=== PATIENT | male | born 1970 ===

== ENCOUNTER 2017-04-29 20:30 | Inpatient (IN) | payer MEDICARE, OTHER ==
--- NOTE | 2017-04-29 20:48 | ED PDOC ---
HPI: Abdomen Time Seen by Provider: 04/29/17 20:41 Chief Complaint (Nursing): GI Problem Chief Complaint (Provider): Abd pain History Per: Patient History/Exam Limitations: no limitations Onset/Duration Of Symptoms: Days (Sat) Outside of [place] travel?: No Current Symptoms Are (Timing): Still Present Additional Complaint(s): Pt. with abd pain, nausea, vomit, nonbloody. Diarrhea, gone now. Weakness all over. No headache. No neck pain, chest pain, dyspnea. No back pain. Has pain to bottom of amputation on right. No vision changes. Cough, white phlegm. Past Medical History Reviewed: Nursing Documentation, Vital Signs Vital Signs: Last Vital Signs Temp 98.6 F 05/01/17 16:00 Pulse 63 05/01/17 16:00 Resp 15 05/01/17 16:00 BP 128/68 05/01/17 16:00 Pulse Ox 98 05/01/17 16:00 - Medical History PMH: Anemia, Diabetes (type II), HTN, Hypercholesterolemia, Hyperlipidemia, Chronic Kidney Disease Denies: Arthritis, CHF, COPD, HIV, Hypothyroidism, Rheumatoid Arthritis - Surgical History Other surgeries: amputation R foot - Family History Family History: States: Unknown Family Hx - Living Arrangements Living Arrangements: With Family - Social History Current smoker - smoking cessation education provided: No Alcohol: None Drugs: Denies - Immunization History Hx Tetanus Toxoid Vaccination: No Hx Influenza Vaccination: No Hx Pneumococcal Vaccination: No - Home Medications Home Medications: Ambulatory Orders Medication Instructions Recorded Pentoxifylline 400 mg PO BID #0 tablet.er 07/03/16 Atenolol 50 mg PO DAILY #0 tablet 10/15/16 Ferrous Sulfate 325 mg PO BID #0 tablet 10/15/16 Gabapentin [Neurontin] 100 mg PO TID #0 cap 10/15/16 Pantoprazole Sodium [Protonix] 40 mg PO DAILY #0 ect 10/15/16 Zolpidem [Ambien] 5 mg PO HS #30 tab 10/15/16 amLODIPine [Norvasc] 5 mg PO DAILY #0 tab 10/15/16 buPROPion [Wellbutrin] 75 mg PO BID #0 tab 10/15/16 cloNIDine [Catapres] 0.3 mg PO Q8 #0 tab 10/15/16 Folic Acid 1 mg PO DAILY 12/31/16 Glipizide [Glipizide ER] 10 mg PO BID 12/01/16 Ibuprofen 800 mg PO Q8 PRN 12/01/16 Multivit,Iron,Min 5/Folic Acid 1 tab PO DAILY 12/01/16 [Strovite Forte Caplet] Omeprazole 1 tab PO DAILY 12/01/16 - Allergies Allergies/Adverse Reactions: Allergies Allergy/AdvReac Type Severity Reaction Status Date / Time Penicillins Allergy RASH Verified 10/06/16 22:07 Review of Systems ROS Statement: Except As Marked, All Systems Reviewed And Found Negative Constitutional: Positive for: Weakness Respiratory: Positive for: Cough Gastrointestinal: Positive for: Nausea, Vomiting, Abdominal Pain, Diarrhea ( gone now) Neurological: Positive for: Weakness Physical Exam - Reviewed Nursing Documentation Reviewed: Yes Vital Signs Reviewed: Yes - Physical Exam Appears: Positive for: Uncomfortable Head Exam: Positive for: ATRAUMATIC, NORMAL INSPECTION, NORMOCEPHALIC Skin: Positive for: Normal Color, Warm, DRY Eye Exam: Positive for: EOMI, Normal appearance, PERRL ENT: Positive for: Normal ENT Inspection. Negative for: Nasal Congestion, Pharyngeal Erythema, Tonsillar Exudate Neck: Positive for: Normal, Painless ROM, Supple Cardiovascular/Chest: Positive for: Regular Rate, Rhythm. Negative for: Edema Respiratory: Positive for: CNT, Normal Breath Sounds Pulses-Dorsalis Pedis (R): 2+ Gastrointestinal/Abdominal: Positive for: Bowel Sounds, Soft, Tenderness ( diffuse). Negative for: Guarding Back: Positive for: Normal Inspection. Negative for: L CVA Tenderness, R CVA Tenderness Extremity: Positive for: Other (R foot amputation; ulcer at base 2cm diameter stage 2 with no dc or erythema.). Negative for: Tenderness, Calf Tenderness Neurologic/Psych: Positive for: Alert, Oriented - Laboratory Results Result Diagrams: 05/01/17 06:20 05/01/17 06:20 Interpretation Of Abn Labs: 17.4 wbc, 2.1 lactate, 19 CO2, BUN 72 and 5.2 Cr, Ca 7.6, Phos 5.5, Mag 0.9 - ECG ECG: Positive for: Interpreted By Me, Viewed By Me ECG Rhythm: Positive for: Normal QRS, Normal ST Segment, Sinus Rhythm O2 Sat by Pulse Oximetry: 99 Pulse Ox Interpretation: Normal - Radiology X-Ray: Interpreted by Me, Viewed By Me X-Ray Interpretation: No Acute Disease - Progress ED Course And Treament: 2300: Stable. Podiatry saw pt. Does not appear to be a infected ulcer. 7: Spoke with Dr. Whitmore. Will admit ICU. Will admit to Dr. Lake as pt. pcp is Dr. Gee. Stable, feeing better, aaox3. Labetolol given. No source of infection identified yet. Will hold antibiotics. Dr. Whitmore to start meds as needed and fu on CT. Considering this not sepsis at this time. - Critical Care Total Time (In Min): 30 Documented Critical Care: Time excludes all time spent performint seperately billable procedures Disposition - Clinical Impression Clinical Impression: Acute on chronic renal insufficiency, Hypertensive urgency, Hypomagnesemia, Abdominal pain, Gastroparesis - Patient ED Disposition Is Patient to be Admitted: Yes Counseled Patient/Family Regarding: Studies Performed, Diagnosis - Disposition Disposition Time: 23:35 Condition: GUARDED - Pt Status Changed To: Hospital Disposition Of: Inpatient - Admit Certification Admit to Inpatient:: After my assessment, the patient will require hospitalization for at least two midnights. This is because of the severity of symptoms shown, intensity of services needed, and/or the medical risk in this patient being treated as an outpatient. - POA Present On Arrival: Poor Glycemic Control, Pressure Ulcer
[2017-04-29] MEDS ORDERED: Sodium Chloride 0.9% 500 ML IV STA ×2 (20:51→22:16)
[2017-04-29 21:45] LABS: BASO # 0.1 K/uL (0.0-0.2); BASO % 0.4 % (0.0-2.0); EOS % 0.2 % (0.0-4.0); HEMATOCRIT 38.8 % (35.0-51.0); LYMPH # 1.6 K/uL (1.0-4.3); LYMPH % 9.1 % (20.0-40.0); MEAN CELL VOLUME 75.4 fl (80.0-94.0); MEAN CORPUSCULAR HEMOGLOBIN 24.5 pg (27.0-31.0); MEAN CORPUSCULAR HGB CONC 32.5 g/dL (33.0-37.0); MEAN PLATELET VOLUME 8.7 fl (7.2-11.7); MONO # 0.9 K/uL (0.0-0.8); MONO % 5.2 % (0.0-10.0); NEUT # 14.8 K/uL (1.8-7.0); NEUT % 85.1 % (50.0-75.0); PLATELET COUNT 242 K/uL (130-400); RED CELL DISTRIBUTION WIDTH 15.4 % (11.5-14.5); WHITE BLOOD COUNT 17.4 K/uL (4.8-10.8)
[2017-04-29 21:49] LABS: VENOUS BLOOD GAS BASE EXCESS 1.7 mmol/L (0.0-2.0); VENOUS BLOOD GAS PCO2 30 mmHg (40-60); VENOUS BLOOD PH 7.51 (7.32-7.43)
--- NOTE | 2017-04-29 21:58 | CP.PCM.CON ---
History of Present Illness - History of Present Illness History of Present Illness: 45 y/o male patient with PMHx of CKD, osteomyelitis of the Right foot, DM II with Neuropathy, bilateral Charcot was seen at bedside ED. Patient presents with abdominal pain, nausea, vomit accompanied by non-bloody diarrhea for 2 days. Patient states that he is seeing Dr. Baez once every Saturday. Patient states that his brother changes dressing to right foot every 2 days with sterile dressing materials. Dressing to Right lower extremity appears clean dry and intact today. Patient is ambulating in a [place] boot to right lower extremity. Patient denies of any trauma or recent travel. Review of Systems - Review of Systems All systems: reviewed and no additional remarkable complaints except - Constitutional Constitutional: As Per HPI Past Patient History - Past Medical History & Family History Past Medical History?: Yes - Past Social History Alcohol: None Drugs: Denies - CARDIAC Hx Congestive Heart Failure: No Hx Hypercholesterolemia: Yes Hx Hypertension: Yes - PULMONARY Hx Chronic Obstructive Pulmonary Disease (COPD): No - NEUROLOGICAL Hx Neurological Disorder: No - HEENT Hx HEENT Problems: No - RENAL Hx Chronic Kidney Disease: Yes - ENDOCRINE/METABOLIC Hx Hypothyroidism: No - HEMATOLOGICAL/ONCOLOGICAL Hx Anemia: Yes Hx Human Immunodeficiency Virus (HIV): No - INTEGUMENTARY Hx Dermatological Problems: Yes - MUSCULOSKELETAL/RHEUMATOLOGICAL Hx Arthritis: No Hx Rheumatoid Arthritis: No - GASTROINTESTINAL Hx Gastrointestinal Disorders: No - GENITOURINARY/GYNECOLOGICAL Hx Genitourinary Disorders: No - PSYCHIATRIC Hx Psychophysiologic Disorder: No Hx Substance Use: No - SURGICAL HISTORY Hx Amputation: Yes (Partial right BTK) - ANESTHESIA Hx Anesthesia: Yes Hx Anesthesia Reactions: No Hx Malignant Hyperthermia: No Meds Allergies/Adverse Reactions: Allergies Allergy/AdvReac Type Severity Reaction Status Date / Time Penicillins Allergy RASH Verified 10/06/16 22:07 - Medications Medications: Current Medications Sodium Chloride (Sodium Chloride 0.9%) 500 mls @ 250 mls/hr IV .Q2H STA Stop: 04/29/17 22:50 Physical Exam - Head Exam Head Exam: ATRAUMATIC - Extremities Exam Additional comments: Right lower extremity exam DERM: Open wound noted to the lateral aspect of right foot measuring 3cm x 2cm x 0.3cm, wound base is mixture of fibrotic and granular, No pus drainage noted. mild serous drainage noted, no probe to bone, (-) malodor, (-) sinus track, (-) tunneling. No signs consistent with acute infection is noted from the right lower extremity. VASC: No pedal pulses, Pedal/ankle edema noted, warm to touch Ortho: history of TMA, limited ankle and STJ ROM Neuro: Absent protective sensation secondary to neuropathy - Neurological Exam Neurological exam: Alert, Oriented x3 - Psychiatric Exam Psychiatric exam: Normal Affect, Normal Mood - Skin Skin Exam: Normal Color, Warm Results - Vital Signs Recent Vital Signs: Last Vital Signs Temp 97.7 F 04/29/17 20:38 Pulse 96 H 04/29/17 20:38 Resp 20 04/29/17 20:38 BP 205/119 H 04/29/17 20:38 Pulse Ox 99 04/29/17 21:12 - Labs Result Diagrams: 04/29/17 21:30 Labs: Laboratory Results - last 24 hr 04/29/17 04/29/17 21:30 21:46 WBC 17.4 H D RBC 5.15 Hgb 12.6 D Hct 38.8 MCV 75.4 L D MCH 24.5 L MCHC 32.5 L RDW 15.4 H Plt Count 242 D MPV 8.7 Neut % (Auto) 85.1 H Lymph % (Auto) 9.1 L [place] % (Auto) 5.2 Eos % (Auto) 0.2 Baso % (Auto) 0.4 Neut # 14.8 H Lymph # 1.6 [place] # 0.9 H Eos # 0.0 Baso # 0.1 pO2 62 H VBG pH 7.51 H VBG pCO2 30 L VBG HCO3 26.2 VBG Total CO2 24.8 VBG O2 Sat (Calc) 96.2 H VBG Base Excess 1.7 VBG Potassium 6.0 H Sodium 143.0 Chloride 109.0 H Glucose 241 H Lactate 2.1 FiO2 21.0 Venous Blood Potassium 6.0 H Assessment & Plan - Assessment and Plan (Free Text) Assessment: 45 y/o male patient with Charcot right foot with diabetic ulceration to lateral ankle Plan: Patient was seen, evaluated and treated with all questions and concerns addressed labs and vitals reviewed (97.7F) discussed in detail with Dr. Baez Wound to right foot was cleansed with sterile normal saline; Betadine, DSD was applied to right foot. No clinical evidence of acute infection to Right foot wound Podiatry will follow as long as patient remains in hospital
[2017-04-29] MEDS ORDERED: Iohexol 240 (50 ml) ONE (21:59)
[2017-04-29 22:03] LABS: ALB/GLOB RATIO 0.9 (1.0-2.1); BILIRUBIN,TOTAL 0.8 mg/dl (0.2-1.3); CALCIUM 7.6 mg/dL (8.4-10.2); PHOSPHOROUS 5.5 mg/dl (2.5-4.5); TOTAL PROTEIN 9.1 G/DL (6.3-8.2)
[2017-04-29 22:08] LABS: POTASSIUM 5.3 MMOL/L (3.6-5.0)
[2017-04-29 22:13] LABS: TROPONIN I 0.019 ng/mL (0.00-0.120)
[2017-04-29] MEDS ORDERED: Magnesium Sulfate 2 gm/50 ml 2 GM/50 ML BAG ONE (22:18)
[2017-04-29 22:21] LABS: MAGNESIUM 0.9 MG/DL (1.6-2.3)
[2017-04-29 22:29] LABS: BASOPHIL 1 % (0-2); NEUTROPHIL 89 % (42-75); TOTAL CELLS COUNTED 100
[2017-04-29] MEDS ORDERED: Magnesium Sulfate 2 gm/50 ml 2 GM/50 ML BAG IVPB ONE (22:45)
[2017-04-29] MEDS ORDERED: Labetalol 5mg/ml (4ml) IVP STA (23:03)
[2017-04-29] MEDS ORDERED: Labetalol 5 mg/ml Inj 20ML IVP STA (23:09)
[2017-04-29 23:46] LABS: PARTIAL THROMBOPLASTIN TIME 26.9 SECONDS (23.3-32.5)
--- NOTE | 2017-04-29 23:48 | CP.PCM.CON ---
History of Present Illness - History of Present Illness History of Present Illness: CC: Abd pain, n/v/d HPI: This is a 45 y/o male with MHx significant for CKD4 (Cr 2.3-2.4) DM2 with LE wounds and Hx osteomyelitis, HTN, and PAD who comes in acute onset of abd pain, n/v. Vomiting is nb/nb. Had diarrhea, but that is resolved. Has generalized weakness. Symptoms ongoing since earlier today. Denies AYALA, CP, or WRIGHT. His LE wounds were evaluated by podiatry. Patient without f/c. ROS: 14 systems negative other than HPI MHx: CKD4 (Cr 2.3-2.4) DM2 with LE wounds and Hx of osteomyelitis, HTN, and PAD SHx: R foot partial amputation Allergies: PCN Medications: As per med rec Family Hx: No relevant findings Social Hx: Lives at home, no tobacco, no EtOH Past Patient History - Past Medical History & Family History Past Medical History?: Yes - Past Social History Alcohol: None Drugs: Denies - CARDIAC Hx Congestive Heart Failure: No Hx Hypercholesterolemia: Yes Hx Hypertension: Yes - PULMONARY Hx Chronic Obstructive Pulmonary Disease (COPD): No - NEUROLOGICAL Hx Neurological Disorder: No - HEENT Hx HEENT Problems: No - RENAL Hx Chronic Kidney Disease: Yes - ENDOCRINE/METABOLIC Hx Hypothyroidism: No - HEMATOLOGICAL/ONCOLOGICAL Hx Anemia: Yes Hx Human Immunodeficiency Virus (HIV): No - INTEGUMENTARY Hx Dermatological Problems: Yes - MUSCULOSKELETAL/RHEUMATOLOGICAL Hx Arthritis: No Hx Rheumatoid Arthritis: No - GASTROINTESTINAL Hx Gastrointestinal Disorders: No - GENITOURINARY/GYNECOLOGICAL Hx Genitourinary Disorders: No - PSYCHIATRIC Hx Psychophysiologic Disorder: No Hx Substance Use: No - SURGICAL HISTORY Hx Amputation: Yes (Partial right BTK) - ANESTHESIA Hx Anesthesia: Yes Hx Anesthesia Reactions: No Hx Malignant Hyperthermia: No Meds Allergies/Adverse Reactions: Allergies Allergy/AdvReac Type Severity Reaction Status Date / Time Penicillins Allergy RASH Verified 10/06/16 22:07 - Medications Medications: Current Medications Sodium Chloride (Sodium Chloride 0.9%) 500 mls @ 250 mls/hr IV .Q2H STA Stop: 04/30/17 00:15 Physical Exam - Constitutional Appears: Chronically Ill - Head Exam Head Exam: ATRAUMATIC, NORMOCEPHALIC - Eye Exam Eye Exam: EOMI, PERRL - ENT Exam ENT Exam: Mucous Membranes Dry - Neck Exam Neck exam: Positive for: Full Rom - Respiratory Exam Respiratory Exam: Clear to Auscultation Bilateral, NORMAL BREATHING PATTERN - Cardiovascular Exam Cardiovascular Exam: REGULAR RHYTHM, +S1, +S2 - GI/Abdominal Exam GI & Abdominal Exam: Normal Bowel Sounds, Soft, Tenderness - Extremities Exam Extremities exam: Positive for: full ROM Additional comments: R foot/ankle DM ulcer under dressing - Neurological Exam Neurological exam: Alert, CN II-XII Intact, Oriented x3 - Psychiatric Exam Psychiatric exam: Normal Affect, Normal Mood - Skin Skin Exam: Dry, Warm Results - Vital Signs Recent Vital Signs: Last Vital Signs Temp 97.7 F 04/29/17 20:38 Pulse 76 04/29/17 23:20 Resp 17 04/29/17 23:20 BP 198/120 H 04/29/17 23:20 Pulse Ox 99 04/29/17 23:39 - Labs Result Diagrams: 04/29/17 21:30 04/29/17 21:30 - EKG Data EKG Interpreted by: Myself EKG shows normal: Sinus rhythm Rate: Normal - EKG Data When Compared to Previous EKG: No Significant Change - Imaging and Cardiology CT scan - abdomen Status: Pending Assessment & Plan (1) Gastroparesis Assessment and Plan: 46 y/o male with multiple conditions who is presenting with n/v, ?diarrhea -- likely diabetic gastroparesis. No obvious evidence of GI infection. 1) Gastroparesis -NPO -IVF -Will give Zofran and Reglan IV PRN for now -CT pending 2) Elevated WC -- no clear evidence of infection; may be reactive -Will monitor, if any sign of infection, further w/u and antibiotics 3) DM2 + foot ulcer -Foot ulcer being followed by podiatry -SSI with accuchecks for now, given NPO 4) HTN -- acutely worse, likely due to persistent n/v -Control n/v -Labetolol IV PRN for elevation > 190 5) DVT PPx -- Hold for right now, until BP normalized; difficult to do LE SCDs because of ulcers Status: Acute (2) Leukocytosis Status: Acute (3) Diabetic foot ulcer Status: Acute (4) Acute on chronic renal insufficiency Status: Acute (5) Hyperlipidemia Status: Chronic (6) Hypertension Status: Chronic (7) Type 2 diabetes mellitus Status: Chronic (8) DVT prophylaxis Status: Acute
[2017-04-30] MEDS ORDERED: Nicardipine 20 MG/200 ML 20 MG/200 ML BAG IV ONE ×2 (00:01→23:51)
[2017-04-30] MEDS ORDERED: Sodium Chloride 0.9% 1,000 ML IV SCH (00:15)
--- NOTE | 2017-04-30 00:49 | CT ---
EXAM: CT Abdomen and Pelvis With Intravenous Contrast CLINICAL HISTORY: 46 years old, male; Pain; Abdominal pain; Generalized TECHNIQUE: Axial computed tomography images of the abdomen and pelvis with intravenous contrast. This CT exam was performed using one or more of the following dose reduction techniques: automated exposure control, adjustment of the mA and/or kV according to patient size, and/or use of iterative reconstruction technique. Coronal and sagittal reformatted images were created and reviewed. EXAM DATE/TIME: Exam ordered 04/29/2017 8:51 PM COMPARISON: CT - ABD PELVIS PO CONTRAST ONLY 10/07/2016 1:54:41 AM FINDINGS: Lower thorax: Air in the esophagus in keeping with reflux. Moderate hiatus hernia. There is a small pericardial effusion which is decreased compared to study of October 2016. Calcifications in keeping with coronary artery disease. The previous finding at the left lung base is no longer evident. No masses are visualized in the bilateral lungs in their included portions. ABDOMEN: Liver: There has been interval decrease in size of the liver which now measures 22.6 cm whereas previously it was over 26 cm. This represents improving but persistent hepatomegaly. Gallbladder and bile ducts: Unremarkable. No calcified stones. No ductal dilation. Pancreas: Unremarkable. No mass. No ductal dilation. Spleen: Unremarkable. No splenomegaly. Adrenals: Unremarkable. No mass. Kidneys and ureters: There is extensive bilateral perinephric stranding, correlation for infection is recommended, this finding was also present on the previous examination. There is no hydronephrosis seen. Differential does include passage of a renal stone. No ureteral stones are seen noting that punctate stones or noncalcified stones may not be well seen on CT. Stomach and bowel: No abdominal wall hernias containing bowel. Oral contrast has reached the pelvis, there is no evidence of pathologic bowel dilatation. Noted incidentally that there is a mobile cecal mesentery, at the present time there is no evidence to suggest bowel volvulus. There is slightly increased fluid content in unremarkable caliber small bowel, enteritis is a consideration. Seen coronal image 62 and adjacent, evaluation of the duodenum is noted and duodenal wall thickening is medial border near the pancreas, consider followup. Appendix: No findings to suggest acute appendicitis. PELVIS: Bladder: Bladder is partly collapsed limiting evaluation. Reproductive: Prostate 5.0 cm, prominent, this is increased from previous and laboratory correlation and consideration of further evaluation is recommended. There is suggestion coronal image 84 of some focal hypoattenuation in the right seminal vesicle. ABDOMEN and PELVIS: Intraperitoneal space: Unremarkable. No free air. No significant fluid collection. Bones/joints: No acute fracture. No dislocation. Soft tissues: See above. Vasculature: Scattered atherosclerotic calcifications. No abdominal aortic aneurysm. Lymph nodes: --Previous study dated October 07, 2016, noting that that study described adenopathy in the right iliac/inguinal distribution, details of any interval treatment or a pathology reports are not available and in particular it is not known whether neoplasm has been documented or treated in the interim--. There remains right external iliac adenopathy, however this is greatly diminished compared to the study of October 2016. A round (suspicious) morphology right inguinal node is also identified. Left external iliac nodes do not meet size criteria for pathologic enlargement. Para-aortic nodes and aortocaval nodes best seen in the coronal plane are not definitely increased. IMPRESSION: Persistent bilateral perinephric stranding , no ureteral calculi visualized. Correlation for infection or inflammatory pathology again recommended. Interval improvement in the previously seen severe right external iliac adenopathy although with persistence of some enlarged nodes. Please correlate with interim treatments and/or diagnostic procedures which are not available at this time. Prominent prostate which is increased in size from the study of approximately 6 months previous. Question of hypoattenuation in the right seminal vesicle. Evaluation for possibility of neoplasm or infection is recommended. Duodenum as above. Improvement in hepatomegaly. Other findings as above. Please note that the absence of intravenous contrast greatly limits evaluation of the parenchymal organs and paucity of oral contrast throughout the majority of the GI tract does limit evaluation of the GI tract.
[2017-04-30 05:31] LABS: BASO # 0.1 K/uL (0.0-0.2); BASO % 0.7 % (0.0-2.0); EOS # 0.1 K/uL (0.0-0.7); EOS % 0.3 % (0.0-4.0); HEMATOCRIT 37.7 % (35.0-51.0); LYMPH # 2.1 K/uL (1.0-4.3); LYMPH % 11.4 % (20.0-40.0); MEAN CELL VOLUME 76.5 fl (80.0-94.0); MEAN CORPUSCULAR HEMOGLOBIN 24.4 pg (27.0-31.0); MEAN PLATELET VOLUME 8.8 fl (7.2-11.7); MONO % 5.5 % (0.0-10.0); NEUT % 82.1 % (50.0-75.0); NRBC % 0.1 % (0.0-0.0); RED CELL DISTRIBUTION WIDTH 15.7 % (11.5-14.5); WHITE BLOOD COUNT 18.3 K/uL (4.8-10.8)
[2017-04-30 05:47] LABS: CALCIUM 7.1 mg/dL (8.4-10.2); POTASSIUM 4.3 MMOL/L (3.6-5.0)
--- NOTE | 2017-04-30 08:01 | CARD ---
APPROVED REPORT EKG Measurement Heart [id number] <Conclusion> Normal sinus rhythm Possible Left atrial enlargement Borderline ECG
[2017-04-30] MEDS: Pantoprazole 40 mg EC Tab PO SCH (08:22)
[2017-04-30 08:31] LABS: RBC URINE 19 /hpf (0-3); URINE BACTERIA RARE (<OCC); URINE BILIRUBIN NEGATIVE (NEGATIVE); URINE BLOOD MODERATE (NEGATIVE); URINE COLOR YELLOW (YELLOW); URINE GLUCOSE (UA) >=500 mg/dL (Normal); URINE KETONE NEGATIVE (NEGATIVE); URINE LEUKOCYTE ESTERASE NEG Leu/uL (Negative); URINE PROTEIN >=500 mg/dL (NEGATIVE); URINE UROBILINOGEN 0.2-1.0 mg/dL (0.2-1.0); WBC URINE 2 /hpf (0-5)
--- NOTE | 2017-04-30 09:24 | RAD ---
HISTORY: Sepsis Patient COMPARISON: 12/01/2016. FINDINGS: LUNGS: The lungs are clear. PLEURA: No significant pleural effusion identified, no pneumothorax apparent. CARDIOVASCULAR: There is persistent mild cardiomegaly. OSSEOUS STRUCTURES: No significant abnormalities. VISUALIZED UPPER ABDOMEN: Normal. OTHER FINDINGS: None. IMPRESSION: No active pulmonary disease.
--- NOTE | 2017-04-30 11:20 | CP.PCM.PN ---
Subjective - Date & Time of Evaluation Date of Evaluation: 04/30/17 Time of Evaluation: 11:17 - Subjective Subjective: 46 year old male was seen resting at bedside for right lower extremity diabetic ulcer. Patient denies any pain to his right lower extremity. Patient states he has some nausea. Objective - Vital Signs/Intake and Output Vital Signs (last 24 hours): Temp Pulse Resp BP Pulse Ox 98.7 F 86 12 157/91 H 100 04/30/17 07:43 04/30/17 10:00 04/30/17 10:00 04/30/17 10:00 04/30/17 10:00 Intake and Output: 04/30/17 04/30/17 06:59 18:59 Intake Total 120 Output Total 100 400 Balance -100 -280 - Medications Medications: Current Medications Amlodipine Besylate (Norvasc) 5 mg PO DAILY [facility] Atenolol (Tenormin) 50 mg PO DAILY [facility] Last Admin: 04/30/17 08:22 Dose: 50 mg Bupropion HCl (Wellbutrin) 75 mg PO BID [facility] Last Admin: 04/30/17 08:23 Dose: 75 mg Clonidine HCl (Catapres) 0.1 mg PO BID [facility] Gabapentin (Neurontin) 100 mg PO TID [facility] Last Admin: 04/30/17 08:22 Dose: 100 mg Sodium Chloride (Sodium Chloride 0.9%) 1,000 mls @ 75 mls/hr IV [id number] [facility] Stop: 04/30/17 13:34 Last Admin: 04/30/17 02:23 Dose: 75 mls/hr Metoclopramide HCl (Reglan) 10 mg IVP Q6H PRN PRN Reason: Nausea/Vomiting Last Admin: 04/30/17 02:22 Dose: 10 mg Morphine Sulfate (Morphine) 2 mg IVP Q4H PRN PRN Reason: Pain, moderate (4-7) Morphine Sulfate (Morphine) 4 mg IVP Q4H PRN PRN Reason: Pain, severe (8-10) Morphine Sulfate (Morphine) 1 mg IVP Q4 PRN PRN Reason: Pain, Mild (1-3) Ondansetron HCl (Zofran Inj) 4 mg IVP Q6H PRN PRN Reason: Nausea/Vomiting Last Admin: 04/30/17 09:59 Dose: 4 mg Pantoprazole Sodium (Protonix Ec Tab) 40 mg PO DAILY [facility] Last Admin: 04/30/17 08:22 Dose: 40 mg Pentoxifylline (Pentoxil) 400 mg PO BID [facility] Last Admin: 04/30/17 08:22 Dose: 400 mg - Labs Labs: 04/30/17 04:30 04/30/17 04:30 PT 11.5 SECONDS (9.6-11.2) H 04/29/17 21:30 INR 1.11 (0.92-1.08) H 04/29/17 21:30 APTT 26.9 SECONDS (23.3-32.5) 04/29/17 21:30 - Extremities Exam Additional comments: Right lower extremity focused exam: VASC: No pedal pulses noted, edema noted to the right foot/ankle, warm to touch DERM: Open wound noted to the lateral aspect of right foot measuring approximately 3cm x 2cm x 0.3cm, base is a mixture of granular and fibrotic tissue. No purulent drainage noted. mild serous drainage noted, no probe to bone , no malodor, no sinus track, no tunneling. No signs consistent with acute infection is noted from the right lower extremity. Ortho: history of TMA, limited ankle and STJ ROM Neuro: absent protective sensation secondary to neuropathy - Neurological Exam Neurological Exam: Alert, Awake, Oriented x3 - Psychiatric Exam Psychiatric exam: Normal Affect, Normal Mood Assessment and Plan - Assessment and Plan (Free Text) Assessment: 45 y/o male patient with Charcot right foot with diabetic ulceration to lateral ankle Plan: Patient examined and evaluated chart,labs and vitals reviewed (98.7F) discussed in detail with Dr. Baez right foot wound dressed with Betadine, DSD No clinical evidence of acute infection to Right foot wound Podiatry will follow as long as patient remains in hospital
[2017-04-30] MEDS ORDERED: Povidone Iodine Topical 10% Sol TOP ONE (11:27)
[2017-04-30] MEDS ORDERED: Povidone Iodine Topical 10% Sol ONE (11:32)
--- NOTE | 2017-04-30 15:06 | RAD ---
PROCEDURE: Right Ankle Radiographs. HISTORY: amputation hx COMPARISON: 07/10/2016. FINDINGS: BONES: Postoperative findings following an midfoot amputation. Remaining neuropathic/ Charcot foot and ankle. JOINTS: Progressive erosive changes primarily affecting talotibial and talofibular joint. SOFT TISSUES: Persistent soft tissue changes with foci of deep ulceration. OTHER FINDINGS: None. IMPRESSION: Findings suggestive of osteomyelitis involving right ankle.
--- NOTE | 2017-04-30 16:04 | CP.CCUPN ---
CCU Subjective - Physician Review Subjective (Free Text): 04/30/17 16:18 The Patient was seen and examined at the bedside in the ER, Medical records reviewed, all clinical/lab/hemodynamic/radiographic data were reviewed and management issues were discussed and formulated, Events reviewed Mr Hussein is a 45 years old male with PMHx significant for HTN, PVD CKD4 (Cr 2.3-2.4) DM2 with LE wounds and Hx osteomyelitis. who presented to Emergency department with acute onset of abdominal pain, N/V and generalized weakness, Symptoms of one day duration. He was found to have BP of 205/119, admitted to the ICU with Hypertensive urgency and Gastroparesis Started on cardene drip, and this morning his home medications resumed and now off the drip and BP fairly controlled. CCU Objective - Vital Signs / Intake & Output Vital Signs (Last 4 hours): Vital Signs Pulse Resp BP Pulse Ox 04/30/17 14:57 80 188/108 H 04/30/17 14:00 81 10 L 188/106 H 95 Intake and Output (Last 8hrs): Intake & Output 04/30/17 04/30/17 04/30/17 06:59 14:59 22:59 Intake Total 360 Output Total 100 800 Balance -100 -440 Intake: Oral 360 Output: Urine 800 Urine, Voided 800 Emesis 100 - Physical Exam Head: Positive for: Atraumatic, Normocephalic Pupils: Positive for: PERRL. Negative for: Sluggish, Non-Reactive Extroacular Muscles: Positive for: EOMI Conjunctiva: Positive for: Normal Mouth: Positive for: Moist Mucous Membranes Nose (Internal): Positive for: Normal Inspection Neck: Positive for: Normal Range of Motion, Trachea Midline. Negative for: Meningeal Signs, MIDLINE TENDERNESS, Paraspinal Tenderness, JVD, Lymphadenopathy , Bruit, Other Respiratory/Chest: Positive for: Clear to Auscultation, Good Air Exchange. Negative for: Respiratory Distress, Accessory Muscle Use Cardiovascular: Positive for: Regular Rate and Rhythm, Normal S1, S2. Negative for: Murmurs, Irregular Rhythm, Peripheal Pulses Present, Tachycardic, Bradycardic Abdomen: Positive for: Normal Bowel Sounds. Negative for: Tenderness, Distention, Peritoneal Signs Upper Extremity: Positive for: Normal Inspection, NORMAL PULSES, Capillary Refill < 2s. Negative for: Cyanosis, Edema Lower Extremity: Positive for: Normal Inspection, NORMAL PULSES, Capillary Refill < 2 s. Negative for: Edema, CALF TENDERNESS Neurological: Positive for: GCS=15, CN II-XII Intact, Speech Normal, Motor Func Grossly Intact, Normal Sensory Function Psychiatric: Positive for: Alert, Oriented x 3, Normal Insight, Normal Concentration, Normal Affect, Normal Mood. Negative for: Anxious, Agitated - Medications Active Medications: Active Medications Generic Name Dose Route Start Last Admin Trade Name Freq PRN Reason Stop Dose Admin Amlodipine Besylate 5 mg 04/30/17 11:15 04/30/17 11:34 Norvasc PO 5 mg DAILY BAHSIR Administration Atenolol 50 mg 04/30/17 09:00 04/30/17 08:22 Tenormin PO 50 mg DAILY BASHIR Administration Bupropion HCl 75 mg 04/30/17 09:00 04/30/17 08:23 Wellbutrin PO 75 mg BID BASHIR Administration Clonidine HCl 0.3 mg 04/30/17 14:10 04/30/17 14:57 Catapres PO 0.3 mg TID BASHIR Administration Gabapentin 100 mg 04/30/17 09:00 04/30/17 14:16 Neurontin PO Not Given TID [facility] Heparin Sodium (Porcine) 5,000 units 04/30/17 11:30 04/30/17 13:18 Heparin SC 5,000 units Q12 BASHIR Administration Protocol Insulin Human Regular 1 units 04/30/17 16:30 Humulin R SC ACHS [facility] Protocol Metoclopramide HCl 10 mg 04/30/17 00:05 04/30/17 13:14 Reglan IVP 10 mg Q6H PRN Administration Nausea/Vomiting Morphine Sulfate 2 mg 04/30/17 00:05 Morphine IVP Q4H PRN Pain, moderate (4-7) Morphine Sulfate 4 mg 04/30/17 00:05 Morphine IVP Q4H PRN Pain, severe (8-10) Morphine Sulfate 1 mg 04/30/17 00:10 Morphine IVP Q4 PRN Pain, Mild (1-3) Ondansetron HCl 4 mg 04/30/17 00:05 04/30/17 09:59 Zofran Inj IVP 4 mg Q6H PRN Administration Nausea/Vomiting Pantoprazole Sodium 40 mg 04/30/17 09:00 04/30/17 08:22 Protonix Ec Tab PO 40 mg DAILY BASHIR Administration Pentoxifylline 400 mg 04/30/17 09:00 04/30/17 08:22 Pentoxil PO 400 mg BID BASHIR Administration - Patient Studies Lab Studies: Lab Studies 04/30/17 04/30/17 04/30/17 Range/Units 11:01 07:08 04:30 WBC (4.8-10.8) K/uL RBC (4.40-5.90) Mil/uL Hgb (12.0-18.0) g/dL Hct (35.0-51.0) % MCV (80.0-94.0) fl MCH (27.0-31.0) pg MCHC (33.0-37.0) g/dL RDW (11.5-14.5) % Plt Count (130-400) K/uL MPV (7.2-11.7) fl Neut % (Auto) (50.0-75.0) % Lymph % (Auto) (20.0-40.0) % Luce % (Auto) (0.0-10.0) % Eos % (Auto) (0.0-4.0) % Baso % (Auto) (0.0-2.0) % Neut # (1.8-7.0) K/uL Lymph # (1.0-4.3) K/uL Luce # (0.0-0.8) K/uL Eos # (0.0-0.7) K/uL Baso # (0.0-0.2) K/uL Sodium 145 (132-148) mmol/l Potassium 4.3 (3.6-5.0) MMOL/L Chloride 110 H (98-107) mmol/L Carbon Dioxide 21 L (22-30) mmol/L Anion Gap 18 (10-20) BUN 69 H (9-20) mg/dl Creatinine 5.3 H (0.8-1.5) mg/dL Est GFR ( Amer) 14 Est GFR (Non-Af Amer) 12 POC Glucose (mg/dL) 231 H 214 H (65-110) mg/dL Random Glucose 228 H (75-110) mg/dL Calcium 7.1 L (8.4-10.2) mg/dL 04/30/17 04/30/17 Range/Units 04:30 00:20 WBC 18.3 H (4.8-10.8) K/uL RBC 4.93 (4.40-5.90) Mil/uL Hgb 12.1 (12.0-18.0) g/dL Hct 37.7 (35.0-51.0) % MCV 76.5 L (80.0-94.0) fl MCH 24.4 L (27.0-31.0) pg MCHC 32.0 L (33.0-37.0) g/dL RDW 15.7 H (11.5-14.5) % Plt Count 237 (130-400) K/uL MPV 8.8 (7.2-11.7) fl Neut % (Auto) 82.1 H (50.0-75.0) % Lymph % (Auto) 11.4 L (20.0-40.0) % Luce % (Auto) 5.5 (0.0-10.0) % Eos % (Auto) 0.3 (0.0-4.0) % Baso % (Auto) 0.7 (0.0-2.0) % Neut # 15.0 H (1.8-7.0) K/uL Lymph # 2.1 (1.0-4.3) K/uL Luce # 1.0 H (0.0-0.8) K/uL Eos # 0.1 (0.0-0.7) K/uL Baso # 0.1 (0.0-0.2) K/uL Sodium (132-148) mmol/l Potassium (3.6-5.0) MMOL/L Chloride (98-107) mmol/L Carbon Dioxide (22-30) mmol/L Anion Gap (10-20) BUN (9-20) mg/dl Creatinine (0.8-1.5) mg/dL Est GFR ( Amer) Est GFR (Non-Af Amer) POC Glucose (mg/dL) 197 H (65-110) mg/dL Random Glucose (75-110) mg/dL Calcium (8.4-10.2) mg/dL Laboratory Results - last 24 hr 04/30/17 04/30/17 04/30/17 00:20 04:30 04:30 WBC 18.3 H RBC 4.93 Hgb 12.1 Hct 37.7 MCV 76.5 L MCH 24.4 L MCHC 32.0 L RDW 15.7 H Plt Count 237 MPV 8.8 Neut % (Auto) 82.1 H Lymph % (Auto) 11.4 L Luce % (Auto) 5.5 Eos % (Auto) 0.3 Baso % (Auto) 0.7 Neut # 15.0 H Lymph # 2.1 Luce # 1.0 H Eos # 0.1 Baso # 0.1 Sodium 145 Potassium 4.3 Chloride 110 H Carbon Dioxide 21 L Anion Gap 18 BUN 69 H Creatinine 5.3 H Est GFR ( Amer) 14 Est GFR (Non-Af Amer) 12 POC Glucose (mg/dL) 197 H Random Glucose 228 H Calcium 7.1 L 04/30/17 04/30/17 07:08 11:01 WBC RBC Hgb Hct MCV MCH MCHC RDW Plt Count MPV Neut % (Auto) Lymph % (Auto) Luce % (Auto) Eos % (Auto) Baso % (Auto) Neut # Lymph # Luce # Eos # Baso # Sodium Potassium Chloride Carbon Dioxide Anion Gap BUN Creatinine Est GFR ( Amer) Est GFR (Non-Af Amer) POC Glucose (mg/dL) 214 H 231 H Random Glucose Calcium Fingerstick Blood Sugar Results: 191 Review of Systems - Cardiovascular Cardiovascular: absent: As Per HPI, Acrocyanosis, Chest Pain, Chest Pain at Rest , Chest Pain with Activity, Claudication, Diaphoresis, Dyspnea, Dyspnea on Exertion, Edema, Irregular Heart Rhythm, Pain Radiating to Arm/Neck/Jaw, Leg Edema, Leg Ulcers, Lightheadedness, Orthopnea, Palpitations, Paroxysmal Nocturnal Dyspnea, Pedal Edema, Radiating Pain, Rapid Heart Rate, Slow Heart Rate, Syncope, Other, UNREMARKABLE - Respiratory Respiratory: absent: As Per HPI, Cough, Dyspnea, Hemoptysis, Dyspnea on Exertion , Wheezing, Snoring, Stridor, Pain on Inspiration, Chest Congestion, Excessive Mucous Production, Change in Mucous Color, Pain with Coughing, Other, UNREMARKABLE - Gastrointestinal Gastrointestinal: Abdominal Pain, Dyspepsia Critical Care Progress Note - Extremities/Vascular Does the Patient have a Central Venous Catheter?: No Does the Patient need a Central Venous Catheter?: No Does the Patient have a Adkins Catheter?: No Does the Patient need a Adkins Catheter?: No - Nutrition Nutrition: Nutrition Category Date Time Status Heart Healthy Diet [DIET] Diets 04/30/17 Breakfast Active Assessment/Plan (1) Hypertensive urgency Current Visit: Yes Status: Acute Comment: Resume homes medication (Norvasc, Clonidine and Atenolol) Wean Cardene drip Labetolol IV PRN (2) ESRD (end stage renal disease) on dialysis Current Visit: Yes Status: Acute (3) Gastroparesis Current Visit: Yes Status: Acute Comment: Clear liquid, advance as tolerate IVF Rrglan PRN Zofran F/up official ABD CT (4) Diabetic foot ulcer Current Visit: No Status: Acute Comment: Podiatry consult Wound care Pain control (5) Hyperglycemia due to type 1 diabetes mellitus Current Visit: No Status: Acute Comment: Tight glycemic control, RISS coverage (6) DVT prophylaxis Current Visit: No Status: Acute Comment: Start SQ Heparin
[2017-04-30] MEDS: Insulin Regular 100 units/ml SC SCH ×2 (16:45→21:53)
[2017-05-01] MEDS: Sodium Chloride 0.9% 1,000 ML IV SCH ×2 (02:37→16:34)
[2017-05-01] MEDS: Insulin Regular 100 units/ml SC SCH ×4 (06:37→22:08)
--- NOTE | 2017-05-01 06:52 | CP.PCM.PN ---
Subjective - Date & Time of Evaluation Date of Evaluation: 05/01/17 Time of Evaluation: 06:52 - Subjective Subjective: 46 year old male was seen resting at bedside for right lower extremity diabetic ulcer. Patient denies any pain to his right lower extremity. Patient states feels better today. Objective - Vital Signs/Intake and Output Vital Signs (last 24 hours): Temp Pulse Resp BP Pulse Ox 97.8 F 67 14 131/76 97 05/01/17 04:00 05/01/17 05:00 05/01/17 05:00 05/01/17 05:00 05/01/17 05:00 Intake and Output: 04/30/17 05/01/17 18:59 06:59 Intake Total 1500 1030 Output Total 1000 1100 Balance 500 -70 - Medications Medications: Current Medications Amlodipine Besylate (Norvasc) 5 mg PO DAILY [facility] Last Admin: 04/30/17 11:34 Dose: 5 mg Atenolol (Tenormin) 50 mg PO DAILY [facility] Last Admin: 04/30/17 08:22 Dose: 50 mg Bupropion HCl (Wellbutrin) 75 mg PO BID [facility] Last Admin: 04/30/17 17:19 Dose: 75 mg Clonidine HCl (Catapres) 0.3 mg PO TID [facility] Last Admin: 04/30/17 16:47 Dose: 0.3 mg Gabapentin (Neurontin) 100 mg PO TID [facility] Last Admin: 04/30/17 16:46 Dose: 100 mg Heparin Sodium (Porcine) (Heparin) 5,000 units SC Q12 [facility] PRN Reason: Protocol Last Admin: 04/30/17 20:56 Dose: 5,000 units Sodium Chloride (Sodium Chloride 0.9%) 1,000 mls @ 75 mls/hr IV .[id number] [facility] Stop: 05/02/17 02:35 Last Admin: 05/01/17 02:37 Dose: 75 mls/hr Insulin Human Regular (Humulin R) 1 units SC ACHS [facility] PRN Reason: Protocol Last Admin: 05/01/17 06:37 Dose: 2 u Metoclopramide HCl (Reglan) 10 mg IVP Q6H PRN PRN Reason: Nausea/Vomiting Last Admin: 04/30/17 13:14 Dose: 10 mg Morphine Sulfate (Morphine) 2 mg IVP Q4H PRN PRN Reason: Pain, moderate (4-7) Morphine Sulfate (Morphine) 4 mg IVP Q4H PRN PRN Reason: Pain, severe (8-10) Morphine Sulfate (Morphine) 1 mg IVP Q4 PRN PRN Reason: Pain, Mild (1-3) Ondansetron HCl (Zofran Inj) 4 mg IVP Q6H PRN PRN Reason: Nausea/Vomiting Last Admin: 04/30/17 16:43 Dose: 4 mg Pantoprazole Sodium (Protonix Ec Tab) 40 mg PO DAILY [facility] Last Admin: 04/30/17 08:22 Dose: 40 mg Pentoxifylline (Pentoxil) 400 mg PO BID [facility] Last Admin: 04/30/17 17:19 Dose: 400 mg - Labs Labs: 04/30/17 04:30 04/30/17 04:30 PT 11.5 SECONDS (9.6-11.2) H 04/29/17 21:30 INR 1.11 (0.92-1.08) H 04/29/17 21:30 APTT 26.9 SECONDS (23.3-32.5) 04/29/17 21:30 - Constitutional Appears: No Acute Distress - Extremities Exam Additional comments: Right lower extremity focused exam: VASC: No pedal pulses noted, edema noted to the right foot/ankle, warm to touch DERM: Open wound noted to the lateral aspect of right foot measuring approximately 3 cm x 2 cm x 0.3cm, with a granular base, periwound is hyperkeratotic. No purulent drainage noted. mild serous drainage noted, no probe to bone, no malodor, no sinus track, no tunneling. No signs consistent with acute infection is noted from the right lower extremity. Ortho: history of TMA, limited ankle and STJ ROM Neuro: absent protective sensation secondary to neuropathy - Neurological Exam Neurological Exam: Alert, Awake, Oriented x3 - Psychiatric Exam Psychiatric exam: Normal Affect, Normal Mood Assessment and Plan - Assessment and Plan (Free Text) Assessment: 45 y/o male patient with Charcot right foot with diabetic ulceration to lateral ankle Plan: Patient examined and evaluated chart,labs and vitals reviewed (97.8F) discussed in detail with Dr. Medina right foot wound dressed with Betadine, DSD No clinical evidence of acute infection to Right foot wound Podiatry will follow patient in house patient to follow up with Dr. Medina in [facility] upon d/c
[2017-05-01 06:56] LABS: MEAN CELL VOLUME 76.7 fl (80.0-94.0); MEAN CORPUSCULAR HEMOGLOBIN 24.2 pg (27.0-31.0); MEAN CORPUSCULAR HGB CONC 31.5 g/dL (33.0-37.0); RED CELL DISTRIBUTION WIDTH 15.6 % (11.5-14.5); WHITE BLOOD COUNT 11.6 K/uL (4.8-10.8)
[2017-05-01 07:18] LABS: BILIRUBIN,TOTAL 0.5 mg/dl (0.2-1.3); CALCIUM 7.2 mg/dL (8.4-10.2); POTASSIUM 4.2 MMOL/L (3.6-5.0)
[2017-05-01 07:19] LABS: ALB/GLOB RATIO 0.8 (1.0-2.1)
[2017-05-01] MEDS: Pantoprazole 40 mg EC Tab PO SCH ×2 (08:24→20:30)
--- NOTE | 2017-05-01 08:56 | HP ---
CHIEF COMPLAINT: Abdominal pain, nausea, vomiting and diarrhea. HISTORY OF PRESENT ILLNESS: This is a 46-year-old male, known case of left lower extremity osteomyel itis wound, hypertension, peripheral arterial disease and renal insufficiency who was having abdomina l pain, nausea and vomiting for a few days before admission, so patient was brought to Emergency Room and was admitted for further management. REVIEW OF SYSTEMS: Positive for abdominal pain, nausea, vomiting and diarrhea. Otherwise is negativ e for headache, dizziness, syncope, loss of consciousness, chest pain, shortness of breath, any new j oint or extremity pain. All other organ systems unremarkable. PAST MEDICAL HISTORY: Significant for peripheral arterial disease, hypertension, osteomyelitis and r enal insufficiency. PAST SURGICAL HISTORY: Remarkable for foot amputation on left. PERSONAL HISTORY: The patient is currently a nonsmoker, nondrinker, no substance abuse. MEDICATIONS: The patient is on multiple medications, which is as per reconciliation sheet, which was reviewed in order. ALLERGIES: THE PATIENT IS ALLERGIC TO PENICILLIN. FAMILY HISTORY: Noncontributory. PHYSICAL EXAMINATION: GENERAL: Well-built, well-nourished, overweight, male, in no acute distress. VITAL SIGNS: Temperature afebrile, pulse 70, respirations 18, blood pressure 160/97. HEENT: Pupils reacting to light. No JVD, no thyromegaly, no lymphadenopathy, no nystagmus. Normoce phalic, atraumatic skull. HEART: S1, S2 normal, regular. No significant murmur, gallop or rub is heard. LUNGS: Shows good bilateral air exchange. No rales or rhonchi. ABDOMEN: Soft, nontender, no organomegaly, no fluid. Bowel sounds are plus. No sign of acute abdom en. No guarding, no rigidity, no rebound. EXTREMITIES: The patient is status post left amputation. No edema, no calf swelling, no tenderness, no acute ischemia. CENTRAL NERVOUS SYSTEM: Essentially unchanged and there is no sign of any acute gross focal, motor o r sensory neurological deficit. DIAGNOSTIC DATA: Available reviewed. Telemetry monitoring does not reveal significant arrhythmia. Urinalysis is unremarkable. Sodium 142, potassium 5.2, chloride 108, bicarb 20, BUN 72, creatinine 5 .2. SMA-12 shows magnesium of 0.9. Otherwise, SMA-12 is unremarkable. WBC 17.4, hemoglobin 12.6, h ematocrit 38, platelets 242. Abdominal CAT scan shows perinephric stranding on both sides . Ankle x-ray suggestive of right ankle osteomyelitis. Chest x-ray is clear. ADMITTING IMPRESSION: Intractable gastroparesis, rule out gastroenteritis, type 2 diabetes with hype rglycemia, osteomyelitis of foot, hypertension. PLAN: As ordered. Case and plan discussed with patient. Joel Lake MD cc: [phone] TT: 05/01/2017 08:55:31 en
--- NOTE | 2017-05-01 10:07 | CP.PCM.PN ---
Subjective - Date & Time of Evaluation Date of Evaluation: 05/01/17 Time of Evaluation: 10:01 - Subjective Subjective: d/w attending. no overnight events. tolerating PO. denies pain currently. Objective - Vital Signs/Intake and Output Vital Signs (last 24 hours): Temp Pulse Resp BP Pulse Ox 98.5 F 64 18 165/96 H 98 05/01/17 08:00 05/01/17 09:14 05/01/17 08:00 05/01/17 09:14 05/01/17 08:00 Intake and Output: 05/01/17 05/01/17 06:59 18:59 Intake Total 1180 240 Output Total 1100 500 Balance 80 -260 - Medications Medications: Current Medications Amlodipine Besylate (Norvasc) 10 mg PO DAILY [facility] Atenolol (Tenormin) 50 mg PO DAILY [facility] Last Admin: 05/01/17 08:24 Dose: 50 mg Bupropion HCl (Wellbutrin) 75 mg PO BID [facility] Last Admin: 05/01/17 08:24 Dose: 75 mg Clonidine HCl (Catapres) 0.3 mg PO TID [facility] Last Admin: 05/01/17 09:14 Dose: 0.3 mg Gabapentin (Neurontin) 100 mg PO TID [facility] Last Admin: 05/01/17 08:23 Dose: 100 mg Heparin Sodium (Porcine) (Heparin) 5,000 units SC Q12 [facility] PRN Reason: Protocol Last Admin: 05/01/17 08:25 Dose: 5,000 units Sodium Chloride (Sodium Chloride 0.9%) 1,000 mls @ 75 mls/hr IV .[id number] [facility] Stop: 05/02/17 02:35 Last Admin: 05/01/17 02:37 Dose: 75 mls/hr Insulin Human Regular (Humulin R) 1 units SC ACHS [facility] PRN Reason: Protocol Last Admin: 05/01/17 06:37 Dose: 2 u Metoclopramide HCl (Reglan) 10 mg IVP Q6H PRN PRN Reason: Nausea/Vomiting Last Admin: 04/30/17 13:14 Dose: 10 mg Morphine Sulfate (Morphine) 2 mg IVP Q4H PRN PRN Reason: Pain, moderate (4-7) Ondansetron HCl (Zofran Inj) 4 mg IVP Q6H PRN PRN Reason: Nausea/Vomiting Last Admin: 04/30/17 16:43 Dose: 4 mg Pantoprazole Sodium (Protonix Ec Tab) 40 mg PO DAILY [facility] Last Admin: 05/01/17 08:24 Dose: 40 mg Pentoxifylline (Pentoxil) 400 mg PO BID [facility] Last Admin: 05/01/17 08:24 Dose: 400 mg - Labs Labs: 05/01/17 06:20 05/01/17 06:20 PT 11.5 SECONDS (9.6-11.2) H 04/29/17 21:30 INR 1.11 (0.92-1.08) H 04/29/17 21:30 APTT 26.9 SECONDS (23.3-32.5) 04/29/17 21:30 - Constitutional Appears: Non-toxic, No Acute Distress - Head Exam Head Exam: NORMAL INSPECTION - Eye Exam Eye Exam: Normal appearance - ENT Exam ENT Exam: Mucous Membranes Moist - Neck Exam Neck Exam: Normal Inspection - Respiratory Exam Respiratory Exam: Clear to Ausculation Bilateral - Cardiovascular Exam Cardiovascular Exam: REGULAR RHYTHM - GI/Abdominal Exam GI & Abdominal Exam: Soft - Extremities Exam Additional comments: right foot dressing C/D/I - Back Exam Back Exam: NORMAL INSPECTION - Neurological Exam Neurological Exam: Alert, Oriented x3 - Skin Skin Exam: Dry, Warm Assessment and Plan (1) Abdominal pain Status: Acute (2) Acute on chronic renal insufficiency Status: Acute (3) ESRD (end stage renal disease) on dialysis Status: Acute (4) Gastroparesis Status: Acute (5) Diabetic foot ulcer Status: Acute (6) Type 2 diabetes mellitus Status: Chronic (7) Osteomyelitis of right foot Status: Suspected - Assessment and Plan (Free Text) Plan: -leukocytosis downtrending -XR right foot: suggest osteomyelitis -Reglan -BP improving -restart home meds and end nicardopine drip -Podiatry on board, appreciate input -ID on board, appreciate input -GI on board, appreciate input -conservation or heritage architect on board, appreciate input Dispo: transfer to Med/Surg once stable
--- NOTE | 2017-05-01 14:58 | CP.PCM.CON ---
History of Present Illness - History of Present Illness History of Present Illness: REFERRED FOR ID EVAL HX MRSA INFECTIONS IN PAST AND MRSA NASAL + 45 y/o male patient with PMHx of CKD, osteomyelitis of the Right foot, DM II with Neuropathy, bilateral Charcot was seen at bedside ED. Patient presents with abdominal pain, nausea, vomit accompanied by non-bloody diarrhea for 2 days. Patient states that he is seeing Dr. Baez once every Saturday. Patient states that his brother changes dressing to right foot every 2 days with sterile dressing materials. Dressing to Right lower extremity appears clean dry and intact today. Patient is ambulating in a [place] boot to right lower extremity. Patient denies of any trauma or recent travel. Review of Systems - Constitutional Constitutional: As Per HPI - EENT Eyes: absent: As Per HPI, Blind Spots, Blurred Vision, Change in Vision, Decreased Night Vision, Diplopia, Discharge, Dry Eye, Exophthalmos, Floaters, Irritation, Itchy Eyes, Loss of Peripheral Vision, Pain, Photophobia, Requires Corrective Lenses, Sees Flashes, Spots in Vision, Tunnel Vision, Other Visual Disturbances, Loss of Vision, Other Ears: absent: As Per HPI, Decreased Hearing, Ear Discharge, Ear Pain, Tinnitus, Abnormal Hearing, Disequilibrium, Dizziness, Other Nose/Mouth/Throat: absent: As Per HPI, Epistaxis, Nasal Congestion, Nasal Discharge, Nasal Obstruction, Nasal Trauma, Nose Pain, Post Nasal Drip, Sinus Pain, Sinus Pressure, Bleeding Gums, Change in Voice, Dental Pain, Dry Mouth, Dysphagia, Halitosis, Hoarsness, Lip Swelling, Mouth Lesions, Mouth Pain, Odynophagia, Sore Throat, Throat Swelling, Tongue Swelling, Facial Pain, Neck Pain, Neck Mass, Other - Cardiovascular Cardiovascular: absent: As Per HPI, Acrocyanosis, Chest Pain, Chest Pain at Rest , Chest Pain with Activity, Claudication, Diaphoresis, Dyspnea, Dyspnea on Exertion, Edema, Irregular Heart Rhythm, Pain Radiating to Arm/Neck/Jaw, Leg Edema, Leg Ulcers, Lightheadedness, Orthopnea, Palpitations, Paroxysmal Nocturnal Dyspnea, Pedal Edema, Radiating Pain, Rapid Heart Rate, Slow Heart Rate, Syncope, Other - Respiratory Respiratory: absent: As Per HPI, Cough, Dyspnea, Hemoptysis, Dyspnea on Exertion , Wheezing, Snoring, Stridor, Pain on Inspiration, Chest Congestion, Excessive Mucous Production, Change in Mucous Color, Pain with Coughing, Other - Gastrointestinal Gastrointestinal: As Per HPI - Genitourinary Genitourinary: absent: As Per HPI, Change in Urinary Stream, Difficulty Urinating, Dysuria, Flank Pain, Hematuria, Pyuria, Nocturia, Urinary Incontinence, Urinary Frequency, Urinary Hesitance, Urinary Urgency, Voiding Freq/Small Amts, Freq UTI, Hx Renal/Bladder Calculi, Hx /Renal Surgery, Bladder Distension, Other - Musculoskeletal Musculoskeletal: As Per HPI - Integumentary Integumentary: As Per HPI - Neurological Neurological: absent: As Per HPI, Abnormal Gait, Abnormal Hearing, Abnormal Movements, Abnormal Speech, Behavioral Changes, Burning Sensations, Confusion, Convulsions, Disequilibrium, Dizziness, Numbness, Focal Weakness, Frequent Falls , Headaches, Lack of Coordination, Loss of Vision, Memory Loss, Paresthesias, Radicular Pain, Restless Legs, Sensory Deficit, Syncope, Tingling, Tremor, Vertigo, Weakness, Other Visual Disturbances, Other - Psychiatric Psychiatric: absent: As Per HPI, Abnormal Sleep Pattern, Anhedonia, Anxiety, Auditory Hallucinations, Behavioral Changes, Change in Appetite, Change in Libido, Confusion, Depression, Difficulty Concentrating, Hallucinations, Homicidal Ideation, Hopelessness, Irritability, Memory Loss, Mood Swings, Panic Attacks, Paranoia, Suicidal Ideation, Visual Hallucinations, Tactile Hallucinations, Other - Endocrine Endocrine: absent: As Per HPI, Change in Body Appearance, Change in Libido, Cold Intolorance, Deepening of Voice, Excessive Sweating, Fatigue, Flushing, Heat Intolorance, Increase in Ring/Shoe/Hat Size, Palpitations, Polydipsia, Polyphagia, Polyuria, Other - Hematologic/Lymphatic Hematologic: absent: As Per HPI, Easy Bleeding, Easy Bruising, Lymphadenopathy, Other Past Patient History - Past Medical History & Family History Past Medical History?: Yes - Past Social History Smoking Status: Former Smoker - CARDIAC Hx Cardiac Disorders: Yes Hx Hypertension: Yes - PULMONARY Hx Respiratory Disorders: No - NEUROLOGICAL Hx Neurological Disorder: No - HEENT Hx HEENT Problems: Yes - RENAL Hx Chronic Kidney Disease: Yes - ENDOCRINE/METABOLIC Hx Endocrine Disorders: Yes Hx Diabetes Mellitus Type 2: Yes - HEMATOLOGICAL/ONCOLOGICAL Hx Blood Disorders: Yes Hx Anemia: Yes Hx Blood Transfusions: Yes Hx Blood Transfusion Reaction: No - INTEGUMENTARY Hx Dermatological Problems: Yes - MUSCULOSKELETAL/RHEUMATOLOGICAL Hx Musculoskeletal Disorders: Yes Hx Falls: Yes Hx Osteomyelitis: Yes Hx Unsteady Gait: Yes - GASTROINTESTINAL Hx Gastrointestinal Disorders: No Hx Nausea: Yes Hx Vomiting: Yes - GENITOURINARY/GYNECOLOGICAL Hx Genitourinary Disorders: No - PSYCHIATRIC Hx Psychophysiologic Disorder: No Hx Substance Use: No - SURGICAL HISTORY Hx Surgeries: Yes Hx Amputation: Yes (Partial right BTK) - ANESTHESIA Hx Anesthesia: Yes Hx Anesthesia Reactions: No Hx Malignant Hyperthermia: No Has any member of the family had a problem w/ anesthesia?: No Meds Allergies/Adverse Reactions: Allergies Allergy/AdvReac Type Severity Reaction Status Date / Time Penicillins Allergy RASH Verified 10/06/16 22:07 - Medications Medications: Current Medications Amlodipine Besylate (Norvasc) 10 mg PO DAILY [facility] Last Admin: 05/01/17 10:24 Dose: 10 mg Atenolol (Tenormin) 50 mg PO DAILY [facility] Last Admin: 05/01/17 08:24 Dose: 50 mg Bupropion HCl (Wellbutrin) 75 mg PO BID [facility] Last Admin: 05/01/17 08:24 Dose: 75 mg Clonidine HCl (Catapres) 0.3 mg PO TID [facility] Last Admin: 05/01/17 14:23 Dose: 0.3 mg Gabapentin (Neurontin) 100 mg PO TID [facility] Last Admin: 05/01/17 14:23 Dose: 100 mg Heparin Sodium (Porcine) (Heparin) 5,000 units SC Q12 [facility] PRN Reason: Protocol Last Admin: 05/01/17 08:25 Dose: 5,000 units Sodium Chloride (Sodium Chloride 0.9%) 1,000 mls @ 75 mls/hr IV .[id number] [facility] Stop: 05/02/17 02:35 Last Admin: 05/01/17 02:37 Dose: 75 mls/hr Insulin Human Regular (Humulin R) 1 units SC ACHS [facility] PRN Reason: Protocol Last Admin: 05/01/17 12:05 Dose: 3 u Metoclopramide HCl (Reglan) 10 mg IVP Q6H PRN PRN Reason: Nausea/Vomiting Last Admin: 04/30/17 13:14 Dose: 10 mg Morphine Sulfate (Morphine) 2 mg IVP Q4H PRN PRN Reason: Pain, moderate (4-7) Ondansetron HCl (Zofran Inj) 4 mg IVP Q6H PRN PRN Reason: Nausea/Vomiting Last Admin: 04/30/17 16:43 Dose: 4 mg Pantoprazole Sodium (Protonix Ec Tab) 40 mg PO DAILY [facility] Last Admin: 05/01/17 08:24 Dose: 40 mg Pentoxifylline (Pentoxil) 400 mg PO BID [facility] Last Admin: 05/01/17 08:24 Dose: 400 mg Physical Exam - Constitutional Appears: Non-toxic, Chronically Ill - Head Exam Head Exam: NORMOCEPHALIC - Eye Exam Eye Exam: PERRL. absent: Scleral icterus - ENT Exam ENT Exam: Mucous Membranes Dry, Normal External Ear Exam - Neck Exam Neck exam: Negative for: Lymphadenopathy, Thyromegaly - Respiratory Exam Respiratory Exam: Decreased Breath Sounds, Rhonchi - Cardiovascular Exam Cardiovascular Exam: REGULAR RHYTHM, +S1, +S2 - GI/Abdominal Exam GI & Abdominal Exam: Diminished Bowel Sounds, Soft. absent: Tenderness - Rectal Exam Rectal Exam: Deferred - Exam Exam: NORMAL INSPECTION - Extremities Exam Extremities exam: Negative for: calf tenderness Additional comments: RIGHT FOOT / STUMP HEALED - Back Exam Back exam: absent: CVA tenderness (L), CVA tenderness (R) - Neurological Exam Neurological exam: Alert, CN II-XII Intact, Oriented x3, Reflexes Normal - Psychiatric Exam Psychiatric exam: Normal Mood - Skin Skin Exam: Dry, Intact Results - Vital Signs Recent Vital Signs: Last Vital Signs Temp 98.7 F 05/01/17 12:00 Pulse 62 05/01/17 14:23 Resp 16 05/01/17 14:00 BP 151/51 H 05/01/17 14:23 Pulse Ox 96 05/01/17 14:00 - Labs Result Diagrams: 05/01/17 06:20 05/01/17 06:20 Labs: Laboratory Results - last 24 hr 04/30/17 04/30/17 05/01/17 16:20 21:53 05:09 WBC RBC Hgb Hct MCV MCH MCHC RDW Plt Count Sodium Potassium Chloride Carbon Dioxide Anion Gap BUN Creatinine Est GFR ( Amer) Est GFR (Non-Af Amer) POC Glucose (mg/dL) 234 H 154 H 158 H Random Glucose Calcium Total Bilirubin AST ALT Alkaline Phosphatase Total Protein Albumin Globulin Albumin/Globulin Ratio 05/01/17 05/01/17 05/01/17 06:20 06:20 11:15 WBC 11.6 H RBC 4.56 Hgb 11.0 L Hct 35.0 MCV 76.7 L MCH 24.2 L MCHC 31.5 L RDW 15.6 H Plt Count 190 Sodium 139 Potassium 4.2 Chloride 108 H Carbon Dioxide 19 L Anion Gap 16 BUN 60 H Creatinine 4.3 H Est GFR ( Amer) 18 Est GFR (Non-Af Amer) 15 POC Glucose (mg/dL) 236 H Random Glucose 159 H Calcium 7.2 L Total Bilirubin 0.5 AST 38 ALT 23 Alkaline Phosphatase 93 Total Protein 7.0 Albumin 3.2 L D Globulin 3.8 Albumin/Globulin Ratio 0.8 L Assessment & Plan (1) MRSA (methicillin resistant Staphylococcus aureus) carrier Status: Acute (2) MRSA (methicillin resistant Staphylococcus aureus) carrier Status: Acute (3) Abdominal pain Status: Acute (4) Acute on chronic renal insufficiency Status: Acute (5) ESRD (end stage renal disease) on dialysis Status: Acute (6) Hypertensive urgency Status: Acute - Assessment and Plan (Free Text) Assessment: MRSA COLONIZATION LEUKOCYTOSIS LIKELY REACTIVE
--- NOTE | 2017-05-01 15:01 | CP.PCM.PN ---
Subjective - Date & Time of Evaluation Date of Evaluation: 05/01/17 Time of Evaluation: 08:00 - Subjective Subjective: OPEN WOUND TO RIGHT FOOT + MRSA COLONIZATION CANNOT R/O DEEP SEATED INFECTION CONSIDER CERETEC SCAN AND OR MRI IF LEUKOCYTOSIS PERSISTS Objective - Vital Signs/Intake and Output Vital Signs (last 24 hours): Temp Pulse Resp BP Pulse Ox 98.7 F 62 16 151/51 H 96 05/01/17 12:00 05/01/17 14:23 05/01/17 14:00 05/01/17 14:23 05/01/17 14:00 Intake and Output: 05/01/17 05/01/17 06:59 18:59 Intake Total 1180 480 Output Total 1100 500 Balance 80 -20 - Medications Medications: Current Medications Amlodipine Besylate (Norvasc) 10 mg PO DAILY [facility] Last Admin: 05/01/17 10:24 Dose: 10 mg Atenolol (Tenormin) 50 mg PO DAILY [facility] Last Admin: 05/01/17 08:24 Dose: 50 mg Bupropion HCl (Wellbutrin) 75 mg PO BID [facility] Last Admin: 05/01/17 08:24 Dose: 75 mg Clonidine HCl (Catapres) 0.3 mg PO TID [facility] Last Admin: 05/01/17 14:23 Dose: 0.3 mg Gabapentin (Neurontin) 100 mg PO TID [facility] Last Admin: 05/01/17 14:23 Dose: 100 mg Heparin Sodium (Porcine) (Heparin) 5,000 units SC Q12 [facility] PRN Reason: Protocol Last Admin: 05/01/17 08:25 Dose: 5,000 units Sodium Chloride (Sodium Chloride 0.9%) 1,000 mls @ 75 mls/hr IV .[id number] [facility] Stop: 05/02/17 02:35 Last Admin: 05/01/17 02:37 Dose: 75 mls/hr Insulin Human Regular (Humulin R) 1 units SC ACHS [facility] PRN Reason: Protocol Last Admin: 05/01/17 12:05 Dose: 3 u Metoclopramide HCl (Reglan) 10 mg IVP Q6H PRN PRN Reason: Nausea/Vomiting Last Admin: 04/30/17 13:14 Dose: 10 mg Morphine Sulfate (Morphine) 2 mg IVP Q4H PRN PRN Reason: Pain, moderate (4-7) Ondansetron HCl (Zofran Inj) 4 mg IVP Q6H PRN PRN Reason: Nausea/Vomiting Last Admin: 04/30/17 16:43 Dose: 4 mg Pantoprazole Sodium (Protonix Ec Tab) 40 mg PO DAILY [facility] Last Admin: 05/01/17 08:24 Dose: 40 mg Pentoxifylline (Pentoxil) 400 mg PO BID [facility] Last Admin: 05/01/17 08:24 Dose: 400 mg - Labs Labs: 05/01/17 06:20 05/01/17 06:20 PT 11.5 SECONDS (9.6-11.2) H 04/29/17 21:30 INR 1.11 (0.92-1.08) H 04/29/17 21:30 APTT 26.9 SECONDS (23.3-32.5) 04/29/17 21:30 Assessment and Plan (1) MRSA (methicillin resistant Staphylococcus aureus) carrier Status: Acute (2) MRSA (methicillin resistant Staphylococcus aureus) carrier Status: Acute (3) Abdominal pain Status: Acute (4) Acute on chronic renal insufficiency Status: Acute (5) ESRD (end stage renal disease) on dialysis Status: Acute (6) Hypertensive urgency Status: Acute
--- NOTE | 2017-05-01 18:43 | CP.PCM.CON ---
History of Present Illness - History of Present Illness History of Present Illness: CC: Abdominal pain, nausea, and vomiting HPI: 45 year old male with h/o CKD, DM2, HTN, PAD, h/o osteomyeltitis admitted with abdominal pain, nausea, and vomiting. He says the symptoms started yesterday. He has had these symptoms before. He often comes to the hospital, gets some "shots", and the symptoms get better. He has had endoscopy/ colonoscopy. He had a CT scan. Currently he feels better. He says his abdominal pain is resolved. He ate breakfast without vomiting. Upon admission he did have hyperglycemia. He generally has blood sugar high, often > 150. No chest pain or sob. ROS: 14 systems negative other than HPI PMHx: CKD, DM2, Osteomyelitis, Erosive esophagitis, Colon polyps, HTN, PAD PSHx: Right foot partial amputation FHx: No family history of GI cancer SHx: No etoh, drugs, smoking ROS A comprehensive review of systems was performed and was negative apart from HPI Past Patient History - Past Medical History & Family History Past Medical History?: Yes - Past Social History Alcohol: None Drugs: Denies - CARDIAC Hx Congestive Heart Failure: No Hx Hypercholesterolemia: Yes Hx Hypertension: Yes - PULMONARY Hx Chronic Obstructive Pulmonary Disease (COPD): No - NEUROLOGICAL Hx Neurological Disorder: No - HEENT Hx HEENT Problems: Yes - RENAL Hx Chronic Kidney Disease: Yes - ENDOCRINE/METABOLIC Hx Hypothyroidism: No - HEMATOLOGICAL/ONCOLOGICAL Hx Anemia: Yes Hx Human Immunodeficiency Virus (HIV): No - INTEGUMENTARY Hx Dermatological Problems: Yes - MUSCULOSKELETAL/RHEUMATOLOGICAL Hx Arthritis: No Hx Rheumatoid Arthritis: No - GASTROINTESTINAL Hx Gastrointestinal Disorders: No Hx Nausea: Yes Hx Vomiting: Yes - GENITOURINARY/GYNECOLOGICAL Hx Genitourinary Disorders: No - PSYCHIATRIC Hx Psychophysiologic Disorder: No Hx Substance Use: No - SURGICAL HISTORY Hx Surgeries: Yes Hx Amputation: Yes (Partial right BTK) - ANESTHESIA Hx Anesthesia: Yes Hx Anesthesia Reactions: No Hx Malignant Hyperthermia: No Has any member of the family had a problem w/ anesthesia?: No Meds Allergies/Adverse Reactions: Allergies Allergy/AdvReac Type Severity Reaction Status Date / Time Penicillins Allergy RASH Verified 10/06/16 22:07 - Medications Medications: Current Medications Amlodipine Besylate (Norvasc) 10 mg PO DAILY [facility] Last Admin: 05/01/17 10:24 Dose: 10 mg Atenolol (Tenormin) 50 mg PO DAILY [facility] Last Admin: 05/01/17 08:24 Dose: 50 mg Bupropion HCl (Wellbutrin) 75 mg PO BID [facility] Last Admin: 05/01/17 16:33 Dose: 75 mg Clonidine HCl (Catapres) 0.3 mg PO TID [facility] Last Admin: 05/01/17 17:19 Dose: 0.3 mg Gabapentin (Neurontin) 100 mg PO TID [facility] Last Admin: 05/01/17 16:33 Dose: 100 mg Heparin Sodium (Porcine) (Heparin) 5,000 units SC Q12 [facility] PRN Reason: Protocol Last Admin: 05/01/17 08:25 Dose: 5,000 units Sodium Chloride (Sodium Chloride 0.9%) 1,000 mls @ 75 mls/hr IV .[id number] [facility] Stop: 05/02/17 02:35 Last Admin: 05/01/17 16:34 Dose: 75 mls/hr Insulin Human Regular (Humulin R) 1 units SC ACHS [facility] PRN Reason: Protocol Last Admin: 05/01/17 16:32 Dose: 2 u Metoclopramide HCl (Reglan) 10 mg IVP Q6H PRN PRN Reason: Nausea/Vomiting Last Admin: 04/30/17 13:14 Dose: 10 mg Morphine Sulfate (Morphine) 2 mg IVP Q4H PRN PRN Reason: Pain, moderate (4-7) Ondansetron HCl (Zofran Inj) 4 mg IVP Q6H PRN PRN Reason: Nausea/Vomiting Last Admin: 04/30/17 16:43 Dose: 4 mg Pantoprazole Sodium (Protonix Ec Tab) 40 mg PO DAILY [facility] Last Admin: 05/01/17 08:24 Dose: 40 mg Pentoxifylline (Pentoxil) 400 mg PO BID [facility] Last Admin: 05/01/17 16:33 Dose: 400 mg Physical Exam - Constitutional Appears: Well, No Acute Distress, Chronically Ill - Head Exam Head Exam: ATRAUMATIC, NORMOCEPHALIC - Eye Exam Eye Exam: Normal appearance, Scleral icterus Pupil Exam: PERRL - ENT Exam ENT Exam: Mucous Membranes Moist, Normal Oropharynx - Neck Exam Neck exam: Negative for: Lymphadenopathy, Thyromegaly - Respiratory Exam Respiratory Exam: NORMAL BREATHING PATTERN. absent: Wheezes, Respiratory Distress - Cardiovascular Exam Cardiovascular Exam: REGULAR RHYTHM, +S1, +S2 - GI/Abdominal Exam GI & Abdominal Exam: Soft. absent: Guarding, Tenderness - Extremities Exam Extremities exam: Positive for: normal capillary refill. Negative for: pedal edema - Neurological Exam Neurological exam: Alert, Oriented x3 - Psychiatric Exam Psychiatric exam: Normal Affect, Normal Mood - Skin Skin Exam: Dry, Normal Color, Warm Results - Vital Signs Recent Vital Signs: Last Vital Signs Temp 98.6 F 05/01/17 16:00 Pulse 61 05/01/17 17:19 Resp 15 05/01/17 16:00 BP 162/91 H 05/01/17 17:19 Pulse Ox 99 05/01/17 16:21 - Labs Result Diagrams: 05/01/17 06:20 05/01/17 06:20 Labs: Laboratory Results - last 24 hr 04/30/17 05/01/17 05/01/17 21:53 05:09 06:20 WBC 11.6 H RBC 4.56 Hgb 11.0 L Hct 35.0 MCV 76.7 L MCH 24.2 L MCHC 31.5 L RDW 15.6 H Plt Count 190 Sodium Potassium Chloride Carbon Dioxide Anion Gap BUN Creatinine Est GFR ( Amer) Est GFR (Non-Af Amer) POC Glucose (mg/dL) 154 H 158 H Random Glucose Calcium Total Bilirubin AST ALT Alkaline Phosphatase Total Protein Albumin Globulin Albumin/Globulin Ratio 05/01/17 05/01/17 05/01/17 06:20 11:15 16:11 WBC RBC Hgb Hct MCV MCH MCHC RDW Plt Count Sodium 139 Potassium 4.2 Chloride 108 H Carbon Dioxide 19 L Anion Gap 16 BUN 60 H Creatinine 4.3 H Est GFR ( Amer) 18 Est GFR (Non-Af Amer) 15 POC Glucose (mg/dL) 236 H 195 H Random Glucose 159 H Calcium 7.2 L Total Bilirubin 0.5 AST 38 ALT 23 Alkaline Phosphatase 93 Total Protein 7.0 Albumin 3.2 L D Globulin 3.8 Albumin/Globulin Ratio 0.8 L Assessment & Plan - Assessment and Plan (Free Text) Assessment: 46 year old male with h/o DM, HTN, PAD, CKD, osteomyelitis admitted with abdominal pain, nausea, and vomiting. 1. Abdominal pain 2. Nausea and vomiting 3. History of erosive esophagitis Plan: -recommend protonix 40 mg po bid -advance diet as tolerated -symptoms better -small frequent meals/low fat -possible gastroparesis -tight glycemic control -no indication for endoscopy -will sign off - Date & Time Date: 05/01/17 Time: 18:43
[2017-05-02 08:04] LABS: HEMATOCRIT 35.1 % (35.0-51.0); MEAN CELL VOLUME 75.5 fl (80.0-94.0); MEAN CORPUSCULAR HEMOGLOBIN 24.3 pg (27.0-31.0); MEAN CORPUSCULAR HGB CONC 32.1 g/dL (33.0-37.0); RED CELL DISTRIBUTION WIDTH 14.9 % (11.5-14.5); WHITE BLOOD COUNT 11.4 K/uL (4.8-10.8)
[2017-05-02 08:16] LABS: ALB/GLOB RATIO 0.8 (1.0-2.1); BILIRUBIN,TOTAL 0.5 mg/dl (0.2-1.3); CALCIUM 7.6 mg/dL (8.4-10.2); POTASSIUM 4.6 MMOL/L (3.6-5.0); TOTAL PROTEIN 6.8 G/DL (6.3-8.2)
--- NOTE | 2017-05-02 08:20 | CP.PCM.PN ---
Subjective - Date & Time of Evaluation Date of Evaluation: 05/02/17 Time of Evaluation: 08:17 - Subjective Subjective: 46 y/o male seen bedside for right lower extremity diabetic foot ulcer. Pt denies of any acute overnight events. Pt denies of any fever, nausea, vomiting, chills, shortness of breath. Dressing appears clean, dry and intact. Objective - Vital Signs/Intake and Output Vital Signs (last 24 hours): Temp Pulse Resp BP Pulse Ox 97.8 F 65 20 190/106 H 98 05/02/17 07:44 05/02/17 07:44 05/02/17 07:44 05/02/17 07:44 05/02/17 07:44 Intake and Output: 05/02/17 05/02/17 06:59 18:59 Output Total 500 Balance -500 - Medications Medications: Current Medications Amlodipine Besylate (Norvasc) 10 mg PO DAILY [facility] Last Admin: 05/01/17 10:24 Dose: 10 mg Atenolol (Tenormin) 50 mg PO DAILY [facility] Last Admin: 05/01/17 08:24 Dose: 50 mg Bupropion HCl (Wellbutrin) 75 mg PO BID [facility] Last Admin: 05/01/17 16:33 Dose: 75 mg Clonidine HCl (Catapres) 0.3 mg PO TID [facility] Last Admin: 05/01/17 17:19 Dose: 0.3 mg Gabapentin (Neurontin) 100 mg PO TID [facility] Last Admin: 05/01/17 16:33 Dose: 100 mg Heparin Sodium (Porcine) (Heparin) 5,000 units SC Q12 [facility] PRN Reason: Protocol Last Admin: 05/01/17 20:30 Dose: 5,000 units Insulin Human Regular (Humulin R) 1 units SC ACHS [facility] PRN Reason: Protocol Last Admin: 05/01/17 22:08 Dose: Not Given Metoclopramide HCl (Reglan) 10 mg IVP Q6H PRN PRN Reason: Nausea/Vomiting Last Admin: 04/30/17 13:14 Dose: 10 mg Minoxidil (Minoxidil) 5 mg PO DAILY [facility] Last Admin: 05/01/17 22:01 Dose: 5 mg Morphine Sulfate (Morphine) 2 mg IVP Q4H PRN PRN Reason: Pain, moderate (4-7) Ondansetron HCl (Zofran Inj) 4 mg IVP Q6H PRN PRN Reason: Nausea/Vomiting Last Admin: 04/30/17 16:43 Dose: 4 mg Pantoprazole Sodium (Protonix Ec Tab) 40 mg PO BID [facility] Last Admin: 05/01/17 20:30 Dose: 40 mg Pentoxifylline (Pentoxil) 400 mg PO BID [facility] Last Admin: 05/01/17 16:33 Dose: 400 mg - Labs Labs: 05/02/17 06:40 05/01/17 06:20 PT 11.5 SECONDS (9.6-11.2) H 04/29/17 21:30 INR 1.11 (0.92-1.08) H 04/29/17 21:30 APTT 26.9 SECONDS (23.3-32.5) 04/29/17 21:30 - Constitutional Appears: Well, Non-toxic, No Acute Distress - Extremities Exam Additional comments: Right Focused VASC: No pedal pulses noted, edema noted to the right foot and ankle, warm to touch, no erythema DERM: Open wound on the lateral aspect of the right foot measuring approx. 3 cm x 2 cm x 0.3 cm, wound base appears grannular with hyperkeratotic fibrotic border, no active drainage, no purulence, no malodor, no ascending cellulitis, no fluctuance, no undermining NEURO: grossly diminished ORTHO: hx of TMA, limited ankle and STJ ROM - Neurological Exam Neurological Exam: Alert, Awake, Oriented x3 - Psychiatric Exam Psychiatric exam: Normal Affect, Normal Mood Assessment and Plan - Assessment and Plan (Free Text) Assessment: 46 y/o male seen bedside for R foot diabetic ulceration Plan: Pt seen and examined at bedside Discussed with attending Dr. Baez Labs and vitals reviewed; WBC: 11.4 Betadine DSD applied to Right foot no clinical evidence of acute infection to R foot podiatry will continue to follow while patient remains in house patient to f/u with Dr. Baez as outpatient upon d/c
[2017-05-02] MEDS: Pantoprazole 40 mg EC Tab PO SCH ×2 (08:33→16:16)
[2017-05-02] MEDS: Insulin Regular 100 units/ml SC SCH ×4 (08:34→23:02)
[2017-05-02] MEDS ORDERED: Magnesium Oxide 400 mg Tab UD PO ONE (13:46)
--- NOTE | 2017-05-02 15:40 | CP.PCM.PN ---
Subjective - Date & Time of Evaluation Date of Evaluation: 05/02/17 Time of Evaluation: 07:38 - Subjective Subjective: Patient seen and examined at bedside. No acute events overnight. Afebrile. No complaints at this time. Denies chest pain, abdominal pain, nausea, vomiting, fever, or chills. Objective - Vital Signs/Intake and Output Vital Signs (last 24 hours): Temp Pulse Resp BP Pulse Ox 97.8 F 92 H 20 134/87 98 05/02/17 07:44 05/02/17 13:15 05/02/17 07:44 05/02/17 13:15 05/02/17 07:44 Intake and Output: 05/02/17 05/02/17 06:59 18:59 Intake Total 300 Output Total 500 Balance -500 300 - Medications Medications: Current Medications Amlodipine Besylate (Norvasc) 10 mg PO DAILY [facility] Last Admin: 05/02/17 08:34 Dose: 10 mg Atenolol (Tenormin) 50 mg PO DAILY [facility] Last Admin: 05/02/17 08:33 Dose: 50 mg Bupropion HCl (Wellbutrin) 75 mg PO BID [facility] Last Admin: 05/02/17 08:34 Dose: 75 mg Clonidine HCl (Catapres) 0.3 mg PO TID [facility] Last Admin: 05/02/17 13:15 Dose: 0.3 mg Gabapentin (Neurontin) 100 mg PO TID [facility] Last Admin: 05/02/17 13:13 Dose: 100 mg Heparin Sodium (Porcine) (Heparin) 5,000 units SC Q12 [facility] PRN Reason: Protocol Last Admin: 05/02/17 08:34 Dose: 5,000 units Insulin Human Regular (Humulin R) 0 units SC ACHS [facility] PRN Reason: Protocol Metoclopramide HCl (Reglan) 10 mg IVP Q6H PRN PRN Reason: Nausea/Vomiting Last Admin: 04/30/17 13:14 Dose: 10 mg Minoxidil (Minoxidil) 5 mg PO DAILY [facility] Last Admin: 05/02/17 08:35 Dose: 5 mg Morphine Sulfate (Morphine) 2 mg IVP Q4H PRN PRN Reason: Pain, moderate (4-7) Ondansetron HCl (Zofran Inj) 4 mg IVP Q6H PRN PRN Reason: Nausea/Vomiting Last Admin: 04/30/17 16:43 Dose: 4 mg Pantoprazole Sodium (Protonix Ec Tab) 40 mg PO BID [facility] Last Admin: 05/02/17 08:33 Dose: 40 mg Pentoxifylline (Pentoxil) 400 mg PO BID [facility] Last Admin: 05/02/17 08:33 Dose: 400 mg - Labs Labs: 05/02/17 06:40 05/02/17 06:40 PT 11.5 SECONDS (9.6-11.2) H 04/29/17 21:30 INR 1.11 (0.92-1.08) H 04/29/17 21:30 APTT 26.9 SECONDS (23.3-32.5) 04/29/17 21:30 - Constitutional Appears: Well - Head Exam Head Exam: ATRAUMATIC, NORMAL INSPECTION, NORMOCEPHALIC - Eye Exam Eye Exam: EOMI, Normal appearance - Respiratory Exam Respiratory Exam: Clear to Ausculation Bilateral, NORMAL BREATHING PATTERN - Cardiovascular Exam Cardiovascular Exam: REGULAR RHYTHM, RRR, +S1, +S2. absent: Murmur - GI/Abdominal Exam GI & Abdominal Exam: Soft, Normal Bowel Sounds. absent: Tenderness - Extremities Exam Additional comments: right foot dressing clean dry and intact - Neurological Exam Neurological Exam: Alert, Awake, Oriented x3 - Psychiatric Exam Psychiatric exam: Normal Affect, Normal Mood - Skin Skin Exam: Dry, Intact, Normal Color, Warm Assessment and Plan (1) Diabetic foot infection Assessment & Plan: Right foot, leukocytosis still present. 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
--- NOTE | 2017-05-02 19:45 | CP.PCM.PN ---
Subjective - Date & Time of Evaluation Date of Evaluation: 05/02/17 Time of Evaluation: 10:00 - Subjective Subjective: wound culture noted will check esr/procalcitonin consider empiric vanco/genta unless OM ruled out Objective - Vital Signs/Intake and Output Vital Signs (last 24 hours): Temp Pulse Resp BP Pulse Ox 97.4 F L 63 17 168/81 H 98 05/02/17 16:04 05/02/17 16:11 05/02/17 16:04 05/02/17 16:11 05/02/17 16:04 Intake and Output: 05/02/17 05/03/17 18:59 06:59 Intake Total 300 Balance 300 - Medications Medications: Current Medications Amlodipine Besylate (Norvasc) 10 mg PO DAILY [facility] Last Admin: 05/02/17 08:34 Dose: 10 mg Atenolol (Tenormin) 50 mg PO DAILY [facility] Last Admin: 05/02/17 08:33 Dose: 50 mg Bupropion HCl (Wellbutrin) 75 mg PO BID [facility] Last Admin: 05/02/17 16:10 Dose: 75 mg Clonidine HCl (Catapres) 0.3 mg PO TID [facility] Last Admin: 05/02/17 16:11 Dose: 0.3 mg Gabapentin (Neurontin) 100 mg PO TID [facility] Last Admin: 05/02/17 16:11 Dose: 100 mg Heparin Sodium (Porcine) (Heparin) 5,000 units SC Q12 [facility] PRN Reason: Protocol Last Admin: 05/02/17 08:34 Dose: 5,000 units Insulin Human Regular (Humulin R) 0 units SC ACHS [facility] PRN Reason: Protocol Last Admin: 05/02/17 16:11 Dose: 4 units Metoclopramide HCl (Reglan) 10 mg IVP Q6H PRN PRN Reason: Nausea/Vomiting Last Admin: 04/30/17 13:14 Dose: 10 mg Minoxidil (Minoxidil) 5 mg PO DAILY [facility] Last Admin: 05/02/17 08:35 Dose: 5 mg Morphine Sulfate (Morphine) 2 mg IVP Q4H PRN PRN Reason: Pain, moderate (4-7) Ondansetron HCl (Zofran Inj) 4 mg IVP Q6H PRN PRN Reason: Nausea/Vomiting Last Admin: 04/30/17 16:43 Dose: 4 mg Pantoprazole Sodium (Protonix Ec Tab) 40 mg PO BID [facility] Last Admin: 05/02/17 16:16 Dose: 40 mg Pentoxifylline (Pentoxil) 400 mg PO BID [facility] Last Admin: 05/02/17 16:12 Dose: 400 mg - Labs Labs: 05/02/17 06:40 05/02/17 06:40 PT 11.5 SECONDS (9.6-11.2) H 04/29/17 21:30 INR 1.11 (0.92-1.08) H 04/29/17 21:30 APTT 26.9 SECONDS (23.3-32.5) 04/29/17 21:30 Assessment and Plan (1) MRSA (methicillin resistant Staphylococcus aureus) carrier Status: Acute (2) MRSA (methicillin resistant Staphylococcus aureus) carrier Status: Acute (3) Abdominal pain Status: Acute (4) Acute on chronic renal insufficiency Status: Acute (5) ESRD (end stage renal disease) on dialysis Status: Acute (6) Hypertensive urgency Status: Acute
--- NOTE | 2017-05-03 06:39 | CP.PCM.PN ---
Subjective - Date & Time of Evaluation Date of Evaluation: 05/03/17 Time of Evaluation: 06:37 - Subjective Subjective: 46 y/o male seen bedside for right lower extremity diabetic foot ulcer. Pt denies of any acute overnight events. Pt denies of any fever, nausea, vomiting, chills, shortness of breath. Dressing appears clean, dry and intact. Objective - Vital Signs/Intake and Output Vital Signs (last 24 hours): Temp Pulse Resp BP Pulse Ox 97.6 F 60 19 166/86 H 99 05/03/17 00:03 05/03/17 00:03 05/03/17 00:03 05/03/17 00:03 05/03/17 00:03 Intake and Output: 05/02/17 05/03/17 18:59 06:59 Intake Total 300 30 Balance 300 30 - Medications Medications: Current Medications Amlodipine Besylate (Norvasc) 10 mg PO DAILY [facility] Last Admin: 05/02/17 08:34 Dose: 10 mg Atenolol (Tenormin) 50 mg PO DAILY [facility] Last Admin: 05/02/17 08:33 Dose: 50 mg Bupropion HCl (Wellbutrin) 75 mg PO BID [facility] Last Admin: 05/02/17 16:10 Dose: 75 mg Clonidine HCl (Catapres) 0.3 mg PO TID [facility] Last Admin: 05/02/17 16:11 Dose: 0.3 mg Gabapentin (Neurontin) 100 mg PO TID [facility] Last Admin: 05/02/17 16:11 Dose: 100 mg Heparin Sodium (Porcine) (Heparin) 5,000 units SC Q12 [facility] PRN Reason: Protocol Last Admin: 05/02/17 21:42 Dose: 5,000 units Insulin Human Regular (Humulin R) 0 units SC ACHS [facility] PRN Reason: Protocol Last Admin: 05/02/17 23:02 Dose: Not Given Metoclopramide HCl (Reglan) 10 mg IVP Q6H PRN PRN Reason: Nausea/Vomiting Last Admin: 04/30/17 13:14 Dose: 10 mg Minoxidil (Minoxidil) 5 mg PO DAILY [facility] Last Admin: 05/02/17 08:35 Dose: 5 mg Ondansetron HCl (Zofran Inj) 4 mg IVP Q6H PRN PRN Reason: Nausea/Vomiting Last Admin: 04/30/17 16:43 Dose: 4 mg Pantoprazole Sodium (Protonix Ec Tab) 40 mg PO BID [facility] Last Admin: 05/02/17 16:16 Dose: 40 mg Pentoxifylline (Pentoxil) 400 mg PO BID [facility] Last Admin: 05/02/17 16:12 Dose: 400 mg - Labs Labs: 05/02/17 06:40 05/02/17 06:40 PT 11.5 SECONDS (9.6-11.2) H 04/29/17 21:30 INR 1.11 (0.92-1.08) H 04/29/17 21:30 APTT 26.9 SECONDS (23.3-32.5) 04/29/17 21:30 - Constitutional Appears: Well, Non-toxic, No Acute Distress - Extremities Exam Additional comments: Right Focused VASC: No pedal pulses noted, edema noted to the right foot and ankle, warm to touch, no erythema DERM: Open wound on the lateral aspect of the right foot measuring approx. 3 cm x 2 cm x 0.3 cm, wound base appears grannular with hyperkeratotic fibrotic border, no active drainage, no purulence, no malodor, no ascending cellulitis, no fluctuance, no undermining NEURO: grossly diminished ORTHO: hx of TMA, limited ankle and STJ ROM - Neurological Exam Neurological Exam: Alert, Awake, Oriented x3 - Psychiatric Exam Psychiatric exam: Normal Affect, Normal Mood Assessment and Plan - Assessment and Plan (Free Text) Assessment: 46 y/o male seen bedside for R foot diabetic ulceration Plan: Pt seen and examined at bedside Discussed with attending Dr. Baez Labs and vitals reviewed; afebrile Betadine DSD applied to Right foot no clinical evidence of acute infection to R foot podiatry will continue to follow while patient remains in house f/u MRI of LLE patient to f/u with Dr. Baez as outpatient upon d/c
[2017-05-03 07:19] LABS: HEMATOCRIT 34.3 % (35.0-51.0); MEAN CELL VOLUME 74.9 fl (80.0-94.0); MEAN CORPUSCULAR HEMOGLOBIN 24.6 pg (27.0-31.0); MEAN CORPUSCULAR HGB CONC 32.8 g/dL (33.0-37.0); WHITE BLOOD COUNT 8.8 K/uL (4.8-10.8)
[2017-05-03 07:47] LABS: CALCIUM 7.7 mg/dL (8.4-10.2); MAGNESIUM 1.2 MG/DL (1.6-2.3); POTASSIUM 4.4 MMOL/L (3.6-5.0)
[2017-05-03] MEDS: Pantoprazole 40 mg EC Tab PO SCH ×2 (08:50→16:37)
[2017-05-03] MEDS: Insulin Regular 100 units/ml SC SCH ×4 (08:52→21:50)
[2017-05-03] MEDS ORDERED: Magnesium Sulfate 2 gm/50 ml 2 GM/50 ML BAG IVPB ONE (10:31)
--- NOTE | 2017-05-03 12:10 | CP.PCM.CON ---
History of Present Illness - History of Present Illness History of Present Illness: This patient who is 46 years old admitted with abdominal pain , I was called to see him for abnormal kidney function. Patient has significant past medical history related to diabetes mellitus with a history of osteomyelitis amputation of the foot. has history of chronic kidney disease perhaps is stage IV Patient is not giving good information The chart reviewed and the HNP reviewed including the lab test and the medication. Also patient was admitted with very high blood pressure to intensive care unit and he started on the medication as noted. Review of Systems - Constitutional Constitutional: Malaise - Cardiovascular Cardiovascular: Dyspnea on Exertion. absent: Chest Pain - Respiratory Respiratory: absent: Cough, Hemoptysis - Gastrointestinal Gastrointestinal: Abdominal Pain. absent: Vomiting - Genitourinary Genitourinary: Nocturia - Neurological Neurological: As Per HPI - Psychiatric Psychiatric: As Per HPI - Endocrine Endocrine: As Per HPI Past Patient History - Past Medical History & Family History Past Medical History?: Yes - Past Social History Alcohol: None Drugs: Denies - CARDIAC Hx Congestive Heart Failure: No Hx Hypercholesterolemia: Yes Hx Hypertension: Yes - PULMONARY Hx Chronic Obstructive Pulmonary Disease (COPD): No - NEUROLOGICAL Hx Neurological Disorder: No - HEENT Hx HEENT Problems: Yes - RENAL Hx Chronic Kidney Disease: Yes - ENDOCRINE/METABOLIC Hx Hypothyroidism: No - HEMATOLOGICAL/ONCOLOGICAL Hx Anemia: Yes Hx Human Immunodeficiency Virus (HIV): No - INTEGUMENTARY Hx Dermatological Problems: Yes - MUSCULOSKELETAL/RHEUMATOLOGICAL Hx Arthritis: No Hx Rheumatoid Arthritis: No - GASTROINTESTINAL Hx Gastrointestinal Disorders: No Hx Nausea: Yes Hx Vomiting: Yes - GENITOURINARY/GYNECOLOGICAL Hx Genitourinary Disorders: No - PSYCHIATRIC Hx Psychophysiologic Disorder: No Hx Substance Use: No - SURGICAL HISTORY Hx Surgeries: Yes Hx Amputation: Yes (Partial right BTK) - ANESTHESIA Hx Anesthesia: Yes Hx Anesthesia Reactions: No Hx Malignant Hyperthermia: No Has any member of the family had a problem w/ anesthesia?: No Meds Allergies/Adverse Reactions: Allergies Allergy/AdvReac Type Severity Reaction Status Date / Time Penicillins Allergy RASH Verified 10/06/16 22:07 - Medications Medications: Current Medications Amlodipine Besylate (Norvasc) 10 mg PO DAILY [facility] Last Admin: 05/03/17 08:51 Dose: 10 mg Atenolol (Tenormin) 50 mg PO DAILY [facility] Last Admin: 05/03/17 08:51 Dose: 50 mg Bupropion HCl (Wellbutrin) 75 mg PO BID [facility] Last Admin: 05/03/17 08:51 Dose: 75 mg Clonidine HCl (Catapres) 0.3 mg PO TID [facility] Last Admin: 05/03/17 08:50 Dose: 0.3 mg Gabapentin (Neurontin) 100 mg PO TID [facility] Last Admin: 05/03/17 08:51 Dose: 100 mg Heparin Sodium (Porcine) (Heparin) 5,000 units SC Q12 [facility] PRN Reason: Protocol Last Admin: 05/03/17 08:52 Dose: 5,000 units Insulin Human Regular (Humulin R) 0 units SC ACHS [facility] PRN Reason: Protocol Last Admin: 05/03/17 08:52 Dose: 2 units Metoclopramide HCl (Reglan) 10 mg IVP Q6H PRN PRN Reason: Nausea/Vomiting Last Admin: 04/30/17 13:14 Dose: 10 mg Minoxidil (Minoxidil) 5 mg PO DAILY [facility] Last Admin: 05/03/17 08:50 Dose: 5 mg Ondansetron HCl (Zofran Inj) 4 mg IVP Q6H PRN PRN Reason: Nausea/Vomiting Last Admin: 04/30/17 16:43 Dose: 4 mg Pantoprazole Sodium (Protonix Ec Tab) 40 mg PO BID [facility] Last Admin: 05/03/17 08:50 Dose: 40 mg Pentoxifylline (Pentoxil) 400 mg PO BID [facility] Last Admin: 05/03/17 08:51 Dose: 400 mg Physical Exam - Constitutional Appears: No Acute Distress - ENT Exam ENT Exam: Mucous Membranes Moist - Respiratory Exam Respiratory Exam: NORMAL BREATHING PATTERN. absent: Chest Wall Tenderness, Rales - Cardiovascular Exam Cardiovascular Exam: absent: JVD, Rubs - GI/Abdominal Exam GI & Abdominal Exam: Normal Bowel Sounds. absent: Distended - Extremities Exam Extremities exam: Negative for: calf tenderness - Back Exam Back exam: absent: CVA tenderness (L), CVA tenderness (R) - Neurological Exam Neurological exam: Alert Results - Vital Signs Recent Vital Signs: Last Vital Signs Temp 98.2 F 05/03/17 07:44 Pulse 65 05/03/17 08:51 Resp 20 05/03/17 07:44 BP 169/89 H 05/03/17 08:51 Pulse Ox 99 05/03/17 07:44 - Labs Result Diagrams: 05/03/17 06:30 05/03/17 06:30 Labs: Laboratory Results - last 24 hr 05/01/17 05/01/17 05/02/17 15:30 15:30 12:26 WBC RBC Hgb Hct MCV MCH MCHC RDW Plt Count Sodium Potassium Chloride Carbon Dioxide Anion Gap BUN Creatinine Est GFR ( Amer) Est GFR (Non-Af Amer) POC Glucose (mg/dL) Random Glucose Calcium Magnesium 1.2 L C-React Prot High Sens 2.24 Procalcitonin 0.09 L 05/02/17 05/02/17 05/03/17 15:54 21:54 06:26 WBC RBC Hgb Hct MCV MCH MCHC RDW Plt Count Sodium Potassium Chloride Carbon Dioxide Anion Gap BUN Creatinine Est GFR ( Amer) Est GFR (Non-Af Amer) POC Glucose (mg/dL) 251 H 218 H 185 H Random Glucose Calcium Magnesium C-React Prot High Sens Procalcitonin 05/03/17 05/03/17 05/03/17 06:30 06:30 11:06 WBC 8.8 RBC 4.58 Hgb 11.3 L Hct 34.3 L MCV 74.9 L MCH 24.6 L MCHC 32.8 L RDW 15.0 H Plt Count 175 Sodium 139 Potassium 4.4 Chloride 105 Carbon Dioxide 23 Anion Gap 15 BUN 58 H Creatinine 4.0 H Est GFR ( Amer) 20 Est GFR (Non-Af Amer) 16 POC Glucose (mg/dL) 282 H Random Glucose 199 H Calcium 7.7 L Magnesium 1.2 L C-React Prot High Sens Procalcitonin Assessment & Plan (1) Acute on chronic renal insufficiency Assessment and Plan: Patient admitted with serum creatinine 5.2 and it has been coming down the latest 4.0 Patient appeared to have acute kidney injury superimposed on chronic kidney disease perhaps stage IV Patient admitted with abdominal pain which appeared to be resolving at the present Hypomagnesemia perhaps related to lack of intake when he came because of the abdominal pain. Patient given 2 g of magnesium sulfate intravenously now. Urinalysis showed over 500 mg protein we will get Spot urine and the ratio for protein to creatinine Ultimately when his improving patient need perhaps to be given ARB or DAVID inhibitor Ultrasound of the kidney recommended Status: Acute (2) Gastroparesis Status: Acute (3) Hypertensive urgency Status: Acute
--- NOTE | 2017-05-03 13:51 | MRI ---
PROCEDURE: HISTORY: R/O OM COMPARISON: 10/08/2016 TECHNIQUE: FINDINGS: There is posterior dislocation complete destruction of the tibiotalar joint/ankle mortise with osteolysis or amputation of the foot sparing the posterior calcaneus and distal tibia and the fibula. There ill-defined residual bone marrow edema at the distal tibia and fibula as well as residual anterior calcaneal edema/abnormal signal consistent with chronic osteomyelitis there has been interval decrease in fluid collection within the stump. The residual fluid is complex signal intensity suggesting underlying proteinaceous debris or hemorrhage but overall decrease in volume. Extensive edema is noted within the residual muscle. IMPRESSION: Findings consistent with chronic osteomyelitis with decrease in size of fluid collection/abscess within the stump of the foot.
--- NOTE | 2017-05-03 14:19 | CP.PCM.PN ---
Subjective - Date & Time of Evaluation Date of Evaluation: 05/03/17 Time of Evaluation: 08:17 - Subjective Subjective: Patient seen and examined at bedside. No acute events overnight. Afebrile. No complaints at this time. Tolerating PO well. Denies chest pain, abdominal pain, nausea, vomiting, fever, or chills. Pending MRI today. Seen by Podiatry, ID, and nephro. Objective - Vital Signs/Intake and Output Vital Signs (last 24 hours): Temp Pulse Resp BP Pulse Ox 98.2 F 63 20 159/88 H 99 05/03/17 07:44 05/03/17 12:22 05/03/17 07:44 05/03/17 12:22 05/03/17 07:44 Intake and Output: 05/03/17 05/03/17 06:59 18:59 Intake Total 30 Balance 30 - Medications Medications: Current Medications Amlodipine Besylate (Norvasc) 10 mg PO DAILY [facility] Last Admin: 05/03/17 08:51 Dose: 10 mg Atenolol (Tenormin) 50 mg PO DAILY [facility] Last Admin: 05/03/17 08:51 Dose: 50 mg Bupropion HCl (Wellbutrin) 75 mg PO BID [facility] Last Admin: 05/03/17 08:51 Dose: 75 mg Clonidine HCl (Catapres) 0.3 mg PO TID [facility] Last Admin: 05/03/17 12:22 Dose: 0.3 mg Gabapentin (Neurontin) 100 mg PO TID [facility] Last Admin: 05/03/17 12:22 Dose: 100 mg Heparin Sodium (Porcine) (Heparin) 5,000 units SC Q12 [facility] PRN Reason: Protocol Last Admin: 05/03/17 08:52 Dose: 5,000 units Vancomycin HCl 1 gm/ Sodium (Chloride) 250 mls @ 166.667 mls/hr IVPB Q72 [facility] Insulin Human Regular (Humulin R) 0 units SC ACHS [facility] PRN Reason: Protocol Last Admin: 05/03/17 12:22 Dose: 4 units Metoclopramide HCl (Reglan) 10 mg IVP Q6H PRN PRN Reason: Nausea/Vomiting Last Admin: 04/30/17 13:14 Dose: 10 mg Minoxidil (Minoxidil) 5 mg PO DAILY [facility] Last Admin: 05/03/17 08:50 Dose: 5 mg Ondansetron HCl (Zofran Inj) 4 mg IVP Q6H PRN PRN Reason: Nausea/Vomiting Last Admin: 04/30/17 16:43 Dose: 4 mg Pantoprazole Sodium (Protonix Ec Tab) 40 mg PO BID [facility] Last Admin: 05/03/17 08:50 Dose: 40 mg Pentoxifylline (Pentoxil) 400 mg PO BID [facility] Last Admin: 05/03/17 08:51 Dose: 400 mg - Labs Labs: 05/03/17 06:30 05/03/17 06:30 PT 11.5 SECONDS (9.6-11.2) H 04/29/17 21:30 INR 1.11 (0.92-1.08) H 04/29/17 21:30 APTT 26.9 SECONDS (23.3-32.5) 04/29/17 21:30 - Constitutional Appears: Well, Non-toxic, No Acute Distress - Head Exam Head Exam: ATRAUMATIC, NORMAL INSPECTION, NORMOCEPHALIC - Eye Exam Eye Exam: Normal appearance - Neck Exam Neck Exam: Normal Inspection - Respiratory Exam Respiratory Exam: Clear to Ausculation Bilateral, NORMAL BREATHING PATTERN - Cardiovascular Exam Cardiovascular Exam: REGULAR RHYTHM, +S1, +S2. absent: Murmur - GI/Abdominal Exam GI & Abdominal Exam: Soft, Normal Bowel Sounds. absent: Tenderness - Extremities Exam Extremities Exam: Normal Inspection Additional comments: right foot dressing clean dry and intact - Back Exam Back Exam: NORMAL INSPECTION - Neurological Exam Neurological Exam: Alert, Awake, Oriented x3 - Psychiatric Exam Psychiatric exam: Normal Affect, Normal Mood - Skin Skin Exam: Dry, Intact, Normal Color, Warm Assessment and Plan (1) Diabetic foot infection Assessment & Plan: Right foot, leukocytosis improved. afebrile Podiatry on board, appreciate recommendations ID on board appreciate input, IV Abx continued MRI pending of foot Status: Acute (2) Hypertension Assessment & Plan: Labile, will continue to monitor, asymptomatic Status: Chronic (3) Acute on chronic renal insufficiency Assessment & Plan: Nephrology consulted, appreciated recommendations Renal U/S pending Status: Acute (4) Hypomagnesemia Assessment & Plan: Improved Will supplement as needed, follow up labs Status: Acute (5) Gastroparesis Assessment & Plan: Asymptomatic at this time, improved Continue glycemic control GI on board, appreciate input Status: Acute (6) Type 2 diabetes mellitus Assessment & Plan: Diabetic diet ISS Status: Chronic
--- NOTE | 2017-05-03 14:28 | US ---
PROCEDURE: Ultrasound of the Kidneys HISTORY: ARF COMPARISON: 12/03/2016.. TECHNIQUE: Sonogram of the kidneys. FINDINGS: RIGHT KIDNEY: Measures: 7.9 x 13.5 cm. Normal in size, contour and echogenicity. No stone, solid mass lesion or hydronephrosis visualized. LEFT KIDNEY: Measures: 7.1 x 13.3 cm. Normal in size, contour and echogenicity. No stone, solid mass lesion or hydronephrosis visualized. OTHER FINDINGS: None. IMPRESSION: Unremarkable renal sonogram.
--- NOTE | 2017-05-03 17:49 | CP.PCM.PN ---
Subjective - Date & Time of Evaluation Date of Evaluation: 05/03/17 Time of Evaluation: 08:00 - Subjective Subjective: for mri cont vanco monitor levels Objective - Vital Signs/Intake and Output Vital Signs (last 24 hours): Temp Pulse Resp BP Pulse Ox 97.9 F 69 18 112/66 99 05/03/17 15:49 05/03/17 16:36 05/03/17 15:49 05/03/17 16:36 05/03/17 15:49 Intake and Output: 05/03/17 05/03/17 06:59 18:59 Intake Total 30 Balance 30 - Medications Medications: Current Medications Amlodipine Besylate (Norvasc) 10 mg PO DAILY [facility] Last Admin: 05/03/17 08:51 Dose: 10 mg Atenolol (Tenormin) 50 mg PO DAILY [facility] Last Admin: 05/03/17 08:51 Dose: 50 mg Bupropion HCl (Wellbutrin) 75 mg PO BID [facility] Last Admin: 05/03/17 16:36 Dose: 75 mg Clonidine HCl (Catapres) 0.3 mg PO TID [facility] Last Admin: 05/03/17 16:36 Dose: 0.3 mg Gabapentin (Neurontin) 100 mg PO TID [facility] Last Admin: 05/03/17 16:36 Dose: 100 mg Heparin Sodium (Porcine) (Heparin) 5,000 units SC Q12 [facility] PRN Reason: Protocol Last Admin: 05/03/17 08:52 Dose: 5,000 units Vancomycin HCl 1 gm/ Sodium (Chloride) 250 mls @ 166.667 mls/hr IVPB Q72 [facility] Last Admin: 05/03/17 16:36 Dose: 166.667 mls/hr Insulin Human Regular (Humulin R) 0 units SC ACHS [facility] PRN Reason: Protocol Last Admin: 05/03/17 16:37 Dose: 3 units Metoclopramide HCl (Reglan) 10 mg IVP Q6H PRN PRN Reason: Nausea/Vomiting Last Admin: 04/30/17 13:14 Dose: 10 mg Minoxidil (Minoxidil) 5 mg PO DAILY [facility] Last Admin: 05/03/17 08:50 Dose: 5 mg Ondansetron HCl (Zofran Inj) 4 mg IVP Q6H PRN PRN Reason: Nausea/Vomiting Last Admin: 04/30/17 16:43 Dose: 4 mg Pantoprazole Sodium (Protonix Ec Tab) 40 mg PO BID [facility] Last Admin: 05/03/17 16:37 Dose: 40 mg Pentoxifylline (Pentoxil) 400 mg PO BID [facility] Last Admin: 05/03/17 16:37 Dose: 400 mg - Labs Labs: 05/03/17 06:30 05/03/17 06:30 PT 11.5 SECONDS (9.6-11.2) H 04/29/17 21:30 INR 1.11 (0.92-1.08) H 04/29/17 21:30 APTT 26.9 SECONDS (23.3-32.5) 04/29/17 21:30 - Constitutional Appears: Non-toxic, Chronically Ill - Head Exam Head Exam: NORMOCEPHALIC - Eye Exam Eye Exam: absent: Scleral icterus - ENT Exam ENT Exam: Mucous Membranes Dry - Neck Exam Neck Exam: absent: Lymphadenopathy - Respiratory Exam Respiratory Exam: Decreased Breath Sounds - Cardiovascular Exam Cardiovascular Exam: REGULAR RHYTHM - GI/Abdominal Exam GI & Abdominal Exam: Distended, Soft Assessment and Plan (1) MRSA (methicillin resistant Staphylococcus aureus) carrier Status: Acute (2) MRSA (methicillin resistant Staphylococcus aureus) carrier Status: Acute (3) Abdominal pain Status: Acute (4) Acute on chronic renal insufficiency Status: Acute (5) ESRD (end stage renal disease) on dialysis Status: Acute (6) Hypertensive urgency Status: Acute
[2017-05-03 19:50] LABS: CREATININE, RANDOM URINE 69.1 mg/dL
[2017-05-03] MEDS: Aztreonam 1 GM in Sodium Chloride 0.9% 100 ML IVPB SCH (21:48)
[2017-05-04] MEDS: Aztreonam 1 GM in Sodium Chloride 0.9% 100 ML IVPB SCH ×2 (09:15→21:01)
[2017-05-04] MEDS: Pantoprazole 40 mg EC Tab PO SCH ×2 (09:16→17:41)
[2017-05-04] MEDS: Insulin Regular 100 units/ml SC SCH ×4 (09:17→21:21)
--- NOTE | 2017-05-04 09:43 | PN ---
DATE: 05/04/2017 The patient seen and examined. Interim events noted. Consults noted, appreciated. Infectious disea se followup and intervention noted and appreciated. The patient remains in regular medical floor. T he patient feels okay. No chest pain, no shortness of breath. Pain is adequately controlled. PHYSICAL EXAMINATION: GENERAL: The patient is in no acute distress. VITAL SIGNS: Stable. HEART: S1, S2 normal, regular. LUNGS: Good bilateral air exchange. ABDOMEN: Soft, nontender. EXTREMITIES: No calf swelling, no tenderness, no acute ischemia. The patient has chronic osteomyeli tis. CENTRAL NERVOUS SYSTEM: Essentially unchanged. DIAGNOSTIC DATA: Available diagnostic data reviewed. Overall, patient's general medical condition is stable. PLAN: As ordered. Case and plan discussed with patient. Joel Lake MD cc: [id number] TT: 05/04/2017 09:42:41 Confirmation # [id number] Dictation # [id number] kasi
--- NOTE | 2017-05-04 11:47 | CP.PCM.PN ---
Subjective - Date & Time of Evaluation Date of Evaluation: 05/04/17 Time of Evaluation: 11:44 - Subjective Subjective: Patient seen and evaluated at bedside, NAD. Patient is resting comfortably, bandage c/d/i to the RLE. Patient denies n/v/f/c/sob. Objective - Vital Signs/Intake and Output Vital Signs (last 24 hours): Temp Pulse Resp BP Pulse Ox 99.3 F 71 20 142/67 97 05/04/17 09:00 05/04/17 09:18 05/04/17 09:00 05/04/17 09:18 05/04/17 09:00 - Medications Medications: Current Medications Amlodipine Besylate (Norvasc) 10 mg PO DAILY [facility] Last Admin: 05/03/17 08:51 Dose: 10 mg Atenolol (Tenormin) 50 mg PO DAILY [facility] Last Admin: 05/04/17 09:18 Dose: 50 mg Bupropion HCl (Wellbutrin) 75 mg PO BID [facility] Last Admin: 05/04/17 09:18 Dose: 75 mg Clonidine HCl (Catapres) 0.3 mg PO TID [facility] Last Admin: 05/04/17 09:16 Dose: 0.3 mg Gabapentin (Neurontin) 100 mg PO TID [facility] Last Admin: 05/04/17 09:17 Dose: 100 mg Heparin Sodium (Porcine) (Heparin) 5,000 units SC Q12 [facility] PRN Reason: Protocol Last Admin: 05/04/17 09:16 Dose: 5,000 units Vancomycin HCl 1 gm/ Sodium (Chloride) 250 mls @ 166.667 mls/hr IVPB Q72 [facility] Last Admin: 05/03/17 16:36 Dose: 166.667 mls/hr Aztreonam 1 gm/ Sodium (Chloride) 100 mls @ 100 mls/hr IVPB Q12 [facility] Last Admin: 05/04/17 09:15 Dose: 100 mls/hr Insulin Human Regular (Humulin R) 0 units SC ACHS [facility] PRN Reason: Protocol Last Admin: 05/04/17 09:17 Dose: 2 units Metoclopramide HCl (Reglan) 10 mg IVP Q6H PRN PRN Reason: Nausea/Vomiting Last Admin: 04/30/17 13:14 Dose: 10 mg Minoxidil (Minoxidil) 5 mg PO DAILY [facility] Last Admin: 05/04/17 09:16 Dose: 5 mg Ondansetron HCl (Zofran Inj) 4 mg IVP Q6H PRN PRN Reason: Nausea/Vomiting Last Admin: 04/30/17 16:43 Dose: 4 mg Pantoprazole Sodium (Protonix Ec Tab) 40 mg PO BID [facility] Last Admin: 05/04/17 09:16 Dose: 40 mg Pentoxifylline (Pentoxil) 400 mg PO BID [facility] Last Admin: 05/04/17 09:15 Dose: 400 mg - Labs Labs: 05/03/17 06:30 05/03/17 06:30 PT 11.5 SECONDS (9.6-11.2) H 04/29/17 21:30 INR 1.11 (0.92-1.08) H 04/29/17 21:30 APTT 26.9 SECONDS (23.3-32.5) 04/29/17 21:30 - Constitutional Appears: Well, Non-toxic, No Acute Distress - Neurological Exam Neurological Exam: Oriented x3 - Psychiatric Exam Psychiatric exam: Normal Affect, Normal Mood - Additional Findings Additional findings: DERMATOLOGIC: Right foot ulceration with granular base, no drainage, no erythema, no malodor, no tracking or probing. The wound edges are mildly hyperkeratotic, no purulence , no malodor. Surrounding skin is intact. VASCULAR: PT pulse palpable on the right. Skin temperature is normal. Pedal pulses palpable on the left. NERUOLOGIC: Protective sensation absent ORTHOPEDIC: Right foot choparts amputation present. No pain on palpation to the right lower extremity. Assessment and Plan - Assessment and Plan (Free Text) Assessment: 46 year old male with right foot diabetic ulceration, choparts amputation. Plan: Patient seen and evaluated, d/w attending Dr. Baez. Patients right foot wound stable at this time, dressed with betadine, DSD. Patient has [facility] walker at bedside. Podiatry will continue to follow while in house
[2017-05-04] MEDS ORDERED: Hydrogen Peroxide 3% Soln (480ml) TP ONE (14:11)
--- NOTE | 2017-05-04 19:30 | CP.PCM.PN ---
Subjective - Date & Time of Evaluation Date of Evaluation: 05/04/17 Time of Evaluation: 17:00 - Subjective Subjective: Follow up Nephrology Consultation Note Assessment: Acute Kidney Injury likely due to hemodynamic, HTN urgency Chronic Kidney Disease Stage 4 (baseline 2.6-3.0) with 10 gram proteinuria likely due to diabetic nephropathy as pt also with hx of diabetic retinopathy Anemia, Secondary hyperparathyroidism, Hypertension, hypomagesemia Plan Hypertension control with meds as ordered. Patient not on ACEI/ARB due to [facility]. will add lasix 40 mg/day will add iron supplements supplement Magnesium oxide Monitor Input/Output, daily weights and renal function with basic metabolic panel Check for 25-OH vitamin D, phosphorus level. Check serum/urine protein electrophoresis with immunofixation Dose meds/antibiotics for reduced GFR. Avoid fleets enema/magnesium based laxatives. Avoid nephrotoxins/NSAIDs/ iodinated contrast (unless needed emergently) Glycemic control Further work up for as per primary team Thanks for allowing me to participate in care of your patient. Will follow patient with you. Please call if any Qs Dr Rigo Toro Office: [phone] Subjective: Noted events overnight. Patients feels okay. Denies chest pain, palpitation, shortness of breath, leg swelling. No urinary complaints Physical Examination: General Appearance: Comfortable, in no acute respiratory distress, co- operative. Vitals reviewed and noted as below Lungs: Normal respiratory rate/effort. Breath sounds bilateral equal and clear Heart: Normal rate. s1s2 normal. No rub or gallop. Extremities: 1+ edema. foot dressed Neurological: Patient is alert, awake and oriented to person, place and time. No focal deficit. Strength bilateral appropriate and equal Skin: Warm and dry. Normal turgor. No rash. Palpitation: Normal elasticity for age Abdomen: Abdomen is soft. Bowel sounds +. There is no abdominal tenderness, no guarding/rigidity or organomegaly : kidney or bladder not palpable Labs/imaging reviewed. Past medical history, past surgical history, family history, social history, allergy reviewed Work up: HIV/Hep B and C neg renal sono unremarkable urine pr/cr: 10 gram TSAT/ferritin 29%/355 Mg 1.2 PTH 111 Objective - Vital Signs/Intake and Output Vital Signs (last 24 hours): Temp Pulse Resp BP Pulse Ox 98.4 F 69 20 159/82 H 99 05/04/17 16:37 05/04/17 17:41 05/04/17 16:37 05/04/17 17:41 05/04/17 16:37 - Medications Medications: Current Medications Amlodipine Besylate (Norvasc) 10 mg PO DAILY [facility] Last Admin: 05/04/17 10:30 Dose: 10 mg Atenolol (Tenormin) 50 mg PO DAILY [facility] Last Admin: 05/04/17 09:18 Dose: 50 mg Bupropion HCl (Wellbutrin) 75 mg PO BID [facility] Last Admin: 05/04/17 17:41 Dose: 75 mg Clonidine HCl (Catapres) 0.3 mg PO TID [facility] Last Admin: 05/04/17 17:41 Dose: 0.3 mg Gabapentin (Neurontin) 100 mg PO TID [facility] Last Admin: 05/04/17 17:41 Dose: 100 mg Heparin Sodium (Porcine) (Heparin) 5,000 units SC Q12 [facility] PRN Reason: Protocol Last Admin: 05/04/17 09:16 Dose: 5,000 units Vancomycin HCl 1 gm/ Sodium (Chloride) 250 mls @ 166.667 mls/hr IVPB Q72 [facility] Last Admin: 05/03/17 16:36 Dose: 166.667 mls/hr Aztreonam 1 gm/ Sodium (Chloride) 100 mls @ 100 mls/hr IVPB Q12 [facility] Last Admin: 05/04/17 09:15 Dose: 100 mls/hr Insulin Human Regular (Humulin R) 0 units SC ACHS [facility] PRN Reason: Protocol Last Admin: 05/04/17 17:54 Dose: 3 units Metoclopramide HCl (Reglan) 10 mg IVP Q6H PRN PRN Reason: Nausea/Vomiting Last Admin: 04/30/17 13:14 Dose: 10 mg Minoxidil (Minoxidil) 5 mg PO DAILY [facility] Last Admin: 05/04/17 09:16 Dose: 5 mg Ondansetron HCl (Zofran Inj) 4 mg IVP Q6H PRN PRN Reason: Nausea/Vomiting Last Admin: 04/30/17 16:43 Dose: 4 mg Pantoprazole Sodium (Protonix Ec Tab) 40 mg PO BID [facility] Last Admin: 05/04/17 17:41 Dose: 40 mg Pentoxifylline (Pentoxil) 400 mg PO BID [facility] Last Admin: 05/04/17 17:41 Dose: 400 mg - Labs Labs: 05/03/17 06:30 05/03/17 06:30 PT 11.5 SECONDS (9.6-11.2) H 04/29/17 21:30 INR 1.11 (0.92-1.08) H 04/29/17 21:30 APTT 26.9 SECONDS (23.3-32.5) 04/29/17 21:30
[2017-05-04] MEDS: Magnesium Oxide 400 mg Tab UD PO SCH (21:04)
[2017-05-05] MEDS: Insulin Regular 100 units/ml SC SCH ×5 (07:57→21:33)
[2017-05-05] MEDS: Aztreonam 1 GM in Sodium Chloride 0.9% 100 ML IVPB SCH ×2 (08:31→21:44)
[2017-05-05] MEDS: ATENOLOL 100 MG TAB PO SCH (08:39)
[2017-05-05] MEDS: Pantoprazole 40 mg EC Tab PO SCH ×2 (08:39→17:10)
[2017-05-05] MEDS: Magnesium Oxide 400 mg Tab UD PO SCH ×2 (08:43→17:11)
--- NOTE | 2017-05-05 09:19 | PN ---
DATE: 05/05/2017 The patient seen and examined. Interim events noted. Consults noted, appreciated. The patient christopher ins on regular medical floor. The patient is sleepy, arousable, feels okay. Pain is adequately cont rolled. No chest pain, no shortness of breath. PHYSICAL EXAMINATION: GENERAL: The patient is in no acute distress. VITAL SIGNS: Stable. HEART: S1, S2 normal, regular. LUNGS: Good bilateral air entry. ABDOMEN: Soft, nontender. EXTREMITIES: The patient ulcer which essentially is unchanged and very slowly healing. No wm ma, no calf swelling, no tenderness, no acute ischemia. CENTRAL NERVOUS SYSTEM: Essentially unchanged. DIAGNOSTIC DATA: Available reviewed. Overall, patient is medically stable. PLAN: As ordered. Joel Lake MD cc: [phone] TT: 05/05/2017 09:18:57 Confirmation # [id number] Dictation # [id number]
[2017-05-05 09:30] LABS: ALB/GLOB RATIO 0.9 (1.0-2.1); BILIRUBIN,TOTAL 0.2 mg/dl (0.2-1.3); CALCIUM 8.2 mg/dL (8.4-10.2); PHOSPHOROUS 5.6 mg/dl (2.5-4.5); POTASSIUM 4.7 MMOL/L (3.6-5.0); TOTAL PROTEIN 6.8 G/DL (6.3-8.2)
[2017-05-05 09:38] LABS: HEMATOCRIT 32.1 % (35.0-51.0); MEAN CELL VOLUME 75.8 fl (80.0-94.0); MEAN CORPUSCULAR HEMOGLOBIN 24.4 pg (27.0-31.0); MEAN CORPUSCULAR HGB CONC 32.2 g/dL (33.0-37.0); RED CELL DISTRIBUTION WIDTH 15.3 % (11.5-14.5); WHITE BLOOD COUNT 9.1 K/uL (4.8-10.8)
--- NOTE | 2017-05-05 12:47 | CP.PCM.PN ---
Subjective - Date & Time of Evaluation Date of Evaluation: 05/05/17 Time of Evaluation: 08:00 - Subjective Subjective: afeb on IV rx wound care in progress Objective - Vital Signs/Intake and Output Vital Signs (last 24 hours): Temp Pulse Resp BP Pulse Ox 98.4 F 74 20 153/76 H 97 05/05/17 08:16 05/05/17 12:15 05/05/17 08:16 05/05/17 12:15 05/05/17 08:16 - Medications Medications: Current Medications Amlodipine Besylate (Norvasc) 10 mg PO DAILY [facility] Last Admin: 05/05/17 08:44 Dose: 10 mg Atenolol (Atenolol) 100 mg PO DAILY [facility] Last Admin: 05/05/17 08:39 Dose: 100 mg Bupropion HCl (Wellbutrin) 75 mg PO BID [facility] Last Admin: 05/05/17 08:39 Dose: 75 mg Clonidine HCl (Catapres) 0.3 mg PO TID [facility] Last Admin: 05/05/17 12:15 Dose: 0.3 mg Ferrous Gluconate (Fergon) 324 mg PO BID [facility] Last Admin: 05/05/17 08:45 Dose: 324 mg Furosemide (Lasix) 40 mg PO DAILY [facility] Last Admin: 05/05/17 08:40 Dose: 40 mg Gabapentin (Neurontin) 100 mg PO TID [facility] Last Admin: 05/05/17 12:14 Dose: 100 mg Vancomycin HCl 1 gm/ Sodium (Chloride) 250 mls @ 166.667 mls/hr IVPB Q72 [facility] Last Admin: 05/03/17 16:36 Dose: 166.667 mls/hr Aztreonam 1 gm/ Sodium (Chloride) 100 mls @ 100 mls/hr IVPB Q12 [facility] Last Admin: 05/05/17 08:31 Dose: 100 mls/hr Insulin Human Regular (Humulin R) 0 units SC ACHS [facility] PRN Reason: Protocol Last Admin: 05/05/17 12:17 Dose: 4 units Magnesium Oxide (Mag-Ox) 400 mg PO BID [facility] Last Admin: 05/05/17 08:43 Dose: 400 mg Minoxidil (Minoxidil) 5 mg PO DAILY [facility] Last Admin: 05/05/17 08:44 Dose: 5 mg Ondansetron HCl (Zofran Inj) 4 mg IVP Q6H PRN PRN Reason: Nausea/Vomiting Last Admin: 04/30/17 16:43 Dose: 4 mg Pantoprazole Sodium (Protonix Ec Tab) 40 mg PO BID [facility] Last Admin: 05/05/17 08:39 Dose: 40 mg Pentoxifylline (Pentoxil) 400 mg PO BID [facility] Last Admin: 05/05/17 08:39 Dose: 400 mg - Labs Labs: 05/05/17 06:45 05/05/17 06:45 PT 11.5 SECONDS (9.6-11.2) H 04/29/17 21:30 INR 1.11 (0.92-1.08) H 04/29/17 21:30 APTT 26.9 SECONDS (23.3-32.5) 04/29/17 21:30 - Constitutional Appears: Non-toxic, Chronically Ill - Head Exam Head Exam: NORMOCEPHALIC - Eye Exam Eye Exam: PERRL Pupil Exam: NORMAL ACCOMODATION - Neck Exam Neck Exam: absent: Lymphadenopathy - Respiratory Exam Respiratory Exam: Decreased Breath Sounds, Clear to Ausculation Bilateral - Cardiovascular Exam Cardiovascular Exam: REGULAR RHYTHM - GI/Abdominal Exam GI & Abdominal Exam: Distended, Soft - Rectal Exam Rectal Exam: Deferred - Exam Exam: NORMAL INSPECTION - Extremities Exam Extremities Exam: absent: Pedal Edema - Back Exam Back Exam: absent: CVA tenderness (L), CVA tenderness (R) - Neurological Exam Neurological Exam: Alert, Awake, Oriented x3 - Psychiatric Exam Psychiatric exam: Normal Mood - Skin Skin Exam: Dry Additional comments: DERMATOLOGIC: Right foot ulceration with granular base, no drainage, no erythema, no malodor, no tracking or probing. The wound edges are mildly hyperkeratotic, no purulence , no malodor. Surrounding skin is intact. VASCULAR: PT pulse palpable on the right. Skin temperature is normal. Pedal pulses palpable on the left. NERUOLOGIC: Protective sensation absent ORTHOPEDIC: Right foot choparts amputation present. No pain on palpation to the right lower extremity. Assessment and Plan (1) MRSA (methicillin resistant Staphylococcus aureus) carrier Status: Acute (2) MRSA (methicillin resistant Staphylococcus aureus) carrier Status: Acute (3) Abdominal pain Status: Acute (4) Acute on chronic renal insufficiency Status: Acute (5) ESRD (end stage renal disease) on dialysis Status: Acute (6) Hypertensive urgency Status: Acute - Assessment and Plan (Free Text) Assessment: cont iv rx
--- NOTE | 2017-05-05 13:05 | CP.PCM.PN ---
Subjective - Date & Time of Evaluation Date of Evaluation: 05/05/17 Time of Evaluation: 13:04 - Subjective Subjective: Patient seen and evaluated at bedside, NAD. No complaints at this time. Bandage is clean dry and intact to the right lower extremity. Denies n/v/f/c/sob. Objective - Vital Signs/Intake and Output Vital Signs (last 24 hours): Temp Pulse Resp BP Pulse Ox 98.4 F 74 20 153/76 H 97 05/05/17 08:16 05/05/17 12:15 05/05/17 08:16 05/05/17 12:15 05/05/17 08:16 - Medications Medications: Current Medications Amlodipine Besylate (Norvasc) 10 mg PO DAILY [facility] Last Admin: 05/05/17 08:44 Dose: 10 mg Atenolol (Atenolol) 100 mg PO DAILY [facility] Last Admin: 05/05/17 08:39 Dose: 100 mg Bupropion HCl (Wellbutrin) 75 mg PO BID [facility] Last Admin: 05/05/17 08:39 Dose: 75 mg Clonidine HCl (Catapres) 0.3 mg PO TID [facility] Last Admin: 05/05/17 12:15 Dose: 0.3 mg Ferrous Gluconate (Fergon) 324 mg PO BID [facility] Last Admin: 05/05/17 08:45 Dose: 324 mg Furosemide (Lasix) 40 mg PO DAILY [facility] Last Admin: 05/05/17 08:40 Dose: 40 mg Gabapentin (Neurontin) 100 mg PO TID [facility] Last Admin: 05/05/17 12:14 Dose: 100 mg Vancomycin HCl 1 gm/ Sodium (Chloride) 250 mls @ 166.667 mls/hr IVPB Q72 [facility] Last Admin: 05/03/17 16:36 Dose: 166.667 mls/hr Aztreonam 1 gm/ Sodium (Chloride) 100 mls @ 100 mls/hr IVPB Q12 [facility] Last Admin: 05/05/17 08:31 Dose: 100 mls/hr Insulin Human Regular (Humulin R) 0 units SC ACHS [facility] PRN Reason: Protocol Last Admin: 05/05/17 12:17 Dose: 4 units Magnesium Oxide (Mag-Ox) 400 mg PO BID [facility] Last Admin: 05/05/17 08:43 Dose: 400 mg Minoxidil (Minoxidil) 5 mg PO DAILY [facility] Last Admin: 05/05/17 08:44 Dose: 5 mg Ondansetron HCl (Zofran Inj) 4 mg IVP Q6H PRN PRN Reason: Nausea/Vomiting Last Admin: 04/30/17 16:43 Dose: 4 mg Pantoprazole Sodium (Protonix Ec Tab) 40 mg PO BID [facility] Last Admin: 05/05/17 08:39 Dose: 40 mg Pentoxifylline (Pentoxil) 400 mg PO BID [facility] Last Admin: 05/05/17 08:39 Dose: 400 mg - Labs Labs: 05/05/17 06:45 05/05/17 06:45 PT 11.5 SECONDS (9.6-11.2) H 04/29/17 21:30 INR 1.11 (0.92-1.08) H 04/29/17 21:30 APTT 26.9 SECONDS (23.3-32.5) 04/29/17 21:30 - Constitutional Appears: Well, Non-toxic, No Acute Distress - Neurological Exam Neurological Exam: Oriented x3 - Psychiatric Exam Psychiatric exam: Normal Affect, Normal Mood - Additional Findings Additional findings: DERMATOLOGIC: Right foot ulceration with granular base, no drainage, no erythema, no malodor, no tracking or probing. The wound edges are mildly hyperkeratotic, no purulence , no malodor. Surrounding skin is intact. VASCULAR: PT pulse palpable on the right. Skin temperature is normal. Pedal pulses palpable on the left. NERUOLOGIC: Protective sensation absent ORTHOPEDIC: Right foot choparts amputation present. No pain on palpation to the right lower extremity. Assessment and Plan - Assessment and Plan (Free Text) Assessment: 46 year old male with diabetic ulceration to the right foot Plan: Patient seen and evaluated, d/w attending Dr. Baez Patients right foot bandage changed with betadine, DSD Patient has [place] walker at bedside Continue IV abx per ID Podiatry will continue to follow
[2017-05-05 15:43] VITALS: BMI 38.0
--- NOTE | 2017-05-05 16:52 | CP.PCM.PN ---
Subjective - Date & Time of Evaluation Date of Evaluation: 05/05/17 Time of Evaluation: 16:51 - Subjective Subjective: Follow up Nephrology Consultation Note Assessment: Acute Kidney Injury likely due to hemodynamic, HTN urgency Chronic Kidney Disease Stage 4 (baseline 2.6-3.0) with 10 gram proteinuria likely due to diabetic nephropathy as pt also with hx of diabetic retinopathy, gastroparesis Anemia, Secondary hyperparathyroidism, Hypertension, hypomagesemia Plan Hypertension control with meds as ordered. Patient not on ACEI/ARB due to JUAN LUIS but can be resume at d/c. started on lasix 40 mg/day added iron supplements supplemented Magnesium oxide Monitor Input/Output, daily weights and renal function with basic metabolic panel Check for 25-OH vitamin D, phosphorus level. Check serum/urine protein electrophoresis with immunofixation Dose meds/antibiotics for reduced GFR. Avoid fleets enema/magnesium based laxatives. Avoid nephrotoxins/NSAIDs/ iodinated contrast (unless needed emergently) Glycemic control Further work up for as per primary team Thanks for allowing me to participate in care of your patient. Will follow patient with you. Please call if any Qs Dr Rigo Toro Office: [phone] Subjective: Noted events overnight. Patients feels okay. Denies chest pain, palpitation, shortness of breath, leg swelling. No urinary complaints Physical Examination: General Appearance: Comfortable, in no acute respiratory distress, co- operative. Vitals reviewed and noted as below Lungs: Normal respiratory rate/effort. Breath sounds bilateral equal and clear Heart: Normal rate. s1s2 normal. No rub or gallop. Extremities: 1+ edema on Rt leg with foot dressed Neurological: Patient is alert, awake and oriented to person, place and time. No focal deficit. Strength bilateral appropriate and equal Skin: Warm and dry. Normal turgor. No rash. Palpitation: Normal elasticity for age Abdomen: Abdomen is soft. Bowel sounds +. There is no abdominal tenderness, no guarding/rigidity or organomegaly : kidney or bladder not palpable Labs/imaging reviewed. Past medical history, past surgical history, family history, social history, allergy reviewed Work up: HIV/Hep B and C neg renal sono unremarkable urine pr/cr: 10 gram TSAT/ferritin 29%/355 Mg 1.2 PTH 111 Objective - Vital Signs/Intake and Output Vital Signs (last 24 hours): Temp Pulse Resp BP Pulse Ox 97.5 F L 63 20 121/73 98 05/05/17 16:11 05/05/17 16:11 05/05/17 16:11 05/05/17 16:11 05/05/17 16:11 - Medications Medications: Current Medications Amlodipine Besylate (Norvasc) 10 mg PO DAILY [facility] Last Admin: 05/05/17 08:44 Dose: 10 mg Atenolol (Atenolol) 100 mg PO DAILY [facility] Last Admin: 05/05/17 08:39 Dose: 100 mg Bupropion HCl (Wellbutrin) 75 mg PO BID [facility] Last Admin: 05/05/17 08:39 Dose: 75 mg Clonidine HCl (Catapres) 0.3 mg PO TID [facility] Last Admin: 05/05/17 12:15 Dose: 0.3 mg Ferrous Gluconate (Fergon) 324 mg PO BID [facility] Last Admin: 05/05/17 08:45 Dose: 324 mg Furosemide (Lasix) 40 mg PO DAILY [facility] Last Admin: 05/05/17 08:40 Dose: 40 mg Gabapentin (Neurontin) 100 mg PO TID [facility] Last Admin: 05/05/17 12:14 Dose: 100 mg Vancomycin HCl 1 gm/ Sodium (Chloride) 250 mls @ 166.667 mls/hr IVPB Q72 [facility] Last Admin: 05/03/17 16:36 Dose: 166.667 mls/hr Aztreonam 1 gm/ Sodium (Chloride) 100 mls @ 100 mls/hr IVPB Q12 [facility] Last Admin: 05/05/17 08:31 Dose: 100 mls/hr Insulin Human Regular (Humulin R) 0 units SC ACHS [facility] PRN Reason: Protocol Last Admin: 05/05/17 12:17 Dose: 4 units Magnesium Oxide (Mag-Ox) 400 mg PO BID [facility] Last Admin: 05/05/17 08:43 Dose: 400 mg Minoxidil (Minoxidil) 5 mg PO DAILY [facility] Last Admin: 05/05/17 08:44 Dose: 5 mg Ondansetron HCl (Zofran Inj) 4 mg IVP Q6H PRN PRN Reason: Nausea/Vomiting Last Admin: 04/30/17 16:43 Dose: 4 mg Pantoprazole Sodium (Protonix Ec Tab) 40 mg PO BID [facility] Last Admin: 05/05/17 08:39 Dose: 40 mg Pentoxifylline (Pentoxil) 400 mg PO BID [facility] Last Admin: 05/05/17 08:39 Dose: 400 mg - Labs Labs: 05/05/17 06:45 05/05/17 06:45 PT 11.5 SECONDS (9.6-11.2) H 04/29/17 21:30 INR 1.11 (0.92-1.08) H 04/29/17 21:30 APTT 26.9 SECONDS (23.3-32.5) 04/29/17 21:30
--- NOTE | 2017-05-06 06:24 | CP.PCM.PN ---
Subjective - Date & Time of Evaluation Date of Evaluation: 05/06/17 Time of Evaluation: 06:21 - Subjective Subjective: 46 y/o male seen at bedside in NAD and AAOx3, for right foot ulceration. Patient denies any acute events overnight. He denies any pain to his lower extremity. Patients dressing remains c.d.i. He denies n/f/v/d/c/sob. Objective - Vital Signs/Intake and Output Vital Signs (last 24 hours): Temp Pulse Resp BP Pulse Ox 97.9 F 94 H 20 158/92 H 98 05/06/17 01:28 05/06/17 01:28 05/06/17 01:28 05/06/17 01:28 05/06/17 01:28 - Medications Medications: Current Medications Amlodipine Besylate (Norvasc) 10 mg PO DAILY [facility] Last Admin: 05/05/17 08:44 Dose: 10 mg Atenolol (Atenolol) 100 mg PO DAILY [facility] Last Admin: 05/05/17 08:39 Dose: 100 mg Bupropion HCl (Wellbutrin) 75 mg PO BID [facility] Last Admin: 05/05/17 17:11 Dose: 75 mg Clonidine HCl (Catapres) 0.3 mg PO TID [facility] Last Admin: 05/05/17 17:10 Dose: 0.3 mg Ferrous Gluconate (Fergon) 324 mg PO BID [facility] Last Admin: 05/05/17 17:13 Dose: 324 mg Furosemide (Lasix) 40 mg PO DAILY [facility] Last Admin: 05/05/17 08:40 Dose: 40 mg Gabapentin (Neurontin) 100 mg PO TID [facility] Last Admin: 05/05/17 17:10 Dose: 100 mg Heparin Sodium (Porcine) (Heparin) 5,000 units SC Q12 [facility] PRN Reason: Protocol Last Admin: 05/05/17 21:44 Dose: 5,000 units Vancomycin HCl 1 gm/ Sodium (Chloride) 250 mls @ 166.667 mls/hr IVPB Q72 [facility] Last Admin: 05/03/17 16:36 Dose: 166.667 mls/hr Aztreonam 1 gm/ Sodium (Chloride) 100 mls @ 100 mls/hr IVPB Q12 [facility] Last Admin: 05/05/17 21:44 Dose: 100 mls/hr Insulin Human Regular (Humulin R) 0 units SC ACHS [facility] PRN Reason: Protocol Last Admin: 05/05/17 21:33 Dose: Not Given Magnesium Oxide (Mag-Ox) 400 mg PO BID [facility] Last Admin: 05/05/17 17:11 Dose: 400 mg Minoxidil (Minoxidil) 5 mg PO DAILY [facility] Last Admin: 05/05/17 08:44 Dose: 5 mg Ondansetron HCl (Zofran Inj) 4 mg IVP Q6H PRN PRN Reason: Nausea/Vomiting Last Admin: 04/30/17 16:43 Dose: 4 mg Pantoprazole Sodium (Protonix Ec Tab) 40 mg PO BID [facility] Last Admin: 05/05/17 17:10 Dose: 40 mg Pentoxifylline (Pentoxil) 400 mg PO BID [facility] Last Admin: 05/05/17 17:11 Dose: 400 mg - Labs Labs: 05/05/17 06:45 05/05/17 06:45 PT 11.5 SECONDS (9.6-11.2) H 04/29/17 21:30 INR 1.11 (0.92-1.08) H 04/29/17 21:30 APTT 26.9 SECONDS (23.3-32.5) 04/29/17 21:30 - Constitutional Appears: Well, Non-toxic, No Acute Distress - Extremities Exam Additional comments: right lower extremity focused: Vasc: DP nonpalpable, PT palpable, TG wnl, no edema neuro: grossly diminished derm: right foot ulceration plantar lateral aspect of stump with granular base, fibrotic border, no purulence, no malodor, no ascending cellulitis, no tunneling or undermining ortho: choparts amputation present, no pain on palpation to RLE - Neurological Exam Neurological Exam: Alert, Awake, Oriented x3 - Psychiatric Exam Psychiatric exam: Normal Affect, Normal Mood Assessment and Plan - Assessment and Plan (Free Text) Assessment: 46 y/o male seen at bedside for right foot diabetic ulceration Plan: patient evaluated and chart reviewed discussed in detail with attending, Dr. Baez labs and vitals reviewed; afebrile applied betadine, DSD to right LE cont. IV abx as per ID podiatry will continue to follow while patient remains in house
[2017-05-06] MEDS: ATENOLOL 100 MG TAB PO SCH (09:20)
[2017-05-06] MEDS: Aztreonam 1 GM in Sodium Chloride 0.9% 100 ML IVPB SCH ×2 (09:20→21:18)
[2017-05-06] MEDS: Insulin Regular 100 units/ml SC SCH ×4 (09:23→21:44)
[2017-05-06] MEDS: Magnesium Oxide 400 mg Tab UD PO SCH ×2 (09:24→16:21)
[2017-05-06] MEDS: Pantoprazole 40 mg EC Tab PO SCH ×2 (09:25→16:20)
--- NOTE | 2017-05-06 09:32 | PN ---
DATE: 05/06/2017 The patient is seen and examined. Interim events noted. Consults noted and appreciated. Infectious disease and podiatry followup and intervention noted and appreciated. The patient remains on medica l floor with MRSA isolation. The patient feels okay. Pain is present, but controlled. No chest krissy n or shortness of breath. PHYSICAL EXAMINATION: GENERAL: The patient is in no acute distress. VITAL SIGNS: Stable. HEART: S1, S2 normal, regular. LUNGS: Good bilateral air exchange. ABDOMEN: Soft, nontender. EXTREMITIES: No edema, no calf swelling, no tenderness, no acute ischemia. The patient is status po st podiatric procedure. CENTRAL NERVOUS SYSTEM: Essentially unchanged. DIAGNOSTIC DATA: Available diagnostic data reviewed. Overall, the patient's general medical condition is stable. The patient remains on intravenous antib iotic. PLAN: As ordered. Joel Lake MD cc: [phone] TT: 05/06/2017 09:31:34 Confirmation # [id number] Dictation # [id number]
--- NOTE | 2017-05-06 10:51 | CP.PCM.PN ---
Subjective - Date & Time of Evaluation Date of Evaluation: 05/06/17 Time of Evaluation: 10:44 - Subjective Subjective: No significant changes clinically No overnight event reported Clinically appears to be stable Kidney function appeared to be stable Continue monitoring Follow-up BMP in a.m. Objective - Vital Signs/Intake and Output Vital Signs (last 24 hours): Temp Pulse Resp BP Pulse Ox 98.3 F 63 20 172/85 H 97 05/06/17 07:57 05/06/17 09:25 05/06/17 07:57 05/06/17 09:25 05/06/17 07:57 - Medications Medications: Current Medications Amlodipine Besylate (Norvasc) 10 mg PO DAILY [facility] Last Admin: 05/06/17 09:25 Dose: 10 mg Atenolol (Atenolol) 100 mg PO DAILY [facility] Last Admin: 05/06/17 09:20 Dose: 100 mg Bupropion HCl (Wellbutrin) 75 mg PO BID [facility] Last Admin: 05/06/17 09:26 Dose: 75 mg Clonidine HCl (Catapres) 0.3 mg PO TID [facility] Last Admin: 05/06/17 09:21 Dose: 0.3 mg Ferrous Gluconate (Fergon) 324 mg PO BID [facility] Last Admin: 05/06/17 09:22 Dose: 324 mg Furosemide (Lasix) 40 mg PO DAILY [facility] Last Admin: 05/06/17 09:24 Dose: 40 mg Gabapentin (Neurontin) 100 mg PO TID [facility] Last Admin: 05/06/17 09:24 Dose: 100 mg Heparin Sodium (Porcine) (Heparin) 5,000 units SC Q12 [facility] PRN Reason: Protocol Last Admin: 05/06/17 09:23 Dose: 5,000 units Vancomycin HCl 1 gm/ Sodium (Chloride) 250 mls @ 166.667 mls/hr IVPB Q72 [facility] Last Admin: 05/06/17 09:26 Dose: 166.667 mls/hr Aztreonam 1 gm/ Sodium (Chloride) 100 mls @ 100 mls/hr IVPB Q12 [facility] Last Admin: 05/06/17 09:20 Dose: 100 mls/hr Insulin Human Regular (Humulin R) 0 units SC ACHS [facility] PRN Reason: Protocol Last Admin: 05/06/17 09:23 Dose: 3 units Magnesium Oxide (Mag-Ox) 400 mg PO BID [facility] Last Admin: 05/06/17 09:24 Dose: 400 mg Metformin HCl (Glucophage) 500 mg PO BIDWM [facility] Last Admin: 05/06/17 09:22 Dose: 500 mg Minoxidil (Minoxidil) 5 mg PO DAILY [facility] Last Admin: 05/06/17 09:24 Dose: 5 mg Ondansetron HCl (Zofran Inj) 4 mg IVP Q6H PRN PRN Reason: Nausea/Vomiting Last Admin: 04/30/17 16:43 Dose: 4 mg Pantoprazole Sodium (Protonix Ec Tab) 40 mg PO BID [facility] Last Admin: 05/06/17 09:25 Dose: 40 mg Pentoxifylline (Pentoxil) 400 mg PO BID [facility] Last Admin: 05/06/17 09:25 Dose: 400 mg - Labs Labs: 05/05/17 06:45 05/05/17 06:45 PT 11.5 SECONDS (9.6-11.2) H 04/29/17 21:30 INR 1.11 (0.92-1.08) H 04/29/17 21:30 APTT 32.2 Seconds (25.6-37.1) 05/06/17 07:48 Assessment and Plan (1) Acute on chronic renal insufficiency Status: Acute (2) Gastroparesis Status: Acute (3) Hypertensive urgency Status: Acute
[2017-05-06] MEDS ORDERED: Lidocaine 1% Inj (20ml) ONE (14:00)
[2017-05-06] MEDS ORDERED: DAPTOmycin 500 mg Inj (Cubicin) IV SCH (14:00)
--- NOTE | 2017-05-06 14:20 | PCM.SURG1 ---
Surgeon's Initial Post Op Note - Surgeon's Notes Surgeon: Cheko Vega Palletiser Operator: None Type of Anesthesia: Local Pre-Operative Diagnosis: Infection requiring jail IV abx Operative Findings: Patent right basilic vein Post-Operative Diagnosis: Infection requiring assistant terminal manager IV abx Operation Performed: Placement of Single lumen picc via right basilic vein, 43 cm. Tip in SVC. Specimen/Specimens Removed: none Estimated Blood Loss: EBL {In ML}: 2 Blood Products Given: N/A Drains Used: No Drains Post-Op Condition: Fair Date of Surgery/Procedure: 05/06/17 Time of Surgery/Procedure: 14:15
[2017-05-06 17:01] LABS: TOTAL PROTEIN, SERUM 5.9 g/dL (6.1-8.1)
[2017-05-07 01:27] VITALS: O2SAT 97
[2017-05-07] MEDS: Insulin Regular 100 units/ml SC SCH ×2 (06:53→12:09)
[2017-05-07 08:11] LABS: HEMATOCRIT 31.7 % (35.0-51.0); MEAN CELL VOLUME 75.9 fl (80.0-94.0); MEAN CORPUSCULAR HEMOGLOBIN 24.4 pg (27.0-31.0); MEAN CORPUSCULAR HGB CONC 32.2 g/dL (33.0-37.0); RED CELL DISTRIBUTION WIDTH 15.4 % (11.5-14.5); WHITE BLOOD COUNT 10.1 K/uL (4.8-10.8)
[2017-05-07 08:18] LABS: ALB/GLOB RATIO 0.9 (1.0-2.1); BILIRUBIN,TOTAL 0.2 mg/dl (0.2-1.3); CALCIUM 8.4 mg/dL (8.4-10.2); MAGNESIUM 1.2 MG/DL (1.6-2.3); POTASSIUM 5.3 MMOL/L (3.6-5.0)
[2017-05-07 08:25] VITALS: BP 174/84; PULSE 69; RESP 20; TEMP 99
[2017-05-07] MEDS ORDERED: Sod Polystyrene Sulf 15 gm/60 ml Oral Susp PO ONE (09:00)
[2017-05-07 09:57] LABS: CREATININE, 24 HOUR URINE 1.59 g/24 h (0.63-2.50); CREATININE, URINE 0.41 g/L
--- NOTE | 2017-05-07 10:40 | CP.PCM.PN ---
Subjective - Date & Time of Evaluation Date of Evaluation: 05/07/17 Time of Evaluation: 10:38 - Subjective Subjective: No significant changes clinically Patient receiving antibiotics In summary CK D stage IV stable was GFR about 20 Significant proteinuria over 11 GM patient will need kidney biopsy aware when his condition is stable and improving Urine magnesium patient need magnesium supplement orally Low vitamin D patient will need vitamin D supplement orally Objective - Vital Signs/Intake and Output Vital Signs (last 24 hours): Temp Pulse Resp BP Pulse Ox 99 F 69 20 174/84 H 97 05/07/17 08:24 05/07/17 08:24 05/07/17 08:24 05/07/17 08:24 05/07/17 08:24 - Medications Medications: Current Medications Amlodipine Besylate (Norvasc) 10 mg PO DAILY [facility] Last Admin: 05/06/17 09:25 Dose: 10 mg Atenolol (Atenolol) 100 mg PO DAILY [facility] Last Admin: 05/06/17 09:20 Dose: 100 mg Bupropion HCl (Wellbutrin) 75 mg PO BID [facility] Last Admin: 05/06/17 16:20 Dose: 75 mg Clonidine HCl (Catapres) 0.3 mg PO TID [facility] Last Admin: 05/06/17 16:22 Dose: 0.3 mg Ferrous Gluconate (Fergon) 324 mg PO BID [facility] Last Admin: 05/06/17 16:22 Dose: 324 mg Furosemide (Lasix) 40 mg PO DAILY [facility] Last Admin: 05/06/17 09:24 Dose: 40 mg Gabapentin (Neurontin) 100 mg PO TID [facility] Last Admin: 05/06/17 16:28 Dose: 100 mg Heparin Sodium (Porcine) (Heparin) 5,000 units SC Q12 [facility] PRN Reason: Protocol Last Admin: 05/06/17 21:19 Dose: 5,000 units Daptomycin 680 mg/ Sodium (Chloride) 100 mls @ 100 mls/hr IV Q48H [facility] Stop: 05/12/17 10:01 Insulin Human Regular (Humulin R) 0 units SC ACHS [facility] PRN Reason: Protocol Last Admin: 05/07/17 06:53 Dose: 3 units Magnesium Oxide (Mag-Ox) 400 mg PO BID [facility] Last Admin: 05/06/17 16:21 Dose: 400 mg Metformin HCl (Glucophage) 500 mg PO BIDWM [facility] Last Admin: 05/06/17 16:22 Dose: 500 mg Minoxidil (Minoxidil) 5 mg PO DAILY [facility] Last Admin: 05/06/17 09:24 Dose: 5 mg Ondansetron HCl (Zofran Inj) 4 mg IVP Q6H PRN PRN Reason: Nausea/Vomiting Last Admin: 04/30/17 16:43 Dose: 4 mg Pantoprazole Sodium (Protonix Ec Tab) 40 mg PO BID [facility] Last Admin: 05/06/17 16:20 Dose: 40 mg Pentoxifylline (Pentoxil) 400 mg PO BID [facility] Last Admin: 05/06/17 16:20 Dose: 400 mg - Labs Labs: 05/07/17 07:05 05/07/17 07:05 PT 11.5 SECONDS (9.6-11.2) H 04/29/17 21:30 INR 1.11 (0.92-1.08) H 04/29/17 21:30 APTT 32.2 Seconds (25.6-37.1) 05/06/17 07:48 Assessment and Plan (1) Acute on chronic renal insufficiency Status: Acute (2) Gastroparesis Status: Acute (3) Hypertensive urgency Status: Acute
--- NOTE | 2017-05-07 10:41 | CP.PCM.PN ---
Subjective - Date & Time of Evaluation Date of Evaluation: 05/07/17 Time of Evaluation: 10:39 - Subjective Subjective: 46 y/o male seen bedside for right foot wound. Pt appears in NAD and is AAOx3. Pt denies of any acute overnight events. He denies of having any pain to his feet. Pt denies of any F/N/V/C/SOB. Objective - Vital Signs/Intake and Output Vital Signs (last 24 hours): Temp Pulse Resp BP Pulse Ox 99 F 69 20 174/84 H 97 05/07/17 08:24 05/07/17 08:24 05/07/17 08:24 05/07/17 08:24 05/07/17 08:24 - Medications Medications: Current Medications Amlodipine Besylate (Norvasc) 10 mg PO DAILY [facility] Last Admin: 05/06/17 09:25 Dose: 10 mg Atenolol (Atenolol) 100 mg PO DAILY [facility] Last Admin: 05/06/17 09:20 Dose: 100 mg Bupropion HCl (Wellbutrin) 75 mg PO BID [facility] Last Admin: 05/06/17 16:20 Dose: 75 mg Clonidine HCl (Catapres) 0.3 mg PO TID [facility] Last Admin: 05/06/17 16:22 Dose: 0.3 mg Ferrous Gluconate (Fergon) 324 mg PO BID [facility] Last Admin: 05/06/17 16:22 Dose: 324 mg Furosemide (Lasix) 40 mg PO DAILY [facility] Last Admin: 05/06/17 09:24 Dose: 40 mg Gabapentin (Neurontin) 100 mg PO TID [facility] Last Admin: 05/06/17 16:28 Dose: 100 mg Heparin Sodium (Porcine) (Heparin) 5,000 units SC Q12 [facility] PRN Reason: Protocol Last Admin: 05/06/17 21:19 Dose: 5,000 units Daptomycin 680 mg/ Sodium (Chloride) 100 mls @ 100 mls/hr IV Q48H [facility] Stop: 05/12/17 10:01 Insulin Human Regular (Humulin R) 0 units SC ACHS [facility] PRN Reason: Protocol Last Admin: 05/07/17 06:53 Dose: 3 units Magnesium Oxide (Mag-Ox) 400 mg PO BID [facility] Last Admin: 05/06/17 16:21 Dose: 400 mg Metformin HCl (Glucophage) 500 mg PO BIDWM [facility] Last Admin: 05/06/17 16:22 Dose: 500 mg Minoxidil (Minoxidil) 5 mg PO DAILY [facility] Last Admin: 05/06/17 09:24 Dose: 5 mg Ondansetron HCl (Zofran Inj) 4 mg IVP Q6H PRN PRN Reason: Nausea/Vomiting Last Admin: 04/30/17 16:43 Dose: 4 mg Pantoprazole Sodium (Protonix Ec Tab) 40 mg PO BID [facility] Last Admin: 05/06/17 16:20 Dose: 40 mg Pentoxifylline (Pentoxil) 400 mg PO BID [facility] Last Admin: 05/06/17 16:20 Dose: 400 mg - Labs Labs: 05/07/17 07:05 05/07/17 07:05 PT 11.5 SECONDS (9.6-11.2) H 04/29/17 21:30 INR 1.11 (0.92-1.08) H 04/29/17 21:30 APTT 32.2 Seconds (25.6-37.1) 05/06/17 07:48 - Constitutional Appears: Well, Non-toxic, No Acute Distress - Extremities Exam Additional comments: Right foot focused: VASC: DP pulses are nonpalpable, PT pulses are palpable, no pitting or non- pitting edema noted, TG: warm to cool DERM: ulceration present of the lateral aspect of the right foot, wound appears to have granular base with fibrotic border, no purulence, no malodor, no ascending cellulitis, no tunneling or undermining present NEURO: Grossly diminished ORTHO: Choparts amputation - Neurological Exam Neurological Exam: Alert, Altered, Awake, Oriented x3 Assessment and Plan - Assessment and Plan (Free Text) Assessment: 46 y/o male seen bedside for right foot ulceration Plan: Pt evaluated and chart reviewed Pt discussed with attending Dr. Baez Vitals and labs reviewed Wound dressed using DSD, betadine to RLE Continue IV abx as per ID Podiatry to continue following the pt while in house
[2017-05-07] MEDS: ATENOLOL 100 MG TAB PO SCH (11:53)
[2017-05-07] MEDS: Magnesium Oxide 400 mg Tab UD PO SCH (11:53)
[2017-05-07] MEDS: Pantoprazole 40 mg EC Tab PO SCH (11:54)
--- NOTE | 2017-05-07 13:50 | VASCULAR ---
PROCEDURE: Date of procedure: 05/06/2017 Procedure: 1. Placement of a right arm PICC with ultrasound and fluoroscopic guidance, CPT 94576 2. PICC tip confirmation with spot radiograph and is in the superior vena cava Medications: 1 percent lidocaine Total Fluoro time: 15.1 seconds Radiation: 2.76 mGy EBL: 2 cc HISTORY: infection requiring long-term IV antibiotics TECHNIQUE: Following informed consent and procedure time-out, the patient was placed supine on the interventional table and the right arm prepped and draped in the usual sterile fashion. Ultrasound showed a patent and compressible right basilic vein. After the skin was anesthetized with lidocaine, the basilic vein was accessed with micro micropuncture technique using ultrasound guidance. A guidewire was then advanced under fluoroscopic guidance into the superior vena cava. An image documenting ultrasound guidance for vascular access was permanently saved. The length of the single-lumen 4 [place] PICC was trimmed to 42 centimeters and advanced through a peel-away sheath. The PICC was position with tip of PICC confirm a spot radiograph the superior vena cava. The PICC was secured to the patient's skin. The PICC was flushed. A biopatch and sterile dressing was applied. IMPRESSION: Placement of a single-lumen 4 [place] PICC trimmed to 42 centimeters via right basilic vein. The tip of the PICC is confirmed with spot radiograph and is in the superior vena cava.
--- NOTE | 2017-05-07 17:10 | CP.PCM.DIS ---
Provider - Provider Date of Admission: 04/29/17 23:25 Attending physician: Joel Lake MD Time Spent in preparation of Discharge (in minutes): 30 Diagnosis - Discharge Diagnosis (1) Diabetic foot infection Status: Acute (2) Hypertension Status: Chronic (3) Acute on chronic renal insufficiency Status: Acute (4) Hypomagnesemia Status: Acute (5) Gastroparesis Status: Acute (6) Type 2 diabetes mellitus Status: Chronic Hospital Course - Lab Results Lab Results: Micro Results 05/02/17 07:52 Naris MRSA Culture (Admit) - Final MRSA DETECTED 04/30/17 07:25 Naris MRSA Culture (Admit) - Final MRSA DETECTED Most Recent Lab Values WBC 10.1 K/uL (4.8-10.8) 05/07/17 07:05 RBC 4.18 Mil/uL (4.40-5.90) L 05/07/17 07:05 Hgb 10.2 g/dL (12.0-18.0) L 05/07/17 07:05 Hct 31.7 % (35.0-51.0) L 05/07/17 07:05 MCV 75.9 fl (80.0-94.0) L 05/07/17 07:05 MCH 24.4 pg (27.0-31.0) L 05/07/17 07:05 MCHC 32.2 g/dL (33.0-37.0) L 05/07/17 07:05 RDW 15.4 % (11.5-14.5) H 05/07/17 07:05 Plt Count 173 K/uL (130-400) 05/07/17 07:05 MPV 8.8 fl (7.2-11.7) 04/30/17 04:30 Neut % (Auto) 82.1 % (50.0-75.0) H 04/30/17 04:30 Lymph % (Auto) 11.4 % (20.0-40.0) L 04/30/17 04:30 [place] % (Auto) 5.5 % (0.0-10.0) 04/30/17 04:30 Eos % (Auto) 0.3 % (0.0-4.0) 04/30/17 04:30 Baso % (Auto) 0.7 % (0.0-2.0) 04/30/17 04:30 Neut # 15.0 K/uL (1.8-7.0) H 04/30/17 04:30 Lymph # 2.1 K/uL (1.0-4.3) 04/30/17 04:30 [place] # 1.0 K/uL (0.0-0.8) H 04/30/17 04:30 Eos # 0.1 K/uL (0.0-0.7) 04/30/17 04:30 Baso # 0.1 K/uL (0.0-0.2) 04/30/17 04:30 Neutrophils % (Manual) 89 % (42-75) H 04/29/17 21:30 Lymphocytes % (Manual) 8 % (20-50) L 04/29/17 21:30 Monocytes % (Manual) 2 % (0-10) 04/29/17 21:30 Basophils % (Manual) 1 % (0-2) 04/29/17 21:30 Platelet Estimate Normal (NORMAL) 04/29/17 21:30 Anisocytosis (manual) Slight 04/29/17 21:30 PT 11.5 SECONDS (9.6-11.2) H 04/29/17 21:30 INR 1.11 (0.92-1.08) H 04/29/17 21:30 APTT 32.2 Seconds (25.6-37.1) 05/06/17 07:48 pO2 62 mm/Hg (30-55) H 04/29/17 21:46 VBG pH 7.51 (7.32-7.43) H 04/29/17 21:46 VBG pCO2 30 mmHg (40-60) L 04/29/17 21:46 VBG HCO3 26.2 mmol/L 04/29/17 21:46 VBG Total CO2 24.8 mmol/L (22-28) 04/29/17 21:46 VBG O2 Sat (Calc) 96.2 % (40-65) H 04/29/17 21:46 VBG Base Excess 1.7 mmol/L (0.0-2.0) 04/29/17 21:46 VBG Potassium 6.0 mmol/L (3.6-5.2) H 04/29/17 21:46 Sodium 143.0 mmol/L (132-148) 04/29/17 21:46 Chloride 109.0 mmol/L (98-107) H 04/29/17 21:46 Glucose 241 mg/dL (75-110) H 04/29/17 21:46 Lactate 2.1 mmol/L (0.7-2.1) 04/29/17 21:46 FiO2 21.0 % 04/29/17 21:46 Sodium 138 mmol/l (132-148) 05/07/17 07:05 Potassium 5.3 MMOL/L (3.6-5.0) H 05/07/17 07:05 Chloride 107 mmol/L (98-107) 05/07/17 07:05 Carbon Dioxide 20 mmol/L (22-30) L 05/07/17 07:05 Anion Gap 16 (10-20) 05/07/17 07:05 BUN 61 mg/dl (9-20) H 05/07/17 07:05 Creatinine 3.9 mg/dL (0.8-1.5) H 05/07/17 07:05 Est GFR ( Amer) 05/07/17 07:05 Est GFR (Non-Af Amer) 05/07/17 07:05 POC Glucose (mg/dL) 248 mg/dL (65-110) H 05/07/17 11:04 Random Glucose 225 mg/dL (75-110) H 05/07/17 07:05 Calcium 8.4 mg/dL (8.4-10.2) 05/07/17 07:05 Phosphorus 5.6 mg/dl (2.5-4.5) H 05/05/17 06:45 Magnesium 1.2 MG/DL (1.6-2.3) L 05/07/17 07:05 Total Bilirubin 0.2 mg/dl (0.2-1.3) 05/07/17 07:05 AST 19 U/L (17-59) 05/07/17 07:05 ALT 25 U/L (21-72) 05/07/17 07:05 Alkaline Phosphatase 152 U/L (38-126) H 05/07/17 07:05 Troponin I 0.0190 ng/mL (0.00-0.120) 04/29/17 21:30 C-React Prot High Sens 2.24 mg/L (1.00-3.00) 05/01/17 15:30 Total Protein 7.0 G/DL (6.3-8.2) 05/07/17 07:05 Total Protein (PEP) 5.9 g/dL (6.1-8.1) L 05/05/17 06:45 Albumin 3.3 g/dL (3.5-5.0) L 05/07/17 07:05 Globulin 3.6 gm/dL (2.2-3.9) 05/07/17 07:05 Albumin/Globulin Ratio 0.9 (1.0-2.1) L 05/07/17 07:05 Lipase 77 U/L (23-300) 04/29/17 21:30 25-OH Vitamin D Total < 12.8 NG/ML (30.0-100.0) L 05/05/17 06:45 Procalcitonin 0.21 NG/ML (0.19-0.49) 05/03/17 18:00 PTH Intact Whole [place] 217 pg/mL (14-64) H 05/03/17 14:16 Venous Blood Potassium 6.0 mmol/L (3.6-5.2) H 04/29/17 21:46 Urine Color Yellow (YELLOW) 04/29/17 08:12 Urine Clarity Clear (Clear) 04/29/17 08:12 Urine pH 5.0 (5.0-8.0) 04/29/17 08:12 Ur Specific [place] 1.020 (1.003-1.030) 04/29/17 08:12 Urine Protein >=500 mg/dL (NEGATIVE) 04/29/17 08:12 Urine Glucose (UA) >=500 mg/dL (Normal) 04/29/17 08:12 Urine Ketones Negative mg/dL (NEGATIVE) 04/29/17 08:12 Urine Blood Moderate (NEGATIVE) 04/29/17 08:12 Urine Nitrate Negative (NEGATIVE) 04/29/17 08:12 Urine Bilirubin Negative (NEGATIVE) 04/29/17 08:12 Urine Urobilinogen 0.2-1.0 mg/dL (0.2-1.0) 04/29/17 08:12 Ur Leukocyte Esterase Neg Gomez/uL (Negative) 04/29/17 08:12 Urine RBC (Auto) 19 /hpf (0-3) H 04/29/17 08:12 Urine Microscopic WBC 2 /hpf (0-5) 04/29/17 08:12 Ur Squamous Epith Cells 1 /hpf (0-5) 04/29/17 08:12 Urine Bacteria Rare (<OCC) 04/29/17 08:12 Hyaline Casts 6-10 /hpf (0-2) H 04/29/17 08:12 Ur Random Creatinine 69.1 mg/dL 05/03/17 19:27 U Random Total Protein 789.0 mg/dL (0.0-12.0) H 05/03/17 19:27 Urine Creatinine 0.41 g/L 05/04/17 19:18 Ur Creatinine 24 Hour 1.59 g/24 h (0.63-2.50) 05/04/17 19:18 Ur Total Protein 24 Hr 45743 mg/24 h (<150) H 05/04/17 19:18 Protein/Creat Ratio 24h 7024 mg/g creat (</=84) H 05/04/17 19:18 Urine Total Protein 2887 mg/L (50-250) H 05/04/17 19:18 - Hospital Course Hospital Course: 45 year old male with h/o CKD, DM2, HTN, PAD, h/o osteomyeltitis admitted with abdominal pain, nausea, and vomiting. Patient was found to have hypertensive urgency (admitted to ICU), Gastroparesis (GI consulted), and a diabetic right foot ulceration/infection (OM ruled out, ID and podiatry consulted). Patients admission was complicated by labile BP readings/management and increased need for IV antibiotics. Patient to complete Daptomycin as per ID requests as home infusions via PICC that was inserted during admission. ED precautions given. Patient discharge home in stable condition. Discharge Exam - Head Exam Head Exam: ATRAUMATIC, NORMAL INSPECTION, NORMOCEPHALIC - Eye Exam Eye Exam: Normal appearance - Respiratory Exam Respiratory Exam: Clear to PA & Lateral, NORMAL BREATHING PATTERN, UNREMARKABLE - Cardiovascular Exam Cardiovascular Exam: REGULAR RHYTHM, RRR, +S1, +S2 - GI/Abdominal Exam GI & Abdominal Exam: Normal Bowel Sounds, Soft, Unremarkable. absent: Tenderness - Back Exam Back exam: NORMAL INSPECTION - Neurological Exam Neurological exam: Alert, Normal Gait, Oriented x3 - Psychiatric Exam Psychiatric exam: Normal Affect, Normal Mood - Skin Skin Exam: Dry, Intact, Normal Color, Warm Discharge Plan - Discharge Medications Prescriptions: DAPTOmycin [Cubicin] 680 mg IV QOTHERDAY #20 vial Ergocalciferol (Vitamin D2) [Vitamin D] 400 unit PO DAILY #30 tablet Magnesium Oxide [Mag-Ox] 400 mg PO BID #14 tab - Follow Up Plan Condition: GUARDED Disposition: HOME/ ROUTINE Instructions: Daptomycin (By injection) Additional Instructions: Complete course of antibiotics. Follow up with Dr. Rodríguez ([phone]) and Dr. Ku ([phone]) in 1 week. F/u with podiatry for wound care. F/u with PMD or Dr. Lake ([phone]) in 1-2 weeks Seen by Network Control Supervisor - instructions given
== END 2017-05-07 16:14 | disposition home or self-care (01) | DRG 74 ==
LOC: H.ER 20:30 → H.ERHOLD 23:25 → H.ICU/CCU 04-30 01:25 → H.MEDSURG1 05-02 04:34
PROVIDERS: ADMIT Internal Medicine; ATTEND Internal Medicine
PROC: 02HV33Z Insertion of Infusion Device into Superior Vena Cava, Percutaneous Approach (ICD-10-PCS; principal; 2017-05-06)
DX: E11.43 Type 2 diabetes mellitus with diabetic autonomic (poly)neuropathy (principal); E11.21 Type 2 diabetes mellitus with diabetic nephropathy; N17.9 Acute kidney failure, unspecified; N18.4 Chronic kidney disease, stage 4 (severe); K22.10 Ulcer of esophagus without bleeding; E11.622 Type 2 diabetes mellitus with other skin ulcer; N25.81 Secondary hyperparathyroidism of renal origin; L97.319 Non-pressure chronic ulcer of right ankle with unspecified severity; E11.22 Type 2 diabetes mellitus with diabetic chronic kidney disease; E11.65 Type 2 diabetes mellitus with hyperglycemia; K31.84 Gastroparesis; E78.00 Pure hypercholesterolemia, unspecified; E78.5 Hyperlipidemia, unspecified; I16.0 Hypertensive urgency; I12.9 Hypertensive chronic kidney disease with stage 1 through stage 4 chronic kidney disease, or unspecified chronic kidney disease; Z88.0 Allergy status to penicillin; Z89.431 Acquired absence of right foot; E83.42 Hypomagnesemia; E11.610 Type 2 diabetes mellitus with diabetic neuropathic arthropathy; I73.9 Peripheral vascular disease, unspecified; Z22.322 Carrier or suspected carrier of Methicillin resistant Staphylococcus aureus; E11.319 Type 2 diabetes mellitus with unspecified diabetic retinopathy without macular edema; D64.9 Anemia, unspecified

== ENCOUNTER 2017-07-14 11:58 | Inpatient (IN) | payer MEDICARE, OTHER ==
[2017-07-14 11:59] VITALS: BMI 36.5
--- NOTE | 2017-07-14 13:13 | RAD ---
PROCEDURE: Right Foot Radiographs. HISTORY: ? infectoin to stump COMPARISON: 10/16/2016. FINDINGS: BONES: Progressive ostial lipases associated with Charcot foot. JOINTS: Charcot foot. SOFT TISSUES: Profound soft tissue swelling progressive compared to the prior study. One possibly tissue deep ulcers identified. OTHER FINDINGS: None. IMPRESSION: Worsening soft tissue swelling and more deeply situated ulcers. Findings highly suggestive of superimposed acute osteomyelitis.
[2017-07-14 13:20] LABS: BASO % 0.4 % (0.0-2.0); EOS # 0.3 K/uL (0.0-0.7); EOS % 2.7 % (0.0-4.0); HEMOGLOBIN 9.2 g/dL (12.0-18.0); LYMPH # 1.6 K/uL (1.0-4.3); LYMPH % 14.7 % (20.0-40.0); MEAN CORPUSCULAR HEMOGLOBIN 25.2 pg (27.0-31.0); MEAN CORPUSCULAR HGB CONC 32.7 g/dL (33.0-37.0); MEAN PLATELET VOLUME 8.6 fl (7.2-11.7); MONO # 0.8 K/uL (0.0-0.8); MONO % 7.5 % (0.0-10.0); NEUT % 74.7 % (50.0-75.0); NRBC % 0.2 % (0.0-0.0); RBC 3.66 Mil/uL (4.40-5.90); RED CELL DISTRIBUTION WIDTH 14.3 % (11.5-14.5); WHITE BLOOD COUNT 10.7 K/uL (4.8-10.8)
--- NOTE | 2017-07-14 13:32 | ED PDOC ---
Lower Extremity Pain/Injury Time Seen by Provider: 07/14/17 12:17 Chief Complaint (Nursing): Lower Extremity Problem/Injury Chief Complaint (Provider): Ulcer and Skin break down to lower extremity History Per: Patient History/Exam Limitations: no limitations Onset/Duration Of Symptoms: Days Current Symptoms Are (Timing): Still Present Additional Complaint(s): Santiago Hussein, a 46 year old male, who has a past medical history of hypertension and diabetes and has also had a recent amputation of the right foot presents to the ED with a lower extremity problem. The patient states that he has been following up with Dr. Medina. He states that he has been noted an ulcer and skin break down on the lateral side of his right foot. The patient reports that 2 days ago the skin open up and he noticed a foul odor, redness and tenderness. Denies fevers, chills, nausea, vomiting. Past Medical History Reviewed: Historical Data, Nursing Documentation, Vital Signs Vital Signs: Last Vital Signs Temp 98.0 F 07/14/17 12:09 Pulse 79 07/14/17 12:09 Resp 18 07/14/17 12:09 BP 148/82 07/14/17 12:09 Pulse Ox 100 07/14/17 12:09 - Medical History PMH: Anemia, Diabetes (type II), HTN, Hypercholesterolemia, Hyperlipidemia, Chronic Kidney Disease Denies: Arthritis, CHF, COPD, HIV, Hypothyroidism, Rheumatoid Arthritis - Family History Family History: States: Unknown Family Hx - Immunization History Hx Tetanus Toxoid Vaccination: No Hx Influenza Vaccination: No Hx Pneumococcal Vaccination: No - Home Medications Home Medications: Ambulatory Orders Medication Instructions Recorded Pentoxifylline 400 mg PO BID #0 tablet.er 07/03/16 Atenolol 50 mg PO DAILY #0 tablet 10/15/16 Ferrous Sulfate 325 mg PO BID #0 tablet 10/15/16 Gabapentin [Neurontin] 100 mg PO TID #0 cap 10/15/16 Pantoprazole Sodium [Protonix] 40 mg PO DAILY #0 ect 10/15/16 Zolpidem [Ambien] 5 mg PO HS #30 tab 10/15/16 amLODIPine [Norvasc] 5 mg PO DAILY #0 tab 10/15/16 buPROPion [Wellbutrin] 75 mg PO BID #0 tab 10/15/16 cloNIDine [Catapres] 0.3 mg PO Q8 #0 tab 10/15/16 Folic Acid 1 mg PO DAILY 12/01/16 Glipizide [Glipizide ER] 10 mg PO BID 12/01/16 Ibuprofen 800 mg PO Q8 PRN 12/01/16 Multivit,Iron,Min 5/Folic Acid 1 tab PO DAILY 12/01/16 [Strovite Forte Caplet] Omeprazole 1 tab PO DAILY 12/01/16 DAPTOmycin [Cubicin] 680 mg IV QOTHERDAY #20 vial 05/07/17 Ergocalciferol (Vitamin D2) 400 unit PO DAILY #30 tablet 05/07/17 [Vitamin D] Magnesium Oxide [Mag-Ox] 400 mg PO BID #14 tab 05/07/17 - Allergies Allergies/Adverse Reactions: Allergies Allergy/AdvReac Type Severity Reaction Status Date / Time Penicillins Allergy RASH Verified 07/14/17 15:48 Review of Systems Constitutional: Negative for: Fever, Chills Gastrointestinal: Negative for: Nausea, Vomiting Musculoskeletal: Positive for: Other (tenderness, redness, foul odor to open wound on leg.) Physical Exam - Reviewed Nursing Documentation Reviewed: Yes Vital Signs Reviewed: Yes - Physical Exam Appears: Positive for: Non-toxic, No Acute Distress Head Exam: Positive for: ATRAUMATIC, NORMAL INSPECTION, NORMOCEPHALIC Skin: Positive for: Normal Color, Warm, Dry Eye Exam: Positive for: Normal appearance, EOMI, PERRL ENT: Positive for: Normal ENT Inspection Neck: Positive for: Normal, Painless ROM, Supple Cardiovascular/Chest: Positive for: Regular Rate, Rhythm, Chest Non Tender. Negative for: Tachycardia Respiratory: Positive for: Normal Breath Sounds. Negative for: Wheezing, Respiratory Distress Extremity: Positive for: Normal ROM, Other (open ulcer; no active draining; there is streaking erythema warmth, no tenderness.). Negative for: Pedal Edema , Deformity, Swelling Neurologic/Psych: Positive for: Alert, Oriented - Laboratory Results Result Diagrams: 07/14/17 13:05 07/14/17 14:03 - ECG O2 Sat by Pulse Oximetry: 100 (RA) Pulse Ox Interpretation: Normal - Progress ED Course And Treament: Orders Category Date Time Status ELECTROCARDIOGRAM Stat Cardiology 07/14/17 14:32 Ordered COMP METABOLIC PANEL Stat Chem 07/14/17 13:05 Completed MAGNESIUM Stat Chem 07/14/17 14:03 Completed POTASSIUM Stat Chem 07/14/17 14:03 Completed EKG-ED [EDNURTX] STAT ED Care 07/14/17 14:32 Active CBC (WITH DIFFERENTIAL) Stat PHU 07/14/17 13:05 Completed Calcium Gluconate 10 meq Med 07/14/17 15:25 Ordered Sodium Chloride 0.9% 100 ml IVPB ONCE Magnesium Sulfate 1 gm Med 07/14/17 16:00 Active Sodium Chloride 0.9% 100 ml IVPB ONCE Sodium Chloride 0.9% 1,000 ml Med 07/14/17 13:44 Discontinued IV 1,000 mls/hr BLOOD CULTURE Stat Micro 07/14/17 13:00 Received WOUND CULTURE AND GRAM STAIN Stat Micro 07/14/17 15:18 Uncollected FOOT RIGHT 3 VIEWS ROUTINE [RAD] Stat Radiology 07/14/17 12:22 Completed DUPLEX LOWER EXTRM VEIN RIGHT [US] Stat US 07/14/17 15:21 Ordered 07/14/17 07/14/17 07/14/17 14:03 13:05 13:05 WBC 10.7 RBC 3.66 L Hgb 9.2 L Hct 28.2 L MCV 77.0 L MCH 25.2 L MCHC 32.7 L RDW 14.3 Plt Count 169 MPV 8.6 Neut % (Auto) 74.7 Lymph % (Auto) 14.7 L [place] % (Auto) 7.5 Eos % (Auto) 2.7 Baso % (Auto) 0.4 Neut # 8.0 H Lymph # 1.6 [place] # 0.8 Eos # 0.3 Baso # 0.0 Sodium 134 Potassium 4.9 5.7 H Chloride 100 Carbon Dioxide 21 L Anion Gap 19 BUN 48 H Creatinine 4.1 H Est GFR ( Amer) 19 Est GFR (Non-Af Amer) 16 Random Glucose 256 H Calcium 5.2 L* D Magnesium 0.7 L* D Total Bilirubin 0.9 AST 37 ALT 19 L D Alkaline Phosphatase 117 Total Protein 7.2 Albumin 3.5 Globulin 3.8 Albumin/Globulin Ratio 0.9 L Medical Decision Making Medical Decision Makin Initial Impression: 46 year old mal presenting with lower extremity problem Initial Plan: * CBC * NS 1000mls IV 1000mls/hr * Blood Culture * RAD Right Foot * Reevaluation 1414 Xray and labs performed: Calcium is low Dr. Page made aware suggests magnesium and repeat potassium level. There is no elevated white count at this time. Podiatry was consulted Patient medication reviewed noted to me taking protonix, amlodipine and lasix. Possible cause for low potassasium 1430 Other labs ordered: * EKG * CMP * Magnesium * Potassium * Reevaluation 1535 Patient is now being transferred to a panel monitor. EKG performed: * Prolonged QT waves * Normal Sinus Rhythm * No ST elevation Potassium is normal but magnesium is very low. Patient will need magnesium and calcium replacement. Dr. Page made aware that patient will be admitted under Dr. Nayak on telemetry floor. Podiatry is here evaluating patient. and will continue f/u as an inpt. 1540 Wound culture sent for ulcer of foot. Will get Duplex to r/o DVT Scribe Attestation Documented by Liseth Gleason acting as a scribe for Jelena Leyva PA-C. Scribe Attestation All medical record entries made by the Scribe were at my direction and personally dictated by me. I have reviewed the chart and agree that the record accurately reflects my personal performance of the history, physical exam, medical decision making, and the department course for this patient. I have also personally directed, reviewed, and agree with the discharge instructions and disposition. Disposition - Clinical Impression Clinical Impression: Hypocalcemia, Hypomagnesemia - Patient ED Disposition Is Patient to be Admitted: Yes - Disposition Disposition Time: 15:53 Condition: FAIR Forms: [facility] (Georgian) - Pt Status Changed To: Hospital Disposition Of: Inpatient - Admit Certification Admit to Inpatient:: After my assessment, the patient will require hospitalization for at least two midnights. This is because of the severity of symptoms shown, intensity of services needed, and/or the medical risk in this patient being treated as an outpatient. - POA Present On Arrival: Pressure Ulcer
[2017-07-14 13:35] LABS: ALB/GLOB RATIO 0.9 (1.0-2.1); ALBUMIN 3.5 g/dL (3.5-5.0)
[2017-07-14 13:42] LABS: CALCIUM 5.2 mg/dL (8.4-10.2)
[2017-07-14] MEDS ORDERED: Sodium Chloride 0.9% 1,000 ML IV STA (13:44)
--- NOTE | 2017-07-14 15:11 | CP.PCM.CON ---
History of Present Illness - History of Present Illness History of Present Illness: 45 year old male with PMH of CKD, OM Right foot, DM II with Neuropathy, bilateral Charcot was seen in ED holding for right foot ulceration. He has had this ulceration for a while now. He was seen in holding without dressing and [place] at bedside. He states Dr. Medina manages his ulceration and ambulates with a [place] boot For the past 2-3 days he has noticed increase clear drainage, right lower extremity swelling, and increase odor. He denies any trauma. He denies n/v/sob/cp/chills or f. PMH: CKD, OM Right foot, DM II with Neuropathy, Charcot PSH: Right chopart amputation SH: former smoker, denies drinking or elicited drug use Allergies: Pencillin FH: unknown Past Patient History - Past Medical History & Family History Past Medical History?: Yes - Past Social History Smoking Status: Former Smoker - CARDIAC Hx Congestive Heart Failure: No Hx Hypercholesterolemia: Yes Hx Hypertension: Yes - PULMONARY Hx Chronic Obstructive Pulmonary Disease (COPD): No - NEUROLOGICAL Hx Neurological Disorder: No - HEENT Hx HEENT Problems: Yes - RENAL Hx Chronic Kidney Disease: Yes - ENDOCRINE/METABOLIC Hx Hypothyroidism: No - HEMATOLOGICAL/ONCOLOGICAL Hx Anemia: Yes Hx Human Immunodeficiency Virus (HIV): No - INTEGUMENTARY Hx Dermatological Problems: Yes - MUSCULOSKELETAL/RHEUMATOLOGICAL Hx Arthritis: No Hx Rheumatoid Arthritis: No - GASTROINTESTINAL Hx Gastrointestinal Disorders: No Hx Nausea: Yes Hx Vomiting: Yes - GENITOURINARY/GYNECOLOGICAL Hx Genitourinary Disorders: No - PSYCHIATRIC Hx Psychophysiologic Disorder: No Hx Substance Use: No - SURGICAL HISTORY Hx Surgeries: Yes Hx Amputation: Yes (Partial right BTK) - ANESTHESIA Hx Anesthesia: Yes Hx Anesthesia Reactions: No Hx Malignant Hyperthermia: No Meds Allergies/Adverse Reactions: Allergies Allergy/AdvReac Type Severity Reaction Status Date / Time Penicillins Allergy RASH Verified 07/14/17 15:48 Physical Exam - Constitutional Appears: Well, Non-toxic, No Acute Distress - Back Exam Additional comments: VASC: DP pulses are nonpalpable, PT pulses are palpable, edema noted to the right lower extremity, TG: is warm at the ankle and distal stump DERM: ulceration present of the lateral aspect of the right foot, wound appears to have granular base with fibrotic border, no purulence, moderate serous yellow drainage, mild malodor noted, erythema surrounding periwound, no ascending cellulitis, no tunneling or undermining present NEURO: Grossly diminished ORTHO: [place]oparts amputation, tenderness with palpation of the ulceration - Neurological Exam Neurological exam: Alert, Oriented x3 - Psychiatric Exam Psychiatric exam: Normal Affect, Normal Mood Results - Vital Signs Recent Vital Signs: Last Vital Signs Temp 98.0 F 07/14/17 12:09 Pulse 79 07/14/17 12:09 Resp 18 07/14/17 12:09 BP 148/82 07/14/17 12:09 Pulse Ox 100 07/14/17 14:51 - Labs Result Diagrams: 07/14/17 13:05 07/14/17 14:03 Labs: Laboratory Results - last 24 hr 07/14/17 07/14/17 13:05 13:05 WBC 10.7 RBC 3.66 L Hgb 9.2 L Hct 28.2 L MCV 77.0 L MCH 25.2 L MCHC 32.7 L RDW 14.3 Plt Count 169 MPV 8.6 Neut % (Auto) 74.7 Lymph % (Auto) 14.7 L [place] % (Auto) 7.5 Eos % (Auto) 2.7 Baso % (Auto) 0.4 Neut # 8.0 H Lymph # 1.6 [place] # 0.8 Eos # 0.3 Baso # 0.0 Sodium 134 Potassium 5.7 H Chloride 100 Carbon Dioxide 21 L Anion Gap 19 BUN 48 H Creatinine 4.1 H Est GFR ( Amer) 19 Est GFR (Non-Af Amer) 16 Random Glucose 256 H Calcium 5.2 L* D Total Bilirubin 0.9 AST 37 ALT 19 L D Alkaline Phosphatase 117 Total Protein 7.2 Albumin 3.5 Globulin 3.8 Albumin/Globulin Ratio 0.9 L Assessment & Plan - Assessment and Plan (Free Text) Plan: Patient was seen in the ED Labs, charts, vitals reviewed: afebrile, WBC=10.7 Discussed plan in detail with attending Dr. Meidna Was told will be admitted by ED (low Ca+, low Mag+, and EKG changes X-rays final read- worsening soft tissue swelling, superimposed acute osteomyelitis ID consulted- recommendations appreciated Ulceration cleansed with betadine, dressed with Mupricion, DSD, ABD and yary WIll continue to follow while in house Thank you for the consult
[2017-07-14 15:13] LABS: MAGNESIUM 0.7 MG/DL (1.6-2.3)
[2017-07-14] MEDS ORDERED: CALCIUM GLUCONATE IVPB ONE (15:20)
[2017-07-14] MEDS ORDERED: SODIUM CHLORIDE 0.9% IVPB ONE (15:20)
[2017-07-14] MEDS ORDERED: Magnesium Sulfate 2 gm/50 ml 0 GM/0 ML BAG ONE (15:36)
[2017-07-14] MEDS ORDERED: Calcium Gluconate 10 MEQ in Sodium Chloride 0.9% 100 ML IVPB ONE (16:00)
[2017-07-14] MEDS: Sodium Chloride 0.9% 1,000 ML IV SCH (16:03)
[2017-07-14] MEDS ORDERED: Magnesium Sulfate 2 gm/50 ml 2 GM/50 ML BAG IVPB STA (16:10)
[2017-07-14] MEDS ORDERED: Magnesium Sulfate 2 gm/50 ml 2 GM/50 ML BAG ONE (16:52)
[2017-07-14] MEDS ORDERED: Mupirocin 2% Cream TOP SCH (17:00)
--- NOTE | 2017-07-14 21:48 | CARD ---
APPROVED REPORT EKG Measurement Heart [id number] ID [id number] <Conclusion> Sinus rhythm with premature atrial complexes Prolonged QT Abnormal ECG
[2017-07-14] MEDS: Insulin Regular 100 units/ml SC SCH (22:46)
[2017-07-14] MEDS ORDERED: Povidone Iodine Topical 10% Sol TOP ONE (23:53)
[2017-07-15] MEDS: Sodium Chloride 0.9% 1,000 ML IV SCH ×2 (00:45→12:22)
[2017-07-15] MEDS: Insulin Regular 100 units/ml SC SCH ×4 (06:36→21:42)
[2017-07-15 06:40] LABS: HEMOGLOBIN 9.2 g/dL (12.0-18.0); MEAN CELL VOLUME 77.3 fl (80.0-94.0); MEAN CORPUSCULAR HEMOGLOBIN 24.7 pg (27.0-31.0); MEAN CORPUSCULAR HGB CONC 31.9 g/dL (33.0-37.0); RBC 3.75 Mil/uL (4.40-5.90); RED CELL DISTRIBUTION WIDTH 14.2 % (11.5-14.5)
[2017-07-15 06:44] LABS: ALB/GLOB RATIO 0.9 (1.0-2.1); ALBUMIN 3.1 g/dL (3.5-5.0)
--- NOTE | 2017-07-15 06:45 | US ---
EXAM: Venous Doppler unilateral right INDICATIONS: Pain. Evaluate for deep venous thrombosis. TECHNIQUE: Duplex venous evaluation of the right lower extremity was performed utilizing graded compression, color Doppler and spectral Doppler interrogation. COMPARISON: Right lower extremity venous duplex 10/09/2016 FINDINGS: There is normal morphology, compressibility, Doppler flow, and augmentation of the right common femoral, femoral, and popliteal veins. Visualized portions of the posterior tibial vein are unremarkable. Prominent right inguinal lymph nodes noted measuring 2.3 x 0.9 cm and 2.7 x 0.9 cm. Subcutaneous soft tissue swelling noted of the right calf. IMPRESSION: No evidence of deep venous thrombosis in the right femoropopliteal system. Subcutaneous soft tissue swelling of the right calf. Prominent right inguinal lymph nodes as above, possibly reactive. Preliminary impression was provided by [facility]. Findings are concordant.
[2017-07-15 07:00] LABS: T4 4.61 ug/dl (5.5-11.0)
[2017-07-15 07:14] LABS: T3 0.789 nmol/L (1.49-2.60)
--- NOTE | 2017-07-15 07:31 | CP.PCM.PN ---
Subjective - Date & Time of Evaluation Date of Evaluation: 07/15/17 Time of Evaluation: 07:28 - Subjective Subjective: 45 year old male with PMH of CKD, OM Right foot, DM II with Neuropathy, bilateral Charcot seen at bedside for right planar foot ulceration secondary to DM and Charcot deformity. States has slept well. Denies acute events overnight. Denies n/v/sob/cp/chills or f. Objective - Vital Signs/Intake and Output Vital Signs (last 24 hours): Temp Pulse Resp BP Pulse Ox 98.2 F 65 20 111/68 99 07/15/17 05:18 07/15/17 05:18 07/15/17 05:18 07/15/17 05:18 07/15/17 05:18 - Medications Medications: Current Medications Amlodipine Besylate (Norvasc) 5 mg PO DAILY [facility] Atenolol (Tenormin) 50 mg PO DAILY [facility] Bupropion HCl (Wellbutrin) 75 mg PO BID [facility] Clonidine HCl (Catapres) 0.3 mg PO Q8 [facility] Last Admin: 07/15/17 00:35 Dose: 0.3 mg Ferrous Sulfate (Feosol) 325 mg PO BID [facility] Folic Acid (Folic Acid) 1 mg PO DAILY [facility] Gabapentin (Neurontin) 100 mg PO TID [facility] Glipizide (Glucotrol Xl) 10 mg PO BID [facility] Heparin Sodium (Porcine) (Heparin) 5,000 units SC Q8 [facility] PRN Reason: Protocol Last Admin: 07/15/17 00:36 Dose: 5,000 units Sodium Chloride (Sodium Chloride 0.9%) 1,000 mls @ 125 mls/hr IV .Q8H [facility] Stop: 07/15/17 15:40 Last Admin: 07/15/17 00:45 Dose: 125 mls/hr Daptomycin 680 mg/ Sodium (Chloride) 100 mls @ 100 mls/hr IV QOTHERDAY [facility] Stop: 07/21/17 09:01 Ibuprofen (Motrin Tab) 800 mg PO Q8 PRN PRN Reason: Pain, Mild (1-3) Insulin Human Regular (Humulin R) 0 units SC ACHS [facility] PRN Reason: Protocol Last Admin: 07/15/17 06:36 Dose: 1 u Magnesium Oxide (Mag-Ox) 400 mg PO BID [facility] Multivitamins/Minerals (Therapeutic-M Tab) 1 tab PO DAILY [facility] Mupirocin (Bactroban Ointment) 1 applic TOP BID [facility] Last Admin: 07/14/17 17:22 Dose: 1 % Pantoprazole Sodium (Protonix Ec Tab) 40 mg PO DAILY [facility] Pentoxifylline (Pentoxil) 400 mg PO BID [facility] Last Admin: 07/14/17 22:49 Dose: 400 mg Vitamin D (Vitamin D 400 Intl Units Tab) 400 intlu PO DAILY [facility] Zolpidem Tartrate (Ambien) 5 mg PO HS [facility] Last Admin: 07/14/17 22:52 Dose: Not Given - Labs Labs: 07/15/17 05:55 07/15/17 05:55 - Constitutional Appears: Well, Non-toxic, No Acute Distress - Extremities Exam Additional comments: VASC: DP pulses are nonpalpable, PT pulses are palpable, edema noted to the right lower extremity, TG: is warm at the ankle and distal stump DERM: ulceration present of the lateral aspect of the right foot, measuring approximately 3x 1 x .4 wound appears to have granular base with fibrotic border , no purulence, moderate serous yellow drainage, mild malodor noted, erythema surrounding periwound, no ascending cellulitis, no tunneling or undermining present NEURO: Grossly diminished sensation bilaterally ORTHO: Choparts amputation, no pain elicited with palpation of the ulceration - Neurological Exam Neurological Exam: Alert, Awake, Oriented x3 - Psychiatric Exam Psychiatric exam: Normal Affect, Normal Mood Assessment and Plan - Assessment and Plan (Free Text) Assessment: 45 year old male with PMH of CKD, OM Right foot, DM II with Neuropathy, bilateral Charcot with right plantar ulceration secondary to DM and Charcot deformity. Plan: Patient was seen in the ED Labs, charts, vitals reviewed: afebrile, WBC=11.0 Discussed plan in detail with attending Dr. Medina Was told will be admitted by ED (low Ca+, low Mag+, and EKG changes) X-rays final read- worsening soft tissue swelling, superimposed acute osteomyelitis Ulceration cleansed with betadine, DSD, ABD and yary. Mupirocin not at bedside Ordered Mupirocin. Will change dressing with Mupirocin Will continue daily dressing changes. F/U wound culture results ID consulted- recommendations appreciated Will continue to follow while in house
[2017-07-15] MEDS: Magnesium Oxide 400 mg Tab UD PO SCH ×2 (09:12→17:05)
[2017-07-15] MEDS: Pantoprazole 40 mg EC Tab PO SCH (09:13)
[2017-07-15] MEDS: Multivitamin With Minerals Tab PO SCH (09:13)
[2017-07-15] MEDS: Cholecalciferol 400 Intl Units Tab PO SCH (09:14)
[2017-07-15] MEDS: GlipiZIDE 10 mg SR Tab PO SCH ×2 (09:15→17:21)
--- NOTE | 2017-07-15 10:57 | CP.PCM.CON ---
History of Present Illness - History of Present Illness History of Present Illness: 45 year old male with PMH of CKD, OM Right foot, DM II with Neuropathy, bilateral Charcot admitted for right foot ulceration. He has had this ulceration for many months Recently developed increased drainage and cellulitis right leg PMH: CKD, OM Right foot, DM II with Neuropathy, Charcot PSH: Right chopart amputation SH: former smoker, denies drinking or elicited drug use Allergies: Pencillin FH: unknown Review of Systems - Constitutional Constitutional: As Per HPI - EENT Eyes: absent: As Per HPI, Blind Spots, Blurred Vision, Change in Vision, Decreased Night Vision, Diplopia, Discharge, Dry Eye, Exophthalmos, Floaters, Irritation, Itchy Eyes, Loss of Peripheral Vision, Pain, Photophobia, Requires Corrective Lenses, Sees Flashes, Spots in Vision, Tunnel Vision, Other Visual Disturbances, Loss of Vision, Other Ears: absent: As Per HPI, Decreased Hearing, Ear Discharge, Ear Pain, Tinnitus, Abnormal Hearing, Disequilibrium, Dizziness, Other Nose/Mouth/Throat: absent: As Per HPI, Epistaxis, Nasal Congestion, Nasal Discharge, Nasal Obstruction, Nasal Trauma, Nose Pain, Post Nasal Drip, Sinus Pain, Sinus Pressure, Bleeding Gums, Change in Voice, Dental Pain, Dry Mouth, Dysphagia, Halitosis, Hoarsness, Lip Swelling, Mouth Lesions, Mouth Pain, Odynophagia, Sore Throat, Throat Swelling, Tongue Swelling, Facial Pain, Neck Pain, Neck Mass, Other - Cardiovascular Cardiovascular: absent: As Per HPI, Acrocyanosis, Chest Pain, Chest Pain at Rest , Chest Pain with Activity, Claudication, Diaphoresis, Dyspnea, Dyspnea on Exertion, Edema, Irregular Heart Rhythm, Pain Radiating to Arm/Neck/Jaw, Leg Edema, Leg Ulcers, Lightheadedness, Orthopnea, Palpitations, Paroxysmal Nocturnal Dyspnea, Pedal Edema, Radiating Pain, Rapid Heart Rate, Slow Heart Rate, Syncope, Other - Respiratory Respiratory: absent: As Per HPI, Cough, Dyspnea, Hemoptysis, Dyspnea on Exertion , Wheezing, Snoring, Stridor, Pain on Inspiration, Chest Congestion, Excessive Mucous Production, Change in Mucous Color, Pain with Coughing, Other - Gastrointestinal Gastrointestinal: absent: As Per HPI, Abdominal Pain, Belching, Bloating, Change in Bowel Habits, Change in Stool Character, Coffee Ground Emesis, Constipation, Cramping, Diarrhea, Dyspepsia, Dysphagia, Early Satiety, Excessive Flatus, Fecal Incontinence, Heartburn, Hematemesis, Hematochezia, Loose Stools, Melena, Nausea, Odynophagia, Temesmus, Vomiting, Other - Genitourinary Genitourinary: absent: As Per HPI, Change in Urinary Stream, Difficulty Urinating, Dysuria, Flank Pain, Hematuria, Pyuria, Nocturia, Urinary Incontinence, Urinary Frequency, Urinary Hesitance, Urinary Urgency, Voiding Freq/Small Amts, Freq UTI, Hx Renal/Bladder Calculi, Hx /Renal Surgery, Bladder Distension, Other - Musculoskeletal Musculoskeletal: absent: As Per HPI, Abnormal Gait, Arthralgias, Atrophy, Back Pain, Deformity, Joint Swelling, Limited Range of Motion, Loss of Height, Muscle Cramps, Muscle Weakness, Myalgias, Neck Pain, Numbness, Radiating Pain into Limb, Stiffness, Tingling, Other - Integumentary Integumentary: As Per HPI, Skin Pain, Wounds - Neurological Neurological: As Per HPI - Psychiatric Psychiatric: absent: As Per HPI, Abnormal Sleep Pattern, Anhedonia, Anxiety, Auditory Hallucinations, Behavioral Changes, Change in Appetite, Change in Libido, Confusion, Depression, Difficulty Concentrating, Hallucinations, Homicidal Ideation, Hopelessness, Irritability, Memory Loss, Mood Swings, Panic Attacks, Paranoia, Suicidal Ideation, Visual Hallucinations, Tactile Hallucinations, Other - Endocrine Endocrine: absent: As Per HPI, Change in Body Appearance, Change in Libido, Cold Intolorance, Deepening of Voice, Excessive Sweating, Fatigue, Flushing, Heat Intolorance, Increase in Ring/Shoe/Hat Size, Palpitations, Polydipsia, Polyphagia, Polyuria, Other - Hematologic/Lymphatic Hematologic: absent: As Per HPI, Easy Bleeding, Easy Bruising, Lymphadenopathy, Other Past Patient History - Past Medical History & Family History Past Medical History?: Yes - Past Social History Smoking Status: Former Smoker - CARDIAC Hx Congestive Heart Failure: No Hx Hypercholesterolemia: Yes Hx Hypertension: Yes - PULMONARY Hx Chronic Obstructive Pulmonary Disease (COPD): No - NEUROLOGICAL Hx Neurological Disorder: No - HEENT Hx HEENT Problems: Yes - RENAL Hx Chronic Kidney Disease: Yes - ENDOCRINE/METABOLIC Hx Hypothyroidism: No - HEMATOLOGICAL/ONCOLOGICAL Hx Anemia: Yes Hx Human Immunodeficiency Virus (HIV): No - INTEGUMENTARY Hx Dermatological Problems: Yes - MUSCULOSKELETAL/RHEUMATOLOGICAL Hx Arthritis: No Hx Rheumatoid Arthritis: No - GASTROINTESTINAL Hx Gastrointestinal Disorders: No Hx Nausea: Yes Hx Vomiting: Yes - GENITOURINARY/GYNECOLOGICAL Hx Genitourinary Disorders: No - PSYCHIATRIC Hx Psychophysiologic Disorder: No Hx Substance Use: No - SURGICAL HISTORY Hx Surgeries: Yes Hx Amputation: Yes (Partial right BTK) - ANESTHESIA Hx Anesthesia: Yes Hx Anesthesia Reactions: No Hx Malignant Hyperthermia: No Meds Allergies/Adverse Reactions: Allergies Allergy/AdvReac Type Severity Reaction Status Date / Time Penicillins Allergy RASH Verified 07/14/17 15:48 - Medications Medications: Current Medications Amlodipine Besylate (Norvasc) 5 mg PO DAILY [facility] Last Admin: 07/15/17 09:14 Dose: 5 mg Atenolol (Tenormin) 50 mg PO DAILY [facility] Last Admin: 07/15/17 09:14 Dose: 50 mg Bupropion HCl (Wellbutrin) 75 mg PO BID [facility] Last Admin: 07/15/17 09:13 Dose: 75 mg Clonidine HCl (Catapres) 0.3 mg PO Q8 [facility] Last Admin: 07/15/17 09:15 Dose: 0.3 mg Ferrous Sulfate (Feosol) 325 mg PO BID [facility] Last Admin: 07/15/17 09:13 Dose: 325 mg Folic Acid (Folic Acid) 1 mg PO DAILY [facility] Last Admin: 07/15/17 09:14 Dose: 1 mg Gabapentin (Neurontin) 100 mg PO TID [facility] Last Admin: 07/15/17 09:13 Dose: 100 mg Glipizide (Glucotrol Xl) 10 mg PO BID [facility] Last Admin: 07/15/17 09:15 Dose: 10 mg Heparin Sodium (Porcine) (Heparin) 5,000 units SC Q8 [facility] PRN Reason: Protocol Last Admin: 07/15/17 09:15 Dose: 5,000 units Sodium Chloride (Sodium Chloride 0.9%) 1,000 mls @ 125 mls/hr IV .Q8H [facility] Stop: 07/15/17 15:40 Last Admin: 07/15/17 00:45 Dose: 125 mls/hr Daptomycin 680 mg/ Sodium (Chloride) 100 mls @ 100 mls/hr IV QOTHERDAY [facility] Stop: 07/21/17 09:01 Insulin Human Regular (Humulin R) 0 units SC ACHS [facility] PRN Reason: Protocol Last Admin: 07/15/17 06:36 Dose: 1 u Magnesium Oxide (Mag-Ox) 400 mg PO BID [facility] Last Admin: 07/15/17 09:12 Dose: 400 mg Multivitamins/Minerals (Therapeutic-M Tab) 1 tab PO DAILY [facility] Last Admin: 07/15/17 09:13 Dose: 1 tab Mupirocin (Bactroban Ointment) 1 applic TOP BID [facility] Last Admin: 07/14/17 17:22 Dose: 1 % Pantoprazole Sodium (Protonix Ec Tab) 40 mg PO DAILY [facility] Last Admin: 07/15/17 09:13 Dose: 40 mg Pentoxifylline (Pentoxil) 400 mg PO BID [facility] Last Admin: 07/15/17 09:13 Dose: 400 mg Vitamin D (Vitamin D 400 Intl Units Tab) 400 intlu PO DAILY [facility] Last Admin: 07/15/17 09:14 Dose: 400 intlu Zolpidem Tartrate (Ambien) 5 mg PO HS [facility] Last Admin: 07/14/17 22:52 Dose: Not Given Physical Exam - Constitutional Appears: Non-toxic, Chronically Ill - Head Exam Head Exam: NORMOCEPHALIC - Eye Exam Eye Exam: PERRL. absent: Scleral icterus Pupil Exam: PERRL - ENT Exam ENT Exam: Mucous Membranes Dry, Normal External Ear Exam, Normal Oropharynx - Neck Exam Neck exam: Negative for: Lymphadenopathy - Respiratory Exam Respiratory Exam: Decreased Breath Sounds, Clear to Auscultation Bilateral - Cardiovascular Exam Cardiovascular Exam: REGULAR RHYTHM, +S1, +S2 - GI/Abdominal Exam GI & Abdominal Exam: Diminished Bowel Sounds, Distended. absent: Rigid - Exam Exam: NORMAL INSPECTION - Extremities Exam Extremities exam: Positive for: pedal edema, pedal pulses present. Negative for : calf tenderness, tenderness Additional comments: VASC: DP pulses are nonpalpable, PT pulses are palpable, edema noted to the right lower extremity, TG: is warm at the ankle and distal stump DERM: ulceration present of the lateral aspect of the right foot, measuring approximately 3x 1 x .4 wound appears to have granular base with fibrotic border , no purulence, moderate serous yellow drainage, mild malodor noted, erythema surrounding periwound, no ascending cellulitis, no tunneling or undermining present NEURO: Grossly diminished sensation bilaterally ORTHO: Choparts amputation, no pain elicited with palpation of the ulceration - Back Exam Back exam: absent: CVA tenderness (L), CVA tenderness (R) - Neurological Exam Neurological exam: Alert, CN II-XII Intact, Oriented x3, Reflexes Normal - Psychiatric Exam Psychiatric exam: Normal Mood - Skin Skin Exam: Dry Results - Vital Signs Recent Vital Signs: Last Vital Signs Temp 97.9 F 07/15/17 08:00 Pulse 68 07/15/17 09:15 Resp 18 07/15/17 08:00 BP 146/84 07/15/17 09:15 Pulse Ox 97 07/15/17 08:00 - Labs Result Diagrams: 07/15/17 05:55 07/15/17 05:55 Labs: Laboratory Results - last 24 hr 07/14/17 07/14/17 07/15/17 17:55 21:08 05:48 WBC RBC Hgb Hct MCV MCH MCHC RDW Plt Count Sodium Potassium Chloride Carbon Dioxide Anion Gap BUN Creatinine Est GFR ( Amer) Est GFR (Non-Af Amer) POC Glucose (mg/dL) 107 134 H 173 H Random Glucose Calcium Total Bilirubin AST ALT Alkaline Phosphatase Total Protein Albumin Globulin Albumin/Globulin Ratio Triglycerides Cholesterol LDL Cholesterol Direct HDL Cholesterol Vitamin B12 Thyroxine (T4) Total T3 TSH 3rd Generation 07/15/17 07/15/17 07/15/17 05:55 05:55 06:32 WBC 11.0 H RBC 3.75 L Hgb 9.2 L Hct 29.0 L MCV 77.3 L MCH 24.7 L MCHC 31.9 L RDW 14.2 Plt Count 189 Sodium 139 Potassium 5.0 Chloride 104 Carbon Dioxide 24 Anion Gap 16 BUN 49 H Creatinine 4.2 H Est GFR ( Amer) 19 Est GFR (Non-Af Amer) 15 POC Glucose (mg/dL) Random Glucose 149 H Calcium 6.0 L* Total Bilirubin 0.5 AST 19 ALT 24 Alkaline Phosphatase 126 Total Protein 6.7 Albumin 3.1 L Globulin 3.6 Albumin/Globulin Ratio 0.9 L Triglycerides 273 H D Cholesterol 226 H LDL Cholesterol Direct 132 H HDL Cholesterol 18 L Vitamin B12 243 Thyroxine (T4) 4.61 L Total T3 0.789 L TSH 3rd Generation 2.88 Assessment & Plan (1) Cellulitis of right foot Status: Acute Priority: High (2) Diabetic foot infection Status: Acute (3) Diabetic foot ulcer Status: Acute (4) ESRD (end stage renal disease) on dialysis Status: Acute - Assessment and Plan (Free Text) Assessment: cont wound care and iv rx may need additional imaging
[2017-07-15 12:30] LABS: MAGNESIUM 1.3 MG/DL (1.6-2.3)
[2017-07-15 15:09] LABS: CREATININE, RANDOM URINE 67.7 mg/dL
[2017-07-15 16:23] LABS: URINE CLARITY CLEAR (Clear); URINE COLOR LT.YELLOW (YELLOW)
[2017-07-15 16:24] LABS: URINE BILIRUBIN NEGATIVE (NEGATIVE); URINE BLOOD MODERATE (NEGATIVE)
[2017-07-15 16:25] LABS: SQUAMOUS EPITHIAL 1 /hpf (0-5); URINE LEUKOCYTE ESTERASE NEG Leu/uL (Negative); URINE NITRATE NEGATIVE (NEGATIVE); URINE PROTEIN >=300 mg/dL mg/dL (NEGATIVE)
[2017-07-15 16:26] LABS: URINE BACTERIA RARE (<OCC)
[2017-07-15] MEDS ORDERED: Calcium Acetate 667 MG Capsule PO SCH (18:30)
--- NOTE | 2017-07-15 19:41 | HP ---
CHIEF COMPLAINT: Foot ulcer and pain. 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 The patient was brought to the emergency room and was admitted for further management. REVIEW OF SYSTEMS: Positive for skin ulcer, pain, discharge, redness and tenderness. Review of system otherwise is negative for headache, dizziness, syncope, loss of consciousness, chest pain, shortness of breath, nausea, vomiting, diarrhea, constipation, any neurological symptoms. Review of systems for all other organ system is unremarkable. PAST MEDICAL HISTORY: Significant for peripheral vascular disease leading to amputation, hypertension, elevated cholesterol, type 2 diabetes, anemia, renal insufficiency. PAST SURGICAL HISTORY: Remarkable for recent amputation. PERSONAL HISTORY: The patient is currently nonsmoker and nondrinker. No substance abuse. MEDICATIONS: The patient is on multiple medications including atenolol, Trental, ferrous sulfate, gabapentin, Protonix, Ambien, Norvasc, Wellbutrin, clonidine, folic acid, glipizide, ibuprofen, multivitamins, Cubicin, vitamin D2, and magnesium. ALLERGIES: THE PATIENT IS ALSO ALLERGIC TO PENICILLIN. FAMILY HISTORY: Noncontributory. PHYSICAL EXAMINATION: GENERAL: The patient is well-built, morbidly obese 46-year-old male in no acute distress. VITAL SIGNS: Temperature 98.2, pulse 64, respirations 20, and blood pressure 111/60. HEENT: Pupils are reacting to light. Normocephalic and atraumatic scalp. NECK: No JVD. No thyromegaly. No lymphadenopathy. No nystagmus. HEART: S1 and S2 normal and regular. No significant murmur, gallop, or rub. LUNGS: Shows good bilateral air exchange. No rales or rhonchi. ABDOMEN: Soft and nontender. No organomegaly noted. No fluid. Bowel sounds are plus. EXTREMITIES: No edema. No calf swelling. No tenderness. No acute ischemia. The patient is status post right transmetatarsal amputation. The patient has a deep open ulcer on the foot with mild tenderness, little redness, no active discharge noted but dressing does have some purulent staining. CENTRAL NERVOUS SYSTEM: Essentially unchanged. There is no sign of any acute gross focal motor or sensory neurological deficit. DIAGNOSTIC DATA: Available diagnostic data reviewed. WBC 11, hemoglobin 9.2, hematocrit 29, platelets 189. Sodium 139, potassium 5.0, chloride 104, bicarb 24, BUN 49, creatinine 4.2, calcium level is 6, magnesium level 0.7 with albumin level of 3.1. Foot x-ray consistent with osteomyelitis. EKG does not reveal acute ST-T changes. Doppler studies show no evidence of DVT, but is positive for subcutaneous swelling in calf. ADMITTING IMPRESSION: Severe electrolyte imbalance, hyperglycemia, hypermagnesemia, acute on chronic renal insufficiency, sepsis syndrome, infected foot ulcer, osteomyelitis, type 2 diabetes with hyperglycemia, hypertension, elevated cholesterol, peripheral vascular disease, morbid obesity. PLAN: As ordered. Case and plan discussed with the patient. Joel Lake MD
[2017-07-15 21:31] LABS: COMPLEMENT C4 33.5 mg/dL (14.0-44.0)
--- NOTE | 2017-07-16 06:45 | CP.PCM.PN ---
Subjective - Date & Time of Evaluation Date of Evaluation: 07/16/17 Time of Evaluation: 06:43 - Subjective Subjective: 45 year old male with PMH of CKD, OM Right foot, DM II with Neuropathy, bilateral Charcot seen at bedside for right planar foot ulceration secondary to DM and Charcot deformity. Patient seen laying comfortably in bedside, AA0x3, and in NAD. Denies acute events overnight. Denies n/v/sob/cp/chills or f. Complains of no pain at this time. NO other pedal complaints. Objective - Vital Signs/Intake and Output Vital Signs (last 24 hours): Temp Pulse Resp BP Pulse Ox 97.8 F 61 18 190/99 H 100 07/16/17 05:29 07/16/17 05:29 07/16/17 05:29 07/16/17 05:29 07/16/17 05:29 - Medications Medications: Current Medications Amlodipine Besylate (Norvasc) 5 mg PO DAILY [facility] Last Admin: 07/15/17 09:14 Dose: 5 mg Atenolol (Tenormin) 50 mg PO DAILY [facility] Last Admin: 07/15/17 09:14 Dose: 50 mg Bupropion HCl (Wellbutrin) 75 mg PO BID [facility] Last Admin: 07/15/17 17:06 Dose: 75 mg Calcitriol (Rocaltrol) 0.25 mcg PO DAILY [facility] Calcium Acetate (Phoslo) 667 mg PO WM@0900,1300,1700 [facility] Clonidine HCl (Catapres) 0.3 mg PO Q8 [facility] Last Admin: 07/16/17 01:17 Dose: 0.3 mg Ferrous Sulfate (Feosol) 325 mg PO BID [facility] Last Admin: 07/15/17 17:04 Dose: 325 mg Folic Acid (Folic Acid) 1 mg PO DAILY [facility] Last Admin: 07/15/17 09:14 Dose: 1 mg Gabapentin (Neurontin) 100 mg PO TID [facility] Last Admin: 07/15/17 17:05 Dose: 100 mg Glipizide (Glucotrol Xl) 10 mg PO BID [facility] Last Admin: 07/15/17 17:21 Dose: 10 mg Heparin Sodium (Porcine) (Heparin) 5,000 units SC Q8 [facility] PRN Reason: Protocol Last Admin: 07/16/17 01:17 Dose: 5,000 units Daptomycin 680 mg/ Sodium (Chloride) 100 mls @ 100 mls/hr IV QOTHERDAY [facility] Stop: 07/21/17 09:01 Insulin Human Regular (Humulin R) 0 units SC ACHS [facility] PRN Reason: Protocol Last Admin: 07/15/17 21:42 Dose: Not Given Magnesium Oxide (Mag-Ox) 400 mg PO BID [facility] Last Admin: 07/15/17 17:05 Dose: 400 mg Multivitamins/Minerals (Therapeutic-M Tab) 1 tab PO DAILY [facility] Last Admin: 07/15/17 09:13 Dose: 1 tab Mupirocin (Bactroban Ointment) 1 applic TOP BID [facility] Last Admin: 07/14/17 17:22 Dose: 1 % Pantoprazole Sodium (Protonix Ec Tab) 40 mg PO DAILY [facility] Last Admin: 07/15/17 09:13 Dose: 40 mg Pentoxifylline (Pentoxil) 400 mg PO BID [facility] Last Admin: 07/15/17 17:06 Dose: 400 mg Vitamin D (Vitamin D 400 Intl Units Tab) 400 intlu PO DAILY [facility] Last Admin: 07/15/17 09:14 Dose: 400 intlu Zolpidem Tartrate (Ambien) 5 mg PO HS [facility] Last Admin: 07/15/17 22:18 Dose: 5 mg - Labs Labs: 07/15/17 05:55 07/15/17 05:55 - Constitutional Appears: Well, Non-toxic, No Acute Distress - Extremities Exam Additional comments: VASC: DP pulses are nonpalpable, PT pulses are palpable, edema noted to the right lower extremity, TG: is warm at the ankle and distal stump DERM: ulceration present of the lateral aspect of the right foot, measuring approximately 3x 1 x .4 wound appears to have granular base with fibrotic border , no purulence, moderate purulence drainage, mild malodor noted, erythema surrounding periwound, no ascending cellulitis, no tunneling or undermining present NEURO: Grossly diminished sensation bilaterally ORTHO: Choparts amputation, no pain elicited with palpation of the ulceration - Neurological Exam Neurological Exam: Alert, Awake, Oriented x3 - Psychiatric Exam Psychiatric exam: Normal Affect, Normal Mood Assessment and Plan - Assessment and Plan (Free Text) Assessment: 45 year old male with PMH of CKD, OM Right foot, DM II with Neuropathy, bilateral Charcot with right plantar ulceration secondary to DM and Charcot deformity. Plan: Patient was seen at bedside Labs, charts, vitals reviewed: afebrile, WBC=11.0 on 07/15/17 Discussed plan in detail with attending Dr. Medina Was told will be admitted by ED (low Ca+, low Mag+, and EKG changes) X-rays final read- worsening soft tissue swelling, superimposed acute osteomyelitis Ulceration cleansed with betadine, betadine, DSD, ABD and yary Will continue daily dressing changes Continue IV antibiotics per ID F/U wound culture results-preliminary shows gram -asher, and gram +cocci Will continue to follow while in house
[2017-07-16 07:18] LABS: HEMOGLOBIN 9.8 g/dL (12.0-18.0); MEAN CELL VOLUME 76.3 fl (80.0-94.0); MEAN CORPUSCULAR HEMOGLOBIN 24.6 pg (27.0-31.0); MEAN CORPUSCULAR HGB CONC 32.3 g/dL (33.0-37.0); RBC 3.99 Mil/uL (4.40-5.90); RED CELL DISTRIBUTION WIDTH 13.9 % (11.5-14.5); WHITE BLOOD COUNT 9.1 K/uL (4.8-10.8)
[2017-07-16 07:20] LABS: ALBUMIN 3.3 g/dL (3.5-5.0)
[2017-07-16 07:30] LABS: IRON 84 ug/dL (49-181)
[2017-07-16 07:39] LABS: % IRON SATURATION 39 % (20-55); TOTAL IRON BINDING CAPACITY 216 ug/dL (250-450)
[2017-07-16 07:41] LABS: ALB/GLOB RATIO 0.8 (1.0-2.1)
--- NOTE | 2017-07-16 08:34 | CON ---
DATE: 07/15/2017 HISTORY OF PRESENT ILLNESS: A 45-year-old male with past medical history of diabetes, with neuropathy, bilateral Charcot foot with right plantar ulceration, previous right foot osteomyelitis, hypertension, and CKD stage IV/V presented with right foot pain and swelling since past 3 days, admitted for diabetic foot ulcer, nephrology service being consulted for hypocalcemia. Patient reports chills since past 3 days with associated increased swelling of right lower leg; otherwise, patient reports feeling well, appetite had been good, denies any nausea, vomiting, or diarrhea. Patient has been told about his CKD status in the past and that he would eventually need dialysis; however, he has not had any outpatient followup and has only seen nephrology consult while admitted in the hospital. PAST MEDICAL HISTORY: As above. FAMILY HISTORY: . SOCIAL HISTORY: . REVIEW OF SYSTEMS: HEENT: Reports having diabetic changes to eyes. Denies any sore throat or cold like symptoms. RESPIRATORY: Denies any difficulty breathing. CARDIOVASCULAR: Denies any chest pain, palpitations, or dyspnea on exertion. GI: Denies nausea, vomiting, or diarrhea. : Good urinary stream, no difficulty urinating, no dysuria. MUSCULOSKELETAL: Reports bilateral shoulder pain. Does not know the names of the medications he is on for pain. PSYCHIATRIC: Reports history of depression and insomnia. NEUROLOGIC: Decreased sensation in feet, sensation of burning in feet. EXTREMITIES: Bilateral lower leg edema, right greater than left. SKIN: Denies any itching or rashes. PHYSICAL EXAMINATION GENERAL: No distress, alert and oriented x3. VITAL SIGNS: This morning blood pressure 146/84, heart rate 68, respirations 18, temperature 97.9, O2 sat 97%on room air. HEENT: Moist mucous membranes. No cervical lymphadenopathy. CARDIOPULMONARY: S1 and S2 normal. No murmurs, no gallops, no rubs. RESPIRATORY: Lungs are clear to auscultation bilaterally. No rales, no rhonchi, no wheezes. GI: Abdomen is soft, nontender, nondistended. : No bladder distention. EXTREMITIES: Bilateral lower leg edema, right greater than left. SKIN: Warm. No cyanosis. Good capillary refill. PSYCHIATRIC: Normal mood, normal affect. NEUROLOGICAL: No asterixis. Diminished sensation on plantar surface of feet. LABORATORY DATA: This morning CBC: WBC 11.0, hemoglobin 9.2, hematocrit 29.0, platelets 189. Chemistry: Sodium 139. potassium 5.0, chloride 104, bicarb 24, BUN 49, creatinine 4.2, glucose 149, calcium 6.0, phosphorus 6.4, magnesium 1.3, albumin 3.1, LDL 132. Renal ultrasound from May 2017 showing large kidney sizes 13.5 cm and 13.3 cm on right and left respectively, echogenicity relatively preserved. ASSESSMENT AND PLAN: 1. Hypocalcemia. Calcium corrected for hypoalbuminemia is in the high 6's likely due to secondary hyperparathyroidism of advanced chronic kidney disease, hypomagnesemia is also likely contributory. Checking parathyroid hormone and phosphorous levels. Start calcitriol 0.25 mcg daily. 2. Chronic kidney disease stage IV/V. The patient does not seem to have had adequate followup, needs to plan for dialysis within the next one year. We will recommend to have vein mapping of upper extremities done while inpatient; otherwise, has relatively stable volume status and electrolyte status, no indication to initiate hemodialysis at this time. 3. Anemia, likely secondary to advanced chronic kidney disease. We will check iron studies and give erythropoietin as needed. 4. Hypertension. Blood pressure mildly elevated. Currently on amlodipine 5 mg daily, atenolol 50 mg daily, and clonidine 0.3 mg q. 8 hours, continue the same. Will benefit from diuretics with Lasix 20 mg b.i.d. 4. Diabetic foot infection. The patient currently on daptomycin 680 mg every other day dosed for advanced renal insufficiency. 5. Pain control. Need to hold all non-steroidal antiinflammatory drugs as this will worsen hypertension control and worsen renal function. Geovanny Ward MD
[2017-07-16] MEDS ORDERED: DAPTOmycin 500 mg Inj (Cubicin) IV SCH (09:00)
[2017-07-16] MEDS: GlipiZIDE 10 mg SR Tab PO SCH ×2 (09:42→17:32)
[2017-07-16] MEDS: Pantoprazole 40 mg EC Tab PO SCH (09:42)
[2017-07-16] MEDS: Insulin Regular 100 units/ml SC SCH ×4 (09:43→22:20)
[2017-07-16] MEDS: Cholecalciferol 400 Intl Units Tab PO SCH (09:43)
[2017-07-16] MEDS: Magnesium Oxide 400 mg Tab UD PO SCH ×2 (09:43→17:33)
[2017-07-16] MEDS: Multivitamin With Minerals Tab PO SCH (09:45)
--- NOTE | 2017-07-16 10:42 | PQF GENQUE ---
Dr. Lake, Clarification of "Sepsis Syndrome": no ICD-10 code for the term OR:Other explanation of clinical findings H and P: Impression: Severe electrolyte imbalance, hyperglycemia, hypermagnesemia, acute on chronic renal insufficiency, sepsis syndrome, infected foot ulcer, osteomyelitis, type 2 diabetes with hyperglycemia, hypertension, elevated cholesterol, peripheral vascular disease, Podiatry note: PMH of CKD, OM Right foot, DM II with Neuropathy, bilateral Charcot with right plantar ulceration secondary to DM and Charcot deformity X- rays final read- worsening soft tissue swelling, superimposed acute osteomyelitis Temperature, Pulse and Respirations: stable WBC: 10.7->11.0->9.1 blood cultures: Prelim: no growth x 24 hrs. This form is a permanent part of the medical record Clarification of your documentation is requested to better reflect the severity of illness and intensity of treatment of your patient. Indicators present [] Specify: [] [] Specify: [] [] Specify: [] [] Specify: [] Location in the medical record that reflects the above clinical findings: [] Treatment Provided: [] PHYSICIAN'S RESPONSE Based on your medical judgment of the clinical indicators outlined above please clarify the following: [] Practitioner response [] If unable to determine, please check the box, sign and date. Present On Admission (POA) Indicator: [] Present at the time of admission [] Not present at the time of admission [] Clinically Undetermined In responding to this query, please exercise your independent professional judgment. The fact that a question is asked does not imply that any particular answer is desired or expected. Thank you for your clarification on this documentation. If you have any questions please call. * Thank you, Mary Johnson RN BSN ext. #[phone] MTDD
--- NOTE | 2017-07-16 10:47 | PQF GENQUE ---
Dr. Lake, (1) In agreement with the BMI:41.1?:as listed in the EMR (2) if yes: please add the BMI to your next progress note OR:Disagree OR:Other explanation of clinical findings OR:Unable to determine H and P:dxs. include Morbid Obesity This form is a permanent part of the medical record Clarification of your documentation is requested to better reflect the severity of illness and intensity of treatment of your patient. Indicators present [] Specify: [] [] Specify: [] [] Specify: [] [] Specify: [] Location in the medical record that reflects the above clinical findings: [] Treatment Provided: [] PHYSICIAN'S RESPONSE Based on your medical judgment of the clinical indicators outlined above please clarify the following: [] Practitioner response [] If unable to determine, please check the box, sign and date. Present On Admission (POA) Indicator: [] Present at the time of admission [] Not present at the time of admission [] Clinically Undetermined In responding to this query, please exercise your independent professional judgment. The fact that a question is asked does not imply that any particular answer is desired or expected. Thank you for your clarification on this documentation. If you have any questions please call. * Thank you, Mary Johnson RN BSN ext. #[phone] MTDD
--- NOTE | 2017-07-16 11:43 | CP.PCM.PN ---
Subjective - Date & Time of Evaluation Date of Evaluation: 07/16/17 Time of Evaluation: 08:00 - Subjective Subjective: iv rx reordered tolerating well Objective - Vital Signs/Intake and Output Vital Signs (last 24 hours): Temp Pulse Resp BP Pulse Ox 97.8 F 66 18 158/84 H 96 07/16/17 08:00 07/16/17 09:44 07/16/17 08:00 07/16/17 09:44 07/16/17 08:00 - Medications Medications: Current Medications Amlodipine Besylate (Norvasc) 5 mg PO DAILY [facility] Last Admin: 07/16/17 09:44 Dose: 5 mg Atenolol (Tenormin) 50 mg PO DAILY [facility] Last Admin: 07/16/17 09:44 Dose: 50 mg Bupropion HCl (Wellbutrin) 75 mg PO BID [facility] Last Admin: 07/16/17 09:43 Dose: 75 mg Calcitriol (Rocaltrol) 0.25 mcg PO DAILY [facility] Last Admin: 07/16/17 09:44 Dose: 0.25 mcg Calcium Acetate (Phoslo) 667 mg PO WM@0900,1300,1700 [facility] Last Admin: 07/16/17 09:42 Dose: 667 mg Clonidine HCl (Catapres) 0.3 mg PO Q8 [facility] Last Admin: 07/16/17 09:41 Dose: 0.3 mg Ferrous Sulfate (Feosol) 325 mg PO BID [facility] Last Admin: 07/16/17 09:43 Dose: 325 mg Folic Acid (Folic Acid) 1 mg PO DAILY [facility] Last Admin: 07/16/17 09:41 Dose: 1 mg Gabapentin (Neurontin) 100 mg PO TID [facility] Last Admin: 07/16/17 09:41 Dose: 100 mg Glipizide (Glucotrol Xl) 10 mg PO BID [facility] Last Admin: 07/16/17 09:42 Dose: 10 mg Heparin Sodium (Porcine) (Heparin) 5,000 units SC Q8 [facility] PRN Reason: Protocol Last Admin: 07/16/17 09:42 Dose: 5,000 units Daptomycin 680 mg/ Sodium (Chloride) 100 mls @ 100 mls/hr IV QOTHERDAY [facility] Stop: 07/21/17 09:01 Last Admin: 07/16/17 10:57 Dose: 100 mls/hr Insulin Human Regular (Humulin R) 0 units SC [facility] PRN Reason: Protocol Last Admin: 07/16/17 09:43 Dose: 1 u Labetalol HCl (Trandate) 100 mg PO BID [facility] Last Admin: 07/16/17 09:40 Dose: 100 mg Magnesium Oxide (Mag-Ox) 400 mg PO BID [facility] Last Admin: 07/16/17 09:43 Dose: 400 mg Multivitamins/Minerals (Therapeutic-M Tab) 1 tab PO DAILY [facility] Last Admin: 07/16/17 09:45 Dose: 1 tab Mupirocin (Bactroban Ointment) 1 applic TOP BID [facility] Last Admin: 07/16/17 09:42 Dose: Not Given Pantoprazole Sodium (Protonix Ec Tab) 40 mg PO DAILY [facility] Last Admin: 07/16/17 09:42 Dose: 40 mg Pentoxifylline (Pentoxil) 400 mg PO BID [facility] Last Admin: 07/16/17 09:43 Dose: 400 mg Vitamin D (Vitamin D 400 Intl Units Tab) 400 intlu PO DAILY [facility] Last Admin: 07/16/17 09:43 Dose: 400 intlu Zolpidem Tartrate (Ambien) 5 mg PO HS [facility] Last Admin: 07/15/17 22:18 Dose: 5 mg - Labs Labs: 07/16/17 06:10 07/16/17 06:10 - Constitutional Appears: Non-toxic - Head Exam Head Exam: NORMOCEPHALIC - Eye Exam Eye Exam: PERRL - ENT Exam ENT Exam: Mucous Membranes Dry - Neck Exam Neck Exam: absent: Lymphadenopathy - Respiratory Exam Respiratory Exam: Decreased Breath Sounds - Cardiovascular Exam Cardiovascular Exam: REGULAR RHYTHM - GI/Abdominal Exam GI & Abdominal Exam: Distended - Rectal Exam Rectal Exam: Deferred - Exam Exam: NORMAL INSPECTION - Extremities Exam Additional comments: VASC: DP pulses are nonpalpable, PT pulses are palpable, edema noted to the right lower extremity, TG: is warm at the ankle and distal stump DERM: ulceration present of the lateral aspect of the right foot, measuring approximately 3x 1 x .4 wound appears to have granular base with fibrotic border , no purulence, moderate purulence drainage, mild malodor noted, erythema surrounding periwound, no ascending cellulitis, no tunneling or undermining present NEURO: Grossly diminished sensation bilaterally ORTHO: Choparts amputation, no pain elicited with palpation of the ulceration - Back Exam Back Exam: absent: CVA tenderness (L), CVA tenderness (R) - Neurological Exam Neurological Exam: Alert, Awake Assessment and Plan (1) Cellulitis of right foot Status: Acute (2) Diabetic foot infection Status: Acute (3) Diabetic foot ulcer Status: Acute (4) ESRD (end stage renal disease) on dialysis Status: Acute - Assessment and Plan (Free Text) Assessment: 45 year old male with PMH of CKD, OM Right foot, DM II with Neuropathy, bilateral Charcot with right plantar ulceration secondary to DM and Charcot deformity Xray + for om ADD GR[employer] CONSIDER VASCULAR RE-EVAL MAY NEED DEBRIDEMENT PROGNOSIS FOR LIMB SALVAGE GUARDED
[2017-07-16] MEDS: Aztreonam 1 GM in Sodium Chloride 0.9% 100 ML IVPB SCH ×2 (12:55→22:19)
--- NOTE | 2017-07-16 18:20 | CP.PCM.PN ---
Subjective - Date & Time of Evaluation Date of Evaluation: 07/16/17 Time of Evaluation: 07:15 - Subjective Subjective: patient seen and examined with attending patient denies Cp, SOB, N/V, chills, muscles spasm c/o headaches this morning afebrile, BP slightly elevated last night and this morning Objective - Vital Signs/Intake and Output Vital Signs (last 24 hours): Temp Pulse Resp BP Pulse Ox 98.1 F 66 20 123/72 98 07/16/17 15:44 07/16/17 17:38 07/16/17 15:44 07/16/17 17:38 07/16/17 15:44 - Medications Medications: Current Medications Amlodipine Besylate (Norvasc) 5 mg PO DAILY [facility] Last Admin: 07/16/17 09:44 Dose: 5 mg Atenolol (Tenormin) 50 mg PO DAILY [facility] Last Admin: 07/16/17 09:44 Dose: 50 mg Bupropion HCl (Wellbutrin) 75 mg PO BID [facility] Last Admin: 07/16/17 17:31 Dose: 75 mg Calcitriol (Rocaltrol) 0.25 mcg PO DAILY [facility] Last Admin: 07/16/17 09:44 Dose: 0.25 mcg Calcium Acetate (Phoslo) 667 mg PO WM@0900,1300,1700 [facility] Last Admin: 07/16/17 17:33 Dose: 667 mg Clonidine HCl (Catapres) 0.3 mg PO Q8 [facility] Last Admin: 07/16/17 17:31 Dose: 0.3 mg Ferrous Sulfate (Feosol) 325 mg PO BID [facility] Last Admin: 07/16/17 17:31 Dose: 325 mg Folic Acid (Folic Acid) 1 mg PO DAILY [facility] Last Admin: 07/16/17 09:41 Dose: 1 mg Gabapentin (Neurontin) 100 mg PO TID [facility] Last Admin: 07/16/17 17:33 Dose: 100 mg Glipizide (Glucotrol Xl) 10 mg PO BID [facility] Last Admin: 07/16/17 17:32 Dose: 10 mg Heparin Sodium (Porcine) (Heparin) 5,000 units SC Q8 [facility] PRN Reason: Protocol Last Admin: 07/16/17 17:32 Dose: 5,000 units Daptomycin 680 mg/ Sodium (Chloride) 100 mls @ 100 mls/hr IV QOTHERDAY [facility] Stop: 07/21/17 09:01 Last Admin: 07/16/17 10:57 Dose: 100 mls/hr Aztreonam 1 gm/ Sodium (Chloride) 100 mls @ 100 mls/hr IVPB Q12 [facility] Last Admin: 07/16/17 12:55 Dose: 100 mls/hr Insulin Human Regular (Humulin R) 0 units SC ACHS [facility] PRN Reason: Protocol Last Admin: 07/16/17 17:32 Dose: 4 u Labetalol HCl (Trandate) 100 mg PO BID [facility] Last Admin: 07/16/17 17:38 Dose: 100 mg Magnesium Oxide (Mag-Ox) 400 mg PO BID [facility] Last Admin: 07/16/17 17:33 Dose: 400 mg Multivitamins/Minerals (Therapeutic-M Tab) 1 tab PO DAILY [facility] Last Admin: 07/16/17 09:45 Dose: 1 tab Mupirocin (Bactroban Ointment) 1 applic TOP BID [facility] Last Admin: 07/16/17 09:42 Dose: Not Given Pantoprazole Sodium (Protonix Ec Tab) 40 mg PO DAILY [facility] Last Admin: 07/16/17 09:42 Dose: 40 mg Pentoxifylline (Pentoxil) 400 mg PO BID [facility] Last Admin: 07/16/17 17:33 Dose: 400 mg Vitamin D (Vitamin D 400 Intl Units Tab) 400 intlu PO DAILY [facility] Last Admin: 07/16/17 09:43 Dose: 400 intlu Zolpidem Tartrate (Ambien) 5 mg PO HS [facility] Last Admin: 07/15/17 22:18 Dose: 5 mg - Labs Labs: 07/16/17 06:10 07/16/17 06:10 - Constitutional Appears: No Acute Distress - ENT Exam ENT Exam: Mucous Membranes Moist - Respiratory Exam Respiratory Exam: Clear to Ausculation Bilateral, NORMAL BREATHING PATTERN - Cardiovascular Exam Cardiovascular Exam: REGULAR RHYTHM, +S1, +S2 - GI/Abdominal Exam GI & Abdominal Exam: Soft, Normal Bowel Sounds. absent: Guarding, Rigid, Tenderness - Extremities Exam Extremities Exam: Normal Inspection. absent: Calf Tenderness Additional comments: edema in lower extremities, right foot covered by clean dressing - Neurological Exam Neurological Exam: Alert, Awake, Oriented x3 - Skin Skin Exam: Dry, Intact, Normal Color Assessment and Plan (1) Cellulitis of right foot Assessment & Plan: c/w IV antibiotics f/u ID recommendations f/u final wound cultures c/w daily wound care by Podiatry Status: Acute (2) Diabetic infection of right foot Status: Acute (3) Hypocalcemia Assessment & Plan: c/w calcium replacement f/u labs Status: Acute (4) Hypertension Assessment & Plan: uncontrolled start Labetalol 100 mg BID as per Dr. Lake recommendations f/u BP Status: Chronic (5) Diabetes mellitus type 2 in obese Assessment & Plan: c/w meds c/w accuchecks Status: Chronic - Assessment and Plan (Free Text) Assessment: 45 year old male with PMH of CKD, OM Right foot, DM II with Neuropathy, bilateral Charcot with right plantar ulceration secondary to DM and Charcot deformity.
--- NOTE | 2017-07-16 23:53 | CP.PCM.PN ---
Subjective - Date & Time of Evaluation Date of Evaluation: 07/16/17 Time of Evaluation: 20:30 - Subjective Subjective: Patient reports feeling well; denies any shortness of breath; underwent vein mapping yesterday; Objective - Vital Signs/Intake and Output Vital Signs (last 24 hours): Temp Pulse Resp BP Pulse Ox 97.5 F L 68 20 161/94 H 99 07/16/17 19:25 07/16/17 19:25 07/16/17 19:25 07/16/17 19:25 07/16/17 19:25 - Medications Medications: Current Medications Amlodipine Besylate (Norvasc) 5 mg PO DAILY [facility] Last Admin: 07/16/17 09:44 Dose: 5 mg Atenolol (Tenormin) 50 mg PO DAILY [facility] Last Admin: 07/16/17 09:44 Dose: 50 mg Bupropion HCl (Wellbutrin) 75 mg PO BID [facility] Last Admin: 07/16/17 17:31 Dose: 75 mg Calcitriol (Rocaltrol) 0.25 mcg PO DAILY [facility] Last Admin: 07/16/17 09:44 Dose: 0.25 mcg Calcium Acetate (Phoslo) 667 mg PO WM@0900,1300,1700 [facility] Last Admin: 07/16/17 17:33 Dose: 667 mg Clonidine HCl (Catapres) 0.3 mg PO Q8 [facility] Last Admin: 07/16/17 17:31 Dose: 0.3 mg Ferrous Sulfate (Feosol) 325 mg PO BID [facility] Last Admin: 07/16/17 17:31 Dose: 325 mg Folic Acid (Folic Acid) 1 mg PO DAILY [facility] Last Admin: 07/16/17 09:41 Dose: 1 mg Gabapentin (Neurontin) 100 mg PO TID [facility] Last Admin: 07/16/17 17:33 Dose: 100 mg Glipizide (Glucotrol Xl) 10 mg PO BID [facility] Last Admin: 07/16/17 17:32 Dose: 10 mg Heparin Sodium (Porcine) (Heparin) 5,000 units SC Q8 [facility] PRN Reason: Protocol Last Admin: 07/16/17 17:32 Dose: 5,000 units Daptomycin 680 mg/ Sodium (Chloride) 100 mls @ 100 mls/hr IV QOTHERDAY [facility] Stop: 07/21/17 09:01 Last Admin: 07/16/17 10:57 Dose: 100 mls/hr Aztreonam 1 gm/ Sodium (Chloride) 100 mls @ 100 mls/hr IVPB Q12 [facility] Last Admin: 07/16/17 22:19 Dose: 100 mls/hr Insulin Human Regular (Humulin R) 0 units SC ACHS [facility] PRN Reason: Protocol Last Admin: 07/16/17 22:20 Dose: Not Given Labetalol HCl (Trandate) 100 mg PO BID [facility] Last Admin: 07/16/17 17:38 Dose: 100 mg Magnesium Oxide (Mag-Ox) 400 mg PO BID [facility] Last Admin: 07/16/17 17:33 Dose: 400 mg Multivitamins/Minerals (Therapeutic-M Tab) 1 tab PO DAILY [facility] Last Admin: 07/16/17 09:45 Dose: 1 tab Mupirocin (Bactroban Ointment) 1 applic TOP BID [facility] Last Admin: 07/16/17 22:20 Dose: Not Given Pantoprazole Sodium (Protonix Ec Tab) 40 mg PO DAILY [facility] Last Admin: 07/16/17 09:42 Dose: 40 mg Pentoxifylline (Pentoxil) 400 mg PO BID [facility] Last Admin: 07/16/17 17:33 Dose: 400 mg Vitamin D (Vitamin D 400 Intl Units Tab) 400 intlu PO DAILY [facility] Last Admin: 07/16/17 09:43 Dose: 400 intlu Zolpidem Tartrate (Ambien) 5 mg PO HS [facility] Last Admin: 07/16/17 22:21 Dose: 5 mg - Labs Labs: 07/16/17 06:10 07/16/17 06:10 - Constitutional Appears: Non-toxic, No Acute Distress - Head Exam Head Exam: NORMAL INSPECTION - Eye Exam Eye Exam: Normal appearance. absent: Scleral icterus - ENT Exam ENT Exam: Mucous Membranes Moist - Respiratory Exam Respiratory Exam: NORMAL BREATHING PATTERN Additional comments: mild basal rales; - Cardiovascular Exam Cardiovascular Exam: RRR, +S1, +S2 Additional comments: Mildly elevated JVD; - GI/Abdominal Exam GI & Abdominal Exam: Soft. absent: Distended, Tenderness - Extremities Exam Additional comments: Moderately edematous lower legs R>>L; - Neurological Exam Neurological Exam: Alert, Awake - Psychiatric Exam Psychiatric exam: Normal Affect, Normal Mood - Skin Skin Exam: Normal Color, Warm. absent: Cyanosis Assessment and Plan (1) CKD (chronic kidney disease) Assessment & Plan: CKD IV/V - Advanced CKD likely due to diabetic nephropathy; relatively stable renal function of late but patient counseled again on impending need to start dialysis within the next year; mild volume excess on exam and potassium at higher end of normal; Obtained vein mapping yesterday, awaiting official results; will continue to discuss dialysis planning with patient, including AVF creation; -low K diet Status: Acute (2) Chronic kidney disease-mineral and bone disorder Assessment & Plan: Secondary hyperparathyroidism with low Ca and elevated phos; started on calcitriol 0.25 mcg daily and phoslo 1 tab w/ meals, continue; awaiting repeat PTH level; avoid IV Calcium replenishment unless patient has symptomatic hypocalcemia or ECG changes (can complex with high phos and deposit in tissues/ vasculature); Status: Acute (3) Hypertensive CKD (chronic kidney disease) Assessment & Plan: BP uncontrolled despite starting labetalol; needs diuretics due to inadequate natiuresis that occurs with advanced CKD; starting with lasix 40 mg daily; continue rest of meds; Status: Acute (4) Anemia Assessment & Plan: Anemia due to chronic disease and CKD; iron replete; will benefit from EPO but will hold off until BP better controlled; Status: Chronic (5) Osteomyelitis of right foot Assessment & Plan: On daptomycin and aztreonam, dosed for renal insufficiency; Status: Suspected
--- NOTE | 2017-07-17 08:05 | CP.PCM.CON ---
History of Present Illness - History of Present Illness History of Present Illness: 45 year old male with PMH of CKD, OM Right foot, DM II with Neuropathy, bilateral Charcot seen at bedside for right planar foot ulceration secondary to DM and Charcot deformity. Patient seen laying comfortably in bedside, AA0x3, and in NAD. Dressing is clean and intact with mild strikethrough noted. Denies acute events overnight. Denies pain to ulceration. Denies n/v/sob/cp/chills or f. Past Patient History - Past Medical History & Family History Past Medical History?: Yes - Past Social History Smoking Status: Former Smoker - CARDIAC Hx Congestive Heart Failure: No Hx Hypercholesterolemia: Yes Hx Hypertension: Yes - PULMONARY Hx Chronic Obstructive Pulmonary Disease (COPD): No - NEUROLOGICAL Hx Neurological Disorder: No - HEENT Hx HEENT Problems: Yes - RENAL Hx Chronic Kidney Disease: Yes - ENDOCRINE/METABOLIC Hx Hypothyroidism: No - HEMATOLOGICAL/ONCOLOGICAL Hx Anemia: Yes Hx Human Immunodeficiency Virus (HIV): No - INTEGUMENTARY Hx Dermatological Problems: Yes - MUSCULOSKELETAL/RHEUMATOLOGICAL Hx Arthritis: No Hx Rheumatoid Arthritis: No - GASTROINTESTINAL Hx Gastrointestinal Disorders: No Hx Nausea: Yes Hx Vomiting: Yes - GENITOURINARY/GYNECOLOGICAL Hx Genitourinary Disorders: No - PSYCHIATRIC Hx Psychophysiologic Disorder: No Hx Substance Use: No - SURGICAL HISTORY Hx Surgeries: Yes Hx Amputation: Yes (Partial right BTK) - ANESTHESIA Hx Anesthesia: Yes Hx Anesthesia Reactions: No Hx Malignant Hyperthermia: No Meds Allergies/Adverse Reactions: Allergies Allergy/AdvReac Type Severity Reaction Status Date / Time Penicillins Allergy RASH Verified 07/14/17 15:48 - Medications Medications: Current Medications Amlodipine Besylate (Norvasc) 10 mg PO DAILY [facility] Atenolol (Tenormin) 50 mg PO DAILY [facility] Last Admin: 07/16/17 09:44 Dose: 50 mg Bupropion HCl (Wellbutrin) 75 mg PO BID [facility] Last Admin: 07/16/17 17:31 Dose: 75 mg Calcitriol (Rocaltrol) 0.25 mcg PO DAILY [facility] Last Admin: 07/16/17 09:44 Dose: 0.25 mcg Calcium Acetate (Phoslo) 667 mg PO WM@0900,1300,1700 [facility] Clonidine HCl (Catapres) 0.3 mg PO Q8 [facility] Last Admin: 07/17/17 01:02 Dose: 0.3 mg Ferrous Sulfate (Feosol) 325 mg PO BID [facility] Last Admin: 07/16/17 17:31 Dose: 325 mg Folic Acid (Folic Acid) 1 mg PO DAILY [facility] Last Admin: 07/16/17 09:41 Dose: 1 mg Furosemide (Lasix) 40 mg PO DAILY [facility] Gabapentin (Neurontin) 100 mg PO TID [facility] Last Admin: 07/16/17 17:33 Dose: 100 mg Glipizide (Glucotrol Xl) 10 mg PO BID [facility] Last Admin: 07/16/17 17:32 Dose: 10 mg Heparin Sodium (Porcine) (Heparin) 5,000 units SC Q8 [facility] PRN Reason: Protocol Last Admin: 07/17/17 01:02 Dose: 5,000 units Daptomycin 680 mg/ Sodium (Chloride) 100 mls @ 100 mls/hr IV QOTHERDAY [facility] Stop: 07/21/17 09:01 Last Admin: 07/16/17 10:57 Dose: 100 mls/hr Aztreonam 1 gm/ Sodium (Chloride) 100 mls @ 100 mls/hr IVPB Q12 [facility] Last Admin: 07/16/17 22:19 Dose: 100 mls/hr Insulin Human Regular (Humulin R) 0 units SC ACHS [facility] PRN Reason: Protocol Last Admin: 07/16/17 22:20 Dose: Not Given Labetalol HCl (Trandate) 100 mg PO BID [facility] Last Admin: 07/16/17 17:38 Dose: 100 mg Magnesium Oxide (Mag-Ox) 400 mg PO BID [facility] Last Admin: 07/16/17 17:33 Dose: 400 mg Multivitamins/Minerals (Therapeutic-M Tab) 1 tab PO DAILY [facility] Last Admin: 07/16/17 09:45 Dose: 1 tab Mupirocin (Bactroban Ointment) 1 applic TOP BID [facility] Last Admin: 07/16/17 22:20 Dose: Not Given Pantoprazole Sodium (Protonix Ec Tab) 40 mg PO DAILY [facility] Last Admin: 07/16/17 09:42 Dose: 40 mg Pentoxifylline (Pentoxil) 400 mg PO BID [facility] Last Admin: 07/16/17 17:33 Dose: 400 mg Vitamin D (Vitamin D 400 Intl Units Tab) 400 intlu PO DAILY [facility] Last Admin: 07/16/17 09:43 Dose: 400 intlu Zolpidem Tartrate (Ambien) 5 mg PO HS [facility] Last Admin: 07/16/17 22:21 Dose: 5 mg Physical Exam - Constitutional Appears: Well, Non-toxic, No Acute Distress - Extremities Exam Additional comments: VASC: DP pulses are nonpalpable, PT pulses are palpable, edema noted to the right lower extremity, TG: is warm at the ankle and distal stump DERM: ulceration present of the lateral aspect of the right foot, measuring approximately 3x .8 x .4 wound appears to have granular base with fibrotic border, no purulence, mild serous yellow drainage, mild malodor noted, decrease erythema surrounding periwound, no ascending cellulitis, no tunneling or undermining present, decrease periwound maceration of ulceration NEURO: Grossly diminished sensation bilaterally ORTHO: Choparts amputation, no pain elicited with palpation of the ulceration - Neurological Exam Neurological exam: Alert, Oriented x3 - Psychiatric Exam Psychiatric exam: Normal Affect, Normal Mood Results - Vital Signs Recent Vital Signs: Last Vital Signs Temp 97.7 F 07/17/17 08:00 Pulse 64 07/17/17 08:00 Resp 18 07/17/17 08:00 BP 187/101 H 07/17/17 08:00 Pulse Ox 99 07/17/17 08:00 - Labs Result Diagrams: 07/16/17 06:10 07/16/17 06:10 Labs: Laboratory Results - last 24 hr 07/15/17 07/16/17 07/16/17 10:30 11:44 16:08 POC Glucose (mg/dL) 254 H 331 H Calcium (PTH Intact) 5.9 L PTH w/Ion &Tot Calcium 236 H 07/16/17 07/17/17 21:44 05:53 POC Glucose (mg/dL) 289 H 181 H Calcium (PTH Intact) PTH w/Ion &Tot Calcium Assessment & Plan - Assessment and Plan (Free Text) Assessment: 45 year old male with PMH of CKD, OM Right foot, DM II with Neuropathy, bilateral Charcot with right plantar ulceration secondary to DM and Charcot deformity. Plan: Patient was seen at bedside Labs, charts, vitals reviewed: afebrile, WBC=9.1, WBC is 11 on 07/15/17 X-rays final read- worsening soft tissue swelling, superimposed acute osteomyelitis Wound culture shows E. COli and Beta Hemolytic Strep Group B Discussed plan in detail with attending Dr. Medina At this time, podiatry do not plan any surgical intervention Ulceration cleansed with betadine and dressing changed with Mupricon, betadine W2D, DSD, ABD and kapil Will continue daily dresses changes with Mupricon, betadine W2D, DSD, and Kapil Continue IV antibiotics per ID Patient can Fully Weight bear in IQUGMIUT boot. Will continue to follow while in house
[2017-07-17] MEDS: Aztreonam 1 GM in Sodium Chloride 0.9% 100 ML IVPB SCH ×2 (08:23→21:22)
--- NOTE | 2017-07-17 08:24 | CP.PCM.PN ---
Subjective - Date & Time of Evaluation Date of Evaluation: 07/17/17 Time of Evaluation: 07:20 - Subjective Subjective: patient seen and examined with attending patient feeling well this morning afebrile, but still with elevated BP Denies Cp, SOB, headaches, N/V, abdominal pain, muscles cramps at this eval Objective - Vital Signs/Intake and Output Vital Signs (last 24 hours): Temp Pulse Resp BP Pulse Ox 97.7 F 64 18 187/101 H 99 07/17/17 08:00 07/17/17 08:00 07/17/17 08:00 07/17/17 08:00 07/17/17 08:00 - Medications Medications: Current Medications Amlodipine Besylate (Norvasc) 10 mg PO DAILY [facility] Atenolol (Tenormin) 50 mg PO DAILY [facility] Last Admin: 07/16/17 09:44 Dose: 50 mg Bupropion HCl (Wellbutrin) 75 mg PO BID [facility] Last Admin: 07/16/17 17:31 Dose: 75 mg Calcitriol (Rocaltrol) 0.25 mcg PO DAILY [facility] Last Admin: 07/16/17 09:44 Dose: 0.25 mcg Calcium Acetate (Phoslo) 667 mg PO WM@0900,1300,1700 [facility] Clonidine HCl (Catapres) 0.3 mg PO Q8 [facility] Last Admin: 07/17/17 01:02 Dose: 0.3 mg Ferrous Sulfate (Feosol) 325 mg PO BID [facility] Last Admin: 07/16/17 17:31 Dose: 325 mg Folic Acid (Folic Acid) 1 mg PO DAILY [facility] Last Admin: 07/16/17 09:41 Dose: 1 mg Furosemide (Lasix) 40 mg PO DAILY [facility] Gabapentin (Neurontin) 100 mg PO TID [facility] Last Admin: 07/16/17 17:33 Dose: 100 mg Glipizide (Glucotrol Xl) 10 mg PO BID [facility] Last Admin: 07/16/17 17:32 Dose: 10 mg Heparin Sodium (Porcine) (Heparin) 5,000 units SC Q8 [facility] PRN Reason: Protocol Last Admin: 07/17/17 01:02 Dose: 5,000 units Daptomycin 680 mg/ Sodium (Chloride) 100 mls @ 100 mls/hr IV QOTHERDAY [facility] Stop: 07/21/17 09:01 Last Admin: 07/16/17 10:57 Dose: 100 mls/hr Aztreonam 1 gm/ Sodium (Chloride) 100 mls @ 100 mls/hr IVPB Q12 [facility] Last Admin: 07/16/17 22:19 Dose: 100 mls/hr Insulin Human Regular (Humulin R) 0 units SC ACHS [facility] PRN Reason: Protocol Last Admin: 07/16/17 22:20 Dose: Not Given Labetalol HCl (Trandate) 100 mg PO BID [facility] Last Admin: 07/16/17 17:38 Dose: 100 mg Magnesium Oxide (Mag-Ox) 400 mg PO BID [facility] Last Admin: 07/16/17 17:33 Dose: 400 mg Multivitamins/Minerals (Therapeutic-M Tab) 1 tab PO DAILY [facility] Last Admin: 07/16/17 09:45 Dose: 1 tab Mupirocin (Bactroban Ointment) 1 applic TOP BID [facility] Last Admin: 07/16/17 22:20 Dose: Not Given Pantoprazole Sodium (Protonix Ec Tab) 40 mg PO DAILY [facility] Last Admin: 07/16/17 09:42 Dose: 40 mg Pentoxifylline (Pentoxil) 400 mg PO BID [facility] Last Admin: 07/16/17 17:33 Dose: 400 mg Vitamin D (Vitamin D 400 Intl Units Tab) 400 intlu PO DAILY [facility] Last Admin: 07/16/17 09:43 Dose: 400 intlu Zolpidem Tartrate (Ambien) 5 mg PO HS [facility] Last Admin: 07/16/17 22:21 Dose: 5 mg - Labs Labs: 07/16/17 06:10 07/16/17 06:10 - Additional Findings Additional findings: Constitutional Appears: No Acute Distress - ENT Exam ENT Exam: Mucous Membranes Moist - Respiratory Exam Respiratory Exam: Clear to Ausculation Bilateral, NORMAL BREATHING PATTERN - Cardiovascular Exam Cardiovascular Exam: REGULAR RHYTHM, +S1, +S2 - GI/Abdominal Exam GI & Abdominal Exam: Soft, Normal Bowel Sounds. absent: Guarding, Rigid, Tenderness - Extremities Exam Extremities Exam: Normal Inspection. absent: Calf Tenderness Additional comments: edema in lower extremities, right foot covered by clean dressing - Neurological Exam Neurological Exam: Alert, Awake, Oriented x3 - Skin Assessment and Plan (1) Cellulitis of right foot Assessment & Plan: final wound Cx showed E-Coli, and Beta Hemo strep Group B c/w Daptomycin IV daily started yesterday on Aztreonam IV Q12 as per ID recommendations f/u ID rec podiatry do not plan any surgical intervention at this time Status: Acute (2) Diabetic infection of right foot Assessment & Plan: c/w wound care by podiatry team f/u recommendations Status: Acute (3) Hypocalcemia Assessment & Plan: c/w calcium supplementation f/u Mag and Calcium Status: Acute (4) Hypertension Assessment & Plan: uncontrolled increased amlodipine to 10 mg daily started on furosemide 40 mg PO as per Nephro rec f/u BP Status: Chronic (5) Diabetes mellitus type 2 in obese Assessment & Plan: uncontrolled c/w accucheck and BSL management Status: Chronic
[2017-07-17] MEDS: GlipiZIDE 10 mg SR Tab PO SCH ×2 (08:26→16:04)
[2017-07-17] MEDS: Insulin Regular 100 units/ml SC SCH ×4 (08:27→21:23)
[2017-07-17] MEDS: Magnesium Oxide 400 mg Tab UD PO SCH ×2 (08:28→16:04)
[2017-07-17] MEDS: Pantoprazole 40 mg EC Tab PO SCH (08:29)
[2017-07-17] MEDS: Multivitamin With Minerals Tab PO SCH (08:30)
[2017-07-17] MEDS: Cholecalciferol 400 Intl Units Tab PO SCH (08:31)
--- NOTE | 2017-07-17 13:51 | US ---
PROCEDURE: Upper Extremity Venous Duplex Exam HISTORY: bilateral upper ext vein mapping for AVF creation PRIORS: None. TECHNIQUE: Bilateral upper extremity, internal jugular, subclavian, axillary, brachial, ulnar, radial, basilic and upper cephalic veins were evaluated. Flow was assessed with color Doppler, compressibility, assessment of phasic flow and augmentation response. Report prepared by cytology technologist. FINDINGS: RIGHT: 1. Internal Jugular Vein: Compressibility - Fully compressible: Thrombus - None : Flow - Phasic 2. Subclavian Vein:Compressibility - Fully compressible: Thrombus - None : Flow - Phasic 3. Axillary Vein: Compressibility - Fully compressible: Thrombus - None 4. Brachial Vein: Compressibility - Fully compressible: Thrombus - None 5. Ulnar Vein:Compressibility - Fully compressible: Thrombus - None 6. Radial Vein:Compressibility - Fully compressible: Thrombus - None 7. Cephalic Vein: Compressibility - Fully compressible: thrombus - None 7.1. Upper Arm: Proximal Diameter: 0.42cm. Mid Diameter: 0.24cm. Distal Diameter: 0.32cm. 7.2. Forearm: Proximal Diameter: cm. Mid Diameter:cm. Distal Diameter: cm 8. Basilic Vein:Compressibility - Fully compressible: thrombus - None 8.1. Upper Arm:Proximal Diameter: 0.74cm. Mid Diameter: 0.48cm. LEFT: 1. Internal Jugular Vein: Compressibility - Fully compressible: Thrombus - None : Flow - Phasic 2. Subclavian Vein:Compressibility - Fully compressible: Thrombus - None : Flow - Phasic 3. Axillary Vein: Compressibility - Fully compressible: Thrombus - None 4. Brachial Vein: Compressibility - Fully compressible: Thrombus - None 5. Ulnar Vein:Compressibility - Fully compressible: Thrombus - None 6. Radial Vein:Compressibility - Fully compressible: Thrombus - None 7. Cephalic Vein: Not visualized 8. Basilic Vein:Compressibility - Fully compressible: thrombus - None 8.1. Upper Arm:Proximal Diameter: 0.75cm. Mid Diameter: 0.62cm. OTHER FINDINGS: Right: None. Left: None. IMPRESSION: Right: Diameter measurements of the right cephalic vein is measured between 0.24 cm and 0.42 cm and basilic vein is measured between 0.48 cm and 0.74 cm. Left: Diameter measurements of the left cephalic vein (not visualized). Left basilic vein is measured between 0.62cm and 0.75 Scm.
--- NOTE | 2017-07-17 14:00 | CP.PCM.PN ---
Subjective - Date & Time of Evaluation Date of Evaluation: 07/17/17 Time of Evaluation: 08:00 - Subjective Subjective: denies fever Objective - Vital Signs/Intake and Output Vital Signs (last 24 hours): Temp Pulse Resp BP Pulse Ox 97.4 F L 62 18 211/106 H 100 07/17/17 12:00 07/17/17 12:00 07/17/17 12:00 07/17/17 12:00 07/17/17 12:00 - Medications Medications: Current Medications Amlodipine Besylate (Norvasc) 10 mg PO DAILY [facility] Last Admin: 07/17/17 08:46 Dose: 10 mg Bupropion HCl (Wellbutrin) 75 mg PO BID [facility] Last Admin: 07/17/17 08:31 Dose: 75 mg Calcitriol (Rocaltrol) 0.25 mcg PO DAILY [facility] Last Admin: 07/17/17 08:30 Dose: 0.25 mcg Calcium Acetate (Phoslo) 667 mg PO WM@0900,1300,1700 [facility] Last Admin: 07/17/17 12:37 Dose: 667 mg Carvedilol (Coreg) 12.5 mg PO BID [facility] Clonidine HCl (Catapres) 0.3 mg PO Q8 [facility] Last Admin: 07/17/17 08:24 Dose: 0.3 mg Ferrous Sulfate (Feosol) 325 mg PO BID [facility] Last Admin: 07/17/17 08:25 Dose: 325 mg Folic Acid (Folic Acid) 1 mg PO DAILY [facility] Last Admin: 07/17/17 08:26 Dose: 1 mg Furosemide (Lasix) 40 mg PO DAILY [facility] Last Admin: 07/17/17 08:46 Dose: 40 mg Furosemide (Lasix) 20 mg PO DAILY@1700 [facility] Gabapentin (Neurontin) 100 mg PO TID [facility] Last Admin: 07/17/17 12:37 Dose: 100 mg Glipizide (Glucotrol Xl) 10 mg PO BID [facility] Last Admin: 07/17/17 08:26 Dose: 10 mg Heparin Sodium (Porcine) (Heparin) 5,000 units SC Q8 [facility] PRN Reason: Protocol Last Admin: 07/17/17 08:26 Dose: 5,000 units Daptomycin 680 mg/ Sodium (Chloride) 100 mls @ 100 mls/hr IV QOTHERDAY [facility] Stop: 07/21/17 09:01 Last Admin: 07/16/17 10:57 Dose: 100 mls/hr Aztreonam 1 gm/ Sodium (Chloride) 100 mls @ 100 mls/hr IVPB Q12 [facility] Last Admin: 07/17/17 08:23 Dose: 100 mls/hr Insulin Human Regular (Humulin R) 0 units SC ACHS [facility] PRN Reason: Protocol Last Admin: 07/17/17 12:30 Dose: 2 u Magnesium Oxide (Mag-Ox) 400 mg PO BID [facility] Last Admin: 07/17/17 08:28 Dose: 400 mg Multivitamins/Minerals (Therapeutic-M Tab) 1 tab PO DAILY [facility] Last Admin: 07/17/17 08:30 Dose: 1 tab Mupirocin (Bactroban Ointment) 1 applic TOP BID [facility] Last Admin: 07/17/17 08:24 Dose: 1 appl Pantoprazole Sodium (Protonix Ec Tab) 40 mg PO DAILY [facility] Last Admin: 07/17/17 08:29 Dose: 40 mg Pentoxifylline (Pentoxil) 400 mg PO BID [facility] Last Admin: 07/17/17 08:29 Dose: 400 mg Vitamin D (Vitamin D 400 Intl Units Tab) 400 intlu PO DAILY [facility] Last Admin: 07/17/17 08:31 Dose: 400 intlu Zolpidem Tartrate (Ambien) 5 mg PO HS [facility] Last Admin: 07/16/17 22:21 Dose: 5 mg - Labs Labs: 07/16/17 06:10 07/16/17 06:10 - Constitutional Appears: Non-toxic - Head Exam Head Exam: NORMOCEPHALIC - Eye Exam Eye Exam: absent: Scleral icterus - ENT Exam ENT Exam: Mucous Membranes Dry - Neck Exam Neck Exam: absent: Lymphadenopathy - Respiratory Exam Respiratory Exam: Decreased Breath Sounds - Cardiovascular Exam Cardiovascular Exam: REGULAR RHYTHM - GI/Abdominal Exam GI & Abdominal Exam: Distended Assessment and Plan (1) Cellulitis of right foot Status: Acute (2) Diabetic foot infection Status: Acute (3) Diabetic foot ulcer Status: Acute (4) ESRD (end stage renal disease) on dialysis Status: Acute - Assessment and Plan (Free Text) Assessment: 45 year old male with PMH of CKD, OM Right foot, DM II with Neuropathy, bilateral Charcot seen at bedside for right planar foot ulceration secondary to DM and Charcot deformity. cont iv rx
--- NOTE | 2017-07-17 18:45 | CP.PCM.PN ---
Subjective - Date & Time of Evaluation Date of Evaluation: 07/17/17 Time of Evaluation: 11:00 - Subjective Subjective: Patient denies any shortness of breath; denies any chest pain, palpitations or headache; reports home SBP in 140-160's range; Objective - Vital Signs/Intake and Output Vital Signs (last 24 hours): Temp Pulse Resp BP Pulse Ox 97.5 F L 61 20 166/103 H 99 07/17/17 15:39 07/17/17 17:35 07/17/17 15:39 07/17/17 17:35 07/17/17 15:39 Intake and Output: 07/17/17 07/17/17 06:59 18:59 Intake Total 1110 Output Total 800 Balance 310 - Medications Medications: Current Medications Amlodipine Besylate (Norvasc) 10 mg PO DAILY [facility] Bupropion HCl (Wellbutrin) 75 mg PO BID [facility] Last Admin: 07/17/17 16:05 Dose: 75 mg Calcitriol (Rocaltrol) 0.25 mcg PO DAILY [facility] Last Admin: 07/17/17 08:30 Dose: 0.25 mcg Calcium Acetate (Phoslo) 667 mg PO WM@0900,1300,1700 [facility] Last Admin: 07/17/17 16:05 Dose: 667 mg Carvedilol (Coreg) 12.5 mg PO BID [facility] Last Admin: 07/17/17 16:03 Dose: 12.5 mg Clonidine HCl (Catapres) 0.3 mg PO Q8 [facility] Last Admin: 07/17/17 16:02 Dose: 0.3 mg Ferrous Sulfate (Feosol) 325 mg PO BID [facility] Last Admin: 07/17/17 16:04 Dose: 325 mg Folic Acid (Folic Acid) 1 mg PO DAILY [facility] Last Admin: 07/17/17 08:26 Dose: 1 mg Furosemide (Lasix) 40 mg PO DAILY [facility] Last Admin: 07/17/17 08:46 Dose: 40 mg Furosemide (Lasix) 20 mg PO DAILY@1700 [facility] Last Admin: 07/17/17 17:34 Dose: 20 mg Gabapentin (Neurontin) 100 mg PO TID [facility] Last Admin: 07/17/17 16:04 Dose: 100 mg Glipizide (Glucotrol Xl) 10 mg PO BID [facility] Last Admin: 07/17/17 16:04 Dose: 10 mg Heparin Sodium (Porcine) (Heparin) 5,000 units SC Q8 [facility] PRN Reason: Protocol Last Admin: 07/17/17 16:04 Dose: 5,000 units Daptomycin 680 mg/ Sodium (Chloride) 100 mls @ 100 mls/hr IV QOTHERDAY [facility] Stop: 07/21/17 09:01 Last Admin: 07/16/17 10:57 Dose: 100 mls/hr Aztreonam 1 gm/ Sodium (Chloride) 100 mls @ 100 mls/hr IVPB Q12 [facility] Last Admin: 07/17/17 08:23 Dose: 100 mls/hr Insulin Human Regular (Humulin R) 0 units SC ACHS [facility] PRN Reason: Protocol Last Admin: 07/17/17 17:35 Dose: 3 u Magnesium Oxide (Mag-Ox) 400 mg PO BID [facility] Last Admin: 07/17/17 16:04 Dose: 400 mg Multivitamins/Minerals (Therapeutic-M Tab) 1 tab PO DAILY [facility] Last Admin: 07/17/17 08:30 Dose: 1 tab Mupirocin (Bactroban Ointment) 1 applic TOP BID [facility] Last Admin: 07/17/17 16:02 Dose: Not Given Pantoprazole Sodium (Protonix Ec Tab) 40 mg PO DAILY [facility] Last Admin: 07/17/17 08:29 Dose: 40 mg Pentoxifylline (Pentoxil) 400 mg PO BID [facility] Last Admin: 07/17/17 08:29 Dose: 400 mg Vitamin D (Vitamin D 400 Intl Units Tab) 400 intlu PO DAILY [facility] Last Admin: 07/17/17 08:31 Dose: 400 intlu Zolpidem Tartrate (Ambien) 5 mg PO HS [facility] Last Admin: 07/16/17 22:21 Dose: 5 mg - Labs Labs: 07/16/17 06:10 07/16/17 06:10 - Constitutional Appears: Non-toxic, No Acute Distress - Head Exam Head Exam: NORMAL INSPECTION - Eye Exam Eye Exam: Normal appearance - ENT Exam ENT Exam: Mucous Membranes Moist - Respiratory Exam Respiratory Exam: NORMAL BREATHING PATTERN. absent: Rhonchi, Wheezes, Respiratory Distress Additional comments: mild basal rales; - Cardiovascular Exam Cardiovascular Exam: REGULAR RHYTHM, +S1, +S2 - GI/Abdominal Exam GI & Abdominal Exam: Soft. absent: Distended, Tenderness - Extremities Exam Additional comments: mild to moderate lower leg edema R > L; - Neurological Exam Neurological Exam: Alert, Awake - Psychiatric Exam Psychiatric exam: Normal Affect, Normal Mood - Skin Skin Exam: Normal Color, Warm Assessment and Plan (1) CKD (chronic kidney disease) Assessment & Plan: CKD IV (late); relatively stable renal function of late; vein mapping done as part of dialysis access planning (to be done as outpatient); avoid any nephrotoxic agents (NSAIDS, IV contrast); Status: Acute (2) Chronic kidney disease-mineral and bone disorder Assessment & Plan: Started on calcitriol 0.25 mcg daily for secondary hyperparathyroidism and phoslo 2 tabs w/ meals for high phos; continue same; Status: Acute (3) Hypertensive CKD (chronic kidney disease) Assessment & Plan: BP markedly elevated today; with advanced CKD status, is not able to maintain adequate sodium balance and needs to be kept on standing diuretics to control BP ; -Giving lasix 40 mg in am, 20 mg in pm to start with -Changing B-blockers to coreg (only needs twice daily dosing compared with labetalol which may need 3 times daily dosing) -Continue norvasc 10 Status: Acute (4) Anemia Assessment & Plan: Will likely need EPO but after BP better controlled; Status: Chronic (5) Osteomyelitis of right foot Assessment & Plan: On aztreonam and dapto, dosed for renal insufficiency; Status: Suspected
[2017-07-18 06:37] LABS: HEMOGLOBIN 9.8 g/dL (12.0-18.0); MEAN CELL VOLUME 75.7 fl (80.0-94.0); MEAN CORPUSCULAR HEMOGLOBIN 25.1 pg (27.0-31.0); MEAN CORPUSCULAR HGB CONC 33.2 g/dL (33.0-37.0); RBC 3.91 Mil/uL (4.40-5.90); RED CELL DISTRIBUTION WIDTH 14.2 % (11.5-14.5); WHITE BLOOD COUNT 8.9 K/uL (4.8-10.8)
[2017-07-18 06:47] LABS: CALCIUM 7.9 mg/dL (8.4-10.2)
[2017-07-18] MEDS ORDERED: Sod Polystyrene Sulf 15 gm/60 ml Oral Susp PO ONE (08:05)
--- NOTE | 2017-07-18 08:24 | CP.PCM.PN ---
Subjective - Date & Time of Evaluation Date of Evaluation: 07/18/17 Time of Evaluation: 08:21 - Subjective Subjective: 45 year old male with PMH of CKD, OM Right foot, DM II with Neuropathy, bilateral Charcot seen at bedside for right plantar foot ulceration secondary to DM and Charcot deformity with Chopart's amputation. Patient seen laying comfortably at bedside, AA0x3, and in NAD. Dressing is clean and intact with mild strikethrough noted. Denies acute events overnight. Denies pain to ulceration. Denies N/V/F/C/CP/SOB Objective - Vital Signs/Intake and Output Vital Signs (last 24 hours): Temp Pulse Resp BP Pulse Ox 98.2 F 67 20 167/82 H 97 07/18/17 05:18 07/18/17 05:18 07/18/17 05:18 07/18/17 05:18 07/18/17 05:18 - Medications Medications: Current Medications Amlodipine Besylate (Norvasc) 10 mg PO DAILY [facility] Bupropion HCl (Wellbutrin) 75 mg PO BID [facility] Last Admin: 07/17/17 16:05 Dose: 75 mg Calcitriol (Rocaltrol) 0.25 mcg PO DAILY [facility] Last Admin: 07/17/17 08:30 Dose: 0.25 mcg Calcium Acetate (Phoslo) 667 mg PO WM@0900,1300,1700 [facility] Last Admin: 07/17/17 16:05 Dose: 667 mg Clonidine HCl (Catapres) 0.3 mg PO Q8 [facility] Last Admin: 07/18/17 00:10 Dose: 0.3 mg Ferrous Sulfate (Feosol) 325 mg PO BID [facility] Last Admin: 07/17/17 16:04 Dose: 325 mg Folic Acid (Folic Acid) 1 mg PO DAILY [facility] Last Admin: 07/17/17 08:26 Dose: 1 mg Furosemide (Lasix) 40 mg PO DAILY [facility] Last Admin: 07/17/17 08:46 Dose: 40 mg Furosemide (Lasix) 20 mg PO DAILY@1700 [facility] Last Admin: 07/17/17 17:34 Dose: 20 mg Gabapentin (Neurontin) 100 mg PO TID [facility] Last Admin: 07/17/17 16:04 Dose: 100 mg Glipizide (Glucotrol Xl) 10 mg PO BID [facility] Last Admin: 07/17/17 16:04 Dose: 10 mg Heparin Sodium (Porcine) (Heparin) 5,000 units SC Q8 [facility] PRN Reason: Protocol Last Admin: 07/18/17 00:10 Dose: 5,000 units Daptomycin 680 mg/ Sodium (Chloride) 100 mls @ 100 mls/hr IV QOTHERDAY [facility] Stop: 07/21/17 09:01 Last Admin: 07/16/17 10:57 Dose: 100 mls/hr Aztreonam 1 gm/ Sodium (Chloride) 100 mls @ 100 mls/hr IVPB Q12 [facility] Last Admin: 07/17/17 21:22 Dose: 100 mls/hr Insulin Human Regular (Humulin R) 0 units SC ACHS [facility] PRN Reason: Protocol Last Admin: 07/17/17 21:23 Dose: Not Given Labetalol HCl (Trandate) 200 mg PO BID [facility] Magnesium Oxide (Mag-Ox) 400 mg PO BID [facility] Last Admin: 07/17/17 16:04 Dose: 400 mg Multivitamins/Minerals (Therapeutic-M Tab) 1 tab PO DAILY [facility] Last Admin: 07/17/17 08:30 Dose: 1 tab Mupirocin (Bactroban Ointment) 1 applic TOP BID [facility] Last Admin: 07/17/17 16:02 Dose: Not Given Pantoprazole Sodium (Protonix Ec Tab) 40 mg PO DAILY [facility] Last Admin: 07/17/17 08:29 Dose: 40 mg Pentoxifylline (Pentoxil) 400 mg PO BID [facility] Last Admin: 07/17/17 21:29 Dose: 400 mg Vitamin D (Vitamin D 400 Intl Units Tab) 400 intlu PO DAILY [facility] Last Admin: 07/17/17 08:31 Dose: 400 intlu - Labs Labs: 07/18/17 05:00 07/18/17 05:00 - Constitutional Appears: Well, Non-toxic, No Acute Distress - Extremities Exam Additional comments: LE focused exam: Vasc: DP pulses nonpalpable b/l. PT pulses palpable 1/4 b/l. Diffused edema noted to RLE. Skin temperature warm to warm from proximal to distal stump. Neuro: Epicritic and protective sensation grossly diminished b/l Derm: Ulceration noted to lateral aspect of right foot measuring roughly 3.0 cm x 0.8 cm x 0.4 cm with granular base and fibrotic border. Minimal serous drainage present, decreased from yesterday. No malodor, purulence, periwound erythema or other clinical infection noted at this time. 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 No POP noted to ulceration site - Neurological Exam Neurological Exam: Alert, Awake, Oriented x3 - Psychiatric Exam Psychiatric exam: Normal Affect, Normal Mood Assessment and Plan - Assessment and Plan (Free Text) Assessment: 45 year old male with PMH of CKD, OM Right foot, DM II with Neuropathy, bilateral Charcot with right plantar ulceration secondary to DM and Charcot deformity Plan: Patient seen and evaluated at bedside Charts, labs and vitals reviewed; afebrile WBC 8.9 Dressing changed with Mupirocin, betadine, ABD, DSD Continue IV abx per ID LE ultrasound report pending Patient BP still elevated at this time. Will be transferred to TCU once BP is stable Podiatry to continue to follow while in house
[2017-07-18] MEDS: Aztreonam 1 GM in Sodium Chloride 0.9% 100 ML IVPB SCH ×2 (08:55→20:01)
[2017-07-18] MEDS: GlipiZIDE 10 mg SR Tab PO SCH ×2 (08:58→17:07)
[2017-07-18] MEDS: Insulin Regular 100 units/ml SC SCH ×4 (08:59→22:20)
[2017-07-18] MEDS: Magnesium Oxide 400 mg Tab UD PO SCH ×2 (09:00→17:08)
[2017-07-18] MEDS: Pantoprazole 40 mg EC Tab PO SCH (09:10)
[2017-07-18] MEDS: Cholecalciferol 400 Intl Units Tab PO SCH (09:11)
[2017-07-18] MEDS: Multivitamin With Minerals Tab PO SCH (09:11)
--- NOTE | 2017-07-18 13:33 | US ---
PROCEDURE: Duplex ultrasound of the bilateral lower extremity arteries. HISTORY: r/o pvd COMPARISON: None available. TECHNIQUE: Grayscale and duplex Doppler evaluation of the bilateral common femoral, superficial femoral, popliteal, posterior tibial and dorsalis pedis arteries was performed.. FINDINGS: RIGHT LOWER EXTREMITY: RIGHT COMMON FEMORAL ARTERY: Widely patent. Maximal flow velocity of 106.8 cm/s. RIGHT SUPERFICIAL FEMORAL ARTERY: Widely patent. Maximal flow velocity of 70.2 cm/s. RIGHT POPLITEAL ARTERY:Widely patent. Maximal flow velocity of 67.0 cm/s. RIGHT POSTERIOR TIBIAL ARTERY: Widely patent. Maximal flow velocity of 58.8 cm/s. RIGHT DORSALIS PEDIS ARTERY: Obscured by overlying bandages. LEFT LOWER EXTREMITY: LEFT COMMON FEMORAL ARTERY: Widely patent. Maximal flow velocity of 133.0 cm/s. LEFT SUPERFICIAL FEMORAL ARTERY: Widely patent. Maximal flow velocity of 84.4 cm/s. LEFT POPLITEAL ARTERY:Widely patent. Maximal flow velocity of 58.9 cm/s. LEFT POSTERIOR TIBIAL ARTERY: Widely patent. Maximal flow velocity of 15.4 cm/s. LEFT DORSALIS PEDIS ARTERY: Widely patent. Maximal flow velocity of 50.1 cm/s. OTHER FINDINGS: None. IMPRESSION: Peripheral arterial disease at and below the popliteal arteries without evidence of critical stenoses or occlusions.
[2017-07-18 14:15] LABS: URIC ACID 8.6 mg/Dl (3.5-8.5)
--- NOTE | 2017-07-18 14:58 | CP.PCM.PN ---
Subjective - Date & Time of Evaluation Date of Evaluation: 07/18/17 Time of Evaluation: 07:35 - Subjective Subjective: patient seen and examined with attending Pt feeeling well this morning Afebrile, but still with elevated BP Had an uneventful night Denies chills, muscle spasm, CP, SOB, N/V Objective - Vital Signs/Intake and Output Vital Signs (last 24 hours): Temp Pulse Resp BP Pulse Ox 97.4 F L 63 20 145/95 H 100 07/18/17 13:56 07/18/17 13:56 07/18/17 13:56 07/18/17 13:56 07/18/17 13:56 - Medications Medications: Current Medications Amlodipine Besylate (Norvasc) 10 mg PO DAILY [facility] Last Admin: 07/18/17 09:01 Dose: 10 mg Bupropion HCl (Wellbutrin) 75 mg PO BID [facility] Last Admin: 07/18/17 09:12 Dose: 75 mg Calcitriol (Rocaltrol) 0.25 mcg PO DAILY [facility] Last Admin: 07/18/17 09:11 Dose: 0.25 mcg Calcium Acetate (Phoslo) 667 mg PO WM@0900,1300,1700 [facility] Last Admin: 07/18/17 13:12 Dose: 667 mg Clonidine HCl (Catapres) 0.3 mg PO Q8 [facility] Last Admin: 07/18/17 08:56 Dose: 0.3 mg Ferrous Sulfate (Feosol) 325 mg PO BID [facility] Last Admin: 07/18/17 08:57 Dose: 325 mg Folic Acid (Folic Acid) 1 mg PO DAILY [facility] Last Admin: 07/18/17 08:58 Dose: 1 mg Furosemide (Lasix) 40 mg PO DAILY [facility] Last Admin: 07/18/17 09:00 Dose: 40 mg Furosemide (Lasix) 20 mg PO DAILY@1700 [facility] Last Admin: 07/17/17 17:34 Dose: 20 mg Gabapentin (Neurontin) 100 mg PO TID [facility] Last Admin: 07/18/17 13:11 Dose: 100 mg Glipizide (Glucotrol Xl) 10 mg PO BID [facility] Last Admin: 07/18/17 08:58 Dose: 10 mg Heparin Sodium (Porcine) (Heparin) 5,000 units SC Q8 [facility] PRN Reason: Protocol Last Admin: 07/18/17 08:58 Dose: 5,000 units Daptomycin 680 mg/ Sodium (Chloride) 100 mls @ 100 mls/hr IV QOTHERDAY [facility] Stop: 07/21/17 09:01 Last Admin: 07/18/17 10:00 Dose: 100 mls/hr Aztreonam 1 gm/ Sodium (Chloride) 100 mls @ 100 mls/hr IVPB Q12 [facility] Last Admin: 07/18/17 08:55 Dose: 100 mls/hr Insulin Human Regular (Humulin R) 0 units SC ACHS [facility] PRN Reason: Protocol Last Admin: 07/18/17 12:30 Dose: 3 u Labetalol HCl (Trandate) 200 mg PO BID [facility] Last Admin: 07/18/17 09:11 Dose: 200 mg Magnesium Oxide (Mag-Ox) 400 mg PO BID [facility] Last Admin: 07/18/17 09:00 Dose: 400 mg Multivitamins/Minerals (Therapeutic-M Tab) 1 tab PO DAILY [facility] Last Admin: 07/18/17 09:11 Dose: 1 tab Mupirocin (Bactroban Ointment) 1 applic TOP BID [facility] Last Admin: 07/18/17 08:56 Dose: 1 appl Pantoprazole Sodium (Protonix Ec Tab) 40 mg PO DAILY [facility] Last Admin: 07/18/17 09:10 Dose: 40 mg Pentoxifylline (Pentoxil) 400 mg PO BID [facility] Last Admin: 07/18/17 09:01 Dose: 400 mg Sodium Bicarbonate (Sodium Bicarbonate Tab) 650 mg PO BID [facility] Last Admin: 07/18/17 13:01 Dose: 650 mg Vitamin D (Vitamin D 400 Intl Units Tab) 400 intlu PO DAILY [facility] Last Admin: 07/18/17 09:11 Dose: 400 intlu - Labs Labs: 07/18/17 05:00 07/18/17 05:00 - Additional Findings Additional findings: Constitutional Appears: No Acute Distress - ENT Exam ENT Exam: Mucous Membranes Moist - Respiratory Exam Respiratory Exam: Clear to Ausculation Bilateral, NORMAL BREATHING PATTERN - Cardiovascular Exam Cardiovascular Exam: REGULAR RHYTHM, +S1, +S2 - GI/Abdominal Exam GI & Abdominal Exam: Soft, Normal Bowel Sounds. absent: Guarding, Rigid, Tenderness - Extremities Exam Extremities Exam: Normal Inspection. absent: Calf Tenderness Additional comments: edema in lower extremities, right foot covered by clean dressing - Neurological Exam Neurological Exam: Alert, Awake, Oriented x3 Assessment and Plan (1) Osteomyelitis of right foot Assessment & Plan: c/w Daptomacyn IV and Aztreonam IV as per ID recommendations f/u ID rec for Abx therapy Status: Acute (2) Diabetic infection of right foot Assessment & Plan: c/w wound care by podiatry team f/u recommendations podiatry do not plan any surgical intervention at this time Status: Acute (3) Hypocalcemia Assessment & Plan: c/w calcium supplementation f/u Calcium Status: Acute (4) Hypertension Assessment & Plan: uncontrolled DC Atenolol and Coreg start labetalol 200 mg BID c/w Clonidine 0.3 TID f/u BP Status: Chronic (5) Diabetes mellitus type 2 in obese Assessment & Plan: c/w accucheck changed from Low dose sliding scale regular insulin to Medium dose based on pt' s weight f/u BSL Status: Chronic (6) Chronic kidney disease, stage 4 (severe) Assessment & Plan: f/u vein mapping official report c/w furosemide 40 mg PO AM , and 20 mg PM As per Nephro no dialysis at this time f/u Nephrology recommendations Status: Chronic
--- NOTE | 2017-07-18 23:59 | PN ---
DATE: 07/18/2017 NEPHROLOGY FOLLOWUP NOTE SUBJECTIVE: A 46-year-old male with past medical history of hypertension, diabetes and CKD stage IV/V, admitted with right foot infection, chronic osteomyelitis, nephrology following for CKD management. The patient denies any shortness of breath. Denies eating any outside food during current hospitalization. PHYSICAL EXAMINATION: GENERAL: In no distress. Communicating coherently in full sentences. VITAL SIGNS: This morning, blood pressure 166/85, heart rate 89, respirations 20, temperature 97.7, and O2 sat 99% on room air. HEENT: Moist mucous membranes, nonicteric. RESPIRATORY: Mild basal rales, otherwise, clear to auscultation bilaterally. No rhonchi. No wheezes. CARDIOVASCULAR: S1 and S2 normal. No murmurs, no gallops, no rubs. GI: Abdomen soft, nontender and nondistended. EXTREMITIES: Mild bilateral lower leg edema, right greater than left. PSYCHIATRIC: Normal mood, normal affect. SKIN: Warmth to touch. No cyanosis. LABORATORY DATA: This morning, CBC, WBC 8.9, hemoglobin 9.8, hematocrit 29.6, platelets 265. Chemistry panel; sodium 136, potassium 5.6, chloride 105, bicarb 21, BUN 51, creatinine 3.6, glucose 156, calcium 7.9, uric acid 8.6, CK level 326. ASSESSMENT AND PLAN: 1. Chronic kidney disease stage IV. The patient with progressive renal insufficiency, most likely secondary to diabetic nephropathy. The patient again counseled today on need for adequate followup for dialysis planning which he will likely need within the next 6 months to 1 year. Counseled on need for AV fistula creation as an outpatient. Counseled on need for transplant referral as well. Plan, avoid any nephrotoxic agents. We will continue to follow as an outpatient. 2. Hyperkalemia, relatively mild in the setting of advanced chronic kidney disease. We will add sodium bicarbonate which will help shift potassium in the long run; otherwise, agree with Kayexalate p.r.n. Heparin may be contributing to hyperkalemia, and therefore, hyperkalemia may improve upon discharge. For now, continue with Kayexalate p.r.n. 3. Hypertension, blood pressure improved with a low dose increased by primary attending. Continue current medications. Continue Lasix 40 mg in a.m. and 20 mg in p.m. 4. Chronic kidney disease - mineral bone disease, hypercalcemia improved. Continue calcitriol 0.25 mcg daily. Continue PhosLo 2 tablets with meals. 5. Anemia secondary to chronic kidney disease on chronic disease. We will benefit from EPO once blood pressures have been stabilized. 6. Hyperuricemia. The patient may benefit from lowering drug which can possibly help slow progression of chronic kidney disease. Geovanny Ward MD
[2017-07-19] MEDS: Insulin Regular 100 units/ml SC SCH ×3 (06:34→16:50)
[2017-07-19] MEDS: Aztreonam 1 GM in Sodium Chloride 0.9% 100 ML IVPB SCH (08:41)
[2017-07-19] MEDS: Magnesium Oxide 400 mg Tab UD PO SCH ×2 (08:44→16:08)
[2017-07-19] MEDS: Multivitamin With Minerals Tab PO SCH (08:44)
[2017-07-19] MEDS: Pantoprazole 40 mg EC Tab PO SCH (08:45)
[2017-07-19] MEDS: Cholecalciferol 400 Intl Units Tab PO SCH (08:45)
[2017-07-19] MEDS: GlipiZIDE 10 mg SR Tab PO SCH ×2 (08:47→16:10)
[2017-07-19 08:48] LABS: MEAN CELL VOLUME 76.7 fl (80.0-94.0); MEAN CORPUSCULAR HGB CONC 32.6 g/dL (33.0-37.0); RBC 3.99 Mil/uL (4.40-5.90); RED CELL DISTRIBUTION WIDTH 14.3 % (11.5-14.5); WHITE BLOOD COUNT 8.6 K/uL (4.8-10.8)
[2017-07-19 09:02] LABS: CALCIUM 8.3 mg/dL (8.4-10.2)
--- NOTE | 2017-07-19 11:51 | CP.PCM.PN ---
Subjective - Date & Time of Evaluation Date of Evaluation: 07/19/17 Time of Evaluation: 11:48 - Subjective Subjective: Podiatry- Dr. Medina 45 year old male with PMH of CKD, OM Right foot, DM II with Neuropathy, bilateral Charcot seen at bedside for right plantar foot ulceration secondary to DM and Charcot deformity with Chopart's amputation. Patient seen laying comfortably at bedside, AA0x3, and in NAD. Dressing is clean and intact with no strikethrough noted at this time. Denies acute events overnight. Denies pain to ulceration. Denies any further pedal complaints at this time. Denies N/V/F/C/CP/ SOB Objective - Vital Signs/Intake and Output Vital Signs (last 24 hours): Temp Pulse Resp BP Pulse Ox 97.7 F 64 20 174/90 H 99 07/19/17 08:00 07/19/17 09:00 07/19/17 08:00 07/19/17 08:46 07/19/17 08:00 - Medications Medications: Current Medications Allopurinol (Zyloprim) 100 mg PO DAILY [facility] Amlodipine Besylate (Norvasc) 10 mg PO DAILY [facility] Last Admin: 07/19/17 08:46 Dose: 10 mg Bupropion HCl (Wellbutrin) 75 mg PO BID [facility] Last Admin: 07/19/17 08:45 Dose: 75 mg Calcitriol (Rocaltrol) 0.25 mcg PO DAILY [facility] Last Admin: 07/19/17 08:45 Dose: 0.25 mcg Calcium Acetate (Phoslo) 667 mg PO WM@0900,1300,1700 [facility] Last Admin: 07/19/17 08:43 Dose: 667 mg Clonidine HCl (Catapres) 0.3 mg PO Q8 [facility] Last Admin: 07/19/17 08:43 Dose: 0.3 mg Ferrous Sulfate (Feosol) 325 mg PO BID [facility] Last Admin: 07/19/17 08:47 Dose: 325 mg Folic Acid (Folic Acid) 1 mg PO DAILY [facility] Last Admin: 07/19/17 08:47 Dose: 1 mg Furosemide (Lasix) 40 mg PO DAILY [facility] Last Admin: 07/19/17 08:44 Dose: 40 mg Furosemide (Lasix) 20 mg PO DAILY@1700 [facility] Last Admin: 07/18/17 17:08 Dose: 20 mg Gabapentin (Neurontin) 100 mg PO TID [facility] Last Admin: 07/19/17 08:46 Dose: 100 mg Glipizide (Glucotrol Xl) 10 mg PO BID [facility] Last Admin: 07/19/17 08:47 Dose: 10 mg Heparin Sodium (Porcine) (Heparin) 5,000 units SC Q8 [facility] PRN Reason: Protocol Last Admin: 07/19/17 08:44 Dose: 5,000 units Daptomycin 680 mg/ Sodium (Chloride) 100 mls @ 100 mls/hr IV QOTHERDAY [facility] Stop: 07/21/17 09:01 Last Admin: 07/18/17 10:00 Dose: 100 mls/hr Aztreonam 1 gm/ Sodium (Chloride) 100 mls @ 100 mls/hr IVPB Q12 [facility] Last Admin: 07/19/17 08:41 Dose: 100 mls/hr Insulin Human Regular (Humulin R) 0 units SC ACHS [facility] PRN Reason: Protocol Last Admin: 07/19/17 06:34 Dose: 3 unit Labetalol HCl (Trandate) 200 mg PO BID [facility] Last Admin: 07/19/17 08:45 Dose: 200 mg Magnesium Oxide (Mag-Ox) 400 mg PO BID [facility] Last Admin: 07/19/17 08:44 Dose: 400 mg Multivitamins/Minerals (Therapeutic-M Tab) 1 tab PO DAILY [facility] Last Admin: 07/19/17 08:44 Dose: 1 tab Mupirocin (Bactroban Ointment) 1 applic TOP BID [facility] Last Admin: 07/19/17 11:26 Dose: Not Given Pantoprazole Sodium (Protonix Ec Tab) 40 mg PO DAILY [facility] Last Admin: 07/19/17 08:45 Dose: 40 mg Pentoxifylline (Pentoxil) 400 mg PO BID [facility] Last Admin: 07/19/17 08:43 Dose: 400 mg Sodium Bicarbonate (Sodium Bicarbonate Tab) 650 mg PO BID [facility] Last Admin: 07/19/17 08:43 Dose: 650 mg Vitamin D (Vitamin D 400 Intl Units Tab) 400 intlu PO DAILY [facility] Last Admin: 07/19/17 08:45 Dose: 400 intlu - Labs Labs: 07/19/17 08:39 07/19/17 08:39 - Constitutional Appears: Well, Non-toxic, No Acute Distress - Extremities Exam Additional comments: LE focused exam: Vasc: DP pulses nonpalpable b/l. PT pulses palpable 1/4 b/l. Diffused edema noted to RLE. Skin temperature warm to warm from proximal to distal stump. Neuro: Epicritic and protective sensation grossly diminished b/l Derm: Ulceration noted to lateral aspect of right foot measuring roughly 3.0 cm x 0.8 cm x 0.4 cm with granular base and fibrotic border with slight maceration. No serous drainage noted today. No malodor, purulence, periwound erythema or other clinical infection noted at this time. 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 No POP noted to ulceration site - Neurological Exam Neurological Exam: Alert, Awake, Oriented x3 - Psychiatric Exam Psychiatric exam: Normal Affect, Normal Mood Assessment and Plan - Assessment and Plan (Free Text) Assessment: 45 year old male with PMH of CKD, OM Right foot, DM II with Neuropathy, bilateral Charcot with right plantar ulceration secondary to DM and Charcot deformity Plan: Patient seen and evaluated at bedside Charts, labs and vitals reviewed; afebrile WBC 8.6 Dressing changed with betadine, ABD, DSD Continue IV abx per ID LE ultrasound report: PAD at and below the popliteal arteries w/o evidence of critical stenosis or occlusions Patient BP still elevated at this time. Will be transferred to TCU once BP is stable Podiatry to continue to follow while in house
--- NOTE | 2017-07-19 13:16 | CP.PCM.PN ---
Subjective - Date & Time of Evaluation Date of Evaluation: 07/19/17 Time of Evaluation: 10:00 - Subjective Subjective: improving Objective - Vital Signs/Intake and Output Vital Signs (last 24 hours): Temp Pulse Resp BP Pulse Ox 97.7 F 78 18 164/93 H 97 07/19/17 12:00 07/19/17 12:00 07/19/17 12:00 07/19/17 12:00 07/19/17 12:00 - Medications Medications: Current Medications Allopurinol (Zyloprim) 100 mg PO DAILY [facility] Last Admin: 07/19/17 11:57 Dose: 100 mg Amlodipine Besylate (Norvasc) 10 mg PO DAILY [facility] Last Admin: 07/19/17 08:46 Dose: 10 mg Bupropion HCl (Wellbutrin) 75 mg PO BID [facility] Last Admin: 07/19/17 08:45 Dose: 75 mg Calcitriol (Rocaltrol) 0.25 mcg PO DAILY [facility] Last Admin: 07/19/17 08:45 Dose: 0.25 mcg Calcium Acetate (Phoslo) 667 mg PO WM@0900,1300,1700 [facility] Last Admin: 07/19/17 12:59 Dose: 667 mg Clonidine HCl (Catapres) 0.3 mg PO Q8 [facility] Last Admin: 07/19/17 08:43 Dose: 0.3 mg Ferrous Sulfate (Feosol) 325 mg PO BID [facility] Last Admin: 07/19/17 08:47 Dose: 325 mg Folic Acid (Folic Acid) 1 mg PO DAILY [facility] Last Admin: 07/19/17 08:47 Dose: 1 mg Furosemide (Lasix) 40 mg PO DAILY [facility] Last Admin: 07/19/17 08:44 Dose: 40 mg Furosemide (Lasix) 20 mg PO DAILY@1700 [facility] Last Admin: 07/18/17 17:08 Dose: 20 mg Gabapentin (Neurontin) 100 mg PO TID [facility] Last Admin: 07/19/17 12:59 Dose: 100 mg Glipizide (Glucotrol Xl) 10 mg PO BID [facility] Last Admin: 07/19/17 08:47 Dose: 10 mg Heparin Sodium (Porcine) (Heparin) 5,000 units SC Q8 [facility] PRN Reason: Protocol Last Admin: 07/19/17 08:44 Dose: 5,000 units Daptomycin 680 mg/ Sodium (Chloride) 100 mls @ 100 mls/hr IV QOTHERDAY [facility] Stop: 07/21/17 09:01 Last Admin: 07/18/17 10:00 Dose: 100 mls/hr Aztreonam 1 gm/ Sodium (Chloride) 100 mls @ 100 mls/hr IVPB Q12 [facility] Last Admin: 07/19/17 08:41 Dose: 100 mls/hr Insulin Human Regular (Humulin R) 0 units SC ACHS [facility] PRN Reason: Protocol Last Admin: 07/19/17 12:58 Dose: 2 unit Labetalol HCl (Trandate) 200 mg PO BID [facility] Last Admin: 07/19/17 08:45 Dose: 200 mg Magnesium Oxide (Mag-Ox) 400 mg PO BID [facility] Last Admin: 07/19/17 08:44 Dose: 400 mg Multivitamins/Minerals (Therapeutic-M Tab) 1 tab PO DAILY [facility] Last Admin: 07/19/17 08:44 Dose: 1 tab Mupirocin (Bactroban Ointment) 1 applic TOP BID [facility] Last Admin: 07/19/17 11:26 Dose: Not Given Pantoprazole Sodium (Protonix Ec Tab) 40 mg PO DAILY [facility] Last Admin: 07/19/17 08:45 Dose: 40 mg Pentoxifylline (Pentoxil) 400 mg PO BID [facility] Last Admin: 07/19/17 08:43 Dose: 400 mg Sodium Bicarbonate (Sodium Bicarbonate Tab) 650 mg PO BID [facility] Last Admin: 07/19/17 08:43 Dose: 650 mg Vitamin D (Vitamin D 400 Intl Units Tab) 400 intlu PO DAILY [facility] Last Admin: 07/19/17 08:45 Dose: 400 intlu - Labs Labs: 07/19/17 08:39 07/19/17 08:39 - Constitutional Appears: Non-toxic, Chronically Ill - Head Exam Head Exam: NORMOCEPHALIC - Eye Exam Eye Exam: PERRL - ENT Exam ENT Exam: Mucous Membranes Dry - Neck Exam Neck Exam: absent: Lymphadenopathy - Respiratory Exam Respiratory Exam: Decreased Breath Sounds, Clear to Ausculation Bilateral - Cardiovascular Exam Cardiovascular Exam: REGULAR RHYTHM - GI/Abdominal Exam GI & Abdominal Exam: Distended, Soft Assessment and Plan (1) Cellulitis of right foot Status: Acute (2) Diabetic foot infection Status: Acute (3) Diabetic foot ulcer Status: Acute (4) ESRD (end stage renal disease) on dialysis Status: Acute
--- NOTE | 2017-07-19 13:45 | PN ---
SUBJECTIVE: The patient seen and examined. Interim events noted. Consults noted and appreciated. Podiatry and ID followup and intervention noted and appreciated. The patient remains in progressive care unit. The patient has no specific complaint, no chest pain or shortness of breath. Leg pain is adequately controlled. PHYSICAL EXAMINATION: GENERAL: The patient is in no acute distress. VITAL SIGNS: Essentially stable. HEART: S1 and S2 normal and regular. LUNGS: Good bilateral air entry. ABDOMEN: Soft and nontender. EXTREMITIES: No edema. No calf swelling. No tenderness. The patient is status post amputation. Both feet under surgical dressing. No ____. CENTRAL NERVOUS SYSTEM: Essentially unchanged. ASSESSMENT AND PLAN: Overall the patient is medically stable. Telemetry monitoring did not reveal any significant arrhythmia. Available other diagnostic data reviewed. PLAN: As ordered. Case and plan discussed with the patient. Joel Lake MD
[2017-07-19 16:21] VITALS: RESP 20
[2017-07-19 19:07] VITALS: BP 182/102; PULSE 70; TEMP 97.2; O2SAT 100
[2017-07-19] MEDS ORDERED: Sod Polystyrene Sulf 15 gm/60 ml Oral Susp PO ONE (21:19)
--- NOTE | 2017-07-19 21:23 | CP.PCM.PN ---
Subjective - Date & Time of Evaluation Date of Evaluation: 07/19/17 Time of Evaluation: 21:30 - Subjective Subjective: Patient denies any shortness of breath; Objective - Vital Signs/Intake and Output Vital Signs (last 24 hours): Temp Pulse Resp BP Pulse Ox 97.2 F L 70 20 182/102 H 100 07/19/17 19:06 07/19/17 19:06 07/19/17 19:06 07/19/17 19:06 07/19/17 19:06 Intake and Output: 07/19/17 07/20/17 18:59 06:59 Intake Total 1103 Output Total 1500 Balance -397 - Medications Medications: Current Medications Furosemide (Lasix) 40 mg IVP STAT STA Stop: 07/19/17 21:20 Sodium Polystyrene Sulfonate (Kayexalate Oral Susp) 15 gm PO ONCE ONE Stop: 07/19/17 21:20 - Labs Labs: 07/19/17 08:39 07/19/17 08:39 - Constitutional Appears: Well, No Acute Distress - Head Exam Head Exam: NORMAL INSPECTION - Eye Exam Eye Exam: Normal appearance - ENT Exam ENT Exam: Mucous Membranes Moist - Respiratory Exam Respiratory Exam: Clear to Ausculation Bilateral, NORMAL BREATHING PATTERN - Cardiovascular Exam Cardiovascular Exam: REGULAR RHYTHM, +S1, +S2 - GI/Abdominal Exam GI & Abdominal Exam: Soft. absent: Distended, Tenderness - Extremities Exam Additional comments: Mild lower leg edema mainly on R; - Neurological Exam Neurological Exam: Alert, Awake - Psychiatric Exam Psychiatric exam: Normal Affect, Normal Mood - Skin Skin Exam: Normal Color, Warm. absent: Cyanosis Assessment and Plan (1) CKD (chronic kidney disease) Assessment & Plan: Relatively stable serum creatinine; fluctuations will occur with diuretics; otherwise will plan for outpatient AVF creation; continue to avoid nephrotoxic meds including all NSAIDS; Status: Chronic (2) Chronic kidney disease-mineral and bone disorder Assessment & Plan: Hypercalcemia improved; continue calcitriol 0.25 mcg daily; will re-check PTH level, may need to reduce calcitriol frequency to avoid over-suppressing PTH; continue phoslo 1 tab; Status: Acute (3) Hypertensive CKD (chronic kidney disease) Assessment & Plan: BP still uncontrolled on labetalol 200 mg bid, amlodipine 10 mg daily and lasix 40/20; starting hydralazine 25 mg q6h (will decrease frequency once BP better controlled); Status: Acute (4) Anemia Status: Chronic (5) Osteomyelitis of right foot Status: Suspected (6) Hyperkalemia Assessment & Plan: Worsening; giving kayexalate and lasix 20 mg IVP this evening; may need to start florinef although this can worsen htn/volume status; otherwise will require daily kayexalate (may improve once discharged and off heparin); Status: Acute
[2017-07-20 08:07] LABS: ALB/GLOB RATIO 0.9 (1.0-2.1); ALBUMIN 3.6 g/dL (3.5-5.0); CALCIUM 8.7 mg/dL (8.4-10.2); MAGNESIUM 1.5 MG/DL (1.6-2.3)
[2017-07-20 08:11] LABS: BASO # 0.1 K/uL (0.0-0.2); BASO % 0.7 % (0.0-2.0); EOS # 0.4 K/uL (0.0-0.7); EOS % 3.7 % (0.0-4.0); HEMOGLOBIN 9.7 g/dL (12.0-18.0); LYMPH # 2.1 K/uL (1.0-4.3); LYMPH % 21.5 % (20.0-40.0); MEAN CELL VOLUME 77.1 fl (80.0-94.0); MEAN CORPUSCULAR HEMOGLOBIN 24.8 pg (27.0-31.0); MEAN CORPUSCULAR HGB CONC 32.2 g/dL (33.0-37.0); MEAN PLATELET VOLUME 8.2 fl (7.2-11.7); MONO # 0.6 K/uL (0.0-0.8); MONO % 5.7 % (0.0-10.0); NEUT # 6.7 K/uL (1.8-7.0); NEUT % 68.4 % (50.0-75.0); NRBC % 0.1 % (0.0-0.0); RBC 3.9 Mil/uL (4.40-5.90); WHITE BLOOD COUNT 9.8 K/uL (4.8-10.8)
[2017-07-20] MEDS ORDERED: Sod Polystyrene Sulf 15 gm/60 ml Oral Susp PO STA (08:27)
[2017-07-20] MEDS ORDERED: Dextrose 50% SYRINGE Inj (50 ml) IVP STA (08:29)
[2017-07-20] MEDS ORDERED: Sodium Chloride 0.9% 1,000 ML IV SCH (08:30)
[2017-07-20] MEDS ORDERED: Insulin Regular 100 units/ml IVP STA (08:30)
[2017-07-20] MEDS ORDERED: Albuterol 0.083% Inhal Sol (2.5 mg/3 mL) UD INH SCH (08:45)
== END 2017-07-19 21:18 | DRG 565 ==
LOC: H.ER 11:58 → H.ERHOLD 16:08 → H.TEL 17:37
PROVIDERS: ADMIT Internal Medicine; ATTEND Internal Medicine
DX: T87.43 Infection of amputation stump, right lower extremity (principal); M86.171 Other acute osteomyelitis, right ankle and foot; I12.0 Hypertensive chronic kidney disease with stage 5 chronic kidney disease or end stage renal disease; L03.115 Cellulitis of right lower limb; N18.5 Chronic kidney disease, stage 5; Z68.41 Body mass index [BMI] 40.0-44.9, adult; N25.81 Secondary hyperparathyroidism of renal origin; E11.21 Type 2 diabetes mellitus with diabetic nephropathy; E11.40 Type 2 diabetes mellitus with diabetic neuropathy, unspecified; E11.621 Type 2 diabetes mellitus with foot ulcer; E11.628 Type 2 diabetes mellitus with other skin complications; E11.69 Type 2 diabetes mellitus with other specified complication; E83.51 Hypocalcemia; E11.22 Type 2 diabetes mellitus with diabetic chronic kidney disease; L97.519 Non-pressure chronic ulcer of other part of right foot with unspecified severity; E11.610 Type 2 diabetes mellitus with diabetic neuropathic arthropathy; D63.1 Anemia in chronic kidney disease; B96.20 Unspecified Escherichia coli [E. coli] as the cause of diseases classified elsewhere; B95.1 Streptococcus, group B, as the cause of diseases classified elsewhere; Z99.2 Dependence on renal dialysis; E11.65 Type 2 diabetes mellitus with hyperglycemia; E66.01 Morbid (severe) obesity due to excess calories; E87.5 Hyperkalemia; E83.42 Hypomagnesemia; E78.5 Hyperlipidemia, unspecified; E78.00 Pure hypercholesterolemia, unspecified; I73.9 Peripheral vascular disease, unspecified; Z89.431 Acquired absence of right foot; Z88.0 Allergy status to penicillin; Z87.891 Personal history of nicotine dependence

== ENCOUNTER 2017-07-19 15:59 | Inpatient (IN) | payer OTHER ==
[2017-07-19] MEDS ORDERED: Sod Polystyrene Sulf 15 gm/60 ml Oral Susp PO ONE (22:25)
[2017-07-19] MEDS ORDERED: Patient's Own Med (Aztreonam 1 Gm In Ns 100ml [Azactam 1 Gm] 1 GM) IV SCH (22:45)
[2017-07-19] MEDS: AZTREONAM IVPB SCH (23:50)
[2017-07-19] MEDS: NS IVPB SCH (23:50)
[2017-07-20 01:05] VITALS: RESP 20
[2017-07-20] MEDS: Insulin Regular 100 units/ml SC SCH ×4 (06:52→22:58)
[2017-07-20] MEDS ORDERED: Insulin Regular 100 units/ml IVP STA (08:38)
[2017-07-20] MEDS ORDERED: Sod Polystyrene Sulf 15 gm/60 ml Oral Susp PO STA (08:39)
[2017-07-20] MEDS ORDERED: Dextrose 50% SYRINGE Inj (50 ml) IVP STA (08:39)
[2017-07-20] MEDS ORDERED: Sodium Chloride 0.9% 1,000 ML IV SCH ×2 (08:45→16:20)
[2017-07-20] MEDS ORDERED: ERGOCALCIFEROL 400 UNIT PO SCH (09:00)
[2017-07-20] MEDS ORDERED: MULTIVIT IRON MIN PO SCH (09:00)
[2017-07-20] MEDS ORDERED: FOLIC ACID PO SCH (09:00)
[2017-07-20] MEDS: Albuterol 0.083% Inhal Sol (2.5 mg/3 mL) UD INH SCH ×4 (09:50→10:34)
[2017-07-20] MEDS: Multivitamin With Minerals Tab PO SCH (09:59)
[2017-07-20] MEDS: AZTREONAM IVPB SCH ×2 (10:00→21:21)
[2017-07-20] MEDS: NS IVPB SCH ×2 (10:00→21:21)
[2017-07-20] MEDS: Pantoprazole 40 mg EC Tab PO SCH (10:01)
[2017-07-20] MEDS: Magnesium Oxide 400 mg Tab UD PO SCH ×2 (10:01→17:11)
[2017-07-20] MEDS: Cholecalciferol 400 Intl Units Tab PO SCH (10:01)
[2017-07-20] MEDS: GlipiZIDE 10 mg SR Tab PO SCH ×2 (10:02→17:10)
[2017-07-20 13:12] LABS: CALCIUM 8.7 mg/dL (8.4-10.2)
[2017-07-20 13:16] LABS: POTASSIUM 5.3 MMOL/L (3.6-5.0)
--- NOTE | 2017-07-20 14:45 | CP.PCM.CON ---
History of Present Illness - History of Present Illness History of Present Illness: Podiatry- Dr. 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 Patient seen laying comfortably at bedside, AA0x3, and in NAD. Dressing is clean and intact with no strikethrough noted at this time. Denies acute events overnight. Denies pain to ulceration. Denies any further pedal complaints at this time. Denies N/V/F/C/CP/SOB Past Patient History - Past Medical History & Family History Past Medical History?: Yes - Past Social History Smoking Status: Never Smoked - CARDIAC Hx Congestive Heart Failure: No Hx Hypercholesterolemia: Yes Hx Hypertension: Yes - PULMONARY Hx Chronic Obstructive Pulmonary Disease (COPD): No - NEUROLOGICAL Hx Neurological Disorder: No - HEENT Hx HEENT Problems: Yes - RENAL Hx Chronic Kidney Disease: Yes - ENDOCRINE/METABOLIC Hx Hypothyroidism: No - HEMATOLOGICAL/ONCOLOGICAL Hx AIDS: No Hx Anemia: Yes Hx Human Immunodeficiency Virus (HIV): No - INTEGUMENTARY Hx Dermatological Problems: Yes - MUSCULOSKELETAL/RHEUMATOLOGICAL Hx Arthritis: No Hx Falls: No Hx Rheumatoid Arthritis: No - GASTROINTESTINAL Hx Gastrointestinal Disorders: Yes Hx Nausea: Yes Hx Vomiting: Yes - GENITOURINARY/GYNECOLOGICAL Hx Genitourinary Disorders: No - PSYCHIATRIC Hx Psychophysiologic Disorder: No Hx Substance Use: No - SURGICAL HISTORY Hx Surgeries: Yes Hx Amputation: Yes (s/p tma right foot) - ANESTHESIA Hx Anesthesia: Yes Hx Anesthesia Reactions: No Hx Malignant Hyperthermia: No Has any member of the family had a problem w/ anesthesia?: Yes Meds Allergies/Adverse Reactions: Allergies Allergy/AdvReac Type Severity Reaction Status Date / Time Penicillins Allergy RASH Verified 07/14/17 15:48 - Medications Medications: Current Medications Albuterol Sulfate (Albuterol 0.083% Inhal Betsy (2.5 Mg/3 Ml) Ud) 2.5 mg INH Q15MIN [facility] Stop: 07/23/17 08:46 Last Admin: 07/20/17 10:34 Dose: 2.5 mg Allopurinol (Zyloprim) 100 mg PO DAILY [facility] Last Admin: 07/20/17 09:59 Dose: 100 mg Amlodipine Besylate (Norvasc) 10 mg PO DAILY [facility] Last Admin: 07/20/17 10:04 Dose: 10 mg Bupropion HCl (Wellbutrin) 75 mg PO BID [facility] Last Admin: 07/20/17 09:59 Dose: 75 mg Calcitriol (Rocaltrol) 0.25 mcg PO DAILY [facility] Last Admin: 07/20/17 09:59 Dose: 0.25 mcg Calcium Acetate (Phoslo) 1,334 mg PO WM@0900,1300,1700 [facility] Last Admin: 07/20/17 13:48 Dose: 1,334 mg Clonidine HCl (Catapres) 0.3 mg PO Q8 [facility] Last Admin: 07/20/17 09:59 Dose: 0.3 mg Ferrous Sulfate (Feosol) 325 mg PO BID [facility] Last Admin: 07/20/17 10:03 Dose: 325 mg Folic Acid (Folic Acid) 1 mg PO DAILY [facility] Last Admin: 07/20/17 10:04 Dose: 1 mg Furosemide (Lasix) 20 mg PO DAILY@1700 [facility] Furosemide (Lasix) 40 mg PO DAILY [facility] Last Admin: 07/20/17 10:02 Dose: 40 mg Gabapentin (Neurontin) 100 mg PO TID [facility] Last Admin: 07/20/17 13:48 Dose: 100 mg Glipizide (Glucotrol Xl) 10 mg PO BID [facility] Last Admin: 07/20/17 10:02 Dose: 10 mg Heparin Sodium (Porcine) (Heparin) 5,000 units SC Q8 [facility] PRN Reason: Protocol Last Admin: 07/20/17 09:05 Dose: Not Given Hydralazine HCl (Apresoline) 25 mg PO Q6H [facility] Last Admin: 07/20/17 13:00 Dose: 25 mg Aztreonam 1 gm/ Sodium (Chloride) 100 mls @ 100 mls/hr IVPB Q12 [facility] Last Admin: 07/20/17 10:00 Dose: 100 mls/hr Daptomycin 680 mg/ Sodium (Chloride) 100 mls @ 100 mls/hr IVPB QOD [facility] Stop: 07/21/17 10:01 Sodium Chloride (Sodium Chloride 0.9%) 1,000 mls @ 125 mls/hr IV .Q8H [facility] Stop: 07/21/17 08:40 Last Admin: 07/20/17 10:06 Dose: 125 mls/hr Insulin Human Regular (Humulin R) 0 units SC ACHS [facility] PRN Reason: Protocol Last Admin: 07/20/17 11:20 Dose: 2 units Labetalol HCl (Trandate) 200 mg PO BID [facility] Last Admin: 07/20/17 09:05 Dose: Not Given Magnesium Oxide (Mag-Ox) 400 mg PO BID [facility] Last Admin: 07/20/17 10:01 Dose: 400 mg Multivitamins/Minerals (Therapeutic-M Tab) 1 tab PO DAILY [facility] Last Admin: 07/20/17 09:59 Dose: 1 tab Mupirocin (Bactroban Ointment) 1 applic TOP BID [facility] Last Admin: 07/20/17 09:59 Dose: 1 applic Pantoprazole Sodium (Protonix Ec Tab) 40 mg PO DAILY [facility] Last Admin: 07/20/17 10:01 Dose: 40 mg Pentoxifylline (Pentoxil) 400 mg PO BID [facility] Last Admin: 07/20/17 10:03 Dose: 400 mg Sodium Bicarbonate (Sodium Bicarbonate Tab) 650 mg PO BID [facility] Last Admin: 07/20/17 10:01 Dose: 650 mg Vitamin D (Vitamin D 400 Intl Units Tab) 400 intlu PO DAILY [facility] Last Admin: 07/20/17 10:01 Dose: 400 intlu Physical Exam - Constitutional Appears: Well, Non-toxic, No Acute Distress - Extremities Exam Additional comments: LE focused exam: Vasc: DP pulses nonpalpable b/l. PT pulses palpable 1/4 b/l. Diffused edema noted to RLE. Skin temperature warm to warm from proximal to distal stump. Neuro: Epicritic and protective sensation grossly diminished b/l Derm: Ulceration noted to lateral aspect of right foot measuring roughly 3.0 cm x 0.8 cm x 0.4 cm with granular base and fibrotic border with slight maceration. No serous drainage noted today. No malodor, purulence, periwound erythema or other clinical infection noted at this time. 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 No POP noted to ulceration site - Neurological Exam Neurological exam: Alert, Oriented x3 - Psychiatric Exam Psychiatric exam: Normal Affect, Normal Mood Results - Vital Signs Recent Vital Signs: Last Vital Signs Temp 97.2 F L 07/20/17 08:56 Pulse 80 07/20/17 13:00 Resp 20 07/20/17 08:56 BP 151/88 H 07/20/17 13:56 Pulse Ox 100 07/20/17 08:56 - Labs Result Diagrams: 07/20/17 12:50 Labs: Laboratory Results - last 24 hr 07/20/17 07/20/17 07/20/17 06:45 11:20 12:50 Sodium 138 Potassium 5.3 H Chloride 100 Carbon Dioxide 27 Anion Gap 16 BUN 58 H Creatinine 4.4 H Est GFR ( Amer) 18 Est GFR (Non-Af Amer) 15 POC Glucose (mg/dL) 199 H 170 H Random Glucose 169 H Calcium 8.7 Assessment & Plan - Assessment and Plan (Free Text) Assessment: 45 year old male with PMH of CKD, OM Right foot, DM II with Neuropathy, bilateral Charcot with right plantar ulceration secondary to DM and Charcot deformity Plan: Patient seen and evaluated at bedside with attending Dr. Vasquez present. Charts, labs and vitals reviewed; afebrile WBC 9.8. Dressing changed with hydrogel, ABD, DSD. Ordered Silvadene for use starting tomorrow to area. Continue IV abx per [facility] to continue to follow while in house - Date & Time Date: 07/20/17 Time: 09:00
--- NOTE | 2017-07-20 18:03 | HP ---
TRANSITIONAL CARE NOTE CHIEF COMPLAINT: Completion of medical treatment from medical floor. HISTORY OF PRESENT ILLNESS: This is a 46-year-old male who was admitted to medical floor with osteomyelitis of right foot and needed to complete IV antibiotic treatment for osteomyelitis. The patient was transferred to transitional care unit after initial stabilization in medical floor of acute condition. REVIEW OF SYSTEMS: At this time is negative for headache, dizziness, syncope, loss of consciousness, chest pain, shortness of breath, nausea, vomiting, diarrhea, constipation, any new joint or extremity pain. Review of systems of all other organ system is unremarkable. PAST MEDICAL HISTORY: Significant for diabetes, hypertension, peripheral vascular disease, and obesity. PAST SURGICAL HISTORY: Remarkable to amputation of the right foot. PERSONAL HISTORY: The patient is currently nonsmoker and nondrinker. No substance abuse. MEDICATIONS: The patient is on multiple medications, which is as per reconciliation sheet . ALLERGIES: THE PATIENT IS NOT ALLERGIC TO ANY MEDICATION. FAMILY HISTORY: Noncontributory. PHYSICAL EXAMINATION: GENERAL: The patient is well-built, well-nourished, overweight 46-year-old male in no acute distress. VITAL SIGNS: Temperature afebrile, pulse 68, respiration 18, and blood pressure 136/76. HEENT: Pupils are reacting to light. Normocephalic and atraumatic skull. NECK: No JVD. No thyromegaly. No lymphadenopathy. No nystagmus. HEART: S1 and S2 normal and regular. No significant murmur, gallop, or rub is heard. LUNGS: Shows good bilateral air exchange. No rales or rhonchi. ABDOMEN: Soft and nontender. No organomegaly. No bruit. Bowel sounds are plus. EXTREMITIES: The patient's right foot is under podiatric dressing. No calf swelling or tenderness. No acute ischemia. The patient had open ulcer. CENTRAL NERVOUS SYSTEM: Essentially unchanged. There is no sign of any acute gross focal, motor or sensory neurological deficits. DIAGNOSTIC DATA: Available diagnostic data reviewed. Also aware of hospital admission chart from medical floor. ADMITTING IMPRESSION: Acute osteomyelitis of the right foot, type 2 diabetes with hyperlipidemia, hypertension, obesity. PLAN: As ordered. Case and plan discussed with patient. Joel Lake, MD
--- NOTE | 2017-07-20 23:09 | CP.PCM.CON ---
History of Present Illness - History of Present Illness History of Present Illness: HISTORY OF PRESENT ILLNESS: A 45-year-old male with past medical history of diabetes, with neuropathy, bilateral Charcot foot with right plantar ulceration, previous right foot osteomyelitis, hypertension, and CKD stage IV/V, initially presented with right foot pain and swelling; was admitted for diabetic foot ulcer; discharged to TCU last night; nephrology service being consulted for CKD management; Patient has been told about his CKD status in the past and that he would eventually need dialysis; however, he has not had any outpatient followup and has only seen nephrology consult while admitted in the hospital. Patient's hospitalization has been complicated by hyperkalemia; denies eating any outside foods; given kayexalate last night and had BM; PAST MEDICAL HISTORY: As above. FAMILY HISTORY: . SOCIAL HISTORY: . REVIEW OF SYSTEMS: HEENT: Reports having diabetic changes to eyes. Denies any sore throat or cold like symptoms. RESPIRATORY: Denies any difficulty breathing. CARDIOVASCULAR: Denies any chest pain, palpitations, or dyspnea on exertion. GI: Denies nausea, vomiting, or diarrhea. : Good urinary stream, no difficulty urinating, no dysuria. MUSCULOSKELETAL: Reports bilateral shoulder pain. PSYCHIATRIC: Reports history of depression and insomnia. NEUROLOGIC: Decreased sensation in feet, sensation of burning in feet. EXTREMITIES: Bilateral lower leg edema, right greater than left. SKIN: Denies any itching or rashes. PHYSICAL EXAMINATION GENERAL: No distress, alert and oriented x3. HEENT: Moist mucous membranes. CARDIOPULMONARY: S1 and S2 normal. No murmurs, no gallops, no rubs. RESPIRATORY: Lungs are clear to auscultation bilaterally. No rales, no rhonchi, no wheezes. GI: Abdomen is soft, nontender, nondistended. : No bladder distention. EXTREMITIES: Bilateral lower leg edema, right greater than left. SKIN: Warm. No cyanosis. Good capillary refill. PSYCHIATRIC: Normal mood, normal affect. ASSESSMENT AND PLAN: 1. Hyperkalemia - Has been getting worse despite measures to treat medically; etiology is multifactorial, due to advanced renal insufficiency, worsened by aldosterone resistance in the setting of DM, further exacerbated by being on B- blockers and heparin; -Medical management given with insulin, D50, albuterol, kayexalate, florinef and lasix; -Continuing with florinef 0.1 mg daily and lasix; will have to monitor for volume overload from florinef; -Holding B-anthony and heparin for now; 2. Hypocalcemia. Due to secondary hyperparathyroidism of advanced chronic kidney disease; improved with calcitriol; re-checking PTH level to avoid over- suppression; 3. Chronic kidney disease stage IV/V. Likely secondary to diabetic nephropathy ; serum creatinine relatively stable; vein mapping just done in preparation for AVF/AVG creation, will pursue as outpatient; 4. Anemia, likely secondary to advanced chronic kidney disease. Will benefit from EPO (but once BP controlled); 5. Hypertension. Blood pressure uncontrolled, further worsened with florinef; Currently on amlodipine 10 mg daily and clonidine 0.3 mg q. 8 hours; PO lasix 40 mg in am, 20 mg in pm; hydralazine PO just started, will increase dose as needed; holding B-blockers in setting of worsening hyperkalemia; 6. Diabetic foot infection. The patient currently on daptomycin 680 mg every other day dosed for advanced renal insufficiency; CK mildly elevated but stable , monitor; 7. Pain control. Need to continue to hold all non-steroidal antiinflammatory drugs as this will worsen hypertension control and worsen renal function. Past Patient History - Past Medical History & Family History Past Medical History?: Yes - Past Social History Smoking Status: Never Smoked - CARDIAC Hx Congestive Heart Failure: No Hx Hypercholesterolemia: Yes Hx Hypertension: Yes - PULMONARY Hx Chronic Obstructive Pulmonary Disease (COPD): No - NEUROLOGICAL Hx Neurological Disorder: No - HEENT Hx HEENT Problems: Yes - RENAL Hx Chronic Kidney Disease: Yes - ENDOCRINE/METABOLIC Hx Hypothyroidism: No - HEMATOLOGICAL/ONCOLOGICAL Hx AIDS: No Hx Anemia: Yes Hx Human Immunodeficiency Virus (HIV): No - INTEGUMENTARY Hx Dermatological Problems: Yes - MUSCULOSKELETAL/RHEUMATOLOGICAL Hx Arthritis: No Hx Falls: No Hx Rheumatoid Arthritis: No - GASTROINTESTINAL Hx Gastrointestinal Disorders: Yes Hx Nausea: Yes Hx Vomiting: Yes - GENITOURINARY/GYNECOLOGICAL Hx Genitourinary Disorders: No - PSYCHIATRIC Hx Psychophysiologic Disorder: No Hx Substance Use: No - SURGICAL HISTORY Hx Surgeries: Yes Hx Amputation: Yes (s/p tma right foot) - ANESTHESIA Hx Anesthesia: Yes Hx Anesthesia Reactions: No Hx Malignant Hyperthermia: No Has any member of the family had a problem w/ anesthesia?: Yes Meds Allergies/Adverse Reactions: Allergies Allergy/AdvReac Type Severity Reaction Status Date / Time Penicillins Allergy RASH Verified 07/14/17 15:48 - Medications Medications: Current Medications Albuterol Sulfate (Albuterol 0.083% Inhal Betsy (2.5 Mg/3 Ml) Ud) 2.5 mg INH Q15MIN [facility] Stop: 07/23/17 08:46 Last Admin: 07/20/17 10:34 Dose: 2.5 mg Allopurinol (Zyloprim) 100 mg PO DAILY [facility] Last Admin: 07/20/17 09:59 Dose: 100 mg Amlodipine Besylate (Norvasc) 10 mg PO DAILY [facility] Last Admin: 07/20/17 10:04 Dose: 10 mg Bupropion HCl (Wellbutrin) 75 mg PO BID [facility] Last Admin: 07/20/17 09:59 Dose: 75 mg Calcitriol (Rocaltrol) 0.25 mcg PO DAILY [facility] Last Admin: 07/20/17 09:59 Dose: 0.25 mcg Calcium Acetate (Phoslo) 1,334 mg PO WM@0900,1300,1700 [facility] Last Admin: 07/20/17 17:12 Dose: 1,334 mg Clonidine HCl (Catapres) 0.3 mg PO Q8 [facility] Last Admin: 07/20/17 17:10 Dose: 0.3 mg Ferrous Sulfate (Feosol) 325 mg PO BID [facility] Last Admin: 07/20/17 17:10 Dose: 325 mg Fludrocortisone Acetate (Florinef) 0.1 mg PO DAILY [facility] Folic Acid (Folic Acid) 1 mg PO DAILY [facility] Last Admin: 07/20/17 10:04 Dose: 1 mg Furosemide (Lasix) 20 mg PO DAILY@1700 [facility] Last Admin: 07/20/17 17:11 Dose: 20 mg Furosemide (Lasix) 40 mg PO DAILY [facility] Last Admin: 07/20/17 10:02 Dose: 40 mg Gabapentin (Neurontin) 100 mg PO TID [facility] Last Admin: 07/20/17 17:12 Dose: 100 mg Glipizide (Glucotrol Xl) 10 mg PO BID [facility] Last Admin: 07/20/17 17:10 Dose: 10 mg Heparin Sodium (Porcine) (Heparin) 5,000 units SC Q8 [facility] PRN Reason: Protocol Last Admin: 07/20/17 09:05 Dose: Not Given Hydralazine HCl (Apresoline) 100 mg PO Q6H [facility] Aztreonam 1 gm/ Sodium (Chloride) 100 mls @ 100 mls/hr IVPB Q12 [facility] Last Admin: 07/20/17 21:21 Dose: 100 mls/hr Daptomycin 680 mg/ Sodium (Chloride) 100 mls @ 100 mls/hr IVPB QOD [facility] Stop: 07/21/17 10:01 Last Admin: 07/20/17 17:06 Dose: 100 mls/hr Insulin Human Regular (Humulin R) 0 units SC ACHS [facility] PRN Reason: Protocol Last Admin: 07/20/17 22:58 Dose: Not Given Labetalol HCl (Trandate) 200 mg PO BID [facility] Last Admin: 07/20/17 09:05 Dose: Not Given Magnesium Oxide (Mag-Ox) 400 mg PO BID [facility] Last Admin: 07/20/17 17:11 Dose: 400 mg Multivitamins/Minerals (Therapeutic-M Tab) 1 tab PO DAILY [facility] Last Admin: 07/20/17 09:59 Dose: 1 tab Mupirocin (Bactroban Ointment) 1 applic TOP BID [facility] Last Admin: 07/20/17 17:09 Dose: Not Given Pantoprazole Sodium (Protonix Ec Tab) 40 mg PO DAILY [facility] Last Admin: 07/20/17 10:01 Dose: 40 mg Pentoxifylline (Pentoxil) 400 mg PO BID [facility] Last Admin: 07/20/17 17:12 Dose: 400 mg Sodium Bicarbonate (Sodium Bicarbonate Tab) 650 mg PO BID [facility] Last Admin: 07/20/17 17:12 Dose: 650 mg Vitamin D (Vitamin D 400 Intl Units Tab) 400 intlu PO DAILY [facility] Last Admin: 07/20/17 10:01 Dose: 400 intlu Results - Vital Signs Recent Vital Signs: Last Vital Signs Temp 98.1 F 07/20/17 21:42 Pulse 67 07/20/17 21:42 Resp 20 07/20/17 21:42 BP 185/103 H 07/20/17 22:57 Pulse Ox 99 07/20/17 21:42 - Labs Result Diagrams: 07/20/17 12:50 Labs: Laboratory Results - last 24 hr 07/20/17 07/20/17 07/20/17 06:45 11:20 12:50 Sodium 138 Potassium 5.3 H Chloride 100 Carbon Dioxide 27 Anion Gap 16 BUN 58 H Creatinine 4.4 H Est GFR ( Amer) 18 Est GFR (Non-Af Amer) 15 POC Glucose (mg/dL) 199 H 170 H Random Glucose 169 H Calcium 8.7 07/20/17 07/20/17 17:16 21:10 Sodium Potassium Chloride Carbon Dioxide Anion Gap BUN Creatinine Est GFR ( Amer) Est GFR (Non-Af Amer) POC Glucose (mg/dL) 281 H 265 H Random Glucose Calcium Assessment & Plan - Date & Time Date: 07/20/17 Time: 23:30
[2017-07-21] MEDS: Insulin Regular 100 units/ml SC SCH ×4 (06:55→21:58)
[2017-07-21] MEDS ORDERED: DAPTOmycin 500 mg Inj (Cubicin) IV SCH (09:00)
[2017-07-21 09:19] LABS: HEMATOCRIT 32.1 % (35.0-51.0); MEAN CELL VOLUME 76.6 fl (80.0-94.0); MEAN CORPUSCULAR HEMOGLOBIN 25.2 pg (27.0-31.0); MEAN CORPUSCULAR HGB CONC 32.9 g/dL (33.0-37.0); WHITE BLOOD COUNT 10.9 K/uL (4.8-10.8)
[2017-07-21] MEDS: AZTREONAM IVPB SCH ×2 (09:25→17:10)
[2017-07-21] MEDS: NS IVPB SCH ×2 (09:25→17:10)
[2017-07-21 09:32] LABS: BILIRUBIN,TOTAL 0.4 mg/dl (0.2-1.3); CALCIUM 8.6 mg/dL (8.4-10.2); TOTAL PROTEIN 7.5 G/DL (6.3-8.2)
[2017-07-21] MEDS: GlipiZIDE 10 mg SR Tab PO SCH ×2 (09:34→17:10)
[2017-07-21] MEDS: Pantoprazole 40 mg EC Tab PO SCH (09:34)
[2017-07-21] MEDS: Magnesium Oxide 400 mg Tab UD PO SCH ×2 (09:34→17:10)
[2017-07-21] MEDS: Cholecalciferol 400 Intl Units Tab PO SCH (09:34)
[2017-07-21] MEDS: Multivitamin With Minerals Tab PO SCH (09:34)
[2017-07-21 09:38] LABS: POTASSIUM 5.4 MMOL/L (3.6-5.0)
[2017-07-21] MEDS ORDERED: Sod Polystyrene Sulf 15 gm/60 ml Oral Susp PO ONE (11:37)
--- NOTE | 2017-07-21 11:53 | PN ---
DATE: 07/21/2017 SUBJECTIVE: The patient was seen and examined. Interim events noted. Consults noted and appreciated. Podiatry, nephrology intervention noted and appreciated. The patient remains in transitional care unit. The patient complains of oral pain. The patient had apparently some dental work done and still has sutures in. He was uncomfortable, last night. He was not able to sleep. Denies any specific complaints. No chest pain. No shortness of breath. PHYSICAL EXAMINATION: GENERAL: The patient is in no acute distress. VITAL SIGNS: Stable. HEART: S1 and S2 normal, regular. LUNGS: Good bilateral air exchange. ABDOMEN: Soft and nontender. EXTREMITIES: No edema. No calf swelling or tenderness. No acute ischemia. MATERIALS CLERK: Essentially unchanged. DIAGNOSTIC DATA: Available diagnostic data reviewed. Intraoral exam essentially unremarkable. There is no acute finding in the oral cavity. PLAN: As ordered. Case and plan discussed with patient. Joel Lake MD
--- NOTE | 2017-07-21 12:36 | CP.PCM.PN ---
Subjective - Date & Time of Evaluation Date of Evaluation: 07/21/17 Time of Evaluation: 12:50 - Subjective Subjective: Podiatry- Dr. Medina 45 year old male seen at bedside for right plantar foot ulceration secondary to DM and Charcot deformity with Chopart's amputation. Patient seen laying comfortably at bedside, AA0x3, and in NAD. Dressing is clean and intact with no strikethrough noted at this time. Denies acute events overnight. Denies pain to ulceration. Denies any further pedal complaints at this time. Denies N/V/F/C/CP/ SOB Objective - Vital Signs/Intake and Output Vital Signs (last 24 hours): Temp Pulse Resp BP Pulse Ox 97.0 F L 69 20 140/89 100 07/21/17 08:26 07/21/17 12:14 07/21/17 08:26 07/21/17 12:14 07/21/17 08:26 - Medications Medications: Current Medications Albuterol Sulfate (Albuterol 0.083% Inhal Betsy (2.5 Mg/3 Ml) Ud) 2.5 mg INH Q15MIN [facility] Stop: 07/23/17 08:46 Last Admin: 07/20/17 10:34 Dose: 2.5 mg Allopurinol (Zyloprim) 100 mg PO DAILY [facility] Last Admin: 07/21/17 09:35 Dose: 100 mg Amlodipine Besylate (Norvasc) 10 mg PO DAILY [facility] Last Admin: 07/21/17 09:35 Dose: 10 mg Bupropion HCl (Wellbutrin) 75 mg PO BID [facility] Last Admin: 07/21/17 09:34 Dose: 75 mg Calcitriol (Rocaltrol) 0.25 mcg PO DAILY [facility] Last Admin: 07/21/17 09:33 Dose: 0.25 mcg Calcium Acetate (Phoslo) 1,334 mg PO WM@0900,1300,1700 [facility] Last Admin: 07/21/17 12:14 Dose: 1,334 mg Clonidine HCl (Catapres) 0.3 mg PO Q8 [facility] Last Admin: 07/21/17 10:19 Dose: 0.3 mg Ferrous Sulfate (Feosol) 325 mg PO BID [facility] Last Admin: 07/21/17 09:35 Dose: 325 mg Fludrocortisone Acetate (Florinef) 0.1 mg PO DAILY [facility] Folic Acid (Folic Acid) 1 mg PO DAILY [facility] Last Admin: 07/21/17 09:34 Dose: 1 mg Furosemide (Lasix) 20 mg PO DAILY@1700 [facility] Last Admin: 07/20/17 17:11 Dose: 20 mg Furosemide (Lasix) 40 mg PO DAILY [facility] Last Admin: 07/21/17 09:33 Dose: 40 mg Gabapentin (Neurontin) 100 mg PO TID [facility] Last Admin: 07/21/17 12:14 Dose: 100 mg Glipizide (Glucotrol Xl) 10 mg PO BID [facility] Last Admin: 07/21/17 09:34 Dose: 10 mg Heparin Sodium (Porcine) (Heparin) 5,000 units SC Q8 [facility] PRN Reason: Protocol Last Admin: 07/20/17 09:05 Dose: Not Given Hydralazine HCl (Apresoline) 100 mg PO Q6H [facility] Last Admin: 07/21/17 12:14 Dose: 100 mg Aztreonam 1 gm/ Sodium (Chloride) 100 mls @ 100 mls/hr IVPB Q12@0500,1700 [facility] Insulin Human Regular (Humulin R) 0 units SC ACHS [facility] PRN Reason: Protocol Last Admin: 07/21/17 12:15 Dose: 6 units Labetalol HCl (Trandate) 200 mg PO BID [facility] Last Admin: 07/20/17 09:05 Dose: Not Given Magnesium Oxide (Mag-Ox) 400 mg PO BID [facility] Last Admin: 07/21/17 09:34 Dose: 400 mg Multivitamins/Minerals (Therapeutic-M Tab) 1 tab PO DAILY [facility] Last Admin: 07/21/17 09:34 Dose: 1 tab Mupirocin (Bactroban Ointment) 1 applic TOP BID [facility] Last Admin: 07/21/17 09:35 Dose: 1 applic Pantoprazole Sodium (Protonix Ec Tab) 40 mg PO DAILY [facility] Last Admin: 07/21/17 09:34 Dose: 40 mg Pentoxifylline (Pentoxil) 400 mg PO BID [facility] Last Admin: 07/21/17 09:34 Dose: 400 mg Sodium Bicarbonate (Sodium Bicarbonate Tab) 650 mg PO BID [facility] Last Admin: 07/21/17 09:34 Dose: 650 mg Sodium Polystyrene Sulfonate (Kayexalate Oral Susp) 15 gm PO ONCE ONE Stop: 07/21/17 11:38 Vitamin D (Vitamin D 400 Intl Units Tab) 400 intlu PO DAILY [facility] Last Admin: 07/21/17 09:34 Dose: 400 intlu - Labs Labs: 07/21/17 08:30 07/21/17 08:30 - Constitutional Appears: Well, Non-toxic, No Acute Distress - Extremities Exam Additional comments: LE focused exam: Vasc: DP pulses nonpalpable b/l. PT pulses palpable 1/4 b/l. Diffused edema noted to RLE. Skin temperature warm to warm from proximal to distal stump. Neuro: Epicritic and protective sensation grossly diminished b/l Derm: Ulceration noted to lateral aspect of right foot measuring roughly 3.0 cm x 0.8 cm x 0.4 cm with granular base and fibrotic border with slight maceration. No serous drainage noted today. No malodor, purulence, periwound erythema or other clinical infection noted at this time. 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 No POP noted to ulceration site - Neurological Exam Neurological Exam: Alert, Awake, Oriented x3 Assessment and Plan - Assessment and Plan (Free Text) Assessment: 45 year old male with PMH of CKD, OM Right foot, DM II with Neuropathy, bilateral Charcot with right plantar ulceration secondary to DM and Charcot deformity Plan: Patient seen and evaluated at bedside. Discussed with attending Dr. Vasquez present. Charts, labs and vitals reviewed; afebrile WBC 10.9. Dressing changed with Mupuricin, ABD, DSD. D/C Silvadene for potential use. Continue IV abx per ID. Pt to be full weightbearing to tolerance with use of [place] [facility] to [facility] lower extremity. Podiatry to continue to follow while in house
--- NOTE | 2017-07-21 13:15 | CP.PCM.CON ---
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 Review of Systems - Review of Systems All systems: reviewed and no additional remarkable complaints except - Constitutional Constitutional: As Per HPI - EENT Eyes: absent: As Per HPI, Blind Spots, Blurred Vision, Change in Vision, Decreased Night Vision, Diplopia, Discharge, Dry Eye, Exophthalmos, Floaters, Irritation, Itchy Eyes, Loss of Peripheral Vision, Pain, Photophobia, Requires Corrective Lenses, Sees Flashes, Spots in Vision, Tunnel Vision, Other Visual Disturbances, Loss of Vision, Other Ears: absent: As Per HPI, Decreased Hearing, Ear Discharge, Ear Pain, Tinnitus, Abnormal Hearing, Disequilibrium, Dizziness, Other Nose/Mouth/Throat: absent: As Per HPI, Epistaxis, Nasal Congestion, Nasal Discharge, Nasal Obstruction, Nasal Trauma, Nose Pain, Post Nasal Drip, Sinus Pain, Sinus Pressure, Bleeding Gums, Change in Voice, Dental Pain, Dry Mouth, Dysphagia, Halitosis, Hoarsness, Lip Swelling, Mouth Lesions, Mouth Pain, Odynophagia, Sore Throat, Throat Swelling, Tongue Swelling, Facial Pain, Neck Pain, Neck Mass, Other - Cardiovascular Cardiovascular: absent: As Per HPI, Acrocyanosis, Chest Pain, Chest Pain at Rest , Chest Pain with Activity, Claudication, Diaphoresis, Dyspnea, Dyspnea on Exertion, Edema, Irregular Heart Rhythm, Pain Radiating to Arm/Neck/Jaw, Leg Edema, Leg Ulcers, Lightheadedness, Orthopnea, Palpitations, Paroxysmal Nocturnal Dyspnea, Pedal Edema, Radiating Pain, Rapid Heart Rate, Slow Heart Rate, Syncope, Other - Respiratory Respiratory: absent: As Per HPI, Cough, Dyspnea, Hemoptysis, Dyspnea on Exertion , Wheezing, Snoring, Stridor, Pain on Inspiration, Chest Congestion, Excessive Mucous Production, Change in Mucous Color, Pain with Coughing, Other - Gastrointestinal Gastrointestinal: absent: As Per HPI, Abdominal Pain, Belching, Bloating, Change in Bowel Habits, Change in Stool Character, Coffee Ground Emesis, Constipation, Cramping, Diarrhea, Dyspepsia, Dysphagia, Early Satiety, Excessive Flatus, Fecal Incontinence, Heartburn, Hematemesis, Hematochezia, Loose Stools, Melena, Nausea, Odynophagia, Temesmus, Vomiting, Other - Genitourinary Genitourinary: absent: As Per HPI, Change in Urinary Stream, Difficulty Urinating, Dysuria, Flank Pain, Hematuria, Pyuria, Nocturia, Urinary Incontinence, Urinary Frequency, Urinary Hesitance, Urinary Urgency, Voiding Freq/Small Amts, Freq UTI, Hx Renal/Bladder Calculi, Hx /Renal Surgery, Bladder Distension, Other - Integumentary Integumentary: As Per HPI, Skin Pain, Wounds - Neurological Neurological: As Per HPI - Psychiatric Psychiatric: absent: As Per HPI, Abnormal Sleep Pattern, Anhedonia, Anxiety, Auditory Hallucinations, Behavioral Changes, Change in Appetite, Change in Libido, Confusion, Depression, Difficulty Concentrating, Hallucinations, Homicidal Ideation, Hopelessness, Irritability, Memory Loss, Mood Swings, Panic Attacks, Paranoia, Suicidal Ideation, Visual Hallucinations, Tactile Hallucinations, Other - Endocrine Endocrine: As Per HPI - Hematologic/Lymphatic Hematologic: absent: As Per HPI, Easy Bleeding, Easy Bruising, Lymphadenopathy, Other Past Patient History - Past Medical History & Family History Past Medical History?: Yes - Past Social History Smoking Status: Never Smoked - CARDIAC Hx Congestive Heart Failure: No Hx Hypercholesterolemia: Yes Hx Hypertension: Yes - PULMONARY Hx Chronic Obstructive Pulmonary Disease (COPD): No - NEUROLOGICAL Hx Neurological Disorder: No - HEENT Hx HEENT Problems: Yes - RENAL Hx Chronic Kidney Disease: Yes - ENDOCRINE/METABOLIC Hx Hypothyroidism: No - HEMATOLOGICAL/ONCOLOGICAL Hx AIDS: No Hx Anemia: Yes Hx Human Immunodeficiency Virus (HIV): No - INTEGUMENTARY Hx Dermatological Problems: Yes - MUSCULOSKELETAL/RHEUMATOLOGICAL Hx Arthritis: No Hx Falls: No Hx Rheumatoid Arthritis: No - GASTROINTESTINAL Hx Gastrointestinal Disorders: Yes Hx Nausea: Yes Hx Vomiting: Yes - GENITOURINARY/GYNECOLOGICAL Hx Genitourinary Disorders: No - PSYCHIATRIC Hx Psychophysiologic Disorder: No Hx Substance Use: No - SURGICAL HISTORY Hx Surgeries: Yes Hx Amputation: Yes (s/p tma right foot) - ANESTHESIA Hx Anesthesia: Yes Hx Anesthesia Reactions: No Hx Malignant Hyperthermia: No Has any member of the family had a problem w/ anesthesia?: Yes Meds Allergies/Adverse Reactions: Allergies Allergy/AdvReac Type Severity Reaction Status Date / Time Penicillins Allergy RASH Verified 07/14/17 15:48 - Medications Medications: Current Medications Albuterol Sulfate (Albuterol 0.083% Inhal Betsy (2.5 Mg/3 Ml) Ud) 2.5 mg INH Q15MIN [facility] Stop: 07/23/17 08:46 Last Admin: 07/20/17 10:34 Dose: 2.5 mg Allopurinol (Zyloprim) 100 mg PO DAILY [facility] Last Admin: 07/21/17 09:35 Dose: 100 mg Amlodipine Besylate (Norvasc) 10 mg PO DAILY [facility] Last Admin: 07/21/17 09:35 Dose: 10 mg Bupropion HCl (Wellbutrin) 75 mg PO BID [facility] Last Admin: 07/21/17 09:34 Dose: 75 mg Calcitriol (Rocaltrol) 0.25 mcg PO DAILY [facility] Last Admin: 07/21/17 09:33 Dose: 0.25 mcg Calcium Acetate (Phoslo) 1,334 mg PO WM@0900,1300,1700 [facility] Last Admin: 07/21/17 12:14 Dose: 1,334 mg Clonidine HCl (Catapres) 0.3 mg PO Q8 [facility] Last Admin: 07/21/17 10:19 Dose: 0.3 mg Ferrous Sulfate (Feosol) 325 mg PO BID [facility] Last Admin: 07/21/17 09:35 Dose: 325 mg Fludrocortisone Acetate (Florinef) 0.1 mg PO DAILY [facility] Folic Acid (Folic Acid) 1 mg PO DAILY [facility] Last Admin: 07/21/17 09:34 Dose: 1 mg Furosemide (Lasix) 20 mg PO DAILY@1700 [facility] Last Admin: 07/20/17 17:11 Dose: 20 mg Furosemide (Lasix) 40 mg PO DAILY [facility] Last Admin: 07/21/17 09:33 Dose: 40 mg Gabapentin (Neurontin) 100 mg PO TID [facility] Last Admin: 07/21/17 12:14 Dose: 100 mg Glipizide (Glucotrol Xl) 10 mg PO BID [facility] Last Admin: 07/21/17 09:34 Dose: 10 mg Heparin Sodium (Porcine) (Heparin) 5,000 units SC Q8 [facility] PRN Reason: Protocol Last Admin: 07/20/17 09:05 Dose: Not Given Hydralazine HCl (Apresoline) 100 mg PO Q6H [facility] Last Admin: 07/21/17 12:14 Dose: 100 mg Aztreonam 1 gm/ Sodium (Chloride) 100 mls @ 100 mls/hr IVPB Q12@0500,1700 [facility] Insulin Human Regular (Humulin R) 0 units SC ACHS [facility] PRN Reason: Protocol Last Admin: 07/21/17 12:15 Dose: 6 units Labetalol HCl (Trandate) 200 mg PO BID [facility] Last Admin: 07/20/17 09:05 Dose: Not Given Magnesium Oxide (Mag-Ox) 400 mg PO BID [facility] Last Admin: 07/21/17 09:34 Dose: 400 mg Multivitamins/Minerals (Therapeutic-M Tab) 1 tab PO DAILY [facility] Last Admin: 07/21/17 09:34 Dose: 1 tab Mupirocin (Bactroban Ointment) 1 applic TOP BID [facility] Last Admin: 07/21/17 09:35 Dose: 1 applic Pantoprazole Sodium (Protonix Ec Tab) 40 mg PO DAILY [facility] Last Admin: 07/21/17 09:34 Dose: 40 mg Pentoxifylline (Pentoxil) 400 mg PO BID [facility] Last Admin: 07/21/17 09:34 Dose: 400 mg Sodium Bicarbonate (Sodium Bicarbonate Tab) 650 mg PO BID [facility] Last Admin: 07/21/17 09:34 Dose: 650 mg Vitamin D (Vitamin D 400 Intl Units Tab) 400 intlu PO DAILY [facility] Last Admin: 07/21/17 09:34 Dose: 400 intlu Physical Exam - Constitutional Appears: Non-toxic, Chronically Ill - Head Exam Head Exam: NORMOCEPHALIC - Eye Exam Eye Exam: PERRL. absent: Scleral icterus - ENT Exam ENT Exam: Mucous Membranes Dry, Normal External Ear Exam - Neck Exam Neck exam: Negative for: Lymphadenopathy - Respiratory Exam Respiratory Exam: Decreased Breath Sounds - Cardiovascular Exam Cardiovascular Exam: REGULAR RHYTHM - GI/Abdominal Exam GI & Abdominal Exam: Diminished Bowel Sounds. absent: Rigid - Rectal Exam Rectal Exam: Deferred - Exam Exam: NORMAL INSPECTION - Extremities Exam Additional comments: LE focused exam: Vasc: DP pulses nonpalpable b/l. PT pulses palpable 1/4 b/l. Diffused edema noted to RLE. Skin temperature warm to warm from proximal to distal stump. Neuro: Epicritic and protective sensation grossly diminished b/l Derm: Ulceration noted to lateral aspect of right foot measuring roughly 3.0 cm x 0.8 cm x 0.4 cm with granular base and fibrotic border with slight maceration. No serous drainage noted today. No malodor, purulence, periwound erythema or other clinical infection noted at this time. 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 No POP noted to ulceration site - Back Exam Back exam: absent: CVA tenderness (L), CVA tenderness (R), paraspinal tenderness - Neurological Exam Neurological exam: Alert, CN II-XII Intact, Oriented x3, Reflexes Normal - Psychiatric Exam Psychiatric exam: Normal Mood - Skin Skin Exam: Dry Results - Vital Signs Recent Vital Signs: Last Vital Signs Temp 97.0 F L 07/21/17 08:26 Pulse 69 07/21/17 12:14 Resp 20 07/21/17 08:26 BP 140/89 07/21/17 12:14 Pulse Ox 100 07/21/17 08:26 - Labs Result Diagrams: 07/21/17 08:30 07/21/17 08:30 Labs: Laboratory Results - last 24 hr 07/20/17 07/20/17 07/20/17 12:50 17:16 21:10 WBC RBC Hgb Hct MCV MCH MCHC RDW Plt Count Sodium 138 Potassium 5.3 H Chloride 100 Carbon Dioxide 27 Anion Gap 16 BUN 58 H Creatinine 4.4 H Est GFR ( Amer) 18 Est GFR (Non-Af Amer) 15 POC Glucose (mg/dL) 281 H 265 H Random Glucose 169 H Calcium 8.7 Total Bilirubin AST ALT Alkaline Phosphatase Total Protein Albumin Globulin Albumin/Globulin Ratio 07/21/17 07/21/17 07/21/17 05:23 08:30 08:30 WBC 10.9 H RBC 4.19 L Hgb 10.6 L Hct 32.1 L MCV 76.6 L MCH 25.2 L MCHC 32.9 L RDW 14.0 Plt Count 270 Sodium 136 Potassium 5.4 H Chloride 102 Carbon Dioxide 22 Anion Gap 17 BUN 63 H Creatinine 4.5 H Est GFR ( Amer) 17 Est GFR (Non-Af Amer) 14 POC Glucose (mg/dL) 212 H Random Glucose 197 H Calcium 8.6 Total Bilirubin 0.4 AST 36 ALT 42 Alkaline Phosphatase 213 H Total Protein 7.5 Albumin 3.7 Globulin 3.8 Albumin/Globulin Ratio 1.0 07/21/17 10:43 WBC RBC Hgb Hct MCV MCH MCHC RDW Plt Count Sodium Potassium Chloride Carbon Dioxide Anion Gap BUN Creatinine Est GFR ( Amer) Est GFR (Non-Af Amer) POC Glucose (mg/dL) 302 H Random Glucose Calcium Total Bilirubin AST ALT Alkaline Phosphatase Total Protein Albumin Globulin Albumin/Globulin Ratio Assessment & Plan (1) Cellulitis of right foot Status: Acute Priority: High - Assessment and Plan (Free Text) Plan: cont iv antibiotic and foot care will follow while in house
--- NOTE | 2017-07-21 23:58 | CP.PCM.PN ---
Subjective - Date & Time of Evaluation Date of Evaluation: 07/21/17 Time of Evaluation: 12:30 - Subjective Subjective: Patient reports feeling well; had BM this morning; urinating frequently; Objective - Vital Signs/Intake and Output Vital Signs (last 24 hours): Temp Pulse Resp BP Pulse Ox 97.2 F L 64 20 130/75 99 07/21/17 21:38 07/21/17 21:38 07/21/17 21:38 07/21/17 21:38 07/21/17 21:38 - Medications Medications: Current Medications Acetaminophen (Tylenol 325mg Tab) 650 mg PO Q6 PRN PRN Reason: Pain, moderate (4-7) Last Admin: 07/21/17 21:55 Dose: 650 mg Albuterol Sulfate (Albuterol 0.083% Inhal Betsy (2.5 Mg/3 Ml) Ud) 2.5 mg INH Q15MIN [facility] Stop: 07/23/17 08:46 Last Admin: 07/20/17 10:34 Dose: 2.5 mg Allopurinol (Zyloprim) 100 mg PO DAILY [facility] Last Admin: 07/21/17 09:35 Dose: 100 mg Amlodipine Besylate (Norvasc) 10 mg PO DAILY [facility] Last Admin: 07/21/17 09:35 Dose: 10 mg Bupropion HCl (Wellbutrin) 75 mg PO BID [facility] Last Admin: 07/21/17 17:10 Dose: 75 mg Calcitriol (Rocaltrol) 0.25 mcg PO DAILY [facility] Last Admin: 07/21/17 09:33 Dose: 0.25 mcg Calcium Acetate (Phoslo) 1,334 mg PO @0900,1300,1700 [facility] Last Admin: 07/21/17 17:10 Dose: 1,334 mg Clonidine HCl (Catapres) 0.3 mg PO Q8 [facility] Last Admin: 07/21/17 17:10 Dose: 0.3 mg Ferrous Sulfate (Feosol) 325 mg PO BID [facility] Last Admin: 07/21/17 17:10 Dose: 325 mg Fludrocortisone Acetate (Florinef) 0.1 mg PO DAILY [facility] Folic Acid (Folic Acid) 1 mg PO DAILY [facility] Last Admin: 07/21/17 09:34 Dose: 1 mg Furosemide (Lasix) 20 mg PO DAILY@1700 [facility] Last Admin: 07/21/17 17:10 Dose: 20 mg Furosemide (Lasix) 40 mg PO DAILY [facility] Last Admin: 07/21/17 09:33 Dose: 40 mg Gabapentin (Neurontin) 100 mg PO TID [facility] Last Admin: 07/21/17 17:10 Dose: 100 mg Glipizide (Glucotrol Xl) 10 mg PO BID [facility] Last Admin: 07/21/17 17:10 Dose: 10 mg Heparin Sodium (Porcine) (Heparin) 5,000 units SC Q8 [facility] PRN Reason: Protocol Last Admin: 07/20/17 09:05 Dose: Not Given Hydralazine HCl (Apresoline) 100 mg PO Q6H [facility] Last Admin: 07/21/17 18:53 Dose: 100 mg Aztreonam 1 gm/ Sodium (Chloride) 100 mls @ 100 mls/hr IVPB Q12@0500,1700 [facility] Last Admin: 07/21/17 17:10 Dose: 100 mls/hr Insulin Human Regular (Humulin R) 0 units SC ACHS [facility] PRN Reason: Protocol Last Admin: 07/21/17 21:58 Dose: Not Given Labetalol HCl (Trandate) 200 mg PO BID [facility] Last Admin: 07/20/17 09:05 Dose: Not Given Magnesium Oxide (Mag-Ox) 400 mg PO BID [facility] Last Admin: 07/21/17 17:10 Dose: 400 mg Multivitamins/Minerals (Therapeutic-M Tab) 1 tab PO DAILY [facility] Last Admin: 07/21/17 09:34 Dose: 1 tab Mupirocin (Bactroban Ointment) 1 applic TOP BID [facility] Last Admin: 07/21/17 17:10 Dose: Not Given Pantoprazole Sodium (Protonix Ec Tab) 40 mg PO DAILY [facility] Last Admin: 07/21/17 09:34 Dose: 40 mg Pentoxifylline (Pentoxil) 400 mg PO BID [facility] Last Admin: 07/21/17 17:10 Dose: 400 mg Sodium Bicarbonate (Sodium Bicarbonate Tab) 650 mg PO BID [facility] Last Admin: 07/21/17 17:10 Dose: 650 mg Vitamin D (Vitamin D 400 Intl Units Tab) 400 intlu PO DAILY [facility] Last Admin: 07/21/17 09:34 Dose: 400 intlu - Labs Labs: 07/21/17 08:30 07/21/17 08:30 - Constitutional Appears: Well, No Acute Distress - Head Exam Head Exam: NORMAL INSPECTION - Eye Exam Eye Exam: Normal appearance. absent: Scleral icterus - ENT Exam ENT Exam: Mucous Membranes Moist - Respiratory Exam Respiratory Exam: Clear to Ausculation Bilateral, NORMAL BREATHING PATTERN - Cardiovascular Exam Cardiovascular Exam: RRR, +S1, +S2 - GI/Abdominal Exam GI & Abdominal Exam: Soft. absent: Distended, Tenderness - Extremities Exam Extremities Exam: Normal Capillary Refill Additional comments: mild lower leg edema R >> L; - Neurological Exam Neurological Exam: Alert, Awake - Psychiatric Exam Psychiatric exam: Normal Affect, Normal Mood - Skin Skin Exam: Normal Color, Warm. absent: Cyanosis Assessment and Plan (1) Hyperkalemia Assessment & Plan: Improved after aggressive medical management yesterday, however, still not resolved; giving another dose kayexalate 15 g today; will consider keeping on lower dose of florinef to avoid side effects (volume overload, hyperglycemia); Status: Acute (2) Chronic kidney disease-mineral and bone disorder Assessment & Plan: Secondary hyperparathyroidism; started on calcitriol 0.25 mg daily; awaiting repeat PTH; continue phoslo 2 tabs w/ meals; Status: Acute (3) Hypertensive CKD (chronic kidney disease) Assessment & Plan: BP much better controlled with hydralazine 100 mg qid; continue same along with amlodipine 10, clondine 0.3 mg q8h and lasix 40/20; Status: Acute (4) Anemia in chronic kidney disease (CKD) Assessment & Plan: Hgb relatively stable; monitor; no need for EPO currently; Status: Chronic (5) CKD (chronic kidney disease) stage 4, GFR 15-29 ml/min Assessment & Plan: Serum creatinine increased likely due to repeated IV lasix dosing; had otherwise been stable; outpatient AVF/AVG creation; Status: Chronic (6) Osteomyelitis Assessment & Plan: On dapto q48h and aztreonam 1 g q12h, dosed for renal insufficiency; Status: Suspected
[2017-07-22] MEDS: AZTREONAM IVPB SCH ×2 (05:52→17:17)
[2017-07-22] MEDS: NS IVPB SCH ×2 (05:52→17:17)
--- NOTE | 2017-07-22 06:43 | CP.PCM.PN ---
Subjective - Date & Time of Evaluation Date of Evaluation: 07/22/17 Time of Evaluation: 06:41 - Subjective Subjective: Podiatry- Dr. Medina 45 year old male seen at bedside for right plantar foot ulceration secondary to DM and Charcot deformity with Chopart's amputation. Patient seen laying comfortably at bedside, AA0x3, and in NAD. Dressing is clean and intact with no strikethrough noted at this time. Denies acute events overnight. Denies pain to ulceration. Denies any further pedal complaints at this time. Denies N/V/F/C/CP/ SOB Objective - Vital Signs/Intake and Output Vital Signs (last 24 hours): Temp Pulse Resp BP Pulse Ox 97.2 F L 64 20 131/77 99 07/21/17 21:38 07/21/17 21:38 07/21/17 21:38 07/22/17 05:53 07/21/17 21:38 - Medications Medications: Current Medications Acetaminophen (Tylenol 325mg Tab) 650 mg PO Q6 PRN PRN Reason: Pain, moderate (4-7) Last Admin: 07/21/17 21:55 Dose: 650 mg Albuterol Sulfate (Albuterol 0.083% Inhal Betsy (2.5 Mg/3 Ml) Ud) 2.5 mg INH Q15MIN [facility] Stop: 07/23/17 08:46 Last Admin: 07/20/17 10:34 Dose: 2.5 mg Allopurinol (Zyloprim) 100 mg PO DAILY [facility] Last Admin: 07/21/17 09:35 Dose: 100 mg Amlodipine Besylate (Norvasc) 10 mg PO DAILY [facility] Last Admin: 07/21/17 09:35 Dose: 10 mg Bupropion HCl (Wellbutrin) 75 mg PO BID [facility] Last Admin: 07/21/17 17:10 Dose: 75 mg Calcitriol (Rocaltrol) 0.25 mcg PO DAILY [facility] Last Admin: 07/21/17 09:33 Dose: 0.25 mcg Calcium Acetate (Phoslo) 1,334 mg PO WM@0900,1300,1700 [facility] Last Admin: 07/21/17 17:10 Dose: 1,334 mg Clonidine HCl (Catapres) 0.3 mg PO Q8 [facility] Last Admin: 07/22/17 01:51 Dose: 0.3 mg Ferrous Sulfate (Feosol) 325 mg PO BID [facility] Last Admin: 07/21/17 17:10 Dose: 325 mg Fludrocortisone Acetate (Florinef) 0.1 mg PO DAILY [facility] Folic Acid (Folic Acid) 1 mg PO DAILY [facility] Last Admin: 07/21/17 09:34 Dose: 1 mg Furosemide (Lasix) 20 mg PO DAILY@1700 [facility] Last Admin: 07/21/17 17:10 Dose: 20 mg Furosemide (Lasix) 40 mg PO DAILY [facility] Last Admin: 07/21/17 09:33 Dose: 40 mg Gabapentin (Neurontin) 100 mg PO TID [facility] Last Admin: 07/21/17 17:10 Dose: 100 mg Glipizide (Glucotrol Xl) 10 mg PO BID [facility] Last Admin: 07/21/17 17:10 Dose: 10 mg Heparin Sodium (Porcine) (Heparin) 5,000 units SC Q8 [facility] PRN Reason: Protocol Last Admin: 07/20/17 09:05 Dose: Not Given Hydralazine HCl (Apresoline) 100 mg PO Q6H [facility] Last Admin: 07/22/17 05:53 Dose: 100 mg Aztreonam 1 gm/ Sodium (Chloride) 100 mls @ 100 mls/hr IVPB Q12@0500,1700 [facility] Last Admin: 07/22/17 05:52 Dose: 100 mls/hr Insulin Human Regular (Humulin R) 0 units SC ACHS [facility] PRN Reason: Protocol Last Admin: 07/21/17 21:58 Dose: Not Given Labetalol HCl (Trandate) 200 mg PO BID [facility] Last Admin: 07/20/17 09:05 Dose: Not Given Magnesium Oxide (Mag-Ox) 400 mg PO BID [facility] Last Admin: 07/21/17 17:10 Dose: 400 mg Multivitamins/Minerals (Therapeutic-M Tab) 1 tab PO DAILY [facility] Last Admin: 07/21/17 09:34 Dose: 1 tab Mupirocin (Bactroban Ointment) 1 applic TOP BID [facility] Last Admin: 07/21/17 17:10 Dose: Not Given Pantoprazole Sodium (Protonix Ec Tab) 40 mg PO DAILY [facility] Last Admin: 07/21/17 09:34 Dose: 40 mg Pentoxifylline (Pentoxil) 400 mg PO BID [facility] Last Admin: 07/21/17 17:10 Dose: 400 mg Sodium Bicarbonate (Sodium Bicarbonate Tab) 650 mg PO BID [facility] Last Admin: 07/21/17 17:10 Dose: 650 mg Vitamin D (Vitamin D 400 Intl Units Tab) 400 intlu PO DAILY [facility] Last Admin: 07/21/17 09:34 Dose: 400 intlu - Labs Labs: 07/21/17 08:30 07/21/17 08:30 - Constitutional Appears: Well, Non-toxic, No Acute Distress - Extremities Exam Additional comments: LE focused exam: Vasc: DP pulses nonpalpable b/l. PT pulses palpable 1/4 b/l. Diffused edema noted to RLE. Skin temperature warm to warm from proximal to distal stump. Neuro: Epicritic and protective sensation grossly diminished b/l Derm: Ulceration noted to lateral aspect of right foot measuring roughly 3.0 cm x 0.8 cm x 0.4 cm with granular base and fibrotic border with increased maceration. No serous drainage noted today. No malodor, purulence, periwound erythema or other clinical infection noted at this time. 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 No POP noted to ulceration site - Neurological Exam Neurological Exam: Alert, Awake, Oriented x3 - Psychiatric Exam Psychiatric exam: Normal Affect, Normal Mood Assessment and Plan - Assessment and Plan (Free Text) Assessment: 45 year old male with PMH of CKD, OM Right foot, DM II with Neuropathy, bilateral Charcot with right plantar ulceration secondary to DM and Charcot deformity Plan: Patient seen and evaluated at bedside. Discussed with attending Dr. Vasquez present. Charts, labs and vitals reviewed; afebrile WBC 10.9. Dressing changed with betadine, ABD, DSD Continue IV abx per ID. Pt to be full weightbearing to tolerance with use of [place] Walker to [facility] lower extremity. Patient to remain in TCU until 07/29 to finish ten day course of abx per ID Podiatry to continue to follow while in house
[2017-07-22] MEDS: Insulin Regular 100 units/ml SC SCH ×4 (07:01→21:48)
[2017-07-22 07:23] LABS: HEMATOCRIT 28.7 % (35.0-51.0); MEAN CELL VOLUME 76.7 fl (80.0-94.0); MEAN CORPUSCULAR HEMOGLOBIN 25.2 pg (27.0-31.0); MEAN CORPUSCULAR HGB CONC 32.8 g/dL (33.0-37.0); RED CELL DISTRIBUTION WIDTH 14.1 % (11.5-14.5); WHITE BLOOD COUNT 11.1 K/uL (4.8-10.8)
[2017-07-22 07:52] LABS: ALB/GLOB RATIO 0.9 (1.0-2.1); BILIRUBIN,TOTAL 0.4 mg/dl (0.2-1.3); CALCIUM 8.5 mg/dL (8.4-10.2); TOTAL PROTEIN 7.3 G/DL (6.3-8.2)
[2017-07-22] MEDS: Cholecalciferol 400 Intl Units Tab PO SCH (08:59)
[2017-07-22] MEDS: Magnesium Oxide 400 mg Tab UD PO SCH ×2 (08:59→17:18)
[2017-07-22] MEDS: Pantoprazole 40 mg EC Tab PO SCH (08:59)
[2017-07-22] MEDS ORDERED: Silver Sulfadiazine 1% Cream (20 gm) TOP SCH (09:00)
[2017-07-22] MEDS: Multivitamin With Minerals Tab PO SCH (09:00)
[2017-07-22] MEDS: GlipiZIDE 10 mg SR Tab PO SCH ×2 (09:00→17:15)
[2017-07-22] MEDS ORDERED: Sod Polystyrene Sulf 15 gm/60 ml Oral Susp PO ONE (10:40)
[2017-07-22] MEDS: Sodium Chloride 0.9% 1,000 ML IV SCH (12:29)
[2017-07-22 12:52] LABS: POTASSIUM 5.3 MMOL/L (3.6-5.0)
--- NOTE | 2017-07-22 19:41 | CP.PCM.PN ---
Subjective - Date & Time of Evaluation Date of Evaluation: 07/22/17 Time of Evaluation: 19:30 - Subjective Subjective: Patient denies any shortness of breath; urinated very frequently overnight; Objective - Vital Signs/Intake and Output Vital Signs (last 24 hours): Temp Pulse Resp BP Pulse Ox 97.4 F L 68 20 142/74 99 07/22/17 16:36 07/22/17 17:19 07/22/17 16:36 07/22/17 17:19 07/22/17 16:36 - Medications Medications: Current Medications Acetaminophen (Tylenol 325mg Tab) 650 mg PO Q6 PRN PRN Reason: Pain, moderate (4-7) Last Admin: 07/21/17 21:55 Dose: 650 mg Albuterol Sulfate (Albuterol 0.083% Inhal Betsy (2.5 Mg/3 Ml) Ud) 2.5 mg INH Q15MIN [facility] Stop: 07/23/17 08:46 Last Admin: 07/20/17 10:34 Dose: 2.5 mg Allopurinol (Zyloprim) 100 mg PO DAILY [facility] Last Admin: 07/22/17 09:00 Dose: 100 mg Amlodipine Besylate (Norvasc) 10 mg PO DAILY [facility] Last Admin: 07/22/17 09:00 Dose: 10 mg Bupropion HCl (Wellbutrin) 75 mg PO BID [facility] Last Admin: 07/22/17 17:18 Dose: 75 mg Calcitriol (Rocaltrol) 0.25 mcg PO DAILY [facility] Last Admin: 07/22/17 08:59 Dose: 0.25 mcg Calcium Acetate (Phoslo) 1,334 mg PO WM@0900,1300,1700 [facility] Last Admin: 07/22/17 17:19 Dose: 1,334 mg Clonidine HCl (Catapres) 0.3 mg PO Q8 [facility] Last Admin: 07/22/17 17:19 Dose: 0.3 mg Ferrous Sulfate (Feosol) 325 mg PO BID [facility] Last Admin: 07/22/17 17:18 Dose: 325 mg Fludrocortisone Acetate (Florinef) 0.1 mg PO DAILY [facility] Folic Acid (Folic Acid) 1 mg PO DAILY [facility] Last Admin: 07/22/17 08:59 Dose: 1 mg Furosemide (Lasix) 20 mg PO DAILY@1700 [facility] Last Admin: 07/21/17 17:10 Dose: 20 mg Furosemide (Lasix) 40 mg PO DAILY [facility] Last Admin: 07/22/17 08:59 Dose: 40 mg Gabapentin (Neurontin) 100 mg PO TID [facility] Last Admin: 07/22/17 17:19 Dose: 100 mg Glipizide (Glucotrol Xl) 10 mg PO BID [facility] Last Admin: 07/22/17 17:15 Dose: 10 mg Heparin Sodium (Porcine) (Heparin) 5,000 units SC Q12H [facility] PRN Reason: Protocol Hydralazine HCl (Apresoline) 100 mg PO Q6H [facility] Last Admin: 07/22/17 17:18 Dose: 100 mg Aztreonam 1 gm/ Sodium (Chloride) 100 mls @ 100 mls/hr IVPB Q12@0500,1700 [facility] Last Admin: 07/22/17 17:17 Dose: 100 mls/hr Sodium Chloride (Sodium Chloride 0.9%) 1,000 mls @ 75 mls/hr IV .[id number] [facility] Stop: 07/23/17 09:05 Last Admin: 07/22/17 12:29 Dose: 75 mls/hr Daptomycin 680 mg/ Sodium (Chloride) 100 mls @ 100 mls/hr IVPB QOTHERDAY [facility] Insulin Human Regular (Humulin R) 0 units SC ACHS [facility] PRN Reason: Protocol Last Admin: 07/22/17 17:12 Dose: Not Given Labetalol HCl (Trandate) 200 mg PO BID [facility] Last Admin: 07/20/17 09:05 Dose: Not Given Magnesium Oxide (Mag-Ox) 400 mg PO BID [facility] Last Admin: 07/22/17 17:18 Dose: 400 mg Multivitamins/Minerals (Therapeutic-M Tab) 1 tab PO DAILY [facility] Last Admin: 07/22/17 09:00 Dose: 1 tab Mupirocin (Bactroban Ointment) 1 applic TOP BID [facility] Last Admin: 07/22/17 17:12 Dose: Not Given Pantoprazole Sodium (Protonix Ec Tab) 40 mg PO DAILY [facility] Last Admin: 07/22/17 08:59 Dose: 40 mg Pentoxifylline (Pentoxil) 400 mg PO BID [facility] Last Admin: 07/22/17 17:19 Dose: 400 mg Sodium Bicarbonate (Sodium Bicarbonate Tab) 650 mg PO BID [facility] Last Admin: 07/22/17 17:18 Dose: 650 mg Vitamin D (Vitamin D 400 Intl Units Tab) 400 intlu PO DAILY [facility] Last Admin: 07/22/17 08:59 Dose: 400 intlu - Labs Labs: 07/22/17 06:00 07/22/17 06:00 - Constitutional Appears: Non-toxic, No Acute Distress - Head Exam Head Exam: NORMAL INSPECTION - Eye Exam Eye Exam: Normal appearance. absent: Scleral icterus - ENT Exam ENT Exam: Mucous Membranes Moist - Respiratory Exam Respiratory Exam: Clear to Ausculation Bilateral, NORMAL BREATHING PATTERN. absent: Rhonchi, Wheezes, Respiratory Distress - Cardiovascular Exam Cardiovascular Exam: REGULAR RHYTHM, +S1, +S2 - GI/Abdominal Exam GI & Abdominal Exam: Soft. absent: Distended, Tenderness - Exam Exam: absent: Bladder Distension - Extremities Exam Extremities Exam: Normal Capillary Refill Additional comments: Moderate lower leg edema on R, mild on L; - Neurological Exam Neurological Exam: Alert, Awake - Psychiatric Exam Psychiatric exam: Normal Affect, Normal Mood - Skin Skin Exam: Normal Color, Warm. absent: Cyanosis Assessment and Plan (1) Hyperkalemia Assessment & Plan: Improved; still mildly elevated K; keeping B-anthony off; continuing kayexalate 15 g daily; holding lasix today and giving IVF due to possible volume depletion with increased BUN/Creat; may give dose of florinef 0.1 mg 1/2 tab tomorrow to help control K if BP controlled; Status: Acute (2) Hypertensive CKD (chronic kidney disease) Assessment & Plan: BP much better controlled with hydralazine 25 mg q6h, continue; continue amlodipine 10 and clonidine 0.3 mg q8h; holding lasix as above; Status: Acute (3) Chronic kidney disease-mineral and bone disorder Assessment & Plan: On calcitriol 0.25 mcg daily; awaiting repeat PTH; continue phoslo 2 tabs w/ meals; Status: Acute (4) Anemia in chronic kidney disease (CKD) Assessment & Plan: Mild drop in hgb; will monitor; avoiding EPO for now due to erratic BP control; Status: Chronic (5) CKD (chronic kidney disease) stage 4, GFR 15-29 ml/min Assessment & Plan: Worsening renal function in the setting of extra diuresis (done to help renal excretion of K); holding lasix and giving IVF w/ NS at 75 cc/hr; outpatient f/u for AVF/AVG creation; no indication to initiate HD at this time; Status: Chronic (6) Osteomyelitis Assessment & Plan: On dapto q48h and aztreonam 1 g q12, dose reduced for renal insufficiency; Status: Suspected
--- NOTE | 2017-07-22 22:04 | PN ---
SUBJECTIVE: The patient is seen and examined. Interim events noted. Consults noted and appreciated. Infectious Disease, Podiatry and Nephrology followup and intervention noted and appreciated. The patient remains in transitional care unit, on IV antibiotics. The patient feels okay. Foot pain and oral pain is much better, controlled with Tylenol. No chest pain or shortness of breath. No new compliant. PHYSICAL EXAMINATION: GENERAL: The patient is in no acute distress. VITAL SIGNS: Stable. HEART: S1 and S2 normal, regular. LUNGS: Good bilateral air entry. ABDOMEN: Soft and nontender. EXTREMITIES: The patient is status post amputation, being treated for osteomyelitis. no calf swelling. No tenderness. No acute ischemia. 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 DIAGNOSTIC DATA: Available diagnostic data reviewed. Potassium was still high and Kayexalate was given. IMPRESSION: Overall, the patient is general medical condition is slowly improved. PLAN: As ordered. Case and plan discussed with the patient. Joel Lake MD
[2017-07-23] MEDS: Sodium Chloride 0.9% 1,000 ML IV SCH (01:06)
[2017-07-23] MEDS: NS IVPB SCH ×2 (05:13→16:44)
[2017-07-23] MEDS: AZTREONAM IVPB SCH ×2 (05:13→16:44)
[2017-07-23] MEDS: Insulin Regular 100 units/ml SC SCH ×4 (06:49→21:33)
[2017-07-23 07:19] LABS: BASO # 0.1 K/uL (0.0-0.2); BASO % 0.6 % (0.0-2.0); EOS # 0.4 K/uL (0.0-0.7); EOS % 3.2 % (0.0-4.0); HEMATOCRIT 28.1 % (35.0-51.0); LYMPH # 2.2 K/uL (1.0-4.3); LYMPH % 18.6 % (20.0-40.0); MEAN CELL VOLUME 76.8 fl (80.0-94.0); MEAN CORPUSCULAR HEMOGLOBIN 24.8 pg (27.0-31.0); MEAN CORPUSCULAR HGB CONC 32.2 g/dL (33.0-37.0); MONO # 0.7 K/uL (0.0-0.8); MONO % 5.8 % (0.0-10.0); NEUT # 8.3 K/uL (1.8-7.0); NEUT % 71.8 % (50.0-75.0); RED CELL DISTRIBUTION WIDTH 14.3 % (11.5-14.5); WHITE BLOOD COUNT 11.6 K/uL (4.8-10.8)
[2017-07-23 07:31] LABS: ALB/GLOB RATIO 0.9 (1.0-2.1); BILIRUBIN,TOTAL 0.3 mg/dl (0.2-1.3); CALCIUM 8.4 mg/dL (8.4-10.2); MAGNESIUM 1.5 MG/DL (1.6-2.3); PHOSPHOROUS 6.5 mg/dl (2.5-4.5); TOTAL PROTEIN 7.3 G/DL (6.3-8.2)
[2017-07-23 07:43] LABS: POTASSIUM 5.4 MMOL/L (3.6-5.0)
--- NOTE | 2017-07-23 08:40 | CP.PCM.PN ---
Subjective - Date & Time of Evaluation Date of Evaluation: 07/23/17 Time of Evaluation: 08:37 - Subjective Subjective: Podiatry- Dr. 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 Patient seen laying comfortably at bedside, AA0x3, and in NAD. Dressing is clean and intact with no strikethrough noted at this time. Denies acute events overnight. Denies pain to ulceration. Denies any further pedal complaints at this time. Denies N/V /F/C/CP/SOB Objective - Vital Signs/Intake and Output Vital Signs (last 24 hours): Temp Pulse Resp BP Pulse Ox 97.7 F 71 20 142/77 98 07/23/17 08:06 07/23/17 08:06 07/23/17 08:06 07/23/17 08:06 07/23/17 08:06 - Medications Medications: Current Medications Acetaminophen (Tylenol 325mg Tab) 650 mg PO Q6 PRN PRN Reason: Pain, moderate (4-7) Last Admin: 07/21/17 21:55 Dose: 650 mg Albuterol Sulfate (Albuterol 0.083% Inhal Betsy (2.5 Mg/3 Ml) Ud) 2.5 mg INH Q15MIN [facility] Stop: 07/23/17 08:46 Last Admin: 07/20/17 10:34 Dose: 2.5 mg Allopurinol (Zyloprim) 100 mg PO DAILY [facility] Last Admin: 07/22/17 09:00 Dose: 100 mg Amlodipine Besylate (Norvasc) 10 mg PO DAILY [facility] Last Admin: 07/22/17 09:00 Dose: 10 mg Bupropion HCl (Wellbutrin) 75 mg PO BID [facility] Last Admin: 07/22/17 17:18 Dose: 75 mg Calcitriol (Rocaltrol) 0.25 mcg PO DAILY [facility] Last Admin: 07/22/17 08:59 Dose: 0.25 mcg Calcium Acetate (Phoslo) 1,334 mg PO WM@0900,1300,1700 [facility] Last Admin: 07/22/17 17:19 Dose: 1,334 mg Clonidine HCl (Catapres) 0.3 mg PO Q8 [facility] Last Admin: 07/23/17 01:05 Dose: 0.3 mg Ferrous Sulfate (Feosol) 325 mg PO BID [facility] Last Admin: 07/22/17 17:18 Dose: 325 mg Fludrocortisone Acetate (Florinef) 0.1 mg PO DAILY [facility] Folic Acid (Folic Acid) 1 mg PO DAILY [facility] Last Admin: 07/22/17 08:59 Dose: 1 mg Furosemide (Lasix) 20 mg PO DAILY@1700 [facility] Last Admin: 07/21/17 17:10 Dose: 20 mg Furosemide (Lasix) 40 mg PO DAILY [facility] Last Admin: 07/22/17 08:59 Dose: 40 mg Gabapentin (Neurontin) 100 mg PO TID [facility] Last Admin: 07/22/17 17:19 Dose: 100 mg Glipizide (Glucotrol Xl) 10 mg PO BID [facility] Last Admin: 07/22/17 17:15 Dose: 10 mg Heparin Sodium (Porcine) (Heparin) 5,000 units SC Q12 [facility] PRN Reason: Protocol Hydralazine HCl (Apresoline) 100 mg PO Q6H [facility] Last Admin: 07/23/17 06:24 Dose: 100 mg Aztreonam 1 gm/ Sodium (Chloride) 100 mls @ 100 mls/hr IVPB Q12@0500,1700 [facility] Last Admin: 07/23/17 05:13 Dose: 100 mls/hr Sodium Chloride (Sodium Chloride 0.9%) 1,000 mls @ 75 mls/hr IV .[id number] [facility] Stop: 07/23/17 09:05 Last Admin: 07/23/17 01:06 Dose: 75 mls/hr Daptomycin 680 mg/ Sodium (Chloride) 100 mls @ 100 mls/hr IVPB QOTHERDAY [facility] Insulin Human Regular (Humulin R) 0 units SC ACHS [facility] PRN Reason: Protocol Last Admin: 07/23/17 06:49 Dose: 3 units Labetalol HCl (Trandate) 200 mg PO BID [facility] Last Admin: 07/20/17 09:05 Dose: Not Given Magnesium Oxide (Mag-Ox) 400 mg PO BID [facility] Last Admin: 07/22/17 17:18 Dose: 400 mg Multivitamins/Minerals (Therapeutic-M Tab) 1 tab PO DAILY [facility] Last Admin: 07/22/17 09:00 Dose: 1 tab Mupirocin (Bactroban Ointment) 1 applic TOP BID [facility] Last Admin: 07/22/17 17:12 Dose: Not Given Pantoprazole Sodium (Protonix Ec Tab) 40 mg PO DAILY [facility] Last Admin: 07/22/17 08:59 Dose: 40 mg Pentoxifylline (Pentoxil) 400 mg PO BID [facility] Last Admin: 07/22/17 17:19 Dose: 400 mg Sodium Bicarbonate (Sodium Bicarbonate Tab) 650 mg PO BID [facility] Last Admin: 07/22/17 17:18 Dose: 650 mg Vitamin D (Vitamin D 400 Intl Units Tab) 400 intlu PO DAILY [facility] Last Admin: 07/22/17 08:59 Dose: 400 intlu - Labs Labs: 07/23/17 06:00 07/23/17 06:00 - Constitutional Appears: Well, Non-toxic, No Acute Distress - Extremities Exam Additional comments: LE focused exam: Vasc: DP pulses nonpalpable b/l. PT pulses palpable 1/4 b/l. Diffused edema noted to RLE. Skin temperature warm to warm from proximal to distal stump. Neuro: Epicritic and protective sensation grossly diminished b/l Derm: Ulceration noted to lateral aspect of right foot measuring roughly 3.0 cm x 0.8 cm x 0.4 cm with granular base and fibrotic border with decreased maceration. No serous drainage noted today. No malodor, purulence, periwound erythema or other clinical infection noted at this time. 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 No POP noted to ulceration site - Neurological Exam Neurological Exam: Alert, Awake, Oriented x3 - Psychiatric Exam Psychiatric exam: Normal Affect, Normal Mood Assessment and Plan - Assessment and Plan (Free Text) Assessment: 45 year old male with PMH of CKD, OM Right foot, DM II with Neuropathy, bilateral Charcot with right plantar ulceration secondary to DM and Charcot deformity Plan: Patient seen and evaluated at bedside. Discussed plan with covering attending, Dr. Vasquez Charts, labs and vitals reviewed; afebrile WBC 11.6. Dressing changed with Mupirocin ointment, ABD, DSD Continue IV abx per ID. Pt to be full weightbearing to tolerance with use of [place] [employer] Walker to right lower extremity. Patient to remain in TCU until 07/29 to finish ten day course of abx per ID Podiatry to continue to follow while in house
--- NOTE | 2017-07-23 09:11 | PN ---
DATE: 07/23/2017 SUBJECTIVE: The patient is seen and examined. Interim events noted. Consults noted and appreciated. Nephrology followup and intervention noted and appreciated. The patient remains in transitional care unit. The patient feels okay. No specific complaints. No chest pain. No shortness of breath. Foot pain is adequately controlled. PHYSICAL EXAMINATION: GENERAL: The patient is in no acute distress. VITAL SIGNS: Stable. HEART: S1 and S2 normal and regular. LUNGS: Bilateral air exchange. ABDOMEN: Soft and nontender. EXTREMITIES: No edema. No calf swelling. No tenderness. No acute ischemia. CENTRAL NERVOUS SYSTEM: Essentially unchanged. DIAGNOSTIC DATA: Available diagnostic data reviewed. IMPRESSION: Overall, the patient's general medical condition is stable. PLAN: As ordered. Joel Lake MD
[2017-07-23] MEDS: Multivitamin With Minerals Tab PO SCH (09:12)
[2017-07-23] MEDS: Pantoprazole 40 mg EC Tab PO SCH (09:13)
[2017-07-23] MEDS: Magnesium Oxide 400 mg Tab UD PO SCH ×2 (09:13→16:47)
[2017-07-23] MEDS: Cholecalciferol 400 Intl Units Tab PO SCH (09:16)
[2017-07-23] MEDS: GlipiZIDE 10 mg SR Tab PO SCH ×2 (09:16→16:47)
[2017-07-23] MEDS: Sod Polystyrene Sulf 15 gm/60 ml Oral Susp PO SCH (12:07)
--- NOTE | 2017-07-23 16:19 | CP.PCM.PN ---
Objective - Vital Signs/Intake and Output Vital Signs (last 24 hours): Temp Pulse Resp BP Pulse Ox 97.7 F 64 20 134/74 98 07/23/17 08:06 07/23/17 11:58 07/23/17 08:06 07/23/17 11:58 07/23/17 08:06 - Medications Medications: Current Medications Acetaminophen (Tylenol 325mg Tab) 650 mg PO Q6 PRN PRN Reason: Pain, moderate (4-7) Last Admin: 07/21/17 21:55 Dose: 650 mg Allopurinol (Zyloprim) 100 mg PO DAILY [facility] Last Admin: 07/23/17 09:18 Dose: 100 mg Amlodipine Besylate (Norvasc) 10 mg PO DAILY [facility] Last Admin: 07/23/17 09:19 Dose: 10 mg Bupropion HCl (Wellbutrin) 75 mg PO BID [facility] Last Admin: 07/23/17 09:13 Dose: 75 mg Calcitriol (Rocaltrol) 0.25 mcg PO MWF [facility] Calcium Acetate (Phoslo) 1,334 mg PO WM@0900,1300,1700 [facility] Last Admin: 07/23/17 12:03 Dose: 1,334 mg Clonidine HCl (Catapres) 0.3 mg PO Q8 [facility] Last Admin: 07/23/17 09:15 Dose: 0.3 mg Ferrous Sulfate (Feosol) 325 mg PO BID [facility] Last Admin: 07/23/17 09:12 Dose: 325 mg Fludrocortisone Acetate (Florinef) 0.1 mg PO DAILY [facility] Folic Acid (Folic Acid) 1 mg PO DAILY [facility] Last Admin: 07/23/17 09:11 Dose: 1 mg Furosemide (Lasix) 20 mg PO DAILY@1700 [facility] Last Admin: 07/21/17 17:10 Dose: 20 mg Furosemide (Lasix) 40 mg PO DAILY [facility] Last Admin: 07/22/17 08:59 Dose: 40 mg Gabapentin (Neurontin) 100 mg PO TID [facility] Last Admin: 07/23/17 12:03 Dose: 100 mg Glipizide (Glucotrol Xl) 10 mg PO BID [facility] Last Admin: 07/23/17 09:16 Dose: 10 mg Heparin Sodium (Porcine) (Heparin) 5,000 units SC Q12 [facility] PRN Reason: Protocol Last Admin: 07/23/17 09:17 Dose: 5,000 units Hydralazine HCl (Apresoline) 100 mg PO Q6H [facility] Last Admin: 07/23/17 11:58 Dose: 100 mg Aztreonam 1 gm/ Sodium (Chloride) 100 mls @ 100 mls/hr IVPB Q12@0500,1700 [facility] Last Admin: 07/23/17 05:13 Dose: 100 mls/hr Daptomycin 680 mg/ Sodium (Chloride) 100 mls @ 100 mls/hr IVPB QOTHERDAY [facility] Insulin Human Regular (Humulin R) 0 units SC ACHS [facility] PRN Reason: Protocol Last Admin: 07/23/17 12:02 Dose: 3 units Labetalol HCl (Trandate) 200 mg PO BID [facility] Last Admin: 07/20/17 09:05 Dose: Not Given Magnesium Oxide (Mag-Ox) 400 mg PO BID [facility] Last Admin: 07/23/17 09:13 Dose: 400 mg Multivitamins/Minerals (Therapeutic-M Tab) 1 tab PO DAILY [facility] Last Admin: 07/23/17 09:12 Dose: 1 tab Mupirocin (Bactroban Ointment) 1 applic TOP BID [facility] Last Admin: 07/23/17 09:14 Dose: 1 applic Pantoprazole Sodium (Protonix Ec Tab) 40 mg PO DAILY [facility] Last Admin: 07/23/17 09:13 Dose: 40 mg Pentoxifylline (Pentoxil) 400 mg PO BID [facility] Last Admin: 07/23/17 09:18 Dose: 400 mg Sodium Bicarbonate (Sodium Bicarbonate Tab) 650 mg PO BID [facility] Last Admin: 07/23/17 09:11 Dose: 650 mg Sodium Polystyrene Sulfonate (Kayexalate Oral Susp) 15 gm PO DAILY@1200 [facility] Last Admin: 07/23/17 12:07 Dose: 15 gm Vitamin D (Vitamin D 400 Intl Units Tab) 400 intlu PO DAILY [facility] Last Admin: 07/23/17 09:16 Dose: 400 intlu - Labs Labs: 07/23/17 06:00 07/23/17 06:00 Assessment and Plan (1) Hyperkalemia Status: Acute (2) Hypertensive CKD (chronic kidney disease) Status: Acute (3) Chronic kidney disease-mineral and bone disorder Status: Acute (4) Anemia in chronic kidney disease (CKD) Status: Chronic (5) CKD (chronic kidney disease) stage 4, GFR 15-29 ml/min Status: Chronic (6) Osteomyelitis Status: Suspected
[2017-07-24] MEDS: NS IVPB SCH ×2 (05:40→17:08)
[2017-07-24] MEDS: AZTREONAM IVPB SCH ×2 (05:40→17:08)
[2017-07-24] MEDS: Insulin Regular 100 units/ml SC SCH ×4 (06:43→21:52)
--- NOTE | 2017-07-24 08:22 | CP.PCM.PN ---
Subjective - Date & Time of Evaluation Date of Evaluation: 07/24/17 Time of Evaluation: 08:20 - Subjective Subjective: Podiatry- Dr. 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 Patient seen laying comfortably at bedside, AA0x3, and in NAD. Dressing is clean and intact with no strikethrough noted at this time. Denies acute events overnight. States that he is able to walk in his NONDALTON boot more and more each day and that he has been going to therapy daily which he says is going well. Denies pain to ulceration. Denies any further pedal complaints at this time. Denies N/V/F/C/CP/ SOB Objective - Vital Signs/Intake and Output Vital Signs (last 24 hours): Temp Pulse Resp BP Pulse Ox 97.0 F L 70 20 126/78 99 07/24/17 07:52 07/24/17 07:52 07/24/17 07:52 07/24/17 07:52 07/24/17 07:52 - Medications Medications: Current Medications Acetaminophen (Tylenol 325mg Tab) 650 mg PO Q6 PRN PRN Reason: Pain, moderate (4-7) Last Admin: 07/21/17 21:55 Dose: 650 mg Allopurinol (Zyloprim) 100 mg PO DAILY [facility] Last Admin: 07/23/17 09:18 Dose: 100 mg Amlodipine Besylate (Norvasc) 10 mg PO DAILY [facility] Last Admin: 07/23/17 09:19 Dose: 10 mg Bupropion HCl (Wellbutrin) 75 mg PO BID [facility] Last Admin: 07/23/17 16:45 Dose: 75 mg Calcitriol (Rocaltrol) 0.25 mcg PO MWF [facility] Calcium Acetate (Phoslo) 1,334 mg PO WM@0900,1300,1700 [facility] Last Admin: 07/23/17 16:46 Dose: 1,334 mg Clonidine HCl (Catapres) 0.3 mg PO Q8 [facility] Last Admin: 07/24/17 01:30 Dose: 0.3 mg Ferrous Sulfate (Feosol) 325 mg PO BID [facility] Last Admin: 07/23/17 16:47 Dose: 325 mg Fludrocortisone Acetate (Florinef) 0.1 mg PO DAILY [facility] Folic Acid (Folic Acid) 1 mg PO DAILY [facility] Last Admin: 07/23/17 09:11 Dose: 1 mg Furosemide (Lasix) 20 mg PO DAILY@1700 [facility] Last Admin: 07/21/17 17:10 Dose: 20 mg Furosemide (Lasix) 40 mg PO DAILY [facility] Last Admin: 07/22/17 08:59 Dose: 40 mg Gabapentin (Neurontin) 100 mg PO TID [facility] Last Admin: 07/23/17 16:47 Dose: 100 mg Glipizide (Glucotrol Xl) 10 mg PO BID [facility] Last Admin: 07/23/17 16:47 Dose: 10 mg Heparin Sodium (Porcine) (Heparin) 5,000 units SC Q12 [facility] PRN Reason: Protocol Last Admin: 07/23/17 21:32 Dose: 5,000 units Hydralazine HCl (Apresoline) 100 mg PO Q6H [facility] Last Admin: 07/24/17 05:39 Dose: 100 mg Aztreonam 1 gm/ Sodium (Chloride) 100 mls @ 100 mls/hr IVPB Q12@0500,1700 [facility] Last Admin: 07/24/17 05:40 Dose: 100 mls/hr Daptomycin 680 mg/ Sodium (Chloride) 100 mls @ 100 mls/hr IVPB QOTHERDAY [facility] Insulin Human Regular (Humulin R) 0 units SC ACHS [facility] PRN Reason: Protocol Last Admin: 07/24/17 06:43 Dose: 3 units Labetalol HCl (Trandate) 200 mg PO BID [facility] Last Admin: 07/20/17 09:05 Dose: Not Given Magnesium Oxide (Mag-Ox) 400 mg PO BID [facility] Last Admin: 07/23/17 16:47 Dose: 400 mg Multivitamins/Minerals (Therapeutic-M Tab) 1 tab PO DAILY [facility] Last Admin: 07/23/17 09:12 Dose: 1 tab Mupirocin (Bactroban Ointment) 1 applic TOP BID [facility] Last Admin: 07/23/17 16:44 Dose: Not Given Pantoprazole Sodium (Protonix Ec Tab) 40 mg PO DAILY [facility] Last Admin: 07/23/17 09:13 Dose: 40 mg Pentoxifylline (Pentoxil) 400 mg PO BID [facility] Last Admin: 07/23/17 16:45 Dose: 400 mg Sitagliptin Phosphate (Januvia) 25 mg PO DAILY [facility] Sodium Bicarbonate (Sodium Bicarbonate Tab) 650 mg PO BID [facility] Last Admin: 07/23/17 16:47 Dose: 650 mg Sodium Polystyrene Sulfonate (Kayexalate Oral Susp) 15 gm PO DAILY@1200 [facility] Last Admin: 07/23/17 12:07 Dose: 15 gm Vitamin D (Vitamin D 400 Intl Units Tab) 400 intlu PO DAILY [facility] Last Admin: 07/23/17 09:16 Dose: 400 intlu - Labs Labs: 07/23/17 06:00 07/23/17 06:00 - Constitutional Appears: Well, Non-toxic, No Acute Distress - Extremities Exam Additional comments: LE focused exam: Vasc: DP pulses nonpalpable b/l. PT pulses palpable 1/4 b/l. Diffused edema noted to RLE. Skin temperature warm to warm from proximal to distal stump. Neuro: Epicritic and protective sensation grossly diminished b/l Derm: Ulceration noted to lateral aspect of right foot measuring roughly 3.0 cm x 0.8 cm x 0.4 cm with granular base and fibrotic border with minimal maceration noted to periwound area. No serous drainage noted today. No malodor, purulence, periwound erythema or other clinical infection noted at this time. 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 No POP noted to ulceration site - Neurological Exam Neurological Exam: Alert, Awake, Oriented x3 - Psychiatric Exam Psychiatric exam: Normal Affect, Normal Mood Assessment and Plan - Assessment and Plan (Free Text) Assessment: 45 year old male with PMH of CKD, OM Right foot, DM II with Neuropathy, bilateral Charcot with right plantar ulceration secondary to DM and Charcot deformity Plan: Patient seen and evaluated at bedside. Discussed plan with covering attending, Dr. Vasquez Charts, labs and vitals reviewed; afebrile Dressing changed with Mupirocin ointment, ABD, DSD with macerated tissue painted with betadine Continue IV abx per ID. Pt to be full weightbearing to tolerance with use of NONDALTON Walker to right lower extremity. Patient to remain in TCU until 07/29 to finish ten day course of abx per ID Podiatry to continue to follow while in house
[2017-07-24] MEDS: Multivitamin With Minerals Tab PO SCH (09:10)
[2017-07-24] MEDS: Magnesium Oxide 400 mg Tab UD PO SCH ×2 (09:11→17:10)
[2017-07-24] MEDS: Cholecalciferol 400 Intl Units Tab PO SCH (09:12)
[2017-07-24] MEDS: GlipiZIDE 10 mg SR Tab PO SCH ×2 (09:14→17:12)
[2017-07-24] MEDS: Pantoprazole 40 mg EC Tab PO SCH (09:14)
[2017-07-24 11:06] LABS: CALCIUM 8.7 mg/dL (8.4-10.2)
[2017-07-24 11:09] LABS: POTASSIUM 5.5 MMOL/L (3.6-5.0)
[2017-07-24] MEDS: Sod Polystyrene Sulf 15 gm/60 ml Oral Susp PO SCH (12:18)
[2017-07-24] MEDS ORDERED: Sod Polystyrene Sulf 15 gm/60 ml Oral Susp PO ONE (19:51)
--- NOTE | 2017-07-24 20:51 | CP.PCM.PN ---
Subjective - Date & Time of Evaluation Date of Evaluation: 07/24/17 Time of Evaluation: 20:30 - Subjective Subjective: Patient reports no complaints; no increased BM even though on kayexalate; urinating frequently despite being off diuretics; Objective - Vital Signs/Intake and Output Vital Signs (last 24 hours): Temp Pulse Resp BP Pulse Ox 97.0 F L 71 20 154/93 H 99 07/24/17 07:52 07/24/17 17:11 07/24/17 07:52 07/24/17 17:11 07/24/17 07:52 - Medications Medications: Current Medications Acetaminophen (Tylenol 325mg Tab) 650 mg PO Q6 PRN PRN Reason: Pain, moderate (4-7) Last Admin: 07/21/17 21:55 Dose: 650 mg Allopurinol (Zyloprim) 100 mg PO DAILY [facility] Last Admin: 07/24/17 09:12 Dose: 100 mg Amlodipine Besylate (Norvasc) 10 mg PO DAILY [facility] Last Admin: 07/24/17 09:16 Dose: 10 mg Bupropion HCl (Wellbutrin) 75 mg PO BID [facility] Last Admin: 07/24/17 09:12 Dose: 75 mg Calcitriol (Rocaltrol) 0.25 mcg PO MWF [facility] Last Admin: 07/24/17 09:13 Dose: 0.25 mcg Calcium Acetate (Phoslo) 1,334 mg PO WM@0900,1300,1700 [facility] Last Admin: 07/24/17 17:11 Dose: 1,334 mg Clonidine HCl (Catapres) 0.3 mg PO Q8 [facility] Last Admin: 07/24/17 17:09 Dose: 0.3 mg Ferrous Sulfate (Feosol) 325 mg PO BID [facility] Last Admin: 07/24/17 17:10 Dose: 325 mg Fludrocortisone Acetate (Florinef) 0.05 mg PO QOTHERDAY [facility] Folic Acid (Folic Acid) 1 mg PO DAILY [facility] Last Admin: 07/24/17 09:11 Dose: 1 mg Furosemide (Lasix) 20 mg PO DAILY@1700 [facility] Last Admin: 07/21/17 17:10 Dose: 20 mg Furosemide (Lasix) 40 mg PO DAILY [facility] Last Admin: 07/22/17 08:59 Dose: 40 mg Gabapentin (Neurontin) 100 mg PO TID [facility] Last Admin: 07/24/17 17:10 Dose: 100 mg Glipizide (Glucotrol Xl) 10 mg PO BID [facility] Last Admin: 07/24/17 17:12 Dose: 10 mg Heparin Sodium (Porcine) (Heparin) 5,000 units SC Q12 [facility] PRN Reason: Protocol Last Admin: 07/24/17 09:15 Dose: 5,000 units Hydralazine HCl (Apresoline) 100 mg PO Q6H [facility] Last Admin: 07/24/17 17:11 Dose: 100 mg Aztreonam 1 gm/ Sodium (Chloride) 100 mls @ 100 mls/hr IVPB Q12@0500,1700 [facility] Last Admin: 07/24/17 17:08 Dose: 100 mls/hr Daptomycin 680 mg/ Sodium (Chloride) 100 mls @ 100 mls/hr IVPB QOTHERDAY [facility] Last Admin: 07/24/17 17:08 Dose: 100 mls/hr Insulin Human Regular (Humulin R) 0 units SC ACHS [facility] PRN Reason: Protocol Last Admin: 07/24/17 17:12 Dose: Not Given Labetalol HCl (Trandate) 200 mg PO BID [facility] Last Admin: 07/20/17 09:05 Dose: Not Given Magnesium Oxide (Mag-Ox) 400 mg PO BID [facility] Last Admin: 07/24/17 17:10 Dose: 400 mg Multivitamins/Minerals (Therapeutic-M Tab) 1 tab PO DAILY [facility] Last Admin: 07/24/17 09:10 Dose: 1 tab Mupirocin (Bactroban Ointment) 1 applic TOP BID [facility] Last Admin: 07/24/17 17:12 Dose: Not Given Pantoprazole Sodium (Protonix Ec Tab) 40 mg PO DAILY [facility] Last Admin: 07/24/17 09:14 Dose: 40 mg Pentoxifylline (Pentoxil) 400 mg PO BID [facility] Last Admin: 07/24/17 17:11 Dose: 400 mg Sitagliptin Phosphate (Januvia) 25 mg PO DAILY [facility] Last Admin: 07/24/17 09:13 Dose: 25 mg Sodium Bicarbonate (Sodium Bicarbonate Tab) 650 mg PO BID [facility] Last Admin: 07/24/17 17:10 Dose: 650 mg Sodium Polystyrene Sulfonate (Kayexalate Oral Susp) 15 gm PO DAILY@1200 [facility] Last Admin: 07/24/17 12:18 Dose: 15 gm Vitamin D (Vitamin D 400 Intl Units Tab) 400 intlu PO DAILY [facility] Last Admin: 07/24/17 09:12 Dose: 400 intlu - Labs Labs: 07/23/17 06:00 07/24/17 06:30 - Constitutional Appears: Non-toxic, No Acute Distress - Head Exam Head Exam: NORMAL INSPECTION - Eye Exam Eye Exam: Normal appearance. absent: Scleral icterus - ENT Exam ENT Exam: Mucous Membranes Moist - Respiratory Exam Respiratory Exam: Clear to Ausculation Bilateral, NORMAL BREATHING PATTERN. absent: Rhonchi, Wheezes, Respiratory Distress - Cardiovascular Exam Cardiovascular Exam: REGULAR RHYTHM, +S1, +S2 - GI/Abdominal Exam GI & Abdominal Exam: Soft. absent: Distended, Tenderness - Extremities Exam Extremities Exam: Normal Capillary Refill Additional comments: Moderate lower leg edema R >> L; - Neurological Exam Neurological Exam: Alert, Awake - Psychiatric Exam Psychiatric exam: Normal Affect, Normal Mood - Skin Skin Exam: Normal Color, Warm. absent: Cyanosis Assessment and Plan (1) Hyperkalemia Assessment & Plan: Still persists despite being on daily kayexalate 15 g; giving extra dose of kayexalate 30 g this evening; will restart florinef at lower dose (0.05 mg once daily) and re-assess; Status: Acute (2) Hypertensive CKD (chronic kidney disease) Assessment & Plan: BP had mostly been controlled after starting hydralazine but higher this evening ; likely needs to restart diuretics with lasix 40 mg in am, 20 mg in pm; Status: Acute (3) Chronic kidney disease-mineral and bone disorder Assessment & Plan: Phoslo increased to 2 tabs w/ meals, will re-check phos level; calcitriol decreased to 0.25 mcg qMWF, will repeat PTH as outpatient next month; Status: Acute (4) Anemia in chronic kidney disease (CKD) Assessment & Plan: Hgb below goal of 10-11 g, will given EPO if BP remains controlled; Status: Chronic (5) CKD (chronic kidney disease) stage 4, GFR 15-29 ml/min Assessment & Plan: Renal function overall worsened in the setting of BP fluctuations, no indication for HD yet; will plan for outpatient AVF placement once off IV abx; Status: Chronic (6) Osteomyelitis Assessment & Plan: On IV abx, recommend to avoid PICC line in patient who will likely need HD for many years; consider tunneled IJ port if home IV abx needed; Status: Suspected
--- NOTE | 2017-07-24 23:15 | PN ---
DATE: SUBJECTIVE: The patient seen and examined. Interim events noted. Consults noted and appreciated. Nephrology follow up and intervention noted and appreciated. The patient remains in transitional care unit. The patient feels okay. Denies any chest pain or shortness of breath. PHYSICAL EXAMINATION GENERAL: The patient is in no acute distress. VITAL SIGNS: Stable. HEART: S1 and S2 normal and regular. LUNGS: Good bilateral air exchange. ABDOMEN: Soft and nontender. BACK: The patient has chronic peripheral vascular disease. EXTREMITIES: No edema. No calf swelling. No tenderness. No acute ischemia. CENTRAL NERVOUS SYSTEM: Essentially unchanged. DIAGNOSTIC DATA: Available diagnostic data reviewed, . ASSESSMENT AND PLAN: Overall, the patient is clinically stable. Plan as ordered. Joel Lake MD
[2017-07-25] MEDS: AZTREONAM IVPB SCH ×2 (05:48→18:18)
[2017-07-25] MEDS: NS IVPB SCH ×2 (05:48→18:18)
[2017-07-25] MEDS: Insulin Regular 100 units/ml SC SCH ×4 (07:15→21:36)
--- NOTE | 2017-07-25 08:08 | CP.PCM.PN ---
Subjective - Date & Time of Evaluation Date of Evaluation: 07/25/17 Time of Evaluation: 08:06 - Subjective Subjective: Podiatry- Dr. 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 Patient seen laying comfortably at bedside, AA0x3, and in NAD. Dressing is clean and intact with minimal serous strikethrough noted at this time. Denies acute events overnight. States that he is able to walk in his SPO[place] boot more and more each day and that he has been going to therapy daily which he says is going well. States that overall he feels greatly improved. Denies pain to ulceration. Denies any further pedal complaints at this time. Denies N/V/F/C/CP/SOB Objective - Vital Signs/Intake and Output Vital Signs (last 24 hours): Temp Pulse Resp BP Pulse Ox 97 F L 70 20 140/77 100 07/24/17 20:49 07/24/17 20:49 07/24/17 20:49 07/25/17 05:52 07/24/17 20:49 - Medications Medications: Current Medications Acetaminophen (Tylenol 325mg Tab) 650 mg PO Q6 PRN PRN Reason: Pain, moderate (4-7) Last Admin: 07/21/17 21:55 Dose: 650 mg Allopurinol (Zyloprim) 100 mg PO DAILY [facility] Last Admin: 07/24/17 09:12 Dose: 100 mg Amlodipine Besylate (Norvasc) 10 mg PO DAILY [facility] Last Admin: 07/24/17 09:16 Dose: 10 mg Bupropion HCl (Wellbutrin) 75 mg PO BID [facility] Last Admin: 07/24/17 09:12 Dose: 75 mg Calcitriol (Rocaltrol) 0.25 mcg PO MWF [facility] Last Admin: 07/24/17 09:13 Dose: 0.25 mcg Calcium Acetate (Phoslo) 1,334 mg PO WM@0900,1300,1700 [facility] Last Admin: 07/24/17 17:11 Dose: 1,334 mg Clonidine HCl (Catapres) 0.3 mg PO Q8 [facility] Last Admin: 07/25/17 01:55 Dose: Not Given Ferrous Sulfate (Feosol) 325 mg PO BID [facility] Last Admin: 07/24/17 17:10 Dose: 325 mg Fludrocortisone Acetate (Florinef) 0.05 mg PO QOTHERDAY [facility] Folic Acid (Folic Acid) 1 mg PO DAILY [facility] Last Admin: 07/24/17 09:11 Dose: 1 mg Furosemide (Lasix) 20 mg PO DAILY@1700 [facility] Last Admin: 07/21/17 17:10 Dose: 20 mg Furosemide (Lasix) 40 mg PO DAILY [facility] Last Admin: 07/22/17 08:59 Dose: 40 mg Gabapentin (Neurontin) 100 mg PO TID [facility] Last Admin: 07/24/17 17:10 Dose: 100 mg Glipizide (Glucotrol Xl) 10 mg PO BID [facility] Last Admin: 07/24/17 17:12 Dose: 10 mg Heparin Sodium (Porcine) (Heparin) 5,000 units SC Q12 [facility] PRN Reason: Protocol Last Admin: 07/24/17 21:54 Dose: 5,000 units Hydralazine HCl (Apresoline) 100 mg PO Q6H [facility] Last Admin: 07/25/17 05:52 Dose: 100 mg Aztreonam 1 gm/ Sodium (Chloride) 100 mls @ 100 mls/hr IVPB Q12@0500,1700 [facility] Last Admin: 07/25/17 05:48 Dose: 100 mls/hr Daptomycin 680 mg/ Sodium (Chloride) 100 mls @ 100 mls/hr IVPB QOTHERDAY [facility] Last Admin: 07/24/17 17:08 Dose: 100 mls/hr Insulin Human Regular (Humulin R) 0 units SC ACHS [facility] PRN Reason: Protocol Last Admin: 07/25/17 07:15 Dose: 2 units Labetalol HCl (Trandate) 200 mg PO BID [facility] Last Admin: 07/20/17 09:05 Dose: Not Given Magnesium Oxide (Mag-Ox) 400 mg PO BID [facility] Last Admin: 07/24/17 17:10 Dose: 400 mg Multivitamins/Minerals (Therapeutic-M Tab) 1 tab PO DAILY [facility] Last Admin: 07/24/17 09:10 Dose: 1 tab Mupirocin (Bactroban Ointment) 1 applic TOP BID [facility] Last Admin: 07/24/17 17:12 Dose: Not Given Pantoprazole Sodium (Protonix Ec Tab) 40 mg PO DAILY [facility] Last Admin: 07/24/17 09:14 Dose: 40 mg Pentoxifylline (Pentoxil) 400 mg PO BID [facility] Last Admin: 07/24/17 17:11 Dose: 400 mg Sitagliptin Phosphate (Januvia) 25 mg PO DAILY [facility] Last Admin: 07/24/17 09:13 Dose: 25 mg Sodium Bicarbonate (Sodium Bicarbonate Tab) 650 mg PO BID [facility] Last Admin: 07/24/17 17:10 Dose: 650 mg Sodium Polystyrene Sulfonate (Kayexalate Oral Susp) 15 gm PO DAILY@1200 [facility] Last Admin: 07/24/17 12:18 Dose: 15 gm Vitamin D (Vitamin D 400 Intl Units Tab) 400 intlu PO DAILY [facility] Last Admin: 07/24/17 09:12 Dose: 400 intlu - Labs Labs: 07/23/17 06:00 07/24/17 06:30 - Constitutional Appears: Well, Non-toxic, No Acute Distress - Extremities Exam Additional comments: LE focused exam: Vasc: DP pulses nonpalpable b/l. PT pulses palpable 1/4 b/l. Diffused edema noted to RLE. Skin temperature warm to warm from proximal to distal stump. Neuro: Epicritic and protective sensation grossly diminished b/l Derm: Ulceration noted to lateral aspect of right foot measuring roughly 2.5 cm x 0.5 cm x 0.4 cm with granular base and fibrotic border with minimal maceration noted to periwound area. No serous drainage noted today. No malodor, purulence, periwound erythema or other clinical infection noted at this time. 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 No POP noted to ulceration site - Neurological Exam Neurological Exam: Alert, Awake, Oriented x3 - Psychiatric Exam Psychiatric exam: Normal Affect, Normal Mood Assessment and Plan - Assessment and Plan (Free Text) Assessment: 45 year old male with PMH of CKD, OM Right foot, DM II with Neuropathy, bilateral Charcot with right plantar ulceration secondary to DM and Charcot deformity Plan: Patient seen and evaluated at bedside. Discussed plan with covering attending, Dr. Vasquez Charts, labs and vitals reviewed; afebrile Dressing changed with DSD with macerated tissue painted with betadine Continue IV abx per ID. Pt to be full weightbearing to tolerance with use of SPOKANE Walker to right lower extremity. Patient to remain in TCU until 07/29 to finish ten day course of abx per ID Podiatry to continue to follow while in house
[2017-07-25] MEDS: Pantoprazole 40 mg EC Tab PO SCH (08:57)
[2017-07-25] MEDS: Magnesium Oxide 400 mg Tab UD PO SCH ×2 (08:57→18:17)
[2017-07-25] MEDS: Multivitamin With Minerals Tab PO SCH (08:57)
[2017-07-25] MEDS: GlipiZIDE 10 mg SR Tab PO SCH ×2 (08:58→18:17)
[2017-07-25] MEDS: Cholecalciferol 400 Intl Units Tab PO SCH (09:00)
[2017-07-25 09:12] LABS: POTASSIUM 5.2 MMOL/L (3.6-5.0)
--- NOTE | 2017-07-25 14:08 | PN ---
DATE: 07/25/2017 SUBJECTIVE: The patient seen and examined. Interim events noted. Consults noted and appreciated. Podiatry and infectious disease followup and intervention noted and appreciated. The patient remains in transitional care unit. The patient feels okay. Denies any . PHYSICAL EXAMINATION GENERAL: The patient is in no acute distress. VITAL SIGNS: Stable. HEART: S1 and S2 normal, regular. LUNGS: Good bilateral air exchange. ABDOMEN: Soft and nontender. EXTREMITIES: The patient is status post amputation and has osteomyelitis. No edema. No calf swelling or tenderness. No acute ischemia. CENTRAL NERVOUS SYSTEM: Essentially unchanged. LABORATORY DATA: Available diagnostic data reviewed. ASSESSMENT: Overall, the patient's general medical condition is stable. PLAN: As ordered. Joel Lake MD R
[2017-07-25] MEDS: Sod Polystyrene Sulf 15 gm/60 ml Oral Susp PO SCH (15:36)
--- NOTE | 2017-07-25 22:31 | CP.PCM.PN ---
Subjective - Date & Time of Evaluation Date of Evaluation: 07/25/17 Time of Evaluation: 19:00 - Subjective Subjective: Denies shortness of breath; Objective - Vital Signs/Intake and Output Vital Signs (last 24 hours): Temp Pulse Resp BP Pulse Ox 97.3 F L 71 20 161/86 H 99 07/25/17 21:04 07/25/17 21:04 07/25/17 21:04 07/25/17 21:26 07/25/17 21:04 - Medications Medications: Current Medications Acetaminophen (Tylenol 325mg Tab) 650 mg PO Q6 PRN PRN Reason: Pain, moderate (4-7) Last Admin: 07/21/17 21:55 Dose: 650 mg Allopurinol (Zyloprim) 100 mg PO DAILY [facility] Last Admin: 07/25/17 08:58 Dose: 100 mg Amlodipine Besylate (Norvasc) 10 mg PO DAILY [facility] Last Admin: 07/25/17 08:59 Dose: 10 mg Bupropion HCl (Wellbutrin) 75 mg PO BID [facility] Last Admin: 07/25/17 18:23 Dose: 75 mg Calcitriol (Rocaltrol) 0.25 mcg PO MWF [facility] Last Admin: 07/24/17 09:13 Dose: 0.25 mcg Calcium Acetate (Phoslo) 1,334 mg PO WM@0900,1300,1700 [facility] Last Admin: 07/25/17 18:19 Dose: 1,334 mg Clonidine HCl (Catapres) 0.3 mg PO Q8 [facility] Last Admin: 07/25/17 18:18 Dose: 0.3 mg Ferrous Sulfate (Feosol) 325 mg PO BID [facility] Last Admin: 07/25/17 18:17 Dose: 325 mg Fludrocortisone Acetate (Florinef) 0.05 mg PO QOTHERDAY [facility] Last Admin: 07/25/17 15:35 Dose: 0.05 mg Folic Acid (Folic Acid) 1 mg PO DAILY [facility] Last Admin: 07/25/17 08:58 Dose: 1 mg Furosemide (Lasix) 20 mg PO DAILY@1700 [facility] Last Admin: 07/25/17 18:21 Dose: 20 mg Furosemide (Lasix) 40 mg PO DAILY [facility] Last Admin: 07/25/17 08:58 Dose: 40 mg Gabapentin (Neurontin) 100 mg PO TID [facility] Last Admin: 07/25/17 18:21 Dose: 100 mg Glipizide (Glucotrol Xl) 10 mg PO BID [facility] Last Admin: 07/25/17 18:17 Dose: 10 mg Heparin Sodium (Porcine) (Heparin) 5,000 units SC Q12 [facility] PRN Reason: Protocol Last Admin: 07/25/17 21:25 Dose: 5,000 units Hydralazine HCl (Apresoline) 100 mg PO Q6H [facility] Last Admin: 07/25/17 18:19 Dose: 100 mg Aztreonam 1 gm/ Sodium (Chloride) 100 mls @ 100 mls/hr IVPB Q12@0500,1700 [facility] Last Admin: 07/25/17 18:18 Dose: 100 mls/hr Daptomycin 680 mg/ Sodium (Chloride) 100 mls @ 100 mls/hr IVPB QOTHERDAY [facility] Last Admin: 07/24/17 17:08 Dose: 100 mls/hr Insulin Human Regular (Humulin R) 0 units SC ACHS [facility] PRN Reason: Protocol Last Admin: 07/25/17 21:36 Dose: Not Given Labetalol HCl (Trandate) 200 mg PO BID [facility] Last Admin: 07/20/17 09:05 Dose: Not Given Magnesium Oxide (Mag-Ox) 400 mg PO BID [facility] Last Admin: 07/25/17 18:17 Dose: 400 mg Multivitamins/Minerals (Therapeutic-M Tab) 1 tab PO DAILY [facility] Last Admin: 07/25/17 08:57 Dose: 1 tab Mupirocin (Bactroban Ointment) 1 applic TOP BID [facility] Last Admin: 07/25/17 18:20 Dose: Not Given Pantoprazole Sodium (Protonix Ec Tab) 40 mg PO DAILY [facility] Last Admin: 07/25/17 08:57 Dose: 40 mg Pentoxifylline (Pentoxil) 400 mg PO BID [facility] Last Admin: 07/25/17 18:21 Dose: 400 mg Sitagliptin Phosphate (Januvia) 25 mg PO DAILY [facility] Last Admin: 07/25/17 08:57 Dose: 25 mg Sodium Bicarbonate (Sodium Bicarbonate Tab) 650 mg PO BID [facility] Last Admin: 07/25/17 18:17 Dose: 650 mg Sodium Polystyrene Sulfonate (Kayexalate Oral Susp) 15 gm PO DAILY@1200 [facility] Last Admin: 08/24/17 15:36 Dose: 15 gm Vitamin D (Vitamin D 400 Intl Units Tab) 400 intlu PO DAILY [facility] Last Admin: 07/25/17 09:00 Dose: 400 intlu - Labs Labs: 07/23/17 06:00 07/25/17 08:40 - Constitutional Appears: Non-toxic, No Acute Distress - Head Exam Head Exam: NORMAL INSPECTION - Eye Exam Eye Exam: Normal appearance - ENT Exam ENT Exam: Mucous Membranes Moist - Respiratory Exam Respiratory Exam: Clear to Ausculation Bilateral, NORMAL BREATHING PATTERN - Cardiovascular Exam Cardiovascular Exam: RRR, +S1, +S2 - GI/Abdominal Exam GI & Abdominal Exam: Soft. absent: Distended, Tenderness - Extremities Exam Additional comments: moderate lower leg edema; - Neurological Exam Neurological Exam: Alert, Awake - Psychiatric Exam Psychiatric exam: Normal Affect, Normal Mood - Skin Skin Exam: Normal Color, Warm. absent: Cyanosis Assessment and Plan (1) Hyperkalemia Assessment & Plan: Improved; continue daily kayexalate; Status: Acute (2) Hypertensive CKD (chronic kidney disease) Assessment & Plan: Improved with addition of hydralazine 100 mg qid; continue rest of anti-htn meds ; Status: Acute (3) Chronic kidney disease-mineral and bone disorder Assessment & Plan: Secondary hyperparathyroidism, hyperphosphatemia; continue calcitriol 0.25 mcg qMWF and phoslo 2 tabs w/ meals; Status: Acute (4) Anemia in chronic kidney disease (CKD) Assessment & Plan: Iron replete, hgb relatively stable; will monitor BP before giving EPO; Status: Chronic (5) CKD (chronic kidney disease) stage 4, GFR 15-29 ml/min Assessment & Plan: Relatively stable renal function; monitor periodically; avoid nephrotoxic meds; Status: Chronic (6) Osteomyelitis Status: Suspected
[2017-07-26] MEDS: AZTREONAM IVPB SCH ×2 (05:21→18:49)
[2017-07-26] MEDS: NS IVPB SCH ×2 (05:21→18:49)
[2017-07-26 07:16] LABS: CALCIUM 9.2 mg/dL (8.4-10.2); POTASSIUM 4.8 MMOL/L (3.6-5.0)
--- NOTE | 2017-07-26 07:24 | CP.PCM.PN ---
Subjective - Date & Time of Evaluation Date of Evaluation: 07/26/17 Time of Evaluation: 07:21 - Subjective Subjective: Podiatry- Dr. 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 Patient seen laying comfortably at bedside, AA0x3, and in NAD. Dressing is clean and intact with minimal serous strikethrough noted at this time. Mild malodor is appreciated. Denies acute events overnight. States that he continues to make improvements daily in therapy. States that overall he feels improved. Denies pain to ulceration. Denies any further pedal complaints at this time. Denies N/V /F/C/CP/SOB Objective - Vital Signs/Intake and Output Vital Signs (last 24 hours): Temp Pulse Resp BP Pulse Ox 97.3 F L 71 20 124/72 99 07/25/17 21:04 07/25/17 21:04 07/25/17 21:04 07/26/17 05:22 07/25/17 21:04 - Medications Medications: Current Medications Acetaminophen (Tylenol 325mg Tab) 650 mg PO Q6 PRN PRN Reason: Pain, moderate (4-7) Last Admin: 07/21/17 21:55 Dose: 650 mg Allopurinol (Zyloprim) 100 mg PO DAILY [facility] Last Admin: 07/25/17 08:58 Dose: 100 mg Amlodipine Besylate (Norvasc) 10 mg PO DAILY [facility] Last Admin: 07/25/17 08:59 Dose: 10 mg Bupropion HCl (Wellbutrin) 75 mg PO BID [facility] Last Admin: 07/25/17 18:23 Dose: 75 mg Calcitriol (Rocaltrol) 0.25 mcg PO MWF [facility] Last Admin: 07/24/17 09:13 Dose: 0.25 mcg Calcium Acetate (Phoslo) 1,334 mg PO WM@0900,1300,1700 [facility] Last Admin: 07/25/17 18:19 Dose: 1,334 mg Clonidine HCl (Catapres) 0.3 mg PO Q8 [facility] Last Admin: 07/26/17 00:21 Dose: 0.3 mg Ferrous Sulfate (Feosol) 325 mg PO BID [facility] Last Admin: 07/25/17 18:17 Dose: 325 mg Fludrocortisone Acetate (Florinef) 0.05 mg PO QOTHERDAY [facility] Last Admin: 07/25/17 15:35 Dose: 0.05 mg Folic Acid (Folic Acid) 1 mg PO DAILY [facility] Last Admin: 07/25/17 08:58 Dose: 1 mg Furosemide (Lasix) 20 mg PO DAILY@1700 [facility] Last Admin: 07/25/17 18:21 Dose: 20 mg Furosemide (Lasix) 40 mg PO DAILY [facility] Last Admin: 07/25/17 08:58 Dose: 40 mg Gabapentin (Neurontin) 100 mg PO TID [facility] Last Admin: 07/25/17 18:21 Dose: 100 mg Glipizide (Glucotrol Xl) 10 mg PO BID [facility] Last Admin: 07/25/17 18:17 Dose: 10 mg Heparin Sodium (Porcine) (Heparin) 5,000 units SC Q12 [facility] PRN Reason: Protocol Last Admin: 07/25/17 21:25 Dose: 5,000 units Hydralazine HCl (Apresoline) 100 mg PO Q6H [facility] Last Admin: 07/26/17 05:22 Dose: 100 mg Aztreonam 1 gm/ Sodium (Chloride) 100 mls @ 100 mls/hr IVPB Q12@0500,1700 [facility] Last Admin: 07/26/17 05:21 Dose: 100 mls/hr Daptomycin 680 mg/ Sodium (Chloride) 100 mls @ 100 mls/hr IVPB QOTHERDAY [facility] Last Admin: 07/24/17 17:08 Dose: 100 mls/hr Insulin Human Regular (Humulin R) 0 units SC ACHS [facility] PRN Reason: Protocol Last Admin: 07/25/17 21:36 Dose: Not Given Labetalol HCl (Trandate) 200 mg PO BID [facility] Last Admin: 07/20/17 09:05 Dose: Not Given Magnesium Oxide (Mag-Ox) 400 mg PO BID [facility] Last Admin: 07/25/17 18:17 Dose: 400 mg Multivitamins/Minerals (Therapeutic-M Tab) 1 tab PO DAILY [facility] Last Admin: 07/25/17 08:57 Dose: 1 tab Mupirocin (Bactroban Ointment) 1 applic TOP BID [facility] Last Admin: 07/25/17 18:20 Dose: Not Given Pantoprazole Sodium (Protonix Ec Tab) 40 mg PO DAILY [facility] Last Admin: 07/25/17 08:57 Dose: 40 mg Pentoxifylline (Pentoxil) 400 mg PO BID [facility] Last Admin: 07/25/17 18:21 Dose: 400 mg Sitagliptin Phosphate (Januvia) 25 mg PO DAILY [facility] Last Admin: 07/25/17 08:57 Dose: 25 mg Sodium Bicarbonate (Sodium Bicarbonate Tab) 650 mg PO BID [facility] Last Admin: 07/25/17 18:17 Dose: 650 mg Sodium Polystyrene Sulfonate (Kayexalate Oral Susp) 15 gm PO DAILY@1200 [facility] Last Admin: 07/25/17 15:36 Dose: 15 gm Vitamin D (Vitamin D 400 Intl Units Tab) 400 intlu PO DAILY [facility] Last Admin: 07/25/17 09:00 Dose: 400 intlu - Labs Labs: 07/23/17 06:00 07/25/17 08:40 - Constitutional Appears: Well, Non-toxic, No Acute Distress - Extremities Exam Additional comments: LE focused exam: Vasc: DP pulses nonpalpable b/l. PT pulses palpable 1/4 b/l. Diffused edema noted to RLE. Skin temperature warm to warm from proximal to distal stump. Neuro: Epicritic and protective sensation grossly diminished b/l Derm: Ulceration noted to lateral aspect of right foot measuring roughly 2.5 cm x 0.5 cm x 0.4 cm with granular base and fibrotic border with minimal maceration noted to periwound area. Minimal serous drainage with some malodor noted today. No purulence, periwound erythema or other clinical infection noted at this time. 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 No POP noted to ulceration site - Neurological Exam Neurological Exam: Alert, Awake, Oriented x3 - Psychiatric Exam Psychiatric exam: Normal Affect, Normal Mood Assessment and Plan - Assessment and Plan (Free Text) Assessment: 45 year old male with PMH of CKD, OM Right foot, DM II with Neuropathy, bilateral Charcot with right plantar ulceration secondary to DM and Charcot deformity Plan: Patient seen and evaluated at bedside. Discussed plan with covering attending, Dr. Vasquez Charts, labs and vitals reviewed; afebrile Dressing changed with Mupirocin ointment to wound, betadine to macerated tissue , DSD and DAVID Continue IV abx per ID- day 7 of 10 Pt to be full weightbearing to tolerance with use of [place] to right lower extremity. Patient to remain in TCU until 07/29 to finish ten day course of abx per ID Podiatry to continue to follow while in house
[2017-07-26] MEDS: Insulin Regular 100 units/ml SC SCH ×4 (07:30→21:53)
[2017-07-26] MEDS: Magnesium Oxide 400 mg Tab UD PO SCH ×2 (09:22→16:58)
[2017-07-26] MEDS: Cholecalciferol 400 Intl Units Tab PO SCH (09:23)
[2017-07-26] MEDS: Pantoprazole 40 mg EC Tab PO SCH (09:24)
[2017-07-26] MEDS: Multivitamin With Minerals Tab PO SCH (09:25)
[2017-07-26] MEDS: GlipiZIDE 10 mg SR Tab PO SCH ×2 (09:26→16:59)
--- NOTE | 2017-07-26 12:38 | PN ---
DATE: 07/26/2017 SUBJECTIVE: The patient seen and examined. Interim events noted. Consult noted, appreciated. Nephrology followup and intervention noted and appreciated. The patient remains in transitional care unit, denies any specific complaint of chest pain or shortness of breath. PHYSICAL EXAMINATION GENERAL: The patient is in no acute distress. VITAL SIGNS: Stable. HEART: S1 and S2 normal, regular. LUNGS: Good bilateral air exchange. ABDOMEN: Soft, nontender. EXTREMITIES: No edema. No calf swelling or tenderness. No acute ischemia. The patient is status post amputation and osteomyelitis. CENTRAL NERVOUS SYSTEM: Essentially unchanged. LABORATORY DATA: Available diagnostic data reviewed. ASSESSMENT: Overall, the patient's general medical condition is stable. PLAN: As ordered. Joel Lake MD
[2017-07-26] MEDS: Sod Polystyrene Sulf 15 gm/60 ml Oral Susp PO SCH (12:51)
--- NOTE | 2017-07-26 13:54 | CP.PCM.PN ---
Subjective - Date & Time of Evaluation Date of Evaluation: 07/26/17 Time of Evaluation: 08:00 - Subjective Subjective: improving slowly iv rx reordered Objective - Vital Signs/Intake and Output Vital Signs (last 24 hours): Temp Pulse Resp BP Pulse Ox 97.3 F L 84 20 157/91 H 96 07/26/17 09:07 07/26/17 12:51 07/26/17 09:07 07/26/17 12:51 07/26/17 09:07 - Medications Medications: Current Medications Acetaminophen (Tylenol 325mg Tab) 650 mg PO Q6 PRN PRN Reason: Pain, moderate (4-7) Last Admin: 07/21/17 21:55 Dose: 650 mg Allopurinol (Zyloprim) 100 mg PO DAILY [facility] Last Admin: 07/26/17 09:26 Dose: 100 mg Amlodipine Besylate (Norvasc) 10 mg PO DAILY [facility] Last Admin: 07/26/17 09:26 Dose: 10 mg Bupropion HCl (Wellbutrin) 75 mg PO BID [facility] Last Admin: 07/26/17 09:24 Dose: 75 mg Calcitriol (Rocaltrol) 0.25 mcg PO MWF [facility] Last Admin: 07/26/17 09:35 Dose: 0.25 mcg Calcium Acetate (Phoslo) 1,334 mg PO WM@0900,1300,1700 [facility] Last Admin: 07/26/17 12:53 Dose: 1,334 mg Clonidine HCl (Catapres) 0.3 mg PO Q8 [facility] Last Admin: 07/26/17 09:23 Dose: 0.3 mg Ferrous Sulfate (Feosol) 325 mg PO BID [facility] Last Admin: 07/26/17 09:23 Dose: 325 mg Fludrocortisone Acetate (Florinef) 0.05 mg PO QOTHERDAY [facility] Last Admin: 07/25/17 15:35 Dose: 0.05 mg Folic Acid (Folic Acid) 1 mg PO DAILY [facility] Last Admin: 07/26/17 09:24 Dose: 1 mg Furosemide (Lasix) 20 mg PO DAILY@1700 [facility] Last Admin: 07/25/17 18:21 Dose: 20 mg Furosemide (Lasix) 40 mg PO DAILY [facility] Last Admin: 07/26/17 09:23 Dose: 40 mg Gabapentin (Neurontin) 100 mg PO TID [facility] Last Admin: 07/26/17 12:52 Dose: 100 mg Glipizide (Glucotrol Xl) 10 mg PO BID [facility] Last Admin: 07/26/17 09:26 Dose: 10 mg Heparin Sodium (Porcine) (Heparin) 5,000 units SC Q12 [facility] PRN Reason: Protocol Last Admin: 07/26/17 09:25 Dose: 5,000 units Hydralazine HCl (Apresoline) 100 mg PO Q6H [facility] Last Admin: 07/26/17 12:51 Dose: 100 mg Aztreonam 1 gm/ Sodium (Chloride) 100 mls @ 100 mls/hr IVPB Q12@0500,1700 [facility] Last Admin: 07/26/17 05:21 Dose: 100 mls/hr Daptomycin 680 mg/ Sodium (Chloride) 100 mls @ 100 mls/hr IVPB QOTHERDAY [facility] Last Admin: 07/24/17 17:08 Dose: 100 mls/hr Insulin Human Regular (Humulin R) 0 units SC ACHS [facility] PRN Reason: Protocol Last Admin: 07/26/17 11:30 Dose: 4 units Labetalol HCl (Trandate) 200 mg PO BID [facility] Last Admin: 07/20/17 09:05 Dose: Not Given Magnesium Oxide (Mag-Ox) 400 mg PO BID [facility] Last Admin: 07/26/17 09:22 Dose: 400 mg Multivitamins/Minerals (Therapeutic-M Tab) 1 tab PO DAILY [facility] Last Admin: 07/26/17 09:25 Dose: 1 tab Mupirocin (Bactroban Ointment) 1 applic TOP BID [facility] Last Admin: 07/26/17 09:29 Dose: Not Given Pantoprazole Sodium (Protonix Ec Tab) 40 mg PO DAILY [facility] Last Admin: 07/26/17 09:24 Dose: 40 mg Pentoxifylline (Pentoxil) 400 mg PO BID [facility] Last Admin: 07/26/17 09:25 Dose: 400 mg Sitagliptin Phosphate (Januvia) 25 mg PO DAILY [facility] Last Admin: 07/26/17 09:22 Dose: 25 mg Sodium Bicarbonate (Sodium Bicarbonate Tab) 650 mg PO BID [facility] Last Admin: 07/26/17 09:35 Dose: 650 mg Sodium Polystyrene Sulfonate (Kayexalate Oral Susp) 15 gm PO DAILY@1200 [facility] Last Admin: 08/25/17 12:51 Dose: 15 gm Vitamin D (Vitamin D 400 Intl Units Tab) 400 intlu PO DAILY [facility] Last Admin: 07/26/17 09:23 Dose: 400 intlu - Labs Labs: 07/23/17 06:00 07/26/17 06:56 - Constitutional Appears: Non-toxic, Chronically Ill - Head Exam Head Exam: NORMOCEPHALIC - Eye Exam Eye Exam: absent: Scleral icterus - ENT Exam ENT Exam: Mucous Membranes Dry - Neck Exam Neck Exam: absent: Lymphadenopathy - Respiratory Exam Respiratory Exam: Decreased Breath Sounds - Cardiovascular Exam Cardiovascular Exam: REGULAR RHYTHM - GI/Abdominal Exam GI & Abdominal Exam: Distended, Soft Assessment and Plan (1) Cellulitis of right foot Status: Acute - Assessment and Plan (Free Text) Assessment: cont rx prognosis guarded
--- NOTE | 2017-07-26 17:55 | CP.PCM.PN ---
Subjective - Date & Time of Evaluation Date of Evaluation: 07/26/17 Time of Evaluation: 18:00 - Subjective Subjective: Denies any shortness of breath; Objective - Vital Signs/Intake and Output Vital Signs (last 24 hours): Temp Pulse Resp BP Pulse Ox 96.8 F L 77 20 154/104 H 98 07/26/17 17:27 07/26/17 17:27 07/26/17 17:27 07/26/17 17:27 07/26/17 17:27 - Medications Medications: Current Medications Acetaminophen (Tylenol 325mg Tab) 650 mg PO Q6 PRN PRN Reason: Pain, moderate (4-7) Last Admin: 07/21/17 21:55 Dose: 650 mg Allopurinol (Zyloprim) 100 mg PO DAILY [facility] Last Admin: 07/26/17 09:26 Dose: 100 mg Amlodipine Besylate (Norvasc) 10 mg PO DAILY [facility] Last Admin: 07/26/17 09:26 Dose: 10 mg Bupropion HCl (Wellbutrin) 75 mg PO BID [facility] Last Admin: 07/26/17 16:59 Dose: 75 mg Calcitriol (Rocaltrol) 0.25 mcg PO MWF [facility] Last Admin: 07/26/17 09:35 Dose: 0.25 mcg Calcium Acetate (Phoslo) 1,334 mg PO WM@0900,1300,1700 [facility] Last Admin: 07/26/17 16:59 Dose: 1,334 mg Clonidine HCl (Catapres) 0.3 mg PO Q8 [facility] Last Admin: 07/26/17 16:58 Dose: 0.3 mg Ferrous Sulfate (Feosol) 325 mg PO BID [facility] Last Admin: 07/26/17 16:59 Dose: 325 mg Fludrocortisone Acetate (Florinef) 0.05 mg PO QOTHERDAY [facility] Last Admin: 07/25/17 15:35 Dose: 0.05 mg Folic Acid (Folic Acid) 1 mg PO DAILY [facility] Last Admin: 07/26/17 09:24 Dose: 1 mg Furosemide (Lasix) 20 mg PO DAILY@1700 [facility] Last Admin: 07/26/17 17:00 Dose: 20 mg Furosemide (Lasix) 40 mg PO DAILY [facility] Last Admin: 07/26/17 09:23 Dose: 40 mg Gabapentin (Neurontin) 100 mg PO TID [facility] Last Admin: 07/26/17 16:59 Dose: 100 mg Glipizide (Glucotrol Xl) 10 mg PO BID [facility] Last Admin: 07/26/17 16:59 Dose: 10 mg Heparin Sodium (Porcine) (Heparin) 5,000 units SC Q12 [facility] PRN Reason: Protocol Last Admin: 07/26/17 09:25 Dose: 5,000 units Hydralazine HCl (Apresoline) 100 mg PO Q6H [facility] Last Admin: 07/26/17 17:05 Dose: 100 mg Aztreonam 1 gm/ Sodium (Chloride) 100 mls @ 100 mls/hr IVPB Q12@0500,1700 [facility] Last Admin: 07/26/17 05:21 Dose: 100 mls/hr Daptomycin 680 mg/ Sodium (Chloride) 100 mls @ 100 mls/hr IVPB QOTHERDAY [facility] Last Admin: 07/26/17 16:57 Dose: 100 mls/hr Insulin Human Regular (Humulin R) 0 units SC ACHS [facility] PRN Reason: Protocol Last Admin: 07/26/17 17:01 Dose: Not Given Labetalol HCl (Trandate) 200 mg PO BID [facility] Last Admin: 07/20/17 09:05 Dose: Not Given Magnesium Oxide (Mag-Ox) 400 mg PO BID [facility] Last Admin: 07/26/17 16:58 Dose: 400 mg Multivitamins/Minerals (Therapeutic-M Tab) 1 tab PO DAILY [facility] Last Admin: 07/26/17 09:25 Dose: 1 tab Mupirocin (Bactroban Ointment) 1 applic TOP BID [facility] Last Admin: 07/26/17 16:59 Dose: Not Given Pantoprazole Sodium (Protonix Ec Tab) 40 mg PO DAILY [facility] Last Admin: 07/26/17 09:24 Dose: 40 mg Pentoxifylline (Pentoxil) 400 mg PO BID [facility] Last Admin: 07/26/17 16:58 Dose: 400 mg Sitagliptin Phosphate (Januvia) 25 mg PO DAILY [facility] Last Admin: 07/26/17 09:22 Dose: 25 mg Sodium Bicarbonate (Sodium Bicarbonate Tab) 650 mg PO BID [facility] Last Admin: 07/26/17 16:58 Dose: 650 mg Sodium Polystyrene Sulfonate (Kayexalate Oral Susp) 15 gm PO DAILY@1200 [facility] Last Admin: 07/26/17 12:51 Dose: 15 gm Vitamin D (Vitamin D 400 Intl Units Tab) 400 intlu PO DAILY [facility] Last Admin: 07/26/17 09:23 Dose: 400 intlu - Labs Labs: 07/23/17 06:00 07/26/17 06:56 - Constitutional Appears: Non-toxic, No Acute Distress - Head Exam Head Exam: NORMAL INSPECTION - Eye Exam Eye Exam: Normal appearance - ENT Exam ENT Exam: Mucous Membranes Moist - Respiratory Exam Respiratory Exam: Clear to Ausculation Bilateral, NORMAL BREATHING PATTERN - Cardiovascular Exam Cardiovascular Exam: RRR, +S1, +S2 - GI/Abdominal Exam GI & Abdominal Exam: Soft. absent: Distended, Tenderness - Extremities Exam Extremities Exam: Normal Capillary Refill Additional comments: Moderate lower leg edema R >> L; - Neurological Exam Neurological Exam: Alert, Awake - Psychiatric Exam Psychiatric exam: Normal Affect, Normal Mood - Skin Skin Exam: Normal Color, Warm. absent: Cyanosis Assessment and Plan (1) Hyperkalemia Assessment & Plan: Controlled with medical management including daily kayexalate; received florinef 0.05 mg dose yesterday, will continue every other day although need to watch for volume overload; Status: Acute (2) Hypertensive CKD (chronic kidney disease) Assessment & Plan: Better controlled with hydralazine 100 mg qid, continue rest of anti-htn meds; Status: Acute (3) Chronic kidney disease-mineral and bone disorder Assessment & Plan: On calcitriol 0.25 mcg qMWF for secondary hyperparathyroidism and phoslo 2 tabs with meals; continue same; Status: Acute (4) Anemia in chronic kidney disease (CKD) Assessment & Plan: Iron replete; hgb stable; will give EPO once htn controlled; Status: Chronic (5) CKD (chronic kidney disease) stage 4, GFR 15-29 ml/min Assessment & Plan: Discussed impending need to initiate HD in the next 6 mo - 1 yr; counseled on need for frequent f/u as outpatient with monthly labs as well as monitoring for uremic symptoms; will arrange for AVF/AVG creation once off abx; Status: Chronic (6) Osteomyelitis Status: Suspected
[2017-07-27] MEDS: NS IVPB SCH ×2 (05:18→18:48)
[2017-07-27] MEDS: AZTREONAM IVPB SCH ×2 (05:18→18:48)
[2017-07-27] MEDS: Insulin Regular 100 units/ml SC SCH ×4 (06:52→21:33)
[2017-07-27] MEDS: GlipiZIDE 10 mg SR Tab PO SCH ×2 (08:18→18:36)
[2017-07-27] MEDS: Magnesium Oxide 400 mg Tab UD PO SCH ×2 (08:26→18:39)
[2017-07-27] MEDS: Pantoprazole 40 mg EC Tab PO SCH (08:29)
[2017-07-27] MEDS: Cholecalciferol 400 Intl Units Tab PO SCH (08:30)
[2017-07-27] MEDS: Multivitamin With Minerals Tab PO SCH (08:30)
--- NOTE | 2017-07-27 09:46 | PN ---
DATE: 07/27/2017 SUBJECTIVE: The patient is seen and examined. Interim events noted. Consults noted, appreciated. Infectious disease followup and intervention noted and appreciated. The patient remains in transitional care unit. The patient feels okay, denies any specific complaint. No chest pain or shortness of breath. PHYSICAL EXAMINATION: GENERAL: The patient is in no acute distress. VITAL SIGNS: Stable. HEART: S1 and S2 normal, regular. LUNGS: Good bilateral air exchange. ABDOMEN: Soft and nontender. EXTREMITIES: The patient is status post osteomyelitis and amputation. No calf swelling. No tenderness. No acute ischemia. CENTRAL NERVOUS SYSTEM: Essentially unchanged. DIAGNOSTIC DATA: Available diagnostic data reviewed. ASSESSMENT: Overall, the patient's general medical condition is stable. The patient is continued on oral antibiotic. PLAN: As ordered. Joel Lake MD
[2017-07-27] MEDS: Sod Polystyrene Sulf 15 gm/60 ml Oral Susp PO SCH (12:17)
--- NOTE | 2017-07-27 14:24 | CP.PCM.PN ---
Subjective - Date & Time of Evaluation Date of Evaluation: 07/27/17 Time of Evaluation: 14:21 - Subjective Subjective: Podiatry- Dr. 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 Patient seen laying comfortably at bedside, AA0x3, and in NAD. Dressing is clean and intact with minimal serous strikethrough noted at this time. Denies acute events overnight. States that he continues to make improvements daily in therapy. States that overall he feels improved and has been walking around on the floor. Denies pain to ulceration. Denies any further pedal complaints at this time. Denies N/V/F/C/CP/SOB Objective - Vital Signs/Intake and Output Vital Signs (last 24 hours): Temp Pulse Resp BP Pulse Ox 97.2 F L 74 20 154/90 H 97 07/27/17 09:13 07/27/17 12:11 07/27/17 09:13 07/27/17 12:11 07/27/17 09:13 - Medications Medications: Current Medications Acetaminophen (Tylenol 325mg Tab) 650 mg PO Q6 PRN PRN Reason: Pain, moderate (4-7) Last Admin: 07/21/17 21:55 Dose: 650 mg Allopurinol (Zyloprim) 100 mg PO DAILY [facility] Last Admin: 07/27/17 08:31 Dose: 100 mg Amlodipine Besylate (Norvasc) 10 mg PO DAILY [facility] Last Admin: 07/27/17 08:27 Dose: 10 mg Bupropion HCl (Wellbutrin) 75 mg PO BID [facility] Last Admin: 07/27/17 08:41 Dose: 75 mg Calcitriol (Rocaltrol) 0.25 mcg PO MWF [facility] Last Admin: 07/26/17 09:35 Dose: 0.25 mcg Calcium Acetate (Phoslo) 1,334 mg PO WM@0900,1300,1700 [facility] Last Admin: 07/27/17 12:18 Dose: 1,334 mg Carvedilol (Coreg) 6.25 mg PO Q12 [facility] Last Admin: 07/27/17 09:15 Dose: 6.25 mg Clonidine HCl (Catapres) 0.3 mg PO Q8 [facility] Last Admin: 07/27/17 08:04 Dose: 0.3 mg Ferrous Sulfate (Feosol) 325 mg PO BID [facility] Last Admin: 07/27/17 08:09 Dose: 325 mg Fludrocortisone Acetate (Florinef) 0.05 mg PO QOTHERDAY [facility] Last Admin: 07/27/17 08:16 Dose: 0.05 mg Folic Acid (Folic Acid) 1 mg PO DAILY [facility] Last Admin: 07/27/17 08:18 Dose: 1 mg Furosemide (Lasix) 20 mg PO DAILY@1700 [facility] Last Admin: 07/26/17 17:00 Dose: 20 mg Furosemide (Lasix) 40 mg PO DAILY [facility] Last Admin: 07/27/17 08:23 Dose: 40 mg Gabapentin (Neurontin) 100 mg PO TID [facility] Last Admin: 07/27/17 12:18 Dose: 100 mg Glipizide (Glucotrol Xl) 10 mg PO BID [facility] Last Admin: 07/27/17 08:18 Dose: 10 mg Heparin Sodium (Porcine) (Heparin) 5,000 units SC Q12 [facility] PRN Reason: Protocol Last Admin: 07/27/17 08:32 Dose: 5,000 units Hydralazine HCl (Apresoline) 100 mg PO Q6H [facility] Last Admin: 07/27/17 12:11 Dose: 100 mg Aztreonam 1 gm/ Sodium (Chloride) 100 mls @ 100 mls/hr IVPB Q12@0500,1700 [facility] Last Admin: 07/27/17 05:18 Dose: 100 mls/hr Daptomycin 680 mg/ Sodium (Chloride) 100 mls @ 100 mls/hr IVPB QOTHERDAY [facility] Last Admin: 07/26/17 16:57 Dose: 100 mls/hr Insulin Human Regular (Humulin R) 0 units SC ACHS [facility] PRN Reason: Protocol Last Admin: 07/27/17 12:16 Dose: 3 units Magnesium Oxide (Mag-Ox) 400 mg PO BID [facility] Last Admin: 07/27/17 08:26 Dose: 400 mg Multivitamins/Minerals (Therapeutic-M Tab) 1 tab PO DAILY [facility] Last Admin: 07/27/17 08:30 Dose: 1 tab Mupirocin (Bactroban Ointment) 1 applic TOP BID [facility] Last Admin: 07/27/17 08:37 Dose: 1 applic Pantoprazole Sodium (Protonix Ec Tab) 40 mg PO DAILY [facility] Last Admin: 07/27/17 08:29 Dose: 40 mg Pentoxifylline (Pentoxil) 400 mg PO BID [facility] Last Admin: 07/27/17 08:28 Dose: 400 mg Sitagliptin Phosphate (Januvia) 25 mg PO DAILY [facility] Last Admin: 07/27/17 08:19 Dose: 25 mg Sodium Bicarbonate (Sodium Bicarbonate Tab) 650 mg PO BID [facility] Last Admin: 07/27/17 08:29 Dose: 650 mg Sodium Polystyrene Sulfonate (Kayexalate Oral Susp) 15 gm PO DAILY@1200 [facility] Last Admin: 07/27/17 12:17 Dose: 15 gm Vitamin D (Vitamin D 400 Intl Units Tab) 400 intlu PO DAILY [facility] Last Admin: 07/27/17 08:30 Dose: 400 intlu - Labs Labs: 07/23/17 06:00 07/26/17 06:56 - Constitutional Appears: Well, Non-toxic, No Acute Distress - Extremities Exam Additional comments: LE focused exam: Vasc: DP pulses nonpalpable b/l. PT pulses palpable 1/4 b/l. Diffused edema noted to RLE. Skin temperature warm to warm from proximal to distal stump. Derm: Ulceration noted to lateral aspect of right foot measuring roughly 2.5 cm x 0.5 cm x 0.4 cm with granular base and fibrotic border with minimal maceration noted to periwound area. Minimal serous drainage with some malodor noted today. No purulence, no fluctuance, periwound erythema or other clinical infection noted at this time. 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 No POP noted to ulceration site - Neurological Exam Neurological Exam: Alert, Awake, Oriented x3 - Psychiatric Exam Psychiatric exam: Normal Affect, Normal Mood Assessment and Plan - Assessment and Plan (Free Text) Assessment: 45 year old male with PMH of CKD, OM Right foot, DM II with Neuropathy, bilateral Charcot with right plantar ulceration secondary to DM and Charcot deformity Plan: Patient seen and evaluated at bedside. Discussed plan with covering attending, Dr. Vasquez Charts, labs and vitals reviewed; afebrile Dressing changed with Mupirocin ointment to wound, betadine to macerated tissue , DSD and DAVID Continue IV abx per ID- day 7 of 10 Pt to be full weightbearing to tolerance with use of [place] Walker to right lower extremity. Patient to remain in TCU until 07/29 to finish ten day course of abx per ID Podiatry to continue to follow while in house
[2017-07-28] MEDS: AZTREONAM IVPB SCH ×2 (05:11→18:13)
[2017-07-28] MEDS: NS IVPB SCH ×2 (05:11→18:13)
[2017-07-28] MEDS: Insulin Regular 100 units/ml SC SCH ×4 (07:05→22:12)
[2017-07-28 07:21] LABS: BASO # 0.1 K/uL (0.0-0.2); BASO % 0.6 % (0.0-2.0); EOS # 0.3 K/uL (0.0-0.7); EOS % 3.1 % (0.0-4.0); HEMATOCRIT 25.6 % (35.0-51.0); MEAN CELL VOLUME 76.7 fl (80.0-94.0); MEAN CORPUSCULAR HEMOGLOBIN 25.5 pg (27.0-31.0); MEAN CORPUSCULAR HGB CONC 33.2 g/dL (33.0-37.0); MEAN PLATELET VOLUME 8.5 fl (7.2-11.7); MONO # 0.6 K/uL (0.0-0.8); MONO % 6.4 % (0.0-10.0); NEUT # 6.7 K/uL (1.8-7.0); NEUT % 68.9 % (50.0-75.0); RED CELL DISTRIBUTION WIDTH 14.5 % (11.5-14.5); WHITE BLOOD COUNT 9.7 K/uL (4.8-10.8)
[2017-07-28 07:35] LABS: ALB/GLOB RATIO 0.9 (1.0-2.1); BILIRUBIN,TOTAL 0.4 mg/dl (0.2-1.3); MAGNESIUM 1.7 MG/DL (1.6-2.3); PHOSPHOROUS 5.1 mg/dl (2.5-4.5); POTASSIUM 4.6 MMOL/L (3.6-5.0); TOTAL PROTEIN 7.1 G/DL (6.3-8.2)
[2017-07-28] MEDS: Pantoprazole 40 mg EC Tab PO SCH (08:50)
[2017-07-28] MEDS: Magnesium Oxide 400 mg Tab UD PO SCH ×2 (08:51→17:20)
[2017-07-28] MEDS: Multivitamin With Minerals Tab PO SCH (08:51)
[2017-07-28] MEDS: Cholecalciferol 400 Intl Units Tab PO SCH (08:51)
[2017-07-28] MEDS: GlipiZIDE 10 mg SR Tab PO SCH ×2 (09:27→17:18)
[2017-07-28] MEDS ORDERED: EPOETIN ALFA 10,000 UNIT/ML ML SC ONE (10:30)
[2017-07-28] MEDS: Sod Polystyrene Sulf 15 gm/60 ml Oral Susp PO SCH (12:19)
--- NOTE | 2017-07-28 12:20 | CP.PCM.PN ---
Subjective - Date & Time of Evaluation Date of Evaluation: 07/28/17 Time of Evaluation: 12:18 - Subjective Subjective: Podiatry- Dr. 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 Patient seen laying comfortably at bedside, AA0x3, and in NAD. Denies acute events overnight. Patient states that he is doing well and feels better overall. States that he has been walking around on the floor. Denies pain to ulceration. Denies any further pedal complaints at this time. Denies N/V/F/C/CP/SOB Objective - Vital Signs/Intake and Output Vital Signs (last 24 hours): Temp Pulse Resp BP Pulse Ox 97.0 F L 85 20 133/81 97 07/28/17 09:15 07/28/17 09:15 07/28/17 09:15 07/28/17 09:15 07/28/17 09:15 - Medications Medications: Current Medications Acetaminophen (Tylenol 325mg Tab) 650 mg PO Q6 PRN PRN Reason: Pain, moderate (4-7) Last Admin: 07/21/17 21:55 Dose: 650 mg Allopurinol (Zyloprim) 100 mg PO DAILY [facility] Last Admin: 07/28/17 08:54 Dose: 100 mg Amlodipine Besylate (Norvasc) 10 mg PO DAILY [facility] Last Admin: 07/28/17 08:55 Dose: 10 mg Bupropion HCl (Wellbutrin) 75 mg PO BID [facility] Last Admin: 07/28/17 08:51 Dose: 75 mg Calcitriol (Rocaltrol) 0.25 mcg PO MWF [facility] Last Admin: 07/26/17 09:35 Dose: 0.25 mcg Calcium Acetate (Phoslo) 1,334 mg PO WM@0900,1300,1700 [facility] Last Admin: 07/28/17 08:50 Dose: 1,334 mg Carvedilol (Coreg) 6.25 mg PO Q12 [facility] Last Admin: 07/28/17 08:52 Dose: 6.25 mg Clonidine HCl (Catapres) 0.3 mg PO Q8 [facility] Last Admin: 07/28/17 09:08 Dose: 0.3 mg Ferrous Sulfate (Feosol) 325 mg PO BID [facility] Last Admin: 07/28/17 08:52 Dose: 325 mg Fludrocortisone Acetate (Florinef) 0.05 mg PO QOTHERDAY [facility] Last Admin: 07/27/17 08:16 Dose: 0.05 mg Folic Acid (Folic Acid) 1 mg PO DAILY [facility] Last Admin: 07/28/17 08:53 Dose: 1 mg Furosemide (Lasix) 20 mg PO DAILY@1700 [facility] Last Admin: 07/27/17 18:53 Dose: 20 mg Furosemide (Lasix) 40 mg PO DAILY [facility] Last Admin: 07/28/17 08:53 Dose: 40 mg Gabapentin (Neurontin) 100 mg PO TID [facility] Last Admin: 07/28/17 08:50 Dose: 100 mg Glipizide (Glucotrol Xl) 10 mg PO BID [facility] Last Admin: 07/27/17 18:36 Dose: 10 mg Heparin Sodium (Porcine) (Heparin) 5,000 units SC Q12 [facility] PRN Reason: Protocol Last Admin: 07/27/17 21:32 Dose: 5,000 units Hydralazine HCl (Apresoline) 100 mg PO Q6H [facility] Last Admin: 07/28/17 05:12 Dose: 100 mg Aztreonam 1 gm/ Sodium (Chloride) 100 mls @ 100 mls/hr IVPB Q12@0500,1700 [facility] Last Admin: 07/28/17 05:11 Dose: 100 mls/hr Daptomycin 680 mg/ Sodium (Chloride) 100 mls @ 100 mls/hr IVPB QOTHERDAY [facility] Last Admin: 07/28/17 08:47 Dose: 100 mls/hr Insulin Human Regular (Humulin R) 0 units SC ACHS [facility] PRN Reason: Protocol Last Admin: 07/28/17 07:05 Dose: Not Given Magnesium Oxide (Mag-Ox) 400 mg PO BID [facility] Last Admin: 07/28/17 08:51 Dose: 400 mg Multivitamins/Minerals (Therapeutic-M Tab) 1 tab PO DAILY [facility] Last Admin: 07/28/17 08:51 Dose: 1 tab Mupirocin (Bactroban Ointment) 1 applic TOP BID [facility] Last Admin: 07/27/17 18:34 Dose: 1 applic Pantoprazole Sodium (Protonix Ec Tab) 40 mg PO DAILY [facility] Last Admin: 07/28/17 08:50 Dose: 40 mg Pentoxifylline (Pentoxil) 400 mg PO BID [facility] Last Admin: 07/28/17 08:54 Dose: 400 mg Sitagliptin Phosphate (Januvia) 25 mg PO DAILY [facility] Last Admin: 07/28/17 08:49 Dose: 25 mg Sodium Bicarbonate (Sodium Bicarbonate Tab) 650 mg PO BID [facility] Last Admin: 07/28/17 08:48 Dose: 650 mg Sodium Polystyrene Sulfonate (Kayexalate Oral Susp) 15 gm PO DAILY@1200 [facility] Last Admin: 07/27/17 12:17 Dose: 15 gm Vitamin D (Vitamin D 400 Intl Units Tab) 400 intlu PO DAILY [facility] Last Admin: 07/28/17 08:51 Dose: 400 intlu - Labs Labs: 07/28/17 05:30 07/28/17 05:30 - Constitutional Appears: Well, Non-toxic, No Acute Distress - Extremities Exam Additional comments: LE focused exam: Vasc: DP pulses nonpalpable b/l. PT pulses palpable 1/4 b/l. Diffused edema noted to RLE. Skin temperature warm to warm from proximal to distal stump. Derm: Ulceration noted to lateral aspect of right foot measuring roughly 2.5 cm x 0.5 cm x 0.4 cm with granular base and fibrotic border with minimal maceration noted to periwound area. Minimal serous drainage with some malodor noted today. No purulence, no fluctuance, periwound erythema or other clinical infection noted at this time. 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 No POP noted to ulceration site - Neurological Exam Neurological Exam: Alert, Awake, Oriented x3 - Psychiatric Exam Psychiatric exam: Normal Affect, Normal Mood Assessment and Plan - Assessment and Plan (Free Text) Assessment: 45 year old male with PMH of CKD, OM Right foot, DM II with Neuropathy, bilateral Charcot with right plantar ulceration secondary to DM and Charcot deformity Plan: Patient seen and evaluated at bedside. Discussed plan with covering attending, Dr. Vasquez Charts, labs and vitals reviewed; afebrile WBC @ 9.7 Dressing changed with Mupirocin ointment to wound, betadine to macerated tissue , DSD and DAVID Continue IV abx per ID- day 7 of 10 Pt to be full weightbearing to tolerance with use of [place] Walker to right lower extremity. Patient to remain in TCU until 07/29 to finish ten day course of abx per ID Podiatry to continue to follow while in house
--- NOTE | 2017-07-28 16:35 | PN ---
DATE: 07/28/2017 SUBJECTIVE: The patient seen and examined. Interim events noted. .Consults noted and appreciated. Podiatry followup and intervention noted and appreciated. The patient remains in transitional care unit, on IV antibiotics. The patient feels okay. Pain is adequately controlled. No chest pain. No shortness of breath or any new compliant. No specific issue reported by nursing staff. PHYSICAL EXAMINATION: GENERAL: The patient is in no acute distress. VITAL SIGNS: Stable. HEART: S1 and S2, normal and regular. LUNGS: Good bilateral air exchange. ABDOMEN: Soft and nontender. EXTREMITIES: The patient is status post amputation. No sign of acute complication. No edema. No calf swelling, no tenderness. No acute ischemia. CENTRAL NERVOUS SYSTEMS: Essentially unchanged. DIAGNOSTIC DATA: Available diagnostic data reviewed. ASSESSMENT: Overall, the patient's general medical condition is stable. The patient is antibiotic. PLAN: As ordered. Joel Lake MD
--- NOTE | 2017-07-28 16:51 | CP.PCM.PN ---
Subjective - Date & Time of Evaluation Date of Evaluation: 07/28/17 Time of Evaluation: 16:50 - Subjective Subjective: Reports R lower leg swelling increased; Objective - Vital Signs/Intake and Output Vital Signs (last 24 hours): Temp Pulse Resp BP Pulse Ox 97.0 F L 85 20 133/81 97 07/28/17 09:15 07/28/17 12:26 07/28/17 09:15 07/28/17 12:26 07/28/17 09:15 - Medications Medications: Current Medications Acetaminophen (Tylenol 325mg Tab) 650 mg PO Q6 PRN PRN Reason: Pain, moderate (4-7) Last Admin: 07/21/17 21:55 Dose: 650 mg Allopurinol (Zyloprim) 100 mg PO DAILY [facility] Last Admin: 07/28/17 08:54 Dose: 100 mg Amlodipine Besylate (Norvasc) 10 mg PO DAILY [facility] Last Admin: 07/28/17 08:55 Dose: 10 mg Bupropion HCl (Wellbutrin) 75 mg PO BID [facility] Last Admin: 07/28/17 08:51 Dose: 75 mg Calcitriol (Rocaltrol) 0.25 mcg PO MWF [facility] Last Admin: 07/26/17 09:35 Dose: 0.25 mcg Calcium Acetate (Phoslo) 1,334 mg PO WM@0900,1300,1700 [facility] Last Admin: 07/28/17 12:25 Dose: 1,334 mg Carvedilol (Coreg) 6.25 mg PO Q12 [facility] Last Admin: 07/28/17 08:52 Dose: 6.25 mg Clonidine HCl (Catapres) 0.3 mg PO Q8 [facility] Last Admin: 07/28/17 09:08 Dose: 0.3 mg Ferrous Sulfate (Feosol) 325 mg PO BID [facility] Last Admin: 07/28/17 08:52 Dose: 325 mg Fludrocortisone Acetate (Florinef) 0.05 mg PO QOTHERDAY [facility] Last Admin: 07/27/17 08:16 Dose: 0.05 mg Folic Acid (Folic Acid) 1 mg PO DAILY [facility] Last Admin: 07/28/17 08:53 Dose: 1 mg Furosemide (Lasix) 20 mg PO DAILY@1700 [facility] Last Admin: 07/27/17 18:53 Dose: 20 mg Furosemide (Lasix) 40 mg PO DAILY [facility] Last Admin: 07/28/17 08:53 Dose: 40 mg Gabapentin (Neurontin) 100 mg PO TID [facility] Last Admin: 07/28/17 12:28 Dose: 100 mg Glipizide (Glucotrol Xl) 10 mg PO BID [facility] Last Admin: 07/28/17 09:27 Dose: 10 mg Heparin Sodium (Porcine) (Heparin) 5,000 units SC Q12 [facility] PRN Reason: Protocol Last Admin: 07/28/17 09:21 Dose: 5,000 units Hydralazine HCl (Apresoline) 100 mg PO Q6H [facility] Last Admin: 07/28/17 12:26 Dose: 100 mg Aztreonam 1 gm/ Sodium (Chloride) 100 mls @ 100 mls/hr IVPB Q12@0500,1700 [facility] Last Admin: 07/28/17 05:11 Dose: 100 mls/hr Daptomycin 680 mg/ Sodium (Chloride) 100 mls @ 100 mls/hr IVPB QOTHERDAY [facility] Last Admin: 07/28/17 08:47 Dose: 100 mls/hr Insulin Human Regular (Humulin R) 0 units SC ACHS [facility] PRN Reason: Protocol Last Admin: 07/28/17 12:27 Dose: 3 units Magnesium Oxide (Mag-Ox) 400 mg PO BID [facility] Last Admin: 07/28/17 08:51 Dose: 400 mg Multivitamins/Minerals (Therapeutic-M Tab) 1 tab PO DAILY [facility] Last Admin: 07/28/17 08:51 Dose: 1 tab Mupirocin (Bactroban Ointment) 1 applic TOP QD7 [facility] Pantoprazole Sodium (Protonix Ec Tab) 40 mg PO DAILY [facility] Last Admin: 07/28/17 08:50 Dose: 40 mg Pentoxifylline (Pentoxil) 400 mg PO BID [facility] Last Admin: 07/28/17 08:54 Dose: 400 mg Sitagliptin Phosphate (Januvia) 25 mg PO DAILY [facility] Last Admin: 07/28/17 08:49 Dose: 25 mg Sodium Bicarbonate (Sodium Bicarbonate Tab) 650 mg PO BID [facility] Last Admin: 07/28/17 08:48 Dose: 650 mg Sodium Polystyrene Sulfonate (Kayexalate Oral Susp) 15 gm PO DAILY@1200 [facility] Last Admin: 07/28/17 12:19 Dose: 15 gm Vitamin D (Vitamin D 400 Intl Units Tab) 400 intlu PO DAILY [facility] Last Admin: 07/28/17 08:51 Dose: 400 intlu - Labs Labs: 07/28/17 05:30 07/28/17 05:30 - Constitutional Appears: Non-toxic, No Acute Distress - Head Exam Head Exam: NORMAL INSPECTION - Eye Exam Eye Exam: Normal appearance - Respiratory Exam Respiratory Exam: Clear to Ausculation Bilateral, NORMAL BREATHING PATTERN - Cardiovascular Exam Cardiovascular Exam: RRR, +S1, +S2 - GI/Abdominal Exam GI & Abdominal Exam: Soft. absent: Distended, Tenderness - Extremities Exam Additional comments: Moderate lower leg edema R >> L - Psychiatric Exam Psychiatric exam: Normal Affect, Normal Mood - Skin Skin Exam: Normal Color. absent: Cyanosis Assessment and Plan (1) Hyperkalemia Assessment & Plan: Controlled; on daily kayexalate and florinef 0.05 mg every other day; will reduce kayexalate to every other day; Status: Acute (2) Hypertensive CKD (chronic kidney disease) Assessment & Plan: BP elevated yesterday, improved after adding coreg and extra dose of lasix; continue rest of anti-htn meds; Status: Acute (3) Chronic kidney disease-mineral and bone disorder Assessment & Plan: Phos improved; continue phoslo 2 tabs tid w/ meals; awaiting repeat PTH level, continue calcitriol 0.25 mcg qMWF; continue sodium bicarb 650 mg bid; Status: Acute (4) Anemia in chronic kidney disease (CKD) Assessment & Plan: Hgb trending lower; EPO given today, will continue as outpatient with aranesp after prior-auth attained; Status: Chronic (5) CKD (chronic kidney disease) stage 4, GFR 15-29 ml/min Assessment & Plan: Late stage IV CKD; will need AVF/AVG creation once off abx; need to avoid nephrotoxins, NSAIDS, ARB/DAVID inhibitor or over-diuresis to prevent worsening of renal function; Status: Chronic (6) Osteomyelitis Status: Suspected
[2017-07-29] MEDS: NS IVPB SCH (05:51)
[2017-07-29] MEDS: AZTREONAM IVPB SCH (05:51)
--- NOTE | 2017-07-29 07:58 | CP.PCM.PN ---
Subjective - Date & Time of Evaluation Date of Evaluation: 07/29/17 Time of Evaluation: 07:56 - Subjective Subjective: Podiatry- Dr. 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 Patient seen laying comfortably at bedside, AA0x3, and in NAD. Denies acute events overnight. Patient states that he is doing well and feels better overall. States that he has been walking around on the floor. Denies pain to ulceration. States that he has noticed some minor increased swelling to his RLE over the last day or two. Denies any further pedal complaints at this time. Denies N/V/F/ C/CP/SOB Objective - Vital Signs/Intake and Output Vital Signs (last 24 hours): Temp Pulse Resp BP Pulse Ox 98.1 F 80 20 147/86 98 07/28/17 17:08 07/29/17 00:18 07/28/17 17:08 07/29/17 00:18 07/28/17 17:08 - Medications Medications: Current Medications Acetaminophen (Tylenol 325mg Tab) 650 mg PO Q6 PRN PRN Reason: Pain, moderate (4-7) Last Admin: 07/21/17 21:55 Dose: 650 mg Allopurinol (Zyloprim) 100 mg PO DAILY [facility] Last Admin: 07/28/17 08:54 Dose: 100 mg Amlodipine Besylate (Norvasc) 10 mg PO DAILY [facility] Last Admin: 07/28/17 08:55 Dose: 10 mg Bupropion HCl (Wellbutrin) 75 mg PO BID [facility] Last Admin: 07/28/17 18:20 Dose: 75 mg Calcitriol (Rocaltrol) 0.25 mcg PO MWF [facility] Last Admin: 07/26/17 09:35 Dose: 0.25 mcg Calcium Acetate (Phoslo) 1,334 mg PO WM@0900,1300,1700 [facility] Last Admin: 07/28/17 17:16 Dose: 1,334 mg Carvedilol (Coreg) 6.25 mg PO Q12 [facility] Last Admin: 07/28/17 20:30 Dose: 6.25 mg Clonidine HCl (Catapres) 0.3 mg PO Q8 [facility] Last Admin: 07/29/17 00:18 Dose: 0.3 mg Ferrous Sulfate (Feosol) 325 mg PO BID [facility] Last Admin: 07/28/17 18:17 Dose: 325 mg Fludrocortisone Acetate (Florinef) 0.05 mg PO QOTHERDAY [facility] Last Admin: 07/27/17 08:16 Dose: 0.05 mg Folic Acid (Folic Acid) 1 mg PO DAILY [facility] Last Admin: 07/28/17 08:53 Dose: 1 mg Furosemide (Lasix) 20 mg PO DAILY@1700 [facility] Last Admin: 07/28/17 18:19 Dose: 20 mg Furosemide (Lasix) 40 mg PO DAILY [facility] Last Admin: 07/28/17 08:53 Dose: 40 mg Gabapentin (Neurontin) 100 mg PO TID [facility] Last Admin: 07/28/17 18:14 Dose: 100 mg Glipizide (Glucotrol Xl) 10 mg PO BID [facility] Last Admin: 07/28/17 17:18 Dose: 10 mg Heparin Sodium (Porcine) (Heparin) 5,000 units SC Q12 [facility] PRN Reason: Protocol Last Admin: 07/28/17 20:30 Dose: 5,000 units Hydralazine HCl (Apresoline) 100 mg PO Q6H [facility] Last Admin: 07/29/17 00:16 Dose: 100 mg Aztreonam 1 gm/ Sodium (Chloride) 100 mls @ 100 mls/hr IVPB Q12@0500,1700 [facility] Last Admin: 07/29/17 05:51 Dose: 100 mls/hr Daptomycin 680 mg/ Sodium (Chloride) 100 mls @ 100 mls/hr IVPB QOTHERDAY [facility] Last Admin: 07/28/17 08:47 Dose: 100 mls/hr Insulin Human Regular (Humulin R) 0 units SC ACHS [facility] PRN Reason: Protocol Last Admin: 07/28/17 22:12 Dose: Not Given Magnesium Oxide (Mag-Ox) 400 mg PO BID [facility] Last Admin: 07/28/17 17:20 Dose: 400 mg Multivitamins/Minerals (Therapeutic-M Tab) 1 tab PO DAILY [facility] Last Admin: 07/28/17 08:51 Dose: 1 tab Mupirocin (Bactroban Ointment) 1 applic TOP QD7 [facility] Pantoprazole Sodium (Protonix Ec Tab) 40 mg PO DAILY [facility] Last Admin: 07/28/17 08:50 Dose: 40 mg Pentoxifylline (Pentoxil) 400 mg PO BID [facility] Last Admin: 07/28/17 17:19 Dose: 400 mg Sitagliptin Phosphate (Januvia) 25 mg PO DAILY [facility] Last Admin: 07/28/17 08:49 Dose: 25 mg Sodium Bicarbonate (Sodium Bicarbonate Tab) 650 mg PO BID [facility] Last Admin: 07/28/17 18:14 Dose: 650 mg Sodium Polystyrene Sulfonate (Kayexalate Oral Susp) 15 gm PO QOTHERDAY@1200 [facility] Vitamin D (Vitamin D 400 Intl Units Tab) 400 intlu PO DAILY [facility] Last Admin: 07/28/17 08:51 Dose: 400 intlu - Labs Labs: 07/28/17 05:30 07/28/17 05:30 - Constitutional Appears: Well, Non-toxic, No Acute Distress - Extremities Exam Additional comments: LE focused exam: Vasc: DP pulses nonpalpable b/l. PT pulses palpable 1/4 b/l. Mildly increased edema noted to RLE. Skin temperature warm to warm from proximal to distal stump. Derm: Ulceration noted to lateral aspect of right foot measuring roughly 2.5 cm x 0.5 cm x 0.4 cm with granular base and fibrotic border with minimal maceration noted to periwound area. Minimal serous drainage with no malodor noted today. No purulence, no fluctuance, periwound erythema or other clinical infection noted at this time. 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 No POP noted to ulceration site - Neurological Exam Neurological Exam: Alert, Awake, Oriented x3 - Psychiatric Exam Psychiatric exam: Normal Affect, Normal Mood Assessment and Plan - Assessment and Plan (Free Text) Assessment: 45 year old male with PMH of CKD, OM Right foot, DM II with Neuropathy, bilateral Charcot with right plantar ulceration secondary to DM and Charcot deformity Plan: Patient seen and evaluated at bedside. Discussed plan with covering attending, Dr. Vasquez Charts, labs and vitals reviewed; afebrile Dressing changed with Mupirocin ointment to wound, betadine to macerated tissue , DSD and DAVID Pt to finish ten day course of abx today Pt to be full weightbearing to tolerance with use of [id number] Walker to right lower extremity. Podiatry to continue to follow while in house Upon DC patient will f/u with Dr. Medina for continued wound care
[2017-07-29] MEDS: GlipiZIDE 10 mg SR Tab PO SCH ×2 (08:23→17:31)
[2017-07-29] MEDS: Insulin Regular 100 units/ml SC SCH ×4 (08:24→22:25)
[2017-07-29] MEDS: Pantoprazole 40 mg EC Tab PO SCH (08:27)
[2017-07-29] MEDS: Magnesium Oxide 400 mg Tab UD PO SCH ×2 (08:28→17:31)
[2017-07-29] MEDS: Cholecalciferol 400 Intl Units Tab PO SCH (08:30)
[2017-07-29] MEDS: Multivitamin With Minerals Tab PO SCH (08:30)
[2017-07-29 19:00] LABS: CALCIUM 8.8 mg/dL (8.6-10.3)
--- NOTE | 2017-07-30 05:12 | CP.PCM.PN ---
Subjective - Date & Time of Evaluation Date of Evaluation: 07/29/17 Time of Evaluation: 12:00 - Subjective Subjective: Patient reporting increased lower leg edema bilaterally; otherwise feels well, no shortness of breath; Objective - Vital Signs/Intake and Output Vital Signs (last 24 hours): Temp Pulse Resp BP Pulse Ox 97.3 F L 73 20 123/64 99 07/29/17 20:13 07/30/17 00:43 07/29/17 20:13 07/30/17 00:43 07/29/17 20:13 - Medications Medications: Current Medications Acetaminophen (Tylenol 325mg Tab) 650 mg PO Q6 PRN PRN Reason: Pain, moderate (4-7) Last Admin: 07/21/17 21:55 Dose: 650 mg Allopurinol (Zyloprim) 100 mg PO DAILY [facility] Last Admin: 07/29/17 08:31 Dose: 100 mg Amlodipine Besylate (Norvasc) 10 mg PO DAILY [facility] Last Admin: 07/29/17 08:28 Dose: 10 mg Bupropion HCl (Wellbutrin) 75 mg PO BID [facility] Last Admin: 07/29/17 17:32 Dose: 75 mg Calcitriol (Rocaltrol) 0.25 mcg PO MWF [facility] Last Admin: 07/29/17 08:30 Dose: 0.25 mcg Calcium Acetate (Phoslo) 1,334 mg PO WM@0900,1300,1700 [facility] Last Admin: 07/29/17 17:32 Dose: 1,334 mg Carvedilol (Coreg) 6.25 mg PO Q12 [facility] Last Admin: 07/29/17 21:00 Dose: 6.25 mg Clonidine HCl (Catapres) 0.3 mg PO Q8 [facility] Last Admin: 07/30/17 00:43 Dose: 0.3 mg Ferrous Sulfate (Feosol) 325 mg PO BID [facility] Last Admin: 07/29/17 17:30 Dose: 325 mg Fludrocortisone Acetate (Florinef) 0.05 mg PO QOTHERDAY [facility] Last Admin: 07/29/17 08:22 Dose: Not Given Folic Acid (Folic Acid) 1 mg PO DAILY [facility] Last Admin: 07/29/17 08:22 Dose: 1 mg Furosemide (Lasix) 20 mg PO DAILY@1700 [facility] Last Admin: 07/29/17 17:31 Dose: 20 mg Furosemide (Lasix) 40 mg PO DAILY [facility] Last Admin: 07/29/17 08:26 Dose: 40 mg Gabapentin (Neurontin) 100 mg PO TID [facility] Last Admin: 07/29/17 17:32 Dose: 100 mg Glipizide (Glucotrol Xl) 10 mg PO BID [facility] Last Admin: 07/29/17 17:31 Dose: 10 mg Heparin Sodium (Porcine) (Heparin) 5,000 units SC Q12 [facility] PRN Reason: Protocol Last Admin: 07/29/17 21:00 Dose: 5,000 units Hydralazine HCl (Apresoline) 100 mg PO Q6H [facility] Last Admin: 07/29/17 23:45 Dose: 100 mg Daptomycin 680 mg/ Sodium (Chloride) 100 mls @ 100 mls/hr IVPB QOTHERDAY [facility] Last Admin: 07/28/17 08:47 Dose: 100 mls/hr Insulin Human Regular (Humulin R) 0 units SC ACHS [facility] PRN Reason: Protocol Last Admin: 07/29/17 22:25 Dose: Not Given Magnesium Oxide (Mag-Ox) 400 mg PO BID [facility] Last Admin: 07/29/17 17:31 Dose: 400 mg Multivitamins/Minerals (Therapeutic-M Tab) 1 tab PO DAILY [facility] Last Admin: 07/29/17 08:30 Dose: 1 tab Mupirocin (Bactroban Ointment) 1 applic TOP QD7 [facility] Last Admin: 07/29/17 08:20 Dose: 1 applic Pantoprazole Sodium (Protonix Ec Tab) 40 mg PO DAILY [facility] Last Admin: 07/29/17 08:27 Dose: 40 mg Pentoxifylline (Pentoxil) 400 mg PO BID [facility] Last Admin: 07/29/17 17:32 Dose: 400 mg Sitagliptin Phosphate (Januvia) 25 mg PO DAILY [facility] Last Admin: 07/29/17 08:26 Dose: 25 mg Sodium Bicarbonate (Sodium Bicarbonate Tab) 650 mg PO BID [facility] Last Admin: 07/29/17 17:32 Dose: 650 mg Sodium Polystyrene Sulfonate (Kayexalate Oral Susp) 15 gm PO QOTHERDAY@1200 [facility] Vitamin D (Vitamin D 400 Intl Units Tab) 400 intlu PO DAILY [facility] Last Admin: 07/29/17 08:30 Dose: 400 intlu - Labs Labs: 07/28/17 05:30 07/28/17 05:30 - Constitutional Appears: Well, No Acute Distress - Head Exam Head Exam: NORMAL INSPECTION - Eye Exam Eye Exam: Normal appearance. absent: Scleral icterus - ENT Exam ENT Exam: Mucous Membranes Moist - Respiratory Exam Respiratory Exam: Clear to Ausculation Bilateral, NORMAL BREATHING PATTERN. absent: Rales, Rhonchi, Wheezes - Cardiovascular Exam Cardiovascular Exam: REGULAR RHYTHM, +S1, +S2 - GI/Abdominal Exam GI & Abdominal Exam: Soft. absent: Distended, Tenderness - Extremities Exam Additional comments: Moderate to severe bilateral lower leg edema R >> L - Neurological Exam Neurological Exam: Alert, Awake - Psychiatric Exam Psychiatric exam: Normal Affect, Normal Mood - Skin Skin Exam: Normal Color, Warm. absent: Cyanosis Assessment and Plan (1) Hyperkalemia Assessment & Plan: Being managed medically with kayexalate and florinef; however, both of these meds are resulting in excess total body sodium with resulting increasing lower ext edema; -stopping florinef, can use prn if K starts increasing > 5 -continuing kayexalate every other day; once discharged, will arrange for newer K exchange resin veltassa instead of kayexalate (no sodium load); Status: Acute (2) Hypertensive CKD (chronic kidney disease) Assessment & Plan: Worsened BP control after giving EPO dose; also with high sodium load/retention from hyperkalemia meds/sodium bicarb; continuing current anti-htn meds, giving extra dose of IV lasix 20 mg this evening, will hold sodium bicarb for now; Status: Acute (3) Chronic kidney disease-mineral and bone disorder Assessment & Plan: PTH improved, calcitriol 0.25 mcg already cut back to qMWF, continue; phos improved, continue phoslo 2 tabs with meals; Status: Acute (4) Anemia in chronic kidney disease (CKD) Assessment & Plan: EPO dose given this weekend, will arrange for aranesp monthly after discharge; Status: Chronic (5) CKD (chronic kidney disease) stage 4, GFR 15-29 ml/min Assessment & Plan: Stage IV/V, relatively stable renal function lately; needs HD access placement upon discharge; will give transplant referral also; avoid nephrotoxins, over- diuresis and DAVID-inhibitor/ARB/NSAIDS; Status: Chronic (6) Osteomyelitis Status: Suspected
[2017-07-30] MEDS: Insulin Regular 100 units/ml SC SCH ×4 (06:58→21:26)
--- NOTE | 2017-07-30 07:11 | CP.PCM.PN ---
Subjective - Date & Time of Evaluation Date of Evaluation: 07/30/17 Time of Evaluation: 07:08 - Subjective Subjective: Podiatry- Dr. 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 Patient seen laying comfortably at bedside, AA0x3, and in NAD. Denies acute events overnight. Patient states that he is doing well and feels better overall. States that he has been walking around on the floor. Denies pain to ulceration. States that he has continued to notice swelling to LE b/l. Denies any further pedal complaints at this time. Denies N/V/F/C/CP/SOB Objective - Vital Signs/Intake and Output Vital Signs (last 24 hours): Temp Pulse Resp BP Pulse Ox 97.3 F L 71 20 140/71 99 07/29/17 20:13 07/30/17 05:51 07/29/17 20:13 07/30/17 05:51 07/29/17 20:13 - Medications Medications: Current Medications Acetaminophen (Tylenol 325mg Tab) 650 mg PO Q6 PRN PRN Reason: Pain, moderate (4-7) Last Admin: 07/21/17 21:55 Dose: 650 mg Allopurinol (Zyloprim) 100 mg PO DAILY [facility] Last Admin: 07/29/17 08:31 Dose: 100 mg Amlodipine Besylate (Norvasc) 10 mg PO DAILY [facility] Last Admin: 07/29/17 08:28 Dose: 10 mg Bupropion HCl (Wellbutrin) 75 mg PO BID [facility] Last Admin: 07/29/17 17:32 Dose: 75 mg Calcitriol (Rocaltrol) 0.25 mcg PO MWF [facility] Last Admin: 07/29/17 08:30 Dose: 0.25 mcg Calcium Acetate (Phoslo) 1,334 mg PO WM@0900,1300,1700 [facility] Last Admin: 07/29/17 17:32 Dose: 1,334 mg Carvedilol (Coreg) 6.25 mg PO Q12 [facility] Last Admin: 07/29/17 21:00 Dose: 6.25 mg Clonidine HCl (Catapres) 0.3 mg PO Q8 [facility] Last Admin: 07/30/17 00:43 Dose: 0.3 mg Ferrous Sulfate (Feosol) 325 mg PO BID [facility] Last Admin: 07/29/17 17:30 Dose: 325 mg Fludrocortisone Acetate (Florinef) 0.05 mg PO QOTHERDAY [facility] Last Admin: 07/29/17 08:22 Dose: Not Given Folic Acid (Folic Acid) 1 mg PO DAILY [facility] Last Admin: 07/29/17 08:22 Dose: 1 mg Furosemide (Lasix) 20 mg PO DAILY@1700 [facility] Last Admin: 07/29/17 17:31 Dose: 20 mg Furosemide (Lasix) 40 mg PO DAILY [facility] Last Admin: 07/29/17 08:26 Dose: 40 mg Gabapentin (Neurontin) 100 mg PO TID [facility] Last Admin: 07/29/17 17:32 Dose: 100 mg Glipizide (Glucotrol Xl) 10 mg PO BID [facility] Last Admin: 07/29/17 17:31 Dose: 10 mg Heparin Sodium (Porcine) (Heparin) 5,000 units SC Q12 [facility] PRN Reason: Protocol Last Admin: 07/29/17 21:00 Dose: 5,000 units Hydralazine HCl (Apresoline) 100 mg PO Q6H [facility] Last Admin: 07/30/17 05:51 Dose: 100 mg Daptomycin 680 mg/ Sodium (Chloride) 100 mls @ 100 mls/hr IVPB QOTHERDAY [facility] Last Admin: 07/28/17 08:47 Dose: 100 mls/hr Insulin Human Regular (Humulin R) 0 units SC ACHS [facility] PRN Reason: Protocol Last Admin: 07/30/17 06:58 Dose: 3 units Magnesium Oxide (Mag-Ox) 400 mg PO BID [facility] Last Admin: 07/29/17 17:31 Dose: 400 mg Multivitamins/Minerals (Therapeutic-M Tab) 1 tab PO DAILY [facility] Last Admin: 07/29/17 08:30 Dose: 1 tab Mupirocin (Bactroban Ointment) 1 applic TOP QD7 [facility] Last Admin: 07/29/17 08:20 Dose: 1 applic Pantoprazole Sodium (Protonix Ec Tab) 40 mg PO DAILY [facility] Last Admin: 07/29/17 08:27 Dose: 40 mg Pentoxifylline (Pentoxil) 400 mg PO BID [facility] Last Admin: 07/29/17 17:32 Dose: 400 mg Sitagliptin Phosphate (Januvia) 25 mg PO DAILY [facility] Last Admin: 07/29/17 08:26 Dose: 25 mg Sodium Bicarbonate (Sodium Bicarbonate Tab) 650 mg PO BID [facility] Last Admin: 07/29/17 17:32 Dose: 650 mg Sodium Polystyrene Sulfonate (Kayexalate Oral Susp) 15 gm PO QOTHERDAY@1200 [facility] Vitamin D (Vitamin D 400 Intl Units Tab) 400 intlu PO DAILY [facility] Last Admin: 07/29/17 08:30 Dose: 400 intlu - Labs Labs: 07/28/17 05:30 07/28/17 05:30 - Constitutional Appears: Well, Non-toxic, No Acute Distress - Extremities Exam Additional comments: LE focused exam: Vasc: DP pulses nonpalpable b/l. PT pulses palpable 1/4 b/l. Mildly increased edema noted to RLE. Skin temperature warm to warm from proximal to distal stump. Derm: Ulceration noted to lateral aspect of right foot measuring roughly 2.3 cm x 0.4 cm x 0.3 cm with granular base and fibrotic border with minimal maceration noted to periwound area. Minimal serous drainage with no malodor noted today. No purulence, no fluctuance, periwound erythema or other clinical infection noted at this time. 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 No POP noted to ulceration site - Neurological Exam Neurological Exam: Alert, Awake, Oriented x3 - Psychiatric Exam Psychiatric exam: Normal Affect, Normal Mood Assessment and Plan - Assessment and Plan (Free Text) Assessment: 45 year old male with PMH of CKD, OM Right foot, DM II with Neuropathy, bilateral Charcot with right plantar ulceration secondary to DM and Charcot deformity Plan: Patient seen and evaluated at bedside. Discussed plan with attending Dr. Medina Charts, labs and vitals reviewed; afebrile Dressing changed with Mupirocin ointment to wound, betadine to macerated tissue , DSD and DAVID Pt finished ten day course of abx yesterday Pt to be full weightbearing to tolerance with use of [place] Walker to right lower extremity. Podiatry to continue to follow while in house Upon DC patient will f/u with Dr. Medina for continued wound care
--- NOTE | 2017-07-30 08:24 | PN ---
NEPHROLOGY FOLLOWUP NOTE DATE: SUBJECTIVE: This is a 46-year-old with past medical history of hypertension, diabetes, CKD stage IV/V admitted with chronic right foot osteomyelitis, nephrology following for CKD care. The patient reports increasing bilateral lower leg edema, no shortness of breath. PHYSICAL EXAMINATION: GENERAL: No distress, conversing coherently in full sentences. VITAL SIGNS: This morning blood pressure 173/83, heart rate 79, respirations 20, temperature 97.7, O2 sat 97% on room air. HEENT: Moist mucous membranes, nonicteric. RESPIRATORY: Lungs clear to auscultation bilaterally. No rales, no rhonchi, no wheezes. HEART: S1 and S2 normal. No murmurs, no gallops, no rubs. GASTROINTESTINAL: Abdomen is soft, nontender, nondistended. SKIN: Warm. No cyanosis. EXTREMITIES: Bilateral moderately severe lower leg edema, right greater than left. PSYCHIATRIC: Normal mood. Normal affect. LABORATORY DATA: From yesterday CBC WBC 9.7, hemoglobin 8.5, hematocrit 25.6, platelets 209. Chemistry panel sodium 140, potassium 4.6, chloride 105, bicarb 25, BUN 64, creatinine 4.5, glucose 146, calcium 9.0, phosphorous 5.1, albumin 3.4. ASSESSMENT AND PLAN: Chronic kidney disease stage IV/V. Geovanny Ward MD
[2017-07-30] MEDS: GlipiZIDE 10 mg SR Tab PO SCH ×2 (08:25→17:06)
[2017-07-30] MEDS: Magnesium Oxide 400 mg Tab UD PO SCH ×2 (08:27→17:07)
[2017-07-30] MEDS: Cholecalciferol 400 Intl Units Tab PO SCH (08:29)
[2017-07-30] MEDS: Multivitamin With Minerals Tab PO SCH (08:29)
[2017-07-30] MEDS: Pantoprazole 40 mg EC Tab PO SCH (08:29)
--- NOTE | 2017-07-30 08:32 | PN ---
NEPHROLOGY FOLLOW NOTE SUBJECTIVE: A 46-year-old male with past medical history of hypertension, diabetes, CKD stage IV/V, admitted with chronic right foot osteomyelitis getting IV antibiotics. Nephrology following for CKD care. The patient reports increasing leg swelling bilaterally, otherwise reports feeling well. He has not been having any shortness of breath. PHYSICAL EXAMINATION: VITAL SIGNS: This morning blood pressure 173/83, heart rate 79, respirations 20, temperature 97.7, O2 sat 97% on room air. GENERAL: No distress. Conversing coherently in full sentences. HEENT: Moist mucous membranes, nonicteric. RESPIRATORY: Lungs clear to auscultation bilaterally. No rales. No rhonchi. No wheezes. HEART: S1 and S2 normal. No murmurs, no gallops, no rubs. GI: Abdomen soft, nontender and nondistended. EXTREMITIES: [id number] bilateral lower leg edema, right greater than left. SKIN: Warm. No cyanosis. PSYCHIATRIC: Normal mood, normal affect. LABORATORY DATA: Drawn yesterday, WBC 9.7, hemoglobin 8.5, hematocrit 25.6, platelets 209. Chemistry panel: Sodium 140, potassium 4.6, chloride 105, bicarb 25, BUN 64, creatinine 4.5, glucose 146, calcium 9.0, phosphorous 5.1, albumin 3.4, PTH 155. Geovanny Ward MD
--- NOTE | 2017-07-30 08:32 | PN ---
DATE: 07/29/2017 SUBJECTIVE: The patient seen and examined. Interim events noted. Consults noted and appreciated. Nephrology followup and intervention noted and appreciated. The patient remains in transitional care unit, on IV antibiotics for osteomyelitis. The patient feels okay. Denies any specific complaints. No chest pain. No shortness of breath. Leg pain is adequately controlled. The patient is able to ambulate with orthotic shoes. PHYSICAL EXAMINATION: GENERAL: The patient is in no acute distress. VITAL SIGNS: Stable. Physical exam is essentially unchanged. DIAGNOSTIC DATA: Available diagnostic data reviewed. Creatinine is 4.5, remains elevated. ASSESSMENT: Overall, the patient's general medical condition is stable. PLAN: As ordered. Joel Lake MD
--- NOTE | 2017-07-30 11:04 | PN ---
DATE: 07/30/2017 SUBJECTIVE: The patient is seen and examined. Interm events noted. Consults noted and appreciated. The patient is on IV antibiotics till next Saturday. The patient feels okay. Denies any specific medical complaints. No chest pain or shortness of breath. PHYSICAL EXAMINATION: GENERAL: The patient is in no acute distress. VITAL SIGNS: Stable. HEART: S1 and S2, normal and regular. LUNGS: Good bilateral air entry. ABDOMEN: Soft and nontender. EXTREMITIES: No edema. No calf swelling, no tenderness. No acute ischemia. 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 ASSESSMENT: The patient is status post amputation. The patient's general medical condition is stable. PLAN: As ordered. Joel Lake MD
[2017-07-30] MEDS: Sod Polystyrene Sulf 15 gm/60 ml Oral Susp PO SCH (11:55)
--- NOTE | 2017-07-30 19:14 | CP.PCM.PN ---
Subjective - Date & Time of Evaluation Date of Evaluation: 07/30/17 Time of Evaluation: 19:12 - Subjective Subjective: Reports some improvement in leg swelling; denies any shortness of breath; Objective - Vital Signs/Intake and Output Vital Signs (last 24 hours): Temp Pulse Resp BP Pulse Ox 97.7 F 78 20 153/82 H 99 07/30/17 16:25 07/30/17 17:05 07/30/17 16:25 07/30/17 17:06 07/30/17 16:25 - Medications Medications: Current Medications Acetaminophen (Tylenol 325mg Tab) 650 mg PO Q6 PRN PRN Reason: Pain, moderate (4-7) Last Admin: 07/21/17 21:55 Dose: 650 mg Allopurinol (Zyloprim) 100 mg PO DAILY [facility] Last Admin: 07/30/17 08:29 Dose: 100 mg Amlodipine Besylate (Norvasc) 10 mg PO DAILY [facility] Last Admin: 07/30/17 08:28 Dose: 10 mg Bupropion HCl (Wellbutrin) 75 mg PO BID [facility] Last Admin: 07/30/17 17:07 Dose: 75 mg Calcitriol (Rocaltrol) 0.25 mcg PO MWF [facility] Last Admin: 07/29/17 08:30 Dose: 0.25 mcg Calcium Acetate (Phoslo) 1,334 mg PO WM@0900,1300,1700 [facility] Last Admin: 07/30/17 17:05 Dose: 1,334 mg Carvedilol (Coreg) 6.25 mg PO Q12 [facility] Last Admin: 07/30/17 08:24 Dose: 6.25 mg Clonidine HCl (Catapres) 0.3 mg PO Q8 [facility] Last Admin: 07/30/17 17:05 Dose: 0.3 mg Ferrous Sulfate (Feosol) 325 mg PO BID [facility] Last Admin: 07/30/17 17:05 Dose: 325 mg Fludrocortisone Acetate (Florinef) 0.05 mg PO QOTHERDAY [facility] Last Admin: 07/29/17 08:22 Dose: Not Given Folic Acid (Folic Acid) 1 mg PO DAILY [facility] Last Admin: 07/30/17 08:25 Dose: 1 mg Furosemide (Lasix) 20 mg PO DAILY@1700 [facility] Last Admin: 07/30/17 17:06 Dose: 20 mg Furosemide (Lasix) 40 mg PO DAILY [facility] Last Admin: 07/30/17 08:27 Dose: 40 mg Gabapentin (Neurontin) 100 mg PO TID [facility] Last Admin: 07/30/17 17:07 Dose: 100 mg Glipizide (Glucotrol Xl) 10 mg PO BID [facility] Last Admin: 07/30/17 17:06 Dose: 10 mg Heparin Sodium (Porcine) (Heparin) 5,000 units SC Q12 [facility] PRN Reason: Protocol Last Admin: 07/30/17 08:27 Dose: 5,000 units Hydralazine HCl (Apresoline) 100 mg PO Q6H [facility] Last Admin: 07/30/17 17:05 Dose: 100 mg Daptomycin 680 mg/ Sodium (Chloride) 100 mls @ 100 mls/hr IVPB QOTHERDAY [facility] Last Admin: 07/30/17 11:54 Dose: 100 mls/hr Insulin Human Regular (Humulin R) 0 units SC ACHS [facility] PRN Reason: Protocol Last Admin: 07/30/17 17:06 Dose: Not Given Magnesium Oxide (Mag-Ox) 400 mg PO BID [facility] Last Admin: 07/30/17 17:07 Dose: 400 mg Multivitamins/Minerals (Therapeutic-M Tab) 1 tab PO DAILY [facility] Last Admin: 07/30/17 08:29 Dose: 1 tab Mupirocin (Bactroban Ointment) 1 applic TOP QD7 [facility] Last Admin: 07/30/17 08:23 Dose: 1 applic Pantoprazole Sodium (Protonix Ec Tab) 40 mg PO DAILY [facility] Last Admin: 07/30/17 08:29 Dose: 40 mg Sitagliptin Phosphate (Januvia) 25 mg PO DAILY [facility] Last Admin: 07/30/17 08:27 Dose: 25 mg Sodium Bicarbonate (Sodium Bicarbonate Tab) 650 mg PO BID [facility] Last Admin: 07/30/17 08:29 Dose: 650 mg Sodium Polystyrene Sulfonate (Kayexalate Oral Susp) 15 gm PO QOTHERDAY@1200 [facility] Last Admin: 07/30/17 11:55 Dose: 15 gm Vitamin D (Vitamin D 400 Intl Units Tab) 400 intlu PO DAILY [facility] Last Admin: 07/30/17 08:29 Dose: 400 intlu - Labs Labs: 07/28/17 05:30 07/28/17 05:30 - Constitutional Appears: Well, No Acute Distress - Head Exam Head Exam: NORMAL INSPECTION - Eye Exam Eye Exam: Normal appearance. absent: Scleral icterus - ENT Exam ENT Exam: Mucous Membranes Moist - Respiratory Exam Respiratory Exam: Clear to Ausculation Bilateral, NORMAL BREATHING PATTERN. absent: Rales, Rhonchi, Wheezes, Respiratory Distress - Cardiovascular Exam Cardiovascular Exam: REGULAR RHYTHM, +S1, +S2 - GI/Abdominal Exam GI & Abdominal Exam: Soft. absent: Distended, Tenderness - Extremities Exam Additional comments: moderately edematous lower legs R >> L; - Neurological Exam Neurological Exam: Alert, Awake - Psychiatric Exam Psychiatric exam: Normal Affect, Normal Mood - Skin Skin Exam: Normal Color, Warm. absent: Cyanosis Assessment and Plan (1) Hyperkalemia Assessment & Plan: Controlled; on kayexalate 15 g every other day, decreased from daily; florinef stopped; will check bmp tomorrow; Status: Acute (2) Hypertensive CKD (chronic kidney disease) Assessment & Plan: Still with intermittently high BP readings but overall improved; continue current regimen; trying to lessen Na load from other meds; will give extra PO lasix 20 mg dose this evening to offset Na load from kayexalate this morning; Status: Acute (3) Chronic kidney disease-mineral and bone disorder Assessment & Plan: On calcitriol 0.25 mcg qMWF and phoslo 2 tabs w/ meals; checking phos tomorrow; Status: Acute (4) Anemia in chronic kidney disease (CKD) Assessment & Plan: Hgb downward trending; received dose of EPO this weekend; will monitor; Status: Chronic (5) CKD (chronic kidney disease) stage 4, GFR 15-29 ml/min Assessment & Plan: Stable renal function of late; HD planning as outpatient; avoid nephrotoxic meds ; Status: Chronic (6) Osteomyelitis Status: Suspected
[2017-07-30] MEDS ORDERED: Magnesium Hydroxide Susp 30 ml UD PO ONE (20:25)
[2017-07-31] MEDS: Insulin Regular 100 units/ml SC SCH ×4 (06:54→22:09)
[2017-07-31] MEDS: GlipiZIDE 10 mg SR Tab PO SCH ×2 (08:46→17:04)
[2017-07-31 08:47] LABS: BASO # 0.1 K/uL (0.0-0.2); BASO % 0.6 % (0.0-2.0); EOS # 0.3 K/uL (0.0-0.7); EOS % 2.7 % (0.0-4.0); HEMATOCRIT 27.5 % (35.0-51.0); LYMPH # 2.6 K/uL (1.0-4.3); LYMPH % 23.6 % (20.0-40.0); MEAN CELL VOLUME 78.2 fl (80.0-94.0); MEAN CORPUSCULAR HEMOGLOBIN 24.3 pg (27.0-31.0); MEAN PLATELET VOLUME 8.7 fl (7.2-11.7); MONO # 0.8 K/uL (0.0-0.8); MONO % 7.1 % (0.0-10.0); NEUT # 7.3 K/uL (1.8-7.0); NRBC % 0.1 % (0.0-0.0); RED CELL DISTRIBUTION WIDTH 14.8 % (11.5-14.5)
[2017-07-31] MEDS: Magnesium Oxide 400 mg Tab UD PO SCH ×2 (08:47→17:05)
[2017-07-31] MEDS: Multivitamin With Minerals Tab PO SCH (08:49)
[2017-07-31] MEDS: Pantoprazole 40 mg EC Tab PO SCH (08:49)
[2017-07-31] MEDS: Cholecalciferol 400 Intl Units Tab PO SCH (08:49)
--- NOTE | 2017-07-31 08:49 | CP.PCM.PN ---
Subjective - Date & Time of Evaluation Date of Evaluation: 07/31/17 Time of Evaluation: 07:47 - Subjective Subjective: Podiatry- Dr. 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 Patient seen laying comfortably at bedside, AA0x3, and in NAD. Denies acute events overnight. Patient states that he is doing well and feels better overall. States that he has been walking around on the floor with use of his [place] boot. Denies pain to ulceration. States that b/l LE edema has diminished. Denies any further pedal complaints at this time. Denies N/V/F/C/CP/SOB Objective - Vital Signs/Intake and Output Vital Signs (last 24 hours): Temp Pulse Resp BP Pulse Ox 97.9 F 74 20 139/79 100 07/31/17 08:08 07/31/17 08:08 07/31/17 08:08 07/31/17 08:08 07/31/17 08:08 - Medications Medications: Current Medications Acetaminophen (Tylenol 325mg Tab) 650 mg PO Q6 PRN PRN Reason: Pain, moderate (4-7) Last Admin: 07/21/17 21:55 Dose: 650 mg Allopurinol (Zyloprim) 100 mg PO DAILY [facility] Last Admin: 07/30/17 08:29 Dose: 100 mg Amlodipine Besylate (Norvasc) 10 mg PO DAILY [facility] Last Admin: 07/30/17 08:28 Dose: 10 mg Bupropion HCl (Wellbutrin) 75 mg PO BID [facility] Last Admin: 07/30/17 17:07 Dose: 75 mg Calcitriol (Rocaltrol) 0.25 mcg PO MWF [facility] Last Admin: 07/29/17 08:30 Dose: 0.25 mcg Calcium Acetate (Phoslo) 1,334 mg PO WM@0900,1300,1700 [facility] Last Admin: 07/30/17 17:05 Dose: 1,334 mg Carvedilol (Coreg) 6.25 mg PO Q12 [facility] Last Admin: 07/30/17 20:21 Dose: 6.25 mg Clonidine HCl (Catapres) 0.3 mg PO Q8 [facility] Last Admin: 07/31/17 00:15 Dose: 0.3 mg Ferrous Sulfate (Feosol) 325 mg PO BID [facility] Last Admin: 07/30/17 17:05 Dose: 325 mg Fludrocortisone Acetate (Florinef) 0.05 mg PO QOTHERDAY [facility] Last Admin: 07/29/17 08:22 Dose: Not Given Folic Acid (Folic Acid) 1 mg PO DAILY [facility] Last Admin: 07/30/17 08:25 Dose: 1 mg Furosemide (Lasix) 20 mg PO DAILY@1700 [facility] Last Admin: 07/30/17 17:06 Dose: 20 mg Furosemide (Lasix) 40 mg PO DAILY [facility] Last Admin: 07/30/17 08:27 Dose: 40 mg Gabapentin (Neurontin) 100 mg PO TID [facility] Last Admin: 07/30/17 17:07 Dose: 100 mg Glipizide (Glucotrol Xl) 10 mg PO BID [facility] Last Admin: 07/30/17 17:06 Dose: 10 mg Heparin Sodium (Porcine) (Heparin) 5,000 units SC Q12 [facility] PRN Reason: Protocol Last Admin: 07/30/17 20:26 Dose: 5,000 units Hydralazine HCl (Apresoline) 100 mg PO Q6H [facility] Last Admin: 07/31/17 05:36 Dose: 100 mg Daptomycin 680 mg/ Sodium (Chloride) 100 mls @ 100 mls/hr IVPB QOTHERDAY [facility] Last Admin: 07/30/17 11:54 Dose: 100 mls/hr Insulin Human Regular (Humulin R) 0 units SC ACHS [facility] PRN Reason: Protocol Last Admin: 07/31/17 06:54 Dose: 3 units Magnesium Oxide (Mag-Ox) 400 mg PO BID [facility] Last Admin: 07/30/17 17:07 Dose: 400 mg Multivitamins/Minerals (Therapeutic-M Tab) 1 tab PO DAILY [facility] Last Admin: 07/30/17 08:29 Dose: 1 tab Mupirocin (Bactroban Ointment) 1 applic TOP QD7 [facility] Last Admin: 07/30/17 08:23 Dose: 1 applic Pantoprazole Sodium (Protonix Ec Tab) 40 mg PO DAILY [facility] Last Admin: 07/30/17 08:29 Dose: 40 mg Sitagliptin Phosphate (Januvia) 25 mg PO DAILY [facility] Last Admin: 07/30/17 08:27 Dose: 25 mg Sodium Bicarbonate (Sodium Bicarbonate Tab) 650 mg PO BID [facility] Last Admin: 07/30/17 08:29 Dose: 650 mg Sodium Polystyrene Sulfonate (Kayexalate Oral Susp) 15 gm PO QOTHERDAY@1200 [facility] Last Admin: 07/30/17 11:55 Dose: 15 gm Vitamin D (Vitamin D 400 Intl Units Tab) 400 intlu PO DAILY [facility] Last Admin: 07/30/17 08:29 Dose: 400 intlu - Labs Labs: 07/28/17 05:30 07/28/17 05:30 - Constitutional Appears: Well, Non-toxic, No Acute Distress - Extremities Exam Additional comments: LE focused exam: Vasc: DP pulses nonpalpable b/l. PT pulses palpable 1/4 b/l. Previously noted increased edema to RLE decreased at this time. Skin temperature warm to warm from proximal to distal stump. Derm: Ulceration noted to lateral aspect of right foot measuring roughly 2.3 cm x 0.4 cm x 0.3 cm with granular base and fibrotic border with minimal maceration noted to periwound area, improving. Minimal serous drainage with no malodor noted today. No purulence, no fluctuance, periwound erythema or other clinical infection noted at this time. 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 No POP noted to ulceration site - Neurological Exam Neurological Exam: Alert, Awake, Oriented x3 - Psychiatric Exam Psychiatric exam: Normal Affect, Normal Mood Assessment and Plan - Assessment and Plan (Free Text) Assessment: 46 year old male with PMH of CKD, OM Right foot, DM II with Neuropathy, bilateral Charcot with right plantar ulceration secondary to DM and Charcot deformity Plan: Patient seen and evaluated at bedside. Discussed plan with attending Dr. Medina Charts, labs and vitals reviewed Dressing changed with Mupirocin ointment to wound, betadine to macerated tissue , DSD and DAVID Patient to continue abx until 08/05 Patient to continue PT Pt to be full weightbearing to tolerance with use of [place] Walker to right lower extremity. Podiatry to continue to follow while in house Upon DC patient will f/u with Dr. Medina for continued wound care
[2017-07-31 09:16] LABS: CALCIUM 9.1 mg/dL (8.4-10.2); MAGNESIUM 1.9 MG/DL (1.6-2.3); PHOSPHOROUS 4.3 mg/dl (2.5-4.5); POTASSIUM 4.6 MMOL/L (3.6-5.0)
--- NOTE | 2017-07-31 10:09 | PN ---
DATE: 07/31/2017 SUBJECTIVE: The patient is seen and examined. Interim events noted. Consults noted and appreciated. Nephrology followup and intervention noted and appreciated. The patient remains in transitional care unit, on IV antibiotics for osteomyelitis. The patient feels okay. No specific complaints. No chest pain. No shortness of breath. Foot pain is adequately controlled. PHYSICAL EXAMINATION: GENERAL: The patient is in no acute distress. VITAL SIGNS: Stable. HEART: S1 and S2, normal and regular. LUNGS: Good bilateral air entry. ABDOMEN: Soft and nontender. EXTREMITIES: The patient is status post amputation and osteomyelitis. No edema. No calf swelling. No tenderness. No acute ischemia. 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 DIAGNOSTIC DATA: Available diagnostic data reviewed. ASSESSMENT: Overall, the patient's general medical condition is stable. PLAN: As ordered. Joel Lake MD
[2017-08-01] MEDS: Insulin Regular 100 units/ml SC SCH ×4 (06:59→21:34)
--- NOTE | 2017-08-01 07:52 | CP.PCM.PN ---
Subjective - Date & Time of Evaluation Date of Evaluation: 08/01/17 Time of Evaluation: 07:50 - Subjective Subjective: Podiatry- Dr. 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 Patient seen laying comfortably at bedside, AA0x3, and in NAD. Denies acute events overnight. States that he has been walking around on the floor with use of his [place] boot. Denies pain to ulceration. States that b/l LE edema has diminished. Denies any further pedal complaints at this time. Denies N/V/F/C/CP/SOB Objective - Vital Signs/Intake and Output Vital Signs (last 24 hours): Temp Pulse Resp BP Pulse Ox 97.3 F L 80 20 133/72 97 07/31/17 22:29 08/01/17 05:58 07/31/17 22:29 08/01/17 05:58 07/31/17 22:29 - Medications Medications: Current Medications Acetaminophen (Tylenol 325mg Tab) 650 mg PO Q6 PRN PRN Reason: Pain, moderate (4-7) Last Admin: 07/21/17 21:55 Dose: 650 mg Allopurinol (Zyloprim) 100 mg PO DAILY [facility] Last Admin: 07/31/17 08:48 Dose: 100 mg Amlodipine Besylate (Norvasc) 10 mg PO DAILY [facility] Last Admin: 07/31/17 08:55 Dose: 10 mg Bupropion HCl (Wellbutrin) 75 mg PO BID [facility] Last Admin: 07/31/17 17:05 Dose: 75 mg Calcitriol (Rocaltrol) 0.25 mcg PO MWF [facility] Last Admin: 07/31/17 08:48 Dose: 0.25 mcg Calcium Acetate (Phoslo) 1,334 mg PO WM@0900,1300,1700 [facility] Last Admin: 07/31/17 17:05 Dose: 1,334 mg Carvedilol (Coreg) 6.25 mg PO Q12 [facility] Last Admin: 07/31/17 21:06 Dose: 6.25 mg Clonidine HCl (Catapres) 0.3 mg PO Q8 [facility] Last Admin: 08/01/17 00:00 Dose: 0.3 mg Ferrous Sulfate (Feosol) 325 mg PO BID [facility] Last Admin: 07/31/17 17:04 Dose: 325 mg Fludrocortisone Acetate (Florinef) 0.05 mg PO QOTHERDAY [facility] Last Admin: 07/29/17 08:22 Dose: Not Given Folic Acid (Folic Acid) 1 mg PO DAILY [facility] Last Admin: 07/31/17 08:48 Dose: 1 mg Furosemide (Lasix) 20 mg PO DAILY@1700 [facility] Last Admin: 07/31/17 17:06 Dose: 20 mg Furosemide (Lasix) 40 mg PO DAILY [facility] Last Admin: 07/31/17 08:50 Dose: 40 mg Gabapentin (Neurontin) 100 mg PO TID [facility] Last Admin: 07/31/17 17:05 Dose: 100 mg Glipizide (Glucotrol Xl) 10 mg PO BID [facility] Last Admin: 07/31/17 17:04 Dose: 10 mg Hydralazine HCl (Apresoline) 100 mg PO Q6H [facility] Last Admin: 08/01/17 05:58 Dose: 100 mg Daptomycin 680 mg/ Sodium (Chloride) 100 mls @ 100 mls/hr IVPB QOTHERDAY [facility] Last Admin: 07/30/17 11:54 Dose: 100 mls/hr Insulin Human Regular (Humulin R) 0 units SC [facility] PRN Reason: Protocol Last Admin: 08/01/17 06:59 Dose: 2 units Magnesium Oxide (Mag-Ox) 400 mg PO BID [facility] Last Admin: 07/31/17 17:05 Dose: 400 mg Multivitamins/Minerals (Therapeutic-M Tab) 1 tab PO DAILY [facility] Last Admin: 07/31/17 08:49 Dose: 1 tab Mupirocin (Bactroban Ointment) 1 applic TOP QD7 [facility] Last Admin: 07/31/17 08:45 Dose: 1 applic Pantoprazole Sodium (Protonix Ec Tab) 40 mg PO DAILY [facility] Last Admin: 07/31/17 08:49 Dose: 40 mg Sitagliptin Phosphate (Januvia) 25 mg PO DAILY [facility] Last Admin: 07/31/17 08:50 Dose: 25 mg Sodium Bicarbonate (Sodium Bicarbonate Tab) 650 mg PO BID [facility] Last Admin: 07/30/17 08:29 Dose: 650 mg Sodium Polystyrene Sulfonate (Kayexalate Oral Susp) 15 gm PO QOTHERDAY@1200 [facility] Last Admin: 07/30/17 11:55 Dose: 15 gm Vitamin D (Vitamin D 400 Intl Units Tab) 400 intlu PO DAILY [facility] Last Admin: 07/31/17 08:49 Dose: 400 intlu - Labs Labs: 07/31/17 08:20 07/31/17 08:20 - Constitutional Appears: Well, Non-toxic, No Acute Distress - Extremities Exam Additional comments: LE focused exam: Vasc: DP pulses nonpalpable b/l. PT pulses palpable 1/4 b/l. Previously noted increased edema to RLE greatly decreased at this time. Skin temperature warm to warm from proximal to distal stump. Derm: Ulceration noted to lateral aspect of right foot measuring roughly 2.3 cm x 0.4 cm x 0.3 cm with granular base and fibrotic border with minimal maceration noted to periwound area, improving. Minimal serous drainage with no malodor noted today. No purulence, no fluctuance, periwound erythema or other clinical infection noted at this time. 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 No POP noted to ulceration site - Neurological Exam Neurological Exam: Alert, Awake, Oriented x3 - Psychiatric Exam Psychiatric exam: Normal Affect, Normal Mood Assessment and Plan - Assessment and Plan (Free Text) Assessment: 46 year old male with PMH of CKD, OM Right foot, DM II with Neuropathy, bilateral Charcot with right plantar ulceration secondary to DM and Charcot deformity Plan: Patient seen and evaluated at bedside. Discussed plan with attending Dr. Medina Charts, labs and vitals reviewed Dressing changed with Mupirocin ointment to wound, betadine to macerated tissue , DSD and DAVID Patient to continue abx until 08/05 Patient to continue PT Pt to be full weightbearing to tolerance with use of [place] Walker to right lower extremity. Podiatry to continue to follow while in house Upon DC patient will f/u with Dr. Medina for continued wound care
[2017-08-01] MEDS: Magnesium Oxide 400 mg Tab UD PO SCH ×2 (08:10→17:53)
[2017-08-01] MEDS: Cholecalciferol 400 Intl Units Tab PO SCH (08:11)
[2017-08-01] MEDS: Multivitamin With Minerals Tab PO SCH (08:11)
[2017-08-01] MEDS: Pantoprazole 40 mg EC Tab PO SCH (08:11)
[2017-08-01] MEDS: GlipiZIDE 10 mg SR Tab PO SCH ×2 (08:14→17:55)
--- NOTE | 2017-08-01 08:50 | PN ---
DATE: 08/01/2017 SUBJECTIVE: The patient is seen and examined. Interim events noted. Consults noted and appreciated. Podiatry followup and intervention noted and appreciated. The patient remains in transitional care unit, on IV antibiotics for osteomyelitis. The patient feels okay. No specific complaints. No chest pain. No shortness of breath. PHYSICAL EXAMINATION: GENERAL: The patient is in no acute distress. VITAL SIGNS: Stable. Physical exam is essentially unchanged. DIAGNOSTIC DATA: Available diagnostic data reviewed. ASSESSMENT: Overall, the patient's general medical condition is stable. PLAN: As ordered. Joel Lake MD
[2017-08-01] MEDS: Sod Polystyrene Sulf 15 gm/60 ml Oral Susp PO SCH (13:06)
--- NOTE | 2017-08-01 17:38 | CP.PCM.PN ---
Objective - Vital Signs/Intake and Output Vital Signs (last 24 hours): Temp Pulse Resp BP Pulse Ox 97.5 F L 72 20 144/87 97 08/01/17 17:37 08/01/17 17:37 08/01/17 17:37 08/01/17 17:37 08/01/17 17:37 - Medications Medications: Current Medications Acetaminophen (Tylenol 325mg Tab) 650 mg PO Q6 PRN PRN Reason: Pain, moderate (4-7) Last Admin: 07/21/17 21:55 Dose: 650 mg Allopurinol (Zyloprim) 100 mg PO DAILY [facility] Last Admin: 08/01/17 08:15 Dose: 100 mg Amlodipine Besylate (Norvasc) 10 mg PO DAILY [facility] Last Admin: 08/01/17 08:14 Dose: 10 mg Bupropion HCl (Wellbutrin) 75 mg PO BID [facility] Last Admin: 08/01/17 08:13 Dose: 75 mg Calcitriol (Rocaltrol) 0.25 mcg PO MWF [facility] Last Admin: 07/31/17 08:48 Dose: 0.25 mcg Calcium Acetate (Phoslo) 1,334 mg PO WM@0900,1300,1700 [facility] Last Admin: 08/01/17 13:06 Dose: 1,334 mg Carvedilol (Coreg) 6.25 mg PO Q12 [facility] Last Admin: 08/01/17 08:14 Dose: 6.25 mg Clonidine HCl (Catapres) 0.3 mg PO Q8 [facility] Last Admin: 08/01/17 08:13 Dose: 0.3 mg Ferrous Sulfate (Feosol) 325 mg PO BID [facility] Last Admin: 08/01/17 08:13 Dose: 325 mg Fludrocortisone Acetate (Florinef) 0.05 mg PO QOTHERDAY [facility] Last Admin: 07/29/17 08:22 Dose: Not Given Folic Acid (Folic Acid) 1 mg PO DAILY [facility] Last Admin: 08/01/17 08:13 Dose: 1 mg Furosemide (Lasix) 20 mg PO DAILY@1700 [facility] Last Admin: 07/31/17 17:06 Dose: 20 mg Furosemide (Lasix) 40 mg PO DAILY [facility] Last Admin: 08/01/17 08:16 Dose: 40 mg Gabapentin (Neurontin) 100 mg PO TID [facility] Last Admin: 08/01/17 13:06 Dose: 100 mg Glipizide (Glucotrol Xl) 10 mg PO BID [facility] Last Admin: 08/01/17 08:14 Dose: 10 mg Hydralazine HCl (Apresoline) 100 mg PO Q8H [facility] Daptomycin 680 mg/ Sodium (Chloride) 100 mls @ 100 mls/hr IVPB QOTHERDAY [facility] Last Admin: 08/01/17 13:07 Dose: 100 mls/hr Insulin Human Regular (Humulin R) 0 units SC ACHS [facility] PRN Reason: Protocol Last Admin: 08/01/17 11:47 Dose: 3 units Magnesium Oxide (Mag-Ox) 400 mg PO BID [facility] Last Admin: 08/01/17 08:10 Dose: 400 mg Multivitamins/Minerals (Therapeutic-M Tab) 1 tab PO DAILY [facility] Last Admin: 08/01/17 08:11 Dose: 1 tab Mupirocin (Bactroban Ointment) 1 applic TOP QD7 [facility] Last Admin: 08/01/17 08:24 Dose: 1 applic Pantoprazole Sodium (Protonix Ec Tab) 40 mg PO DAILY [facility] Last Admin: 08/01/17 08:11 Dose: 40 mg Sitagliptin Phosphate (Januvia) 25 mg PO DAILY [facility] Last Admin: 08/01/17 08:10 Dose: 25 mg Sodium Bicarbonate (Sodium Bicarbonate Tab) 650 mg PO BID [facility] Last Admin: 07/30/17 08:29 Dose: 650 mg Sodium Polystyrene Sulfonate (Kayexalate Oral Susp) 15 gm PO QOTHERDAY@1200 [facility] Last Admin: 08/01/17 13:06 Dose: 15 gm Vitamin D (Vitamin D 400 Intl Units Tab) 400 intlu PO DAILY [facility] Last Admin: 08/01/17 08:11 Dose: 400 intlu - Labs Labs: 07/31/17 08:20 07/31/17 08:20 Assessment and Plan (1) Hyperkalemia Status: Acute (2) Hypertensive CKD (chronic kidney disease) Status: Acute (3) Chronic kidney disease-mineral and bone disorder Status: Acute (4) Anemia in chronic kidney disease (CKD) Status: Chronic (5) CKD (chronic kidney disease) stage 4, GFR 15-29 ml/min Status: Chronic (6) Osteomyelitis Status: Suspected
[2017-08-02] MEDS: Insulin Regular 100 units/ml SC SCH ×4 (06:39→22:09)
--- NOTE | 2017-08-02 06:49 | CP.PCM.PN ---
Subjective - Date & Time of Evaluation Date of Evaluation: 08/02/17 Time of Evaluation: 06:49 - Subjective Subjective: Podiatry progress note- Dr. 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 Patient seen resting comfortably at bedside, AA0x3, and in NAD. Denies acute events overnight. Pt states that he has been continuing to walk around on the hospital floor with use of his [place] boot. Pt denies pain to ulceration. States that B/L LE edema has diminished. Denies any further pedal complaints at this time. Denies N/V/F/C/CP/SOB Objective - Vital Signs/Intake and Output Vital Signs (last 24 hours): Temp Pulse Resp BP Pulse Ox 97 F L 76 20 99/62 L 97 08/01/17 20:11 08/02/17 06:09 08/01/17 20:11 08/02/17 06:09 08/01/17 20:11 - Medications Medications: Current Medications Acetaminophen (Tylenol 325mg Tab) 650 mg PO Q6 PRN PRN Reason: Pain, moderate (4-7) Last Admin: 07/21/17 21:55 Dose: 650 mg Allopurinol (Zyloprim) 100 mg PO DAILY [facility] Last Admin: 08/01/17 08:15 Dose: 100 mg Amlodipine Besylate (Norvasc) 10 mg PO DAILY [facility] Last Admin: 08/01/17 08:14 Dose: 10 mg Bupropion HCl (Wellbutrin) 75 mg PO BID [facility] Last Admin: 08/01/17 17:55 Dose: 75 mg Calcitriol (Rocaltrol) 0.25 mcg PO MWF [facility] Last Admin: 07/31/17 08:48 Dose: 0.25 mcg Calcium Acetate (Phoslo) 1,334 mg PO WM@0900,1300,1700 [facility] Last Admin: 08/01/17 17:54 Dose: 1,334 mg Carvedilol (Coreg) 6.25 mg PO Q12 [facility] Last Admin: 08/01/17 21:33 Dose: 6.25 mg Clonidine HCl (Catapres) 0.3 mg PO Q8 [facility] Last Admin: 08/02/17 00:32 Dose: 0.3 mg Ferrous Sulfate (Feosol) 325 mg PO BID [facility] Last Admin: 08/01/17 17:52 Dose: 325 mg Fludrocortisone Acetate (Florinef) 0.05 mg PO QOTHERDAY [facility] Last Admin: 07/29/17 08:22 Dose: Not Given Folic Acid (Folic Acid) 1 mg PO DAILY [facility] Last Admin: 08/01/17 08:13 Dose: 1 mg Furosemide (Lasix) 20 mg PO DAILY@1700 [facility] Last Admin: 08/01/17 17:56 Dose: 20 mg Furosemide (Lasix) 40 mg PO DAILY [facility] Last Admin: 08/01/17 08:16 Dose: 40 mg Gabapentin (Neurontin) 100 mg PO TID [facility] Last Admin: 08/01/17 17:53 Dose: 100 mg Glipizide (Glucotrol Xl) 10 mg PO BID [facility] Last Admin: 08/01/17 17:55 Dose: 10 mg Hydralazine HCl (Apresoline) 100 mg PO Q8H [facility] Last Admin: 08/02/17 06:09 Dose: Not Given Daptomycin 680 mg/ Sodium (Chloride) 100 mls @ 100 mls/hr IVPB QOTHERDAY [facility] Last Admin: 08/01/17 13:07 Dose: 100 mls/hr Insulin Human Regular (Humulin R) 0 units SC ACHS [facility] PRN Reason: Protocol Last Admin: 08/02/17 06:39 Dose: 2 units Magnesium Oxide (Mag-Ox) 400 mg PO BID [facility] Last Admin: 08/01/17 17:53 Dose: 400 mg Multivitamins/Minerals (Therapeutic-M Tab) 1 tab PO DAILY [facility] Last Admin: 08/01/17 08:11 Dose: 1 tab Mupirocin (Bactroban Ointment) 1 applic TOP QD7 [facility] Last Admin: 08/01/17 08:24 Dose: 1 applic Pantoprazole Sodium (Protonix Ec Tab) 40 mg PO DAILY [facility] Last Admin: 08/01/17 08:11 Dose: 40 mg Sitagliptin Phosphate (Januvia) 25 mg PO DAILY [facility] Last Admin: 08/01/17 08:10 Dose: 25 mg Sodium Bicarbonate (Sodium Bicarbonate Tab) 650 mg PO BID [facility] Last Admin: 07/30/17 08:29 Dose: 650 mg Sodium Polystyrene Sulfonate (Kayexalate Oral Susp) 15 gm PO QOTHERDAY@1200 [facility] Last Admin: 08/01/17 13:06 Dose: 15 gm Vitamin D (Vitamin D 400 Intl Units Tab) 400 intlu PO DAILY [facility] Last Admin: 08/01/17 08:11 Dose: 400 intlu - Labs Labs: 07/31/17 08:20 07/31/17 08:20 - Constitutional Appears: Well, Non-toxic, No Acute Distress - Extremities Exam Additional comments: LE focused exam: Vasc: DP pulses nonpalpable B/L. PT pulses palpable 1/4 B/L. Previously noted increased edema to RLE greatly decreased at this time. Skin temperature warm to warm from proximal to distal stump. Derm: Ulceration noted to lateral aspect of right foot measuring roughly 2.0 cm x 0.5 cm x 0.2 cm with granular base and fibrotic border with minimal maceration noted to periwound area, improving. Minimal serous drainage with no malodor noted today. No purulence, no fluctuance, periwound erythema or other clinical infection noted at this time. 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 No POP noted to ulceration site - Neurological Exam Neurological Exam: Alert, Awake, Oriented x3 - Psychiatric Exam Psychiatric exam: Normal Affect, Normal Mood Assessment and Plan - Assessment and Plan (Free Text) Assessment: 46 year old male with PMHx of CKD, OM Right foot, DM II with Neuropathy, bilateral Charcot with R foot plantar ulceration secondary to DM and Charcot deformity Plan: Patient seen and evaluated at bedside. Discussed plan with attending Dr. Medina Charts, labs and vitals reviewed Dressing changed with Mupirocin ointment to wound, betadine to hair wound macerated tissue, DSD and DAVID Patient to continue abx until 08/05 when he is expected to be D/C Patient to continue PT Pt to be full weightbearing to tolerance with use of [place] Walker to right lower extremity Podiatry to continue to follow while in house Upon DC patient will f/u with Dr. Medina for continued wound care
[2017-08-02] MEDS: Pantoprazole 40 mg EC Tab PO SCH (09:35)
[2017-08-02] MEDS: Magnesium Oxide 400 mg Tab UD PO SCH ×2 (09:35→18:02)
[2017-08-02] MEDS: Cholecalciferol 400 Intl Units Tab PO SCH (09:36)
[2017-08-02] MEDS: GlipiZIDE 10 mg SR Tab PO SCH ×2 (09:36→18:02)
[2017-08-02] MEDS: Multivitamin With Minerals Tab PO SCH (09:36)
--- NOTE | 2017-08-02 12:06 | CP.PCM.PN ---
Subjective - Date & Time of Evaluation Date of Evaluation: 08/02/17 Time of Evaluation: 09:00 - Subjective Subjective: slow progress iv rx to contiinue Objective - Vital Signs/Intake and Output Vital Signs (last 24 hours): Temp Pulse Resp BP Pulse Ox 97.3 F L 72 20 137/73 98 08/02/17 09:47 08/02/17 09:47 08/02/17 09:47 08/02/17 09:47 08/02/17 09:47 - Medications Medications: Current Medications Acetaminophen (Tylenol 325mg Tab) 650 mg PO Q6 PRN PRN Reason: Pain, moderate (4-7) Last Admin: 07/21/17 21:55 Dose: 650 mg Allopurinol (Zyloprim) 100 mg PO DAILY [facility] Last Admin: 08/02/17 09:36 Dose: 100 mg Amlodipine Besylate (Norvasc) 10 mg PO DAILY [facility] Last Admin: 08/02/17 09:36 Dose: 10 mg Bupropion HCl (Wellbutrin) 75 mg PO BID [facility] Last Admin: 08/02/17 09:37 Dose: 75 mg Calcitriol (Rocaltrol) 0.25 mcg PO MWF [facility] Last Admin: 08/02/17 09:35 Dose: 0.25 mcg Calcium Acetate (Phoslo) 1,334 mg PO WM@0900,1300,1700 [facility] Last Admin: 08/02/17 09:37 Dose: 1,334 mg Carvedilol (Coreg) 6.25 mg PO Q12 [facility] Last Admin: 08/02/17 09:36 Dose: 6.25 mg Clonidine HCl (Catapres) 0.3 mg PO Q8 [facility] Last Admin: 08/02/17 09:36 Dose: 0.3 mg Ferrous Sulfate (Feosol) 325 mg PO BID [facility] Last Admin: 08/02/17 09:37 Dose: 325 mg Fludrocortisone Acetate (Florinef) 0.05 mg PO QOTHERDAY [facility] Last Admin: 07/29/17 08:22 Dose: Not Given Folic Acid (Folic Acid) 1 mg PO DAILY [facility] Last Admin: 08/02/17 09:36 Dose: 1 mg Furosemide (Lasix) 20 mg PO DAILY@1700 [facility] Last Admin: 08/01/17 17:56 Dose: 20 mg Furosemide (Lasix) 40 mg PO DAILY [facility] Last Admin: 08/02/17 09:35 Dose: 40 mg Gabapentin (Neurontin) 100 mg PO TID [facility] Last Admin: 08/02/17 09:36 Dose: 100 mg Glipizide (Glucotrol Xl) 10 mg PO BID [facility] Last Admin: 08/02/17 09:36 Dose: 10 mg Hydralazine HCl (Apresoline) 100 mg PO Q8H [facility] Last Admin: 08/02/17 06:09 Dose: Not Given Daptomycin 680 mg/ Sodium (Chloride) 100 mls @ 100 mls/hr IVPB QOTHERDAY [facility] Last Admin: 08/01/17 13:07 Dose: 100 mls/hr Insulin Human Regular (Humulin R) 0 units SC ACHS [facility] PRN Reason: Protocol Last Admin: 08/02/17 06:39 Dose: 2 units Magnesium Oxide (Mag-Ox) 400 mg PO BID [facility] Last Admin: 08/02/17 09:35 Dose: 400 mg Multivitamins/Minerals (Therapeutic-M Tab) 1 tab PO DAILY [facility] Last Admin: 08/02/17 09:36 Dose: 1 tab Mupirocin (Bactroban Ointment) 1 applic TOP QD7 [facility] Last Admin: 08/02/17 09:41 Dose: 1 applic Pantoprazole Sodium (Protonix Ec Tab) 40 mg PO DAILY [facility] Last Admin: 08/02/17 09:35 Dose: 40 mg Sitagliptin Phosphate (Januvia) 25 mg PO DAILY [facility] Last Admin: 08/02/17 09:36 Dose: 25 mg Sodium Bicarbonate (Sodium Bicarbonate Tab) 650 mg PO BID [facility] Last Admin: 07/30/17 08:29 Dose: 650 mg Sodium Polystyrene Sulfonate (Kayexalate Oral Susp) 15 gm PO QOTHERDAY@1200 [facility] Last Admin: 08/01/17 13:06 Dose: 15 gm Vitamin D (Vitamin D 400 Intl Units Tab) 400 intlu PO DAILY [facility] Last Admin: 08/02/17 09:36 Dose: 400 intlu - Labs Labs: 07/31/17 08:20 07/31/17 08:20 - Constitutional Appears: Non-toxic, Chronically Ill - Head Exam Head Exam: NORMOCEPHALIC - Eye Exam Eye Exam: PERRL. absent: Scleral icterus - ENT Exam ENT Exam: Mucous Membranes Dry - Neck Exam Neck Exam: absent: Lymphadenopathy - Respiratory Exam Respiratory Exam: Decreased Breath Sounds - Cardiovascular Exam Cardiovascular Exam: REGULAR RHYTHM - GI/Abdominal Exam GI & Abdominal Exam: Distended, Soft - Rectal Exam Rectal Exam: Deferred - Exam Exam: NORMAL INSPECTION Assessment and Plan (1) Cellulitis of right foot Status: Acute
--- NOTE | 2017-08-02 15:01 | PN ---
DATE: 08/02/2017 SUBJECTIVE: The patient is seen and examined. Interim events noted. Consults noted and appreciated. The patient remains in transitional care unit. The patient feels okay. Denies any specific complaints. No chest pain. No shortness of breath. PHYSICAL EXAMINATION: GENERAL: The patient is in no acute distress. VITAL SIGNS: Stable. HEART: S1 and S2 normal and regular. LUNGS: Good bilateral air entry. ABDOMEN: Soft and nontender. EXTREMITIES: The patient is status post amputation and osteomyelitis, on IV antibiotic. CENTRAL NERVOUS SYSTEM: Essentially unchanged. DIAGNOSTIC DATA: Available diagnostic data reviewed. ASSESSMENT AND PLAN: Overall, the patient's general medical condition is stable. Plan as ordered. Joel Lake MD
[2017-08-03] MEDS: Insulin Regular 100 units/ml SC SCH ×4 (07:01→21:52)
[2017-08-03] MEDS: GlipiZIDE 10 mg SR Tab PO SCH ×2 (08:52→17:31)
[2017-08-03] MEDS: Magnesium Oxide 400 mg Tab UD PO SCH ×2 (08:53→17:32)
[2017-08-03] MEDS: Multivitamin With Minerals Tab PO SCH (08:54)
[2017-08-03] MEDS: Cholecalciferol 400 Intl Units Tab PO SCH (08:54)
[2017-08-03] MEDS: Pantoprazole 40 mg EC Tab PO SCH (08:54)
--- NOTE | 2017-08-03 11:17 | PN ---
DATE: 08/03/2017 SUBJECTIVE: The patient is seen and examined. Interim events noted. Consults noted and appreciated. Infectious disease followup and intervention noted and appreciated. The patient remains in transitional care unit, feels much better, no specific issues reported by nursing staff. Medications were reordered. PHYSICAL EXAMINATION: GENERAL: The patient is in no acute distress. VITAL SIGNS: Stable. HEART: S1 and S2 normal and regular. LUNGS: Good bilateral air entry. ABDOMEN: Soft and nontender. EXTREMITIES: No edema, no calf swelling. No tenderness. No acute ischemia. The patient is status post amputation. The patient is also having osteomyelitis, podiatry followup arrangement noted and appreciated. ASSESSMENT: Overall, the patient's general medical condition is stable. PLAN: Plan as ordered. Joel Lake MD
[2017-08-03] MEDS: Sod Polystyrene Sulf 15 gm/60 ml Oral Susp PO SCH (12:43)
--- NOTE | 2017-08-03 19:29 | CP.PCM.PN ---
Subjective - Date & Time of Evaluation Date of Evaluation: 08/03/17 Time of Evaluation: 16:30 - Subjective Subjective: Podiatry Progress Note - Dr. Brennan 46 year old male seen at bedside for R plantar foot ulceration secondary to DM and Charcot deformity with history of Chopart's amputation. Patient seen resting comfortably at bedside, AAOx3, and NAD. Denies acute events overnight. Pt states that he has been continuing to walk around on the hospital floor with use of his [place] boot. Pt denies any pain to his RLE today. Patient denies N/V/F/ D/C/SOB. No other pedal complaints at this time. Objective - Vital Signs/Intake and Output Vital Signs (last 24 hours): Temp Pulse Resp BP Pulse Ox 97.5 F L 75 20 145/72 99 08/03/17 17:31 08/03/17 17:31 08/03/17 17:31 08/03/17 17:31 08/03/17 17:31 - Medications Medications: Current Medications Acetaminophen (Tylenol 325mg Tab) 650 mg PO Q6 PRN PRN Reason: Pain, moderate (4-7) Last Admin: 07/21/17 21:55 Dose: 650 mg Allopurinol (Zyloprim) 100 mg PO DAILY [facility] Last Admin: 08/03/17 08:55 Dose: 100 mg Amlodipine Besylate (Norvasc) 10 mg PO DAILY [facility] Last Admin: 08/03/17 08:53 Dose: 10 mg Bupropion HCl (Wellbutrin) 75 mg PO BID [facility] Last Admin: 08/03/17 17:32 Dose: 75 mg Calcitriol (Rocaltrol) 0.25 mcg PO MWF [facility] Last Admin: 08/02/17 09:35 Dose: 0.25 mcg Calcium Acetate (Phoslo) 1,334 mg PO WM@0900,1300,1700 [facility] Last Admin: 08/03/17 17:32 Dose: 1,334 mg Carvedilol (Coreg) 6.25 mg PO Q12 [facility] Last Admin: 08/03/17 08:51 Dose: 6.25 mg Clonidine HCl (Catapres) 0.3 mg PO Q8 [facility] Last Admin: 08/03/17 17:30 Dose: 0.3 mg Ferrous Sulfate (Feosol) 325 mg PO BID [facility] Last Admin: 08/03/17 17:31 Dose: 325 mg Fludrocortisone Acetate (Florinef) 0.05 mg PO QOTHERDAY [facility] Last Admin: 07/29/17 08:22 Dose: Not Given Folic Acid (Folic Acid) 1 mg PO DAILY [facility] Last Admin: 08/03/17 08:52 Dose: 1 mg Furosemide (Lasix) 20 mg PO DAILY@1700 [facility] Last Admin: 08/03/17 17:31 Dose: 20 mg Furosemide (Lasix) 40 mg PO DAILY [facility] Last Admin: 08/03/17 08:53 Dose: 40 mg Gabapentin (Neurontin) 100 mg PO TID [facility] Last Admin: 08/03/17 17:32 Dose: 100 mg Glipizide (Glucotrol Xl) 10 mg PO BID [facility] Last Admin: 08/03/17 17:31 Dose: 10 mg Heparin Sodium (Porcine) (Heparin) 5,000 units SC Q12 [facility] PRN Reason: Protocol Last Admin: 08/03/17 08:52 Dose: 5,000 units Hydralazine HCl (Apresoline) 100 mg PO Q8H [facility] Last Admin: 08/03/17 13:31 Dose: 100 mg Daptomycin 680 mg/ Sodium (Chloride) 100 mls @ 100 mls/hr IVPB QOTHERDAY [facility] Last Admin: 08/03/17 13:30 Dose: 100 mls/hr Insulin Human Regular (Humulin R) 0 units SC ACHS [facility] PRN Reason: Protocol Last Admin: 08/03/17 17:31 Dose: 2 units Magnesium Oxide (Mag-Ox) 400 mg PO BID [facility] Last Admin: 08/03/17 17:32 Dose: 400 mg Multivitamins/Minerals (Therapeutic-M Tab) 1 tab PO DAILY [facility] Last Admin: 08/03/17 08:54 Dose: 1 tab Mupirocin (Bactroban Ointment) 1 applic TOP QD7 [facility] Last Admin: 08/03/17 08:50 Dose: 1 applic Pantoprazole Sodium (Protonix Ec Tab) 40 mg PO DAILY [facility] Last Admin: 08/03/17 08:54 Dose: 40 mg Sitagliptin Phosphate (Januvia) 25 mg PO DAILY [facility] Last Admin: 08/03/17 08:52 Dose: 25 mg Sodium Bicarbonate (Sodium Bicarbonate Tab) 650 mg PO BID [facility] Last Admin: 07/30/17 08:29 Dose: 650 mg Sodium Polystyrene Sulfonate (Kayexalate Oral Susp) 15 gm PO QOTHERDAY@1200 [facility] Last Admin: 08/03/17 12:43 Dose: 15 gm Vitamin D (Vitamin D 400 Intl Units Tab) 400 intlu PO DAILY [facility] Last Admin: 08/03/17 08:54 Dose: 400 intlu - Labs Labs: 07/31/17 08:20 07/31/17 08:20 - Constitutional Appears: Well, Non-toxic, No Acute Distress - Extremities Exam Additional comments: LE focused exam: Vasc: DP pulses nonpalpable B/L. PT pulses palpable 1/4 B/L. Previously noted increased edema to RLE greatly decreased at this time. Skin temperature warm to warm from proximal to distal stump. Derm: Ulceration noted to lateral aspect of right foot measuring roughly 2.0 cm x 0.5 cm x 0.2 cm with granular base and fibrotic border with minimal maceration noted to periwound area, improving. No purulence, no fluctuance, periwound erythema, malodor, drainage, or other clinical infection noted at this time. 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 No POP noted to ulceration site - Neurological Exam Neurological Exam: Alert, Awake, Oriented x3 - Psychiatric Exam Psychiatric exam: Normal Affect, Normal Mood Assessment and Plan - Assessment and Plan (Free Text) Assessment: 46 year old male with PMHx of CKD, OM Right foot, DM II with Neuropathy, bilateral Charcot with R foot plantar ulceration secondary to DM and Charcot deformity Plan: Patient seen and evaluated at bedside. Discussed plan with attending Dr. Medina Charts, labs and vitals reviewed Bactroban applied to ulceration and dressed with 4x4s and kerlix Patient to continue abx until 08/05 when he is expected to be D/C Patient to continue PT Pt to be full weightbearing to tolerance with use of KOOTENAI Walker to right lower extremity Podiatry to continue to follow while in house Upon DC patient will f/u with Dr. Medina for continued wound care
[2017-08-04] MEDS: Insulin Regular 100 units/ml SC SCH ×4 (06:51→21:21)
[2017-08-04] MEDS: Magnesium Oxide 400 mg Tab UD PO SCH ×2 (08:50→17:04)
[2017-08-04] MEDS: Pantoprazole 40 mg EC Tab PO SCH (08:50)
[2017-08-04] MEDS: Cholecalciferol 400 Intl Units Tab PO SCH (08:51)
[2017-08-04] MEDS: Multivitamin With Minerals Tab PO SCH (08:51)
[2017-08-04] MEDS: GlipiZIDE 10 mg SR Tab PO SCH ×2 (08:52→17:04)
--- NOTE | 2017-08-04 09:27 | CP.PCM.PN ---
Subjective - Date & Time of Evaluation Date of Evaluation: 08/04/17 Time of Evaluation: 12:05 - Subjective Subjective: Podiatry Progress Note - Dr. Brennan 46 year old male seen at bedside for R plantar foot ulceration secondary to DM and Charcot deformity with history of Chopart's amputation. Patient seen resting comfortably at bedside, AAOx3, and NAD. Denies acute events overnight. Pt states that he has had no problems ambulating in [place] walker. Patient states his right leg is more swollen today, and admits that he has been walking around more. Pt denies any pain to his RLE today. Patient denies N/V/F/D/C/SOB. No other pedal complaints at this time. Objective - Vital Signs/Intake and Output Vital Signs (last 24 hours): Temp Pulse Resp BP Pulse Ox 97.7 F 76 20 121/66 100 08/04/17 08:41 08/04/17 08:50 08/04/17 08:41 08/04/17 08:50 08/04/17 08:41 - Medications Medications: Current Medications Acetaminophen (Tylenol 325mg Tab) 650 mg PO Q6 PRN PRN Reason: Pain, moderate (4-7) Last Admin: 07/21/17 21:55 Dose: 650 mg Allopurinol (Zyloprim) 100 mg PO DAILY [facility] Last Admin: 08/04/17 08:51 Dose: 100 mg Amlodipine Besylate (Norvasc) 10 mg PO DAILY [facility] Last Admin: 08/04/17 08:50 Dose: 10 mg Bupropion HCl (Wellbutrin) 75 mg PO BID [facility] Last Admin: 08/04/17 08:51 Dose: 75 mg Calcitriol (Rocaltrol) 0.25 mcg PO MWF [facility] Last Admin: 08/02/17 09:35 Dose: 0.25 mcg Calcium Acetate (Phoslo) 1,334 mg PO WM@0900,1300,1700 [facility] Last Admin: 08/04/17 08:48 Dose: 1,334 mg Carvedilol (Coreg) 6.25 mg PO Q12 [facility] Last Admin: 08/04/17 08:49 Dose: 6.25 mg Clonidine HCl (Catapres) 0.3 mg PO Q8 [facility] Last Admin: 08/04/17 08:48 Dose: 0.3 mg Ferrous Sulfate (Feosol) 325 mg PO BID [facility] Last Admin: 08/04/17 08:49 Dose: 325 mg Fludrocortisone Acetate (Florinef) 0.05 mg PO QOTHERDAY [facility] Last Admin: 07/29/17 08:22 Dose: Not Given Folic Acid (Folic Acid) 1 mg PO DAILY [facility] Last Admin: 08/04/17 08:49 Dose: 1 mg Furosemide (Lasix) 20 mg PO DAILY@1700 [facility] Last Admin: 08/03/17 17:31 Dose: 20 mg Furosemide (Lasix) 40 mg PO DAILY [facility] Last Admin: 08/04/17 08:50 Dose: 40 mg Gabapentin (Neurontin) 100 mg PO TID [facility] Last Admin: 08/04/17 08:50 Dose: 100 mg Glipizide (Glucotrol Xl) 10 mg PO BID [facility] Last Admin: 08/04/17 08:52 Dose: 10 mg Heparin Sodium (Porcine) (Heparin) 5,000 units SC Q12 [facility] PRN Reason: Protocol Last Admin: 08/04/17 08:46 Dose: 5,000 units Hydralazine HCl (Apresoline) 100 mg PO Q8H [facility] Last Admin: 08/04/17 05:46 Dose: 100 mg Daptomycin 680 mg/ Sodium (Chloride) 100 mls @ 100 mls/hr IVPB QOTHERDAY [facility] Last Admin: 08/03/17 13:30 Dose: 100 mls/hr Insulin Human Regular (Humulin R) 0 units SC ACHS [facility] PRN Reason: Protocol Last Admin: 08/04/17 06:51 Dose: 2 units Magnesium Oxide (Mag-Ox) 400 mg PO BID [facility] Last Admin: 08/04/17 08:50 Dose: 400 mg Multivitamins/Minerals (Therapeutic-M Tab) 1 tab PO DAILY [facility] Last Admin: 08/04/17 08:51 Dose: 1 tab Mupirocin (Bactroban Ointment) 1 applic TOP QD7 [facility] Last Admin: 08/04/17 08:47 Dose: 1 applic Pantoprazole Sodium (Protonix Ec Tab) 40 mg PO DAILY [facility] Last Admin: 08/04/17 08:50 Dose: 40 mg Sitagliptin Phosphate (Januvia) 25 mg PO DAILY [facility] Last Admin: 08/04/17 08:49 Dose: 25 mg Sodium Bicarbonate (Sodium Bicarbonate Tab) 650 mg PO BID [facility] Last Admin: 07/30/17 08:29 Dose: 650 mg Sodium Polystyrene Sulfonate (Kayexalate Oral Susp) 15 gm PO QOTHERDAY@1200 [facility] Last Admin: 08/03/17 12:43 Dose: 15 gm Vitamin D (Vitamin D 400 Intl Units Tab) 400 intlu PO DAILY [facility] Last Admin: 08/04/17 08:51 Dose: 400 intlu - Labs Labs: 07/31/17 08:20 07/31/17 08:20 - Constitutional Appears: Well, Non-toxic, No Acute Distress - Extremities Exam Additional comments: LE focused exam: Vasc: DP pulses nonpalpable B/L. PT pulses palpable 1/4 B/L. Nonpitting edema noted to RLE. Skin temperature warm to warm from proximal to distal stump. Derm: Ulceration noted to lateral aspect of right foot measuring roughly 2.0 cm x 0.5 cm x 0.2 cm with granular base and fibrotic border with increased maceration noted to periwound area. No purulence, no fluctuance, periwound erythema, malodor, drainage, or other clinical infection noted at this time. 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 No POP noted to ulceration site - Neurological Exam Neurological Exam: Alert, Awake, Oriented x3 - Psychiatric Exam Psychiatric exam: Normal Affect, Normal Mood Assessment and Plan - Assessment and Plan (Free Text) Assessment: 46 year old male with PMHx of CKD, OM Right foot, DM II with Neuropathy, bilateral Charcot with R foot plantar ulceration secondary to DM and Charcot deformity Plan: Patient seen and evaluated at bedside. Discussed plan with attending Dr. Medina Charts, labs and vitals reviewed Bactroban applied to ulceration, betadine applied periwound, and RLE dressed with 4x4s and kerlix Patient to continue abx until tomorrow, 08/05/17 Pt to be full weightbearing to tolerance with use of TUSCARORA Walker to right lower extremity Plan to DC tomorrow, 08/05/17 once finished with course of abx Podiatry to continue to follow while in house Upon DC patient will f/u with Dr. Brennan for continued wound care
--- NOTE | 2017-08-04 12:49 | CP.PCM.PN ---
Subjective - Date & Time of Evaluation Date of Evaluation: 08/04/17 Time of Evaluation: 08:00 - Subjective Subjective: iv rx renewed rx in progress for right palntar wound/ cellulitis Objective - Vital Signs/Intake and Output Vital Signs (last 24 hours): Temp Pulse Resp BP Pulse Ox 97.7 F 76 20 121/66 100 08/04/17 08:41 08/04/17 08:50 08/04/17 08:41 08/04/17 08:50 08/04/17 08:41 - Medications Medications: Current Medications Acetaminophen (Tylenol 325mg Tab) 650 mg PO Q6 PRN PRN Reason: Pain, moderate (4-7) Last Admin: 07/21/17 21:55 Dose: 650 mg Allopurinol (Zyloprim) 100 mg PO DAILY [facility] Last Admin: 08/04/17 08:51 Dose: 100 mg Amlodipine Besylate (Norvasc) 10 mg PO DAILY [facility] Last Admin: 08/04/17 08:50 Dose: 10 mg Bupropion HCl (Wellbutrin) 75 mg PO BID [facility] Last Admin: 08/04/17 08:51 Dose: 75 mg Calcitriol (Rocaltrol) 0.25 mcg PO MWF [facility] Last Admin: 08/02/17 09:35 Dose: 0.25 mcg Calcium Acetate (Phoslo) 1,334 mg PO WM@0900,1300,1700 [facility] Last Admin: 08/04/17 12:37 Dose: 1,334 mg Carvedilol (Coreg) 6.25 mg PO Q12 [facility] Last Admin: 08/04/17 08:49 Dose: 6.25 mg Clonidine HCl (Catapres) 0.3 mg PO Q8 [facility] Last Admin: 08/04/17 08:48 Dose: 0.3 mg Ferrous Sulfate (Feosol) 325 mg PO BID [facility] Last Admin: 08/04/17 08:49 Dose: 325 mg Fludrocortisone Acetate (Florinef) 0.05 mg PO QOTHERDAY [facility] Last Admin: 07/29/17 08:22 Dose: Not Given Folic Acid (Folic Acid) 1 mg PO DAILY [facility] Last Admin: 08/04/17 08:49 Dose: 1 mg Furosemide (Lasix) 20 mg PO DAILY@1700 [facility] Last Admin: 08/03/17 17:31 Dose: 20 mg Furosemide (Lasix) 40 mg PO DAILY [facility] Last Admin: 08/04/17 08:50 Dose: 40 mg Gabapentin (Neurontin) 100 mg PO TID [facility] Last Admin: 08/04/17 12:37 Dose: 100 mg Glipizide (Glucotrol Xl) 10 mg PO BID [facility] Last Admin: 08/04/17 08:52 Dose: 10 mg Heparin Sodium (Porcine) (Heparin) 5,000 units SC Q12 [facility] PRN Reason: Protocol Last Admin: 08/04/17 08:46 Dose: 5,000 units Hydralazine HCl (Apresoline) 100 mg PO Q8H [facility] Last Admin: 08/04/17 05:46 Dose: 100 mg Daptomycin 680 mg/ Sodium (Chloride) 100 mls @ 100 mls/hr IVPB QOTHERDAY [facility] Last Admin: 08/03/17 13:30 Dose: 100 mls/hr Insulin Human Regular (Humulin R) 0 units SC ACHS [facility] PRN Reason: Protocol Last Admin: 08/04/17 12:36 Dose: 3 units Magnesium Oxide (Mag-Ox) 400 mg PO BID [facility] Last Admin: 08/04/17 08:50 Dose: 400 mg Multivitamins/Minerals (Therapeutic-M Tab) 1 tab PO DAILY [facility] Last Admin: 08/04/17 08:51 Dose: 1 tab Mupirocin (Bactroban Ointment) 1 applic TOP QD7 [facility] Last Admin: 08/04/17 08:47 Dose: 1 applic Pantoprazole Sodium (Protonix Ec Tab) 40 mg PO DAILY [facility] Last Admin: 08/04/17 08:50 Dose: 40 mg Sitagliptin Phosphate (Januvia) 25 mg PO DAILY [facility] Last Admin: 08/04/17 08:49 Dose: 25 mg Sodium Bicarbonate (Sodium Bicarbonate Tab) 650 mg PO BID [facility] Last Admin: 07/30/17 08:29 Dose: 650 mg Sodium Polystyrene Sulfonate (Kayexalate Oral Susp) 15 gm PO QOTHERDAY@1200 [facility] Last Admin: 08/03/17 12:43 Dose: 15 gm Vitamin D (Vitamin D 400 Intl Units Tab) 400 intlu PO DAILY [facility] Last Admin: 08/04/17 08:51 Dose: 400 intlu - Labs Labs: 07/31/17 08:20 07/31/17 08:20 - Constitutional Appears: Non-toxic, Chronically Ill - Head Exam Head Exam: NORMOCEPHALIC - Eye Exam Eye Exam: PERRL - ENT Exam ENT Exam: Mucous Membranes Dry - Neck Exam Neck Exam: absent: Lymphadenopathy - Respiratory Exam Respiratory Exam: Decreased Breath Sounds - Cardiovascular Exam Cardiovascular Exam: REGULAR RHYTHM - GI/Abdominal Exam GI & Abdominal Exam: Distended, Soft - Rectal Exam Rectal Exam: Deferred Assessment and Plan (1) Cellulitis of right foot Status: Acute
--- NOTE | 2017-08-04 23:32 | PN ---
DATE: 08/04/2017 SUBJECTIVE: The patient is seen and examined. Interim events noted. The patient remains in transitional care unit. Podiatry followup and intervention noted and appreciated. The patient feels okay. Denies any specific complaints of chest pain or shortness of breath. Foot pain is adequately controlled. The patient is wearing [place] footwear and is able to do his ADL. PHYSICAL EXAMINATION: GENERAL: The patient is in no acute distress. VITAL SIGNS: Stable. HEART: S1 and S2, normal, regular. LUNGS: Good bilateral air exchange. ABDOMEN: Soft and nontender. EXTREMITIES: No edema. No calf swelling, no tenderness. No acute ischemia. [employer]: Essentially unchanged. DIAGNOSTIC DATA: Available diagnostic data reviewed. ASSESSMENT AND PLAN: Overall, the patient's general medical condition is stable. Plan as ordered. The patient is finishing his antibiotic tomorrow. Possible discharge tomorrow. Case and plan discussed with patient. Joel Lake MD
[2017-08-05] MEDS: Insulin Regular 100 units/ml SC SCH ×2 (06:32→11:33)
[2017-08-05 07:36] LABS: HEMATOCRIT 30.4 % (35.0-51.0); MEAN CORPUSCULAR HEMOGLOBIN 25.4 pg (27.0-31.0); MEAN CORPUSCULAR HGB CONC 32.1 g/dL (33.0-37.0); RED CELL DISTRIBUTION WIDTH 15.4 % (11.5-14.5)
[2017-08-05 07:53] VITALS: TEMP 97.7; O2SAT 96
[2017-08-05 08:01] LABS: BILIRUBIN,TOTAL 0.4 mg/dl (0.2-1.3); CALCIUM 9.3 mg/dL (8.4-10.2); TOTAL PROTEIN 7.9 G/DL (6.3-8.2)
[2017-08-05] MEDS: Pantoprazole 40 mg EC Tab PO SCH (08:04)
[2017-08-05] MEDS: Multivitamin With Minerals Tab PO SCH (08:04)
[2017-08-05] MEDS: Magnesium Oxide 400 mg Tab UD PO SCH (08:04)
[2017-08-05] MEDS: Cholecalciferol 400 Intl Units Tab PO SCH (08:04)
[2017-08-05] MEDS: GlipiZIDE 10 mg SR Tab PO SCH (08:06)
[2017-08-05 08:08] LABS: POTASSIUM 5.5 MMOL/L (3.6-5.0)
--- NOTE | 2017-08-05 09:35 | PN ---
DATE: 08/05/2017 SUBJECTIVE: The patient is seen and examined. Interim events noted. Consults noted and appreciated. Infectious disease followup and intervention noted and appreciated. Patient remains in transitional care unit. Completing IV antibiotics. Patient feels okay. No specific complaints. No chest pain. No shortness of breath. Foot pain is adequately controlled. Patient is able to perform his ADLs without assistance. PHYSICAL EXAMINATION: GENERAL: The patient is in no acute distress. VITAL SIGNS: Stable. HEART: S1 and S2 normal, regular. LUNGS: Good bilateral air exchange. ABDOMEN: Soft and nontender. EXTREMITIES: Patient is status post amputation and treatment for osteomyelitis. No edema. No calf swelling, no tenderness. No acute ischemia. CHEF DE FROID: Essentially unchanged. DIAGNOSTIC DATA: Available diagnostic data reviewed. ASSESSMENT AND PLAN: Overall, the patient is medically stable for discharge. The patient will followup with primary care physician and clinical services consultant. Case and plan discussed with patient in detail. Joel Lake MD
--- NOTE | 2017-08-05 10:57 | CP.PCM.PN ---
Subjective - Date & Time of Evaluation Date of Evaluation: 08/05/17 Time of Evaluation: 09:45 - Subjective Subjective: Podiatry Progress Note - Dr. Brennan 46 year old male seen at bedside for R plantar foot ulceration secondary to DM and Charcot deformity with history of Chopart's amputation. Patient seen resting comfortably at bedside, AAOx3, and NAD. Denies acute events overnight. Patient denies any pain to his right foot. Patient states the swelling in his right leg has decreased, and states he has been elevating his leg whenever sitting down in a chair or in bed. Patient is aware he will be discharged today once he finishes his course of antibiotics. Patient aware that he is scheduled to see Dr. Brennan this Saturday for outpatient follow up. Patient denies N/V/F/ D/C/SOB/calf pain. No other pedal complaints at this time. Objective - Vital Signs/Intake and Output Vital Signs (last 24 hours): Temp Pulse Resp BP Pulse Ox 97.7 F 73 20 123/77 96 08/05/17 07:53 08/05/17 08:05 08/05/17 07:53 08/05/17 08:05 08/05/17 07:53 - Medications Medications: Current Medications Acetaminophen (Tylenol 325mg Tab) 650 mg PO Q6 PRN PRN Reason: Pain, moderate (4-7) Last Admin: 07/21/17 21:55 Dose: 650 mg Allopurinol (Zyloprim) 100 mg PO DAILY [facility] Last Admin: 08/05/17 08:05 Dose: 100 mg Amlodipine Besylate (Norvasc) 10 mg PO DAILY [facility] Last Admin: 08/05/17 08:05 Dose: 10 mg Bupropion HCl (Wellbutrin) 75 mg PO BID [facility] Last Admin: 08/05/17 08:08 Dose: 75 mg Calcitriol (Rocaltrol) 0.25 mcg PO MWF [facility] Last Admin: 08/05/17 08:04 Dose: 0.25 mcg Calcium Acetate (Phoslo) 1,334 mg PO WM@0900,1300,1700 [facility] Last Admin: 08/05/17 08:06 Dose: 1,334 mg Carvedilol (Coreg) 6.25 mg PO Q12 [facility] Last Admin: 08/05/17 08:04 Dose: 6.25 mg Clonidine HCl (Catapres) 0.3 mg PO Q8 [facility] Last Admin: 08/05/17 08:05 Dose: 0.3 mg Ferrous Sulfate (Feosol) 325 mg PO BID [facility] Last Admin: 08/05/17 08:04 Dose: 325 mg Fludrocortisone Acetate (Florinef) 0.05 mg PO QOTHERDAY [facility] Last Admin: 07/29/17 08:22 Dose: Not Given Folic Acid (Folic Acid) 1 mg PO DAILY [facility] Last Admin: 08/05/17 08:05 Dose: 1 mg Furosemide (Lasix) 20 mg PO DAILY@1700 [facility] Last Admin: 08/04/17 17:04 Dose: 20 mg Furosemide (Lasix) 40 mg PO DAILY [facility] Last Admin: 08/05/17 08:05 Dose: 40 mg Gabapentin (Neurontin) 100 mg PO TID [facility] Last Admin: 08/05/17 08:05 Dose: 100 mg Glipizide (Glucotrol Xl) 10 mg PO BID [facility] Last Admin: 08/05/17 08:06 Dose: 10 mg Heparin Sodium (Porcine) (Heparin) 5,000 units SC Q12 [facility] PRN Reason: Protocol Last Admin: 08/05/17 08:08 Dose: 5,000 units Hydralazine HCl (Apresoline) 100 mg PO Q8H [facility] Last Admin: 08/05/17 05:54 Dose: 100 mg Daptomycin 680 mg/ Sodium (Chloride) 100 mls @ 100 mls/hr IVPB QOTHERDAY [facility] Last Admin: 08/03/17 13:30 Dose: 100 mls/hr Insulin Human Regular (Humulin R) 0 units SC ACHS [facility] PRN Reason: Protocol Last Admin: 08/05/17 06:32 Dose: 2 units Magnesium Oxide (Mag-Ox) 400 mg PO BID [facility] Last Admin: 08/05/17 08:04 Dose: 400 mg Multivitamins/Minerals (Therapeutic-M Tab) 1 tab PO DAILY [facility] Last Admin: 08/05/17 08:04 Dose: 1 tab Mupirocin (Bactroban Ointment) 1 applic TOP QD7 [facility] Last Admin: 08/05/17 08:14 Dose: 1 applic Pantoprazole Sodium (Protonix Ec Tab) 40 mg PO DAILY [facility] Last Admin: 08/05/17 08:04 Dose: 40 mg Sitagliptin Phosphate (Januvia) 25 mg PO DAILY [facility] Last Admin: 08/05/17 08:05 Dose: 25 mg Sodium Bicarbonate (Sodium Bicarbonate Tab) 650 mg PO BID [facility] Last Admin: 07/30/17 08:29 Dose: 650 mg Sodium Polystyrene Sulfonate (Kayexalate Oral Susp) 15 gm PO QOTHERDAY@1200 [facility] Last Admin: 08/03/17 12:43 Dose: 15 gm Vitamin D (Vitamin D 400 Intl Units Tab) 400 intlu PO DAILY [facility] Last Admin: 08/05/17 08:04 Dose: 400 intlu - Labs Labs: 08/05/17 07:00 08/05/17 07:00 - Constitutional Appears: Well, Non-toxic, No Acute Distress - Extremities Exam Additional comments: LE focused exam: Vasc: DP pulses nonpalpable B/L. PT pulses palpable 1/4 B/L. Nonpitting edema noted to RLE, decreased from yesterday's visit. Skin temperature cool to warm from proximal to distal stump. Derm: Ulceration noted to lateral aspect of right foot measuring roughly 2.0 cm x 0.5 cm x 0.2 cm with granular base and fibrotic border with maceration noted to periwound area. No purulence, no fluctuance, periwound erythema, malodor, drainage, or other clinical infection noted at this time. 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 No POP noted to ulceration site - Neurological Exam Neurological Exam: Alert, Awake, Oriented x3 - Psychiatric Exam Psychiatric exam: Normal Affect, Normal Mood Assessment and Plan - Assessment and Plan (Free Text) Assessment: 46 year old male with PMHx of CKD, OM Right foot, DM II with Neuropathy, bilateral Charcot with R foot plantar ulceration secondary to DM and Charcot deformity Plan: Patient seen and evaluated at bedside. Discussed plan with attending Dr. Medina Charts, labs and vitals reviewed Bactroban applied to ulceration, betadine applied periwound, and RLE dressed with 4x4s and kerlix Patient is to do daily dressing changes of bactroban, betadine, DSD to RLE extremity. Patient demonstrates verbal understanding. Pt to be full weightbearing to tolerance with use of [employer] Walker to right lower extremity Plan to be discharged home today once patient has completed his course of antibiotics Upon DC patient will f/u with Dr. Brennan for continued wound care on 08/09/17
[2017-08-05] MEDS: Sod Polystyrene Sulf 15 gm/60 ml Oral Susp PO SCH (11:32)
[2017-08-05 13:27] VITALS: BP 167/89; PULSE 74
--- NOTE | 2017-08-05 16:59 | PN ---
NEPHROLOGY FOLLOWUP NOTE SUBJECTIVE: A 46-year-old male with past medical history of diabetes, hypertension, CKD, stage IV/V admitted with right foot chronic osteomyelitis. Nephrology following for CKD care. The patient ready to be discharged today after completing antibiotic course. Reports leg swelling has improved, no longer tense, denies any shortness of breath. PHYSICAL EXAMINATION: VITAL SIGNS: This morning blood pressure 123/77, heart rate 73, respirations 20, temperature 97.7, O2 sat 96% on room air. GENERAL: No distress, conversing coherently in full sentences. HEENT: Moist mucous membranes, nonicteric. RESPIRATORY: Lungs clear to auscultation bilaterally. No rales, no rhonchi, no wheezes. HEART: S1 and S2 normal. No murmurs, no gallops, no rubs. EXTREMITIES: Mild to moderate bilateral lower leg edema, unable to fully examine right leg due to being in orthopedic boot. SKIN: Warm. No cyanosis. LABORATORY DATA: From this morning, CBC WBC 10.0, hemoglobin 9.8, hematocrit 30.4, platelets 262. Chemistry panel: Sodium 137, potassium 5.5, chloride 101, bicarb 22, BUN 53, creatinine 4.8, glucose 155, calcium 9.3, albumin 4.0. ASSESSMENT AND PLAN: 1. Chronic kidney disease, stage IV/V, likely secondary to diabetic nephropathy with workup for other causes unremarkable. Renal function relatively stable. Mild hyperkalemia noted today, although previous; see the lab results. Potassium was controlled. Relatively stable volume status. No indication to initiate any dialysis intermittently. We will follow as outpatient and plan on AV fistula creation. 2. Hyperkalemia. As mentioned above, potassium increased today. Hyperkalemia is relatively mild. The patient is already on Kayexalate 15 grams every other day. Hyperkalemia should improve after heparin is discontinued. Restarting sodium bicarb should also help. The patient given hand-out for low potassium diet in [place]. Should continue Kayexalate as above at home. We will seek to change to [place] for less sodium content (we will need to get prior approval and our office will take care of this once discharged). 3. Hypertensive chronic kidney disease. Blood pressure has been relatively well-controlled on current regimen of Coreg 6.25 mg b.i.d., clonidine 0.3 mg q. 8 hours, amlodipine 10 mg daily, hydralazine 100 mg q. 8 hours and Lasix 40 mg p.o. in a.m. and 20 mg p.o. in p.m., should continue the same for now. 4. Chronic kidney disease, mineral bone disease. The patient started on calcitriol 0.25 mcg every Saturday, Saturday and Saturday for secondary hyperparathyroidism. Also, started on PhosLo 2 tabs with meals. Continue the same for now. Phos is well-controlled. Continue sodium bicarb 650 mg b.i.d. 5. Anemia. The patient given dose of Aranesp last week with significant improvement in hemoglobin. We will continue as an outpatient after repeating labs. Thank you Dr. Lake for allowing us to participate in the care of your patient. We will followup closely once discharged from [facility]. Geovanny Ward MD
== END 2017-08-05 14:45 | disposition home or self-care (01) | DRG 540 ==
LOC: H.TCU 21:34
PROVIDERS: ADMIT Internal Medicine; ATTEND Internal Medicine
PROC: 3E03329 Introduction of Other Anti-infective into Peripheral Vein, Percutaneous Approach (ICD-10-PCS; principal; 2017-07-19)
PROC: F07Z9FZ Gait Training/Functional Ambulation Treatment using Assistive, Adaptive, Supportive or Protective Equipment (ICD-10-PCS; 2017-07-19)
PROC: F08Z4FZ Home Management Treatment using Assistive, Adaptive, Supportive or Protective Equipment (ICD-10-PCS; 2017-07-20)
PROC: F07L6FZ Therapeutic Exercise Treatment of Musculoskeletal System - Lower Back / Lower Extremity using Assistive, Adaptive, Supportive or Protective Equipment (ICD-10-PCS; 2017-07-20)
DX: M86.171 Other acute osteomyelitis, right ankle and foot (principal); N18.5 Chronic kidney disease, stage 5; I12.0 Hypertensive chronic kidney disease with stage 5 chronic kidney disease or end stage renal disease; E11.21 Type 2 diabetes mellitus with diabetic nephropathy; L03.115 Cellulitis of right lower limb; Z68.41 Body mass index [BMI] 40.0-44.9, adult; E83.51 Hypocalcemia; E87.5 Hyperkalemia; M14.671 Charcot's joint, right ankle and foot; M14.672 Charcot's joint, left ankle and foot; E78.5 Hyperlipidemia, unspecified; E66.9 Obesity, unspecified; D63.1 Anemia in chronic kidney disease; E11.51 Type 2 diabetes mellitus with diabetic peripheral angiopathy without gangrene; E11.22 Type 2 diabetes mellitus with diabetic chronic kidney disease; E11.40 Type 2 diabetes mellitus with diabetic neuropathy, unspecified; E11.621 Type 2 diabetes mellitus with foot ulcer; E11.628 Type 2 diabetes mellitus with other skin complications; L97.509 Non-pressure chronic ulcer of other part of unspecified foot with unspecified severity; Z88.0 Allergy status to penicillin; Z89.431 Acquired absence of right foot

== ENCOUNTER 2017-08-09 14:11 | Emergency (ER) | payer MEDICARE, OTHER ==
[2017-08-09 14:11] VITALS: BMI 36.5
[2017-08-09 14:24] VITALS: BP 160/89; PULSE 69; RESP 16; TEMP 97.6; O2SAT 99
--- NOTE | 2017-08-09 14:51 | ED PDOC ---
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 The patient states he has not had similar symptoms in the past. Denies new food, new lotion and new medications. Patient also denies fevers, chills. PMD: Ysabel Vila Past Medical History Reviewed: Historical Data, Nursing Documentation, Vital Signs Vital Signs: Last Vital Signs Temp 97.6 F 08/09/17 14:19 Pulse 69 08/09/17 14:19 Resp 16 08/09/17 14:19 BP 160/89 H 08/09/17 14:19 Pulse Ox 99 08/09/17 15:00 - Medical History PMH: Anemia, Diabetes (type II), HTN, Hypercholesterolemia, Hyperlipidemia, Chronic Kidney Disease Denies: Arthritis, CHF, COPD, HIV, Hypothyroidism, Rheumatoid Arthritis - Family History Family History: States: Unknown Family Hx - Social History Current smoker - smoking cessation education provided: No Alcohol: None Drugs: Denies - Immunization History Hx Tetanus Toxoid Vaccination: No Hx Influenza Vaccination: No Hx Pneumococcal Vaccination: No - Home Medications Home Medications: Ambulatory Orders Medication Instructions Recorded Ferrous Sulfate 325 mg PO BID #0 tablet 10/15/16 Gabapentin [Neurontin] 100 mg PO TID #0 cap 10/15/16 Pantoprazole Sodium [Protonix] 40 mg PO DAILY #0 ect 10/15/16 buPROPion [Wellbutrin] 75 mg PO BID #0 tab 10/15/16 cloNIDine [Catapres] 0.3 mg PO Q8 #0 tab 10/15/16 Folic Acid 1 mg PO DAILY 12/01/16 Glipizide [Glipizide ER] 10 mg PO BID 12/01/16 Multivit,Iron,Min 5/Folic Acid 1 tab PO DAILY 12/01/16 [Strovite Forte Caplet] Ergocalciferol (Vitamin D2) 400 unit PO DAILY #30 tablet 05/07/17 [Vitamin D] Magnesium Oxide [Mag-Ox] 400 mg PO BID #14 tab 05/07/17 Allopurinol [Zyloprim] 100 mg PO DAILY tab 07/19/17 Calcium Acetate [Phoslo] 667 mg PO WM@0900,1300,1700 tab 07/19/17 Furosemide [Lasix] 20 mg PO DAILY@1700 tab 07/19/17 Furosemide [Lasix] 40 mg PO DAILY tab 07/19/17 Acetaminophen [Tylenol 325mg tab] 650 mg PO Q6 PRN 08/05/17 Calcitriol [Calcitriol] 0.25 cap PO MWF 08/05/17 Carvedilol [Coreg] 6.25 mg PO Q12 08/05/17 Mupirocin 2% Ointment [Bactroban 1 unit TOP DAILY 08/05/17 Ointment] SITagliptin [Januvia] 25 mg PO DAILY 08/05/17 Sodium Bicarbonate Tab [Sodium 650 mg PO BID 08/05/17 Bicarbonate Tab] Sodium Polystyrene Sulfonate 15 gm PO QOTHERDAY 08/05/17 [kayeXALATE Oral Susp] amLODIPine [Norvasc] 10 mg PO DAILY 08/05/17 hydrALAZINE [Apresoline] 100 mg PO Q8 08/05/17 Hydrocortisone 1% Cream [Cortizone 1 / TP BID #1 tube 08/09/17 1% Cream] - Allergies Allergies/Adverse Reactions: Allergies Allergy/AdvReac Type Severity Reaction Status Date / Time Penicillins Allergy RASH Verified 08/09/17 14:19 Review of Systems ROS Statement: Except As Marked, All Systems Reviewed And Found Negative Constitutional: Negative for: Fever, Chills Skin: Positive for: Rash (rash to upper back and abdomen) Physical Exam - Reviewed Nursing Documentation Reviewed: Yes Vital Signs Reviewed: Yes - Physical Exam Appears: Positive for: Non-toxic, No Acute Distress Head Exam: Positive for: ATRAUMATIC, NORMAL INSPECTION, NORMOCEPHALIC Skin: Positive for: Warm, Dry, Rash (diffuse, mild erythematous rash on trunk and back.). Negative for: Normal Color Eye Exam: Positive for: Normal appearance, EOMI, PERRL ENT: Positive for: Normal ENT Inspection Neck: Positive for: Normal Cardiovascular/Chest: Positive for: Regular Rate, Rhythm, Chest Non Tender. Negative for: Tachycardia Respiratory: Positive for: Normal Breath Sounds. Negative for: Accessory Muscle Use, Rales, Rhonchi, Wheezing, Respiratory Distress Extremity: Positive for: Normal ROM Neurologic/Psych: Positive for: Alert, Oriented, Gait - ECG O2 Sat by Pulse Oximetry: 99 (RA) Pulse Ox Interpretation: Normal Medical Decision Making Medical Decision Making: Initial Impression: 46 year old male presenting with rash on trunk and back Initial Plan: * Scribe Attestation Documented by Liseth Gleason acting as a scribe for Sulma Corona PA-C. Scribe Attestation All medical record entries made by the Scribe were at my direction and personally dictated by me. I have reviewed the chart and agree that the record accurately reflects my personal performance of the history, physical exam, medical decision making, and the department course for this patient. I have also personally directed, reviewed, and agree with the discharge instructions and disposition. Disposition - Clinical Impression Clinical Impression: Rash - Disposition Disposition Time: 15:03 Condition: STABLE Prescriptions: Hydrocortisone 1% Cream [Cortizone 1% Cream] 1 / TP BID #1 tube Instructions: Acute Rash (ED) Forms: [employer] (Turkish)
== END 2017-08-09 15:00 | disposition home or self-care (01) ==
LOC: H.ER 14:11
DX: R21 Rash and other nonspecific skin eruption (principal); E11.22 Type 2 diabetes mellitus with diabetic chronic kidney disease; E78.5 Hyperlipidemia, unspecified; I12.9 Hypertensive chronic kidney disease with stage 1 through stage 4 chronic kidney disease, or unspecified chronic kidney disease; Z88.0 Allergy status to penicillin

== ENCOUNTER 2017-12-13 20:43 | Inpatient (IN) | payer OTHER ==
[2017-12-13 20:44] VITALS: BMI 36.5
[2017-12-13] MEDS ORDERED: Sodium Chloride 0.9% 1,000 ML IV STA (21:41)
[2017-12-13] MEDS ORDERED: Sterile Water 10 ML IV ONE (21:43)
[2017-12-13 21:56] LABS: BASO # 0.1 K/uL (0.0-0.2); BASO % 0.3 % (0.0-2.0); EOS % 0.1 % (0.0-4.0); HEMOGLOBIN 14.4 g/dL (12.0-18.0); LYMPH # 1.1 K/uL (1.0-4.3); MEAN CELL VOLUME 72.9 fl (80.0-94.0); MEAN CORPUSCULAR HEMOGLOBIN 22.6 pg (27.0-31.0); MEAN PLATELET VOLUME 8.9 fl (7.2-11.7); MONO # 0.3 K/uL (0.0-0.8); NEUT # 16.1 K/uL (1.8-7.0); NEUT % 91.6 % (50.0-75.0); NRBC % 0.1 % (0.0-0.0); PLATELET COUNT 235 K/uL (130-400); RBC 6.38 Mil/uL (4.40-5.90); RED CELL DISTRIBUTION WIDTH 16.6 % (11.5-14.5); WHITE BLOOD COUNT 17.6 K/uL (4.8-10.8)
--- NOTE | 2017-12-13 22:04 | ED PDOC ---
HPI:Nausea, Vomiting, Diarrhea Time Seen by Provider: 12/13/17 20:59 Chief Complaint (Nursing): GI Problem Chief Complaint (Provider): Vomiting History Per: Patient History/Exam Limitations: no limitations Onset/Duration Of Symptoms: Days (x 1) Current Symptoms Are (Timing): Still Present Have you had recent travel within the past 21 days to any of the following countries: [place], [place], [place] or [place]?: No Additional Complaint(s): Santiago is a 46 y/o male with a history of end stage renal disease, hypertension , CVA, and diabetes, who presents to the ED complaining of 1 day of intractable nonbilious, nonbloody vomiting. Patient states he is unable to tolerate liquids or food. He admits to generalized weakness but denies focal weakness, diarrhea, abdominal pain, headache, or dizziness. He has not travelled recently and has no known sick contacts. PMD: Dr. 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 - Family History Family History: States: Unknown Family Hx - Social History Current smoker - smoking cessation education provided: No - Immunization History Hx Tetanus Toxoid Vaccination: No Hx Influenza Vaccination: No Hx Pneumococcal Vaccination: No - Home Medications Home Medications: Ambulatory Orders Medication Instructions Recorded Ferrous Sulfate 325 mg PO BID #0 tablet 10/15/16 Pantoprazole Sodium [Protonix] 40 mg PO DAILY #0 ect 10/15/16 buPROPion [Wellbutrin] 75 mg PO BID #0 tab 10/15/16 Folic Acid 1 mg PO DAILY 12/01/16 Glipizide [Glipizide ER] 10 mg PO BID 12/01/16 Allopurinol [Zyloprim] 100 mg PO DAILY tab 07/19/17 Calcium Acetate [Phoslo] 667 mg PO WM@0900,1300,1700 tab 07/19/17 Calcitriol 0.25 cap PO MWF 08/05/17 SITagliptin [Januvia] 25 mg PO DAILY 08/05/17 amLODIPine [Norvasc] 10 mg PO DAILY 08/05/17 hydrALAZINE [Apresoline] 100 mg PO Q8 tab 09/26/17 Atenolol [Tenormin] 50 mg PO DAILY 12/13/17 Furosemide [Lasix] 40 mg PO DAILY 12/13/17 Gabapentin [Neurontin] 100 mg PO TID 12/13/17 Magnesium Oxide [Mag-Ox] 800 mg PO BID 12/13/17 Nifedipine [Nifedipine ER] 30 mg PO DAILY 12/13/17 SITagliptin [Januvia] 25 mg PO BID 12/13/17 cloNIDine [Catapres] 0.3 mg PO TID 12/13/17 - Allergies Allergies/Adverse Reactions: Allergies Allergy/AdvReac Type Severity Reaction Status Date / Time Penicillins Allergy RASH Verified 12/13/17 20:49 Review of Systems ROS Statement: Except As Marked, All Systems Reviewed And Found Negative Constitutional: Positive for: Weakness Gastrointestinal: Positive for: Vomiting. Negative for: Abdominal Pain, Diarrhea Neurological: Negative for: Weakness, Headache, Dizziness Physical Exam - Reviewed Nursing Documentation Reviewed: Yes Vital Signs Reviewed: Yes - Physical Exam Appears: Positive for: Uncomfortable, In Acute Distress (retching in ER) Head Exam: Positive for: ATRAUMATIC, NORMOCEPHALIC Skin: Positive for: Warm, Dry Eye Exam: Positive for: EOMI, PERRL ENT: Positive for: Other (tacky mucus membranes) Neck: Positive for: Painless ROM, Supple Cardiovascular/Chest: Positive for: Chest Non Tender. Negative for: Tachycardia Respiratory: Positive for: Normal Breath Sounds. Negative for: Respiratory Distress Gastrointestinal/Abdominal: Positive for: Soft. Negative for: Tenderness, Mass , Distended, Guarding, Rebound Back: Positive for: Normal Inspection. Negative for: Decreased ROM Extremity: Positive for: Normal ROM, Other (RIGHT lower extremity TKA) Lymphatic: Negative for: Adenopathy Neurologic/Psych: Positive for: Alert. Negative for: Motor/Sensory Deficits - Laboratory Results Result Diagrams: 12/14/17 08:00 12/14/17 08:00 - ECG ECG Rhythm: Positive for: Nonspecific Changes O2 Sat by Pulse Oximetry: 99 (RA) Pulse Ox Interpretation: Normal Medical Decision Making Medical Decision Making: Time: 9:21 Initial Impression: Intractable vomiting Differentials include but not limited to: electrolyte abnormality, dehydration, acute CVA, gastroparesis Initial Plan: --CT Head --EKG --BNP --CMP --Lipase --Magnesium --Phosphorous --Troponin I --Urine Dip --CBC --PTT --Prothrombin Time --Protonix --Zofran --Blood Culture 2352 CT HEAD FINDINGS Again seen is evidence of left suboccipital craniotomy. There has been development of encephalomalacia in the left cerebellum since the prior study in keeping with the patient's prior surgery in this region. There is a small area of encephalomalacia in the posterior right temporal lobe that has progressed since the prior study. There is no evidence of acute edema. No intracranial hemorrhage. There is partial opacification of the right mastoid air cells new since prior. Partial opacification of the right ethmoid sinus new since prior. IMPRESSION: Left suboccipital craniotomy. Encephalomalacia left cerebellum and posterior right temporal lobe. Partial opacification of right mastoid air cell concerning for mastoiditis. Clinical correlation recommended. Partial opacification of the right ethmoid sinus new since prior. Recommend clinical correlation with regards to signs/symptoms of sinusitis. 11p Pt still with retching and discomfort. Needs hospitalization for gastroparesis, intractable vomiting in setting of comorbidities. Scribe Attestation: Documented by Donavan Granado and Diana Romero, acting as a scribe for Genna Fiore MD. Provider Scribe Attestation: All medical record entries made by the Scribe were at my direction and personally dictated by me. I have reviewed the chart and agree that the record accurately reflects my personal performance of the history, physical exam, medical decision making, and the department course for this patient. I have also personally directed, reviewed, and agree with the discharge instructions and disposition. Disposition - Clinical Impression Clinical Impression: Gastroparesis, ESRD (end stage renal disease) on dialysis Discussed With Dr.: Katherine Alegre Doctor Will See Patient In The: Hospital Counseled Patient/Family Regarding: Studies Performed, Diagnosis - Disposition Disposition Time: 00:00 Condition: GUARDED - Pt Status Changed To: Hospital Disposition Of: Inpatient - Admit Certification Admit to Inpatient:: After my assessment, the patient will require hospitalization for at least two midnights. This is because of the severity of symptoms shown, intensity of services needed, and/or the medical risk in this patient being treated as an outpatient. - POA Present On Arrival: None
[2017-12-13 22:19] LABS: TROPONIN I 0.042 ng/mL (0.00-0.120)
[2017-12-13 22:23] LABS: ALB/GLOB RATIO 0.8 (1.0-2.1); ALBUMIN 4.2 g/dL (3.5-5.0); CALCIUM 9.8 mg/dL (8.4-10.2)
[2017-12-13 22:24] LABS: PARTIAL THROMBOPLASTIN TIME 23.2 Seconds (25.6-37.1)
[2017-12-13 22:35] LABS: BANDS 3 % (0-2); HYPOCHROMIC SLIGHT; LYMPHOCYTE 7 % (20-50); MICROCYTOSIS SLIGHT; MONOCYTE 4 % (0-10); NEUTROPHIL 86 % (42-75); PLATELET ESTIMATE NORMAL (NORMAL); TOTAL CELLS COUNTED 100
--- NOTE | 2017-12-13 23:53 | CT ---
EXAM: CT Head Without Intravenous Contrast EXAM DATE/TIME: 12/13/2017 9:44 PM CLINICAL HISTORY: 46 years old, male; Signs and symptoms; Other: Vomiting; Prior surgery; Surgery date: 6+ months; Surgery type: Hemorrhagic cb craial decompression; Additional info: Vomiting. Sent phy. Doc. TECHNIQUE: Axial computed tomography images of the head/brain without intravenous contrast. All CT scans at this facility use one or more dose reduction techniques, viz.: automated exposure control; ma/kV adjustment per patient size (including targeted exams where dose is matched to indication; i.e. head); or iterative reconstruction technique. Coronal and sagittal reformatted images were created and reviewed. COMPARISON: CT - HEAD W/O CONTRAST 2017-09-09 06:01 FINDINGS: Again seen is evidence of left suboccipital craniotomy. There has been development of encephalomalacia in the left cerebellum since the prior study in keeping with the patient's prior surgery in this region. There is a small area of encephalomalacia in the posterior right temporal lobe that has progressed since the prior study. There is no evidence of acute edema. No intracranial hemorrhage. There is partial opacification of the right mastoid air cells new since prior. Partial opacification of the right ethmoid sinus new since prior. IMPRESSION: Left suboccipital craniotomy. Encephalomalacia left cerebellum and posterior right temporal lobe. Partial opacification of right mastoid air cell concerning for mastoiditis. Clinical correlation recommended. Partial opacification of the right ethmoid sinus new since prior. Recommend clinical correlation with regards to signs/symptoms of sinusitis.
[2017-12-14] MEDS ORDERED: Labetalol 5 mg/ml Inj 20ML IVP STA (05:02)
[2017-12-14] MEDS ORDERED: Labetalol 5 mg/ml Inj 20ML IVP PRN (05:18)
--- NOTE | 2017-12-14 05:33 | PCM.RRT ---
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 -Reglan 10 mg iv stat GOVERNMENT PROPERTY INSPECTOR VITALS 136/87 88 bpm GOVERNMENT PROPERTY INSPECTOR END:05:45 GOVERNMENT PROPERTY INSPECTOR LEADER: Dr. Colindres GOVERNMENT PROPERTY INSPECTOR RESIDENTS: Dr. Botello, PGY1; Dr. Neff, PGY2 <Isaias Colindres - Last Filed: 12/15/17 19:19> GOVERNMENT PROPERTY INSPECTOR Nurse Assessment - Vital Signs Vital Signs: Rapid Response Vital Sign Blood Pressure 172/112 Pulse Rate 123 Respiratory Rate 21 Oxygen Saturation 98 - Vital Signs at end of GOVERNMENT PROPERTY INSPECTOR Vital Signs at end of GOVERNMENT PROPERTY INSPECTOR: Rapid Response End Vital Sign Blood Pressure 158/115 Pulse Rate 93 Respiratory Rate 20 O2 Sat by Pulse Oximetry 98 Attending/Attestation - Attestation I have personally seen and examined this patient.: No I have fully participated in the care of the patient.: No I have reviewed all pertinent clinical information, including history, physical exam and plan: No Notes (Text): 12/15/17 19:11 I saw and examined this patient shoulder to shoulder with Dr Botello. The assessment and plan represent my direct input. GOVERNMENT PROPERTY INSPECTOR called because the BP was 172 /116mmHg. I&P #. Hypertensive Urgency, the patient has been retching and as such could not tolerate oral medication. Reglan 10mg IVP was administered for his retching. - Labetalol 20mg given IVP without significant changes in BP - A Second 20mg of Labetalol was administered IVP and the BP fell to 136/87mmHg Isaias Colindres MD 12/15/17 19:19
[2017-12-14] MEDS ORDERED: Nitroglycerin 2% Ointment Foilpak UD TOP ONE (05:45)
[2017-12-14] MEDS: Insulin Regular 100 units/ml SC SCH ×4 (08:12→22:52)
[2017-12-14] MEDS: NIFEdipine 30 mg ER Tab PO SCH ×2 (08:15→08:24)
[2017-12-14] MEDS: Magnesium Oxide 400 mg Tab UD PO SCH ×3 (08:17→16:32)
--- NOTE | 2017-12-14 09:37 | RAD ---
HISTORY: vomiting COMPARISON: Chest radiograph dated 08/31/2017. FINDINGS: LUNGS: No active pulmonary disease. PLEURA: No significant pleural effusion identified, no pneumothorax apparent. CARDIOVASCULAR: Cardiomediastinal silhouette unchanged. OSSEOUS STRUCTURES: No significant abnormalities. VISUALIZED UPPER ABDOMEN: Normal. OTHER FINDINGS: None. IMPRESSION: No active disease.
[2017-12-14 11:34] LABS: HEMOGLOBIN 13.4 g/dL (12.0-18.0); MEAN CELL VOLUME 72.8 fl (80.0-94.0); MEAN CORPUSCULAR HGB CONC 31.6 g/dL (33.0-37.0); RBC 5.82 Mil/uL (4.40-5.90); RED CELL DISTRIBUTION WIDTH 16.5 % (11.5-14.5); WHITE BLOOD COUNT 14.4 K/uL (4.8-10.8)
[2017-12-14 12:31] LABS: ALB/GLOB RATIO 0.8 (1.0-2.1); CALCIUM 9.8 mg/dL (8.4-10.2)
--- NOTE | 2017-12-14 13:05 | CARD ---
APPROVED REPORT EKG Measurement Heart [id number] <Conclusion> Normal sinus rhythm Possible Left atrial enlargement Left anterior fascicular block Abnormal ECG
--- NOTE | 2017-12-14 18:55 | CP.PCM.CON ---
History of Present Illness - History of Present Illness History of Present Illness: 46 yr old with dm, htn, cva, ckd stage 5 not yet on dialysis is admitted with nasuea and vomiting. decreased oral intake. he was admitted at [facility] over a month ago anad av access was created but he never initiated dialysis. currently denies any sob or chest pain Review of Systems - Review of Systems All systems: reviewed and no additional remarkable complaints except Past Patient History - Past Medical History & Family History Past Medical History?: Yes - Past Social History Smoking Status: Never Smoked - CARDIAC Hx Congestive Heart Failure: No Hx Hypercholesterolemia: Yes Hx Hypertension: Yes - PULMONARY Hx Chronic Obstructive Pulmonary Disease (COPD): No - NEUROLOGICAL Hx Neurological Disorder: No - HEENT Hx HEENT Problems: No - RENAL Hx Chronic Kidney Disease: Yes - ENDOCRINE/METABOLIC Hx Hypothyroidism: No - HEMATOLOGICAL/ONCOLOGICAL Hx Anemia: Yes Hx Human Immunodeficiency Virus (HIV): No - INTEGUMENTARY Hx Dermatological Problems: No - MUSCULOSKELETAL/RHEUMATOLOGICAL Hx Arthritis: No Hx Rheumatoid Arthritis: No - GASTROINTESTINAL Hx Gastrointestinal Disorders: Yes Hx Nausea: Yes Hx Vomiting: Yes - GENITOURINARY/GYNECOLOGICAL Hx Genitourinary Disorders: No - PSYCHIATRIC Hx Psychophysiologic Disorder: No Hx Substance Use: No - SURGICAL HISTORY Hx Surgeries: Yes Hx Amputation: Yes (tma right foot) Other/Comment: left suboccipital craniotomy - ANESTHESIA Hx Anesthesia: Yes Hx Anesthesia Reactions: No Hx Malignant Hyperthermia: No Has any member of the family had a problem w/ anesthesia?: No Meds Allergies/Adverse Reactions: Allergies Allergy/AdvReac Type Severity Reaction Status Date / Time Penicillins Allergy RASH Verified 12/13/17 20:49 - Medications Medications: Current Medications Allopurinol (Zyloprim) 100 mg PO DAILY [facility] Last Admin: 12/14/17 08:18 Dose: Not Given Amlodipine Besylate (Norvasc) 10 mg PO DAILY [facility] Last Admin: 12/14/17 08:25 Dose: Not Given Bupropion HCl (Wellbutrin) 75 mg PO BID [facility] Last Admin: 12/14/17 16:32 Dose: Not Given Calcitriol (Rocaltrol) 0.25 mcg PO MWF [facility] Calcium Acetate (Phoslo) 667 mg PO WM@0900,1300,1700 [facility] Last Admin: 12/14/17 16:32 Dose: Not Given Clonidine HCl (Catapres) 0.3 mg PO TID [facility] Last Admin: 12/14/17 16:31 Dose: 0.3 mg Furosemide (Lasix) 40 mg IVP DAILY@0400 [facility] Glipizide (Glucotrol Xl) 10 mg PO BID [facility] Hydralazine HCl (Apresoline) 5 mg IV Q6 PRN PRN Reason: Nausea/Vomiting Last Admin: 12/14/17 08:10 Dose: 5 mg Insulin Human Regular (Humulin R) 0 units SC ACHS COUNT [facility]CLUDES [facility] PRN Reason: Protocol Last Admin: 12/14/17 16:30 Dose: 4 units Magnesium Oxide (Mag-Ox) 800 mg PO BID [facility] Last Admin: 12/14/17 16:32 Dose: Not Given Metoclopramide HCl (Reglan) 10 mg IVP Q6 PRN PRN Reason: Nausea/Vomiting Last Admin: 12/14/17 05:25 Dose: 10 mg Nifedipine (Procardia Xl) 30 mg PO DAILY [facility] Last Admin: 12/14/17 08:24 Dose: Not Given Ondansetron HCl (Zofran Inj) 4 mg IVP Q6 PRN PRN Reason: Nausea/Vomiting Last Admin: 12/14/17 10:35 Dose: 4 mg Sitagliptin Phosphate (Januvia) 25 mg PO BID [facility] Physical Exam - Constitutional Appears: Non-toxic, No Acute Distress - Head Exam Head Exam: NORMAL INSPECTION - Eye Exam Eye Exam: Normal appearance - ENT Exam ENT Exam: Mucous Membranes Moist - Respiratory Exam Respiratory Exam: Clear to Auscultation Bilateral, NORMAL BREATHING PATTERN - Extremities Exam Extremities exam: Positive for: normal inspection - Psychiatric Exam Psychiatric exam: Normal Mood - Skin Skin Exam: Dry, Intact, Warm - Additional Findings Additional findings: left upper arm avfistula, minimal thrill and bruit. Results - Vital Signs Recent Vital Signs: Last Vital Signs Temp 97.2 F L 12/14/17 15:48 Pulse 87 12/14/17 16:31 Resp 20 12/14/17 15:48 BP 130/86 12/14/17 16:31 Pulse Ox 99 12/14/17 16:41 - Labs Result Diagrams: 12/14/17 08:00 12/14/17 08:00 Labs: Laboratory Results - last 24 hr 12/13/17 12/13/17 12/13/17 21:38 21:38 21:38 WBC 17.6 H RBC 6.38 H Hgb 14.4 D Hct 46.5 MCV 72.9 L D MCH 22.6 L MCHC 31.0 L RDW 16.6 H Plt Count 235 MPV 8.9 Neut % (Auto) 91.6 H Lymph % (Auto) 6.0 L [place] % (Auto) 2.0 Eos % (Auto) 0.1 Baso % (Auto) 0.3 Neut # 16.1 H Lymph # 1.1 [place] # 0.3 Eos # 0.0 Baso # 0.1 Neutrophils % (Manual) 86 H Band Neutrophils % 3 H Lymphocytes % (Manual) 7 L Monocytes % (Manual) 4 Platelet Estimate Normal Hypochromasia (manual) Slight Microcytosis (manual) Slight PT 11.0 INR 1.0 APTT 23.2 L Sodium 143 Potassium 4.9 Chloride 101 Carbon Dioxide 23 Anion Gap 24 H BUN 66 H Creatinine 3.8 H Est GFR ( Amer) 21 Est GFR (Non-Af Amer) 17 POC Glucose (mg/dL) Random Glucose 261 H Calcium 9.8 Phosphorus 4.7 H Magnesium 2.0 Total Bilirubin 0.6 AST 23 ALT 16 L D Alkaline Phosphatase 176 H D Troponin I 0.0420 NT-Pro-B Natriuret Pep 1500 H Total Protein 9.5 H Albumin 4.2 Globulin 5.3 H Albumin/Globulin Ratio 0.8 L Lipase 85 12/13/17 12/14/17 12/14/17 22:28 05:37 08:00 WBC 14.4 H RBC 5.82 Hgb 13.4 Hct 42.4 MCV 72.8 L MCH 23.0 L MCHC 31.6 L RDW 16.5 H Plt Count 261 MPV Neut % (Auto) Lymph % (Auto) [place] % (Auto) Eos % (Auto) Baso % (Auto) Neut # Lymph # [place] # Eos # Baso # Neutrophils % (Manual) Band Neutrophils % Lymphocytes % (Manual) Monocytes % (Manual) Platelet Estimate Hypochromasia (manual) Microcytosis (manual) PT INR APTT Sodium Potassium Chloride Carbon Dioxide Anion Gap BUN Creatinine Est GFR ( Amer) Est GFR (Non-Af Amer) POC Glucose (mg/dL) 248 H 159 H Random Glucose Calcium Phosphorus Magnesium Total Bilirubin AST ALT Alkaline Phosphatase Troponin I NT-Pro-B Natriuret Pep Total Protein Albumin Globulin Albumin/Globulin Ratio Lipase 12/14/17 12/14/17 12/14/17 08:00 11:04 16:17 WBC RBC Hgb Hct MCV MCH MCHC RDW Plt Count MPV Neut % (Auto) Lymph % (Auto) [place] % (Auto) Eos % (Auto) Baso % (Auto) Neut # Lymph # [place] # Eos # Baso # Neutrophils % (Manual) Band Neutrophils % Lymphocytes % (Manual) Monocytes % (Manual) Platelet Estimate Hypochromasia (manual) Microcytosis (manual) PT INR APTT Sodium 146 Potassium 4.5 Chloride 103 Carbon Dioxide 25 Anion Gap 23 H BUN 71 H Creatinine 4.9 H Est GFR ( Amer) 16 Est GFR (Non-Af Amer) 13 POC Glucose (mg/dL) 231 H 201 H Random Glucose 221 H Calcium 9.8 Phosphorus Magnesium Total Bilirubin 0.4 AST 13 L D ALT 12 L D Alkaline Phosphatase 158 H Troponin I NT-Pro-B Natriuret Pep Total Protein 8.9 H Albumin 4.0 Globulin 5.0 H Albumin/Globulin Ratio 0.8 L Lipase Assessment & Plan - Assessment and Plan (Free Text) Plan: CKD stage 5/htn/dm/gastroparesis/sec hyperpth cr above baseline, disease progression. N/V: can be sec to gastroparesis vs uremia? agree with gentle hydration if no improvement in symptoms with hydration, will consider GEOSCIENCES FACULTY MEMBER low phos diet anemia stable bp continue current meds av fistula: minimal thrill and bruit, evaluate on saturday for any stenosis. d/w INDUSTRIAL GAS PRODUCTION OPERATOR on service
--- NOTE | 2017-12-14 23:32 | CP.PCM.HP ---
History of Present Illness - History of Present Illness History of Present Illness: Pt with significant h/o uncontrolled DM, came in for intractable vomiting due to gastroparesis Review of Systems - Constitutional Constitutional: Anorexia. absent: Chills, Daytime Sleepiness, Excessive Sweating, Fatigue, Fever, Headache, Increased Appetite, Lethargy, Malaise, Night Sweats, Snoring, Sleep Apnea, Weight Gain, Weight Loss, Weakness, Other - EENT Eyes: As Per HPI. absent: Blind Spots, Blurred Vision, Change in Vision, Decreased Night Vision, Diplopia, Discharge, Dry Eye, Exophthalmos, Floaters, Irritation, Itchy Eyes, Loss of Peripheral Vision, Pain, Photophobia, Requires Corrective Lenses, Sees Flashes, Spots in Vision, Tunnel Vision, Other Visual Disturbances, Loss of Vision, Other Ears: As Per HPI. absent: Decreased Hearing, Ear Discharge, Ear Pain, Tinnitus , Abnormal Hearing, Disequilibrium, Dizziness, Other Nose/Mouth/Throat: absent: As Per HPI, Epistaxis, Nasal Congestion, Nasal Discharge, Nasal Obstruction, Nasal Trauma, Nose Pain, Post Nasal Drip, Sinus Pain, Sinus Pressure, Bleeding Gums, Change in Voice, Dental Pain, Dry Mouth, Dysphagia, Halitosis, Hoarsness, Lip Swelling, Mouth Lesions, Mouth Pain, Odynophagia, Sore Throat, Throat Swelling, Tongue Swelling, Facial Pain, Neck Pain, Neck Mass, Other - Cardiovascular Cardiovascular: As Per HPI. absent: Acrocyanosis, Chest Pain, Chest Pain at Rest, Chest Pain with Activity, Claudication, Diaphoresis, Dyspnea, Dyspnea on Exertion, Edema, Irregular Heart Rhythm, Pain Radiating to Arm/Neck/Jaw, Leg Edema, Leg Ulcers, Lightheadedness, Orthopnea, Palpitations, Paroxysmal Nocturnal Dyspnea, Pedal Edema, Radiating Pain, Rapid Heart Rate, Slow Heart Rate, Syncope, Other - Respiratory Respiratory: As Per HPI. absent: Cough, Dyspnea, Hemoptysis, Dyspnea on Exertion, Wheezing, Snoring, Stridor, Pain on Inspiration, Chest Congestion, Excessive Mucous Production, Change in Mucous Color, Pain with Coughing, Other - Gastrointestinal Gastrointestinal: As Per HPI, Dyspepsia, Nausea, Vomiting. absent: Abdominal Pain, Belching, Bloating, Change in Bowel Habits, Change in Stool Character, Coffee Ground Emesis, Constipation, Cramping, Diarrhea, Dysphagia, Early Satiety , Excessive Flatus, Fecal Incontinence, Heartburn, Hematemesis, Hematochezia, Loose Stools, Melena, Odynophagia, Temesmus - Genitourinary Genitourinary: As Per HPI. absent: Change in Urinary Stream, Difficulty Urinating, Dysuria, Flank Pain, Hematuria, Pyuria, Nocturia, Urinary Incontinence, Urinary Frequency, Urinary Hesitance, Urinary Urgency, Voiding Freq/Small Amts, Freq UTI, Hx Renal/Bladder Calculi, Hx /Renal Surgery, Bladder Distension, Other - Musculoskeletal Musculoskeletal: absent: Abnormal Gait, Arthralgias, Atrophy, Back Pain, Deformity, Joint Swelling, Limited Range of Motion, Loss of Height, Muscle Cramps, Muscle Weakness, Myalgias, Neck Pain, Numbness, Radiating Pain into Limb , Stiffness, Tingling, Other - Integumentary Integumentary: absent: Acne, Alopecia, Bleeding Lesions, Change in Hair, Change in Nails, Change in Pigmentation, Changing Lesions, Dry Skin, Erythema, Furuncle , Hirsutism, Lesions, New Lesions, Non-Healing Lesions, Photosensitivity, Pruritus, Rash, Skin Pain, Skin Ulcer, Sores, Striae, Swelling, Unusual Bruising , Wounds, Jaundice, Other - Neurological Neurological: As Per HPI. absent: Abnormal Gait, Abnormal Hearing, Abnormal Movements, Abnormal Speech, Behavioral Changes, Burning Sensations, Confusion, Convulsions, Disequilibrium, Dizziness, Numbness, Focal Weakness, Frequent Falls , Headaches, Lack of Coordination, Loss of Vision, Memory Loss, Paresthesias, Radicular Pain, Restless Legs, Sensory Deficit, Syncope, Tingling, Tremor, Vertigo, Weakness, Other Visual Disturbances, Other - Psychiatric Psychiatric: As Per HPI. absent: Abnormal Sleep Pattern, Anhedonia, Anxiety, Auditory Hallucinations, Behavioral Changes, Change in Appetite, Change in Libido, Confusion, Depression, Difficulty Concentrating, Hallucinations, Homicidal Ideation, Hopelessness, Irritability, Memory Loss, Mood Swings, Panic Attacks, Paranoia, Suicidal Ideation, Visual Hallucinations, Tactile Hallucinations, Other - Endocrine Endocrine: As Per HPI. absent: Change in Body Appearance, Change in Libido, Cold Intolorance, Deepening of Voice, Excessive Sweating, Fatigue, Flushing, Heat Intolorance, Increase in Ring/Shoe/Hat Size, Palpitations, Polydipsia, Polyphagia, Polyuria, Other - Hematologic/Lymphatic Hematologic: As Per HPI. absent: Easy Bleeding, Easy Bruising, Lymphadenopathy , Other Past Patient History - Past Medical History & Family History Past Medical History?: Yes - Past Social History Smoking Status: Never Smoked Chewing Tobacco Use: No Cigar Use: No Alcohol: None Drugs: Denies Domestic Violence: Negative - CARDIAC Hx Congestive Heart Failure: No Hx Hypercholesterolemia: Yes Hx Hypertension: Yes Hx Peripheral Vascular Disease: Yes - PULMONARY Hx Chronic Obstructive Pulmonary Disease (COPD): No - NEUROLOGICAL Hx Neurological Disorder: No - HEENT Hx HEENT Problems: No - RENAL Hx Chronic Kidney Disease: Yes (ESRD pending HD) Type of Dialysis Access: Newly palced AVF - ENDOCRINE/METABOLIC Hx Endocrine Disorders: Yes Hx Diabetes Mellitus Type 2: Yes - HEMATOLOGICAL/ONCOLOGICAL Hx Anemia: Yes - INTEGUMENTARY Hx Dermatological Problems: No - MUSCULOSKELETAL/RHEUMATOLOGICAL Hx Arthritis: No Hx Rheumatoid Arthritis: No - GASTROINTESTINAL Hx Gastrointestinal Disorders: Yes Hx Nausea: Yes Hx Vomiting: Yes - GENITOURINARY/GYNECOLOGICAL Hx Genitourinary Disorders: No - PSYCHIATRIC Hx Psychophysiologic Disorder: No Hx Substance Use: No - SURGICAL HISTORY Hx Surgeries: Yes Hx Amputation: Yes (tma right foot) Hx Vascular Access Device: Yes (L arm avf) Other/Comment: left suboccipital craniotomy - ANESTHESIA Hx Anesthesia: Yes Hx Anesthesia Reactions: No Hx Malignant Hyperthermia: No Has any member of the family had a problem w/ anesthesia?: No Meds Allergies/Adverse Reactions: Allergies Allergy/AdvReac Type Severity Reaction Status Date / Time Penicillins Allergy RASH Verified 12/13/17 20:49 Physical Exam - Constitutional Appears: Non-toxic, No Acute Distress, Chronically Ill - Head Exam Head Exam: ATRAUMATIC - Eye Exam Eye Exam: EOMI, Normal appearance Pupil Exam: NORMAL ACCOMODATION - ENT Exam ENT Exam: Mucous Membranes Dry - Neck Exam Neck exam: Positive for: Full Rom, Normal Inspection - Respiratory Exam Respiratory Exam: Clear to Auscultation Bilateral - Cardiovascular Exam Cardiovascular Exam: REGULAR RHYTHM, +S1, +S2 - GI/Abdominal Exam GI & Abdominal Exam: Normal Bowel Sounds, Soft - Rectal Exam Rectal Exam: NORMAL INSPECTION - Exam External exam: NORMAL EXTERNAL EXAM - Extremities Exam Extremities exam: Positive for: full ROM, normal capillary refill, normal inspection. Negative for: calf tenderness, joint swelling, pedal edema, tenderness, pedal pulses present Additional comments: L TMA healed - Back Exam Back exam: FULL ROM, NORMAL INSPECTION. absent: CVA tenderness (L), CVA tenderness (R), muscle spasm, paraspinal tenderness, rash noted, tenderness, vertebral tenderness - Neurological Exam Neurological exam: Alert, Altered, CN II-XII Intact, Oriented x3, Reflexes Normal - Psychiatric Exam Psychiatric exam: Normal Affect - Skin Skin Exam: Dry, Intact, Normal Color Results - Vital Signs Recent Vital Signs: Last Vital Signs Temp 98.5 F 12/14/17 20:03 Pulse 80 12/14/17 20:03 Resp 20 12/14/17 20:03 BP 141/85 12/14/17 20:03 Pulse Ox 99 12/14/17 21:26 - Labs Result Diagrams: 12/15/17 06:14 12/15/17 06:14 Labs: Laboratory Results - last 24 hr 12/14/17 12/14/17 12/14/17 05:37 08:00 08:00 WBC 14.4 H RBC 5.82 Hgb 13.4 Hct 42.4 MCV 72.8 L MCH 23.0 L MCHC 31.6 L RDW 16.5 H Plt Count 261 Sodium 146 Potassium 4.5 Chloride 103 Carbon Dioxide 25 Anion Gap 23 H BUN 71 H Creatinine 4.9 H Est GFR ( Amer) 16 Est GFR (Non-Af Amer) 13 POC Glucose (mg/dL) 159 H Random Glucose 221 H Calcium 9.8 Total Bilirubin 0.4 AST 13 L D ALT 12 L D Alkaline Phosphatase 158 H Total Protein 8.9 H Albumin 4.0 Globulin 5.0 H Albumin/Globulin Ratio 0.8 L 12/14/17 12/14/17 12/14/17 11:04 16:17 21:02 WBC RBC Hgb Hct MCV MCH MCHC RDW Plt Count Sodium Potassium Chloride Carbon Dioxide Anion Gap BUN Creatinine Est GFR ( Amer) Est GFR (Non-Af Amer) POC Glucose (mg/dL) 231 H 201 H 167 H Random Glucose Calcium Total Bilirubin AST ALT Alkaline Phosphatase Total Protein Albumin Globulin Albumin/Globulin Ratio Assessment & Plan - Assessment and Plan (Free Text) Assessment: 46 y/o with h/o uncontrol T2DM, gastroporesis, HTN, COPD, ESRD, obesity, came in with vomiting and unable to tolerating po, admitted for gastroporesis -gastroporesis, continue with zofran, reglan, IV hydration, clear liquid diet -T2DM, continue insulin, monitor fs -HTN, uncontrolled, will started IV vasopressor if not able to tolerate po, monitor bp -ESRD, s/p AVF, pending HD -obestiy, oob, diet and nutrition consult -s/p R TMA, monitor for ulcer -DVT, GI PPX, monitor electrolyte and renal function -GI and nephrology to follow up
[2017-12-15] MEDS ORDERED: Labetalol 5 mg/ml Inj 20ML IVP ONE (05:55)
[2017-12-15 06:46] LABS: HEMOGLOBIN 13.7 g/dL (12.0-18.0); RBC 5.97 Mil/uL (4.40-5.90); RED CELL DISTRIBUTION WIDTH 16.6 % (11.5-14.5); WHITE BLOOD COUNT 13.3 K/uL (4.8-10.8)
[2017-12-15 07:06] LABS: ALB/GLOB RATIO 0.8 (1.0-2.1); ALBUMIN 3.6 g/dL (3.5-5.0); CALCIUM 9.2 mg/dL (8.4-10.2)
[2017-12-15] MEDS: Insulin Regular 100 units/ml SC SCH ×4 (08:00→22:00)
[2017-12-15] MEDS: Magnesium Oxide 400 mg Tab UD PO SCH ×2 (09:11→17:04)
[2017-12-15] MEDS: NIFEdipine 30 mg ER Tab PO SCH (09:12)
[2017-12-15] MEDS ORDERED: Sod Polystyrene Sulf 15 gm/60 ml Susp PO SCH (16:45)
[2017-12-15] MEDS ORDERED: Sod Polystyrene Sulf 15 gm/60 ml Susp PO ONE (17:40)
--- NOTE | 2017-12-15 21:29 | CP.PCM.PN ---
Subjective - Subjective Subjective: Feeling better today, no further vomiting episode Objective - Vital Signs/Intake and Output Vital Signs (last 24 hours): Temp Pulse Resp BP Pulse Ox 98.3 F 78 20 124/76 99 12/15/17 19:57 12/15/17 20:57 12/15/17 19:57 12/15/17 19:57 12/15/17 19:57 - Medications Medications: Current Medications Allopurinol (Zyloprim) 100 mg PO DAILY [facility] Last Admin: 12/15/17 09:10 Dose: 100 mg Amlodipine Besylate (Norvasc) 10 mg PO DAILY [facility] Last Admin: 12/15/17 09:11 Dose: 10 mg Bupropion HCl (Wellbutrin) 75 mg PO BID [facility] Last Admin: 12/15/17 17:04 Dose: 75 mg Calcitriol (Rocaltrol) 0.25 mcg PO MWF [facility] Calcium Acetate (Phoslo) 667 mg PO WM@0900,1300,1700 [facility] Last Admin: 12/15/17 17:04 Dose: 667 mg Clonidine HCl (Catapres) 0.3 mg PO TID [facility] Last Admin: 12/15/17 17:04 Dose: 0.3 mg Furosemide (Lasix) 40 mg IVP DAILY@0400 [facility] Last Admin: 12/15/17 04:20 Dose: 40 mg Glipizide (Glucotrol) 10 mg PO BID [facility] Last Admin: 12/15/17 17:04 Dose: 10 mg Hydralazine HCl (Apresoline) 5 mg IV Q6 PRN PRN Reason: Nausea/Vomiting Last Admin: 12/15/17 09:20 Dose: 5 mg Insulin Human Regular (Humulin R) 0 units SC [facility] PRN Reason: Protocol Last Admin: 12/15/17 17:03 Dose: 2 units Magnesium Oxide (Mag-Ox) 800 mg PO BID [facility] Last Admin: 12/15/17 17:04 Dose: 800 mg Metoclopramide HCl (Reglan) 10 mg IVP Q6 PRN PRN Reason: Nausea/Vomiting Last Admin: 12/15/17 06:09 Dose: 10 mg Nifedipine (Procardia Xl) 30 mg PO DAILY [facility] Last Admin: 12/15/17 09:12 Dose: 30 mg Ondansetron HCl (Zofran Inj) 4 mg IVP Q6 PRN PRN Reason: Nausea/Vomiting Last Admin: 12/15/17 09:17 Dose: 4 mg Sitagliptin Phosphate (Januvia) 50 mg PO DAILY [facility] - Labs Labs: 12/15/17 06:14 12/15/17 06:14 PT 11.0 Seconds (9.8-13.1) 12/13/17 21:38 INR 1.0 (0.9-1.2) 12/13/17 21:38 APTT 23.2 Seconds (25.6-37.1) L 12/13/17 21:38 - Constitutional Appears: No Acute Distress - Head Exam Head Exam: ATRAUMATIC - Eye Exam Eye Exam: EOMI, Normal appearance, PERRL Pupil Exam: NORMAL ACCOMODATION - ENT Exam ENT Exam: Mucous Membranes Moist - Respiratory Exam Respiratory Exam: Clear to Ausculation Bilateral, NORMAL BREATHING PATTERN - Cardiovascular Exam Cardiovascular Exam: REGULAR RHYTHM, +S1, +S2 - GI/Abdominal Exam GI & Abdominal Exam: Soft, Normal Bowel Sounds - Extremities Exam Extremities Exam: Full ROM, Normal Capillary Refill - Neurological Exam Neurological Exam: Alert, Oriented x3 - Skin Skin Exam: Dry, Intact Assessment and Plan - Assessment and Plan (Free Text) Assessment: Resident with gastroporesis, vomiting, feeling better today, with K+5.2, will give kayxlate, repeat CMP, hydration, if stable tomorrow will d/c home, continue current medical management
[2017-12-16 05:23] LABS: BASO # 0.1 K/uL (0.0-0.2); BASO % 0.6 % (0.0-2.0); EOS # 0.2 K/uL (0.0-0.7); EOS % 1.9 % (0.0-4.0); HEMOGLOBIN 12.4 g/dL (12.0-18.0); LYMPH # 3.1 K/uL (1.0-4.3); LYMPH % 26.9 % (20.0-40.0); MEAN CELL VOLUME 73.1 fl (80.0-94.0); MEAN CORPUSCULAR HEMOGLOBIN 23.1 pg (27.0-31.0); MEAN CORPUSCULAR HGB CONC 31.6 g/dL (33.0-37.0); MEAN PLATELET VOLUME 8.6 fl (7.2-11.7); MONO # 0.7 K/uL (0.0-0.8); MONO % 6.5 % (0.0-10.0); NEUT # 7.4 K/uL (1.8-7.0); NEUT % 64.1 % (50.0-75.0); NRBC % 0.1 % (0.0-0.0); RBC 5.37 Mil/uL (4.40-5.90); RED CELL DISTRIBUTION WIDTH 16.1 % (11.5-14.5); WHITE BLOOD COUNT 11.6 K/uL (4.8-10.8)
[2017-12-16 05:37] LABS: ALB/GLOB RATIO 0.8 (1.0-2.1); ALBUMIN 3.5 g/dL (3.5-5.0); CALCIUM 9.2 mg/dL (8.4-10.2)
[2017-12-16] MEDS: Insulin Regular 100 units/ml SC SCH ×4 (08:29→22:39)
[2017-12-16] MEDS: Magnesium Oxide 400 mg Tab UD PO SCH ×2 (08:31→17:07)
[2017-12-16] MEDS: NIFEdipine 30 mg ER Tab PO SCH (08:32)
--- NOTE | 2017-12-16 10:25 | CP.PCM.PN ---
Subjective - Date & Time of Evaluation Date of Evaluation: 12/16/17 Time of Evaluation: 10:22 - Subjective Subjective: Patient is awake in bed Complaining of intermittent nausea He vomited once earlier this morning. No chest pain no shortness of breath Objective - Vital Signs/Intake and Output Vital Signs (last 24 hours): Temp Pulse Resp BP Pulse Ox 98.6 F 93 H 18 186/113 H 98 12/16/17 07:54 12/16/17 08:33 12/16/17 07:54 12/16/17 08:33 12/16/17 07:54 - Medications Medications: Current Medications Allopurinol (Zyloprim) 100 mg PO DAILY [facility] Last Admin: 12/16/17 08:27 Dose: 100 mg Amlodipine Besylate (Norvasc) 10 mg PO DAILY [facility] Last Admin: 12/16/17 08:32 Dose: 10 mg Bupropion HCl (Wellbutrin) 75 mg PO BID [facility] Last Admin: 12/16/17 08:28 Dose: 75 mg Calcitriol (Rocaltrol) 0.25 mcg PO MWF [facility] Last Admin: 12/16/17 08:28 Dose: 0.25 mcg Calcium Acetate (Phoslo) 667 mg PO WM@0900,1300,1700 [facility] Last Admin: 12/16/17 08:28 Dose: 667 mg Clonidine HCl (Catapres) 0.3 mg PO TID [facility] Last Admin: 12/16/17 08:28 Dose: 0.3 mg Furosemide (Lasix) 40 mg IVP DAILY@0400 [facility] Last Admin: 12/16/17 04:05 Dose: 40 mg Glipizide (Glucotrol) 10 mg PO BID [facility] Last Admin: 12/16/17 08:31 Dose: 10 mg Hydralazine HCl (Apresoline) 5 mg IV Q6 PRN PRN Reason: Nausea/Vomiting Last Admin: 12/16/17 08:33 Dose: 5 mg Insulin Human Regular (Humulin R) 0 units SC [facility] PRN Reason: Protocol Last Admin: 12/16/17 08:29 Dose: 2 units Magnesium Oxide (Mag-Ox) 800 mg PO BID [facility] Last Admin: 12/16/17 08:31 Dose: 800 mg Metoclopramide HCl (Reglan) 10 mg IVP Q6 PRN PRN Reason: Nausea/Vomiting Last Admin: 12/15/17 06:09 Dose: 10 mg Nifedipine (Procardia Xl) 30 mg PO DAILY [facility] Last Admin: 12/16/17 08:32 Dose: 30 mg Ondansetron HCl (Zofran Inj) 4 mg IVP Q6 PRN PRN Reason: Nausea/Vomiting Last Admin: 12/15/17 09:17 Dose: 4 mg Sitagliptin Phosphate (Januvia) 50 mg PO DAILY [facility] Last Admin: 12/16/17 08:28 Dose: 50 mg - Labs Labs: 12/16/17 04:20 12/16/17 04:20 PT 11.0 Seconds (9.8-13.1) 12/13/17 21:38 INR 1.0 (0.9-1.2) 12/13/17 21:38 APTT 23.2 Seconds (25.6-37.1) L 12/13/17 21:38 - Constitutional Appears: No Acute Distress - ENT Exam ENT Exam: Mucous Membranes Moist - Respiratory Exam Respiratory Exam: NORMAL BREATHING PATTERN. absent: Chest Wall Tenderness - Cardiovascular Exam Cardiovascular Exam: absent: Gallop, JVD, Rubs - GI/Abdominal Exam GI & Abdominal Exam: Soft, Normal Bowel Sounds. absent: Guarding - Extremities Exam Extremities Exam: absent: Calf Tenderness - Back Exam Back Exam: absent: CVA tenderness (L), CVA tenderness (R) - Neurological Exam Neurological Exam: Alert - Psychiatric Exam Psychiatric exam: Normal Affect - Skin Skin Exam: Intact. absent: Cyanosis Assessment and Plan (1) Chronic kidney disease, stage V Assessment & Plan: Patient has chronic kidney disease in the borderline between stage V or the late stage IV GFR ranging between 14-15. Patient appeared to be somewhat symptomatic and Demerol for nausea intermittently. If his generalized symptoms not improving will proceed with hemodialysis. Patient has left arm fistula with poor bruit I suggest vascular consult for reevaluation. Patient has multiple other medical problem Diabetes mellitus as being normal. With the primary team Gastroparesis Hypertension History of CVA History of amputation of right transmetatarsal. Patient was in this hospital previously couple of time he has been seen . orderserum phosphorus PTH urinalysis and protein to creatinine ratio. Status: Acute
--- NOTE | 2017-12-16 13:43 | CP.PCM.CON ---
History of Present Illness - History of Present Illness History of Present Illness: Vascular Surgery: Dr Kulkarni Re: AVF assessment Pt is a 46M who presented to [facility] for continued vomiting due to gastroparesis 2/ 2 uncontrolled DM. Pt is in CKD Stage IV borderline stage V. Pt reports he had fistula placed last month at [facility], just before [place]. He denies any pain or numbness to his hand. Not yet receiving dialysis at this time. No current complaints. Review of Systems - Review of Systems All systems: reviewed and no additional remarkable complaints except - Constitutional Constitutional: absent: Chills, Fever - Cardiovascular Cardiovascular: absent: Chest Pain - Respiratory Respiratory: absent: Cough, Dyspnea, Stridor - Gastrointestinal Gastrointestinal: Vomiting. absent: Abdominal Pain, Nausea Past Patient History - Past Medical History & Family History Past Medical History?: Yes - Past Social History Smoking Status: Never Smoked Chewing Tobacco Use: No Cigar Use: No Alcohol: None Drugs: Denies Domestic Violence: Negative - CARDIAC Hx Congestive Heart Failure: No Hx Hypercholesterolemia: Yes Hx Hypertension: Yes Hx Peripheral Vascular Disease: Yes - PULMONARY Hx Chronic Obstructive Pulmonary Disease (COPD): No - NEUROLOGICAL Hx Neurological Disorder: No - HEENT Hx HEENT Problems: No - RENAL Hx Chronic Kidney Disease: Yes (ESRD pending HD) Type of Dialysis Access: Newly palced AVF - ENDOCRINE/METABOLIC Hx Endocrine Disorders: Yes Hx Diabetes Mellitus Type 2: Yes - HEMATOLOGICAL/ONCOLOGICAL Hx Anemia: Yes - INTEGUMENTARY Hx Dermatological Problems: No - MUSCULOSKELETAL/RHEUMATOLOGICAL Hx Arthritis: No Hx Rheumatoid Arthritis: No - GASTROINTESTINAL Hx Gastrointestinal Disorders: Yes Hx Nausea: Yes Hx Vomiting: Yes - GENITOURINARY/GYNECOLOGICAL Hx Genitourinary Disorders: No - PSYCHIATRIC Hx Psychophysiologic Disorder: No Hx Substance Use: No - SURGICAL HISTORY Hx Surgeries: Yes Hx Amputation: Yes (tma right foot) Hx Vascular Access Device: Yes (L arm avf) Other/Comment: left suboccipital craniotomy - ANESTHESIA Hx Anesthesia: Yes Hx Anesthesia Reactions: No Hx Malignant Hyperthermia: No Has any member of the family had a problem w/ anesthesia?: No Meds Allergies/Adverse Reactions: Allergies Allergy/AdvReac Type Severity Reaction Status Date / Time Penicillins Allergy RASH Verified 12/13/17 20:49 - Medications Medications: Current Medications Allopurinol (Zyloprim) 100 mg PO DAILY [facility] Last Admin: 12/16/17 08:27 Dose: 100 mg Amlodipine Besylate (Norvasc) 10 mg PO DAILY [facility] Last Admin: 12/16/17 08:32 Dose: 10 mg Bupropion HCl (Wellbutrin) 75 mg PO BID [facility] Last Admin: 12/16/17 08:28 Dose: 75 mg Calcitriol (Rocaltrol) 0.25 mcg PO MWF [facility] Last Admin: 12/16/17 08:28 Dose: 0.25 mcg Calcium Acetate (Phoslo) 667 mg PO WM@0900,1300,1700 [facility] Last Admin: 12/16/17 13:24 Dose: 667 mg Clonidine HCl (Catapres) 0.3 mg PO TID [facility] Last Admin: 12/16/17 13:23 Dose: 0.3 mg Furosemide (Lasix) 40 mg IVP DAILY@0400 [facility] Last Admin: 12/16/17 04:05 Dose: 40 mg Glipizide (Glucotrol) 10 mg PO BID [facility] Last Admin: 12/16/17 08:31 Dose: 10 mg Hydralazine HCl (Apresoline) 5 mg IV Q6 PRN PRN Reason: Nausea/Vomiting Last Admin: 12/16/17 08:33 Dose: 5 mg Insulin Human Regular (Humulin R) 0 units SC ACHS [facility] PRN Reason: Protocol Last Admin: 12/16/17 13:24 Dose: Not Given Magnesium Oxide (Mag-Ox) 800 mg PO BID [facility] Last Admin: 12/16/17 08:31 Dose: 800 mg Metoclopramide HCl (Reglan) 10 mg IVP Q6 PRN PRN Reason: Nausea/Vomiting Last Admin: 12/15/17 06:09 Dose: 10 mg Nifedipine (Procardia Xl) 30 mg PO DAILY [facility] Last Admin: 12/16/17 08:32 Dose: 30 mg Ondansetron HCl (Zofran Inj) 4 mg IVP Q6 PRN PRN Reason: Nausea/Vomiting Last Admin: 12/16/17 13:23 Dose: 4 mg Sitagliptin Phosphate (Januvia) 50 mg PO DAILY [facility] Last Admin: 12/16/17 08:28 Dose: 50 mg Physical Exam - Constitutional Appears: Non-toxic, No Acute Distress - ENT Exam ENT Exam: Mucous Membranes Dry - Respiratory Exam Respiratory Exam: absent: Respiratory Distress - Extremities Exam Additional comments: left arm brachio-cephalic fistula with adequate bruit, not yet matured Results - Vital Signs Recent Vital Signs: Last Vital Signs Temp 98.9 F 12/16/17 12:00 Pulse 120 H 12/16/17 13:23 Resp 18 12/16/17 12:00 BP 147/94 H 12/16/17 13:23 Pulse Ox 95 12/16/17 12:00 - Labs Result Diagrams: 12/16/17 04:20 12/16/17 04:20 Labs: Laboratory Results - last 24 hr 12/15/17 12/15/17 12/16/17 15:41 21:31 04:20 WBC 11.6 H RBC 5.37 Hgb 12.4 Hct 39.3 MCV 73.1 L MCH 23.1 L MCHC 31.6 L RDW 16.1 H Plt Count 184 MPV 8.6 Neut % (Auto) 64.1 Lymph % (Auto) 26.9 [place] % (Auto) 6.5 Eos % (Auto) 1.9 Baso % (Auto) 0.6 Neut # 7.4 H Lymph # 3.1 [place] # 0.7 Eos # 0.2 Baso # 0.1 Sodium Potassium Chloride Carbon Dioxide Anion Gap BUN Creatinine Est GFR ( Amer) Est GFR (Non-Af Amer) POC Glucose (mg/dL) 185 H 127 H Random Glucose Calcium Phosphorus Total Bilirubin AST ALT Alkaline Phosphatase Total Protein Albumin Globulin Albumin/Globulin Ratio 12/16/17 12/16/17 12/16/17 04:20 05:36 10:45 WBC RBC Hgb Hct MCV MCH MCHC RDW Plt Count MPV Neut % (Auto) Lymph % (Auto) [place] % (Auto) Eos % (Auto) Baso % (Auto) Neut # Lymph # Sargent # Eos # Baso # Sodium 137 Potassium 4.9 Chloride 96 L Carbon Dioxide 30 Anion Gap 16 BUN 61 H Creatinine 4.1 H Est GFR ( Amer) 19 Est GFR (Non-Af Amer) 16 POC Glucose (mg/dL) 167 H Random Glucose 170 H Calcium 9.2 Phosphorus 5.0 H Total Bilirubin 0.3 AST 14 L ALT 22 Alkaline Phosphatase 123 Total Protein 8.0 Albumin 3.5 Globulin 4.5 H Albumin/Globulin Ratio 0.8 L Assessment & Plan - Assessment and Plan (Free Text) Assessment: 46M with CKD stage IV Plan: fistula appears adequate - bruit palpated but being only 3 weeks old needs further time to mature - may need to be brought closer to surface but that would be at the discretion of original surgeon after fistula has fully matured if pt requires dialysis prior to January may need permacath placement please re-consult if necessary and call surgical pager [phone] ([phone] on nights and weekends) will d/w Dr Shad Sifuentes, PGY3 - Date & Time Date: 12/16/17 Time: 13:50
[2017-12-16] MEDS ORDERED: Metoprolol 1 mg/ml Inj IVP ONE (18:22)
[2017-12-16] MEDS ORDERED: Sodium Chloride 0.45% 1,000 ML IV SCH (18:30)
[2017-12-16] MEDS ORDERED: DiphenhydrAMINE 50 mg/ml Inj IVP PRN (20:05)
--- NOTE | 2017-12-16 20:23 | CP.PCM.PN ---
Objective - Vital Signs/Intake and Output Vital Signs (last 24 hours): Temp Pulse Resp BP Pulse Ox 98.4 F 111 H 20 154/96 H 95 12/16/17 19:07 12/16/17 19:07 12/16/17 19:07 12/16/17 19:07 12/16/17 19:07 Intake and Output: 12/16/17 12/17/17 18:59 06:59 Intake Total 600 Balance 600 - Medications Medications: Current Medications Allopurinol (Zyloprim) 100 mg PO DAILY [facility] Last Admin: 12/16/17 08:27 Dose: 100 mg Amlodipine Besylate (Norvasc) 10 mg PO DAILY [facility] Last Admin: 12/16/17 08:32 Dose: 10 mg Calcitriol (Rocaltrol) 0.25 mcg PO MWF [facility] Last Admin: 12/16/17 08:28 Dose: 0.25 mcg Calcium Acetate (Phoslo) 667 mg PO WM@0900,1300,1700 [facility] Last Admin: 12/16/17 17:07 Dose: 667 mg Clonidine HCl (Catapres) 0.3 mg PO TID [facility] Last Admin: 12/16/17 16:56 Dose: 0.3 mg Diphenhydramine HCl (Benadryl) 12.5 mg IVP Q6 PRN PRN Reason: Nausea/Vomiting Furosemide (Lasix) 40 mg IVP DAILY@0400 [facility] Last Admin: 12/16/17 04:05 Dose: 40 mg Glipizide (Glucotrol) 10 mg PO BID [facility] Last Admin: 12/16/17 17:06 Dose: 10 mg Hydralazine HCl (Apresoline) 5 mg IV Q6 PRN PRN Reason: Nausea/Vomiting Last Admin: 12/16/17 16:56 Dose: 5 mg Sodium Chloride (Sodium Chloride 0.45%) 1,000 mls @ 50 mls/hr IV .Q20H [facility] Stop: 12/17/17 18:21 Insulin Human Regular (Humulin R) 0 units SC ACHS [facility] PRN Reason: Protocol Last Admin: 12/16/17 16:58 Dose: 2 units Magnesium Oxide (Mag-Ox) 800 mg PO BID [facility] Last Admin: 12/16/17 17:07 Dose: 800 mg Metoclopramide HCl (Reglan) 10 mg IVP Q6 PRN PRN Reason: Nausea/Vomiting Last Admin: 12/16/17 17:07 Dose: 10 mg Metoprolol Tartrate (Lopressor) 5 mg IVP Q6 [facility] Nifedipine (Procardia Xl) 30 mg PO DAILY [facility] Last Admin: 12/16/17 08:32 Dose: 30 mg Nortriptyline HCl (Pamelor) 10 mg PO TID [facility] Ondansetron HCl (Zofran Inj) 4 mg IVP Q6 PRN PRN Reason: Nausea/Vomiting Last Admin: 12/16/17 13:23 Dose: 4 mg Sitagliptin Phosphate (Januvia) 50 mg PO DAILY [facility] Last Admin: 12/16/17 08:28 Dose: 50 mg - Labs Labs: 12/16/17 04:20 12/16/17 04:20 PT 11.0 Seconds (9.8-13.1) 12/13/17 21:38 INR 1.0 (0.9-1.2) 12/13/17 21:38 APTT 23.2 Seconds (25.6-37.1) L 12/13/17 21:38
--- NOTE | 2017-12-16 21:08 | CON ---
DATE: REFERRING DOCTOR: Joel Lake MD REASON FOR CONSULTATION: Nausea, vomiting. HISTORY OF PRESENT ILLNESS: The patient is a pleasant 46-year-old man with history of diabetes , nausea and vomiting due to gastroparesis. Denies any fevers, chills, diarrhea, sick contacts, recent travel. Currently, lying in bed comfortably, in no apparent distress. PAST MEDICAL HISTORY: As above. PAST SURGICAL HISTORY: As above. MEDICATIONS: Have been reviewed. REVIEW OF SYSTEMS: All other systems have been reviewed and negative apart from the HPI. PHYSICAL EXAMINATION: VITAL SIGNS: Here in the hospital, grossly unremarkable. GENERAL: This is a pleasant middle-aged female, lying in bed comfortably, in no apparent distress. HEENT: Head: Normocephalic, atraumatic. Eyes: Pupils are equally reactive to light bilaterally. No conjunctival pallor or icterus. NECK: Supple. Normal range of motion. No lymphadenopathy appreciated. LUNGS: Coarse breath sounds bilaterally. HEART: S1, S2, regular rate and rhythm. No murmurs appreciated. ABDOMEN: Soft, nontender. Bowel sounds present. No rebound. No guarding. RECTAL: Deferred. EXTREMITIES: Pulses present bilaterally. SKIN: Warm, dry and intact. NEUROLOGIC: A and O x3. LABORATORY DATA: All labs and other radiology have been reviewed. WBC of 13.3, hemoglobin 13.7, hematocrit 44.2, platelet count of 205,000. Sugar is over 200. AST, ALT within normal limits. Alk phos 133. ASSESSMENT AND PLAN: This is a 46-year-old man with gastroparesis and poorly controlled diabetes. From GI standpoint, alternate Zofran and Reglan, proton pump inhibitor, also H2 anthony twice a day. Patient diet, will advance slowly as tolerated. Recommend sugar control. Thank you for the consult. Jung Jc MD/ PhD
[2017-12-16] MEDS: Metoprolol 1 mg/ml Inj IVP SCH (22:33)
[2017-12-17] MEDS: Metoprolol 1 mg/ml Inj IVP SCH ×3 (05:54→17:48)
[2017-12-17] MEDS: Insulin Regular 100 units/ml SC SCH ×2 (06:41→13:00)
[2017-12-17 08:24] LABS: CREATININE, RANDOM URINE 86.7 mg/dL
--- NOTE | 2017-12-17 08:42 | CP.PCM.PN ---
Subjective - Date & Time of Evaluation Date of Evaluation: 12/17/17 Time of Evaluation: 08:40 - Subjective Subjective: Patient in bed. Vomited couple time yesterday but not today Patient denying nausea Appetite reported to be okay. Objective - Vital Signs/Intake and Output Vital Signs (last 24 hours): Temp Pulse Resp BP Pulse Ox 98.4 F 87 18 131/87 95 12/17/17 08:00 12/17/17 08:00 12/17/17 08:00 12/17/17 08:00 12/17/17 08:00 - Medications Medications: Current Medications Allopurinol (Zyloprim) 100 mg PO DAILY [facility] Last Admin: 12/16/17 08:27 Dose: 100 mg Amlodipine Besylate (Norvasc) 10 mg PO DAILY [facility] Last Admin: 12/16/17 08:32 Dose: 10 mg Calcitriol (Rocaltrol) 0.25 mcg PO MWF [facility] Last Admin: 12/16/17 08:28 Dose: 0.25 mcg Calcium Acetate (Phoslo) 667 mg PO WM@0900,1300,1700 [facility] Last Admin: 12/16/17 17:07 Dose: 667 mg Clonidine HCl (Catapres) 0.3 mg PO TID [facility] Last Admin: 12/16/17 16:56 Dose: 0.3 mg Diphenhydramine HCl (Benadryl) 12.5 mg IVP Q6 PRN PRN Reason: Nausea/Vomiting Last Admin: 12/16/17 22:46 Dose: 12.5 mg Furosemide (Lasix) 40 mg IVP DAILY@0400 [facility] Last Admin: 12/17/17 06:02 Dose: 40 mg Glipizide (Glucotrol) 10 mg PO BID [facility] Last Admin: 12/16/17 17:06 Dose: 10 mg Hydralazine HCl (Apresoline) 5 mg IV Q6 PRN PRN Reason: Nausea/Vomiting Last Admin: 12/17/17 00:29 Dose: 5 mg Sodium Chloride (Sodium Chloride 0.45%) 1,000 mls @ 50 mls/hr IV .Q20H [facility] Stop: 12/17/17 18:21 Insulin Human Regular (Humulin R) 0 units SC ACHS [facility] PRN Reason: Protocol Last Admin: 12/17/17 06:41 Dose: 2 units Magnesium Oxide (Mag-Ox) 800 mg PO BID [facility] Last Admin: 12/16/17 17:07 Dose: 800 mg Metoclopramide HCl (Reglan) 10 mg IVP Q6 PRN PRN Reason: Nausea/Vomiting Last Admin: 12/17/17 01:38 Dose: 10 mg Metoprolol Tartrate (Lopressor) 5 mg IVP Q6 [facility] Last Admin: 12/17/17 05:54 Dose: 5 mg Nifedipine (Procardia Xl) 30 mg PO DAILY [facility] Last Admin: 12/16/17 08:32 Dose: 30 mg Nortriptyline HCl (Pamelor) 10 mg PO TID [facility] Ondansetron HCl (Zofran Inj) 4 mg IVP Q6 PRN PRN Reason: Nausea/Vomiting Last Admin: 12/16/17 13:23 Dose: 4 mg Sitagliptin Phosphate (Januvia) 50 mg PO DAILY [facility] Last Admin: 12/16/17 08:28 Dose: 50 mg - Labs Labs: 12/16/17 04:20 12/16/17 04:20 PT 11.0 Seconds (9.8-13.1) 12/13/17 21:38 INR 1.0 (0.9-1.2) 12/13/17 21:38 APTT 23.2 Seconds (25.6-37.1) L 12/13/17 21:38 - Constitutional Appears: No Acute Distress - Eye Exam Eye Exam: Conjunctival injection - ENT Exam ENT Exam: Mucous Membranes Moist - Neck Exam Neck Exam: absent: Lymphadenopathy - Respiratory Exam Respiratory Exam: NORMAL BREATHING PATTERN. absent: Rales - Cardiovascular Exam Cardiovascular Exam: absent: Gallop, JVD, Rubs - GI/Abdominal Exam GI & Abdominal Exam: Soft, Normal Bowel Sounds - Extremities Exam Extremities Exam: absent: Calf Tenderness - Back Exam Back Exam: absent: CVA tenderness (L), CVA tenderness (R) - Neurological Exam Neurological Exam: Alert - Psychiatric Exam Psychiatric exam: Normal Affect - Skin Skin Exam: absent: Cyanosis Assessment and Plan (1) Chronic kidney disease, stage V Assessment & Plan: Chronic kidney disease borderline this stage V GFR ranging between 15-16. Secondary to diabetes mellitus Serum phosphorus and PTH still pending. Urine for protein still pending. Other medical problem Hypertension controlled Diabetes mellitus as per primary team Patient was seen by vascular for the AV fistula. fistula is deep and need to be closer to the skin. I discussed with the patient for possible dialysis if it is not improving clinically and meantime we will continue to monitor. phosphorus binders Status: Acute
[2017-12-17] MEDS: NIFEdipine 30 mg ER Tab PO SCH (10:00)
[2017-12-17] MEDS: Magnesium Oxide 400 mg Tab UD PO SCH ×2 (10:03→17:48)
[2017-12-17 12:48] LABS: CALCIUM 8.7 mg/dL (8.4-10.2)
[2017-12-17 15:58] LABS: SQUAMOUS EPITHIAL 1 /hpf (0-5); URINE BILIRUBIN NEGATIVE (NEGATIVE); URINE BLOOD SMALL (NEGATIVE); URINE CLARITY CLEAR (Clear); URINE COLOR YELLOW (YELLOW); URINE GLUCOSE (UA) 150 mg/dL (Normal); URINE LEUKOCYTE ESTERASE NEG Leu/uL (Negative); URINE NITRATE NEGATIVE (NEGATIVE); URINE PROTEIN >=500 mg/dL (NEGATIVE); URINE UROBILINOGEN 0.2-1.0 mg/dL (0.2-1.0)
[2017-12-17 16:35] VITALS: BP 135/92; RESP 16; TEMP 98.2; O2SAT 98
[2017-12-17 17:47] VITALS: PULSE 94
--- NOTE | 2017-12-17 21:13 | CP.PCM.DIS ---
Provider - Provider Date of Admission: 12/14/17 00:00 Attending physician: Joel Lake MD Hospital Course - Lab Results Lab Results: Micro Results 12/13/17 11:51 Blood Blood Culture - Preliminary NO GROWTH AFTER 3 DAYS 12/13/17 21:34 Blood Blood Culture - Preliminary NO GROWTH AFTER 3 DAYS Most Recent Lab Values WBC 11.6 K/uL (4.8-10.8) H 12/16/17 04:20 RBC 5.37 Mil/uL (4.40-5.90) 12/16/17 04:20 Hgb 12.4 g/dL (12.0-18.0) 12/16/17 04:20 Hct 39.3 % (35.0-51.0) 12/16/17 04:20 MCV 73.1 fl (80.0-94.0) L 12/16/17 04:20 MCH 23.1 pg (27.0-31.0) L 12/16/17 04:20 MCHC 31.6 g/dL (33.0-37.0) L 12/16/17 04:20 RDW 16.1 % (11.5-14.5) H 12/16/17 04:20 Plt Count 184 K/uL (130-400) 12/16/17 04:20 MPV 8.6 fl (7.2-11.7) 12/16/17 04:20 Neut % (Auto) 64.1 % (50.0-75.0) 12/16/17 04:20 Lymph % (Auto) 26.9 % (20.0-40.0) 12/16/17 04:20 [place] % (Auto) 6.5 % (0.0-10.0) 12/16/17 04:20 Eos % (Auto) 1.9 % (0.0-4.0) 12/16/17 04:20 Baso % (Auto) 0.6 % (0.0-2.0) 12/16/17 04:20 Neut # 7.4 K/uL (1.8-7.0) H 12/16/17 04:20 Lymph # 3.1 K/uL (1.0-4.3) 12/16/17 04:20 [place] # 0.7 K/uL (0.0-0.8) 12/16/17 04:20 Eos # 0.2 K/uL (0.0-0.7) 12/16/17 04:20 Baso # 0.1 K/uL (0.0-0.2) 12/16/17 04:20 Neutrophils % (Manual) 86 % (42-75) H 12/13/17 21:38 Band Neutrophils % 3 % (0-2) H 12/13/17 21:38 Lymphocytes % (Manual) 7 % (20-50) L 12/13/17 21:38 Monocytes % (Manual) 4 % (0-10) 12/13/17 21:38 Platelet Estimate Normal (NORMAL) 12/13/17 21:38 Hypochromasia (manual) Slight 12/13/17 21:38 Microcytosis (manual) Slight 12/13/17 21:38 PT 11.0 Seconds (9.8-13.1) 12/13/17 21:38 INR 1.0 (0.9-1.2) 12/13/17 21:38 APTT 23.2 Seconds (25.6-37.1) L 12/13/17 21:38 Sodium 135 mmol/l (132-148) 12/17/17 12:26 Potassium 4.1 MMOL/L (3.6-5.0) 12/17/17 12:26 Chloride 92 mmol/L (98-107) L 12/17/17 12:26 Carbon Dioxide 31 mmol/L (22-30) H 12/17/17 12:26 Anion Gap 16 (10-20) 12/17/17 12:26 BUN 61 mg/dl (9-20) H 12/17/17 12:26 Creatinine 4.1 mg/dl (0.8-1.5) H 12/17/17 12:26 Est GFR ( Amer) 19 12/17/17 12:26 Est GFR (Non-Af Amer) 16 12/17/17 12:26 POC Glucose (mg/dL) 156 mg/dL (65-110) H 12/17/17 16:04 Random Glucose 211 mg/dL (75-110) H 12/17/17 12:26 Calcium 8.7 mg/dL (8.4-10.2) 12/17/17 12:26 Phosphorus 5.0 mg/dl (2.5-4.5) H 12/16/17 10:45 Magnesium 2.0 MG/DL (1.6-2.3) 12/13/17 21:38 Total Bilirubin 0.3 mg/dl (0.2-1.3) 12/16/17 04:20 AST 14 U/L (17-59) L 12/16/17 04:20 ALT 22 U/L (21-72) 12/16/17 04:20 Alkaline Phosphatase 123 U/L (38-126) 12/16/17 04:20 Troponin I 0.0420 ng/mL (0.00-0.120) 12/13/17 21:38 NT-Pro-B Natriuret Pep 1500 pg/ml (0-450) H 12/13/17 21:38 Total Protein 8.0 G/DL (6.3-8.2) 12/16/17 04:20 Albumin 3.5 g/dL (3.5-5.0) 12/16/17 04:20 Globulin 4.5 gm/dL (2.2-3.9) H 12/16/17 04:20 Albumin/Globulin Ratio 0.8 (1.0-2.1) L 12/16/17 04:20 Lipase 85 U/L (23-300) 12/13/17 21:38 PTH Intact Whole Molec 92 pg/mL (14-64) H 12/16/17 10:45 Urine Color Yellow (YELLOW) 12/16/17 15:40 Urine Clarity Clear (Clear) 12/16/17 15:40 Urine pH 7.0 (5.0-8.0) 12/16/17 15:40 Ur Specific [place] 1.011 (1.003-1.030) 12/16/17 15:40 Urine Protein >=500 mg/dL (NEGATIVE) 12/16/17 15:40 Urine Glucose (UA) 150 mg/dL (Normal) 12/16/17 15:40 Urine Ketones Negative mg/dL (NEGATIVE) 12/16/17 15:40 Urine Blood Small (NEGATIVE) 12/16/17 15:40 Urine Nitrate Negative (NEGATIVE) 12/16/17 15:40 Urine Bilirubin Negative (NEGATIVE) 12/16/17 15:40 Urine Urobilinogen 0.2-1.0 mg/dL (0.2-1.0) 12/16/17 15:40 Ur Leukocyte Esterase Neg Gomez/uL (Negative) 12/16/17 15:40 Urine RBC (Auto) 3 /hpf (0-3) 12/16/17 15:40 Urine Microscopic WBC 1 /hpf (0-5) 12/16/17 15:40 Ur Squamous Epith Cells 1 /hpf (0-5) 12/16/17 15:40 Ur Random Creatinine 86.7 mg/dL 12/16/17 07:37 U Random Total Protein 425.0 mg/dL (0.0-12.0) H 12/16/17 07:37 Discharge Exam - Head Exam Head Exam: ATRAUMATIC Discharge Plan - Discharge Medications Prescriptions: Metoclopramide HCl [Reglan] 10 mg PO BID PRN #60 tablet PRN Reason: Nausea/Vomiting Nortriptyline [Pamelor] 10 mg PO TID #90 cap Ondansetron HCl [Zofran] 4 mg PO Q6 PRN #30 ml PRN Reason: Nausea/Vomiting - Follow Up Plan Condition: GUARDED Disposition: HOME/ ROUTINE Instructions: Diabetic Gastroparesis (DC), Chronic Kidney Disease (DC)
--- NOTE | 2017-12-17 21:36 | CP.PCM.PN ---
Subjective - Date & Time of Evaluation Date of Evaluation: 12/17/17 Time of Evaluation: 09:05 - Subjective Subjective: no overnight events Objective - Vital Signs/Intake and Output Vital Signs (last 24 hours): Temp Pulse Resp BP Pulse Ox 98.2 F 94 H 16 135/92 H 98 12/17/17 16:34 12/17/17 17:48 12/17/17 16:34 12/17/17 17:48 12/17/17 16:34 Intake and Output: 12/17/17 12/18/17 18:59 06:59 Intake Total 1200 Output Total 500 Balance 700 - Labs Labs: 12/16/17 04:20 12/17/17 12:26 PT 11.0 Seconds (9.8-13.1) 12/13/17 21:38 INR 1.0 (0.9-1.2) 12/13/17 21:38 APTT 23.2 Seconds (25.6-37.1) L 12/13/17 21:38 - Neck Exam Neck Exam: Normal Inspection - Respiratory Exam Respiratory Exam: NORMAL BREATHING PATTERN - GI/Abdominal Exam GI & Abdominal Exam: Soft, Normal Bowel Sounds Assessment and Plan - Assessment and Plan (Free Text) Assessment: 46 yo male with gastroparesis doing well dc planning
== END 2017-12-17 18:00 | disposition home or self-care (01) | DRG 73 ==
LOC: H.ER 20:43 → H.ERHOLD 12-14 → H.TEL 12-14 01:19
PROVIDERS: ADMIT Internal Medicine; ATTEND Internal Medicine
DX: E11.43 Type 2 diabetes mellitus with diabetic autonomic (poly)neuropathy (principal); N18.6 End stage renal disease; E11.22 Type 2 diabetes mellitus with diabetic chronic kidney disease; I12.0 Hypertensive chronic kidney disease with stage 5 chronic kidney disease or end stage renal disease; N25.81 Secondary hyperparathyroidism of renal origin; E11.65 Type 2 diabetes mellitus with hyperglycemia; K31.84 Gastroparesis; Z86.73 Personal history of transient ischemic attack (TIA), and cerebral infarction without residual deficits; E78.5 Hyperlipidemia, unspecified; E78.00 Pure hypercholesterolemia, unspecified; Z88.0 Allergy status to penicillin; J44.9 Chronic obstructive pulmonary disease, unspecified; E66.9 Obesity, unspecified; Z68.38 Body mass index [BMI] 38.0-38.9, adult; D64.9 Anemia, unspecified; Z89.431 Acquired absence of right foot; Z99.2 Dependence on renal dialysis

== ENCOUNTER 2018-06-05 20:36 | Inpatient (IN) | payer OTHER ==
[2018-06-05 20:37] VITALS: BMI 36.5
[2018-06-05] MEDS ORDERED: Sodium Chloride 0.9% 1,000 ML IV STA (21:03)
--- NOTE | 2018-06-05 21:11 | ED PDOC ---
HPI: Abdomen Time Seen by Provider: 06/05/18 20:53 Chief Complaint (Nursing): GI Problem Chief Complaint (Provider): GI Problem History Per: Patient History/Exam Limitations: no limitations Onset/Duration Of Symptoms: Days (x2) Current Symptoms Are (Timing): Still Present Additional Complaint(s): 47 year old male with medical history of diabetes, stroke and right foot amputation, presents to the emergency department with a complaint of bloody and black vomiting associated with abdominal pain, weakness and lightheadedness ongoing for 2 days. Patient denies any diarrhea or taking blood thinners. No alcohol or drug use. No chest pain, dyspnea, fever, new food or drinks. PMD: Ysabel Gee MD Past Medical History Reviewed: Historical Data, Nursing Documentation, Vital Signs Vital Signs: Last Vital Signs Temp 98.9 F 06/05/18 20:43 Pulse 139 H 06/05/18 20:43 Resp 20 06/05/18 20:43 BP 137/100 H 06/05/18 20:43 Pulse Ox 99 06/05/18 23:14 - Medical History PMH: Anemia, CVA, Diabetes (type II), HTN, Hypercholesterolemia, Hyperlipidemia , End Stage Renal Disease, Chronic Kidney Disease (ESRD pending HD) Denies: Arthritis, CHF, COPD, HIV, Hypothyroidism, Rheumatoid Arthritis - Surgical History Surgical History: Denies: No Surg Hx - Family History Family History: States: Unknown Family Hx - Living Arrangements Living Arrangements: With Family - Immunization History Hx Tetanus Toxoid Vaccination: No Hx Influenza Vaccination: No Hx Pneumococcal Vaccination: No - Home Medications Home Medications: Ambulatory Orders Medication Instructions Recorded Ferrous Sulfate 325 mg PO BID #0 tablet 10/15/16 Pantoprazole Sodium [Protonix] 40 mg PO DAILY #0 ect 10/15/16 buPROPion [Wellbutrin] 75 mg PO BID #0 tab 10/15/16 Folic Acid 1 mg PO DAILY 12/01/16 Glipizide [Glipizide ER] 10 mg PO BID 12/01/16 Allopurinol [Zyloprim] 100 mg PO DAILY tab 07/19/17 Calcium Acetate [Phoslo] 667 mg PO WM@0900,1300,1700 tab 07/19/17 Calcitriol 0.25 cap PO MWF 08/05/17 amLODIPine [Norvasc] 10 mg PO DAILY 08/05/17 hydrALAZINE [Apresoline] 100 mg PO Q8 tab 09/26/17 Atenolol [Tenormin] 50 mg PO DAILY 12/13/17 Furosemide [Lasix] 40 mg PO DAILY 12/13/17 Gabapentin [Neurontin] 100 mg PO TID 12/13/17 Magnesium Oxide [Mag-Ox] 800 mg PO BID 12/13/17 Nifedipine [Nifedipine ER] 30 mg PO DAILY 12/13/17 SITagliptin [Januvia] 25 mg PO BID 12/13/17 cloNIDine [Catapres] 0.3 mg PO TID 12/13/17 Metoclopramide HCl [Reglan] 10 mg PO BID PRN #60 tablet 12/17/17 Nortriptyline [Pamelor] 10 mg PO TID #90 cap 12/17/17 Ondansetron HCl [Zofran] 4 mg PO Q6 PRN #30 ml 12/17/17 - Allergies Allergies/Adverse Reactions: Allergies Allergy/AdvReac Type Severity Reaction Status Date / Time Penicillins Allergy RASH Verified 12/13/17 20:49 Review of Systems ROS Statement: Except As Marked, All Systems Reviewed And Found Negative Constitutional: Positive for: Weakness Gastrointestinal: Positive for: Nausea, Vomiting, Abdominal Pain, Hematemesis. Negative for: Diarrhea Neurological: Positive for: Dizziness (lightheaded) Physical Exam - Reviewed Nursing Documentation Reviewed: Yes Vital Signs Reviewed: Yes - Physical Exam Appears: Positive for: Uncomfortable Head Exam: Positive for: ATRAUMATIC, NORMAL INSPECTION, NORMOCEPHALIC Skin: Positive for: Normal Color Eye Exam: Positive for: Normal appearance, EOMI, PERRL ENT: Positive for: Normal ENT Inspection Neck: Positive for: Normal Cardiovascular/Chest: Positive for: Chest Non Tender, Tachycardia (with regular rhythm). Negative for: Regular Rate, Rhythm Respiratory: Positive for: Normal Breath Sounds. Negative for: Respiratory Distress Gastrointestinal/Abdominal: Positive for: Soft, Tenderness (diffuse mildly). Negative for: Distended Back: Positive for: Normal Inspection. Negative for: L CVA Tenderness, R CVA Tenderness Extremity: Positive for: Normal ROM (upper/lower), Deformity (right foot amputation). Negative for: Tenderness, Pedal Edema (bilateral) Neurologic/Psych: Positive for: Alert, Oriented. Negative for: Motor/Sensory Deficits - Laboratory Results Result Diagrams: 06/05/18 21:15 06/05/18 21:15 Interpretation Of Abn Labs: 28 wbc, 0.133 trop, 3.1 k, elevated bun and cr - ECG ECG: Positive for: Interpreted By Me, Viewed By Me ECG Rhythm: Positive for: Sinus Tachycardia, Nonspecific Changes O2 Sat by Pulse Oximetry: 99 (RA) Pulse Ox Interpretation: Normal - Radiology X-Ray: Interpreted by Me, Viewed By Me X-Ray Interpretation: No Acute Disease - Progress ED Course And Treament: 2300: Spoke with Dr. Lake. Will admit. Spoke with Dr. Whitmore. Will admit ICU. Pt. with hx of gastroparesis per chart. Likely cause of symptoms. Hg stable. 2315: Spoke with Dr. Gustafson. Will consult. Agrees with current plan. 2330: Cards call back pending. Troponin borderline elevation possible from renal issues, but will monitor. No blood thinners or asa/plavix considering gi bleeding. Stable. AAOx3. Pain improved. No vomiting. Does not meet sepsis criteria considering no source and has gi bleed/renal failure acute on chronic. - Critical Care Total Time (In Min): 30 Documented Critical Care: Time excludes all time spent performint seperately billable procedures Medical Decision Making Medical Decision Making: Initial Impression: Hematemesis Initial Plan: * ABO/RH type * Type and screen * Ekg * Alcohol serum * CMP * Magnesium * Phosphorous * Troponin I * CBC * PTT * PT * CXR * NS 1,000ml IV per 1,000mls/hr * Protonix inj 100ml IVPB * Protonix 80mg IVP * Reglan 10mg IV * Occult blood, stool Scribe Attestation: Documented by Katherine Valerio, acting as a scribe for Maurice Raman MD. Provider Scribe Attestation: All medical record entries made by the Scribe were at my direction and personally dictated by me. I have reviewed the chart and agree that the record accurately reflects my personal performance of the history, physical exam, medical decision making, and the department course for this patient. I have also personally directed, reviewed, and agree with the discharge instructions and disposition. Disposition - Clinical Impression Clinical Impression: Hypokalemia, Abdominal pain, Gastroparesis, Acute on chronic renal failure, GI bleed, Elevated troponin - Patient ED Disposition Is Patient to be Admitted: Yes Counseled Patient/Family Regarding: Studies Performed, Diagnosis - Disposition Disposition Time: 00:17 Condition: SERIOUS - Pt Status Changed To: Hospital Disposition Of: Inpatient - Admit Certification Admit to Inpatient:: After my assessment, the patient will require hospitalization for at least two midnights. This is because of the severity of symptoms shown, intensity of services needed, and/or the medical risk in this patient being treated as an outpatient. - POA Present On Arrival: None
--- NOTE | 2018-06-05 21:13 | ED PDOC ---
HPI: Abdomen Time Seen by Provider: 06/05/18 20:53 Chief Complaint (Nursing): GI Problem Past Medical History Vital Signs: Last Vital Signs Temp 98.9 F 06/05/18 20:43 Pulse 139 H 06/05/18 20:43 Resp 20 06/05/18 20:43 BP 137/100 H 06/05/18 20:43 Pulse Ox 99 06/05/18 20:43 - Medical History PMH: Anemia, CVA, Diabetes (type II), HTN, Hypercholesterolemia, Hyperlipidemia , End Stage Renal Disease, Chronic Kidney Disease (ESRD pending HD) Denies: Arthritis, CHF, COPD, HIV, Hypothyroidism, Rheumatoid Arthritis - Family History Family History: States: Unknown Family Hx - Immunization History Hx Tetanus Toxoid Vaccination: No Hx Influenza Vaccination: No Hx Pneumococcal Vaccination: No - Home Medications Home Medications: Ambulatory Orders Medication Instructions Recorded Ferrous Sulfate 325 mg PO BID #0 tablet 10/15/16 Pantoprazole Sodium [Protonix] 40 mg PO DAILY #0 ect 10/15/16 buPROPion [Wellbutrin] 75 mg PO BID #0 tab 10/15/16 Folic Acid 1 mg PO DAILY 12/01/16 Glipizide [Glipizide ER] 10 mg PO BID 12/01/16 Allopurinol [Zyloprim] 100 mg PO DAILY tab 07/19/17 Calcium Acetate [Phoslo] 667 mg PO WM@0900,1300,1700 tab 07/19/17 Calcitriol 0.25 cap PO MWF 08/05/17 amLODIPine [Norvasc] 10 mg PO DAILY 08/05/17 hydrALAZINE [Apresoline] 100 mg PO Q8 tab 09/26/17 Atenolol [Tenormin] 50 mg PO DAILY 12/13/17 Furosemide [Lasix] 40 mg PO DAILY 12/13/17 Gabapentin [Neurontin] 100 mg PO TID 12/13/17 Magnesium Oxide [Mag-Ox] 800 mg PO BID 12/13/17 Nifedipine [Nifedipine ER] 30 mg PO DAILY 12/13/17 SITagliptin [Januvia] 25 mg PO BID 12/13/17 cloNIDine [Catapres] 0.3 mg PO TID 12/13/17 Metoclopramide HCl [Reglan] 10 mg PO BID PRN #60 tablet 12/17/17 Nortriptyline [Pamelor] 10 mg PO TID #90 cap 12/17/17 Ondansetron HCl [Zofran] 4 mg PO Q6 PRN #30 ml 12/17/17 - Allergies Allergies/Adverse Reactions: Allergies Allergy/AdvReac Type Severity Reaction Status Date / Time Penicillins Allergy RASH Verified 12/13/17 20:49 - ECG O2 Sat by Pulse Oximetry: 99 Disposition - Disposition
[2018-06-05 21:25] LABS: BASO # 0.1 K/uL (0.0-0.2); BASO % 0.3 % (0.0-2.0); HEMOGLOBIN 13.5 g/dL (12.0-18.0); LYMPH % 3.7 % (20.0-40.0); MEAN CELL VOLUME 77.4 fl (80.0-94.0); MEAN CORPUSCULAR HEMOGLOBIN 25.4 pg (27.0-31.0); MEAN CORPUSCULAR HGB CONC 32.8 g/dL (33.0-37.0); MEAN PLATELET VOLUME 9.8 fl (7.2-11.7); MONO # 0.8 K/uL (0.0-0.8); MONO % 2.9 % (0.0-10.0); NEUT % 93.1 % (50.0-75.0); PLATELET COUNT 320 K/uL (130-400); RBC 5.33 Mil/uL (4.40-5.90); RED CELL DISTRIBUTION WIDTH 13.3 % (11.5-14.5)
[2018-06-05 21:38] LABS: INR 1.1 (0.9-1.2); PARTIAL THROMBOPLASTIN TIME 33.3 Seconds (25.6-37.1); PROTHROMBIN TIME 12.5 Seconds (9.8-13.1)
[2018-06-05 21:55] LABS: ALBUMIN 5.2 g/dL (3.5-5.0); ALT/SGPT 12 U/L (21-72); AST/SGOT 22 U/L (17-59); BLOOD UREA NITROGEN 104 mg/dl (9-20); CALCIUM 10.2 mg/dL (8.4-10.2); GFR AFRICAN-AMERICAN 9; GFR NON-AFRICAN AMERICAN 8
[2018-06-05 22:00] LABS: VENOUS BLOOD GAS BASE EXCESS -5.2 mmol/L (0.0-2.0); VENOUS BLOOD GAS PCO2 37 mmHg (40-60); VENOUS BLOOD GAS PO2 42 mm/Hg (30-55); VENOUS BLOOD PH 7.34 (7.32-7.43)
[2018-06-05] MEDS ORDERED: Potassium Chloride 20 mEq ER Tab PO STA (22:23)
[2018-06-05 22:34] LABS: LYMPHOCYTE 7 % (20-50); MONOCYTE 2 % (0-10); NEUTROPHIL 91 % (42-75); PLATELET ESTIMATE NORMAL (NORMAL); TOTAL CELLS COUNTED 100
[2018-06-05 22:35] LABS: ANISOCYTOSIS SLIGHT; HYPOCHROMIC SLIGHT; LARGE PLATELETS PRESENT; OVALOCYTES MODERATE; TEARDROP CELLS SLIGHT
[2018-06-05 22:36] LABS: HYPERSEGMENTATION PRESENT
--- NOTE | 2018-06-05 23:22 | CP.PCM.CON ---
History of Present Illness - History of Present Illness History of Present Illness: CC/Reason for ICU: UGIB, Elevated trop, worsening renal failure HPI: This is a 47 y/o male with multiple medical problems including DM2, HTN, HLD, ESRD pending HD, prior CVA, and anemia of chronic disease who comes in c/o bloody/dark vomiting, abd pain, and weakness for about 2 days. Denies f/c/d or blood in stool. Do CP or SOB. Patient is not on any ASA or blood thinners, and has not been using NSAIDs. Denies any cough, congestion or dysuria. ROS: 14 systems reviewed, negative other than HPI MHx: DM2, HTN, HLD, ESRD pending HD, prior CVA, and anemia of chronic disease SHx: RLE partial foot amputation Allergies: PCN Family Hx: Patient not able to provide relevant info Social Hx: Lives with family, no tobacco or EtOH Surrogate Dec Mkr: family member as listed in chart; patient accompanied by brother Past Patient History - Past Medical History & Family History Past Medical History?: Yes - Past Social History Smoking Status: Never Smoked Chewing Tobacco Use: No - CARDIAC Hx Congestive Heart Failure: No Hx Hypercholesterolemia: Yes Hx Hypertension: Yes - PULMONARY Hx Chronic Obstructive Pulmonary Disease (COPD): No - NEUROLOGICAL Hx Neurological Disorder: No - HEENT Hx HEENT Problems: No - RENAL Hx Chronic Kidney Disease: Yes (ESRD pending HD) - ENDOCRINE/METABOLIC Hx Hypothyroidism: No - HEMATOLOGICAL/ONCOLOGICAL Hx Anemia: Yes Hx Human Immunodeficiency Virus (HIV): No - INTEGUMENTARY Hx Dermatological Problems: No - MUSCULOSKELETAL/RHEUMATOLOGICAL Hx Arthritis: No Hx Rheumatoid Arthritis: No - GASTROINTESTINAL Hx Gastrointestinal Disorders: Yes Hx Nausea: Yes Hx Vomiting: Yes - GENITOURINARY/GYNECOLOGICAL Hx Genitourinary Disorders: No - PSYCHIATRIC Hx Psychophysiologic Disorder: No Hx Substance Use: No - SURGICAL HISTORY Hx Surgeries: Yes Hx Amputation: Yes (tma right foot) Hx Vascular Access Device: Yes (L arm avf) Other/Comment: left suboccipital craniotomy - ANESTHESIA Hx Anesthesia: Yes Hx Anesthesia Reactions: No Hx Malignant Hyperthermia: No Meds Allergies/Adverse Reactions: Allergies Allergy/AdvReac Type Severity Reaction Status Date / Time Penicillins Allergy RASH Verified 12/13/17 20:49 - Medications Medications: Current Medications Amlodipine Besylate (Norvasc) 10 mg PO DAILY [facility] Atenolol (Tenormin) 50 mg PO DAILY [facility] Calcium Acetate (Phoslo) 667 mg PO WM@0900,1300,1700 [facility] Clonidine HCl (Catapres) 0.3 mg PO TID [facility] Gabapentin (Neurontin) 100 mg PO TID [facility] Home Med (Nifedipine [Nifedipine Er]) 30 mg PO DAILY [facility] Hydralazine HCl (Apresoline) 100 mg PO Q8 [facility] Pantoprazole Sodium 40 mg/ (Sodium Chloride) 100 mls @ 20 mls/hr IVPB Q5H BASHIR PRN Reason: 8 MG/HR Insulin Human Lispro (Humalog) 0 units SC Q6H BASHIR PRN Reason: Protocol Metoclopramide HCl (Reglan) 10 mg IVP Q6 PRN PRN Reason: Nausea/Vomiting Ondansetron HCl (Zofran Inj) 4 mg IVP Q6H PRN PRN Reason: Nausea/Vomiting Physical Exam - Constitutional Appears: No Acute Distress, Unkempt - Head Exam Head Exam: ATRAUMATIC, NORMOCEPHALIC - Eye Exam Eye Exam: EOMI, PERRL - ENT Exam ENT Exam: Mucous Membranes Dry - Neck Exam Neck exam: Positive for: Full Rom - Respiratory Exam Respiratory Exam: Clear to Auscultation Bilateral, NORMAL BREATHING PATTERN - Cardiovascular Exam Cardiovascular Exam: Tachycardia, +S1, +S2 - GI/Abdominal Exam GI & Abdominal Exam: Hypoactive Bowel Sounds, Soft, Tenderness - Extremities Exam Extremities exam: Positive for: full ROM Additional comments: LLE s/p amputation of front half of foot - Neurological Exam Neurological exam: Alert, CN II-XII Intact, Oriented x3 - Psychiatric Exam Psychiatric exam: Normal Affect, Normal Mood - Skin Skin Exam: Dry, Warm Results - Vital Signs Recent Vital Signs: Last Vital Signs Temp 98.9 F 06/05/18 20:43 Pulse 139 H 06/05/18 20:43 Resp 20 06/05/18 20:43 BP 137/100 H 06/05/18 20:43 Pulse Ox 99 06/05/18 23:14 - Labs Result Diagrams: 06/05/18 21:15 06/05/18 21:15 Labs: Laboratory Results - last 24 hr 06/05/18 06/05/18 06/05/18 21:15 21:15 21:15 WBC 28.0 H D RBC 5.33 Hgb 13.5 Hct 41.3 MCV 77.4 L D MCH 25.4 L MCHC 32.8 L RDW 13.3 Plt Count 320 D MPV 9.8 Neut % (Auto) 93.1 H Lymph % (Auto) 3.7 L [place] % (Auto) 2.9 Eos % (Auto) 0.0 Baso % (Auto) 0.3 Neut # (Auto) 26.0 H Lymph # (Auto) 1.0 [place] # (Auto) 0.8 Eos # (Auto) 0.0 Baso # (Auto) 0.1 Neutrophils % (Manual) 91 H Lymphocytes % (Manual) 7 L Monocytes % (Manual) 2 Hypersegmented Polys Present Platelet Estimate Normal Large Platelets Present Hypochromasia (manual) Slight Anisocytosis (manual) Slight Macrocytosis (manual) Slight Tear Drop Cells Slight Ovalocytes Moderate PT INR APTT pO2 VBG pH VBG pCO2 VBG HCO3 VBG Total CO2 VBG O2 Sat (Calc) VBG Base Excess VBG Potassium Glucose Lactate FiO2 Crit Value Called To Crit Value Called By Crit Value Read Back Blood Gas Notified Time Sodium 138 Potassium 3.1 L Chloride 92 L Carbon Dioxide 14 L Anion Gap 35 H BUN 104 H* D Creatinine 7.5 H* D Est GFR ( Amer) 9 Est GFR (Non-Af Amer) 8 Random Glucose 375 H Calcium 10.2 Phosphorus 7.5 H Magnesium 2.1 Total Bilirubin 0.7 AST 22 ALT 12 L D Alkaline Phosphatase 152 H D Troponin I 0.1330 H* Total Protein 10.5 H Albumin 5.2 H D Globulin 5.3 H Albumin/Globulin Ratio 1.0 Venous Blood Potassium Alcohol, Quantitative < 10 Blood Type O NEGATIVE Antibody Screen Negative BBK History Checked Patient has bt 06/05/18 06/05/18 21:15 21:30 WBC RBC Hgb Hct MCV MCH MCHC RDW Plt Count MPV Neut % (Auto) Lymph % (Auto) [place] % (Auto) Eos % (Auto) Baso % (Auto) Neut # (Auto) Lymph # (Auto) [place] # (Auto) Eos # (Auto) Baso # (Auto) Neutrophils % (Manual) Lymphocytes % (Manual) Monocytes % (Manual) Hypersegmented Polys Platelet Estimate Large Platelets Hypochromasia (manual) Anisocytosis (manual) Macrocytosis (manual) Tear Drop Cells Ovalocytes PT 12.5 INR 1.1 APTT 33.3 pO2 42 VBG pH 7.34 VBG pCO2 37 L VBG HCO3 20.2 VBG Total CO2 21.1 L VBG O2 Sat (Calc) 81.2 H VBG Base Excess -5.2 L VBG Potassium 3.5 L Glucose 391 H Lactate 4.9 H* FiO2 21.0 Crit Value Called To Dr bacilio berry Crit Value Called By Rt Crit Value Read Back Y Blood Gas Notified Time 2157 Sodium 135.0 Potassium Chloride 91.0 L Carbon Dioxide Anion Gap BUN Creatinine Est GFR ( Amer) Est GFR (Non-Af Amer) Random Glucose Calcium Phosphorus Magnesium Total Bilirubin AST ALT Alkaline Phosphatase Troponin I Total Protein Albumin Globulin Albumin/Globulin Ratio Venous Blood Potassium 3.5 L Alcohol, Quantitative Blood Type Antibody Screen BBK History Checked - EKG Data EKG Interpreted by: Myself EKG shows normal: Sinus rhythm Rate: Tachycardia - EKG Data EKG comments: sinus tach, LAD, LVH and repol abnormality - Imaging and Cardiology CT scan - abdomen Status: Pending Assessment & Plan (1) Upper gastrointestinal bleeding Assessment and Plan: 47 y/o male with multiple medical conditions with the following active problems: 1) Possible UGIB/coffee ground emesis -NPO -On protonix gtt -Zofran IV PRN for n/v -Consider prophylactic Abx if persistent hematemesis -GI consult 2) Diabetic gastroparesis -NPO, IVF -Zofran and Reglan IV PRN 3) Elevated trop -- likely 2/2 to renal failure rather than true NSTEMI -Serial trops -Cardiac monitoring -Cardiology consult in AM 4) AoC renal insufficiency/electrolyte abnormality -Gentle hydration -Replete K conservatively -Dose medications renally -Likely will need renal consult -Repeat BMP in AM 5) Elevated WC and elevated lactic acid -CT pending to make sure abd pain or other issues aren't due to underlying infection/sepsis vs. just vol depletion/vomiting -Abx if patient appears to be decompensating or actual infectious sources seen on CT 6) HTN -- cont home medications 7) DM2 -- SSI only for now 8) DVT PPx -- no heparin products given possible bleeding; SCDs Status: Acute (2) Diabetic gastroparesis Status: Acute (3) Abdominal pain Status: Acute (4) Elevated troponin Status: Acute (5) Leukocytosis Status: Acute (6) Electrolyte abnormality Status: Acute (7) Acute on chronic renal insufficiency Status: Acute (8) Hypertension Status: Chronic (9) DVT prophylaxis Status: Acute
[2018-06-06 00:26] LABS: VENOUS BLOOD GAS BASE EXCESS -2.7 mmol/L (0.0-2.0); VENOUS BLOOD GAS PCO2 40 mmHg (40-60); VENOUS BLOOD GAS PO2 64 mm/Hg (30-55); VENOUS BLOOD PH 7.36 (7.32-7.43)
[2018-06-06] MEDS: Pantoprazole 40 MG in Sodium Chloride 0.9% 100 ML IVPB SCH ×3 (00:46→12:52)
[2018-06-06] MEDS ORDERED: KCL 40MEQ/NS 1L 1,000 ML IV SCH (03:15)
[2018-06-06 05:04] LABS: HEMOGLOBIN 12.5 g/dL (12.0-18.0); MEAN CELL VOLUME 77.1 fl (80.0-94.0); MEAN CORPUSCULAR HEMOGLOBIN 25.4 pg (27.0-31.0); MEAN CORPUSCULAR HGB CONC 32.9 g/dL (33.0-37.0); RBC 4.93 Mil/uL (4.40-5.90); RED CELL DISTRIBUTION WIDTH 13.2 % (11.5-14.5); WHITE BLOOD COUNT 20.4 K/uL (4.8-10.8)
[2018-06-06 05:30] LABS: CALCIUM 9.5 mg/dL (8.4-10.2)
[2018-06-06 05:31] LABS: TROPONIN I 0.287 ng/mL (0.00-0.120)
[2018-06-06] MEDS ORDERED: Insulin Regular 100 units/ml SC STA (06:15)
--- NOTE | 2018-06-06 08:36 | CP.PCM.HP ---
<Yana Gibbons - Last Filed: 06/06/18 15:44> History of Present Illness - History of Present Illness History of Present Illness: 47 y/o male with pmh hypertension, CKD/ESRD (not on dialysis), DM2, hyperlipidemia, prior CVA, anemia, who presented to ED complaining of dark/ bloody vomiting, abdominal pain and weakness x2 days. Does not use NSAIDS, does not take aspirin or blood thinners. Denies chest pain, shortness of breath, diarrhea, constipation, urinary symptoms, fevers, sick symptoms. In ED: WBC 28.0, trend down to 24.0, Hgb 13.5, trend to 12.5, MCV 77 Coag: PT 12.5 INR 1.1 APTT 33.3 Initial lactate 4.9; repeat 2.8 CMP: BUN/Cr 104/7.5 Random glucose 375 Elevated troponin x2 EKG - sinus tachycardia, nonspecific changes GI consult Cardio consult This morning pt still complaining of nausea, states vomiting has improved. PMHx: hypertension, CKD/ESRD (not on dialysis), DM2, hyperlipidemia, prior CVA , anemia Surg Hx: RLE partial foot amputation Soc Hx: denies x3 Fam Hx: pt does not know Allergies: none Present on Admission - Present on Admission Any Indicators Present on Admission: Yes History of Uncontrolled Diabetes: Yes Review of Systems - Review of Systems Review of Systems: reviwed; positive as per HPI Past Patient History - Past Medical History & Family History Past Medical History?: Yes - Past Social History Smoking Status: Never Smoked Chewing Tobacco Use: No Alcohol: None Drugs: Denies - CARDIAC Hx Cardiac Disorders: Yes - PULMONARY Hx Chronic Obstructive Pulmonary Disease (COPD): No - NEUROLOGICAL Hx Neurological Disorder: No - HEENT Hx HEENT Problems: No - RENAL Hx Chronic Kidney Disease: Yes (ESRD pending HD) - ENDOCRINE/METABOLIC Hx Endocrine Disorders: Yes Hx Diabetes Mellitus Type 2: Yes - HEMATOLOGICAL/ONCOLOGICAL Hx Anemia: Yes Hx Human Immunodeficiency Virus (HIV): No - INTEGUMENTARY Hx Dermatological Problems: No - GASTROINTESTINAL Hx Gastrointestinal Disorders: Yes Hx Nausea: Yes Hx Vomiting: Yes - GENITOURINARY/GYNECOLOGICAL Hx Genitourinary Disorders: No - PSYCHIATRIC Hx Psychophysiologic Disorder: No Hx Substance Use: No - SURGICAL HISTORY Hx Surgeries: Yes Hx Amputation: Yes (tma right foot) Other/Comment: left suboccipital craniotomy - ANESTHESIA Hx Anesthesia: Yes Hx Anesthesia Reactions: No Hx Malignant Hyperthermia: No Meds Allergies/Adverse Reactions: Allergies Allergy/AdvReac Type Severity Reaction Status Date / Time Penicillins Allergy RASH Verified 12/13/17 20:49 Physical Exam - Constitutional Appears: No Acute Distress, Unkempt - Head Exam Head Exam: ATRAUMATIC, NORMOCEPHALIC - Eye Exam Eye Exam: PERRL - Respiratory Exam Respiratory Exam: Clear to Auscultation Bilateral, NORMAL BREATHING PATTERN - Cardiovascular Exam Cardiovascular Exam: REGULAR RHYTHM - GI/Abdominal Exam GI & Abdominal Exam: Normal Bowel Sounds, Soft - Extremities Exam Extremities exam: Negative for: calf tenderness Additional comments: left foot TMA - Neurological Exam Neurological exam: Alert Results - Vital Signs Recent Vital Signs: Last Vital Signs Temp 99.1 F 06/06/18 08:00 Pulse 97 H 06/06/18 08:00 Resp 15 06/06/18 08:00 BP 191/120 H 06/06/18 08:00 Pulse Ox 100 06/06/18 08:00 - Labs Result Diagrams: 06/06/18 04:59 06/06/18 04:59 Labs: Laboratory Results - last 24 hr 06/05/18 06/05/18 06/05/18 21:15 21:15 21:15 WBC 28.0 H D RBC 5.33 Hgb 13.5 Hct 41.3 MCV 77.4 L D MCH 25.4 L MCHC 32.8 L RDW 13.3 Plt Count 320 D MPV 9.8 Neut % (Auto) 93.1 H Lymph % (Auto) 3.7 L [place] % (Auto) 2.9 Eos % (Auto) 0.0 Baso % (Auto) 0.3 Neut # (Auto) 26.0 H Lymph # (Auto) 1.0 [place] # (Auto) 0.8 Eos # (Auto) 0.0 Baso # (Auto) 0.1 Neutrophils % (Manual) 91 H Lymphocytes % (Manual) 7 L Monocytes % (Manual) 2 Hypersegmented Polys Present Platelet Estimate Normal Large Platelets Present Hypochromasia (manual) Slight Anisocytosis (manual) Slight Macrocytosis (manual) Slight Tear Drop Cells Slight Ovalocytes Moderate PT INR APTT pO2 VBG pH VBG pCO2 VBG HCO3 VBG Total CO2 VBG O2 Sat (Calc) VBG Base Excess VBG Potassium Glucose Lactate FiO2 Crit Value Called To Crit Value Called By Crit Value Read Back Blood Gas Notified Time Sodium 138 Potassium 3.1 L Chloride 92 L Carbon Dioxide 14 L Anion Gap 35 H BUN 104 H* D Creatinine 7.5 H* D Est GFR ( Amer) 9 Est GFR (Non-Af Amer) 8 POC Glucose (mg/dL) Random Glucose 375 H Calcium 10.2 Phosphorus 7.5 H Magnesium 2.1 Total Bilirubin 0.7 AST 22 ALT 12 L D Alkaline Phosphatase 152 H D Troponin I 0.1330 H* Total Protein 10.5 H Albumin 5.2 H D Globulin 5.3 H Albumin/Globulin Ratio 1.0 Venous Blood Potassium Stool Occult Blood Alcohol, Quantitative < 10 Blood Type O NEGATIVE Antibody Screen Negative BBK History Checked Patient has bt 06/05/18 06/05/18 06/06/18 21:15 21:30 00:21 WBC RBC Hgb Hct MCV MCH MCHC RDW Plt Count MPV Neut % (Auto) Lymph % (Auto) [place] % (Auto) Eos % (Auto) Baso % (Auto) Neut # (Auto) Lymph # (Auto) [place] # (Auto) Eos # (Auto) Baso # (Auto) Neutrophils % (Manual) Lymphocytes % (Manual) Monocytes % (Manual) Hypersegmented Polys Platelet Estimate Large Platelets Hypochromasia (manual) Anisocytosis (manual) Macrocytosis (manual) Tear Drop Cells Ovalocytes PT 12.5 INR 1.1 APTT 33.3 pO2 42 64 H VBG pH 7.34 7.36 VBG pCO2 37 L 40 VBG HCO3 20.2 22.7 VBG Total CO2 21.1 L 23.8 VBG O2 Sat (Calc) 81.2 H 95.3 H VBG Base Excess -5.2 L -2.7 L VBG Potassium 3.5 L 3.1 L Glucose 391 H 333 H Lactate 4.9 H* 2.8 H FiO2 21.0 21.0 Crit Value Called To Dr bacilio berry Crit Value Called By Rt Crit Value Read Back Y Blood Gas Notified Time 2157 Sodium 135.0 137.0 Potassium Chloride 91.0 L 95.0 L Carbon Dioxide Anion Gap BUN Creatinine Est GFR ( Amer) Est GFR (Non-Af Amer) POC Glucose (mg/dL) Random Glucose Calcium Phosphorus Magnesium Total Bilirubin AST ALT Alkaline Phosphatase Troponin I Total Protein Albumin Globulin Albumin/Globulin Ratio Venous Blood Potassium 3.5 L 3.1 L Stool Occult Blood Alcohol, Quantitative Blood Type Antibody Screen BBK History Checked 06/06/18 06/06/18 06/06/18 01:03 04:59 04:59 WBC 20.4 H RBC 4.93 Hgb 12.5 Hct 38.0 MCV 77.1 L MCH 25.4 L MCHC 32.9 L RDW 13.2 Plt Count 261 MPV Neut % (Auto) Lymph % (Auto) [place] % (Auto) Eos % (Auto) Baso % (Auto) Neut # (Auto) Lymph # (Auto) [place] # (Auto) Eos # (Auto) Baso # (Auto) Neutrophils % (Manual) Lymphocytes % (Manual) Monocytes % (Manual) Hypersegmented Polys Platelet Estimate Large Platelets Hypochromasia (manual) Anisocytosis (manual) Macrocytosis (manual) Tear Drop Cells Ovalocytes PT INR APTT pO2 VBG pH VBG pCO2 VBG HCO3 VBG Total CO2 VBG O2 Sat (Calc) VBG Base Excess VBG Potassium Glucose Lactate FiO2 Crit Value Called To Crit Value Called By Crit Value Read Back Blood Gas Notified Time Sodium 140 Potassium 3.6 Chloride 97 L Carbon Dioxide 18 L Anion Gap 29 H BUN 109 H* Creatinine 7.8 H* Est GFR ( Amer) 9 Est GFR (Non-Af Amer) 7 POC Glucose (mg/dL) Random Glucose 297 H Calcium 9.5 Phosphorus Magnesium Total Bilirubin AST ALT Alkaline Phosphatase Troponin I 0.2870 H* Total Protein Albumin Globulin Albumin/Globulin Ratio Venous Blood Potassium Stool Occult Blood Positive H Alcohol, Quantitative Blood Type Antibody Screen BBK History Checked 06/06/18 06:07 WBC RBC Hgb Hct MCV MCH MCHC RDW Plt Count MPV Neut % (Auto) Lymph % (Auto) [place] % (Auto) Eos % (Auto) Baso % (Auto) Neut # (Auto) Lymph # (Auto) [place] # (Auto) Eos # (Auto) Baso # (Auto) Neutrophils % (Manual) Lymphocytes % (Manual) Monocytes % (Manual) Hypersegmented Polys Platelet Estimate Large Platelets Hypochromasia (manual) Anisocytosis (manual) Macrocytosis (manual) Tear Drop Cells Ovalocytes PT INR APTT pO2 VBG pH VBG pCO2 VBG HCO3 VBG Total CO2 VBG O2 Sat (Calc) VBG Base Excess VBG Potassium Glucose Lactate FiO2 Crit Value Called To Crit Value Called By Crit Value Read Back Blood Gas Notified Time Sodium Potassium Chloride Carbon Dioxide Anion Gap BUN Creatinine Est GFR ( Amer) Est GFR (Non-Af Amer) POC Glucose (mg/dL) 290 H Random Glucose Calcium Phosphorus Magnesium Total Bilirubin AST ALT Alkaline Phosphatase Troponin I Total Protein Albumin Globulin Albumin/Globulin Ratio Venous Blood Potassium Stool Occult Blood Alcohol, Quantitative Blood Type Antibody Screen BBK History Checked Assessment & Plan - Assessment and Plan (Free Text) Assessment: 47 yo male with hx ESRD, DM2, HTN, HLD, gastroparesis admitted for vomitting; intially suspected upper GI bleed. Plan: - DM2: Likely gastroporesis, continue with zofran, reglan, IV hydration, NPO. Insulin coverage scale/hypoglycemia protocol - ESRD: Nephrology consult - Elevated troponin - likely due to renal failure; cardiology consult - Vomitting - H/H, coag stable; monitor for blood in vomit; GI consult - HTN - resume home meds - SCD for DVT ppx <Lake,Joel K - Last Filed: 06/07/18 22:47> Results - Vital Signs Recent Vital Signs: Last Vital Signs Temp 98.3 F 06/07/18 20:00 Pulse 61 06/07/18 22:00 Resp 12 06/07/18 22:00 BP 137/76 06/07/18 22:00 Pulse Ox 99 06/07/18 22:00 - Labs Result Diagrams: 06/07/18 04:20 06/07/18 04:20 Labs: Laboratory Results - last 24 hr 06/07/18 06/07/18 06/07/18 04:20 04:20 06:11 WBC 17.0 H RBC 4.18 L Hgb 10.8 L Hct 32.7 L MCV 78.1 L MCH 25.9 L MCHC 33.1 RDW 13.2 Plt Count 201 Sodium 139 Potassium 3.1 L Chloride 102 Carbon Dioxide 22 Anion Gap 18 BUN 78 H Creatinine 5.2 H Est GFR ( Amer) 14 Est GFR (Non-Af Amer) 12 POC Glucose (mg/dL) 148 H Random Glucose 160 H Calcium 9.2 Total Bilirubin 0.6 AST 21 ALT 19 L D Alkaline Phosphatase 87 Total Protein 7.5 Albumin 3.9 Globulin 3.6 Albumin/Globulin Ratio 1.1 06/07/18 06/07/18 06/07/18 11:20 16:14 21:36 WBC RBC Hgb Hct MCV MCH MCHC RDW Plt Count Sodium Potassium Chloride Carbon Dioxide Anion Gap BUN Creatinine Est GFR ( Amer) Est GFR (Non-Af Amer) POC Glucose (mg/dL) 183 H 158 H 249 H Random Glucose Calcium Total Bilirubin AST ALT Alkaline Phosphatase Total Protein Albumin Globulin Albumin/Globulin Ratio Assessment & Plan - Assessment and Plan (Free Text) Plan: Patient was personally seen and examined by me in rounds with residents. Available labs and diagnostic data reviewed. Case, Patient's condition and management plan discussed with residents in rounds. Agree with resident's progress note. Plan: As ordered.
--- NOTE | 2018-06-06 08:46 | RAD ---
HISTORY: vomiting COMPARISON: Chest radiograph 12/13/2017. FINDINGS: LUNGS: No active airspace disease. Diminished inspiratory volume noted. PLEURA: No significant pleural effusion identified, no pneumothorax apparent. CARDIOVASCULAR: Stable cardiomediastinal silhouette. OSSEOUS STRUCTURES: No significant abnormalities. VISUALIZED UPPER ABDOMEN: Normal. OTHER FINDINGS: None. IMPRESSION: No active airspace disease. Diminished inspiratory volume noted.No acute cardiovascular changes appreciated.
[2018-06-06] MEDS ORDERED: Sodium Chloride 0.9% 500 ML IV ONE (09:48)
--- NOTE | 2018-06-06 09:51 | CP.CCUPN ---
<Fawad Botello - Last Filed: 06/06/18 12:18> CCU Subjective - Physician Review Events Since Last Encounter (Free Text): 06/06/18 10:18 47 yo M pmhx of HTN, ESRD not on HD, DM2, dyslipidemia, hx of CVA, and anemia. Pt actively retching and producing yellow, mucous vomit. Pt reports dizzness, and epigastric tenderness. Denies: headache, chest pain, sob. CCU Objective - Vital Signs / Intake & Output Vital Signs (Last 4 hours): Vital Signs Temp Pulse Resp BP Pulse Ox 06/06/18 08:52 107 H 191/120 H 06/06/18 08:00 99.1 F 97 H 15 191/120 H 100 06/06/18 07:29 107 H 16 139/98 H 98 Intake and Output (Last 8hrs): Intake & Output 06/05/18 06/06/18 06/06/18 22:59 06:59 14:59 Weight 255 lb - Physical Exam Physical Exam Limitations: Negative for: Altered Mental Status Extroacular Muscles: Positive for: EOMI Neck: Positive for: Normal Range of Motion Respiratory/Chest: Positive for: Clear to Auscultation, Good Air Exchange. Negative for: Respiratory Distress, Wheezes Cardiovascular: Positive for: Regular Rate and Rhythm. Negative for: Murmurs Abdomen: Positive for: Tenderness (epigastric), Distention, Normal Bowel Sounds Neurological: Positive for: Speech Normal Psychiatric: Positive for: Alert, Oriented x 3, Normal Insight, Normal Concentration - Medications Active Medications: Active Medications Generic Name Dose Route Start Last Admin Trade Name Hadleyq PRN Reason Stop Dose Admin Amlodipine Besylate 10 mg 06/06/18 09:00 Norvasc PO DAILY [facility] Atenolol 50 mg 06/06/18 09:00 Tenormin PO DAILY [facility] Calcium Acetate 667 mg 06/06/18 09:00 Phoslo PO WM@0900,1300,1700 BASHIR Clonidine HCl 0.3 mg 06/06/18 09:00 Catapres PO TID BASHIR Gabapentin 100 mg 06/06/18 09:00 Neurontin PO TID BASHIR Hydralazine HCl 100 mg 06/06/18 01:00 06/06/18 08:52 Apresoline PO 100 mg Q8 BASHIR Administration Pantoprazole Sodium 40 mg/ 100 mls @ 20 mls/hr 06/05/18 21:15 06/06/18 07:35 Sodium Chloride IVPB 20 mls/hr Q5H BASHIR Administration 8 MG/HR Sodium Chloride 500 mls @ 500 mls/hr 06/06/18 09:48 Sodium Chloride 0.9% IV 06/06/18 10:47 .Q1H ONE Sodium Chloride 1,000 mls @ 175 mls/hr 06/06/18 10:00 Sodium Chloride 0.9% IV 06/07/18 09:48 .Q5H43M [facility] Insulin Human Lispro 0 units 06/05/18 23:15 Humalog SC Q6H [facility] Protocol Metoclopramide HCl 10 mg 06/05/18 23:10 06/06/18 06:22 Reglan IVP 10 mg Q6 PRN Administration Nausea/Vomiting Nifedipine 30 mg 06/06/18 09:00 Procardia Xl PO DAILY [facility] Ondansetron HCl 4 mg 06/05/18 23:07 06/06/18 09:01 Zofran Inj IVP 4 mg Q6H PRN Administration Nausea/Vomiting Ondansetron HCl 4 mg 06/06/18 10:00 Zofran Inj IVP Q6 [facility] - Patient Studies Lab Studies: Lab Studies 06/06/18 06/06/18 06/06/18 Range/Units 06:07 04:59 04:59 WBC 20.4 H (4.8-10.8) K/uL RBC 4.93 (4.40-5.90) Mil/uL Hgb 12.5 (12.0-18.0) g/dL Hct 38.0 (35.0-51.0) % MCV 77.1 L (80.0-94.0) fl MCH 25.4 L (27.0-31.0) pg MCHC 32.9 L (33.0-37.0) g/dL RDW 13.2 (11.5-14.5) % Plt Count 261 (130-400) K/uL MPV (7.2-11.7) fl Neut % (Auto) (50.0-75.0) % Lymph % (Auto) (20.0-40.0) % [place] % (Auto) (0.0-10.0) % Eos % (Auto) (0.0-4.0) % Baso % (Auto) (0.0-2.0) % Neut # (Auto) (1.8-7.0) K/uL Lymph # (Auto) (1.0-4.3) K/uL [place] # (Auto) (0.0-0.8) K/uL Eos # (Auto) (0.0-0.7) K/uL Baso # (Auto) (0.0-0.2) K/uL Neutrophils % (Manual) (42-75) % Lymphocytes % (Manual) (20-50) % Monocytes % (Manual) (0-10) % Hypersegmented Polys Platelet Estimate (NORMAL) Large Platelets Hypochromasia (manual) Anisocytosis (manual) Macrocytosis (manual) Tear Drop Cells Ovalocytes PT (9.8-13.1) Seconds INR (0.9-1.2) APTT (25.6-37.1) Seconds pO2 (30-55) mm/Hg VBG pH (7.32-7.43) VBG pCO2 (40-60) mmHg VBG HCO3 mmol/L VBG Total CO2 (22-28) mmol/L VBG O2 Sat (Calc) (40-65) % VBG Base Excess (0.0-2.0) mmol/L VBG Potassium (3.6-5.2) mmol/L Glucose (75-110) mg/dL Lactate (0.7-2.1) mmol/L FiO2 % Crit Value Called To Crit Value Called By Crit Value Read Back Blood Gas Notified Time Sodium 140 (132-148) mmol/l Potassium 3.6 (3.6-5.0) MMOL/L Chloride 97 L (98-107) mmol/L Carbon Dioxide 18 L (22-30) mmol/L Anion Gap 29 H (10-20) BUN 109 H* (9-20) mg/dl Creatinine 7.8 H* (0.8-1.5) mg/dl Est GFR ( Amer) 9 Est GFR (Non-Af Amer) 7 POC Glucose (mg/dL) 290 H (65-110) mg/dL Random Glucose 297 H (75-110) mg/dL Calcium 9.5 (8.4-10.2) mg/dL Phosphorus (2.5-4.5) mg/dl Magnesium (1.6-2.3) MG/DL Total Bilirubin (0.2-1.3) mg/dl AST (17-59) U/L ALT (21-72) U/L Alkaline Phosphatase (38-126) U/L Troponin I 0.2870 H* (0.00-0.120) ng/mL Total Protein (6.3-8.2) G/DL Albumin (3.5-5.0) g/dL Globulin (2.2-3.9) gm/dL Albumin/Globulin Ratio (1.0-2.1) Venous Blood Potassium (3.6-5.2) mmol/L Stool Occult Blood (NEGATIVE) Alcohol, Quantitative (0-10) mg/dl Blood Type Antibody Screen BBK History Checked 06/06/18 06/06/18 06/05/18 Range/Units 01:03 00:21 21:30 WBC (4.8-10.8) K/uL RBC (4.40-5.90) Mil/uL Hgb (12.0-18.0) g/dL Hct (35.0-51.0) % MCV (80.0-94.0) fl MCH (27.0-31.0) pg MCHC (33.0-37.0) g/dL RDW (11.5-14.5) % Plt Count (130-400) K/uL MPV (7.2-11.7) fl Neut % (Auto) (50.0-75.0) % Lymph % (Auto) (20.0-40.0) % [place] % (Auto) (0.0-10.0) % Eos % (Auto) (0.0-4.0) % Baso % (Auto) (0.0-2.0) % Neut # (Auto) (1.8-7.0) K/uL Lymph # (Auto) (1.0-4.3) K/uL [place] # (Auto) (0.0-0.8) K/uL Eos # (Auto) (0.0-0.7) K/uL Baso # (Auto) (0.0-0.2) K/uL Neutrophils % (Manual) (42-75) % Lymphocytes % (Manual) (20-50) % Monocytes % (Manual) (0-10) % Hypersegmented Polys Platelet Estimate (NORMAL) Large Platelets Hypochromasia (manual) Anisocytosis (manual) Macrocytosis (manual) Tear Drop Cells Ovalocytes PT (9.8-13.1) Seconds INR (0.9-1.2) APTT (25.6-37.1) Seconds pO2 64 H 42 (30-55) mm/Hg VBG pH 7.36 7.34 (7.32-7.43) VBG pCO2 40 37 L (40-60) mmHg VBG HCO3 22.7 20.2 mmol/L VBG Total CO2 23.8 21.1 L (22-28) mmol/L VBG O2 Sat (Calc) 95.3 H 81.2 H (40-65) % VBG Base Excess -2.7 L -5.2 L (0.0-2.0) mmol/L VBG Potassium 3.1 L 3.5 L (3.6-5.2) mmol/L Glucose 333 H 391 H (75-110) mg/dL Lactate 2.8 H 4.9 H* (0.7-2.1) mmol/L FiO2 21.0 21.0 % Crit Value Called To Dr bacilio berry Crit Value Called By Rt Crit Value Read Back Y Blood Gas Notified Time 2157 Sodium 137.0 135.0 (132-148) mmol/l Potassium (3.6-5.0) MMOL/L Chloride 95.0 L 91.0 L (98-107) mmol/L Carbon Dioxide (22-30) mmol/L Anion Gap (10-20) BUN (9-20) mg/dl Creatinine (0.8-1.5) mg/dl Est GFR ( Amer) Est GFR (Non-Af Amer) POC Glucose (mg/dL) (65-110) mg/dL Random Glucose (75-110) mg/dL Calcium (8.4-10.2) mg/dL Phosphorus (2.5-4.5) mg/dl Magnesium (1.6-2.3) MG/DL Total Bilirubin (0.2-1.3) mg/dl AST (17-59) U/L ALT (21-72) U/L Alkaline Phosphatase (38-126) U/L Troponin I (0.00-0.120) ng/mL Total Protein (6.3-8.2) G/DL Albumin (3.5-5.0) g/dL Globulin (2.2-3.9) gm/dL Albumin/Globulin Ratio (1.0-2.1) Venous Blood Potassium 3.1 L 3.5 L (3.6-5.2) mmol/L Stool Occult Blood Positive H (NEGATIVE) Alcohol, Quantitative (0-10) mg/dl Blood Type Antibody Screen BBK History Checked 06/05/18 06/05/18 06/05/18 Range/Units 21:15 21:15 21:15 WBC 28.0 H D (4.8-10.8) K/uL RBC 5.33 (4.40-5.90) Mil/uL Hgb 13.5 (12.0-18.0) g/dL Hct 41.3 (35.0-51.0) % MCV 77.4 L D (80.0-94.0) fl MCH 25.4 L (27.0-31.0) pg MCHC 32.8 L (33.0-37.0) g/dL RDW 13.3 (11.5-14.5) % Plt Count 320 D (130-400) K/uL MPV 9.8 (7.2-11.7) fl Neut % (Auto) 93.1 H (50.0-75.0) % Lymph % (Auto) 3.7 L (20.0-40.0) % [place] % (Auto) 2.9 (0.0-10.0) % Eos % (Auto) 0.0 (0.0-4.0) % Baso % (Auto) 0.3 (0.0-2.0) % Neut # (Auto) 26.0 H (1.8-7.0) K/uL Lymph # (Auto) 1.0 (1.0-4.3) K/uL [place] # (Auto) 0.8 (0.0-0.8) K/uL Eos # (Auto) 0.0 (0.0-0.7) K/uL Baso # (Auto) 0.1 (0.0-0.2) K/uL Neutrophils % (Manual) 91 H (42-75) % Lymphocytes % (Manual) 7 L (20-50) % Monocytes % (Manual) 2 (0-10) % Hypersegmented Polys Present Platelet Estimate Normal (NORMAL) Large Platelets Present Hypochromasia (manual) Slight Anisocytosis (manual) Slight Macrocytosis (manual) Slight Tear Drop Cells Slight Ovalocytes Moderate PT 12.5 (9.8-13.1) Seconds INR 1.1 (0.9-1.2) APTT 33.3 (25.6-37.1) Seconds pO2 (30-55) mm/Hg VBG pH (7.32-7.43) VBG pCO2 (40-60) mmHg VBG HCO3 mmol/L VBG Total CO2 (22-28) mmol/L VBG O2 Sat (Calc) (40-65) % VBG Base Excess (0.0-2.0) mmol/L VBG Potassium (3.6-5.2) mmol/L Glucose (75-110) mg/dL Lactate (0.7-2.1) mmol/L FiO2 % Crit Value Called To Crit Value Called By Crit Value Read Back Blood Gas Notified Time Sodium (132-148) mmol/l Potassium (3.6-5.0) MMOL/L Chloride (98-107) mmol/L Carbon Dioxide (22-30) mmol/L Anion Gap (10-20) BUN (9-20) mg/dl Creatinine (0.8-1.5) mg/dl Est GFR ( Amer) Est GFR (Non-Af Amer) POC Glucose (mg/dL) (65-110) mg/dL Random Glucose (75-110) mg/dL Calcium (8.4-10.2) mg/dL Phosphorus (2.5-4.5) mg/dl Magnesium (1.6-2.3) MG/DL Total Bilirubin (0.2-1.3) mg/dl AST (17-59) U/L ALT (21-72) U/L Alkaline Phosphatase (38-126) U/L Troponin I (0.00-0.120) ng/mL Total Protein (6.3-8.2) G/DL Albumin (3.5-5.0) g/dL Globulin (2.2-3.9) gm/dL Albumin/Globulin Ratio (1.0-2.1) Venous Blood Potassium (3.6-5.2) mmol/L Stool Occult Blood (NEGATIVE) Alcohol, Quantitative (0-10) mg/dl Blood Type O NEGATIVE Antibody Screen Negative BBK History Checked Patient has bt 06/05/18 Range/Units 21:15 WBC (4.8-10.8) K/uL RBC (4.40-5.90) Mil/uL Hgb (12.0-18.0) g/dL Hct (35.0-51.0) % MCV (80.0-94.0) fl MCH (27.0-31.0) pg MCHC (33.0-37.0) g/dL RDW (11.5-14.5) % Plt Count (130-400) K/uL MPV (7.2-11.7) fl Neut % (Auto) (50.0-75.0) % Lymph % (Auto) (20.0-40.0) % [place] % (Auto) (0.0-10.0) % Eos % (Auto) (0.0-4.0) % Baso % (Auto) (0.0-2.0) % Neut # (Auto) (1.8-7.0) K/uL Lymph # (Auto) (1.0-4.3) K/uL [place] # (Auto) (0.0-0.8) K/uL Eos # (Auto) (0.0-0.7) K/uL Baso # (Auto) (0.0-0.2) K/uL Neutrophils % (Manual) (42-75) % Lymphocytes % (Manual) (20-50) % Monocytes % (Manual) (0-10) % Hypersegmented Polys Platelet Estimate (NORMAL) Large Platelets Hypochromasia (manual) Anisocytosis (manual) Macrocytosis (manual) Tear Drop Cells Ovalocytes PT (9.8-13.1) Seconds INR (0.9-1.2) APTT (25.6-37.1) Seconds pO2 (30-55) mm/Hg VBG pH (7.32-7.43) VBG pCO2 (40-60) mmHg VBG HCO3 mmol/L VBG Total CO2 (22-28) mmol/L VBG O2 Sat (Calc) (40-65) % VBG Base Excess (0.0-2.0) mmol/L VBG Potassium (3.6-5.2) mmol/L Glucose (75-110) mg/dL Lactate (0.7-2.1) mmol/L FiO2 % Crit Value Called To Crit Value Called By Crit Value Read Back Blood Gas Notified Time Sodium 138 (132-148) mmol/l Potassium 3.1 L (3.6-5.0) MMOL/L Chloride 92 L (98-107) mmol/L Carbon Dioxide 14 L (22-30) mmol/L Anion Gap 35 H (10-20) BUN 104 H* D (9-20) mg/dl Creatinine 7.5 H* D (0.8-1.5) mg/dl Est GFR ( Amer) 9 Est GFR (Non-Af Amer) 8 POC Glucose (mg/dL) (65-110) mg/dL Random Glucose 375 H (75-110) mg/dL Calcium 10.2 (8.4-10.2) mg/dL Phosphorus 7.5 H (2.5-4.5) mg/dl Magnesium 2.1 (1.6-2.3) MG/DL Total Bilirubin 0.7 (0.2-1.3) mg/dl AST 22 (17-59) U/L ALT 12 L D (21-72) U/L Alkaline Phosphatase 152 H D (38-126) U/L Troponin I 0.1330 H* (0.00-0.120) ng/mL Total Protein 10.5 H (6.3-8.2) G/DL Albumin 5.2 H D (3.5-5.0) g/dL Globulin 5.3 H (2.2-3.9) gm/dL Albumin/Globulin Ratio 1.0 (1.0-2.1) Venous Blood Potassium (3.6-5.2) mmol/L Stool Occult Blood (NEGATIVE) Alcohol, Quantitative < 10 (0-10) mg/dl Blood Type Antibody Screen BBK History Checked Laboratory Results - last 24 hr 06/05/18 06/05/18 06/05/18 21:15 21:15 21:15 WBC 28.0 H D RBC 5.33 Hgb 13.5 Hct 41.3 MCV 77.4 L D MCH 25.4 L MCHC 32.8 L RDW 13.3 Plt Count 320 D MPV 9.8 Neut % (Auto) 93.1 H Lymph % (Auto) 3.7 L [place] % (Auto) 2.9 Eos % (Auto) 0.0 Baso % (Auto) 0.3 Neut # (Auto) 26.0 H Lymph # (Auto) 1.0 [place] # (Auto) 0.8 Eos # (Auto) 0.0 Baso # (Auto) 0.1 Neutrophils % (Manual) 91 H Lymphocytes % (Manual) 7 L Monocytes % (Manual) 2 Hypersegmented Polys Present Platelet Estimate Normal Large Platelets Present Hypochromasia (manual) Slight Anisocytosis (manual) Slight Macrocytosis (manual) Slight Tear Drop Cells Slight Ovalocytes Moderate PT INR APTT pO2 VBG pH VBG pCO2 VBG HCO3 VBG Total CO2 VBG O2 Sat (Calc) VBG Base Excess VBG Potassium Glucose Lactate FiO2 Crit Value Called To Crit Value Called By Crit Value Read Back Blood Gas Notified Time Sodium 138 Potassium 3.1 L Chloride 92 L Carbon Dioxide 14 L Anion Gap 35 H BUN 104 H* D Creatinine 7.5 H* D Est GFR ( Amer) 9 Est GFR (Non-Af Amer) 8 POC Glucose (mg/dL) Random Glucose 375 H Calcium 10.2 Phosphorus 7.5 H Magnesium 2.1 Total Bilirubin 0.7 AST 22 ALT 12 L D Alkaline Phosphatase 152 H D Troponin I 0.1330 H* Total Protein 10.5 H Albumin 5.2 H D Globulin 5.3 H Albumin/Globulin Ratio 1.0 Venous Blood Potassium Stool Occult Blood Alcohol, Quantitative < 10 Blood Type O NEGATIVE Antibody Screen Negative BBK History Checked Patient has bt 06/05/18 06/05/18 06/06/18 21:15 21:30 00:21 WBC RBC Hgb Hct MCV MCH MCHC RDW Plt Count MPV Neut % (Auto) Lymph % (Auto) [place] % (Auto) Eos % (Auto) Baso % (Auto) Neut # (Auto) Lymph # (Auto) [place] # (Auto) Eos # (Auto) Baso # (Auto) Neutrophils % (Manual) Lymphocytes % (Manual) Monocytes % (Manual) Hypersegmented Polys Platelet Estimate Large Platelets Hypochromasia (manual) Anisocytosis (manual) Macrocytosis (manual) Tear Drop Cells Ovalocytes PT 12.5 INR 1.1 APTT 33.3 pO2 42 64 H VBG pH 7.34 7.36 VBG pCO2 37 L 40 VBG HCO3 20.2 22.7 VBG Total CO2 21.1 L 23.8 VBG O2 Sat (Calc) 81.2 H 95.3 H VBG Base Excess -5.2 L -2.7 L VBG Potassium 3.5 L 3.1 L Glucose 391 H 333 H Lactate 4.9 H* 2.8 H FiO2 21.0 21.0 Crit Value Called To Dr bacilio berry Crit Value Called By Rt Crit Value Read Back Y Blood Gas Notified Time 2158 Sodium 135.0 137.0 Potassium Chloride 91.0 L 95.0 L Carbon Dioxide Anion Gap BUN Creatinine Est GFR ( Amer) Est GFR (Non-Af Amer) POC Glucose (mg/dL) Random Glucose Calcium Phosphorus Magnesium Total Bilirubin AST ALT Alkaline Phosphatase Troponin I Total Protein Albumin Globulin Albumin/Globulin Ratio Venous Blood Potassium 3.5 L 3.1 L Stool Occult Blood Alcohol, Quantitative Blood Type Antibody Screen BBK History Checked 06/06/18 06/06/18 06/06/18 01:03 04:59 04:59 WBC 20.4 H RBC 4.93 Hgb 12.5 Hct 38.0 MCV 77.1 L MCH 25.4 L MCHC 32.9 L RDW 13.2 Plt Count 261 MPV Neut % (Auto) Lymph % (Auto) [place] % (Auto) Eos % (Auto) Baso % (Auto) Neut # (Auto) Lymph # (Auto) [place] # (Auto) Eos # (Auto) Baso # (Auto) Neutrophils % (Manual) Lymphocytes % (Manual) Monocytes % (Manual) Hypersegmented Polys Platelet Estimate Large Platelets Hypochromasia (manual) Anisocytosis (manual) Macrocytosis (manual) Tear Drop Cells Ovalocytes PT INR APTT pO2 VBG pH VBG pCO2 VBG HCO3 VBG Total CO2 VBG O2 Sat (Calc) VBG Base Excess VBG Potassium Glucose Lactate FiO2 Crit Value Called To Crit Value Called By Crit Value Read Back Blood Gas Notified Time Sodium 140 Potassium 3.6 Chloride 97 L Carbon Dioxide 18 L Anion Gap 29 H BUN 109 H* Creatinine 7.8 H* Est GFR ( Amer) 9 Est GFR (Non-Af Amer) 7 POC Glucose (mg/dL) Random Glucose 297 H Calcium 9.5 Phosphorus Magnesium Total Bilirubin AST ALT Alkaline Phosphatase Troponin I 0.2870 H* Total Protein Albumin Globulin Albumin/Globulin Ratio Venous Blood Potassium Stool Occult Blood Positive H Alcohol, Quantitative Blood Type Antibody Screen BBK History Checked 06/06/18 06:07 WBC RBC Hgb Hct MCV MCH MCHC RDW Plt Count MPV Neut % (Auto) Lymph % (Auto) [place] % (Auto) Eos % (Auto) Baso % (Auto) Neut # (Auto) Lymph # (Auto) [place] # (Auto) Eos # (Auto) Baso # (Auto) Neutrophils % (Manual) Lymphocytes % (Manual) Monocytes % (Manual) Hypersegmented Polys Platelet Estimate Large Platelets Hypochromasia (manual) Anisocytosis (manual) Macrocytosis (manual) Tear Drop Cells Ovalocytes PT INR APTT pO2 VBG pH VBG pCO2 VBG HCO3 VBG Total CO2 VBG O2 Sat (Calc) VBG Base Excess VBG Potassium Glucose Lactate FiO2 Crit Value Called To Crit Value Called By Crit Value Read Back Blood Gas Notified Time Sodium Potassium Chloride Carbon Dioxide Anion Gap BUN Creatinine Est GFR ( Amer) Est GFR (Non-Af Amer) POC Glucose (mg/dL) 290 H Random Glucose Calcium Phosphorus Magnesium Total Bilirubin AST ALT Alkaline Phosphatase Troponin I Total Protein Albumin Globulin Albumin/Globulin Ratio Venous Blood Potassium Stool Occult Blood Alcohol, Quantitative Blood Type Antibody Screen BBK History Checked EKG/Cardiology Studies: Cardiology / EKG Studies 06/05/18 21:02 ELECTROCARDIOGRAM Stat Comment: Mode Of Transportation: Reason For Exam: needed Fingerstick Blood Sugar Results: 290 Review of Systems - EENT Eyes: As Per HPI - Cardiovascular Cardiovascular: absent: Chest Pain, Chest Pain at Rest - Respiratory Respiratory: absent: Cough, Dyspnea - Gastrointestinal Gastrointestinal: Abdominal Pain (epigastric), Coffee Ground Emesis, Vomiting - Neurological Neurological: As Per HPI - Psychiatric Psychiatric: As Per HPI Critical Care Progress Note - Nutrition Nutrition: Nutrition Category Date Time Status NPO Diet [DIET] Diets 06/05/18 Breakfast Active Assessment/Plan - Assessment and Plan (Free Text) Assessment: 47 yo M pmhx of HTN, ESRD not on HD, DM2, DLD, hx Plan: Coffee ground emesis -possibly 2/2 diabetic gastroparesis or uremia -Zofran and Reglan -NPO -Stool occult blood positive -GI: Dr. Jc consulted -CT abdo/pelvis: IMPRESSION: 1. No obstructive uropathy, radiodense urolithiasis or interval change in perinephric stranding bilaterally. 2. Further evaluation the remaining abdominal pelvic viscera is limited due to the lack of contrast agents but no definite acute findings are appreciable this time. Moderate fecal loading is seen throughout the colon. -Monitor for further melena/coffee ground emesis, hematochezia -f/u CBC Elevated troponin -0.1330 --> 0.2870 -f/u 3rd trop -Cardiology: Dr. Brunner consulted ESRD -not on HD -BUN 109; Cr: 7.8 -Nephrology consulted -No AV shunt in place. May require HD -f/u CMP Hypokalemia -3.1-->3.6 -s/p KDUR 40meq and IVF: KCL -f/u cmp HTN -Continue home meds -hypertensive; will consider increasing Atenolol -monitor vitals and symptoms DM2 -SSI -accucheck DVT prophylaxis -anticoagulants are contraindicated due to recent GI bleed -SCD boots Case dw Dr. Lisa, Slip Sheeter Fawad Botello MD PGY1 <Derick Lisa - Last Filed: 06/07/18 10:20> CCU Subjective - Physician Review Events Since Last Encounter (Free Text): Attestation: Patient seen and examined at the bedside with Resident Dr. Bulmaro Botello; and I agree with his outline of plans and management documented below as discussed on AM rounds reflecting my review of all applicable clinical data, and participation in the care of the patient throughout the day in ICU; today, June 06, 2018.
--- NOTE | 2018-06-06 10:54 | CT ---
PROCEDURE: CT Abdomen and Pelvis without intravenous contrast HISTORY: R/O stone COMPARISON: Abdomen pelvis CT without IV contrast 09/09/2017. TECHNIQUE: Helical CT of the abdomen and pelvis was performed without oral or intravenous contrast as per referring physician request. Contrast dose: None Radiation dose: Total exam DLP = 1152.56 mGy-cm. This CT exam was performed using one or more of the following dose reduction techniques: Automated exposure control, adjustment of the mA and/or kV according to patient size, and/or use of iterative reconstruction technique. FINDINGS: LOWER THORAX: Mild pericardial thickening or effusion reiterated. No pleural effusion bilaterally. Tiny hiatal hernia identified. LIVER: Unremarkable. No gross lesion or ductal dilatation. GALLBLADDER AND BILE DUCTS: Unremarkable. PANCREAS: Unremarkable. No gross lesion or ductal dilatation. SPLEEN: Unremarkable. ADRENALS: Unremarkable. No mass. KIDNEYS AND URETERS: There is no radiodense urolithiasis, obstructive uropathy or perinephric reaction bilaterally. Kidneys appear homogeneous in overall density throughout. Urinary bladder appears unremarkable as well. Stable perinephric stranding is appreciated without suspicious interval change. VASCULATURE: Unremarkable. No aortic aneurysm. BOWEL: Stomach is not fully distended limiting its evaluation as well as lack of oral contrast. No bowel obstruction or local pericolic or perienteric reaction appreciable. Moderate fecal loading is seen throughout the majority colon. APPENDIX: Unremarkable. Normal appendix. PERITONEUM: Unremarkable. No free fluid. No free air. LYMPH NODES: Unremarkable. No enlarged lymph nodes. BLADDER: Unremarkable. REPRODUCTIVE: Mild prostate gland enlargement reiterated. BONES: No acute fracture. OTHER FINDINGS: None. IMPRESSION: 1. No obstructive uropathy, radiodense urolithiasis or interval change in perinephric stranding bilaterally. 2. Further evaluation the remaining abdominal pelvic viscera is limited due to the lack of contrast agents but no definite acute findings are appreciable this time. Moderate fecal loading is seen throughout the colon.
[2018-06-06] MEDS: NIFEdipine 30 mg ER Tab PO SCH (11:10)
[2018-06-06] MEDS: Insulin Lispro (humaLOG) 100 Units/ml Inj SC SCH ×4 (11:31→22:28)
[2018-06-06] MEDS: Sodium Chloride 0.9% 1,000 ML IV SCH ×4 (11:39→22:30)
--- NOTE | 2018-06-06 13:01 | CP.PCM.CON ---
History of Present Illness - History of Present Illness History of Present Illness: Consultation for evaluation of +ve TnI HPI: Review of Systems - Review of Systems Systems not reviewed;Unavailable: Acuity of Condition - Constitutional Constitutional: As Per HPI - EENT Eyes: As Per HPI Ears: As Per HPI Nose/Mouth/Throat: As Per HPI - Cardiovascular Cardiovascular: As Per HPI - Respiratory Respiratory: As Per HPI - Gastrointestinal Gastrointestinal: As Per HPI - Genitourinary Genitourinary: As Per HPI - Reproductive: Male Reproductive:Male: As Per HPI - Musculoskeletal Musculoskeletal: As Per HPI - Integumentary Integumentary: As Per HPI - Neurological Neurological: As Per HPI - Psychiatric Psychiatric: As Per HPI - Endocrine Endocrine: As Per HPI - Hematologic/Lymphatic Hematologic: As Per HPI Past Patient History - Past Medical History & Family History Past Medical History?: Yes - Past Social History Smoking Status: Never Smoked Chewing Tobacco Use: No Alcohol: None Drugs: Denies - CARDIAC Hx Cardiac Disorders: Yes - PULMONARY Hx Chronic Obstructive Pulmonary Disease (COPD): No - NEUROLOGICAL Hx Neurological Disorder: No - HEENT Hx HEENT Problems: No - RENAL Hx Chronic Kidney Disease: Yes (ESRD pending HD) - ENDOCRINE/METABOLIC Hx Endocrine Disorders: Yes Hx Diabetes Mellitus Type 2: Yes - HEMATOLOGICAL/ONCOLOGICAL Hx Anemia: Yes Hx Human Immunodeficiency Virus (HIV): No - INTEGUMENTARY Hx Dermatological Problems: No - MUSCULOSKELETAL/RHEUMATOLOGICAL Hx Arthritis: No Hx Rheumatoid Arthritis: No - GASTROINTESTINAL Hx Gastrointestinal Disorders: Yes Hx Nausea: Yes Hx Vomiting: Yes - GENITOURINARY/GYNECOLOGICAL Hx Genitourinary Disorders: No - PSYCHIATRIC Hx Psychophysiologic Disorder: No Hx Substance Use: No - SURGICAL HISTORY Hx Surgeries: Yes Hx Amputation: Yes (tma right foot) Other/Comment: left suboccipital craniotomy - ANESTHESIA Hx Anesthesia: Yes Hx Anesthesia Reactions: No Hx Malignant Hyperthermia: No Meds Allergies/Adverse Reactions: Allergies Allergy/AdvReac Type Severity Reaction Status Date / Time Penicillins Allergy RASH Verified 12/13/17 20:49 - Medications Medications: Current Medications Amlodipine Besylate (Norvasc) 10 mg PO DAILY [facility] Last Admin: 06/06/18 11:09 Dose: 10 mg Atenolol (Tenormin) 50 mg PO DAILY [facility] Last Admin: 06/06/18 12:57 Dose: 50 mg Calcium Acetate (Phoslo) 667 mg PO WM@0900,1300,1700 [facility] Last Admin: 06/06/18 12:49 Dose: 667 mg Clonidine HCl (Catapres) 0.3 mg PO TID COUNT [facility]CLUDES [facility] Last Admin: 06/06/18 12:47 Dose: 0.3 mg Gabapentin (Neurontin) 100 mg PO TID [facility] Last Admin: 06/06/18 12:49 Dose: 100 mg Hydralazine HCl (Apresoline) 100 mg PO Q8 [facility] Last Admin: 06/06/18 08:52 Dose: 100 mg Pantoprazole Sodium 40 mg/ (Sodium Chloride) 100 mls @ 20 mls/hr IVPB Q5H COUNT [facility]CLUDES [facility] PRN Reason: 8 MG/HR Last Admin: 06/06/18 12:52 Dose: 20 mls/hr Sodium Chloride (Sodium Chloride 0.9%) 1,000 mls @ 175 mls/hr IV .Q5H43M COUNT [facility]CLUDES [facility] Stop: 06/07/18 09:48 Last Admin: 06/06/18 12:56 Dose: 175 mls/hr Insulin Human Lispro (Humalog) 0 units SC Q6H COUNT [facility]CLUDES [facility] PRN Reason: Protocol Last Admin: 06/06/18 11:37 Dose: 2 u Metoclopramide HCl (Reglan) 10 mg IVP Q6 PRN PRN Reason: Nausea/Vomiting Last Admin: 06/06/18 06:22 Dose: 10 mg Nifedipine (Procardia Xl) 30 mg PO DAILY [facility] Last Admin: 06/06/18 11:10 Dose: 30 mg Ondansetron HCl (Zofran Inj) 4 mg IVP Q6H PRN PRN Reason: Nausea/Vomiting Last Admin: 06/06/18 09:01 Dose: 4 mg Ondansetron HCl (Zofran Inj) 4 mg IVP Q6 [facility] Last Admin: 06/06/18 12:22 Dose: 4 mg Physical Exam - Constitutional Appears: Well - Head Exam Head Exam: ATRAUMATIC, NORMAL INSPECTION, NORMOCEPHALIC - Eye Exam Eye Exam: EOMI, Normal appearance, PERRL Pupil Exam: NORMAL ACCOMODATION, PERRL - ENT Exam ENT Exam: Mucous Membranes Moist, Normal Exam - Neck Exam Neck exam: Positive for: Normal Inspection - Respiratory Exam Respiratory Exam: Clear to Auscultation Bilateral, NORMAL BREATHING PATTERN - Cardiovascular Exam Cardiovascular Exam: REGULAR RHYTHM - GI/Abdominal Exam GI & Abdominal Exam: Normal Bowel Sounds, Soft. absent: Tenderness - Extremities Exam Extremities exam: Positive for: normal inspection - Back Exam Back exam: NORMAL INSPECTION - Neurological Exam Neurological exam: Alert, CN II-XII Intact, Normal Gait, Oriented x3, Reflexes Normal - Psychiatric Exam Psychiatric exam: Normal Affect, Normal Mood - Skin Skin Exam: Dry, Intact, Normal Color, Warm Results - Vital Signs Recent Vital Signs: Last Vital Signs Temp 98.6 F 06/06/18 12:00 Pulse 120 H 06/06/18 12:57 Resp 16 06/06/18 12:00 BP 182/96 H 06/06/18 12:57 Pulse Ox 99 06/06/18 12:00 - Labs Result Diagrams: 06/06/18 04:59 06/06/18 04:59 Labs: Laboratory Results - last 24 hr 06/05/18 06/05/18 06/05/18 21:15 21:15 21:15 WBC 28.0 H D RBC 5.33 Hgb 13.5 Hct 41.3 MCV 77.4 L D MCH 25.4 L MCHC 32.8 L RDW 13.3 Plt Count 320 D MPV 9.8 Neut % (Auto) 93.1 H Lymph % (Auto) 3.7 L Rhea % (Auto) 2.9 Eos % (Auto) 0.0 Baso % (Auto) 0.3 Neut # (Auto) 26.0 H Lymph # (Auto) 1.0 Rhea # (Auto) 0.8 Eos # (Auto) 0.0 Baso # (Auto) 0.1 Neutrophils % (Manual) 91 H Lymphocytes % (Manual) 7 L Monocytes % (Manual) 2 Hypersegmented Polys Present Platelet Estimate Normal Large Platelets Present Hypochromasia (manual) Slight Anisocytosis (manual) Slight Macrocytosis (manual) Slight Tear Drop Cells Slight Ovalocytes Moderate PT INR APTT pO2 VBG pH VBG pCO2 VBG HCO3 VBG Total CO2 VBG O2 Sat (Calc) VBG Base Excess VBG Potassium Glucose Lactate FiO2 Crit Value Called To Crit Value Called By Crit Value Read Back Blood Gas Notified Time Sodium 138 Potassium 3.1 L Chloride 92 L Carbon Dioxide 14 L Anion Gap 35 H BUN 104 H* D Creatinine 7.5 H* D Est GFR ( Amer) 9 Est GFR (Non-Af Amer) 8 POC Glucose (mg/dL) Random Glucose 375 H Calcium 10.2 Phosphorus 7.5 H Magnesium 2.1 Total Bilirubin 0.7 AST 22 ALT 12 L D Alkaline Phosphatase 152 H D Troponin I 0.1330 H* Total Protein 10.5 H Albumin 5.2 H D Globulin 5.3 H Albumin/Globulin Ratio 1.0 Venous Blood Potassium Stool Occult Blood Alcohol, Quantitative < 10 Blood Type O NEGATIVE Antibody Screen Negative BBK History Checked Patient has bt 06/05/18 06/05/18 06/06/18 21:15 21:30 00:21 WBC RBC Hgb Hct MCV MCH MCHC RDW Plt Count MPV Neut % (Auto) Lymph % (Auto) Rhea % (Auto) Eos % (Auto) Baso % (Auto) Neut # (Auto) Lymph # (Auto) Rhea # (Auto) Eos # (Auto) Baso # (Auto) Neutrophils % (Manual) Lymphocytes % (Manual) Monocytes % (Manual) Hypersegmented Polys Platelet Estimate Large Platelets Hypochromasia (manual) Anisocytosis (manual) Macrocytosis (manual) Tear Drop Cells Ovalocytes PT 12.5 INR 1.1 APTT 33.3 pO2 42 64 H VBG pH 7.34 7.36 VBG pCO2 37 L 40 VBG HCO3 20.2 22.7 VBG Total CO2 21.1 L 23.8 VBG O2 Sat (Calc) 81.2 H 95.3 H VBG Base Excess -5.2 L -2.7 L VBG Potassium 3.5 L 3.1 L Glucose 391 H 333 H Lactate 4.9 H* 2.8 H FiO2 21.0 21.0 Crit Value Called To Dr bacilio berry Crit Value Called By Rt Crit Value Read Back Y Blood Gas Notified Time 2 Sodium 135.0 137.0 Potassium Chloride 91.0 L 95.0 L Carbon Dioxide Anion Gap BUN Creatinine Est GFR ( Amer) Est GFR (Non-Af Amer) POC Glucose (mg/dL) Random Glucose Calcium Phosphorus Magnesium Total Bilirubin AST ALT Alkaline Phosphatase Troponin I Total Protein Albumin Globulin Albumin/Globulin Ratio Venous Blood Potassium 3.5 L 3.1 L Stool Occult Blood Alcohol, Quantitative Blood Type Antibody Screen BBK History Checked 06/06/18 06/06/18 06/06/18 01:03 04:59 04:59 WBC 20.4 H RBC 4.93 Hgb 12.5 Hct 38.0 MCV 77.1 L MCH 25.4 L MCHC 32.9 L RDW 13.2 Plt Count 261 MPV Neut % (Auto) Lymph % (Auto) Rhea % (Auto) Eos % (Auto) Baso % (Auto) Neut # (Auto) Lymph # (Auto) Rhea # (Auto) Eos # (Auto) Baso # (Auto) Neutrophils % (Manual) Lymphocytes % (Manual) Monocytes % (Manual) Hypersegmented Polys Platelet Estimate Large Platelets Hypochromasia (manual) Anisocytosis (manual) Macrocytosis (manual) Tear Drop Cells Ovalocytes PT INR APTT pO2 VBG pH VBG pCO2 VBG HCO3 VBG Total CO2 VBG O2 Sat (Calc) VBG Base Excess VBG Potassium Glucose Lactate FiO2 Crit Value Called To Crit Value Called By Crit Value Read Back Blood Gas Notified Time Sodium 140 Potassium 3.6 Chloride 97 L Carbon Dioxide 18 L Anion Gap 29 H BUN 109 H* Creatinine 7.8 H* Est GFR ( Amer) 9 Est GFR (Non-Af Amer) 7 POC Glucose (mg/dL) Random Glucose 297 H Calcium 9.5 Phosphorus Magnesium Total Bilirubin AST ALT Alkaline Phosphatase Troponin I 0.2870 H* Total Protein Albumin Globulin Albumin/Globulin Ratio Venous Blood Potassium Stool Occult Blood Positive H Alcohol, Quantitative Blood Type Antibody Screen BBK History Checked 06/06/18 06/06/18 06:07 11:05 WBC RBC Hgb Hct MCV MCH MCHC RDW Plt Count MPV Neut % (Auto) Lymph % (Auto) Rhea % (Auto) Eos % (Auto) Baso % (Auto) Neut # (Auto) Lymph # (Auto) Rhea # (Auto) Eos # (Auto) Baso # (Auto) Neutrophils % (Manual) Lymphocytes % (Manual) Monocytes % (Manual) Hypersegmented Polys Platelet Estimate Large Platelets Hypochromasia (manual) Anisocytosis (manual) Macrocytosis (manual) Tear Drop Cells Ovalocytes PT INR APTT pO2 VBG pH VBG pCO2 VBG HCO3 VBG Total CO2 VBG O2 Sat (Calc) VBG Base Excess VBG Potassium Glucose Lactate FiO2 Crit Value Called To Crit Value Called By Crit Value Read Back Blood Gas Notified Time Sodium Potassium Chloride Carbon Dioxide Anion Gap BUN Creatinine Est GFR ( Amer) Est GFR (Non-Af Amer) POC Glucose (mg/dL) 290 H 222 H Random Glucose Calcium Phosphorus Magnesium Total Bilirubin AST ALT Alkaline Phosphatase Troponin I Total Protein Albumin Globulin Albumin/Globulin Ratio Venous Blood Potassium Stool Occult Blood Alcohol, Quantitative Blood Type Antibody Screen BBK History Checked
--- NOTE | 2018-06-06 13:01 | CP.PCM.CON ---
History of Present Illness - History of Present Illness History of Present Illness: This patient whole is 47 years of age male known to me previously was chronic kidney disease stage V that to is not on dialysis. Patient had a previously several months ago AV fistula in the left upper arm which apparently has not been working. Patient apparently did not have follow-up since last was discharged he did not come to see the nephrology follow-up. And he presented today to the emergency room complaining of nausea and was reported also vomited some dark blood perhaps. Patient complain of poor appetite as well and some abdominal pain. WBC 28.0, trend down to 24.0, Hgb 13.5, trend to 12.5, MCV 77 Coag: PT 12.5 INR 1.1 APTT 33.3 Initial lactate 4.9; repeat 2.8 CMP: BUN/Cr 104/7.5 Random glucose 375 Elevated troponin x2 EKG - sinus tachycardia, nonspecific changes GI consult Cardio consult PMHx: hypertension, CKD/ESRD (not on dialysis), DM2, hyperlipidemia, prior CVA , anemia Surg Hx: RLE partial foot amputation Soc Hx: denies x3 Fam Hx: pt does not know Allergies: none Review of Systems - Constitutional Constitutional: Anorexia, Malaise. absent: Chills - Cardiovascular Cardiovascular: Dyspnea on Exertion. absent: Acrocyanosis, Chest Pain - Respiratory Respiratory: Chest Congestion. absent: Cough, Hemoptysis - Gastrointestinal Gastrointestinal: Abdominal Pain, Bloating, Coffee Ground Emesis. absent: Diarrhea - Genitourinary Genitourinary: Nocturia - Musculoskeletal Musculoskeletal: Muscle Weakness - Neurological Neurological: Dizziness. absent: Headaches, Paresthesias - Endocrine Endocrine: Fatigue - Hematologic/Lymphatic Hematologic: absent: Easy Bleeding Past Patient History - Past Medical History & Family History Past Medical History?: Yes - Past Social History Smoking Status: Never Smoked Chewing Tobacco Use: No Alcohol: None Drugs: Denies - CARDIAC Hx Cardiac Disorders: Yes - PULMONARY Hx Chronic Obstructive Pulmonary Disease (COPD): No - NEUROLOGICAL Hx Neurological Disorder: No - HEENT Hx HEENT Problems: No - RENAL Hx Chronic Kidney Disease: Yes (ESRD pending HD) - ENDOCRINE/METABOLIC Hx Endocrine Disorders: Yes Hx Diabetes Mellitus Type 2: Yes - HEMATOLOGICAL/ONCOLOGICAL Hx Anemia: Yes Hx Human Immunodeficiency Virus (HIV): No - INTEGUMENTARY Hx Dermatological Problems: No - MUSCULOSKELETAL/RHEUMATOLOGICAL Hx Arthritis: No Hx Rheumatoid Arthritis: No - GASTROINTESTINAL Hx Gastrointestinal Disorders: Yes Hx Nausea: Yes Hx Vomiting: Yes - GENITOURINARY/GYNECOLOGICAL Hx Genitourinary Disorders: No - PSYCHIATRIC Hx Psychophysiologic Disorder: No Hx Substance Use: No - SURGICAL HISTORY Hx Surgeries: Yes Hx Amputation: Yes (tma right foot) Other/Comment: left suboccipital craniotomy - ANESTHESIA Hx Anesthesia: Yes Hx Anesthesia Reactions: No Hx Malignant Hyperthermia: No Meds Allergies/Adverse Reactions: Allergies Allergy/AdvReac Type Severity Reaction Status Date / Time Penicillins Allergy RASH Verified 12/13/17 20:49 - Medications Medications: Current Medications Amlodipine Besylate (Norvasc) 10 mg PO DAILY [facility] Last Admin: 06/06/18 11:09 Dose: 10 mg Atenolol (Tenormin) 50 mg PO DAILY [facility] Last Admin: 06/06/18 12:57 Dose: 50 mg Calcium Acetate (Phoslo) 667 mg PO WM@0900,1300,1700 [facility] Last Admin: 06/06/18 12:49 Dose: 667 mg Clonidine HCl (Catapres) 0.3 mg PO TID [facility] Last Admin: 06/06/18 12:47 Dose: 0.3 mg Gabapentin (Neurontin) 100 mg PO TID [facility] Last Admin: 06/06/18 12:49 Dose: 100 mg Hydralazine HCl (Apresoline) 100 mg PO Q8 [facility] Last Admin: 06/06/18 08:52 Dose: 100 mg Pantoprazole Sodium 40 mg/ (Sodium Chloride) 100 mls @ 20 mls/hr IVPB Q5H [facility] PRN Reason: 8 MG/HR Last Admin: 06/06/18 12:52 Dose: 20 mls/hr Sodium Chloride (Sodium Chloride 0.9%) 1,000 mls @ 175 mls/hr IV .Q5H43M [facility] Stop: 06/07/18 09:48 Last Admin: 06/06/18 12:56 Dose: 175 mls/hr Insulin Human Lispro (Humalog) 0 units SC Q6H [facility] PRN Reason: Protocol Last Admin: 06/06/18 11:37 Dose: 2 u Metoclopramide HCl (Reglan) 10 mg IVP Q6 PRN PRN Reason: Nausea/Vomiting Last Admin: 06/06/18 06:22 Dose: 10 mg Nifedipine (Procardia Xl) 30 mg PO DAILY [facility] Last Admin: 06/06/18 11:10 Dose: 30 mg Ondansetron HCl (Zofran Inj) 4 mg IVP Q6H PRN PRN Reason: Nausea/Vomiting Last Admin: 06/06/18 09:01 Dose: 4 mg Ondansetron HCl (Zofran Inj) 4 mg IVP Q6 [facility] Last Admin: 06/06/18 12:22 Dose: 4 mg Physical Exam - Constitutional Appears: No Acute Distress - Eye Exam Eye Exam: Conjunctival injection - ENT Exam ENT Exam: Mucous Membranes Moist - Neck Exam Neck exam: Negative for: Lymphadenopathy - Respiratory Exam Respiratory Exam: NORMAL BREATHING PATTERN. absent: Rales - Cardiovascular Exam Cardiovascular Exam: REGULAR RHYTHM. absent: Gallop - GI/Abdominal Exam GI & Abdominal Exam: Guarding, Normal Bowel Sounds - Extremities Exam Extremities exam: Negative for: calf tenderness - Back Exam Back exam: absent: CVA tenderness (L), CVA tenderness (R) - Neurological Exam Neurological exam: Alert - Psychiatric Exam Psychiatric exam: Agitated Results - Vital Signs Recent Vital Signs: Last Vital Signs Temp 98.6 F 06/06/18 12:00 Pulse 120 H 06/06/18 12:57 Resp 16 06/06/18 12:00 BP 182/96 H 06/06/18 12:57 Pulse Ox 99 06/06/18 12:00 - Labs Result Diagrams: 06/06/18 04:59 06/06/18 04:59 Labs: Laboratory Results - last 24 hr 06/05/18 06/05/18 06/05/18 21:15 21:15 21:15 WBC 28.0 H D RBC 5.33 Hgb 13.5 Hct 41.3 MCV 77.4 L D MCH 25.4 L MCHC 32.8 L RDW 13.3 Plt Count 320 D MPV 9.8 Neut % (Auto) 93.1 H Lymph % (Auto) 3.7 L Lake % (Auto) 2.9 Eos % (Auto) 0.0 Baso % (Auto) 0.3 Neut # (Auto) 26.0 H Lymph # (Auto) 1.0 Lake # (Auto) 0.8 Eos # (Auto) 0.0 Baso # (Auto) 0.1 Neutrophils % (Manual) 91 H Lymphocytes % (Manual) 7 L Monocytes % (Manual) 2 Hypersegmented Polys Present Platelet Estimate Normal Large Platelets Present Hypochromasia (manual) Slight Anisocytosis (manual) Slight Macrocytosis (manual) Slight Tear Drop Cells Slight Ovalocytes Moderate PT INR APTT pO2 VBG pH VBG pCO2 VBG HCO3 VBG Total CO2 VBG O2 Sat (Calc) VBG Base Excess VBG Potassium Glucose Lactate FiO2 Crit Value Called To Crit Value Called By Crit Value Read Back Blood Gas Notified Time Sodium 138 Potassium 3.1 L Chloride 92 L Carbon Dioxide 14 L Anion Gap 35 H BUN 104 H* D Creatinine 7.5 H* D Est GFR ( Amer) 9 Est GFR (Non-Af Amer) 8 POC Glucose (mg/dL) Random Glucose 375 H Calcium 10.2 Phosphorus 7.5 H Magnesium 2.1 Total Bilirubin 0.7 AST 22 ALT 12 L D Alkaline Phosphatase 152 H D Troponin I 0.1330 H* Total Protein 10.5 H Albumin 5.2 H D Globulin 5.3 H Albumin/Globulin Ratio 1.0 Venous Blood Potassium Stool Occult Blood Alcohol, Quantitative < 10 Blood Type O NEGATIVE Antibody Screen Negative BBK History Checked Patient has bt 06/05/18 06/05/18 06/06/18 21:15 21:30 00:21 WBC RBC Hgb Hct MCV MCH MCHC RDW Plt Count MPV Neut % (Auto) Lymph % (Auto) Lake % (Auto) Eos % (Auto) Baso % (Auto) Neut # (Auto) Lymph # (Auto) Lake # (Auto) Eos # (Auto) Baso # (Auto) Neutrophils % (Manual) Lymphocytes % (Manual) Monocytes % (Manual) Hypersegmented Polys Platelet Estimate Large Platelets Hypochromasia (manual) Anisocytosis (manual) Macrocytosis (manual) Tear Drop Cells Ovalocytes PT 12.5 INR 1.1 APTT 33.3 pO2 42 64 H VBG pH 7.34 7.36 VBG pCO2 37 L 40 VBG HCO3 20.2 22.7 VBG Total CO2 21.1 L 23.8 VBG O2 Sat (Calc) 81.2 H 95.3 H VBG Base Excess -5.2 L -2.7 L VBG Potassium 3.5 L 3.1 L Glucose 391 H 333 H Lactate 4.9 H* 2.8 H FiO2 21.0 21.0 Crit Value Called To Dr bacilio berry Crit Value Called By Rt Crit Value Read Back Y Blood Gas Notified Time 2158 Sodium 135.0 137.0 Potassium Chloride 91.0 L 95.0 L Carbon Dioxide Anion Gap BUN Creatinine Est GFR ( Amer) Est GFR (Non-Af Amer) POC Glucose (mg/dL) Random Glucose Calcium Phosphorus Magnesium Total Bilirubin AST ALT Alkaline Phosphatase Troponin I Total Protein Albumin Globulin Albumin/Globulin Ratio Venous Blood Potassium 3.5 L 3.1 L Stool Occult Blood Alcohol, Quantitative Blood Type Antibody Screen BBK History Checked 06/06/18 06/06/18 06/06/18 01:03 04:59 04:59 WBC 20.4 H RBC 4.93 Hgb 12.5 Hct 38.0 MCV 77.1 L MCH 25.4 L MCHC 32.9 L RDW 13.2 Plt Count 261 MPV Neut % (Auto) Lymph % (Auto) Lake % (Auto) Eos % (Auto) Baso % (Auto) Neut # (Auto) Lymph # (Auto) Lake # (Auto) Eos # (Auto) Baso # (Auto) Neutrophils % (Manual) Lymphocytes % (Manual) Monocytes % (Manual) Hypersegmented Polys Platelet Estimate Large Platelets Hypochromasia (manual) Anisocytosis (manual) Macrocytosis (manual) Tear Drop Cells Ovalocytes PT INR APTT pO2 VBG pH VBG pCO2 VBG HCO3 VBG Total CO2 VBG O2 Sat (Calc) VBG Base Excess VBG Potassium Glucose Lactate FiO2 Crit Value Called To Crit Value Called By Crit Value Read Back Blood Gas Notified Time Sodium 140 Potassium 3.6 Chloride 97 L Carbon Dioxide 18 L Anion Gap 29 H BUN 109 H* Creatinine 7.8 H* Est GFR ( Amer) 9 Est GFR (Non-Af Amer) 7 POC Glucose (mg/dL) Random Glucose 297 H Calcium 9.5 Phosphorus Magnesium Total Bilirubin AST ALT Alkaline Phosphatase Troponin I 0.2870 H* Total Protein Albumin Globulin Albumin/Globulin Ratio Venous Blood Potassium Stool Occult Blood Positive H Alcohol, Quantitative Blood Type Antibody Screen BBK History Checked 06/06/18 06/06/18 06:07 11:05 WBC RBC Hgb Hct MCV MCH MCHC RDW Plt Count MPV Neut % (Auto) Lymph % (Auto) Lake % (Auto) Eos % (Auto) Baso % (Auto) Neut # (Auto) Lymph # (Auto) Lake # (Auto) Eos # (Auto) Baso # (Auto) Neutrophils % (Manual) Lymphocytes % (Manual) Monocytes % (Manual) Hypersegmented Polys Platelet Estimate Large Platelets Hypochromasia (manual) Anisocytosis (manual) Macrocytosis (manual) Tear Drop Cells Ovalocytes PT INR APTT pO2 VBG pH VBG pCO2 VBG HCO3 VBG Total CO2 VBG O2 Sat (Calc) VBG Base Excess VBG Potassium Glucose Lactate FiO2 Crit Value Called To Crit Value Called By Crit Value Read Back Blood Gas Notified Time Sodium Potassium Chloride Carbon Dioxide Anion Gap BUN Creatinine Est GFR ( Amer) Est GFR (Non-Af Amer) POC Glucose (mg/dL) 290 H 222 H Random Glucose Calcium Phosphorus Magnesium Total Bilirubin AST ALT Alkaline Phosphatase Troponin I Total Protein Albumin Globulin Albumin/Globulin Ratio Venous Blood Potassium Stool Occult Blood Alcohol, Quantitative Blood Type Antibody Screen BBK History Checked Assessment & Plan (1) Chronic kidney disease, stage V Assessment and Plan: patient appears to have a chronic kidney disease stage V and he is very much symptomatic including nausea vomiting abdominal pain and discomfort. Kidney function has been worsening since the last admission and has been worsening since he was admitted yesterday last night B UN and creatinine continue to rise The plan we will proceed with hemodialysis although the patient has left arm AV fistula but no bruit and nonfunctioning We will proceed to put temporarily dialysis catheter for now and then at the later days will be switched to permacath. Other medical problem patient is diabetic was diabetic kidney disease Hypertension Hyperphosphatemia Secondary hyperparathyroidism Anemia Patient need better diabetic control and glycemic control Consent was taken from the patient for dialysis Discussed with the security manager and the nurse in the floor Status: Acute (2) GI bleed Status: Acute (3) Gastroparesis Status: Acute
--- NOTE | 2018-06-06 13:57 | RAD ---
HISTORY: vomit COMPARISON: No prior. FINDINGS: BOWEL: Limited evaluation due to exclusion of the right eunice abdomen. No obstruction. BONES: Normal. OTHER FINDINGS: None. IMPRESSION: No obstruction.
--- NOTE | 2018-06-06 14:50 | PCM.SURG1 ---
Surgeon's Initial Post Op Note - Surgeon's Notes Surgeon: Terrence Jiménez MD Aerial Survey Technician: NONE Type of Anesthesia: Local Pre-Operative Diagnosis: Renal failure Operative Findings: US showed patent right IJV Post-Operative Diagnosis: Renal failure Operation Performed: Non tunneled HD catheter placement right IJV Specimen/Specimens Removed: NONE Estimated Blood Loss: EBL {In ML}: 2 Blood Products Given: N/A Drains Used: No Drains Post-Op Condition: Fair Date of Surgery/Procedure: 06/06/18 Time of Surgery/Procedure: 14:45
[2018-06-06 20:30] LABS: HEPATITIS B SURFACE AG Negative (NEGATIVE)
[2018-06-06 20:36] LABS: HEPATITIS A IGM NEGATIVE (NEGATIVE); HEPATITIS B CORE AB NEGATIVE (NEGATIVE)
[2018-06-06 20:47] LABS: HEPATITIS C ANTIBODY NEGATIVE (NEGATIVE)
[2018-06-07 05:28] LABS: HEMOGLOBIN 10.8 g/dL (12.0-18.0); MEAN CELL VOLUME 78.1 fl (80.0-94.0); MEAN CORPUSCULAR HEMOGLOBIN 25.9 pg (27.0-31.0); MEAN CORPUSCULAR HGB CONC 33.1 g/dL (33.0-37.0); RBC 4.18 Mil/uL (4.40-5.90); RED CELL DISTRIBUTION WIDTH 13.2 % (11.5-14.5)
[2018-06-07 05:45] LABS: ALB/GLOB RATIO 1.1 (1.0-2.1); ALBUMIN 3.9 g/dL (3.5-5.0); CALCIUM 9.2 mg/dL (8.4-10.2)
[2018-06-07] MEDS: Sodium Chloride 0.9% 1,000 ML IV SCH ×2 (06:14→11:34)
[2018-06-07] MEDS: Insulin Lispro (humaLOG) 100 Units/ml Inj SC SCH ×3 (06:15→17:13)
[2018-06-07] MEDS: NIFEdipine 30 mg ER Tab PO SCH (08:28)
--- NOTE | 2018-06-07 09:26 | CP.CCUPN ---
CCU Subjective - Physician Review Events Since Last Encounter (Free Text): 06/07/18 09:25 alert and awake, no sob, no pain CCU Objective - Vital Signs / Intake & Output Vital Signs (Last 4 hours): Vital Signs Temp Pulse Resp BP Pulse Ox 06/07/18 08:29 68 164/64 H 06/07/18 08:28 68 164/64 H 06/07/18 08:27 68 164/64 H 06/07/18 08:26 67 164/64 H 06/07/18 08:00 98.7 F 78 7 L 164/64 H 97 06/07/18 07:16 17 06/07/18 06:00 65 12 137/57 L 100 Intake and Output (Last 8hrs): Intake & Output 06/06/18 06/07/18 06/07/18 22:59 06:59 14:59 Intake Total 1350 800 242 Output Total 500 450 500 Balance 850 350 -258 Intake: IV 1350 700 242 Oral 100 Output: Urine 450 500 Urine, Voided 450 500 Stool 0 Ultrafiltrate 500 Other: # Voids Urine, Voided 3 - Physical Exam Narrative Physical Exam (Free Text): 06/07/18 09:25 P/E Neck: No JVD Lungs: No ronchi/crackles Abdomen: Soft, non-tender Ext; No edema heart: No gallop Extroacular Muscles: Positive for: EOMI Neck: Positive for: Normal Range of Motion Respiratory/Chest: Positive for: Clear to Auscultation, Good Air Exchange. Negative for: Respiratory Distress, Wheezes Cardiovascular: Positive for: Regular Rate and Rhythm. Negative for: Murmurs Abdomen: Positive for: Tenderness (epigastric), Distention, Normal Bowel Sounds Neurological: Positive for: Speech Normal Psychiatric: Positive for: Alert, Oriented x 3, Normal Insight, Normal Concentration - Medications Active Medications: Active Medications Generic Name Dose Route Start Last Admin Trade Name Freq PRN Reason Stop Dose Admin Amlodipine Besylate 10 mg 06/06/18 09:00 06/07/18 08:29 Norvasc PO 10 mg DAILY [facility] Administration Atenolol 50 mg 06/06/18 09:00 06/07/18 08:29 Tenormin PO 50 mg DAILY [facility] Administration Calcium Acetate 667 mg 06/06/18 09:00 06/07/18 08:28 Phoslo PO 667 mg WM@0900,1300,1700 [facility] Administration Clonidine HCl 0.3 mg 06/06/18 09:00 06/07/18 08:27 Catapres PO 0.3 mg TID [facility] Administration Gabapentin 100 mg 06/06/18 09:00 06/07/18 08:27 Neurontin PO 100 mg TID [facility] Administration Hydralazine HCl 100 mg 06/06/18 01:00 06/07/18 08:26 Apresoline PO 100 mg Q8 [facility] Administration Sodium Chloride 1,000 mls @ 175 mls/hr 06/06/18 10:00 06/07/18 06:14 Sodium Chloride 0.9% IV 06/07/18 09:48 175 mls/hr .[id number] [facility] Administration Insulin Human Lispro 0 units 06/05/18 23:15 06/07/18 06:15 Humalog SC Not Given Q6H [facility] Protocol Metoclopramide HCl 10 mg 06/05/18 23:10 06/06/18 13:07 Reglan IVP 10 mg Q6 PRN Administration Nausea/Vomiting Nifedipine 30 mg 06/06/18 09:00 06/07/18 08:28 Procardia Xl PO 30 mg DAILY [facility] Administration Ondansetron HCl 4 mg 06/05/18 23:07 06/07/18 08:33 Zofran Inj IVP 4 mg Q6H PRN Administration Nausea/Vomiting Ondansetron HCl 4 mg 06/06/18 10:00 06/07/18 03:20 Zofran Inj IVP Not Given Q6 [facility] Pantoprazole Sodium 40 mg 06/06/18 21:00 06/07/18 08:32 Protonix Inj IVP 40 mg Q12 [facility] Administration - Patient Studies Lab Studies: Microbiology Studies 06/05/18 21:15 Blood Culture - Preliminary Blood NO GROWTH AFTER 24 HOURS 06/05/18 21:15 Blood Culture - Preliminary Blood NO GROWTH AFTER 24 HOURS Lab Studies 06/07/18 06/07/18 06/07/18 Range/Units 06:11 04:20 04:20 WBC 17.0 H (4.8-10.8) K/uL RBC 4.18 L (4.40-5.90) Mil/uL Hgb 10.8 L (12.0-18.0) g/dL Hct 32.7 L (35.0-51.0) % MCV 78.1 L (80.0-94.0) fl MCH 25.9 L (27.0-31.0) pg MCHC 33.1 (33.0-37.0) g/dL RDW 13.2 (11.5-14.5) % Plt Count 201 (130-400) K/uL Sodium 139 (132-148) mmol/l Potassium 3.1 L (3.6-5.0) MMOL/L Chloride 102 (98-107) mmol/L Carbon Dioxide 22 (22-30) mmol/L Anion Gap 18 (10-20) BUN 78 H (9-20) mg/dl Creatinine 5.2 H (0.8-1.5) mg/dl Est GFR ( Amer) 14 Est GFR (Non-Af Amer) 12 POC Glucose (mg/dL) 148 H (65-110) mg/dL Random Glucose 160 H (75-110) mg/dL Serum Osmolality (272-300) mosm/kg Calcium 9.2 (8.4-10.2) mg/dL Total Bilirubin 0.6 (0.2-1.3) mg/dl AST 21 (17-59) U/L ALT 19 L D (21-72) U/L Alkaline Phosphatase 87 (38-126) U/L Troponin I (0.00-0.120) ng/mL NT-Pro-B Natriuret Pep (0-450) pg/ml Total Protein 7.5 (6.3-8.2) G/DL Albumin 3.9 (3.5-5.0) g/dL Globulin 3.6 (2.2-3.9) gm/dL Albumin/Globulin Ratio 1.1 (1.0-2.1) Hepatitis A IgM Ab (NEGATIVE) Hep Bs Antigen (NEGATIVE) Hep B Core IgM Ab (NEGATIVE) Hepatitis C Antibody (NEGATIVE) 06/06/18 06/06/18 06/06/18 Range/Units 21:41 16:35 16:16 WBC (4.8-10.8) K/uL RBC (4.40-5.90) Mil/uL Hgb (12.0-18.0) g/dL Hct (35.0-51.0) % MCV (80.0-94.0) fl MCH (27.0-31.0) pg MCHC (33.0-37.0) g/dL RDW (11.5-14.5) % Plt Count (130-400) K/uL Sodium (132-148) mmol/l Potassium (3.6-5.0) MMOL/L Chloride (98-107) mmol/L Carbon Dioxide (22-30) mmol/L Anion Gap (10-20) BUN (9-20) mg/dl Creatinine (0.8-1.5) mg/dl Est GFR ( Amer) Est GFR (Non-Af Amer) POC Glucose (mg/dL) 166 H 199 H (65-110) mg/dL Random Glucose (75-110) mg/dL Serum Osmolality (272-300) mosm/kg Calcium (8.4-10.2) mg/dL Total Bilirubin (0.2-1.3) mg/dl AST (17-59) U/L ALT (21-72) U/L Alkaline Phosphatase (38-126) U/L Troponin I (0.00-0.120) ng/mL NT-Pro-B Natriuret Pep (0-450) pg/ml Total Protein (6.3-8.2) G/DL Albumin (3.5-5.0) g/dL Globulin (2.2-3.9) gm/dL Albumin/Globulin Ratio (1.0-2.1) Hepatitis A IgM Ab Negative (NEGATIVE) Hep Bs Antigen Negative (NEGATIVE) Hep B Core IgM Ab Negative (NEGATIVE) Hepatitis C Antibody Negative (NEGATIVE) 06/06/18 06/06/18 06/06/18 Range/Units 13:27 12:14 12:14 WBC (4.8-10.8) K/uL RBC (4.40-5.90) Mil/uL Hgb (12.0-18.0) g/dL Hct (35.0-51.0) % MCV (80.0-94.0) fl MCH (27.0-31.0) pg MCHC (33.0-37.0) g/dL RDW (11.5-14.5) % Plt Count (130-400) K/uL Sodium (132-148) mmol/l Potassium (3.6-5.0) MMOL/L Chloride (98-107) mmol/L Carbon Dioxide (22-30) mmol/L Anion Gap (10-20) BUN (9-20) mg/dl Creatinine (0.8-1.5) mg/dl Est GFR ( Amer) Est GFR (Non-Af Amer) POC Glucose (mg/dL) (65-110) mg/dL Random Glucose (75-110) mg/dL Serum Osmolality 343 H (272-300) mosm/kg Calcium (8.4-10.2) mg/dL Total Bilirubin (0.2-1.3) mg/dl AST (17-59) U/L ALT (21-72) U/L Alkaline Phosphatase (38-126) U/L Troponin I 0.2920 H* (0.00-0.120) ng/mL NT-Pro-B Natriuret Pep 4430 H (0-450) pg/ml Total Protein (6.3-8.2) G/DL Albumin (3.5-5.0) g/dL Globulin (2.2-3.9) gm/dL Albumin/Globulin Ratio (1.0-2.1) Hepatitis A IgM Ab (NEGATIVE) Hep Bs Antigen (NEGATIVE) Hep B Core IgM Ab (NEGATIVE) Hepatitis C Antibody (NEGATIVE) 06/06/18 Range/Units 11:05 WBC (4.8-10.8) K/uL RBC (4.40-5.90) Mil/uL Hgb (12.0-18.0) g/dL Hct (35.0-51.0) % MCV (80.0-94.0) fl MCH (27.0-31.0) pg MCHC (33.0-37.0) g/dL RDW (11.5-14.5) % Plt Count (130-400) K/uL Sodium (132-148) mmol/l Potassium (3.6-5.0) MMOL/L Chloride (98-107) mmol/L Carbon Dioxide (22-30) mmol/L Anion Gap (10-20) BUN (9-20) mg/dl Creatinine (0.8-1.5) mg/dl Est GFR ( Amer) Est GFR (Non-Af Amer) POC Glucose (mg/dL) 222 H (65-110) mg/dL Random Glucose (75-110) mg/dL Serum Osmolality (272-300) mosm/kg Calcium (8.4-10.2) mg/dL Total Bilirubin (0.2-1.3) mg/dl AST (17-59) U/L ALT (21-72) U/L Alkaline Phosphatase (38-126) U/L Troponin I (0.00-0.120) ng/mL NT-Pro-B Natriuret Pep (0-450) pg/ml Total Protein (6.3-8.2) G/DL Albumin (3.5-5.0) g/dL Globulin (2.2-3.9) gm/dL Albumin/Globulin Ratio (1.0-2.1) Hepatitis A IgM Ab (NEGATIVE) Hep Bs Antigen (NEGATIVE) Hep B Core IgM Ab (NEGATIVE) Hepatitis C Antibody (NEGATIVE) Laboratory Results - last 24 hr 06/06/18 06/06/18 06/06/18 11:05 12:14 12:14 WBC RBC Hgb Hct MCV MCH MCHC RDW Plt Count Sodium Potassium Chloride Carbon Dioxide Anion Gap BUN Creatinine Est GFR ( Amer) Est GFR (Non-Af Amer) POC Glucose (mg/dL) 222 H Random Glucose Serum Osmolality 343 H Calcium Total Bilirubin AST ALT Alkaline Phosphatase Troponin I 0.2920 H* NT-Pro-B Natriuret Pep Total Protein Albumin Globulin Albumin/Globulin Ratio Hepatitis A IgM Ab Hep Bs Antigen Hep B Core IgM Ab Hepatitis C Antibody 06/06/18 06/06/18 06/06/18 13:27 16:16 16:35 WBC RBC Hgb Hct MCV MCH MCHC RDW Plt Count Sodium Potassium Chloride Carbon Dioxide Anion Gap BUN Creatinine Est GFR ( Amer) Est GFR (Non-Af Amer) POC Glucose (mg/dL) 199 H Random Glucose Serum Osmolality Calcium Total Bilirubin AST ALT Alkaline Phosphatase Troponin I NT-Pro-B Natriuret Pep 4430 H Total Protein Albumin Globulin Albumin/Globulin Ratio Hepatitis A IgM Ab Negative Hep Bs Antigen Negative Hep B Core IgM Ab Negative Hepatitis C Antibody Negative 06/06/18 06/07/18 06/07/18 21:41 04:20 04:20 WBC 17.0 H RBC 4.18 L Hgb 10.8 L Hct 32.7 L MCV 78.1 L MCH 25.9 L MCHC 33.1 RDW 13.2 Plt Count 201 Sodium 139 Potassium 3.1 L Chloride 102 Carbon Dioxide 22 Anion Gap 18 BUN 78 H Creatinine 5.2 H Est GFR ( Amer) 14 Est GFR (Non-Af Amer) 12 POC Glucose (mg/dL) 166 H Random Glucose 160 H Serum Osmolality Calcium 9.2 Total Bilirubin 0.6 AST 21 ALT 19 L D Alkaline Phosphatase 87 Troponin I NT-Pro-B Natriuret Pep Total Protein 7.5 Albumin 3.9 Globulin 3.6 Albumin/Globulin Ratio 1.1 Hepatitis A IgM Ab Hep Bs Antigen Hep B Core IgM Ab Hepatitis C Antibody 06/07/18 06:11 WBC RBC Hgb Hct MCV MCH MCHC RDW Plt Count Sodium Potassium Chloride Carbon Dioxide Anion Gap BUN Creatinine Est GFR ( Amer) Est GFR (Non-Af Amer) POC Glucose (mg/dL) 148 H Random Glucose Serum Osmolality Calcium Total Bilirubin AST ALT Alkaline Phosphatase Troponin I NT-Pro-B Natriuret Pep Total Protein Albumin Globulin Albumin/Globulin Ratio Hepatitis A IgM Ab Hep Bs Antigen Hep B Core IgM Ab Hepatitis C Antibody Fingerstick Blood Sugar Results: 148 Critical Care Progress Note - Nutrition Nutrition: Nutrition Category Date Time Status NPO Diet [DIET] Diets 06/05/18 Breakfast Active Assessment/Plan - Assessment and Plan (Free Text) Assessment: ESRD with uremic symptoms : Hd started by renal, HD today HTN Controlled Hypokalemia Mild, will be adjusted with dialysis today Anemia Due to ESRD, stable , Positive Troponin Was evaluated by networker, Positive TNI due to ESRD. Disposition Will evaluated after HD session today, if remained stable , will transfer to tele.
--- NOTE | 2018-06-07 13:02 | PN ---
DATE: 06/07/2018 SUBJECTIVE: The patient is seen and examined. Interim events noted. Consults noted and appreciated. The patient remains intact in intensive care unit. Manager Educational, Cardiology, Gastroenterology and Nephrology consult and intervention noted and appreciated. The patient feels much better, no complications dialysis. No chest pain. No shortness of breath. Nausea improved. PHYSICAL EXAMINATION: GENERAL: The patient is in no acute distress. VITAL SIGNS: Stable. HEART: S1 and S2, normal and regular. LUNGS: Good bilateral air exchange. ABDOMEN: Soft and nontender. EXTREMITIES: The patient is status post amputation. No edema. No calf swelling. No tenderness. No acute ischemia. ROVING TECHNICIAN: Exam is essentially unchanged. DIAGNOSTIC DATA: Available diagnostic data reviewed. ASSESSMENT AND PLAN: Overall, the patient's basically improved. Telemetry monitoring does not show significant arrhythmia. Plan as ordered. Joel Lake MD
[2018-06-07] MEDS: Multivitamin Vitamin B Complex (Nephro-Vite) Tab PO SCH (13:23)
--- NOTE | 2018-06-07 18:30 | CP.PCM.PN ---
Subjective - Date & Time of Evaluation Date of Evaluation: 06/07/18 Time of Evaluation: 18:28 - Subjective Subjective: Nephrology Consultation Note Assessment: Stable Diabetic chronic Kidney Disease (E11.22) Hypertensive Chronic Kidney Disease (I12.0) New onset End stage renal disease (N18.6) dependence on hemodialysis (Z99.2) via shiley Anemia (D64.9), Hyperphosphatemia (E83.39), Secondary Hyperparathyroidism (E21.1 ), HTN (I12.0) Hypokalemia Plan: Will plan for HD today as ordered. Continue with Nephrovite 1 tab/day. PRBC as needed for anemia. not on YURIY with dialysis as last Hb 10.8. check TSAT/ Ferritin Continue with phos binders, last phos level 7.5_ check Vit D and PTH. BP control with meds as ordered. Patient not on RAAS anthony hence start losartan Glycemic control, Dialysis consistent diet Further work up/management as per primary team Dose meds/antibiotics (if needed) for ESRD status. Avoid fleets enema/magnesium based laxatives. vascular surgery consult for permanent access as AVF and permacath SW consult for outpt HD placement with Dr Rodríguez Thanks for allowing me to participate in care of your patient. Will follow patient with you. Please call if any Qs. d/w team Dr Rigo Toro Office: [phone] Subjective: Noted events overnight. Patients feels okay. Denies chest pain, palpitation, shortness of breath, leg swelling. All other negative Physical Examination: General Appearance: Comfortable, in no acute respiratory distress, co-operative . Vitals reviewed and noted as below Head; Atraumatic, normocephalic ENT: no ulcers no thrush. Tongue is midline. Oropharynx: no rash or ulcers. EYES: Pupils are equal, round and reactive to light accommodation. Eye muscles and extraocular movement intact. Sclera is anicteric. Neck; supple no lymphadenopathy, no thyromegaly or bruit Lungs: Normal respiratory rate/effort. Breath sounds bilateral equal and clear Heart: Normal rate. s1s2 normal. No rub or gallop. Extremities: no edema. No varicose veins. Rt foot TMA Neurological: Patient is alert, awake and oriented to person, place and time. No focal deficit. Strength bilateral appropriate and equal Skin: Warm and dry. Normal turgor. No rash. Palpitation: Normal elasticity for age Abdomen: Abdomen is soft. Bowel sounds +. There is no abdominal tenderness, no guarding/rigidity or organomegaly Psych: normal insight and normal affect/mood MSK: no joint tenderness or swelling. Digits and nails normal, no deformity : kidney or bladder not palpable Access: [email or web address]. left AVF failed Labs/imaging reviewed. Past medical history, past surgical history, family history, social history, allergy reviewed and noted as below Family Hx: no hx of CKD. Non contributory Objective - Vital Signs/Intake and Output Vital Signs (last 24 hours): Temp Pulse Resp BP Pulse Ox 98.0 F 69 17 100/59 L 98 06/07/18 18:00 06/07/18 18:12 06/07/18 18:00 06/07/18 18:12 06/07/18 16:09 Intake and Output: 06/07/18 06/07/18 06:59 18:59 Intake Total 1150 1594 Output Total 450 1600 Balance 700 -6 - Medications Medications: Current Medications Amlodipine Besylate (Norvasc) 10 mg PO DAILY [facility] Last Admin: 06/07/18 08:29 Dose: 10 mg Atenolol (Tenormin) 25 mg PO DAILY [facility] Calcium Acetate (Phoslo) 667 mg PO WM@0900,1300,1700 [facility] Last Admin: 06/07/18 17:15 Dose: 667 mg Clonidine HCl (Catapres) 0.3 mg PO TID [facility] Last Admin: 06/07/18 17:12 Dose: Not Given Gabapentin (Neurontin) 100 mg PO TID [facility] Last Admin: 06/07/18 17:14 Dose: 100 mg Hydralazine HCl (Apresoline) 100 mg PO Q8 [facility] Last Admin: 06/07/18 17:12 Dose: Not Given Insulin Human Lispro (Humalog) 0 units SC Q6H [facility] PRN Reason: Protocol Last Admin: 06/07/18 17:13 Dose: 1 u Losartan Potassium (Cozaar) 50 mg PO QPM [facility] Last Admin: 06/07/18 18:12 Dose: Not Given Metoclopramide HCl (Reglan) 10 mg IVP Q6 PRN PRN Reason: Nausea/Vomiting Last Admin: 06/06/18 13:07 Dose: 10 mg Nifedipine (Procardia Xl) 30 mg PO DAILY [facility] Last Admin: 06/07/18 08:28 Dose: 30 mg Ondansetron HCl (Zofran Inj) 4 mg IVP Q6H PRN PRN Reason: Nausea/Vomiting Last Admin: 06/07/18 08:33 Dose: 4 mg Ondansetron HCl (Zofran Inj) 4 mg IVP Q6 [facility] Last Admin: 06/07/18 17:16 Dose: 4 mg Pantoprazole Sodium (Protonix Inj) 40 mg IVP Q12 [facility] Last Admin: 06/07/18 08:32 Dose: 40 mg Vitamin B Complex/Vit C/Folic Acid (Nephro-Elsa) 1 tab PO DAILY [facility] Last Admin: 06/07/18 13:23 Dose: 1 tab - Labs Labs: 06/07/18 04:20 06/07/18 04:20 PT 12.5 Seconds (9.8-13.1) 06/05/18 21:15 INR 1.1 (0.9-1.2) 06/05/18 21:15 APTT 33.3 Seconds (25.6-37.1) 06/05/18 21:15
[2018-06-08 05:51] LABS: HEMOGLOBIN 10.8 g/dL (12.0-18.0); MEAN CELL VOLUME 78.3 fl (80.0-94.0); MEAN CORPUSCULAR HEMOGLOBIN 25.6 pg (27.0-31.0); MEAN CORPUSCULAR HGB CONC 32.7 g/dL (33.0-37.0); RBC 4.23 Mil/uL (4.40-5.90); RED CELL DISTRIBUTION WIDTH 13.5 % (11.5-14.5); WHITE BLOOD COUNT 14.6 K/uL (4.8-10.8)
[2018-06-08 06:03] LABS: IRON 82 ug/dL (49-181)
[2018-06-08 06:12] LABS: % IRON SATURATION 36 % (20-55); TOTAL IRON BINDING CAPACITY 231 ug/dL (250-450)
[2018-06-08 06:14] LABS: ALB/GLOB RATIO 1.1 (1.0-2.1); ALBUMIN 3.8 g/dL (3.5-5.0); CALCIUM 8.8 mg/dL (8.4-10.2)
[2018-06-08] MEDS: Insulin Lispro (humaLOG) 100 Units/ml Inj SC SCH ×4 (08:58→22:21)
[2018-06-08] MEDS: Multivitamin Vitamin B Complex (Nephro-Vite) Tab PO SCH (08:58)
[2018-06-08] MEDS: NIFEdipine 30 mg ER Tab PO SCH (09:00)
--- NOTE | 2018-06-08 12:51 | PN ---
DATE: 06/08/2018 SUBJECTIVE: The patient is seen and examined. Interim events noted. Consults noted and appreciated. The patient is now in transitional care unit on telemetry monitoring. Feels much better. No chest pain. No shortness of breath. No abdominal pain. No nausea or vomiting. No bleeding. PHYSICAL EXAMINATION: GENERAL: The patient is in no acute distress. VITAL SIGNS: Stable. HEART: S1 and S2, normal and regular. LUNGS: Good bilateral air exchange. ABDOMEN: Soft, nontender. EXTREMITIES: The patient is status post amputation. No edema. No calf swelling. No tenderness. No acute ischemia. ENGRAVER HAND HARD METALS: Exam is essentially unchanged. DIAGNOSTIC DATA: Available diagnostic data reviewed. ASSESSMENT AND PLAN: Overall, the patient's general medical condition is stable. Plan as ordered. Joel Lake MD
--- NOTE | 2018-06-08 17:14 | CP.PCM.PN ---
Subjective - Date & Time of Evaluation Date of Evaluation: 06/08/18 Time of Evaluation: 17:12 - Subjective Subjective: Nephrology Progress Note Assessment: Stable Diabetic chronic Kidney Disease (E11.22) Hypertensive Chronic Kidney Disease (I12.0) New onset End stage renal disease (N18.6) dependence on hemodialysis (Z99.2) via shiley Anemia (D64.9), Hyperphosphatemia (E83.39), Secondary Hyperparathyroidism (E21.1 ), HTN (I12.0) Hypokalemia Plan: Will plan for HD tomorrow as ordered. Continue with Nephrovite 1 tab/day. PRBC as needed for anemia. not on YURIY with dialysis as last Hb 10.8. check TSAT 36%/Ferritin 388. started IV iron Continue with phos binders, last phos level 3.5 check Vit D and PTH. started weekly Vit D BP control with meds as ordered. Patient not on RAAS anthony hence start losartan. stop nifedipine as also on norvasc. can try to taper clonidine Glycemic control, Dialysis consistent diet Further work up/management as per primary team Dose meds/antibiotics (if needed) for ESRD status. Avoid fleets enema/magnesium based laxatives. vascular surgery consult for permanent access as AVF and permacath SW consult for outpt HD placement with Dr Douglas Rodríguez Thanks for allowing me to participate in care of your patient. Will follow patient with you. Please call if any Qs. Dr Rigo Toro Office: [phone] Subjective: Noted events overnight. Patients feels okay. Denies chest pain, palpitation, shortness of breath, leg swelling. All other negative Physical Examination: General Appearance: Comfortable, in no acute respiratory distress, co-operative . Vitals reviewed and noted as below Head; Atraumatic, normocephalic ENT: no ulcers no thrush. Tongue is midline. Oropharynx: no rash or ulcers. EYES: Pupils are equal, round and reactive to light accommodation. Eye muscles and extraocular movement intact. Sclera is anicteric. Neck; supple no lymphadenopathy, no thyromegaly or bruit Lungs: Normal respiratory rate/effort. Breath sounds bilateral equal and clear Heart: Normal rate. s1s2 normal. No rub or gallop. Extremities: no edema. No varicose veins. Rt foot TMA Neurological: Patient is alert, awake and oriented to person, place and time. No focal deficit. Strength bilateral appropriate and equal Skin: Warm and dry. Normal turgor. No rash. Palpitation: Normal elasticity for age Abdomen: Abdomen is soft. Bowel sounds +. There is no abdominal tenderness, no guarding/rigidity or organomegaly Psych: normal insight and normal affect/mood MSK: no joint tenderness or swelling. Digits and nails normal, no deformity : kidney or bladder not palpable Access: shiley. left AVF failed Labs/imaging reviewed. Past medical history, past surgical history, family history, social history, allergy reviewed and noted as below Family Hx: no hx of CKD. Non contributory Objective - Vital Signs/Intake and Output Vital Signs (last 24 hours): Temp Pulse Resp BP Pulse Ox 99.0 F 64 17 125/75 99 06/08/18 16:09 06/08/18 16:09 06/08/18 16:09 06/08/18 16:09 06/08/18 16:09 Intake and Output: 06/08/18 06/08/18 06:59 18:59 Intake Total 0 Balance 0 - Medications Medications: Current Medications Amlodipine Besylate (Norvasc) 10 mg PO DAILY [facility] Last Admin: 06/08/18 08:59 Dose: 10 mg Atenolol (Tenormin) 25 mg PO DAILY [facility] Last Admin: 06/08/18 09:03 Dose: 25 mg Calcium Acetate (Phoslo) 667 mg PO WM@0900,1300,1700 [facility] Last Admin: 06/08/18 13:37 Dose: 667 mg Clonidine HCl (Catapres) 0.3 mg PO TID [facility] Last Admin: 06/08/18 13:35 Dose: 0.3 mg Gabapentin (Neurontin) 100 mg PO TID [facility] Last Admin: 06/08/18 13:37 Dose: 100 mg Hydralazine HCl (Apresoline) 100 mg PO Q8 [facility] Last Admin: 06/08/18 08:56 Dose: 100 mg Iron Sucrose 100 mg/ Sodium (Chloride) 105 mls @ 105 mls/hr IVPB DAILY [facility] Stop: 06/17/18 09:59 Last Admin: 06/08/18 13:37 Dose: 105 mls/hr Insulin Human Lispro (Humalog) 0 units SC Q6H [facility] PRN Reason: Protocol Last Admin: 06/08/18 13:36 Dose: 4 u Losartan Potassium (Cozaar) 50 mg PO QPM [facility] Last Admin: 06/07/18 18:12 Dose: Not Given Metoclopramide HCl (Reglan) 10 mg IVP Q6 PRN PRN Reason: Nausea/Vomiting Last Admin: 06/08/18 04:20 Dose: 10 mg Ondansetron HCl (Zofran Inj) 4 mg IVP Q6H PRN PRN Reason: Nausea/Vomiting Last Admin: 06/07/18 08:33 Dose: 4 mg Ondansetron HCl (Zofran Inj) 4 mg IVP Q6 [facility] Last Admin: 06/08/18 09:06 Dose: 4 mg Pantoprazole Sodium (Protonix Inj) 40 mg IVP Q12 [facility] Last Admin: 06/08/18 09:00 Dose: 40 mg Vitamin B Complex/Vit C/Folic Acid (Nephro-Elsa) 1 tab PO DAILY [facility] Last Admin: 06/08/18 08:58 Dose: 1 tab - Labs Labs: 06/08/18 04:45 06/08/18 04:45 PT 12.5 Seconds (9.8-13.1) 06/05/18 21:15 INR 1.1 (0.9-1.2) 06/05/18 21:15 APTT 33.3 Seconds (25.6-37.1) 06/05/18 21:15
[2018-06-08] MEDS: Ergocalciferol 50,000 Intl Units Cap PO SCH (17:37)
[2018-06-09 05:22] LABS: HEMOGLOBIN 10.2 g/dL (12.0-18.0); MEAN CELL VOLUME 77.8 fl (80.0-94.0); MEAN CORPUSCULAR HEMOGLOBIN 25.5 pg (27.0-31.0); MEAN CORPUSCULAR HGB CONC 32.7 g/dL (33.0-37.0); RBC 4.02 Mil/uL (4.40-5.90); RED CELL DISTRIBUTION WIDTH 13.3 % (11.5-14.5)
[2018-06-09 05:59] LABS: ALB/GLOB RATIO 1.1 (1.0-2.1); ALBUMIN 3.6 g/dL (3.5-5.0); CALCIUM 8.9 mg/dL (8.4-10.2)
[2018-06-09] MEDS: Insulin Lispro (humaLOG) 100 Units/ml Inj SC SCH ×4 (06:30→23:11)
[2018-06-09] MEDS: Multivitamin Vitamin B Complex (Nephro-Vite) Tab PO SCH ×2 (09:00→11:46)
--- NOTE | 2018-06-09 09:58 | CARD ---
APPROVED REPORT EXAM: Two-dimensional and M-mode echocardiogram with Doppler and color Doppler. Other Information Quality : GoodRhythm : NSR INDICATION +VE TNI 2D DIMENSIONS IVSd1.60 (0.7-1.1cm)LVDd3.81 (3.9-5.9cm) LVOT Diameter2.76 (1.8-2.4cm)PWd1.48 (0.7-1.1cm) IVSs1.85 (0.8-1.2cm)LVDs2.67 (2.5-4.0cm) FS (%) 29.9 %PWs1.77 (0.8-1.2cm) M-Mode DIMENSIONS Left Atrium (MM)4.78 (2.5-4.0cm)IVSd1.88 (0.7-1.1cm) Aortic Root3.53 (2.2-3.7cm)LVDd4.28 (4.0-5.6cm) Aortic Cusp Exc.2.41 (1.5-2.0cm)PWd1.81 (0.7-1.1cm) IVSs2.16 cmFS (%) 31 % LVDs2.94 (2.0-3.8cm)PWs2.16 cm Aortic Valve AoV Peak Uxzakugf794.8cm/sAoV VTI20.0cmAO Peak GR.6mmHg LVOT Peak Cpqiffsi978.8cm/sLVOT VTI19.00cmAO Mean GR.3mmHg SHALINI (VMAX)2.14gz6DIL (VTI)2.46cm2 Mitral Valve MV E Ztwuicsu06.2cm/sMV DECEL ZLJR520pkHE A Jpathwth21.2cm/s MV CXF79vzA/A ratio0.9MVA (PHT)2.42cm2 TDI Lateral E' Peak V6.52cm/sMedial E' Peak V4.32cm/sE/Lateral E'10.0 E/Medial E'15.1 Pulmonary Valve PV Peak Annwypcq541.1cm/s LEFT VENTRICLE The left ventricle is normal size. There is mild to moderate concentric left ventricular hypertrophy. The left ventricular function is normal. The left ventricular ejection fraction is within the normal range. The Ejection Fraction is 50-55%. There is normal LV segmental wall motion. Transmitral Doppler flow pattern is Grade I-abnormal relaxation pattern. Left Ventricular End Diastolic Pressure is mildly elevated. RIGHT VENTRICLE The right ventricle is normal size. Systolic function is mildly reduced. ATRIA The left atrium is borderline dilated. The right atrium is mildly dilated. AORTIC VALVE The aortic valve is thickened but opens well. Echolucency seen at the non-coronary/right coronary cusp which raises suspicion for possible endocarditis There is trace to mild aortic regurgitation. There is no aortic valvular stenosis. MITRAL VALVE The mitral valve is thickened but opens well. There is no mitral valve stenosis. Mitral regurgitation is trace. TRICUSPID VALVE The tricuspid valve leaflets are thickened , but open well. There is trace to mild tricuspid regurgitation. PULMONIC VALVE The pulmonic valve is not well visualized. There is trace to mild pulmonic valvular regurgitation. GREAT VESSELS The aortic root is normal in size. The IVC is normal in size and collapses >50% with inspiration. PERICARDIAL EFFUSION The pericardium appears normal. Further Testing Further Testing : For further evaluation DAYSI is recommended. <Conclusion> The left ventricular function is normal. The left ventricular ejection fraction is within the normal range. The Ejection Fraction is 50-55%. Transmitral Doppler flow pattern is Grade I-abnormal relaxation pattern. Left Ventricular End Diastolic Pressure is mildly elevated. The right atrium is mildly dilated. The aortic valve is thickened but opens well. Echolucency seen at the non-coronary/right coronary cusp which raises suspicion for possible endocarditis
--- NOTE | 2018-06-09 11:09 | CON ---
DATE: 06/06/2018 REASON FOR CONSULTATION: Coffee ground emesis. HISTORY OF PRESENT ILLNESS: This is a 47-year-old male with history of multiple medical problems including diabetes, noncompliance, hypertension, hyperlipemia prior CVA, comes in for vomiting multiple times in a couple of days. The patient is also currently hypertensive and has headaches and chest discomfort. No melena present. Currently lying in the bed in mild distress. PAST MEDICAL HISTORY: As above. SURGICAL HISTORY: As above. MEDICATIONS: Reviewed. REVIEW OF SYSTEMS: All other systems have been reviewed and negative apart from the HPI. PHYSICAL EXAMINATION: VITAL SIGNS: Here in the hospital are grossly unremarkable. GENERAL: A pleasant elderly appearing male, lying in bed comfortably, in no apparent distress. HEENT: Head is normocephalic and atraumatic. Eyes: Pupils are equally reactive to light bilaterally. No conjunctival pallor or icterus. NECK: Supple. Normal range of motion. No lymphadenopathy appreciated. LUNGS: Coarse breath sounds bilaterally. HEART: S1 and S2, regular rate and rhythm. No murmurs appreciated. ABDOMEN: Soft. No discomfort. No rebound. No guarding. RECTAL: Deferred. EXTREMITIES: Pulses present bilaterally. SKIN: Warm, dry and intact. NEUROLOGIC: A and O x3. LABORATORY DATA: Labs and radiology have been reviewed. WBC is , hemoglobin is 12.5 and stable, hematocrit of 38, platelet count is 261. INR is normal. Lactic acid is improved at 2.8. BUN and creatinine of 109 and 7.8 at this point. Sugars are almost 300. Troponins are positive x2 and increasing. Alkaline phosphatase 152. ASSESSMENT AND PLAN: This is a 47-year-old male with diabetes, hypertension, now with nausea and vomiting. I suspect this is possibly gastroparesis. There is no evidence of gastrointestinal bleeding. His hemoglobin is stable. Iv PPI, no drip. Lastly about a year and half ago found to have esophagitis. No other real findings. Prognosis is guarded. Thank you for the consult. Jung Jc MD/ PhD cc: Joel Lake MD [facility] # [id number] MTDD
--- NOTE | 2018-06-09 11:30 | CARD ---
APPROVED REPORT EKG Measurement Heart [id number] PA [id number] <Conclusion> Sinus tachycardia Left axis deviation Left ventricular hypertrophy with repolarization abnormality Abnormal ECG
--- NOTE | 2018-06-09 14:41 | PN ---
DATE: 06/09/2018 SUBJECTIVE: The patient seen and examined. Interim events noted. Consults noted and appreciated. The patient remains in progressive care unit, on telemetry monitoring dialysis today. The patient feels okay. Denies any chest pain. No shortness of breath. PHYSICAL EXAMINATION: GENERAL: The patient is in no acute distress. VITAL SIGNS: Stable. HEART: S1 and S2, normal and regular. LUNGS: Good bilateral air exchange. ABDOMEN: Soft, nontender. EXTREMITIES: No edema. No calf swelling. No tenderness. No acute ischemia. The patient is status post amputation. 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 DIAGNOSTIC DATA: Available diagnostic data reviewed. ASSESSMENT AND PLAN: Overall, the patient's general medical condition is stable. Plan as ordered. Joel Lake MD
--- NOTE | 2018-06-09 15:43 | CP.PCM.PN ---
Subjective - Date & Time of Evaluation Date of Evaluation: 06/09/18 Time of Evaluation: 08:40 - Subjective Subjective: Nephrology Progress Note Assessment: Stable Diabetic chronic Kidney Disease (E11.22) Hypertensive Chronic Kidney Disease (I12.0) New onset End stage renal disease (N18.6) dependence on hemodialysis (Z99.2) via shiley Anemia (D64.9), Hyperphosphatemia (E83.39), Secondary Hyperparathyroidism (E21.1 ), HTN (I12.0) Hypokalemia Plan: HD today pt receiving tte, will f/u on result Continue with Nephrovite 1 tab/day. PRBC as needed for anemia. not on YURIY with dialysis as hgb stable Continue with phos binders on vit d check pth bp well controlled on ARB Glycemic control, Dialysis consistent diet recc placement of permacath and if possible avf prior to d/c SW consult for outpt HD placement with Dr Douglas Rodríguez S: seen and examined, getting TTE ,no complaints Physical Examination: General Appearance: Comfortable, in no acute respiratory distress, co-operative . Vitals reviewed and noted as below Head; Atraumatic, normocephalic ENT: no ulcers no thrush. Tongue is midline. Oropharynx: no rash or ulcers. EYES: Pupils are equal, round and reactive to light accommodation. Eye muscles and extraocular movement intact. Sclera is anicteric. Neck; supple no lymphadenopathy, no thyromegaly or bruit Lungs: Normal respiratory rate/effort. Breath sounds bilateral equal and clear Heart: Normal rate. s1s2 normal. No rub or gallop. Extremities: no edema. No varicose veins. Rt foot TMA Neurological: Patient is alert, awake and oriented to person, place and time. No focal deficit. Strength bilateral appropriate and equal Skin: Warm and dry. Normal turgor. No rash. Palpitation: Normal elasticity for age Abdomen: Abdomen is soft. Bowel sounds +. There is no abdominal tenderness, no guarding/rigidity or organomegaly Psych: normal insight and normal affect/mood MSK: no joint tenderness or swelling. Digits and nails normal, no deformity : kidney or bladder not palpable Access: non tunneleed hd cath Objective - Vital Signs/Intake and Output Vital Signs (last 24 hours): Temp Pulse Resp BP Pulse Ox 98.2 F 60 18 118/76 99 06/09/18 12:48 06/09/18 12:48 06/09/18 12:48 06/09/18 12:48 06/09/18 12:48 Intake and Output: 06/09/18 06/09/18 06:59 18:59 Intake Total 25 Balance 25 - Medications Medications: Current Medications Amlodipine Besylate (Norvasc) 10 mg PO DAILY [facility] Last Admin: 06/09/18 11:47 Dose: Not Given Atenolol (Tenormin) 25 mg PO DAILY [facility] Last Admin: 06/09/18 11:46 Dose: Not Given Calcium Acetate (Phoslo) 667 mg PO WM@0900,1300,1700 [facility] Last Admin: 06/09/18 11:40 Dose: 667 mg Clonidine HCl (Catapres) 0.3 mg PO TID [facility] Last Admin: 06/09/18 13:00 Dose: Not Given Ergocalciferol (Drisdol 50,000 Intl Units Cap) 1 cap PO Q7D [facility] Last Admin: 06/08/18 17:37 Dose: 1 cap Gabapentin (Neurontin) 100 mg PO TID [facility] Last Admin: 06/09/18 14:07 Dose: 100 mg Hydralazine HCl (Apresoline) 100 mg PO Q8 [facility] Last Admin: 06/09/18 14:03 Dose: Not Given Iron Sucrose 100 mg/ Sodium (Chloride) 105 mls @ 105 mls/hr IVPB DAILY [facility] Stop: 06/17/18 09:59 Last Admin: 06/09/18 11:45 Dose: 105 mls/hr Insulin Human Lispro (Humalog) 0 units SC Q6H [facility] PRN Reason: Protocol Last Admin: 06/09/18 11:48 Dose: 2 u Losartan Potassium (Cozaar) 50 mg PO QPM [facility] Last Admin: 06/08/18 17:35 Dose: 50 mg Metoclopramide HCl (Reglan) 10 mg IVP Q6 PRN PRN Reason: Nausea/Vomiting Last Admin: 06/08/18 04:20 Dose: 10 mg Ondansetron HCl (Zofran Inj) 4 mg IVP Q6H PRN PRN Reason: Nausea/Vomiting Last Admin: 06/07/18 08:33 Dose: 4 mg Ondansetron HCl (Zofran Inj) 4 mg IVP Q6 [facility] Last Admin: 06/09/18 11:41 Dose: Not Given Pantoprazole Sodium (Protonix Inj) 40 mg IVP Q12 [facility] Last Admin: 06/09/18 11:41 Dose: 40 mg Vitamin B Complex/Vit C/Folic Acid (Nephro-Elsa) 1 tab PO DAILY [facility] Last Admin: 06/09/18 11:46 Dose: Not Given - Labs Labs: 06/09/18 04:20 06/09/18 04:20 PT 12.5 Seconds (9.8-13.1) 06/05/18 21:15 INR 1.1 (0.9-1.2) 06/05/18 21:15 APTT 33.3 Seconds (25.6-37.1) 06/05/18 21:15
--- NOTE | 2018-06-09 16:09 | CP.PCM.PN ---
Subjective - Date & Time of Evaluation Date of Evaluation: 06/09/18 Time of Evaluation: 16:07 - Subjective Subjective: s/p HD today Objective - Vital Signs/Intake and Output Vital Signs (last 24 hours): Temp Pulse Resp BP Pulse Ox 98.2 F 60 18 118/76 99 06/09/18 12:48 06/09/18 12:48 06/09/18 12:48 06/09/18 12:48 06/09/18 12:48 Intake and Output: 06/09/18 06/09/18 06:59 18:59 Intake Total 25 Balance 25 - Medications Medications: Current Medications Amlodipine Besylate (Norvasc) 10 mg PO DAILY [facility] Last Admin: 06/09/18 11:47 Dose: Not Given Atenolol (Tenormin) 25 mg PO DAILY [facility] Last Admin: 06/09/18 11:46 Dose: Not Given Calcium Acetate (Phoslo) 667 mg PO WM@0900,1300,1700 [facility] Last Admin: 06/09/18 11:40 Dose: 667 mg Clonidine HCl (Catapres) 0.3 mg PO TID [facility] Last Admin: 06/09/18 13:00 Dose: Not Given Ergocalciferol (Drisdol 50,000 Intl Units Cap) 1 cap PO Q7D [facility] Last Admin: 06/08/18 17:37 Dose: 1 cap Gabapentin (Neurontin) 100 mg PO TID [facility] Last Admin: 06/09/18 14:07 Dose: 100 mg Hydralazine HCl (Apresoline) 100 mg PO Q8 [facility] Last Admin: 06/09/18 14:03 Dose: Not Given Iron Sucrose 100 mg/ Sodium (Chloride) 105 mls @ 105 mls/hr IVPB DAILY [facility] Stop: 06/17/18 09:59 Last Admin: 06/09/18 11:45 Dose: 105 mls/hr Insulin Human Lispro (Humalog) 0 units SC Q6H [facility] PRN Reason: Protocol Last Admin: 06/09/18 11:48 Dose: 2 u Losartan Potassium (Cozaar) 50 mg PO QPM [facility] Last Admin: 06/08/18 17:35 Dose: 50 mg Metoclopramide HCl (Reglan) 10 mg IVP Q6 PRN PRN Reason: Nausea/Vomiting Last Admin: 06/08/18 04:20 Dose: 10 mg Ondansetron HCl (Zofran Inj) 4 mg IVP Q6H PRN PRN Reason: Nausea/Vomiting Last Admin: 06/07/18 08:33 Dose: 4 mg Ondansetron HCl (Zofran Inj) 4 mg IVP Q6 [facility] Last Admin: 06/09/18 11:41 Dose: Not Given Pantoprazole Sodium (Protonix Inj) 40 mg IVP Q12 [facility] Last Admin: 06/09/18 11:41 Dose: 40 mg Vitamin B Complex/Vit C/Folic Acid (Nephro-Elsa) 1 tab PO DAILY [facility] Last Admin: 06/09/18 11:46 Dose: Not Given - Labs Labs: 06/09/18 04:20 06/09/18 04:20 PT 12.5 Seconds (9.8-13.1) 06/05/18 21:15 INR 1.1 (0.9-1.2) 06/05/18 21:15 APTT 33.3 Seconds (25.6-37.1) 06/05/18 21:15 - Constitutional Appears: Well - Head Exam Head Exam: ATRAUMATIC, NORMAL INSPECTION, NORMOCEPHALIC - Eye Exam Eye Exam: EOMI, Normal appearance, PERRL Pupil Exam: NORMAL ACCOMODATION, PERRL - ENT Exam ENT Exam: Mucous Membranes Moist, Normal Exam - Neck Exam Neck Exam: Full ROM, Normal Inspection. absent: Lymphadenopathy - Respiratory Exam Respiratory Exam: Clear to Ausculation Bilateral, NORMAL BREATHING PATTERN - Cardiovascular Exam Cardiovascular Exam: REGULAR RHYTHM, +S1, +S2, Murmur - GI/Abdominal Exam GI & Abdominal Exam: Soft, Normal Bowel Sounds. absent: Tenderness - Extremities Exam Extremities Exam: Full ROM, Normal Capillary Refill, Normal Inspection. absent : Joint Swelling, Pedal Edema - Back Exam Back Exam: NORMAL INSPECTION - Neurological Exam Neurological Exam: Alert, Awake, CN II-XII Intact, Normal Gait, Oriented x3 - Psychiatric Exam Psychiatric exam: Normal Affect, Normal Mood - Skin Skin Exam: Dry, Intact, Normal Color, Warm Assessment and Plan (1) Elevated troponin Assessment & Plan: nuclear stress test in am npo p mn Status: Acute (2) Endocarditis Assessment & Plan: DAYSI Status: Acute (3) Abdominal pain Status: Acute (4) Chronic kidney disease, stage V Status: Acute (5) Hypertensive CKD (chronic kidney disease) Status: Acute
[2018-06-10 05:40] LABS: HEMOGLOBIN 11.1 g/dL (12.0-18.0); MEAN CORPUSCULAR HEMOGLOBIN 25.6 pg (27.0-31.0); MEAN CORPUSCULAR HGB CONC 32.8 g/dL (33.0-37.0); RBC 4.34 Mil/uL (4.40-5.90); RED CELL DISTRIBUTION WIDTH 13.5 % (11.5-14.5); WHITE BLOOD COUNT 14.6 K/uL (4.8-10.8)
[2018-06-10 05:54] LABS: ALB/GLOB RATIO 1.1 (1.0-2.1); CALCIUM 9.1 mg/dL (8.4-10.2)
[2018-06-10] MEDS: Insulin Lispro (humaLOG) 100 Units/ml Inj SC SCH ×4 (07:14→22:39)
--- NOTE | 2018-06-10 08:36 | CP.PCM.PN ---
<Yana Gibbons - Last Filed: 06/10/18 11:11> Subjective - Date & Time of Evaluation Date of Evaluation: 06/10/18 Time of Evaluation: 07:25 - Subjective Subjective: Pt seen and eval with Dr. Lake this am. Pt sleeping, awoken. States he feels better, less nausea/retching. Objective - Vital Signs/Intake and Output Vital Signs (last 24 hours): Temp Pulse Resp BP Pulse Ox 98.8 F 68 18 139/80 98 06/10/18 08:00 06/10/18 08:00 06/10/18 08:00 06/10/18 08:00 06/10/18 08:00 Intake and Output: 06/10/18 06/10/18 06:59 18:59 Intake Total 250 Balance 250 - Medications Medications: Current Medications Amlodipine Besylate (Norvasc) 10 mg PO DAILY [facility] Last Admin: 06/09/18 11:47 Dose: Not Given Atenolol (Tenormin) 25 mg PO DAILY [facility] Last Admin: 06/09/18 11:46 Dose: Not Given Calcium Acetate (Phoslo) 667 mg PO WM@0900,1300,1700 [facility] Last Admin: 06/09/18 18:09 Dose: 667 mg Clonidine HCl (Catapres) 0.3 mg PO TID [facility] Last Admin: 06/09/18 17:48 Dose: Not Given Ergocalciferol (Drisdol 50,000 Intl Units Cap) 1 cap PO Q7D [facility] Last Admin: 06/08/18 17:37 Dose: 1 cap Gabapentin (Neurontin) 100 mg PO TID [facility] Last Admin: 06/09/18 18:18 Dose: 100 mg Hydralazine HCl (Apresoline) 100 mg PO Q8 [facility] Last Admin: 06/10/18 01:20 Dose: 100 mg Iron Sucrose 100 mg/ Sodium (Chloride) 105 mls @ 105 mls/hr IVPB DAILY [facility] Stop: 06/17/18 09:59 Last Admin: 06/09/18 11:45 Dose: 105 mls/hr Insulin Human Lispro (Humalog) 0 units SC Q6H [facility] PRN Reason: Protocol Last Admin: 06/09/18 23:11 Dose: Not Given Losartan Potassium (Cozaar) 50 mg PO QPM [facility] Last Admin: 06/09/18 18:08 Dose: Not Given Metoclopramide HCl (Reglan) 10 mg IVP Q6 PRN PRN Reason: Nausea/Vomiting Last Admin: 06/08/18 04:20 Dose: 10 mg Ondansetron HCl (Zofran Inj) 4 mg IVP Q6H PRN PRN Reason: Nausea/Vomiting Last Admin: 06/07/18 08:33 Dose: 4 mg Ondansetron HCl (Zofran Inj) 4 mg IVP Q6 [facility] Last Admin: 06/10/18 06:59 Dose: Not Given Pantoprazole Sodium (Protonix Inj) 40 mg IVP Q12 [facility] Last Admin: 06/09/18 23:07 Dose: 40 mg Vitamin B Complex/Vit C/Folic Acid (Nephro-Elsa) 1 tab PO DAILY [facility] Last Admin: 06/09/18 09:00 Dose: 1 tab - Labs Labs: 06/10/18 05:10 06/10/18 05:10 PT 12.5 Seconds (9.8-13.1) 06/05/18 21:15 INR 1.1 (0.9-1.2) 06/05/18 21:15 APTT 33.3 Seconds (25.6-37.1) 06/05/18 21:15 - Constitutional Appears: No Acute Distress, Chronically Ill - Eye Exam Eye Exam: Normal appearance - ENT Exam ENT Exam: Mucous Membranes Moist - Respiratory Exam Additional comments: good air entry/movement - Cardiovascular Exam Cardiovascular Exam: REGULAR RHYTHM - GI/Abdominal Exam GI & Abdominal Exam: Soft, Normal Bowel Sounds - Extremities Exam Extremities Exam: absent: Calf Tenderness Additional comments: s/p TMA LLE - Neurological Exam Neurological Exam: Alert, Awake Assessment and Plan - Assessment and Plan (Free Text) Assessment: 47 yo male with hx ESRD, DM2, HTN, HLD, gastroparesis admitted for vomitting; intially suspected upper GI bleed but since r/o; likely gastroparesis. Received dialysis through [facility]. Plan: - DM2: Likely gastroparesis, continue with zofran, reglan, protonix. Insulin coverage scale/hypoglycemia protocol - ESRD: Nephrology consult - pt had IJ placed, got dialyzed, renal function improved. Pending permanent access. Continue medications as per nephro. - Cardio consult- Dr. Kannan, pending DAYSI - HTN - resume home meds - SCD for DVT ppx <Joel Lake K - Last Filed: 06/12/18 20:01> Objective - Vital Signs/Intake and Output Vital Signs (last 24 hours): Temp Pulse Resp BP Pulse Ox 98.5 F 65 16 128/85 99 06/12/18 16:16 06/12/18 17:46 06/12/18 16:16 06/12/18 17:46 06/12/18 16:16 Intake and Output: 06/12/18 06/13/18 18:59 06:59 Intake Total 1340 Balance 1340 - Medications Medications: Current Medications Amlodipine Besylate (Norvasc) 10 mg PO DAILY [facility] Last Admin: 06/12/18 09:56 Dose: Not Given Atorvastatin Calcium (Lipitor) 40 mg PO HS [facility] Last Admin: 06/11/18 22:26 Dose: 40 mg Calcium Acetate (Phoslo) 667 mg PO WM@0900,1300,1700 [facility] Last Admin: 06/12/18 17:48 Dose: 667 mg Clonidine HCl (Catapres) 0.3 mg PO TID [facility] Last Admin: 06/12/18 17:45 Dose: 0.3 mg Ergocalciferol (Drisdol 50,000 Intl Units Cap) 1 cap PO Q7D [facility] Last Admin: 06/08/18 17:37 Dose: 1 cap Gabapentin (Neurontin) 100 mg PO TID [facility] Last Admin: 06/12/18 17:48 Dose: 100 mg Hydralazine HCl (Apresoline) 100 mg PO Q8 [facility] Last Admin: 06/12/18 17:43 Dose: 100 mg Iron Sucrose 100 mg/ Sodium (Chloride) 105 mls @ 105 mls/hr IVPB DAILY [facility] Stop: 06/17/18 09:59 Last Admin: 06/12/18 10:51 Dose: 105 mls/hr Dextrose/Sodium Chloride (Dextrose 5%/0.45% Ns 1000 Ml) 1,000 mls @ 60 mls/hr IV .[id number] [facility] Stop: 06/13/18 16:08 Insulin Human Lispro (Humalog) 0 units SC Q6H [facility] PRN Reason: Protocol Last Admin: 06/12/18 17:46 Dose: 1 u Losartan Potassium (Cozaar) 50 mg PO QPM [facility] Last Admin: 06/12/18 17:46 Dose: 50 mg Metoprolol Succinate (Toprol Xl) 50 mg PO DAILY [facility] Last Admin: 06/12/18 10:01 Dose: 50 mg Ondansetron HCl (Zofran Inj) 4 mg IVP Q6H PRN PRN Reason: Nausea/Vomiting Last Admin: 06/11/18 16:09 Dose: 4 mg Pantoprazole Sodium (Protonix Inj) 40 mg IVP Q12 [facility] Last Admin: 06/12/18 10:01 Dose: 40 mg Vitamin B Complex/Vit C/Folic Acid (Nephro-Elsa) 1 tab PO DAILY [facility] Last Admin: 06/12/18 09:23 Dose: Not Given - Labs Labs: 06/12/18 05:00 06/12/18 05:00 PT 12.4 Seconds (9.8-13.1) 06/12/18 05:00 INR 1.1 (0.9-1.2) 06/12/18 05:00 APTT 30.4 Seconds (25.6-37.1) 06/12/18 05:00 Assessment and Plan - Assessment and Plan (Free Text) Plan: Patient was personally seen and examined by me in rounds with residents. Available labs and diagnostic data reviewed. Case, Patient's condition and management plan discussed with residents in rounds. Agree with resident's progress note. Plan: As ordered.
[2018-06-10] MEDS: Multivitamin Vitamin B Complex (Nephro-Vite) Tab PO SCH (09:14)
[2018-06-10] MEDS ORDERED: Aminophylline 25 mg/ml Inj ONE (10:44)
--- NOTE | 2018-06-10 12:04 | CP.PCM.CON ---
History of Present Illness - History of Present Illness History of Present Illness: Vascular Surgery Dr. Kulkarni 47 y/o M w/ PMHx of HTN, CKD, DM2, CVA, HLD presented to the ED on 06/05 c/o N/V. Pt reported multiple episodes of vomiting w/ unwitnessed coffee-ground emesis. Pt admitted to ICU for UGIB, which has resolved. During stay, pt s/p shiley placement for new requirement of HD. Surgery consulted for new AVF access as previous site non-functional. Currently, pt admits to improved nausea but denies F/C, vomiting, abd pain. PMHx: HTN, CKD, DM2, CVA, HLD. chronic anemia Meds: reviewed in chart ALL: PCN PSHx: R TMA, craniotomy, L AVF SHx: denies T, EtOH, D use FHx: unknown Review of Systems - Review of Systems All systems: reviewed and no additional remarkable complaints except (see HPI.) Past Patient History - Past Medical History & Family History Past Medical History?: Yes - Past Social History Smoking Status: Never Smoked Chewing Tobacco Use: No Alcohol: None Drugs: Denies - CARDIAC Hx Cardiac Disorders: Yes - PULMONARY Hx Chronic Obstructive Pulmonary Disease (COPD): No - NEUROLOGICAL Hx Neurological Disorder: No - HEENT Hx HEENT Problems: No - RENAL Hx Chronic Kidney Disease: Yes (ESRD pending HD) - ENDOCRINE/METABOLIC Hx Endocrine Disorders: Yes Hx Diabetes Mellitus Type 2: Yes - HEMATOLOGICAL/ONCOLOGICAL Hx Anemia: Yes Hx Human Immunodeficiency Virus (HIV): No - INTEGUMENTARY Hx Dermatological Problems: No - MUSCULOSKELETAL/RHEUMATOLOGICAL Hx Arthritis: No Hx Rheumatoid Arthritis: No - GASTROINTESTINAL Hx Gastrointestinal Disorders: Yes Hx Nausea: Yes Hx Vomiting: Yes - GENITOURINARY/GYNECOLOGICAL Hx Genitourinary Disorders: No - PSYCHIATRIC Hx Psychophysiologic Disorder: No Hx Substance Use: No - SURGICAL HISTORY Hx Surgeries: Yes Hx Amputation: Yes (tma right foot) Other/Comment: left suboccipital craniotomy - ANESTHESIA Hx Anesthesia: Yes Hx Anesthesia Reactions: No Hx Malignant Hyperthermia: No Meds Allergies/Adverse Reactions: Allergies Allergy/AdvReac Type Severity Reaction Status Date / Time Penicillins Allergy RASH Verified 12/13/17 20:49 - Medications Medications: Current Medications Amlodipine Besylate (Norvasc) 10 mg PO DAILY [facility] Last Admin: 06/10/18 09:12 Dose: 10 mg Atenolol (Tenormin) 25 mg PO DAILY [facility] Last Admin: 06/10/18 09:13 Dose: 25 mg Calcium Acetate (Phoslo) 667 mg PO WM@0900,1300,1700 [facility] Last Admin: 06/10/18 09:12 Dose: 667 mg Clonidine HCl (Catapres) 0.3 mg PO TID [facility] Last Admin: 06/10/18 09:12 Dose: 0.3 mg Ergocalciferol (Drisdol 50,000 Intl Units Cap) 1 cap PO Q7D [facility] Last Admin: 06/08/18 17:37 Dose: 1 cap Gabapentin (Neurontin) 100 mg PO TID [facility] Last Admin: 06/10/18 09:12 Dose: 100 mg Hydralazine HCl (Apresoline) 100 mg PO Q8 [facility] Last Admin: 06/10/18 09:11 Dose: 100 mg Iron Sucrose 100 mg/ Sodium (Chloride) 105 mls @ 105 mls/hr IVPB DAILY [facility] Stop: 06/17/18 09:59 Last Admin: 06/09/18 11:45 Dose: 105 mls/hr Insulin Human Lispro (Humalog) 0 units SC Q6H [facility] PRN Reason: Protocol Last Admin: 06/10/18 07:14 Dose: Not Given Losartan Potassium (Cozaar) 50 mg PO QPM [facility] Last Admin: 06/09/18 18:08 Dose: Not Given Metoclopramide HCl (Reglan) 10 mg IVP Q6 PRN PRN Reason: Nausea/Vomiting Last Admin: 06/08/18 04:20 Dose: 10 mg Ondansetron HCl (Zofran Inj) 4 mg IVP Q6H PRN PRN Reason: Nausea/Vomiting Last Admin: 06/07/18 08:33 Dose: 4 mg Ondansetron HCl (Zofran Inj) 4 mg IVP Q6 [facility] Last Admin: 06/10/18 06:59 Dose: Not Given Pantoprazole Sodium (Protonix Inj) 40 mg IVP Q12 [facility] Last Admin: 06/10/18 09:11 Dose: 40 mg Vitamin B Complex/Vit C/Folic Acid (Nephro-Elsa) 1 tab PO DAILY [facility] Last Admin: 06/10/18 09:14 Dose: 1 tab Physical Exam - Constitutional Appears: Non-toxic, No Acute Distress - Head Exam Head Exam: NORMAL INSPECTION - Eye Exam Eye Exam: Normal appearance - ENT Exam ENT Exam: Mucous Membranes Moist - Respiratory Exam Respiratory Exam: NORMAL BREATHING PATTERN. absent: Accessory Muscle Use, Respiratory Distress - Cardiovascular Exam Cardiovascular Exam: REGULAR RHYTHM. absent: Bradycardia, Tachycardia - GI/Abdominal Exam GI & Abdominal Exam: Soft. absent: Distended, Tenderness - Extremities Exam Additional comments: LUE w/ healed scar. palpable pulse but no palpable thrill @ surgical site - Neurological Exam Neurological exam: Alert, Oriented x3 - Psychiatric Exam Psychiatric exam: Normal Affect, Normal Mood - Skin Skin Exam: Dry, Intact, Normal Color, Warm Results - Vital Signs Recent Vital Signs: Last Vital Signs Temp 98.8 F 06/10/18 08:00 Pulse 68 06/10/18 09:13 Resp 18 06/10/18 08:00 BP 139/80 06/10/18 09:13 Pulse Ox 98 06/10/18 08:00 - Labs Result Diagrams: 06/10/18 05:10 06/10/18 05:10 Labs: Laboratory Results - last 24 hr 06/08/18 06/09/18 06/09/18 04:45 16:01 17:31 WBC RBC Hgb Hct MCV MCH MCHC RDW Plt Count Sodium Potassium Chloride Carbon Dioxide Anion Gap BUN Creatinine Est GFR ( Amer) Est GFR (Non-Af Amer) POC Glucose (mg/dL) 173 H Random Glucose Calcium Total Bilirubin AST ALT Alkaline Phosphatase Troponin I 0.0360 Total Protein Albumin Globulin Albumin/Globulin Ratio PTH Intact Whole Molec 112 H 06/09/18 06/10/18 06/10/18 21:36 05:10 05:10 WBC 14.6 H RBC 4.34 L Hgb 11.1 L Hct 33.8 L MCV 78.0 L MCH 25.6 L MCHC 32.8 L RDW 13.5 Plt Count 140 Sodium 135 Potassium 3.7 Chloride 97 L Carbon Dioxide 25 Anion Gap 17 BUN 40 H Creatinine 3.7 H Est GFR ( Amer) 21 Est GFR (Non-Af Amer) 18 POC Glucose (mg/dL) 201 H Random Glucose 162 H Calcium 9.1 Total Bilirubin 0.5 AST 19 ALT 27 Alkaline Phosphatase 100 Troponin I Total Protein 7.7 Albumin 4.0 Globulin 3.8 Albumin/Globulin Ratio 1.1 PTH Intact Whole Molec 06/10/18 05:26 WBC RBC Hgb Hct MCV MCH MCHC RDW Plt Count Sodium Potassium Chloride Carbon Dioxide Anion Gap BUN Creatinine Est GFR ( Amer) Est GFR (Non-Af Amer) POC Glucose (mg/dL) 167 H Random Glucose Calcium Total Bilirubin AST ALT Alkaline Phosphatase Troponin I Total Protein Albumin Globulin Albumin/Globulin Ratio PTH Intact Whole Molec Assessment & Plan - Assessment and Plan (Free Text) Assessment: 47 y/o M w/ non-functioning AVF requiring HD 2/2 ESRD - vein mapping - cont HD per Nephro - f/u cards recs - cont medical management Further recs per Dr. Shad Lucero DO PGY3
--- NOTE | 2018-06-10 12:44 | CP.PCM.PN ---
Subjective - Date & Time of Evaluation Date of Evaluation: 06/10/18 Time of Evaluation: 12:42 - Subjective Subjective: feeling better vital noted Objective - Vital Signs/Intake and Output Vital Signs (last 24 hours): Temp Pulse Resp BP Pulse Ox 98.8 F 80 18 130/76 97 06/10/18 12:00 06/10/18 12:00 06/10/18 12:00 06/10/18 12:00 06/10/18 12:00 Intake and Output: 06/10/18 06/10/18 06:59 18:59 Intake Total 250 Balance 250 - Medications Medications: Current Medications Amlodipine Besylate (Norvasc) 10 mg PO DAILY [facility] Last Admin: 06/10/18 09:12 Dose: 10 mg Atenolol (Tenormin) 25 mg PO DAILY [facility] Last Admin: 06/10/18 09:13 Dose: 25 mg Calcium Acetate (Phoslo) 667 mg PO WM@0900,1300,1700 [facility] Last Admin: 06/10/18 09:12 Dose: 667 mg Clonidine HCl (Catapres) 0.3 mg PO TID [facility] Last Admin: 06/10/18 09:12 Dose: 0.3 mg Ergocalciferol (Drisdol 50,000 Intl Units Cap) 1 cap PO Q7D [facility] Last Admin: 06/08/18 17:37 Dose: 1 cap Gabapentin (Neurontin) 100 mg PO TID [facility] Last Admin: 06/10/18 09:12 Dose: 100 mg Hydralazine HCl (Apresoline) 100 mg PO Q8 [facility] Last Admin: 06/10/18 09:11 Dose: 100 mg Iron Sucrose 100 mg/ Sodium (Chloride) 105 mls @ 105 mls/hr IVPB DAILY [facility] Stop: 06/17/18 09:59 Last Admin: 06/09/18 11:45 Dose: 105 mls/hr Insulin Human Lispro (Humalog) 0 units SC Q6H [facility] PRN Reason: Protocol Last Admin: 06/10/18 07:14 Dose: Not Given Losartan Potassium (Cozaar) 50 mg PO QPM [facility] Last Admin: 06/09/18 18:08 Dose: Not Given Metoclopramide HCl (Reglan) 10 mg IVP Q6 PRN PRN Reason: Nausea/Vomiting Last Admin: 06/08/18 04:20 Dose: 10 mg Ondansetron HCl (Zofran Inj) 4 mg IVP Q6H PRN PRN Reason: Nausea/Vomiting Last Admin: 06/07/18 08:33 Dose: 4 mg Ondansetron HCl (Zofran Inj) 4 mg IVP Q6 [facility] Last Admin: 06/10/18 06:59 Dose: Not Given Pantoprazole Sodium (Protonix Inj) 40 mg IVP Q12 [facility] Last Admin: 06/10/18 09:11 Dose: 40 mg Vitamin B Complex/Vit C/Folic Acid (Nephro-Elsa) 1 tab PO DAILY [facility] Last Admin: 06/10/18 09:14 Dose: 1 tab - Labs Labs: 06/10/18 05:10 06/10/18 05:10 PT 12.5 Seconds (9.8-13.1) 06/05/18 21:15 INR 1.1 (0.9-1.2) 06/05/18 21:15 APTT 33.3 Seconds (25.6-37.1) 06/05/18 21:15 - Constitutional Appears: No Acute Distress - ENT Exam ENT Exam: Mucous Membranes Moist - Respiratory Exam Respiratory Exam: NORMAL BREATHING PATTERN - Cardiovascular Exam Cardiovascular Exam: absent: Gallop, JVD, Rubs - GI/Abdominal Exam GI & Abdominal Exam: Soft, Normal Bowel Sounds - Extremities Exam Extremities Exam: absent: Calf Tenderness - Back Exam Back Exam: absent: CVA tenderness (L), CVA tenderness (R) - Neurological Exam Neurological Exam: Alert - Psychiatric Exam Psychiatric exam: Normal Affect - Skin Skin Exam: absent: Cyanosis Assessment and Plan (1) Chronic kidney disease, stage V Assessment & Plan: Diabetic chronic Kidney Disease (E11.22) Hypertensive Chronic Kidney Disease (I12.0) New onset End stage renal disease (N18.6) dependence on hemodialysis (Z99.2) via shiley Anemia (D64.9), Hyperphosphatemia (E83.39), Secondary Hyperparathyroidism (E21.1 ), HTN (I12.0) Hypokalemia Plan: HD today pt receiving tte, will f/u on result Continue with Nephrovite 1 tab/day. PRBC as needed for anemia. not on YURIY with dialysis as hgb stable Continue with phos binders on vit d check pth bp well controlled on ARB Glycemic control, Dialysis consistent diet recc placement of permacath and if possible avf prior to d/c vascular called for a v fistula SW for placement in [facility] Status: Acute (2) GI bleed Status: Acute (3) Gastroparesis Status: Acute
--- NOTE | 2018-06-10 14:11 | VASCULAR ---
PROCEDURE: Date of procedure: 06/06/2018 Procedure: Placement of a non tunneled hemodialysis catheter, CPT 27390 Medications: 6cc 1 percent lidocaine Radiation: 1.2 MGy Fluoro time: 6.5 seconds Images saved: 2 HISTORY: Renal failure TECHNIQUE: Following informed consent, the patient's right neck was prepped and draped in the usual sterile fashion. Ultrasound showed a patent and compressible right internal jugular vein. After the skin was anesthetized with 1% lidocaine, the internal jugular vein was accessed under direct ultrasound guidance with micropuncture technique and a guidewire was advanced under fluoroscopic guidance into the SVC. The venotomy was then dilated to accommodate a non tunneled 15 hemodialysis catheter. An image documenting ultrasound guidance for vascular access was permanently saved. The catheter was tested and has adequate blood return for hemodialysis. The catheter was flushed and loaded with heparin per specified amounts. The catheter was secured to patient's skin. A dressing was applied. Post procedure chest x-ray showed a hemodialysis catheter at the caval atrial junction. IMPRESSION: Placement of a non tunneled 15 centimeter hemodialysis catheter via the right internal jugular vein. The tip of the catheter was confirmed with a postoperative chest x-ray and is at the cavoatrial junction. The catheter is functional ready for use.
--- NOTE | 2018-06-10 16:40 | CP.PCM.PN ---
Subjective - Date & Time of Evaluation Date of Evaluation: 06/10/18 Time of Evaluation: 16:36 - Subjective Subjective: s/p stress test today echo raises concern for possible aortic valve endocarditis chest pressure post lexiscan infusion with no EKG changes Objective - Vital Signs/Intake and Output Vital Signs (last 24 hours): Temp Pulse Resp BP Pulse Ox 97.5 F L 73 20 124/82 99 06/10/18 15:44 06/10/18 15:44 06/10/18 15:44 06/10/18 15:44 06/10/18 15:44 Intake and Output: 06/10/18 06/10/18 06:59 18:59 Intake Total 250 Balance 250 - Medications Medications: Current Medications Amlodipine Besylate (Norvasc) 10 mg PO DAILY [facility] Last Admin: 06/10/18 09:12 Dose: 10 mg Atenolol (Tenormin) 25 mg PO DAILY [facility] Last Admin: 06/10/18 09:13 Dose: 25 mg Calcium Acetate (Phoslo) 667 mg PO WM@0900,1300,1700 [facility] Last Admin: 06/10/18 15:29 Dose: 667 mg Clonidine HCl (Catapres) 0.3 mg PO TID [facility] Last Admin: 06/10/18 12:40 Dose: Not Given Ergocalciferol (Drisdol 50,000 Intl Units Cap) 1 cap PO Q7D [facility] Last Admin: 06/08/18 17:37 Dose: 1 cap Gabapentin (Neurontin) 100 mg PO TID [facility] Last Admin: 06/10/18 12:40 Dose: Not Given Hydralazine HCl (Apresoline) 100 mg PO Q8 [facility] Last Admin: 06/10/18 09:11 Dose: 100 mg Iron Sucrose 100 mg/ Sodium (Chloride) 105 mls @ 105 mls/hr IVPB DAILY [facility] Stop: 06/17/18 09:59 Last Admin: 06/10/18 15:29 Dose: 105 mls/hr Insulin Human Lispro (Humalog) 0 units SC Q6H [facility] PRN Reason: Protocol Last Admin: 06/10/18 15:31 Dose: 1 u Losartan Potassium (Cozaar) 50 mg PO QPM [facility] Last Admin: 06/09/18 18:08 Dose: Not Given Metoclopramide HCl (Reglan) 10 mg IVP Q6 PRN PRN Reason: Nausea/Vomiting Last Admin: 06/08/18 04:20 Dose: 10 mg Ondansetron HCl (Zofran Inj) 4 mg IVP Q6H PRN PRN Reason: Nausea/Vomiting Last Admin: 06/07/18 08:33 Dose: 4 mg Ondansetron HCl (Zofran Inj) 4 mg IVP Q6 [facility] Last Admin: 06/10/18 15:34 Dose: 4 mg Pantoprazole Sodium (Protonix Inj) 40 mg IVP Q12 [facility] Last Admin: 06/10/18 09:11 Dose: 40 mg Vitamin B Complex/Vit C/Folic Acid (Nephro-Elsa) 1 tab PO DAILY [facility] Last Admin: 06/10/18 09:14 Dose: 1 tab - Labs Labs: 06/10/18 05:10 06/10/18 05:10 PT 12.5 Seconds (9.8-13.1) 06/05/18 21:15 INR 1.1 (0.9-1.2) 06/05/18 21:15 APTT 33.3 Seconds (25.6-37.1) 06/05/18 21:15 - Constitutional Appears: Well - Head Exam Head Exam: ATRAUMATIC, NORMAL INSPECTION, NORMOCEPHALIC - Eye Exam Eye Exam: EOMI, Normal appearance, PERRL Pupil Exam: NORMAL ACCOMODATION, PERRL - ENT Exam ENT Exam: Mucous Membranes Moist, Normal Exam - Neck Exam Neck Exam: Full ROM, Normal Inspection. absent: Lymphadenopathy - Respiratory Exam Respiratory Exam: Clear to Ausculation Bilateral, NORMAL BREATHING PATTERN - Cardiovascular Exam Cardiovascular Exam: REGULAR RHYTHM, +S1, +S2, Murmur - GI/Abdominal Exam GI & Abdominal Exam: Soft, Normal Bowel Sounds. absent: Tenderness - Extremities Exam Extremities Exam: Full ROM, Normal Capillary Refill, Normal Inspection. absent : Joint Swelling, Pedal Edema - Back Exam Back Exam: NORMAL INSPECTION - Neurological Exam Neurological Exam: Alert, Awake, CN II-XII Intact, Normal Gait, Oriented x3 - Psychiatric Exam Psychiatric exam: Normal Affect, Normal Mood - Skin Skin Exam: Dry, Intact, Normal Color, Warm Assessment and Plan (1) Elevated troponin Assessment & Plan: etiology ? demand ischemia vs endocarditis s/p stress test images being processed med rx with asa, bb, statins further titration based on stress test results Status: Acute (2) Endocarditis Assessment & Plan: plan for DAYSI in am npo p mn Status: Acute (3) Abdominal pain Status: Acute (4) Chronic kidney disease, stage V Status: Acute (5) Hypertensive CKD (chronic kidney disease) Status: Acute (6) HTN (hypertension) Assessment & Plan: cont hydralazine,clonidine dc atenolol to toprol xl cont norvasc , losartan Status: Acute
[2018-06-11] MEDS: Insulin Lispro (humaLOG) 100 Units/ml Inj SC SCH ×5 (05:52→22:28)
--- NOTE | 2018-06-11 08:31 | CP.PCM.PN ---
<Yana Gibbons - Last Filed: 06/11/18 11:52> Subjective - Date & Time of Evaluation Date of Evaluation: 06/11/18 Time of Evaluation: 07:40 - Subjective Subjective: Pt seen this morning with Dr. Lake; was resting in bed. Stated nausea is improving. Had lexiscan yesterday; results pending. Objective - Vital Signs/Intake and Output Vital Signs (last 24 hours): Temp Pulse Resp BP Pulse Ox 98.7 F 69 20 143/80 98 06/11/18 08:00 06/11/18 08:00 06/11/18 08:00 06/11/18 08:00 06/11/18 08:00 - Medications Medications: Current Medications Amlodipine Besylate (Norvasc) 10 mg PO DAILY [facility] Last Admin: 06/10/18 09:12 Dose: 10 mg Calcium Acetate (Phoslo) 667 mg PO WM@0900,1300,1700 [facility] Last Admin: 06/10/18 17:40 Dose: 667 mg Clonidine HCl (Catapres) 0.3 mg PO TID [facility] Last Admin: 06/10/18 17:39 Dose: 0.3 mg Ergocalciferol (Drisdol 50,000 Intl Units Cap) 1 cap PO Q7D [facility] Last Admin: 06/08/18 17:37 Dose: 1 cap Gabapentin (Neurontin) 100 mg PO TID [facility] Last Admin: 06/10/18 17:40 Dose: 100 mg Hydralazine HCl (Apresoline) 100 mg PO Q8 [facility] Last Admin: 06/11/18 00:30 Dose: 100 mg Iron Sucrose 100 mg/ Sodium (Chloride) 105 mls @ 105 mls/hr IVPB DAILY [facility] Stop: 06/17/18 09:59 Last Admin: 06/10/18 15:29 Dose: 105 mls/hr Insulin Human Lispro (Humalog) 0 units SC Q6H [facility] PRN Reason: Protocol Last Admin: 06/11/18 05:52 Dose: Not Given Losartan Potassium (Cozaar) 50 mg PO QPM [facility] Last Admin: 06/10/18 17:40 Dose: 50 mg Metoclopramide HCl (Reglan) 10 mg IVP Q6 PRN PRN Reason: Nausea/Vomiting Last Admin: 06/08/18 04:20 Dose: 10 mg Metoprolol Succinate (Toprol Xl) 50 mg PO DAILY [facility] Ondansetron HCl (Zofran Inj) 4 mg IVP Q6H PRN PRN Reason: Nausea/Vomiting Last Admin: 06/07/18 08:33 Dose: 4 mg Ondansetron HCl (Zofran Inj) 4 mg IVP Q6 [facility] Last Admin: 06/11/18 04:37 Dose: Not Given Pantoprazole Sodium (Protonix Inj) 40 mg IVP Q12 [facility] Last Admin: 06/10/18 21:32 Dose: 40 mg Vitamin B Complex/Vit C/Folic Acid (Nephro-Elsa) 1 tab PO DAILY [facility] Last Admin: 06/10/18 09:14 Dose: 1 tab - Labs Labs: 06/10/18 05:10 06/10/18 05:10 PT 12.5 Seconds (9.8-13.1) 06/05/18 21:15 INR 1.1 (0.9-1.2) 06/05/18 21:15 APTT 33.3 Seconds (25.6-37.1) 06/05/18 21:15 - Constitutional Appears: Chronically Ill - Eye Exam Eye Exam: Normal appearance - Respiratory Exam Respiratory Exam: NORMAL BREATHING PATTERN. absent: Respiratory Distress Additional comments: good air entry - Cardiovascular Exam Cardiovascular Exam: REGULAR RHYTHM - GI/Abdominal Exam GI & Abdominal Exam: Soft, Normal Bowel Sounds - Extremities Exam Additional comments: s/p TMA LLE - Neurological Exam Neurological Exam: Alert, Awake Assessment and Plan - Assessment and Plan (Free Text) Assessment: 47 yo male with hx ESRD, DM2, HTN, HLD, gastroparesis admitted for vomitting; initially suspected upper GI bleed but since r/o; likely gastroparesis. Pt has acute on chronic renal failure; has been dialyzed this admission. Also has undergone lexiscan. Plan: - ESRD: Nephrology consult - pt had IJ placed, got dialyzed, renal function improved. Pending permanent access; vein mapping ordered. Continue medications as per nephro. - DM2: Likely gastroparesis, continue with zofran, reglan, protonix. Insulin coverage scale/hypoglycemia protocol - Cardio consult- Dr. Brunner, pending DAYSI today - HTN - resume home meds, additionally started on B anthony and statin - SCD for DVT ppx <Lake,Joel K - Last Filed: 06/12/18 20:08> Objective - Vital Signs/Intake and Output Vital Signs (last 24 hours): Temp Pulse Resp BP Pulse Ox 98.5 F 64 16 93/61 L 99 06/12/18 20:07 06/12/18 20:07 06/12/18 20:07 06/12/18 20:07 06/12/18 20:07 Intake and Output: 06/12/18 06/13/18 18:59 06:59 Intake Total 1340 Balance 1340 - Medications Medications: Current Medications Amlodipine Besylate (Norvasc) 10 mg PO DAILY [facility] Last Admin: 06/12/18 09:56 Dose: Not Given Atorvastatin Calcium (Lipitor) 40 mg PO HS [facility] Last Admin: 06/11/18 22:26 Dose: 40 mg Calcium Acetate (Phoslo) 667 mg PO WM@0900,1300,1700 [facility] Last Admin: 06/12/18 17:48 Dose: 667 mg Clonidine HCl (Catapres) 0.3 mg PO TID [facility] Last Admin: 06/12/18 17:45 Dose: 0.3 mg Ergocalciferol (Drisdol 50,000 Intl Units Cap) 1 cap PO Q7D [facility] Last Admin: 06/08/18 17:37 Dose: 1 cap Gabapentin (Neurontin) 100 mg PO TID [facility] Last Admin: 06/12/18 17:48 Dose: 100 mg Hydralazine HCl (Apresoline) 100 mg PO Q8 [facility] Last Admin: 06/12/18 17:43 Dose: 100 mg Iron Sucrose 100 mg/ Sodium (Chloride) 105 mls @ 105 mls/hr IVPB DAILY [facility] Stop: 06/17/18 09:59 Last Admin: 06/12/18 10:51 Dose: 105 mls/hr Dextrose/Sodium Chloride (Dextrose 5%/0.45% Ns 1000 Ml) 1,000 mls @ 60 mls/hr IV .[id number] [facility] Stop: 06/13/18 16:08 Insulin Human Lispro (Humalog) 0 units SC Q6H [facility] PRN Reason: Protocol Last Admin: 06/12/18 17:46 Dose: 1 u Losartan Potassium (Cozaar) 50 mg PO QPM [facility] Last Admin: 06/12/18 17:46 Dose: 50 mg Metoprolol Succinate (Toprol Xl) 50 mg PO DAILY [facility] Last Admin: 06/12/18 10:01 Dose: 50 mg Ondansetron HCl (Zofran Inj) 4 mg IVP Q6H PRN PRN Reason: Nausea/Vomiting Last Admin: 06/11/18 16:09 Dose: 4 mg Pantoprazole Sodium (Protonix Inj) 40 mg IVP Q12 [facility] Last Admin: 06/12/18 10:01 Dose: 40 mg Vitamin B Complex/Vit C/Folic Acid (Nephro-Elsa) 1 tab PO DAILY [facility] Last Admin: 06/12/18 09:23 Dose: Not Given - Labs Labs: 06/12/18 05:00 06/12/18 05:00 PT 12.4 Seconds (9.8-13.1) 06/12/18 05:00 INR 1.1 (0.9-1.2) 06/12/18 05:00 APTT 30.4 Seconds (25.6-37.1) 06/12/18 05:00 Assessment and Plan - Assessment and Plan (Free Text) Plan: Patient was personally seen and examined by me in rounds with residents. Available labs and diagnostic data reviewed. Case, Patient's condition and management plan discussed with residents in rounds. Agree with resident's progress note. Plan: As ordered.
[2018-06-11] MEDS ORDERED: Etomidate 20 mg/10ml Inj IV ONE (09:01)
[2018-06-11] MEDS ORDERED: Propofol 10 mg/ml Inj (20 ML) ONE (09:20)
[2018-06-11] MEDS ORDERED: ePHEDrine 50 mg/ml Inj ONE (09:29)
--- NOTE | 2018-06-11 10:18 | CP.PCM.PN ---
Subjective - Date & Time of Evaluation Date of Evaluation: 06/11/18 Time of Evaluation: 10:17 - Subjective Subjective: s/p DAYSI and stress resting images to be processed today Objective - Vital Signs/Intake and Output Vital Signs (last 24 hours): Temp Pulse Resp BP Pulse Ox 99.0 F 67 18 127/67 96 06/11/18 09:30 06/11/18 10:00 06/11/18 10:00 06/11/18 10:00 06/11/18 10:00 - Medications Medications: Current Medications Amlodipine Besylate (Norvasc) 10 mg PO DAILY [facility] Last Admin: 06/10/18 09:12 Dose: 10 mg Atorvastatin Calcium (Lipitor) 40 mg PO HS [facility] Calcium Acetate (Phoslo) 667 mg PO WM@0900,1300,1700 [facility] Last Admin: 06/10/18 17:40 Dose: 667 mg Clonidine HCl (Catapres) 0.3 mg PO TID [facility] Last Admin: 06/10/18 17:39 Dose: 0.3 mg Ergocalciferol (Drisdol 50,000 Intl Units Cap) 1 cap PO Q7D [facility] Last Admin: 06/08/18 17:37 Dose: 1 cap Gabapentin (Neurontin) 100 mg PO TID [facility] Last Admin: 06/10/18 17:40 Dose: 100 mg Hydralazine HCl (Apresoline) 100 mg PO Q8 [facility] Last Admin: 06/11/18 00:30 Dose: 100 mg Iron Sucrose 100 mg/ Sodium (Chloride) 105 mls @ 105 mls/hr IVPB DAILY [facility] Stop: 06/17/18 09:59 Last Admin: 06/10/18 15:29 Dose: 105 mls/hr Insulin Human Lispro (Humalog) 0 units SC Q6H [facility] PRN Reason: Protocol Last Admin: 06/11/18 05:52 Dose: Not Given Losartan Potassium (Cozaar) 50 mg PO QPM [facility] Last Admin: 06/10/18 17:40 Dose: 50 mg Metoclopramide HCl (Reglan) 10 mg IVP Q6 PRN PRN Reason: Nausea/Vomiting Last Admin: 06/08/18 04:20 Dose: 10 mg Metoprolol Succinate (Toprol Xl) 50 mg PO DAILY [facility] Ondansetron HCl (Zofran Inj) 4 mg IVP Q6H PRN PRN Reason: Nausea/Vomiting Last Admin: 06/07/18 08:33 Dose: 4 mg Ondansetron HCl (Zofran Inj) 4 mg IVP Q6 [facility] Last Admin: 06/11/18 04:37 Dose: Not Given Pantoprazole Sodium (Protonix Inj) 40 mg IVP Q12 [facility] Last Admin: 06/10/18 21:32 Dose: 40 mg Vitamin B Complex/Vit C/Folic Acid (Nephro-Elsa) 1 tab PO DAILY [facility] Last Admin: 06/10/18 09:14 Dose: 1 tab - Labs Labs: 06/10/18 05:10 06/10/18 05:10 PT 12.5 Seconds (9.8-13.1) 06/05/18 21:15 INR 1.1 (0.9-1.2) 06/05/18 21:15 APTT 33.3 Seconds (25.6-37.1) 06/05/18 21:15 - Constitutional Appears: Well - Head Exam Head Exam: ATRAUMATIC, NORMAL INSPECTION, NORMOCEPHALIC - Eye Exam Eye Exam: EOMI, Normal appearance, PERRL Pupil Exam: NORMAL ACCOMODATION, PERRL - ENT Exam ENT Exam: Mucous Membranes Moist, Normal Exam - Neck Exam Neck Exam: Full ROM, Normal Inspection. absent: Lymphadenopathy - Respiratory Exam Respiratory Exam: Clear to Ausculation Bilateral, NORMAL BREATHING PATTERN - Cardiovascular Exam Cardiovascular Exam: REGULAR RHYTHM, +S1, +S2. absent: Murmur - GI/Abdominal Exam GI & Abdominal Exam: Soft, Normal Bowel Sounds. absent: Tenderness - Extremities Exam Extremities Exam: Full ROM, Normal Capillary Refill, Normal Inspection. absent : Joint Swelling, Pedal Edema - Back Exam Back Exam: NORMAL INSPECTION - Neurological Exam Neurological Exam: Alert, Awake, CN II-XII Intact, Normal Gait, Oriented x3 - Psychiatric Exam Psychiatric exam: Normal Affect, Normal Mood - Skin Skin Exam: Dry, Intact, Normal Color, Warm Assessment and Plan (1) Elevated troponin Status: Acute (2) Endocarditis Status: Acute (3) Abdominal pain Status: Acute (4) Chronic kidney disease, stage V Status: Acute (5) Hypertensive CKD (chronic kidney disease) Status: Acute (6) HTN (hypertension) Status: Acute
[2018-06-11] MEDS ORDERED: Sodium Chloride 0.9% 1,000 ML IV ONE (10:30)
--- NOTE | 2018-06-11 12:29 | CP.PCM.PN ---
Subjective - Date & Time of Evaluation Date of Evaluation: 06/11/18 Time of Evaluation: 12:27 - Subjective Subjective: Vascular Surgery Dr. Kulkarni Pt S&E @bedside. NAEO. pt has no complaints. NPO for nuclear stress test this afternoon. Pt scheduled for OR tomorrow for AVF. Objective - Vital Signs/Intake and Output Vital Signs (last 24 hours): Temp Pulse Resp BP Pulse Ox 99.0 F 68 18 122/83 96 06/11/18 09:30 06/11/18 10:45 06/11/18 10:45 06/11/18 10:45 06/11/18 10:45 Intake and Output: 06/11/18 06/11/18 06:59 18:59 Intake Total 100 Balance 100 - Medications Medications: Current Medications Amlodipine Besylate (Norvasc) 10 mg PO DAILY [facility] Last Admin: 06/10/18 09:12 Dose: 10 mg Atorvastatin Calcium (Lipitor) 40 mg PO HS [facility] Calcium Acetate (Phoslo) 667 mg PO WM@0900,1300,1700 [facility] Last Admin: 06/11/18 12:25 Dose: Not Given Clonidine HCl (Catapres) 0.3 mg PO TID [facility] Last Admin: 06/11/18 12:24 Dose: Not Given Ergocalciferol (Drisdol 50,000 Intl Units Cap) 1 cap PO Q7D [facility] Last Admin: 06/08/18 17:37 Dose: 1 cap Gabapentin (Neurontin) 100 mg PO TID [facility] Last Admin: 06/11/18 12:24 Dose: Not Given Hydralazine HCl (Apresoline) 100 mg PO Q8 [facility] Last Admin: 06/11/18 00:30 Dose: 100 mg Iron Sucrose 100 mg/ Sodium (Chloride) 105 mls @ 105 mls/hr IVPB DAILY [facility] Stop: 06/17/18 09:59 Last Admin: 06/10/18 15:29 Dose: 105 mls/hr Insulin Human Lispro (Humalog) 0 units SC Q6H [facility] PRN Reason: Protocol Last Admin: 06/11/18 05:52 Dose: Not Given Losartan Potassium (Cozaar) 50 mg PO QPM [facility] Last Admin: 06/10/18 17:40 Dose: 50 mg Metoclopramide HCl (Reglan) 10 mg IVP Q6 PRN PRN Reason: Nausea/Vomiting Last Admin: 06/08/18 04:20 Dose: 10 mg Metoprolol Succinate (Toprol Xl) 50 mg PO DAILY [facility] Ondansetron HCl (Zofran Inj) 4 mg IVP Q6H PRN PRN Reason: Nausea/Vomiting Last Admin: 06/07/18 08:33 Dose: 4 mg Ondansetron HCl (Zofran Inj) 4 mg IVP Q6 [facility] Last Admin: 06/11/18 12:26 Dose: Not Given Pantoprazole Sodium (Protonix Inj) 40 mg IVP Q12 [facility] Last Admin: 06/10/18 21:32 Dose: 40 mg Vitamin B Complex/Vit C/Folic Acid (Nephro-Elsa) 1 tab PO DAILY [facility] Last Admin: 06/10/18 09:14 Dose: 1 tab - Labs Labs: 06/10/18 05:10 06/10/18 05:10 PT 12.5 Seconds (9.8-13.1) 06/05/18 21:15 INR 1.1 (0.9-1.2) 06/05/18 21:15 APTT 33.3 Seconds (25.6-37.1) 06/05/18 21:15 - Constitutional Appears: Non-toxic, No Acute Distress - Head Exam Head Exam: NORMAL INSPECTION - Eye Exam Eye Exam: Normal appearance - ENT Exam ENT Exam: Mucous Membranes Moist - Respiratory Exam Respiratory Exam: NORMAL BREATHING PATTERN. absent: Accessory Muscle Use, Respiratory Distress - Cardiovascular Exam Cardiovascular Exam: REGULAR RHYTHM. absent: Bradycardia, Tachycardia - GI/Abdominal Exam GI & Abdominal Exam: Soft. absent: Distended, Tenderness, Rebound - Extremities Exam Additional comments: LUE w/ palpable antecubital pulse but no thrill scar present from previous AVF - Neurological Exam Neurological Exam: Alert, Awake, Oriented x3 - Psychiatric Exam Psychiatric exam: Normal Affect, Normal Mood - Skin Skin Exam: Dry, Intact, Normal Color, Warm Assessment and Plan - Assessment and Plan (Free Text) Assessment: 47 y/o M w/ ESRD now requiring HD, consulted for new AVF Plan: - f/u vein mapping - NPO after midnight - cont HD per Nephro - f/u cardiac clearance - plan for OR tomorrow, 06/12, for AVF Further recs per Dr. Shad Lucero DO PGY3
--- NOTE | 2018-06-11 14:02 | CP.PCM.PN ---
Subjective - Date & Time of Evaluation Date of Evaluation: 06/11/18 Time of Evaluation: 14:00 - Subjective Subjective: No significant changes no chest pain Patient is going for multiple testing including DAYSI and also the rest of the stress test Objective - Vital Signs/Intake and Output Vital Signs (last 24 hours): Temp Pulse Resp BP Pulse Ox 99.0 F 68 18 122/83 96 06/11/18 09:30 06/11/18 10:45 06/11/18 10:45 06/11/18 10:45 06/11/18 10:45 Intake and Output: 06/11/18 06/11/18 06:59 18:59 Intake Total 100 Balance 100 - Medications Medications: Current Medications Amlodipine Besylate (Norvasc) 10 mg PO DAILY [facility] Last Admin: 06/10/18 09:12 Dose: 10 mg Atorvastatin Calcium (Lipitor) 40 mg PO HS [facility] Calcium Acetate (Phoslo) 667 mg PO WM@0900,1300,1700 [facility] Last Admin: 06/11/18 12:25 Dose: Not Given Clonidine HCl (Catapres) 0.3 mg PO TID [facility] Last Admin: 06/11/18 12:24 Dose: Not Given Ergocalciferol (Drisdol 50,000 Intl Units Cap) 1 cap PO Q7D [facility] Last Admin: 06/08/18 17:37 Dose: 1 cap Gabapentin (Neurontin) 100 mg PO TID [facility] Last Admin: 06/11/18 12:24 Dose: Not Given Hydralazine HCl (Apresoline) 100 mg PO Q8 [facility] Last Admin: 06/11/18 00:30 Dose: 100 mg Iron Sucrose 100 mg/ Sodium (Chloride) 105 mls @ 105 mls/hr IVPB DAILY [facility] Stop: 06/17/18 09:59 Last Admin: 06/10/18 15:29 Dose: 105 mls/hr Insulin Human Lispro (Humalog) 0 units SC Q6H [facility] PRN Reason: Protocol Last Admin: 06/11/18 12:34 Dose: Not Given Losartan Potassium (Cozaar) 50 mg PO QPM [facility] Last Admin: 06/10/18 17:40 Dose: 50 mg Metoclopramide HCl (Reglan) 10 mg IVP Q6 PRN PRN Reason: Nausea/Vomiting Last Admin: 06/08/18 04:20 Dose: 10 mg Metoprolol Succinate (Toprol Xl) 50 mg PO DAILY [facility] Ondansetron HCl (Zofran Inj) 4 mg IVP Q6H PRN PRN Reason: Nausea/Vomiting Last Admin: 06/07/18 08:33 Dose: 4 mg Ondansetron HCl (Zofran Inj) 4 mg IVP Q6 [facility] Last Admin: 06/11/18 12:26 Dose: Not Given Pantoprazole Sodium (Protonix Inj) 40 mg IVP Q12 [facility] Last Admin: 06/10/18 21:32 Dose: 40 mg Vitamin B Complex/Vit C/Folic Acid (Nephro-Elsa) 1 tab PO DAILY [facility] Last Admin: 06/10/18 09:14 Dose: 1 tab - Labs Labs: 06/10/18 05:10 06/10/18 05:10 PT 12.5 Seconds (9.8-13.1) 06/05/18 21:15 INR 1.1 (0.9-1.2) 06/05/18 21:15 APTT 33.3 Seconds (25.6-37.1) 06/05/18 21:15 - Constitutional Appears: No Acute Distress - ENT Exam ENT Exam: Mucous Membranes Moist - Neck Exam Neck Exam: absent: Lymphadenopathy - Respiratory Exam Respiratory Exam: NORMAL BREATHING PATTERN. absent: Chest Wall Tenderness - Cardiovascular Exam Cardiovascular Exam: absent: Rubs - GI/Abdominal Exam GI & Abdominal Exam: Soft, Normal Bowel Sounds - Extremities Exam Extremities Exam: absent: Calf Tenderness - Back Exam Back Exam: absent: CVA tenderness (L), CVA tenderness (R) - Neurological Exam Neurological Exam: Alert - Psychiatric Exam Psychiatric exam: Normal Affect - Skin Skin Exam: absent: Cyanosis Assessment and Plan (1) Chronic kidney disease, stage V Assessment & Plan: Assessment & Plan: Diabetic chronic Kidney Disease (E11.22) Hypertensive Chronic Kidney Disease (I12.0) New onset End stage renal disease (N18.6) dependence on hemodialysis (Z99.2) via shiley Anemia (D64.9), Hyperphosphatemia (E83.39), Secondary Hyperparathyroidism (E21.1 ), HTN (I12.0) Hypokalemia Plan: HD today pt receiving tte, will f/u on result Continue with Nephrovite 1 tab/day. PRBC as needed for anemia. not on YURIY with dialysis as hgb stable Continue with phos binders on vit d check pth bp well controlled on ARB Glycemic control, Dialysis consistent diet recc placement of permacath and if possible avf prior to d/c vascular called for a v fistula SW for placement in [facility] Status: Acute (2) GI bleed Status: Acute (3) Gastroparesis Status: Acute
[2018-06-11] MEDS: Multivitamin Vitamin B Complex (Nephro-Vite) Tab PO SCH (16:05)
[2018-06-11] MEDS: Metoprolol Succinate 50 mg XL Tab PO SCH (16:08)
[2018-06-11] MEDS ORDERED: Dextrose 5%/0.45% NS 1,000 ML IV SCH (23:50)
[2018-06-12 05:43] LABS: HEMOGLOBIN 10.1 g/dL (12.0-18.0); MEAN CELL VOLUME 78.2 fl (80.0-94.0); MEAN CORPUSCULAR HEMOGLOBIN 25.9 pg (27.0-31.0); MEAN CORPUSCULAR HGB CONC 33.1 g/dL (33.0-37.0); RBC 3.89 Mil/uL (4.40-5.90); RED CELL DISTRIBUTION WIDTH 13.3 % (11.5-14.5); WHITE BLOOD COUNT 11.8 K/uL (4.8-10.8)
[2018-06-12] MEDS: Insulin Lispro (humaLOG) 100 Units/ml Inj SC SCH ×4 (06:03→22:52)
[2018-06-12 06:11] LABS: INR 1.1 (0.9-1.2); PARTIAL THROMBOPLASTIN TIME 30.4 Seconds (25.6-37.1); PROTHROMBIN TIME 12.4 Seconds (9.8-13.1)
[2018-06-12 06:21] LABS: CALCIUM 8.9 mg/dL (8.4-10.2)
--- NOTE | 2018-06-12 09:06 | CP.PCM.PN ---
Subjective - Date & Time of Evaluation Date of Evaluation: 06/12/18 Time of Evaluation: 09:06 - Subjective Subjective: Patient M bed awake and conscious Patient feeling much better No nausea no vomiting No chest pain Objective - Vital Signs/Intake and Output Vital Signs (last 24 hours): Temp Pulse Resp BP Pulse Ox 98.8 F 69 18 151/89 H 97 06/12/18 08:00 06/12/18 08:00 06/12/18 08:00 06/12/18 08:00 06/12/18 08:00 - Medications Medications: Current Medications Amlodipine Besylate (Norvasc) 10 mg PO DAILY [facility] Last Admin: 06/11/18 16:06 Dose: 10 mg Atorvastatin Calcium (Lipitor) 40 mg PO HS [facility] Last Admin: 06/11/18 22:26 Dose: 40 mg Calcium Acetate (Phoslo) 667 mg PO WM@0900,1300,1700 [facility] Last Admin: 06/11/18 16:05 Dose: 667 mg Clonidine HCl (Catapres) 0.3 mg PO TID [facility] Last Admin: 06/11/18 16:07 Dose: 0.3 mg Ergocalciferol (Drisdol 50,000 Intl Units Cap) 1 cap PO Q7D [facility] Last Admin: 06/08/18 17:37 Dose: 1 cap Gabapentin (Neurontin) 100 mg PO TID [facility] Last Admin: 06/11/18 16:04 Dose: 100 mg Hydralazine HCl (Apresoline) 100 mg PO Q8 [facility] Last Admin: 06/12/18 01:00 Dose: Not Given Iron Sucrose 100 mg/ Sodium (Chloride) 105 mls @ 105 mls/hr IVPB DAILY [facility] Stop: 06/17/18 09:59 Last Admin: 06/11/18 15:06 Dose: 105 mls/hr Dextrose/Sodium Chloride (Dextrose 5%/0.45% Ns 1000 Ml) 1,000 mls @ 60 mls/hr IV .[id number] [facility] Stop: 06/12/18 18:20 Last Admin: 06/12/18 00:42 Dose: 60 mls/hr Insulin Human Lispro (Humalog) 0 units SC Q6H [facility] PRN Reason: Protocol Last Admin: 06/12/18 06:03 Dose: 1 u Losartan Potassium (Cozaar) 50 mg PO QPM [facility] Last Admin: 06/11/18 17:47 Dose: 50 mg Metoclopramide HCl (Reglan) 10 mg IVP Q6 PRN PRN Reason: Nausea/Vomiting Last Admin: 06/08/18 04:20 Dose: 10 mg Metoprolol Succinate (Toprol Xl) 50 mg PO DAILY [facility] Last Admin: 06/11/18 16:08 Dose: 50 mg Ondansetron HCl (Zofran Inj) 4 mg IVP Q6H PRN PRN Reason: Nausea/Vomiting Last Admin: 06/11/18 16:09 Dose: 4 mg Ondansetron HCl (Zofran Inj) 4 mg IVP Q6 [facility] Last Admin: 06/12/18 05:14 Dose: 4 mg Pantoprazole Sodium (Protonix Inj) 40 mg IVP Q12 [facility] Last Admin: 06/11/18 22:26 Dose: 40 mg Vitamin B Complex/Vit C/Folic Acid (Nephro-Elsa) 1 tab PO DAILY [facility] Last Admin: 06/11/18 16:05 Dose: 1 tab - Labs Labs: 06/12/18 05:00 06/12/18 05:00 PT 12.4 Seconds (9.8-13.1) 06/12/18 05:00 INR 1.1 (0.9-1.2) 06/12/18 05:00 APTT 30.4 Seconds (25.6-37.1) 06/12/18 05:00 - Constitutional Appears: No Acute Distress - ENT Exam ENT Exam: Mucous Membranes Moist - Neck Exam Neck Exam: absent: Lymphadenopathy - Respiratory Exam Respiratory Exam: NORMAL BREATHING PATTERN. absent: Chest Wall Tenderness - Cardiovascular Exam Cardiovascular Exam: absent: Gallop, JVD, Rubs - GI/Abdominal Exam GI & Abdominal Exam: Soft, Normal Bowel Sounds - Extremities Exam Extremities Exam: absent: Calf Tenderness - Back Exam Back Exam: absent: CVA tenderness (L), CVA tenderness (R) - Neurological Exam Neurological Exam: Alert - Psychiatric Exam Psychiatric exam: Normal Affect - Skin Skin Exam: absent: Cyanosis Assessment and Plan (1) Chronic kidney disease, stage V Assessment & Plan: Assessment & Plan: Diabetic chronic Kidney Disease (E11.22) Hypertensive Chronic Kidney Disease (I12.0) New onset End stage renal disease (N18.6) dependence on hemodialysis (Z99.2) via shiley Anemia (D64.9), Hyperphosphatemia (E83.39), Secondary Hyperparathyroidism (E21.1), HTN (I12.0) the plan Continue hemodialysis as scheduled on Saturday. Patient completed hemodialysis yesterday. Patient is scheduled to have AV fistula Arrangement for outpatient dialysis unit at [facility] Cardiology clearance Status: Acute (2) GI bleed Status: Acute (3) Gastroparesis Status: Acute
[2018-06-12] MEDS: Multivitamin Vitamin B Complex (Nephro-Vite) Tab PO SCH (09:23)
--- NOTE | 2018-06-12 09:35 | CP.PCM.PN ---
Subjective - Date & Time of Evaluation Date of Evaluation: 06/12/18 Time of Evaluation: 09:33 - Subjective Subjective: no overnight events Objective - Vital Signs/Intake and Output Vital Signs (last 24 hours): Temp Pulse Resp BP Pulse Ox 98.8 F 69 18 151/89 H 97 06/12/18 08:00 06/12/18 08:00 06/12/18 08:00 06/12/18 08:00 06/12/18 08:00 - Medications Medications: Current Medications Amlodipine Besylate (Norvasc) 10 mg PO DAILY [facility] Last Admin: 06/11/18 16:06 Dose: 10 mg Atorvastatin Calcium (Lipitor) 40 mg PO HS [facility] Last Admin: 06/11/18 22:26 Dose: 40 mg Calcium Acetate (Phoslo) 667 mg PO WM@0900,1300,1700 [facility] Last Admin: 06/11/18 16:05 Dose: 667 mg Clonidine HCl (Catapres) 0.3 mg PO TID [facility] Last Admin: 06/11/18 16:07 Dose: 0.3 mg Ergocalciferol (Drisdol 50,000 Intl Units Cap) 1 cap PO Q7D [facility] Last Admin: 06/08/18 17:37 Dose: 1 cap Gabapentin (Neurontin) 100 mg PO TID [facility] Last Admin: 06/11/18 16:04 Dose: 100 mg Hydralazine HCl (Apresoline) 100 mg PO Q8 [facility] Last Admin: 06/12/18 01:00 Dose: Not Given Iron Sucrose 100 mg/ Sodium (Chloride) 105 mls @ 105 mls/hr IVPB DAILY [facility] Stop: 06/17/18 09:59 Last Admin: 06/11/18 15:06 Dose: 105 mls/hr Dextrose/Sodium Chloride (Dextrose 5%/0.45% Ns 1000 Ml) 1,000 mls @ 60 mls/hr IV .[id number] [facility] Stop: 06/12/18 18:20 Last Admin: 06/12/18 00:42 Dose: 60 mls/hr Insulin Human Lispro (Humalog) 0 units SC Q6H [facility] PRN Reason: Protocol Last Admin: 06/12/18 06:03 Dose: 1 u Losartan Potassium (Cozaar) 50 mg PO QPM [facility] Last Admin: 06/11/18 17:47 Dose: 50 mg Metoclopramide HCl (Reglan) 10 mg IVP Q6 PRN PRN Reason: Nausea/Vomiting Last Admin: 06/08/18 04:20 Dose: 10 mg Metoprolol Succinate (Toprol Xl) 50 mg PO DAILY [facility] Last Admin: 06/11/18 16:08 Dose: 50 mg Ondansetron HCl (Zofran Inj) 4 mg IVP Q6H PRN PRN Reason: Nausea/Vomiting Last Admin: 06/11/18 16:09 Dose: 4 mg Ondansetron HCl (Zofran Inj) 4 mg IVP Q6 [facility] Last Admin: 06/12/18 05:14 Dose: 4 mg Pantoprazole Sodium (Protonix Inj) 40 mg IVP Q12 [facility] Last Admin: 06/11/18 22:26 Dose: 40 mg Vitamin B Complex/Vit C/Folic Acid (Nephro-Elsa) 1 tab PO DAILY [facility] Last Admin: 06/11/18 16:05 Dose: 1 tab - Labs Labs: 06/12/18 05:00 06/12/18 05:00 PT 12.4 Seconds (9.8-13.1) 06/12/18 05:00 INR 1.1 (0.9-1.2) 06/12/18 05:00 APTT 30.4 Seconds (25.6-37.1) 06/12/18 05:00 - Respiratory Exam Respiratory Exam: NORMAL BREATHING PATTERN - Cardiovascular Exam Cardiovascular Exam: REGULAR RHYTHM - GI/Abdominal Exam GI & Abdominal Exam: Soft, Normal Bowel Sounds Assessment and Plan - Assessment and Plan (Free Text) Assessment: 47 yo male with vomitting no new G\I complaints cont ppi orally
[2018-06-12] MEDS: Metoprolol Succinate 50 mg XL Tab PO SCH (10:01)
--- NOTE | 2018-06-12 13:06 | US ---
Date of service: 06/11/2018 PROCEDURE: Upper Extremity Venous Duplex Exam HISTORY: to plan AVF PRIORS: None. TECHNIQUE: Bilateral upper extremity, internal jugular, subclavian, axillary, brachial, ulnar, radial, basilic and upper cephalic veins were evaluated. Flow was assessed with color Doppler, compressibility, assessment of phasic flow and augmentation response. Report prepared by photo technologist. FINDINGS: RIGHT: 1. Internal Jugular Vein: Compressibility - Fully compressible: Thrombus - None : Flow - Phasic 2. Subclavian Vein:Compressibility - Fully compressible: Thrombus - None : Flow - Phasic 3. Axillary Vein: Compressibility - Fully compressible: Thrombus - None 4. Brachial Vein: Compressibility - Fully compressible: Thrombus - None 5. Ulnar Vein:Compressibility - Fully compressible: Thrombus - None 6. Radial Vein:Compressibility - Fully compressible: Thrombus - None 7. Cephalic Vein: Compressibility - Fully compressible: thrombus - None 7.1. Proximal Diameter: 0.47cm. Mid Diameter:0.30cm. Distal Diameter: 0.41cm 8. Basilic Vein:Compressibility - Fully compressible: thrombus - None 8.1. Proximal diameter 0.73cm. Mid Diameter:0.85cm. Distal Diameter: 0.48cm. LEFT: 1. Internal Jugular Vein: Compressibility - Fully compressible: Thrombus - None : Flow - Phasic 2. Subclavian Vein:Compressibility - Fully compressible: Thrombus - None : Flow - Phasic 3. Axillary Vein: Compressibility - Fully compressible: Thrombus - None 4. Brachial Vein: Compressibility - Fully compressible: Thrombus - None 5. Ulnar Vein:Compressibility - Fully compressible: Thrombus - None 6. Radial Vein:Compressibility - Fully compressible: Thrombus - None 7. Cephalic Vein: Not visualized. 8. Basilic Vein:Compressibility - Fully compressible: thrombus - None 8.1. Proximal Diameter: 0.94cm. Mid Diameter:0.76cm. Distal Diameter: 0.65cm. OTHER FINDINGS: Right: None. Left: None. IMPRESSION: Right: Diameter measurements of the right cephalic vein is measured between 0.30 cm and 0.47 cm and the right basilic vein is measured between 0.48 cm and 0.73 cm. Left: Diameter measurements of the left cephalic was not visualize. The left Basilic vein is measured between 0.65cm and 0.94cm.
--- NOTE | 2018-06-12 14:12 | PN ---
DATE: 06/12/2018 SUBJECTIVE: The patient seen and examined. Interim events noted. Consults noted and appreciated. Vascular Surgery and Nephrology followup and intervention noted and appreciated. Cardiology followup noted and appreciated. The patient remains in progressive care unit, on telemetry monitoring, tentatively scheduled for a fistula today. The patient feels okay. Denies any chest pain. No shortness of breath. PHYSICAL EXAMINATION: GENERAL: The patient is in no acute distress. VITAL SIGNS: Stable. HEART: S1 and S2, normal and regular. LUNGS: Good bilateral air exchange. ABDOMEN: Soft, nontender. EXTREMITIES: No edema. No calf swelling. No tenderness. No acute ischemia. INVENTORY CHECKER: Exam is essentially unchanged. DIAGNOSTIC DATA: Available diagnostic data reviewed. Telemetry monitoring does not reveal significant arrhythmias. ASSESSMENT AND PLAN: Overall, the patient is medically stable. The patient is in optimal condition for proposed surgery. There is no medical contraindication. Plan as ordered. Joel Lake MD
[2018-06-13] MEDS ORDERED: Dextrose 5%/0.45% NS 1,000 ML IV SCH (00:01)
[2018-06-13] MEDS: Insulin Lispro (humaLOG) 100 Units/ml Inj SC SCH ×4 (05:33→22:58)
[2018-06-13 05:43] LABS: MEAN CELL VOLUME 78.4 fl (80.0-94.0); MEAN CORPUSCULAR HEMOGLOBIN 25.5 pg (27.0-31.0); MEAN CORPUSCULAR HGB CONC 32.5 g/dL (33.0-37.0); RBC 3.93 Mil/uL (4.40-5.90); RED CELL DISTRIBUTION WIDTH 13.6 % (11.5-14.5); WHITE BLOOD COUNT 12.1 K/uL (4.8-10.8)
[2018-06-13 06:26] LABS: ALBUMIN 3.5 g/dL (3.5-5.0); CALCIUM 8.8 mg/dL (8.4-10.2)
[2018-06-13] MEDS ORDERED: Succinylcholine 200 mg/10 ml Inj IV ONE (07:24)
[2018-06-13] MEDS ORDERED: Propofol 10 mg/ml Inj (20 ML) ONE (07:24)
[2018-06-13] MEDS ORDERED: Lidocaine 4% (Laryng-O-Jet) Kit MM ONE (07:24)
[2018-06-13] MEDS ORDERED: Etomidate 20 mg/10ml Inj IV ONE (07:25)
[2018-06-13] MEDS ORDERED: Phenylephrine 10 mg/ml Inj ONE (07:29)
[2018-06-13] MEDS ORDERED: Neostigmine 1:1000 (1 mg/ml) Inj ONE (07:29)
--- NOTE | 2018-06-13 08:07 | CP.PCM.PN ---
Subjective - Date & Time of Evaluation Date of Evaluation: 06/13/18 Time of Evaluation: 08:06 - Subjective Subjective: patient is awake and conscious not in acute distress feeling much better no nausea no vomiting Objective - Vital Signs/Intake and Output Vital Signs (last 24 hours): Temp Pulse Resp BP Pulse Ox 98.2 F 66 18 102/65 98 06/13/18 05:00 06/13/18 05:00 06/13/18 05:00 06/13/18 05:00 06/13/18 05:00 Intake and Output: 06/13/18 06/13/18 06:59 18:59 Intake Total 300 Balance 300 - Medications Medications: Current Medications Amlodipine Besylate (Norvasc) 10 mg PO DAILY [facility] Last Admin: 06/12/18 09:56 Dose: Not Given Atorvastatin Calcium (Lipitor) 40 mg PO HS [facility] Last Admin: 06/12/18 21:55 Dose: 40 mg Calcium Acetate (Phoslo) 667 mg PO WM@0900,1300,1700 [facility] Last Admin: 06/12/18 17:48 Dose: 667 mg Clonidine HCl (Catapres) 0.3 mg PO TID [facility] Last Admin: 06/12/18 17:45 Dose: 0.3 mg Ergocalciferol (Drisdol 50,000 Intl Units Cap) 1 cap PO Q7D [facility] Last Admin: 06/08/18 17:37 Dose: 1 cap Gabapentin (Neurontin) 100 mg PO TID [facility] Last Admin: 06/12/18 17:48 Dose: 100 mg Hydralazine HCl (Apresoline) 100 mg PO Q8 [facility] Last Admin: 06/13/18 00:28 Dose: 100 mg Iron Sucrose 100 mg/ Sodium (Chloride) 105 mls @ 105 mls/hr IVPB DAILY [facility] Stop: 06/17/18 09:59 Last Admin: 06/12/18 10:51 Dose: 105 mls/hr Dextrose/Sodium Chloride (Dextrose 5%/0.45% Ns 1000 Ml) 1,000 mls @ 60 mls/hr IV .[id number] [facility] Stop: 06/13/18 16:08 Last Admin: 06/13/18 00:28 Dose: 60 mls/hr Insulin Human Lispro (Humalog) 0 units SC Q6H [facility] PRN Reason: Protocol Last Admin: 06/13/18 05:33 Dose: Not Given Losartan Potassium (Cozaar) 50 mg PO QPM [facility] Last Admin: 06/12/18 17:46 Dose: 50 mg Metoprolol Succinate (Toprol Xl) 50 mg PO DAILY [facility] Last Admin: 06/12/18 10:01 Dose: 50 mg Ondansetron HCl (Zofran Inj) 4 mg IVP Q6H PRN PRN Reason: Nausea/Vomiting Last Admin: 06/11/18 16:09 Dose: 4 mg Pantoprazole Sodium (Protonix Inj) 40 mg IVP Q12 [facility] Last Admin: 06/12/18 21:55 Dose: 40 mg Vitamin B Complex/Vit C/Folic Acid (Nephro-Elsa) 1 tab PO DAILY [facility] Last Admin: 06/12/18 09:23 Dose: Not Given - Labs Labs: 06/13/18 05:25 06/13/18 05:25 PT 12.4 Seconds (9.8-13.1) 06/12/18 05:00 INR 1.1 (0.9-1.2) 06/12/18 05:00 APTT 30.4 Seconds (25.6-37.1) 06/12/18 05:00 - Constitutional Appears: No Acute Distress - ENT Exam ENT Exam: Mucous Membranes Moist - Neck Exam Neck Exam: absent: Lymphadenopathy - Respiratory Exam Respiratory Exam: NORMAL BREATHING PATTERN. absent: Rales - Cardiovascular Exam Cardiovascular Exam: absent: JVD, Rubs - GI/Abdominal Exam GI & Abdominal Exam: Soft, Normal Bowel Sounds - Extremities Exam Extremities Exam: absent: Calf Tenderness - Back Exam Back Exam: absent: CVA tenderness (L), CVA tenderness (R) - Neurological Exam Neurological Exam: Alert - Psychiatric Exam Psychiatric exam: Normal Affect Assessment and Plan (1) Chronic kidney disease, stage V Assessment & Plan: Diabetic chronic Kidney Disease (E11.22) Hypertensive Chronic Kidney Disease (I12.0) New onset End stage renal disease (N18.6) dependence on hemodialysis (Z99.2) via shiley Anemia (D64.9), Hyperphosphatemia (E83.39), Secondary Hyperparathyroidism (E21.1 ), HTN (I12.0) Hypokalemia my understanding patient is go on for a new AV fistula today and also patient scheduled to have dialysisthis afternoon after the AV shunt surgery Status: Acute (2) GI bleed Status: Acute (3) Gastroparesis Status: Acute
[2018-06-13] MEDS ORDERED: SULFACETAMIDE 10% OS SCH (08:12)
[2018-06-13] MEDS ORDERED: Erythromycin 0.5% Ophth Oint 1 APPLIC/3.5 G OU ONE (08:13)
[2018-06-13] MEDS ORDERED: Lactated Ringer's 500 ML IV ONE (08:25)
[2018-06-13] MEDS ORDERED: Midazolam 2 MG/2 ML VIAL ONE (08:36)
[2018-06-13] MEDS ORDERED: Erythromycin 0.5% Ophth Oint 1 APPLIC/G OU ONE (08:45)
[2018-06-13] MEDS ORDERED: Rocuronium 10 mg/ml (5 ml) ONE (08:54)
[2018-06-13] MEDS: Multivitamin Vitamin B Complex (Nephro-Vite) Tab PO SCH (09:01)
[2018-06-13] MEDS: Metoprolol Succinate 50 mg XL Tab PO SCH (09:02)
[2018-06-13] MEDS ORDERED: Bupivacaine HCl 0.5% PF (10 ml) Inj ONE (10:37)
[2018-06-13] MEDS ORDERED: Bupivacaine HCl 0.5% PF (10 ml) Inj IJ ONE (10:40)
[2018-06-13] MEDS ORDERED: Oxycodone/Acetaminophen 5/325 mg Tab PO PRN (11:03)
[2018-06-13] MEDS ORDERED: HYDROmorphone 0.5 mg/0.5 ml ISec IVP PRN (11:04)
--- NOTE | 2018-06-13 11:20 | PCM.SURG1 ---
Surgeon's Initial Post Op Note - Surgeon's Notes Surgeon: Dr. [facility] Custodian: Rasheeda Humphreys PGY3 Type of Anesthesia: General Endo, Local Anesthesia Administered By: Mar Pre-Operative Diagnosis: CKD needing HD Operative Findings: R good basillic vein Post-Operative Diagnosis: SAme Operation Performed: R brachio-basilic AVF creation Specimen/Specimens Removed: none Estimated Blood Loss: EBL {In ML}: 30 Blood Products Given: N/A Drains Used: No Drains Post-Op Condition: Good Date of Surgery/Procedure: 06/13/18 Time of Surgery/Procedure: 11:
--- NOTE | 2018-06-13 13:55 | CP.PCM.PN ---
<Yana Gibbons - Last Filed: 06/13/18 15:10> Subjective - Date & Time of Evaluation Date of Evaluation: 06/13/18 Time of Evaluation: 15:00 - Subjective Subjective: Pt seen this am and at 3 pm. Called to OR holding this morning around 8 am due to patient having redness/ irritation to L eye; pt in OR holding for AV fistula creation. Pt states eye has been bothering him x2 days, but did not offer complaint of itchiness in eye yesterday; no redness/irritation observed yesterday. No loss/change in vision, no blurry vision. Pt states he kept rubbing eye all night. Pt re-eval at 3 pm when back from AV fistula - verbalizes that redness and itchiness improved. No complaints at this time; appears to have tolerated procedure well. Objective - Vital Signs/Intake and Output Vital Signs (last 24 hours): Temp Pulse Resp BP Pulse Ox 97.6 F 77 18 138/88 96 06/13/18 10:55 06/13/18 12:40 06/13/18 12:40 06/13/18 12:40 06/13/18 12:40 Intake and Output: 06/13/18 06/13/18 06:59 18:59 Intake Total 300 10 Balance 300 10 - Medications Medications: Current Medications Amlodipine Besylate (Norvasc) 10 mg PO DAILY [facility] Last Admin: 06/13/18 09:01 Dose: Not Given Atorvastatin Calcium (Lipitor) 40 mg PO HS [facility] Last Admin: 06/12/18 21:55 Dose: 40 mg Calcium Acetate (Phoslo) 667 mg PO WM@0900,1300,1700 [facility] Last Admin: 06/13/18 13:08 Dose: 667 mg Clonidine HCl (Catapres) 0.3 mg PO TID [facility] Last Admin: 06/13/18 13:05 Dose: Not Given Ergocalciferol (Drisdol 50,000 Intl Units Cap) 1 cap PO Q7D [facility] Last Admin: 06/08/18 17:37 Dose: 1 cap Gabapentin (Neurontin) 100 mg PO TID [facility] Last Admin: 06/13/18 13:09 Dose: 100 mg Hydralazine HCl (Apresoline) 100 mg PO Q8 [facility] Last Admin: 06/13/18 09:01 Dose: Not Given Iron Sucrose 100 mg/ Sodium (Chloride) 105 mls @ 105 mls/hr IVPB DAILY [facility] Stop: 06/17/18 09:59 Last Admin: 06/13/18 13:06 Dose: 105 mls/hr Dextrose/Sodium Chloride (Dextrose 5%/0.45% Ns 1000 Ml) 1,000 mls @ 60 mls/hr IV .[id number] [facility] Stop: 06/13/18 16:08 Last Admin: 06/13/18 00:28 Dose: 60 mls/hr Insulin Human Lispro (Humalog) 0 units SC Q6H [facility] PRN Reason: Protocol Last Admin: 06/13/18 13:05 Dose: Not Given Losartan Potassium (Cozaar) 50 mg PO QPM [facility] Last Admin: 06/12/18 17:46 Dose: 50 mg Metoprolol Succinate (Toprol Xl) 50 mg PO DAILY [facility] Last Admin: 06/13/18 09:02 Dose: Not Given Morphine Sulfate (Morphine) 4 mg IVP Q4 PRN PRN Reason: Pain, severe (8-10) Ondansetron HCl (Zofran Inj) 4 mg IVP Q6H PRN PRN Reason: Nausea/Vomiting Last Admin: 06/11/18 16:09 Dose: 4 mg Oxycodone/Acetaminophen (Percocet 5/325 Mg Tab) 2 tab PO Q4 PRN PRN Reason: Pain, moderate (4-7) Stop: 06/16/18 11:04 Pantoprazole Sodium (Protonix Inj) 40 mg IVP Q12 [facility] Last Admin: 06/13/18 09:02 Dose: Not Given Vitamin B Complex/Vit C/Folic Acid (Nephro-Elsa) 1 tab PO DAILY [facility] Last Admin: 06/13/18 09:01 Dose: Not Given - Labs Labs: 06/13/18 05:25 06/13/18 05:25 PT 12.4 Seconds (9.8-13.1) 06/12/18 05:00 INR 1.1 (0.9-1.2) 06/12/18 05:00 APTT 30.4 Seconds (25.6-37.1) 06/12/18 05:00 - Constitutional Appears: Non-toxic, Chronically Ill - Eye Exam Eye Exam: Conjunctival injection (L eye) - Respiratory Exam Respiratory Exam: NORMAL BREATHING PATTERN. absent: Respiratory Distress - Cardiovascular Exam Cardiovascular Exam: REGULAR RHYTHM - GI/Abdominal Exam GI & Abdominal Exam: Soft Additional comments: obese - Extremities Exam Extremities Exam: absent: Calf Tenderness - Neurological Exam Neurological Exam: Alert, Awake Assessment and Plan - Assessment and Plan (Free Text) Assessment: 47 yo male with hx ESRD, DM2, HTN, HLD, gastroparesis admitted for vomitting; initially suspected upper GI bleed but since r/o; likely gastroparesis. Pt has acute on chronic renal failure; has been dialyzed this admission. AV fistula placed today. Plan: - ESRD: Nephrology consult - HD today; renal function improved w/ dialysis. - Vascular - AV fistula today - DM2: Likely gastroparesis, continue with zofran, reglan, protonix. Insulin coverage scale/hypoglycemia protocol - HTN - continue current meds - Erythromycin ointment for eye - SCD for DVT ppx <Lake,Joel K - Last Filed: 06/14/18 08:48> Objective - Vital Signs/Intake and Output Vital Signs (last 24 hours): Temp Pulse Resp BP Pulse Ox 98.7 F 82 18 135/81 99 06/14/18 07:59 06/14/18 07:59 06/14/18 07:59 06/14/18 07:59 06/14/18 07:59 - Medications Medications: Current Medications Amlodipine Besylate (Norvasc) 10 mg PO DAILY [facility] Last Admin: 06/13/18 09:01 Dose: Not Given Atorvastatin Calcium (Lipitor) 40 mg PO HS [facility] Last Admin: 06/13/18 22:58 Dose: 40 mg Calcium Acetate (Phoslo) 667 mg PO WM@0900,1300,1700 [facility] Last Admin: 06/13/18 18:52 Dose: 667 mg Clonidine HCl (Catapres) 0.3 mg PO TID [facility] Last Admin: 06/13/18 18:48 Dose: Not Given Ergocalciferol (Drisdol 50,000 Intl Units Cap) 1 cap PO Q7D [facility] Last Admin: 06/08/18 17:37 Dose: 1 cap Gabapentin (Neurontin) 100 mg PO TID [facility] Last Admin: 06/13/18 18:50 Dose: 100 mg Hydralazine HCl (Apresoline) 100 mg PO Q8 [facility] Last Admin: 06/14/18 01:08 Dose: 100 mg Iron Sucrose 100 mg/ Sodium (Chloride) 105 mls @ 105 mls/hr IVPB DAILY [facility] Stop: 06/17/18 09:59 Last Admin: 06/13/18 13:06 Dose: 105 mls/hr Insulin Human Lispro (Humalog) 0 units SC Q6H [facility] PRN Reason: Protocol Last Admin: 06/14/18 05:17 Dose: Not Given Losartan Potassium (Cozaar) 50 mg PO QPM [facility] Last Admin: 06/13/18 18:48 Dose: Not Given Metoprolol Succinate (Toprol Xl) 50 mg PO DAILY [facility] Last Admin: 06/13/18 09:02 Dose: Not Given Morphine Sulfate (Morphine) 4 mg IVP Q4 PRN PRN Reason: Pain, severe (8-10) Ondansetron HCl (Zofran Inj) 4 mg IVP Q6H PRN PRN Reason: Nausea/Vomiting Last Admin: 06/11/18 16:09 Dose: 4 mg Oxycodone/Acetaminophen (Percocet 5/325 Mg Tab) 2 tab PO Q4 PRN PRN Reason: Pain, moderate (4-7) Stop: 06/16/18 11:04 Pantoprazole Sodium (Protonix Inj) 40 mg IVP Q12 [facility] Last Admin: 06/13/18 22:58 Dose: 40 mg Vitamin B Complex/Vit C/Folic Acid (Nephro-Elsa) 1 tab PO DAILY [facility] Last Admin: 06/13/18 09:01 Dose: Not Given - Labs Labs: 06/14/18 06:30 06/14/18 06:30 PT 12.4 Seconds (9.8-13.1) 06/12/18 05:00 INR 1.1 (0.9-1.2) 06/12/18 05:00 APTT 30.4 Seconds (25.6-37.1) 06/12/18 05:00 Assessment and Plan - Assessment and Plan (Free Text) Plan: Patient was personally seen and examined by me in rounds with residents. Available labs and diagnostic data reviewed. Case, Patient's condition and management plan discussed with residents in rounds. Agree with resident's progress note. Plan: As ordered.
[2018-06-14] MEDS: Insulin Lispro (humaLOG) 100 Units/ml Inj SC SCH ×4 (05:17→23:46)
[2018-06-14 07:22] LABS: HEMOGLOBIN 10.1 g/dL (12.0-18.0); MEAN CELL VOLUME 78.7 fl (80.0-94.0); MEAN CORPUSCULAR HEMOGLOBIN 25.7 pg (27.0-31.0); MEAN CORPUSCULAR HGB CONC 32.7 g/dL (33.0-37.0); RBC 3.92 Mil/uL (4.40-5.90); RED CELL DISTRIBUTION WIDTH 13.5 % (11.5-14.5); WHITE BLOOD COUNT 12.7 K/uL (4.8-10.8)
[2018-06-14 07:49] LABS: ALBUMIN 3.7 g/dL (3.5-5.0); CALCIUM 8.7 mg/dL (8.4-10.2)
--- NOTE | 2018-06-14 09:10 | CP.PCM.PN ---
Subjective - Date & Time of Evaluation Date of Evaluation: 06/14/18 Time of Evaluation: 09:06 - Subjective Subjective: Surgery Pt seen and examined. Pt underwent surgery yesterday and tolerated it well. Pain controlled. Minor ecchymosis around the incision. Objective - Vital Signs/Intake and Output Vital Signs (last 24 hours): Temp Pulse Resp BP Pulse Ox 98.7 F 82 18 135/81 99 06/14/18 07:59 06/14/18 07:59 06/14/18 07:59 06/14/18 07:59 06/14/18 07:59 - Medications Medications: Current Medications Amlodipine Besylate (Norvasc) 10 mg PO DAILY [facility] Last Admin: 06/13/18 09:01 Dose: Not Given Atorvastatin Calcium (Lipitor) 40 mg PO HS [facility] Last Admin: 06/13/18 22:58 Dose: 40 mg Calcium Acetate (Phoslo) 667 mg PO WM@0900,1300,1700 [facility] Last Admin: 06/13/18 18:52 Dose: 667 mg Clonidine HCl (Catapres) 0.3 mg PO TID [facility] Last Admin: 06/13/18 18:48 Dose: Not Given Ergocalciferol (Drisdol 50,000 Intl Units Cap) 1 cap PO Q7D [facility] Last Admin: 06/08/18 17:37 Dose: 1 cap Gabapentin (Neurontin) 100 mg PO TID [facility] Last Admin: 06/13/18 18:50 Dose: 100 mg Hydralazine HCl (Apresoline) 100 mg PO Q8 [facility] Last Admin: 06/14/18 01:08 Dose: 100 mg Iron Sucrose 100 mg/ Sodium (Chloride) 105 mls @ 105 mls/hr IVPB DAILY [facility] Stop: 06/17/18 09:59 Last Admin: 06/13/18 13:06 Dose: 105 mls/hr Insulin Human Lispro (Humalog) 0 units SC Q6H [facility] PRN Reason: Protocol Last Admin: 06/14/18 05:17 Dose: Not Given Losartan Potassium (Cozaar) 50 mg PO QPM [facility] Last Admin: 06/13/18 18:48 Dose: Not Given Metoprolol Succinate (Toprol Xl) 50 mg PO DAILY [facility] Last Admin: 06/13/18 09:02 Dose: Not Given Morphine Sulfate (Morphine) 4 mg IVP Q4 PRN PRN Reason: Pain, severe (8-10) Ondansetron HCl (Zofran Inj) 4 mg IVP Q6H PRN PRN Reason: Nausea/Vomiting Last Admin: 06/11/18 16:09 Dose: 4 mg Oxycodone/Acetaminophen (Percocet 5/325 Mg Tab) 2 tab PO Q4 PRN PRN Reason: Pain, moderate (4-7) Stop: 06/16/18 11:04 Pantoprazole Sodium (Protonix Inj) 40 mg IVP Q12 [facility] Last Admin: 06/13/18 22:58 Dose: 40 mg Vitamin B Complex/Vit C/Folic Acid (Nephro-Elsa) 1 tab PO DAILY [facility] Last Admin: 06/13/18 09:01 Dose: Not Given - Labs Labs: 06/14/18 06:30 06/14/18 06:30 PT 12.4 Seconds (9.8-13.1) 06/12/18 05:00 INR 1.1 (0.9-1.2) 06/12/18 05:00 APTT 30.4 Seconds (25.6-37.1) 06/12/18 05:00 - Constitutional Appears: No Acute Distress - Head Exam Head Exam: ATRAUMATIC, NORMAL INSPECTION, NORMOCEPHALIC - Eye Exam Eye Exam: EOMI, Normal appearance, PERRL Pupil Exam: NORMAL ACCOMODATION, PERRL - ENT Exam ENT Exam: Mucous Membranes Moist, Normal Exam - Neck Exam Neck Exam: Full ROM, Normal Inspection. absent: Lymphadenopathy - Respiratory Exam Respiratory Exam: NORMAL BREATHING PATTERN - Cardiovascular Exam Cardiovascular Exam: REGULAR RHYTHM - GI/Abdominal Exam GI & Abdominal Exam: Soft. absent: Distended, Tenderness - Extremities Exam Extremities Exam: Full ROM Additional comments: R arm dressing C/D/I. minor eccymosis noted around incision. - Back Exam Back Exam: NORMAL INSPECTION - Neurological Exam Neurological Exam: Alert, Awake, CN II-XII Intact, Normal Gait, Oriented x3 - Psychiatric Exam Psychiatric exam: Normal Affect, Normal Mood - Skin Skin Exam: Dry, Intact, Warm. absent: Erythema Assessment and Plan - Assessment and Plan (Free Text) Assessment: POD 1 s/p AVF L arm creation -F/u at Dr. Kulkarni's office in 1 month to schedule for 2nd part of the operation to raise the AVF to the surface. -IR plan on Permacath placement on Mon or . Recommend L IJ since AVF located on R side to prevent central venous stenosis/thrombosis 2/2 permacath -Will monitor ecchymosis WIll DW Dr. Kulkarni
[2018-06-14] MEDS: Multivitamin Vitamin B Complex (Nephro-Vite) Tab PO SCH (10:06)
[2018-06-14] MEDS: Metoprolol Succinate 50 mg XL Tab PO SCH (10:07)
--- NOTE | 2018-06-14 10:34 | CP.PCM.PN ---
Subjective - Date & Time of Evaluation Date of Evaluation: 06/14/18 Time of Evaluation: 10:32 - Subjective Subjective: RENAL FOLLOW UP S: seen and examined s/p AVF and hd yesterday o: VS as below gen: nad sclera: anicteric op: clear neck: supple cv: +S1+s2 no rub lungs: reduced bs at bases abd: soft no orgnomegaly no r/g ext: no edema neuro: a+ox3 no focal defeict psych: nml affect skin: No rash access: TDC and RUAF w/ thrill imp: ESRD / Diabetic kidney disease/ Anemia of renal disease/ Secondary hyperparathyroid/ Hypertensive kidney disease plan: HD MWF dm: per primary continue current bp meds hgb at goal ok from renal perspective for d/c as long as outpt chair set up Objective - Vital Signs/Intake and Output Vital Signs (last 24 hours): Temp Pulse Resp BP Pulse Ox 98.7 F 82 18 135/81 99 06/14/18 07:59 06/14/18 07:59 06/14/18 07:59 06/14/18 07:59 06/14/18 07:59 - Medications Medications: Current Medications Amlodipine Besylate (Norvasc) 10 mg PO DAILY [facility] Last Admin: 06/14/18 10:06 Dose: 10 mg Atorvastatin Calcium (Lipitor) 40 mg PO HS [facility] Last Admin: 06/13/18 22:58 Dose: 40 mg Calcium Acetate (Phoslo) 667 mg PO WM@0900,1300,1700 [facility] Last Admin: 06/14/18 10:07 Dose: 667 mg Clonidine HCl (Catapres) 0.3 mg PO TID [facility] Last Admin: 06/14/18 10:07 Dose: 0.3 mg Ergocalciferol (Drisdol 50,000 Intl Units Cap) 1 cap PO Q7D [facility] Last Admin: 06/08/18 17:37 Dose: 1 cap Gabapentin (Neurontin) 100 mg PO TID [facility] Last Admin: 06/14/18 10:07 Dose: 100 mg Hydralazine HCl (Apresoline) 100 mg PO Q8 [facility] Last Admin: 06/14/18 10:07 Dose: 100 mg Iron Sucrose 100 mg/ Sodium (Chloride) 105 mls @ 105 mls/hr IVPB DAILY [facility] Stop: 06/17/18 09:59 Last Admin: 06/13/18 13:06 Dose: 105 mls/hr Insulin Human Lispro (Humalog) 0 units SC Q6H [facility] PRN Reason: Protocol Last Admin: 06/14/18 05:17 Dose: Not Given Losartan Potassium (Cozaar) 50 mg PO QPM [facility] Last Admin: 06/13/18 18:48 Dose: Not Given Metoprolol Succinate (Toprol Xl) 50 mg PO DAILY [facility] Last Admin: 06/14/18 10:07 Dose: 50 mg Morphine Sulfate (Morphine) 4 mg IVP Q4 PRN PRN Reason: Pain, severe (8-10) Ondansetron HCl (Zofran Inj) 4 mg IVP Q6H PRN PRN Reason: Nausea/Vomiting Last Admin: 06/11/18 16:09 Dose: 4 mg Oxycodone/Acetaminophen (Percocet 5/325 Mg Tab) 2 tab PO Q4 PRN PRN Reason: Pain, moderate (4-7) Stop: 06/16/18 11:04 Pantoprazole Sodium (Protonix Inj) 40 mg IVP Q12 [facility] Last Admin: 06/14/18 10:07 Dose: 40 mg Vitamin B Complex/Vit C/Folic Acid (Nephro-Elsa) 1 tab PO DAILY [facility] Last Admin: 06/14/18 10:06 Dose: 1 tab - Labs Labs: 06/14/18 06:30 06/14/18 06:30 PT 12.4 Seconds (9.8-13.1) 06/12/18 05:00 INR 1.1 (0.9-1.2) 06/12/18 05:00 APTT 30.4 Seconds (25.6-37.1) 06/12/18 05:00
--- NOTE | 2018-06-14 12:53 | PN ---
DATE: 06/14/2018 SUBJECTIVE: The patient is seen and examined. Interim events noted. Consults noted and appreciated. Surgeries, intervention and procedure noted and appreciated. The patient underwent brachiocephalic AV fistula. Tolerated the procedure well without any acute complications. The patient feels okay. Denies any chest pain or shortness of breath, tolerating diet and eating breakfast without any problem. PHYSICAL EXAMINATION: GENERAL: The patient is in no acute distress. VITAL SIGNS: Stable. HEART: S1 and S2, normal and regular. LUNGS: Good bilateral air exchange. ABDOMEN: Soft and nontender. EXTREMITIES: No edema. No calf swelling. No tenderness. No acute ischemia. 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 DIAGNOSTIC DATA: Available diagnostic data reviewed. ASSESSMENT AND PLAN: Overall, the patient's general medical condition is stable. There is no sign of acute surgical complication. Plan as ordered. Case and plan discussed with the patient. Joel Lake MD
[2018-06-15] MEDS: Insulin Lispro (humaLOG) 100 Units/ml Inj SC SCH ×4 (06:12→23:50)
[2018-06-15 06:20] LABS: MEAN CELL VOLUME 78.2 fl (80.0-94.0); MEAN CORPUSCULAR HEMOGLOBIN 25.4 pg (27.0-31.0); MEAN CORPUSCULAR HGB CONC 32.5 g/dL (33.0-37.0); RBC 3.95 Mil/uL (4.40-5.90); RED CELL DISTRIBUTION WIDTH 13.5 % (11.5-14.5); WHITE BLOOD COUNT 13.7 K/uL (4.8-10.8)
[2018-06-15 06:47] LABS: ALBUMIN 3.6 g/dL (3.5-5.0)
--- NOTE | 2018-06-15 08:05 | CP.PCM.PN ---
Subjective - Date & Time of Evaluation Date of Evaluation: 06/15/18 Time of Evaluation: 08:03 - Subjective Subjective: surgery Pt seen and examined. No acute events. Pain controlled. Denies hand weakness, paresthsia, cold hand. Getting HD on MWF Objective - Vital Signs/Intake and Output Vital Signs (last 24 hours): Temp Pulse Resp BP Pulse Ox 98.3 F 71 18 112/71 97 06/15/18 04:57 06/15/18 04:57 06/15/18 04:57 06/15/18 04:57 06/15/18 04:57 Intake and Output: 06/15/18 06/15/18 06:59 18:59 Intake Total 0 Output Total 200 Balance -200 - Medications Medications: Current Medications Amlodipine Besylate (Norvasc) 10 mg PO DAILY [facility] Last Admin: 06/14/18 10:06 Dose: 10 mg Atorvastatin Calcium (Lipitor) 40 mg PO HS [facility] Last Admin: 06/14/18 21:45 Dose: 40 mg Calcium Acetate (Phoslo) 667 mg PO WM@0900,1300,1700 [facility] Last Admin: 06/14/18 16:26 Dose: 667 mg Clonidine HCl (Catapres) 0.3 mg PO TID [facility] Last Admin: 06/14/18 16:26 Dose: 0.3 mg Ergocalciferol (Drisdol 50,000 Intl Units Cap) 1 cap PO Q7D [facility] Last Admin: 06/08/18 17:37 Dose: 1 cap Gabapentin (Neurontin) 100 mg PO TID [facility] Last Admin: 06/14/18 16:27 Dose: 100 mg Hydralazine HCl (Apresoline) 100 mg PO Q8 [facility] Last Admin: 06/15/18 02:10 Dose: 100 mg Iron Sucrose 100 mg/ Sodium (Chloride) 105 mls @ 105 mls/hr IVPB DAILY [facility] Stop: 06/17/18 09:59 Last Admin: 06/14/18 11:39 Dose: 105 mls/hr Insulin Human Lispro (Humalog) 0 units SC Q6H [facility] PRN Reason: Protocol Last Admin: 06/15/18 06:12 Dose: 1 u Losartan Potassium (Cozaar) 50 mg PO QPM [facility] Last Admin: 06/14/18 17:43 Dose: 50 mg Metoprolol Succinate (Toprol Xl) 50 mg PO DAILY [facility] Last Admin: 06/14/18 10:07 Dose: 50 mg Morphine Sulfate (Morphine) 4 mg IVP Q4 PRN PRN Reason: Pain, severe (8-10) Ondansetron HCl (Zofran Inj) 4 mg IVP Q6H PRN PRN Reason: Nausea/Vomiting Last Admin: 06/11/18 16:09 Dose: 4 mg Oxycodone/Acetaminophen (Percocet 5/325 Mg Tab) 2 tab PO Q4 PRN PRN Reason: Pain, moderate (4-7) Stop: 06/16/18 11:04 Pantoprazole Sodium (Protonix Inj) 40 mg IVP Q12 [facility] Last Admin: 06/14/18 20:41 Dose: 40 mg Vitamin B Complex/Vit C/Folic Acid (Nephro-Elsa) 1 tab PO DAILY [facility] Last Admin: 06/14/18 10:06 Dose: 1 tab - Labs Labs: 06/15/18 05:40 06/15/18 05:45 PT 12.4 Seconds (9.8-13.1) 06/12/18 05:00 INR 1.1 (0.9-1.2) 06/12/18 05:00 APTT 30.4 Seconds (25.6-37.1) 06/12/18 05:00 - Constitutional Appears: No Acute Distress - Head Exam Head Exam: ATRAUMATIC, NORMAL INSPECTION, NORMOCEPHALIC - Eye Exam Eye Exam: EOMI, Normal appearance, PERRL Pupil Exam: NORMAL ACCOMODATION, PERRL - ENT Exam ENT Exam: Mucous Membranes Moist, Normal Exam - Neck Exam Neck Exam: Full ROM, Normal Inspection. absent: Lymphadenopathy - Respiratory Exam Respiratory Exam: Clear to Ausculation Bilateral, NORMAL BREATHING PATTERN - Cardiovascular Exam Cardiovascular Exam: REGULAR RHYTHM, +S1, +S2. absent: Murmur - GI/Abdominal Exam GI & Abdominal Exam: Soft. absent: Distended, Tenderness - Exam Exam: NORMAL INSPECTION - Extremities Exam Extremities Exam: Full ROM, Tenderness Additional comments: R arm dressing in place. Mild ecchymosis. Thrills +, distal pulses +, warm hands. - Back Exam Back Exam: NORMAL INSPECTION - Neurological Exam Neurological Exam: Alert, Awake, CN II-XII Intact, Normal Gait, Oriented x3 - Psychiatric Exam Psychiatric exam: Normal Affect, Normal Mood - Skin Skin Exam: Dry, Intact, Normal Color, Warm Assessment and Plan - Assessment and Plan (Free Text) Assessment: POD 2 s/p AVF L arm creation -F/u at Dr. Kulkarni's office in 1 month to schedule for 2nd part of the operation to raise the AVF to the surface. -IR plan on Permacath placement on Mon or Tues. Recommend L IJ since AVF located on R side to prevent central venous stenosis/thrombosis 2/2 permacath -Ok to DC for surgical standpoint. WIll DW Dr. Kulkarni
[2018-06-15] MEDS: Multivitamin Vitamin B Complex (Nephro-Vite) Tab PO SCH (08:56)
[2018-06-15] MEDS: Metoprolol Succinate 50 mg XL Tab PO SCH (08:59)
--- NOTE | 2018-06-15 11:39 | PN ---
DATE: 06/15/2018 SUBJECTIVE: The patient is seen and examined. Interim events noted. Consults noted and appreciated. Nephrology followup and interventions noted and appreciated. The patient remains in progressive care unit on telemetry monitoring. The patient 00:26. No chest pain. No shortness of breath. No pain at the surgical site. PHYSICAL EXAMINATION: GENERAL: The patient is in no acute distress. VITAL SIGNS: Stable. HEART: S1, S2. Normal and regular. LUNGS: Good bilateral air exchange. ABDOMEN: Soft. EXTREMITIES: No edema. No calf swelling. No tenderness. No acute ischemia. Surgical site is seen without any acute complication. DIAGNOSTIC DATA: Available diagnostic data reviewed. Telemetry monitoring does not reveal significant arrhythmia. ASSESSMENT AND PLAN: Overall, the patient's general medical condition is stable. Tolerated the procedure without any acute complications. Plan as ordered. Joel Lake MD
[2018-06-15] MEDS: Ergocalciferol 50,000 Intl Units Cap PO SCH (17:12)
[2018-06-15] MEDS: Dexamethasone/Tobramycin Ophth Susp OU SCH (21:25)
[2018-06-16] MEDS: Insulin Lispro (humaLOG) 100 Units/ml Inj SC SCH ×4 (06:00→22:52)
[2018-06-16 06:25] LABS: HEMOGLOBIN 9.1 g/dL (12.0-18.0); MEAN CELL VOLUME 78.5 fl (80.0-94.0); MEAN CORPUSCULAR HEMOGLOBIN 26.1 pg (27.0-31.0); MEAN CORPUSCULAR HGB CONC 33.2 g/dL (33.0-37.0); RBC 3.5 Mil/uL (4.40-5.90); RED CELL DISTRIBUTION WIDTH 13.5 % (11.5-14.5)
[2018-06-16 07:03] LABS: ALB/GLOB RATIO 1.1 (1.0-2.1); ALBUMIN 3.4 g/dL (3.5-5.0); CALCIUM 8.5 mg/dL (8.4-10.2)
--- NOTE | 2018-06-16 09:21 | PN ---
DATE: 06/16/2018 SUBJECTIVE: The patient is seen and examined. Interim events noted. Consults noted and appreciated. The patient remains in progressive care unit on telemetry monitoring. Podiatry followup and intervention noted and appreciated. The patient feels okay. Denies any specific complaints. No chest pain or shortness of breath. PHYSICAL EXAMINATION: GENERAL: The patient is in no acute distress. VITAL SIGNS: Stable. HEART: S1 and S2, normal and regular. LUNGS: Good bilateral air exchange. ABDOMEN: Soft and nontender. EXTREMITIES: The patient is status post amputation. No calf swelling. No tenderness. No acute ischemia. Right upper extremity, AV fistula dysfunction. No sign of additional complication. PROGRAM DIRECTOR/AIR PERSONALITY: Essentially unchanged. DIAGNOSTIC DATA: Available diagnostic data reviewed. Telemetry monitoring does not reveal any significant arrhythmias. ASSESSMENT AND PLAN: Overall, the patient's general medical condition is stable. The patient 01:08 diarrhea. No fever or chill. 01:13 case and plan discussed with the patient. Joel Lake MD
--- NOTE | 2018-06-16 09:49 | CP.PCM.PN ---
Subjective - Date & Time of Evaluation Date of Evaluation: 06/16/18 Time of Evaluation: 09:49 - Subjective Subjective: dialysis note Patient awake and conscious he was seen on hemodialysis. Blood pressure somewhat low vital sign otherwise stable patient appears to be stable No nausea no vomiting Objective - Vital Signs/Intake and Output Vital Signs (last 24 hours): Temp Pulse Resp BP Pulse Ox 98.5 F 76 18 104/67 97 06/16/18 07:55 06/16/18 07:55 06/16/18 07:55 06/16/18 07:55 06/16/18 07:55 - Medications Medications: Current Medications Amlodipine Besylate (Norvasc) 10 mg PO DAILY [facility] Last Admin: 06/15/18 08:58 Dose: Not Given Atorvastatin Calcium (Lipitor) 40 mg PO HS [facility] Last Admin: 06/15/18 21:25 Dose: 40 mg Calcium Acetate (Phoslo) 667 mg PO WM@0900,1300,1700 [facility] Last Admin: 06/15/18 17:14 Dose: 667 mg Clonidine HCl (Catapres) 0.3 mg PO TID [facility] Last Admin: 06/15/18 17:10 Dose: 0.3 mg Ergocalciferol (Drisdol 50,000 Intl Units Cap) 1 cap PO Q7D [facility] Last Admin: 06/15/18 17:12 Dose: 1 cap Gabapentin (Neurontin) 100 mg PO TID [facility] Last Admin: 06/15/18 17:14 Dose: 100 mg Hydralazine HCl (Apresoline) 100 mg PO Q8 [facility] Last Admin: 06/16/18 02:11 Dose: 100 mg Iron Sucrose 100 mg/ Sodium (Chloride) 105 mls @ 105 mls/hr IVPB DAILY [facility] Stop: 06/17/18 09:59 Last Admin: 06/15/18 10:36 Dose: 105 mls/hr Insulin Human Lispro (Humalog) 0 units SC Q6H [facility] PRN Reason: Protocol Last Admin: 06/16/18 06:00 Dose: 2 u Losartan Potassium (Cozaar) 50 mg PO QPM [facility] Last Admin: 06/15/18 17:12 Dose: 50 mg Metoprolol Succinate (Toprol Xl) 50 mg PO DAILY [facility] Last Admin: 06/15/18 08:59 Dose: Not Given Morphine Sulfate (Morphine) 4 mg IVP Q4 PRN PRN Reason: Pain, severe (8-10) Ondansetron HCl (Zofran Inj) 4 mg IVP Q6H PRN PRN Reason: Nausea/Vomiting Last Admin: 06/11/18 16:09 Dose: 4 mg Oxycodone/Acetaminophen (Percocet 5/325 Mg Tab) 2 tab PO Q4 PRN PRN Reason: Pain, moderate (4-7) Stop: 06/16/18 11:04 Pantoprazole Sodium (Protonix Inj) 40 mg IVP Q12 [facility] Last Admin: 06/15/18 20:44 Dose: 40 mg Tobramycin/Dexamethasone (Tobradex Opht Susp) 1 drop OU QID [facility] Last Admin: 06/15/18 21:25 Dose: 1 drop Vitamin B Complex/Vit C/Folic Acid (Nephro-Elsa) 1 tab PO DAILY [facility] Last Admin: 06/15/18 08:56 Dose: 1 tab - Labs Labs: 06/16/18 04:20 06/16/18 04:20 PT 12.4 Seconds (9.8-13.1) 06/12/18 05:00 INR 1.1 (0.9-1.2) 06/12/18 05:00 APTT 30.4 Seconds (25.6-37.1) 06/12/18 05:00 - Constitutional Appears: No Acute Distress - ENT Exam ENT Exam: Mucous Membranes Moist - Neck Exam Neck Exam: absent: Lymphadenopathy - Respiratory Exam Respiratory Exam: NORMAL BREATHING PATTERN. absent: Chest Wall Tenderness - Cardiovascular Exam Cardiovascular Exam: absent: Gallop, JVD, Rubs - GI/Abdominal Exam GI & Abdominal Exam: Soft, Normal Bowel Sounds - Extremities Exam Extremities Exam: absent: Calf Tenderness, Pedal Edema - Back Exam Back Exam: absent: CVA tenderness (L), CVA tenderness (R) - Neurological Exam Neurological Exam: Alert - Psychiatric Exam Psychiatric exam: Normal Affect - Skin Skin Exam: absent: Cyanosis Assessment and Plan (1) Chronic kidney disease, stage V Assessment & Plan: ESRD he was seen on hemodialysis now blood pressure somewhat low systolic around 98 we decrease ultrafiltration to about 800 mL now. Sodium bath 138 potassium bath 2 mEq with bicarbonate bath 34 I discussed the dialysis order and the condition of the patient with the dialysis nurse at the bedside Patient has a fistula in the right arm with a bruit positive. Patient need to changes it temporarily dialysis catheter with a permacath before he goes home I discussed that to arrange it with the nurse practitioner with the interventional radiologist Diabetic chronic Kidney Disease (E11.22) Hypertensive Chronic Kidney Disease (I12.0) New onset End stage renal disease (N18.6) dependence on hemodialysis (Z99.2) via shiley Anemia (D64.9), Hyperphosphatemia (E83.39), Secondary Hyperparathyroidism (E21.1), HTN (I12.0) Status: Acute (2) GI bleed Status: Acute (3) Gastroparesis Status: Acute
[2018-06-16] MEDS: Multivitamin Vitamin B Complex (Nephro-Vite) Tab PO SCH (10:42)
[2018-06-16] MEDS: Dexamethasone/Tobramycin Ophth Susp OU SCH ×4 (10:44→21:50)
[2018-06-16] MEDS: Metoprolol Succinate 50 mg XL Tab PO SCH (10:44)
--- NOTE | 2018-06-16 12:00 | CP.PCM.PN ---
Subjective - Date & Time of Evaluation Date of Evaluation: 06/16/18 Time of Evaluation: 11:59 - Subjective Subjective: no overnight events Objective - Vital Signs/Intake and Output Vital Signs (last 24 hours): Temp Pulse Resp BP Pulse Ox 98.5 F 76 18 104/67 97 06/16/18 07:55 06/16/18 10:44 06/16/18 07:55 06/16/18 10:44 06/16/18 07:55 - Medications Medications: Current Medications Amlodipine Besylate (Norvasc) 10 mg PO DAILY [facility] Last Admin: 06/16/18 10:42 Dose: Not Given Atorvastatin Calcium (Lipitor) 40 mg PO HS [facility] Last Admin: 06/15/18 21:25 Dose: 40 mg Calcium Acetate (Phoslo) 667 mg PO WM@0900,1300,1700 [facility] Last Admin: 06/16/18 10:43 Dose: 667 mg Clonidine HCl (Catapres) 0.3 mg PO TID [facility] Last Admin: 06/16/18 10:40 Dose: Not Given Ergocalciferol (Drisdol 50,000 Intl Units Cap) 1 cap PO Q7D [facility] Last Admin: 06/15/18 17:12 Dose: 1 cap Gabapentin (Neurontin) 100 mg PO TID [facility] Last Admin: 06/16/18 10:42 Dose: 100 mg Hydralazine HCl (Apresoline) 100 mg PO Q8 [facility] Last Admin: 06/16/18 10:40 Dose: Not Given Iron Sucrose 100 mg/ Sodium (Chloride) 105 mls @ 105 mls/hr IVPB DAILY [facility] Stop: 06/17/18 09:59 Last Admin: 06/15/18 10:36 Dose: 105 mls/hr Insulin Human Lispro (Humalog) 0 units SC Q6H [facility] PRN Reason: Protocol Last Admin: 06/16/18 06:00 Dose: 2 u Losartan Potassium (Cozaar) 50 mg PO QPM [facility] Last Admin: 06/15/18 17:12 Dose: 50 mg Metoprolol Succinate (Toprol Xl) 50 mg PO DAILY [facility] Last Admin: 06/16/18 10:44 Dose: Not Given Ondansetron HCl (Zofran Inj) 4 mg IVP Q6H PRN PRN Reason: Nausea/Vomiting Last Admin: 06/11/18 16:09 Dose: 4 mg Pantoprazole Sodium (Protonix Inj) 40 mg IVP Q12 [facility] Last Admin: 06/16/18 10:43 Dose: 40 mg Tobramycin/Dexamethasone (Tobradex Opht Susp) 1 drop OU QID [facility] Last Admin: 06/16/18 10:44 Dose: 1 drop Vitamin B Complex/Vit C/Folic Acid (Nephro-Elsa) 1 tab PO DAILY [facility] Last Admin: 06/16/18 10:42 Dose: 1 tab - Labs Labs: 06/16/18 04:20 06/16/18 04:20 PT 12.4 Seconds (9.8-13.1) 06/12/18 05:00 INR 1.1 (0.9-1.2) 06/12/18 05:00 APTT 30.4 Seconds (25.6-37.1) 06/12/18 05:00 - Head Exam Head Exam: NORMOCEPHALIC - Neck Exam Neck Exam: Normal Inspection - Respiratory Exam Respiratory Exam: Clear to Ausculation Bilateral, NORMAL BREATHING PATTERN - Cardiovascular Exam Cardiovascular Exam: REGULAR RHYTHM - GI/Abdominal Exam GI & Abdominal Exam: Soft, Normal Bowel Sounds Assessment and Plan - Assessment and Plan (Free Text) Assessment: 47 yo male with coffee ground emesis no bleeding hgb stable
--- NOTE | 2018-06-16 13:02 | CARD ---
APPROVED REPORT Date of service: 06/11/2018 EXAM: Transesophageal echocardiogram with color flow Doppler. INDICATION Infection:Subacute bacterial endocarditis Mitral Valve E/A ratio0.0 TDI E/Lateral E'0.0E/Medial E'0.0 Reason For Test : Rule out endocarditis. PROCEDURE After obtaining informed consent, patient underwent transesophageal echo in the OR holding area Type of Sedation : Conscious Sedation Sedation was provided by anesthesiologist. Sedation was achieved with intravenously. Transesophageal probe was inserted and advanced into esophagus without difficulty. The DAYSI was performed without complications. Throughout the procedure, the blood pressure, pulse oximetry, cardiac rhythm, and rate were monitored. The patient tolerated the procedure without adverse effects. Recovery from conscious sedation was uneventful and vital signs were stable. LEFT VENTRICLE The left ventricle is normal size. There is borderline to mild concentric left ventricular hypertrophy. The left ventricular function is normal. The left ventricular ejection fraction is within the normal range. The Ejection Fraction is 60-65%. There is normal LV segmental wall motion. The left ventricular diastolic function is normal. RIGHT VENTRICLE The right ventricle is normal size. There is normal right ventricular wall thickness. The right ventricular systolic function is normal. ATRIA The left atrium size is normal. The right atrium size is normal. AORTIC VALVE The aortic valve is calcified but opens well. There is mild aortic regurgitation. There is no aortic valvular stenosis. There is no aortic,mitral,tricuspid or pulmonic valvular vegetation. MITRAL VALVE The mitral valve is thickened but opens well. There is no evidence of mitral valve prolapse. There is no mitral valve stenosis. Mitral regurgitation is mild. TRICUSPID VALVE The tricuspid valve is normal in structure. There is mild to moderate tricuspid regurgitation. There is no tricuspid valve prolapse or vegetation. There is no tricuspid valve stenosis. PULMONIC VALVE The pulmonary valve is normal in structure. There is no pulmonic valvular regurgitation. There is no pulmonic valvular stenosis. GREAT VESSELS The aortic root is normal in size. The ascending aorta is normal in size. The pulmonary artery is normal. The IVC is normal in size and collapses >50% with inspiration. PERICARDIAL EFFUSION The pericardium appears normal. <Conclusion> The left ventricular function is normal. The left ventricular ejection fraction is within the normal range. The Ejection Fraction is 60-65%. Mitral regurgitation is mild. There is no aortic,mitral,tricuspid or pulmonic valvular vegetation.
--- NOTE | 2018-06-16 13:05 | CARD ---
APPROVED REPORT Date of service: 06/09/2018 Protocol: LEXISCAN Test Type: Stress Nuclear Medications: CALCIUM 667MG, CLONIDINE 0.3MG, ERGOCALCIFEROL [id number], GABAPENTIN 100MG, HYDRALAZINE 100MG, INSULIN LOSARTAN POT 50MG, METOCLOPRAMIDE 10MG, ZOFRAN 4MG, PANTOPRAZOLE 40MG, VIT B Medical History: CARDIAC DISORDER, CHRONIC KIDNEY DISEASE, ENDOCRINE DISORDER, DIABETIS TYPE 2, ANEMIA, GASTROINTESTINAL , LEFT SUBOCCIPITAL CRANIOTOMY, TMA RIGHT FOOT, Target HR: 173 bpm Resting ECG: normal Resting Heart Rate: 73 bpm Resting Blood Pressure: 155/106mmHg submaximum (85%): 147 bpm TEST SUMMARY PREINJECTPRE-INJEC68:[id number]/106.0. [id number]/106.0. INJECTIONNS FLUSH00:[id number]/106.0. INJECTIONNUC MED00:[id number]/106.0. [id number]/90.0. PROCEDURE Pharmacologic stress testing was performed using 0.4mg per 5ml of regadenoson given intravenously over 7-10 seconds. POST EXERCISE Reason for Termination: PROTOCOL COMPLETED Target HR: No Max HR: 84 bpm 53% of Maximum Predicted HR: 173 bpm Exercise duration: 01:00 min:sec, 0 Stage Exercise capacity: 1.0METs Max Blood Pressure: 155/106mmHg Blood Pressure response to exercise: N/A Heart Rate response to exercise: N/A Chest Pain: Yes, limiting Angina index: 0 Arrhythmia: No, none ST Change: No, none Deviation: 0 mm EXAM: Myocardial Perfusion REST/STRESS Image QualityGood Imaging Protocol The imaging protocol used to acquire images was Rest Tc-99m/stress Tc-99m 1 dayRest Tc-99m/stress Tc-99m 2 days Rest Spect myocardial perfusion imaging was performed in supine position 60 minutes following the injection of 10 mCi of Tc-99 Myoview. Time of rest injection: 11:39 Time of rest imagin:40 Time of stress injection: 11:27 Time of stress imagin:30 Gated Stress Spect was performed 60 minutes after intravenous Tc-99 Myoview injection. The images were gated to evaluate regional wall motion and calculate ventricular ejection fraction. NUCLEAR IMAGE INTERPRETATION Study quality was good. Left Ventricular size was Normal at Rest and Stress. LV Perfusion 1 Perfusion Defect Location: mid inferolateral Perfusion Defect Size: Small (1-2 segments) Perfusion Defect Severity: Moderate Type of Perfusion Defect: Reversible CONCLUSION 1. - Small sized moderate intensity reversible inferolateral wall defect 2. - Normal LVEF Recommendation - Ischemia in the territory of LCx artery - Consider further risk stratification with invasive cardiac catheterization
[2018-06-17] MEDS: Insulin Lispro (humaLOG) 100 Units/ml Inj SC SCH ×4 (05:38→23:00)
[2018-06-17 05:56] LABS: HEMOGLOBIN 8.8 g/dL (12.0-18.0); MEAN CELL VOLUME 78.8 fl (80.0-94.0); MEAN CORPUSCULAR HEMOGLOBIN 25.3 pg (27.0-31.0); MEAN CORPUSCULAR HGB CONC 32.1 g/dL (33.0-37.0); RBC 3.48 Mil/uL (4.40-5.90); RED CELL DISTRIBUTION WIDTH 13.6 % (11.5-14.5); WHITE BLOOD COUNT 14.4 K/uL (4.8-10.8)
[2018-06-17 06:26] LABS: ALB/GLOB RATIO 1.1 (1.0-2.1); ALBUMIN 3.4 g/dL (3.5-5.0); CALCIUM 8.7 mg/dL (8.4-10.2)
--- NOTE | 2018-06-17 07:25 | CP.PCM.PN ---
<Jolanta Barnard - Last Filed: 06/17/18 07:28> Subjective - Date & Time of Evaluation Date of Evaluation: 06/17/18 Time of Evaluation: 07:22 - Subjective Subjective: No acute overnight events. Pt seen and examined in AM rounds. States that he is feeling well. Tolerating PO diet. Denies chest pain, dyspnea, n/v, abdominal pain and remains afebrile. Objective - Vital Signs/Intake and Output Vital Signs (last 24 hours): Temp Pulse Resp BP Pulse Ox 98.4 F 75 16 128/77 96 06/17/18 05:00 06/17/18 05:00 06/17/18 05:00 06/17/18 05:00 06/17/18 05:00 - Medications Medications: Current Medications Amlodipine Besylate (Norvasc) 10 mg PO DAILY [facility] Last Admin: 06/16/18 10:42 Dose: Not Given Atorvastatin Calcium (Lipitor) 40 mg PO HS [facility] Last Admin: 06/16/18 21:52 Dose: 40 mg Calcium Acetate (Phoslo) 667 mg PO WM@0900,1300,1700 [facility] Last Admin: 06/16/18 17:30 Dose: 667 mg Clonidine HCl (Catapres) 0.3 mg PO TID [facility] Last Admin: 06/16/18 17:27 Dose: 0.3 mg Ergocalciferol (Drisdol 50,000 Intl Units Cap) 1 cap PO Q7D [facility] Last Admin: 06/15/18 17:12 Dose: 1 cap Gabapentin (Neurontin) 100 mg PO TID [facility] Last Admin: 06/16/18 17:30 Dose: 100 mg Hydralazine HCl (Apresoline) 100 mg PO Q8 [facility] Last Admin: 06/17/18 00:58 Dose: 100 mg Iron Sucrose 100 mg/ Sodium (Chloride) 105 mls @ 105 mls/hr IVPB DAILY [facility] Stop: 06/17/18 09:59 Last Admin: 06/16/18 11:45 Dose: 105 mls/hr Insulin Human Lispro (Humalog) 0 units SC Q6H [facility] PRN Reason: Protocol Last Admin: 06/17/18 05:38 Dose: 1 unit Losartan Potassium (Cozaar) 50 mg PO QPM [facility] Last Admin: 06/16/18 17:28 Dose: 50 mg Metoprolol Succinate (Toprol Xl) 50 mg PO DAILY [facility] Last Admin: 06/16/18 10:44 Dose: Not Given Ondansetron HCl (Zofran Inj) 4 mg IVP Q6H PRN PRN Reason: Nausea/Vomiting Last Admin: 06/11/18 16:09 Dose: 4 mg Pantoprazole Sodium (Protonix Inj) 40 mg IVP Q12 [facility] Last Admin: 06/16/18 21:53 Dose: 40 mg Tobramycin/Dexamethasone (Tobradex Opht Susp) 1 drop OU QID [facility] Last Admin: 06/16/18 21:50 Dose: 1 drop Vitamin B Complex/Vit C/Folic Acid (Nephro-Elsa) 1 tab PO DAILY [facility] Last Admin: 06/16/18 10:42 Dose: 1 tab - Labs Labs: 06/17/18 05:15 06/17/18 05:15 PT 12.4 Seconds (9.8-13.1) 06/12/18 05:00 INR 1.1 (0.9-1.2) 06/12/18 05:00 APTT 30.4 Seconds (25.6-37.1) 06/12/18 05:00 - Constitutional Appears: No Acute Distress - Head Exam Head Exam: ATRAUMATIC - Eye Exam Eye Exam: EOMI - ENT Exam ENT Exam: Mucous Membranes Moist - Respiratory Exam Respiratory Exam: Clear to Ausculation Bilateral. absent: Wheezes - Cardiovascular Exam Cardiovascular Exam: REGULAR RHYTHM, +S1, +S2 - GI/Abdominal Exam GI & Abdominal Exam: Soft, Normal Bowel Sounds. absent: Tenderness - Extremities Exam Extremities Exam: absent: Calf Tenderness, Pedal Edema Additional comments: RLE below ankle amputation - Neurological Exam Neurological Exam: Alert, Awake, Oriented x3 Assessment and Plan - Assessment and Plan (Free Text) Assessment: Assessment/Plan: 47 YO male with PMHx of ESRD, DM2, HTN, HLD, gastroparesis admitted for GI symptoms found to be on acute on chronic renal failure. VS stable, labs reviewed. -plan as ordered -nephrology consult; on HD; s/p AV fistula (R) during this admission -on HD on MWF -surgery on board; F/u at Dr. Kulkarni's office in 1 month to schedule for 2nd part of the operation to raise the AVF to the surface -IR to place permacath, pending -GI on board <AleksandraJoel K - Last Filed: 06/18/18 14:21> Objective - Vital Signs/Intake and Output Vital Signs (last 24 hours): Temp Pulse Resp BP Pulse Ox 98.6 F 71 20 152/89 H 97 06/18/18 12:49 06/18/18 12:49 06/18/18 12:49 06/18/18 12:49 06/18/18 12:49 Intake and Output: 06/18/18 06/18/18 06:59 18:59 Output Total 410 Balance -410 - Medications Medications: Current Medications Amlodipine Besylate (Norvasc) 10 mg PO DAILY [facility] Last Admin: 06/18/18 10:06 Dose: Not Given Atorvastatin Calcium (Lipitor) 40 mg PO HS [facility] Last Admin: 06/17/18 21:02 Dose: 40 mg Calcium Acetate (Phoslo) 667 mg PO WM@0900,1300,1700 [facility] Last Admin: 06/18/18 13:51 Dose: 667 mg Clonidine HCl (Catapres) 0.3 mg PO TID [facility] Last Admin: 06/18/18 13:49 Dose: 0.3 mg Ergocalciferol (Drisdol 50,000 Intl Units Cap) 1 cap PO Q7D [facility] Last Admin: 06/15/18 17:12 Dose: 1 cap Gabapentin (Neurontin) 100 mg PO TID [facility] Last Admin: 06/18/18 13:51 Dose: 100 mg Hydralazine HCl (Apresoline) 100 mg PO Q8 [facility] Last Admin: 06/18/18 10:03 Dose: Not Given Insulin Human Lispro (Humalog) 0 units SC Q6H [facility] PRN Reason: Protocol Last Admin: 06/18/18 13:00 Dose: 3 unit Losartan Potassium (Cozaar) 50 mg PO QPM [facility] Last Admin: 06/17/18 17:40 Dose: 50 mg Metoprolol Succinate (Toprol Xl) 50 mg PO DAILY [facility] Last Admin: 06/18/18 10:07 Dose: Not Given Ondansetron HCl (Zofran Inj) 4 mg IVP Q6H PRN PRN Reason: Nausea/Vomiting Last Admin: 06/11/18 16:09 Dose: 4 mg Pantoprazole Sodium (Protonix Inj) 40 mg IVP Q12 [facility] Last Admin: 06/18/18 10:06 Dose: 40 mg Tobramycin/Dexamethasone (Tobradex Opht Susp) 1 drop OU QID [facility] Last Admin: 06/18/18 13:52 Dose: 1 drop Vitamin B Complex/Vit C/Folic Acid (Nephro-Elsa) 1 tab PO DAILY [facility] Last Admin: 06/18/18 10:05 Dose: 1 tab - Labs Labs: 06/18/18 04:20 06/17/18 05:15 PT 12.4 Seconds (9.8-13.1) 06/12/18 05:00 INR 1.1 (0.9-1.2) 06/12/18 05:00 APTT 30.4 Seconds (25.6-37.1) 06/12/18 05:00 Assessment and Plan - Assessment and Plan (Free Text) Assessment: Patient was personally seen and examined by me in rounds with residents. Available labs and diagnostic data reviewed. Case, Patient's condition and management plan discussed with residents in rounds. Agree with resident's progress note. Plan: As ordered.
[2018-06-17] MEDS ORDERED: LIDOCAINE 2% 10ML 20 MG/ML VIAL IJ ONE (09:20)
[2018-06-17] MEDS ORDERED: ePHEDrine 50 mg/ml Inj ONE (09:47)
[2018-06-17] MEDS ORDERED: Etomidate 20 mg/10ml Inj IV ONE (09:47)
[2018-06-17] MEDS ORDERED: Midazolam 2 MG/2 ML VIAL ONE (09:47)
[2018-06-17] MEDS: Dexamethasone/Tobramycin Ophth Susp OU SCH ×4 (09:55→21:02)
--- NOTE | 2018-06-17 10:21 | PCM.SURG1 ---
Surgeon's Initial Post Op Note - Surgeon's Notes Surgeon: Terrence Jiménez MD Emergency Room Orderly: NONE Type of Anesthesia: IV Sedation Pre-Operative Diagnosis: Renal failure Operative Findings: US showed patent left IJV Post-Operative Diagnosis: Renal failure Operation Performed: Tunneled HD catheter placement left IJV, 23 cm cuff to tip. Tip of catheter is in the SVC. Removal of right non tunneled HD catheter. Specimen/Specimens Removed: NONE Estimated Blood Loss: EBL {In ML}: 2 Blood Products Given: N/A Drains Used: No Drains Post-Op Condition: Fair Date of Surgery/Procedure: 06/17/18 Time of Surgery/Procedure: 10:15
--- NOTE | 2018-06-17 11:59 | VASCULAR ---
PROCEDURE: Date of procedure: 06/17/2018 Procedure: 1. Placement of left IJ tunneled hemodialysis catheter, CPT 86873 2. Removal of non tunneled right IJV HD catheter. Medications: 1 percent lidocaine, IV sedation and physiologic monitoring performed by the anesthesiologist. HISTORY: Renal failure requiring hemodialysis TECHNIQUE: Following informed consent and procedure time-out, the patient was placed supine on the interventional table and the skin was marked. A limited ultrasound patient's left neck showed a patent compressible right internal jugular vein. Under direct ultrasound guidance, the right internal jugular vein was accessed with micropuncture technique and a guidewire was advanced under fluoroscopic guidance into the superior vena cava. An image documenting ultrasound guidance for vascular access was permanently saved. A 23 centimeter cuff to tip hemodialysis catheter was then tunneled under the skin and hold the venotomy site. The venotomy was then serially dilated to accommodate the peel-away sheath. The hemodialysis catheter was then advanced through a peel-away sheath. The catheter is positioned with tip in the superior vena cava confirm with fluoroscopic image. The catheter was tested and has adequate blood flow for hemodialysis. The catheter was flushed and locked with heparin per specified amount. The catheter secured to the skin with a 0 silk suture. The right non tunneled HD catheter was prepped and draped in sterile manner. The sutures were removed. The catheter was then removed. Hemostasis achieved with compression. A dressing was placed. IMPRESSION: Placement of left tunneled hemodialysis 23-cm cuff-to-tip catheter. The catheter tip is confirmed with spot radiograph and is in the superior vena cava. The catheter is functional and ready for use.
[2018-06-17] MEDS ORDERED: Epoetin Alfa 20000 UNIT/ML Inj SC ONE (12:40)
--- NOTE | 2018-06-17 12:48 | CP.PCM.PN ---
Subjective - Date & Time of Evaluation Date of Evaluation: 06/17/18 Time of Evaluation: 12:48 - Subjective Subjective: No chest pain no shortness of breath no nausea no vomiting appears to be comfortable Objective - Vital Signs/Intake and Output Vital Signs (last 24 hours): Temp Pulse Resp BP Pulse Ox 98.0 F 80 20 125/81 97 06/17/18 11:30 06/17/18 11:30 06/17/18 11:30 06/17/18 11:30 06/17/18 11:30 - Medications Medications: Current Medications Amlodipine Besylate (Norvasc) 10 mg PO DAILY [facility] Last Admin: 06/16/18 10:42 Dose: Not Given Atorvastatin Calcium (Lipitor) 40 mg PO HS [facility] Last Admin: 06/16/18 21:52 Dose: 40 mg Calcium Acetate (Phoslo) 667 mg PO WM@0900,1300,1700 [facility] Last Admin: 06/16/18 17:30 Dose: 667 mg Clonidine HCl (Catapres) 0.3 mg PO TID [facility] Last Admin: 06/16/18 17:27 Dose: 0.3 mg Epoetin Mitchell (Procrit) 6,000 unit SC ONCE ONE Stop: 06/17/18 12:41 Epoetin Mitchell (Procrit) 6,000 unit IV MWF ONE Stop: 06/18/18 12:42 Ergocalciferol (Drisdol 50,000 Intl Units Cap) 1 cap PO Q7D [facility] Last Admin: 06/15/18 17:12 Dose: 1 cap Gabapentin (Neurontin) 100 mg PO TID [facility] Last Admin: 06/16/18 17:30 Dose: 100 mg Hydralazine HCl (Apresoline) 100 mg PO Q8 [facility] Last Admin: 06/17/18 00:58 Dose: 100 mg Insulin Human Lispro (Humalog) 0 units SC Q6H [facility] PRN Reason: Protocol Last Admin: 06/17/18 05:38 Dose: 1 unit Losartan Potassium (Cozaar) 50 mg PO QPM [facility] Last Admin: 06/16/18 17:28 Dose: 50 mg Metoprolol Succinate (Toprol Xl) 50 mg PO DAILY [facility] Last Admin: 06/16/18 10:44 Dose: Not Given Ondansetron HCl (Zofran Inj) 4 mg IVP Q6H PRN PRN Reason: Nausea/Vomiting Last Admin: 06/11/18 16:09 Dose: 4 mg Pantoprazole Sodium (Protonix Inj) 40 mg IVP Q12 [facility] Last Admin: 06/16/18 21:53 Dose: 40 mg Tobramycin/Dexamethasone (Tobradex Opht Susp) 1 drop OU QID [facility] Last Admin: 06/16/18 21:50 Dose: 1 drop Vitamin B Complex/Vit C/Folic Acid (Nephro-Elsa) 1 tab PO DAILY [facility] Last Admin: 06/16/18 10:42 Dose: 1 tab - Labs Labs: 06/17/18 05:15 06/17/18 05:15 PT 12.4 Seconds (9.8-13.1) 06/12/18 05:00 INR 1.1 (0.9-1.2) 06/12/18 05:00 APTT 30.4 Seconds (25.6-37.1) 06/12/18 05:00 - Constitutional Appears: No Acute Distress - ENT Exam ENT Exam: Mucous Membranes Moist - Respiratory Exam Respiratory Exam: absent: Chest Wall Tenderness - Cardiovascular Exam Cardiovascular Exam: absent: Gallop, JVD, Rubs - GI/Abdominal Exam GI & Abdominal Exam: Soft, Normal Bowel Sounds - Extremities Exam Extremities Exam: absent: Calf Tenderness - Back Exam Back Exam: absent: CVA tenderness (L), CVA tenderness (R) - Neurological Exam Neurological Exam: Alert - Psychiatric Exam Psychiatric exam: Normal Affect - Skin Skin Exam: absent: Cyanosis Assessment and Plan (1) Chronic kidney disease, stage V Assessment & Plan: status post and permacath inserted today Diabetic chronic Kidney Disease (E11.22) Hypertensive Chronic Kidney Disease (I12.0) New onset End stage renal disease (N18.6) dependence on hemodialysis (Z99.2) via shiley Anemia (D64.9),start EPO immediately Hyperphosphatemia (E83.39), Secondary Hyperparathyroidism (E21.1), HTN (I12.0) Status: Acute (2) GI bleed Status: Acute (3) Gastroparesis Status: Acute
[2018-06-17] MEDS: Multivitamin Vitamin B Complex (Nephro-Vite) Tab PO SCH (13:02)
[2018-06-17] MEDS: Metoprolol Succinate 50 mg XL Tab PO SCH (13:08)
[2018-06-18 03:16] LABS: SQUAMOUS EPITHIAL < 1 /hpf (0-5); URINE BACTERIA RARE (<OCC); URINE BILIRUBIN NEGATIVE (NEGATIVE); URINE BLOOD NEGATIVE (NEGATIVE); URINE CLARITY CLEAR (Clear); URINE COLOR YELLOW (YELLOW); URINE GLUCOSE (UA) 50 mg/dL (Normal); URINE LEUKOCYTE ESTERASE NEG Leu/uL (Negative); URINE PROTEIN 100 mg/dL (NEGATIVE); URINE UROBILINOGEN 0.2-1.0 mg/dL (0.2-1.0)
[2018-06-18 05:42] LABS: HEMOGLOBIN 9.1 g/dL (12.0-18.0); MEAN CELL VOLUME 79.2 fl (80.0-94.0); MEAN CORPUSCULAR HEMOGLOBIN 25.7 pg (27.0-31.0); MEAN CORPUSCULAR HGB CONC 32.5 g/dL (33.0-37.0); RBC 3.52 Mil/uL (4.40-5.90); WHITE BLOOD COUNT 12.1 K/uL (4.8-10.8)
[2018-06-18] MEDS: Insulin Lispro (humaLOG) 100 Units/ml Inj SC SCH ×4 (06:32→22:31)
[2018-06-18] MEDS: Multivitamin Vitamin B Complex (Nephro-Vite) Tab PO SCH (10:05)
[2018-06-18] MEDS: Dexamethasone/Tobramycin Ophth Susp OU SCH ×4 (10:07→22:32)
[2018-06-18] MEDS: Metoprolol Succinate 50 mg XL Tab PO SCH (10:07)
--- NOTE | 2018-06-18 12:16 | CP.PCM.PN ---
Subjective - Date & Time of Evaluation Date of Evaluation: 06/18/18 Time of Evaluation: 12:15 - Subjective Subjective: Patient and bed awake and conscious is feeling good. No chest pain no nausea no vomiting. Appetite is good. White count still elevated over 12,000 Objective - Vital Signs/Intake and Output Vital Signs (last 24 hours): Temp Pulse Resp BP Pulse Ox 98.6 F 82 18 114/71 96 06/18/18 07:57 06/18/18 07:57 06/18/18 07:57 06/18/18 07:57 06/18/18 07:57 Intake and Output: 06/18/18 06/18/18 06:59 18:59 Output Total 410 Balance -410 - Medications Medications: Current Medications Amlodipine Besylate (Norvasc) 10 mg PO DAILY [facility] Last Admin: 06/18/18 10:06 Dose: Not Given Atorvastatin Calcium (Lipitor) 40 mg PO HS [facility] Last Admin: 06/17/18 21:02 Dose: 40 mg Calcium Acetate (Phoslo) 667 mg PO WM@0900,1300,1700 [facility] Last Admin: 06/18/18 10:04 Dose: 667 mg Clonidine HCl (Catapres) 0.3 mg PO TID [facility] Last Admin: 06/18/18 10:03 Dose: Not Given Epoetin Mitchell (Procrit) 6,000 unit IV MWF ONE Stop: 06/18/18 12:42 Ergocalciferol (Drisdol 50,000 Intl Units Cap) 1 cap PO Q7D [facility] Last Admin: 06/15/18 17:12 Dose: 1 cap Gabapentin (Neurontin) 100 mg PO TID [facility] Last Admin: 06/18/18 10:06 Dose: 100 mg Hydralazine HCl (Apresoline) 100 mg PO Q8 [facility] Last Admin: 06/18/18 10:03 Dose: Not Given Insulin Human Lispro (Humalog) 0 units SC Q6H [facility] PRN Reason: Protocol Last Admin: 06/18/18 06:32 Dose: 2 unit Losartan Potassium (Cozaar) 50 mg PO QPM [facility] Last Admin: 06/17/18 17:40 Dose: 50 mg Metoprolol Succinate (Toprol Xl) 50 mg PO DAILY [facility] Last Admin: 06/18/18 10:07 Dose: Not Given Ondansetron HCl (Zofran Inj) 4 mg IVP Q6H PRN PRN Reason: Nausea/Vomiting Last Admin: 06/11/18 16:09 Dose: 4 mg Pantoprazole Sodium (Protonix Inj) 40 mg IVP Q12 [facility] Last Admin: 06/18/18 10:06 Dose: 40 mg Tobramycin/Dexamethasone (Tobradex Opht Susp) 1 drop OU QID [facility] Last Admin: 06/18/18 10:07 Dose: 1 drop Vitamin B Complex/Vit C/Folic Acid (Nephro-Elsa) 1 tab PO DAILY [facility] Last Admin: 06/18/18 10:05 Dose: 1 tab - Labs Labs: 06/18/18 04:20 06/17/18 05:15 PT 12.4 Seconds (9.8-13.1) 06/12/18 05:00 INR 1.1 (0.9-1.2) 06/12/18 05:00 APTT 30.4 Seconds (25.6-37.1) 06/12/18 05:00 - Constitutional Appears: No Acute Distress - ENT Exam ENT Exam: Mucous Membranes Moist - Neck Exam Neck Exam: absent: Lymphadenopathy - Respiratory Exam Respiratory Exam: NORMAL BREATHING PATTERN. absent: Chest Wall Tenderness - GI/Abdominal Exam GI & Abdominal Exam: Soft - Extremities Exam Extremities Exam: absent: Calf Tenderness - Back Exam Back Exam: absent: CVA tenderness (L), CVA tenderness (R) - Neurological Exam Neurological Exam: Alert - Psychiatric Exam Psychiatric exam: Normal Affect - Skin Skin Exam: absent: Cyanosis Assessment and Plan (1) Chronic kidney disease, stage V Assessment & Plan: Scheduled for hemodialysis shortly order in place Status post a new AV fistula in the right arm with positive bruit status post and permacath inserted 06/17 Diabetic chronic Kidney Disease (E11.22) Hypertensive Chronic Kidney Disease (I12.0) New onset End stage renal disease (N18.6) dependence on hemodialysis (Z99.2) via shiley Anemia (D64.9),start EPO immediately Hyperphosphatemia (E83.39), Secondary Hyperparathyroidism (E21.1), HTN (I12.0) Patient will have follow-up as outpatient at the dialysis unit Status: Acute (2) GI bleed Status: Acute (3) Gastroparesis Status: Acute
[2018-06-18] MEDS ORDERED: Epoetin Alfa 20000 UNIT/ML Inj IV ONE (12:41)
--- NOTE | 2018-06-18 13:32 | CP.PCM.PN ---
<Jolanta Barnard - Last Filed: 06/18/18 15:47> Subjective - Date & Time of Evaluation Date of Evaluation: 06/18/18 Time of Evaluation: 06:45 - Subjective Subjective: Pt underwent procedure with IR for permacath placement. No acute overnight events. Pt feeling well this AM. Denies chest pain, dyspnea, n/v/d/c, fever, chill and tolerating PO. Objective - Vital Signs/Intake and Output Vital Signs (last 24 hours): Temp Pulse Resp BP Pulse Ox 98.6 F 71 20 152/89 H 97 06/18/18 12:49 06/18/18 12:49 06/18/18 12:49 06/18/18 12:49 06/18/18 12:49 Intake and Output: 06/18/18 06/18/18 06:59 18:59 Output Total 410 Balance -410 - Medications Medications: Current Medications Amlodipine Besylate (Norvasc) 10 mg PO DAILY [facility] Last Admin: 06/18/18 10:06 Dose: Not Given Atorvastatin Calcium (Lipitor) 40 mg PO HS [facility] Last Admin: 06/17/18 21:02 Dose: 40 mg Calcium Acetate (Phoslo) 667 mg PO WM@0900,1300,1700 [facility] Last Admin: 06/18/18 10:04 Dose: 667 mg Clonidine HCl (Catapres) 0.3 mg PO TID [facility] Last Admin: 06/18/18 10:03 Dose: Not Given Ergocalciferol (Drisdol 50,000 Intl Units Cap) 1 cap PO Q7D [facility] Last Admin: 06/15/18 17:12 Dose: 1 cap Gabapentin (Neurontin) 100 mg PO TID [facility] Last Admin: 06/18/18 10:06 Dose: 100 mg Hydralazine HCl (Apresoline) 100 mg PO Q8 [facility] Last Admin: 06/18/18 10:03 Dose: Not Given Insulin Human Lispro (Humalog) 0 units SC Q6H [facility] PRN Reason: Protocol Last Admin: 06/18/18 06:32 Dose: 2 unit Losartan Potassium (Cozaar) 50 mg PO QPM [facility] Last Admin: 06/17/18 17:40 Dose: 50 mg Metoprolol Succinate (Toprol Xl) 50 mg PO DAILY [facility] Last Admin: 06/18/18 10:07 Dose: Not Given Ondansetron HCl (Zofran Inj) 4 mg IVP Q6H PRN PRN Reason: Nausea/Vomiting Last Admin: 06/11/18 16:09 Dose: 4 mg Pantoprazole Sodium (Protonix Inj) 40 mg IVP Q12 [facility] Last Admin: 06/18/18 10:06 Dose: 40 mg Tobramycin/Dexamethasone (Tobradex Opht Susp) 1 drop OU QID [facility] Last Admin: 06/18/18 10:07 Dose: 1 drop Vitamin B Complex/Vit C/Folic Acid (Nephro-Elsa) 1 tab PO DAILY [facility] Last Admin: 06/18/18 10:05 Dose: 1 tab - Labs Labs: 06/18/18 04:20 06/17/18 05:15 PT 12.4 Seconds (9.8-13.1) 06/12/18 05:00 INR 1.1 (0.9-1.2) 06/12/18 05:00 APTT 30.4 Seconds (25.6-37.1) 06/12/18 05:00 - Constitutional Appears: No Acute Distress - Head Exam Head Exam: NORMAL INSPECTION - Eye Exam Eye Exam: EOMI - ENT Exam ENT Exam: Mucous Membranes Moist - Respiratory Exam Respiratory Exam: Clear to Ausculation Bilateral. absent: Wheezes - Cardiovascular Exam Cardiovascular Exam: REGULAR RHYTHM, +S1, +S2 - GI/Abdominal Exam GI & Abdominal Exam: Soft, Normal Bowel Sounds. absent: Tenderness - Extremities Exam Extremities Exam: absent: Calf Tenderness, Pedal Edema Additional comments: RLE below ankle amputation - Back Exam Back Exam: NORMAL INSPECTION - Neurological Exam Neurological Exam: Alert, Awake - Psychiatric Exam Psychiatric exam: Normal Mood Assessment and Plan - Assessment and Plan (Free Text) Assessment: Assessment/Plan: 47 YO male with PMHx of ESRD, DM2, HTN, HLD, gastroparesis admitted for GI symptoms found to be on acute on chronic renal failure. VS stable, elevated bp, labs reviewed. -plan as ordered -nephrology consult; on HD; s/p AV fistula (R) during this admission; permacath placed 06/17 -on HD on MWF -surgery on board; F/u at Dr. Kulkarni's office in 1 month to schedule for 2nd part of the operation to raise the AVF to the surface -GI on board -Pending PT for dispo Pt seen and examined with Dr. Lake <Joel Lake - Last Filed: 06/22/18 19:23> Objective - Vital Signs/Intake and Output Vital Signs (last 24 hours): Temp Pulse Resp BP Pulse Ox 98.5 F 87 18 122/78 97 06/19/18 13:00 06/19/18 13:00 06/19/18 13:00 06/19/18 13:00 06/19/18 13:00 - Labs Labs: 06/19/18 05:33 06/19/18 05:33 PT 12.4 Seconds (9.8-13.1) 06/12/18 05:00 INR 1.1 (0.9-1.2) 06/12/18 05:00 APTT 30.4 Seconds (25.6-37.1) 06/12/18 05:00 Assessment and Plan - Assessment and Plan (Free Text) Assessment: Patient was personally seen and examined by me in rounds with residents. Available labs and diagnostic data reviewed. Case, Patient's condition and management plan discussed with residents in rounds. Agree with resident's progress note. Plan: As ordered.
[2018-06-19 00:05] VITALS: RESP 18
[2018-06-19 05:44] LABS: MEAN CELL VOLUME 78.9 fl (80.0-94.0); MEAN CORPUSCULAR HGB CONC 32.9 g/dL (33.0-37.0); RBC 3.46 Mil/uL (4.40-5.90); RED CELL DISTRIBUTION WIDTH 13.8 % (11.5-14.5); WHITE BLOOD COUNT 13.5 K/uL (4.8-10.8)
[2018-06-19 06:05] LABS: CALCIUM 8.5 mg/dL (8.4-10.2)
[2018-06-19] MEDS: Insulin Lispro (humaLOG) 100 Units/ml Inj SC SCH ×2 (06:37→12:40)
[2018-06-19] MEDS: Metoprolol Succinate 50 mg XL Tab PO SCH (09:45)
[2018-06-19] MEDS: Multivitamin Vitamin B Complex (Nephro-Vite) Tab PO SCH (09:46)
[2018-06-19] MEDS: Dexamethasone/Tobramycin Ophth Susp OU SCH ×2 (09:46→12:41)
--- NOTE | 2018-06-19 10:59 | CP.PCM.PN ---
Subjective - Date & Time of Evaluation Date of Evaluation: 06/19/18 Time of Evaluation: 10:58 - Subjective Subjective: patient M bed awake and conscious feeling comfortable no nausea no vomiting no chest pain Objective - Vital Signs/Intake and Output Vital Signs (last 24 hours): Temp Pulse Resp BP Pulse Ox 98.4 F 90 18 146/86 99 06/19/18 08:00 06/19/18 09:48 06/19/18 08:00 06/19/18 09:48 06/19/18 08:00 - Medications Medications: Current Medications Amlodipine Besylate (Norvasc) 10 mg PO DAILY [facility] Last Admin: 06/19/18 09:48 Dose: 10 mg Atorvastatin Calcium (Lipitor) 40 mg PO HS [facility] Last Admin: 06/18/18 22:32 Dose: 40 mg Calcium Acetate (Phoslo) 667 mg PO WM@0900,1300,1700 [facility] Last Admin: 06/19/18 09:44 Dose: 667 mg Clonidine HCl (Catapres) 0.3 mg PO TID [facility] Last Admin: 06/19/18 09:47 Dose: 0.3 mg Ergocalciferol (Drisdol 50,000 Intl Units Cap) 1 cap PO Q7D [facility] Last Admin: 06/15/18 17:12 Dose: 1 cap Gabapentin (Neurontin) 100 mg PO TID [facility] Last Admin: 06/19/18 09:44 Dose: 100 mg Hydralazine HCl (Apresoline) 100 mg PO Q8 [facility] Last Admin: 06/19/18 09:47 Dose: 100 mg Vancomycin HCl 1 gm/ Sodium (Chloride) 250 mls @ 166.667 mls/hr IVPB ONCE ONE PRN Reason: Protocol Stop: 06/19/18 11:14 Insulin Human Lispro (Humalog) 0 units SC Q6H [facility] PRN Reason: Protocol Last Admin: 06/19/18 06:37 Dose: 2 unit Losartan Potassium (Cozaar) 50 mg PO QPM [facility] Last Admin: 06/18/18 17:24 Dose: Not Given Metoprolol Succinate (Toprol Xl) 50 mg PO DAILY [facility] Last Admin: 06/19/18 09:45 Dose: 50 mg Ondansetron HCl (Zofran Inj) 4 mg IVP Q6H PRN PRN Reason: Nausea/Vomiting Last Admin: 06/11/18 16:09 Dose: 4 mg Pantoprazole Sodium (Protonix Inj) 40 mg IVP Q12 [facility] Last Admin: 06/19/18 09:46 Dose: 40 mg Tobramycin/Dexamethasone (Tobradex Opht Susp) 1 drop OU QID [facility] Last Admin: 06/19/18 09:46 Dose: 1 drop Vitamin B Complex/Vit C/Folic Acid (Nephro-Elsa) 1 tab PO DAILY [facility] Last Admin: 06/19/18 09:46 Dose: 1 tab - Labs Labs: 06/19/18 05:33 06/19/18 05:33 PT 12.4 Seconds (9.8-13.1) 06/12/18 05:00 INR 1.1 (0.9-1.2) 06/12/18 05:00 APTT 30.4 Seconds (25.6-37.1) 06/12/18 05:00 - Constitutional Appears: No Acute Distress - ENT Exam ENT Exam: Mucous Membranes Moist - Neck Exam Neck Exam: absent: Lymphadenopathy - Respiratory Exam Respiratory Exam: absent: Chest Wall Tenderness - Cardiovascular Exam Cardiovascular Exam: REGULAR RHYTHM. absent: Gallop, JVD, Rubs - GI/Abdominal Exam GI & Abdominal Exam: Soft - Extremities Exam Extremities Exam: absent: Calf Tenderness - Back Exam Back Exam: absent: CVA tenderness (L), CVA tenderness (R) - Neurological Exam Neurological Exam: Alert - Psychiatric Exam Psychiatric exam: Normal Affect - Skin Skin Exam: absent: Cyanosis Assessment and Plan (1) Chronic kidney disease, stage V Assessment & Plan: Status post a new AV fistula in the right arm with positive bruit status post and permacath inserted 06/17 Diabetic chronic Kidney Disease (E11.22) Hypertensive Chronic Kidney Disease (I12.0) New onset End stage renal disease (N18.6) dependence on hemodialysis (Z99.2) via shiley Anemia (D64.9),start EPO immediately Hyperphosphatemia (E83.39), Secondary Hyperparathyroidism (E21.1), HTN (I12.0) Patient will have follow-up as outpatient at the dialysis unit leukocytosis worsening about 13,000 discussed with the nurse practitioner to give empiric antibiotics vancomycin and gentamicin today Status: Acute (2) GI bleed Status: Acute (3) Gastroparesis Status: Acute
--- NOTE | 2018-06-19 11:58 | CP.PCM.DIS ---
Provider - Provider Date of Admission: 06/05/18 23:04 Attending physician: Joel Lake MD Time Spent in preparation of Discharge (in minutes): 20 Diagnosis - Discharge Diagnosis (1) Acute on chronic renal failure Status: Acute (2) Electrolyte abnormality Status: Acute (3) GI bleed Status: Acute (4) Gastroparesis Status: Acute (5) HTN (hypertension) Status: Acute (6) Abdominal pain Status: Acute (7) Hyperlipidemia Status: Chronic (8) IDDM (insulin dependent diabetes mellitus) Status: Chronic Priority: Medium Hospital Course - Lab Results Lab Results: Micro Results 06/05/18 21:15 Blood Blood Culture - Final NO GROWTH AFTER 5 DAYS 06/05/18 21:15 Blood Gram Stain - Final TEST NOT PERFORMED 06/05/18 21:15 Blood Blood Culture - Final NO GROWTH AFTER 5 DAYS 06/05/18 21:15 Blood Gram Stain - Final TEST NOT PERFORMED 06/08/18 10:00 Nose MRSA Culture (Admit) - Final MRSA NOT DETECTED 06/06/18 09:45 Nose MRSA Culture (Admit) - Final Most Recent Lab Values WBC 13.5 K/uL (4.8-10.8) H 06/19/18 05:33 RBC 3.46 Mil/uL (4.40-5.90) L 06/19/18 05:33 Hgb 9.0 g/dL (12.0-18.0) L 06/19/18 05:33 Hct 27.3 % (35.0-51.0) L 06/19/18 05:33 MCV 78.9 fl (80.0-94.0) L 06/19/18 05:33 MCH 26.0 pg (27.0-31.0) L 06/19/18 05:33 MCHC 32.9 g/dL (33.0-37.0) L 06/19/18 05:33 RDW 13.8 % (11.5-14.5) 06/19/18 05:33 Plt Count 220 K/uL (130-400) 06/19/18 05:33 MPV 9.8 fl (7.2-11.7) 06/05/18 21:15 Neut % (Auto) 93.1 % (50.0-75.0) H 06/05/18 21:15 Lymph % (Auto) 3.7 % (20.0-40.0) L 06/05/18 21:15 [place] % (Auto) 2.9 % (0.0-10.0) 06/05/18 21:15 Eos % (Auto) 0.0 % (0.0-4.0) 06/05/18 21:15 Baso % (Auto) 0.3 % (0.0-2.0) 06/05/18 21:15 Neut # (Auto) 26.0 K/uL (1.8-7.0) H 06/05/18 21:15 Lymph # (Auto) 1.0 K/uL (1.0-4.3) 06/05/18 21:15 [place] # (Auto) 0.8 K/uL (0.0-0.8) 06/05/18 21:15 Eos # (Auto) 0.0 K/uL (0.0-0.7) 06/05/18 21:15 Baso # (Auto) 0.1 K/uL (0.0-0.2) 06/05/18 21:15 Neutrophils % (Manual) 91 % (42-75) H 06/05/18 21:15 Lymphocytes % (Manual) 7 % (20-50) L 06/05/18 21:15 Monocytes % (Manual) 2 % (0-10) 06/05/18 21:15 Hypersegmented Polys Present 06/05/18 21:15 Platelet Estimate Normal (NORMAL) 06/05/18 21:15 Large Platelets Present 06/05/18 21:15 Hypochromasia (manual) Slight 06/05/18 21:15 Anisocytosis (manual) Slight 06/05/18 21:15 Macrocytosis (manual) Slight 06/05/18 21:15 Tear Drop Cells Slight 06/05/18 21:15 Ovalocytes Moderate 06/05/18 21:15 PT 12.4 Seconds (9.8-13.1) 06/12/18 05:00 INR 1.1 (0.9-1.2) 06/12/18 05:00 APTT 30.4 Seconds (25.6-37.1) 06/12/18 05:00 pO2 64 mm/Hg (30-55) H 06/06/18 00:21 VBG pH 7.36 (7.32-7.43) 06/06/18 00:21 VBG pCO2 40 mmHg (40-60) 06/06/18 00:21 VBG HCO3 22.7 mmol/L 06/06/18 00:21 VBG Total CO2 23.8 mmol/L (22-28) 06/06/18 00:21 VBG O2 Sat (Calc) 95.3 % (40-65) H 06/06/18 00:21 VBG Base Excess -2.7 mmol/L (0.0-2.0) L 06/06/18 00:21 VBG Potassium 3.1 mmol/L (3.6-5.2) L 06/06/18 00:21 Sodium 137.0 mmol/L (132-148) 06/06/18 00:21 Chloride 95.0 mmol/L (98-107) L 06/06/18 00:21 Glucose 333 mg/dL (75-110) H 06/06/18 00:21 Lactate 2.8 mmol/L (0.7-2.1) H 06/06/18 00:21 FiO2 21.0 % 06/06/18 00:21 Crit Value Called To Dr bacilio berry 06/05/18 21:30 Crit Value Called By Rt 06/05/18 21:30 Crit Value Read Back Y 06/05/18 21:30 Blood Gas Notified Time 215706/05/18 21:30 Sodium 135 mmol/l (132-148) 06/19/18 05:33 Potassium 4.3 MMOL/L (3.6-5.0) 06/19/18 05:33 Chloride 99 mmol/L (98-107) 06/19/18 05:33 Carbon Dioxide 25 mmol/L (22-30) 06/19/18 05:33 Anion Gap 15 (10-20) 06/19/18 05:33 BUN 25 mg/dl (9-20) H 06/19/18 05:33 Creatinine 2.5 mg/dl (0.8-1.5) H 06/19/18 05:33 Est GFR ( Amer) 34 06/19/18 05:33 Est GFR (Non-Af Amer) 28 06/19/18 05:33 POC Glucose (mg/dL) 168 mg/dL (65-110) H 06/18/18 16:04 Random Glucose 240 mg/dL (75-110) H 06/19/18 05:33 Serum Osmolality 343 mosm/kg (272-300) H 06/06/18 12:14 Calcium 8.5 mg/dL (8.4-10.2) 06/19/18 05:33 Phosphorus 2.5 mg/dl (2.5-4.5) 06/12/18 05:00 Magnesium 1.6 MG/DL (1.6-2.3) 06/12/18 05:00 Iron 82 ug/dL (49-181) 06/08/18 04:45 TIBC 231 ug/dL (250-450) L 06/08/18 04:45 % Saturation 36 % (20-55) 06/08/18 04:45 Ferritin 388.0 ng/Ml (17.9-464) 06/08/18 04:45 Total Bilirubin 0.4 mg/dl (0.2-1.3) 06/17/18 05:15 AST 14 U/L (17-59) L 06/17/18 05:15 ALT 20 U/L (21-72) L D 06/17/18 05:15 Alkaline Phosphatase 100 U/L (38-126) 06/17/18 05:15 Troponin I 0.0360 ng/mL (0.00-0.120) 06/09/18 16:01 NT-Pro-B Natriuret Pep 4430 pg/ml (0-450) H 06/06/18 13:27 Total Protein 6.5 G/DL (6.3-8.2) 06/17/18 05:15 Albumin 3.4 g/dL (3.5-5.0) L 06/17/18 05:15 Globulin 3.1 gm/dL (2.2-3.9) 06/17/18 05:15 Albumin/Globulin Ratio 1.1 (1.0-2.1) 06/17/18 05:15 25-OH Vitamin D Total 16.0 NG/ML (30.0-100.0) L 06/08/18 04:45 PTH Intact Whole Molec 112 pg/mL (14-64) H 06/08/18 04:45 Venous Blood Potassium 3.1 mmol/L (3.6-5.2) L 06/06/18 00:21 Urine Color Yellow (YELLOW) 06/18/18 02:45 Urine Clarity Clear (Clear) 06/18/18 02:45 Urine pH 6.0 (5.0-8.0) 06/18/18 02:45 Ur Specific Palmer 1.008 (1.003-1.030) 06/18/18 02:45 Urine Protein 100 mg/dL (NEGATIVE) 06/18/18 02:45 Urine Glucose (UA) 50 mg/dL (Normal) 06/18/18 02:45 Urine Ketones Negative mg/dL (NEGATIVE) 06/18/18 02:45 Urine Blood Negative (NEGATIVE) 06/18/18 02:45 Urine Nitrate Negative (NEGATIVE) 06/18/18 02:45 Urine Bilirubin Negative (NEGATIVE) 06/18/18 02:45 Urine Urobilinogen 0.2-1.0 mg/dL (0.2-1.0) 06/18/18 02:45 Ur Leukocyte Esterase Neg Gomez/uL (Negative) 06/18/18 02:45 Urine RBC (Auto) 1 /hpf (0-3) 06/18/18 02:45 Urine Microscopic WBC 1 /hpf (0-5) 06/18/18 02:45 Ur Squamous Epith Cells < 1 /hpf (0-5) 06/18/18 02:45 Urine Bacteria Rare (<OCC) 06/18/18 02:45 Stool Occult Blood Positive (NEGATIVE) H 06/06/18 01:03 Alcohol, Quantitative < 10 mg/dl (0-10) 06/05/18 21:15 Hepatitis A IgM Ab Negative (NEGATIVE) 06/06/18 16:35 Hep Bs Antigen Negative (NEGATIVE) 06/06/18 16:35 Hep Bs Antibody Negative (NEGATIVE) 06/07/18 14:30 Hep B Core IgM Ab Negative (NEGATIVE) 06/06/18 16:35 Hepatitis C Antibody Negative (NEGATIVE) 06/06/18 16:35 Blood Type O NEGATIVE 06/05/18 21:15 Antibody Screen Negative 06/05/18 21:15 BBK History Checked Patient has bt 06/05/18 21:15 - Hospital Course Hospital Course: 47 YO male with PMHx of ESRD, DM2, HTN, HLD, gastroparesis admitted for GI symptoms found to be on acute on chronic renal failure. Nephrology and GI was consulted, pt was dialyzed. Pt underwent procedure for new AV fistula (R) 06/13 ( for dialysis) and permacath placed 06/17. PT was able to work with patient, recommended JAIME but pt refusing and would like to go home. Pt ambulating, tolerating diet and remains hemodynamically stable. Pt cleared by consultants to be d/c home. Will d/c patient home with folllow up at Dr. Kulkarni's office in 1 month to schedule for 2nd part of the operation to raise the AVF to the surface, with Nephrology for dialysis and with PMD in 1 week. Discharge Exam - Head Exam Head Exam: NORMAL INSPECTION - Eye Exam Eye Exam: Normal appearance - ENT Exam ENT Exam: Mucous Membranes Moist - Neck Exam Additional comments: L subclavian permacath noted, site clean and intact - Respiratory Exam Respiratory Exam: Clear to PA & Lateral. absent: Wheezes - Cardiovascular Exam Cardiovascular Exam: REGULAR RHYTHM, +S1, +S2 - GI/Abdominal Exam GI & Abdominal Exam: Normal Bowel Sounds, Soft. absent: Tenderness - Extremities Exam Extremities exam: normal inspection Additional comments: R below ankle amputation - Neurological Exam Neurological exam: Alert, Oriented x3 - Psychiatric Exam Psychiatric exam: Normal Affect, Normal Mood Discharge Plan - Discharge Medications Prescriptions: Calcium Acetate [Phoslo] 667 mg PO WM@0900,1300,1700 #90 tab Vitamin B Complex/Vit C/Folic [Nephro-Elsa] 1 tab PO DAILY #30 tab - Follow Up Plan Condition: SERIOUS Disposition: HOME/ ROUTINE Instructions: Hemodialysis (DC), Chronic Kidney Disease (DC), Dialysis and Diet Additional Instructions: follow up at Dr. Kulkarni's office to schedule for second part of the procedure in 2-3 weeks after discharge. Second part of the surgery will include elevating ArterioVenous Fistula for eventual use Ok to take shower. follow up with pmd and dr rodríguez continue dialysis [facility] Referrals: Kamille Kulkarni MD [Medical Doctor] - Ysabel Gee [Family Provider] - Kobe Rodríguez MD [Staff Provider] -
[2018-06-19 12:42] VITALS: PULSE 87
[2018-06-19 12:53] VITALS: TEMP 98.5; O2SAT 97
[2018-06-19 14:06] VITALS: BP 122/78
--- NOTE | 2018-06-19 17:41 | CP.PCM.PN ---
Subjective - Date & Time of Evaluation Date of Evaluation: 06/18/18 Time of Evaluation: 17:30 - Subjective Subjective: no overnight events Objective - Vital Signs/Intake and Output Vital Signs (last 24 hours): Temp Pulse Resp BP Pulse Ox 98.5 F 87 18 122/78 97 06/19/18 13:00 06/19/18 13:00 06/19/18 13:00 06/19/18 13:00 06/19/18 13:00 - Labs Labs: 06/19/18 05:33 06/19/18 05:33 PT 12.4 Seconds (9.8-13.1) 06/12/18 05:00 INR 1.1 (0.9-1.2) 06/12/18 05:00 APTT 30.4 Seconds (25.6-37.1) 06/12/18 05:00 - Head Exam Head Exam: NORMAL INSPECTION, NORMOCEPHALIC - Neck Exam Neck Exam: Normal Inspection - Respiratory Exam Respiratory Exam: Clear to Ausculation Bilateral, NORMAL BREATHING PATTERN - Cardiovascular Exam Cardiovascular Exam: REGULAR RHYTHM - GI/Abdominal Exam GI & Abdominal Exam: Soft, Normal Bowel Sounds Assessment and Plan - Assessment and Plan (Free Text) Assessment: 47 yo male with coffee grounds emesis doing well dc planning
== END 2018-06-19 14:06 | disposition home health service (06) | DRG 674 ==
LOC: H.ER 20:36 → H.ERHOLD 23:04 → H.ICU/CCU 06-06 06:38 → H.TEL 06-08 04:54
PROVIDERS: ADMIT Internal Medicine; ATTEND Internal Medicine
PROC: 05HM33Z Insertion of Infusion Device into Right Internal Jugular Vein, Percutaneous Approach (ICD-10-PCS; 2018-06-06)
PROC: B543ZZA Ultrasonography of Right Jugular Veins, Guidance (ICD-10-PCS; 2018-06-06)
PROC: 5A1D70Z Performance of Urinary Filtration, Intermittent, Less than 6 Hours Per Day (ICD-10-PCS; 2018-06-06)
PROC: 5A1D70Z Performance of Urinary Filtration, Intermittent, Less than 6 Hours Per Day (ICD-10-PCS; 2018-06-07)
PROC: 5A1D70Z Performance of Urinary Filtration, Intermittent, Less than 6 Hours Per Day (ICD-10-PCS; 2018-06-09)
PROC: B246ZZ4 Ultrasonography of Right and Left Heart, Transesophageal (ICD-10-PCS; 2018-06-11)
PROC: 05PY33Z Removal of Infusion Device from Upper Vein, Percutaneous Approach (ICD-10-PCS; 2018-06-13)
PROC: 05HN33Z Insertion of Infusion Device into Left Internal Jugular Vein, Percutaneous Approach (ICD-10-PCS; 2018-06-13)
PROC: B514ZZA Fluoroscopy of Left Jugular Veins, Guidance (ICD-10-PCS; 2018-06-13)
PROC: 5A1D70Z Performance of Urinary Filtration, Intermittent, Less than 6 Hours Per Day (ICD-10-PCS; 2018-06-13)
PROC: 03180ZF Bypass Left Brachial Artery to Lower Arm Vein, Open Approach (ICD-10-PCS; principal; 2018-06-13 09:00)
PROC: 5A1D70Z Performance of Urinary Filtration, Intermittent, Less than 6 Hours Per Day (ICD-10-PCS; 2018-06-16)
PROC: 02HV33Z Insertion of Infusion Device into Superior Vena Cava, Percutaneous Approach (ICD-10-PCS; 2018-06-17)
PROC: B548ZZA Ultrasonography of Superior Vena Cava, Guidance (ICD-10-PCS; 2018-06-17)
PROC: 5A1D70Z Performance of Urinary Filtration, Intermittent, Less than 6 Hours Per Day (ICD-10-PCS; 2018-06-18)
DX: N17.9 Acute kidney failure, unspecified (principal); I12.0 Hypertensive chronic kidney disease with stage 5 chronic kidney disease or end stage renal disease; K92.0 Hematemesis; E87.6 Hypokalemia; K31.84 Gastroparesis; N18.6 End stage renal disease; N25.81 Secondary hyperparathyroidism of renal origin; D72.828 Other elevated white blood cell count; E11.22 Type 2 diabetes mellitus with diabetic chronic kidney disease; E11.43 Type 2 diabetes mellitus with diabetic autonomic (poly)neuropathy; D63.1 Anemia in chronic kidney disease; E78.00 Pure hypercholesterolemia, unspecified; E78.5 Hyperlipidemia, unspecified; E83.39 Other disorders of phosphorus metabolism; Z99.2 Dependence on renal dialysis; Z91.19 Patient's noncompliance with other medical treatment and regimen; Z89.431 Acquired absence of right foot; Z79.4 Long term (current) use of insulin; Z79.84 Long term (current) use of oral hypoglycemic drugs; Z86.73 Personal history of transient ischemic attack (TIA), and cerebral infarction without residual deficits; Z88.0 Allergy status to penicillin

== ENCOUNTER 2018-06-21 22:09 | Inpatient (IN) | payer OTHER ==
[2018-06-21 22:09] VITALS: BMI 36.5
[2018-06-21] MEDS ORDERED: DiphenhydrAMINE 50 mg/ml Inj IVP STA (22:36)
[2018-06-21] MEDS ORDERED: Sodium Chloride 0.9% 500 ML IV ONE (23:03)
--- NOTE | 2018-06-21 23:06 | ED PDOC ---
HPI:Nausea, Vomiting, Diarrhea Chief Complaint (Provider): vomiting, abdominal pain History Per: Patient History/Exam Limitations: no limitations Onset/Duration Of Symptoms: Days (1 day) Current Symptoms Are (Timing): Still Present Have you had recent travel within the past 21 days to any of the following countries: [place], [place], [place] or [place]?: No Severity: Severe Pain Scale Rating Of: 8 Quality Of Discomfort: Aching Associated Symptoms: Nausea, Vomiting (bright red blood). denies: Fever, Diarrhea, Constipation, Urinary Symptoms Exacerbating Factors: Food Alleviating Factors: None Last Bowel Movement: Days Ago (3, hard stool) Additional History Per: Patient Additional Complaint(s): 47 yr old M presents to ED with complaint of abdominal pain and vomiting since yesterday afternoon. PMHx includes ESRD (hemodialysis started during recent admission to [facility]), IDDM, HTN, hx CVA, HLD, gastroparesis and anemia. Patient reports he was discharged on 06/19/18 and felt fine. His last hemodialysis was yesterday at 1pm, denies complications. Reports afterwards at home he started vomiting and has not tolerated anything since then. Associated symptoms are diffuse abdominal pain and overall malaise. Denies fever, chills, diarrhea, SOB , dysuria, hematuria. Patient produces urine. Last bowel movement was 3 days ago , was hard, reports hx constipation. [facility] records reviewed: patient had abd/ pelvis CT on 06/05/18: no bowel obstruction, moderate fecal loading; 06/06/18 abd xray: no obstruction; evaluated by GI: assessment was likely gastroparesis, less likely GI bleed, hgb was stable, hx esophagitis 1 yr ago; Nuc Med Myocardial Perfusion Scan: ischemia in territory of LCx, consider further risk stratification with invasive cardiac catheterization. PMD: [facility] [place] Nephrology: Dr. Rodríguez Surgery: Dr. Kulkarni PMHx: ESRD (last HD yesterday), IDDM, HTN, hx left cerebellar ischemic CVA 2016, HLD, gastroparesis, esophagitis and anemia SurgHx: RLE partial foot amputation (below ankle) 2013, craniotomy with decompression 08/2017 FMHx: unknown SocHx: denies tobacco/Etoh or drugs Medications: see medication reconciliation Allergies: Penicillin <Keerthi Willson - Last Filed: 06/22/18 01:07> <Genna Fiore - Last Filed: 06/22/18 15:25> Time Seen by Provider: 06/21/18 22:20 Chief Complaint (Nursing): GI Problem Supervising Attending Note - Supervising Attending Note The Documented history was done by the: Physician Ludlow Machine Operator, Attending Physician The documented physical exam was done by the: Physician Ludlow Machine Operator, Attending Physician - Attestation: I have personally seen and examined this patient.: Yes I have fully participated in the care of the patient.: Yes I have reviewed all pertinent clinical information, including history, physical exam and plan: Yes - Notes: Notes:: Vomiting with h/o GI bleed and gastroparesis. Hgb stable and vitals improved after acute treatment of hematemesis. Reviewed previous charts, [facility]ine GI. No protonix drip at this time given pt's most recent endoscopy did not demonstrate ulcer. NADINE Lake for hospitalization. <Genna Fiore - Last Filed: 06/22/18 15:25> Past Medical History Vital Signs: Last Vital Signs Temp 97.2 F L 06/21/18 22:12 Pulse 140 H 06/21/18 22:12 Resp 22 06/21/18 22:12 BP 167/94 H 06/21/18 22:12 Pulse Ox 100 06/21/18 22:12 - Medical History PMH: Anemia, CVA, Diabetes (type II), HTN, Hypercholesterolemia, Hyperlipidemia , End Stage Renal Disease, Chronic Kidney Disease (ESRD pending HD) Denies: Arthritis, CHF, COPD, HIV, Hypothyroidism, Rheumatoid Arthritis Other PMH: CVA - Surgical History Other surgeries: Craniotomy with decompression, RLE partial amputation below ankle - Family History Family History: States: Unknown Family Hx - Living Arrangements Living Arrangements: Alone - Social History Current smoker - smoking cessation education provided: No Ex-Smoker (has not smoked in the last 12 months): No Alcohol: None Drugs: Denies - Immunization History Hx Tetanus Toxoid Vaccination: No Hx Influenza Vaccination: No Hx Pneumococcal Vaccination: No <Keerthi Willson - Last Filed: 06/22/18 01:07> Vital Signs: Last Vital Signs Temp 97.8 F 06/22/18 12:00 Pulse 83 06/22/18 13:38 Resp 20 06/22/18 12:00 BP 138/86 06/22/18 13:38 Pulse Ox 97 06/22/18 12:00 <Genna Fiore - Last Filed: 06/22/18 15:25> - Home Medications Home Medications: Ambulatory Orders Medication Instructions Recorded Ferrous Sulfate 325 mg PO BID #0 tablet 10/15/16 Folic Acid 1 mg PO DAILY 12/01/16 Glipizide [Glipizide ER] 10 mg PO BID 12/01/16 Allopurinol [Zyloprim] 100 mg PO DAILY tab 07/19/17 Calcitriol 0.25 cap PO MWF 08/05/17 hydrALAZINE [Apresoline] 100 mg PO Q8 tab 09/26/17 Gabapentin [Neurontin] 100 mg PO TID 12/13/17 Magnesium Oxide [Mag-Ox] 400 mg PO BID 12/13/17 Nifedipine [Nifedipine ER] 30 mg PO DAILY 12/13/17 SITagliptin [Januvia] 50 mg PO BID 12/13/17 cloNIDine [Catapres] 0.3 mg PO TID 12/13/17 buPROPion [Wellbutrin] 100 mg PO BID 06/06/18 Atorvastatin [Lipitor] 40 mg PO HS tab 06/19/18 Calcium Acetate [Phoslo] 667 mg PO WM@0900,1300,1700 #90 tab 06/19/18 Losartan [Cozaar] 50 mg PO QPM tab 06/19/18 Metoprolol Succinate XL [Toprol XL] 50 mg PO DAILY tab 06/19/18 Vitamin B Complex/Vit C/Folic 1 tab PO DAILY #30 tab 06/19/18 [Nephro-Elsa] amLODIPine [Norvasc] 10 mg PO DAILY tab 06/19/18 - Allergies Allergies/Adverse Reactions: Allergies Allergy/AdvReac Type Severity Reaction Status Date / Time Penicillins Allergy RASH Verified 06/21/18 22:12 Review of Systems Constitutional: Positive for: Malaise. Negative for: Fever, Chills Cardiovascular: Negative for: Chest Pain, Palpitations Respiratory: Negative for: Cough, Shortness of Breath, Hemoptysis, SOB with Exertion Gastrointestinal: Positive for: Nausea, Vomiting (streaked with bright red blood ), Abdominal Pain (diffuse) Genitourinary Male: Negative for: Dysuria, Frequency Musculoskeletal: Negative for: Neck Pain, Shoulder Pain, Arm Pain Skin: Negative for: Rash, Lesions Neurological: Negative for: Change in Speech, Confusion, Seizures, Altered Mental Status, Dizziness <Keerthi Willson - Last Filed: 06/22/18 01:07> Physical Exam - Physical Exam Appears: Positive for: Uncomfortable (in mild distress due to vomiting) Head Exam: Positive for: ATRAUMATIC, NORMOCEPHALIC Skin: Positive for: Normal Color, Warm, Dry Eye Exam: Positive for: EOMI, PERRL ENT: Negative for: Pharyngeal Erythema Neck: Positive for: Painless ROM, Supple Cardiovascular/Chest: Positive for: Tachycardia. Negative for: Gallop, Murmur Respiratory: Positive for: Normal Breath Sounds. Negative for: Accessory Muscle Use, Crackles, Rales, Rhonchi Pulses-Carotid (L): 2+ Pulses-Carotid (R): 2+ Pulses-Dorsalis Pedis (L): 2+ Pulses-Radial (L): 2+ Pulses-Radial (R): 2+ Gastrointestinal/Abdominal: Positive for: Bowel Sounds (present, normal, obese) , Soft, Tenderness (diffuse tenderness to palpation), Other (active vomiting, minimal yellow blood streaked phlegm). Negative for: Distended, Guarding, Rebound Back: Positive for: Normal Inspection Extremity: Negative for: Normal ROM (RLE amputation below ankle), Pedal Edema, Calf Tenderness Lymphatic: Negative for: Adenopathy Neurologic/Psych: Positive for: Alert, hoseman II-XII, Oriented, Mood/Affect (full range). Negative for: Motor/Sensory Deficits, Aphasia, Facial Droop <Keerthi Willson - Last Filed: 06/22/18 01:07> - Laboratory Results Result Diagrams: 06/21/18 23:14 06/21/18 23:14 - ECG O2 Sat by Pulse Oximetry: 100 - Progress ED Course And Treament: -EKG -CXR -CBC with diff: WBC 18 with left shift, H/H 10.4/33 -CMP -PT/PTT/INR -Type and screen -VBG shock panel -troponin -FOBT at bedside positive -2nd FOBT specimen sent to lab: negative -serum magnesium, phosphorus, lipase -proBNP -blood culture -NS 500mL IV bolus, Reglan 10mg IV once, Zofran 8mg IV once, Pantoprazole 80mg IV once, diphenhydramine 25mg IV stat, -Consult to GI: Dr. Jc: give Pantoprazole 40mg PO BID -Consult placed for nephrology: Dr. Rodríguez -Case discussed with attending: Dr. Lake: admit patient to telemetry for GI bleed, gastroparesis, ESRD on HD Condition: Re-examined, Improved <Keerthi Willson - Last Filed: 06/22/18 01:07> - Laboratory Results Result Diagrams: 06/21/18 23:14 06/21/18 23:14 - Critical Care Total Time (In Min): 30 Documented Critical Care: Time excludes all time spent performint seperately billable procedures <Genna Fiore - Last Filed: 06/22/18 15:25> Disposition - Patient ED Disposition Is Patient to be Admitted: Yes Counseled Patient/Family Regarding: Diagnosis - Disposition Disposition Time: 01:06 <Keerthi Willson - Last Filed: 06/22/18 01:07> <Genna Fiore - Last Filed: 06/22/18 15:25> - Clinical Impression Clinical Impression: Gastrointestinal hemorrhage, ESRD (end stage renal disease) on dialysis, Gastroparesis - Disposition Condition: GUARDED
[2018-06-21] MEDS ORDERED: Sterile Water 10 ML IV ONE (23:26)
[2018-06-21] MEDS ORDERED: DiphenhydrAMINE 50 mg/ml Inj ONE (23:26)
[2018-06-21 23:33] LABS: BASO % 0.1 % (0.0-2.0); EOS % 0.1 % (0.0-4.0); HEMOGLOBIN 10.4 g/dL (12.0-18.0); LYMPH # 0.8 K/uL (1.0-4.3); LYMPH % 4.7 % (20.0-40.0); MEAN CELL VOLUME 81.6 fl (80.0-94.0); MEAN CORPUSCULAR HEMOGLOBIN 25.7 pg (27.0-31.0); MEAN CORPUSCULAR HGB CONC 31.5 g/dL (33.0-37.0); MEAN PLATELET VOLUME 8.2 fl (7.2-11.7); MONO # 0.7 K/uL (0.0-0.8); NEUT # 16.4 K/uL (1.8-7.0); NEUT % 91.1 % (50.0-75.0); PLATELET COUNT 266 K/uL (130-400); RBC 4.04 Mil/uL (4.40-5.90); RED CELL DISTRIBUTION WIDTH 14.7 % (11.5-14.5)
[2018-06-21 23:39] LABS: ALB/GLOB RATIO 1.1 (1.0-2.1); ALBUMIN 4.4 g/dL (3.5-5.0); CALCIUM 9.8 mg/dL (8.4-10.2)
[2018-06-21 23:46] LABS: TROPONIN I 0.025 ng/mL (0.00-0.120)
[2018-06-21 23:53] LABS: INR 1.2 (0.9-1.2); PARTIAL THROMBOPLASTIN TIME 32.9 Seconds (25.6-37.1); PROTHROMBIN TIME 13.1 Seconds (9.8-13.1)
[2018-06-22 01:07] LABS: ANISOCYTOSIS SLIGHT; HYPOCHROMIC SLIGHT; LARGE PLATELETS PRESENT; LYMPHOCYTE 3 % (20-50); MONOCYTE 3 % (0-10); NEUTROPHIL 94 % (42-75); PLATELET ESTIMATE NORMAL (NORMAL); TOTAL CELLS COUNTED 100
[2018-06-22] MEDS ORDERED: Pneumococcal 23-Valent Vaccine IM ONE (06:39)
[2018-06-22] MEDS: Metoprolol Succinate 50 mg XL Tab PO SCH (09:03)
--- NOTE | 2018-06-22 11:28 | RAD ---
Date of service: 06/22/2018 HISTORY: vomiting COMPARISON: 06/05/2018 FINDINGS: LUNGS: No active pulmonary disease. PLEURA: No significant pleural effusion identified, no pneumothorax apparent. CARDIOVASCULAR: Normal heart size. Normal left central venous dialysis catheter. No congestive change. OSSEOUS STRUCTURES: No significant abnormalities. VISUALIZED UPPER ABDOMEN: Normal. OTHER FINDINGS: None. IMPRESSION: No active disease.
[2018-06-22] MEDS: Magnesium Oxide 400 mg Tab UD PO SCH ×2 (13:34→17:35)
[2018-06-22] MEDS: GlipiZIDE 10 mg SR Tab PO SCH ×2 (13:35→17:35)
[2018-06-22] MEDS: Multivitamin Vitamin B Complex (Nephro-Vite) Tab PO SCH (13:36)
[2018-06-22] MEDS: NIFEdipine 30 mg ER Tab PO SCH (13:38)
--- NOTE | 2018-06-22 13:51 | CARD ---
APPROVED REPORT Date of service: 06/22/2018 EKG Measurement Heart [id number] <Conclusion> Sinus tachycardia Possible Left atrial enlargement Left axis deviation Abnormal ECG
--- NOTE | 2018-06-22 15:07 | CP.PCM.CON ---
History of Present Illness - History of Present Illness History of Present Illness: 47 yr old M presents to ED with complaint of abdominal pain and vomiting since yesterday afternoon. PMHx includes ESRD (hemodialysis started during recent admission to [facility]), IDDM, HTN, hx CVA, HLD, gastroparesis and anemia. Patient reports he was discharged on 06/19/18 and felt fine. His last hemodialysis was yesterday at 1pm, denies complications. Reports afterwards at home he started vomiting and has not tolerated anything since then. Associated symptoms are diffuse abdominal pain and overall malaise. Denies fever, chills, diarrhea, SOB , dysuria, hematuria complete ros is negative family social and surgical hx reviewed meds reviewed vitals reviewed heent normal op moist no jvd s1s2 present no resp distress abd soft nt nd BS+ skin normal ao times 3 cooperative no edema ESRD/HTN/DM/abdominal pain/anemia hd mwf, continue per schedule lytes reviewed anemia stable bp ok abdominal pain work up per primary team dm per primary team Past Patient History - Past Medical History & Family History Past Medical History?: Yes - Past Social History Smoking Status: Former Smoker - CARDIAC Hx Cardiac Disorders: Yes Hx Congestive Heart Failure: No Hx Hypercholesterolemia: Yes Hx Hypertension: Yes - PULMONARY Hx Respiratory Disorders: No Hx Chronic Obstructive Pulmonary Disease (COPD): No - NEUROLOGICAL Hx Neurological Disorder: Yes HX Cerebrovascular Accident: Yes - HEENT Hx HEENT Problems: No - RENAL Hx Chronic Kidney Disease: Yes (ESRD pending HD) Hx Dialysis: Yes Type of Dialysis Access: Permacath left subclvian, R AVS Date of Last Dialysis Treatment: 06/20/18 - ENDOCRINE/METABOLIC Hx Endocrine Disorders: Yes Hx Diabetes Mellitus Type 1: Yes Hx Hypothyroidism: No - HEMATOLOGICAL/ONCOLOGICAL Hx Blood Disorders: Yes Hx AIDS: No Hx Anemia: Yes Hx Human Immunodeficiency Virus (HIV): No - INTEGUMENTARY Hx Dermatological Problems: No - MUSCULOSKELETAL/RHEUMATOLOGICAL Hx Arthritis: No Hx Falls: No Hx Rheumatoid Arthritis: No - GASTROINTESTINAL Hx Gastrointestinal Disorders: Yes Hx Nausea: Yes Hx Vomiting: Yes Other/Comment: Gastroparesis - GENITOURINARY/GYNECOLOGICAL Hx Genitourinary Disorders: No - PSYCHIATRIC Hx Psychophysiologic Disorder: No Hx Substance Use: No - SURGICAL HISTORY Hx Surgeries: Yes Hx Amputation: Yes (tma right foot) Other/Comment: left suboccipital craniotomy - ANESTHESIA Hx Anesthesia: Yes Hx Anesthesia Reactions: No Hx Malignant Hyperthermia: No Meds Allergies/Adverse Reactions: Allergies Allergy/AdvReac Type Severity Reaction Status Date / Time Penicillins Allergy RASH Verified 06/21/18 22:12 - Medications Medications: Current Medications Allopurinol (Zyloprim) 100 mg PO DAILY [facility] Last Admin: 06/22/18 11:27 Dose: 100 mg Amlodipine Besylate (Norvasc) 10 mg PO DAILY [facility] Last Admin: 06/22/18 13:38 Dose: 10 mg Atorvastatin Calcium (Lipitor) 40 mg PO HS [facility] Bupropion HCl (Wellbutrin) 100 mg PO BID [facility] Last Admin: 06/22/18 11:28 Dose: 100 mg Calcitriol (Rocaltrol) 0.25 mcg PO MWF [facility] Calcium Acetate (Phoslo) 667 mg PO WM@0900,1300,1700 [facility] Last Admin: 06/22/18 13:35 Dose: 667 mg Clonidine HCl (Catapres) 0.3 mg PO TID [facility] Last Admin: 06/22/18 13:37 Dose: Not Given Ferrous Sulfate (Feosol) 325 mg PO BID [facility] Last Admin: 06/22/18 08:30 Dose: Not Given Folic Acid (Folic Acid) 1 mg PO DAILY [facility] Last Admin: 06/22/18 13:37 Dose: 1 mg Gabapentin (Neurontin) 100 mg PO TID [facility] Last Admin: 06/22/18 13:35 Dose: 100 mg Glipizide (Glucotrol Xl) 10 mg PO BID [facility] Last Admin: 06/22/18 13:35 Dose: 10 mg Hydralazine HCl (Apresoline) 100 mg PO Q8 [facility] Last Admin: 06/22/18 09:02 Dose: 100 mg Losartan Potassium (Cozaar) 50 mg PO QPM [facility] Magnesium Oxide (Mag-Ox) 400 mg PO BID [facility] Last Admin: 06/22/18 13:34 Dose: 400 mg Metoclopramide HCl (Reglan) 5 mg PO Q8 [facility] Last Admin: 06/22/18 11:27 Dose: 5 mg Metoprolol Succinate (Toprol Xl) 50 mg PO DAILY [facility] Last Admin: 06/22/18 09:03 Dose: 50 mg Nifedipine (Procardia Xl) 30 mg PO DAILY [facility] Last Admin: 06/22/18 13:38 Dose: 30 mg Ondansetron HCl (Zofran Inj) 4 mg IVP Q6 PRN PRN Reason: Nausea/Vomiting Last Admin: 06/22/18 11:31 Dose: 4 mg Pantoprazole Sodium (Protonix Inj) 40 mg IVP Q12 [facility] Last Admin: 06/22/18 11:26 Dose: 40 mg Sitagliptin Phosphate (Januvia) 50 mg PO BID [facility] Last Admin: 06/22/18 13:36 Dose: 50 mg Vitamin B Complex/Vit C/Folic Acid (Nephro-Elsa) 1 tab PO DAILY [facility] Last Admin: 06/22/18 13:36 Dose: 1 tab Results - Vital Signs Recent Vital Signs: Last Vital Signs Temp 97.8 F 06/22/18 12:00 Pulse 83 06/22/18 13:38 Resp 20 06/22/18 12:00 BP 138/86 06/22/18 13:38 Pulse Ox 97 06/22/18 12:00 - Labs Result Diagrams: 06/21/18 23:14 06/21/18 23:14 Labs: Laboratory Results - last 24 hr 06/21/18 06/21/18 06/21/18 23:14 23:14 23:14 WBC 18.0 H RBC 4.04 L Hgb 10.4 L Hct 33.0 L MCV 81.6 D MCH 25.7 L MCHC 31.5 L RDW 14.7 H Plt Count 266 MPV 8.2 Neut % (Auto) 91.1 H Lymph % (Auto) 4.7 L [place] % (Auto) 4.0 Eos % (Auto) 0.1 Baso % (Auto) 0.1 Neut # (Auto) 16.4 H Lymph # (Auto) 0.8 L [place] # (Auto) 0.7 Eos # (Auto) 0.0 Baso # (Auto) 0.0 Neutrophils % (Manual) 94 H Lymphocytes % (Manual) 3 L Monocytes % (Manual) 3 Platelet Estimate Normal Large Platelets Present Hypochromasia (manual) Slight Anisocytosis (manual) Slight PT 13.1 INR 1.2 APTT 32.9 Sodium 140 Potassium 3.9 Chloride 95 L Carbon Dioxide 26 Anion Gap 23 H BUN 28 H Creatinine 4.0 H Est GFR ( Amer) 20 Est GFR (Non-Af Amer) 16 Random Glucose 322 H Calcium 9.8 Phosphorus 3.1 Magnesium 1.6 Total Bilirubin 0.6 AST 18 ALT 19 L Alkaline Phosphatase 137 H D Troponin I 0.0250 NT-Pro-B Natriuret Pep 1240 H Total Protein 8.3 H Albumin 4.4 Globulin 3.9 Albumin/Globulin Ratio 1.1 Lipase 57 Stool Occult Blood Blood Type Antibody Screen BBK History Checked 06/21/18 06/22/18 23:14 00:06 WBC RBC Hgb Hct MCV MCH MCHC RDW Plt Count MPV Neut % (Auto) Lymph % (Auto) [place] % (Auto) Eos % (Auto) Baso % (Auto) Neut # (Auto) Lymph # (Auto) [place] # (Auto) Eos # (Auto) Baso # (Auto) Neutrophils % (Manual) Lymphocytes % (Manual) Monocytes % (Manual) Platelet Estimate Large Platelets Hypochromasia (manual) Anisocytosis (manual) PT INR APTT Sodium Potassium Chloride Carbon Dioxide Anion Gap BUN Creatinine Est GFR ( Amer) Est GFR (Non-Af Amer) Random Glucose Calcium Phosphorus Magnesium Total Bilirubin AST ALT Alkaline Phosphatase Troponin I NT-Pro-B Natriuret Pep Total Protein Albumin Globulin Albumin/Globulin Ratio Lipase Stool Occult Blood Negative Blood Type O NEGATIVE Antibody Screen Negative BBK History Checked Patient has bt
[2018-06-23 06:35] LABS: HEMOGLOBIN 8.7 g/dL (12.0-18.0); MEAN CORPUSCULAR HEMOGLOBIN 26.4 pg (27.0-31.0); MEAN CORPUSCULAR HGB CONC 33.4 g/dL (33.0-37.0); RBC 3.28 Mil/uL (4.40-5.90); RED CELL DISTRIBUTION WIDTH 14.1 % (11.5-14.5)
[2018-06-23 07:02] LABS: ALB/GLOB RATIO 1.1 (1.0-2.1); ALBUMIN 3.4 g/dL (3.5-5.0); CALCIUM 8.6 mg/dL (8.4-10.2)
--- NOTE | 2018-06-23 08:33 | HP ---
CHIEF COMPLAINT: Vomiting with some blood in vomit. HISTORY OF PRESENT ILLNESS: This is a 47-year-old male who was recently discharged from hospital, known case of diabetes, hypertension, end-stage renal disease on dialysis, peripheral vascular disease, , who was discharged home and was okay until yesterday when the patient again started vomiting with the some blood in the vomit, so the patient came back to the hospital and was admitted for further management. REVIEW OF SYSTEMS: He is positive for vomiting and blood in vomit. Review of systems otherwise is negative for headache, dizziness, syncope, loss of consciousness, chest pain, shortness of breath, abdominal pain, constipation or diarrhea, or any new joint or extremity pain. Review of systems of all other system is unremarkable. PAST MEDICAL HISTORY: Significant for diabetes, hypertension, elevated cholesterol, obesity, end-stage renal disease, and the patient was recently started on dialysis. PAST SURGICAL HISTORY: Remarkable for recent AV fistula and Perm-A-Cath placement. PERSONAL HISTORY: The patient is currently nonsmoker, nondrinker. No substance abuse. MEDICATIONS: The patient is on multiple medications, which is as per reconciliation sheet, which was reviewed and ordered. ALLERGIES: THE PATIENT IS NOT ALLERGIC TO ANY MEDICATION. FAMILY HISTORY: Noncontributory. PHYSICAL EXAMINATION: GENERAL: Well-built, well-nourished 47-year-old male, sleeping comfortably without any acute distress. VITAL SIGNS: Temperature afebrile, pulse 78, respirations 18, blood pressure . HEENT: Pupils reactive to light. No JVD. No thyromegaly. No lymphadenopathy. No nystagmus. Normocephalic, atraumatic skull. HEART: S1 and S2, normal and regular. No significant murmur, gallop, or rub is heard. LUNGS: Shows good bilateral air exchange. No rales or rhonchi. ABDOMEN: Soft and nontender. No organomegaly. No fluid. Bowel sounds are plus and normal. EXTREMITIES: The patient is status post amputation. No edema. No calf swelling. No tenderness. No acute ischemia. Amputation site looks clean without any complication. FLIGHT ATTENDANT/INFLIGHT SUPERVISOR: The patient is awake, alert, oriented x3. There is no sign of any acute gross focal, motor, or sensory neurological deficit. DIAGNOSTIC DATA: Available diagnostic data reviewed. Hemoglobin is . Telemetry monitoring does not reveal significant arrhythmias. ADMITTING IMPRESSION: Gastrointestinal bleed, vomiting, , diabetes type 2 with hyperglycemia, hypertension, and end-stage renal disease on dialysis. PLAN: As ordered. Case and plan discussed with the patient. Joel Lake MD
[2018-06-23] MEDS: GlipiZIDE 10 mg SR Tab PO SCH ×2 (08:52→16:59)
[2018-06-23] MEDS: NIFEdipine 30 mg ER Tab PO SCH (08:53)
[2018-06-23] MEDS: Multivitamin Vitamin B Complex (Nephro-Vite) Tab PO SCH (08:54)
[2018-06-23] MEDS: Metoprolol Succinate 50 mg XL Tab PO SCH (08:57)
[2018-06-23] MEDS: Magnesium Oxide 400 mg Tab UD PO SCH ×2 (08:57→17:00)
--- NOTE | 2018-06-23 10:01 | PN ---
DATE: 06/23/2018 SUBJECTIVE: The patient is seen and examined. Interim events noted. GI consult is pending, but the patient feels much better. No vomiting. No nausea. Tolerating food and liquids very well, moving bowels also passing urine without any problem. PHYSICAL EXAMINATION: GENERAL: The patient is in no acute distress. VITAL SIGNS: Stable. HEART: S1 and S2. Normal and regular. LUNGS: Good bilateral air exchange. ABDOMEN: Soft and nontender. EXTREMITIES: The patient is status post amputation. No edema. No calf swelling. No tenderness. No acute ischemia. GALLERY ASSISTANT: Essentially unchanged. DIAGNOSTIC DATA: The available diagnostic data reviewed. Telemetry monitoring does not show any significant arrhythmias. Nephrology consult noted and appreciated. Overall, the patient is medically stable. Plan as ordered. Joel Lake MD
--- NOTE | 2018-06-23 10:15 | CP.PCM.PN ---
Subjective - Date & Time of Evaluation Date of Evaluation: 06/23/18 Time of Evaluation: 10:17 - Subjective Subjective: patient conscious and alert in bed appear to be comfortable no nausea no vomiting and no abdominal pain Objective - Vital Signs/Intake and Output Vital Signs (last 24 hours): Temp Pulse Resp BP Pulse Ox 98.2 F 67 18 99/61 L 95 06/23/18 07:52 06/23/18 07:52 06/23/18 07:52 06/23/18 07:52 06/23/18 07:52 - Medications Medications: Current Medications Allopurinol (Zyloprim) 100 mg PO DAILY [facility] Last Admin: 06/23/18 08:58 Dose: 100 mg Amlodipine Besylate (Norvasc) 10 mg PO DAILY [facility] Last Admin: 06/23/18 08:50 Dose: Not Given Atorvastatin Calcium (Lipitor) 40 mg PO HS [facility] Last Admin: 06/22/18 21:17 Dose: 40 mg Bupropion HCl (Wellbutrin) 100 mg PO BID [facility] Last Admin: 06/23/18 08:58 Dose: 100 mg Calcitriol (Rocaltrol) 0.25 mcg PO MWF [facility] Last Admin: 06/23/18 09:00 Dose: 0.25 mcg Calcium Acetate (Phoslo) 667 mg PO WM@0900,1300,1700 [facility] Last Admin: 06/23/18 08:51 Dose: 667 mg Clonidine HCl (Catapres) 0.3 mg PO TID [facility] Last Admin: 06/23/18 08:49 Dose: Not Given Ferrous Sulfate (Feosol) 325 mg PO BID [facility] Last Admin: 06/23/18 08:54 Dose: 325 mg Folic Acid (Folic Acid) 1 mg PO DAILY [facility] Last Admin: 06/23/18 08:59 Dose: 1 mg Gabapentin (Neurontin) 100 mg PO TID [facility] Last Admin: 06/23/18 08:52 Dose: 100 mg Glipizide (Glucotrol Xl) 10 mg PO BID [facility] Last Admin: 06/23/18 08:52 Dose: 10 mg Hydralazine HCl (Apresoline) 100 mg PO Q8 [facility] Last Admin: 06/23/18 08:49 Dose: Not Given Losartan Potassium (Cozaar) 50 mg PO QPM [facility] Last Admin: 06/22/18 17:36 Dose: 50 mg Magnesium Oxide (Mag-Ox) 400 mg PO BID [facility] Last Admin: 06/23/18 08:57 Dose: 400 mg Metoclopramide HCl (Reglan) 5 mg PO Q8 [facility] Last Admin: 06/23/18 08:56 Dose: 5 mg Metoprolol Succinate (Toprol Xl) 50 mg PO DAILY [facility] Last Admin: 06/23/18 08:57 Dose: Not Given Ondansetron HCl (Zofran Inj) 4 mg IVP Q6 PRN PRN Reason: Nausea/Vomiting Last Admin: 06/22/18 11:31 Dose: 4 mg Pantoprazole Sodium (Protonix Inj) 40 mg IVP Q12 [facility] Last Admin: 06/23/18 08:53 Dose: 40 mg Sitagliptin Phosphate (Januvia) 50 mg PO BID [facility] Last Admin: 06/23/18 08:52 Dose: 50 mg Vitamin B Complex/Vit C/Folic Acid (Nephro-Elsa) 1 tab PO DAILY [facility] Last Admin: 06/23/18 08:54 Dose: 1 tab - Labs Labs: 06/23/18 05:37 06/23/18 05:37 PT 13.1 Seconds (9.8-13.1) 06/21/18 23:14 INR 1.2 (0.9-1.2) 06/21/18 23:14 APTT 32.9 Seconds (25.6-37.1) 06/21/18 23:14 - Constitutional Appears: No Acute Distress - ENT Exam ENT Exam: Mucous Membranes Moist - Neck Exam Neck Exam: absent: Lymphadenopathy - Respiratory Exam Respiratory Exam: NORMAL BREATHING PATTERN. absent: Chest Wall Tenderness - Cardiovascular Exam Cardiovascular Exam: absent: Gallop, Rubs - Extremities Exam Extremities Exam: absent: Calf Tenderness - Back Exam Back Exam: absent: CVA tenderness (L), CVA tenderness (R) - Neurological Exam Neurological Exam: Alert - Psychiatric Exam Psychiatric exam: Normal Affect - Skin Skin Exam: absent: Cyanosis Assessment and Plan (1) ESRD (end stage renal disease) on dialysis Assessment & Plan: 47 yr old M presents to ED with complaint of abdominal pain and vomiting. PMHx includes ESRD (hemodialysis started during recent admission to [facility]), IDDM , HTN, hx CVA, HLD, gastroparesis and anemia. Patient reports he was discharged on 06/19/18 and felt fine. His last hemodialysis was yesterday at 1pm, denies complications. Reports afterwards at home he started vomiting and has not tolerated anything since then. Associated symptoms are diffuse abdominal pain and overall malaise. Denies fever, chills, diarrhea, SOB, dysuria, hematuria. Patient produces urine. Last bowel movement was 3 days ago, was hard, reports hx constipation. [facility] records reviewed: patient had abd/pelvis CT on 06/05/18: no bowel obstruction, moderate fecal loading; 06/06/18 abd xray: no obstruction; evaluated by GI: assessment was likely gastroparesis, less likely GI bleed, hgb was stable , hx esophagitis 1 yr ago; Nuc Med Myocardial Perfusion Scan: ischemia in territory of LCx, in summary Patient admitted with abdominal pain which appears to be resolving End stage renal disease hemodialysis Saturday scheduled to have it shortly. Hemoglobin noted to be dropping somewhat we will add EPO Check phosphorus and PTH Follow-up with a GI leukocytosis that has been improving I discussed the case with the nurse practitioner and we reviewed and examine the patient all over including the right upper arm fistula which has good bruit no cellulitis and the foot no sign of cellulitis. And the only potential leukocytosis perhaps the left subclavian catheter and to do blood culture and urine culture Status: Acute
[2018-06-23] MEDS ORDERED: Chlorhexidine Gluconate 1 APPL/PKT TP ONE (10:16)
--- NOTE | 2018-06-23 10:35 | CP.PCM.CON ---
History of Present Illness - History of Present Illness History of Present Illness: PGY5 Initial GI Consult for Dr. Jc Santiago Hussein is a 47M w/ hx of ESRD, DM, CAD, HL, gastroparesis who presented to the ER for abdominal pain. He states that the onset was a few hours after dialysis. He said it was associated with intractable nausea and vomiting. Denies any diarrhea, fever, chills or diaphoresis. He notes that his emesis included partially digest food material but denies any blood or coffee- grounds. Since his admission, his nausea, vomiting and diarrhea has resolved. Pt states that he hasn't had a BM in 4-5 days. He notes chronic constipation. Pt has had prior EGD and colonoscopy. Pt was recently discharged, 2 days prior for similiar complaints. PMHx: HTN, CKD, DM2, CVA, HLD. chronic anemia PSHx: R TMA, craniotomy, L AVF SHx: denies T, EtOH, D use FHx: unknown Endo Hx: 12/2016; garde d esophagitis, gastritis; 11/2015: x2 tubular adenoma transverse and sigmoid ROS: 12 point ROS conducted, neg other than above Past Patient History - Past Medical History & Family History Past Medical History?: Yes - Past Social History Smoking Status: Former Smoker - CARDIAC Hx Cardiac Disorders: Yes Hx Congestive Heart Failure: No Hx Hypercholesterolemia: Yes Hx Hypertension: Yes - PULMONARY Hx Respiratory Disorders: No Hx Chronic Obstructive Pulmonary Disease (COPD): No - NEUROLOGICAL Hx Neurological Disorder: Yes HX Cerebrovascular Accident: Yes - HEENT Hx HEENT Problems: No - RENAL Hx Chronic Kidney Disease: Yes (ESRD pending HD) Hx Dialysis: Yes Type of Dialysis Access: Permacath left subclvian, R AVS Date of Last Dialysis Treatment: 06/20/18 - ENDOCRINE/METABOLIC Hx Endocrine Disorders: Yes Hx Diabetes Mellitus Type 1: Yes Hx Hypothyroidism: No - HEMATOLOGICAL/ONCOLOGICAL Hx Blood Disorders: Yes Hx AIDS: No Hx Anemia: Yes Hx Human Immunodeficiency Virus (HIV): No - INTEGUMENTARY Hx Dermatological Problems: No - MUSCULOSKELETAL/RHEUMATOLOGICAL Hx Arthritis: No Hx Falls: No Hx Rheumatoid Arthritis: No - GASTROINTESTINAL Hx Gastrointestinal Disorders: Yes Hx Nausea: Yes Hx Vomiting: Yes Other/Comment: Gastroparesis - GENITOURINARY/GYNECOLOGICAL Hx Genitourinary Disorders: No - PSYCHIATRIC Hx Psychophysiologic Disorder: No Hx Substance Use: No - SURGICAL HISTORY Hx Surgeries: Yes Hx Amputation: Yes (tma right foot) Other/Comment: left suboccipital craniotomy - ANESTHESIA Hx Anesthesia: Yes Hx Anesthesia Reactions: No Hx Malignant Hyperthermia: No Meds Allergies/Adverse Reactions: Allergies Allergy/AdvReac Type Severity Reaction Status Date / Time Penicillins Allergy RASH Verified 06/21/18 22:12 - Medications Medications: Current Medications Allopurinol (Zyloprim) 100 mg PO DAILY [facility] Last Admin: 06/23/18 08:58 Dose: 100 mg Amlodipine Besylate (Norvasc) 10 mg PO DAILY [facility] Last Admin: 06/23/18 08:50 Dose: Not Given Atorvastatin Calcium (Lipitor) 40 mg PO HS [facility] Last Admin: 06/22/18 21:17 Dose: 40 mg Bupropion HCl (Wellbutrin) 100 mg PO BID [facility] Last Admin: 06/23/18 08:58 Dose: 100 mg Calcitriol (Rocaltrol) 0.25 mcg PO MWF [facility] Last Admin: 06/23/18 09:00 Dose: 0.25 mcg Calcium Acetate (Phoslo) 667 mg PO WM@0900,1300,1700 [facility] Last Admin: 06/23/18 08:51 Dose: 667 mg Clonidine HCl (Catapres) 0.3 mg PO TID [facility] Last Admin: 06/23/18 08:49 Dose: Not Given Ferrous Sulfate (Feosol) 325 mg PO BID [facility] Last Admin: 06/23/18 08:54 Dose: 325 mg Folic Acid (Folic Acid) 1 mg PO DAILY [facility] Last Admin: 06/23/18 08:59 Dose: 1 mg Gabapentin (Neurontin) 100 mg PO TID [facility] Last Admin: 06/23/18 08:52 Dose: 100 mg Glipizide (Glucotrol Xl) 10 mg PO BID [facility] Last Admin: 06/23/18 08:52 Dose: 10 mg Hydralazine HCl (Apresoline) 100 mg PO Q8 [facility] Last Admin: 06/23/18 08:49 Dose: Not Given Losartan Potassium (Cozaar) 50 mg PO QPM [facility] Last Admin: 06/22/18 17:36 Dose: 50 mg Magnesium Oxide (Mag-Ox) 400 mg PO BID [facility] Last Admin: 06/23/18 08:57 Dose: 400 mg Metoclopramide HCl (Reglan) 5 mg PO Q8 [facility] Last Admin: 06/23/18 08:56 Dose: 5 mg Metoprolol Succinate (Toprol Xl) 50 mg PO DAILY [facility] Last Admin: 06/23/18 08:57 Dose: Not Given Ondansetron HCl (Zofran Inj) 4 mg IVP Q6 PRN PRN Reason: Nausea/Vomiting Last Admin: 06/22/18 11:31 Dose: 4 mg Pantoprazole Sodium (Protonix Inj) 40 mg IVP Q12 [facility] Last Admin: 06/23/18 08:53 Dose: 40 mg Sitagliptin Phosphate (Januvia) 50 mg PO BID [facility] Last Admin: 06/23/18 08:52 Dose: 50 mg Vitamin B Complex/Vit C/Folic Acid (Nephro-Elsa) 1 tab PO DAILY [facility] Last Admin: 06/23/18 08:54 Dose: 1 tab Physical Exam - Constitutional Appears: Well, No Acute Distress - Head Exam Head Exam: ATRAUMATIC, NORMOCEPHALIC - Eye Exam Eye Exam: Normal appearance - ENT Exam ENT Exam: Mucous Membranes Moist, Normal Exam - Neck Exam Neck exam: Positive for: Normal Inspection - Respiratory Exam Respiratory Exam: Clear to Auscultation Bilateral, NORMAL BREATHING PATTERN. absent: Rales, Rhonchi, Wheezes, Respiratory Distress - Cardiovascular Exam Cardiovascular Exam: REGULAR RHYTHM, +S1, +S2 - GI/Abdominal Exam GI & Abdominal Exam: Normal Bowel Sounds, Soft. absent: Distended, Firm, Guarding, Hyperactive Bowel Sounds, Organomegaly, Rebound, Rigid, Tenderness - Rectal Exam Rectal Exam: absent: Black Stool, Bloody Stool, Hemorrhoids, Fecal Impaction - Extremities Exam Additional comments: s/p foot amputation, + edema - Neurological Exam Neurological exam: Alert, Oriented x3 - Psychiatric Exam Psychiatric exam: Normal Affect, Normal Mood - Skin Skin Exam: Dry, Intact, Normal Color, Warm Results - Vital Signs Recent Vital Signs: Last Vital Signs Temp 98.2 F 06/23/18 07:52 Pulse 67 06/23/18 07:52 Resp 18 06/23/18 07:52 BP 99/61 L 06/23/18 07:52 Pulse Ox 95 06/23/18 07:52 - Labs Result Diagrams: 06/23/18 05:37 06/23/18 05:37 Labs: Laboratory Results - last 24 hr 06/23/18 06/23/18 05:37 05:37 WBC 13.0 H RBC 3.28 L Hgb 8.7 L Hct 25.9 L MCV 79.0 L D MCH 26.4 L MCHC 33.4 RDW 14.1 Plt Count 221 Sodium 133 Potassium 4.0 Chloride 92 L Carbon Dioxide 29 Anion Gap 16 BUN 39 H Creatinine 4.9 H Est GFR ( Amer) 15 Est GFR (Non-Af Amer) 13 Random Glucose 94 Calcium 8.6 Total Bilirubin 0.5 AST 19 ALT 20 L Alkaline Phosphatase 83 Total Protein 6.5 Albumin 3.4 L D Globulin 3.1 Albumin/Globulin Ratio 1.1 Assessment & Plan - Assessment and Plan (Free Text) Assessment: Santiago Hussein is a 47M w/ hx of ESRD, DM, CAD, HL, gastroparesis who presented to the ER for abdominal pain. Acute on chronic constipation Anemia, likely 2/2 chronic disease 2/2 ESRD Gastroparesis Abd pain intractable nausea and vomiting (resolved) Plan: -start miralax BID -continue protonix 40mg daily and reglan premeals -no indication for endoscopy at this time -keep hgb > 8, tranfuse as needed -encourage small frequent meals -rest of care as per primary team -colonoscopy in 11/2018 as an oupt -D/w Dr. Jc
[2018-06-23] MEDS: POLYETHYLENE GLYCOL 3350 17 GM/Dose PACKET PO SCH ×2 (12:39→16:58)
[2018-06-23 20:19] LABS: SQUAMOUS EPITHIAL < 1 /hpf (0-5); URINE BILIRUBIN NEGATIVE (NEGATIVE); URINE BLOOD NEGATIVE (NEGATIVE); URINE CLARITY SLIGHTY-CLOUDY (Clear); URINE COLOR YELLOW (YELLOW); URINE GLUCOSE (UA) 50 mg/dL (Normal); URINE HYALINE CAST 0-2 /hpf (0-2); URINE LEUKOCYTE ESTERASE NEG Leu/uL (Negative); URINE PROTEIN 100 mg/dL (NEGATIVE); URINE UROBILINOGEN 0.2-1.0 mg/dL (0.2-1.0)
[2018-06-24 00:12] VITALS: RESP 18
[2018-06-24 06:13] LABS: HEMOGLOBIN 9.5 g/dL (12.0-18.0); MEAN CELL VOLUME 79.7 fl (80.0-94.0); MEAN CORPUSCULAR HEMOGLOBIN 25.7 pg (27.0-31.0); MEAN CORPUSCULAR HGB CONC 32.2 g/dL (33.0-37.0); RBC 3.71 Mil/uL (4.40-5.90); RED CELL DISTRIBUTION WIDTH 14.2 % (11.5-14.5); WHITE BLOOD COUNT 11.9 K/uL (4.8-10.8)
[2018-06-24 06:40] LABS: ALB/GLOB RATIO 1.1 (1.0-2.1); ALBUMIN 3.8 g/dL (3.5-5.0); CALCIUM 8.6 mg/dL (8.4-10.2)
[2018-06-24] MEDS: Magnesium Oxide 400 mg Tab UD PO SCH (09:23)
[2018-06-24] MEDS: POLYETHYLENE GLYCOL 3350 17 GM/Dose PACKET PO SCH (09:25)
[2018-06-24] MEDS: Multivitamin Vitamin B Complex (Nephro-Vite) Tab PO SCH (09:26)
[2018-06-24] MEDS: GlipiZIDE 10 mg SR Tab PO SCH (09:27)
[2018-06-24] MEDS: Metoprolol Succinate 50 mg XL Tab PO SCH (09:27)
--- NOTE | 2018-06-24 11:12 | CP.PCM.DIS ---
Provider - Provider Date of Admission: 06/22/18 00:00 Attending physician: Joel Lake MD Time Spent in preparation of Discharge (in minutes): 20 Diagnosis - Discharge Diagnosis (1) ESRD (end stage renal disease) on dialysis Status: Acute (2) Gastroparesis Status: Acute (3) HTN (hypertension) Status: Acute Hospital Course - Lab Results Lab Results: Micro Results 06/23/18 10:13 Blood-During Dialysis Blood Culture - Preliminary NO GROWTH AFTER 24 HOURS 06/21/18 23:14 Blood Blood Culture - Preliminary NO GROWTH AFTER 48 HOURS Most Recent Lab Values WBC 11.9 K/uL (4.8-10.8) H 06/24/18 05:00 RBC 3.71 Mil/uL (4.40-5.90) L 06/24/18 05:00 Hgb 9.5 g/dL (12.0-18.0) L 06/24/18 05:00 Hct 29.6 % (35.0-51.0) L 06/24/18 05:00 MCV 79.7 fl (80.0-94.0) L 06/24/18 05:00 MCH 25.7 pg (27.0-31.0) L 06/24/18 05:00 MCHC 32.2 g/dL (33.0-37.0) L 06/24/18 05:00 RDW 14.2 % (11.5-14.5) 06/24/18 05:00 Plt Count 234 K/uL (130-400) 06/24/18 05:00 MPV 8.2 fl (7.2-11.7) 06/21/18 23:14 Neut % (Auto) 91.1 % (50.0-75.0) H 06/21/18 23:14 Lymph % (Auto) 4.7 % (20.0-40.0) L 06/21/18 23:14 [place] % (Auto) 4.0 % (0.0-10.0) 06/21/18 23:14 Eos % (Auto) 0.1 % (0.0-4.0) 06/21/18 23:14 Baso % (Auto) 0.1 % (0.0-2.0) 06/21/18 23:14 Neut # (Auto) 16.4 K/uL (1.8-7.0) H 06/21/18 23:14 Lymph # (Auto) 0.8 K/uL (1.0-4.3) L 06/21/18 23:14 [place] # (Auto) 0.7 K/uL (0.0-0.8) 06/21/18 23:14 Eos # (Auto) 0.0 K/uL (0.0-0.7) 06/21/18 23:14 Baso # (Auto) 0.0 K/uL (0.0-0.2) 06/21/18 23:14 Neutrophils % (Manual) 94 % (42-75) H 06/21/18 23:14 Lymphocytes % (Manual) 3 % (20-50) L 06/21/18 23:14 Monocytes % (Manual) 3 % (0-10) 06/21/18 23:14 Platelet Estimate Normal (NORMAL) 06/21/18 23:14 Large Platelets Present 06/21/18 23:14 Hypochromasia (manual) Slight 06/21/18 23:14 Anisocytosis (manual) Slight 06/21/18 23:14 PT 13.1 Seconds (9.8-13.1) 06/21/18 23:14 INR 1.2 (0.9-1.2) 06/21/18 23:14 APTT 32.9 Seconds (25.6-37.1) 06/21/18 23:14 Sodium 134 mmol/l (132-148) 06/24/18 05:00 Potassium 4.4 MMOL/L (3.6-5.0) 06/24/18 05:00 Chloride 93 mmol/L (98-107) L 06/24/18 05:00 Carbon Dioxide 29 mmol/L (22-30) 06/24/18 05:00 Anion Gap 16 (10-20) 06/24/18 05:00 BUN 48 mg/dl (9-20) H 06/24/18 05:00 Creatinine 5.2 mg/dl (0.8-1.5) H 06/24/18 05:00 Est GFR ( Amer) 14 06/24/18 05:00 Est GFR (Non-Af Amer) 12 06/24/18 05:00 POC Glucose (mg/dL) 158 mg/dL (65-110) H 06/23/18 21:25 Random Glucose 99 mg/dL (75-110) 06/24/18 05:00 Calcium 8.6 mg/dL (8.4-10.2) 06/24/18 05:00 Phosphorus 3.1 mg/dl (2.5-4.5) 06/21/18 23:14 Magnesium 1.6 MG/DL (1.6-2.3) 06/21/18 23:14 Total Bilirubin 0.6 mg/dl (0.2-1.3) 06/24/18 05:00 AST 24 U/L (17-59) 06/24/18 05:00 ALT 22 U/L (21-72) 06/24/18 05:00 Alkaline Phosphatase 92 U/L (38-126) 06/24/18 05:00 Troponin I 0.0250 ng/mL (0.00-0.120) 06/21/18 23:14 NT-Pro-B Natriuret Pep 1240 pg/ml (0-450) H 06/21/18 23:14 Total Protein 7.3 G/DL (6.3-8.2) 06/24/18 05:00 Albumin 3.8 g/dL (3.5-5.0) 06/24/18 05:00 Globulin 3.5 gm/dL (2.2-3.9) 06/24/18 05:00 Albumin/Globulin Ratio 1.1 (1.0-2.1) 06/24/18 05:00 Lipase 57 U/L (23-300) 06/21/18 23:14 Urine Color Yellow (YELLOW) 06/23/18 20:04 Urine Clarity Slighty-cloudy (Clear) 06/23/18 20:04 Urine pH 5.0 (5.0-8.0) 06/23/18 20:04 Ur Specific [place] 1.013 (1.003-1.030) 06/23/18 20:04 Urine Protein 100 mg/dL (NEGATIVE) 06/23/18 20:04 Urine Glucose (UA) 50 mg/dL (Normal) 06/23/18 20:04 Urine Ketones Negative mg/dL (NEGATIVE) 06/23/18 20:04 Urine Blood Negative (NEGATIVE) 06/23/18 20:04 Urine Nitrate Negative (NEGATIVE) 06/23/18 20:04 Urine Bilirubin Negative (NEGATIVE) 06/23/18 20:04 Urine Urobilinogen 0.2-1.0 mg/dL (0.2-1.0) 06/23/18 20:04 Ur Leukocyte Esterase Neg Gomez/uL (Negative) 06/23/18 20:04 Urine RBC (Auto) 2 /hpf (0-3) 06/23/18 20:04 Urine Microscopic WBC 1 /hpf (0-5) 06/23/18 20:04 Ur Squamous Epith Cells < 1 /hpf (0-5) 06/23/18 20:04 Hyaline Casts 0-2 /hpf (0-2) 06/23/18 20:04 Stool Occult Blood Negative (NEGATIVE) 06/22/18 00:06 Blood Type O NEGATIVE 06/21/18 23:14 Antibody Screen Negative 06/21/18 23:14 BBK History Checked Patient has bt 06/21/18 23:14 - Hospital Course Hospital Course: 47 YO male with PMHx of ESRD on HD, DM2, HTN, HLD, gastroparesis admitted for abdominal pain. Pt was seen by Nephrology and GI, pain likely 2/2 to gastroparesis. Abdominal pain resolved at this time, ambulating, tolerating diet and remains hemodynamically stable. Pt cleared by consultants to be d/c home. Pt refusing JAIME, after pt is dialyzed will d/c pt home with follow up with PMD in 1 week and with Nephrology for dialysis. Discharge Exam - Head Exam Head Exam: ATRAUMATIC, NORMOCEPHALIC - Eye Exam Eye Exam: EOMI, Normal appearance - ENT Exam ENT Exam: Mucous Membranes Moist - Respiratory Exam Respiratory Exam: Clear to PA & Lateral, NORMAL BREATHING PATTERN - Cardiovascular Exam Cardiovascular Exam: REGULAR RHYTHM, +S1, +S2 - GI/Abdominal Exam GI & Abdominal Exam: Normal Bowel Sounds, Soft. absent: Tenderness - Extremities Exam Additional comments: RLE below ankle amputation - Neurological Exam Neurological exam: Alert, Oriented x3 Discharge Plan - Discharge Medications Prescriptions: Metoclopramide [Reglan] 5 mg PO Q8 #24 tab Polyethylene Glycol 3350 [Miralax] 17 gm PO BID #30 packet - Follow Up Plan Condition: GUARDED Disposition: HOME/ ROUTINE Instructions: Gastroparesis (Delayed Gastric Emptying) (DC), End Stage Kidney Disease (DC) Additional Instructions: patient cleared for discharge to Home today post dialysis by ,, E Rx for meds sent to pharmacy f/u with in 1 week cont. HD MWF f/u with , outpatient Referrals: Kamille Kulkarni MD [Medical Doctor] - Joel Lake MD [Staff Provider] - Kobe Rodríguez MD [Staff Provider] - Jung Jc MD, PhD [Staff Provider] -
--- NOTE | 2018-06-24 13:15 | CP.PCM.PN ---
Subjective - Date & Time of Evaluation Date of Evaluation: 06/24/18 Time of Evaluation: 13:13 - Subjective Subjective: dialysis note He was seen on hemodialysis. Patient is tolerating well. Blood pressure much better than yesterday. All antihypertensive medication put on hold Objective - Vital Signs/Intake and Output Vital Signs (last 24 hours): Temp Pulse Resp BP Pulse Ox 98.9 F 84 18 116/66 98 06/24/18 12:19 06/24/18 12:31 06/24/18 12:19 06/24/18 12:31 06/24/18 12:19 - Medications Medications: Current Medications Allopurinol (Zyloprim) 100 mg PO DAILY [facility] Last Admin: 06/24/18 09:26 Dose: 100 mg Amlodipine Besylate (Norvasc) 10 mg PO DAILY [facility] Last Admin: 06/24/18 09:24 Dose: Not Given Atorvastatin Calcium (Lipitor) 40 mg PO HS [facility] Last Admin: 06/23/18 21:04 Dose: 40 mg Bupropion HCl (Wellbutrin) 100 mg PO BID [facility] Last Admin: 06/24/18 09:28 Dose: 100 mg Calcitriol (Rocaltrol) 0.25 mcg PO MWF [facility] Last Admin: 06/23/18 09:00 Dose: 0.25 mcg Calcium Acetate (Phoslo) 667 mg PO WM@0900,1300,1700 [facility] Last Admin: 06/24/18 12:31 Dose: Not Given Clonidine HCl (Catapres) 0.3 mg PO TID [facility] Last Admin: 06/24/18 12:31 Dose: Not Given Ferrous Sulfate (Feosol) 325 mg PO BID [facility] Last Admin: 06/24/18 09:23 Dose: 325 mg Folic Acid (Folic Acid) 1 mg PO DAILY [facility] Last Admin: 06/24/18 09:26 Dose: 1 mg Gabapentin (Neurontin) 100 mg PO TID [facility] Last Admin: 06/24/18 12:31 Dose: Not Given Glipizide (Glucotrol Xl) 10 mg PO BID [facility] Last Admin: 06/24/18 09:27 Dose: 10 mg Hydralazine HCl (Apresoline) 100 mg PO Q8 [facility] Last Admin: 06/24/18 09:21 Dose: Not Given Losartan Potassium (Cozaar) 50 mg PO QPM [facility] Last Admin: 06/23/18 17:01 Dose: Not Given Magnesium Oxide (Mag-Ox) 400 mg PO BID [facility] Last Admin: 06/24/18 09:23 Dose: 400 mg Metoclopramide HCl (Reglan) 5 mg PO Q8 [facility] Last Admin: 06/24/18 09:27 Dose: 5 mg Metoprolol Succinate (Toprol Xl) 50 mg PO DAILY [facility] Last Admin: 06/24/18 09:27 Dose: Not Given Ondansetron HCl (Zofran Inj) 4 mg IVP Q6 PRN PRN Reason: Nausea/Vomiting Last Admin: 06/22/18 11:31 Dose: 4 mg Pantoprazole Sodium (Protonix Inj) 40 mg IVP Q12 [facility] Last Admin: 06/24/18 09:24 Dose: 40 mg Polyethylene Glycol (Miralax) 17 gm PO BID [facility] Last Admin: 06/24/18 09:25 Dose: 17 gm Sitagliptin Phosphate (Januvia) 50 mg PO BID [facility] Last Admin: 06/24/18 09:23 Dose: 50 mg Vitamin B Complex/Vit C/Folic Acid (Nephro-Elsa) 1 tab PO DAILY [facility] Last Admin: 06/24/18 09:26 Dose: 1 tab - Labs Labs: 06/24/18 05:00 06/24/18 05:00 PT 13.1 Seconds (9.8-13.1) 06/21/18 23:14 INR 1.2 (0.9-1.2) 06/21/18 23:14 APTT 32.9 Seconds (25.6-37.1) 06/21/18 23:14 - Constitutional Appears: No Acute Distress - ENT Exam ENT Exam: Mucous Membranes Moist - Respiratory Exam Respiratory Exam: NORMAL BREATHING PATTERN. absent: Chest Wall Tenderness - Cardiovascular Exam Cardiovascular Exam: absent: Gallop, Rubs - GI/Abdominal Exam GI & Abdominal Exam: Soft, Normal Bowel Sounds - Extremities Exam Extremities Exam: absent: Calf Tenderness - Back Exam Back Exam: absent: CVA tenderness (L), CVA tenderness (R) - Neurological Exam Neurological Exam: Alert - Skin Skin Exam: absent: Cyanosis Assessment and Plan (1) ESRD (end stage renal disease) on dialysis Assessment & Plan: end stage renal disease receiving hemodialysis now. Hold antihypertensive medication Patient seems to be tolerating well Discussed with the dialysis nurse at the bedside Patient may be going on today perhaps its up to the primary team Leukocytosis is improving anemia patient receiving EPO Status: Acute
[2018-06-24 16:29] VITALS: BP 110/60; PULSE 94; TEMP 98.3; O2SAT 96
--- NOTE | 2018-06-26 06:55 | PQF ---
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 The patient's Clinical Indicators include: gastroparesis Query created by: Rain Otero on 06/25/2018 9:49 AM Electronically signed by: Joel Lake 06/26/2018 6:52 AM
== END 2018-06-24 16:20 | disposition home or self-care (01) | DRG 73 ==
LOC: H.ER 22:09 → H.ERHOLD 06-22 → H.TEL 06-22 04:26
PROVIDERS: ADMIT Internal Medicine; ATTEND Internal Medicine
PROC: 5A1D70Z Performance of Urinary Filtration, Intermittent, Less than 6 Hours Per Day (ICD-10-PCS; principal; 2018-06-24)
DX: E11.43 Type 2 diabetes mellitus with diabetic autonomic (poly)neuropathy (principal); N18.6 End stage renal disease; I12.0 Hypertensive chronic kidney disease with stage 5 chronic kidney disease or end stage renal disease; K31.84 Gastroparesis; D63.1 Anemia in chronic kidney disease; E78.00 Pure hypercholesterolemia, unspecified; E78.5 Hyperlipidemia, unspecified; Z86.73 Personal history of transient ischemic attack (TIA), and cerebral infarction without residual deficits; Z99.2 Dependence on renal dialysis; Z87.891 Personal history of nicotine dependence; Z79.4 Long term (current) use of insulin; K59.09 Other constipation; E11.22 Type 2 diabetes mellitus with diabetic chronic kidney disease; E11.65 Type 2 diabetes mellitus with hyperglycemia; E11.51 Type 2 diabetes mellitus with diabetic peripheral angiopathy without gangrene; Z88.0 Allergy status to penicillin; K20.9 Esophagitis, unspecified; Z89.431 Acquired absence of right foot; I25.10 Atherosclerotic heart disease of native coronary artery without angina pectoris

== ENCOUNTER 2018-07-10 19:52 | Emergency (ER) | payer OTHER ==
[2018-07-10 19:57] VITALS: BMI 40.4
[2018-07-10] MEDS ORDERED: Sodium Chloride 0.9% 500 ML IV STA (20:46)
[2018-07-10 21:54] LABS: BASO % 0.2 % (0.0-2.0); EOS % 0.1 % (0.0-4.0); HEMOGLOBIN 10.3 g/dL (12.0-18.0); LYMPH # 1.4 K/uL (1.0-4.3); LYMPH % 9.3 % (20.0-40.0); MEAN CELL VOLUME 82.1 fl (80.0-94.0); MEAN CORPUSCULAR HEMOGLOBIN 26.2 pg (27.0-31.0); MEAN CORPUSCULAR HGB CONC 31.9 g/dL (33.0-37.0); MEAN PLATELET VOLUME 8.4 fl (7.2-11.7); MONO # 0.7 K/uL (0.0-0.8); MONO % 4.8 % (0.0-10.0); NEUT # 12.9 K/uL (1.8-7.0); NEUT % 85.6 % (50.0-75.0); NRBC % 0.1 % (0.0-0.0); PLATELET COUNT 234 K/uL (130-400); RBC 3.92 Mil/uL (4.40-5.90); RED CELL DISTRIBUTION WIDTH 16.3 % (11.5-14.5); WHITE BLOOD COUNT 15.1 K/uL (4.8-10.8)
[2018-07-10 22:40] LABS: LYMPHOCYTE 13 % (20-50); MONOCYTE 5 % (0-10); NEUTROPHIL 82 % (42-75); PLATELET ESTIMATE NORMAL (NORMAL); TOTAL CELLS COUNTED 100
[2018-07-10 22:41] LABS: ANISOCYTOSIS SLIGHT; HYPOCHROMIC SLIGHT; MICROCYTOSIS SLIGHT; OVALOCYTES SLIGHT; POIKILOCYTOSIS SLIGHT; POLYCHROMIC SLIGHT
[2018-07-10 22:42] LABS: ALB/GLOB RATIO 1.1 (1.0-2.1); ALBUMIN 4.1 g/dL (3.5-5.0); CALCIUM 9.3 mg/dL (8.4-10.2)
--- NOTE | 2018-07-10 23:14 | ED PDOC ---
HPI: Abdomen Time Seen by Provider: 07/10/18 20:15 Chief Complaint (Nursing): Abdominal Pain Chief Complaint (Provider): Abdominal Pain History Per: Patient History/Exam Limitations: no limitations Onset/Duration Of Symptoms: Hrs (x19) Location Of Pain/Discomfort: Epigastric Quality Of Discomfort: "Pain" Associated Symptoms: Nausea, Vomiting Additional Complaint(s): 47 year old male with a history of anemia, cva, dm, hypertension, hypercholesterolemia, hyperlipidemia, end stage renal disease, and gastroparesis presents to the ED for nausea, vomiting and epigastric discomfort onset 4 am. He is a dialysis patient who went for a treatment yesterday. Patient reports having similar symptoms two weeks ago. At the time he came to [facility]. He denies chest pain, shortness of breath, back pain, diarrhea, fever, abdominal surgeries, or any other medical complaints. PMD: Dr. Gee Urologist: Dr. Rodríguez Past Medical History Reviewed: Historical Data, Nursing Documentation, Vital Signs Vital Signs: Last Vital Signs Temp 99.1 F 07/10/18 19:56 Pulse 110 H 07/10/18 19:56 Resp 16 07/10/18 19:56 BP 143/93 H 07/10/18 19:56 Pulse Ox 100 07/10/18 23:20 - Medical History PMH: Anemia, CVA, Diabetes (type II), HTN, Hypercholesterolemia, Hyperlipidemia , End Stage Renal Disease, Chronic Kidney Disease (ESRD pending HD) Denies: Arthritis, CHF, COPD, HIV, Hypothyroidism, Rheumatoid Arthritis - Family History Family History: States: Unknown Family Hx - Immunization History Hx Tetanus Toxoid Vaccination: No Hx Influenza Vaccination: No Hx Pneumococcal Vaccination: No - Home Medications Home Medications: Ambulatory Orders Medication Instructions Recorded Ferrous Sulfate 325 mg PO BID #0 tablet 10/15/16 Folic Acid 1 mg PO DAILY 12/01/16 Glipizide [Glipizide ER] 10 mg PO BID 12/01/16 Allopurinol [Zyloprim] 100 mg PO DAILY tab 07/19/17 Calcitriol 0.25 cap PO MWF 08/05/17 hydrALAZINE [Apresoline] 100 mg PO Q8 tab 09/26/17 Gabapentin [Neurontin] 100 mg PO TID 12/13/17 Magnesium Oxide [Mag-Ox] 400 mg PO BID 12/13/17 Nifedipine [Nifedipine ER] 30 mg PO DAILY 12/13/17 SITagliptin [Januvia] 50 mg PO BID 12/13/17 cloNIDine [Catapres] 0.3 mg PO TID 12/13/17 buPROPion [Wellbutrin] 100 mg PO BID 06/06/18 Atorvastatin [Lipitor] 40 mg PO HS tab 06/19/18 Calcium Acetate [Phoslo] 667 mg PO WM@0900,1300,1700 #90 tab 06/19/18 Losartan [Cozaar] 50 mg PO QPM tab 06/19/18 Metoprolol Succinate XL [Toprol XL] 50 mg PO DAILY tab 06/19/18 Vitamin B Complex/Vit C/Folic 1 tab PO DAILY #30 tab 06/19/18 [Nephro-Elsa] amLODIPine [Norvasc] 10 mg PO DAILY tab 06/19/18 Metoclopramide [Reglan] 5 mg PO Q8 #24 tab 06/24/18 Polyethylene Glycol 3350 [Miralax] 17 gm PO BID #30 packet 06/24/18 Ondansetron ODT [Zofran ODT] 4 mg PO DAILY PRN #20 odt 07/11/18 - Allergies Allergies/Adverse Reactions: Allergies Allergy/AdvReac Type Severity Reaction Status Date / Time Penicillins Allergy RASH Verified 06/21/18 22:12 Review of Systems ROS Statement: Except As Marked, All Systems Reviewed And Found Negative Gastrointestinal: Positive for: Nausea, Vomiting, Abdominal Pain Physical Exam - Reviewed Nursing Documentation Reviewed: Yes Vital Signs Reviewed: Yes - Physical Exam Comments: GENERAL APPEARANCE: Patient is awake, alert, oriented x 3, in no painful distress. SKIN: Warm, dry; (-) cyanosis. EYES: (-) conjunctival pallor, (-) scleral icterus. ENMT: Mucous membranes dry. NECK: (-) tenderness, (-) stiffness, (-) lymphadenopathy. CHEST AND RESPIRATORY: (-) rales, (-) rhonchi, (-) wheezes; breath sounds equal bilaterally. HEART AND CARDIOVASCULAR: (-) irregularity; (-) murmur, (-) gallop. ABDOMEN AND GI: (-) distention. Bowel sounds active; (-) tenderness, (-) guarding, (-) rebound, (-) palpable masses, (-) CVA tenderness. EXTREMITIES: (-) deformity, (-) edema, (+) distal pulses. NEURO AND PSYCH: Mental status as above; (-) focal findings. - Laboratory Results Result Diagrams: 07/10/18 21:45 07/10/18 20:48 - ECG O2 Sat by Pulse Oximetry: 100 (RA) Pulse Ox Interpretation: Normal Medical Decision Making Medical Decision Making: Time: 20:46 Initial Plan: --CMP --Lipase --Urine dip --CBC with differentials --NS --Pepcid 20 mg IVP --Zofran 4 mg IVP --Finger stick EKG : NSR at 86 bpm, no acute ST changes, as read by PA Lab results reviewed : wbc 15, hgb 10.3 / hct 32.2, bun 23 / creat 3.6, glucose 243, anion gap normal at 19. On re-evaluation, patient reports improvement of symptoms, denies any CP, SOB, abdominal pain, or nausea. On exam, patient remains AAOx3, in no acute distress. Abdomen soft, non-tender, repeat neuro exam shows no focal findings. Diagnostic results d/w the patient in great detail. Diagnosis of gastroparesis d /w the patient. Based on history, exam and diagnostic results, plan will be for outpatient follow up, advised to go to dialysis in the AM as scheduled. Patient instructed to follow-up with pmd in 1-2 days without fail. Advised to take medication as prescribed. Return to the emergency room at any time for any new or worsening symptoms. Patient states he fully agrees with and understands discharge instructions. States that he agrees with the plan and disposition. Verbalized and repeated discharge instructions and plan. I have given the patient opportunity to ask any additional questions. Scribe Attestation: Documented by Destini Carpio, acting as a scribe for Lili Monzon PA-C Provider Scribe Attestation: All medical record entries made by the Scribe were at my direction and personally dictated by me. I have reviewed the chart and agree that the record accurately reflects my personal performance of the history, physical exam, medical decision making, and the department course for this patient. I have also personally directed, reviewed, and agree with the discharge instructions and disposition. Disposition - Clinical Impression Clinical Impression: Gastroparesis, Nausea & vomiting - Patient ED Disposition Is Patient to be Admitted: No Counseled Patient/Family Regarding: Studies Performed, Diagnosis, Need For Followup, Rx Given - Disposition Disposition: Routine/Home Disposition Time: 00:00 Condition: IMPROVED Additional Instructions: Andrea por dejarnos atenderlo hoy. Usted fue tratado por nuseas, vmitos, gastroparesia. La atencin mdica de emergencia que recibi hoy se dirigi a los sntomas agudos de presentacin. Vaya a dilisis por la maana segn lo programado. Si le prescribieron algn medicamento, por favor llnelo y d brandon se lo indic. Colleen sntomas pueden tardar varios evans en resolverse. Regrese al Departamento de Emergencia en cualquier momento si los sntomas empeoran, no mejoran o si surge algn otro problema. Por favor, pngase en contacto con roblero mdico en 2 evans para ailyn nueva evaluaci n y seguimiento. Lleve todos los documentos que recibi al momento del nichelle junto con los medicamentos a roblero visita de seguimiento. Nuestro tratamiento no puede reemplazar la atencin mdica en curso por parte de un proveedor de atenci n primaria (PCP) fuera del departamento de emergencias. Andrea por permitir que el equipo de [facility] sea parte de roblero cuidado hoy. Prescriptions: Ondansetron ODT [Zofran ODT] 4 mg PO DAILY PRN #20 odt PRN Reason: Nausea/Vomiting Instructions: Nausea and Vomiting, Adult (DC), Gastroparesis (Delayed Gastric Emptying) Forms: [facility] (Wolof) Print Language: GERMAN
[2018-07-11 00:59] VITALS: TEMP 97.9
[2018-07-11 03:45] VITALS: BP 153/66; PULSE 80; RESP 15; O2SAT 98
== END 2018-07-11 05:15 | disposition home or self-care (01) ==
LOC: H.ER 19:52
DX: K31.84 Gastroparesis (principal); R11.2 Nausea with vomiting, unspecified; I12.0 Hypertensive chronic kidney disease with stage 5 chronic kidney disease or end stage renal disease; E78.00 Pure hypercholesterolemia, unspecified; Z79.84 Long term (current) use of oral hypoglycemic drugs; Z88.0 Allergy status to penicillin
CPT/HCPCS: 80053; 83690; 85025; 96374; 96375; 99284; J2405; J7030

== ENCOUNTER 2018-07-15 21:33 | Emergency (ER) | payer OTHER ==
[2018-07-15 21:33] VITALS: BMI 40.4
--- NOTE | 2018-07-15 22:25 | ED PDOC ---
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 Patient reports he has vomited over 10 times, initially non-bloody non-bilious. Patient denies blood in vomit but friend states he saw some specks of blood. Patient now has epigastric pain with vomiting. He has been compliant with his dialysis but was unable to take his medications today because of his vomiting. Past Medical History Reviewed: Historical Data, Nursing Documentation, Vital Signs Vital Signs: Last Vital Signs Temp 99.1 F 07/16/18 00:59 Pulse 81 07/16/18 02:12 Resp 20 07/16/18 02:12 BP 173/78 H 07/16/18 02:12 Pulse Ox 100 07/16/18 00:59 - Medical History PMH: Anemia, CVA, Diabetes (type II), HTN, Hypercholesterolemia, Hyperlipidemia , End Stage Renal Disease, Chronic Kidney Disease (ESRD pending HD) Denies: Arthritis, CHF, COPD, HIV, Hypothyroidism, Rheumatoid Arthritis - Family History Family History: States: Unknown Family Hx - Immunization History Hx Tetanus Toxoid Vaccination: No Hx Influenza Vaccination: No Hx Pneumococcal Vaccination: No - Home Medications Home Medications: Ambulatory Orders Medication Instructions Recorded Ferrous Sulfate 325 mg PO BID #0 tablet 10/15/16 Folic Acid 1 mg PO DAILY 12/01/16 Glipizide [Glipizide ER] 10 mg PO BID 12/01/16 Allopurinol [Zyloprim] 100 mg PO DAILY tab 07/19/17 Calcitriol 0.25 cap PO MWF 08/05/17 hydrALAZINE [Apresoline] 100 mg PO Q8 tab 09/26/17 Gabapentin [Neurontin] 100 mg PO TID 12/13/17 Magnesium Oxide [Mag-Ox] 400 mg PO BID 12/13/17 Nifedipine [Nifedipine ER] 30 mg PO DAILY 12/13/17 SITagliptin [Januvia] 50 mg PO BID 12/13/17 cloNIDine [Catapres] 0.3 mg PO TID 12/13/17 buPROPion [Wellbutrin] 100 mg PO BID 06/06/18 Atorvastatin [Lipitor] 40 mg PO HS tab 06/19/18 Calcium Acetate [Phoslo] 667 mg PO WM@0900,1300,1700 #90 tab 06/19/18 Losartan [Cozaar] 50 mg PO QPM tab 06/19/18 Metoprolol Succinate XL [Toprol XL] 50 mg PO DAILY tab 06/19/18 Vitamin B Complex/Vit C/Folic 1 tab PO DAILY #30 tab 06/19/18 [Nephro-Elsa] amLODIPine [Norvasc] 10 mg PO DAILY tab 06/19/18 Metoclopramide [Reglan] 5 mg PO Q8 #24 tab 06/24/18 Polyethylene Glycol 3350 [Miralax] 17 gm PO BID #30 packet 06/24/18 Ondansetron ODT [Zofran ODT] 4 mg PO DAILY PRN #20 odt 07/11/18 Ondansetron ODT [Zofran ODT] 4 mg PO Q8 PRN #12 odt 07/16/18 - Allergies Allergies/Adverse Reactions: Allergies Allergy/AdvReac Type Severity Reaction Status Date / Time Penicillins Allergy RASH Verified 07/15/18 21:35 Review of Systems ROS Statement: Except As Marked, All Systems Reviewed And Found Negative Constitutional: Negative for: Fever Gastrointestinal: Positive for: Nausea, Vomiting, Abdominal Pain. Negative for : Hematemesis Physical Exam - Reviewed Nursing Documentation Reviewed: Yes Vital Signs Reviewed: Yes - Physical Exam Appears: Positive for: Non-toxic, No Acute Distress Head Exam: Positive for: ATRAUMATIC, NORMOCEPHALIC Skin: Positive for: Normal Color, Warm, Dry Eye Exam: Positive for: EOMI, Normal appearance, PERRL Neck: Positive for: Normal, Painless ROM, Supple Cardiovascular/Chest: Positive for: Regular Rate, Rhythm. Negative for: Murmur Respiratory: Positive for: Normal Breath Sounds. Negative for: Respiratory Distress Gastrointestinal/Abdominal: Positive for: Normal Exam, Soft, Other (dry heaving) . Negative for: Tenderness Back: Positive for: Normal Inspection. Negative for: L CVA Tenderness, R CVA Tenderness Extremity: Positive for: Normal ROM. Negative for: Pedal Edema, Deformity Neurologic/Psych: Positive for: Alert, Oriented. Negative for: Motor/Sensory Deficits - Laboratory Results Result Diagrams: 07/15/18 22:25 07/15/18 22:25 - ECG O2 Sat by Pulse Oximetry: 98 (RA) Pulse Ox Interpretation: Normal Medical Decision Making Medical Decision Making: Time: 22:10 A/P: Patient is 47 y/o with history of ESRD, Gastroparesis, and Hypertension who presents with nausea and vomiting. Patient is stable however hypertensive, likely from vomiting and not being able to take meds. Current symptoms are most likely related to diabetic Gastroparesis. Not currently concerned for acute appendicitis, cholecystitis, or other acute intraabdominal or surgical pathology. --BMP --Lipase --CBC w/ diff --Pepcid --Zofran 4AM Patient is no longer vomiting, feeling better. Hypertense but advised to take medication when he gets home since he could not take it today. Tolerating PO. ----- Scribe Attestation: Documented by Surya Viera, acting as a scribe for Nathan Francisco MD. Provider Scribe Attestation: All medical record entries made by the Scribe were at my direction and personally dictated by me. I have reviewed the chart and agree that the record accurately reflects my personal performance of the history, physical exam, medical decision making, and the department course for this patient. I have also personally directed, reviewed, and agree with the discharge instructions and disposition. Disposition - Clinical Impression Clinical Impression: Nausea and vomiting - Patient ED Disposition Is Patient to be Admitted: No - Disposition Referrals: Ysabel Gee [Family Provider] - Disposition: Routine/Home Disposition Time: 03:58 Condition: IMPROVED Prescriptions: Ondansetron ODT [Zofran ODT] 4 mg PO Q8 PRN #12 odt PRN Reason: Nausea/Vomiting Instructions: Nausea and Vomiting, Adult (DC) Forms: [facility] (Ivorian) Print Language: SWEDISH
[2018-07-15 22:35] LABS: BASO # 0.1 K/uL (0.0-0.2); BASO % 0.7 % (0.0-2.0); EOS % 0.4 % (0.0-4.0); HEMOGLOBIN 11.2 g/dL (12.0-18.0); LYMPH # 1.3 K/uL (1.0-4.3); LYMPH % 10.4 % (20.0-40.0); MEAN CORPUSCULAR HEMOGLOBIN 25.6 pg (27.0-31.0); MEAN CORPUSCULAR HGB CONC 31.6 g/dL (33.0-37.0); MEAN PLATELET VOLUME 8.8 fl (7.2-11.7); MONO # 0.5 K/uL (0.0-0.8); MONO % 4.2 % (0.0-10.0); NEUT # 10.5 K/uL (1.8-7.0); NEUT % 84.3 % (50.0-75.0); RBC 4.35 Mil/uL (4.40-5.90); WHITE BLOOD COUNT 12.5 K/uL (4.8-10.8)
[2018-07-15 22:50] LABS: CALCIUM 9.6 mg/dL (8.4-10.2)
[2018-07-16 01:00] VITALS: TEMP 99.1
[2018-07-16 02:21] VITALS: BP 173/78; PULSE 81; RESP 20
[2018-07-16 03:59] VITALS: O2SAT 98
== END 2018-07-16 03:50 | disposition home or self-care (01) ==
LOC: H.ER 21:33
DX: R11.2 Nausea with vomiting, unspecified (principal); I12.0 Hypertensive chronic kidney disease with stage 5 chronic kidney disease or end stage renal disease; N18.6 End stage renal disease; Z79.84 Long term (current) use of oral hypoglycemic drugs; E78.00 Pure hypercholesterolemia, unspecified; Z88.0 Allergy status to penicillin
CPT/HCPCS: 80048; 83690; 85025; 96374; 96375; 99284; J2405; J2765

== ENCOUNTER 2018-09-06 10:29 | Emergency (ER) | payer OTHER ==
[2018-09-06 10:30] VITALS: BMI 40.4
[2018-09-06 10:59] VITALS: RESP 18; O2SAT 100
--- NOTE | 2018-09-06 11:40 | ED PDOC ---
Upper Extremity Pain/Injury Time Seen by Provider: 09/06/18 10:34 Chief Complaint (Nursing): Upper Extremity Problem/Injury Chief Complaint (Provider): Shoulder pain History Per: Patient Additional Complaint(s): 47 yr old M presents to ED with complaints of left shoulder pain x 5 days, denies trauma to area. PMHx includes ESRD (hemodialysis started during recent admission to [facility]), IDDM, HTN, hx CVA, HLD, gastroparesis and anemia. Patient reports he was discharged on 06/19/18 and felt fine. Pt has lt subclavian dialysis port, placed 4 moinths ago. Last hemodialysis was yesterday at 1pm, denies complications. Pt denies nay chest pain or SOB, no palpitations. Pt notes he has had this pain in the past and was started on Gabapentin by his PMD bc of the "nerve pain." Pt has been on the Gabapentin without relief. Pain is worse with movement. PMD: Ysabel Vila Nephrology: Dr. Rodríguez Surgery: Dr. Kulkarni Past Medical History Reviewed: Historical Data, Nursing Documentation, Vital Signs Vital Signs: Last Vital Signs Temp 97 F L 09/06/18 10:40 Pulse 86 09/06/18 10:40 Resp 18 09/06/18 10:40 BP 121/76 09/06/18 10:40 Pulse Ox 100 09/06/18 10:40 - Medical History PMH: Anemia, CVA, Diabetes (type II), HTN, Hypercholesterolemia, Hyperlipidemia, End Stage Renal Disease, Chronic Kidney Disease (ESRD pending HD) Denies: Arthritis, CHF, COPD, HIV, Hypothyroidism, Rheumatoid Arthritis - Family History Family History: States: Unknown Family Hx - Social History Current smoker - smoking cessation education provided: No Alcohol: None Drugs: Denies - Immunization History Hx Tetanus Toxoid Vaccination: No Hx Influenza Vaccination: No Hx Pneumococcal Vaccination: No - Home Medications Home Medications: Ambulatory Orders Medication Instructions Recorded RX: Ferrous Sulfate 325 mg PO BID #0 tablet 10/15/16 RX: Folic Acid 1 mg PO DAILY 12/01/16 RX: Glipizide [Glipizide ER] 10 mg PO BID 12/01/16 RX: Allopurinol [Zyloprim] 100 mg PO DAILY tab 07/19/17 RX: Calcitriol 0.25 cap PO MWF 08/05/17 RX: hydrALAZINE [Apresoline] 100 mg PO Q8 tab 09/26/17 RX: Gabapentin [Neurontin] 100 mg PO TID 12/13/17 RX: Magnesium Oxide [Mag-Ox] 400 mg PO BID 12/13/17 RX: Nifedipine [Nifedipine ER] 30 mg PO DAILY 12/13/17 RX: SITagliptin [Januvia] 50 mg PO BID 12/13/17 RX: cloNIDine [Catapres] 0.3 mg PO TID 12/13/17 RX: buPROPion [Wellbutrin] 100 mg PO BID 06/06/18 RX: Atorvastatin [Lipitor] 40 mg PO HS tab 06/19/18 RX: Calcium Acetate [Phoslo] 667 mg PO WM@0900,1300,1700 #90 tab 06/19/18 RX: Losartan [Cozaar] 50 mg PO QPM tab 06/19/18 RX: Metoprolol Succinate XL 50 mg PO DAILY tab 06/19/18 [Toprol XL] RX: Vitamin B Complex/Vit C/Folic 1 tab PO DAILY #30 tab 06/19/18 [Nephro-Elsa] RX: amLODIPine [Norvasc] 10 mg PO DAILY tab 06/19/18 RX: Metoclopramide [Reglan] 5 mg PO Q8 #24 tab 06/24/18 RX: Polyethylene Glycol 3350 17 gm PO BID #30 packet 06/24/18 [Miralax] Ondansetron ODT [Zofran ODT] 4 mg PO DAILY PRN #20 odt 07/11/18 Ondansetron ODT [Zofran ODT] 4 mg PO Q8 PRN #12 odt 07/16/18 RX: Lidocaine 1 each TP Q12 #12 adh..patch 09/06/18 - Allergies Allergies/Adverse Reactions: Allergies Allergy/AdvReac Type Severity Reaction Status Date / Time Penicillins Allergy RASH Verified 09/06/18 10:40 Review of Systems ROS Statement: Except As Marked, All Systems Reviewed And Found Negative Musculoskeletal: Positive for: Shoulder Pain Physical Exam - Reviewed Nursing Documentation Reviewed: Yes Vital Signs Reviewed: Yes - Physical Exam Appears: Positive for: Well, Non-toxic, No Acute Distress Head Exam: Positive for: ATRAUMATIC, NORMAL INSPECTION, NORMOCEPHALIC Skin: Positive for: Normal Color, Warm. Negative for: Rash Eye Exam: Positive for: EOMI, Normal appearance, PERRL ENT: Positive for: Normal ENT Inspection Neck: Positive for: Normal, Painless ROM Cardiovascular/Chest: Positive for: Regular Rate, Rhythm Respiratory: Positive for: CNT, Normal Breath Sounds Gastrointestinal/Abdominal: Positive for: Normal Exam, Soft Back: Positive for: Normal Inspection Extremity: Positive for: Normal ROM. Negative for: Tenderness, Deformity, Swelling Neurologic/Psych: Positive for: Alert, Oriented - Laboratory Results Result Diagrams: 09/06/18 12:38 09/06/18 12:38 - ECG O2 Sat by Pulse Oximetry: 100 Medical Decision Making Medical Decision Making: Diagnostics ordered, Pt medicated iwth Morphine. good relief of pain obtained labs resulted and reviewed with Dr. Rodríguez Pt stable for discharge home at this time pt to go to dialysis on Saturday Disposition - Clinical Impression Clinical Impression: Shoulder pain - Patient ED Disposition Is Patient to be Admitted: No - Disposition Disposition: Routine/Home Disposition Time: 15:00 Condition: STABLE Prescriptions: RX: Lidocaine 1 each TP Q12 #12 adh..patch Instructions: Shoulder Pain (DC) Forms: [employer] (Canadian) Print Language: FAROESE
--- NOTE | 2018-09-06 12:23 | RAD ---
Date of service: 09/06/2018 PROCEDURE: CHEST RADIOGRAPH, 1 VIEW HISTORY: left shoulder pain COMPARISON: 06/22/2018 FINDINGS: LUNGS: No new infiltrate. PLEURA: No pneumothorax or pleural fluid seen. CARDIOVASCULAR: Cardiomegaly. Left catheter now lies within the right atrium, previously in the proximal SVC. OSSEOUS STRUCTURES: No significant abnormalities. VISUALIZED UPPER ABDOMEN: Normal. OTHER FINDINGS: None. IMPRESSION: Cardiomegaly. No focal infiltrate or CHF.
--- NOTE | 2018-09-06 12:24 | RAD ---
Date of service: 09/06/2018 PROCEDURE: Radiographs of the Left Shoulder HISTORY: pain COMPARISON: 08/31/2016 FINDINGS: BONES: Normal. No fracture. JOINTS: Normal. Glenohumeral and acromioclavicular joints preserved. Minimal degenerative change.. SOFT TISSUES: Normal. OTHER FINDINGS: Left catheter is seen overlying the left clavicle in upper chest region. IMPRESSION: Normal radiographs of the left shoulder.
[2018-09-06 12:43] LABS: BASO # 0.1 K/uL (0.0-0.2); BASO % 0.9 % (0.0-2.0); EOS # 0.3 K/uL (0.0-0.7); EOS % 2.9 % (0.0-4.0); LYMPH # 2.4 K/uL (1.0-4.3); LYMPH % 22.5 % (20.0-40.0); MEAN CELL VOLUME 83.8 fl (80.0-94.0); MEAN CORPUSCULAR HEMOGLOBIN 26.8 pg (27.0-31.0); MEAN CORPUSCULAR HGB CONC 31.9 g/dL (33.0-37.0); MEAN PLATELET VOLUME 8.3 fl (7.2-11.7); MONO # 0.8 K/uL (0.0-0.8); NEUT # 6.9 K/uL (1.8-7.0); NEUT % 65.7 % (50.0-75.0); RBC 3.34 Mil/uL (4.40-5.90); RED CELL DISTRIBUTION WIDTH 17.8 % (11.5-14.5); WHITE BLOOD COUNT 10.4 K/uL (4.8-10.8)
[2018-09-06 12:44] LABS: HEMOGLOBIN 8.9 g/dL (12.0-18.0)
[2018-09-06 12:53] LABS: ALBUMIN 3.8 g/dL (3.5-5.0)
[2018-09-06 13:05] LABS: TROPONIN I 0.017 ng/mL (0.00-0.120)
[2018-09-06 15:30] VITALS: BP 117/81; PULSE 77; TEMP 98.7
--- NOTE | 2018-09-07 08:03 | CARD ---
APPROVED REPORT Date of service: 09/06/2018 EKG Measurement Heart [id number] <Conclusion> Normal sinus rhythm Normal ECG
== END 2018-09-06 15:29 | disposition home or self-care (01) ==
LOC: H.ER 10:29
DX: M25.512 Pain in left shoulder (principal); I12.0 Hypertensive chronic kidney disease with stage 5 chronic kidney disease or end stage renal disease; E78.00 Pure hypercholesterolemia, unspecified; Z79.84 Long term (current) use of oral hypoglycemic drugs; Z88.0 Allergy status to penicillin; Z99.2 Dependence on renal dialysis
CPT/HCPCS: 71045; 73030; 80053; 84484; 85025; 93005; 96374; 99283; J2270

== ENCOUNTER 2018-09-10 10:10 | Inpatient (IN) | payer OTHER ==
[2018-09-10 10:10] VITALS: BMI 40.4
[2018-09-10] MEDS ORDERED: Labetalol 5 mg/ml Inj 20ML IVP STA (11:05)
[2018-09-10 12:00] LABS: BASO # 0.1 K/uL (0.0-0.2); BASO % 0.3 % (0.0-2.0); EOS % 0.1 % (0.0-4.0); HEMOGLOBIN 10.9 g/dL (12.0-18.0); LYMPH % 6.3 % (20.0-40.0); MEAN CELL VOLUME 82.5 fl (80.0-94.0); MEAN CORPUSCULAR HEMOGLOBIN 27.1 pg (27.0-31.0); MEAN CORPUSCULAR HGB CONC 32.8 g/dL (33.0-37.0); MEAN PLATELET VOLUME 8.4 fl (7.2-11.7); MONO # 0.5 K/uL (0.0-0.8); MONO % 3.1 % (0.0-10.0); NEUT # 14.5 K/uL (1.8-7.0); NEUT % 90.2 % (50.0-75.0); NRBC % 0.1 % (0.0-0.0); PLATELET COUNT 414 K/uL (130-400); RBC 4.04 Mil/uL (4.40-5.90); RED CELL DISTRIBUTION WIDTH 18.1 % (11.5-14.5); WHITE BLOOD COUNT 16.1 K/uL (4.8-10.8)
--- NOTE | 2018-09-10 12:00 | RAD ---
Date of service: 09/10/2018 PROCEDURE: CHEST RADIOGRAPH, 1 VIEW HISTORY: Dyspnea COMPARISON: 09/06/2018. FINDINGS: The left-sided dialysis catheter terminates in the right atrium. LUNGS: The lungs are well inflated and clear. PLEURA: No pneumothorax or pleural fluid seen. CARDIOVASCULAR: There is mild cardiomegaly. OSSEOUS STRUCTURES: No significant abnormalities. VISUALIZED UPPER ABDOMEN: Normal. OTHER FINDINGS: None. IMPRESSION: No acute findings.
[2018-09-10 12:06] LABS: INR 1.2; PROTHROMBIN TIME 13.3 Seconds (9.8-13.1)
[2018-09-10 12:08] LABS: PARTIAL THROMBOPLASTIN TIME 38.8 Seconds (25.6-37.1)
[2018-09-10 12:14] LABS: ALB/GLOB RATIO 0.9 (1.0-2.1); ALBUMIN 4.9 g/dL (3.5-5.0); CALCIUM 10.9 mg/dL (8.4-10.2)
[2018-09-10 13:18] LABS: LYMPHOCYTE 4 % (20-50); MONOCYTE 3 % (0-10); NEUTROPHIL 93 % (42-75); TOTAL CELLS COUNTED 100
[2018-09-10 13:19] LABS: PLATELET ESTIMATE SLIGHTLY INCREASED (NORMAL)
[2018-09-10 13:20] LABS: ANISOCYTOSIS SLIGHT; HYPOCHROMIC SLIGHT
--- NOTE | 2018-09-10 13:48 | CARD ---
APPROVED REPORT Date of service: 09/10/2018 EKG Measurement Heart [id number] <Conclusion> Sinus tachycardia Otherwise normal ECG
--- NOTE | 2018-09-10 13:59 | ED PDOC ---
HPI: Abdomen Time Seen by Provider: 09/10/18 10:49 Chief Complaint (Nursing): GI Problem Chief Complaint (Provider): GI Problem History Per: Patient History/Exam Limitations: no limitations Onset/Duration Of Symptoms: Days (x1) Current Symptoms Are (Timing): Still Present Location Of Pain/Discomfort: Epigastric Associated Symptoms: Vomiting. denies: Chest Pain, Urinary Symptoms Additional Complaint(s): 47 y/o male with a PMHx of HTN, DM, End Stage Renal Disease presents to the ED for evaluation of multiple episodes of hematemesis, onset yesterday. Patient reports symptom is associated with mild epigastric pain. Patient additionally reports of noticing darker vomit today. Patient states he is on dialysis on , Saturday and Saturday and was last seen on Saturday. Patient reports he did not go to dialysis today due to his multiple episodes of vomiting. Otherwise, patient denies hematuria, chest pain and dyspnea. 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 foot and Dialysis shunt on the left side - Family History Family History: States: Unknown Family Hx - Immunization History Hx Tetanus Toxoid Vaccination: No Hx Influenza Vaccination: No Hx Pneumococcal Vaccination: No - Home Medications Home Medications: Ambulatory Orders Medication Instructions Recorded RX: Folic Acid 1 mg PO DAILY 12/01/16 RX: Allopurinol [Zyloprim] 100 mg PO DAILY tab 07/19/17 RX: Calcitriol 0.25 cap PO MWF 08/05/17 RX: Gabapentin [Neurontin] 100 mg PO Q8 12/13/17 RX: Nifedipine [Nifedipine ER] 30 mg PO DAILY 12/13/17 RX: cloNIDine [Catapres] 0.3 mg PO Q8 12/13/17 RX: Vitamin B Complex/Vit C/Folic 1 tab PO DAILY #30 tab 06/19/18 [Nephro-Elsa] RX: Ergocalciferol (Vitamin D2) 50,000 unit PO QWK 09/10/18 [Vitamin D2] RX: Ferrous Sulfate 325 mg PO Q8 09/10/18 RX: GlipiZIDE [Glucotrol] 10 mg PO BID 09/10/18 RX: Hydralazine HCl 100 mg PO Q8 09/10/18 RX: Lidocaine 1 patch TOP DAILY 09/10/18 RX: Losartan [Cozaar] 50 mg PO DAILY 09/10/18 RX: Metoprolol Tartrate [Lopressor] 50 mg PO DAILY 09/10/18 RX: SITagliptin [Januvia] 25 mg PO BID 09/10/18 RX: Pantoprazole [Protonix EC Tab] 40 mg PO Q12 #14 ect 09/12/18 - Allergies Allergies/Adverse Reactions: Allergies Allergy/AdvReac Type Severity Reaction Status Date / Time Penicillins Allergy RASH Verified 09/10/18 10:27 Review of Systems ROS Statement: Except As Marked, All Systems Reviewed And Found Negative Cardiovascular: Negative for: Chest Pain Respiratory: Negative for: Other (dyspnea) Gastrointestinal: Positive for: Vomiting (darker today), Abdominal Pain (epigastic), Hematemesis Genitourinary Male: Negative for: Hematuria Physical Exam - Reviewed Nursing Documentation Reviewed: Yes Vital Signs Reviewed: Yes - Physical Exam Appears: Positive for: Uncomfortable Head Exam: Positive for: ATRAUMATIC, NORMOCEPHALIC Skin: Positive for: Normal Color, Warm, Dry Eye Exam: Positive for: Normal appearance, EOMI, PERRL Neck: Positive for: Normal, Painless ROM Cardiovascular/Chest: Positive for: Tachycardia Respiratory: Positive for: Normal Breath Sounds. Negative for: Respiratory Distress Gastrointestinal/Abdominal: Positive for: Normal Exam, Soft, Tenderness (mild epigastric tenderness) Back: Positive for: Normal Inspection. Negative for: L CVA Tenderness, R CVA Tenderness, Vertebral Tenderness Extremity: Positive for: Normal ROM, Deformity (Right foot amputation noticed otherwise normal). Negative for: Swelling Neurologic/Psych: Positive for: Alert, Oriented. Negative for: Motor/Sensory Deficits - Laboratory Results Result Diagrams: 09/12/18 11:50 09/11/18 05:19 - ECG O2 Sat by Pulse Oximetry: 100 (RA) Pulse Ox Interpretation: Normal Medical Decision Making Medical Decision Making: Time: 1116 Impression: Vomiting, hematemesis, End Stage Renal Disease Differentials include but not limited to GI bleed, Gastritis, peptic ulcer disease Additionally hyperkalemia, acute on chronic renal failure and gastroparesis Plan: -- CT Abd/Pelvis w/o PO or IV Contrast -- EKG -- Protonix Inj 40 mg IVP -- Reglan 0 mg Sodium Chloride 0.9% 50 ml IVPB -- Trandate 20 mg IVP -- Zofran Inj 4 mg IV -- IV Insertion -- CXR One View -- Glucose, POC Time: 1159 Plan: -- Ammonia -- CMP -- Lipase -- CBC with differentials -- PTT -- Prothrombin Time Time: 1330 Plan: -- Call Gastroenterology Consult -- Call Nephrology connsult -- Admit to Hospital -- Case discussed with Dr. Xie, who is covering for Dr. Reed regarding admission. -- Case additionally discussed with Dr. Jc who agrees with admission and ER management. Time: 1353 -- Spoke to Dr. Rodríguez who arranged dialysis for tomorrow. Provider states dialysis was not emergent to be scheduled today. Time: 1354 Plan: -- Type and Screen Time: 1426 CT ABDOMEN AND PELVIS FINDINGS: LOWER THORAX: The visualized lungs are clear. LIVER: Normal in size. No intrahepatic ductal dilatation. GALLBLADDER AND BILE DUCTS: No calcified gallstones. There is sludge within the gallbladder no biliary dilatation PANCREAS: Normal in size. No ductal dilatation. SPLEEN: Normal in size. ADRENALS: Normal in size. No discrete nodule. KIDNEYS AND URETERS: Bilateral renal cortical atrophy and nonspecific perinephric fat stranding, unchanged. No hydronephrosis. VASCULATURE: No aortic aneurysm. BOWEL: The small bowel loops are normal in caliber. There is large amount of stool in the colon with fecal impaction in the rectum. No bowel dilatation or wall thickening. No bowel obstruction. APPENDIX: Normal appendix. PERITONEUM: No free fluid. No free air. LYMPH NODES: No enlarged lymph nodes. BLADDER: Well distended and grossly normal in appearance. REPRODUCTIVE: The uterus is normal in size BONES: No acute fracture. Diffuse bone demineralization. Chronic superior endplate compression deformities in the L2 and L5 vertebral bodies. OTHER FINDINGS: None. IMPRESSION: No acute abdominal or pelvic abnormality. Constipation. No evidence for bowel obstruction. 1414 Patient admitted under the service of Dr. Reed. _ Scribe Attestation: Documented by Aman Cifuentes, acting as a scribe for Shaunna Doyle MD. Provider Scribe Attestation: All medical record entries made by the Scribe were at my direction and personally dictated by me. I have reviewed the chart and agree that the record accurately reflects my personal performance of the history, physical exam, medical decision making, and the department course for this patient. I have also personally directed, reviewed, and agree with the discharge instructions and disposition. Disposition - Clinical Impression Clinical Impression: Hyperglycemia, Vomiting, ESRD (end stage renal disease) on dialysis, Gastrop aresis, GI bleed - Patient ED Disposition Is Patient to be Admitted: Yes Discussed With DrKiara: Ever Xie Doctor Will See Patient In The: ED Counseled Patient/Family Regarding: Studies Performed, Diagnosis - Disposition Disposition Time: 13:00 Condition: FAIR - Pt Status Changed To: Hospital Disposition Of: Inpatient - Admit Certification Admit to Inpatient:: After my assessment, the patient will require hospitalization for at least two midnights. This is because of the severity of symptoms shown, intensity of services needed, and/or the medical risk in this patient being treated as an outpatient. - POA Present On Arrival: Poor Glycemic Control
--- NOTE | 2018-09-10 14:30 | CT ---
Date of service: 09/10/2018 PROCEDURE: CT Abdomen and Pelvis without intravenous contrast HISTORY: Abdominal pain and vomiting COMPARISON: 06/05/2018 TECHNIQUE: CT scan of the abdomen and pelvis was performed without administration of intravenous contrast. Oral contrast was not administered. Coronal and sagittal reformatted images were obtained. . Radiation dose: Total exam DLP = 979.89 mGy-cm. This CT exam was performed using one or more of the following dose reduction techniques: Automated exposure control, adjustment of the mA and/or kV according to patient size, and/or use of iterative reconstruction technique. FINDINGS: LOWER THORAX: The visualized lungs are clear. LIVER: Normal in size. No intrahepatic ductal dilatation. GALLBLADDER AND BILE DUCTS: No calcified gallstones. There is sludge within the gallbladder no biliary dilatation PANCREAS: Normal in size. No ductal dilatation. SPLEEN: Normal in size. ADRENALS: Normal in size. No discrete nodule. KIDNEYS AND URETERS: Bilateral renal cortical atrophy and nonspecific perinephric fat stranding, unchanged. No hydronephrosis. VASCULATURE: No aortic aneurysm. BOWEL: The small bowel loops are normal in caliber. There is large amount of stool in the colon with fecal impaction in the rectum. No bowel dilatation or wall thickening. No bowel obstruction. APPENDIX: Normal appendix. PERITONEUM: No free fluid. No free air. LYMPH NODES: No enlarged lymph nodes. BLADDER: Well distended and grossly normal in appearance. REPRODUCTIVE: The uterus is normal in size BONES: No acute fracture. Diffuse bone demineralization. Chronic superior endplate compression deformities in the L2 and L5 vertebral bodies. OTHER FINDINGS: None. IMPRESSION: No acute abdominal or pelvic abnormality. Constipation. No evidence for bowel obstruction.
[2018-09-10] MEDS: Pantoprazole 40 mg EC Tab PO SCH (22:02)
[2018-09-11 05:28] LABS: BASO # 0.1 K/uL (0.0-0.2); BASO % 0.6 % (0.0-2.0); EOS % 0.1 % (0.0-4.0); HEMOGLOBIN 9.6 g/dL (12.0-18.0); LYMPH # 2.6 K/uL (1.0-4.3); LYMPH % 16.5 % (20.0-40.0); MEAN CELL VOLUME 84.2 fl (80.0-94.0); MEAN CORPUSCULAR HEMOGLOBIN 26.7 pg (27.0-31.0); MEAN CORPUSCULAR HGB CONC 31.7 g/dL (33.0-37.0); MEAN PLATELET VOLUME 7.7 fl (7.2-11.7); MONO # 1.2 K/uL (0.0-0.8); MONO % 7.6 % (0.0-10.0); NEUT # 11.8 K/uL (1.8-7.0); NEUT % 75.2 % (50.0-75.0); RBC 3.6 Mil/uL (4.40-5.90); RED CELL DISTRIBUTION WIDTH 17.9 % (11.5-14.5); WHITE BLOOD COUNT 15.7 K/uL (4.8-10.8)
[2018-09-11 05:59] LABS: ALBUMIN 4.1 g/dL (3.5-5.0); CALCIUM 9.7 mg/dL (8.4-10.2)
[2018-09-11] MEDS: Dextrose 5%/0.45% NS 1,000 ML IV SCH ×2 (06:07→09:38)
--- NOTE | 2018-09-11 08:57 | CP.PCM.HP ---
History of Present Illness - History of Present Illness History of Present Illness: 47 year old male with a PMHx of CKD/ESRD on HD (FWF) DM2, hypertension, hyperlipidemia, prior CVA, anemia, who presented to ED yesterday complaining of dark/bloody vomiting since this AM associated some epigastric discomfort. Patient reports he had multiple episodes of NBNB emesis yesterday and vomits turn dark this morning. Patient does not use NSAIDS, does not take aspirin or blood thinners. Denies bloody stool, chest pain, shortness of breath, diarrhea, constipation, urinary symptoms, fever, chills. In the ED, Dr. Jc and Dr. Rodríguez were consulted. PMHx: hypertension, CKD/ESRD, DM2, hyperlipidemia, prior CVA, anemia Surg Hx: RLE partial foot amputation Soc Hx: denies x3 Fam Hx: pt does not know Allergies: none This morning, patient reports he is feeling better, nausea and vomiting has resolved. Patient will get HD today. Present on Admission - Present on Admission Any Indicators Present on Admission: No Review of Systems - Review of Systems All systems: reviewed and no additional remarkable complaints except Past Patient History - Infectious Disease Hx of Infectious Diseases: None - Past Medical History & Family History Past Medical History?: Yes - Past Social History Smoking Status: Never Smoked - CARDIAC Hx Congestive Heart Failure: No Hx Hypercholesterolemia: Yes Hx Hypertension: Yes - PULMONARY Hx Chronic Obstructive Pulmonary Disease (COPD): No - NEUROLOGICAL Hx Neurological Disorder: Yes HX Cerebrovascular Accident: Yes - HEENT Hx HEENT Problems: No - RENAL Hx Chronic Kidney Disease: Yes (ESRD pending HD) - ENDOCRINE/METABOLIC Hx Hypothyroidism: No - HEMATOLOGICAL/ONCOLOGICAL Hx Anemia: Yes Hx Human Immunodeficiency Virus (HIV): No - INTEGUMENTARY Hx Dermatological Problems: No - MUSCULOSKELETAL/RHEUMATOLOGICAL Hx Arthritis: No Hx Falls: No Hx Rheumatoid Arthritis: No - GASTROINTESTINAL Hx Gastrointestinal Disorders: Yes Hx Nausea: Yes Hx Vomiting: Yes Other/Comment: Gastroparesis - GENITOURINARY/GYNECOLOGICAL Hx Genitourinary Disorders: No - PSYCHIATRIC Hx Psychophysiologic Disorder: No Hx Substance Use: No - SURGICAL HISTORY Hx Surgeries: Yes Hx Amputation: Yes (tma right foot) Other/Comment: left suboccipital craniotomy - ANESTHESIA Hx Anesthesia: Yes Hx Anesthesia Reactions: No Hx Malignant Hyperthermia: No Meds Allergies/Adverse Reactions: Allergies Allergy/AdvReac Type Severity Reaction Status Date / Time Penicillins Allergy RASH Verified 09/10/18 10:27 Physical Exam - Constitutional Appears: Non-toxic, No Acute Distress - Head Exam Head Exam: NORMAL INSPECTION - Eye Exam Eye Exam: Normal appearance - ENT Exam ENT Exam: Mucous Membranes Moist - Respiratory Exam Respiratory Exam: Clear to Auscultation Bilateral, NORMAL BREATHING PATTERN. absent: Rhonchi, Wheezes - Cardiovascular Exam Cardiovascular Exam: REGULAR RHYTHM, +S1, +S2 - GI/Abdominal Exam GI & Abdominal Exam: Normal Bowel Sounds, Soft. absent: Guarding, Rebound, Tenderness - Rectal Exam Rectal Exam: Deferred - Extremities Exam Extremities exam: Negative for: calf tenderness Additional comments: RLE stump looks well. No signs of infection. - Neurological Exam Neurological exam: Alert, Oriented x3 - Psychiatric Exam Psychiatric exam: Normal Affect, Normal Mood - Skin Skin Exam: Normal Color, Warm Results - Vital Signs Recent Vital Signs: Last Vital Signs Temp 98.3 F 09/11/18 08:13 Pulse 68 09/11/18 08:13 Resp 18 09/11/18 08:13 BP 161/93 H 09/11/18 08:13 Pulse Ox 97 09/11/18 08:13 - Labs Result Diagrams: 09/11/18 05:19 09/11/18 05:19 Labs: Laboratory Results - last 24 hr 09/10/18 09/10/18 09/10/18 10:26 11:53 11:53 WBC 16.1 H D RBC 4.04 L Hgb 10.9 L D Hct 33.4 L MCV 82.5 MCH 27.1 MCHC 32.8 L RDW 18.1 H Plt Count 414 H D MPV 8.4 Neut % (Auto) 90.2 H Lymph % (Auto) 6.3 L Mower % (Auto) 3.1 Eos % (Auto) 0.1 Baso % (Auto) 0.3 Neut # (Auto) 14.5 H Lymph # (Auto) 1.0 Mower # (Auto) 0.5 Eos # (Auto) 0.0 Baso # (Auto) 0.1 Neutrophils % (Manual) 93 H Lymphocytes % (Manual) 4 L Monocytes % (Manual) 3 Platelet Estimate Slightly increased H Hypochromasia (manual) Slight Anisocytosis (manual) Slight PT INR APTT Sodium 145 Potassium 4.5 Chloride 99 Carbon Dioxide 24 Anion Gap 27 H BUN 37 H Creatinine 5.0 H Est GFR ( Amer) 15 Est GFR (Non-Af Amer) 13 POC Glucose (mg/dL) 312 H Random Glucose 309 H Calcium 10.9 H Total Bilirubin 0.9 AST 43 ALT 20 L Alkaline Phosphatase 155 H D Ammonia Total Protein 10.5 H Albumin 4.9 Globulin 5.6 H Albumin/Globulin Ratio 0.9 L Lipase 38 Blood Type Antibody Screen BBK History Checked 09/10/18 09/10/18 09/10/18 11:53 11:59 13:54 WBC RBC Hgb Hct MCV MCH MCHC RDW Plt Count MPV Neut % (Auto) Lymph % (Auto) Mower % (Auto) Eos % (Auto) Baso % (Auto) Neut # (Auto) Lymph # (Auto) Mower # (Auto) Eos # (Auto) Baso # (Auto) Neutrophils % (Manual) Lymphocytes % (Manual) Monocytes % (Manual) Platelet Estimate Hypochromasia (manual) Anisocytosis (manual) PT 13.3 H INR 1.2 APTT 38.8 H Sodium Potassium Chloride Carbon Dioxide Anion Gap BUN Creatinine Est GFR ( Amer) Est GFR (Non-Af Amer) POC Glucose (mg/dL) Random Glucose Calcium Total Bilirubin AST ALT Alkaline Phosphatase Ammonia < 9 L Total Protein Albumin Globulin Albumin/Globulin Ratio Lipase Blood Type O NEGATIVE Antibody Screen Negative BBK History Checked Patient has bt 09/10/18 09/10/18 09/11/18 17:05 21:35 05:19 WBC 15.7 H RBC 3.60 L Hgb 9.6 L Hct 30.3 L MCV 84.2 MCH 26.7 L MCHC 31.7 L RDW 17.9 H Plt Count 335 MPV 7.7 Neut % (Auto) 75.2 H Lymph % (Auto) 16.5 L Mower % (Auto) 7.6 Eos % (Auto) 0.1 Baso % (Auto) 0.6 Neut # (Auto) 11.8 H Lymph # (Auto) 2.6 Mower # (Auto) 1.2 H Eos # (Auto) 0.0 Baso # (Auto) 0.1 Neutrophils % (Manual) Lymphocytes % (Manual) Monocytes % (Manual) Platelet Estimate Hypochromasia (manual) Anisocytosis (manual) PT INR APTT Sodium Potassium Chloride Carbon Dioxide Anion Gap BUN Creatinine Est GFR ( Amer) Est GFR (Non-Af Amer) POC Glucose (mg/dL) 255 H 219 H Random Glucose Calcium Total Bilirubin AST ALT Alkaline Phosphatase Ammonia Total Protein Albumin Globulin Albumin/Globulin Ratio Lipase Blood Type Antibody Screen BBK History Checked 09/11/18 09/11/18 05:19 05:45 WBC RBC Hgb Hct MCV MCH MCHC RDW Plt Count MPV Neut % (Auto) Lymph % (Auto) Mower % (Auto) Eos % (Auto) Baso % (Auto) Neut # (Auto) Lymph # (Auto) Mower # (Auto) Eos # (Auto) Baso # (Auto) Neutrophils % (Manual) Lymphocytes % (Manual) Monocytes % (Manual) Platelet Estimate Hypochromasia (manual) Anisocytosis (manual) PT INR APTT Sodium 143 Potassium 4.4 Chloride 101 Carbon Dioxide 28 Anion Gap 18 BUN 50 H Creatinine 6.3 H Est GFR ( Amer) 12 Est GFR (Non-Af Amer) 10 POC Glucose (mg/dL) 168 H Random Glucose 171 H Calcium 9.7 Total Bilirubin 0.4 AST 32 ALT 28 Alkaline Phosphatase 109 Ammonia Total Protein 8.3 H Albumin 4.1 Globulin 4.2 H Albumin/Globulin Ratio 1.0 Lipase Blood Type Antibody Screen BBK History Checked Assessment & Plan - Assessment and Plan (Free Text) Assessment: 47 year old male with a PMHx of CKD/ESRD on HD (MWF) DM2, hypertension, hyperlipidemia, prior CVA, anemia, who presented to ED yesterday complaining of dark/bloody vomiting since this AM associated some epigastric discomfort. Patient is admitted for hematemesis. Plan: Admit to telemetry CT A/P results reviewed GI consult, f/u GI recommendation. Nephrology consult: HD today Stable H&H ([id number]/33.4, this morning 9.6/30.3) IV Fluids Protonix 40 mg q12hr c/w home medications Plan d/w Dr. Derek Gentile, [id number]
[2018-09-11] MEDS ORDERED: Influenza Vaccine 60 MCG/0.5 ML SYR (3 yr & up) IM ONE (09:00)
[2018-09-11] MEDS: Pantoprazole 40 mg EC Tab PO SCH ×2 (09:39→22:09)
--- NOTE | 2018-09-11 10:21 | CP.PCM.CON ---
History of Present Illness - History of Present Illness History of Present Illness: this patient whole is 47 years of age male known to me with end stage renal disease on maintenance hemodialysis 3 times a week Saturday. He presented to the emergency room with hematemesis as started yesterday accompany with some epigastric pain and some nausea about no chest pain no shortness of breath no difficulty breathing Patient known to have multitude of medical problem on multiple of admissions. PMHx: hypertension, CKD/ESRD (not on dialysis), DM2, hyperlipidemia, prior CVA, anemia Surg Hx: RLE partial foot amputation Soc Hx: not contributory Fam Hx: pt does not know Allergies: none Review of Systems - Constitutional Constitutional: Anorexia. absent: Chills - Cardiovascular Cardiovascular: absent: Acrocyanosis, Dyspnea - Respiratory Respiratory: absent: Cough, Hemoptysis - Gastrointestinal Gastrointestinal: Abdominal Pain, Belching, Coffee Ground Emesis - Genitourinary Genitourinary: Nocturia - Musculoskeletal Musculoskeletal: Muscle Weakness - Neurological Neurological: absent: Confusion, Disequilibrium, Focal Weakness - Psychiatric Psychiatric: As Per HPI. absent: Confusion - Endocrine Endocrine: Fatigue - Hematologic/Lymphatic Hematologic: absent: Easy Bleeding Past Patient History - Infectious Disease Hx of Infectious Diseases: None - Past Medical History & Family History Past Medical History?: Yes - Past Social History Smoking Status: Never Smoked - CARDIAC Hx Congestive Heart Failure: No Hx Hypercholesterolemia: Yes Hx Hypertension: Yes - PULMONARY Hx Chronic Obstructive Pulmonary Disease (COPD): No - NEUROLOGICAL Hx Neurological Disorder: Yes HX Cerebrovascular Accident: Yes - HEENT Hx HEENT Problems: No - RENAL Hx Chronic Kidney Disease: Yes (ESRD pending HD) - ENDOCRINE/METABOLIC Hx Hypothyroidism: No - HEMATOLOGICAL/ONCOLOGICAL Hx Anemia: Yes Hx Human Immunodeficiency Virus (HIV): No - INTEGUMENTARY Hx Dermatological Problems: No - MUSCULOSKELETAL/RHEUMATOLOGICAL Hx Arthritis: No Hx Falls: No Hx Rheumatoid Arthritis: No - GASTROINTESTINAL Hx Gastrointestinal Disorders: Yes Hx Nausea: Yes Hx Vomiting: Yes Other/Comment: Gastroparesis - GENITOURINARY/GYNECOLOGICAL Hx Genitourinary Disorders: No - PSYCHIATRIC Hx Psychophysiologic Disorder: No Hx Substance Use: No - SURGICAL HISTORY Hx Surgeries: Yes Hx Amputation: Yes (tma right foot) Other/Comment: left suboccipital craniotomy - ANESTHESIA Hx Anesthesia: Yes Hx Anesthesia Reactions: No Hx Malignant Hyperthermia: No Meds Allergies/Adverse Reactions: Allergies Allergy/AdvReac Type Severity Reaction Status Date / Time Penicillins Allergy RASH Verified 09/10/18 10:27 - Medications Medications: Current Medications Acetaminophen (Tylenol 325mg Tab) 650 mg PO Q6 PRN PRN Reason: Pain, moderate (4-7) Acetaminophen (Tylenol 325mg Tab) 650 mg PO Q6 PRN PRN Reason: Fever >100.4 F Calcitriol (Rocaltrol) 0.25 mcg PO MWF [facility] Clonidine HCl (Catapres) 0.3 mg PO Q8 [facility] Last Admin: 09/11/18 09:35 Dose: Not Given Folic Acid (Folic Acid) 1 mg PO DAILY [facility] Gabapentin (Neurontin) 100 mg PO Q8 [facility] Last Admin: 09/11/18 09:39 Dose: 100 mg Hydralazine HCl (Apresoline) 100 mg PO Q8H [facility] Last Admin: 09/11/18 06:06 Dose: 100 mg Dextrose/Sodium Chloride (Dextrose 5%/0.45% Ns 1000 Ml) 1,000 mls @ 125 mls/hr IV .Q8H [facility] Last Admin: 09/11/18 09:38 Dose: Not Given Losartan Potassium (Cozaar) 50 mg PO DAILY [facility] Metoprolol Tartrate (Lopressor) 50 mg PO DAILY [facility] Nifedipine (Procardia Xl) 30 mg PO DAILY [facility] Ondansetron HCl (Zofran Inj) 4 mg IVP Q6 PRN PRN Reason: Nausea/Vomiting Last Admin: 09/10/18 22:00 Dose: 4 mg Pantoprazole Sodium (Protonix Ec Tab) 40 mg PO Q12 [facility] Last Admin: 09/11/18 09:39 Dose: 40 mg Vitamin B Complex/Vit C/Folic Acid (Nephro-Elsa) 1 tab PO DAILY [facility] Physical Exam - Constitutional Appears: No Acute Distress - Eye Exam Eye Exam: Conjunctival injection - ENT Exam ENT Exam: Mucous Membranes Moist - Neck Exam Neck exam: Negative for: Lymphadenopathy - Respiratory Exam Respiratory Exam: NORMAL BREATHING PATTERN. absent: Rales - Cardiovascular Exam Cardiovascular Exam: REGULAR RHYTHM. absent: Gallop, JVD, Rubs - GI/Abdominal Exam GI & Abdominal Exam: Normal Bowel Sounds. absent: Guarding - Extremities Exam Extremities exam: Negative for: calf tenderness - Back Exam Back exam: absent: CVA tenderness (L), CVA tenderness (R) - Neurological Exam Neurological exam: Alert - Psychiatric Exam Psychiatric exam: Normal Affect Results - Vital Signs Recent Vital Signs: Last Vital Signs Temp 98.3 F 09/11/18 08:13 Pulse 68 09/11/18 09:35 Resp 18 09/11/18 08:13 BP 161/93 H 09/11/18 09:35 Pulse Ox 97 09/11/18 08:13 - Labs Result Diagrams: 09/11/18 05:19 09/11/18 05:19 Labs: Laboratory Results - last 24 hr 09/10/18 09/10/18 09/10/18 10:26 11:53 11:53 WBC 16.1 H D RBC 4.04 L Hgb 10.9 L D Hct 33.4 L MCV 82.5 MCH 27.1 MCHC 32.8 L RDW 18.1 H Plt Count 414 H D MPV 8.4 Neut % (Auto) 90.2 H Lymph % (Auto) 6.3 L [place] % (Auto) 3.1 Eos % (Auto) 0.1 Baso % (Auto) 0.3 Neut # (Auto) 14.5 H Lymph # (Auto) 1.0 [place] # (Auto) 0.5 Eos # (Auto) 0.0 Baso # (Auto) 0.1 Neutrophils % (Manual) 93 H Lymphocytes % (Manual) 4 L Monocytes % (Manual) 3 Platelet Estimate Slightly increased H Hypochromasia (manual) Slight Anisocytosis (manual) Slight PT INR APTT Sodium 145 Potassium 4.5 Chloride 99 Carbon Dioxide 24 Anion Gap 27 H BUN 37 H Creatinine 5.0 H Est GFR ( Amer) 15 Est GFR (Non-Af Amer) 13 POC Glucose (mg/dL) 312 H Random Glucose 309 H Calcium 10.9 H Total Bilirubin 0.9 AST 43 ALT 20 L Alkaline Phosphatase 155 H D Ammonia Total Protein 10.5 H Albumin 4.9 Globulin 5.6 H Albumin/Globulin Ratio 0.9 L Lipase 38 Blood Type Antibody Screen BBK History Checked 09/10/18 09/10/18 09/10/18 11:53 11:59 13:54 WBC RBC Hgb Hct MCV MCH MCHC RDW Plt Count MPV Neut % (Auto) Lymph % (Auto) [place] % (Auto) Eos % (Auto) Baso % (Auto) Neut # (Auto) Lymph # (Auto) [place] # (Auto) Eos # (Auto) Baso # (Auto) Neutrophils % (Manual) Lymphocytes % (Manual) Monocytes % (Manual) Platelet Estimate Hypochromasia (manual) Anisocytosis (manual) PT 13.3 H INR 1.2 APTT 38.8 H Sodium Potassium Chloride Carbon Dioxide Anion Gap BUN Creatinine Est GFR ( Amer) Est GFR (Non-Af Amer) POC Glucose (mg/dL) Random Glucose Calcium Total Bilirubin AST ALT Alkaline Phosphatase Ammonia < 9 L Total Protein Albumin Globulin Albumin/Globulin Ratio Lipase Blood Type O NEGATIVE Antibody Screen Negative BBK History Checked Patient has bt 09/10/18 09/10/18 09/11/18 17:05 21:35 05:19 WBC 15.7 H RBC 3.60 L Hgb 9.6 L Hct 30.3 L MCV 84.2 MCH 26.7 L MCHC 31.7 L RDW 17.9 H Plt Count 335 MPV 7.7 Neut % (Auto) 75.2 H Lymph % (Auto) 16.5 L [place] % (Auto) 7.6 Eos % (Auto) 0.1 Baso % (Auto) 0.6 Neut # (Auto) 11.8 H Lymph # (Auto) 2.6 [place] # (Auto) 1.2 H Eos # (Auto) 0.0 Baso # (Auto) 0.1 Neutrophils % (Manual) Lymphocytes % (Manual) Monocytes % (Manual) Platelet Estimate Hypochromasia (manual) Anisocytosis (manual) PT INR APTT Sodium Potassium Chloride Carbon Dioxide Anion Gap BUN Creatinine Est GFR ( Amer) Est GFR (Non-Af Amer) POC Glucose (mg/dL) 255 H 219 H Random Glucose Calcium Total Bilirubin AST ALT Alkaline Phosphatase Ammonia Total Protein Albumin Globulin Albumin/Globulin Ratio Lipase Blood Type Antibody Screen BBK History Checked 09/11/18 09/11/18 05:19 05:45 WBC RBC Hgb Hct MCV MCH MCHC RDW Plt Count MPV Neut % (Auto) Lymph % (Auto) [place] % (Auto) Eos % (Auto) Baso % (Auto) Neut # (Auto) Lymph # (Auto) [place] # (Auto) Eos # (Auto) Baso # (Auto) Neutrophils % (Manual) Lymphocytes % (Manual) Monocytes % (Manual) Platelet Estimate Hypochromasia (manual) Anisocytosis (manual) PT INR APTT Sodium 143 Potassium 4.4 Chloride 101 Carbon Dioxide 28 Anion Gap 18 BUN 50 H Creatinine 6.3 H Est GFR ( Amer) 12 Est GFR (Non-Af Amer) 10 POC Glucose (mg/dL) 168 H Random Glucose 171 H Calcium 9.7 Total Bilirubin 0.4 AST 32 ALT 28 Alkaline Phosphatase 109 Ammonia Total Protein 8.3 H Albumin 4.1 Globulin 4.2 H Albumin/Globulin Ratio 1.0 Lipase Blood Type Antibody Screen BBK History Checked Assessment & Plan (1) Chronic kidney disease with end stage renal failure on dialysis Assessment and Plan: end stage renal disease admitted with hematemesis. Patient scheduled for hemodialysis shortly and his outpatient 3 times a week. Hypertension Diabetes mellitus History of hyperphosphatemia History of secondary hyperparathyroidism History of anemia History of multiple surgery on the foot History of CVA The plan Scheduled for hemodialysis No hip and Check phosphorus and PTH Consent was taken Order was given Status: Acute (2) Abdominal pain Status: Acute
[2018-09-11] MEDS: Multivitamin Vitamin B Complex (Nephro-Vite) Tab PO SCH (12:55)
[2018-09-11] MEDS: NIFEdipine 30 mg ER Tab PO SCH (12:56)
[2018-09-11] MEDS: Insulin Lispro (humaLOG) 100 Units/ml Inj SC SCH ×2 (17:44→22:07)
--- NOTE | 2018-09-12 07:44 | CON ---
DATE: 09/10/2018 REFERRING PHYSICIAN: Liu Reed MD REASON FOR CONSULTATION: Nausea, vomiting, and gastroparesis. HISTORY OF PRESENT ILLNESS: This is a pleasant 47-year-old man with a history of CKD; end-stage renal, on dialysis; diabetes; hypertension; gastroparesis; hyperlipemia; prior CVA; anemia. He has been complaining of coffee-ground emesis which he has had on and off for multiple months dialysis. From a GI standpoint, he is actually doing well, tolerating liquid diet, in no apparent distress. PAST MEDICAL HISTORY: As above. PAST SURGICAL HISTORY: As above. MEDICATIONS: Have been reviewed. REVIEW OF SYSTEMS: All other systems have been reviewed and negative apart from the HPI. PHYSICAL EXAMINATION VITAL SIGNS: Here in the hospital grossly unremarkable. GENERAL: A pleasant elderly appearing male, lying in bed comfortably, in no apparent distress. HEENT: Head is normocephalic and atraumatic. Eyes, pupils are equally reactive to light bilaterally. No conjunctival pallor or icterus. NECK: Supple. Normal range of motion. No lymphadenopathy appreciated. LUNGS: Coarse breath sounds bilaterally. HEART: S1 and S2. Regular rate and rhythm. No murmurs appreciated. ABDOMEN: Soft and nontender. Bowel sounds present. No rebound. No guarding. RECTAL: Deferred. NEUROLOGIC: A and O x3. LABORATORY DATA: All labs and radiology have been reviewed. WBC is 16.1, hemoglobin 10.9, hematocrit 33.4, platelet count 414. INR is 1.2. BUN is 37, creatinine is 5. ASSESSMENT AND PLAN: This is a 47-year-old man with gastroparesis and coffee-ground emesis. From a gastroenterology standpoint, this is all from previous esophagitis. Recommend proton pump inhibitor twice a day. No endoscopy at this point, but would recommend as an outpatient. Dialysis as per Renal. Thank you for the consult. Jung Jc MD/ PhD cc: Liu Reed MD
[2018-09-12] MEDS: Insulin Lispro (humaLOG) 100 Units/ml Inj SC SCH ×3 (08:42→17:02)
[2018-09-12] MEDS: Multivitamin Vitamin B Complex (Nephro-Vite) Tab PO SCH (08:43)
[2018-09-12] MEDS: NIFEdipine 30 mg ER Tab PO SCH (08:44)
[2018-09-12] MEDS: Pantoprazole 40 mg EC Tab PO SCH (08:44)
--- NOTE | 2018-09-12 12:01 | CP.PCM.PN ---
Subjective - Date & Time of Evaluation Date of Evaluation: 09/12/18 Time of Evaluation: 12:01 - Subjective Subjective: patient awake and conscious feeling good no nausea no vomiting Vital signs stable no chest pain Objective - Vital Signs/Intake and Output Vital Signs (last 24 hours): Temp Pulse Resp BP Pulse Ox 98.4 F 82 20 165/95 H 96 09/12/18 09:26 09/12/18 09:26 09/12/18 09:26 09/12/18 09:26 09/12/18 09:26 - Medications Medications: Current Medications Acetaminophen (Tylenol 325mg Tab) 650 mg PO Q6 PRN PRN Reason: Pain, moderate (4-7) Acetaminophen (Tylenol 325mg Tab) 650 mg PO Q6 PRN PRN Reason: Fever >100.4 F Calcitriol (Rocaltrol) 0.25 mcg PO MWF [facility] Last Admin: 09/12/18 08:44 Dose: 0.25 mcg Clonidine HCl (Catapres) 0.3 mg PO Q8 [facility] Last Admin: 09/12/18 08:40 Dose: 0.3 mg Epoetin Mitchell (Procrit) 6,000 unit IV TTS [facility] Folic Acid (Folic Acid) 1 mg PO DAILY [facility] Last Admin: 09/12/18 08:41 Dose: 1 mg Gabapentin (Neurontin) 100 mg PO Q8 [facility] Last Admin: 09/12/18 08:44 Dose: 100 mg Hydralazine HCl (Apresoline) 100 mg PO Q8H [facility] Last Admin: 09/12/18 05:37 Dose: 100 mg Insulin Human Lispro (Humalog) 0 units [facility]; Protocol Last Admin: 09/12/18 08:42 Dose: 2 units Losartan Potassium (Cozaar) 50 mg PO DAILY [facility] Last Admin: 09/12/18 08:41 Dose: 50 mg Metoprolol Tartrate (Lopressor) 50 mg PO DAILY [facility] Last Admin: 09/12/18 08:47 Dose: 50 mg Nifedipine (Procardia Xl) 30 mg PO DAILY [facility] Last Admin: 09/12/18 08:44 Dose: 30 mg Ondansetron HCl (Zofran Inj) 4 mg IVP Q6 PRN PRN Reason: Nausea/Vomiting Last Admin: 09/10/18 22:00 Dose: 4 mg Pantoprazole Sodium (Protonix Ec Tab) 40 mg PO Q12 [facility] Last Admin: 09/12/18 08:44 Dose: 40 mg Vitamin B Complex/Vit C/Folic Acid (Nephro-Elsa) 1 tab PO DAILY [facility] Last Admin: 09/12/18 08:43 Dose: 1 tab - Labs Labs: 09/11/18 05:19 09/11/18 05:19 PT 13.3 Seconds (9.8-13.1) H 09/10/18 11:53 INR 1.2 09/10/18 11:53 APTT 38.8 Seconds (25.6-37.1) H 09/10/18 11:53 - Eye Exam Eye Exam: Conjunctival injection - ENT Exam ENT Exam: Mucous Membranes Moist - Neck Exam Neck Exam: absent: Lymphadenopathy - Respiratory Exam Respiratory Exam: NORMAL BREATHING PATTERN. absent: Chest Wall Tenderness - Cardiovascular Exam Cardiovascular Exam: REGULAR RHYTHM. absent: Gallop, JVD, Rubs - GI/Abdominal Exam GI & Abdominal Exam: Soft, Normal Bowel Sounds - Extremities Exam Extremities Exam: absent: Calf Tenderness - Back Exam Back Exam: absent: CVA tenderness (L), CVA tenderness (R) - Neurological Exam Neurological Exam: Alert - Psychiatric Exam Psychiatric exam: Normal Affect - Skin Skin Exam: absent: Cyanosis Assessment and Plan (1) Chronic kidney disease with end stage renal failure on dialysis Assessment & Plan: end stage renal disease admitted with hematemesis. Patient scheduled for hemodialysis shortly and his outpatient 3 times a week. Hypertension Diabetes mellitus hyperphosphatemia secondary hyperparathyroidism anemia History of multiple surgery on the foot History of CVA the plan Patient to have short hemodialysis today because he is going home and he will go to his regular schedule as outpatient Saturday. Leukocytosis noted as per primary care team Status: Acute (2) Abdominal pain Status: Acute
[2018-09-12 12:09] LABS: HEMOGLOBIN 10.3 g/dL (12.0-18.0); MEAN CELL VOLUME 83.6 fl (80.0-94.0); MEAN CORPUSCULAR HEMOGLOBIN 26.8 pg (27.0-31.0); RBC 3.86 Mil/uL (4.40-5.90); RED CELL DISTRIBUTION WIDTH 18.2 % (11.5-14.5); WHITE BLOOD COUNT 15.9 K/uL (4.8-10.8)
--- NOTE | 2018-09-12 13:04 | CP.PCM.DIS ---
Provider - Provider Date of Admission: 09/10/18 13:30 Attending physician: Liu Reed MD Time Spent in preparation of Discharge (in minutes): 32 Diagnosis - Discharge Diagnosis (1) Nausea & vomiting Status: Resolved (2) Leukocytosis Status: Acute (3) Chronic kidney disease with end stage renal failure on dialysis Status: Chronic (4) HTN (hypertension) Status: Chronic (5) Diabetes mellitus type 2 in obese Status: Chronic Hospital Course - Lab Results Lab Results: Most Recent Lab Values WBC 15.9 K/uL (4.8-10.8) H 09/12/18 11:50 RBC 3.86 Mil/uL (4.40-5.90) L 09/12/18 11:50 Hgb 10.3 g/dL (12.0-18.0) L 09/12/18 11:50 Hct 32.3 % (35.0-51.0) L 09/12/18 11:50 MCV 83.6 fl (80.0-94.0) 09/12/18 11:50 MCH 26.8 pg (27.0-31.0) L 09/12/18 11:50 MCHC 32.0 g/dL (33.0-37.0) L 09/12/18 11:50 RDW 18.2 % (11.5-14.5) H 09/12/18 11:50 Plt Count 302 K/uL (130-400) 09/12/18 11:50 MPV 7.7 fl (7.2-11.7) 09/11/18 05:19 Neut % (Auto) 75.2 % (50.0-75.0) H 09/11/18 05:19 Lymph % (Auto) 16.5 % (20.0-40.0) L 09/11/18 05:19 [place] % (Auto) 7.6 % (0.0-10.0) 09/11/18 05:19 Eos % (Auto) 0.1 % (0.0-4.0) 09/11/18 05:19 Baso % (Auto) 0.6 % (0.0-2.0) 09/11/18 05:19 Neut # (Auto) 11.8 K/uL (1.8-7.0) H 09/11/18 05:19 Lymph # (Auto) 2.6 K/uL (1.0-4.3) 09/11/18 05:19 [place] # (Auto) 1.2 K/uL (0.0-0.8) H 09/11/18 05:19 Eos # (Auto) 0.0 K/uL (0.0-0.7) 09/11/18 05:19 Baso # (Auto) 0.1 K/uL (0.0-0.2) 09/11/18 05:19 Neutrophils % (Manual) 93 % (42-75) H 09/10/18 11:53 Lymphocytes % (Manual) 4 % (20-50) L 09/10/18 11:53 Monocytes % (Manual) 3 % (0-10) 09/10/18 11:53 Platelet Estimate Slightly increased (NORMAL) H 09/10/18 11:53 Hypochromasia (manual) Slight 09/10/18 11:53 Anisocytosis (manual) Slight 09/10/18 11:53 PT 13.3 Seconds (9.8-13.1) H 09/10/18 11:53 INR 1.2 09/10/18 11:53 APTT 38.8 Seconds (25.6-37.1) H 09/10/18 11:53 Sodium 143 mmol/l (132-148) 09/11/18 05:19 Potassium 4.4 MMOL/L (3.6-5.0) 09/11/18 05:19 Chloride 101 mmol/L (98-107) 09/11/18 05:19 Carbon Dioxide 28 mmol/L (22-30) 09/11/18 05:19 Anion Gap 18 (10-20) 09/11/18 05:19 BUN 50 mg/dl (9-20) H 09/11/18 05:19 Creatinine 6.3 mg/dl (0.8-1.5) H 09/11/18 05:19 Est GFR ( Amer) 12 09/11/18 05:19 Est GFR (Non-Af Amer) 10 09/11/18 05:19 POC Glucose (mg/dL) 298 mg/dL (65-110) H 09/12/18 11:28 Random Glucose 171 mg/dL (75-110) H 09/11/18 05:19 Calcium 9.7 mg/dL (8.4-10.2) 09/11/18 05:19 Total Bilirubin 0.4 mg/dl (0.2-1.3) 09/11/18 05:19 AST 32 U/L (17-59) 09/11/18 05:19 ALT 28 U/L (21-72) 09/11/18 05:19 Alkaline Phosphatase 109 U/L (38-126) 09/11/18 05:19 Ammonia < 9 umo/L (16-60) L 09/10/18 11:59 Total Protein 8.3 G/DL (6.3-8.2) H 09/11/18 05:19 Albumin 4.1 g/dL (3.5-5.0) 09/11/18 05:19 Globulin 4.2 gm/dL (2.2-3.9) H 09/11/18 05:19 Albumin/Globulin Ratio 1.0 (1.0-2.1) 09/11/18 05:19 Lipase 38 U/L (23-300) 09/10/18 11:53 Blood Type O NEGATIVE 09/10/18 13:54 Antibody Screen Negative 09/10/18 13:54 BBK History Checked Patient has bt 09/10/18 13:54 - Hospital Course Hospital Course: 47 year old male with a PMHx of CKD/ESRD on HD (FWF) DM2, hypertension, hyperlipidemia, prior CVA, anemia, who presented to ED on 09/10/18 with complaining of dark/bloody vomiting since this AM associated some epigastric discomfort. Patient reports he had multiple episodes of NBNB emesis yesterday and vomits turn dark this morning. Patient does not use NSAIDS, does not take aspirin or blood thinners. Denies bloody stool, chest pain, and shortness of breath, diarrhea, constipation, urinary symptoms, fever, and chills. Patient was admitted for hematemesis. Edi Programmer Analyst Dr. Jc and complaints coordinator Dr. Rodríguez were consulted. Patients nausea, vomiting and abdominal pain resolved after the admission. H&H remain stable. GI recommended PPI BID and outpatient EGD. Patient has wbc of 15.9 but denies any symptoms. Patient is hemodynamically stable to discharge home Discharge Exam - Head Exam Head Exam: NORMAL INSPECTION - Eye Exam Eye Exam: Normal appearance - ENT Exam ENT Exam: Mucous Membranes Moist - Respiratory Exam Respiratory Exam: Clear to PA & Lateral, NORMAL BREATHING PATTERN. absent: Wheezes, Respiratory Distress - Cardiovascular Exam Cardiovascular Exam: REGULAR RHYTHM, +S1, +S2 - GI/Abdominal Exam GI & Abdominal Exam: Normal Bowel Sounds, Soft. absent: Guarding, Rebound, Rigid, Tenderness - Neurological Exam Neurological exam: Alert, Oriented x3 - Psychiatric Exam Psychiatric exam: Normal Affect, Normal Mood - Skin Skin Exam: Normal Color, Warm Discharge Plan - Discharge Medications Prescriptions: Pantoprazole [Protonix EC Tab] 40 mg PO Q12 #14 ect - Follow Up Plan Condition: FAIR Disposition: HOME/ ROUTINE Additional Instructions: Follow up with PMD in 2-3 days f/u with senior international tax manager for endoscopy and nephrolgist for dialysis
[2018-09-12 16:21] VITALS: BP 101/58; PULSE 69; RESP 18; TEMP 97.6
[2018-09-12 16:52] LABS: HEPATITIS B SURFACE AG Negative (NEGATIVE)
[2018-09-12 16:57] LABS: HEPATITIS B CORE AB NEGATIVE (NEGATIVE)
[2018-09-13] MEDS ORDERED: Epoetin Alfa 20000 UNIT/ML Inj IV SCH (09:00)
[2018-09-15 14:11] VITALS: O2SAT 100
== END 2018-09-12 18:55 | disposition home or self-care (01) | DRG 377 ==
LOC: H.ER 10:10 → H.ERHOLD 13:30 → H.TEL 16:59
PROVIDERS: ADMIT Family Medicine; ATTEND Family Medicine
PROC: 5A1D70Z Performance of Urinary Filtration, Intermittent, Less than 6 Hours Per Day (ICD-10-PCS; principal; 2018-09-11)
PROC: 3E02340 Introduction of Influenza Vaccine into Muscle, Percutaneous Approach (ICD-10-PCS; 2018-09-11)
PROC: 5A1D70Z Performance of Urinary Filtration, Intermittent, Less than 6 Hours Per Day (ICD-10-PCS; 2018-09-12)
DX: K92.0 Hematemesis (principal); N18.6 End stage renal disease; I12.0 Hypertensive chronic kidney disease with stage 5 chronic kidney disease or end stage renal disease; N25.81 Secondary hyperparathyroidism of renal origin; Z68.41 Body mass index [BMI] 40.0-44.9, adult; K31.84 Gastroparesis; E11.22 Type 2 diabetes mellitus with diabetic chronic kidney disease; E11.43 Type 2 diabetes mellitus with diabetic autonomic (poly)neuropathy; D72.828 Other elevated white blood cell count; E66.9 Obesity, unspecified; E83.39 Other disorders of phosphorus metabolism; E78.5 Hyperlipidemia, unspecified; E78.00 Pure hypercholesterolemia, unspecified; D64.9 Anemia, unspecified; K20.9 Esophagitis, unspecified; Z99.2 Dependence on renal dialysis; Z23 Encounter for immunization; Z86.73 Personal history of transient ischemic attack (TIA), and cerebral infarction without residual deficits; Z88.0 Allergy status to penicillin

== ENCOUNTER 2018-09-14 11:41 | Inpatient (IN) | payer OTHER ==
[2018-09-14 11:42] VITALS: BMI 40.4
[2018-09-14] MEDS ORDERED: Sodium Chloride 0.9% 1,000 ML IV STA (12:04)
[2018-09-14 12:25] LABS: VENOUS BLOOD GAS PCO2 36 mmHg (40-60); VENOUS BLOOD GAS PO2 46 mm/Hg (30-55); VENOUS BLOOD PH 7.49 (7.32-7.43)
[2018-09-14 12:31] LABS: BASO # 0.1 K/uL (0.0-0.2); BASO % 0.6 % (0.0-2.0); EOS % 0.2 % (0.0-4.0); HEMOGLOBIN 10.6 g/dL (12.0-18.0); LYMPH % 5.7 % (20.0-40.0); MEAN CELL VOLUME 82.9 fl (80.0-94.0); MEAN CORPUSCULAR HEMOGLOBIN 26.4 pg (27.0-31.0); MEAN CORPUSCULAR HGB CONC 31.8 g/dL (33.0-37.0); MEAN PLATELET VOLUME 8.1 fl (7.2-11.7); MONO # 0.6 K/uL (0.0-0.8); MONO % 3.6 % (0.0-10.0); NEUT # 15.3 K/uL (1.8-7.0); NEUT % 89.9 % (50.0-75.0); PLATELET COUNT 211 K/uL (130-400); RBC 4.01 Mil/uL (4.40-5.90); RED CELL DISTRIBUTION WIDTH 18.2 % (11.5-14.5)
[2018-09-14 13:14] LABS: ALBUMIN 4.3 g/dL (3.5-5.0); CALCIUM 9.5 mg/dL (8.4-10.2); TROPONIN I 0.026 ng/mL (0.00-0.120)
--- NOTE | 2018-09-14 13:47 | ED PDOC ---
HPI: Abdomen Time Seen by Provider: 09/14/18 12:03 Chief Complaint (Nursing): GI Problem Chief Complaint (Provider): Vomiting, abdominal pain History Per: Patient History/Exam Limitations: no limitations Onset/Duration Of Symptoms: Hrs (today) Additional Complaint(s): Santiago Hussein, a 47 year old patient with past medial history as per chart, presents to the emergency department with severe epigastric pain and vomiting. Patient is on dialysis and was discharged from [facility] 4 days ago after being treated for vomiting. He had sudden onset of severe epigastric pain and vomiting this morning. Patient's next dialysis is scheduled for tomorrow. Patient states the vomiting has gotten more frequent and forceful with more pain since this morning. Vomit is blood tinged with no bile. Patient states his whole body aches but denies chest pain, shortness of breath or any sick contacts. No further medical complaints. Past Medical History Reviewed: Historical Data, Nursing Documentation, Vital Signs Vital Signs: Last Vital Signs Temp 98.4 F 09/14/18 11:43 Pulse 128 H 09/14/18 11:43 Resp 20 09/14/18 11:43 BP 156/101 H 09/14/18 11:43 Pulse Ox 97 09/14/18 11:43 - Medical History PMH: Anemia, CVA, Diabetes (type II), HTN, Hypercholesterolemia, Hyperlipidemia, End Stage Renal Disease, Chronic Kidney Disease Denies: Arthritis, CHF, COPD, HIV, Hypothyroidism, Rheumatoid Arthritis - Family History Family History: States: Unknown Family Hx - Immunization History Hx Tetanus Toxoid Vaccination: No Hx Influenza Vaccination: No Hx Pneumococcal Vaccination: No - Home Medications Home Medications: Ambulatory Orders Medication Instructions Recorded RX: Folic Acid 1 mg PO DAILY 12/01/16 RX: Allopurinol [Zyloprim] 100 mg PO DAILY tab 07/19/17 RX: Calcitriol 0.25 cap PO MWF 08/05/17 RX: Gabapentin [Neurontin] 100 mg PO Q8 12/13/17 RX: Nifedipine [Nifedipine ER] 30 mg PO DAILY 12/13/17 RX: cloNIDine [Catapres] 0.3 mg PO Q8 12/13/17 RX: Vitamin B Complex/Vit C/Folic 1 tab PO DAILY #30 tab 06/19/18 [Nephro-Elsa] RX: Ergocalciferol (Vitamin D2) 50,000 unit PO QWK 10/10/18 [Vitamin D2] RX: Ferrous Sulfate 325 mg PO Q8 09/10/18 RX: GlipiZIDE [Glucotrol] 10 mg PO BID 09/10/18 RX: Hydralazine HCl 100 mg PO Q8 09/10/18 RX: Lidocaine 1 patch TOP DAILY 09/10/18 RX: Losartan [Cozaar] 50 mg PO DAILY 09/10/18 RX: Metoprolol Tartrate [Lopressor] 50 mg PO DAILY 09/10/18 RX: SITagliptin [Januvia] 25 mg PO BID 09/10/18 Pantoprazole [Protonix] 40 mg PO DAILY #30 ect 09/16/18 - Allergies Allergies/Adverse Reactions: Allergies Allergy/AdvReac Type Severity Reaction Status Date / Time Penicillins Allergy RASH Verified 09/10/18 10:27 Review of Systems ROS Statement: Except As Marked, All Systems Reviewed And Found Negative Constitutional: Positive for: Other (generalized body aches) Cardiovascular: Negative for: Chest Pain Respiratory: Negative for: Shortness of Breath Gastrointestinal: Positive for: Vomiting (blood tinged, no bile), Abdominal Pain Physical Exam - Reviewed Nursing Documentation Reviewed: Yes Vital Signs Reviewed: Yes - Physical Exam Appears: Positive for: Well, Non-toxic, No Acute Distress Head Exam: Positive for: ATRAUMATIC, NORMAL INSPECTION, NORMOCEPHALIC Skin: Positive for: Diaphoresis Eye Exam: Positive for: EOMI, Normal appearance, PERRL ENT: Positive for: Normal ENT Inspection Neck: Positive for: Normal, Painless ROM Cardiovascular/Chest: Positive for: Regular Rate, Rhythm Respiratory: Negative for: Crackles, Wheezing Gastrointestinal/Abdominal: Positive for: Tenderness (epigastric), Guarding Back: Positive for: Normal Inspection Extremity: Positive for: Other (right lower extremity amputation) Neurologic/Psych: Positive for: Alert, Oriented Comments: retching on side in position on exam - Laboratory Results Result Diagrams: 09/16/18 04:45 09/16/18 04:45 - ECG O2 Sat by Pulse Oximetry: 97 (RA) Pulse Ox Interpretation: Normal Medical Decision Making Medical Decision Making: Time: 12:03 Workup: upper GI bleed, gastroenteritis, Zofran pantoprazole ekg, reassess, most likely admission pending results and stable patient Initial Plan: --Type and Screen --Venous blood gas --EKG --BNP --CMP --Lipase --Magnesium --Phosphorous --Potassium --Troponin --CBC w/ differential --CXR portable --Sodium chloride 1000 ml IV --Protonix Inj 40 mg --Zofran 4 mg IVP --Urinalysis -nurses unable to get peripheral line, left EJ peripheral line placed by provider, IV starting low until fluid overload can be ruled out Time: 13:57 -admission to Dr. Lake who agrees with treatment plan, -patient with improved vomiting and pain, states nausea and pain still present, labs showed elevated WBC otherwise within normal limits except hyperglycemia and insulin Scribe Attestation: Documented by Robyn Paulino, acting as a scribe for Coty Sandoval MD. Provider Scribe Attestation: All medical record entries made by the Scribe were at my direction and personally dictated by me. I have reviewed the chart and agree that the record accurately reflects my personal performance of the history, physical exam, medical decision making, and the department course for this patient. I have also personally directed, reviewed, and agree with the discharge instructions and disposition. Disposition - Clinical Impression Clinical Impression: Gastritis, Peptic ulcer, CKD (chronic kidney disease) stage 3, GFR 30-59 ml/min - Patient ED Disposition Is Patient to be Admitted: Yes - Disposition Disposition Time: 13:57 Condition: IMPROVED
[2018-09-14] MEDS ORDERED: Insulin Regular 100 units/ml SC STA (13:48)
[2018-09-14 14:17] LABS: ANISOCYTOSIS MODERATE; BANDS 1 % (0-2); BASOPHIL 1 % (0-2); EOSINOPHIL 1 % (0-7); LYMPHOCYTE 9 % (20-50); MONOCYTE 6 % (0-10); NEUTROPHIL 82 % (42-75); PLATELET ESTIMATE NORMAL (NORMAL); POIKILOCYTOSIS SLIGHT; TOTAL CELLS COUNTED 100
[2018-09-14 14:18] LABS: HYPERSEGMENTATION PRESENT; HYPOCHROMIC SLIGHT; MICROCYTOSIS MODERATE
[2018-09-14 15:11] LABS: URINE BILIRUBIN NEGATIVE (NEGATIVE); URINE BLOOD NEGATIVE (NEGATIVE); URINE CLARITY CLEAR (Clear); URINE COLOR STRAW (YELLOW); URINE GLUCOSE (UA) >=500 mg/dL (Normal); URINE LEUKOCYTE ESTERASE NEG Leu/uL (Negative); URINE PROTEIN >=500 mg/dL (NEGATIVE); URINE UROBILINOGEN 0.2-1.0 mg/dL (0.2-1.0)
[2018-09-14] MEDS ORDERED: Ergocalciferol 50,000 Intl Units Cap PO SCH (17:45)
--- NOTE | 2018-09-14 17:53 | RAD ---
Date of service: 09/14/2018 HISTORY: possible admission COMPARISON: Comparison is made with 09/10/2018 FINDINGS: LUNGS: Mild pulmonary vascular congestion. PLEURA: No significant pleural effusion identified, no pneumothorax apparent. CARDIOVASCULAR: Possible mild cardiomegaly. OSSEOUS STRUCTURES: No significant abnormalities. VISUALIZED UPPER ABDOMEN: Normal. OTHER FINDINGS: Left-sided central venous catheter is seen in place. IMPRESSION: Mild pulmonary vascular congestion.
[2018-09-14] MEDS: Pantoprazole 40 mg EC Tab PO SCH (21:35)
--- NOTE | 2018-09-14 23:09 | CARD ---
APPROVED REPORT Date of service: 09/14/2018 EKG Measurement Heart Loit386AENE [id number] <Conclusion> Sinus tachycardia Left axis deviation Borderline ECG
[2018-09-15] MEDS ORDERED: Influenza Vaccine (5 YR UP)/PF 60 MCG/0.5 ML SYR IM ONE (06:30)
[2018-09-15 06:57] LABS: BASO # 0.1 K/uL (0.0-0.2); BASO % 0.9 % (0.0-2.0); EOS # 0.2 K/uL (0.0-0.7); EOS % 1.6 % (0.0-4.0); HEMOGLOBIN 9.3 g/dL (12.0-18.0); LYMPH # 2.4 K/uL (1.0-4.3); LYMPH % 19.1 % (20.0-40.0); MEAN CORPUSCULAR HEMOGLOBIN 26.2 pg (27.0-31.0); MEAN CORPUSCULAR HGB CONC 31.5 g/dL (33.0-37.0); MEAN PLATELET VOLUME 7.9 fl (7.2-11.7); MONO # 0.7 K/uL (0.0-0.8); MONO % 5.4 % (0.0-10.0); NEUT # 9.3 K/uL (1.8-7.0); RBC 3.54 Mil/uL (4.40-5.90); WHITE BLOOD COUNT 12.8 K/uL (4.8-10.8)
[2018-09-15 07:15] LABS: ALBUMIN 3.6 g/dL (3.5-5.0); CALCIUM 9.2 mg/dL (8.4-10.2)
[2018-09-15] MEDS ORDERED: Epoetin Alfa 20000 UNIT/ML Inj IV SCH (09:00)
[2018-09-15] MEDS ORDERED: Lidocaine 5% Patch TD SCH (09:00)
[2018-09-15] MEDS: Multivitamin Vitamin B Complex (Nephro-Vite) Tab PO SCH (09:42)
[2018-09-15] MEDS: Pantoprazole 40 mg EC Tab PO SCH ×2 (09:42→21:35)
[2018-09-15] MEDS: NIFEdipine 30 mg ER Tab PO SCH (09:42)
[2018-09-15] MEDS: Ciprofloxacin 200mg/100ml D5W 100 ML IVPB SCH ×2 (09:44→21:35)
--- NOTE | 2018-09-15 10:07 | CP.PCM.CON ---
History of Present Illness - History of Present Illness History of Present Illness: this patient whole is 47 years of age male who was just discharged 2 days ago came back to the emergency room complaining of abdominal pain and epigastric pain. And some nauseous feeling. Patient was admitted with similar episode coupl e days ago and his symptom has subsided. Patient known to have multitude of multiple medical problem including but not limited to Patient known to have multitude of medical problem on multiple of admissions. PMHx: hypertension, CKD/ESRD (not on dialysis), DM2, hyperlipidemia, prior CVA, anemia Surg Hx: RLE partial foot amputation Soc Hx: not contributory Fam Hx: pt does not know Allergies: none Review of Systems - Constitutional Constitutional: Anorexia. absent: Chills - Cardiovascular Cardiovascular: absent: Chest Pain, Dyspnea, Edema, Pedal Edema - Respiratory Respiratory: absent: Cough - Gastrointestinal Gastrointestinal: Abdominal Pain, Bloating. absent: Coffee Ground Emesis, Jolene rrhea - Genitourinary Genitourinary: Nocturia - Musculoskeletal Musculoskeletal: Muscle Weakness - Neurological Neurological: As Per HPI. absent: Abnormal Movements, Confusion, Focal Weakness - Psychiatric Psychiatric: absent: Auditory Hallucinations, Irritability - Endocrine Endocrine: Fatigue - Hematologic/Lymphatic Hematologic: absent: Easy Bleeding Past Patient History - Infectious Disease Hx of Infectious Diseases: None - Past Medical History & Family History Past Medical History?: Yes - Past Social History Smoking Status: Never Smoked - CARDIAC Hx Congestive Heart Failure: No Hx Hypercholesterolemia: Yes Hx Hypertension: Yes - PULMONARY Hx Chronic Obstructive Pulmonary Disease (COPD): No - NEUROLOGICAL Hx Neurological Disorder: Yes - HEENT Hx HEENT Problems: No - RENAL Hx Chronic Kidney Disease: Yes - ENDOCRINE/METABOLIC Hx Hypothyroidism: No - HEMATOLOGICAL/ONCOLOGICAL Hx AIDS: No Hx Anemia: Yes Hx Human Immunodeficiency Virus (HIV): No - INTEGUMENTARY Hx Dermatological Problems: No - MUSCULOSKELETAL/RHEUMATOLOGICAL Hx Arthritis: No Hx Falls: No Hx Rheumatoid Arthritis: No - GASTROINTESTINAL Hx Gastrointestinal Disorders: Yes Hx Nausea: Yes Hx Vomiting: Yes - GENITOURINARY/GYNECOLOGICAL Hx Genitourinary Disorders: No - PSYCHIATRIC Hx Psychophysiologic Disorder: No Hx Substance Use: No - SURGICAL HISTORY Hx Surgeries: Yes Hx Amputation: Yes (tma right foot) Other/Comment: left suboccipital craniotomy - ANESTHESIA Hx Anesthesia: Yes Hx Anesthesia Reactions: No Hx Malignant Hyperthermia: No Meds Allergies/Adverse Reactions: Allergies Allergy/AdvReac Type Severity Reaction Status Date / Time Penicillins Allergy RASH Verified 09/10/18 10:27 - Medications Medications: Current Medications Acetaminophen (Tylenol 325mg Tab) 650 mg PO Q6 PRN PRN Reason: Pain, Mild (1-3) Last Admin: 09/14/18 21:37 Dose: 650 mg Allopurinol (Zyloprim) 100 mg PO DAILY [facility] Last Admin: 09/15/18 09:43 Dose: 100 mg Calcitriol (Rocaltrol) 0.25 mcg PO MWF [facility] Last Admin: 09/15/18 09:42 Dose: 0.25 mcg Clonidine HCl (Catapres) 0.3 mg PO Q8 [facility] Last Admin: 09/15/18 09:39 Dose: 0.3 mg Ergocalciferol (Drisdol 50,000 Intl Units Cap) 1 cap PO QWK [facility] Ferrous Sulfate (Feosol) 325 mg PO Q8 [facility] Last Admin: 09/15/18 09:39 Dose: 325 mg Folic Acid (Folic Acid) 1 mg PO DAILY [facility] Last Admin: 09/15/18 09:40 Dose: 1 mg Gabapentin (Neurontin) 100 mg PO Q8 [facility] Last Admin: 09/15/18 09:42 Dose: 100 mg Glipizide (Glucotrol) 10 mg PO BID [facility] Last Admin: 09/15/18 09:40 Dose: 10 mg Heparin Sodium (Porcine) (Heparin) 5,000 units SC Q12 [facility]; Protocol Last Admin: 09/15/18 09:40 Dose: 5,000 units Hydralazine HCl (Apresoline) 100 mg PO Q8 [facility] Last Admin: 09/15/18 09:39 Dose: 100 mg Ciprofloxacin (Cipro 200mg/100ml D5w) 100 mls @ 100 mls/hr IVPB Q12 [facility]; Protocol Last Admin: 09/15/18 09:44 Dose: 100 mls/hr Lidocaine (Lidoderm) 1 ea TD DAILY [facility] Last Admin: 09/15/18 09:41 Dose: Not Given Losartan Potassium (Cozaar) 50 mg PO DAILY [facility] Last Admin: 09/15/18 09:39 Dose: 50 mg Metoprolol Tartrate (Lopressor) 50 mg PO DAILY [facility] Last Admin: 09/15/18 09:42 Dose: 50 mg Nifedipine (Procardia Xl) 30 mg PO DAILY [facility] Last Admin: 09/15/18 09:42 Dose: 30 mg Ondansetron HCl (Zofran Inj) 4 mg IVP Q8 PRN PRN Reason: Nausea/Vomiting Pantoprazole Sodium (Protonix Ec Tab) 40 mg PO Q12 [facility] Last Admin: 09/15/18 09:42 Dose: 40 mg Sitagliptin Phosphate (Januvia) 25 mg PO BID [facility] Last Admin: 09/15/18 09:41 Dose: 25 mg Vitamin B Complex/Vit C/Folic Acid (Nephro-Elsa) 1 tab PO DAILY [facility] Last Admin: 09/15/18 09:42 Dose: 1 tab Physical Exam - Constitutional Appears: No Acute Distress - Eye Exam Eye Exam: Conjunctival injection - ENT Exam ENT Exam: Mucous Membranes Moist - Neck Exam Neck exam: Negative for: Lymphadenopathy - Respiratory Exam Respiratory Exam: NORMAL BREATHING PATTERN. absent: Chest Wall Tenderness - Cardiovascular Exam Cardiovascular Exam: REGULAR RHYTHM, RRR. absent: Gallop, JVD, Rubs - GI/Abdominal Exam GI & Abdominal Exam: Normal Bowel Sounds. absent: Guarding - Extremities Exam Extremities exam: Negative for: calf tenderness - Back Exam Back exam: absent: CVA tenderness (L), CVA tenderness (R) - Neurological Exam Neurological exam: Alert - Psychiatric Exam Psychiatric exam: Flat Affect, Normal Affect - Skin Skin Exam: Intact Results - Vital Signs Recent Vital Signs: Last Vital Signs Temp 97.8 F 09/15/18 08:13 Pulse 71 09/15/18 08:13 Resp 20 09/15/18 08:13 BP 154/87 H 09/15/18 08:13 Pulse Ox 100 09/15/18 08:13 - Labs Result Diagrams: 09/15/18 06:45 09/15/18 06:45 Labs: Laboratory Results - last 24 hr 09/14/18 09/14/18 09/14/18 12:10 12:20 12:20 WBC 17.0 H RBC 4.01 L Hgb 10.6 L Hct 33.2 L MCV 82.9 MCH 26.4 L MCHC 31.8 L RDW 18.2 H Plt Count 211 MPV 8.1 Neut % (Auto) 89.9 H Lymph % (Auto) 5.7 L [place] % (Auto) 3.6 Eos % (Auto) 0.2 Baso % (Auto) 0.6 Neut # (Auto) 15.3 H Lymph # (Auto) 1.0 [place] # (Auto) 0.6 Eos # (Auto) 0.0 Baso # (Auto) 0.1 Neutrophils % (Manual) 82 H Band Neutrophils % 1 Lymphocytes % (Manual) 9 L Monocytes % (Manual) 6 Eosinophils % (Manual) 1 Basophils % (Manual) 1 Hypersegmented Polys Present Platelet Estimate Normal Hypochromasia (manual) Slight Poikilocytosis (manual Slight Anisocytosis (manual) Moderate Microcytosis (manual) Moderate pO2 46 VBG pH 7.49 H VBG pCO2 36 L VBG HCO3 27.6 VBG Total CO2 28.5 H VBG O2 Sat (Calc) 82.6 H VBG Base Excess 4.0 H VBG Potassium 3.8 Sodium 137.0 138 Chloride 100.0 100 Glucose 346 H Lactate 1.7 FiO2 21.0 Potassium 4.4 Carbon Dioxide 27 Anion Gap 15 BUN 49 H Creatinine 4.3 H Est GFR ( Amer) 18 Est GFR (Non-Af Amer) 15 POC Glucose (mg/dL) Random Glucose 321 H Calcium 9.5 Phosphorus 3.5 Magnesium 2.0 Total Bilirubin 0.8 AST 59 D ALT 28 Alkaline Phosphatase 118 Troponin I 0.0260 NT-Pro-B Natriuret Pep 1430 H Total Protein 8.5 H Albumin 4.3 Globulin 4.3 H Albumin/Globulin Ratio 1.0 Lipase 102 Venous Blood Potassium 3.8 Urine Color Urine Clarity Urine pH Ur Specific [place] Urine Protein Urine Glucose (UA) Urine Ketones Urine Blood Urine Nitrate Urine Bilirubin Urine Urobilinogen Ur Leukocyte Esterase Urine RBC (Auto) Urine Microscopic WBC 09/14/18 09/14/18 09/14/18 14:30 14:50 16:14 WBC RBC Hgb Hct MCV MCH MCHC RDW Plt Count MPV Neut % (Auto) Lymph % (Auto) [place] % (Auto) Eos % (Auto) Baso % (Auto) Neut # (Auto) Lymph # (Auto) [place] # (Auto) Eos # (Auto) Baso # (Auto) Neutrophils % (Manual) Band Neutrophils % Lymphocytes % (Manual) Monocytes % (Manual) Eosinophils % (Manual) Basophils % (Manual) Hypersegmented Polys Platelet Estimate Hypochromasia (manual) Poikilocytosis (manual Anisocytosis (manual) Microcytosis (manual) pO2 VBG pH VBG pCO2 VBG HCO3 VBG Total CO2 VBG O2 Sat (Calc) VBG Base Excess VBG Potassium Sodium Chloride Glucose Lactate FiO2 Potassium Carbon Dioxide Anion Gap BUN Creatinine Est GFR ( Amer) Est GFR (Non-Af Amer) POC Glucose (mg/dL) 295 H 221 H Random Glucose Calcium Phosphorus Magnesium Total Bilirubin AST ALT Alkaline Phosphatase Troponin I NT-Pro-B Natriuret Pep Total Protein Albumin Globulin Albumin/Globulin Ratio Lipase Venous Blood Potassium Urine Color Straw Urine Clarity Clear Urine pH 7.0 Ur Specific [place] 1.011 Urine Protein >=500 Urine Glucose (UA) >=500 Urine Ketones Negative Urine Blood Negative Urine Nitrate Negative Urine Bilirubin Negative Urine Urobilinogen 0.2-1.0 Ur Leukocyte Esterase Neg Urine RBC (Auto) 3 Urine Microscopic WBC 1 09/14/18 09/15/18 09/15/18 21:40 05:30 06:45 WBC 12.8 H RBC 3.54 L Hgb 9.3 L Hct 29.4 L MCV 83.0 MCH 26.2 L MCHC 31.5 L RDW 18.0 H Plt Count 198 MPV 7.9 Neut % (Auto) 73.0 Lymph % (Auto) 19.1 L [place] % (Auto) 5.4 Eos % (Auto) 1.6 Baso % (Auto) 0.9 Neut # (Auto) 9.3 H Lymph # (Auto) 2.4 [place] # (Auto) 0.7 Eos # (Auto) 0.2 Baso # (Auto) 0.1 Neutrophils % (Manual) Band Neutrophils % Lymphocytes % (Manual) Monocytes % (Manual) Eosinophils % (Manual) Basophils % (Manual) Hypersegmented Polys Platelet Estimate Hypochromasia (manual) Poikilocytosis (manual Anisocytosis (manual) Microcytosis (manual) pO2 VBG pH VBG pCO2 VBG HCO3 VBG Total CO2 VBG O2 Sat (Calc) VBG Base Excess VBG Potassium Sodium Chloride Glucose Lactate FiO2 Potassium Carbon Dioxide Anion Gap BUN Creatinine Est GFR ( Amer) Est GFR (Non-Af Amer) POC Glucose (mg/dL) 172 H 160 H Random Glucose Calcium Phosphorus Magnesium Total Bilirubin AST ALT Alkaline Phosphatase Troponin I NT-Pro-B Natriuret Pep Total Protein Albumin Globulin Albumin/Globulin Ratio Lipase Venous Blood Potassium Urine Color Urine Clarity Urine pH Ur Specific [place] Urine Protein Urine Glucose (UA) Urine Ketones Urine Blood Urine Nitrate Urine Bilirubin Urine Urobilinogen Ur Leukocyte Esterase Urine RBC (Auto) Urine Microscopic WBC 09/15/18 06:45 WBC RBC Hgb Hct MCV MCH MCHC RDW Plt Count MPV Neut % (Auto) Lymph % (Auto) [place] % (Auto) Eos % (Auto) Baso % (Auto) Neut # (Auto) Lymph # (Auto) [place] # (Auto) Eos # (Auto) Baso # (Auto) Neutrophils % (Manual) Band Neutrophils % Lymphocytes % (Manual) Monocytes % (Manual) Eosinophils % (Manual) Basophils % (Manual) Hypersegmented Polys Platelet Estimate Hypochromasia (manual) Poikilocytosis (manual Anisocytosis (manual) Microcytosis (manual) pO2 VBG pH VBG pCO2 VBG HCO3 VBG Total CO2 VBG O2 Sat (Calc) VBG Base Excess VBG Potassium Sodium 138 Chloride 103 Glucose Lactate FiO2 Potassium 4.0 Carbon Dioxide 27 Anion Gap 12 BUN 44 H Creatinine 4.1 H Est GFR ( Amer) 19 Est GFR (Non-Af Amer) 16 POC Glucose (mg/dL) Random Glucose 192 H Calcium 9.2 Phosphorus Magnesium Total Bilirubin 0.3 AST 16 L D ALT 12 L D Alkaline Phosphatase 87 Troponin I NT-Pro-B Natriuret Pep Total Protein 7.2 Albumin 3.6 Globulin 3.6 Albumin/Globulin Ratio 1.0 Lipase Venous Blood Potassium Urine Color Urine Clarity Urine pH Ur Specific [place] Urine Protein Urine Glucose (UA) Urine Ketones Urine Blood Urine Nitrate Urine Bilirubin Urine Urobilinogen Ur Leukocyte Esterase Urine RBC (Auto) Urine Microscopic WBC Assessment & Plan (1) Abdominal pain Status: Acute (2) Diabetic gastroparesis Status: Acute (3) ESRD (end stage renal disease) on dialysis Assessment and Plan: patient with end stage renal disease on maintenance hemodialysis Saturday. Admitted with abdominal pain and perhaps gastroparesis Hypertension history Diabetes mellitus Diabetic foot ulcer in the past Hyperphosphatemia Secondary hyperparathyroidism Recommendation Patient scheduled to have hemodialysis shortly order was giving consent was taken Patient appeared to be feeling much better no more abdominal pain and no nausea or vomiting at the present resume outpatient medication Status: Acute
[2018-09-16 05:18] LABS: MEAN CELL VOLUME 83.3 fl (80.0-94.0); MEAN CORPUSCULAR HEMOGLOBIN 26.7 pg (27.0-31.0); RBC 3.76 Mil/uL (4.40-5.90); RED CELL DISTRIBUTION WIDTH 17.8 % (11.5-14.5); WHITE BLOOD COUNT 11.9 K/uL (4.8-10.8)
[2018-09-16 05:31] LABS: ALBUMIN 3.5 g/dL (3.5-5.0); CALCIUM 8.8 mg/dL (8.4-10.2)
[2018-09-16] MEDS ORDERED: Sodium Chloride 0.9% 250 ML IV ONE (08:29)
[2018-09-16] MEDS: Ciprofloxacin 200mg/100ml D5W 100 ML IVPB SCH (09:00)
[2018-09-16] MEDS ORDERED: Benzocaine/Butamben/Tetracai 14-2-2% TOP Spray TOP ONE (09:03)
[2018-09-16] MEDS ORDERED: Propofol 10 mg/ml Inj (20 ML) ONE (09:04)
[2018-09-16] MEDS ORDERED: Etomidate 20 mg/10ml Inj IV ONE (09:04)
--- NOTE | 2018-09-16 10:57 | CP.PCM.PN ---
Subjective - Date & Time of Evaluation Date of Evaluation: 09/16/18 Time of Evaluation: 10:56 - Subjective Subjective: patient awake and conscious not in acute distress feeling good Objective - Vital Signs/Intake and Output Vital Signs (last 24 hours): Temp Pulse Resp BP Pulse Ox 96.8 F L 63 14 126/67 100 09/16/18 09:55 09/16/18 10:10 09/16/18 09:55 09/16/18 09:55 09/16/18 09:55 Intake and Output: 09/16/18 09/16/18 06:59 18:59 Intake Total 110 Balance 110 - Medications Medications: Current Medications Acetaminophen (Tylenol 325mg Tab) 650 mg PO Q6 PRN PRN Reason: Pain, Mild (1-3) Last Admin: 09/14/18 21:37 Dose: 650 mg Allopurinol (Zyloprim) 100 mg PO DAILY [facility] Last Admin: 09/15/18 09:43 Dose: 100 mg Calcitriol (Rocaltrol) 0.25 mcg PO MWF [facility] Last Admin: 09/15/18 09:42 Dose: 0.25 mcg Clonidine HCl (Catapres) 0.3 mg PO Q8 [facility] Last Admin: 09/16/18 01:32 Dose: 0.3 mg Epoetin [place] (Procrit) 5,000 unit IV [facility] Last Admin: 09/15/18 14:46 Dose: 5,000 unit Ergocalciferol (Drisdol 50,000 Intl Units Cap) 1 cap PO QWK [facility] Ferrous Sulfate (Feosol) 325 mg PO Q8 [facility] Last Admin: 09/16/18 01:33 Dose: 325 mg Folic Acid (Folic Acid) 1 mg PO DAILY [facility] Last Admin: 09/15/18 09:40 Dose: 1 mg Gabapentin (Neurontin) 100 mg PO Q8 [facility] Last Admin: 09/16/18 01:33 Dose: 100 mg Glipizide (Glucotrol) 10 mg PO BID [facility] Last Admin: 09/15/18 16:45 Dose: 10 mg Heparin Sodium (Porcine) (Heparin) 5,000 units SC Q12 [facility]; Protocol Last Admin: 09/15/18 21:35 Dose: 5,000 units Hydralazine HCl (Apresoline) 100 mg PO Q8 [facility] Last Admin: 09/16/18 01:33 Dose: 100 mg Ciprofloxacin (Cipro 200mg/100ml D5w) 100 mls @ 100 mls/hr IVPB Q12 [facility]; Protocol Last Admin: 09/15/18 21:35 Dose: 100 mls/hr Lidocaine (Lidoderm) 1 ea TD DAILY [facility] Last Admin: 09/15/18 09:41 Dose: Not Given Losartan Potassium (Cozaar) 50 mg PO DAILY [facility] Last Admin: 09/15/18 09:39 Dose: 50 mg Metoprolol Tartrate (Lopressor) 50 mg PO DAILY [facility] Last Admin: 09/15/18 09:42 Dose: 50 mg Nifedipine (Procardia Xl) 30 mg PO DAILY [facility] Last Admin: 09/15/18 09:42 Dose: 30 mg Ondansetron HCl (Zofran Inj) 4 mg IVP Q8 PRN PRN Reason: Nausea/Vomiting Pantoprazole Sodium (Protonix Ec Tab) 40 mg PO Q12 [facility] Last Admin: 09/15/18 21:35 Dose: 40 mg Sitagliptin Phosphate (Januvia) 25 mg PO BID [facility] Last Admin: 09/15/18 16:45 Dose: 25 mg Vitamin B Complex/Vit C/Folic Acid (Nephro-Elsa) 1 tab PO DAILY [facility] Last Admin: 09/15/18 09:42 Dose: 1 tab - Labs Labs: 09/16/18 04:45 09/16/18 04:45 - Constitutional Appears: No Acute Distress - Eye Exam Eye Exam: Conjunctival injection - ENT Exam ENT Exam: Mucous Membranes Moist - Respiratory Exam Respiratory Exam: NORMAL BREATHING PATTERN. absent: Rales, Rhonchi - Cardiovascular Exam Cardiovascular Exam: REGULAR RHYTHM, RRR. absent: Gallop, JVD, Rubs - GI/Abdominal Exam GI & Abdominal Exam: Soft, Normal Bowel Sounds - Extremities Exam Extremities Exam: absent: Calf Tenderness - Back Exam Back Exam: absent: CVA tenderness (L), CVA tenderness (R) - Neurological Exam Neurological Exam: Alert - Psychiatric Exam Psychiatric exam: Normal Affect - Skin Skin Exam: absent: Cyanosis Assessment and Plan (1) Abdominal pain Status: Acute (2) Diabetic gastroparesis Status: Acute (3) ESRD (end stage renal disease) on dialysis Assessment & Plan: patient with end stage renal disease on maintenance hemodialysis Saturday. Admitted with abdominal pain . Hypertension history Diabetes mellitus Diabetic foot ulcer in the past Hyperphosphatemia anemia Secondary hyperparathyroidism status post upper endoscopy today reported to have gastritis. Recommendation patient appeared to be stable blood pressure well controlled. He completed dialysis yesterday without any problem. Continue current management continue hemodialysis Saturday continue EPO for anemia Status: Acute
--- NOTE | 2018-09-16 12:07 | PN ---
DATE: 09/16/2018 SUBJECTIVE: The patient seen and examined. Interim events noted. Consults noted and appreciated. The patient feels much better. Abdominal pain resolved. No vomiting. Tolerated food. No chest pain. No shortness of breath. PHYSICAL EXAMINATION: GENERAL: The patient is in no acute distress. VITAL SIGNS: Stable. HEART: S1 and S2, normal and regular. LUNGS: Good bilateral air exchange. ABDOMEN: Soft, nontender. EXTREMITIES: No edema. No calf swelling. No tenderness. No acute ischemia. The patient is status post amputation. CENTRAL NERVOUS SYSTEM: Exam is essentially unchanged. DIAGNOSTIC DATA: Available diagnostic data reviewed. Telemetry monitoring does not reveal significant arrhythmia. Nephrology followup and interventions noted and appreciated. ASSESSMENT AND PLAN: Overall, the patient is clinically improving. Plan as ordered. Joel Lake MD
[2018-09-16] MEDS: Pantoprazole 40 mg EC Tab PO SCH (12:55)
[2018-09-16] MEDS: Multivitamin Vitamin B Complex (Nephro-Vite) Tab PO SCH (12:55)
[2018-09-16] MEDS: NIFEdipine 30 mg ER Tab PO SCH (12:56)
[2018-09-16 16:37] VITALS: BP 112/71; PULSE 62; RESP 16; TEMP 97.8
[2018-09-19 08:08] VITALS: O2SAT 97
--- NOTE | 2018-09-22 13:04 | HP ---
CHIEF COMPLAINT: Multiple episodes of vomiting and abdominal pain. HISTORY OF PRESENT ILLNESS: This is a 47-year-old male known case of diabetes, hypertension, elevated cholesterol, peripheral vascular disease, status post multiple agents, end-stage renal disease on dialysis, who was having intractable vomiting of multiple episodes associated with abdominal pain. The patient was brought to the emergency room and was admitted for further management. REVIEW OF SYSTEMS: Positive for abdominal pain and vomiting and generalized malaise and distress and tiredness. Otherwise is negative for headaches, dizziness, syncope, loss of consciousness, chest pain, shortness of breath, knee joint or extremity pain. All other organ system is unremarkable. PAST MEDICAL HISTORY: Significant for diabetes, hypertension, elevated cholesterol, end-stage renal disease, peripheral vascular disease, anxiety, and depression. PAST SURGICAL HISTORY: Remarkable for multiple amputations and dialysis related procedure. PERSONAL HISTORY: The patient is currently nonsmoker, nondrinker. No substance abuse and instability. FAMILY HISTORY: Noncontributory. MEDICATIONS: The patient is on multiple medication, which is as per reconciliation, which was . ALLERGIES: THE PATIENT IS NOT ALLERGIC TO ANY MEDICATION. PHYSICAL EXAMINATION: GENERAL: Well-developed, well-nourished morbidly obese 47-year-old male in no acute distress. VITAL SIGNS: Temperature afebrile, pulse 88, respirations 18, blood pressure 136/76, no orthostatic changes. HEENT: Pupils reacting to light. No JVD. No thyromegaly. No lymphadenopathy. No nystagmus. Normocephalic and atraumatic. HEART: S1 and S2, normal and regular. No significant murmur or gallops. LUNGS: Good bilateral air exchange. No rales or rhonchi. ABDOMEN: Soft and nontender. No organomegaly. No bowel sounds. No sign of acute abdomen. No guarding. No rigidity. No rebound. EXTREMITIES: No edema. No calf swelling. No tenderness. No acute ischemia. The patient has multiple amputations. Surgical sites are all healed. 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 DIAGNOSTIC DATA: Available diagnostic data reviewed. Telemetry monitoring shows episodes of tachycardia and also white count is 17,000 although the patient does not have . IMPRESSION: Admitting impression Crestor and Plavix, intractable vomiting, end-stage renal disease on dialysis, hypertension, type 2 hyperglycemia, elevated cholesterol, morbid obesity. PLAN: As ordered. Case and plan discussed with the patient. Joel Lake MD
== END 2018-09-16 16:30 | disposition home or self-care (01) | DRG 73 ==
LOC: H.ER 11:41 → H.ERHOLD 13:58 → H.TEL 16:04
PROVIDERS: ADMIT Internal Medicine; ATTEND Internal Medicine
PROC: 5A1D70Z Performance of Urinary Filtration, Intermittent, Less than 6 Hours Per Day (ICD-10-PCS; 2018-09-15)
PROC: 0DD78ZX Extraction of Stomach, Pylorus, Via Natural or Artificial Opening Endoscopic, Diagnostic (ICD-10-PCS; 2018-09-16)
PROC: 0DD38ZX Extraction of Lower Esophagus, Via Natural or Artificial Opening Endoscopic, Diagnostic (ICD-10-PCS; principal; 2018-09-16 09:00)
DX: E11.43 Type 2 diabetes mellitus with diabetic autonomic (poly)neuropathy (principal); N18.6 End stage renal disease; I12.0 Hypertensive chronic kidney disease with stage 5 chronic kidney disease or end stage renal disease; N25.81 Secondary hyperparathyroidism of renal origin; K29.70 Gastritis, unspecified, without bleeding; K31.84 Gastroparesis; E11.65 Type 2 diabetes mellitus with hyperglycemia; K44.9 Diaphragmatic hernia without obstruction or gangrene; D64.9 Anemia, unspecified; E11.22 Type 2 diabetes mellitus with diabetic chronic kidney disease; E78.00 Pure hypercholesterolemia, unspecified; E78.5 Hyperlipidemia, unspecified; E83.39 Other disorders of phosphorus metabolism; Z86.73 Personal history of transient ischemic attack (TIA), and cerebral infarction without residual deficits; Z99.2 Dependence on renal dialysis; Z79.84 Long term (current) use of oral hypoglycemic drugs; Z89.431 Acquired absence of right foot; Z88.0 Allergy status to penicillin

== ENCOUNTER 2018-10-02 15:05 | Observation (INO) | payer OTHER ==
[2018-10-02 15:05] VITALS: BMI 40.4
[2018-10-02] MEDS ORDERED: Sodium Chloride 0.9% 1,000 ML IV STA (15:24)
--- NOTE | 2018-10-02 15:41 | ED PDOC ---
HPI: Abdomen Time Seen by Provider: 10/02/18 15:15 Chief Complaint (Nursing): GI Problem Chief Complaint (Provider): GI Problem History Per: Patient History/Exam Limitations: no limitations Onset/Duration Of Symptoms: Days (x1) Additional Complaint(s): Patient is a 47 y/o male who presents to the ED complaining of epigastric pain associated with vomiting coffee ground material for x1 day. Patient was admitted x2 weeks ago for similar symptoms. At that time he had an endoscopy which resulted in diagnosis of gastritis. Patient is s/p amputation head of right foot. Past Medical History Reviewed: Historical Data, Nursing Documentation, Vital Signs Vital Signs: Last Vital Signs Temp 98.2 F 10/02/18 15:09 Pulse 145 H 10/02/18 15:09 Resp 20 10/02/18 15:09 BP 156/114 H 10/02/18 15:09 Pulse Ox 99 10/02/18 15:09 - Medical History PMH: Anemia, CVA, Diabetes (type II), HTN, Hypercholesterolemia, Hyperlipidemia, End Stage Renal Disease, Chronic Kidney Disease Denies: Arthritis, CHF, COPD, HIV, Hypothyroidism, Rheumatoid Arthritis - Surgical History Other surgeries: Amputation head of right foot - Family History Family History: States: Unknown Family Hx - Immunization History Hx Tetanus Toxoid Vaccination: No Hx Influenza Vaccination: No Hx Pneumococcal Vaccination: No - Home Medications Home Medications: Ambulatory Orders Medication Instructions Recorded Folic Acid 1 mg PO DAILY 12/01/16 Allopurinol [Zyloprim] 100 mg PO DAILY tab 07/19/17 Calcitriol 0.25 cap PO SUTUTHSA 08/05/17 Gabapentin [Neurontin] 100 mg PO Q8 12/13/17 Nifedipine [Nifedipine ER] 30 mg PO DAILY 12/13/17 cloNIDine [Catapres] 0.3 mg PO Q12 12/13/17 Vitamin B Complex/Vit C/Folic 1 tab PO DAILY #30 tab 06/19/18 [Nephro-Elsa] Ergocalciferol (Vitamin D2) 50,000 unit PO QWK 09/10/18 [Vitamin D2] Ferrous Sulfate 325 mg PO DAILY 09/10/18 GlipiZIDE [Glucotrol] 10 mg PO BID 09/10/18 Hydralazine HCl 100 mg PO Q8 09/10/18 Lidocaine 1 patch TOP DAILY 09/10/18 Losartan [Cozaar] 50 mg PO DAILY 09/10/18 Metoprolol Tartrate [Lopressor] 50 mg PO DAILY 09/10/18 SITagliptin [Januvia] 25 mg PO BID 09/10/18 Pantoprazole [Protonix] 40 mg PO DAILY #30 ect 09/16/18 Insulin Lispro [humALOG] 7 unit SC ACTID 10/02/18 - Allergies Allergies/Adverse Reactions: Allergies Allergy/AdvReac Type Severity Reaction Status Date / Time Penicillins Allergy RASH Verified 10/02/18 15:09 Review of Systems ROS Statement: Except As Marked, All Systems Reviewed And Found Negative Gastrointestinal: Positive for: Vomiting Physical Exam - Reviewed Nursing Documentation Reviewed: Yes Vital Signs Reviewed: Yes - Physical Exam Appears: Positive for: Well, Non-toxic, No Acute Distress Head Exam: Positive for: ATRAUMATIC, NORMOCEPHALIC Skin: Positive for: Normal Color, Warm, DRY Eye Exam: Positive for: EOMI, Normal appearance, PERRL Cardiovascular/Chest: Positive for: Regular Rate, Rhythm. Negative for: Murmur Respiratory: Positive for: Normal Breath Sounds. Negative for: Respiratory Distress Gastrointestinal/Abdominal: Positive for: Tenderness (epigastric tenderness), Other (coffee ground vomitous in bag) Extremity: Positive for: Normal ROM, Other (head of right foot amputated). Negative for: Pedal Edema, Deformity Neurologic/Psych: Positive for: Alert, Oriented. Negative for: Motor/Sensory Deficits - Laboratory Results Result Diagrams: 10/02/18 16:20 10/02/18 16:15 - ECG O2 Sat by Pulse Oximetry: 99 (RA) Pulse Ox Interpretation: Normal Medical Decision Making Medical Decision Making: Time: 15:24 Initial Plan: Type and Screen EKG CMP Lipase CBC w/ diff CXR Glucose IV Fluids Zofran -- Scribe Attestation: Documented by Surya Viera, acting as a scribe for Pardeep Chou MD. Provider Scribe Attestation: All medical record entries made by the Scribe were at my direction and personally dictated by me. I have reviewed the chart and agree that the record accurately reflects my personal performance of the history, physical exam, medical decision making, and the department course for this patient. I have also personally directed, reviewed, and agree with the discharge instructions and disposition. Disposition - Clinical Impression Clinical Impression: GI bleed, CKD (chronic kidney disease) - Patient ED Disposition Is Patient to be Admitted: Yes - Disposition Disposition Time: 17:26 Condition: FAIR Forms: [employer] ([place]) - Pt Status Changed To: Hospital Disposition Of: Inpatient - Admit Certification Admit to Inpatient:: After my assessment, the patient will require hospitalization for at least two midnights. This is because of the severity of symptoms shown, intensity of services needed, and/or the medical risk in this patient being treated as an outpatient. - POA Present On Arrival: None
[2018-10-02 16:42] LABS: ALBUMIN 4.7 g/dL (3.5-5.0); CALCIUM 10.1 mg/dL (8.4-10.2)
[2018-10-02 16:43] LABS: BASO # 0.1 K/uL (0.0-0.2); MONO # 0.7 K/uL (0.0-0.8); NEUT # 16.4 K/uL (1.8-7.0); RED CELL DISTRIBUTION WIDTH 17.3 % (11.5-14.5)
--- NOTE | 2018-10-02 17:01 | RAD ---
Date of service: 10/02/2018 HISTORY: cough COMPARISON: Chest radiograph dated 09/14/2018. FINDINGS: LUNGS: No active pulmonary disease. PLEURA: No significant pleural effusion identified, no pneumothorax apparent. CARDIOVASCULAR: No aortic atherosclerotic calcification present. Cardiomediastinal silhouette stably enlarged. OSSEOUS STRUCTURES: Unchanged. VISUALIZED UPPER ABDOMEN: Normal. OTHER FINDINGS: Left internal jugular access tunneled hemodialysis catheter redemonstrated. IMPRESSION: No active disease.
[2018-10-02 17:05] LABS: BASO % 0.4 % (0.0-2.0); EOS % 0.1 % (0.0-4.0); HEMOGLOBIN 12.9 g/dL (12.0-18.0); LYMPH # 0.8 K/uL (1.0-4.3); LYMPH % 4.3 % (20.0-40.0); MEAN CELL VOLUME 81.4 fl (80.0-94.0); MEAN CORPUSCULAR HEMOGLOBIN 25.4 pg (27.0-31.0); MEAN CORPUSCULAR HGB CONC 31.2 g/dL (33.0-37.0); MEAN PLATELET VOLUME 8.6 fl (7.2-11.7); MONO % 3.8 % (0.0-10.0); NEUT % 91.4 % (50.0-75.0); PLATELET COUNT 271 K/uL (130-400); RBC 5.08 Mil/uL (4.40-5.90)
[2018-10-02 19:31] LABS: BANDS 3 % (0-2); LYMPHOCYTE 27 % (20-50); MONOCYTE 4 % (0-10); NEUTROPHIL 66 % (42-75); TOTAL CELLS COUNTED 100
[2018-10-02 19:32] LABS: ANISOCYTOSIS SLIGHT; HYPOCHROMIC SLIGHT; MICROCYTOSIS SLIGHT; PLATELET ESTIMATE NORMAL (NORMAL); POIKILOCYTOSIS SLIGHT; POLYCHROMIC SLIGHT
[2018-10-02] MEDS ORDERED: NIFEdipine 30 mg ER Tab PO STA (20:26)
[2018-10-02] MEDS ORDERED: Ergocalciferol 50,000 Intl Units Cap PO SCH (20:30)
[2018-10-02 20:58] LABS: HEMOGLOBIN 12.7 g/dL (12.0-18.0); MEAN CORPUSCULAR HEMOGLOBIN 25.1 pg (27.0-31.0); RBC 5.07 Mil/uL (4.40-5.90); RED CELL DISTRIBUTION WIDTH 17.1 % (11.5-14.5); WHITE BLOOD COUNT 17.5 K/uL (4.8-10.8)
--- NOTE | 2018-10-03 07:10 | CP.PCM.HP ---
<Lavelle Sims - Last Filed: 10/03/18 07:23> History of Present Illness - History of Present Illness History of Present Illness: 47 y/o M with a PMHx of ESRD on HD (MWF), DM2, HTN, HLD, prior CVA, anemia, presented to ED yesterday c/o of severe epigastric pain, nausea, vomiting and coffee ground vomiting. Pt was previously admitted for similar symptoms 2 weeks ago. Patient denies taking NSAIDS, aspirin or any pain medications. Denies bloody stool, chest pain, shortness of breath, diarrhea, constipation, urinary symptoms, fever, chills. --On 09/16/18, endoscopy showed erosive esophagitis, large hiatal hernia, gastroparesis and gastritis. --Toda, pt was seen and examined by bedside with Dr Lake. Pt reports feeling better, denies abdominal pain, nausea or vomiting at this moment. Pt is hungry and requests diet. Pt afebrile with No acute events overnight. PMD: Dr Gerard SHAFFER PMHx: hypertension, CKD/ESRD, DM2, hyperlipidemia, prior CVA, anemia PSHx: RLE partial foot amputation SHx: denies tobacco, alcohol or rec drugs. FHx: Unknown Present on Admission - Present on Admission Any Indicators Present on Admission: No Review of Systems - Constitutional Constitutional: absent: Anorexia, Chills, Fever - EENT Eyes: absent: Change in Vision Nose/Mouth/Throat: absent: Nasal Congestion, Dysphagia, Halitosis - Cardiovascular Cardiovascular: absent: Chest Pain, Chest Pain at Rest, Palpitations - Respiratory Respiratory: absent: Cough, Dyspnea, Hemoptysis - Gastrointestinal Gastrointestinal: absent: Abdominal Pain, Nausea, Odynophagia, Vomiting - Genitourinary Genitourinary: absent: Dysuria, Hematuria, Urinary Frequency - Neurological Neurological: absent: Dizziness, Numbness, Headaches Past Patient History - Infectious Disease Hx of Infectious Diseases: None - Past Medical History & Family History Past Medical History?: Yes - Past Social History Smoking Status: Never Smoked - CARDIAC Hx Cardiac Disorders: Yes Hx Hypercholesterolemia: Yes Hx Hypertension: Yes - PULMONARY Hx Respiratory Disorders: No - NEUROLOGICAL Hx Neurological Disorder: Yes HX Cerebrovascular Accident: Yes - HEENT Hx HEENT Problems: No - RENAL Hx Chronic Kidney Disease: Yes Hx Dialysis: Yes (10/01/18) Hx Renal Failure: Yes - ENDOCRINE/METABOLIC Hx Endocrine Disorders: Yes Hx Diabetes Mellitus Type 2: Yes - HEMATOLOGICAL/ONCOLOGICAL Hx Anemia: Yes Hx Human Immunodeficiency Virus (HIV): No - INTEGUMENTARY Hx Dermatological Problems: No - MUSCULOSKELETAL/RHEUMATOLOGICAL Hx Falls: No - GASTROINTESTINAL Hx Gastrointestinal Disorders: Yes Hx Nausea: Yes Hx Vomiting: Yes - GENITOURINARY/GYNECOLOGICAL Hx Genitourinary Disorders: No - PSYCHIATRIC Hx Psychophysiologic Disorder: No Hx Substance Use: No - SURGICAL HISTORY Hx Surgeries: Yes Hx Amputation: Yes (tma right foot) Other/Comment: left suboccipital craniotomy and right ankle surgery - ANESTHESIA Hx Anesthesia: Yes Hx Anesthesia Reactions: No Hx Malignant Hyperthermia: No Meds Allergies/Adverse Reactions: Allergies Allergy/AdvReac Type Severity Reaction Status Date / Time Penicillins Allergy RASH Verified 10/02/18 15:09 Physical Exam - Constitutional Appears: No Acute Distress - Head Exam Head Exam: ATRAUMATIC, NORMAL INSPECTION - Eye Exam Eye Exam: EOMI - ENT Exam ENT Exam: Mucous Membranes Moist - Neck Exam Neck exam: Positive for: Full Rom, Normal Inspection - Respiratory Exam Respiratory Exam: Clear to Auscultation Bilateral, NORMAL BREATHING PATTERN - Cardiovascular Exam Cardiovascular Exam: REGULAR RHYTHM, +S1, +S2 - GI/Abdominal Exam GI & Abdominal Exam: Normal Bowel Sounds, Soft. absent: Guarding, Hernia, Rebound, Rigid, Tenderness - Extremities Exam Extremities exam: Positive for: normal inspection. Negative for: calf tenderness - Neurological Exam Neurological exam: Alert, Oriented x3 Results - Vital Signs Recent Vital Signs: Last Vital Signs Temp 97.8 F 10/03/18 05:35 Pulse 70 10/03/18 05:35 Resp 18 10/03/18 05:35 BP 125/61 10/03/18 05:35 Pulse Ox 97 10/03/18 05:35 - Labs Result Diagrams: 10/02/18 20:32 10/02/18 16:15 Labs: Laboratory Results - last 24 hr 10/02/18 10/02/18 10/02/18 15:40 16:15 16:15 WBC RBC Hgb Hct MCV MCH MCHC RDW Plt Count MPV Neut % (Auto) Lymph % (Auto) [place] % (Auto) Eos % (Auto) Baso % (Auto) Neut # (Auto) Lymph # (Auto) [place] # (Auto) Eos # (Auto) Baso # (Auto) Neutrophils % (Manual) Band Neutrophils % Lymphocytes % (Manual) Monocytes % (Manual) Platelet Estimate Polychromasia Hypochromasia (manual) Poikilocytosis (manual Anisocytosis (manual) Microcytosis (manual) Sodium 143 Potassium 4.7 Chloride 98 Carbon Dioxide 22 Anion Gap 28 H BUN 23 H Creatinine 3.7 H Est GFR ( Amer) 21 Est GFR (Non-Af Amer) 18 POC Glucose (mg/dL) 300 H Random Glucose 298 H Calcium 10.1 Total Bilirubin 0.6 AST 20 ALT 19 L Alkaline Phosphatase 133 H D Total Protein 9.2 H Albumin 4.7 Globulin 4.6 H Albumin/Globulin Ratio 1.0 Lipase 63 Blood Type O NEGATIVE Antibody Screen Negative BBK History Checked Patient has bt 10/02/18 10/02/18 10/02/18 16:20 18:26 20:32 WBC 18.0 H D 17.5 H RBC 5.08 5.07 Hgb 12.9 D 12.7 Hct 41.4 41.1 MCV 81.4 81.0 MCH 25.4 L 25.1 L MCHC 31.2 L 31.0 L RDW 17.3 H 17.1 H Plt Count 271 289 MPV 8.6 Neut % (Auto) 91.4 H Lymph % (Auto) 4.3 L [place] % (Auto) 3.8 Eos % (Auto) 0.1 Baso % (Auto) 0.4 Neut # (Auto) 16.4 H Lymph # (Auto) 0.8 L [place] # (Auto) 0.7 Eos # (Auto) 0.0 Baso # (Auto) 0.1 Neutrophils % (Manual) 66 Band Neutrophils % 3 H Lymphocytes % (Manual) 27 Monocytes % (Manual) 4 Platelet Estimate Normal Polychromasia Slight Hypochromasia (manual) Slight Poikilocytosis (manual Slight Anisocytosis (manual) Slight Microcytosis (manual) Slight Sodium Potassium Chloride Carbon Dioxide Anion Gap BUN Creatinine Est GFR ( Amer) Est GFR (Non-Af Amer) POC Glucose (mg/dL) 222 H Random Glucose Calcium Total Bilirubin AST ALT Alkaline Phosphatase Total Protein Albumin Globulin Albumin/Globulin Ratio Lipase Blood Type Antibody Screen BBK History Checked 10/02/18 10/03/18 21:56 06:09 WBC RBC Hgb Hct MCV MCH MCHC RDW Plt Count MPV Neut % (Auto) Lymph % (Auto) [place] % (Auto) Eos % (Auto) Baso % (Auto) Neut # (Auto) Lymph # (Auto) [place] # (Auto) Eos # (Auto) Baso # (Auto) Neutrophils % (Manual) Band Neutrophils % Lymphocytes % (Manual) Monocytes % (Manual) Platelet Estimate Polychromasia Hypochromasia (manual) Poikilocytosis (manual Anisocytosis (manual) Microcytosis (manual) Sodium Potassium Chloride Carbon Dioxide Anion Gap BUN Creatinine Est GFR ( Amer) Est GFR (Non-Af Amer) POC Glucose (mg/dL) 229 H 194 H Random Glucose Calcium Total Bilirubin AST ALT Alkaline Phosphatase Total Protein Albumin Globulin Albumin/Globulin Ratio Lipase Blood Type Antibody Screen BBK History Checked Assessment & Plan - Assessment and Plan (Free Text) Assessment: 47 y/o M with a PMHx of ESRD on HD (MWF), DM2, HTN, HLD, prior CVA, anemia is admitted for evaluation of upper GI bleeding. --On 09/16/18, endoscopy showed erosive esophagitis, large hiatal hernia, gastroparesis and gastritis. --CT abdomen on 09/10/18: no acute abdominal or pelvic abnormality, no evidence of bowel obstructuion. PLAN: --Admit to telemetry --Afebrile, stable VS, Hgb wnl. --GI consult, Dr Jc. F/u recommendations --Nephrology consult, Dr Rodríguez. --Will advance diet to regular. --Continue with pantoprazole PO, ZOfran PRN --Home meds resumed --Continue management as ordered. Case discussed with Dr Lake. <Joel Lake - Last Filed: 10/03/18 15:45> Results - Vital Signs Recent Vital Signs: Last Vital Signs Temp 98 F 10/03/18 15:38 Pulse 80 10/03/18 15:38 Resp 20 10/03/18 15:38 BP 159/88 H 10/03/18 15:38 Pulse Ox 99 10/03/18 15:38 - Labs Result Diagrams: 10/03/18 08:13 10/03/18 08:13 Labs: Laboratory Results - last 24 hr 10/02/18 10/02/18 10/02/18 15:40 16:15 16:15 WBC RBC Hgb Hct MCV MCH MCHC RDW Plt Count MPV Neut % (Auto) Lymph % (Auto) [place] % (Auto) Eos % (Auto) Baso % (Auto) Neut # (Auto) Lymph # (Auto) [place] # (Auto) Eos # (Auto) Baso # (Auto) Neutrophils % (Manual) Band Neutrophils % Lymphocytes % (Manual) Monocytes % (Manual) Platelet Estimate Polychromasia Hypochromasia (manual) Poikilocytosis (manual Anisocytosis (manual) Microcytosis (manual) Sodium 143 Potassium 4.7 Chloride 98 Carbon Dioxide 22 Anion Gap 28 H BUN 23 H Creatinine 3.7 H Est GFR ( Amer) 21 Est GFR (Non-Af Amer) 18 POC Glucose (mg/dL) 300 H Random Glucose 298 H Calcium 10.1 Total Bilirubin 0.6 AST 20 ALT 19 L Alkaline Phosphatase 133 H D Total Protein 9.2 H Albumin 4.7 Globulin 4.6 H Albumin/Globulin Ratio 1.0 Lipase 63 Blood Type O NEGATIVE Antibody Screen Negative BBK History Checked Patient has bt 10/02/18 10/02/18 10/02/18 16:20 18:26 20:32 WBC 18.0 H D 17.5 H RBC 5.08 5.07 Hgb 12.9 D 12.7 Hct 41.4 41.1 MCV 81.4 81.0 MCH 25.4 L 25.1 L MCHC 31.2 L 31.0 L RDW 17.3 H 17.1 H Plt Count 271 289 MPV 8.6 Neut % (Auto) 91.4 H Lymph % (Auto) 4.3 L [place] % (Auto) 3.8 Eos % (Auto) 0.1 Baso % (Auto) 0.4 Neut # (Auto) 16.4 H Lymph # (Auto) 0.8 L [place] # (Auto) 0.7 Eos # (Auto) 0.0 Baso # (Auto) 0.1 Neutrophils % (Manual) 66 Band Neutrophils % 3 H Lymphocytes % (Manual) 27 Monocytes % (Manual) 4 Platelet Estimate Normal Polychromasia Slight Hypochromasia (manual) Slight Poikilocytosis (manual Slight Anisocytosis (manual) Slight Microcytosis (manual) Slight Sodium Potassium Chloride Carbon Dioxide Anion Gap BUN Creatinine Est GFR ( Amer) Est GFR (Non-Af Amer) POC Glucose (mg/dL) 222 H Random Glucose Calcium Total Bilirubin AST ALT Alkaline Phosphatase Total Protein Albumin Globulin Albumin/Globulin Ratio Lipase Blood Type Antibody Screen BBK History Checked 10/02/18 10/03/18 10/03/18 21:56 06:09 08:13 WBC 12.0 H RBC 4.60 Hgb 11.5 L Hct 37.6 MCV 81.7 MCH 25.1 L MCHC 30.7 L RDW 17.4 H Plt Count 253 MPV Neut % (Auto) Lymph % (Auto) [place] % (Auto) Eos % (Auto) Baso % (Auto) Neut # (Auto) Lymph # (Auto) [place] # (Auto) Eos # (Auto) Baso # (Auto) Neutrophils % (Manual) Band Neutrophils % Lymphocytes % (Manual) Monocytes % (Manual) Platelet Estimate Polychromasia Hypochromasia (manual) Poikilocytosis (manual Anisocytosis (manual) Microcytosis (manual) Sodium Potassium Chloride Carbon Dioxide Anion Gap BUN Creatinine Est GFR ( Amer) Est GFR (Non-Af Amer) POC Glucose (mg/dL) 229 H 194 H Random Glucose Calcium Total Bilirubin AST ALT Alkaline Phosphatase Total Protein Albumin Globulin Albumin/Globulin Ratio Lipase Blood Type Antibody Screen BBK History Checked 10/03/18 10/03/18 08:13 11:25 WBC RBC Hgb Hct MCV MCH MCHC RDW Plt Count MPV Neut % (Auto) Lymph % (Auto) [place] % (Auto) Eos % (Auto) Baso % (Auto) Neut # (Auto) Lymph # (Auto) [place] # (Auto) Eos # (Auto) Baso # (Auto) Neutrophils % (Manual) Band Neutrophils % Lymphocytes % (Manual) Monocytes % (Manual) Platelet Estimate Polychromasia Hypochromasia (manual) Poikilocytosis (manual Anisocytosis (manual) Microcytosis (manual) Sodium 143 Potassium 5.0 Chloride 104 Carbon Dioxide 24 Anion Gap 20 BUN 33 H Creatinine 4.8 H Est GFR ( Amer) 16 Est GFR (Non-Af Amer) 13 POC Glucose (mg/dL) 171 H Random Glucose 183 H Calcium 9.3 Total Bilirubin 0.3 AST 13 L D ALT 23 Alkaline Phosphatase 95 Total Protein 8.0 Albumin 4.0 Globulin 4.0 H Albumin/Globulin Ratio 1.0 Lipase Blood Type Antibody Screen BBK History Checked Assessment & Plan - Assessment and Plan (Free Text) Assessment: Patient was personally seen and examined by me in rounds with residents. Available labs and diagnostic data reviewed. Case, Patient's condition and management plan discussed with residents in rounds. Agree with resident's progress note. Plan: As ordered.
[2018-10-03 08:21] LABS: HEMOGLOBIN 11.5 g/dL (12.0-18.0); MEAN CELL VOLUME 81.7 fl (80.0-94.0); MEAN CORPUSCULAR HEMOGLOBIN 25.1 pg (27.0-31.0); MEAN CORPUSCULAR HGB CONC 30.7 g/dL (33.0-37.0); RBC 4.6 Mil/uL (4.40-5.90); RED CELL DISTRIBUTION WIDTH 17.4 % (11.5-14.5)
[2018-10-03] MEDS: Insulin Lispro (humaLOG) 100 Units/ml Inj SC SCH ×3 (08:40→16:52)
[2018-10-03 08:45] LABS: CALCIUM 9.3 mg/dL (8.4-10.2)
[2018-10-03] MEDS ORDERED: Pantoprazole 40 mg EC Tab PO SCH (09:00)
[2018-10-03] MEDS ORDERED: NIFEdipine 30 mg ER Tab PO SCH (09:00)
[2018-10-03] MEDS ORDERED: Multivitamin Vitamin B Complex (Nephro-Vite) Tab PO SCH (09:00)
[2018-10-03] MEDS ORDERED: Lidocaine 5% Patch TD SCH (09:00)
--- NOTE | 2018-10-03 13:25 | CP.PCM.DIS ---
Provider - Provider Date of Admission: 10/02/18 17:20 Attending physician: Joel Lake MD Primary care physician: Dr Gee Consults: Gastroenterology: Dr Jc Time Spent in preparation of Discharge (in minutes): 30 Diagnosis - Discharge Diagnosis (1) GI bleed Status: Acute (2) Abdominal pain Status: Acute Hospital Course - Lab Results Lab Results: Most Recent Lab Values WBC 12.0 K/uL (4.8-10.8) H 10/03/18 08:13 RBC 4.60 Mil/uL (4.40-5.90) 10/03/18 08:13 Hgb 11.5 g/dL (12.0-18.0) L 10/03/18 08:13 Hct 37.6 % (35.0-51.0) 10/03/18 08:13 MCV 81.7 fl (80.0-94.0) 10/03/18 08:13 MCH 25.1 pg (27.0-31.0) L 10/03/18 08:13 MCHC 30.7 g/dL (33.0-37.0) L 10/03/18 08:13 RDW 17.4 % (11.5-14.5) H 10/03/18 08:13 Plt Count 253 K/uL (130-400) 10/03/18 08:13 MPV 8.6 fl (7.2-11.7) 10/02/18 16:20 Neut % (Auto) 91.4 % (50.0-75.0) H 10/02/18 16:20 Lymph % (Auto) 4.3 % (20.0-40.0) L 10/02/18 16:20 [place] % (Auto) 3.8 % (0.0-10.0) 10/02/18 16:20 Eos % (Auto) 0.1 % (0.0-4.0) 10/02/18 16:20 Baso % (Auto) 0.4 % (0.0-2.0) 10/02/18 16:20 Neut # (Auto) 16.4 K/uL (1.8-7.0) H 10/02/18 16:20 Lymph # (Auto) 0.8 K/uL (1.0-4.3) L 10/02/18 16:20 [place] # (Auto) 0.7 K/uL (0.0-0.8) 10/02/18 16:20 Eos # (Auto) 0.0 K/uL (0.0-0.7) 10/02/18 16:20 Baso # (Auto) 0.1 K/uL (0.0-0.2) 10/02/18 16:20 Neutrophils % (Manual) 66 % (42-75) 10/02/18 16:20 Band Neutrophils % 3 % (0-2) H 10/02/18 16:20 Lymphocytes % (Manual) 27 % (20-50) 10/02/18 16:20 Monocytes % (Manual) 4 % (0-10) 10/02/18 16:20 Platelet Estimate Normal (NORMAL) 10/02/18 16:20 Polychromasia Slight 10/02/18 16:20 Hypochromasia (manual) Slight 10/02/18 16:20 Poikilocytosis (manual Slight 10/02/18 16:20 Anisocytosis (manual) Slight 10/02/18 16:20 Microcytosis (manual) Slight 10/02/18 16:20 Sodium 143 mmol/l (132-148) 10/03/18 08:13 Potassium 5.0 MMOL/L (3.6-5.0) 10/03/18 08:13 Chloride 104 mmol/L (98-107) 10/03/18 08:13 Carbon Dioxide 24 mmol/L (22-30) 10/03/18 08:13 Anion Gap 20 (10-20) 10/03/18 08:13 BUN 33 mg/dl (9-20) H 10/03/18 08:13 Creatinine 4.8 mg/dl (0.8-1.5) H 10/03/18 08:13 Est GFR ( Amer) 16 10/03/18 08:13 Est GFR (Non-Af Amer) 13 10/03/18 08:13 POC Glucose (mg/dL) 171 mg/dL (65-110) H 10/03/18 11:25 Random Glucose 183 mg/dL (75-110) H 10/03/18 08:13 Calcium 9.3 mg/dL (8.4-10.2) 10/03/18 08:13 Total Bilirubin 0.3 mg/dl (0.2-1.3) 10/03/18 08:13 AST 13 U/L (17-59) L D 10/03/18 08:13 ALT 23 U/L (21-72) 10/03/18 08:13 Alkaline Phosphatase 95 U/L (38-126) 10/03/18 08:13 Total Protein 8.0 G/DL (6.3-8.2) 10/03/18 08:13 Albumin 4.0 g/dL (3.5-5.0) 10/03/18 08:13 Globulin 4.0 gm/dL (2.2-3.9) H 10/03/18 08:13 Albumin/Globulin Ratio 1.0 (1.0-2.1) 10/03/18 08:13 Lipase 63 U/L (23-300) 10/02/18 16:15 Blood Type O NEGATIVE 10/02/18 16:15 Antibody Screen Negative 10/02/18 16:15 BBK History Checked Patient has bt 10/02/18 16:15 - Hospital Course Hospital Course: 47 y/o M with a PMHx of ESRD on HD (MWF), DM2, HTN, HLD, prior CVA, anemia, presented to ED yesterday c/o of severe epigastric pain, nausea, vomiting and coffee ground vomiting. Pt was previously admitted for similar symptoms 2 weeks ago. On 09/16/18, endoscopy showed erosive esophagitis, large hiatal hernia, gastroparesis and gastritis. Today, pt was seen and examined by bedside with Dr Lake. Pt reports feeling better, denies abdominal pain, nausea or vomiting at this moment. Pt afebrile, tolerated PO regular diet. Dr Jc, GI specialist, evaluated patient and recommended outpatient management. Jenaro be discharged home with isntruction to F/U his GI doctor within 1 week. - Date & Time of H&P Date of H&P: 10/03/18 Time of H&P: 07:10 Discharge Exam - Head Exam Head Exam: ATRAUMATIC, NORMAL INSPECTION - Additional Findings Additional findings: - Constitutional Appears: No Acute Distress - Head Exam Head Exam: ATRAUMATIC, NORMAL INSPECTION - Eye Exam Eye Exam: EOMI - ENT Exam ENT Exam: Mucous Membranes Moist - Neck Exam Neck exam: Positive for: Full Rom, Normal Inspection - Respiratory Exam Respiratory Exam: Clear to Auscultation Bilateral, NORMAL BREATHING PATTERN - Cardiovascular Exam Cardiovascular Exam: REGULAR RHYTHM, +S1, +S2 - GI/Abdominal Exam GI & Abdominal Exam: Normal Bowel Sounds, Soft. absent: Guarding, Hernia, Rebound, Rigid, Tenderness - Extremities Exam Extremities exam: Positive for: normal inspection. Negative for: calf tenderness - Neurological Exam Neurological exam: Alert, Oriented x3 Discharge Plan - Follow Up Plan Condition: GUARDED Disposition: HOME/ ROUTINE Instructions: Renal Failure Diet (DC)
[2018-10-03 15:39] VITALS: PULSE 80; RESP 20; TEMP 98
--- NOTE | 2018-10-03 15:47 | CP.PCM.CON ---
History of Present Illness - History of Present Illness History of Present Illness: Nephrology Consultation Note: Assessment: Stable acute gastroenteritis Diabetic chronic Kidney Disease (E11.22) Hypertensive Chronic Kidney Disease (I12.0) End stage renal disease (N18.6) dependence on hemodialysis (Z99.2) (MWF) via pc Anemia (D64.9), Hyperphosphatemia (E83.39), Secondary Hyperparathyroidism (E21.1), HTN (I12.0) Plan: Will plan for HD today as ordered.Continue with Nephrovite 1 tab/day. PRBC as needed for anemia. not on YURIY with dialysis as last Hb 11.5 Continue with phos binders, last phos level; check Continue with calcitriol. BP control with meds as ordered. Patient on RAAS anthony Glycemic control, Dialysis consistent diet Further work up/management as per primary team Dose meds/antibiotics (if needed) for ESRD status. Avoid fleets enema/magnesium based laxatives. Thanks for allowing me to participate in care of your patient. Will follow patient with you. Please call if any Qs Dr Rigo Toro Office: [phone] Chief Complaint; pain abdomen HPI: Pt is a 47 M with hx of ESRD on hemodialysis (MWF) via pc , last dialysis wed, chronic anemia, hyperphosphatemia, secondary hyperparathyroidism, Diabetes Mellitus, hypertension presented with complaints of pain abdomen with nausea and vomitting x 2 days now better Renal consult requested for ESRD management. ROS: Cardiovascular: No chest pain. Pulmonary: No shortness of breath Gastrointestinal: improved Genitourinary: No pain while urinating. Denies blood in urine. All other negative except as mentioned in HPI Physical Examination: General Appearance: Comfortable, in no acute respiratory distress, co-operative . obese appearing Vitals reviewed and noted as below Head; Atraumatic, normocephalic ENT: no ulcers no thrush. Tongue is midline. Oropharynx: no rash or ulcers. EYES: Pupils are equal, round and reactive to light accommodation. Eye muscles and extraocular movement intact. Sclera is anicteric. Neck; supple no lymphadenopathy, no thyromegaly or bruit Lungs: Normal respiratory rate/effort. Breath sounds bilateral equal and clear Heart: Normal rate. s1s2 normal. No rub or gallop. Extremities: no edema. No varicose veins. Rt TMA Neurological: Patient is alert, awake and oriented to person, place and time. No focal deficit. Strength bilateral appropriate and equal Skin: Warm and dry. Normal turgor. No rash. Palpitation: Normal elasticity for age Abdomen: Abdomen is soft. Bowel sounds +. There is no abdominal tenderness, no guarding/rigidity or organomegaly Psych: normal insight and normal affect/mood MSK: no joint tenderness or swelling. Digits and nails normal, no deformity : kidney or bladder not palpable Access: pc Labs/imaging reviewed. Past medical history, past surgical history, family history, social history, allergy reviewed and noted as below Family Hx: no hx of CKD. Non contributory Past Patient History - Infectious Disease Hx of Infectious Diseases: None - Past Medical History & Family History Past Medical History?: Yes - Past Social History Smoking Status: Never Smoked - CARDIAC Hx Cardiac Disorders: Yes Hx Hypercholesterolemia: Yes Hx Hypertension: Yes - PULMONARY Hx Respiratory Disorders: No - NEUROLOGICAL Hx Neurological Disorder: Yes HX Cerebrovascular Accident: Yes - HEENT Hx HEENT Problems: No - RENAL Hx Chronic Kidney Disease: Yes Hx Dialysis: Yes (10/01/18) Hx Renal Failure: Yes - ENDOCRINE/METABOLIC Hx Endocrine Disorders: Yes Hx Diabetes Mellitus Type 2: Yes - HEMATOLOGICAL/ONCOLOGICAL Hx Anemia: Yes Hx Human Immunodeficiency Virus (HIV): No - INTEGUMENTARY Hx Dermatological Problems: No - MUSCULOSKELETAL/RHEUMATOLOGICAL Hx Falls: No - GASTROINTESTINAL Hx Gastrointestinal Disorders: Yes Hx Nausea: Yes Hx Vomiting: Yes - GENITOURINARY/GYNECOLOGICAL Hx Genitourinary Disorders: No - PSYCHIATRIC Hx Psychophysiologic Disorder: No Hx Substance Use: No - SURGICAL HISTORY Hx Surgeries: Yes Hx Amputation: Yes (tma right foot) Other/Comment: left suboccipital craniotomy and right ankle surgery - ANESTHESIA Hx Anesthesia: Yes Hx Anesthesia Reactions: No Hx Malignant Hyperthermia: No Meds Allergies/Adverse Reactions: Allergies Allergy/AdvReac Type Severity Reaction Status Date / Time Penicillins Allergy RASH Verified 10/02/18 15:09 - Medications Medications: Current Medications Allopurinol (Zyloprim) 100 mg PO DAILY [facility] Last Admin: 10/03/18 08:44 Dose: 100 mg Calcitriol (Rocaltrol) 0.25 mcg PO SUTUTHSA [facility] Last Admin: 10/02/18 22:20 Dose: 0.25 mcg Clonidine HCl (Catapres) 0.3 mg PO Q12 [facility] Last Admin: 10/03/18 08:42 Dose: Not Given Ergocalciferol (Drisdol 50,000 Intl Units Cap) 1 cap PO QWK [facility] Ferrous Sulfate (Feosol) 325 mg PO DAILY [facility] Last Admin: 10/03/18 08:41 Dose: 325 mg Folic Acid (Folic Acid) 1 mg PO DAILY [facility] Last Admin: 10/03/18 08:41 Dose: 1 mg Gabapentin (Neurontin) 100 mg PO Q8 [facility] Last Admin: 10/03/18 08:43 Dose: 100 mg Glipizide (Glucotrol) 10 mg PO BID [facility] Last Admin: 10/03/18 08:41 Dose: 10 mg Hydralazine HCl (Apresoline) 100 mg PO Q8H [facility] Last Admin: 10/03/18 11:54 Dose: Not Given Insulin Human Lispro (Humalog) 7 units SC ACTID [facility] Last Admin: 10/03/18 11:55 Dose: 7 units Lidocaine (Lidoderm) 1 ea TD DAILY [facility] Last Admin: 10/03/18 11:54 Dose: Not Given Losartan Potassium (Cozaar) 50 mg PO DAILY [facility] Last Admin: 10/03/18 08:42 Dose: Not Given Metoprolol Tartrate (Lopressor) 50 mg PO DAILY [facility] Last Admin: 10/03/18 08:42 Dose: Not Given Nifedipine (Procardia Xl) 30 mg PO DAILY [facility] Last Admin: 10/03/18 08:44 Dose: Not Given Ondansetron HCl (Zofran Inj) 4 mg IVP Q6 PRN PRN Reason: Nausea/Vomiting Last Admin: 10/02/18 20:59 Dose: 4 mg Pantoprazole Sodium (Protonix Ec Tab) 40 mg PO DAILY [facility] Last Admin: 10/03/18 08:44 Dose: 40 mg Sitagliptin Phosphate (Januvia) 25 mg PO BID [facility] Last Admin: 10/03/18 08:41 Dose: 25 mg Vitamin B Complex/Vit C/Folic Acid (Nephro-Elsa) 1 tab PO DAILY [facility] Last Admin: 10/03/18 08:41 Dose: 1 tab Results - Vital Signs Recent Vital Signs: Last Vital Signs Temp 98 F 10/03/18 15:38 Pulse 80 10/03/18 15:38 Resp 20 10/03/18 15:38 BP 159/88 H 10/03/18 15:38 Pulse Ox 99 10/03/18 15:38 - Labs Result Diagrams: 10/03/18 08:13 10/03/18 08:13 Labs: Laboratory Results - last 24 hr 10/02/18 10/02/18 10/02/18 15:40 16:15 16:15 WBC RBC Hgb Hct MCV MCH MCHC RDW Plt Count MPV Neut % (Auto) Lymph % (Auto) [place] % (Auto) Eos % (Auto) Baso % (Auto) Neut # (Auto) Lymph # (Auto) [place] # (Auto) Eos # (Auto) Baso # (Auto) Neutrophils % (Manual) Band Neutrophils % Lymphocytes % (Manual) Monocytes % (Manual) Platelet Estimate Polychromasia Hypochromasia (manual) Poikilocytosis (manual Anisocytosis (manual) Microcytosis (manual) Sodium 143 Potassium 4.7 Chloride 98 Carbon Dioxide 22 Anion Gap 28 H BUN 23 H Creatinine 3.7 H Est GFR ( Amer) 21 Est GFR (Non-Af Amer) 18 POC Glucose (mg/dL) 300 H Random Glucose 298 H Calcium 10.1 Total Bilirubin 0.6 AST 20 ALT 19 L Alkaline Phosphatase 133 H D Total Protein 9.2 H Albumin 4.7 Globulin 4.6 H Albumin/Globulin Ratio 1.0 Lipase 63 Blood Type O NEGATIVE Antibody Screen Negative BBK History Checked Patient has bt 10/02/18 10/02/18 10/02/18 16:20 18:26 20:32 WBC 18.0 H D 17.5 H RBC 5.08 5.07 Hgb 12.9 D 12.7 Hct 41.4 41.1 MCV 81.4 81.0 MCH 25.4 L 25.1 L MCHC 31.2 L 31.0 L RDW 17.3 H 17.1 H Plt Count 271 289 MPV 8.6 Neut % (Auto) 91.4 H Lymph % (Auto) 4.3 L [place] % (Auto) 3.8 Eos % (Auto) 0.1 Baso % (Auto) 0.4 Neut # (Auto) 16.4 H Lymph # (Auto) 0.8 L [place] # (Auto) 0.7 Eos # (Auto) 0.0 Baso # (Auto) 0.1 Neutrophils % (Manual) 66 Band Neutrophils % 3 H Lymphocytes % (Manual) 27 Monocytes % (Manual) 4 Platelet Estimate Normal Polychromasia Slight Hypochromasia (manual) Slight Poikilocytosis (manual Slight Anisocytosis (manual) Slight Microcytosis (manual) Slight Sodium Potassium Chloride Carbon Dioxide Anion Gap BUN Creatinine Est GFR ( Amer) Est GFR (Non-Af Amer) POC Glucose (mg/dL) 222 H Random Glucose Calcium Total Bilirubin AST ALT Alkaline Phosphatase Total Protein Albumin Globulin Albumin/Globulin Ratio Lipase Blood Type Antibody Screen BBK History Checked 10/02/18 10/03/18 10/03/18 21:56 06:09 08:13 WBC 12.0 H RBC 4.60 Hgb 11.5 L Hct 37.6 MCV 81.7 MCH 25.1 L MCHC 30.7 L RDW 17.4 H Plt Count 253 MPV Neut % (Auto) Lymph % (Auto) [place] % (Auto) Eos % (Auto) Baso % (Auto) Neut # (Auto) Lymph # (Auto) [place] # (Auto) Eos # (Auto) Baso # (Auto) Neutrophils % (Manual) Band Neutrophils % Lymphocytes % (Manual) Monocytes % (Manual) Platelet Estimate Polychromasia Hypochromasia (manual) Poikilocytosis (manual Anisocytosis (manual) Microcytosis (manual) Sodium Potassium Chloride Carbon Dioxide Anion Gap BUN Creatinine Est GFR ( Amer) Est GFR (Non-Af Amer) POC Glucose (mg/dL) 229 H 194 H Random Glucose Calcium Total Bilirubin AST ALT Alkaline Phosphatase Total Protein Albumin Globulin Albumin/Globulin Ratio Lipase Blood Type Antibody Screen BBK History Checked 10/03/18 10/03/18 08:13 11:25 WBC RBC Hgb Hct MCV MCH MCHC RDW Plt Count MPV Neut % (Auto) Lymph % (Auto) [place] % (Auto) Eos % (Auto) Baso % (Auto) Neut # (Auto) Lymph # (Auto) [place] # (Auto) Eos # (Auto) Baso # (Auto) Neutrophils % (Manual) Band Neutrophils % Lymphocytes % (Manual) Monocytes % (Manual) Platelet Estimate Polychromasia Hypochromasia (manual) Poikilocytosis (manual Anisocytosis (manual) Microcytosis (manual) Sodium 143 Potassium 5.0 Chloride 104 Carbon Dioxide 24 Anion Gap 20 BUN 33 H Creatinine 4.8 H Est GFR ( Amer) 16 Est GFR (Non-Af Amer) 13 POC Glucose (mg/dL) 171 H Random Glucose 183 H Calcium 9.3 Total Bilirubin 0.3 AST 13 L D ALT 23 Alkaline Phosphatase 95 Total Protein 8.0 Albumin 4.0 Globulin 4.0 H Albumin/Globulin Ratio 1.0 Lipase Blood Type Antibody Screen BBK History Checked
[2018-10-03 19:31] VITALS: BP 151/90; O2SAT 98
--- NOTE | 2018-10-04 00:27 | CON ---
DATE: 10/03/2018 CONSULTATION REQUESTED BY: Joel Lake MD REASON FOR CONSULTATION: Coffee-ground emesis, vomiting. HISTORY OF PRESENT ILLNESS: This is 47-year-old male with multiple recurrent admissions , history of end-stage renal disease, on dialysis; diabetes mellitus; hyperlipidemia; prior CVA; anemia epigastric pain and discomfort, nausea, vomiting and coffee-ground emesis, which he has basically often and frequent. The patient is actually doing well at this point, lying in bed comfortable, in no apparent distress. PAST MEDICAL HISTORY: As above. SURGICAL HISTORY: As above. MEDICATIONS: Have been reviewed. REVIEW OF SYSTEMS: All other systems have been reviewed and negative apart from the HPI. PHYSICAL EXAMINATION: VITAL SIGNS: Here in the hospital grossly unremarkable. GENERAL: A pleasant elderly appearing male, lying in bed comfortably, in no apparent distress. HEENT: Head is normocephalic and atraumatic. Eyes, pupils are equally reactive to light bilaterally. No conjunctival pallor or icterus. NECK: Supple. Normal range of motion. No lymphadenopathy appreciated. LUNGS: Coarse breath sounds bilaterally. HEART: S1 and S2. Regular rate and rhythm. No S3. ABDOMEN: Soft and nontender. Bowel sounds present. No rebound. No guarding. EXTREMITIES: Amputation in the lower extremities. RECTAL: Deferred. LABORATORY DATA: Labs and relevant radiology have been reviewed. Labs include an improving leukocytosis with WBC is 12.9, hemoglobin 11.5, which is his baseline. Sugars are over 200. ASSESSMENT AND PLAN: This is a 47-year-old man with likely gastroparesis and coffee-ground emesis. Hemoglobin is stable. Endoscopy showed some esophagitis. From Gastroenterology standpoint, Reglan and proton pump inhitibor twice a day. Advance diet as tolerated. Discharge planning when able. Antiemetics as well. Thank you for the consult. Jung Jc MD/ PhD cc: Joel Lake MD
== END 2018-10-03 20:00 | disposition home or self-care (01) ==
LOC: H.ER 15:05 → H.ERHOLD 17:20 → INTOOBSV 17:20 → H.TEL 18:48
PROVIDERS: ADMIT Internal Medicine; ATTEND Internal Medicine
DX: K92.2 Gastrointestinal hemorrhage, unspecified (principal); N18.6 End stage renal disease; N25.81 Secondary hyperparathyroidism of renal origin; I12.0 Hypertensive chronic kidney disease with stage 5 chronic kidney disease or end stage renal disease; E11.22 Type 2 diabetes mellitus with diabetic chronic kidney disease; E11.43 Type 2 diabetes mellitus with diabetic autonomic (poly)neuropathy; K22.10 Ulcer of esophagus without bleeding; K31.84 Gastroparesis; K44.9 Diaphragmatic hernia without obstruction or gangrene; E78.5 Hyperlipidemia, unspecified; E78.00 Pure hypercholesterolemia, unspecified; D63.1 Anemia in chronic kidney disease; E83.39 Other disorders of phosphorus metabolism; Z99.2 Dependence on renal dialysis; Z86.73 Personal history of transient ischemic attack (TIA), and cerebral infarction without residual deficits; Z79.84 Long term (current) use of oral hypoglycemic drugs; Z88.0 Allergy status to penicillin
CPT/HCPCS: 36415; 71045; 80053; 82948; 83690; 85025; 85027; 86850; 86900; 96374; 96375; 99285; C9113; G0378; J2405; J7030

== ENCOUNTER 2018-11-11 09:07 | Inpatient (IN) | payer OTHER ==
[2018-11-11 09:07] VITALS: BMI 40.4
[2018-11-11] MEDS ORDERED: Sodium Chloride 0.9% 1,000 ML IV STA ×4 (09:23→11:29)
--- NOTE | 2018-11-11 09:28 | ED PDOC ---
HPI: Abdomen Time Seen by Provider: 11/11/18 09:19 Chief Complaint (Nursing): GI Problem History Per: Patient Onset/Duration Of Symptoms: Days (1) Current Symptoms Are (Timing): Still Present Severity: Moderate Pain Scale Rating Of: 6 Location Of Pain/Discomfort: Diffuse Quality Of Discomfort: Unable To Describe Associated Symptoms: Nausea, Vomiting Exacerbating Factors: None Alleviating Factors: None Additional Complaint(s): Diffuse abd pain assoc with vomiting of coffee grounds since last night. Denies diarrhea or fever. H/o GI bleed. H/o CRF dialyzed yesterday. Past Medical History Vital Signs: Last Vital Signs Temp 97.8 F 11/11/18 09:20 Pulse 114 H 11/11/18 09:20 Resp 22 11/11/18 09:20 BP 90/62 L 11/11/18 09:20 Pulse Ox - Medical History PMH: Anemia, CVA, Diabetes (type II), Gastritis, HTN, Hypercholesterolemia, Hyperlipidemia, End Stage Renal Disease, Chronic Kidney Disease Denies: Arthritis, CHF, COPD, HIV, Hypothyroidism, Rheumatoid Arthritis - Family History Family History: States: Unknown Family Hx - Immunization History Hx Tetanus Toxoid Vaccination: No Hx Influenza Vaccination: No Hx Pneumococcal Vaccination: No - Home Medications Home Medications: Ambulatory Orders Medication Instructions Recorded Ferrous Sulfate [Feosol] 325 mg PO TID 10/16/18 Allopurinol [Zyloprim] 100 mg PO DAILY #30 tab 11/06/18 Aspirin [Aspirin Chewable] 81 mg PO DAILY #30 chew 11/06/18 Calcitriol 0.25 mcg PO TID 30 Days capsule 11/06/18 Folic Acid 1 mg PO DAILY #30 tab 11/06/18 Gabapentin [Neurontin] 100 mg PO TID 30 Days capsule 11/06/18 GlipiZIDE [Glucotrol] 10 mg PO BID 30 Days tab 11/06/18 Metoprolol Tartrate [Lopressor] 12.5 mg PO BIDCC 30 Days tab 11/06/18 NIFEdipine ER [Procardia XL] 60 mg PO QPM [address] 11/06/18 Pantoprazole [Protonix EC Tab] 40 mg PO DAILY 30 Days ect 11/06/18 Rosuvastatin Calcium [Crestor] 5 mg PO HS 30 Days tab 11/06/18 SITagliptin [Januvia] 50 mg PO BID 30 Days tab 11/06/18 Vancomycin 1gm in NS 250ml 1 gm IV MWF #3 bag 11/06/18 [Vancomycin 1gm] Dexamethasone/Tobramycin [Tobradex 1 drop OU BID 11/11/18 Opht Susp] - Allergies Allergies/Adverse Reactions: Allergies Allergy/AdvReac Type Severity Reaction Status Date / Time Penicillins Allergy RASH Verified 10/02/18 15:09 Review of Systems ROS Statement: Except As Marked, All Systems Reviewed And Found Negative Constitutional: Negative for: Fever Gastrointestinal: Positive for: Vomiting, Abdominal Pain, Hematemesis Physical Exam - Reviewed Nursing Documentation Reviewed: Yes Vital Signs Reviewed: Yes - Physical Exam Appears: Positive for: Non-toxic Head Exam: Positive for: ATRAUMATIC, NORMAL INSPECTION, NORMOCEPHALIC Skin: Positive for: Warm. Negative for: Normal Color (Petechiae lower ext bilat) Eye Exam: Positive for: EOMI, Normal appearance, PERRL ENT: Positive for: Normal ENT Inspection Neck: Positive for: Normal, Painless ROM Cardiovascular/Chest: Positive for: Regular Rate, Rhythm, Tachycardia Respiratory: Positive for: CNT, Normal Breath Sounds Gastrointestinal/Abdominal: Positive for: Soft, Tenderness (Diffuse), Distended Back: Positive for: Normal Inspection Extremity: Positive for: Other (Amputation right foot) Neurologic/Psych: Positive for: Alert, Oriented - Laboratory Results Result Diagrams: 11/11/18 09:55 11/11/18 11:07 - Progress Re-evaluation Time: 11:50 Condition: Re-examined - Critical Care Total Time (In Min): 60 Documented Critical Care: Time excludes all time spent performint seperately billable procedures Medical Decision Making Medical Decision Making: CT reveals SBO with possible perforation and ischemic bowel. Episodes of hypotension with sepsis, most likely bowel as source Lactate 5.8 Will tx with IVF NS bolus 3500 ml thus far Will also tx wit IV Vanco, Genta and Flagyl. Call placed to Surgery Dr Kyle, Residents seeing pt now Procedures - Central Line Central Line Lumen: triple Central Line Procedure: betadine prep, sterile drapes applied, sterile dressing applied Central Line Postion: femoral (R) Anesthesia: Lidocaine cc's of anesthesia: 3 Complications: none Central Line Post Position: good blood return Progress: Poor peripheral access with episodes of hypotension and GI bleed Disposition - Clinical Impression Clinical Impression: Acute on chronic renal insufficiency, ESRD (end stage renal disease) on dialysis, SBO (small bowel obstruction), Ischemia, bowel, Sepsis, GI bleed - Patient ED Disposition Is Patient to be Admitted: Yes - Disposition Disposition Time: 11:52 Condition: CRITICAL Forms: [facility] (Yi) - Pt Status Changed To: Hospital Disposition Of: Inpatient - Admit Certification Admit to Inpatient:: After my assessment, the patient will require hospitalization for at least two midnights. This is because of the severity of symptoms shown, intensity of services needed, and/or the medical risk in this patient being treated as an outpatient. - POA Present On Arrival: None
--- NOTE | 2018-11-11 10:10 | RAD ---
Date of service: 11/11/2018 HISTORY: cough COMPARISON: 10/02/2018. FINDINGS: LUNGS: The lungs are well inflated and clear. PLEURA: No pleural effusions or pneumothorax. CARDIOVASCULAR: The heart is normal in size. No aortic atherosclerotic calcification present. OSSEOUS STRUCTURES: Within normal limits for the patient's age. VISUALIZED UPPER ABDOMEN: Normal. OTHER FINDINGS: None. IMPRESSION: No active pulmonary disease.
[2018-11-11 10:14] LABS: BASO # 0.1 K/uL (0.0-0.2); BASO % 0.4 % (0.0-2.0); HEMOGLOBIN 11.4 g/dL (12.0-18.0); LYMPH # 1.1 K/uL (1.0-4.3); MEAN CELL VOLUME 77.2 fl (80.0-94.0); MEAN CORPUSCULAR HEMOGLOBIN 23.8 pg (27.0-31.0); MEAN CORPUSCULAR HGB CONC 30.9 g/dL (33.0-37.0); MONO # 0.7 K/uL (0.0-0.8); MONO % 3.5 % (0.0-10.0); NEUT # 19.2 K/uL (1.8-7.0); NEUT % 91.1 % (50.0-75.0); PLATELET COUNT 490 K/uL (130-400); RBC 4.79 Mil/uL (4.40-5.90); RED CELL DISTRIBUTION WIDTH 20.2 % (11.5-14.5)
[2018-11-11] MEDS ORDERED: STERILE WATER FOR INJ IVPB STA (11:12)
[2018-11-11] MEDS ORDERED: GENTAMICIN IVPB STA (11:12)
[2018-11-11] MEDS ORDERED: metroNIDAZOLE 500mg/100ml NS 100 ML IVPB STA (11:15)
--- NOTE | 2018-11-11 11:22 | CT ---
Date of service: 11/11/2018 PROCEDURE: CT Abdomen and Pelvis without intravenous contrast HISTORY: r/o kidney stone COMPARISON: Comparison is made to the previous study dated TECHNIQUE: Axial and reformatted coronal and sagittal CT images of the abdomen and pelvis were obtained without IV or oral contrast administration.. Contrast dose: 0 Radiation dose: Total exam DLP = 1009.0 mGy-cm. This CT exam was performed using one or more of the following dose reduction techniques: Automated exposure control, adjustment of the mA and/or kV according to patient size, and/or use of iterative reconstruction technique. FINDINGS: LOWER THORAX: There is a new haziness and small opacity at the lingula may represent atelectasis or less likely pneumonia. No evidence of pleural effusion the heart is upper normal limit in size. LIVER: Interval appearance of gas in the portal vein. There is branching gas in the left and right liver lobes suggestive of portal vein gas. No evidence of discrete mass in liver. The liver is mildly enlarged. GALLBLADDER AND BILE DUCTS: Unremarkable. PANCREAS: Unremarkable. No gross lesion or ductal dilatation. SPLEEN: Unremarkable. ADRENALS: Unremarkable. No mass. KIDNEYS AND URETERS: No evidence of nephrolithiasis or hydronephrosis. Again noted is bilateral nonspecific perinephric stranding. VASCULATURE: Unremarkable. No aortic aneurysm. Mild atherosclerotic disease and scattered calcification noted in the abdominal aorta. The IVC is small in size. BOWEL: There are [id number] dilated small bowel loops and collapsed distal small bowel suggestive of mechanical bowel obstruction. There is a pneumatosis seen in the dilated small bowel loops at the mid and upper abdomen. Findings suggestive of small bowel obstruction. The large bowel is partially collapsed. APPENDIX: No evidence of appendicitis. PERITONEUM: There are punctate foci of extraluminal air seen in the mid and upper abdomen. There are also branching gas in the mid and upper abdomen likely in the portal and mesenteric vessels branches. No evidence of significant free fluid. LYMPH NODES: Unremarkable. No enlarged lymph nodes. BLADDER: Unremarkable. REPRODUCTIVE: Unremarkable. BONES: No acute fracture. OTHER FINDINGS: None. IMPRESSION: Findings suggestive of high-grade small bowel obstruction associated with intestinal pneumatosis. Gas noted in the portal vein and SMV. Suspicious for scattered extraluminal air in the mid and upper abdomen. Correlate clinically for bowel ischemia. The above findings were reported to and discussed with the referring emergency ductal doctors Safran at 11:05 a.m. on 11/11/2018
[2018-11-11 11:23] LABS: VENOUS BLOOD GAS BASE EXCESS 4.1 mmol/L (0.0-2.0); VENOUS BLOOD GAS PCO2 48 mmHg (40-60); VENOUS BLOOD GAS PO2 24 mm/Hg (30-55)
[2018-11-11] MEDS ORDERED: metroNIDAZOLE 500mg/100ml NS 100 ML IVPB ONE (11:24)
[2018-11-11] MEDS ORDERED: Gentamicin 80mg/50ml NS 80 MG/50 ML BAG IVPB STA (11:26)
[2018-11-11 11:33] LABS: ALB/GLOB RATIO 0.8 (1.0-2.1); ALBUMIN 4.2 g/dL (3.5-5.0); CALCIUM 9.5 mg/dL (8.4-10.2)
[2018-11-11] MEDS ORDERED: Morphine 4 MG/ML VIAL IVP ONE (11:35)
[2018-11-11 11:42] LABS: INR 1.3; PROTHROMBIN TIME 15.1 Seconds (9.8-13.1)
[2018-11-11 11:45] LABS: TROPONIN I 0.013 ng/mL (0.00-0.120)
[2018-11-11 12:09] LABS: BANDS 1 % (0-2); LYMPHOCYTE 8 % (20-50); MONOCYTE 3 % (0-10); NEUTROPHIL 88 % (42-75); TOTAL CELLS COUNTED 100
[2018-11-11 12:14] LABS: ANISOCYTOSIS MODERATE; GIANT PLATELETS PRESENT; HYPERSEGMENTATION PRESENT; HYPOCHROMIC SLIGHT
[2018-11-11 12:15] LABS: PLATELET ESTIMATE INCREASED (NORMAL)
[2018-11-11] MEDS ORDERED: Vancomycin 1 g Inj ONE (12:33)
--- NOTE | 2018-11-11 13:20 | CP.PCM.CON ---
History of Present Illness - History of Present Illness History of Present Illness: SURGERY CONSULT NOTE FOR DR. HANDLEY Reason for consult: SBO, ischemia bowel 47M presents with abdominal pain and vomiting. He states pain started earlier today. The pain is diffuse in the abdomen, sharp and constant. Pain is associate d with nausea and vomiting. Vomitus was coffee ground in nature. Patient denies fevers, but is currently starting to develop chills. PMH: CVA, CKD, HTN, DM, PVD PSH: R TMA, R AVF, R IJ Permacath Social: admitted to tobacco abuse, denies alcohol, denies illicit drugs Allergies: Pencillins Past Patient History - Infectious Disease Hx of Infectious Diseases: None - Past Medical History & Family History Past Medical History?: Yes - Past Social History Smoking Status: Former Smoker - CARDIAC Hx Congestive Heart Failure: No Hx Hypercholesterolemia: Yes Hx Hypertension: Yes - PULMONARY Hx Chronic Obstructive Pulmonary Disease (COPD): No - NEUROLOGICAL Hx Neurological Disorder: Yes - HEENT Hx HEENT Problems: No - RENAL Hx Chronic Kidney Disease: Yes - ENDOCRINE/METABOLIC Hx Hypothyroidism: No - HEMATOLOGICAL/ONCOLOGICAL Hx Anemia: Yes Hx Human Immunodeficiency Virus (HIV): No - INTEGUMENTARY Hx Dermatological Problems: No - MUSCULOSKELETAL/RHEUMATOLOGICAL Hx Arthritis: No Hx Rheumatoid Arthritis: No - GASTROINTESTINAL Hx Gastritis: Yes - GENITOURINARY/GYNECOLOGICAL Hx Genitourinary Disorders: No - PSYCHIATRIC Hx Psychophysiologic Disorder: No - SURGICAL HISTORY Hx Surgeries: Yes Hx Amputation: Yes (tma right foot) Other/Comment: left suboccipital craniotomy and right ankle surgery - ANESTHESIA Hx Anesthesia: Yes Hx Anesthesia Reactions: No Hx Malignant Hyperthermia: No Meds Allergies/Adverse Reactions: Allergies Allergy/AdvReac Type Severity Reaction Status Date / Time Penicillins Allergy RASH Verified 10/02/18 15:09 - Medications Medications: Current Medications Sodium Chloride (Sodium Chloride 0.9%) 1,000 mls @ 100 mls/hr IV .Q10H STA Stop: 11/11/18 19:22 Sodium Chloride (Sodium Chloride 0.9%) 1,000 mls @ 150 mls/hr IV .Q6H40M STA Stop: 11/11/18 16:11 Last Admin: 11/11/18 10:22 Dose: 150 mls/hr Sodium Chloride (Sodium Chloride 0.9%) 1,000 mls @ 100 mls/hr IV .Q10H STA Stop: 11/11/18 20:33 Sodium Chloride (Sodium Chloride 0.9%) 1,000 mls @ 100 mls/hr IV .Q10H STA Stop: 11/11/18 21:28 Last Admin: 11/11/18 11:47 Dose: 100 mls/hr Physical Exam - Constitutional Appears: Other Additional comments: uncomfortable, in pain, chills - Eye Exam Eye Exam: EOMI, PERRL - ENT Exam ENT Exam: Mucous Membranes Moist - Respiratory Exam Respiratory Exam: Clear to Auscultation Bilateral, NORMAL BREATHING PATTERN - Cardiovascular Exam Cardiovascular Exam: REGULAR RHYTHM, +S1, +S2 - GI/Abdominal Exam GI & Abdominal Exam: Distended, Firm, Guarding, Rebound, Tenderness. absent: Soft (full) Additional comments: peritoneal - Extremities Exam Extremities exam: Negative for: pedal edema, tenderness - Neurological Exam Neurological exam: Alert, Oriented x3 - Psychiatric Exam Psychiatric exam: Anxious - Skin Skin Exam: Dry, Intact, Normal Color, Warm Results - Vital Signs Recent Vital Signs: Last Vital Signs Temp 98.4 F 11/11/18 12:12 Pulse 108 H 11/11/18 12:12 Resp 14 11/11/18 12:12 BP 124/92 H 11/11/18 12:12 Pulse Ox 98 11/11/18 12:00 - Labs Result Diagrams: 11/11/18 09:55 11/11/18 11:07 Labs: Laboratory Results - last 24 hr 11/11/18 11/11/18 11/11/18 09:16 09:53 09:55 WBC 21.0 H D RBC 4.79 Hgb 11.4 L Hct 37.0 MCV 77.2 L D MCH 23.8 L MCHC 30.9 L RDW 20.2 H Plt Count 490 H D MPV 8.0 Neut % (Auto) 91.1 H Lymph % (Auto) 5.0 L Burnet % (Auto) 3.5 Eos % (Auto) 0.0 Baso % (Auto) 0.4 Neut # (Auto) 19.2 H Lymph # (Auto) 1.1 Burnet # (Auto) 0.7 Eos # (Auto) 0.0 Baso # (Auto) 0.1 Neutrophils % (Manual) 88 H Band Neutrophils % 1 Lymphocytes % (Manual) 8 L Monocytes % (Manual) 3 Hypersegmented Polys Present Platelet Estimate Increased H Giant Platelets Present Hypochromasia (manual) Slight Anisocytosis (manual) Moderate PT 15.1 H INR 1.3 pO2 VBG pH VBG pCO2 VBG HCO3 VBG Total CO2 VBG O2 Sat (Calc) VBG Base Excess VBG Potassium Glucose Lactate FiO2 Blood Gas Comments Crit Value Called To Crit Value Called By Crit Value Read Back Blood Gas Notified Time Sodium Potassium Chloride Carbon Dioxide Anion Gap BUN Creatinine Est GFR ( Amer) Est GFR (Non-Af Amer) POC Glucose (mg/dL) 265 H Random Glucose Calcium Total Bilirubin AST ALT Alkaline Phosphatase Troponin I Total Protein Albumin Globulin Albumin/Globulin Ratio Venous Blood Potassium BBK History Checked 11/11/18 11/11/18 11/11/18 11:07 11:07 11:09 WBC RBC Hgb Hct MCV MCH MCHC RDW Plt Count MPV Neut % (Auto) Lymph % (Auto) Burnet % (Auto) Eos % (Auto) Baso % (Auto) Neut # (Auto) Lymph # (Auto) Burnet # (Auto) Eos # (Auto) Baso # (Auto) Neutrophils % (Manual) Band Neutrophils % Lymphocytes % (Manual) Monocytes % (Manual) Hypersegmented Polys Platelet Estimate Giant Platelets Hypochromasia (manual) Anisocytosis (manual) PT INR pO2 24 L VBG pH 7.40 VBG pCO2 48 VBG HCO3 26.8 VBG Total CO2 31.2 H VBG O2 Sat (Calc) 42.7 VBG Base Excess 4.1 H VBG Potassium 4.5 Glucose 312 H Lactate 5.8 H* FiO2 21.0 Blood Gas Comments Vbg Crit Value Called To Steph barclay r.n. Crit Value Called By Crit Value Read Back Y Blood Gas Notified Time 1123 Sodium 135 132.0 Potassium 4.5 Chloride 90 L 90.0 L Carbon Dioxide 28 Anion Gap 22 H BUN 32 H Creatinine 6.1 H Est GFR ( Amer) 12 Est GFR (Non-Af Amer) 10 POC Glucose (mg/dL) Random Glucose 309 H Calcium 9.5 Total Bilirubin 0.8 AST 100 H D ALT 80 H D Alkaline Phosphatase 175 H Troponin I 0.0130 Total Protein 9.3 H Albumin 4.2 Globulin 5.1 H Albumin/Globulin Ratio 0.8 L Venous Blood Potassium 4.5 BBK History Checked Patient has bt Assessment & Plan - Assessment and Plan (Free Text) Assessment: 47M with small bowel obstruction, ischemic bowel, perforated bowel as confirmed on CT scan Plan: - NPO - IV fluid resuscitation - ICU admission - IV antibiotics - Pain control - Anti Emetics - Optimize for OR - Plan for OR for exploration today Discussed with Surgical Attending Juventino Hodges, PGY3
[2018-11-11] MEDS ORDERED: Succinylcholine 200 mg/10 ml Inj IV ONE (14:03)
[2018-11-11] MEDS ORDERED: Propofol 10 mg/ml Inj (20 ML) ONE (14:03)
[2018-11-11] MEDS ORDERED: Midazolam 2 MG/2 ML VIAL ONE (14:03)
[2018-11-11] MEDS ORDERED: Rocuronium 10 mg/ml (5 ml) ONE (14:03)
[2018-11-11] MEDS ORDERED: Lidocaine 4% (Laryng-O-Jet) Kit MM ONE (14:04)
[2018-11-11] MEDS ORDERED: Neostigmine 1:1000 (1 mg/ml) Inj ONE (14:04)
[2018-11-11] MEDS ORDERED: Lidocaine 1% 5ml Abboject ONE (14:04)
[2018-11-11] MEDS ORDERED: Phenylephrine 10 mg/ml Inj ONE (14:05)
[2018-11-11 14:14] LABS: VENOUS BLOOD GAS PCO2 37 mmHg (40-60); VENOUS BLOOD GAS PO2 31 mm/Hg (30-55); VENOUS BLOOD PH 7.31 (7.32-7.43)
[2018-11-11 14:43] LABS: MEAN CELL VOLUME 77.6 fl (80.0-94.0); MEAN CORPUSCULAR HEMOGLOBIN 23.4 pg (27.0-31.0); MEAN CORPUSCULAR HGB CONC 30.1 g/dL (33.0-37.0); RBC 3.5 Mil/uL (4.40-5.90); RED CELL DISTRIBUTION WIDTH 19.3 % (11.5-14.5); WHITE BLOOD COUNT 13.8 K/uL (4.8-10.8)
[2018-11-11 14:46] LABS: HEMOGLOBIN 8.2 g/dL (12.0-18.0)
[2018-11-11] MEDS: Sodium Chloride 0.9% 1,000 ML IV SCH ×2 (15:00→16:00)
--- NOTE | 2018-11-11 15:18 | RAD ---
Date of service: 11/11/2018 HISTORY: S/P NGT COMPARISON: 11/11/2018 FINDINGS: The right-sided dialysis catheter terminates at the cavoatrial junction. LUNGS: The lungs are well inflated and there is mild pulmonary venous congestion. PLEURA: No pleural effusions or pneumothorax. CARDIOVASCULAR: The heart is normal in size. No aortic atherosclerotic calcification present. OSSEOUS STRUCTURES: Within normal limits for the patient's age. VISUALIZED UPPER ABDOMEN: Normal. OTHER FINDINGS: The nasogastric tube extends below the diaphragm however the distal tip is not visualized on this examination. IMPRESSION: The distal tip of the nasogastric tube is not well visualized on this examination. Mild pulmonary venous congestion. Dialysis catheter terminates at the cavoatrial junction.
[2018-11-11] MEDS ORDERED: Sodium Chloride 0.9% 1,000 ML IV ONE (16:00)
[2018-11-11] MEDS ORDERED: ePHEDrine 50 mg/ml Inj ONE (16:21)
[2018-11-11] MEDS ORDERED: metroNIDAZOLE 500mg/100ml NS 100 ML IVPB SCH (17:00)
--- NOTE | 2018-11-11 17:29 | PCM.SEPTIC ---
Sepsis Progress Note - Non Invasive Reassessment Vital Sign (Latest): Temp Pulse Resp BP Pulse Ox 98.5 F 133 H 21 128/47 L 100 11/11/18 12:50 11/11/18 13:00 11/11/18 13:00 11/11/18 12:50 11/11/18 13:00
--- NOTE | 2018-11-11 17:49 | PCM.SURG1 ---
Surgeon's Initial Post Op Note - Surgeon's Notes Surgeon: Dr. Kyle Motor Coach Bus Driver: Dr. Beck, Dr. Mckenzie, Dr. Morin Type of Anesthesia: General Endo Pre-Operative Diagnosis: SBO, Ischemic bowel, Perforated Viscous Operative Findings: see operative note Post-Operative Diagnosis: same Operation Performed: exploratory laparotomy w/ small bowel resection and primary anastamosis Specimen/Specimens Removed: small bowel Estimated Blood Loss: EBL {In ML}: 50 Blood Products Given: N/A Drains Used: No Drains Post-Op Condition: Fair Date of Surgery/Procedure: 11/11/18 Time of Surgery/Procedure: 17:49
[2018-11-11] MEDS ORDERED: Sodium Chloride 0.9% 1,000 ML IV SCH (18:30)
[2018-11-11 18:46] LABS: ABG ALLEN TEST YES; ARTERIAL BLOOD GAS HCO3 17.4 mmol/L (21-28); ARTERIAL BLOOD GAS O2 SAT 96.3 % (95-98); ARTERIAL BLOOD GAS PCO2 53 mm/Hg (35-45); ARTERIAL BLOOD GAS PH 7.17 (7.35-7.45); ARTERIAL BLOOD GAS PO2 89 mm/Hg (80-100); ARTERIAL BLOOD GAS TCO2 20.9 mmol/L (22-28)
--- NOTE | 2018-11-11 18:58 | PCM.PROC ---
Procedures Attestation:: I certify that I have explained the specified Operation(s) or Procedure(s), risks, benefits and reasonable alternatives to the Patient and/or other person responsible. The opportunity was given to ask questions and all questions answered - Arterial Line Left Radial Aseptic technique was employed throughout the procedure: Hand Hygiene done prior to procedure, Full sterile barriers (mask, hair cover, sterile gown, sterile gloves) Time Out Performed: Yes Pt. placed on Pulse Ox Monitor: Yes Central Line Prep: Chlorhexidine-Alcohol Combination Ultrasound Used for Placement: Yes Gauge (Size): 20 gauge Technique Used: Guide Wire Technique Secured by: Suture Post procedure dressing: Clear vapor permeable Patient Tolerated Procedure: well Immediate Complications: none
--- NOTE | 2018-11-11 19:05 | CARD ---
APPROVED REPORT Date of service: 11/11/2018 EKG Measurement Heart [id number] <Conclusion> Sinus tachycardia Possible Left atrial enlargement Nonspecific ST abnormality Abnormal ECG
[2018-11-11 19:10] LABS: BASO % 0.1 % (0.0-2.0); EOS % 0.2 % (0.0-4.0); LYMPH # 1.2 K/uL (1.0-4.3); LYMPH % 9.1 % (20.0-40.0); MEAN CELL VOLUME 79.2 fl (80.0-94.0); MEAN CORPUSCULAR HEMOGLOBIN 23.7 pg (27.0-31.0); MEAN CORPUSCULAR HGB CONC 29.9 g/dL (33.0-37.0); MEAN PLATELET VOLUME 8.3 fl (7.2-11.7); MONO # 0.9 K/uL (0.0-0.8); MONO % 6.8 % (0.0-10.0); NEUT # 11.1 K/uL (1.8-7.0); NEUT % 83.8 % (50.0-75.0); NRBC % 0.1 % (0.0-0.0); RBC 4.23 Mil/uL (4.40-5.90); RED CELL DISTRIBUTION WIDTH 19.6 % (11.5-14.5); WHITE BLOOD COUNT 13.3 K/uL (4.8-10.8)
[2018-11-11 19:32] LABS: ALB/GLOB RATIO 0.8 (1.0-2.1); ALBUMIN 2.9 g/dL (3.5-5.0); CALCIUM 7.3 mg/dL (8.4-10.2)
[2018-11-11] MEDS ORDERED: Sodium Bicarbonate 7.5% (0.9 MEQ/ML) 50ML INJ IV ONE (19:39)
[2018-11-11] MEDS ORDERED: Magnesium Sulfate 2 gm/50 ml 2 GM/50 ML BAG IVPB ONE (19:44)
[2018-11-11] MEDS: metroNIDAZOLE 500mg/100ml NS 100 ML IVPB SCH (21:00)
[2018-11-11 21:58] LABS: ABG ALLEN TEST YES; ARTERIAL BLOOD GAS HCO3 21.5 mmol/L (21-28); ARTERIAL BLOOD GAS O2 SAT 98.5 % (95-98); ARTERIAL BLOOD GAS PCO2 35 mm/Hg (35-45); ARTERIAL BLOOD GAS PH 7.37 (7.35-7.45); ARTERIAL BLOOD GAS PO2 89 mm/Hg (80-100); ARTERIAL BLOOD GAS TCO2 21.3 mmol/L (22-28)
--- NOTE | 2018-11-12 04:19 | PN ---
DATE: 11/11/2018 TIME: 14:10 pm. SUBJECTIVE: A 47-year-old male admitted with abdominal pain, discomfort. CT of abdomen showed small bowel obstruction with possible perforation, being evaluated by Surgery for possible exploratory laparotomy, noninvasive method. PHYSICAL EXAMINATION: VITAL SIGNS: Temperature 98.5, heart rate 122, blood pressure 128/47, main arterial pressure 74, respiratory rate 21. Urine output, none documented. CARDIOVASCULAR SYSTEM: Rate and rhythm regular. No gallop. No jugular venous distention. RESPIRATORY: Normal bowel sounds. No crepitations. No rhonchi. Capillary refill less than 2 seconds within normal limits. Pulse radial pressure, DP present on the left. SKIN: Color normal. LABORATORY DATA: Repeat lactate level 8.3. WBC 13.8, hemoglobin 8.2, hematocrit 27.1, and platelet count of 333. PLAN: Continue IV fluid. Levophed to titrate, to systolic pressure more than 100. Continue status post 6 liters of IV fluid. Repeat chest x-ray shows mild pulmonary vascular congestion. Continue antibiotic, Cipro and Flagyl. ID evaluation pending. Follow up blood culture report. Follow up also operative course. Pablo Munoz MD
[2018-11-12 04:33] LABS: ABG ALLEN TEST YES; ARTERIAL BLOOD GAS HCO3 21.3 mmol/L (21-28); ARTERIAL BLOOD GAS O2 SAT 98.8 % (95-98); ARTERIAL BLOOD GAS PCO2 33 mm/Hg (35-45); ARTERIAL BLOOD GAS PH 7.38 (7.35-7.45); ARTERIAL BLOOD GAS PO2 118 mm/Hg (80-100); ARTERIAL BLOOD GAS TCO2 20.5 mmol/L (22-28)
[2018-11-12] MEDS: metroNIDAZOLE 500mg/100ml NS 100 ML IVPB SCH ×3 (04:39→20:17)
[2018-11-12 05:55] LABS: BASO % 0.2 % (0.0-2.0); HEMOGLOBIN 9.4 g/dL (12.0-18.0); LYMPH # 1.2 K/uL (1.0-4.3); LYMPH % 8.4 % (20.0-40.0); MEAN CELL VOLUME 77.9 fl (80.0-94.0); MEAN CORPUSCULAR HEMOGLOBIN 23.9 pg (27.0-31.0); MEAN CORPUSCULAR HGB CONC 30.7 g/dL (33.0-37.0); MEAN PLATELET VOLUME 8.4 fl (7.2-11.7); MONO # 0.6 K/uL (0.0-0.8); MONO % 4.6 % (0.0-10.0); NEUT # 12.1 K/uL (1.8-7.0); NEUT % 86.8 % (50.0-75.0); RBC 3.93 Mil/uL (4.40-5.90); RED CELL DISTRIBUTION WIDTH 19.4 % (11.5-14.5); WHITE BLOOD COUNT 13.9 K/uL (4.8-10.8)
[2018-11-12 06:06] LABS: ALB/GLOB RATIO 0.8 (1.0-2.1); ALBUMIN 2.8 g/dL (3.5-5.0); CALCIUM 7.8 mg/dL (8.4-10.2)
--- NOTE | 2018-11-12 06:26 | CP.PCM.HP ---
<Ryan Pinzon - Last Filed: 11/12/18 14:58> History of Present Illness - History of Present Illness History of Present Illness: HPI: Pt is a 47 y/o male with hx of ESRD on HD, CVA, NIDDM, HTN, HLD, GERD/Gastritis, who presented to [facility] ED yesterday with complaints of coffee ground emesis x1 day and diffuse abdominal pain. Denies diarrhea, bright red blood per rectum or tarry stools, fever/chills. 12pt ROS completed and otherwise negative except for above. PMD: Dr. Lake PMHx - T2DM, acute CVA, ESRD on HD, HTN PSHx - Cranial surgery for CVA, EGD last 09/18 with LA grade C erosive esophagitis, gastritis and moderate stenosis at pylorus (09/2018), Anemia, HTN, HLD, NIDDM, gastroparesis, Right LE BKA FMHx - unremarkable SocHx -Former smoker. Denies etoh. ED Course: -Vitals: HR 114, BP 90/62, RR 22, O2 sat 100 on Rm Air -Labs significant for leukocytosis 21, hemoglobin 11.4 (dropped to 88.2 after 4 hours) lactic acidosis 8.3, Met Acidosis on ABG, Crea 6.1 (baseline), AST/ALT 287/258 -Abdomen/Pelvic CT significant for High grade SBO w/ possible perforation (intestinal pneumatosis) and ischemic bowel ED Interventions -Fluid resuscitation x5 L -Empiric Antibiotics: Vanco, Gent, Flagyl -Stat Surgery Consultation -Femoral line placed -Admission to ICU Present on Admission - Present on Admission Any Indicators Present on Admission: No Past Patient History - Infectious Disease Hx of Infectious Diseases: None - Past Medical History & Family History Past Medical History?: Yes - Past Social History Smoking Status: Former Smoker - CARDIAC Hx Congestive Heart Failure: No Hx Hypercholesterolemia: Yes Hx Hypertension: Yes - PULMONARY Hx Chronic Obstructive Pulmonary Disease (COPD): No - NEUROLOGICAL Hx Neurological Disorder: Yes - HEENT Hx HEENT Problems: No - RENAL Hx Chronic Kidney Disease: Yes - ENDOCRINE/METABOLIC Hx Hypothyroidism: No - HEMATOLOGICAL/ONCOLOGICAL Hx Anemia: Yes Hx Human Immunodeficiency Virus (HIV): No - INTEGUMENTARY Hx Dermatological Problems: No - MUSCULOSKELETAL/RHEUMATOLOGICAL Hx Arthritis: No Hx Rheumatoid Arthritis: No - GASTROINTESTINAL Hx Gastritis: Yes - GENITOURINARY/GYNECOLOGICAL Hx Genitourinary Disorders: No - PSYCHIATRIC Hx Psychophysiologic Disorder: No - SURGICAL HISTORY Hx Surgeries: Yes Hx Amputation: Yes (tma right foot) Other/Comment: left suboccipital craniotomy and right ankle surgery - ANESTHESIA Hx Anesthesia: Yes Hx Anesthesia Reactions: No Hx Malignant Hyperthermia: No Meds Allergies/Adverse Reactions: Allergies Allergy/AdvReac Type Severity Reaction Status Date / Time Penicillins Allergy RASH Verified 10/02/18 15:09 Physical Exam - Constitutional Appears: No Acute Distress - Head Exam Head Exam: NORMAL INSPECTION - Eye Exam Eye Exam: Normal appearance. absent: Nystagmus, Scleral icterus Pupil Exam: PERRL - ENT Exam ENT Exam: Mucous Membranes Moist - Neck Exam Neck exam: Positive for: Full Rom. Negative for: Meningismus - Respiratory Exam Respiratory Exam: Decreased Breath Sounds, Clear to Auscultation Bilateral. absent: Rales, Wheezes - Cardiovascular Exam Cardiovascular Exam: Tachycardia - GI/Abdominal Exam GI & Abdominal Exam: Diminished Bowel Sounds, Firm, Guarding, Rigid, Tenderness (Diffuse). absent: Distended, Hernia, Organomegaly, Soft - Extremities Exam Extremities exam: Positive for: normal capillary refill, normal inspection, pedal pulses present Additional comments: R. BKA - Neurological Exam Neurological exam: Alert, Oriented x3 - Psychiatric Exam Psychiatric exam: Anxious - Skin Skin Exam: Diaphoretic, Normal Color, Pallor Results - Vital Signs Recent Vital Signs: Last Vital Signs Temp 98.3 F 11/12/18 04:00 Pulse 107 H 11/12/18 05:58 Resp 20 11/12/18 05:58 BP 120/67 11/12/18 05:00 Pulse Ox 100 11/12/18 05:58 - Labs Result Diagrams: 11/12/18 04:30 11/12/18 04:30 Labs: Laboratory Results - last 24 hr 11/11/18 11/11/18 11/11/18 09:16 09:53 09:55 WBC 21.0 H D RBC 4.79 Hgb 11.4 L Hct 37.0 MCV 77.2 L D MCH 23.8 L MCHC 30.9 L RDW 20.2 H Plt Count 490 H D MPV 8.0 Neut % (Auto) 91.1 H Lymph % (Auto) 5.0 L [place] % (Auto) 3.5 Eos % (Auto) 0.0 Baso % (Auto) 0.4 Neut # (Auto) 19.2 H Lymph # (Auto) 1.1 [place] # (Auto) 0.7 Eos # (Auto) 0.0 Baso # (Auto) 0.1 Neutrophils % (Manual) 88 H Band Neutrophils % 1 Lymphocytes % (Manual) 8 L Monocytes % (Manual) 3 Hypersegmented Polys Present Platelet Estimate Increased H Giant Platelets Present Hypochromasia (manual) Slight Anisocytosis (manual) Moderate PT 15.1 H INR 1.3 APTT pCO2 pO2 HCO3 ABG pH ABG Total CO2 ABG O2 Saturation ABG Base Excess Dorian Test ABG Potassium VBG pH VBG pCO2 VBG HCO3 VBG Total CO2 VBG O2 Sat (Calc) VBG Base Excess VBG Potassium A-a O2 Difference Glucose Lactate Vent Mode Mechanical Rate FiO2 Tidal Volume PEEP Blood Gas Comments Crit Value Called To Crit Value Called By Crit Value Read Back Blood Gas Notified Time Sodium Potassium Chloride Carbon Dioxide Anion Gap BUN Creatinine Est GFR ( Amer) Est GFR (Non-Af Amer) POC Glucose (mg/dL) 265 H Random Glucose Calcium Phosphorus Magnesium Total Bilirubin AST ALT Alkaline Phosphatase Troponin I Total Protein Albumin Globulin Albumin/Globulin Ratio Arterial Blood Potassium Venous Blood Potassium Random Vancomycin Blood Type Antibody Screen Crossmatch BBK History Checked 11/11/18 11/11/18 11/11/18 11:07 11:07 11:09 WBC RBC Hgb Hct MCV MCH MCHC RDW Plt Count MPV Neut % (Auto) Lymph % (Auto) [place] % (Auto) Eos % (Auto) Baso % (Auto) Neut # (Auto) Lymph # (Auto) [place] # (Auto) Eos # (Auto) Baso # (Auto) Neutrophils % (Manual) Band Neutrophils % Lymphocytes % (Manual) Monocytes % (Manual) Hypersegmented Polys Platelet Estimate Giant Platelets Hypochromasia (manual) Anisocytosis (manual) PT INR APTT pCO2 pO2 24 L HCO3 ABG pH ABG Total CO2 ABG O2 Saturation ABG Base Excess Dorian Test ABG Potassium VBG pH 7.40 VBG pCO2 48 VBG HCO3 26.8 VBG Total CO2 31.2 H VBG O2 Sat (Calc) 42.7 VBG Base Excess 4.1 H VBG Potassium 4.5 A-a O2 Difference Glucose 312 H Lactate 5.8 H* Vent Mode Mechanical Rate FiO2 21.0 Tidal Volume PEEP Blood Gas Comments Vbg Crit Value Called To Steph barclay r.n. Crit Value Called By Crit Value Read Back Y Blood Gas Notified Time 1123 Sodium 135 132.0 Potassium 4.5 Chloride 90 L 90.0 L Carbon Dioxide 28 Anion Gap 22 H BUN 32 H Creatinine 6.1 H Est GFR ( Amer) 12 Est GFR (Non-Af Amer) 10 POC Glucose (mg/dL) Random Glucose 309 H Calcium 9.5 Phosphorus Magnesium Total Bilirubin 0.8 AST 100 H D ALT 80 H D Alkaline Phosphatase 175 H Troponin I 0.0130 Total Protein 9.3 H Albumin 4.2 Globulin 5.1 H Albumin/Globulin Ratio 0.8 L Arterial Blood Potassium Venous Blood Potassium 4.5 Random Vancomycin Blood Type O NEGATIVE Antibody Screen Negative Crossmatch See Detail BBK History Checked Patient has bt 11/11/18 11/11/18 11/11/18 14:02 14:05 15:00 WBC 13.8 H RBC 3.50 L Hgb 8.2 L D Hct 27.1 L MCV 77.6 L MCH 23.4 L MCHC 30.1 L RDW 19.3 H Plt Count 333 D MPV Neut % (Auto) Lymph % (Auto) [place] % (Auto) Eos % (Auto) Baso % (Auto) Neut # (Auto) Lymph # (Auto) [place] # (Auto) Eos # (Auto) Baso # (Auto) Neutrophils % (Manual) Band Neutrophils % Lymphocytes % (Manual) Monocytes % (Manual) Hypersegmented Polys Platelet Estimate Giant Platelets Hypochromasia (manual) Anisocytosis (manual) PT INR APTT 30.8 pCO2 pO2 31 HCO3 ABG pH ABG Total CO2 ABG O2 Saturation ABG Base Excess Dorian Test ABG Potassium VBG pH 7.31 L VBG pCO2 37 L VBG HCO3 18.2 VBG Total CO2 19.7 L VBG O2 Sat (Calc) 52.3 VBG Base Excess -7.0 L VBG Potassium 3.9 A-a O2 Difference Glucose 166 H Lactate 8.3 H* Vent Mode Mechanical Rate FiO2 21.0 Tidal Volume PEEP Blood Gas Comments Lac=8.3 Crit Value Called To shana Hall Crit Value Called By Beryl Crit Value Read Back Y Blood Gas Notified Time 1413 Sodium 141.0 Potassium Chloride 105.0 Carbon Dioxide Anion Gap BUN Creatinine Est GFR ( Amer) Est GFR (Non-Af Amer) POC Glucose (mg/dL) Random Glucose Calcium Phosphorus Magnesium Total Bilirubin AST ALT Alkaline Phosphatase Troponin I Total Protein Albumin Globulin Albumin/Globulin Ratio Arterial Blood Potassium Venous Blood Potassium 3.9 Random Vancomycin Blood Type Antibody Screen Crossmatch BBK History Checked 11/11/18 11/11/18 11/11/18 18:35 18:35 18:35 WBC 13.3 H RBC 4.23 L Hgb 10.0 L Hct 33.4 L MCV 79.2 L MCH 23.7 L MCHC 29.9 L RDW 19.6 H Plt Count 496 H D MPV 8.3 Neut % (Auto) 83.8 H Lymph % (Auto) 9.1 L [place] % (Auto) 6.8 Eos % (Auto) 0.2 Baso % (Auto) 0.1 Neut # (Auto) 11.1 H Lymph # (Auto) 1.2 [place] # (Auto) 0.9 H Eos # (Auto) 0.0 Baso # (Auto) 0.0 Neutrophils % (Manual) Band Neutrophils % Lymphocytes % (Manual) Monocytes % (Manual) Hypersegmented Polys Platelet Estimate Giant Platelets Hypochromasia (manual) Anisocytosis (manual) PT INR APTT pCO2 pO2 HCO3 ABG pH ABG Total CO2 ABG O2 Saturation ABG Base Excess Dorian Test ABG Potassium VBG pH VBG pCO2 VBG HCO3 VBG Total CO2 VBG O2 Sat (Calc) VBG Base Excess VBG Potassium A-a O2 Difference Glucose Lactate Vent Mode Mechanical Rate FiO2 Tidal Volume PEEP Blood Gas Comments Crit Value Called To Crit Value Called By Crit Value Read Back Blood Gas Notified Time Sodium 140 Potassium 4.0 Chloride 110 H Carbon Dioxide 19 L Anion Gap 15 BUN 28 H Creatinine 5.4 H Est GFR ( Amer) 14 Est GFR (Non-Af Amer) 11 POC Glucose (mg/dL) Random Glucose 198 H Calcium 7.3 L Phosphorus 3.5 Magnesium 1.3 L Total Bilirubin 0.4 AST 287 H D ALT 258 H D Alkaline Phosphatase 105 Troponin I Total Protein 6.7 Albumin 2.9 L D Globulin 3.8 Albumin/Globulin Ratio 0.8 L Arterial Blood Potassium Venous Blood Potassium Random Vancomycin 23.4 Blood Type Antibody Screen Crossmatch BBK History Checked 11/11/18 11/11/18 11/11/18 18:39 21:21 21:42 WBC RBC Hgb Hct MCV MCH MCHC RDW Plt Count MPV Neut % (Auto) Lymph % (Auto) [place] % (Auto) Eos % (Auto) Baso % (Auto) Neut # (Auto) Lymph # (Auto) [place] # (Auto) Eos # (Auto) Baso # (Auto) Neutrophils % (Manual) Band Neutrophils % Lymphocytes % (Manual) Monocytes % (Manual) Hypersegmented Polys Platelet Estimate Giant Platelets Hypochromasia (manual) Anisocytosis (manual) PT INR APTT pCO2 53 H 35 pO2 89 89 HCO3 17.4 L 21.5 ABG pH 7.17 L* 7.37 ABG Total CO2 20.9 L 21.3 L ABG O2 Saturation 96.3 98.5 H ABG Base Excess -9.5 L -4.4 L Dorian Test Yes Yes ABG Potassium 4.2 4.4 VBG pH VBG pCO2 VBG HCO3 VBG Total CO2 VBG O2 Sat (Calc) VBG Base Excess VBG Potassium A-a O2 Difference 201.0 224.0 Glucose 208 H 252 H Lactate 4.2 H* 3.2 H Vent Mode Prvc/ac Prvc/ac Mechanical Rate 12 20 FiO2 50.0 50.0 Tidal Volume 600 600 PEEP 5 Blood Gas Comments Lac=4.2 Lac=3.2 Crit Value Called To shana [place] egbert Crit Value Called By 22 22 Crit Value Read Back Y Y Blood Gas Notified Time 1846 2158 Sodium 139.0 138.0 Potassium Chloride 107.0 106.0 Carbon Dioxide Anion Gap BUN Creatinine Est GFR ( Amer) Est GFR (Non-Af Amer) POC Glucose (mg/dL) 210 H Random Glucose Calcium Phosphorus Magnesium Total Bilirubin AST ALT Alkaline Phosphatase Troponin I Total Protein Albumin Globulin Albumin/Globulin Ratio Arterial Blood Potassium 4.2 4.4 Venous Blood Potassium Random Vancomycin Blood Type Antibody Screen Crossmatch BBK History Checked 11/12/18 11/12/18 11/12/18 04:21 04:30 04:30 WBC 13.9 H RBC 3.93 L Hgb 9.4 L Hct 30.7 L MCV 77.9 L MCH 23.9 L MCHC 30.7 L RDW 19.4 H Plt Count 335 D MPV 8.4 Neut % (Auto) 86.8 H Lymph % (Auto) 8.4 L [place] % (Auto) 4.6 Eos % (Auto) 0.0 Baso % (Auto) 0.2 Neut # (Auto) 12.1 H Lymph # (Auto) 1.2 [place] # (Auto) 0.6 Eos # (Auto) 0.0 Baso # (Auto) 0.0 Neutrophils % (Manual) Band Neutrophils % Lymphocytes % (Manual) Monocytes % (Manual) Hypersegmented Polys Platelet Estimate Giant Platelets Hypochromasia (manual) Anisocytosis (manual) PT INR APTT pCO2 33 L pO2 118 H HCO3 21.3 ABG pH 7.38 ABG Total CO2 20.5 L ABG O2 Saturation 98.8 H ABG Base Excess -4.7 L Dorian Test Yes ABG Potassium 4.9 VBG pH VBG pCO2 VBG HCO3 VBG Total CO2 VBG O2 Sat (Calc) VBG Base Excess VBG Potassium A-a O2 Difference 197.0 Glucose 263 H Lactate 3.9 H Vent Mode Prvc ac Mechanical Rate 20 FiO2 50.0 Tidal Volume 600 PEEP Blood Gas Comments Crit Value Called To Crit Value Called By Crit Value Read Back Blood Gas Notified Time Sodium 136.0 Potassium Chloride 106.0 Carbon Dioxide Anion Gap BUN Creatinine Est GFR ( Amer) Est GFR (Non-Af Amer) POC Glucose (mg/dL) Random Glucose Calcium Phosphorus Magnesium Total Bilirubin AST ALT Alkaline Phosphatase Troponin I Total Protein Albumin Globulin Albumin/Globulin Ratio Arterial Blood Potassium 4.9 Venous Blood Potassium Random Vancomycin 23.2 Blood Type Antibody Screen Crossmatch BBK History Checked 11/12/18 11/12/18 04:30 04:39 WBC RBC Hgb Hct MCV MCH MCHC RDW Plt Count MPV Neut % (Auto) Lymph % (Auto) [place] % (Auto) Eos % (Auto) Baso % (Auto) Neut # (Auto) Lymph # (Auto) [place] # (Auto) Eos # (Auto) Baso # (Auto) Neutrophils % (Manual) Band Neutrophils % Lymphocytes % (Manual) Monocytes % (Manual) Hypersegmented Polys Platelet Estimate Giant Platelets Hypochromasia (manual) Anisocytosis (manual) PT INR APTT pCO2 pO2 HCO3 ABG pH ABG Total CO2 ABG O2 Saturation ABG Base Excess Dorian Test ABG Potassium VBG pH VBG pCO2 VBG HCO3 VBG Total CO2 VBG O2 Sat (Calc) VBG Base Excess VBG Potassium A-a O2 Difference Glucose Lactate Vent Mode Mechanical Rate FiO2 Tidal Volume PEEP Blood Gas Comments Crit Value Called To Crit Value Called By Crit Value Read Back Blood Gas Notified Time Sodium 140 Potassium 5.0 Chloride 106 Carbon Dioxide 19 L Anion Gap 20 BUN 35 H Creatinine 6.4 H Est GFR ( Amer) 11 Est GFR (Non-Af Amer) 9 POC Glucose (mg/dL) 224 H Random Glucose 248 H Calcium 7.8 L Phosphorus 4.9 H Magnesium 1.7 Total Bilirubin 0.4 AST 220 H D ALT 300 H Alkaline Phosphatase 95 Troponin I Total Protein 6.3 Albumin 2.8 L Globulin 3.5 Albumin/Globulin Ratio 0.8 L Arterial Blood Potassium Venous Blood Potassium Random Vancomycin Blood Type Antibody Screen Crossmatch BBK History Checked Assessment & Plan - Assessment and Plan (Free Text) Assessment: Pt is a 47 y/o male with hx of ESRD on HD, CVA, NIDDM, HTN, HLD, GERD/Gastritis, who presented to [facility] ED yesterday with complaints of Coffee ground emesis x1 day and diffuse abdominal pain, found on Abdomen CT to have SBO perforation with Ischemic bowel, taken to OR and had small bowel resection with primary anastamosis. Remained intubated postoperatively. Seen and evaluated this morning with Dr. Lake. Eyes open, no distress noted, appears to be asking to removed orotracheal tube. #Septic Shock -2/2 to Ischemic bowel from SBO perforation. S/P small bowel resection, POD 1 -Currently on Levophed and vasopressin for pressure support, BP 110-120's. Titrate as needed -Afebrile, tachycardic, Leukocytosis improved 13.9, Lactic acid trending down (8.3>4.2>3.2>3.9) -On Mechanical Ventilation, may attempt to wean today -S/P Vanco, Flagyl, and Gentamycin in ED -C/W Empiric Antibiotics: Cipro, Flagyl -Follow Bcx -Surgery following -ID following ESRD on HD -Nephrology consulted -Crea at baseline -Metabolic acidosis likely from septic shock -Gentle hydration w/ NS and Bicarb NIDDM -Hold Glipizide for now until stable HTN -Hold all antihypertensive home meds until BP stable GI ppx -PPI DVT ppx -Heparin 5000 SQ q8 <Joel Lake - Last Filed: 11/14/18 10:02> Results - Vital Signs Recent Vital Signs: Last Vital Signs Temp 98.3 F 11/14/18 00:00 Pulse 98 H 11/14/18 05:25 Resp 21 11/14/18 05:25 BP 148/71 11/14/18 05:25 Pulse Ox 100 11/14/18 05:25 - Labs Result Diagrams: 11/14/18 04:25 11/14/18 04:25 Labs: Laboratory Results - last 24 hr 11/11/18 11/13/18 11/13/18 11:07 10:27 11:07 WBC 9.1 RBC 3.07 L Hgb 7.3 L Hct 24.2 L MCV 78.8 L D MCH 23.9 L MCHC 30.3 L RDW 19.1 H Plt Count 238 Sodium Potassium Chloride Carbon Dioxide Anion Gap BUN Creatinine Est GFR ( Amer) Est GFR (Non-Af Amer) POC Glucose (mg/dL) 185 H Random Glucose Calcium Phosphorus Magnesium Total Bilirubin AST ALT Alkaline Phosphatase Total Protein Albumin Globulin Albumin/Globulin Ratio Random Vancomycin Blood Type O NEGATIVE Antibody Screen Negative Crossmatch See Detail BBK History Checked Patient has bt 11/13/18 11/13/18 11/13/18 13:50 16:30 20:58 WBC RBC Hgb Hct MCV MCH MCHC RDW Plt Count Sodium Potassium Chloride Carbon Dioxide Anion Gap BUN Creatinine Est GFR ( Amer) Est GFR (Non-Af Amer) POC Glucose (mg/dL) 145 H 165 H Random Glucose Calcium Phosphorus Magnesium Total Bilirubin AST ALT Alkaline Phosphatase Total Protein Albumin Globulin Albumin/Globulin Ratio Random Vancomycin 14.9 Blood Type Antibody Screen Crossmatch BBK History Checked 11/14/18 11/14/18 11/14/18 04:25 04:25 06:21 WBC 10.9 H RBC 3.51 L Hgb 8.7 L Hct 27.4 L MCV 78.2 L MCH 24.8 L MCHC 31.8 L RDW 18.9 H Plt Count 258 Sodium 142 Potassium 4.2 Chloride 106 Carbon Dioxide 25 Anion Gap 15 BUN 34 H Creatinine 5.0 H Est GFR ( Amer) 15 Est GFR (Non-Af Amer) 13 POC Glucose (mg/dL) 154 H Random Glucose 163 H Calcium 8.5 Phosphorus 5.3 H Magnesium 2.0 Total Bilirubin 0.6 AST 107 H D ALT 284 H Alkaline Phosphatase 134 H D Total Protein 6.2 L Albumin 2.8 L Globulin 3.4 Albumin/Globulin Ratio 0.8 L Random Vancomycin Blood Type Antibody Screen Crossmatch BBK History Checked Assessment & Plan - Assessment and Plan (Free Text) Assessment: Patient was personally seen and examined by me in rounds with residents. Available labs and diagnostic data reviewed. Case, Patient's condition and management plan discussed with residents in rounds. Agree with resident's progress note. Plan: As ordered.
--- NOTE | 2018-11-12 08:39 | PCM.PROC ---
Procedures Attestation:: I certify that I have explained the specified Operation(s) or Procedure(s), risks, benefits and reasonable alternatives to the Patient and/or other person responsible. The opportunity was given to ask questions and all questions answered - Extubation Clinical Parameters: Resolution/Stabilization of disease process, Acceptable Vent Settings (FIO2<50%, PEEP<8, PaO2>75, pH>7.25) Weaning Criteria Met: Yes General Weaning Approaches: Pressure Support Ventilation (PSV) Weaning Patient Condition: Patient has been successfully extubated and assessed Oxygen Therapy: O2 via Venti Mask Patient Tolerated Procedure: Well Additional Comments: Extubated now from Acute Resp insufficiency post-op. No distress, 100% on Ventimask, no immediate stridor, awake and conversing normally post extubation. NGT kept in place until cleared for removal by Gen Surg.
[2018-11-12] MEDS: Ciprofloxacin 400mg/200ml D5W 400 MG/200 ML BAG IVPB SCH (08:46)
--- NOTE | 2018-11-12 10:16 | RAD ---
Date of service: 11/11/2018 HISTORY: s/p OR, Intubation, NGT COMPARISON: Multiple serial examinations preceding the most recent study: November 11, 2018. FINDINGS: LUNGS: Persistent left upper lobe infiltrate unchanged. PLEURA: No significant pleural effusion identified, no pneumothorax apparent. CARDIOVASCULAR: No atherosclerotic calcification present No radiographic findings to suggest acute or significant cardiovascular disease. OSSEOUS STRUCTURES: No significant abnormalities. VISUALIZED UPPER ABDOMEN: Normal. OTHER FINDINGS: Satisfactory position ventilatory, vascular and nasogastric apparatus. IMPRESSION: Satisfactory position of recently placed endotracheal tube and nasogastric tube. Stable left upper lobe infiltrate.
--- NOTE | 2018-11-12 10:37 | CP.PCM.PN ---
<Yuliet Sheldon - Last Filed: 11/12/18 10:28> Subjective - Date & Time of Evaluation Date of Evaluation: 11/12/18 Time of Evaluation: 10:28 - Subjective Subjective: General Surgery Pt seen and examined this AM. Extubated, on VM, weaning off of pressors today. HD pending today. Pt reports having abdominal pain, states he passed small amount of gas 3 times today. (-) BM. (-) N/V. NGT in place. Tmax 100.1. NGT output: 500ml bilious per RN. Adkins: (-) output on HD Labs and vitals noted. WBC trending down, latest 13.9. HGB stable. Lactate remains elevated however has improved with the latest 3.9. PE Gen: Pt laying in bed in NAD Skin: warm and dry Cardio: s1s2 RRR Lungs: CTA bilaterally in anterior lung reyes Abd: Soft, (+) generalized tenderness, dressing clean (-) strike through Extr: (+) right foot amputation, RUE: Stapled incision from recent AV fistula revision. Incision (-) erythema, (-) induration, (-) drainage, (+) thrill A/P SBO, Ischemic Bowel, Perforated viscous POD 1 exploratory lap with small bowel resection and primary anastomosis Keep NPO today Monitor NGT output Continue IV abx Continue IVF Monitor temps Monitor labs Serial abdominal exams Cont Heparin Objective - Vital Signs/Intake and Output Vital Signs (last 24 hours): Temp Pulse Resp BP Pulse Ox 100.1 F H 105 H 22 97/48 L 100 11/12/18 07:59 11/12/18 10:00 11/12/18 10:00 11/12/18 10:00 11/12/18 10:00 Intake and Output: 11/12/18 11/12/18 06:59 18:59 Intake Total 2056 425 Balance 2056 425 - Medications Medications: Current Medications Heparin Sodium (Porcine) (Heparin) 5,000 units SC Q8 [facility]; Protocol Last Admin: 11/12/18 08:44 Dose: 5,000 units Ciprofloxacin (Cipro 400mg/200ml Dsw) 400 mg in 200 mls @ 200 mls/hr IVPB DAILY [facility]; Protocol Last Admin: 11/12/18 08:46 Dose: 200 mls/hr Norepinephrine Bitartrate 4 mg (/ Dextrose) 254 mls @ 9.53 mls/hr IV .Q24H [facility]; Protocol Last Titration: 11/12/18 09:40 Dose: 2.5 mcg/min, 9.53 mls/hr Sodium Chloride (Sodium Chloride 0.9%) 1,000 mls @ 150 mls/hr IV .Q6H40M [facility] Stop: 11/12/18 18:22 Last Admin: 11/11/18 19:11 Dose: 150 mls/hr Vasopressin 100 units/ Sodium (Chloride) 105 mls @ 1.89 mls/hr IV .Q24H [facility]; Protocol Last Admin: 11/11/18 20:15 Dose: 0.03 units/min, 1.89 mls/hr Sodium Bicarbonate 50 meq/ (Sodium Chloride) 1,050 mls @ 75 mls/hr IV .Q14H [facility] Stop: 11/12/18 20:40 Last Admin: 11/11/18 21:23 Dose: 75 mls/hr Metronidazole (Flagyl 500mg/100ml Ns) 100 mls @ 100 mls/hr IVPB Q8@0500,1300,2100 [facility]; Protocol Last Admin: 11/12/18 04:39 Dose: 100 mls/hr Morphine Sulfate (Morphine) 2 mg IVP Q4 PRN PRN Reason: Pain, severe (8-10) Last Admin: 11/12/18 05:32 Dose: 2 mg Pantoprazole Sodium (Protonix Inj) 40 mg IVP DAILY [facility] Last Admin: 11/12/18 08:44 Dose: 40 mg - Labs Labs: 11/12/18 04:30 11/12/18 04:30 PT 15.1 Seconds (9.8-13.1) H 11/11/18 09:53 INR 1.3 11/11/18 09:53 APTT 30.8 Seconds (25.6-37.1) 11/11/18 15:00 <Fernando Beck - Last Filed: 11/12/18 10:42> Subjective - Subjective Subjective: addendum agree with pa note. seen and examined at bedside, report improved abdominal discomfort. -N/V remains on levo. extubated this morning. NGT: 500cc abd: distended but soft, no peritoneal signs, midline wound dressing in place c/d/i a/p: POD # 1 s/p ex lap small bowel resection, abdominal washout pain control NPO NGT to LWS, monitor outputs IVF renal consult Objective - Vital Signs/Intake and Output Vital Signs (last 24 hours): Temp Pulse Resp BP Pulse Ox 100.1 F H 105 H 22 97/48 L 100 11/12/18 07:59 11/12/18 10:00 11/12/18 10:00 11/12/18 10:00 11/12/18 10:00 Intake and Output: 11/12/18 11/12/18 06:59 18:59 Intake Total 2056 425 Balance 2056 425 - Medications Medications: Current Medications Heparin Sodium (Porcine) (Heparin) 5,000 units SC Q8 [facility]; Protocol Last Admin: 11/12/18 08:44 Dose: 5,000 units Ciprofloxacin (Cipro 400mg/200ml Dsw) 400 mg in 200 mls @ 200 mls/hr IVPB DAILY [facility]; Protocol Last Admin: 11/12/18 08:46 Dose: 200 mls/hr Norepinephrine Bitartrate 4 mg (/ Dextrose) 254 mls @ 9.53 mls/hr IV .Q24H [facility]; Protocol Last Titration: 11/12/18 09:40 Dose: 2.5 mcg/min, 9.53 mls/hr Sodium Chloride (Sodium Chloride 0.9%) 1,000 mls @ 150 mls/hr IV .Q6H40M [facility] Stop: 11/12/18 18:22 Last Admin: 11/11/18 19:11 Dose: 150 mls/hr Vasopressin 100 units/ Sodium (Chloride) 105 mls @ 1.89 mls/hr IV .Q24H [facility]; Protocol Last Admin: 11/11/18 20:15 Dose: 0.03 units/min, 1.89 mls/hr Sodium Bicarbonate 50 meq/ (Sodium Chloride) 1,050 mls @ 75 mls/hr IV .Q14H [facility] Stop: 11/12/18 20:40 Last Admin: 11/11/18 21:23 Dose: 75 mls/hr Metronidazole (Flagyl 500mg/100ml Ns) 100 mls @ 100 mls/hr IVPB Q8@0500,1300,2100 [facility]; Protocol Last Admin: 11/12/18 04:39 Dose: 100 mls/hr Morphine Sulfate (Morphine) 2 mg IVP Q4 PRN PRN Reason: Pain, severe (8-10) Last Admin: 11/12/18 05:32 Dose: 2 mg Pantoprazole Sodium (Protonix Inj) 40 mg IVP DAILY [facility] Last Admin: 11/12/18 08:44 Dose: 40 mg - Labs Labs: 11/12/18 04:30 11/12/18 04:30 PT 15.1 Seconds (9.8-13.1) H 11/11/18 09:53 INR 1.3 11/11/18 09:53 APTT 30.8 Seconds (25.6-37.1) 11/11/18 15:00
[2018-11-12] MEDS ORDERED: Dextrose 50% SYRINGE Inj (50 ml) IV PRN (11:17)
[2018-11-12] MEDS ORDERED: Glucagon Recombinant 1 mg Inj IM PRN (11:17)
--- NOTE | 2018-11-12 11:23 | CP.PCM.CON ---
History of Present Illness - History of Present Illness History of Present Illness: Patient is 47 years of age male known to me with end-stage renal disease on maintenance hemodialysis 3 times a week. Patient was recently discharged from [facility] where he has surgery on the right upper with what appears to be a transposition for AV fistula. Patient has very complicated past medical history related but not limited to diabetes mellitus CVA hypertension was numerous of admission since he started on dialysis. And presented yesterday with abdominal pain and vomiting and CAT scan was consistent with what appears to be perforation and patient went for the operation and he ended up with small bowel resection. 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 Denies etoh. ED Course: -Vitals: HR 114, BP 90/62, RR 22, O2 sat 100 on Rm Air -Labs significant for leukocytosis 21, hemoglobin 11.4 (dropped to 88.2 after 4 hours) lactic acidosis 8.3, Met Acidosis on ABG, Crea 6.1 (baseline), AST/ALT 287/258 -Abdomen/Pelvic CT significant for High grade SBO w/ possible perforation (intestinal pneumatosis) and ischemic bowel ED Interventions -Fluid resuscitation x5 L -Empiric Antibiotics: Vanco, Gent, Flagyl -Stat Surgery Consultation -Femoral line placed Review of Systems - Constitutional Constitutional: Anorexia. absent: Chills - EENT Eyes: absent: Exophthalmos Ears: absent: Tinnitus Nose/Mouth/Throat: absent: Epistaxis, Nasal Discharge - Cardiovascular Cardiovascular: Dyspnea on Exertion, Edema. absent: Chest Pain - Respiratory Respiratory: Chest Congestion. absent: Cough, Hemoptysis - Gastrointestinal Gastrointestinal: As Per HPI, Abdominal Pain, Coffee Ground Emesis - Genitourinary Genitourinary: Nocturia - Neurological Neurological: As Per HPI. absent: Confusion, Focal Weakness - Endocrine Endocrine: As Per HPI, Fatigue - Hematologic/Lymphatic Hematologic: absent: Easy Bleeding Past Patient History - Infectious Disease Hx of Infectious Diseases: None - Past Medical History & Family History Past Medical History?: Yes - Past Social History Smoking Status: Former Smoker - CARDIAC Hx Congestive Heart Failure: No Hx Hypercholesterolemia: Yes Hx Hypertension: Yes - PULMONARY Hx Chronic Obstructive Pulmonary Disease (COPD): No - NEUROLOGICAL Hx Neurological Disorder: Yes - HEENT Hx HEENT Problems: No - RENAL Hx Chronic Kidney Disease: Yes - ENDOCRINE/METABOLIC Hx Hypothyroidism: No - HEMATOLOGICAL/ONCOLOGICAL Hx Anemia: Yes Hx Human Immunodeficiency Virus (HIV): No - INTEGUMENTARY Hx Dermatological Problems: No - MUSCULOSKELETAL/RHEUMATOLOGICAL Hx Arthritis: No Hx Rheumatoid Arthritis: No - GASTROINTESTINAL Hx Gastritis: Yes - GENITOURINARY/GYNECOLOGICAL Hx Genitourinary Disorders: No - PSYCHIATRIC Hx Psychophysiologic Disorder: No - SURGICAL HISTORY Hx Surgeries: Yes Hx Amputation: Yes (tma right foot) Other/Comment: left suboccipital craniotomy and right ankle surgery - ANESTHESIA Hx Anesthesia: Yes Hx Anesthesia Reactions: No Hx Malignant Hyperthermia: No Meds Allergies/Adverse Reactions: Allergies Allergy/AdvReac Type Severity Reaction Status Date / Time Penicillins Allergy RASH Verified 10/02/18 15:09 - Medications Medications: Current Medications Heparin Sodium (Porcine) (Heparin) 5,000 units SC Q8 [facility]; Protocol Last Admin: 11/12/18 08:44 Dose: 5,000 units Ciprofloxacin (Cipro 400mg/200ml Dsw) 400 mg in 200 mls @ 200 mls/hr IVPB DAILY [facility]; Protocol Last Admin: 11/12/18 08:46 Dose: 200 mls/hr Norepinephrine Bitartrate 4 mg (/ Dextrose) 254 mls @ 9.53 mls/hr IV .Q24H [facility]; Protocol Last Titration: 11/12/18 09:40 Dose: 2.5 mcg/min, 9.53 mls/hr Sodium Chloride (Sodium Chloride 0.9%) 1,000 mls @ 150 mls/hr IV .Q6H40M [facility] Stop: 11/12/18 18:22 Last Admin: 11/11/18 19:11 Dose: 150 mls/hr Sodium Bicarbonate 50 meq/ (Sodium Chloride) 1,050 mls @ 75 mls/hr IV .Q14H [facility] Stop: 11/12/18 20:40 Last Admin: 11/11/18 21:23 Dose: 75 mls/hr Metronidazole (Flagyl 500mg/100ml Ns) 100 mls @ 100 mls/hr IVPB Q8@0500,1300,2100 [facility]; Protocol Last Admin: 11/12/18 04:39 Dose: 100 mls/hr Morphine Sulfate (Morphine) 2 mg IVP Q4 PRN PRN Reason: Pain, severe (8-10) Last Admin: 11/12/18 05:32 Dose: 2 mg Pantoprazole Sodium (Protonix Inj) 40 mg IVP DAILY [facility] Last Admin: 11/12/18 08:44 Dose: 40 mg Physical Exam - Constitutional Appears: No Acute Distress - Eye Exam Eye Exam: Conjunctival injection - ENT Exam ENT Exam: Mucous Membranes Moist - Neck Exam Neck exam: Negative for: Lymphadenopathy - Respiratory Exam Respiratory Exam: Rhonchi, NORMAL BREATHING PATTERN. absent: Chest Wall Tenderness - Cardiovascular Exam Cardiovascular Exam: absent: Gallop, JVD, Rubs - GI/Abdominal Exam GI & Abdominal Exam: Guarding, Tenderness - Extremities Exam Extremities exam: Negative for: calf tenderness - Back Exam Back exam: absent: CVA tenderness (L), CVA tenderness (R) - Neurological Exam Neurological exam: Alert Results - Vital Signs Recent Vital Signs: Last Vital Signs Temp 100.1 F H 11/12/18 07:59 Pulse 104 H 11/12/18 10:57 Resp 17 11/12/18 10:57 BP 117/51 L 11/12/18 10:57 Pulse Ox 100 11/12/18 10:57 - Labs Result Diagrams: 11/12/18 04:30 11/12/18 04:30 Labs: Laboratory Results - last 24 hr 11/11/18 11/11/18 11/11/18 09:53 09:55 11:07 WBC RBC Hgb Hct MCV MCH MCHC RDW Plt Count MPV Neut % (Auto) Lymph % (Auto) [place] % (Auto) Eos % (Auto) Baso % (Auto) Neut # (Auto) Lymph # (Auto) [place] # (Auto) Eos # (Auto) Baso # (Auto) Neutrophils % (Manual) 88 H Band Neutrophils % 1 Lymphocytes % (Manual) 8 L Monocytes % (Manual) 3 Hypersegmented Polys Present Platelet Estimate Increased H Giant Platelets Present Hypochromasia (manual) Slight Anisocytosis (manual) Moderate PT 15.1 H INR 1.3 APTT pCO2 pO2 HCO3 ABG pH ABG Total CO2 ABG O2 Saturation ABG Base Excess Dorian Test ABG Potassium VBG pH VBG pCO2 VBG HCO3 VBG Total CO2 VBG O2 Sat (Calc) VBG Base Excess VBG Potassium A-a O2 Difference Glucose Lactate Vent Mode Mechanical Rate FiO2 Tidal Volume PEEP Blood Gas Comments Crit Value Called To Crit Value Called By Crit Value Read Back Blood Gas Notified Time Sodium 135 Potassium 4.5 Chloride 90 L Carbon Dioxide 28 Anion Gap 22 H BUN 32 H Creatinine 6.1 H Est GFR ( Amer) 12 Est GFR (Non-Af Amer) 10 POC Glucose (mg/dL) Random Glucose 309 H Calcium 9.5 Phosphorus Magnesium Total Bilirubin 0.8 AST 100 H D ALT 80 H D Alkaline Phosphatase 175 H Troponin I 0.0130 Total Protein 9.3 H Albumin 4.2 Globulin 5.1 H Albumin/Globulin Ratio 0.8 L Arterial Blood Potassium Venous Blood Potassium Random Vancomycin Blood Type Antibody Screen Crossmatch BBK History Checked 11/11/18 11/11/18 11/11/18 11:07 11:09 14:02 WBC 13.8 H RBC 3.50 L Hgb 8.2 L D Hct 27.1 L MCV 77.6 L MCH 23.4 L MCHC 30.1 L RDW 19.3 H Plt Count 333 D MPV Neut % (Auto) Lymph % (Auto) [place] % (Auto) Eos % (Auto) Baso % (Auto) Neut # (Auto) Lymph # (Auto) [place] # (Auto) Eos # (Auto) Baso # (Auto) Neutrophils % (Manual) Band Neutrophils % Lymphocytes % (Manual) Monocytes % (Manual) Hypersegmented Polys Platelet Estimate Giant Platelets Hypochromasia (manual) Anisocytosis (manual) PT INR APTT pCO2 pO2 24 L HCO3 ABG pH ABG Total CO2 ABG O2 Saturation ABG Base Excess Dorian Test ABG Potassium VBG pH 7.40 VBG pCO2 48 VBG HCO3 26.8 VBG Total CO2 31.2 H VBG O2 Sat (Calc) 42.7 VBG Base Excess 4.1 H VBG Potassium 4.5 A-a O2 Difference Glucose 312 H Lactate 5.8 H* Vent Mode Mechanical Rate FiO2 21.0 Tidal Volume PEEP Blood Gas Comments Vbg Crit Value Called To Setph barclay r.n. Crit Value Called By Crit Value Read Back Y Blood Gas Notified Time 1123 Sodium 132.0 Potassium Chloride 90.0 L Carbon Dioxide Anion Gap BUN Creatinine Est GFR ( Amer) Est GFR (Non-Af Amer) POC Glucose (mg/dL) Random Glucose Calcium Phosphorus Magnesium Total Bilirubin AST ALT Alkaline Phosphatase Troponin I Total Protein Albumin Globulin Albumin/Globulin Ratio Arterial Blood Potassium Venous Blood Potassium 4.5 Random Vancomycin Blood Type O NEGATIVE Antibody Screen Negative Crossmatch See Detail BBK History Checked Patient has bt 11/11/18 11/11/18 11/11/18 14:05 15:00 18:35 WBC RBC Hgb Hct MCV MCH MCHC RDW Plt Count MPV Neut % (Auto) Lymph % (Auto) [place] % (Auto) Eos % (Auto) Baso % (Auto) Neut # (Auto) Lymph # (Auto) [place] # (Auto) Eos # (Auto) Baso # (Auto) Neutrophils % (Manual) Band Neutrophils % Lymphocytes % (Manual) Monocytes % (Manual) Hypersegmented Polys Platelet Estimate Giant Platelets Hypochromasia (manual) Anisocytosis (manual) PT INR APTT 30.8 pCO2 pO2 31 HCO3 ABG pH ABG Total CO2 ABG O2 Saturation ABG Base Excess Dorian Test ABG Potassium VBG pH 7.31 L VBG pCO2 37 L VBG HCO3 18.2 VBG Total CO2 19.7 L VBG O2 Sat (Calc) 52.3 VBG Base Excess -7.0 L VBG Potassium 3.9 A-a O2 Difference Glucose 166 H Lactate 8.3 H* Vent Mode Mechanical Rate FiO2 21.0 Tidal Volume PEEP Blood Gas Comments Lac=8.3 Crit Value Called To shana Hall Crit Value Called By 22 Crit Value Read Back Y Blood Gas Notified Time 1413 Sodium 141.0 Potassium Chloride 105.0 Carbon Dioxide Anion Gap BUN Creatinine Est GFR ( Amer) Est GFR (Non-Af Amer) POC Glucose (mg/dL) Random Glucose Calcium Phosphorus Magnesium Total Bilirubin AST ALT Alkaline Phosphatase Troponin I Total Protein Albumin Globulin Albumin/Globulin Ratio Arterial Blood Potassium Venous Blood Potassium 3.9 Random Vancomycin 23.4 Blood Type Antibody Screen Crossmatch BBK History Checked 11/11/18 11/11/18 11/11/18 18:35 18:35 18:39 WBC 13.3 H RBC 4.23 L Hgb 10.0 L Hct 33.4 L MCV 79.2 L MCH 23.7 L MCHC 29.9 L RDW 19.6 H Plt Count 496 H D MPV 8.3 Neut % (Auto) 83.8 H Lymph % (Auto) 9.1 L [place] % (Auto) 6.8 Eos % (Auto) 0.2 Baso % (Auto) 0.1 Neut # (Auto) 11.1 H Lymph # (Auto) 1.2 [place] # (Auto) 0.9 H Eos # (Auto) 0.0 Baso # (Auto) 0.0 Neutrophils % (Manual) Band Neutrophils % Lymphocytes % (Manual) Monocytes % (Manual) Hypersegmented Polys Platelet Estimate Giant Platelets Hypochromasia (manual) Anisocytosis (manual) PT INR APTT pCO2 53 H pO2 89 HCO3 17.4 L ABG pH 7.17 L* ABG Total CO2 20.9 L ABG O2 Saturation 96.3 ABG Base Excess -9.5 L Dorian Test Yes ABG Potassium 4.2 VBG pH VBG pCO2 VBG HCO3 VBG Total CO2 VBG O2 Sat (Calc) VBG Base Excess VBG Potassium A-a O2 Difference 201.0 Glucose 208 H Lactate 4.2 H* Vent Mode Prvc/ac Mechanical Rate 12 FiO2 50.0 Tidal Volume 600 PEEP 5 Blood Gas Comments Lac=4.2 Crit Value Called To shana [place] Crit Value Called By 22 Crit Value Read Back Y Blood Gas Notified Time 1846 Sodium 140 139.0 Potassium 4.0 Chloride 110 H 107.0 Carbon Dioxide 19 L Anion Gap 15 BUN 28 H Creatinine 5.4 H Est GFR ( Amer) 14 Est GFR (Non-Af Amer) 11 POC Glucose (mg/dL) Random Glucose 198 H Calcium 7.3 L Phosphorus 3.5 Magnesium 1.3 L Total Bilirubin 0.4 AST 287 H D ALT 258 H D Alkaline Phosphatase 105 Troponin I Total Protein 6.7 Albumin 2.9 L D Globulin 3.8 Albumin/Globulin Ratio 0.8 L Arterial Blood Potassium 4.2 Venous Blood Potassium Random Vancomycin Blood Type Antibody Screen Crossmatch BBK History Checked 11/11/18 11/11/18 11/12/18 21:21 21:42 04:21 WBC RBC Hgb Hct MCV MCH MCHC RDW Plt Count MPV Neut % (Auto) Lymph % (Auto) [place] % (Auto) Eos % (Auto) Baso % (Auto) Neut # (Auto) Lymph # (Auto) [place] # (Auto) Eos # (Auto) Baso # (Auto) Neutrophils % (Manual) Band Neutrophils % Lymphocytes % (Manual) Monocytes % (Manual) Hypersegmented Polys Platelet Estimate Giant Platelets Hypochromasia (manual) Anisocytosis (manual) PT INR APTT pCO2 35 33 L pO2 89 118 H HCO3 21.5 21.3 ABG pH 7.37 7.38 ABG Total CO2 21.3 L 20.5 L ABG O2 Saturation 98.5 H 98.8 H ABG Base Excess -4.4 L -4.7 L Dorian Test Yes Yes ABG Potassium 4.4 4.9 VBG pH VBG pCO2 VBG HCO3 VBG Total CO2 VBG O2 Sat (Calc) VBG Base Excess VBG Potassium A-a O2 Difference 224.0 197.0 Glucose 252 H 263 H Lactate 3.2 H 3.9 H Vent Mode Prvc/ac Prvc ac Mechanical Rate 20 20 FiO2 50.0 50.0 Tidal Volume 600 600 PEEP Blood Gas Comments Lac=3.2 Crit Value Called To suki Onofre Crit Value Called By 22 Crit Value Read Back Y Blood Gas Notified Time 2157 Sodium 138.0 136.0 Potassium Chloride 106.0 106.0 Carbon Dioxide Anion Gap BUN Creatinine Est GFR ( Amer) Est GFR (Non-Af Amer) POC Glucose (mg/dL) 210 H Random Glucose Calcium Phosphorus Magnesium Total Bilirubin AST ALT Alkaline Phosphatase Troponin I Total Protein Albumin Globulin Albumin/Globulin Ratio Arterial Blood Potassium 4.4 4.9 Venous Blood Potassium Random Vancomycin Blood Type Antibody Screen Crossmatch BBK History Checked 11/12/18 11/12/18 11/12/18 04:30 04:30 04:30 WBC 13.9 H RBC 3.93 L Hgb 9.4 L Hct 30.7 L MCV 77.9 L MCH 23.9 L MCHC 30.7 L RDW 19.4 H Plt Count 335 D MPV 8.4 Neut % (Auto) 86.8 H Lymph % (Auto) 8.4 L [place] % (Auto) 4.6 Eos % (Auto) 0.0 Baso % (Auto) 0.2 Neut # (Auto) 12.1 H Lymph # (Auto) 1.2 [place] # (Auto) 0.6 Eos # (Auto) 0.0 Baso # (Auto) 0.0 Neutrophils % (Manual) Band Neutrophils % Lymphocytes % (Manual) Monocytes % (Manual) Hypersegmented Polys Platelet Estimate Giant Platelets Hypochromasia (manual) Anisocytosis (manual) PT INR APTT pCO2 pO2 HCO3 ABG pH ABG Total CO2 ABG O2 Saturation ABG Base Excess Dorian Test ABG Potassium VBG pH VBG pCO2 VBG HCO3 VBG Total CO2 VBG O2 Sat (Calc) VBG Base Excess VBG Potassium A-a O2 Difference Glucose Lactate Vent Mode Mechanical Rate FiO2 Tidal Volume PEEP Blood Gas Comments Crit Value Called To Crit Value Called By Crit Value Read Back Blood Gas Notified Time Sodium 140 Potassium 5.0 Chloride 106 Carbon Dioxide 19 L Anion Gap 20 BUN 35 H Creatinine 6.4 H Est GFR ( Amer) 11 Est GFR (Non-Af Amer) 9 POC Glucose (mg/dL) Random Glucose 248 H Calcium 7.8 L Phosphorus 4.9 H Magnesium 1.7 Total Bilirubin 0.4 AST 220 H D ALT 300 H Alkaline Phosphatase 95 Troponin I Total Protein 6.3 Albumin 2.8 L Globulin 3.5 Albumin/Globulin Ratio 0.8 L Arterial Blood Potassium Venous Blood Potassium Random Vancomycin 23.2 Blood Type Antibody Screen Crossmatch BBK History Checked 11/12/18 11/12/18 04:39 11:01 WBC RBC Hgb Hct MCV MCH MCHC RDW Plt Count MPV Neut % (Auto) Lymph % (Auto) [place] % (Auto) Eos % (Auto) Baso % (Auto) Neut # (Auto) Lymph # (Auto) [place] # (Auto) Eos # (Auto) Baso # (Auto) Neutrophils % (Manual) Band Neutrophils % Lymphocytes % (Manual) Monocytes % (Manual) Hypersegmented Polys Platelet Estimate Giant Platelets Hypochromasia (manual) Anisocytosis (manual) PT INR APTT pCO2 pO2 HCO3 ABG pH ABG Total CO2 ABG O2 Saturation ABG Base Excess Dorian Test ABG Potassium VBG pH VBG pCO2 VBG HCO3 VBG Total CO2 VBG O2 Sat (Calc) VBG Base Excess VBG Potassium A-a O2 Difference Glucose Lactate Vent Mode Mechanical Rate FiO2 Tidal Volume PEEP Blood Gas Comments Crit Value Called To Crit Value Called By Crit Value Read Back Blood Gas Notified Time Sodium Potassium Chloride Carbon Dioxide Anion Gap BUN Creatinine Est GFR ( Amer) Est GFR (Non-Af Amer) POC Glucose (mg/dL) 224 H 268 H Random Glucose Calcium Phosphorus Magnesium Total Bilirubin AST ALT Alkaline Phosphatase Troponin I Total Protein Albumin Globulin Albumin/Globulin Ratio Arterial Blood Potassium Venous Blood Potassium Random Vancomycin Blood Type Antibody Screen Crossmatch BBK History Checked Assessment & Plan (1) ESRD (end stage renal disease) on dialysis Assessment and Plan: End-stage renal disease patient on maintenance dialysis Saturday. 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
--- NOTE | 2018-11-12 11:37 | RAD ---
Date of service: 11/12/2018 HISTORY: intubated, sepsis COMPARISON: 11/11/2018 FINDINGS: LUNGS: The prior mid lung zone wedge-shaped opacity appears denser and more compact on this exam.-appearance is likely due to projectional effects. A prior infiltrate here with or without atelectasis is compatible with this. An element of concomitant left pleural fissural effusion here not excluded. Interval increased right perihilar patchy infiltrate. PLEURA: Endotracheal tube tip 5 cm from the lindsey. Small left pleural effusion suspect. Pneumothorax noted. CARDIOVASCULAR: No aortic atherosclerotic calcification present. Cardiomegaly as before mild pulmonary venous congestion suspect probably possibly slightly increased in the righ Right dialysis catheter tip in right atrium-as before. T OSSEOUS STRUCTURES: No significant abnormalities. VISUALIZED UPPER ABDOMEN: Prior NG tube distal course difficult to visualize on this exam. OTHER FINDINGS: None. IMPRESSION: Interval change in positioning noted. Possibly exchanging some of the prior appearance of the left lateral pulmonary infiltrate. Mm concomitant atelectasis here with or without fissural fluid is not excluded. Residual infiltrate here still suspect. Full interval small left pleural effusion present. Interval right perihilar patchy opacity-a developing patchy infiltrate here and/or accentuated focal pulmonary venous congestion considerations. Follow-up advised. Endotracheal tube and right dialysis catheter similar in appearance. . Difficulty in visualizing the prior inserted distal nasogastric coarse
[2018-11-12] MEDS: Insulin Lispro (humaLOG) 100 Units/ml Inj SC SCH ×3 (11:44→23:15)
--- NOTE | 2018-11-12 12:04 | CP.CCUPN ---
<Ada Foster - Last Filed: 11/12/18 12:38> CCU Subjective - Physician Review Subjective (Free Text): 11/12/18 11:54 This is 47 y/o male with PMH of ESRD on HD, CVA, NIDDM, HTN, HLD, and GERD/Gastritis admitted to ICU s/p exploratory lap with small bowel resection and primary anastomosis due to ischemic bowel, POD#1. Patient seen and examined this morning s/p extubation, AAOx3. Patient reports abdominal pain, denies any SOB, chest pain or dizziness. possible HD today. (-) BM. (-) N/V. NGT in place ROS: completed and otherwise negative except for above VS: 100.1 tm, 103HR, 124/61, RR 18 PE: HEENT: no icterus, no gaze preference, Pupils 3 mm and reactive NECK: No JVD visible, supple, carotids equal upstroke bilat/no bruit CHEST: CTAB HEART: regular, distant, S1-S2, no rubs ABD: -BS, diffuse tenderness EXT: mildly swollen Extremities, R. BKA,no calf tenderness or palpable cords, distal pulses intact and symmetrical, erythematic papular lesion on b/l LEs up to the knees NEURO: s/p extubation, alert and awake SKIN: warm and dry, erythematic papular lesion on b/l LEs up to the knees LABS: WBC 13.3 H/H: 10/33.4 Plt: 496 CMP: Significant for BUN/Cr 35/6.4, Ca 7.8, Phos 4.9, AST/ALT 220/300 Bcx: No growth after [address] abdo/Pelvis: Intestinal Pneumatosis IMPRESSION/MAJOR PROBLEM: ISCHEMIC SMALL BOWEL, S/P EX LAP, SMALL BOWEL RESECTION AND ANASTOMOSIS, POD#1 SEPTIC SHOCK ESRD CVA DM HTN GASTRITIS PLAN: - SURGERY RECOMMENDATIONS APPRECIATED, C/W MANAGEMENT, CONT NGT/IVF/NPO - HEMODIALYSIS TODAY, CON PER NEPHRO - CONTINUE ABX PER ID, F/U BCX - DC VASOPRESSORS AND LEVOPHED - C/W PROTONIX - C/W GLIPIZIDE AND ACHS SLIDING SCALE - C/W HEPARIN CASE DISCUSSED WITH DR. BONDS 11/12/18 12:39 CCU Objective - Vital Signs / Intake & Output Vital Signs (Last 4 hours): Vital Signs Temp Pulse Resp BP Pulse Ox 11/12/18 10:57 104 H 17 117/51 L 100 11/12/18 10:00 105 H 22 97/48 L 100 11/12/18 09:13 105 H 18 124/61 100 11/12/18 07:59 100.1 F H 110 H 18 116/56 L 100 Intake and Output (Last 8hrs): Intake & Output 11/11/18 11/12/18 11/12/18 22:59 06:59 14:59 Intake Total 1469 1002 435 Output Total 0 Balance 1469 1002 435 Weight 263 lb 8 oz 262 lb Intake: IV 1169 802 235 Intake, Piggyback 300 200 200 Output: Urine 0 Urine, Voided 0 - Medications Active Medications: Active Medications Generic Name Dose Route Start Last Admin Trade Name Freq PRN Reason Stop Dose Admin Dextrose 0 ml 11/12/18 11:17 Dextrose 50% Inj IV STAT PRN Hypoglycemia Protocol Protocol Dextrose 0 gm 11/12/18 11:17 Glutose 15 PO ONCE PRN Hypoglycemia Protocol Protocol Glucagon 0 mg 11/12/18 11:17 Glucagen Diagnostic Kit IM STAT PRN Hypoglycemia Protocol Protocol Heparin Sodium (Porcine) 5,000 units 11/12/18 01:00 11/12/18 08:44 Heparin SC 5,000 units Q8 BASHIR Administration Protocol Ciprofloxacin 400 mg in 200 mls @ 200 mls/hr 11/12/18 09:00 11/12/18 08:46 Cipro 400mg/200ml Dsw IVPB 200 mls/hr DAILY BASHIR Administration Protocol Norepinephrine Bitartrate 4 mg 254 mls @ 9.53 mls/hr 11/11/18 14:30 11/12/18 11:52 / Dextrose IV 0 mcg/min .Q24H BASHIR 0 mls/hr Titration Protocol 2.5 MCG/MIN Sodium Chloride 1,000 mls @ 150 mls/hr 11/11/18 18:30 11/11/18 19:11 Sodium Chloride 0.9% IV 11/12/18 18:22 150 mls/hr .Q6H40M BASHIR Administration Sodium Bicarbonate 50 meq/ 1,050 mls @ 75 mls/hr 11/11/18 20:45 11/11/18 21:23 Sodium Chloride IV 11/12/18 20:40 75 mls/hr .Q14H BASHIR Administration Metronidazole 100 mls @ 100 mls/hr 11/11/18 21:00 11/12/18 04:39 Flagyl 500mg/100ml Ns IVPB 100 mls/hr Q8@0500,1300,2100 [facility] Administration Protocol Insulin Human Lispro 0 units 11/12/18 11:30 11/12/18 11:44 Humalog SC 6 units ACHS BASHIR Administration Protocol Morphine Sulfate 2 mg 11/11/18 13:49 11/12/18 05:32 Morphine IVP 2 mg Q4 PRN Administration Pain, severe (8-10) Pantoprazole Sodium 40 mg 11/11/18 14:00 11/12/18 08:44 Protonix Inj IVP 40 mg DAILY BASHIR Administration - Patient Studies Lab Studies: Lab Studies 11/12/18 11/12/18 11/12/18 Range/Units 11:01 04:39 04:30 WBC (4.8-10.8) K/uL RBC (4.40-5.90) Mil/uL Hgb (12.0-18.0) g/dL Hct (35.0-51.0) % MCV (80.0-94.0) fl MCH (27.0-31.0) pg MCHC (33.0-37.0) g/dL RDW (11.5-14.5) % Plt Count (130-400) K/uL MPV (7.2-11.7) fl Neut % (Auto) (50.0-75.0) % Lymph % (Auto) (20.0-40.0) % [place] % (Auto) (0.0-10.0) % Eos % (Auto) (0.0-4.0) % Baso % (Auto) (0.0-2.0) % Neut # (Auto) (1.8-7.0) K/uL Lymph # (Auto) (1.0-4.3) K/uL [place] # (Auto) (0.0-0.8) K/uL Eos # (Auto) (0.0-0.7) K/uL Baso # (Auto) (0.0-0.2) K/uL Neutrophils % (Manual) (42-75) % Band Neutrophils % (0-2) % Lymphocytes % (Manual) (20-50) % Monocytes % (Manual) (0-10) % Hypersegmented Polys Platelet Estimate (NORMAL) Giant Platelets Hypochromasia (manual) Anisocytosis (manual) APTT (25.6-37.1) Seconds pCO2 (35-45) mm/Hg pO2 (30-55) mm/Hg HCO3 (21-28) mmol/L ABG pH (7.35-7.45) ABG Total CO2 (22-28) mmol/L ABG O2 Saturation (95-98) % ABG Base Excess (-2.0-3.0) mmol/L Dorian Test ABG Potassium (3.6-5.2) mmol/L VBG pH (7.32-7.43) VBG pCO2 (40-60) mmHg VBG HCO3 mmol/L VBG Total CO2 (22-28) mmol/L VBG O2 Sat (Calc) (40-65) % VBG Base Excess (0.0-2.0) mmol/L VBG Potassium (3.6-5.2) mmol/L A-a O2 Difference mm/Hg Sodium 140 (132-148) mmol/L Chloride 106 (98-107) mmol/L Glucose (75-110) mg/dL Lactate (0.7-2.1) mmol/L Vent Mode Mechanical Rate FiO2 % Tidal Volume PEEP Blood Gas Comments Crit Value Called To Crit Value Called By Crit Value Read Back Blood Gas Notified Time Potassium 5.0 (3.6-5.0) MMOL/L Carbon Dioxide 19 L (22-30) mmol/L Anion Gap 20 (10-20) BUN 35 H (9-20) mg/dl Creatinine 6.4 H (0.8-1.5) mg/dl Est GFR ( Amer) 11 Est GFR (Non-Af Amer) 9 POC Glucose (mg/dL) 268 H 224 H (65-110) mg/dL Random Glucose 248 H (75-110) mg/dL Calcium 7.8 L (8.4-10.2) mg/dL Phosphorus 4.9 H (2.5-4.5) mg/dl Magnesium 1.7 (1.6-2.3) MG/DL Total Bilirubin 0.4 (0.2-1.3) mg/dl AST 220 H D (17-59) U/L ALT 300 H (21-72) U/L Alkaline Phosphatase 95 (38-126) U/L Total Protein 6.3 (6.3-8.2) G/DL Albumin 2.8 L (3.5-5.0) g/dL Globulin 3.5 (2.2-3.9) gm/dL Albumin/Globulin Ratio 0.8 L (1.0-2.1) Arterial Blood Potassium (3.6-5.2) mmol/L Venous Blood Potassium (3.6-5.2) mmol/L Random Vancomycin ug/mL Blood Type Antibody Screen Crossmatch BBK History Checked 11/12/18 11/12/18 11/12/18 Range/Units 04:30 04:30 04:21 WBC 13.9 H (4.8-10.8) K/uL RBC 3.93 L (4.40-5.90) Mil/uL Hgb 9.4 L (12.0-18.0) g/dL Hct 30.7 L (35.0-51.0) % MCV 77.9 L (80.0-94.0) fl MCH 23.9 L (27.0-31.0) pg MCHC 30.7 L (33.0-37.0) g/dL RDW 19.4 H (11.5-14.5) % Plt Count 335 D (130-400) K/uL MPV 8.4 (7.2-11.7) fl Neut % (Auto) 86.8 H (50.0-75.0) % Lymph % (Auto) 8.4 L (20.0-40.0) % [place] % (Auto) 4.6 (0.0-10.0) % Eos % (Auto) 0.0 (0.0-4.0) % Baso % (Auto) 0.2 (0.0-2.0) % Neut # (Auto) 12.1 H (1.8-7.0) K/uL Lymph # (Auto) 1.2 (1.0-4.3) K/uL [place] # (Auto) 0.6 (0.0-0.8) K/uL Eos # (Auto) 0.0 (0.0-0.7) K/uL Baso # (Auto) 0.0 (0.0-0.2) K/uL Neutrophils % (Manual) (42-75) % Band Neutrophils % (0-2) % Lymphocytes % (Manual) (20-50) % Monocytes % (Manual) (0-10) % Hypersegmented Polys Platelet Estimate (NORMAL) Giant Platelets Hypochromasia (manual) Anisocytosis (manual) APTT (25.6-37.1) Seconds pCO2 33 L (35-45) mm/Hg pO2 118 H (30-55) mm/Hg HCO3 21.3 (21-28) mmol/L ABG pH 7.38 (7.35-7.45) ABG Total CO2 20.5 L (22-28) mmol/L ABG O2 Saturation 98.8 H (95-98) % ABG Base Excess -4.7 L (-2.0-3.0) mmol/L Dorian Test Yes ABG Potassium 4.9 (3.6-5.2) mmol/L VBG pH (7.32-7.43) VBG pCO2 (40-60) mmHg VBG HCO3 mmol/L VBG Total CO2 (22-28) mmol/L VBG O2 Sat (Calc) (40-65) % VBG Base Excess (0.0-2.0) mmol/L VBG Potassium (3.6-5.2) mmol/L A-a O2 Difference 197.0 mm/Hg Sodium 136.0 (132-148) mmol/L Chloride 106.0 (98-107) mmol/L Glucose 263 H (75-110) mg/dL Lactate 3.9 H (0.7-2.1) mmol/L Vent Mode Prvc ac Mechanical Rate 20 FiO2 50.0 % Tidal Volume 600 PEEP Blood Gas Comments Crit Value Called To Crit Value Called By Crit Value Read Back Blood Gas Notified Time Potassium (3.6-5.0) MMOL/L Carbon Dioxide (22-30) mmol/L Anion Gap (10-20) BUN (9-20) mg/dl Creatinine (0.8-1.5) mg/dl Est GFR ( Amer) Est GFR (Non-Af Amer) POC Glucose (mg/dL) (65-110) mg/dL Random Glucose (75-110) mg/dL Calcium (8.4-10.2) mg/dL Phosphorus (2.5-4.5) mg/dl Magnesium (1.6-2.3) MG/DL Total Bilirubin (0.2-1.3) mg/dl AST (17-59) U/L ALT (21-72) U/L Alkaline Phosphatase (38-126) U/L Total Protein (6.3-8.2) G/DL Albumin (3.5-5.0) g/dL Globulin (2.2-3.9) gm/dL Albumin/Globulin Ratio (1.0-2.1) Arterial Blood Potassium 4.9 (3.6-5.2) mmol/L Venous Blood Potassium (3.6-5.2) mmol/L Random Vancomycin 23.2 ug/mL Blood Type Antibody Screen Crossmatch BBK History Checked 11/11/18 11/11/18 11/11/18 Range/Units 21:42 21:21 18:39 WBC (4.8-10.8) K/uL RBC (4.40-5.90) Mil/uL Hgb (12.0-18.0) g/dL Hct (35.0-51.0) % MCV (80.0-94.0) fl MCH (27.0-31.0) pg MCHC (33.0-37.0) g/dL RDW (11.5-14.5) % Plt Count (130-400) K/uL MPV (7.2-11.7) fl Neut % (Auto) (50.0-75.0) % Lymph % (Auto) (20.0-40.0) % [place] % (Auto) (0.0-10.0) % Eos % (Auto) (0.0-4.0) % Baso % (Auto) (0.0-2.0) % Neut # (Auto) (1.8-7.0) K/uL Lymph # (Auto) (1.0-4.3) K/uL [place] # (Auto) (0.0-0.8) K/uL Eos # (Auto) (0.0-0.7) K/uL Baso # (Auto) (0.0-0.2) K/uL Neutrophils % (Manual) (42-75) % Band Neutrophils % (0-2) % Lymphocytes % (Manual) (20-50) % Monocytes % (Manual) (0-10) % Hypersegmented Polys Platelet Estimate (NORMAL) Giant Platelets Hypochromasia (manual) Anisocytosis (manual) APTT (25.6-37.1) Seconds pCO2 35 53 H (35-45) mm/Hg pO2 89 89 (30-55) mm/Hg HCO3 21.5 17.4 L (21-28) mmol/L ABG pH 7.37 7.17 L* (7.35-7.45) ABG Total CO2 21.3 L 20.9 L (22-28) mmol/L ABG O2 Saturation 98.5 H 96.3 (95-98) % ABG Base Excess -4.4 L -9.5 L (-2.0-3.0) mmol/L Dorian Test Yes Yes ABG Potassium 4.4 4.2 (3.6-5.2) mmol/L VBG pH (7.32-7.43) VBG pCO2 (40-60) mmHg VBG HCO3 mmol/L VBG Total CO2 (22-28) mmol/L VBG O2 Sat (Calc) (40-65) % VBG Base Excess (0.0-2.0) mmol/L VBG Potassium (3.6-5.2) mmol/L A-a O2 Difference 224.0 201.0 mm/Hg Sodium 138.0 139.0 (132-148) mmol/L Chloride 106.0 107.0 (98-107) mmol/L Glucose 252 H 208 H (75-110) mg/dL Lactate 3.2 H 4.2 H* (0.7-2.1) mmol/L Vent Mode Prvc/ac Prvc/ac Mechanical Rate 20 12 FiO2 50.0 50.0 % Tidal Volume 600 600 PEEP 5 Blood Gas Comments Lac=3.2 Lac=4.2 Crit Value Called To suki Onofre james Crit Value Called By Crit Value Read Back Y Y Blood Gas Notified Time 2157 1845 Potassium (3.6-5.0) MMOL/L Carbon Dioxide (22-30) mmol/L Anion Gap (10-20) BUN (9-20) mg/dl Creatinine (0.8-1.5) mg/dl Est GFR ( Amer) Est GFR (Non-Af Amer) POC Glucose (mg/dL) 210 H (65-110) mg/dL Random Glucose (75-110) mg/dL Calcium (8.4-10.2) mg/dL Phosphorus (2.5-4.5) mg/dl Magnesium (1.6-2.3) MG/DL Total Bilirubin (0.2-1.3) mg/dl AST (17-59) U/L ALT (21-72) U/L Alkaline Phosphatase (38-126) U/L Total Protein (6.3-8.2) G/DL Albumin (3.5-5.0) g/dL Globulin (2.2-3.9) gm/dL Albumin/Globulin Ratio (1.0-2.1) Arterial Blood Potassium 4.4 4.2 (3.6-5.2) mmol/L Venous Blood Potassium (3.6-5.2) mmol/L Random Vancomycin ug/mL Blood Type Antibody Screen Crossmatch BBK History Checked 11/11/18 11/11/18 11/11/18 Range/Units 18:35 18:35 18:35 WBC 13.3 H (4.8-10.8) K/uL RBC 4.23 L (4.40-5.90) Mil/uL Hgb 10.0 L (12.0-18.0) g/dL Hct 33.4 L (35.0-51.0) % MCV 79.2 L (80.0-94.0) fl MCH 23.7 L (27.0-31.0) pg MCHC 29.9 L (33.0-37.0) g/dL RDW 19.6 H (11.5-14.5) % Plt Count 496 H D (130-400) K/uL MPV 8.3 (7.2-11.7) fl Neut % (Auto) 83.8 H (50.0-75.0) % Lymph % (Auto) 9.1 L (20.0-40.0) % [place] % (Auto) 6.8 (0.0-10.0) % Eos % (Auto) 0.2 (0.0-4.0) % Baso % (Auto) 0.1 (0.0-2.0) % Neut # (Auto) 11.1 H (1.8-7.0) K/uL Lymph # (Auto) 1.2 (1.0-4.3) K/uL [place] # (Auto) 0.9 H (0.0-0.8) K/uL Eos # (Auto) 0.0 (0.0-0.7) K/uL Baso # (Auto) 0.0 (0.0-0.2) K/uL Neutrophils % (Manual) (42-75) % Band Neutrophils % (0-2) % Lymphocytes % (Manual) (20-50) % Monocytes % (Manual) (0-10) % Hypersegmented Polys Platelet Estimate (NORMAL) Giant Platelets Hypochromasia (manual) Anisocytosis (manual) APTT (25.6-37.1) Seconds pCO2 (35-45) mm/Hg pO2 (30-55) mm/Hg HCO3 (21-28) mmol/L ABG pH (7.35-7.45) ABG Total CO2 (22-28) mmol/L ABG O2 Saturation (95-98) % ABG Base Excess (-2.0-3.0) mmol/L Odrian Test ABG Potassium (3.6-5.2) mmol/L VBG pH (7.32-7.43) VBG pCO2 (40-60) mmHg VBG HCO3 mmol/L VBG Total CO2 (22-28) mmol/L VBG O2 Sat (Calc) (40-65) % VBG Base Excess (0.0-2.0) mmol/L VBG Potassium (3.6-5.2) mmol/L A-a O2 Difference mm/Hg Sodium 140 (132-148) mmol/L Chloride 110 H (98-107) mmol/L Glucose (75-110) mg/dL Lactate (0.7-2.1) mmol/L Vent Mode Mechanical Rate FiO2 % Tidal Volume PEEP Blood Gas Comments Crit Value Called To Crit Value Called By Crit Value Read Back Blood Gas Notified Time Potassium 4.0 (3.6-5.0) MMOL/L Carbon Dioxide 19 L (22-30) mmol/L Anion Gap 15 (10-20) BUN 28 H (9-20) mg/dl Creatinine 5.4 H (0.8-1.5) mg/dl Est GFR ( Amer) 14 Est GFR (Non-Af Amer) 11 POC Glucose (mg/dL) (65-110) mg/dL Random Glucose 198 H (75-110) mg/dL Calcium 7.3 L (8.4-10.2) mg/dL Phosphorus 3.5 (2.5-4.5) mg/dl Magnesium 1.3 L (1.6-2.3) MG/DL Total Bilirubin 0.4 (0.2-1.3) mg/dl AST 287 H D (17-59) U/L ALT 258 H D (21-72) U/L Alkaline Phosphatase 105 (38-126) U/L Total Protein 6.7 (6.3-8.2) G/DL Albumin 2.9 L D (3.5-5.0) g/dL Globulin 3.8 (2.2-3.9) gm/dL Albumin/Globulin Ratio 0.8 L (1.0-2.1) Arterial Blood Potassium (3.6-5.2) mmol/L Venous Blood Potassium (3.6-5.2) mmol/L Random Vancomycin 23.4 ug/mL Blood Type Antibody Screen Crossmatch BBK History Checked 11/11/18 11/11/18 11/11/18 Range/Units 15:00 14:05 14:02 WBC 13.8 H (4.8-10.8) K/uL RBC 3.50 L (4.40-5.90) Mil/uL Hgb 8.2 L D (12.0-18.0) g/dL Hct 27.1 L (35.0-51.0) % MCV 77.6 L (80.0-94.0) fl MCH 23.4 L (27.0-31.0) pg MCHC 30.1 L (33.0-37.0) g/dL RDW 19.3 H (11.5-14.5) % Plt Count 333 D (130-400) K/uL MPV (7.2-11.7) fl Neut % (Auto) (50.0-75.0) % Lymph % (Auto) (20.0-40.0) % [place] % (Auto) (0.0-10.0) % Eos % (Auto) (0.0-4.0) % Baso % (Auto) (0.0-2.0) % Neut # (Auto) (1.8-7.0) K/uL Lymph # (Auto) (1.0-4.3) K/uL [place] # (Auto) (0.0-0.8) K/uL Eos # (Auto) (0.0-0.7) K/uL Baso # (Auto) (0.0-0.2) K/uL Neutrophils % (Manual) (42-75) % Band Neutrophils % (0-2) % Lymphocytes % (Manual) (20-50) % Monocytes % (Manual) (0-10) % Hypersegmented Polys Platelet Estimate (NORMAL) Giant Platelets Hypochromasia (manual) Anisocytosis (manual) APTT 30.8 (25.6-37.1) Seconds pCO2 (35-45) mm/Hg pO2 31 (30-55) mm/Hg HCO3 (21-28) mmol/L ABG pH (7.35-7.45) ABG Total CO2 (22-28) mmol/L ABG O2 Saturation (95-98) % ABG Base Excess (-2.0-3.0) mmol/L Dorian Test ABG Potassium (3.6-5.2) mmol/L VBG pH 7.31 L (7.32-7.43) VBG pCO2 37 L (40-60) mmHg VBG HCO3 18.2 mmol/L VBG Total CO2 19.7 L (22-28) mmol/L VBG O2 Sat (Calc) 52.3 (40-65) % VBG Base Excess -7.0 L (0.0-2.0) mmol/L VBG Potassium 3.9 (3.6-5.2) mmol/L A-a O2 Difference mm/Hg Sodium 141.0 (132-148) mmol/L Chloride 105.0 (98-107) mmol/L Glucose 166 H (75-110) mg/dL Lactate 8.3 H* (0.7-2.1) mmol/L Vent Mode Mechanical Rate FiO2 21.0 % Tidal Volume PEEP Blood Gas Comments Lac=8.3 Crit Value Called To shana Hall Crit Value Called By 22 Crit Value Read Back Y Blood Gas Notified Time 1413 Potassium (3.6-5.0) MMOL/L Carbon Dioxide (22-30) mmol/L Anion Gap (10-20) BUN (9-20) mg/dl Creatinine (0.8-1.5) mg/dl Est GFR ( Amer) Est GFR (Non-Af Amer) POC Glucose (mg/dL) (65-110) mg/dL Random Glucose (75-110) mg/dL Calcium (8.4-10.2) mg/dL Phosphorus (2.5-4.5) mg/dl Magnesium (1.6-2.3) MG/DL Total Bilirubin (0.2-1.3) mg/dl AST (17-59) U/L ALT (21-72) U/L Alkaline Phosphatase (38-126) U/L Total Protein (6.3-8.2) G/DL Albumin (3.5-5.0) g/dL Globulin (2.2-3.9) gm/dL Albumin/Globulin Ratio (1.0-2.1) Arterial Blood Potassium (3.6-5.2) mmol/L Venous Blood Potassium 3.9 (3.6-5.2) mmol/L Random Vancomycin ug/mL Blood Type Antibody Screen Crossmatch BBK History Checked 11/11/18 11/11/18 Range/Units 11:07 09:55 WBC (4.8-10.8) K/uL RBC (4.40-5.90) Mil/uL Hgb (12.0-18.0) g/dL Hct (35.0-51.0) % MCV (80.0-94.0) fl MCH (27.0-31.0) pg MCHC (33.0-37.0) g/dL RDW (11.5-14.5) % Plt Count (130-400) K/uL MPV (7.2-11.7) fl Neut % (Auto) (50.0-75.0) % Lymph % (Auto) (20.0-40.0) % [place] % (Auto) (0.0-10.0) % Eos % (Auto) (0.0-4.0) % Baso % (Auto) (0.0-2.0) % Neut # (Auto) (1.8-7.0) K/uL Lymph # (Auto) (1.0-4.3) K/uL [place] # (Auto) (0.0-0.8) K/uL Eos # (Auto) (0.0-0.7) K/uL Baso # (Auto) (0.0-0.2) K/uL Neutrophils % (Manual) 88 H (42-75) % Band Neutrophils % 1 (0-2) % Lymphocytes % (Manual) 8 L (20-50) % Monocytes % (Manual) 3 (0-10) % Hypersegmented Polys Present Platelet Estimate Increased H (NORMAL) Giant Platelets Present Hypochromasia (manual) Slight Anisocytosis (manual) Moderate APTT (25.6-37.1) Seconds pCO2 (35-45) mm/Hg pO2 (30-55) mm/Hg HCO3 (21-28) mmol/L ABG pH (7.35-7.45) ABG Total CO2 (22-28) mmol/L ABG O2 Saturation (95-98) % ABG Base Excess (-2.0-3.0) mmol/L Dorian Test ABG Potassium (3.6-5.2) mmol/L VBG pH (7.32-7.43) VBG pCO2 (40-60) mmHg VBG HCO3 mmol/L VBG Total CO2 (22-28) mmol/L VBG O2 Sat (Calc) (40-65) % VBG Base Excess (0.0-2.0) mmol/L VBG Potassium (3.6-5.2) mmol/L A-a O2 Difference mm/Hg Sodium (132-148) mmol/L Chloride (98-107) mmol/L Glucose (75-110) mg/dL Lactate (0.7-2.1) mmol/L Vent Mode Mechanical Rate FiO2 % Tidal Volume PEEP Blood Gas Comments Crit Value Called To Crit Value Called By Crit Value Read Back Blood Gas Notified Time Potassium (3.6-5.0) MMOL/L Carbon Dioxide (22-30) mmol/L Anion Gap (10-20) BUN (9-20) mg/dl Creatinine (0.8-1.5) mg/dl Est GFR ( Amer) Est GFR (Non-Af Amer) POC Glucose (mg/dL) (65-110) mg/dL Random Glucose (75-110) mg/dL Calcium (8.4-10.2) mg/dL Phosphorus (2.5-4.5) mg/dl Magnesium (1.6-2.3) MG/DL Total Bilirubin (0.2-1.3) mg/dl AST (17-59) U/L ALT (21-72) U/L Alkaline Phosphatase (38-126) U/L Total Protein (6.3-8.2) G/DL Albumin (3.5-5.0) g/dL Globulin (2.2-3.9) gm/dL Albumin/Globulin Ratio (1.0-2.1) Arterial Blood Potassium (3.6-5.2) mmol/L Venous Blood Potassium (3.6-5.2) mmol/L Random Vancomycin ug/mL Blood Type O NEGATIVE Antibody Screen Negative Crossmatch See Detail BBK History Checked Patient has bt Laboratory Results - last 24 hr 11/11/18 11/11/18 11/11/18 09:55 11:07 14:02 WBC 13.8 H RBC 3.50 L Hgb 8.2 L D Hct 27.1 L MCV 77.6 L MCH 23.4 L MCHC 30.1 L RDW 19.3 H Plt Count 333 D MPV Neut % (Auto) Lymph % (Auto) [place] % (Auto) Eos % (Auto) Baso % (Auto) Neut # (Auto) Lymph # (Auto) [place] # (Auto) Eos # (Auto) Baso # (Auto) Neutrophils % (Manual) 88 H Band Neutrophils % 1 Lymphocytes % (Manual) 8 L Monocytes % (Manual) 3 Hypersegmented Polys Present Platelet Estimate Increased H Giant Platelets Present Hypochromasia (manual) Slight Anisocytosis (manual) Moderate APTT pCO2 pO2 HCO3 ABG pH ABG Total CO2 ABG O2 Saturation ABG Base Excess Dorian Test ABG Potassium VBG pH VBG pCO2 VBG HCO3 VBG Total CO2 VBG O2 Sat (Calc) VBG Base Excess VBG Potassium A-a O2 Difference Sodium Chloride Glucose Lactate Vent Mode Mechanical Rate FiO2 Tidal Volume PEEP Blood Gas Comments Crit Value Called To Crit Value Called By Crit Value Read Back Blood Gas Notified Time Potassium Carbon Dioxide Anion Gap BUN Creatinine Est GFR ( Amer) Est GFR (Non-Af Amer) POC Glucose (mg/dL) Random Glucose Calcium Phosphorus Magnesium Total Bilirubin AST ALT Alkaline Phosphatase Total Protein Albumin Globulin Albumin/Globulin Ratio Arterial Blood Potassium Venous Blood Potassium Random Vancomycin Blood Type O NEGATIVE Antibody Screen Negative Crossmatch See Detail BBK History Checked Patient has bt 11/11/18 11/11/18 11/11/18 14:05 15:00 18:35 WBC RBC Hgb Hct MCV MCH MCHC RDW Plt Count MPV Neut % (Auto) Lymph % (Auto) [place] % (Auto) Eos % (Auto) Baso % (Auto) Neut # (Auto) Lymph # (Auto) [place] # (Auto) Eos # (Auto) Baso # (Auto) Neutrophils % (Manual) Band Neutrophils % Lymphocytes % (Manual) Monocytes % (Manual) Hypersegmented Polys Platelet Estimate Giant Platelets Hypochromasia (manual) Anisocytosis (manual) APTT 30.8 pCO2 pO2 31 HCO3 ABG pH ABG Total CO2 ABG O2 Saturation ABG Base Excess Dorian Test ABG Potassium VBG pH 7.31 L VBG pCO2 37 L VBG HCO3 18.2 VBG Total CO2 19.7 L VBG O2 Sat (Calc) 52.3 VBG Base Excess -7.0 L VBG Potassium 3.9 A-a O2 Difference Sodium 141.0 Chloride 105.0 Glucose 166 H Lactate 8.3 H* Vent Mode Mechanical Rate FiO2 21.0 Tidal Volume PEEP Blood Gas Comments Lac=8.3 Crit Value Called To shana Hall Crit Value Called By 22 Crit Value Read Back Y Blood Gas Notified Time 1413 Potassium Carbon Dioxide Anion Gap BUN Creatinine Est GFR ( Amer) Est GFR (Non-Af Amer) POC Glucose (mg/dL) Random Glucose Calcium Phosphorus Magnesium Total Bilirubin AST ALT Alkaline Phosphatase Total Protein Albumin Globulin Albumin/Globulin Ratio Arterial Blood Potassium Venous Blood Potassium 3.9 Random Vancomycin 23.4 Blood Type Antibody Screen Crossmatch BBK History Checked 11/11/18 11/11/18 11/11/18 18:35 18:35 18:39 WBC 13.3 H RBC 4.23 L Hgb 10.0 L Hct 33.4 L MCV 79.2 L MCH 23.7 L MCHC 29.9 L RDW 19.6 H Plt Count 496 H D MPV 8.3 Neut % (Auto) 83.8 H Lymph % (Auto) 9.1 L [place] % (Auto) 6.8 Eos % (Auto) 0.2 Baso % (Auto) 0.1 Neut # (Auto) 11.1 H Lymph # (Auto) 1.2 [place] # (Auto) 0.9 H Eos # (Auto) 0.0 Baso # (Auto) 0.0 Neutrophils % (Manual) Band Neutrophils % Lymphocytes % (Manual) Monocytes % (Manual) Hypersegmented Polys Platelet Estimate Giant Platelets Hypochromasia (manual) Anisocytosis (manual) APTT pCO2 53 H pO2 89 HCO3 17.4 L ABG pH 7.17 L* ABG Total CO2 20.9 L ABG O2 Saturation 96.3 ABG Base Excess -9.5 L Dorian Test Yes ABG Potassium 4.2 VBG pH VBG pCO2 VBG HCO3 VBG Total CO2 VBG O2 Sat (Calc) VBG Base Excess VBG Potassium A-a O2 Difference 201.0 Sodium 140 139.0 Chloride 110 H 107.0 Glucose 208 H Lactate 4.2 H* Vent Mode Prvc/ac Mechanical Rate 12 FiO2 50.0 Tidal Volume 600 PEEP 5 Blood Gas Comments Lac=4.2 Crit Value Called To shana [place] Crit Value Called By 22 Crit Value Read Back Y Blood Gas Notified Time 1846 Potassium 4.0 Carbon Dioxide 19 L Anion Gap 15 BUN 28 H Creatinine 5.4 H Est GFR ( Amer) 14 Est GFR (Non-Af Amer) 11 POC Glucose (mg/dL) Random Glucose 198 H Calcium 7.3 L Phosphorus 3.5 Magnesium 1.3 L Total Bilirubin 0.4 AST 287 H D ALT 258 H D Alkaline Phosphatase 105 Total Protein 6.7 Albumin 2.9 L D Globulin 3.8 Albumin/Globulin Ratio 0.8 L Arterial Blood Potassium 4.2 Venous Blood Potassium Random Vancomycin Blood Type Antibody Screen Crossmatch BBK History Checked 11/11/18 11/11/18 11/12/18 21:21 21:42 04:21 WBC RBC Hgb Hct MCV MCH MCHC RDW Plt Count MPV Neut % (Auto) Lymph % (Auto) [place] % (Auto) Eos % (Auto) Baso % (Auto) Neut # (Auto) Lymph # (Auto) [place] # (Auto) Eos # (Auto) Baso # (Auto) Neutrophils % (Manual) Band Neutrophils % Lymphocytes % (Manual) Monocytes % (Manual) Hypersegmented Polys Platelet Estimate Giant Platelets Hypochromasia (manual) Anisocytosis (manual) APTT pCO2 35 33 L pO2 89 118 H HCO3 21.5 21.3 ABG pH 7.37 7.38 ABG Total CO2 21.3 L 20.5 L ABG O2 Saturation 98.5 H 98.8 H ABG Base Excess -4.4 L -4.7 L Dorian Test Yes Yes ABG Potassium 4.4 4.9 VBG pH VBG pCO2 VBG HCO3 VBG Total CO2 VBG O2 Sat (Calc) VBG Base Excess VBG Potassium A-a O2 Difference 224.0 197.0 Sodium 138.0 136.0 Chloride 106.0 106.0 Glucose 252 H 263 H Lactate 3.2 H 3.9 H Vent Mode Prvc/ac Prvc ac Mechanical Rate 20 20 FiO2 50.0 50.0 Tidal Volume 600 600 PEEP Blood Gas Comments Lac=3.2 Crit Value Called To suki Onofre Crit Value Called By 22 Crit Value Read Back Y Blood Gas Notified Time 2157 Potassium Carbon Dioxide Anion Gap BUN Creatinine Est GFR ( Amer) Est GFR (Non-Af Amer) POC Glucose (mg/dL) 210 H Random Glucose Calcium Phosphorus Magnesium Total Bilirubin AST ALT Alkaline Phosphatase Total Protein Albumin Globulin Albumin/Globulin Ratio Arterial Blood Potassium 4.4 4.9 Venous Blood Potassium Random Vancomycin Blood Type Antibody Screen Crossmatch BBK History Checked 11/12/18 11/12/18 11/12/18 04:30 04:30 04:30 WBC 13.9 H RBC 3.93 L Hgb 9.4 L Hct 30.7 L MCV 77.9 L MCH 23.9 L MCHC 30.7 L RDW 19.4 H Plt Count 335 D MPV 8.4 Neut % (Auto) 86.8 H Lymph % (Auto) 8.4 L [place] % (Auto) 4.6 Eos % (Auto) 0.0 Baso % (Auto) 0.2 Neut # (Auto) 12.1 H Lymph # (Auto) 1.2 [place] # (Auto) 0.6 Eos # (Auto) 0.0 Baso # (Auto) 0.0 Neutrophils % (Manual) Band Neutrophils % Lymphocytes % (Manual) Monocytes % (Manual) Hypersegmented Polys Platelet Estimate Giant Platelets Hypochromasia (manual) Anisocytosis (manual) APTT pCO2 pO2 HCO3 ABG pH ABG Total CO2 ABG O2 Saturation ABG Base Excess Dorian Test ABG Potassium VBG pH VBG pCO2 VBG HCO3 VBG Total CO2 VBG O2 Sat (Calc) VBG Base Excess VBG Potassium A-a O2 Difference Sodium 140 Chloride 106 Glucose Lactate Vent Mode Mechanical Rate FiO2 Tidal Volume PEEP Blood Gas Comments Crit Value Called To Crit Value Called By Crit Value Read Back Blood Gas Notified Time Potassium 5.0 Carbon Dioxide 19 L Anion Gap 20 BUN 35 H Creatinine 6.4 H Est GFR ( Amer) 11 Est GFR (Non-Af Amer) 9 POC Glucose (mg/dL) Random Glucose 248 H Calcium 7.8 L Phosphorus 4.9 H Magnesium 1.7 Total Bilirubin 0.4 AST 220 H D ALT 300 H Alkaline Phosphatase 95 Total Protein 6.3 Albumin 2.8 L Globulin 3.5 Albumin/Globulin Ratio 0.8 L Arterial Blood Potassium Venous Blood Potassium Random Vancomycin 23.2 Blood Type Antibody Screen Crossmatch BBK History Checked 11/12/18 11/12/18 04:39 11:01 WBC RBC Hgb Hct MCV MCH MCHC RDW Plt Count MPV Neut % (Auto) Lymph % (Auto) [place] % (Auto) Eos % (Auto) Baso % (Auto) Neut # (Auto) Lymph # (Auto) [place] # (Auto) Eos # (Auto) Baso # (Auto) Neutrophils % (Manual) Band Neutrophils % Lymphocytes % (Manual) Monocytes % (Manual) Hypersegmented Polys Platelet Estimate Giant Platelets Hypochromasia (manual) Anisocytosis (manual) APTT pCO2 pO2 HCO3 ABG pH ABG Total CO2 ABG O2 Saturation ABG Base Excess Dorian Test ABG Potassium VBG pH VBG pCO2 VBG HCO3 VBG Total CO2 VBG O2 Sat (Calc) VBG Base Excess VBG Potassium A-a O2 Difference Sodium Chloride Glucose Lactate Vent Mode Mechanical Rate FiO2 Tidal Volume PEEP Blood Gas Comments Crit Value Called To Crit Value Called By Crit Value Read Back Blood Gas Notified Time Potassium Carbon Dioxide Anion Gap BUN Creatinine Est GFR ( Amer) Est GFR (Non-Af Amer) POC Glucose (mg/dL) 224 H 268 H Random Glucose Calcium Phosphorus Magnesium Total Bilirubin AST ALT Alkaline Phosphatase Total Protein Albumin Globulin Albumin/Globulin Ratio Arterial Blood Potassium Venous Blood Potassium Random Vancomycin Blood Type Antibody Screen Crossmatch BBK History Checked Radiology Impressions: Radiology Impressions Chest X-Ray 11/11/18 18:19 IMPRESSION: Satisfactory position of recently placed endotracheal tube and nasogastric tube. Stable left upper lobe infiltrate. Chest X-Ray 11/12/18 04:00 IMPRESSION: Interval change in positioning noted. Possibly exchanging some of the prior appearance of the left lateral pulmonary infiltrate. Mm concomitant atelectasis here with or without fissural fluid is not excluded. Residual infiltrate here still suspect. Full interval small left pleural effusion present. Interval right perihilar patchy opacity-a developing patchy infiltrate here and/or accentuated focal pulmonary venous congestion considerations. Follow-up advised. Endotracheal tube and right dialysis catheter similar in appearance. . Difficulty in visualizing the prior inserted distal nasogastric coarse Fingerstick Blood Sugar Results: 268 Critical Care Progress Note - Nutrition Nutrition: Nutrition Category Date Time Status NPO Diet [DIET] Diets 11/11/18 Lunch Active <Derick Bonds - Last Filed: 11/12/18 14:02> CCU Subjective - Physician Review Subjective (Free Text): Attestation: Patient seen and examined at the bedside with Resident Dr. Valerio Foster; and I agree with his outline of plans and management documented above and below, reflecting my review of all applicable clinical data, and participation in the care of the patient throughout the day in ICU; today, November 12, 2018. Stable post extubation today for acute resp insufficiency post-op. ?? possibility of embolic event involving small bowel. ?? role for anticoagulation if feasible and agreeable with Gen Surg team.
[2018-11-12] MEDS ORDERED: Albumin Human 5% (12.5 gm/250 ml) IV ONE (15:13)
[2018-11-12] MEDS ORDERED: Sodium Chloride 0.9% 1,000 ML IV SCH (15:15)
[2018-11-12] MEDS ORDERED: Sodium Chloride 0.9% 500 ML IV ONE (15:16)
--- NOTE | 2018-11-12 15:57 | CON ---
PROCEDURE DATE: 11/11/2018 LOCATION: ICU, bed 430. TIME SPENT: 50 minutes. The patient is seen and evaluated at the bedside. Past medical, surgical, social, family history reviewed. Allergies, penicillin noted. HISTORY OF PRESENT ILLNESS: A 47-year-old male with history of diabetes mellitus type 2, hypertension, hyperlipidemia, peripheral vascular disease, status post tarsal amputation of right foot, end-stage renal disease, on hemodialysis three times a week, Saturday, Saturday and Saturday, last dialysis Saturday prior to the admission, presented to emergency room complaining of nausea, vomiting, vomited coffee ground vomitus and abdominal discomfort/pain with abdominal distention. In ER, vital signs, temperature 97.8, heart rate 114, respiratory rate 22, blood pressure 90/62 with mean arterial pressure 71. Alert, awake, oriented to name, place and time. Given lab data showed hemoglobin 11.4, white count 21. SMA-7: Sodium 135, potassium 4.5, BUN 32, creatinine 6.1. PT 15.1, INR 1.3. ABG showed lactate of 5.8. The patient was given 3-1/2 liters of normal saline, blood pressure improved to 120/66 with mean arterial pressure 81. CAT scan of the abdomen and pelvis showed high-grade small bowel obstruction associated with intestinal pneumatosis, gas noted in the portal vein and superior mesenteric vein suspicious for scattered extraluminal air in the mid and upper abdomen, admitted to ICU for further evaluation. Surgery consult placed from ER. The patient is being seen by Surgery consult for possible exploratory laparotomy. PAST MEDICAL HISTORY: As noted above. PAST SURGICAL HISTORY As noted. Amputation of the talar of the right foot. ALLERGIES: PENICILLIN. CURRENT MEDICATIONS AT HOME: Reviewed and noted. Iron sulfate, allopurinol, aspirin, calcitriol, folic acid, gabapentin, glipizide, metoprolol, nifedipine, pantoprazole, rosuvastatin, sitagliptin and vancomycin. PHYSICAL EXAMINATION: GENERAL: A middle-aged male, oriented to name, place and time. Mild distress due to abdominal discomfort. VITAL SIGNS: Temperature 98.4, heart rate of 108, blood pressure 124/92, mean arterial pressure 102, respiratory rate of 40, saturation 98% oxygen supplement 2 liters nasal cannula. HEAD, EYES, EARS, NOSE AND THROAT: Pupils are reactive. Conjunctivae pale. Sclerae white. Neck: Supple. Trachea central. CHEST: Bilateral breath sounds, clear to auscultation. HEART: Rhythm regular. S1, S2 normal intensity. No S3, S4 gallop. No audible murmur. ABDOMEN: Bowel sounds reduced, [id number] distention, tenderness in the epigastric area. EXTREMITIES: Trace edema, subtarsal amputation, right foot. SKIN: Without rash. NEUROLOGIC: Alert, awake, oriented x3. Moves all four extremities. CURRENT MEDICATIONS: Status post vancomycin, gentamicin and Flagyl. Sodium chloride at 100 mL per hour. LABORATORY DATA: WBC 21, hemoglobin 11.4, hematocrit 37, platelet count 490, neutrophils 91, lymphocytes of 5, monocytes 3.5. PT 15.1, INR 1.3. Lactate 5.8. SMA-7: Sodium 135, potassium 4.5, chloride 90, CO2 of 28, anion gap 22, BUN 32, creatinine 6.1, calcium 9.5, total bilirubin 0.8, AST 100, ALT 80, alkaline phosphatase 175. Troponins 0.013. Total protein 9.3, albumin of 4.2. IMPRESSION AND PLAN: A 47-year-old male presenting to emergency room with 1 day of nausea, vomiting, hematemesis associated with abdominal pain and abdominal distention. Hemoglobin 11.1. No active GI bleeding noted since admission. CT abdomen shows small bowel obstruction with likely perforation with air in the portal and superior mesenteric vein, hypovolemic, septic, hypotension,, responded to fluid challenge with improved blood pressure and less tachycardia and improved mental status, status post empirically on vancomycin, gentamicin and Flagyl. Seen by Surgery consult pending evaluation and possible exploratory laparotomy. Continue intravenous hydration. Use Levophed as needed to maintain systolic pressure over 100, closely monitor for respiratory compromise. Continue antibiotic to cover for gram-negatives and anaerobes. The patient is allergic to penicillin. We will continue with vancomycin 500 mg intravenous every 12 hours. Follow peak and trough level after third dose. Infectious Disease consult with Dr. lEam requested. Keep head of bed 30 degrees up. Maintain Accu-Chek with regular insulin coverage. Maintain blood sugar below 180. Gastrointestinal, presented with small bowel obstruction and noted hematemesis. Closely monitor for hemoglobin. Gastrointestinal consult requested for further evaluation of hematemesis. Gastrointestinal prophylaxis. Hold anticoagulation. Mechanically assisted device for deep vein thrombosis prophylaxis. Hold antihypertensive medications now. Accu-Chek with regular insulin coverage. Pablo Munoz MD
--- NOTE | 2018-11-12 16:01 | CON ---
DATE: 11/11/2018 HISTORY OF PRESENT ILLNESS: The patient is a 47-year-old male with a history of anemia, CVA, diabetes, gastritis, hypertension, hypercholesterolemia, and end-stage renal disease who came to the emergency room complaining of diffuse abdominal pain and vomiting copious amount of blood since last night. No diarrhea or fever. The patient is seen in the Intensive Care Unit immediately post surgery, in which an exploratory laparotomy was done with a small bowel resection and with a primary anastomosis. The operative findings were ischemic bowel with perforated viscus. The patient is once again immediately postop. PHYSICAL EXAMINATION: Again postoperative; HEENT: Within normal limits. NECK: Supple. HEART: Regular sinus rhythm. RESPIRATORY: Decreased breath sounds. ABDOMEN: Surgical signs. EXTREMITIES: Had amputation of right foot. LABORATORY DATA: CT scan of abdomen showed small-bowel obstruction with possible perforation ischemic bowel. There are episodes of hypertension with sepsis, most likely bowel source. Serum lactate level was 5.8. White count is 21, hemoglobin 11.4, and platelets of 490. Blood sugar was 265, creatinine 6.1, GFR is 10. AST is 100, ALT is 80. IMPRESSION: Ischemic bowel, perforated viscus, status post surgery with resection of ischemic bowel, acute renal failure, renal insufficiency, end-stage renal disease, on dialysis, diabetes mellitus, sepsis, and possible gastrointestinal bleed. The patient is back in ICU. At present time, he has received vancomycin and gentamicin preoperatively. Service Dog Trainer placed him on ciprofloxacin and Flagyl, which we will continue. I have ordered multiple vancomycin levels, one for tonight and one in the morning and make decision as to further antibiotic coverage. Nate Elam MD
--- NOTE | 2018-11-12 16:20 | CP.PCM.PN ---
Subjective - Date & Time of Evaluation Date of Evaluation: 11/12/18 Time of Evaluation: 16:20 - Subjective Subjective: I D NOTE BLOOD CULTURES ARE NEGATIVE AWAIT INTRAOPERATIVE CULTURES VANCOMYCIN RANDOM LEVELS ARE BOTH >20 AT PRESENT NO NEED TO ADD VANCOMYCIN TO RX Objective - Vital Signs/Intake and Output Vital Signs (last 24 hours): Temp Pulse Resp BP Pulse Ox 98.4 F 105 H 24 83/37 L 100 11/12/18 12:00 11/12/18 15:00 11/12/18 15:00 11/12/18 15:00 11/12/18 15:00 Intake and Output: 11/12/18 11/12/18 06:59 18:59 Intake Total 2056 760 Balance 2056 760 - Medications Medications: Current Medications Dextrose (Dextrose 50% Inj) 0 ml IV STAT PRN; Protocol PRN Reason: Hypoglycemia Protocol Dextrose (Glutose 15) 0 gm PO ONCE PRN; Protocol PRN Reason: Hypoglycemia Protocol Glucagon (Glucagen Diagnostic Kit) 0 mg IM STAT PRN; Protocol PRN Reason: Hypoglycemia Protocol Heparin Sodium (Porcine) (Heparin) 5,000 units SC Q8 [facility]; Protocol Last Admin: 11/12/18 08:44 Dose: 5,000 units Ciprofloxacin (Cipro 400mg/200ml Dsw) 400 mg in 200 mls @ 200 mls/hr IVPB DAILY [facility]; Protocol Last Admin: 11/12/18 08:46 Dose: 200 mls/hr Sodium Chloride (Sodium Chloride 0.9%) 1,000 mls @ 150 mls/hr IV .Q6H40M [facility] Stop: 11/12/18 18:22 Last Admin: 11/11/18 19:11 Dose: 150 mls/hr Metronidazole (Flagyl 500mg/100ml Ns) 100 mls @ 100 mls/hr IVPB Q8@0500,1300,2100 [facility]; Protocol Last Admin: 11/12/18 12:10 Dose: 100 mls/hr Sodium Chloride (Sodium Chloride 0.9%) 1,000 mls @ 175 mls/hr IV .Q5H43M [facility] Stop: 11/13/18 15:15 Last Admin: 11/12/18 15:30 Dose: 175 mls/hr Insulin Human Lispro (Humalog) 0 units SC ACHS [facility]; Protocol Last Admin: 11/12/18 11:44 Dose: 6 units Morphine Sulfate (Morphine) 2 mg IVP Q4 PRN PRN Reason: Pain, severe (8-10) Last Admin: 11/12/18 05:32 Dose: 2 mg Pantoprazole Sodium (Protonix Inj) 40 mg IVP DAILY [facility] Last Admin: 11/12/18 08:44 Dose: 40 mg - Labs Labs: 11/12/18 04:30 11/12/18 04:30 PT 15.1 Seconds (9.8-13.1) H 11/11/18 09:53 INR 1.3 11/11/18 09:53 APTT 30.8 Seconds (25.6-37.1) 11/11/18 15:00
[2018-11-12] MEDS ORDERED: Morphine 4 MG/ML VIAL IVP PRN (20:30)
[2018-11-12] MEDS: Morphine 4 MG/ML VIAL IVP PRN (20:54)
--- NOTE | 2018-11-12 21:03 | CARD ---
APPROVED REPORT Date of service: 11/12/2018 EXAM: Two-dimensional and M-mode echocardiogram with Doppler and color Doppler. Other Information Quality : GoodRhythm : NSR INDICATION Infection:Subacute bacterial endocarditis 2D DIMENSIONS IVSd1.34 (0.7-1.1cm)LVDd4.32 (3.9-5.9cm) LVOT Diameter2.27 (1.8-2.4cm)PWd1.39 (0.7-1.1cm) IVSs1.65 (0.8-1.2cm)LVDs3.06 (2.5-4.0cm) FS (%) 29.1 %PWs1.38 (0.8-1.2cm) M-Mode DIMENSIONS Left Atrium (MM)3.57 (2.5-4.0cm)IVSd1.42 (0.7-1.1cm) Aortic Root3.38 (2.2-3.7cm)LVDd5.53 (4.0-5.6cm) Aortic Cusp Exc.1.82 (1.5-2.0cm)PWd1.29 (0.7-1.1cm) IVSs1.75 cmFS (%) 40 % LVDs3.31 (2.0-3.8cm)PWs1.42 cm Aortic Valve AoV Peak Xicybljr287.0cm/sAoV VTI17.4cmAO Peak GR.5mmHg LVOT Peak Hnbrtska402.6cm/sLVOT VTI24.95cmAO Mean GR.3mmHg SHALINI (VMAX)1.73ku9IAT (VTI)2.53cm2 Mitral Valve E/A ratio0.0 TDI E/Lateral E'0.0E/Medial E'0.0 LEFT VENTRICLE The left ventricle is normal size. There is mild concentric left ventricular hypertrophy. The left ventricular systolic function is normal. The estimated ejection fraction is 60-65% No regional wall motion abnormalities noted.. Transmitral Doppler flow pattern is Grade I-abnormal relaxation pattern. No left ventricle thrombus noted on this study. There is no ventricular septal defect visualized. There is no left ventricular aneurysm. There is no mass noted in the left ventricle. RIGHT VENTRICLE The right ventricle is normal size. There is normal right ventricular wall thickness. The right ventricular systolic function is normal. ATRIA The left atrium size is normal. The right atrium size is normal. The interatrial septum is intact with no evidence for an atrial septal defect. AORTIC VALVE The aortic valve is normal in structure. No aortic regurgitation is present. There is no aortic valvular stenosis. There is no aortic valvular vegetation. MITRAL VALVE The mitral valve is normal in structure. There is no evidence of mitral valve prolapse. There is no mitral valve stenosis. There is no mitral valve regurgitation noted. TRICUSPID VALVE The tricuspid valve is normal in structure. There is no tricuspid valve regurgitation noted. There is no tricuspid valve prolapse or vegetation. There is no tricuspid valve stenosis. PULMONIC VALVE The pulmonary valve is normal in structure. There is no pulmonic valvular regurgitation. There is no pulmonic valvular stenosis. GREAT VESSELS The aortic root is normal in size. The ascending aorta is normal in size. The pulmonary artery is normal. The IVC is normal in size and collapses >50% with inspiration. PERICARDIAL EFFUSION There is no pericardial effusion. There is no pleural effusion. <Conclusion> There is mild concentric left ventricular hypertrophy. The estimated ejection fraction is 60-65% Transmitral Doppler flow pattern is Grade I-abnormal relaxation pattern. The left atrium size is normal. There is no tricuspid valve regurgitation noted. No evidence of endocarditis on this study. Correlate clinically.
[2018-11-12] MEDS: Sodium Chloride 0.9% 1,000 ML IV SCH (23:50)
[2018-11-13] MEDS: metroNIDAZOLE 500mg/100ml NS 100 ML IVPB SCH ×3 (04:39→21:33)
[2018-11-13 05:29] LABS: HEMOGLOBIN 7.3 g/dL (12.0-18.0); MEAN CELL VOLUME 76.7 fl (80.0-94.0); MEAN CORPUSCULAR HEMOGLOBIN 24.2 pg (27.0-31.0); MEAN CORPUSCULAR HGB CONC 31.6 g/dL (33.0-37.0); RED CELL DISTRIBUTION WIDTH 19.2 % (11.5-14.5); WHITE BLOOD COUNT 8.4 K/uL (4.8-10.8)
[2018-11-13 06:04] LABS: ALB/GLOB RATIO 0.8 (1.0-2.1); ALBUMIN 2.7 g/dL (3.5-5.0); CALCIUM 8.3 mg/dL (8.4-10.2)
[2018-11-13] MEDS: Ciprofloxacin 400mg/200ml D5W 400 MG/200 ML BAG IVPB SCH (08:26)
[2018-11-13] MEDS: Sodium Chloride 0.9% 1,000 ML IV SCH (08:31)
[2018-11-13] MEDS: Insulin Lispro (humaLOG) 100 Units/ml Inj SC SCH ×4 (08:33→21:34)
--- NOTE | 2018-11-13 09:01 | CP.PCM.PN ---
Subjective - Date & Time of Evaluation Date of Evaluation: 11/13/18 Time of Evaluation: 08:57 - Subjective Subjective: SURGERY NOTE FOR DR. MCCOY 47M seen and examined at bedside. Patient admits to continued abdominal pain, but states it is improving. He had nausea and vomiting overnight. NGT is in and had 450cc/overnight. Afebrile overnight. Objective - Vital Signs/Intake and Output Vital Signs (last 24 hours): Temp Pulse Resp BP Pulse Ox 98.8 F 124 H 20 151/69 H 95 11/13/18 08:00 11/13/18 08:00 11/13/18 08:00 11/13/18 08:00 11/13/18 08:00 Intake and Output: 11/13/18 11/13/18 06:59 18:59 Intake Total 1450 Output Total 450 Balance 1000 - Medications Medications: Current Medications Dextrose (Dextrose 50% Inj) 0 ml IV STAT PRN; Protocol PRN Reason: Hypoglycemia Protocol Dextrose (Glutose 15) 0 gm PO ONCE PRN; Protocol PRN Reason: Hypoglycemia Protocol Glucagon (Glucagen Diagnostic Kit) 0 mg IM STAT PRN; Protocol PRN Reason: Hypoglycemia Protocol Heparin Sodium (Porcine) (Heparin) 5,000 units SC Q8 [facility]; Protocol Last Admin: 11/13/18 08:23 Dose: 5,000 units Ciprofloxacin (Cipro 400mg/200ml Dsw) 400 mg in 200 mls @ 200 mls/hr IVPB DAILY [facility]; Protocol Last Admin: 11/13/18 08:26 Dose: 200 mls/hr Metronidazole (Flagyl 500mg/100ml Ns) 100 mls @ 100 mls/hr IVPB Q8@0500,1300,2100 [facility]; Protocol Last Admin: 11/13/18 04:39 Dose: 100 mls/hr Sodium Chloride (Sodium Chloride 0.9%) 1,000 mls @ 125 mls/hr IV .Q8H [facility] Stop: 11/13/18 15:15 Last Admin: 11/13/18 08:31 Dose: 125 mls/hr Insulin Human Lispro (Humalog) 0 units SC ACHS [facility]; Protocol Last Admin: 11/13/18 08:33 Dose: 2 units Morphine Sulfate (Morphine) 4 mg IVP Q4 PRN PRN Reason: Pain, severe (8-10) Last Admin: 11/12/18 20:54 Dose: 4 mg Morphine Sulfate (Morphine) 2 mg IVP Q4 PRN PRN Reason: Pain, moderate (4-7) Ondansetron HCl (Zofran Inj) 4 mg IVP Q4 PRN PRN Reason: Nausea/Vomiting Last Admin: 11/13/18 08:31 Dose: 4 mg Pantoprazole Sodium (Protonix Inj) 40 mg IVP DAILY [facility] Last Admin: 11/13/18 08:24 Dose: 40 mg - Labs Labs: 11/13/18 05:15 11/13/18 05:15 PT 15.1 Seconds (9.8-13.1) H 11/11/18 09:53 INR 1.3 11/11/18 09:53 APTT 30.8 Seconds (25.6-37.1) 11/11/18 15:00 - Constitutional Appears: Other (uncomfortable) - Respiratory Exam Respiratory Exam: Clear to Ausculation Bilateral, NORMAL BREATHING PATTERN - Cardiovascular Exam Cardiovascular Exam: REGULAR RHYTHM, +S1, +S2 - GI/Abdominal Exam GI & Abdominal Exam: Soft, Tenderness. absent: Firm, Guarding, Rigid, Rebound Additional comments: Dressing CDI NGT in place 450cc/overnight - Extremities Exam Additional comments: right TMA - Neurological Exam Neurological Exam: Alert, Awake - Skin Skin Exam: Dry, Intact, Normal Color, Warm Assessment and Plan - Assessment and Plan (Free Text) Assessment: 47M s/p significant small bowel resection for ischemic bowel POD#2 Plan: - NPO - IVF - Continue antibiotics - Pain control - Monitor NGT - Continue ICU management - Monitor for bowel function - DVT/GI ppx Discussed with Dr. Britany Hodges, PGY3
--- NOTE | 2018-11-13 10:17 | CP.PCM.PN ---
Subjective - Date & Time of Evaluation Date of Evaluation: 11/13/18 Time of Evaluation: 10:14 - Subjective Subjective: General Surgery Pt seen and examined this AM. He reports having some abdominal pain. He has not been OOB yet. He reports having some nausea despite having the NGT in place. (-) vomiting. He is currently off of pressors and had a HD tx yesterday. Afebrile. (-) flatus, (-) BM. Labs and vitals noted. Hgb dropped to 7.3 from 9.4. NGT output from overnight 450ml. Bedside at 10am with 350ml bilious output. (- ) blood. PE Gen: Pt laying in bed in NAD. Obese. Skin: warm and dry. (+) nonblanchable erythemaouts maculopapular rash on bilateral LE (pt states he has had this for months). (-) tender. Cardio: s1s2 RRR Lungs: (+) Rhonchi in Right lung reyes. (+) crackles to LLL. (-) tachypnea, (-) wheezing. Abd: Soft, (+) generalized tenderness, dressing clean (-) strike through, (-) rigidity, (-) peritoneal signs Extr: (+) right foot amputation, RUE: Stapled incision from recent AV fistula revision. Incision (-) erythema, (-) induration, (-) drainage A/P SBO, Ischemic Bowel, Perforated viscous POD 2 exploratory lap with small bowel resection and primary anastomosis Encourage IS, as pt has not been using it correctly, had pt return demonstration of proper use. Keep NPO Monitor NGT output Continue IV abx Continue IVF Monitor temps Monitor labs, pt for repeat CBC as per discussion in ICU rounds. Serial abdominal exams Objective - Vital Signs/Intake and Output Vital Signs (last 24 hours): Temp Pulse Resp BP Pulse Ox 98.8 F 124 H 20 151/69 H 95 11/13/18 08:00 11/13/18 08:00 11/13/18 08:00 11/13/18 08:00 11/13/18 08:00 Intake and Output: 11/13/18 11/13/18 06:59 18:59 Intake Total 1450 475 Output Total 450 Balance 1000 475 - Medications Medications: Current Medications Dextrose (Dextrose 50% Inj) 0 ml IV STAT PRN; Protocol PRN Reason: Hypoglycemia Protocol Dextrose (Glutose 15) 0 gm PO ONCE PRN; Protocol PRN Reason: Hypoglycemia Protocol Glucagon (Glucagen Diagnostic Kit) 0 mg IM STAT PRN; Protocol PRN Reason: Hypoglycemia Protocol Heparin Sodium (Porcine) (Heparin) 5,000 units SC Q8 [facility]; Protocol Last Admin: 11/13/18 08:23 Dose: 5,000 units Ciprofloxacin (Cipro 400mg/200ml Dsw) 400 mg in 200 mls @ 200 mls/hr IVPB DAILY [facility]; Protocol Last Admin: 11/13/18 08:26 Dose: 200 mls/hr Metronidazole (Flagyl 500mg/100ml Ns) 100 mls @ 100 mls/hr IVPB Q8@0500,1300,2100 [facility]; Protocol Last Admin: 11/13/18 04:39 Dose: 100 mls/hr Sodium Chloride (Sodium Chloride 0.9%) 1,000 mls @ 125 mls/hr IV .Q8H [facility] Stop: 11/13/18 15:15 Last Admin: 11/13/18 08:31 Dose: 125 mls/hr Insulin Human Lispro (Humalog) 0 units SC ACHS [facility]; Protocol Last Admin: 11/13/18 08:33 Dose: 2 units Morphine Sulfate (Morphine) 4 mg IVP Q4 PRN PRN Reason: Pain, severe (8-10) Last Admin: 11/12/18 20:54 Dose: 4 mg Morphine Sulfate (Morphine) 2 mg IVP Q4 PRN PRN Reason: Pain, moderate (4-7) Ondansetron HCl (Zofran Inj) 4 mg IVP Q4 PRN PRN Reason: Nausea/Vomiting Last Admin: 11/13/18 08:31 Dose: 4 mg Pantoprazole Sodium (Protonix Inj) 40 mg IVP DAILY [facility] Last Admin: 11/13/18 08:24 Dose: 40 mg - Labs Labs: 11/13/18 05:15 11/13/18 05:15 PT 15.1 Seconds (9.8-13.1) H 11/11/18 09:53 INR 1.3 11/11/18 09:53 APTT 30.8 Seconds (25.6-37.1) 11/11/18 15:00
[2018-11-13 10:30] LABS: HEMOGLOBIN 7.3 g/dL (12.0-18.0); MEAN CELL VOLUME 78.8 fl (80.0-94.0); MEAN CORPUSCULAR HEMOGLOBIN 23.9 pg (27.0-31.0); MEAN CORPUSCULAR HGB CONC 30.3 g/dL (33.0-37.0); RBC 3.07 Mil/uL (4.40-5.90); RED CELL DISTRIBUTION WIDTH 19.1 % (11.5-14.5); WHITE BLOOD COUNT 9.1 K/uL (4.8-10.8)
--- NOTE | 2018-11-13 10:37 | CP.PCM.PN ---
Subjective - Date & Time of Evaluation Date of Evaluation: 11/13/18 Time of Evaluation: 10:37 - Subjective Subjective: Patient in bed Not in acute distress Vomiting reported appears to be stable Vital sign stable as well Objective - Vital Signs/Intake and Output Vital Signs (last 24 hours): Temp Pulse Resp BP Pulse Ox 98.8 F 124 H 20 151/69 H 95 11/13/18 08:00 11/13/18 08:00 11/13/18 08:00 11/13/18 08:00 11/13/18 08:00 Intake and Output: 11/13/18 11/13/18 06:59 18:59 Intake Total 1450 475 Output Total 450 Balance 1000 475 - Medications Medications: Current Medications Dextrose (Dextrose 50% Inj) 0 ml IV STAT PRN; Protocol PRN Reason: Hypoglycemia Protocol Dextrose (Glutose 15) 0 gm PO ONCE PRN; Protocol PRN Reason: Hypoglycemia Protocol Glucagon (Glucagen Diagnostic Kit) 0 mg IM STAT PRN; Protocol PRN Reason: Hypoglycemia Protocol Heparin Sodium (Porcine) (Heparin) 5,000 units SC Q8 BASHIR; Protocol Last Admin: 11/13/18 08:23 Dose: 5,000 units Ciprofloxacin (Cipro 400mg/200ml Dsw) 400 mg in 200 mls @ 200 mls/hr IVPB DAILY BASHIR; Protocol Last Admin: 11/13/18 08:26 Dose: 200 mls/hr Metronidazole (Flagyl 500mg/100ml Ns) 100 mls @ 100 mls/hr IVPB Q8@0500, 1300,2100 BASHIR; Protocol Last Admin: 11/13/18 04:39 Dose: 100 mls/hr Sodium Chloride (Sodium Chloride 0.9%) 1,000 mls @ 125 mls/hr IV .Q8H BASHIR Stop: 11/13/18 15:15 Last Admin: 11/13/18 08:31 Dose: 125 mls/hr Insulin Human Lispro (Humalog) 0 units SC ACHS BASHIR; Protocol Last Admin: 11/13/18 08:33 Dose: 2 units Morphine Sulfate (Morphine) 4 mg IVP Q4 PRN PRN Reason: Pain, severe (8-10) Last Admin: 11/12/18 20:54 Dose: 4 mg Morphine Sulfate (Morphine) 2 mg IVP Q4 PRN PRN Reason: Pain, moderate (4-7) Ondansetron HCl (Zofran Inj) 4 mg IVP Q4 PRN PRN Reason: Nausea/Vomiting Last Admin: 11/13/18 08:31 Dose: 4 mg Pantoprazole Sodium (Protonix Inj) 40 mg IVP DAILY BASHIR Last Admin: 11/13/18 08:24 Dose: 40 mg - Labs Labs: 11/13/18 05:15 11/13/18 05:15 PT 15.1 Seconds (9.8-13.1) H 11/11/18 09:53 INR 1.3 11/11/18 09:53 APTT 30.8 Seconds (25.6-37.1) 11/11/18 15:00 - Constitutional Appears: No Acute Distress - Eye Exam Eye Exam: Conjunctival injection - ENT Exam ENT Exam: Mucous Membranes Moist - Neck Exam Neck Exam: absent: Lymphadenopathy - Respiratory Exam Respiratory Exam: NORMAL BREATHING PATTERN. absent: Chest Wall Tenderness - Cardiovascular Exam Cardiovascular Exam: absent: Gallop, JVD, Rubs - GI/Abdominal Exam GI & Abdominal Exam: Guarding - Extremities Exam Extremities Exam: Calf Tenderness - Back Exam Back Exam: absent: CVA tenderness (L), CVA tenderness (R) - Neurological Exam Neurological Exam: Alert - Psychiatric Exam Psychiatric exam: Normal Affect - Skin Skin Exam: absent: Cyanosis Assessment and Plan (1) ESRD (end stage renal disease) on dialysis Assessment & Plan: End-stage renal disease patient on maintenance dialysis Saturday. S/P emergency surgery regarding small bowel resection 11/11 Leukocytosis Patient status post right upper arm transposition for AV fistula about few days ago in another hospital in Ecchymosis with petechiae on the left lower leg Severe anemia In addition PMHx - T2DM, acute CVA, ESRD on HD, HTN, PSHx - Cranial surgery for CVA, EGD last 09/18 with LA grade C erosive esophagitis, gastritis and moderate stenosis at pylorus (09/2018), Anemia, HTN, HLD, NIDDM, gastroparesis, transmetatarsal amputation on the right foot Recommendation Patient need blood transfusion Antibiotics as per renal dose Continue hemodialysis Saturday Status: Acute (2) GI bleed Status: Acute (3) Ischemia, bowel Status: Acute
--- NOTE | 2018-11-13 10:49 | CP.CCUPN ---
<Louis Fosterwm - Last Filed: 11/13/18 14:26> CCU Subjective - Physician Review Subjective (Free Text): This is 47 y/o male with PMH of ESRD on HD, CVA, NIDDM, HTN, HLD, and GERD/Gastritis admitted to ICU s/p exploratory lap with small bowel resection and primary anastomosis due to ischemic bowel, POD#1. Patient seen and examined this morning, AAOx3. Patient reports abdominal pain, and nausea, denies any SOB, chest pain or dizziness. S/p HD yesterday. (-) BM, NGT in place: 450 output this morning ROS: completed and otherwise negative except for above VS: 98.8 tm, 121HR, 151/69, RR 20 PE: HEENT: no icterus, no gaze preference, Pupils 3 mm and reactive NECK: No JVD visible, supple, carotids equal upstroke bilat/no bruit CHEST: CTAB HEART: regular, distant, S1-S2, no rubs ABD: -BS, diffuse tenderness EXT: mildly swollen Extremities, R. BKA,no calf tenderness or palpable cords, distal pulses intact and symmetrical, erythematic papular lesion on b/l LEs up to the knees NEURO: s/p extubation, alert and awake SKIN: warm and dry, erythematic papular lesion on b/l LEs up to the knees LABS: WBC 9.1 H/H: 7.3/23.0 Plt: 216 CMP: Significant for BUN/Cr 26/4.3, Ca 8.3, , Phos 5, AST/ALT 185/321 Bcx: No growth after [address] abdo/Pelvis: 11/11: Intestinal Pneumatosis IMPRESSION/MAJOR PROBLEM: ISCHEMIC SMALL BOWEL, S/P EX LAP, SMALL BOWEL RESECTION AND ANASTOMOSIS, POD#1 SEPTIC SHOCK ESRD Anemia CVA DM HTN GASTRITIS PLAN: - SURGERY RECOMMENDATIONS APPRECIATED, C/W MANAGEMENT, CONT NGT/IVF/NPO - S/p, CON PER NEPHRO - CONTINUE ABX PER ID, F/U BCX, METRO + CIPRO - H/H LOW: TRANSFUSE 2 U PRBCS TODAY - C/W PROTONIX - C/W GLIPIZIDE AND ACHS SLIDING SCALE - C/W HEPARIN - C/W PAIN MANAGEMENT - C/W ZOFRAN CASE DISCUSSED WITH DR. LISA CCU Objective - Vital Signs / Intake & Output Vital Signs (Last 4 hours): Vital Signs Temp Pulse Resp BP Pulse Ox 11/13/18 08:00 98.8 F 124 H 20 151/69 H 95 Intake and Output (Last 8hrs): Intake & Output 11/12/18 11/13/18 11/13/18 22:59 06:59 14:59 Intake Total 1350 1450 475 Output Total 1000 450 Balance 350 1000 475 Weight 253 lb 4.8 oz Intake: IV 350 1250 375 Intake, Piggyback 500 200 100 Oral 0 0 Albumin 500 Output: Gastric Amount 450 Stomach 450 Urine 0 0 Urine, Voided 0 0 Stool 0 Other 1000 - Medications Active Medications: Active Medications Generic Name Dose Route Start Last Admin Trade Name Freq PRN Reason Stop Dose Admin Dextrose 0 ml 11/12/18 11:17 Dextrose 50% Inj IV STAT PRN Hypoglycemia Protocol Protocol Dextrose 0 gm 11/12/18 11:17 Glutose 15 PO ONCE PRN Hypoglycemia Protocol Protocol Glucagon 0 mg 11/12/18 11:17 Glucagen Diagnostic Kit IM STAT PRN Hypoglycemia Protocol Protocol Heparin Sodium (Porcine) 5,000 units 11/12/18 01:00 11/13/18 08:23 Heparin SC 5,000 units Q8 BASHIR Administration Protocol Ciprofloxacin 400 mg in 200 mls @ 200 mls/hr 11/12/18 09:00 11/13/18 08:26 Cipro 400mg/200ml Dsw IVPB 200 mls/hr DAILY BASHIR Administration Protocol Metronidazole 100 mls @ 100 mls/hr 11/11/18 21:00 11/13/18 04:39 Flagyl 500mg/100ml Ns IVPB 100 mls/hr Q8@0500,1300,2100 BASHIR Administration Protocol Sodium Chloride 1,000 mls @ 125 mls/hr 11/12/18 23:25 11/13/18 08:31 Sodium Chloride 0.9% IV 11/13/18 15:15 125 mls/hr .Q8H BASHIR Administration Insulin Human Lispro 0 units 11/12/18 11:30 11/13/18 08:33 Humalog SC 2 units ACHS BASHIR Administration Protocol Morphine Sulfate 4 mg 11/12/18 20:29 11/12/18 20:54 Morphine IVP 4 mg Q4 PRN Administration Pain, severe (8-10) Morphine Sulfate 2 mg 11/12/18 20:30 Morphine IVP Q4 PRN Pain, moderate (4-7) Ondansetron HCl 4 mg 11/13/18 06:59 11/13/18 08:31 Zofran Inj IVP 4 mg Q4 PRN Administration Nausea/Vomiting Pantoprazole Sodium 40 mg 11/11/18 14:00 11/13/18 08:24 Protonix Inj IVP 40 mg DAILY BASHIR Administration - Patient Studies Lab Studies: Microbiology Studies 11/11/18 14:30 MRSA Culture (Admit) - Final Naris MRSA DETECTED 11/11/18 18:00 Blood Culture - Preliminary Blood-Thru Central Line NO GROWTH AFTER 24 HOURS 11/11/18 11:00 Blood Culture - Preliminary Blood-Thru Central Line NO GROWTH AFTER 24 HOURS Lab Studies 11/13/18 11/13/18 11/13/18 Range/Units 10:27 06:29 05:15 WBC 9.1 (4.8-10.8) K/uL RBC 3.07 L (4.40-5.90) Mil/uL Hgb 7.3 L (12.0-18.0) g/dL Hct 24.2 L (35.0-51.0) % MCV 78.8 L D (80.0-94.0) fl MCH 23.9 L (27.0-31.0) pg MCHC 30.3 L (33.0-37.0) g/dL RDW 19.1 H (11.5-14.5) % Plt Count 238 (130-400) K/uL Sodium 138 (132-148) mmol/l Potassium 4.5 (3.6-5.0) MMOL/L Chloride 104 (98-107) mmol/L Carbon Dioxide 27 (22-30) mmol/L Anion Gap 12 (10-20) BUN 26 H (9-20) mg/dl Creatinine 4.3 H (0.8-1.5) mg/dl Est GFR ( Amer) 18 Est GFR (Non-Af Amer) 15 POC Glucose (mg/dL) 157 H (65-110) mg/dL Random Glucose 151 H (75-110) mg/dL Calcium 8.3 L (8.4-10.2) mg/dL Phosphorus 5.0 H (2.5-4.5) mg/dl Magnesium 1.8 (1.6-2.3) MG/DL Total Bilirubin 0.4 (0.2-1.3) mg/dl AST 185 H (17-59) U/L ALT 321 H (21-72) U/L Alkaline Phosphatase 75 (38-126) U/L Total Protein 6.1 L (6.3-8.2) G/DL Albumin 2.7 L (3.5-5.0) g/dL Globulin 3.4 (2.2-3.9) gm/dL Albumin/Globulin Ratio 0.8 L (1.0-2.1) 11/13/18 11/12/18 11/12/18 Range/Units 05:15 21:22 15:58 WBC 8.4 (4.8-10.8) K/uL RBC 3.00 L (4.40-5.90) Mil/uL Hgb 7.3 L D (12.0-18.0) g/dL Hct 23.0 L (35.0-51.0) % MCV 76.7 L (80.0-94.0) fl MCH 24.2 L (27.0-31.0) pg MCHC 31.6 L (33.0-37.0) g/dL RDW 19.2 H (11.5-14.5) % Plt Count 216 D (130-400) K/uL Sodium (132-148) mmol/l Potassium (3.6-5.0) MMOL/L Chloride (98-107) mmol/L Carbon Dioxide (22-30) mmol/L Anion Gap (10-20) BUN (9-20) mg/dl Creatinine (0.8-1.5) mg/dl Est GFR ( Amer) Est GFR (Non-Af Amer) POC Glucose (mg/dL) 108 135 H (65-110) mg/dL Random Glucose (75-110) mg/dL Calcium (8.4-10.2) mg/dL Phosphorus (2.5-4.5) mg/dl Magnesium (1.6-2.3) MG/DL Total Bilirubin (0.2-1.3) mg/dl AST (17-59) U/L ALT (21-72) U/L Alkaline Phosphatase (38-126) U/L Total Protein (6.3-8.2) G/DL Albumin (3.5-5.0) g/dL Globulin (2.2-3.9) gm/dL Albumin/Globulin Ratio (1.0-2.1) 11/12/18 Range/Units 11:01 WBC (4.8-10.8) K/uL RBC (4.40-5.90) Mil/uL Hgb (12.0-18.0) g/dL Hct (35.0-51.0) % MCV (80.0-94.0) fl MCH (27.0-31.0) pg MCHC (33.0-37.0) g/dL RDW (11.5-14.5) % Plt Count (130-400) K/uL Sodium (132-148) mmol/l Potassium (3.6-5.0) MMOL/L Chloride (98-107) mmol/L Carbon Dioxide (22-30) mmol/L Anion Gap (10-20) BUN (9-20) mg/dl Creatinine (0.8-1.5) mg/dl Est GFR ( Amer) Est GFR (Non-Af Amer) POC Glucose (mg/dL) 268 H (65-110) mg/dL Random Glucose (75-110) mg/dL Calcium (8.4-10.2) mg/dL Phosphorus (2.5-4.5) mg/dl Magnesium (1.6-2.3) MG/DL Total Bilirubin (0.2-1.3) mg/dl AST (17-59) U/L ALT (21-72) U/L Alkaline Phosphatase (38-126) U/L Total Protein (6.3-8.2) G/DL Albumin (3.5-5.0) g/dL Globulin (2.2-3.9) gm/dL Albumin/Globulin Ratio (1.0-2.1) Laboratory Results - last 24 hr 11/12/18 11/12/18 11/12/18 11:01 15:58 21:22 WBC RBC Hgb Hct MCV MCH MCHC RDW Plt Count Sodium Potassium Chloride Carbon Dioxide Anion Gap BUN Creatinine Est GFR ( Amer) Est GFR (Non-Af Amer) POC Glucose (mg/dL) 268 H 135 H 108 Random Glucose Calcium Phosphorus Magnesium Total Bilirubin AST ALT Alkaline Phosphatase Total Protein Albumin Globulin Albumin/Globulin Ratio 11/13/18 11/13/18 11/13/18 05:15 05:15 06:29 WBC 8.4 RBC 3.00 L Hgb 7.3 L D Hct 23.0 L MCV 76.7 L MCH 24.2 L MCHC 31.6 L RDW 19.2 H Plt Count 216 D Sodium 138 Potassium 4.5 Chloride 104 Carbon Dioxide 27 Anion Gap 12 BUN 26 H Creatinine 4.3 H Est GFR ( Amer) 18 Est GFR (Non-Af Amer) 15 POC Glucose (mg/dL) 157 H Random Glucose 151 H Calcium 8.3 L Phosphorus 5.0 H Magnesium 1.8 Total Bilirubin 0.4 AST 185 H ALT 321 H Alkaline Phosphatase 75 Total Protein 6.1 L Albumin 2.7 L Globulin 3.4 Albumin/Globulin Ratio 0.8 L 11/13/18 10:27 WBC 9.1 RBC 3.07 L Hgb 7.3 L Hct 24.2 L MCV 78.8 L D MCH 23.9 L MCHC 30.3 L RDW 19.1 H Plt Count 238 Sodium Potassium Chloride Carbon Dioxide Anion Gap BUN Creatinine Est GFR ( Amer) Est GFR (Non-Af Amer) POC Glucose (mg/dL) Random Glucose Calcium Phosphorus Magnesium Total Bilirubin AST ALT Alkaline Phosphatase Total Protein Albumin Globulin Albumin/Globulin Ratio Radiology Impressions: Radiology Impressions Chest X-Ray 11/12/18 04:00 IMPRESSION: Interval change in positioning noted. Possibly exchanging some of the prior appearance of the left lateral pulmonary infiltrate. Mm concomitant atelectasis here with or without fissural fluid is not excluded. Residual infiltrate here still suspect. Full interval small left pleural effusion present. Interval right perihilar patchy opacity-a developing patchy infiltrate here and/or accentuated focal pulmonary venous congestion considerations. Follow-up advised. Endotracheal tube and right dialysis catheter similar in appearance. . Difficulty in visualizing the prior inserted distal nasogastric coarse EKG/Cardiology Studies: Cardiology / EKG Studies 11/13/18 07:46 EKG [ELECTROCARDIOGRAM] Routine Comment: Mode Of Transportation: PORTABLE Reason For Exam: EKG changes. PRE OP:: N Fingerstick Blood Sugar Results: 152 Critical Care Progress Note - Nutrition Nutrition: Nutrition Category Date Time Status NPO Diet [DIET] Diets 11/11/18 Lunch Active <LisaDerick Madison - Last Filed: 11/13/18 15:22> CCU Subjective - Physician Review Subjective (Free Text): Attestation: Patient seen and examined at the bedside with Resident Dr. Valerio Foster; and I agree with his outline of plans and management documented above and below, reflecting my review of all applicable clinical data, and participation in the care of the patient throughout the day in ICU; today, November 13, 2018.
--- NOTE | 2018-11-13 11:55 | PN ---
DATE: 11/13/2018 SUBJECTIVE: The patient seen and examined. Interim events noted. Consults noted and appreciated. Nephrology, Actuarial Associate Surgery followup and interventions noted and appreciated. The patient remains in Intensive Care Unit. The patient was extubated yesterday. The patient is also off vasopressors. The patient feels okay. Abdominal pain improving. No complaint of chest pain or shortness of breath. PHYSICAL EXAMINATION: GENERAL: The patient is in no acute distress. VITAL SIGNS: Shows tachycardia with a heart rate of 130. HEENT: Pupils reacting to light. HEART: S1 and S2. Tachycardic. No significant murmur, gallop, or rub is heard. LUNGS: Shows good bilateral air exchange. ABDOMEN: The patient is status post surgery. No sign of acute complications. EXTREMITIES: The patient is status post multiple amputations. No edema. No calf swelling. No tenderness. No acute ischemia. CENTRAL NERVOUS SYSTEM: Essentially unchanged. DIAGNOSTIC DATA: Available diagnostic data reviewed. ASSESSMENT AND PLAN: Infectious Disease followup and intervention noted and appreciated. Overall, the patient is slowly improving. Plan as ordered. Joel Lake MD
[2018-11-13] MEDS ORDERED: Sodium Chloride 0.9% 1,000 ML IV SCH (21:45)
--- NOTE | 2018-11-14 00:24 | CARD ---
APPROVED REPORT Date of service: 11/13/2018 EKG Measurement Heart [id number] <Conclusion> Sinus tachycardia Otherwise normal ECG
[2018-11-14] MEDS: metroNIDAZOLE 500mg/100ml NS 100 ML IVPB SCH ×3 (04:54→21:47)
[2018-11-14 05:50] LABS: HEMOGLOBIN 8.7 g/dL (12.0-18.0); MEAN CELL VOLUME 78.2 fl (80.0-94.0); MEAN CORPUSCULAR HEMOGLOBIN 24.8 pg (27.0-31.0); MEAN CORPUSCULAR HGB CONC 31.8 g/dL (33.0-37.0); RBC 3.51 Mil/uL (4.40-5.90); RED CELL DISTRIBUTION WIDTH 18.9 % (11.5-14.5); WHITE BLOOD COUNT 10.9 K/uL (4.8-10.8)
[2018-11-14 06:11] LABS: ALB/GLOB RATIO 0.8 (1.0-2.1); ALBUMIN 2.8 g/dL (3.5-5.0); CALCIUM 8.5 mg/dL (8.4-10.2)
[2018-11-14] MEDS: Insulin Lispro (humaLOG) 100 Units/ml Inj SC SCH ×4 (08:00→21:57)
--- NOTE | 2018-11-14 08:36 | CP.PCM.PN ---
<Sesar Morin - Last Filed: 11/14/18 09:30> Subjective - Date & Time of Evaluation Date of Evaluation: 11/14/18 Time of Evaluation: 08:34 - Subjective Subjective: General Surgery Progress Note for Dr. Beck 47M seen and evaluated at bedside this morning. No acute events overnight. Complains of mild abdominal pain. NGT 450cc output. Not ambulating. Due for dialysis. Denies f/c, n/v/d, SOB, CP, headache, dizziness, or urinary symptoms. Objective - Vital Signs/Intake and Output Vital Signs (last 24 hours): Temp Pulse Resp BP Pulse Ox 98.3 F 98 H 21 148/71 100 11/14/18 00:00 11/14/18 05:25 11/14/18 05:25 11/14/18 05:25 11/14/18 05:25 Intake and Output: 11/14/18 11/14/18 06:59 18:59 Intake Total 1095 Output Total 1250 Balance -155 - Medications Medications: Current Medications Dextrose (Dextrose 50% Inj) 0 ml IV STAT PRN; Protocol PRN Reason: Hypoglycemia Protocol Dextrose (Glutose 15) 0 gm PO ONCE PRN; Protocol PRN Reason: Hypoglycemia Protocol Glucagon (Glucagen Diagnostic Kit) 0 mg IM STAT PRN; Protocol PRN Reason: Hypoglycemia Protocol Heparin Sodium (Porcine) (Heparin) 5,000 units SC Q8 BASHIR; Protocol Last Admin: 11/14/18 01:38 Dose: Not Given Ciprofloxacin (Cipro 400mg/200ml Dsw) 400 mg in 200 mls @ 200 mls/hr IVPB DAILY BASHIR; Protocol Last Admin: 11/13/18 08:26 Dose: 200 mls/hr Metronidazole (Flagyl 500mg/100ml Ns) 100 mls @ 100 mls/hr IVPB Q8@0500,1300,2100 BASHIR; Protocol Last Admin: 11/14/18 04:54 Dose: 100 mls/hr Insulin Human Lispro (Humalog) 0 units SC ACHS BASHIR; Protocol Last Admin: 11/13/18 21:34 Dose: Not Given Morphine Sulfate (Morphine) 4 mg IVP Q4 PRN PRN Reason: Pain, severe (8-10) Last Admin: 11/12/18 20:54 Dose: 4 mg Morphine Sulfate (Morphine) 2 mg IVP Q4 PRN PRN Reason: Pain, moderate (4-7) Last Admin: 11/14/18 05:05 Dose: 2 mg Ondansetron HCl (Zofran Inj) 4 mg IVP Q4 PRN PRN Reason: Nausea/Vomiting Last Admin: 11/14/18 05:04 Dose: 4 mg Pantoprazole Sodium (Protonix Inj) 40 mg IVP DAILY BASHIR Last Admin: 11/13/18 08:24 Dose: 40 mg - Labs Labs: 11/14/18 04:25 11/14/18 04:25 PT 15.1 Seconds (9.8-13.1) H 11/11/18 09:53 INR 1.3 11/11/18 09:53 APTT 30.8 Seconds (25.6-37.1) 11/11/18 15:00 - Constitutional Appears: Well, No Acute Distress - Head Exam Head Exam: ATRAUMATIC, NORMAL INSPECTION, NORMOCEPHALIC - Eye Exam Eye Exam: EOMI - ENT Exam ENT Exam: Mucous Membranes Dry - Respiratory Exam Respiratory Exam: NORMAL BREATHING PATTERN. absent: Respiratory Distress - Cardiovascular Exam Cardiovascular Exam: REGULAR RHYTHM - GI/Abdominal Exam GI & Abdominal Exam: Distended, Soft, Tenderness, Normal Bowel Sounds Additional comments: midline incision c/d/i - Neurological Exam Neurological Exam: Alert, Awake - Skin Skin Exam: Dry, Intact, Normal Color, Warm Assessment and Plan - Assessment and Plan (Free Text) Assessment: 47M s/p exploratory laparotomy w/ SB resection POD3 Plan: Continue to monitor bowel function Continue to monitor NGT output Continue to monitor vitals Continue to monitor H/H - transfused 2uPRBCs Midline dressing removed - incisions c/d/i IV Abx Antiemetics and analgesics PRN Further recommendations per Dr. Kiran Morin PGY1 <Fernando Beck - Last Filed: 11/14/18 09:36> Objective - Vital Signs/Intake and Output Vital Signs (last 24 hours): Temp Pulse Resp BP Pulse Ox 98.3 F 98 H 21 148/71 100 11/14/18 00:00 11/14/18 05:25 11/14/18 05:25 11/14/18 05:25 11/14/18 05:25 Intake and Output: 11/14/18 11/14/18 06:59 18:59 Intake Total 1095 Output Total 1250 Balance -155 - Medications Medications: Current Medications Dextrose (Dextrose 50% Inj) 0 ml IV STAT PRN; Protocol PRN Reason: Hypoglycemia Protocol Dextrose (Glutose 15) 0 gm PO ONCE PRN; Protocol PRN Reason: Hypoglycemia Protocol Glucagon (Glucagen Diagnostic Kit) 0 mg IM STAT PRN; Protocol PRN Reason: Hypoglycemia Protocol Heparin Sodium (Porcine) (Heparin) 5,000 units SC Q8 BASHIR; Protocol Last Admin: 11/14/18 01:38 Dose: Not Given Ciprofloxacin (Cipro 400mg/200ml Dsw) 400 mg in 200 mls @ 200 mls/hr IVPB DAILY BASHIR; Protocol Last Admin: 11/13/18 08:26 Dose: 200 mls/hr Metronidazole (Flagyl 500mg/100ml Ns) 100 mls @ 100 mls/hr IVPB Q8@0500,1300,2100 BASHIR; Protocol Last Admin: 11/14/18 04:54 Dose: 100 mls/hr Insulin Human Lispro (Humalog) 0 units SC ACHS BASHIR; Protocol Last Admin: 11/14/18 08:00 Dose: Not Given Morphine Sulfate (Morphine) 4 mg IVP Q4 PRN PRN Reason: Pain, severe (8-10) Last Admin: 11/12/18 20:54 Dose: 4 mg Morphine Sulfate (Morphine) 2 mg IVP Q4 PRN PRN Reason: Pain, moderate (4-7) Last Admin: 11/14/18 05:05 Dose: 2 mg Ondansetron HCl (Zofran Inj) 4 mg IVP Q4 PRN PRN Reason: Nausea/Vomiting Last Admin: 11/14/18 05:04 Dose: 4 mg Pantoprazole Sodium (Protonix Inj) 40 mg IVP DAILY BASHIR Last Admin: 11/13/18 08:24 Dose: 40 mg - Labs Labs: 11/14/18 04:25 11/14/18 04:25 PT 15.1 Seconds (9.8-13.1) H 11/11/18 09:53 INR 1.3 11/11/18 09:53 APTT 30.8 Seconds (25.6-37.1) 11/11/18 15:00 Assessment and Plan - Assessment and Plan (Free Text) Plan: Addendum: pt seen and examined at bedside, no overnight events. Pt s/p transfusion of PRBC for drop in Hb. Pt reports incisional pain but improving. Remains with high NGT out ~950cc/24hrs but NGT to far in, withdrawn to 65cm. no flatus or BM. PE: NAD, alert, awake abd: soft, distended, incisional tenderness, no peritoneal signs, incision with miranda in place c/d/i s/p: exlap with small bowel resection pain control monitor NGT output/24hrs awaiting return of bowel function will continue NPO possible clears if NGT output decrease in next 24hrs vs TPN cont medical management
--- NOTE | 2018-11-14 09:39 | CP.PCM.PN ---
Subjective - Date & Time of Evaluation Date of Evaluation: 11/14/18 Time of Evaluation: 09:38 - Subjective Subjective: Patient sitting up in the chair Appears to be comfortable Vital signs noted to be stable NG tube with about 450 cc drainage Objective - Vital Signs/Intake and Output Vital Signs (last 24 hours): Temp Pulse Resp BP Pulse Ox 98.3 F 98 H 21 148/71 100 11/14/18 00:00 11/14/18 05:25 11/14/18 05:25 11/14/18 05:25 11/14/18 05:25 Intake and Output: 11/14/18 11/14/18 06:59 18:59 Intake Total 1095 Output Total 1250 Balance -155 - Medications Medications: Current Medications Dextrose (Dextrose 50% Inj) 0 ml IV STAT PRN; Protocol PRN Reason: Hypoglycemia Protocol Dextrose (Glutose 15) 0 gm PO ONCE PRN; Protocol PRN Reason: Hypoglycemia Protocol Glucagon (Glucagen Diagnostic Kit) 0 mg IM STAT PRN; Protocol PRN Reason: Hypoglycemia Protocol Heparin Sodium (Porcine) (Heparin) 5,000 units SC Q8 BASHIR; Protocol Last Admin: 11/14/18 09:36 Dose: 5,000 units Ciprofloxacin (Cipro 400mg/200ml Dsw) 400 mg in 200 mls @ 200 mls/hr IVPB DAILY BASHIR; Protocol Last Admin: 11/13/18 08:26 Dose: 200 mls/hr Metronidazole (Flagyl 500mg/100ml Ns) 100 mls @ 100 mls/hr IVPB Q8@0500,1300,2100 BASHIR; Protocol Last Admin: 11/14/18 04:54 Dose: 100 mls/hr Insulin Human Lispro (Humalog) 0 units SC ACHS BASHIR; Protocol Last Admin: 11/14/18 08:00 Dose: Not Given Morphine Sulfate (Morphine) 4 mg IVP Q4 PRN PRN Reason: Pain, severe (8-10) Last Admin: 11/12/18 20:54 Dose: 4 mg Morphine Sulfate (Morphine) 2 mg IVP Q4 PRN PRN Reason: Pain, moderate (4-7) Last Admin: 11/14/18 05:05 Dose: 2 mg Ondansetron HCl (Zofran Inj) 4 mg IVP Q4 PRN PRN Reason: Nausea/Vomiting Last Admin: 11/14/18 05:04 Dose: 4 mg Pantoprazole Sodium (Protonix Inj) 40 mg IVP DAILY BASHIR Last Admin: 11/14/18 09:36 Dose: 40 mg - Labs Labs: 11/14/18 04:25 11/14/18 04:25 PT 15.1 Seconds (9.8-13.1) H 11/11/18 09:53 INR 1.3 11/11/18 09:53 APTT 30.8 Seconds (25.6-37.1) 11/11/18 15:00 - Constitutional Appears: No Acute Distress - Eye Exam Eye Exam: Conjunctival injection - ENT Exam ENT Exam: Mucous Membranes Moist - Neck Exam Neck Exam: absent: Lymphadenopathy - Respiratory Exam Respiratory Exam: NORMAL BREATHING PATTERN. absent: Chest Wall Tenderness - GI/Abdominal Exam GI & Abdominal Exam: Guarding - Extremities Exam Extremities Exam: absent: Calf Tenderness - Back Exam Back Exam: absent: CVA tenderness (L), CVA tenderness (R) - Neurological Exam Neurological Exam: Alert - Psychiatric Exam Psychiatric exam: Normal Affect - Skin Skin Exam: absent: Cyanosis Assessment and Plan (1) ESRD (end stage renal disease) on dialysis Assessment & Plan: End-stage renal disease patient on maintenance dialysis Saturday. S/P emergency surgery regarding small bowel resection 11/11 Leukocytosis Patient status post right upper arm transposition for AV fistula about few days ago in another hospital in Ecchymosis with petechiae on the left lower leg Severe anemia In addition PMHx - T2DM, acute CVA, ESRD on HD, HTN, PSHx - Cranial surgery for CVA, EGD last 09/18 with LA grade C erosive esophagitis, gastritis and moderate stenosis at pylorus (09/2018), Anemia, HTN, HLD, NIDDM, gastroparesis, transmetatarsal amputation on the right foot The plan Hemoglobin came up since yesterday 8.7 Antibiotics as per renal dose As noted by the surgical team and intensive care team Hemodialysis scheduled shortly. Order was given Status: Acute (2) GI bleed Status: Acute (3) Ischemia, bowel Status: Acute
--- NOTE | 2018-11-14 10:45 | CP.CCUPN ---
<Louis Fosterwm - Last Filed: 11/14/18 10:38> CCU Subjective - Physician Review Subjective (Free Text): This is 47 y/o male with PMH of ESRD on HD, CVA, NIDDM, HTN, HLD, and GERD/Gastritis admitted to ICU s/p exploratory lap with small bowel resection and primary anastomosis due to ischemic bowel, POD#2. Patient seen and examined this morning, AAOx3. Patient reports abdominal pain, and nausea, denies any SOB, chest pain or dizziness. HD today. (-) BM, NGT in place: 450 output over night ROS: completed and otherwise negative except for above VS: 98.3 tm, 98 HR, 151/71, RR 20 PE: HEENT: no icterus, no gaze preference, Pupils 3 mm and reactive NECK: No JVD visible, supple, carotids equal upstroke bilat/no bruit CHEST: CTAB HEART: regular, distant, S1-S2, no rubs ABD: -BS, diffuse tenderness, midline incision c/d/i EXT: mildly swollen Extremities, R. BKA,no calf tenderness or palpable cords, distal pulses intact and symmetrical, erythematic papular lesion on b/l LEs up to the knees NEURO: s/p extubation, alert and awake SKIN: warm and dry, erythematic papular lesion on b/l LEs up to the knees LABS: WBC 10.9 H/H: 8.7/27.4 Plt: 258 CMP: Significant for BUN/Cr 34/5, Bcx: No growth after [address] abdo/Pelvis: 11/11: Intestinal Pneumatosis IMPRESSION/MAJOR PROBLEM: ISCHEMIC SMALL BOWEL, S/P EX LAP, SMALL BOWEL RESECTION AND ANASTOMOSIS, POD#2 SEPTIC SHOCK ESRD Anemia CVA DM HTN GASTRITIS PLAN: - SURGERY RECOMMENDATIONS APPRECIATED, C/W MANAGEMENT, CONT NGT/IVF/NPO, POSSIBLE SHORT TERM TPN - S/p, CON PER NEPHRO - CONTINUE ABX PER ID, F/U BCX, METRO + CIPRO - H/H LOW: TRANSFUSE 2 U PRBCS 11/13 - C/W PROTONIX - C/W GLIPIZIDE AND ACHS SLIDING SCALE - C/W HEPARIN - C/W PAIN MANAGEMENT - C/W ZOFRAN CASE DISCUSSED WITH DR. LISA 11/14/18 10:38 CCU Objective - Vital Signs / Intake & Output Intake and Output (Last 8hrs): Intake & Output 11/13/18 11/14/18 11/14/18 22:59 06:59 14:59 Intake Total 920 425 Output Total 1300 450 Balance -380 -25 Intake: IV 250 100 Oral 0 0 Blood Product 650 325 Red Blood Cells Cpd As1 325 Lr Unit [id number] Red Blood Cells Cpd As1 325 Lr Unit [id number] Other 20 Red Blood Cells Cpd As1 20 Lr Unit [id number] Output: Gastric Amount 500 450 Stomach 500 450 Urine 800 Urine, Voided 800 - Medications Active Medications: Active Medications Generic Name Dose Route Start Last Admin Trade Name Freq PRN Reason Stop Dose Admin Dextrose 0 ml 11/12/18 11:17 Dextrose 50% Inj IV STAT PRN Hypoglycemia Protocol Protocol Dextrose 0 gm 11/12/18 11:17 Glutose 15 PO ONCE PRN Hypoglycemia Protocol Protocol Glucagon 0 mg 11/12/18 11:17 Glucagen Diagnostic Kit IM STAT PRN Hypoglycemia Protocol Protocol Heparin Sodium (Porcine) 5,000 units 11/12/18 01:00 11/14/18 09:36 Heparin SC 5,000 units Q8 BASHIR Administration Protocol Ciprofloxacin 400 mg in 200 mls @ 200 mls/hr 11/12/18 09:00 11/13/18 08:26 Cipro 400mg/200ml Dsw IVPB 200 mls/hr DAILY BASHIR Administration Protocol Metronidazole 100 mls @ 100 mls/hr 11/11/18 21:00 11/14/18 04:54 Flagyl 500mg/100ml Ns IVPB 100 mls/hr Q8@0500,1300,2100 BASHIR Administration Protocol Insulin Human Lispro 0 units 11/12/18 11:30 11/14/18 08:00 Humalog SC Not Given ACHS BASHIR Protocol Morphine Sulfate 4 mg 11/12/18 20:29 11/12/18 20:54 Morphine IVP 4 mg Q4 PRN Administration Pain, severe (8-10) Morphine Sulfate 2 mg 11/12/18 20:30 11/14/18 05:05 Morphine IVP 2 mg Q4 PRN Administration Pain, moderate (4-7) Ondansetron HCl 4 mg 11/13/18 06:59 11/14/18 05:04 Zofran Inj IVP 4 mg Q4 PRN Administration Nausea/Vomiting Pantoprazole Sodium 40 mg 11/11/18 14:00 11/14/18 09:36 Protonix Inj IVP 40 mg DAILY BASHIR Administration - Patient Studies Lab Studies: Microbiology Studies 11/11/18 18:00 Blood Culture - Preliminary Blood-Thru Central Line NO GROWTH AFTER 48 HOURS 11/11/18 11:00 Blood Culture - Preliminary Blood-Thru Central Line NO GROWTH AFTER 48 HOURS Lab Studies 11/14/18 11/14/18 11/14/18 Range/Units 06:21 04:25 04:25 WBC 10.9 H (4.8-10.8) K/uL RBC 3.51 L (4.40-5.90) Mil/uL Hgb 8.7 L (12.0-18.0) g/dL Hct 27.4 L (35.0-51.0) % MCV 78.2 L (80.0-94.0) fl MCH 24.8 L (27.0-31.0) pg MCHC 31.8 L (33.0-37.0) g/dL RDW 18.9 H (11.5-14.5) % Plt Count 258 (130-400) K/uL Sodium 142 (132-148) mmol/l Potassium 4.2 (3.6-5.0) MMOL/L Chloride 106 (98-107) mmol/L Carbon Dioxide 25 (22-30) mmol/L Anion Gap 15 (10-20) BUN 34 H (9-20) mg/dl Creatinine 5.0 H (0.8-1.5) mg/dl Est GFR ( Amer) 15 Est GFR (Non-Af Amer) 13 POC Glucose (mg/dL) 154 H (65-110) mg/dL Random Glucose 163 H (75-110) mg/dL Calcium 8.5 (8.4-10.2) mg/dL Phosphorus 5.3 H (2.5-4.5) mg/dl Magnesium 2.0 (1.6-2.3) MG/DL Total Bilirubin 0.6 (0.2-1.3) mg/dl AST 107 H D (17-59) U/L ALT 284 H (21-72) U/L Alkaline Phosphatase 134 H D (38-126) U/L Total Protein 6.2 L (6.3-8.2) G/DL Albumin 2.8 L (3.5-5.0) g/dL Globulin 3.4 (2.2-3.9) gm/dL Albumin/Globulin Ratio 0.8 L (1.0-2.1) Random Vancomycin ug/mL Blood Type Antibody Screen Crossmatch BBK History Checked 11/13/18 11/13/18 11/13/18 Range/Units 20:58 16:30 13:50 WBC (4.8-10.8) K/uL RBC (4.40-5.90) Mil/uL Hgb (12.0-18.0) g/dL Hct (35.0-51.0) % MCV (80.0-94.0) fl MCH (27.0-31.0) pg MCHC (33.0-37.0) g/dL RDW (11.5-14.5) % Plt Count (130-400) K/uL Sodium (132-148) mmol/l Potassium (3.6-5.0) MMOL/L Chloride (98-107) mmol/L Carbon Dioxide (22-30) mmol/L Anion Gap (10-20) BUN (9-20) mg/dl Creatinine (0.8-1.5) mg/dl Est GFR ( Amer) Est GFR (Non-Af Amer) POC Glucose (mg/dL) 165 H 145 H (65-110) mg/dL Random Glucose (75-110) mg/dL Calcium (8.4-10.2) mg/dL Phosphorus (2.5-4.5) mg/dl Magnesium (1.6-2.3) MG/DL Total Bilirubin (0.2-1.3) mg/dl AST (17-59) U/L ALT (21-72) U/L Alkaline Phosphatase (38-126) U/L Total Protein (6.3-8.2) G/DL Albumin (3.5-5.0) g/dL Globulin (2.2-3.9) gm/dL Albumin/Globulin Ratio (1.0-2.1) Random Vancomycin 14.9 ug/mL Blood Type Antibody Screen Crossmatch BBK History Checked 11/13/18 11/11/18 Range/Units 11:07 11:07 WBC (4.8-10.8) K/uL RBC (4.40-5.90) Mil/uL Hgb (12.0-18.0) g/dL Hct (35.0-51.0) % MCV (80.0-94.0) fl MCH (27.0-31.0) pg MCHC (33.0-37.0) g/dL RDW (11.5-14.5) % Plt Count (130-400) K/uL Sodium (132-148) mmol/l Potassium (3.6-5.0) MMOL/L Chloride (98-107) mmol/L Carbon Dioxide (22-30) mmol/L Anion Gap (10-20) BUN (9-20) mg/dl Creatinine (0.8-1.5) mg/dl Est GFR ( Amer) Est GFR (Non-Af Amer) POC Glucose (mg/dL) 185 H (65-110) mg/dL Random Glucose (75-110) mg/dL Calcium (8.4-10.2) mg/dL Phosphorus (2.5-4.5) mg/dl Magnesium (1.6-2.3) MG/DL Total Bilirubin (0.2-1.3) mg/dl AST (17-59) U/L ALT (21-72) U/L Alkaline Phosphatase (38-126) U/L Total Protein (6.3-8.2) G/DL Albumin (3.5-5.0) g/dL Globulin (2.2-3.9) gm/dL Albumin/Globulin Ratio (1.0-2.1) Random Vancomycin ug/mL Blood Type O NEGATIVE Antibody Screen Negative Crossmatch See Detail BBK History Checked Patient has bt Laboratory Results - last 24 hr 11/11/18 11/13/18 11/13/18 11:07 11:07 13:50 WBC RBC Hgb Hct MCV MCH MCHC RDW Plt Count Sodium Potassium Chloride Carbon Dioxide Anion Gap BUN Creatinine Est GFR ( Amer) Est GFR (Non-Af Amer) POC Glucose (mg/dL) 185 H Random Glucose Calcium Phosphorus Magnesium Total Bilirubin AST ALT Alkaline Phosphatase Total Protein Albumin Globulin Albumin/Globulin Ratio Random Vancomycin 14.9 Blood Type O NEGATIVE Antibody Screen Negative Crossmatch See Detail BBK History Checked Patient has bt 11/13/18 11/13/18 11/14/18 16:30 20:58 04:25 WBC 10.9 H RBC 3.51 L Hgb 8.7 L Hct 27.4 L MCV 78.2 L MCH 24.8 L MCHC 31.8 L RDW 18.9 H Plt Count 258 Sodium Potassium Chloride Carbon Dioxide Anion Gap BUN Creatinine Est GFR ( Amer) Est GFR (Non-Af Amer) POC Glucose (mg/dL) 145 H 165 H Random Glucose Calcium Phosphorus Magnesium Total Bilirubin AST ALT Alkaline Phosphatase Total Protein Albumin Globulin Albumin/Globulin Ratio Random Vancomycin Blood Type Antibody Screen Crossmatch BBK History Checked 11/14/18 11/14/18 04:25 06:21 WBC RBC Hgb Hct MCV MCH MCHC RDW Plt Count Sodium 142 Potassium 4.2 Chloride 106 Carbon Dioxide 25 Anion Gap 15 BUN 34 H Creatinine 5.0 H Est GFR ( Amer) 15 Est GFR (Non-Af Amer) 13 POC Glucose (mg/dL) 154 H Random Glucose 163 H Calcium 8.5 Phosphorus 5.3 H Magnesium 2.0 Total Bilirubin 0.6 AST 107 H D ALT 284 H Alkaline Phosphatase 134 H D Total Protein 6.2 L Albumin 2.8 L Globulin 3.4 Albumin/Globulin Ratio 0.8 L Random Vancomycin Blood Type Antibody Screen Crossmatch BBK History Checked Fingerstick Blood Sugar Results: 154 Critical Care Progress Note - Nutrition Nutrition: Nutrition Category Date Time Status NPO Diet [DIET] Diets 11/11/18 Lunch Active <Derick Lisa Madison - Last Filed: 11/14/18 12:20> CCU Subjective - Physician Review Subjective (Free Text): Attestation: Patient seen and examined at the bedside with Resident Dr. Valerio Foster; and I agree with his outline of plans and management documented above and below, reflecting my review of all applicable clinical data, and participation in the care of the patient throughout the day in ICU; today, November 14, 2018.
[2018-11-14] MEDS: Ciprofloxacin 400mg/200ml D5W 400 MG/200 ML BAG IVPB SCH (11:56)
[2018-11-14] MEDS: Morphine 4 MG/ML VIAL IVP PRN ×2 (17:23→22:59)
[2018-11-14] MEDS: Labetalol 5mg/ml (4ml) IVP PRN (19:04)
[2018-11-15] MEDS: Morphine 4 MG/ML VIAL IVP PRN ×3 (04:59→22:32)
--- NOTE | 2018-11-15 06:59 | CP.PCM.PN ---
<PatienceSesar - Last Filed: 11/15/18 06:57> Subjective - Date & Time of Evaluation Date of Evaluation: 11/15/18 Time of Evaluation: 06:57 - Subjective Subjective: General Surgery Progress Note for Dr. Beck/Dr. Kyle 47M seen and evaluated at bedside. Patient pulled out NGT last night. No vomiting, however patient is spitting. Mild abdominal pain. Not ambulating. Denies f/c, n/v/d, SOB, CP, headaches, dizziness, or urinary symptoms. Objective - Vital Signs/Intake and Output Vital Signs (last 24 hours): Temp Pulse Resp BP Pulse Ox 97.9 F 95 H 22 136/81 97 11/15/18 00:00 11/15/18 04:00 11/15/18 04:00 11/15/18 04:00 11/15/18 04:00 Intake and Output: 11/14/18 11/15/18 18:59 06:59 Intake Total 100 100 Output Total 3500 400 Balance -3400 -300 - Medications Medications: Current Medications Dextrose (Dextrose 50% Inj) 0 ml IV STAT PRN; Protocol PRN Reason: Hypoglycemia Protocol Dextrose (Glutose 15) 0 gm PO ONCE PRN; Protocol PRN Reason: Hypoglycemia Protocol Glucagon (Glucagen Diagnostic Kit) 0 mg IM STAT PRN; Protocol PRN Reason: Hypoglycemia Protocol Heparin Sodium (Porcine) (Heparin) 5,000 units SC Q8 BASHIR; Protocol Last Admin: 11/15/18 00:27 Dose: 5,000 units Ciprofloxacin (Cipro 400mg/200ml Dsw) 400 mg in 200 mls @ 200 mls/hr IVPB DAILY BASHIR; Protocol Last Admin: 11/14/18 11:56 Dose: 200 mls/hr Insulin Human Lispro (Humalog) 0 units SC ACHS BASHIR; Protocol Last Admin: 11/14/18 21:57 Dose: Not Given Labetalol HCl (Trandate) 20 mg IVP Q3 PRN PRN Reason: Systolic Blood Pressure Last Admin: 11/14/18 19:04 Dose: 20 mg Morphine Sulfate (Morphine) 4 mg IVP Q4 PRN PRN Reason: Pain, severe (8-10) Last Admin: 11/15/18 04:59 Dose: 4 mg Morphine Sulfate (Morphine) 2 mg IVP Q4 PRN PRN Reason: Pain, moderate (4-7) Last Admin: 11/14/18 05:05 Dose: 2 mg Ondansetron HCl (Zofran Inj) 4 mg IVP Q4 PRN PRN Reason: Nausea/Vomiting Last Admin: 11/15/18 04:59 Dose: 4 mg Pantoprazole Sodium (Protonix Inj) 40 mg IVP DAILY BASHIR Last Admin: 11/14/18 09:36 Dose: 40 mg - Labs Labs: 11/14/18 04:25 11/14/18 04:25 PT 15.1 Seconds (9.8-13.1) H 11/11/18 09:53 INR 1.3 11/11/18 09:53 APTT 30.8 Seconds (25.6-37.1) 11/11/18 15:00 - Constitutional Appears: Non-toxic, No Acute Distress - Head Exam Head Exam: ATRAUMATIC, NORMAL INSPECTION, NORMOCEPHALIC - Eye Exam Eye Exam: EOMI - ENT Exam ENT Exam: Mucous Membranes Dry - Respiratory Exam Respiratory Exam: NORMAL BREATHING PATTERN. absent: Respiratory Distress - Cardiovascular Exam Cardiovascular Exam: REGULAR RHYTHM - GI/Abdominal Exam GI & Abdominal Exam: Distended, Soft, Tenderness, Normal Bowel Sounds - Neurological Exam Neurological Exam: Alert, Awake - Psychiatric Exam Psychiatric exam: Normal Affect, Normal Mood - Skin Skin Exam: Dry, Intact, Normal Color, Warm Assessment and Plan - Assessment and Plan (Free Text) Assessment: 47M s/p exploratory laparotomy w/ SB resection Plan: Monitor bowel function Monitor vitals PICC could not be placed yesterday - most likely Saturday for TPN Patient refusing reinsertion of NGT Encouraged to ambulate IV Abx IVF Further recommendations per Dr. Kiran Morin PGY1 <Dylan Cormier - Last Filed: 11/15/18 16:14> Subjective - Date & Time of Evaluation Time of Evaluation: 16:00 - Subjective Subjective: Patient was seen and examined at the bedside. Agree with resident's note above. No flatus or bowel movements yet. Objective - Vital Signs/Intake and Output Vital Signs (last 24 hours): Temp Pulse Resp BP Pulse Ox 98.7 F 95 H 16 155/80 H 93 L 11/15/18 12:00 11/15/18 14:00 11/15/18 14:00 11/15/18 14:00 11/15/18 14:00 Intake and Output: 11/15/18 11/15/18 06:59 18:59 Intake Total 100 380 Output Total 400 0 Balance -300 380 - Medications Medications: Current Medications Dextrose (Dextrose 50% Inj) 0 ml IV STAT PRN; Protocol PRN Reason: Hypoglycemia Protocol Dextrose (Glutose 15) 0 gm PO ONCE PRN; Protocol PRN Reason: Hypoglycemia Protocol Glucagon (Glucagen Diagnostic Kit) 0 mg IM STAT PRN; Protocol PRN Reason: Hypoglycemia Protocol Heparin Sodium (Porcine) (Heparin) 5,000 units SC Q8 BASHIR; Protocol Last Admin: 11/15/18 08:47 Dose: 5,000 units Ciprofloxacin (Cipro 400mg/200ml Dsw) 400 mg in 200 mls @ 200 mls/hr IVPB DAILY BASHIR; Protocol Last Admin: 11/15/18 08:47 Dose: 200 mls/hr Metronidazole (Flagyl 500mg/100ml Ns) 100 mls @ 100 mls/hr IVPB Q8 BASHIR; Protocol Last Admin: 11/15/18 08:47 Dose: 100 mls/hr Insulin Human Lispro (Humalog) 0 units SC ACHS BASHIR; Protocol Last Admin: 11/15/18 11:44 Dose: 2 units Labetalol HCl (Trandate) 20 mg IVP Q3 PRN PRN Reason: Systolic Blood Pressure Last Admin: 11/14/18 19:04 Dose: 20 mg Morphine Sulfate (Morphine) 4 mg IVP Q4 PRN PRN Reason: Pain, severe (8-10) Last Admin: 11/15/18 11:42 Dose: 4 mg Morphine Sulfate (Morphine) 2 mg IVP Q4 PRN PRN Reason: Pain, moderate (4-7) Last Admin: 11/14/18 05:05 Dose: 2 mg Ondansetron HCl (Zofran Inj) 4 mg IVP Q4 PRN PRN Reason: Nausea/Vomiting Last Admin: 11/15/18 08:50 Dose: 4 mg Pantoprazole Sodium (Protonix Inj) 40 mg IVP DAILY BASHIR Last Admin: 11/15/18 08:48 Dose: 40 mg - Labs Labs: 11/15/18 05:30 11/15/18 05:30 PT 15.1 Seconds (9.8-13.1) H 11/11/18 09:53 INR 1.3 11/11/18 09:53 APTT 30.8 Seconds (25.6-37.1) 11/11/18 15:00 - GI/Abdominal Exam Additional comments: soft, hair-incisional tenderness, ND, hypoactive bowel sounds, no rebound, no guarding, incision clean, no erythema, no drainage, miranda in place Assessment and Plan - Assessment and Plan (Free Text) Plan: - Keep NPO - IV fluids - Clear for transfer out of the ICU from the general surgery stand point - Repeat labs in am - Will follow
[2018-11-15 07:08] LABS: HEMOGLOBIN 8.9 g/dL (12.0-18.0); MEAN CORPUSCULAR HEMOGLOBIN 24.4 pg (27.0-31.0); MEAN CORPUSCULAR HGB CONC 30.8 g/dL (33.0-37.0); RBC 3.66 Mil/uL (4.40-5.90); RED CELL DISTRIBUTION WIDTH 18.8 % (11.5-14.5); WHITE BLOOD COUNT 8.9 K/uL (4.8-10.8)
[2018-11-15] MEDS: Insulin Lispro (humaLOG) 100 Units/ml Inj SC SCH ×4 (07:47→21:59)
[2018-11-15 08:01] LABS: ALB/GLOB RATIO 0.8 (1.0-2.1); ALBUMIN 2.9 g/dL (3.5-5.0); CALCIUM 8.4 mg/dL (8.4-10.2)
[2018-11-15] MEDS: metroNIDAZOLE 500mg/100ml NS 100 ML IVPB SCH ×2 (08:47→16:45)
[2018-11-15] MEDS: Ciprofloxacin 400mg/200ml D5W 400 MG/200 ML BAG IVPB SCH (08:47)
--- NOTE | 2018-11-15 11:32 | PN ---
DATE: 11/15/2018 SUBJECTIVE: The patient seen and examined. Interim events noted. Consult noted and appreciated. The remains in intensive care unit. The patient feels better. No chest pain. No shortness of breath. ____. No new complaint. Abdominal pain is getting better. PHYSICAL EXAMINATION GENERAL: The patient is in no acute distress. VITAL SIGNS: Vital signs are stable although the heart rate remains slightly elevated at 110, but much better than before. HEART: S1, S2 normal regular. LUNGS: Good bilateral air exchange. ABDOMEN: Soft. Nontender. No sign of acute abdomen. EXTREMITIES: The patient is status post amputations. No edema. No calf swelling. No tenderness. No acute ischemia. CENTRAL NERVOUS SYSTEM: Essentially unchanged. DIAGNOSTIC DATA: Available diagnostic data reviewed. Telemetry monitoring shows episodes of sinus tachycardia. No other acute significant arrhythmia. ASSESSMENT AND PLAN: Overall, the patient is slowly improving. Plan as ordered. Joel Lake MD
--- NOTE | 2018-11-15 16:41 | CP.PCM.PN ---
Subjective - Date & Time of Evaluation Date of Evaluation: 11/15/18 Time of Evaluation: 16:44 - Subjective Subjective: I D NOTE NO CULTURE RESULTS NO CHANGE IN RX RANDOM VANCOMYCIN AGAIN ORDERED Objective - Vital Signs/Intake and Output Vital Signs (last 24 hours): Temp Pulse Resp BP Pulse Ox 98.3 F 97 H 23 134/65 93 L 11/15/18 16:00 11/15/18 16:00 11/15/18 16:00 11/15/18 16:00 11/15/18 14:00 Intake and Output: 11/15/18 11/15/18 06:59 18:59 Intake Total 100 380 Output Total 400 0 Balance -300 380 - Medications Medications: Current Medications Dextrose (Dextrose 50% Inj) 0 ml IV STAT PRN; Protocol PRN Reason: Hypoglycemia Protocol Dextrose (Glutose 15) 0 gm PO ONCE PRN; Protocol PRN Reason: Hypoglycemia Protocol Glucagon (Glucagen Diagnostic Kit) 0 mg IM STAT PRN; Protocol PRN Reason: Hypoglycemia Protocol Heparin Sodium (Porcine) (Heparin) 5,000 units SC Q8 BASHIR; Protocol Last Admin: 11/15/18 08:47 Dose: 5,000 units Ciprofloxacin (Cipro 400mg/200ml Dsw) 400 mg in 200 mls @ 200 mls/hr IVPB DAILY BASHIR; Protocol Last Admin: 11/15/18 08:47 Dose: 200 mls/hr Metronidazole (Flagyl 500mg/100ml Ns) 100 mls @ 100 mls/hr IVPB Q8 BASHIR; Protocol Last Admin: 11/15/18 08:47 Dose: 100 mls/hr Insulin Human Lispro (Humalog) 0 units SC ACHS BASHIR; Protocol Last Admin: 11/15/18 11:44 Dose: 2 units Labetalol HCl (Trandate) 20 mg IVP Q3 PRN PRN Reason: Systolic Blood Pressure Last Admin: 11/14/18 19:04 Dose: 20 mg Morphine Sulfate (Morphine) 4 mg IVP Q4 PRN PRN Reason: Pain, severe (8-10) Last Admin: 11/15/18 11:42 Dose: 4 mg Morphine Sulfate (Morphine) 2 mg IVP Q4 PRN PRN Reason: Pain, moderate (4-7) Last Admin: 11/14/18 05:05 Dose: 2 mg Ondansetron HCl (Zofran Inj) 4 mg IVP Q4 PRN PRN Reason: Nausea/Vomiting Last Admin: 11/15/18 08:50 Dose: 4 mg Pantoprazole Sodium (Protonix Inj) 40 mg IVP DAILY [facility] Last Admin: 11/15/18 08:48 Dose: 40 mg - Labs Labs: 11/15/18 05:30 11/15/18 05:30 PT 15.1 Seconds (9.8-13.1) H 11/11/18 09:53 INR 1.3 11/11/18 09:53 APTT 30.8 Seconds (25.6-37.1) 11/11/18 15:00
--- NOTE | 2018-11-15 21:13 | PN ---
DATE: 11/15/2018 CRITICAL CARE PROGRESS NOTE. LOCATION: The patient in room 430, ICU. TIME SPENT: Thirty-five minutes. SUBJECTIVE: The patient is seen and evaluated at bedside. Past medical, surgical, social, and family history reviewed. ALLERGIES: TO PENICILLIN NOTED. SUBJECTIVE: A 47-year-old male with diabetes mellitus type 2; hypertension; hyperlipidemia; peripheral vascular disease; status post subtarsal amputation, right foot; end-stage renal disease, on hemodialysis three times a week, Saturday, Saturday, and Saturday; admitted with abdominal pain secondary to ischemic bowel, status post laparotomy and resection of the ischemic bowel and violet-to-end anastomosis, postop day 4, extubated. Remains wakeful. Follows commands appropriate, overnight. PHYSICAL EXAMINATION: VITAL SIGNS: Temperature 99, heart rate 101, blood pressure 146/73 to 162/98, respiratory rate 18 to 33 thoracoabdominal. Intake 200, output 3900, negative balance of 3700. HEAD, EYES, EARS, NOSE, AND THROAT: Pupils reactive. Conjunctivae pale. Sclerae white. NECK: No jugular venous distention. No carotid bruits. CHEST: Bilateral breath sounds. Clear to auscultation. HEART: Rhythm regular. S1 and S2 normal. ABDOMEN: Bowel sounds present, soft. Vague diffuse tenderness. Mildly distended. EXTREMITIES: Swollen extremities. Subtarsal amputation, right foot. NEUROLOGIC: Alert and awake. Follows commands appropriate. SKIN: Without rash. CURRENT MEDICATIONS: Ciprofloxacin 400 mg IV daily, heparin 5000 units subcu every 8 hours, labetalol 20 mg IV every 3 hours p.r.n. for elevated systolic pressure, Flagyl 500 mg every 8 hours, morphine 4 mg IV every 4 hours p.r.n. for severe pain, Zofran 4 mg IV every 4 hours p.r.n. for nausea and vomiting, Protonix 40 mg IV daily. LABORATORY DATA: WBC 8.9, hemoglobin 8.9, hematocrit 28.9, and platelet count of 229. SMA-7: Sodium 141, potassium 3.7, chloride 103, CO2 of 26, blood urine nitrogen 22, creatinine 4.1. Random glucose 183, calcium 8.4, phosphorus 4.4, magnesium 1.9, total bilirubin 0.5, AST 63, ALT 213, alkaline phosphatase 127, total protein 6.4, albumin 2.9. Toxicology, random vancomycin 14.9. Microbiology: Blood culture, no growth. MRSA nasal smear negative. Chest x-ray on 11/12. IMPRESSION AND PLAN: 1. Neurologic: Alert and awake. Follows commands appropriately, status post septic metabolic encephalopathy. 2. Pulmonary: Stable without effusion or any pneumothorax. 3. Cardiac: Hypertension labile, on labetalol. 4. Renal: End-stage renal disease, on hemodialysis. Next dialysis due on Saturday. 5. Gastrointestinal: Elevated liver enzymes, trending down. Status post resection and end-to-end anastomosis secondary to ischemic bowel. Appreciate General Surgery followup. Advance diet as recommended by General Surgery. Keep head on bed 30-degree up. Deep vein thrombosis and gastrointestinal prophylaxis. Pablo Munoz MD
--- NOTE | 2018-11-15 23:47 | CP.PCM.PN ---
<Hernando Gibbonsa - Last Filed: 11/15/18 23:48> Subjective - Date & Time of Evaluation Date of Evaluation: 11/15/18 Time of Evaluation: 23:40 - Subjective Subjective: Called by RN at 2257 due to pt having elevated BP reading; pt recent transfer from ICU to [facility]. However, pt NPO and has orders for labetalol IVP which he was receiving in ICU. Pt examined - in no acute distress, states he feels good, no headache, no chest pains. Discussed with pharmacy - IVP antihypertensive cannot be given on this unit. Pt's RN Cherri spoke with salesperson surgical appliances Dr. Morin -- pt to continue to be NPO, not to receive medications by mouth. Assessment: 47 yo M with ESRD, htn, with elevated BP. Plan: Pt will be transferred to telemetry unit to receive IV labetalol as ordered; all orders continued. Objective - Vital Signs/Intake and Output Vital Signs (last 24 hours): Temp Pulse Resp BP Pulse Ox 98.3 F 98 H 22 188/83 H 93 L 11/15/18 16:00 11/15/18 18:00 11/15/18 20:00 11/15/18 20:00 11/15/18 20:00 Intake and Output: 11/15/18 11/16/18 18:59 06:59 Intake Total 500 Output Total 350 Balance 150 - Medications Medications: Current Medications Dextrose (Dextrose 50% Inj) 0 ml IV STAT PRN; Protocol PRN Reason: Hypoglycemia Protocol Dextrose (Glutose 15) 0 gm PO ONCE PRN; Protocol PRN Reason: Hypoglycemia Protocol Glucagon (Glucagen Diagnostic Kit) 0 mg IM STAT PRN; Protocol PRN Reason: Hypoglycemia Protocol Heparin Sodium (Porcine) (Heparin) 5,000 units SC Q8 [facility]; Protocol Last Admin: 11/15/18 16:45 Dose: 5,000 units Ciprofloxacin (Cipro 400mg/200ml Dsw) 400 mg in 200 mls @ 200 mls/hr IVPB DAILY [facility]; Protocol Last Admin: 11/15/18 08:47 Dose: 200 mls/hr Metronidazole (Flagyl 500mg/100ml Ns) 100 mls @ 100 mls/hr IVPB Q8 [facility]; Protocol Last Admin: 11/15/18 16:45 Dose: 100 mls/hr Insulin Human Lispro (Humalog) 0 units SC ACHS [facility]; Protocol Last Admin: 11/15/18 21:59 Dose: Not Given Labetalol HCl (Trandate) 20 mg IVP Q3 PRN PRN Reason: Systolic Blood Pressure Last Admin: 11/14/18 19:04 Dose: 20 mg Morphine Sulfate (Morphine) 4 mg IVP Q4 PRN PRN Reason: Pain, severe (8-10) Last Admin: 11/15/18 22:32 Dose: 4 mg Morphine Sulfate (Morphine) 2 mg IVP Q4 PRN PRN Reason: Pain, moderate (4-7) Last Admin: 11/14/18 05:05 Dose: 2 mg Ondansetron HCl (Zofran Inj) 4 mg IVP Q4 PRN PRN Reason: Nausea/Vomiting Last Admin: 11/15/18 22:28 Dose: 4 mg Pantoprazole Sodium (Protonix Inj) 40 mg IVP DAILY [facility] Last Admin: 11/15/18 08:48 Dose: 40 mg - Labs Labs: 11/15/18 05:30 11/15/18 05:30 PT 15.1 Seconds (9.8-13.1) H 11/11/18 09:53 INR 1.3 11/11/18 09:53 APTT 30.8 Seconds (25.6-37.1) 11/11/18 15:00 <Joel Lake K - Last Filed: 11/19/18 10:37> Objective - Vital Signs/Intake and Output Vital Signs (last 24 hours): Temp Pulse Resp BP Pulse Ox 98.2 F 95 H 20 121/71 98 11/19/18 08:27 11/19/18 08:27 11/19/18 08:27 11/19/18 08:27 11/19/18 08:27 Intake and Output: 11/18/18 11/19/18 23:59 11:59 Intake Total 1500 Output Total 800 Balance 700 - Medications Medications: Current Medications Dextrose (Dextrose 50% Inj) 0 ml IV STAT PRN; Protocol PRN Reason: Hypoglycemia Protocol Dextrose (Glutose 15) 0 gm PO ONCE PRN; Protocol PRN Reason: Hypoglycemia Protocol Glipizide (Glucotrol) 10 mg PO BID [facility] Last Admin: 11/18/18 18:05 Dose: 10 mg Glucagon (Glucagen Diagnostic Kit) 0 mg IM STAT PRN; Protocol PRN Reason: Hypoglycemia Protocol Heparin Sodium (Porcine) (Heparin) 5,000 units SC Q8 [facility]; Protocol Last Admin: 11/19/18 00:47 Dose: 5,000 units Ciprofloxacin (Cipro 400mg/200ml Dsw) 400 mg in 200 mls @ 200 mls/hr IVPB DAILY [facility]; Protocol Last Admin: 11/18/18 08:28 Dose: 200 mls/hr Metronidazole (Flagyl 500mg/100ml Ns) 100 mls @ 100 mls/hr IVPB Q8@0400,1200, 2000 [facility]; Protocol Last Admin: 11/19/18 03:09 Dose: 100 mls/hr Insulin Human Lispro (Humalog) 0 units SC ACHS [facility]; Protocol Last Admin: 11/18/18 21:43 Dose: Not Given Lactic Acid (Lac-Hydrin 12% Lotion (225 G)) 1 applic TOP DAILY [facility] Last Admin: 11/18/18 17:58 Dose: 1 applic Metoclopramide HCl (Reglan) 10 mg IVP Q6 PRN PRN Reason: Nausea/Vomiting Last Admin: 11/18/18 17:59 Dose: 10 mg Metoprolol Tartrate (Lopressor) 12.5 mg PO BID [facility] Last Admin: 11/18/18 18:06 Dose: 12.5 mg Nifedipine (Procardia Xl) 60 mg PO QPM [facility] Last Admin: 11/18/18 18:05 Dose: 60 mg Ondansetron HCl (Zofran Inj) 4 mg IVP Q4 PRN PRN Reason: Nausea/Vomiting Last Admin: 11/18/18 03:05 Dose: 4 mg Pantoprazole Sodium (Protonix Ec Tab) 40 mg PO DAILY [facility] Sitagliptin Phosphate (Januvia) 50 mg PO BID [facility] Last Admin: 11/18/18 18:04 Dose: 50 mg - Labs Labs: 11/19/18 04:45 11/19/18 04:45 PT 15.1 Seconds (9.8-13.1) H 11/11/18 09:53 INR 1.3 11/11/18 09:53 APTT 30.8 Seconds (25.6-37.1) 11/11/18 15:00 Assessment and Plan - Assessment and Plan (Free Text) Assessment: Patient was personally seen and examined by me in rounds with residents. Available labs and diagnostic data reviewed. Case, Patient's condition and management plan discussed with residents in rounds. Agree with resident's progress note. Plan: As ordered.
[2018-11-16] MEDS: Labetalol 5mg/ml (4ml) IVP PRN ×4 (00:48→20:27)
[2018-11-16] MEDS: metroNIDAZOLE 500mg/100ml NS 100 ML IVPB SCH ×3 (00:49→16:19)
[2018-11-16 06:58] LABS: BASO % 0.4 % (0.0-2.0); EOS # 0.1 K/uL (0.0-0.7); EOS % 0.6 % (0.0-4.0); HEMOGLOBIN 9.4 g/dL (12.0-18.0); LYMPH # 1.3 K/uL (1.0-4.3); LYMPH % 11.4 % (20.0-40.0); MEAN CELL VOLUME 78.4 fl (80.0-94.0); MEAN CORPUSCULAR HEMOGLOBIN 23.9 pg (27.0-31.0); MEAN CORPUSCULAR HGB CONC 30.5 g/dL (33.0-37.0); MEAN PLATELET VOLUME 8.2 fl (7.2-11.7); MONO % 8.8 % (0.0-10.0); NEUT # 9.3 K/uL (1.8-7.0); NEUT % 78.8 % (50.0-75.0); RBC 3.92 Mil/uL (4.40-5.90); RED CELL DISTRIBUTION WIDTH 19.1 % (11.5-14.5); WHITE BLOOD COUNT 11.8 K/uL (4.8-10.8)
--- NOTE | 2018-11-16 07:19 | CP.PCM.PN ---
<Henry Hodges - Last Filed: 11/16/18 07:17> Subjective - Date & Time of Evaluation Date of Evaluation: 11/16/18 Time of Evaluation: 07:17 - Subjective Subjective: SURGERY NOTE FOR DR. CORMIER 47M seen and examined at bedside. Patient states is abdominal pain is improving, states he is passing a small amount of gas, denies bowel movement. Continues to spit up saliva. Objective - Vital Signs/Intake and Output Vital Signs (last 24 hours): Temp Pulse Resp BP Pulse Ox 98.6 F 92 H 12 142/78 96 11/16/18 04:05 11/16/18 04:09 11/16/18 04:05 11/16/18 04:05 11/16/18 04:05 - Medications Medications: Current Medications Dextrose (Dextrose 50% Inj) 0 ml IV STAT PRN; Protocol PRN Reason: Hypoglycemia Protocol Dextrose (Glutose 15) 0 gm PO ONCE PRN; Protocol PRN Reason: Hypoglycemia Protocol Glucagon (Glucagen Diagnostic Kit) 0 mg IM STAT PRN; Protocol PRN Reason: Hypoglycemia Protocol Heparin Sodium (Porcine) (Heparin) 5,000 units SC Q8 [facility]; Protocol Last Admin: 11/16/18 00:07 Dose: Not Given Ciprofloxacin (Cipro 400mg/200ml Dsw) 400 mg in 200 mls @ 200 mls/hr IVPB DAILY [facility]; Protocol Last Admin: 11/15/18 08:47 Dose: 200 mls/hr Metronidazole (Flagyl 500mg/100ml Ns) 100 mls @ 100 mls/hr IVPB Q8 [facility]; Protocol Last Admin: 11/16/18 00:49 Dose: 100 mls/hr Insulin Human Lispro (Humalog) 0 units SC ACHS [facility]; Protocol Last Admin: 11/15/18 21:59 Dose: Not Given Labetalol HCl (Trandate) 20 mg IVP Q3 PRN PRN Reason: Systolic Blood Pressure Last Admin: 11/16/18 00:48 Dose: 20 mg Morphine Sulfate (Morphine) 4 mg IVP Q4 PRN PRN Reason: Pain, severe (8-10) Last Admin: 11/15/18 22:32 Dose: 4 mg Morphine Sulfate (Morphine) 2 mg IVP Q4 PRN PRN Reason: Pain, moderate (4-7) Last Admin: 11/14/18 05:05 Dose: 2 mg Ondansetron HCl (Zofran Inj) 4 mg IVP Q4 PRN PRN Reason: Nausea/Vomiting Last Admin: 11/15/18 22:28 Dose: 4 mg Pantoprazole Sodium (Protonix Inj) 40 mg IVP DAILY [facility] Last Admin: 11/15/18 08:48 Dose: 40 mg - Labs Labs: 11/16/18 06:00 11/15/18 05:30 PT 15.1 Seconds (9.8-13.1) H 11/11/18 09:53 INR 1.3 11/11/18 09:53 APTT 30.8 Seconds (25.6-37.1) 11/11/18 15:00 - Constitutional Appears: Non-toxic, No Acute Distress - Respiratory Exam Respiratory Exam: Clear to Ausculation Bilateral, NORMAL BREATHING PATTERN - Cardiovascular Exam Cardiovascular Exam: REGULAR RHYTHM, +S1, +S2 - GI/Abdominal Exam GI & Abdominal Exam: Soft, Tenderness. absent: Distended, Firm, Guarding, Rigid, Rebound Additional comments: incision CDI - Extremities Exam Extremities Exam: absent: Pedal Edema, Tenderness - Neurological Exam Neurological Exam: Alert, Awake - Skin Skin Exam: Dry, Intact, Normal Color, Warm Assessment and Plan - Assessment and Plan (Free Text) Assessment: 47M s/p significant small bowel resection, approx 7-8ft POD #5 Plan: - Continue to monitor pain - serial abdominal exams - F/u AM labs - F/u bowel function - Advance diet when patient has bowel function - Poss PICC line placement Saturday, for TPN Further recs discuss with Dr. Casa Hodges, PGY3 <Dylan Cormier - Last Filed: 11/16/18 15:41> Subjective - Date & Time of Evaluation Time of Evaluation: 15:15 - Subjective Subjective: Patient was seen and examined at the bedside. Agree with resident's note above. No flatus or bowel movements yet, nauseous and has small amount of bilious vomiting. Objective - Vital Signs/Intake and Output Vital Signs (last 24 hours): Temp Pulse Resp BP Pulse Ox 98.5 F 106 H 20 171/93 H 97 11/16/18 09:12 11/16/18 09:12 11/16/18 09:12 11/16/18 09:12 11/16/18 09:12 - Medications Medications: Current Medications Dextrose (Dextrose 50% Inj) 0 ml IV STAT PRN; Protocol PRN Reason: Hypoglycemia Protocol Dextrose (Glutose 15) 0 gm PO ONCE PRN; Protocol PRN Reason: Hypoglycemia Protocol Glucagon (Glucagen Diagnostic Kit) 0 mg IM STAT PRN; Protocol PRN Reason: Hypoglycemia Protocol Heparin Sodium (Porcine) (Heparin) 5,000 units SC Q8 [facility]; Protocol Last Admin: 11/16/18 09:13 Dose: 5,000 units Ciprofloxacin (Cipro 400mg/200ml Dsw) 400 mg in 200 mls @ 200 mls/hr IVPB DAILY [facility]; Protocol Last Admin: 11/16/18 09:12 Dose: 200 mls/hr Metronidazole (Flagyl 500mg/100ml Ns) 100 mls @ 100 mls/hr IVPB Q8 [facility]; Protocol Last Admin: 11/16/18 13:20 Dose: 100 mls/hr Insulin Human Lispro (Humalog) 0 units SC ACHS [facility]; Protocol Last Admin: 11/16/18 13:22 Dose: Not Given Labetalol HCl (Trandate) 20 mg IVP Q3 PRN PRN Reason: Systolic Blood Pressure Last Admin: 11/16/18 09:14 Dose: 20 mg Morphine Sulfate (Morphine) 4 mg IVP Q4 PRN PRN Reason: Pain, severe (8-10) Last Admin: 11/15/18 22:32 Dose: 4 mg Morphine Sulfate (Morphine) 2 mg IVP Q4 PRN PRN Reason: Pain, moderate (4-7) Last Admin: 11/14/18 05:05 Dose: 2 mg Ondansetron HCl (Zofran Inj) 4 mg IVP Q4 PRN PRN Reason: Nausea/Vomiting Last Admin: 11/16/18 15:33 Dose: 4 mg Pantoprazole Sodium (Protonix Inj) 40 mg IVP DAILY [facility] Last Admin: 11/16/18 09:14 Dose: 40 mg - Labs Labs: 11/16/18 06:00 11/16/18 06:00 PT 15.1 Seconds (9.8-13.1) H 11/11/18 09:53 INR 1.3 11/11/18 09:53 APTT 30.8 Seconds (25.6-37.1) 11/11/18 15:00 - GI/Abdominal Exam Additional comments: soft, mild hair-incisional tenderness, ND, hypoactive bowel sounds, no rebound, no guarding, incision clean, no erythema, no drainage, miranda in place Assessment and Plan - Assessment and Plan (Free Text) Plan: - Keep NPO - Patient is refusing NG tube - Zofran prn - Pain control - Continue antibiotics - Insentive spirometry - DVT ppx - Repeat labs in am - Will follow
[2018-11-16 07:27] LABS: ALB/GLOB RATIO 0.8 (1.0-2.1); ALBUMIN 2.9 g/dL (3.5-5.0); CALCIUM 8.4 mg/dL (8.4-10.2)
[2018-11-16] MEDS: Insulin Lispro (humaLOG) 100 Units/ml Inj SC SCH ×4 (07:30→21:50)
[2018-11-16] MEDS: Ciprofloxacin 400mg/200ml D5W 400 MG/200 ML BAG IVPB SCH (09:12)
--- NOTE | 2018-11-16 19:37 | CP.PCM.PN ---
Subjective - Date & Time of Evaluation Date of Evaluation: 11/15/18 Time of Evaluation: 19:37 - Subjective Subjective: renal follow up note no events overnight vss nad heent normal no jvd s1s2 present no resp distress abd soft midline healing incision edema + cooperative plan esrd/htn/dm/intestinal resection/sec hyperpth hd mwf continue per schedule lytes ok volume stable anemia epo with hd continue binders monitor phos levels Objective - Vital Signs/Intake and Output Vital Signs (last 24 hours): Temp Pulse Resp BP Pulse Ox 98.4 F 109 H 18 162/101 H 95 11/16/18 16:00 11/16/18 16:00 11/16/18 16:00 11/16/18 16:00 11/16/18 16:00 Intake and Output: 11/16/18 11/17/18 18:59 06:59 Intake Total 400 Output Total 650 Balance -250 - Medications Medications: Current Medications Dextrose (Dextrose 50% Inj) 0 ml IV STAT PRN; Protocol PRN Reason: Hypoglycemia Protocol Dextrose (Glutose 15) 0 gm PO ONCE PRN; Protocol PRN Reason: Hypoglycemia Protocol Glucagon (Glucagen Diagnostic Kit) 0 mg IM STAT PRN; Protocol PRN Reason: Hypoglycemia Protocol Heparin Sodium (Porcine) (Heparin) 5,000 units SC Q8 [facility]; Protocol Last Admin: 11/16/18 16:20 Dose: 5,000 units Ciprofloxacin (Cipro 400mg/200ml Dsw) 400 mg in 200 mls @ 200 mls/hr IVPB DAILY [facility]; Protocol Last Admin: 11/16/18 09:12 Dose: 200 mls/hr Metronidazole (Flagyl 500mg/100ml Ns) 100 mls @ 100 mls/hr IVPB Q8 [facility]; Protocol Last Admin: 11/16/18 16:19 Dose: 100 mls/hr Insulin Human Lispro (Humalog) 0 units SC ACHS [facility]; Protocol Last Admin: 11/16/18 16:35 Dose: Not Given Labetalol HCl (Trandate) 20 mg IVP Q3 PRN PRN Reason: Systolic Blood Pressure Last Admin: 11/16/18 16:19 Dose: 20 mg Morphine Sulfate (Morphine) 4 mg IVP Q4 PRN PRN Reason: Pain, severe (8-10) Last Admin: 11/15/18 22:32 Dose: 4 mg Morphine Sulfate (Morphine) 2 mg IVP Q4 PRN PRN Reason: Pain, moderate (4-7) Last Admin: 11/14/18 05:05 Dose: 2 mg Ondansetron HCl (Zofran Inj) 4 mg IVP Q4 PRN PRN Reason: Nausea/Vomiting Last Admin: 11/16/18 15:33 Dose: 4 mg Pantoprazole Sodium (Protonix Inj) 40 mg IVP DAILY [facility] Last Admin: 11/16/18 09:14 Dose: 40 mg - Labs Labs: 11/16/18 06:00 11/16/18 06:00 PT 15.1 Seconds (9.8-13.1) H 11/11/18 09:53 INR 1.3 11/11/18 09:53 APTT 30.8 Seconds (25.6-37.1) 11/11/18 15:00
[2018-11-17] MEDS: metroNIDAZOLE 500mg/100ml NS 100 ML IVPB SCH ×3 (01:56→20:23)
[2018-11-17 07:26] LABS: HEMOGLOBIN 10.1 g/dL (12.0-18.0); MEAN CORPUSCULAR HEMOGLOBIN 24.3 pg (27.0-31.0); MEAN CORPUSCULAR HGB CONC 31.1 g/dL (33.0-37.0); RBC 4.15 Mil/uL (4.40-5.90); RED CELL DISTRIBUTION WIDTH 19.5 % (11.5-14.5); WHITE BLOOD COUNT 13.1 K/uL (4.8-10.8)
--- NOTE | 2018-11-17 07:35 | CP.PCM.PN ---
<Sesar Morin - Last Filed: 11/17/18 07:32> Subjective - Date & Time of Evaluation Date of Evaluation: 11/17/18 Time of Evaluation: 07:33 - Subjective Subjective: General Surgery Progress Note for Dr. Beck 47M seen and evaluated at bedside this morning. Patient spitting up blood tinged green/yellow fluid. Complains of dry mouth. Admits to passing small amounts of gas, no bowel movement. Patient is OOBTC. Denies f/c, diarrhea, shortness of breath, chest pain, headaches, dizziness, or urinary symptoms. Objective - Vital Signs/Intake and Output Vital Signs (last 24 hours): Temp Pulse Resp BP Pulse Ox 98.4 F 91 H 18 170/95 H 96 11/17/18 06:00 11/17/18 06:00 11/17/18 06:00 11/17/18 06:00 11/17/18 06:00 - Medications Medications: Current Medications Dextrose (Dextrose 50% Inj) 0 ml IV STAT PRN; Protocol PRN Reason: Hypoglycemia Protocol Dextrose (Glutose 15) 0 gm PO ONCE PRN; Protocol PRN Reason: Hypoglycemia Protocol Glucagon (Glucagen Diagnostic Kit) 0 mg IM STAT PRN; Protocol PRN Reason: Hypoglycemia Protocol Heparin Sodium (Porcine) (Heparin) 5,000 units SC Q8 [facility]; Protocol Last Admin: 11/17/18 01:57 Dose: 5,000 units Ciprofloxacin (Cipro 400mg/200ml Dsw) 400 mg in 200 mls @ 200 mls/hr IVPB DAILY [facility]; Protocol Last Admin: 11/16/18 09:12 Dose: 200 mls/hr Metronidazole (Flagyl 500mg/100ml Ns) 100 mls @ 100 mls/hr IVPB Q8 [facility]; Protocol Last Admin: 11/17/18 01:56 Dose: 100 mls/hr Insulin Human Lispro (Humalog) 0 units SC ACHS [facility]; Protocol Last Admin: 11/16/18 21:50 Dose: Not Given Labetalol HCl (Trandate) 20 mg IVP Q3 PRN PRN Reason: Systolic Blood Pressure Last Admin: 11/16/18 20:27 Dose: 20 mg Ondansetron HCl (Zofran Inj) 4 mg IVP Q4 PRN PRN Reason: Nausea/Vomiting Last Admin: 11/17/18 05:12 Dose: 4 mg Pantoprazole Sodium (Protonix Inj) 40 mg IVP DAILY [facility] Last Admin: 11/16/18 09:14 Dose: 40 mg - Labs Labs: 11/17/18 06:30 11/16/18 06:00 PT 15.1 Seconds (9.8-13.1) H 11/11/18 09:53 INR 1.3 11/11/18 09:53 APTT 30.8 Seconds (25.6-37.1) 11/11/18 15:00 - Constitutional Appears: Non-toxic, No Acute Distress - Head Exam Head Exam: ATRAUMATIC, NORMAL INSPECTION, NORMOCEPHALIC - Eye Exam Eye Exam: EOMI - ENT Exam ENT Exam: Mucous Membranes Dry - Respiratory Exam Respiratory Exam: NORMAL BREATHING PATTERN. absent: Respiratory Distress - Cardiovascular Exam Cardiovascular Exam: REGULAR RHYTHM. absent: Tachycardia - GI/Abdominal Exam GI & Abdominal Exam: Soft, Tenderness, Normal Bowel Sounds. absent: Distended - Neurological Exam Neurological Exam: Alert, Awake - Psychiatric Exam Psychiatric exam: Normal Affect, Normal Mood - Skin Additional comments: midline incision erythematous, no drainage Assessment and Plan - Assessment and Plan (Free Text) Assessment: 47M s/p exploratory laparotomy w/ small bowel resection POD6 Plan: NPO Will ADAT once return of bowel function Ice for dry mouth IV Abx Antiemetics and analgesics Encourage ambulation and IS use Continue to monitor vitals PICC today for TPN Further recommendations per Dr. Kiran Morin PGY1 <Fernando Beck - Last Filed: 11/17/18 09:53> Objective - Vital Signs/Intake and Output Vital Signs (last 24 hours): Temp Pulse Resp BP Pulse Ox 98.6 F 97 H 20 198/85 H 97 11/17/18 07:49 11/17/18 07:49 11/17/18 07:49 11/17/18 07:49 11/17/18 07:49 - Medications Medications: Current Medications Dextrose (Dextrose 50% Inj) 0 ml IV STAT PRN; Protocol PRN Reason: Hypoglycemia Protocol Dextrose (Glutose 15) 0 gm PO ONCE PRN; Protocol PRN Reason: Hypoglycemia Protocol Glucagon (Glucagen Diagnostic Kit) 0 mg IM STAT PRN; Protocol PRN Reason: Hypoglycemia Protocol Heparin Sodium (Porcine) (Heparin) 5,000 units SC Q8 [facility]; Protocol Last Admin: 11/17/18 01:57 Dose: 5,000 units Ciprofloxacin (Cipro 400mg/200ml Dsw) 400 mg in 200 mls @ 200 mls/hr IVPB DAILY [facility]; Protocol Last Admin: 11/16/18 09:12 Dose: 200 mls/hr Metronidazole (Flagyl 500mg/100ml Ns) 100 mls @ 100 mls/hr IVPB Q8 [facility]; Protocol Last Admin: 11/17/18 01:56 Dose: 100 mls/hr Insulin Human Lispro (Humalog) 0 units SC ACHS [facility]; Protocol Last Admin: 11/16/18 21:50 Dose: Not Given Labetalol HCl (Trandate) 20 mg IVP Q3 PRN PRN Reason: Systolic Blood Pressure Last Admin: 11/16/18 20:27 Dose: 20 mg Ondansetron HCl (Zofran Inj) 4 mg IVP Q4 PRN PRN Reason: Nausea/Vomiting Last Admin: 11/17/18 05:12 Dose: 4 mg Pantoprazole Sodium (Protonix Inj) 40 mg IVP DAILY [facility] Last Admin: 11/16/18 09:14 Dose: 40 mg - Labs Labs: 11/17/18 06:30 11/17/18 06:30 PT 15.1 Seconds (9.8-13.1) H 11/11/18 09:53 INR 1.3 11/11/18 09:53 APTT 30.8 Seconds (25.6-37.1) 11/11/18 15:00 Assessment and Plan - Assessment and Plan (Free Text) Plan: addendum agree with residens note pt seen and examined at bedside with residents. Pt reports some incisional pain but well controlled. Denies any nausea or vomiting, continues to report productive sputum. Pt is passing flatus but no BM. NAD, awake, alert no acute respiratory distress abd: soft, obese, incisional tenderness, miranda in place no drainage, erythema surrounding miranda, no peritoneal signs 47yo M s/p exlap, SBR -prn pain control -incentive spirometry -zofran prn -trial of clears -repeat labs tomorrow -if WBC continues to rise or pt doesnt tolerate diet will consider CT A/P to evaluate for any intraabdominal collection -OOB to chair, -PT eval
[2018-11-17 07:39] LABS: ALB/GLOB RATIO 0.8 (1.0-2.1); CALCIUM 8.5 mg/dL (8.4-10.2)
[2018-11-17] MEDS: Insulin Lispro (humaLOG) 100 Units/ml Inj SC SCH ×4 (08:20→21:34)
--- NOTE | 2018-11-17 10:58 | RAD ---
Date of service: 11/17/2018 HISTORY: f/u sbo, vomiting COMPARISON: CT abdomen and pelvis from 11/11/2018 FINDINGS: BOWEL: There is moderate gaseous distension of the stomach. The small bowel loops are normal in caliber. No evidence for bowel dilatation. BONES: Normal. OTHER FINDINGS: A catheter overlies the right ischium. IMPRESSION: Interval decompression of dilated small bowel loops. Moderate gaseous distension of the stomach.
--- NOTE | 2018-11-17 11:06 | CP.PCM.PN ---
Subjective - Date & Time of Evaluation Date of Evaluation: 11/17/18 Time of Evaluation: 11:05 - Subjective Subjective: Dialysis note He was seen on hemodialysis Vital signs stable Dialysis nurse at the bedside which we discussed the order Objective - Vital Signs/Intake and Output Vital Signs (last 24 hours): Temp Pulse Resp BP Pulse Ox 98.6 F 97 H 20 198/85 H 97 11/17/18 07:49 11/17/18 07:49 11/17/18 07:49 11/17/18 07:49 11/17/18 07:49 - Medications Medications: Current Medications Dextrose (Dextrose 50% Inj) 0 ml IV STAT PRN; Protocol PRN Reason: Hypoglycemia Protocol Dextrose (Glutose 15) 0 gm PO ONCE PRN; Protocol PRN Reason: Hypoglycemia Protocol Glucagon (Glucagen Diagnostic Kit) 0 mg IM STAT PRN; Protocol PRN Reason: Hypoglycemia Protocol Heparin Sodium (Porcine) (Heparin) 5,000 units SC Q8 [facility]; Protocol Last Admin: 11/17/18 01:57 Dose: 5,000 units Ciprofloxacin (Cipro 400mg/200ml Dsw) 400 mg in 200 mls @ 200 mls/hr IVPB DAILY [facility]; Protocol Last Admin: 11/16/18 09:12 Dose: 200 mls/hr Metronidazole (Flagyl 500mg/100ml Ns) 100 mls @ 100 mls/hr IVPB Q8 [facility]; Protoc ol Last Admin: 11/17/18 01:56 Dose: 100 mls/hr Insulin Human Lispro (Humalog) 0 units SC ACHS [facility]; Protocol Last Admin: 11/16/18 21:50 Dose: Not Given Labetalol HCl (Trandate) 20 mg IVP Q3 PRN PRN Reason: Systolic Blood Pressure Last Admin: 11/16/18 20:27 Dose: 20 mg Ondansetron HCl (Zofran Inj) 4 mg IVP Q4 PRN PRN Reason: Nausea/Vomiting Last Admin: 11/17/18 05:12 Dose: 4 mg Pantoprazole Sodium (Protonix Inj) 40 mg IVP DAILY [facility] Last Admin: 11/16/18 09:14 Dose: 40 mg - Labs Labs: 11/17/18 06:30 11/17/18 06:30 PT 15.1 Seconds (9.8-13.1) H 11/11/18 09:53 INR 1.3 11/11/18 09:53 APTT 30.8 Seconds (25.6-37.1) 11/11/18 15:00 - Constitutional Appears: No Acute Distress - Eye Exam Eye Exam: Conjunctival injection - ENT Exam ENT Exam: Mucous Membranes Dry - Neck Exam Neck Exam: absent: Lymphadenopathy - Respiratory Exam Respiratory Exam: absent: Chest Wall Tenderness, Rales - Cardiovascular Exam Cardiovascular Exam: absent: Gallop, JVD, Rubs - GI/Abdominal Exam GI & Abdominal Exam: Guarding, Normal Bowel Sounds - Extremities Exam Extremities Exam: absent: Calf Tenderness - Back Exam Back Exam: absent: CVA tenderness (L), CVA tenderness (R) - Neurological Exam Neurological Exam: Alert - Psychiatric Exam Psychiatric exam: Anxious - Skin Skin Exam: absent: Cyanosis Assessment and Plan (1) ESRD (end stage renal disease) on dialysis Assessment & Plan: End-stage renal disease patient on maintenance dialysis Saturday. 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 Status: Acute (2) GI bleed Status: Acute (3) Ischemia, bowel Status: Acute
[2018-11-17] MEDS: Ciprofloxacin 400mg/200ml D5W 400 MG/200 ML BAG IVPB SCH (11:19)
--- NOTE | 2018-11-17 11:38 | PN ---
DATE: 11/17/2018 SUBJECTIVE: The patient seen and examined. Interim events noted. Consults noted and appreciated. Surgery followup and intervention noted and appreciated. The patient remains in progressive care unit with telemetry monitoring, awake, responsive, feels okay. Complains of minimal nausea, and minimal abdominal pain which is much better than before. Also tells me that he started passing gas but still has no bowel movement. No chest pain or shortness of breath. PHYSICAL EXAMINATION: GENERAL: The patient is in no acute distress. VITAL SIGNS: Stable. HEART: S1, S2 normal and regular. LUNGS: Good bilateral air exchange. ABDOMEN: Soft. No sign of acute complication. No guarding, no rigidity, no rebound. EXTREMITIES: No edema. No calf swelling. No tenderness. No acute ischemia. The patient is status post multiple amputations. CENTRAL NERVOUS SYSTEM: Essentially unchanged. DIAGNOSTIC DATA: Available diagnostic data reviewed. Telemetry monitoring does not show significant arrhythmias. ASSESSMENT AND PLAN: Overall, the patient's general medical condition is stable. Plan as ordered. Joel Lake MD
[2018-11-17] MEDS: Labetalol 5mg/ml (4ml) IVP PRN ×2 (13:20→20:41)
[2018-11-18] MEDS: metroNIDAZOLE 500mg/100ml NS 100 ML IVPB SCH ×3 (03:15→20:02)
[2018-11-18 05:39] LABS: BASO % 0.4 % (0.0-2.0); EOS # 0.1 K/uL (0.0-0.7); EOS % 0.5 % (0.0-4.0); HEMOGLOBIN 10.2 g/dL (12.0-18.0); LYMPH # 1.4 K/uL (1.0-4.3); MEAN CELL VOLUME 77.5 fl (80.0-94.0); MEAN CORPUSCULAR HEMOGLOBIN 24.1 pg (27.0-31.0); MEAN CORPUSCULAR HGB CONC 31.1 g/dL (33.0-37.0); MEAN PLATELET VOLUME 7.7 fl (7.2-11.7); MONO # 1.1 K/uL (0.0-0.8); MONO % 9.8 % (0.0-10.0); NEUT # 8.9 K/uL (1.8-7.0); NEUT % 77.3 % (50.0-75.0); NRBC % 0.1 % (0.0-0.0); RBC 4.22 Mil/uL (4.40-5.90); RED CELL DISTRIBUTION WIDTH 19.8 % (11.5-14.5); WHITE BLOOD COUNT 11.5 K/uL (4.8-10.8)
[2018-11-18 06:25] LABS: ALB/GLOB RATIO 0.7 (1.0-2.1); ALBUMIN 2.7 g/dL (3.5-5.0)
--- NOTE | 2018-11-18 07:22 | CP.PCM.PN ---
Subjective - Date & Time of Evaluation Date of Evaluation: 11/18/18 Time of Evaluation: 07:20 - Subjective Subjective: General Surgery Progress Note for Dr. Beck 47M seen and evaluated at bedside this morning. No acute events overnight. Patient tolerating CLD. Patient states he had large bowel movements and is passing gas. Minimal ambulation. Pain is well controlled. Denies f/c, n/v/d, SOB, CP, or urinary symptoms. Objective - Vital Signs/Intake and Output Vital Signs (last 24 hours): Temp Pulse Resp BP Pulse Ox 98.9 F 97 H 18 168/96 H 94 L 11/18/18 05:34 11/18/18 05:34 11/18/18 05:34 11/18/18 05:34 11/18/18 05:34 - Medications Medications: Current Medications Dextrose (Dextrose 50% Inj) 0 ml IV STAT PRN; Protocol PRN Reason: Hypoglycemia Protocol Dextrose (Glutose 15) 0 gm PO ONCE PRN; Protocol PRN Reason: Hypoglycemia Protocol Glucagon (Glucagen Diagnostic Kit) 0 mg IM STAT PRN; Protocol PRN Reason: Hypoglycemia Protocol Heparin Sodium (Porcine) (Heparin) 5,000 units SC Q8 [facility]; Protocol Last Admin: 11/18/18 00:41 Dose: Not Given Ciprofloxacin (Cipro 400mg/200ml Dsw) 400 mg in 200 mls @ 200 mls/hr IVPB DAILY [facility]; Protocol Last Admin: 11/17/18 11:19 Dose: 200 mls/hr Metronidazole (Flagyl 500mg/100ml Ns) 100 mls @ 100 mls/hr IVPB Q8@0400,1200,2000 [facility]; Protocol Last Admin: 11/18/18 03:15 Dose: 100 mls/hr Insulin Human Lispro (Humalog) 0 units SC ACHS [facility]; Protocol Last Admin: 11/17/18 21:34 Dose: Not Given Labetalol HCl (Trandate) 20 mg IVP Q3 PRN PRN Reason: Systolic Blood Pressure Last Admin: 11/17/18 20:41 Dose: 20 mg Metoclopramide HCl (Reglan) 10 mg IVP Q6 PRN PRN Reason: Nausea/Vomiting Last Admin: 11/17/18 17:49 Dose: 10 mg Ondansetron HCl (Zofran Inj) 4 mg IVP Q4 PRN PRN Reason: Nausea/Vomiting Last Admin: 11/18/18 03:05 Dose: 4 mg Pantoprazole Sodium (Protonix Inj) 40 mg IVP DAILY [facility] Last Admin: 11/17/18 11:21 Dose: 40 mg - Labs Labs: 11/18/18 05:05 11/18/18 05:05 PT 15.1 Seconds (9.8-13.1) H 11/11/18 09:53 INR 1.3 11/11/18 09:53 APTT 30.8 Seconds (25.6-37.1) 11/11/18 15:00 - Constitutional Appears: Well, Non-toxic, No Acute Distress - Head Exam Head Exam: ATRAUMATIC, NORMAL INSPECTION, NORMOCEPHALIC - Eye Exam Eye Exam: EOMI - ENT Exam ENT Exam: Mucous Membranes Moist - Respiratory Exam Respiratory Exam: NORMAL BREATHING PATTERN. absent: Respiratory Distress - Cardiovascular Exam Cardiovascular Exam: REGULAR RHYTHM. absent: Tachycardia - GI/Abdominal Exam GI & Abdominal Exam: Distended, Soft, Normal Bowel Sounds. absent: Tenderness Additional comments: midline incision widening erythema with induration and blanching - Neurological Exam Neurological Exam: Alert, Awake - Psychiatric Exam Psychiatric exam: Normal Affect, Normal Mood Assessment and Plan - Assessment and Plan (Free Text) Assessment: 47M s/p exploratory laparotomy w/ small bowel resection POD7 Plan: ADAT IV Abx Antiemetics and analgesics PRN Continue to monitor bowel function Continue to monitor vitals Leukocytosis, improving Will remove some miranda from midline incision Encourage ambulation and IS use Aggressive PT Further recommendations per Dr. Kiran Morin PGY1
--- NOTE | 2018-11-18 07:25 | CP.PCM.PN ---
<Yana Gibbons - Last Filed: 11/18/18 12:03> Subjective - Date & Time of Evaluation Date of Evaluation: 11/18/18 Time of Evaluation: 07:05 - Subjective Subjective: Pt seen/examined with Dr. Lake this am during rounds. Pt resting in bed. He reports no acute events overnight; no episodes of vomiting. Tolerated liquid diet. Objective - Vital Signs/Intake and Output Vital Signs (last 24 hours): Temp Pulse Resp BP Pulse Ox 98.9 F 97 H 18 168/96 H 94 L 11/18/18 05:34 11/18/18 05:34 11/18/18 05:34 11/18/18 05:34 11/18/18 05:34 - Medications Medications: Current Medications Dextrose (Dextrose 50% Inj) 0 ml IV STAT PRN; Protocol PRN Reason: Hypoglycemia Protocol Dextrose (Glutose 15) 0 gm PO ONCE PRN; Protocol PRN Reason: Hypoglycemia Protocol Glucagon (Glucagen Diagnostic Kit) 0 mg IM STAT PRN; Protocol PRN Reason: Hypoglycemia Protocol Heparin Sodium (Porcine) (Heparin) 5,000 units SC Q8 [facility]; Protocol Last Admin: 11/18/18 00:41 Dose: Not Given Ciprofloxacin (Cipro 400mg/200ml Dsw) 400 mg in 200 mls @ 200 mls/hr IVPB DAILY [facility]; Protocol Last Admin: 11/17/18 11:19 Dose: 200 mls/hr Metronidazole (Flagyl 500mg/100ml Ns) 100 mls @ 100 mls/hr IVPB Q8@0400,1200,2000 [facility]; Protocol Last Admin: 11/18/18 03:15 Dose: 100 mls/hr Insulin Human Lispro (Humalog) 0 units SC ACHS [facility]; Protocol Last Admin: 11/17/18 21:34 Dose: Not Given Labetalol HCl (Trandate) 20 mg IVP Q3 PRN PRN Reason: Systolic Blood Pressure Last Admin: 11/17/18 20:41 Dose: 20 mg Metoclopramide HCl (Reglan) 10 mg IVP Q6 PRN PRN Reason: Nausea/Vomiting Last Admin: 11/17/18 17:49 Dose: 10 mg Ondansetron HCl (Zofran Inj) 4 mg IVP Q4 PRN PRN Reason: Nausea/Vomiting Last Admin: 11/18/18 03:05 Dose: 4 mg Pantoprazole Sodium (Protonix Inj) 40 mg IVP DAILY [facility] Last Admin: 11/17/18 11:21 Dose: 40 mg - Labs Labs: 11/18/18 05:05 11/18/18 05:05 PT 15.1 Seconds (9.8-13.1) H 11/11/18 09:53 INR 1.3 11/11/18 09:53 APTT 30.8 Seconds (25.6-37.1) 11/11/18 15:00 - Constitutional Appears: No Acute Distress - ENT Exam ENT Exam: Mucous Membranes Moist - Respiratory Exam Respiratory Exam: NORMAL BREATHING PATTERN - Cardiovascular Exam Cardiovascular Exam: REGULAR RHYTHM, +S1, +S2 - GI/Abdominal Exam GI & Abdominal Exam: Soft, Tenderness (mild) - Extremities Exam Extremities Exam: absent: Calf Tenderness - Neurological Exam Neurological Exam: Alert, Awake Assessment and Plan - Assessment and Plan (Free Text) Assessment: 47 yo M with ESRD (HD ), s/p significant bowel resection due to ischemic bowel; POD 7. Plan: #s/p ischemic bowel resection - Due to SBO perforation, s/p small bowel resection, POD 7; surgery on board and recs appreciated - Had been NPO; diet advanced yesterday to clears - Afebrile; WBC was - Abx: s/p vanco, flagyl, and gentamycin in ED; currently on cipro/flagyl; ID recs from Dr. Elam appreciated - Blood cultures no growth - Consider dietary consult - Physical Therapy ESRD on HD MWF - Nephrology consulted - Crea down to 3.7; baseline NIDDM - Accuchecks - Insulin coverage scale and hypoglycemia protocol HTN - Labetalol IVP GI ppx -Protonix IVP DVT ppx -Heparin 5000 SQ q8 <Joel Lake K - Last Filed: 11/19/18 10:36> Objective - Vital Signs/Intake and Output Vital Signs (last 24 hours): Temp Pulse Resp BP Pulse Ox 98.2 F 95 H 20 121/71 98 11/19/18 08:27 11/19/18 08:27 11/19/18 08:27 11/19/18 08:27 11/19/18 08:27 Intake and Output: 11/18/18 11/19/18 23:59 11:59 Intake Total 1500 Output Total 800 Balance 700 - Medications Medications: Current Medications Dextrose (Dextrose 50% Inj) 0 ml IV STAT PRN; Protocol PRN Reason: Hypoglycemia Protocol Dextrose (Glutose 15) 0 gm PO ONCE PRN; Protocol PRN Reason: Hypoglycemia Protocol Glipizide (Glucotrol) 10 mg PO BID [facility] Last Admin: 11/18/18 18:05 Dose: 10 mg Glucagon (Glucagen Diagnostic Kit) 0 mg IM STAT PRN; Protocol PRN Reason: Hypoglycemia Protocol Heparin Sodium (Porcine) (Heparin) 5,000 units SC Q8 [facility]; Protocol Last Admin: 11/19/18 00:47 Dose: 5,000 units Ciprofloxacin (Cipro 400mg/200ml Dsw) 400 mg in 200 mls @ 200 mls/hr IVPB DAILY [facility]; Protocol Last Admin: 11/18/18 08:28 Dose: 200 mls/hr Metronidazole (Flagyl 500mg/100ml Ns) 100 mls @ 100 mls/hr IVPB Q8@0400,1200,2000 [facility]; Protocol Last Admin: 11/19/18 03:09 Dose: 100 mls/hr Insulin Human Lispro (Humalog) 0 units SC ACHS [facility]; Protocol Last Admin: 11/18/18 21:43 Dose: Not Given Lactic Acid (Lac-Hydrin 12% Lotion (225 G)) 1 applic TOP DAILY [facility] Last Admin: 11/18/18 17:58 Dose: 1 applic Metoclopramide HCl (Reglan) 10 mg IVP Q6 PRN PRN Reason: Nausea/Vomiting Last Admin: 11/18/18 17:59 Dose: 10 mg Metoprolol Tartrate (Lopressor) 12.5 mg PO BID [facility] Last Admin: 11/18/18 18:06 Dose: 12.5 mg Nifedipine (Procardia Xl) 60 mg PO QPM [facility] Last Admin: 11/18/18 18:05 Dose: 60 mg Ondansetron HCl (Zofran Inj) 4 mg IVP Q4 PRN PRN Reason: Nausea/Vomiting Last Admin: 11/18/18 03:05 Dose: 4 mg Pantoprazole Sodium (Protonix Ec Tab) 40 mg PO DAILY [facility] Sitagliptin Phosphate (Januvia) 50 mg PO BID [facility] Last Admin: 11/18/18 18:04 Dose: 50 mg - Labs Labs: 11/19/18 04:45 11/19/18 04:45 PT 15.1 Seconds (9.8-13.1) H 11/11/18 09:53 INR 1.3 11/11/18 09:53 APTT 30.8 Seconds (25.6-37.1) 11/11/18 15:00 Assessment and Plan - Assessment and Plan (Free Text) Assessment: Patient was personally seen and examined by me in rounds with residents. Available labs and diagnostic data reviewed. Case, Patient's condition and management plan discussed with residents in rounds. Agree with resident's progress note. Plan: As ordered.
--- NOTE | 2018-11-18 07:56 | CP.PCM.PN ---
Subjective - Date & Time of Evaluation Date of Evaluation: 11/18/18 Time of Evaluation: 07:55 - Subjective Subjective: Patient awake and conscious No new event reported overnight Appears to be eating better this morning Objective - Vital Signs/Intake and Output Vital Signs (last 24 hours): Temp Pulse Resp BP Pulse Ox 99 F 94 H 20 166/93 H 99 11/18/18 07:47 11/18/18 07:47 11/18/18 07:47 11/18/18 07:47 11/18/18 07:47 - Medications Medications: Current Medications Dextrose (Dextrose 50% Inj) 0 ml IV STAT PRN; Protocol PRN Reason: Hypoglycemia Protocol Dextrose (Glutose 15) 0 gm PO ONCE PRN; Protocol PRN Reason: Hypoglycemia Protocol Glucagon (Glucagen Diagnostic Kit) 0 mg IM STAT PRN; Protocol PRN Reason: Hypoglycemia Protocol Heparin Sodium (Porcine) (Heparin) 5,000 units SC Q8 [facility]; Protocol Last Admin: 11/18/18 00:41 Dose: Not Given Ciprofloxacin (Cipro 400mg/200ml Dsw) 400 mg in 200 mls @ 200 mls/hr IVPB DAILY [facility]; Protocol Last Admin: 11/17/18 11:19 Dose: 200 mls/hr Metronidazole (Flagyl 500mg/100ml Ns) 100 mls @ 100 mls/hr IVPB Q8@0400,1200,2000 [facility]; Protocol Last Admin: 11/18/18 03:15 Dose: 100 mls/hr Insulin Human Lispro (Humalog) 0 units SC ACHS [facility]; Protocol Last Admin: 11/17/18 21:34 Dose: Not Given Labetalol HCl (Trandate) 20 mg IVP Q3 PRN PRN Reason: Systolic Blood Pressure Last Admin: 11/17/18 20:41 Dose: 20 mg Metoclopramide HCl (Reglan) 10 mg IVP Q6 PRN PRN Reason: Nausea/Vomiting Last Admin: 11/17/18 17:49 Dose: 10 mg Ondansetron HCl (Zofran Inj) 4 mg IVP Q4 PRN PRN Reason: Nausea/Vomiting Last Admin: 11/18/18 03:05 Dose: 4 mg Pantoprazole Sodium (Protonix Inj) 40 mg IVP DAILY [facility] Last Admin: 11/17/18 11:21 Dose: 40 mg - Labs Labs: 11/18/18 05:05 11/18/18 05:05 PT 15.1 Seconds (9.8-13.1) H 11/11/18 09:53 INR 1.3 11/11/18 09:53 APTT 30.8 Seconds (25.6-37.1) 11/11/18 15:00 - Constitutional Appears: No Acute Distress - Eye Exam Eye Exam: Conjunctival injection - ENT Exam ENT Exam: Mucous Membranes Moist - Respiratory Exam Respiratory Exam: absent: Chest Wall Tenderness - Cardiovascular Exam Cardiovascular Exam: absent: Gallop, JVD, Rubs - GI/Abdominal Exam GI & Abdominal Exam: Guarding, Normal Bowel Sounds - Extremities Exam Extremities Exam: absent: Calf Tenderness - Back Exam Back Exam: absent: CVA tenderness (L), CVA tenderness (R) - Neurological Exam Neurological Exam: Alert - Psychiatric Exam Psychiatric exam: Normal Affect - Skin Skin Exam: absent: Cyanosis Assessment and Plan (1) ESRD (end stage renal disease) on dialysis Assessment & Plan: Assessment & Plan: End-stage renal disease patient on maintenance dialysis Saturday. S/P emergency surgery regarding small bowel resection 11/11 Leukocytosis Patient status post right upper arm transposition for AV fistula about few days ago in another hospital in [place]ym[place] with petechiae on the left lower leg Severe anemia In addition PMHx - T2DM, acute CVA, ESRD on HD, HTN, PSHx - Cranial surgery for CVA, EGD last 09/18 with LA grade C erosive esophagitis, gastritis and moderate stenosis at pylorus (09/2018), Anemia, HTN, HLD, NIDDM, gastroparesis, transmetatarsal amputation on the right foot The plan Patient to have dialysis MWF and follow-up by surgical team Status: Acute (2) GI bleed Status: Acute (3) Ischemia, bowel Status: Acute
[2018-11-18] MEDS: Labetalol 5mg/ml (4ml) IVP PRN (08:26)
[2018-11-18] MEDS: Insulin Lispro (humaLOG) 100 Units/ml Inj SC SCH ×4 (08:27→21:43)
[2018-11-18] MEDS: Ciprofloxacin 400mg/200ml D5W 400 MG/200 ML BAG IVPB SCH (08:28)
--- NOTE | 2018-11-18 11:05 | CP.PCM.PN ---
Subjective - Date & Time of Evaluation Date of Evaluation: 11/18/18 Time of Evaluation: 11:04 - Subjective Subjective: General Surgery Pt seen and examined this AM. He reports little abdominal pain, but reports having (+) nausea this AM. (-) vomiting. (+) flatus. He also reports having 6 loose BMs, mostly water. No BMs documented in I & O section of chart, as per RN notes pt with 1 large liquid BM. Currently on clear liquid diet. Pt had HD treatment yesterday. Afebrile. Labs and vitals noted. WBC trending down. K 3.4 today. PE Gen: Pt laying in bed in NAD Skin: abdominal incision with surrounding erythema and mild induration ~ 1cm from incision edges bilaterally. (-) drainage. (+) mild tenderness. Bilateral LEs with a scabbing erythematous (-) blanching, (+) maculopapular rash. (-) tenderness Cardio: s1s2 RRR Lungs: CTA bilaterally Abd: Soft, midline incision stapled (see Skin above), (-) distending Extr: (-) calf swelling bilaterally. (+) right foot amputation A/P POD 7 exploratory lap with small bowel resection and primary anastomosis Advance diet to full liquid (CCD/renal diet) today if pt tolerates can begin solids tomorrow Monitor BMs Monitor labs Monitor incision site Apply warm compresses to incision site TID. Encourage pt OOB and IS use. Objective - Vital Signs/Intake and Output Vital Signs (last 24 hours): Temp Pulse Resp BP Pulse Ox 99 F 94 H 20 166/93 H 99 11/18/18 07:47 11/18/18 07:47 11/18/18 07:47 11/18/18 07:47 11/18/18 07:47 - Medications Medications: Current Medications Dextrose (Dextrose 50% Inj) 0 ml IV STAT PRN; Protocol PRN Reason: Hypoglycemia Protocol Dextrose (Glutose 15) 0 gm PO ONCE PRN; Protocol PRN Reason: Hypoglycemia Protocol Glucagon (Glucagen Diagnostic Kit) 0 mg IM STAT PRN; Protocol PRN Reason: Hypoglycemia Protocol Heparin Sodium (Porcine) (Heparin) 5,000 units SC Q8 [facility]; Protocol Last Admin: 11/18/18 08:27 Dose: 5,000 units Ciprofloxacin (Cipro 400mg/200ml Dsw) 400 mg in 200 mls @ 200 mls/hr IVPB DAILY [facility]; Protocol Last Admin: 11/18/18 08:28 Dose: 200 mls/hr Metronidazole (Flagyl 500mg/100ml Ns) 100 mls @ 100 mls/hr IVPB Q8@0400,1200,2000 [facility]; Protocol Last Admin: 11/18/18 03:15 Dose: 100 mls/hr Insulin Human Lispro (Humalog) 0 units SC ACHS [facility]; Protocol Last Admin: 11/18/18 08:27 Dose: 6 units Labetalol HCl (Trandate) 20 mg IVP Q3 PRN PRN Reason: Systolic Blood Pressure Last Admin: 11/18/18 08:26 Dose: 20 mg Metoclopramide HCl (Reglan) 10 mg IVP Q6 PRN PRN Reason: Nausea/Vomiting Last Admin: 11/18/18 08:26 Dose: 10 mg Ondansetron HCl (Zofran Inj) 4 mg IVP Q4 PRN PRN Reason: Nausea/Vomiting Last Admin: 11/18/18 03:05 Dose: 4 mg Pantoprazole Sodium (Protonix Inj) 40 mg IVP DAILY [facility] Last Admin: 11/18/18 08:27 Dose: 40 mg - Labs Labs: 11/18/18 05:05 11/18/18 05:05 PT 15.1 Seconds (9.8-13.1) H 11/11/18 09:53 INR 1.3 11/11/18 09:53 APTT 30.8 Seconds (25.6-37.1) 11/11/18 15:00
[2018-11-18] MEDS ORDERED: Potassium CL 10 MEQ/50 ML 50 ML IVPB ONE (11:49)
[2018-11-18] MEDS: Magnesium Sulfate 1 gm in D5W 1 GM/100 ML BAG IVPB SCH ×2 (13:27→13:33)
[2018-11-18] MEDS: NIFEdipine 60 mg ER Tab PO SCH (18:05)
[2018-11-19] MEDS: metroNIDAZOLE 500mg/100ml NS 100 ML IVPB SCH ×3 (03:09→21:07)
[2018-11-19 06:25] LABS: HEMOGLOBIN 9.6 g/dL (12.0-18.0); MEAN CELL VOLUME 76.2 fl (80.0-94.0); MEAN CORPUSCULAR HEMOGLOBIN 24.7 pg (27.0-31.0); MEAN CORPUSCULAR HGB CONC 32.4 g/dL (33.0-37.0); RBC 3.88 Mil/uL (4.40-5.90); RED CELL DISTRIBUTION WIDTH 19.4 % (11.5-14.5); WHITE BLOOD COUNT 14.2 K/uL (4.8-10.8)
[2018-11-19] MEDS: Insulin Lispro (humaLOG) 100 Units/ml Inj SC SCH ×4 (08:00→21:08)
--- NOTE | 2018-11-19 10:42 | CP.PCM.PN ---
<Sesar Morin - Last Filed: 11/19/18 10:39> Subjective - Date & Time of Evaluation Date of Evaluation: 11/19/18 Time of Evaluation: 10:39 - Subjective Subjective: General Surgery Progress Note for Dr. Beck 47M seen and evaluated at bedside this morning. No acute events overnight. Patient had multiple liquid bowel movements and is passing gas. Tolerating diet. No complaints of pain. No nausea or vomiting. Patient is getting out of bed. Denies f/c, SOB, CP, headaches, dizziness, or urinary symptoms. Objective - Vital Signs/Intake and Output Vital Signs (last 24 hours): Temp Pulse Resp BP Pulse Ox 98.2 F 95 H 20 121/71 98 11/19/18 08:27 11/19/18 08:27 11/19/18 08:27 11/19/18 08:27 11/19/18 08:27 - Medications Medications: Current Medications Dextrose (Dextrose 50% Inj) 0 ml IV STAT PRN; Protocol PRN Reason: Hypoglycemia Protocol Dextrose (Glutose 15) 0 gm PO ONCE PRN; Protocol PRN Reason: Hypoglycemia Protocol Glipizide (Glucotrol) 10 mg PO BID [facility] Last Admin: 11/18/18 18:05 Dose: 10 mg Glucagon (Glucagen Diagnostic Kit) 0 mg IM STAT PRN; Protocol PRN Reason: Hypoglycemia Protocol Heparin Sodium (Porcine) (Heparin) 5,000 units SC Q8 [facility]; Protocol Last Admin: 11/19/18 00:47 Dose: 5,000 units Ciprofloxacin (Cipro 400mg/200ml Dsw) 400 mg in 200 mls @ 200 mls/hr IVPB DAILY [facility]; Protocol Last Admin: 11/18/18 08:28 Dose: 200 mls/hr Metronidazole (Flagyl 500mg/100ml Ns) 100 mls @ 100 mls/hr IVPB Q8@0400,1200,2000 [facility]; Protocol Last Admin: 11/19/18 03:09 Dose: 100 mls/hr Insulin Human Lispro (Humalog) 0 units SC ACHS [facility]; Protocol Last Admin: 11/18/18 21:43 Dose: Not Given Lactic Acid (Lac-Hydrin 12% Lotion (225 G)) 1 applic TOP DAILY [facility] Last Admin: 11/18/18 17:58 Dose: 1 applic Metoclopramide HCl (Reglan) 10 mg IVP Q6 PRN PRN Reason: Nausea/Vomiting Last Admin: 11/18/18 17:59 Dose: 10 mg Metoprolol Tartrate (Lopressor) 12.5 mg PO BID [facility] BEDS AT [facility] Last Admin: 11/18/18 18:06 Dose: 12.5 mg Nifedipine (Procardia Xl) 60 mg PO QPM [facility] 234 BEDS AT [facility] Last Admin: 11/18/18 18:05 Dose: 60 mg Ondansetron HCl (Zofran Inj) 4 mg IVP Q4 PRN PRN Reason: Nausea/Vomiting Last Admin: 11/18/18 03:05 Dose: 4 mg Pantoprazole Sodium (Protonix Ec Tab) 40 mg PO DAILY [facility] 234 [facility]S AT [facility] Sitagliptin Phosphate (Januvia) 50 mg PO BID [facility] 234 [facility]S AT [facility] Last Admin: 11/18/18 18:04 Dose: 50 mg - Labs Labs: 11/19/18 04:45 11/19/18 04:45 PT 15.1 Seconds (9.8-13.1) H 11/11/18 09:53 INR 1.3 11/11/18 09:53 APTT 30.8 Seconds (25.6-37.1) 11/11/18 15:00 - Constitutional Appears: Well, Non-toxic, No Acute Distress - Head Exam Head Exam: ATRAUMATIC, NORMAL INSPECTION, NORMOCEPHALIC - Eye Exam Eye Exam: EOMI - ENT Exam ENT Exam: Mucous Membranes Moist - Respiratory Exam Respiratory Exam: NORMAL BREATHING PATTERN. absent: Respiratory Distress - Cardiovascular Exam Cardiovascular Exam: REGULAR RHYTHM. absent: Tachycardia - GI/Abdominal Exam GI & Abdominal Exam: Soft, Tenderness, Normal Bowel Sounds. absent: Distended Additional comments: midline incision c/d/i however erythematous and edematous, no purulent discharge - Neurological Exam Neurological Exam: Alert, Awake, Oriented x3 - Psychiatric Exam Psychiatric exam: Normal Affect, Normal Mood - Skin Skin Exam: Dry, Intact, Normal Color, Warm Assessment and Plan - Assessment and Plan (Free Text) Assessment: 47M s/p exploratory laparotomy with small bowel resection POD8 Plan: Will advance to renal diet today Continue to monitor incision site - warm compresses TID Encourage IS use and ambulation Aggressive physical therapy Monitor diet tolerance and bowel function AM labs Further recommendations per Dr. Kiran Morin PGY1 <Fernando Beck - Last Filed: 11/19/18 10:49> Objective - Vital Signs/Intake and Output Vital Signs (last 24 hours): Temp Pulse Resp BP Pulse Ox 98.2 F 95 H 20 121/71 98 11/19/18 08:27 11/19/18 08:27 11/19/18 08:27 11/19/18 08:27 11/19/18 08:27 - Medications Medications: Current Medications Dextrose (Dextrose 50% Inj) 0 ml IV STAT PRN; Protocol PRN Reason: Hypoglycemia Protocol Dextrose (Glutose 15) 0 gm PO ONCE PRN; Protocol PRN Reason: Hypoglycemia Protocol Glipizide (Glucotrol) 10 mg PO BID [facility]S [facility] Last Admin: 11/18/18 18:05 Dose: 10 mg Glucagon (Glucagen Diagnostic Kit) 0 mg IM STAT PRN; Protocol PRN Reason: Hypoglycemia Protocol Heparin Sodium (Porcine) (Heparin) 5,000 units SC Q8 [facility]; Protocol Last Admin: 11/19/18 00:47 Dose: 5,000 units Ciprofloxacin (Cipro 400mg/200ml Dsw) 400 mg in 200 mls @ 200 mls/hr IVPB DAILY [facility]; Protocol Last Admin: 11/18/18 08:28 Dose: 200 mls/hr Metronidazole (Flagyl 500mg/100ml Ns) 100 mls @ 100 mls/hr IVPB Q8@0400,1200,2 000 [facility]; Protocol Last Admin: 11/19/18 03:09 Dose: 100 mls/hr Insulin Human Lispro (Humalog) 0 units SC ACHS [facility]; Protocol Last Admin: 11/18/18 21:43 Dose: Not Given Lactic Acid (Lac-Hydrin 12% Lotion (225 G)) 1 applic TOP DAILY [facility] 234 [facility]S [facility] Last Admin: 11/18/18 17:58 Dose: 1 applic Metoclopramide HCl (Reglan) 10 mg IVP Q6 PRN PRN Reason: Nausea/Vomiting Last Admin: 11/18/18 17:59 Dose: 10 mg Metoprolol Tartrate (Lopressor) 12.5 mg PO BID [facility] 234 B[facility]S AT [facility] Last Admin: 11/18/18 18:06 Dose: 12.5 mg Nifedipine (Procardia Xl) 60 mg PO QPM [facility] 234 BEDS AT [facility] Last Admin: 11/18/18 18:05 Dose: 60 mg Ondansetron HCl (Zofran Inj) 4 mg IVP Q4 PRN PRN Reason: Nausea/Vomiting Last Admin: 11/18/18 03:05 Dose: 4 mg Pantoprazole Sodium (Protonix Ec Tab) 40 mg PO DAILY [facility] Sitagliptin Phosphate (Januvia) 50 mg PO BID [facility] Last Admin: 11/18/18 18:04 Dose: 50 mg - Labs Labs: 11/19/18 04:45 11/19/18 04:45 PT 15.1 Seconds (9.8-13.1) H 11/11/18 09:53 INR 1.3 11/11/18 09:53 APTT 30.8 Seconds (25.6-37.1) 11/11/18 15:00 Assessment and Plan - Assessment and Plan (Free Text) Plan: addendum agree with resident. seen at bedside, no overnight events. Pt is tolerating full liquid diet. +BM watery, +flatus. incisional pain awake, alert, NAD abd: soft, incisonal tenderness, miranda in place incision c/d/i, surrounding erythema no active drainage a/p: s/p exlap, small bowel resection -advance renal diet -pain control -reglan Q6 -OOB to chair -monitor wound for any drainage -trend WBC
[2018-11-19] MEDS: Pantoprazole 40 mg EC Tab PO SCH (10:57)
[2018-11-19] MEDS: Ciprofloxacin 400mg/200ml D5W 400 MG/200 ML BAG IVPB SCH (11:02)
[2018-11-19] MEDS ORDERED: Magnesium Sulfate 1 gm in D5W 1 GM/100 ML BAG IVPB ONE (11:57)
--- NOTE | 2018-11-19 12:08 | CP.PCM.PN ---
Subjective - Date & Time of Evaluation Date of Evaluation: 11/19/18 Time of Evaluation: 12:06 - Subjective Subjective: Patient awake and conscious not in acute distress. Vital signs stable Appetite improving Objective - Vital Signs/Intake and Output Vital Signs (last 24 hours): Temp Pulse Resp BP Pulse Ox 98.3 F 96 H 20 136/81 98 11/19/18 11:49 11/19/18 11:49 11/19/18 11:49 11/19/18 11:49 11/19/18 11:49 - Medications Medications: Current Medications Dextrose (Dextrose 50% Inj) 0 ml IV STAT PRN; Protocol PRN Reason: Hypoglycemia Protocol Dextrose (Glutose 15) 0 gm PO ONCE PRN; Protocol PRN Reason: Hypoglycemia Protocol Glipizide (Glucotrol) 10 mg PO BID [facility] Last Admin: 11/19/18 09:58 Dose: 10 mg Glucagon (Glucagen Diagnostic Kit) 0 mg IM STAT PRN; Protocol PRN Reason: Hypoglycemia Protocol Heparin Sodium (Porcine) (Heparin) 5,000 units SC Q8 [facility]; Protocol Last Admin: 11/19/18 09:30 Dose: 5,000 units Ciprofloxacin (Cipro 400mg/200ml Dsw) 400 mg in 200 mls @ 200 mls/hr IVPB DAILY [facility]; Protocol Last Admin: 11/19/18 11:02 Dose: 200 mls/hr Metronidazole (Flagyl 500mg/100ml Ns) 100 mls @ 100 mls/hr IVPB Q8@0400,1200,2000 [facility]; Protocol Last Admin: 11/19/18 03:09 Dose: 100 mls/hr Magnesium Sulfate 1 gm/ Sodium (Chloride) 102 mls @ 204 mls/hr IVPB ONCE ONE Stop: 11/19/18 12:26 Insulin Human Lispro (Humalog) 0 units SC ACHS [facility]; Protocol Last Admin: 11/19/18 08:00 Dose: 2 units Lactic Acid (Lac-Hydrin 12% Lotion (225 G)) 1 applic TOP DAILY [facility] Last Admin: 11/19/18 10:57 Dose: 1 applic Metoclopramide HCl (Reglan) 10 mg IVP Q6 [facility] Last Admin: 11/19/18 11:02 Dose: 10 mg Metoprolol Tartrate (Lopressor) 12.5 mg PO BID [facility] Last Admin: 11/18/18 18:06 Dose: 12.5 mg Nifedipine (Procardia Xl) 60 mg PO QPM [facility] Last Admin: 11/18/18 18:05 Dose: 60 mg Ondansetron HCl (Zofran Inj) 4 mg IVP Q4 PRN PRN Reason: Nausea/Vomiting Last Admin: 11/18/18 03:05 Dose: 4 mg Pantoprazole Sodium (Protonix Ec Tab) 40 mg PO DAILY [facility] Last Admin: 11/19/18 10:57 Dose: 40 mg Sitagliptin Phosphate (Januvia) 50 mg PO BID [facility] Last Admin: 11/19/18 09:59 Dose: 50 mg - Labs Labs: 11/19/18 04:45 11/19/18 04:45 PT 15.1 Seconds (9.8-13.1) H 11/11/18 09:53 INR 1.3 11/11/18 09:53 APTT 30.8 Seconds (25.6-37.1) 11/11/18 15:00 - Constitutional Appears: No Acute Distress - Eye Exam Eye Exam: Conjunctival injection - ENT Exam ENT Exam: Mucous Membranes Moist - Neck Exam Neck Exam: absent: Lymphadenopathy - Respiratory Exam Respiratory Exam: absent: Chest Wall Tenderness - Cardiovascular Exam Cardiovascular Exam: absent: Gallop, JVD, Rubs - GI/Abdominal Exam GI & Abdominal Exam: Soft, Normal Bowel Sounds. absent: Rigid - Extremities Exam Extremities Exam: absent: Calf Tenderness - Back Exam Back Exam: absent: CVA tenderness (L), CVA tenderness (R) - Neurological Exam Neurological Exam: Alert - Psychiatric Exam Psychiatric exam: Normal Affect - Skin Skin Exam: absent: Cyanosis Assessment and Plan (1) ESRD (end stage renal disease) on dialysis Assessment & Plan: End-stage renal disease patient on maintenance dialysis Saturday. 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
[2018-11-19] MEDS: NIFEdipine 60 mg ER Tab PO SCH (19:44)
[2018-11-20 06:37] LABS: HEMOGLOBIN 9.5 g/dL (12.0-18.0); MEAN CELL VOLUME 76.6 fl (80.0-94.0); MEAN CORPUSCULAR HEMOGLOBIN 24.2 pg (27.0-31.0); MEAN CORPUSCULAR HGB CONC 31.6 g/dL (33.0-37.0); RBC 3.93 Mil/uL (4.40-5.90); RED CELL DISTRIBUTION WIDTH 19.6 % (11.5-14.5); WHITE BLOOD COUNT 12.9 K/uL (4.8-10.8)
[2018-11-20 07:04] LABS: ALB/GLOB RATIO 0.8 (1.0-2.1); ALBUMIN 2.8 g/dL (3.5-5.0); CALCIUM 7.9 mg/dL (8.4-10.2)
--- NOTE | 2018-11-20 07:15 | CP.PCM.PN ---
Subjective - Date & Time of Evaluation Date of Evaluation: 11/20/18 Time of Evaluation: 07:13 - Subjective Subjective: General Surgery: Dr Beck Pt S&E. ASHLEY. Continues with +watery BM x 5. No foul odor. Passing flatus. Tolerating renal diet. Erythema on wound unchanged, no active drainage. No pain at this time. Denies sob, chest pain, fevers, chills, nausea or vomiting. Objective - Vital Signs/Intake and Output Vital Signs (last 24 hours): Temp Pulse Resp BP Pulse Ox 99.0 F 88 18 125/76 94 L 11/20/18 04:51 11/20/18 04:51 11/20/18 04:51 11/20/18 04:51 11/20/18 04:51 - Medications Medications: Current Medications Dextrose (Dextrose 50% Inj) 0 ml IV STAT PRN; Protocol PRN Reason: Hypoglycemia Protocol Dextrose (Glutose 15) 0 gm PO ONCE PRN; Protocol PRN Reason: Hypoglycemia Protocol Glipizide (Glucotrol) 10 mg PO BID [facility] Last Admin: 11/19/18 17:43 Dose: 10 mg Glucagon (Glucagen Diagnostic Kit) 0 mg IM STAT PRN; Protocol PRN Reason: Hypoglycemia Protocol Heparin Sodium (Porcine) (Heparin) 5,000 units SC Q8 [facility]; Protocol Last Admin: 11/20/18 00:50 Dose: 5,000 units Ciprofloxacin (Cipro 400mg/200ml Dsw) 400 mg in 200 mls @ 200 mls/hr IVPB DAILY [facility]; Protocol Last Admin: 11/19/18 11:02 Dose: 200 mls/hr Insulin Human Lispro (Humalog) 0 units SC ACHS [facility]; Protocol Last Admin: 11/19/18 21:08 Dose: Not Given Lactic Acid (Lac-Hydrin 12% Lotion (225 G)) 1 applic TOP DAILY [facility] Last Admin: 11/19/18 10:57 Dose: 1 applic Metoclopramide HCl (Reglan) 10 mg IVP Q6 [facility] Last Admin: 11/20/18 04:00 Dose: 10 mg Metoprolol Tartrate (Lopressor) 12.5 mg PO BID [facility] Last Admin: 11/19/18 19:43 Dose: 12.5 mg Nifedipine (Procardia Xl) 60 mg PO QPM [facility] Last Admin: 11/19/18 19:44 Dose: 60 mg Ondansetron HCl (Zofran Inj) 4 mg IVP Q4 PRN PRN Reason: Nausea/Vomiting Last Admin: 11/18/18 03:05 Dose: 4 mg Pantoprazole Sodium (Protonix Ec Tab) 40 mg PO DAILY [facility] Last Admin: 11/19/18 10:57 Dose: 40 mg Sitagliptin Phosphate (Januvia) 50 mg PO BID [facility] Last Admin: 11/19/18 17:44 Dose: 50 mg - Labs Labs: 11/20/18 05:30 11/20/18 05:30 PT 15.1 Seconds (9.8-13.1) H 11/11/18 09:53 INR 1.3 11/11/18 09:53 APTT 30.8 Seconds (25.6-37.1) 11/11/18 15:00 - Constitutional Appears: Non-toxic, No Acute Distress - ENT Exam ENT Exam: Mucous Membranes Moist - Respiratory Exam Respiratory Exam: absent: Accessory Muscle Use, Respiratory Distress - Cardiovascular Exam Cardiovascular Exam: REGULAR RHYTHM - GI/Abdominal Exam GI & Abdominal Exam: Soft. absent: Distended, Firm, Tenderness Additional comments: unchanged erythema around incision. probed with minimal serosanguinous drainage. - Neurological Exam Neurological Exam: Alert, Awake, Oriented x3 - Psychiatric Exam Psychiatric exam: Normal Affect, Normal Mood Assessment and Plan - Assessment and Plan (Free Text) Assessment: 47M POD#9 ex-lap w/ sb resection and prior anastamosis 2/2 ischemia Plan: recovering well tolerating renal diet cont reglan q6h cont OOB to chair could benefit from tighter glucose control will d/w attending, further recs to follow Teddy Sifuentes, PGY4
--- NOTE | 2018-11-20 09:00 | PN ---
DATE: 11/19/2018 SUBJECTIVE: The patient seen and examined. Interim events noted. The patient remains in progressive care unit, on telemetry monitoring. The patient tolerated liquid diet very well, had a large bowel movement. She has lots of burping and sometime diarrhea, but no chest pain or abdominal pain. PHYSICAL EXAMINATION: GENERAL: The patient is in no acute distress. VITAL SIGNS: Stable. HEART: S1 and S2, normal, regular. LUNGS: Good bilateral air exchange. ABDOMEN: The patient has a midline surgical scar edema on the sides. No sign of acute complication. Bowel sounds are present. Abdomen otherwise is soft, nontender. abdomen. EXTREMITIES: The patient has right upper extremity intact. . No calf swelling. No tenderness. No acute ischemia. The patient has chronic venous kind of ulcers left lower extremity. CENTRAL NERVOUS SYSTEM: Essentially unchanged. DIAGNOSTIC DATA: Available diagnostic data reviewed. White count is 14. Telemetry monitoring does not show significant arrhythmia. ASSESSMENT AND PLAN: Overall, the patient is clinically stable and improved. Plan as ordered. Joel Lake MD
--- NOTE | 2018-11-20 09:52 | CP.PCM.PN ---
Subjective - Date & Time of Evaluation Date of Evaluation: 11/20/18 Time of Evaluation: 09:47 - Subjective Subjective: General Surgery Pt seen and examined this AM. He reports having multiple loose BMs all through the night, quantifying at least 5 brown watery stool with no odor. He also reports occasional nausea but is able to eat his food without difficulty. Pt has been afebrile. Pt has been applying warm compresses to abdominal surgical incision. Labs and vitals noted. WBC slightly elevated. K 3.3 PE Gen: Pt asleep in bed in NAD Skin: warm and dry. Nonblanchable erythemaout rash with some scabbing on bilateral LEs. (-) tenderness. Right UE: healing surgical incision from previous fistula surgery with mild erythema around edges, sutures embedded with miranda in place. Abd: Surgical incision stapled c/d/i. (+) erythema, (+) dimitry ration, (-) tenderness with no change from previous days. Cardio: s1s2 RRR Lungs: CTA Bilaterally Abd: Soft, NTND. See Skin above. Extr: (+) right foot amputation. A/P POD 9 exploratory lap with small bowel resection and primary anastomosis Pt on solids with diarrhea. Order entered for immodium. This may be due to the large small bowel resection K 3.3, pt is on HD, may need repletion if pt continues with diarrhea, electrolytes to be managed by nephro/medicine Incision infection, continue warm compresses, pt is currently only on Cipro, suggest adding another antibiotics per medicine. Partial sutures and miranda removed from RUE with some difficulty. Monitor labs Monitor BM Monitor surgical incision site Objective - Vital Signs/Intake and Output Vital Signs (last 24 hours): Temp Pulse Resp BP Pulse Ox 98.8 F 89 20 124/77 95 11/20/18 07:50 11/20/18 07:50 11/20/18 07:50 11/20/18 07:50 11/20/18 07:50 - Medications Medications: Current Medications Dextrose (Dextrose 50% Inj) 0 ml IV STAT PRN; Protocol PRN Reason: Hypoglycemia Protocol Dextrose (Glutose 15) 0 gm PO ONCE PRN; Protocol PRN Reason: Hypoglycemia Protocol Glipizide (Glucotrol) 10 mg PO BID [facility] Last Admin: 11/19/18 17:43 Dose: 10 mg Glucagon (Glucagen Diagnostic Kit) 0 mg IM STAT PRN; Protocol PRN Reason: Hypoglycemia Protocol Heparin Sodium (Porcine) (Heparin) 5,000 units SC Q8 [facility]; Protocol Last Admin: 11/20/18 00:50 Dose: 5,000 units Ciprofloxacin (Cipro 400mg/200ml Dsw) 400 mg in 200 mls @ 200 mls/hr IVPB DAILY [facility]; Protocol Last Admin: 11/19/18 11:02 Dose: 200 mls/hr Insulin Human Lispro (Humalog) 0 units SC ACHS [facility]; Protocol Last Admin: 11/19/18 21:08 Dose: Not Given Lactic Acid (Lac-Hydrin 12% Lotion (225 G)) 1 applic TOP DAILY [facility] Last Admin: 11/19/18 10:57 Dose: 1 applic Metoclopramide HCl (Reglan) 10 mg IVP Q6 [facility] Last Admin: 11/20/18 04:00 Dose: 10 mg Metoprolol Tartrate (Lopressor) 12.5 mg PO BID [facility] Last Admin: 11/19/18 19:43 Dose: 12.5 mg Nifedipine (Procardia Xl) 60 mg PO QPM [facility] Last Admin: 11/19/18 19:44 Dose: 60 mg Ondansetron HCl (Zofran Inj) 4 mg IVP Q4 PRN PRN Reason: Nausea/Vomiting Last Admin: 11/18/18 03:05 Dose: 4 mg Pantoprazole Sodium (Protonix Ec Tab) 40 mg PO DAILY [facility] Last Admin: 11/19/18 10:57 Dose: 40 mg Sitagliptin Phosphate (Januvia) 50 mg PO BID [facility] Last Admin: 11/19/18 17:44 Dose: 50 mg - Labs Labs: 11/20/18 05:30 11/20/18 05:30 PT 15.1 Seconds (9.8-13.1) H 11/11/18 09:53 INR 1.3 11/11/18 09:53 APTT 30.8 Seconds (25.6-37.1) 11/11/18 15:00
[2018-11-20] MEDS: Insulin Lispro (humaLOG) 100 Units/ml Inj SC SCH ×4 (10:17→21:40)
[2018-11-20] MEDS: Pantoprazole 40 mg EC Tab PO SCH (10:21)
[2018-11-20] MEDS: Ciprofloxacin 400mg/200ml D5W 400 MG/200 ML BAG IVPB SCH (10:37)
--- NOTE | 2018-11-20 15:56 | CP.PCM.PCO ---
Assessment/Plan - Assessment/Plan Assessment (Free Text): Patient seen and examined this morning. Had loose bms earlier, occasional nausea, on regular diet at this time. Surgical site erythematous, miranda c/d/i denies chest pain, vomiting. Plan discussed with Surgery and ID, Dr Elam. Ciprofloxacin discontinued, switch over to vancomycin , renal dose. W Will repeat labs and continue to monitor. Vanco random in AM. - Problems Patient Problems: Problem List (Active/Current) Problem Status Onset Code Acute on chronic renal insufficiency Acute N28.9, N18.9 ESRD (end stage renal disease) on dialysis Acute N18.6, Z99.2 GI bleed Acute K92.2 Ischemia, bowel Acute K55.9 SBO (small bowel obstruction) Acute K56.609 Sepsis Acute A41.9
--- NOTE | 2018-11-20 16:57 | CP.PCM.PN ---
Subjective - Date & Time of Evaluation Date of Evaluation: 11/20/18 Time of Evaluation: 16:57 - Subjective Subjective: renal follow up note no events overnight vitals rviewed heent normal nad ao times 3 no jvd s1s2 present no resp distress abd soft bs+ normal skin no rash cooperative esrd/small bowel resection surgery/htn/dm/anemia hd mwf continue per schedule anemia dillon as needed lytes ok bp stable phos controlled calcium normal dm per primary team Objective - Vital Signs/Intake and Output Vital Signs (last 24 hours): Temp Pulse Resp BP Pulse Ox 98.8 F 90 20 129/75 95 11/20/18 15:53 11/20/18 15:53 11/20/18 15:53 11/20/18 15:53 11/20/18 15:53 - Medications Medications: Current Medications Dextrose (Dextrose 50% Inj) 0 ml IV STAT PRN; Protocol PRN Reason: Hypoglycemia Protocol Dextrose (Glutose 15) 0 gm PO ONCE PRN; Protocol PRN Reason: Hypoglycemia Protocol Glipizide (Glucotrol) 10 mg PO BID [facility] Last Admin: 11/20/18 12:17 Dose: 10 mg Glucagon (Glucagen Diagnostic Kit) 0 mg IM STAT PRN; Protocol PRN Reason: Hypoglycemia Protocol Heparin Sodium (Porcine) (Heparin) 5,000 units SC Q8 [facility]; Protocol Last Admin: 11/20/18 10:15 Dose: 5,000 units Vancomycin HCl 500 mg/ Sodium (Chloride) 100 mls @ 100 mls/hr IVPB DAILY [facility]; Protocol Last Admin: 11/20/18 12:08 Dose: 100 mls/hr Insulin Human Lispro (Humalog) 0 units SC ACHS [facility]; Protocol Last Admin: 11/20/18 12:19 Dose: 4 units Lactic Acid (Lac-Hydrin 12% Lotion (225 G)) 1 applic TOP DAILY [facility] Last Admin: 11/20/18 10:19 Dose: 1 applic Loperamide HCl (Imodium) 2 mg PO Q6 [facility] Last Admin: 11/20/18 12:18 Dose: 2 mg Metoclopramide HCl (Reglan) 10 mg IVP Q6 [facility] Last Admin: 11/20/18 10:21 Dose: 10 mg Metoprolol Tartrate (Lopressor) 12.5 mg PO BID [facility] Last Admin: 11/20/18 10:20 Dose: 12.5 mg Nifedipine (Procardia Xl) 60 mg PO QPM [facility] Last Admin: 11/19/18 19:44 Dose: 60 mg Ondansetron HCl (Zofran Inj) 4 mg IVP Q4 PRN PRN Reason: Nausea/Vomiting Last Admin: 11/20/18 10:38 Dose: 4 mg Pantoprazole Sodium (Protonix Ec Tab) 40 mg PO DAILY [facility] Last Admin: 11/20/18 10:21 Dose: 40 mg Sitagliptin Phosphate (Januvia) 50 mg PO BID [facility] Last Admin: 11/20/18 10:19 Dose: 50 mg - Labs Labs: 11/20/18 05:30 11/20/18 05:30 PT 15.1 Seconds (9.8-13.1) H 11/11/18 09:53 INR 1.3 11/11/18 09:53 APTT 30.8 Seconds (25.6-37.1) 11/11/18 15:00
[2018-11-20] MEDS: NIFEdipine 60 mg ER Tab PO SCH (18:15)
[2018-11-21 06:06] LABS: HEMOGLOBIN 9.2 g/dL (12.0-18.0); MEAN CELL VOLUME 76.2 fl (80.0-94.0); MEAN CORPUSCULAR HEMOGLOBIN 24.1 pg (27.0-31.0); MEAN CORPUSCULAR HGB CONC 31.6 g/dL (33.0-37.0); RBC 3.82 Mil/uL (4.40-5.90); RED CELL DISTRIBUTION WIDTH 20.1 % (11.5-14.5); WHITE BLOOD COUNT 15.9 K/uL (4.8-10.8)
[2018-11-21] MEDS ORDERED: Epoetin Alfa 20000 UNIT/ML Inj IV SCH (09:00)
--- NOTE | 2018-11-21 09:12 | PN ---
DATE: 11/19/2018 SUBJECTIVE: The patient seen and examined. Interim events noted. Consults noted and appreciated. The patient remains in progressive care unit. Telemetry monitoring reveals ____ but improving, gas and stomach upset improved remarkably. Tolerated fluid well. Also moving bowels. PHYSICAL EXAMINATION GENERAL: The patient is in no acute distress. VITAL SIGNS: Stable. HEART EXAM: S1, S2. Normal and regular. LUNGS: Good bilateral air exchange. ABDOMEN: Soft and nontender. Surgical site is clean. There is a small area of ____ close to umbilicus. No sign of surrounding cellulitis. No sign of acute abdomen. No guarding. No rebound. Bowel sounds are present and normal. EXTREMITIES: The patient is status post amputation. No edema. No calf swelling. No tenderness. No acute ischemia. CENTRAL NERVOUS EXAM: Essentially unchanged. DIAGNOSTIC DATA: Available diagnostic data reviewed. Telemetry monitoring does not show significant arrhythmias. ASSESSMENT: Overall, the patient's medical condition is stable and improving. Plan as ordered. Joel Lake MD
[2018-11-21] MEDS: Pantoprazole 40 mg EC Tab PO SCH (09:32)
[2018-11-21] MEDS: Insulin Lispro (humaLOG) 100 Units/ml Inj SC SCH ×4 (09:35→21:35)
--- NOTE | 2018-11-21 11:26 | CP.PCM.PN ---
<Sesar Morin - Last Filed: 11/21/18 11:52> Subjective - Date & Time of Evaluation Date of Evaluation: 11/21/18 Time of Evaluation: 11:23 - Subjective Subjective: General Surgery Progress Note for Dr. Cormier 47M seen and evaluated at bedside this morning. No acute events overnight. No complaints this morning. Patient tolerating diet and ambulating. Having BM and passing flatus. Denies f/c, n/v, SOB, CP, headaches, dizziness, or urinary symptoms. Objective - Vital Signs/Intake and Output Vital Signs (last 24 hours): Temp Pulse Resp BP Pulse Ox 98.9 F 98 H 18 147/81 100 11/21/18 08:06 11/21/18 09:29 11/21/18 08:06 11/21/18 09:29 11/21/18 08:06 - Medications Medications: Current Medications Dextrose (Dextrose 50% Inj) 0 ml IV STAT PRN; Protocol PRN Reason: Hypoglycemia Protocol Dextrose (Glutose 15) 0 gm PO ONCE PRN; Protocol PRN Reason: Hypoglycemia Protocol Glipizide (Glucotrol) 10 mg PO BID [facility] Last Admin: 11/21/18 09:26 Dose: 10 mg Glucagon (Glucagen Diagnostic Kit) 0 mg IM STAT PRN; Protocol PRN Reason: Hypoglycemia Protocol Heparin Sodium (Porcine) (Heparin) 5,000 units SC Q8 [facility]; Protocol Last Admin: 11/21/18 09:33 Dose: 5,000 units Vancomycin HCl 500 mg/ Sodium (Chloride) 100 mls @ 100 mls/hr IVPB DAILY [facility]; Protocol Last Admin: 11/21/18 09:29 Dose: 100 mls/hr Insulin Human Lispro (Humalog) 0 units SC ACHS [facility]; Protocol Last Admin: 11/21/18 09:35 Dose: 2 units Lactic Acid (Lac-Hydrin 12% Lotion (225 G)) 1 applic TOP DAILY [facility] Last Admin: 11/21/18 09:28 Dose: 1 applic Loperamide HCl (Imodium) 2 mg PO Q6 [facility] Last Admin: 11/21/18 09:38 Dose: 2 mg Metoclopramide HCl (Reglan) 10 mg IVP Q6 [facility] Last Admin: 11/21/18 09:30 Dose: 10 mg Metoprolol Tartrate (Lopressor) 12.5 mg PO BID [facility] Last Admin: 11/21/18 09:29 Dose: 12.5 mg Nifedipine (Procardia Xl) 60 mg PO QPM [facility] Last Admin: 11/20/18 18:15 Dose: 60 mg Ondansetron HCl (Zofran Inj) 4 mg IVP Q4 PRN PRN Reason: Nausea/Vomiting Last Admin: 11/20/18 10:38 Dose: 4 mg Pantoprazole Sodium (Protonix Ec Tab) 40 mg PO DAILY [facility] Last Admin: 11/21/18 09:32 Dose: 40 mg Sitagliptin Phosphate (Januvia) 50 mg PO BID [facility] Last Admin: 11/21/18 09:28 Dose: 50 mg - Labs Labs: 11/21/18 05:20 11/20/18 05:30 PT 15.1 Seconds (9.8-13.1) H 11/11/18 09:53 INR 1.3 11/11/18 09:53 APTT 30.8 Seconds (25.6-37.1) 11/11/18 15:00 - Constitutional Appears: Well, Non-toxic, No Acute Distress - Head Exam Head Exam: ATRAUMATIC, NORMAL INSPECTION, NORMOCEPHALIC - Eye Exam Eye Exam: EOMI - ENT Exam ENT Exam: Mucous Membranes Dry - Respiratory Exam Respiratory Exam: NORMAL BREATHING PATTERN. absent: Respiratory Distress - GI/Abdominal Exam GI & Abdominal Exam: Soft, Tenderness, Normal Bowel Sounds Additional comments: Midline incision erythematous, no active purulent drainage - Neurological Exam Neurological Exam: Alert, Awake - Psychiatric Exam Psychiatric exam: Normal Affect, Normal Mood - Skin Skin Exam: Dry, Intact, Normal Color, Warm Assessment and Plan - Assessment and Plan (Free Text) Assessment: 47M s/p ex-lap w/ small bowel resection POD10 Plan: Continue monitor midline incision Clindamycin for wound infection Warm compresses Encourage ambulation Monitor diet tolerance and bowel function Analgesics and antiemetics PRN Further recommendations per Dr. Casa Morin PGY1 <Dylan Cormier - Last Filed: 11/21/18 12:20> Subjective - Subjective Subjective: Patient was seen and examined at the bedside. Agree with resident's note above. Objective - Vital Signs/Intake and Output Vital Signs (last 24 hours): Temp Pulse Resp BP Pulse Ox 98.8 F 102 H 20 127/76 97 11/21/18 11:49 11/21/18 11:49 11/21/18 11:49 11/21/18 11:49 11/21/18 11:49 - Medications Medications: Current Medications Dextrose (Dextrose 50% Inj) 0 ml IV STAT PRN; Protocol PRN Reason: Hypoglycemia Protocol Dextrose (Glutose 15) 0 gm PO ONCE [facility]N; Protocol PRN Reason: Hypoglycemia Protocol Glipizide (Glucotrol) 10 mg PO BID [facility] Last Admin: 11/21/18 09:26 Dose: 10 mg Glucagon (Glucagen Diagnostic Kit) 0 mg IM STAT PRN; Protocol PRN Reason: Hypoglycemia Protocol Heparin Sodium (Porcine) (Heparin) 5,000 units SC Q8 [facility]; Protocol Last Admin: 11/21/18 09:33 Dose: 5,000 units Vancomycin HCl 500 mg/ Sodium (Chloride) 100 mls @ 100 mls/hr IVPB DAILY [facility]; Protocol Last Admin: 11/21/18 09:29 Dose: 100 mls/hr Insulin Human Lispro (Humalog) 0 units SC ACHS [facility]; Protocol Last Admin: 11/21/18 09:35 Dose: 2 units Lactic Acid (Lac-Hydrin 12% Lotion (225 G)) 1 applic TOP DAILY [facility] Last Admin: 11/21/18 09:28 Dose: 1 applic Loperamide HCl (Imodium) 2 mg PO Q6 [facility] Last Admin: 11/21/18 09:38 Dose: 2 mg Metoclopramide HCl (Reglan) 10 mg IVP Q6 [facility] Last Admin: 11/21/18 09:30 Dose: 10 mg Metoprolol Tartrate (Lopressor) 12.5 mg PO BID [facility] Last Admin: 11/21/18 09:29 Dose: 12.5 mg Nifedipine (Procardia Xl) 60 mg PO QPM [facility] Last Admin: 11/20/18 18:15 Dose: 60 mg Ondansetron HCl (Zofran Inj) 4 mg IVP Q4 PRN PRN Reason: Nausea/Vomiting Last Admin: 11/20/18 10:38 Dose: 4 mg Pantoprazole Sodium (Protonix Ec Tab) 40 mg PO DAILY [facility] Last Admin: 11/21/18 09:32 Dose: 40 mg Sitagliptin Phosphate (Januvia) 50 mg PO BID [facility] Last Admin: 11/21/18 09:28 Dose: 50 mg - Labs Labs: 11/21/18 05:20 11/20/18 05:30 PT 15.1 Seconds (9.8-13.1) H 11/11/18 09:53 INR 1.3 11/11/18 09:53 APTT 30.8 Seconds (25.6-37.1) 11/11/18 15:00 Assessment and Plan - Assessment and Plan (Free Text) Plan: Vancomycin for antibiotics, not Clindamycin
--- NOTE | 2018-11-21 11:38 | PN ---
DATE: 11/21/2018 SUBJECTIVE: The patient seen and examined. Interim events noted. Consults noted and appreciated. The patient remains in progressive care unit with telemetry monitoring. Feels much better. Diarrhea resolved, tolerating food very well. No chest pain. No shortness of breath. Abdominal pain is controlled. PHYSICAL EXAMINATION: GENERAL: The patient is in no acute distress. VITAL SIGNS: Stable. HEART: S1, S2 normal and regular. LUNGS: Good bilateral air exchange. ABDOMEN: Soft, nontender. The patient has mild erythema around abdominal wound site, was consistent with postop healing. No clear sign of cellulitis or discharge. No sign of acute abdomen. No guarding, no rigidity, no rebound. Bowel sounds are present and normal. EXTREMITIES: The patient is status post amputations. No edema. No calf swelling. No tenderness. No acute ischemia. CENTRAL NERVOUS SYSTEM: Essentially unchanged. DIAGNOSTIC DATA: Available diagnostic data reviewed. Telemetry monitoring does not show significant arrhythmias. ASSESSMENT AND PLAN: Overall, the patient's general medical condition is stable and improving. Plan as ordered. Joel Lake MD
--- NOTE | 2018-11-21 15:13 | CP.PCM.PN ---
Objective - Vital Signs/Intake and Output Vital Signs (last 24 hours): Temp Pulse Resp BP Pulse Ox 98.8 F 102 H 20 127/76 97 11/21/18 11:49 11/21/18 11:49 11/21/18 11:49 11/21/18 11:49 11/21/18 11:49 - Medications Medications: Current Medications Dextrose (Dextrose 50% Inj) 0 ml IV STAT PRN; Protocol PRN Reason: Hypoglycemia Protocol Dextrose (Glutose 15) 0 gm PO ONCE PRN; Protocol PRN Reason: Hypoglycemia Protocol Glipizide (Glucotrol) 10 mg PO BID [facility] Last Admin: 11/21/18 09:26 Dose: 10 mg Glucagon (Glucagen Diagnostic Kit) 0 mg IM STAT PRN; Protocol PRN Reason: Hypoglycemia Protocol Heparin Sodium (Porcine) (Heparin) 5,000 units SC Q8 [facility]; Protocol Last Admin: 11/21/18 09:33 Dose: 5,000 units Vancomycin HCl 500 mg/ Sodium (Chloride) 100 mls @ 100 mls/hr IVPB DAILY [facility]; Protocol Last Admin: 11/21/18 09:29 Dose: 100 mls/hr Insulin Human Lispro (Humalog) 0 units SC ACHS [facility]; Protocol Last Admin: 11/21/18 12:45 Dose: 2 units Lactic Acid (Lac-Hydrin 12% Lotion (225 G)) 1 applic TOP DAILY [facility] Last Admin: 11/21/18 09:28 Dose: 1 applic Loperamide HCl (Imodium) 2 mg PO Q6 [facility] Last Admin: 11/21/18 09:38 Dose: 2 mg Metoclopramide HCl (Reglan) 10 mg IVP Q6 [facility] Last Admin: 11/21/18 09:30 Dose: 10 mg Metoprolol Tartrate (Lopressor) 12.5 mg PO BID [facility] Last Admin: 11/21/18 09:29 Dose: 12.5 mg Nifedipine (Procardia Xl) 60 mg PO QPM [facility] Last Admin: 11/20/18 18:15 Dose: 60 mg Ondansetron HCl (Zofran Inj) 4 mg IVP Q4 PRN PRN Reason: Nausea/Vomiting Last Admin: 11/20/18 10:38 Dose: 4 mg Pantoprazole Sodium (Protonix Ec Tab) 40 mg PO DAILY [facility] Last Admin: 11/21/18 09:32 Dose: 40 mg Sitagliptin Phosphate (Januvia) 50 mg PO BID [facility] Last Admin: 11/21/18 09:28 Dose: 50 mg - Labs Labs: 11/21/18 05:20 11/20/18 05:30 PT 15.1 Seconds (9.8-13.1) H 11/11/18 09:53 INR 1.3 11/11/18 09:53 APTT 30.8 Seconds (25.6-37.1) 11/11/18 15:00 Assessment and Plan (1) ESRD (end stage renal disease) on dialysis Status: Acute (2) GI bleed Status: Acute (3) Ischemia, bowel Status: Acute
--- NOTE | 2018-11-21 15:16 | CP.PCM.PN ---
Subjective - Date & Time of Evaluation Date of Evaluation: 11/21/18 Time of Evaluation: 15:18 - Subjective Subjective: Patient awake and conscious not in acute distress. Vital signs noted to be stable Appetite improving Objective - Vital Signs/Intake and Output Vital Signs (last 24 hours): Temp Pulse Resp BP Pulse Ox 98.8 F 102 H 20 127/76 97 11/21/18 11:49 11/21/18 11:49 11/21/18 11:49 11/21/18 11:49 11/21/18 11:49 - Medications Medications: Current Medications Dextrose (Dextrose 50% Inj) 0 ml IV STAT PRN; Protocol PRN Reason: Hypoglycemia Protocol Dextrose (Glutose 15) 0 gm PO ONCE PRN; Protocol PRN Reason: Hypoglycemia Protocol Glipizide (Glucotrol) [address] [facility] Last Admin: 11/21/18 09:26 Dose: 10 mg Glucagon (Glucagen Diagnostic Kit) 0 mg IM STAT PRN; Protocol PRN Reason: Hypoglycemia Protocol Heparin Sodium (Porcine) (Heparin) 5,000 units SC Q8 [facility]; Protocol Last Admin: 11/21/18 09:33 Dose: 5,000 units Vancomycin HCl 500 mg/ Sodium (Chloride) 100 mls @ 100 mls/hr IVPB DAILY [facility]; Protocol Last Admin: 11/21/18 09:29 Dose: 100 mls/hr Insulin Human Lispro (Humalog) [address] [facility]; Protocol Last Admin: 11/21/18 12:45 Dose: 2 units Lactic Acid (Lac-Hydrin 12% Lotion (225 G)) 1 applic TOP DAILY [facility] Last Admin: 11/21/18 09:28 Dose: 1 applic Loperamide HCl (Imodium) 2 mg PO Q6 [facility] Last Admin: 11/21/18 09:38 Dose: 2 mg Metoclopramide HCl (Reglan) 10 mg IVP Q6 [facility] Last Admin: 11/21/18 09:30 Dose: 10 mg Metoprolol Tartrate (Lopressor) 12.[address] [facility] Last Admin: 11/21/18 09:29 Dose: 12.5 mg Nifedipine (Procardia Xl) 60 mg PO QPM [facility] Last Admin: 11/20/18 18:15 Dose: 60 mg Ondansetron HCl (Zofran Inj) 4 mg IVP Q4 PRN PRN Reason: Nausea/Vomiting Last Admin: 11/20/18 10:38 Dose: 4 mg Pantoprazole Sodium (Protonix Ec Tab) [address] [facility] Last Admin: 11/21/18 09:32 Dose: 40 mg Sitagliptin Phosphate (Januvia) [address] [facility] Last Admin: 11/21/18 09:28 Dose: 50 mg - Labs Labs: 11/21/18 05:20 11/20/18 05:30 PT 15.1 Seconds (9.8-13.1) H 11/11/18 09:53 INR 1.3 11/11/18 09:53 APTT 30.8 Seconds (25.6-37.1) 11/11/18 15:00 - Eye Exam Eye Exam: Conjunctival injection - ENT Exam ENT Exam: Mucous Membranes Moist - Neck Exam Neck Exam: absent: Lymphadenopathy - Respiratory Exam Respiratory Exam: NORMAL BREATHING PATTERN. absent: Chest Wall Tenderness - Cardiovascular Exam Cardiovascular Exam: absent: Gallop, JVD, Rubs - GI/Abdominal Exam GI & Abdominal Exam: Soft, Normal Bowel Sounds - Extremities Exam Extremities Exam: absent: Calf Tenderness - Back Exam Back Exam: absent: CVA tenderness (L), CVA tenderness (R) - Neurological Exam Neurological Exam: Alert - Psychiatric Exam Psychiatric exam: Normal Affect - Skin Skin Exam: absent: Cyanosis Assessment and Plan (1) ESRD (end stage renal disease) on dialysis Assessment & Plan: End-stage renal disease patient on maintenance dialysis Saturday. S/P emergency surgery regarding small bowel resection 11/11 Leukocytosis Patient status post right upper arm transposition for AV fistula about few days ago in another hospital in [place] with petechiae on the left lower leg Severe anemia In addition PMHx - T2DM, acute CVA, ESRD on HD, HTN, PSHx - Cranial surgery for CVA, EGD last 09/18 with LA grade C erosive esophagitis, gastritis and moderate stenosis at pylorus (09/2018), Anemia, HTN, HLD, NIDDM, gastroparesis, transmetatarsal amputation on the right foot The plan Patient to have hemodialysis shortly as scheduled Epogen for the anemia Status: Acute (2) GI bleed Status: Acute (3) Ischemia, bowel Status: Acute
[2018-11-21] MEDS ORDERED: Epoetin Alfa 4000 UNIT/ML Inj IV SCH (15:45)
[2018-11-21] MEDS: NIFEdipine 60 mg ER Tab PO SCH (18:07)
[2018-11-22 06:51] LABS: MEAN CELL VOLUME 75.9 fl (80.0-94.0); MEAN CORPUSCULAR HEMOGLOBIN 24.3 pg (27.0-31.0); RBC 3.69 Mil/uL (4.40-5.90); RED CELL DISTRIBUTION WIDTH 20.1 % (11.5-14.5); WHITE BLOOD COUNT 16.6 K/uL (4.8-10.8)
[2018-11-22 07:32] LABS: ALB/GLOB RATIO 0.7 (1.0-2.1); ALBUMIN 2.6 g/dL (3.5-5.0); CALCIUM 7.7 mg/dL (8.4-10.2)
--- NOTE | 2018-11-22 08:45 | CP.PCM.PN ---
<Sesar Morin - Last Filed: 11/22/18 08:46> Subjective - Date & Time of Evaluation Date of Evaluation: 11/22/18 Time of Evaluation: 08:42 - Subjective Subjective: General Surgery Progress Note for Dr. Beck 47M seen and evaluated at bedside this morning. No acute events overnight. Complaining of diarrhea. No abdominal pain. Patient tolerating diet and ambulating with cane. Denies f/c, n/v, SOB, CP, or urinary symptoms. Objective - Vital Signs/Intake and Output Vital Signs (last 24 hours): Temp Pulse Resp BP Pulse Ox 98.3 F 104 H 20 125/81 99 11/22/18 07:42 11/22/18 07:42 11/22/18 07:42 11/22/18 07:42 11/22/18 07:42 - Medications Medications: Current Medications Dextrose (Dextrose 50% Inj) 0 ml IV STAT PRN; Protocol PRN Reason: Hypoglycemia Protocol Dextrose (Glutose 15) 0 gm PO ONCE PRN; Protocol PRN Reason: Hypoglycemia Protocol Epoetin Mitchell (Procrit) 8,000 unit IV MWF [facility] Last Admin: 11/21/18 15:52 Dose: Not Given Glipizide (Glucotrol) 10 mg PO BID [facility] Last Admin: 11/21/18 16:14 Dose: Not Given Glucagon (Glucagen Diagnostic Kit) 0 mg IM STAT PRN; Protocol PRN Reason: Hypoglycemia Protocol Heparin Sodium (Porcine) (Heparin) 5,000 units SC Q8 [facility]; Protocol Last Admin: 11/22/18 01:18 Dose: 5,000 units Vancomycin HCl 500 mg/ Sodium (Chloride) 100 mls @ 100 mls/hr IVPB DAILY [facility]; Protocol Last Admin: 11/21/18 09:29 Dose: 100 mls/hr Insulin Human Lispro (Humalog) 0 units SC ACHS [facility]; Protocol Last Admin: 11/21/18 21:35 Dose: Not Given Lactic Acid (Lac-Hydrin 12% Lotion (225 G)) 1 applic TOP DAILY [facility] Last Admin: 11/21/18 09:28 Dose: 1 applic Loperamide HCl (Imodium) 2 mg PO Q6 [facility] Last Admin: 11/22/18 03:14 Dose: 2 mg Metoclopramide HCl (Reglan) 10 mg IVP Q6 [facility] Last Admin: 11/22/18 03:07 Dose: 10 mg Metoprolol Tartrate (Lopressor) 12.5 mg PO BID [facility] Last Admin: 11/21/18 16:15 Dose: Not Given Nifedipine (Procardia Xl) 60 mg PO QPM [facility] Last Admin: 11/21/18 18:07 Dose: Not Given Ondansetron HCl (Zofran Inj) 4 mg IVP Q4 PRN PRN Reason: Nausea/Vomiting Last Admin: 11/20/18 10:38 Dose: 4 mg Pantoprazole Sodium (Protonix Ec Tab) 40 mg PO DAILY [facility] Last Admin: 11/21/18 09:32 Dose: 40 mg Sitagliptin Phosphate (Januvia) 50 mg PO BID [facility] Last Admin: 11/21/18 17:08 Dose: Not Given - Labs Labs: 11/22/18 05:47 11/22/18 05:47 PT 15.1 Seconds (9.8-13.1) H 11/11/18 09:53 INR 1.3 11/11/18 09:53 APTT 30.8 Seconds (25.6-37.1) 11/11/18 15:00 - Constitutional Appears: Well, Non-toxic, No Acute Distress - Head Exam Head Exam: ATRAUMATIC, NORMAL INSPECTION, NORMOCEPHALIC - Eye Exam Eye Exam: EOMI - ENT Exam ENT Exam: Mucous Membranes Dry - Respiratory Exam Respiratory Exam: NORMAL BREATHING PATTERN. absent: Respiratory Distress - Neurological Exam Neurological Exam: Alert, Awake - Psychiatric Exam Psychiatric exam: Normal Affect, Normal Mood - Skin Additional comments: Midline incision erythematous, warm No purlence or active drainage noted Nontender Assessment and Plan - Assessment and Plan (Free Text) Assessment: 47M s/p ex-lap with SB resection [id number] Plan: Continue IV Abx per ID Warm compresses TID Encourage ambulation Monitor diet tolerance AM labs Further recommendations per Dr. Kiran Morin PGY1 <Fernando Beck - Last Filed: 11/22/18 20:11> Objective - Vital Signs/Intake and Output Vital Signs (last 24 hours): Temp Pulse Resp BP Pulse Ox 98.0 F 91 H 18 113/68 95 11/22/18 16:14 11/22/18 17:38 11/22/18 16:14 11/22/18 17:38 11/22/18 16:14 - Medications Medications: Current Medications Dextrose (Dextrose 50% Inj) 0 ml IV STAT PRN; Protocol PRN Reason: Hypoglycemia Protocol Dextrose (Glutose 15) 0 gm PO ONCE PRN; Protocol PRN Reason: Hypoglycemia Protocol Epoetin Mitchell (Procrit) 10,000 unit IV MWF [facility] Glipizide (Glucotrol) 10 mg PO BID [facility] Last Admin: 11/22/18 17:38 Dose: 10 mg Glucagon (Glucagen Diagnostic Kit) 0 mg IM STAT PRN; Protocol PRN Reason: Hypoglycemia Protocol Heparin Sodium (Porcine) (Heparin) 5,000 units SC Q8 [facility]; Protocol Last Admin: 11/22/18 17:37 Dose: 5,000 units Vancomycin HCl 500 mg/ Sodium (Chloride) 100 mls @ 100 mls/hr IVPB DAILY [facility]; Protocol Last Admin: 11/22/18 09:00 Dose: 100 mls/hr Insulin Human Lispro (Humalog) 0 units SC ACHS [facility]; Protocol Last Admin: 11/22/18 17:36 Dose: 4 units Lactic Acid (Lac-Hydrin 12% Lotion (225 G)) 1 applic TOP DAILY [facility] Last Admin: 11/22/18 08:54 Dose: 1 applic Loperamide HCl (Imodium) 2 mg PO Q6 [facility] Last Admin: 11/22/18 17:36 Dose: 2 mg Losartan Potassium (Cozaar) 50 mg PO QPM [facility] Last Admin: 11/22/18 17:38 Dose: 50 mg Metoclopramide HCl (Reglan) 10 mg IVP Q6 [facility] Last Admin: 11/22/18 17:39 Dose: Not Given Metoprolol Tartrate (Lopressor) 12.5 mg PO BID [facility] Last Admin: 11/22/18 17:38 Dose: 12.5 mg Ondansetron HCl (Zofran Inj) 4 mg IVP Q4 PRN PRN Reason: Nausea/Vomiting Last Admin: 11/20/18 10:38 Dose: 4 mg Pantoprazole Sodium (Protonix Ec Tab) 40 mg PO DAILY [facility] Last Admin: 11/22/18 08:55 Dose: 40 mg Sitagliptin Phosphate (Januvia) 25 mg PO DAILY [facility] Vitamin B Complex/Vit C/Folic Acid (Nephro-Elsa) 1 tab PO DAILY [facility] Last Admin: 11/22/18 13:16 Dose: Not Given - Labs Labs: 11/22/18 05:47 11/22/18 05:47 PT 15.1 Seconds (9.8-13.1) H 11/11/18 09:53 INR 1.3 11/11/18 09:53 APTT 30.8 Seconds (25.6-37.1) 11/11/18 15:00 Assessment and Plan - Assessment and Plan (Free Text) Plan: agree with resident note tolerating diet, multiple episodes of watery diarrhea, elevated WBC, afebile abd: soft, NT, obese, periincisional erythema improving, no drainage -cont diet -recommend to dc femoral line -check cdiff if negative increase immodium dose -will trend WBC if continues to be elevated will consider CT A/P r/o collection vs line infection?
--- NOTE | 2018-11-22 08:45 | PN ---
DATE: 11/22/2018 SUBJECTIVE: The patient seen and examined. Interim events noted. Consults noted and appreciated. The patient remains in transitional care unit with telemetry monitoring. Surgical followup and intervention noted and appreciated. The patient is ambulatory. No chest pain. No shortness of breath. No abdominal pain. No diarrhea. PHYSICAL EXAMINATION: GENERAL: The patient is in no acute distress. VITAL SIGNS: Stable. HEART: S1, S2. Normal and regular. LUNGS: Good bilateral air exchange. ABDOMEN: Surgical site has some erythema around it, but no sign of cellulitis or discharge. ____. No guarding. No rigidity. No rebound. Bowel sounds are present and normal. EXTREMITIES: No edema. No calf swelling. No tenderness. No acute ischemia. The patient is status post amputation. CENTRAL NERVOUS SYSTEM: Essentially unchanged. DIAGNOSTIC DATA: Available diagnostic data reviewed. ASSESSMENT AND PLAN: Overall patient's general medical condition is stable. Plan as ordered. Joel Lake MD
[2018-11-22] MEDS: Pantoprazole 40 mg EC Tab PO SCH (08:55)
[2018-11-22] MEDS: Insulin Lispro (humaLOG) 100 Units/ml Inj SC SCH ×4 (08:56→22:30)
--- NOTE | 2018-11-22 12:51 | CP.PCM.PN ---
Subjective - Date & Time of Evaluation Date of Evaluation: 11/22/18 Time of Evaluation: 12:48 - Subjective Subjective: Nephrology Consultation Note: Assessment: Stable s/o small bowel resection Diabetic chronic Kidney Disease (E11.22) Hypertensive Chronic Kidney Disease (I12.0) End stage renal disease (N18.6) dependence on hemodialysis (Z99.2) (MWF) via pc Anemia (D64.9), Hyperphosphatemia (E83.39), Secondary Hyperparathyroidism (E21.1), HTN (I12.0) Plan: Will plan for HD MWF schedule as ordered.Continue with Nephrovite 1 tab/day. PRBC as needed for anemia. Increased YURIY with dialysis as last Hb 9 hold phos binders, last phos level; 2.9 HTN control with meds as ordered, started on losartan 50 instead of nifedipine 60 mg Glycemic control, Dialysis consistent diet. Further work up/management as per primary team Dose meds/antibiotics for ESRD status. Avoid fleets enema/magnesium based laxatives. s/p AVF intervention per vascular surgery 11/05/18 januvia dosed to 25 mg/d due to ESRD status please dose vancomycin post HD (3 times a week) instead of daily Thanks for allowing me to participate in care of your patient. Will follow tony grijalva with you. Please call if any Qs. Dr Rigo Toro Office: [phone] ROS: Cardiovascular: No chest pain. Pulmonary: No shortness of breath Gastrointestinal: no nausea and vomiting Genitourinary: No pain while urinating. Denies blood in urine. All other negative except as mentioned in HPI Physical Examination: General Appearance: Comfortable, in no acute respiratory distress, co-operative . obese Vitals reviewed and noted as below Head; Atraumatic, normocephalic ENT: no ulcers no thrush. Tongue is midline. Oropharynx: no rash or ulcers. EYES: Pupils are equal, round and reactive to light accommodation. Eye muscles and extraocular movement intact. Sclera is anicteric. Neck; supple no lymphadenopathy, no thyromegaly or bruit Lungs: Normal respiratory rate/effort. Breath sounds bilateral equal and clear Heart: Normal rate. s1s2 normal. No rub or gallop. Extremities: no edema. No varicose veins. Rt TMA Neurological: Patient is alert, awake and oriented to person, place and time. No focal deficit. Strength bilateral appropriate and equal Skin: Warm and dry. Normal turgor. has rash RLE. Palpitation: Normal elasticity for age Abdomen: Abdomen is soft. Bowel sounds +. There is no abdominal tenderness, no guarding/rigidity or organomegaly. s/p ex lap Psych: normal insight and normal affect/mood MSK: no joint tenderness or swelling. Digits and nails normal, no deformity : kidney or bladder not palpable Access: Rt AVF maturing. Rt PC Labs/imaging reviewed. Past medical history, past surgical history, family history, social history, allergy reviewed and noted as below Family Hx: no hx of CKD. Non contributory Objective - Vital Signs/Intake and Output Vital Signs (last 24 hours): Temp Pulse Resp BP Pulse Ox 98.9 F 98 H 20 153/77 H 98 11/22/18 12:09 11/22/18 12:09 11/22/18 12:09 11/22/18 12:09 11/22/18 12:09 - Medications Medications: Current Medications Dextrose (Dextrose 50% Inj) 0 ml IV STAT PRN; Protocol PRN Reason: Hypoglycemia Protocol Dextrose (Glutose 15) 0 gm PO ONCE PRN; Protocol PRN Reason: Hypoglycemia Protocol Epoetin Mitchell (Procrit) 10,000 unit IV MWF [facility] Glipizide (Glucotrol) 10 mg PO BID [facility] Last Admin: 11/22/18 08:55 Dose: 10 mg Glucagon (Glucagen Diagnostic Kit) 0 mg IM STAT PRN; Protocol PRN Reason: Hypoglycemia Protocol Heparin Sodium (Porcine) (Heparin) 5,000 units SC Q8 [facility]; Protocol Last Admin: 11/22/18 08:55 Dose: 5,000 units Vancomycin HCl 500 mg/ Sodium (Chloride) 100 mls @ 100 mls/hr IVPB DAILY [facility]; Protocol Last Admin: 11/22/18 09:00 Dose: 100 mls/hr Insulin Human Lispro (Humalog) 0 units SC ACHS [facility]; Protocol Last Admin: 11/22/18 08:56 Dose: 2 units Lactic Acid (Lac-Hydrin 12% Lotion (225 G)) 1 applic TOP DAILY [facility] Last Admin: 11/22/18 08:54 Dose: 1 applic Loperamide HCl (Imodium) 2 mg PO Q6 [facility] Last Admin: 11/22/18 09:01 Dose: 2 mg Losartan Potassium (Cozaar) 50 mg PO QPM [facility] Metoclopramide HCl (Reglan) 10 mg IVP Q6 [facility] Last Admin: 11/22/18 09:01 Dose: Not Given Metoprolol Tartrate (Lopressor) 12.5 mg PO BID [facility] Last Admin: 11/22/18 08:53 Dose: 12.5 mg Ondansetron HCl (Zofran Inj) 4 mg IVP Q4 PRN PRN Reason: Nausea/Vomiting Last Admin: 11/20/18 10:38 Dose: 4 mg Pantoprazole Sodium (Protonix Ec Tab) 40 mg PO DAILY [facility] Last Admin: 11/22/18 08:55 Dose: 40 mg Sitagliptin Phosphate (Januvia) 25 mg PO DAILY [facility] Vitamin B Complex/Vit C/Folic Acid (Nephro-Elsa) 1 tab PO DAILY [facility] - Labs Labs: 11/22/18 05:47 11/22/18 05:47 PT 15.1 Seconds (9.8-13.1) H 11/11/18 09:53 INR 1.3 11/11/18 09:53 APTT 30.8 Seconds (25.6-37.1) 11/11/18 15:00
[2018-11-22] MEDS: Multivitamin Vitamin B Complex (Nephro-Vite) Tab PO SCH (13:16)
[2018-11-23 05:37] LABS: MEAN CELL VOLUME 76.5 fl (80.0-94.0); MEAN CORPUSCULAR HGB CONC 31.4 g/dL (33.0-37.0); RBC 3.75 Mil/uL (4.40-5.90); WHITE BLOOD COUNT 22.2 K/uL (4.8-10.8)
[2018-11-23 06:07] LABS: ALB/GLOB RATIO 0.8 (1.0-2.1); ALBUMIN 2.8 g/dL (3.5-5.0); CALCIUM 7.9 mg/dL (8.4-10.2)
[2018-11-23] MEDS: Insulin Lispro (humaLOG) 100 Units/ml Inj SC SCH ×4 (06:34→22:00)
--- NOTE | 2018-11-23 07:58 | CP.PCM.PN ---
<Sarahi Daniel - Last Filed: 11/23/18 08:08> Subjective - Date & Time of Evaluation Date of Evaluation: 11/23/18 Time of Evaluation: 07:57 - Subjective Subjective: General Surgery - Dr. Kyle Pt S&EKiara RAMIREZ. Pt denies any abdominal pain or pain from incision. he is tolerating regular diet and having multiple episodes of watery diarrhea yesterday (~4 ove r24hrs). He has been OOB in the room to the bathroom. He denies any Nausea/vomiting, Fevers/Chills, SOb or chest pains. Objective - Vital Signs/Intake and Output Vital Signs (last 24 hours): Temp Pulse Resp BP Pulse Ox 98.7 F 100 H 16 131/70 98 11/23/18 04:44 11/23/18 04:44 11/23/18 04:44 11/23/18 04:44 11/23/18 04:44 - Medications Medications: Current Medications Dextrose (Dextrose 50% Inj) 0 ml IV STAT PRN; Protocol PRN Reason: Hypoglycemia Protocol Dextrose (Glutose 15) 0 gm PO ONCE PRN; Protocol PRN Reason: Hypoglycemia Protocol Epoetin Mitchell (Procrit) 10,000 unit IV MWF [facility] Glipizide (Glucotrol) 10 mg PO BID [facility] Last Admin: 11/22/18 17:38 Dose: 10 mg Glucagon (Glucagen Diagnostic Kit) 0 mg IM STAT PRN; Protocol PRN Reason: Hypoglycemia Protocol Heparin Sodium (Porcine) (Heparin) 5,000 units SC Q8 [facility]; Protocol Last Admin: 11/23/18 01:18 Dose: 5,000 units Vancomycin HCl 500 mg/ Sodium (Chloride) 100 mls @ 100 mls/hr IVPB DAILY [facility]; Protocol Last Admin: 11/22/18 09:00 Dose: 100 mls/hr Insulin Human Lispro (Humalog) 0 units SC ACHS [facility]; Protocol Last Admin: 11/23/18 06:34 Dose: Not Given Lactic Acid (Lac-Hydrin 12% Lotion (225 G)) 1 applic TOP DAILY [facility] Last Admin: 11/22/18 08:54 Dose: 1 applic Loperamide HCl (Imodium) 2 mg PO Q6 [facility] Last Admin: 11/23/18 03:04 Dose: 2 mg Losartan Potassium (Cozaar) 50 mg PO QPM [facility] Last Admin: 11/22/18 17:38 Dose: 50 mg Metoclopramide HCl (Reglan) 10 mg IVP Q6 [facility] Last Admin: 11/23/18 03:04 Dose: 10 mg Metoprolol Tartrate (Lopressor) 12.5 mg PO BID [facility] Last Admin: 11/22/18 17:38 Dose: 12.5 mg Ondansetron HCl (Zofran Inj) 4 mg IVP Q4 PRN PRN Reason: Nausea/Vomiting Last Admin: 11/20/18 10:38 Dose: 4 mg Pantoprazole Sodium (Protonix Ec Tab) 40 mg PO DAILY [facility] Last Admin: 11/22/18 08:55 Dose: 40 mg Potassium Chloride (K-Dur 20 Meq Er Tab) 20 meq PO BID [facility] Stop: 11/23/18 17:01 Sitagliptin Phosphate (Januvia) 25 mg PO DAILY [facility] Vitamin B Complex/Vit C/Folic Acid (Nephro-Elsa) 1 tab PO DAILY [facility] Last Admin: 11/22/18 13:16 Dose: Not Given - Labs Labs: 11/23/18 04:29 11/23/18 04:29 PT 15.1 Seconds (9.8-13.1) H 11/11/18 09:53 INR 1.3 11/11/18 09:53 APTT 30.8 Seconds (25.6-37.1) 11/11/18 15:00 - Constitutional Appears: No Acute Distress - Head Exam Head Exam: ATRAUMATIC, NORMAL INSPECTION, NORMOCEPHALIC - Eye Exam Eye Exam: Normal appearance - Respiratory Exam Respiratory Exam: NORMAL BREATHING PATTERN. absent: Respiratory Distress - Cardiovascular Exam Cardiovascular Exam: REGULAR RHYTHM - GI/Abdominal Exam GI & Abdominal Exam: Soft. absent: Distended, Firm, Guarding, Rigid, Tenderness, Rebound Additional comments: mild erythema around staple line, no drainage, no tenderness, incision appears to be healing well - Neurological Exam Neurological Exam: Alert, Oriented x3 - Psychiatric Exam Psychiatric exam: Normal Affect, Normal Mood - Skin Skin Exam: Dry, Intact Assessment and Plan - Assessment and Plan (Free Text) Assessment: 47M s/p ex-lap with SB resection for ischemia, POD#12 Plan: Continue regular diet Continue IV Abx per ID F/U Cdiff Recc. D/C femoral line Encourage OOB/ambulation DW Dr. Kiran Daniel PGY4 <Fernando Beck - Last Filed: 11/23/18 15:16> Subjective - Subjective Subjective: addendum pt tolerating diet, no nausea or vomiting. Reports episodes of diarrhea. WBC 22. PE: gen: NAD, afebrile abd: midline incision with surrounding erythema, some fullness, stapled removed seropurulent drainage wound packed a/p exlap SBR -prn pain control - diet as tolerated -check c diff -if c diff negative restart immodium -f/u wound cultures -recommend to dc right femoral TLC Objective - Vital Signs/Intake and Output Vital Signs (last 24 hours): Temp Pulse Resp BP Pulse Ox 99.2 F 102 H 20 163/92 H 99 11/23/18 12:48 11/23/18 12:48 11/23/18 12:48 11/23/18 12:48 11/23/18 12:48 - Medications Medications: Current Medications Dextrose (Dextrose 50% Inj) 0 ml IV STAT PRN; Protocol PRN Reason: Hypoglycemia Protocol Dextrose (Glutose 15) 0 gm PO ONCE PRN; Protocol PRN Reason: Hypoglycemia Protocol Epoetin Mitchell (Procrit) 10,000 unit IV MWF [facility] Glipizide (Glucotrol) 10 mg PO BID [facility] Last Admin: 11/23/18 09:19 Dose: 10 mg Glucagon (Glucagen Diagnostic Kit) 0 mg IM STAT PRN; Protocol PRN Reason: Hypoglycemia Protocol Heparin Sodium (Porcine) (Heparin) 5,000 units SC Q8 [facility]; Protocol Last Admin: 11/23/18 09:20 Dose: 5,000 units Vancomycin HCl 500 mg/ Sodium (Chloride) 100 mls @ 100 mls/hr IVPB DAILY [facility]; Protocol Last Admin: 11/23/18 09:23 Dose: 100 mls/hr Insulin Human Lispro (Humalog) 0 units SC ACHS [facility]; Protocol Last Admin: 11/23/18 06:34 Dose: Not Given Lactic Acid (Lac-Hydrin 12% Lotion (225 G)) 1 applic TOP DAILY [facility] Last Admin: 11/23/18 09:18 Dose: 1 applic Losartan Potassium (Cozaar) 50 mg PO QPM [facility] Last Admin: 11/22/18 17:38 Dose: 50 mg Metoclopramide HCl (Reglan) 10 mg IVP Q6 [facility] Last Admin: 11/23/18 09:21 Dose: 10 mg Metoprolol Tartrate (Lopressor) 12.5 mg PO BID [facility] Last Admin: 11/23/18 09:18 Dose: 12.5 mg Ondansetron HCl (Zofran Inj) 4 mg IVP Q4 PRN PRN Reason: Nausea/Vomiting Last Admin: 11/20/18 10:38 Dose: 4 mg Pantoprazole Sodium (Protonix Ec Tab) 40 mg PO DAILY [facility] Last Admin: 11/23/18 09:19 Dose: 40 mg Potassium Chloride (K-Dur 20 Meq Er Tab) 20 meq PO BID [facility] Stop: 11/23/18 17:01 Last Admin: 11/23/18 09:19 Dose: 20 meq Sitagliptin Phosphate (Januvia) 25 mg PO DAILY [facility] Last Admin: 11/23/18 09:21 Dose: 25 mg Vitamin B Complex/Vit C/Folic Acid (Nephro-Elsa) 1 tab PO DAILY [facility] Last Admin: 11/23/18 09:18 Dose: 1 tab - Labs Labs: 11/23/18 04:29 11/23/18 04:29 PT 15.1 Seconds (9.8-13.1) H 11/11/18 09:53 INR 1.3 11/11/18 09:53 APTT 30.8 Seconds (25.6-37.1) 11/11/18 15:00
[2018-11-23] MEDS: Multivitamin Vitamin B Complex (Nephro-Vite) Tab PO SCH (09:18)
[2018-11-23] MEDS: Potassium Chloride 20 mEq ER Tab PO SCH ×2 (09:19→16:55)
[2018-11-23] MEDS: Pantoprazole 40 mg EC Tab PO SCH (09:19)
--- NOTE | 2018-11-23 11:25 | PN ---
DATE: 11/23/2018 SUBJECTIVE: Patient was seen and examined. Interim events noted. Consults noted and appreciated. Patient remains in regular progressive care unit with telemetry monitoring. Awake and responsive. Feels okay. Denies any chest pain or shortness of breath. Tolerated food very well. No abdominal pain. PHYSICAL EXAMINATION: GENERAL: Patient is in no acute distress. VITAL SIGNS: Stable. HEART: S1 and S2 normal and regular. LUNGS: Good bilateral air exchange. ABDOMEN: Patient has midline surgical scar with miranda. Surrounding redness is actually looking a little better. No sign of acute abdomen. No guarding. No rigidity. No rebound. Bowel sounds are present and normal. EXTREMITIES: No edema. No calf swelling. No tenderness. No acute ischemia. CENTRAL NERVOUS SYSTEM: Essentially unchanged. DIAGNOSTIC DATA: Available diagnostic data reviewed. Telemetry monitoring does not reveal significant arrhythmia. WBC count although is elevated to 32. ASSESSMENT AND PLAN: Overall patient seems to be clinically better, but white count of 32 is definitely worrisome and will be monitored. Plan as ordered. Joel Lake MD
--- NOTE | 2018-11-23 11:29 | CP.PCM.PN ---
Subjective - Date & Time of Evaluation Date of Evaluation: 11/23/18 Time of Evaluation: 11:29 - Subjective Subjective: Nephrology Consultation Note: Assessment: Stable s/o small bowel resection Diabetic chronic Kidney Disease (E11.22) Hypertensive Chronic Kidney Disease (I12.0) End stage renal disease (N18.6) dependence on hemodialysis (Z99.2) (MWF) via pc Anemia (D64.9), Hyperphosphatemia (E83.39), Secondary Hyperparathyroidism (E21.1), HTN (I12.0) Plan: Will plan for HD MWF schedule as ordered.Continue with Nephrovite 1 tab/day. PRBC as needed for anemia. Increased YURIY with dialysis as last Hb 9 hold phos binders, last phos level; 2.9 HTN control with meds as ordered, started on losartan 50 instead of nifedipine 60 mg Glycemic control, Dialysis consistent diet. Further work up/management as per primary team Dose meds/antibiotics for ESRD status. Avoid fleets enema/magnesium based laxatives. s/p AVF intervention per vascular surgery 11/05/18 januvia dosed to 25 mg/d due to ESRD status please dose vancomycin post HD (3 times a week) instead of daily Thanks for allowing me to participate in care of your patient. Will follow tony grijalva with you. Please call if any Qs. Dr Rigo Toro Office: [phone] ROS: Cardiovascular: No chest pain. Pulmonary: No shortness of breath Gastrointestinal: no nausea and vomiting Genitourinary: No pain while urinating. Denies blood in urine. All other negative except as mentioned in HPI Physical Examination: General Appearance: Comfortable, in no acute respiratory distress, co-operative . obese Vitals reviewed and noted as below Head; Atraumatic, normocephalic ENT: no ulcers no thrush. Tongue is midline. Oropharynx: no rash or ulcers. EYES: Pupils are equal, round and reactive to light accommodation. Eye muscles and extraocular movement intact. Sclera is anicteric. Neck; supple no lymphadenopathy, no thyromegaly or bruit Lungs: Normal respiratory rate/effort. Breath sounds bilateral equal and clear Heart: Normal rate. s1s2 normal. No rub or gallop. Extremities: no edema. No varicose veins. Rt TMA Neurological: Patient is alert, awake and oriented to person, place and time. No focal deficit. Strength bilateral appropriate and equal Skin: Warm and dry. Normal turgor. has rash RLE. Palpitation: Normal elasticity for age Abdomen: Abdomen is soft. Bowel sounds +. There is no abdominal tenderness, no guarding/rigidity or organomegaly. s/p ex lap Psych: normal insight and normal affect/mood MSK: no joint tenderness or swelling. Digits and nails normal, no deformity : kidney or bladder not palpable Access: Rt AVF maturing. Rt PC Labs/imaging reviewed. Past medical history, past surgical history, family history, social history, allergy reviewed and noted as below Family Hx: no hx of CKD. Non contributory Objective - Vital Signs/Intake and Output Vital Signs (last 24 hours): Temp Pulse Resp BP Pulse Ox 99.1 F 101 H 18 132/73 100 11/23/18 08:00 11/23/18 09:18 11/23/18 08:00 11/23/18 09:18 11/23/18 08:00 - Medications Medications: Current Medications Dextrose (Dextrose 50% Inj) 0 ml IV STAT PRN; Protocol PRN Reason: Hypoglycemia Protocol Dextrose (Glutose 15) 0 gm PO ONCE PRN; Protocol PRN Reason: Hypoglycemia Protocol Epoetin Mitchell (Procrit) 10,000 unit IV MWF [facility] Glipizide (Glucotrol) 10 mg PO BID [facility] Last Admin: 11/23/18 09:19 Dose: 10 mg Glucagon (Glucagen Diagnostic Kit) 0 mg IM STAT PRN; Protocol PRN Reason: Hypoglycemia Protocol Heparin Sodium (Porcine) (Heparin) 5,000 units SC Q8 [facility]; Protocol Last Admin: 11/23/18 09:20 Dose: 5,000 units Vancomycin HCl 500 mg/ Sodium (Chloride) 100 mls @ 100 mls/hr IVPB DAILY [facility]; Protocol Last Admin: 11/23/18 09:23 Dose: 100 mls/hr Insulin Human Lispro (Humalog) 0 units SC ACHS [facility]; Protocol Last Admin: 11/23/18 06:34 Dose: Not Given Lactic Acid (Lac-Hydrin 12% Lotion (225 G)) 1 applic TOP DAILY [facility] Last Admin: 11/23/18 09:18 Dose: 1 applic Losartan Potassium (Cozaar) 50 mg PO QPM [facility] Last Admin: 11/22/18 17:38 Dose: 50 mg Metoclopramide HCl (Reglan) 10 mg IVP Q6 [facility] Last Admin: 11/23/18 09:21 Dose: 10 mg Metoprolol Tartrate (Lopressor) 12.5 mg PO BID [facility] Last Admin: 11/23/18 09:18 Dose: 12.5 mg Ondansetron HCl (Zofran Inj) 4 mg IVP Q4 PRN PRN Reason: Nausea/Vomiting Last Admin: 11/20/18 10:38 Dose: 4 mg Pantoprazole Sodium (Protonix Ec Tab) 40 mg PO DAILY [facility] Last Admin: 11/23/18 09:19 Dose: 40 mg Potassium Chloride (K-Dur 20 Meq Er Tab) 20 meq PO BID [facility] Stop: 11/23/18 17:01 Last Admin: 11/23/18 09:19 Dose: 20 meq Sitagliptin Phosphate (Januvia) 25 mg PO DAILY [facility] Last Admin: 11/23/18 09:21 Dose: 25 mg Vitamin B Complex/Vit C/Folic Acid (Nephro-Elsa) 1 tab PO DAILY [facility] Last Admin: 11/23/18 09:18 Dose: 1 tab - Labs Labs: 11/23/18 04:29 11/23/18 04:29 PT 15.1 Seconds (9.8-13.1) H 11/11/18 09:53 INR 1.3 11/11/18 09:53 APTT 30.8 Seconds (25.6-37.1) 11/11/18 15:00
[2018-11-24 05:23] LABS: HEMOGLOBIN 8.6 g/dL (12.0-18.0); MEAN CELL VOLUME 75.7 fl (80.0-94.0); MEAN CORPUSCULAR HEMOGLOBIN 24.1 pg (27.0-31.0); MEAN CORPUSCULAR HGB CONC 31.8 g/dL (33.0-37.0); RBC 3.58 Mil/uL (4.40-5.90); RED CELL DISTRIBUTION WIDTH 20.6 % (11.5-14.5)
[2018-11-24 05:42] LABS: ALB/GLOB RATIO 0.8 (1.0-2.1); ALBUMIN 2.7 g/dL (3.5-5.0); CALCIUM 7.7 mg/dL (8.4-10.2)
--- NOTE | 2018-11-24 08:01 | CP.PCM.PN ---
<Sesar Morin - Last Filed: 11/24/18 07:59> Subjective - Date & Time of Evaluation Date of Evaluation: 11/24/18 Time of Evaluation: 07:59 - Subjective Subjective: General Surgery Progress Note for Dr. Beck 47M seen and evaluated at bedside this morning. Midline miranda and left arm miranda removed today. No acute events overnight. Continues to have diarrhea. Otherwise no complaints. Patient ambulates to the bathroom. Denies f/c, n/v, SOB, CP, or urinary symptoms. Objective - Vital Signs/Intake and Output Vital Signs (last 24 hours): Temp Pulse Resp BP Pulse Ox 98 F 102 H 20 112/75 96 11/24/18 04:42 11/24/18 04:42 11/24/18 04:42 11/24/18 04:42 11/24/18 04:42 - Medications Medications: Current Medications Dextrose (Dextrose 50% Inj) 0 ml IV STAT PRN; Protocol PRN Reason: Hypoglycemia Protocol Dextrose (Glutose 15) 0 gm PO ONCE PRN; Protocol PRN Reason: Hypoglycemia Protocol Epoetin Mitchell (Procrit) 10,000 unit IV MWF [facility] Glipizide (Glucotrol) 10 mg PO BID [facility] Last Admin: 11/23/18 16:55 Dose: 10 mg Glucagon (Glucagen Diagnostic Kit) 0 mg IM STAT PRN; Protocol PRN Reason: Hypoglycemia Protocol Heparin Sodium (Porcine) (Heparin) 5,000 units SC Q8 [facility]; Protocol Last Admin: 11/24/18 00:30 Dose: 5,000 units Vancomycin HCl 500 mg/ Sodium (Chloride) 100 mls @ 100 mls/hr IVPB DAILY [facility]; Protocol Last Admin: 11/23/18 09:23 Dose: 100 mls/hr Insulin Human Lispro (Humalog) 0 units SC ACHS [facility]; Protocol Last Admin: 11/23/18 22:00 Dose: Not Given Lactic Acid (Lac-Hydrin 12% Lotion (225 G)) 1 applic TOP DAILY [facility] Last Admin: 11/23/18 09:18 Dose: 1 applic Loperamide HCl (Imodium) 2 mg PO Q6 PRN PRN Reason: Diarrhea Losartan Potassium (Cozaar) 50 mg PO QPM [facility] Last Admin: 11/23/18 17:00 Dose: 50 mg Metoclopramide HCl (Reglan) 10 mg IVP Q6 [facility] Last Admin: 11/24/18 04:23 Dose: 10 mg Metoprolol Tartrate (Lopressor) 12.5 mg PO BID [facility] Last Admin: 11/23/18 16:56 Dose: 12.5 mg Ondansetron HCl (Zofran Inj) 4 mg IVP Q4 PRN PRN Reason: Nausea/Vomiting Last Admin: 11/20/18 10:38 Dose: 4 mg Pantoprazole Sodium (Protonix Ec Tab) 40 mg PO DAILY [facility] Last Admin: 11/23/18 09:19 Dose: 40 mg Sitagliptin Phosphate (Januvia) 25 mg PO DAILY [facility] Last Admin: 11/23/18 09:21 Dose: 25 mg Vitamin B Complex/Vit C/Folic Acid (Nephro-Elsa) 1 tab PO DAILY [facility] Last Admin: 11/23/18 09:18 Dose: 1 tab - Labs Labs: 11/24/18 04:30 11/24/18 04:30 PT 15.1 Seconds (9.8-13.1) H 11/11/18 09:53 INR 1.3 11/11/18 09:53 APTT 30.8 Seconds (25.6-37.1) 11/11/18 15:00 - Constitutional Appears: Well, Non-toxic, No Acute Distress - Head Exam Head Exam: ATRAUMATIC, NORMAL INSPECTION, NORMOCEPHALIC - Eye Exam Eye Exam: EOMI - ENT Exam ENT Exam: Mucous Membranes Moist - Respiratory Exam Respiratory Exam: NORMAL BREATHING PATTERN. absent: Respiratory Distress - Cardiovascular Exam Cardiovascular Exam: REGULAR RHYTHM - GI/Abdominal Exam GI & Abdominal Exam: Soft, Normal Bowel Sounds. absent: Distended, Tenderness - Neurological Exam Neurological Exam: Alert, Awake, Oriented x3 - Psychiatric Exam Psychiatric exam: Normal Affect, Normal Mood - Skin Additional comments: midline incision erythematous with purlent drainage noted Packing and dressing changed this AM Assessment and Plan - Assessment and Plan (Free Text) Assessment: 47M s/p ex-lap with bowel resection POD13 Plan: Patient to get PICC line for venous access Will remove TLC once he has peripheral access IV Abx Continue to monitor midline incision with packing and dressing changes F/u wound culture AM labs Encourage ambulation Further recommendations per Dr. Kiran Morin PGY1 <Dylan Cormier - Last Filed: 11/24/18 11:20> Subjective - Date & Time of Evaluation Time of Evaluation: 10:30 - Subjective Subjective: Patient was seen and examined at the bedside. Agree with resident's note above. Objective - Vital Signs/Intake and Output Vital Signs (last 24 hours): Temp Pulse Resp BP Pulse Ox 98.9 F 89 18 119/78 95 11/24/18 07:59 11/24/18 07:59 11/24/18 07:59 11/24/18 07:59 11/24/18 07:59 - Medications Medications: Current Medications Dextrose (Dextrose 50% Inj) 0 ml IV STAT PRN; Protocol PRN Reason: Hypoglycemia Protocol Dextrose (Glutose 15) 0 gm PO ONCE PRN; Protocol PRN Reason: Hypoglycemia Protocol Epoetin Mitchell (Procrit) 10,000 unit IV MWF [facility] Last Admin: 11/24/18 09:18 Dose: 10,000 unit Glipizide (Glucotrol) 10 mg PO BID [facility] Last Admin: 11/24/18 09:14 Dose: 10 mg Glucagon (Glucagen Diagnostic Kit) 0 mg IM STAT PRN; Protocol PRN Reason: Hypoglycemia Protocol Heparin Sodium (Porcine) (Heparin) 5,000 units SC Q8 [facility]; Protocol Last Admin: 11/24/18 09:15 Dose: 5,000 units Vancomycin HCl 500 mg/ Sodium (Chloride) 100 mls @ 100 mls/hr IVPB DAILY [facility]; Protocol Last Admin: 11/24/18 09:19 Dose: 100 mls/hr Insulin Human Lispro (Humalog) 0 units SC ACHS [facility]; Protocol Last Admin: 11/24/18 09:15 Dose: Not Given Lactic Acid (Lac-Hydrin 12% Lotion (225 G)) 1 applic TOP DAILY [facility] Last Admin: 11/24/18 09:16 Dose: 1 applic Loperamide HCl (Imodium) 2 mg PO Q6 PRN PRN Reason: Diarrhea Losartan Potassium (Cozaar) 50 mg PO QPM [facility] Last Admin: 11/23/18 17:00 Dose: 50 mg Metoclopramide HCl (Reglan) 10 mg IVP Q6 [facility] Last Admin: 11/24/18 04:23 Dose: 10 mg Metoprolol Tartrate (Lopressor) 12.5 mg PO BID [facility] Last Admin: 11/24/18 09:16 Dose: Not Given Ondansetron HCl (Zofran Inj) 4 mg IVP Q4 PRN PRN Reason: Nausea/Vomiting Last Admin: 11/20/18 10:38 Dose: 4 mg Pantoprazole Sodium (Protonix Ec Tab) 40 mg PO DAILY [facility] Last Admin: 11/24/18 09:19 Dose: Not Given Sitagliptin Phosphate (Januvia) 25 mg PO DAILY [facility] Last Admin: 11/24/18 09:16 Dose: 25 mg Vitamin B Complex/Vit C/Folic Acid (Nephro-Elsa) 1 tab PO DAILY [facility] Last Admin: 11/24/18 09:16 Dose: 1 tab - Labs Labs: 11/24/18 04:30 11/24/18 04:30 PT 15.1 Seconds (9.8-13.1) H 11/11/18 09:53 INR 1.3 11/11/18 09:53 APTT 30.8 Seconds (25.6-37.1) 11/11/18 15:00 - GI/Abdominal Exam Additional comments: soft, NT, ND, BS+, no rebound, no guarding, incision clean, some erythema, minimal drainage Assessment and Plan - Assessment and Plan (Free Text) Plan: - Continue antibiotics - Will obtain CT scan of abd/pelvis with po contrast to r/o intra-abdominal collection - repeat labs in am - Will follow
[2018-11-24] MEDS ORDERED: Potassium Chloride 20 mEq ER Tab PO ONE (08:08)
[2018-11-24] MEDS: Insulin Lispro (humaLOG) 100 Units/ml Inj SC SCH ×4 (09:15→21:22)
[2018-11-24] MEDS: Multivitamin Vitamin B Complex (Nephro-Vite) Tab PO SCH (09:16)
[2018-11-24] MEDS: EPOETIN ALFA 10,000 UNIT/ML ML IV SCH (09:18)
[2018-11-24] MEDS: Pantoprazole 40 mg EC Tab PO SCH (09:19)
[2018-11-24] MEDS ORDERED: Barium Sulfate Susp 2.1% w/v, 2.0% w/w 450 mL Bottle PO ONE (10:57)
[2018-11-24] MEDS ORDERED: Magnesium Sulfate 2 gm/50 ml 2 GM/50 ML BAG IVPB ONE (11:29)
[2018-11-24] MEDS ORDERED: Iohexol 240 (50 ml) PO ONE (13:16)
--- NOTE | 2018-11-24 14:06 | PN ---
DATE: 11/24/2018 SUBJECTIVE: The patient seen and examined. Interim events noted. Consults noted and appreciated. The patient remains in the progressive care unit and telemetry monitoring. The patient is okay. He denies any specific complaints. He now has abdominal pain. No chest pain. No shortness of breath. Tolerating food very well. PHYSICAL EXAMINATION: GENERAL: The patient is in no acute distress. VITAL SIGNS: Stable. HEENT: S1 and S2, normal and regular. LUNGS: Good bilateral air exchange. ABDOMEN: Soft, nontender. No sign of acute abdomen. No guarding, no rigidity, no rebound. Midline surgical site has some erythema around it and a little scab covered opening at the lower end. No acute sign of cellulitis. EXTREMITIES: No edema. No calf swelling. No tenderness. 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 DIAGNOSTIC DATA: Available diagnostic data reviewed. ASSESSMENT AND PLAN: Overall, the patient's general medical condition is stable. Plan as ordered. Joel Lake MD
--- NOTE | 2018-11-24 14:17 | CP.PCM.PN ---
Subjective - Date & Time of Evaluation Date of Evaluation: 11/24/18 Time of Evaluation: 14:15 - Subjective Subjective: Nephrology Consultation Note: Assessment: Stable s/o small bowel resection Diabetic chronic Kidney Disease (E11.22) Hypertensive Chronic Kidney Disease (I12.0) End stage renal disease (N18.6) dependence on hemodialysis (Z99.2) (MWF) via pc Anemia (D64.9), Hyperphosphatemia (E83.39), Secondary Hyperparathyroidism (E21.1), HTN (I12.0) Plan: Will plan for HD MWF schedule as ordered.Continue with Nephrovite 1 tab/day. PRBC as needed for anemia. Increased YURIY with dialysis as last Hb 8.6 off phos binders, last phos level; 2.9>3.7 HTN control with meds as ordered, started on losartan 50 Glycemic control, Dialysis consistent diet. Further work up/management as per primary team Dose meds/antibiotics for ESRD status. Avoid fleets enema/magnesium based laxatives. januvia dosed to 25 mg/d due to ESRD status please dose vancomycin post HD (3 times a week) instead of daily supplemented Mag vascualr surgery eval for removal of miranda from AVF revision. s/p AVF intervention by vascular surgery 11/05/18 Thanks for allowing me to participate in care of your patient. Will follow patient with you. Please call if any Qs. had d/w team Dr Rigo Toro Office: [phone] ROS: Cardiovascular: No chest pain. Pulmonary: No shortness of breath Gastrointestinal: no nausea and vomiting Genitourinary: No pain while urinating. Denies blood in urine. All other negative except as mentioned in HPI Physical Examination: seen on HD General Appearance: Comfortable, in no acute respiratory distress, co-operative . obese Vitals reviewed and noted as below Head; Atraumatic, normocephalic ENT: no ulcers no thrush. Tongue is midline. Oropharynx: no rash or ulcers. EYES: Pupils are equal, round and reactive to light accommodation. Eye muscles and extraocular movement intact. Sclera is anicteric. Neck; supple no lymphadenopathy, no thyromegaly or bruit Lungs: Normal respiratory rate/effort. Breath sounds bilateral equal and clear Heart: Normal rate. s1s2 normal. No rub or gallop. Extremities: no edema. No varicose veins. Rt TMA Neurological: Patient is alert, awake and oriented to person, place and time. No focal deficit. Strength bilateral appropriate and equal Skin: Warm and dry. Normal turgor. has rash RLE. Palpitation: Normal elasticity for age Abdomen: Abdomen is soft. Bowel sounds +. There is no abdominal tenderness, no guarding/rigidity or organomegaly. s/p ex lap Psych: normal insight and normal affect/mood MSK: no joint tenderness or swelling. Digits and nails normal, no deformity : kidney or bladder not palpable Access: Rt AVF maturing. Rt PC Labs/imaging reviewed. Past medical history, past surgical history, family history, social history, allergy reviewed and noted as below Family Hx: no hx of CKD. Non contributory Objective - Vital Signs/Intake and Output Vital Signs (last 24 hours): Temp Pulse Resp BP Pulse Ox 98.8 F 100 H 18 124/78 97 11/24/18 12:07 11/24/18 12:07 11/24/18 12:07 11/24/18 12:07 11/24/18 12:07 - Medications Medications: Current Medications Dextrose (Dextrose 50% Inj) 0 ml IV STAT PRN; Protocol PRN Reason: Hypoglycemia Protocol Dextrose (Glutose 15) 0 gm PO ONCE PRN; Protocol PRN Reason: Hypoglycemia Protocol Epoetin Mitchell (Procrit) 10,000 [place] [facility] [place] Admin: 11/24/18 09:18 Dose: 10,000 unit Glipizide (Glucotrol) 10 mg PO BID [facility] Last Admin: 11/24/18 09:14 Dose: 10 mg Glucagon (Glucagen Diagnostic Kit) 0 mg IM STAT PRN; Protocol PRN Reason: Hypoglycemia Protocol Heparin Sodium (Porcine) (Heparin) 5,000 units SC Q8 [facility]; Protocol Last Admin: 11/24/18 09:15 Dose: 5,000 units Vancomycin HCl 1 gm/ Sodium (Chloride) 250 mls @ 125 mls/hr [place] [facility] [place] Prot [place]col Insulin Human Lispro (Humalog) 0 units SC ACHS [facility]; Protocol Last Admin: 11/24/18 11:51 Dose: 2 units Lactic Acid (Lac-Hydrin 12% Lotion (225 G)) 1 applic TOP DAILY [facility] Last Admin: 11/24/18 09:16 Dose: 1 applic Loperamide HCl (Imodium) 2 mg PO Q6 PRN PRN Reason: Diarrhea Losartan Potassium (Cozaar) 50 mg PO QPM [facility] Last Admin: 11/23/18 17:00 Dose: 50 mg Metoclopramide HCl (Reglan) 10 mg IVP Q6 [facility] Last Admin: 11/24/18 11:52 Dose: Not Given Metoprolol Tartrate (Lopressor) 12.5 mg PO BID [facility] Last Admin: 11/24/18 09:16 Dose: Not Given Ondansetron HCl (Zofran Inj) 4 mg IVP Q4 PRN PRN Reason: Nausea/Vomiting Last Admin: 11/20/18 10:38 Dose: 4 mg Pantoprazole Sodium (Protonix Ec Tab) 40 mg PO DAILY [facility] Last Admin: 11/24/18 09:19 Dose: Not Given Sitagliptin Phosphate (Januvia) 25 mg PO DAILY [facility] Last Admin: 11/24/18 09:16 Dose: 25 mg Vitamin B Complex/Vit C/Folic Acid (Nephro-Elsa) 1 tab PO DAILY [facility] Last Admin: 11/24/18 09:16 Dose: 1 tab - Labs Labs: 11/24/18 04:30 11/24/18 04:30 PT 15.1 Seconds (9.8-13.1) H 11/11/18 09:53 INR 1.3 11/11/18 09:53 APTT 30.8 Seconds (25.6-37.1) 11/11/18 15:00
--- NOTE | 2018-11-24 17:52 | CT ---
Date of service: 11/24/2018 PROCEDURE: CT Abdomen and Pelvis with contrast HISTORY: r/o abscess, fluid collection COMPARISON: Noncontrast abdomen pelvis CT 11/11/2018. TECHNIQUE: Helical CT of the abdomen and pelvis was performed without oral or intravenous contrast as per referring physician request. Coronal and sagittal reformats were generated Contrast dose: None Radiation dose: Total exam DLP = 923.42 mGy-cm. This CT exam was performed using one or more of the following dose reduction techniques: Automated exposure control, adjustment of the mA and/or kV according to patient size, and/or use of iterative reconstruction technique. FINDINGS: LOWER THORAX: Small hiatal hernia identified. LIVER: Prior pneumobilia pattern has resolved. Hepatic density unremarkable in this unenhanced CT. GALLBLADDER AND BILE DUCTS: Contracted otherwise unremarkable appearing gallbladder. PANCREAS: Unremarkable. No gross lesion or ductal dilatation. SPLEEN: Unremarkable. ADRENALS: Unremarkable. No mass. KIDNEYS AND URETERS: Bilateral perinephric streaky changes reiterated. No hydronephrosis. No solid mass. VASCULATURE: Nonaneurysmal abdominal aortic calcific atherosclerotic changes are identified. Additional similar calcified atherosclerotic changes seen related to the internal iliac arteries. Superior mesenteric venous gas pattern resolved. BOWEL: Prior bowel obstruction is relieved oral contrast opacifying essentially the entire colon and much of the small bowel as well. Postoperative changes seen within than apparent small-bowel loop in the right lower quadrant. Limited postoperative changes seen in the mesentery locally as well as the anterior abdominal wall at the periumbilical space with trace gas identified at the infraumbilical incision in potentially trace debris which could reflect a developing abscess or limited phlegmon. This is a small volume measuring 1.8 x 1.8 x 7.7 cm. Clinically correlate. No peritoneal abscess appreciable. No ascites appreciable. APPENDIX: No definite CT pattern appendicitis. The appendix is not definitively identified. PERITONEUM: See bowel section above. LYMPH NODES: Unremarkable. No enlarged lymph nodes. BLADDER: Unremarkable. REPRODUCTIVE: Partial calcification of the bilateral Vasa deferentia. BONES: No acute fracture. OTHER FINDINGS: None. IMPRESSION: 1. Status post surgical decompression of prior small-bowel obstruction with right lower quadrant chain sutures identified within a likely distal ileal small bowel loop. Oral contrast identified throughout the large bowel and much of the small bowel. Limited postoperative mesenteric changes are identified but no intra peritoneal abscess or ascites appreciable. 2. Potential developing incisional abscess or phlegmon at the infraumbilical midline abdominal wall incision. Clinically correlate further. 3. Resolution of superior mesenteric venous and intrahepatic portal venous gas as well as pneumatosis intestinalis. 4. Other lesser findings as discussed above.
[2018-11-25 05:31] LABS: MEAN CELL VOLUME 75.4 fl (80.0-94.0); MEAN CORPUSCULAR HEMOGLOBIN 24.2 pg (27.0-31.0); MEAN CORPUSCULAR HGB CONC 32.1 g/dL (33.0-37.0); RBC 3.72 Mil/uL (4.40-5.90); RED CELL DISTRIBUTION WIDTH 20.4 % (11.5-14.5); WHITE BLOOD COUNT 12.8 K/uL (4.8-10.8)
[2018-11-25 06:11] LABS: ALB/GLOB RATIO 0.8 (1.0-2.1); ALBUMIN 2.7 g/dL (3.5-5.0); CALCIUM 7.8 mg/dL (8.4-10.2)
--- NOTE | 2018-11-25 06:13 | CP.PCM.PN ---
Subjective - Date & Time of Evaluation Date of Evaluation: 11/25/18 Time of Evaluation: 06:10 - Subjective Subjective: SURGERY NOTE FOR DR. MARTIN 47M seen and examined at bedside. No acute events overnight. Patient states abdominal pain is minimal, he denies any nausea or vomiting, he denies any fevers or chills. He has been tolerating regular diet, he had been having bowel movements. States diarrhea is slightly improving. Midline abdominal incision continues to have purulent drainage. Objective - Vital Signs/Intake and Output Vital Signs (last 24 hours): Temp Pulse Resp BP Pulse Ox 97.3 F L 86 18 100/64 98 11/25/18 00:12 11/25/18 00:12 11/25/18 00:12 11/25/18 00:12 11/25/18 00:12 Intake and Output: 11/24/18 11/25/18 18:59 06:59 Intake Total 1650 Output Total 2000 Balance -350 - Medications Medications: Current Medications Dextrose (Dextrose 50% Inj) 0 ml IV STAT PRN; Protocol PRN Reason: Hypoglycemia Protocol Dextrose (Glutose 15) 0 gm PO ONCE PRN; Protocol PRN Reason: Hypoglycemia Protocol Epoetin Mitchell (Procrit) 10,000 unit IV MWF [facility] Last Admin: 11/24/18 09:18 Dose: 10,000 unit Glipizide (Glucotrol) 10 mg PO BID [facility] Last Admin: 11/24/18 17:23 Dose: 10 mg Glucagon (Glucagen Diagnostic Kit) 0 mg IM STAT PRN; Protocol PRN Reason: Hypoglycemia Protocol Heparin Sodium (Porcine) (Heparin) 5,000 units SC Q8 [facility]; Protocol Last Admin: 11/25/18 00:58 Dose: 5,000 units Vancomycin HCl 1 gm/ Sodium (Chloride) 250 mls @ 125 mls/hr IVPB MWF [facility]; Protocol Insulin Human Lispro (Humalog) 0 units SC ACHS [facility]; Protocol Last Admin: 11/24/18 21:22 Dose: Not Given Lactic Acid (Lac-Hydrin 12% Lotion (225 G)) 1 applic TOP DAILY [facility] Last Admin: 11/24/18 09:16 Dose: 1 applic Loperamide HCl (Imodium) 2 mg PO Q6 PRN PRN Reason: Diarrhea Losartan Potassium (Cozaar) 50 mg PO QPM [facility] Last Admin: 11/24/18 17:22 Dose: 50 mg Metoclopramide HCl (Reglan) 10 mg IVP Q6 [facility] Last Admin: 11/25/18 05:09 Dose: 10 mg Metoprolol Tartrate (Lopressor) 12.5 mg PO BID [facility] Last Admin: 11/24/18 17:28 Dose: 12.5 mg Ondansetron HCl (Zofran Inj) 4 mg IVP Q4 PRN PRN Reason: Nausea/Vomiting Last Admin: 11/20/18 10:38 Dose: 4 mg Pantoprazole Sodium (Protonix Ec Tab) 40 mg PO DAILY [facility] Last Admin: 11/24/18 09:19 Dose: Not Given Sitagliptin Phosphate (Januvia) 25 mg PO DAILY [facility] Last Admin: 11/24/18 09:16 Dose: 25 mg Vitamin B Complex/Vit C/Folic Acid (Nephro-Elsa) 1 tab PO DAILY [facility] Last Admin: 11/24/18 09:16 Dose: 1 tab - Labs Labs: 11/25/18 05:13 11/24/18 04:30 PT 15.1 Seconds (9.8-13.1) H 11/11/18 09:53 INR 1.3 11/11/18 09:53 APTT 30.8 Seconds (25.6-37.1) 11/11/18 15:00 - Constitutional Appears: Non-toxic, No Acute Distress - Respiratory Exam Respiratory Exam: Clear to Ausculation Bilateral, NORMAL BREATHING PATTERN - Cardiovascular Exam Cardiovascular Exam: REGULAR RHYTHM, +S1, +S2 - GI/Abdominal Exam GI & Abdominal Exam: Soft. absent: Distended, Firm, Guarding, Rigid, Rebound Additional comments: midline incision with packing , has purulent output, non-malodorous, All miranda have been removed - Extremities Exam Extremities Exam: absent: Pedal Edema, Tenderness - Neurological Exam Neurological Exam: Alert, Awake Assessment and Plan - Assessment and Plan (Free Text) Assessment: 47M s/p significant small bowel resection with SB-SB anastomosis for ischemic bowel POD#14, now with incision wound infection CT scan: no discernable intraperitoneal fluid collection, no intraperitoneal abscess formation Plan: - continue regular diet - daily packing changes - continue antibiotics - await blood culture - await wound culture - DC TLC once PICC in place - Further recs discuss with Dr. Casa Hodges, PGY3
[2018-11-25] MEDS: Insulin Lispro (humaLOG) 100 Units/ml Inj SC SCH ×4 (08:10→22:32)
[2018-11-25] MEDS: Pantoprazole 40 mg EC Tab PO SCH (09:34)
[2018-11-25] MEDS: Multivitamin Vitamin B Complex (Nephro-Vite) Tab PO SCH (09:35)
--- NOTE | 2018-11-25 13:54 | CP.PCM.PN ---
Subjective - Date & Time of Evaluation Date of Evaluation: 11/25/18 Time of Evaluation: 11:00 - Subjective Subjective: Nephrology Consultation Note: Assessment: Stable s/o small bowel resection Diabetic chronic Kidney Disease (E11.22) Hypertensive Chronic Kidney Disease (I12.0) End stage renal disease (N18.6) dependence on hemodialysis (Z99.2) (MWF) via pc Anemia (D64.9), Hyperphosphatemia (E83.39), Secondary Hyperparathyroidism (E21.1), HTN (I12.0) Plan: Will plan for HD MWF schedule as ordered.Continue with Nephrovite 1 tab/day. PRBC as needed for anemia. Increased YURIY with dialysis as last Hb 8.6 off phos binders, last phos level; 2.9>3.7 HTN control with meds as ordered, started on losartan 50 Glycemic control, Dialysis consistent diet. Further work up/management as per primary team Dose meds/antibiotics for ESRD status. Avoid fleets enema/magnesium based laxatives. surgery following Thanks for allowing me to participate in care of your patient. Will follow patient with you. Please call if any Qs. had d/w team Dr Rigo Toro Office: [phone] ROS: Cardiovascular: No chest pain. Pulmonary: No shortness of breath Gastrointestinal: no nausea and vomiting Genitourinary: No pain while urinating. Denies blood in urine. All other negative except as mentioned in HPI Physical Examination: seen on HD General Appearance: Comfortable, in no acute respiratory distress, co-operative . obese Vitals reviewed and noted as below Head; Atraumatic, normocephalic ENT: no ulcers no thrush. Tongue is midline. Oropharynx: no rash or ulcers. EYES: Pupils are equal, round and reactive to light accommodation. Eye muscles and extraocular movement intact. Sclera is anicteric. Neck; supple no lymphadenopathy, no thyromegaly or bruit Lungs: Normal respiratory rate/effort. Breath sounds bilateral equal and clear Heart: Normal rate. s1s2 normal. No rub or gallop. Extremities: no edema. No varicose veins. Rt TMA Neurological: Patient is alert, awake and oriented to person, place and time. No focal deficit. Strength bilateral appropriate and equal Skin: Warm and dry. Normal turgor. has rash RLE. Palpitation: Normal elasticity for age Abdomen: Abdomen is soft. Bowel sounds +. There is no abdominal tenderness, no guarding/rigidity or organomegaly. s/p ex lap. has incisional drainage Psych: normal insight and normal affect/mood MSK: no joint tenderness or swelling. Digits and nails normal, no deformity : kidney or bladder not palpable Access: Rt AVF maturing. has PC Labs/imaging reviewed. Past medical history, past surgical history, family history, social history, allergy reviewed and noted as below Family Hx: no hx of CKD. Non contributory Objective - Vital Signs/Intake and Output Vital Signs (last 24 hours): Temp Pulse Resp BP Pulse Ox 98.5 F 84 20 137/76 98 11/25/18 12:34 11/25/18 12:34 11/25/18 12:34 11/25/18 12:34 11/25/18 12:34 - Medications Medications: Current Medications Dextrose (Dextrose 50% Inj) 0 ml IV STAT PRN; Protocol PRN Reason: Hypoglycemia Protocol Dextrose (Glutose 15) 0 gm PO ONCE PRN; Protocol PRN Reason: Hypoglycemia Protocol Epoetin Mitchell (Procrit) 10,000 unit IV MWF [facility] Last Admin: 11/24/18 09:18 Dose: 10,000 unit Glipizide (Glucotrol) 10 mg PO BID [facility] Last Admin: 11/25/18 09:35 Dose: 10 mg Glucagon (Glucagen Diagnostic Kit) 0 mg IM STAT PRN; Protocol PRN Reason: Hypoglycemia Protocol Heparin Sodium (Porcine) (Heparin) 5,000 units SC Q8 [facility]; Protocol Last Admin: 11/25/18 09:35 Dose: 5,000 units Vancomycin HCl 1 gm/ Sodium (Chloride) 250 mls @ 125 mls/hr IVPB F [facility]; Protocol Insulin Human Lispro (Humalog) 0 units SC ACHS [facility]; Protocol Last Admin: 11/25/18 11:30 Dose: 6 units Lactic Acid (Lac-Hydrin 12% Lotion (225 G)) 1 applic TOP DAILY [facility] Last Admin: 11/25/18 09:34 Dose: 1 applic Loperamide HCl (Imodium) 2 mg PO Q6 PRN PRN Reason: Diarrhea Losartan Potassium (Cozaar) 50 mg PO QPM [facility] Last Admin: 11/24/18 17:22 Dose: 50 mg Metoclopramide HCl (Reglan) 10 mg IVP Q6 [facility] Last Admin: 11/25/18 13:21 Dose: 10 mg Metoprolol Tartrate (Lopressor) 12.5 mg PO BID [facility] Last Admin: 11/25/18 09:34 Dose: 12.5 mg Ondansetron HCl (Zofran Inj) 4 mg IVP Q4 PRN PRN Reason: Nausea/Vomiting Last Admin: 11/20/18 10:38 Dose: 4 mg Pantoprazole Sodium (Protonix Ec Tab) 40 mg PO DAILY [facility] Last Admin: 11/25/18 09:34 Dose: 40 mg Sitagliptin Phosphate (Januvia) 25 mg PO DAILY [facility] Last Admin: 11/25/18 09:35 Dose: 25 mg Vitamin B Complex/Vit C/Folic Acid (Nephro-Elsa) 1 tab PO DAILY [facility] Last Admin: 11/25/18 09:35 Dose: 1 tab - Labs Labs: 11/25/18 05:13 11/25/18 05:13 PT 15.1 Seconds (9.8-13.1) H 11/11/18 09:53 INR 1.3 11/11/18 09:53 APTT 30.8 Seconds (25.6-37.1) 11/11/18 15:00
--- NOTE | 2018-11-25 14:16 | CP.PCM.PN ---
Subjective - Date & Time of Evaluation Date of Evaluation: 11/25/18 Time of Evaluation: 14:05 - Subjective Subjective: General Surgery Pt seen and examined this afternoon. He reports feeling better, passing gas, tolerated diet. Diarrhea has decreased, down to 2x last night. Afebrile. All incisional miranda removed yesterday with purulent discharge reported from abdominal incisional. HD sched M,W,F. Packing and dressing done this AM by surgical oncologist. Labs and vitals noted. WBC significantly improved. PE Gen: Pt laying in bed in NAD Skin: warm and dry. Scabbing to bilateral LE rash noted. Cardio: s1s2 RRR Lungs: CTA bilaterally Abd: Soft, mid surgical incision dehiscence noted with packing, (+) erythema surrounding incision has improved from previous exam. (-) distention Extr: (+) right foot well healed amputation. (+) RUE extremity with (+) thrill, (-) erythema (-) calf tenderness bilaterally A/P POD 14 small bowel resection withanastomosis for ischemic bowel, incision wound infection Wound packing and dressing changes daily Monitor labs Consider removing femoral TLC line as no medications are currently going through it. Continue abx. Pt is receiving IV antibiotics during HD MWF. Monitor vitals. Objective - Vital Signs/Intake and Output Vital Signs (last 24 hours): Temp Pulse Resp BP Pulse Ox 98.5 F 84 20 137/76 98 11/25/18 12:34 11/25/18 12:34 11/25/18 12:34 11/25/18 12:34 11/25/18 12:34 - Medications Medications: Current Medications Dextrose (Dextrose 50% Inj) 0 ml IV STAT PRN; Protocol PRN Reason: Hypoglycemia Protocol Dextrose (Glutose 15) 0 gm PO ONCE PRN; Protocol PRN Reason: Hypoglycemia Protocol Epoetin Mitchell (Procrit) 10,000 unit IV MWF [facility] Last Admin: 11/24/18 09:18 Dose: 10,000 unit Glipizide (Glucotrol) 10 mg PO BID [facility] Last Admin: 11/25/18 09:35 Dose: 10 mg Glucagon (Glucagen Diagnostic Kit) 0 mg IM STAT PRN; Protocol PRN Reason: Hypoglycemia Protocol Heparin Sodium (Porcine) (Heparin) 5,000 units SC Q8 [facility]; Protocol Last Admin: 11/25/18 09:35 Dose: 5,000 units Vancomycin HCl 1 gm/ Sodium (Chloride) 250 mls @ 125 mls/hr IVPB MWF [facility]; [place] col Insulin Human Lispro (Humalog) 0 units SC ACHS [facility]; Protocol Last Admin: 11/25/18 11:30 Dose: 6 units Lactic Acid (Lac-Hydrin 12% Lotion (225 G)) 1 applic TOP DAILY [facility] Last Admin: 11/25/18 09:34 Dose: 1 applic Loperamide HCl (Imodium) 2 mg PO Q6 PRN PRN Reason: Diarrhea Losartan Potassium (Cozaar) 50 mg PO QPM [facility] Last Admin: 11/24/18 17:22 Dose: 50 mg Metoclopramide HCl (Reglan) 10 mg PO DAILY [facility] Metoprolol Tartrate (Lopressor) 12.5 mg PO BID [facility] Last Admin: 11/25/18 09:34 Dose: 12.5 mg Pantoprazole Sodium (Protonix Ec Tab) 40 mg PO DAILY [facility] Last Admin: 11/25/18 09:34 Dose: 40 mg Sitagliptin Phosphate (Januvia) 25 mg PO DAILY [facility] Last Admin: 11/25/18 09:35 Dose: 25 mg Vitamin B Complex/Vit C/Folic Acid (Nephro-Elsa) 1 tab PO DAILY [facility] Last Admin: 11/25/18 09:35 Dose: 1 tab - Labs Labs: 11/25/18 05:13 11/25/18 05:13 PT 15.1 Seconds (9.8-13.1) H 11/11/18 09:53 INR 1.3 11/11/18 09:53 APTT 30.8 Seconds (25.6-37.1) 11/11/18 15:00
[2018-11-26 05:33] LABS: HEMOGLOBIN 8.7 g/dL (12.0-18.0); MEAN CELL VOLUME 75.8 fl (80.0-94.0); MEAN CORPUSCULAR HEMOGLOBIN 24.3 pg (27.0-31.0); MEAN CORPUSCULAR HGB CONC 32.1 g/dL (33.0-37.0); RBC 3.57 Mil/uL (4.40-5.90); RED CELL DISTRIBUTION WIDTH 20.1 % (11.5-14.5); WHITE BLOOD COUNT 12.2 K/uL (4.8-10.8)
[2018-11-26 06:00] LABS: ALB/GLOB RATIO 0.7 (1.0-2.1); ALBUMIN 2.8 g/dL (3.5-5.0)
--- NOTE | 2018-11-26 07:08 | CP.PCM.PN ---
<Henry Hodges D - Last Filed: 11/26/18 07:06> Subjective - Date & Time of Evaluation Date of Evaluation: 11/26/18 Time of Evaluation: 07:06 - Subjective Subjective: SURGERY NOTE FOR DR. MARTIN 47M seen and examined at bedside. No acute events overnight. Patient denies pain, nausea or vomiting. He has been tolerating regular diet and having bowel function. Continues to have purulent output from abd midline incision. Objective - Vital Signs/Intake and Output Vital Signs (last 24 hours): Temp Pulse Resp BP Pulse Ox 98.6 F 94 H 18 117/72 100 11/26/18 05:24 11/26/18 05:24 11/26/18 05:24 11/26/18 05:24 11/26/18 05:24 - Medications Medications: Current Medications Dextrose (Dextrose 50% Inj) 0 ml IV STAT PRN; Protocol PRN Reason: Hypoglycemia Protocol Dextrose (Glutose 15) 0 gm PO ONCE PRN; Protocol PRN Reason: Hypoglycemia Protocol Epoetin Mitchell (Procrit) 10,000 unit IV [facility] [place] Last Admin: 11/24/18 09:18 Dose: 10,000 unit Glipizide (Glucotrol) 10 mg PO BID [facility] Last Admin: 11/25/18 17:36 Dose: 10 mg Glucagon (Glucagen Diagnostic Kit) 0 mg IM STAT PRN; Protocol PRN Reason: Hypoglycemia Protocol Heparin Sodium (Porcine) (Heparin) 5,000 units SC Q8 [facility]; Protocol Last Admin: 11/26/18 00:11 Dose: Not Given Vancomycin HCl 1 gm/ Sodium (Chloride) 250 mls @ 125 mls/hr IVPB [facility] [place]; Protocol Insulin Human Lispro (Humalog) 0 units SC [facility]; Protocol Last Admin: 11/25/18 22:32 Dose: Not Given Lactic Acid (Lac-Hydrin 12% Lotion (225 G)) 1 applic TOP DAILY [facility] Last Admin: 11/25/18 09:34 Dose: 1 applic Loperamide HCl (Imodium) 2 mg PO Q6 PRN PRN Reason: Diarrhea Losartan Potassium (Cozaar) 50 mg PO QPM [facility] Last Admin: 11/25/18 21:04 Dose: 50 mg Metoclopramide HCl (Reglan) 10 mg PO DAILY [facility] Metoprolol Tartrate (Lopressor) 12.5 mg PO BID [facility] Last Admin: 11/25/18 17:36 Dose: 12.5 mg Pantoprazole Sodium (Protonix Ec Tab) 40 mg PO DAILY [facility] Last Admin: 11/25/18 09:34 Dose: 40 mg Sitagliptin Phosphate (Januvia) 25 mg PO DAILY [facility] Last Admin: 11/25/18 09:35 Dose: 25 mg Vitamin B Complex/Vit C/Folic Acid (Nephro-Elsa) 1 tab PO DAILY [facility] Last Admin: 11/25/18 09:35 Dose: 1 tab - Labs Labs: 11/26/18 04:41 11/26/18 04:41 PT 15.1 Seconds (9.8-13.1) H 11/11/18 09:53 INR 1.3 11/11/18 09:53 APTT 30.8 Seconds (25.6-37.1) 11/11/18 15:00 - Constitutional Appears: Non-toxic, No Acute Distress - Respiratory Exam Respiratory Exam: Clear to Ausculation Bilateral, NORMAL BREATHING PATTERN - Cardiovascular Exam Cardiovascular Exam: REGULAR RHYTHM, +S1, +S2 - GI/Abdominal Exam GI & Abdominal Exam: Soft. absent: Distended, Firm, Guarding, Rigid, Tenderness Additional comments: midline incision has purulent output, packing in place. - Extremities Exam Extremities Exam: absent: Pedal Edema, Tenderness - Neurological Exam Neurological Exam: Alert, Awake Assessment and Plan - Assessment and Plan (Free Text) Assessment: 47M s/p significant small bowel resection with SB-SB anastomosis for ischemic bowel POD#15, now with incision wound infection CT scan: no discernable intraperitoneal fluid collection, no intraperitoneal abscess formation Plan: - continue regular diet - daily packing changes - continue antibiotics - await blood culture - Gram neg asher - Further recs discuss with Dr. Casa Hodges, PGY3 <Fernando Beck - Last Filed: 11/26/18 13:38> Objective - Vital Signs/Intake and Output Vital Signs (last 24 hours): Temp Pulse Resp BP Pulse Ox 98.5 F 84 20 104/70 98 11/26/18 12:09 11/26/18 12:09 11/26/18 12:09 11/26/18 12:09 11/26/18 12:09 - Medications Medications: Current Medications Dextrose (Dextrose 50% Inj) 0 ml IV STAT PRN; Protocol PRN Reason: Hypoglycemia Protocol Dextrose (Glutose 15) 0 gm PO ONCE PRN; Protocol PRN Reason: Hypoglycemia Protocol Epoetin Mitchell (Procrit) 10,000 unit IV [facility] [place] Last Admin: 11/26/18 09:09 Dose: 10,000 unit Glipizide (Glucotrol) 10 mg PO BID [facility] Last Admin: 11/26/18 09:11 Dose: 10 mg Glucagon (Glucagen Diagnostic Kit) 0 mg IM STAT PRN; Protocol PRN Reason: Hypoglycemia Protocol Vancomycin HCl 1 gm/ Sodium (Chloride) 250 mls @ 125 mls/hr IVPB [facility] [place]; Protocol Last Admin: 11/26/18 09:08 Dose: 125 mls/hr Gentamicin Sulfate/Sodium Chloride (Gentamicin 60mg/50ml Ns) 60 mg in 50 mls @ 49.261 mls/hr IVPB [facility] [place]; Protocol Last Admin: 11/26/18 10:16 Dose: 49.261 mls/hr Insulin Human Lispro (Humalog) 0 units SC ACHS [facility]; Protocol Last Admin: 11/26/18 12:25 Dose: 2 units Lactic Acid (Lac-Hydrin 12% Lotion (225 G)) 1 applic TOP DAILY [facility] Last Admin: 11/26/18 09:14 Dose: 1 applic Loperamide HCl (Imodium) 2 mg PO Q6 PRN PRN Reason: Diarrhea Losartan Potassium (Cozaar) 50 mg PO QPM [facility] Last Admin: 11/25/18 21:04 Dose: 50 mg Metoclopramide HCl (Reglan) 10 mg PO DAILY [facility] Last Admin: 11/26/18 12:25 Dose: 10 mg Metoprolol Tartrate (Lopressor) 12.5 mg PO BID [facility] Last Admin: 11/26/18 09:25 Dose: Not Given Pantoprazole Sodium (Protonix Ec Tab) 40 mg PO DAILY [facility] Last Admin: 11/26/18 09:15 Dose: 40 mg Sitagliptin Phosphate (Januvia) 25 mg PO DAILY [facility] Last Admin: 11/26/18 09:14 Dose: 25 mg Tobramycin/Dexamethasone (Tobradex Opht Susp) 2 drop OU Q4 [facility] Last Admin: 11/26/18 12:31 Dose: 2 units Vitamin B Complex/Vit C/Folic Acid (Nephro-Elsa) 1 tab PO DAILY [facility] Last Admin: 11/26/18 09:15 Dose: 1 tab - Labs Labs: 11/26/18 04:41 11/26/18 04:41 PT 15.1 Seconds (9.8-13.1) H 11/11/18 09:53 INR 1.3 11/11/18 09:53 APTT 30.8 Seconds (25.6-37.1) 11/11/18 15:00 Assessment and Plan - Assessment and Plan (Free Text) Plan: agree with resident no overnight events, Afebrile, tolerating diet. abd: soft, NT, ND, obese, midline wound with more serous drainage cont diet dressing changes f/u wound cultures
--- NOTE | 2018-11-26 08:53 | PN ---
DATE: 11/25/2018 SUBJECTIVE: The patient seen and examined. Interim events noted. Consults noted and appreciated. Nephrology and Surgery followup and intervention noted and appreciated. The patient remains in progressive care unit on telemetry monitoring, sleeping, arousable, feels okay. Denies any specific complaint. No abdominal pain. No chest pain. No shortness of breath. PHYSICAL EXAMINATION: GENERAL: The patient is in no acute distress. VITAL SIGNS: Stable. HEART: S1, S2 normal and regular. LUNGS: Good bilateral air exchange. ABDOMEN: Soft, nontender. The patient has midline scar from surgery which has opened up in the middle and the patient has packing in there and the patient also has lower end ____ minimal discharge, but no sign of acute cellulitis. No sign of acute abdomen. No guarding, no rigidity, no rebound. Bowel sounds are plus and normal. EXTREMITIES: No edema. No calf swelling. No tenderness. No acute ischemia. CENTRAL NERVOUS SYSTEM: Essentially unchanged. DIAGNOSTIC DATA: Available diagnostic data reviewed. Telemetry monitoring does not show significant arrhythmia. WBC count is 12. ASSESSMENT AND PLAN: Overall, the patient is slowly improved. Plan as ordered. Joel Lake MD
[2018-11-26] MEDS: EPOETIN ALFA 10,000 UNIT/ML ML IV SCH (09:09)
[2018-11-26] MEDS: Insulin Lispro (humaLOG) 100 Units/ml Inj SC SCH ×4 (09:13→22:14)
[2018-11-26] MEDS: Pantoprazole 40 mg EC Tab PO SCH (09:15)
[2018-11-26] MEDS: Multivitamin Vitamin B Complex (Nephro-Vite) Tab PO SCH (09:15)
[2018-11-26] MEDS ORDERED: Gentamicin 60mg/50ml NS 60 MG/50 ML BAG IVPB SCH ×2 (09:30→09:41)
--- NOTE | 2018-11-26 10:33 | CP.PCM.PN ---
Subjective - Date & Time of Evaluation Date of Evaluation: 11/26/18 Time of Evaluation: 10:23 - Subjective Subjective: I D NOTE DISCUSSED c [employer] . TOLERATING DIET HAS INCISIONAL DRAINAGE , WHICH HAS BEEN CULTURED GROWING GRAM NEG RODS . GENTAMICIN POST HD HAS BEEN ADDED WE AWAIT IDENTIFICATION OF GRAM NEGATIVE RODS WAS ON CIPRO(CANNOT R/O ESBL AND HE IS ALLERGIC TOPCN CONTINUE VANCOMYCIN TIW TROUGH ORDERED Objective - Vital Signs/Intake and Output Vital Signs (last 24 hours): Temp Pulse Resp BP Pulse Ox 97.9 F 87 20 109/67 99 11/26/18 07:32 11/26/18 07:32 11/26/18 07:32 11/26/18 09:25 11/26/18 07:32 - Medications Medications: Current Medications Dextrose (Dextrose 50% Inj) 0 ml IV STAT PRN; Protocol PRN Reason: Hypoglycemia Protocol Dextrose (Glutose 15) 0 gm PO ONCE PRN; Protocol PRN Reason: Hypoglycemia Protocol Epoetin Mitchell (Procrit) 10,000 unit IV [facility] [place] Last Admin: 11/26/18 09:09 Dose: 10,000 unit Glipizide (Glucotrol) 10 mg PO BID [facility] Last Admin: 11/26/18 09:11 Dose: 10 mg Glucagon (Glucagen Diagnostic Kit) 0 mg IM STAT PRN; Protocol PRN Reason: Hypoglycemia Protocol Heparin Sodium (Porcine) (Heparin) 5,000 units SC Q8 [facility]; Protocol Last Admin: 11/26/18 09:10 Dose: 5,000 units Vancomycin HCl 1 gm/ Sodium (Chloride) 250 mls @ 125 mls/hr IVPB [facility] [place]; Protocol Last Admin: 11/26/18 09:08 Dose: 125 mls/hr Gentamicin Sulfate/Sodium Chloride (Gentamicin 60mg/50ml Ns) 60 mg in 50 mls @ 49.261 mls/hr IVPB [facility] [place]; Protocol Last Admin: 11/26/18 10:16 Dose: 49.261 mls/hr Insulin Human Lispro (Humalog) 0 units SC ACHS [facility]; Protocol Last Admin: 11/26/18 09:13 Dose: 2 units Lactic Acid (Lac-Hydrin 12% Lotion (225 G)) 1 applic TOP DAILY [facility] Last Admin: 11/26/18 09:14 Dose: 1 applic Loperamide HCl (Imodium) 2 mg PO Q6 PRN PRN Reason: Diarrhea Losartan Potassium (Cozaar) 50 mg PO QPM [facility] Last Admin: 11/25/18 21:04 Dose: 50 mg Metoclopramide HCl (Reglan) 10 mg PO DAILY [facility] Metoprolol Tartrate (Lopressor) 12.5 mg PO BID [facility] Last Admin: 11/26/18 09:25 Dose: Not Given Pantoprazole Sodium (Protonix Ec Tab) 40 mg PO DAILY [facility] Last Admin: 11/26/18 09:15 Dose: 40 mg Sitagliptin Phosphate (Januvia) 25 mg PO DAILY [facility] Last Admin: 11/26/18 09:14 Dose: 25 mg Tobramycin/Dexamethasone (Tobradex Opht Susp) 2 drop OU Q4 [facility] Vitamin B Complex/Vit C/Folic Acid (Nephro-Elsa) 1 tab PO DAILY [facility] Last Admin: 11/26/18 09:15 Dose: 1 tab - Labs Labs: 11/26/18 04:41 11/26/18 04:41 PT 15.1 Seconds (9.8-13.1) H 11/11/18 09:53 INR 1.3 11/11/18 09:53 APTT 30.8 Seconds (25.6-37.1) 11/11/18 15:00
--- NOTE | 2018-11-26 10:47 | CP.PCM.PN ---
Subjective - Date & Time of Evaluation Date of Evaluation: 11/26/18 Time of Evaluation: 10:46 - Subjective Subjective: Dialysis note Patient seen on hemodialysis now Discussed with the dialysis nurse at the bedside And vital signs stable Objective - Vital Signs/Intake and Output Vital Signs (last 24 hours): Temp Pulse Resp BP Pulse Ox 97.9 F 87 20 109/67 99 11/26/18 07:32 11/26/18 07:32 11/26/18 07:32 11/26/18 09:25 11/26/18 07:32 - Medications Medications: Current Medications Dextrose (Dextrose 50% Inj) 0 ml IV STAT PRN; Protocol PRN Reason: Hypoglycemia Protocol Dextrose (Glutose 15) 0 gm PO ONCE PRN; Protocol PRN Reason: Hypoglycemia Protocol Epoetin Mitchell (Procrit) 10,000 [place] [facility] [place] Last Admin: 11/26/18 09:09 Dose: 10,000 unit Glipizide (Glucotrol) 10 mg PO BID [facility] Last Admin: 11/26/18 09:11 Dose: 10 mg Glucagon (Glucagen Diagnostic Kit) 0 mg IM STAT PRN; Protocol PRN Reason: Hypoglycemia Protocol Heparin Sodium (Porcine) (Heparin) 5,000 units SC Q8 [facility]; Protocol Last Admin: 11/26/18 09:10 Dose: 5,000 units Vancomycin HCl 1 gm/ Sodium (Chloride) 250 mls @ 125 mls/hr [place]PB [facility] [place]; Protocol Last Admin: 11/26/18 09:08 Dose: 125 mls/hr Gentamicin Sulfate/Sodium Chloride (Gentamicin 60mg/50ml Ns) 60 mg in 50 mls @ 49.261 mls/hr IVPB [facility] [place]; Protocol Last Admin: 11/26/18 10:16 Dose: 49.261 mls/hr Insulin Human Lispro (Humalog) 0 units SC ACHS [facility]; Protocol Last Admin: 11/26/18 09:13 Dose: 2 units Lactic Acid (Lac-Hydrin 12% Lotion (225 G)) 1 applic TOP DAILY [facility] Last Admin: 11/26/18 09:14 Dose: 1 applic Loperamide HCl (Imodium) 2 mg PO Q6 PRN PRN Reason: Diarrhea Losartan Potassium (Cozaar) 50 mg PO QPM [facility] Last Admin: 11/25/18 21:04 Dose: 50 mg Metoclopramide HCl (Reglan) 10 mg PO DAILY [facility] Metoprolol Tartrate (Lopressor) 12.5 mg PO BID [facility] Last Admin: 11/26/18 09:25 Dose: Not Given Pantoprazole Sodium (Protonix Ec Tab) 40 mg PO DAILY [facility] Last Admin: 11/26/18 09:15 Dose: 40 mg Sitagliptin Phosphate (Januvia) 25 mg PO DAILY [facility] Last Admin: 11/26/18 09:14 Dose: 25 mg Tobramycin/Dexamethasone (Tobradex Opht Susp) 2 drop OU Q4 [facility] Vitamin B Complex/Vit C/Folic Acid (Nephro-Elsa) 1 tab PO DAILY [facility] Last Admin: 11/26/18 09:15 Dose: 1 tab - Labs Labs: 11/26/18 04:41 11/26/18 04:41 PT 15.1 Seconds (9.8-13.1) H 11/11/18 09:53 INR 1.3 11/11/18 09:53 APTT 30.8 Seconds (25.6-37.1) 11/11/18 15:00 - Constitutional Appears: No Acute Distress - Eye Exam Eye Exam: Conjunctival injection - ENT Exam ENT Exam: Mucous Membranes Moist - Neck Exam Neck Exam: absent: Lymphadenopathy - Respiratory Exam Respiratory Exam: NORMAL BREATHING PATTERN. absent: Chest Wall Tenderness - Cardiovascular Exam Cardiovascular Exam: absent: Gallop, JVD, Rubs - GI/Abdominal Exam GI & Abdominal Exam: Soft - Extremities Exam Extremities Exam: absent: Calf Tenderness - Back Exam Back Exam: absent: CVA tenderness (L), CVA tenderness (R) - Neurological Exam Neurological Exam: Alert - Psychiatric Exam Psychiatric exam: Normal Affect - Skin Skin Exam: absent: Cyanosis Assessment and Plan (1) ESRD (end stage renal disease) on dialysis Assessment & Plan: End-stage renal disease patient on maintenance dialysis Saturday. S/P emergency surgery regarding small bowel resection 11/11 Leukocytosis Patient status post right upper arm transposition for AV fistula about few weeks ago in another hospital in Severe anemia In addition PMHx - T2DM, acute CVA, ESRD on HD, HTN, PSHx - Cranial surgery for CVA, EGD last 09/18 with LA grade C erosive esophagitis, gastritis and moderate stenosis at pylorus (09/2018), Anemia, HTN, HLD, NIDDM, gastroparesis, transmetatarsal amputation on the right foot The plan He was seen on hemodialysis now Discussed with the dialysis nurse at the bedside Vital signs stable Ultrafiltration of about 2500 cc as tolerated Status: Acute (2) GI bleed Status: Acute (3) Ischemia, bowel Status: Acute
[2018-11-26] MEDS: Dexamethasone/Tobramycin Ophth Susp OU SCH ×3 (12:31→21:00)
--- NOTE | 2018-11-26 15:53 | PN ---
DATE: 11/26/2018 SUBJECTIVE: The patient seen and examined. Interim events noted. Consults noted and appreciated. The patient remains in progressive care unit on telemetry monitoring, awake, responsive, feels okay. Denies any specific complaint of chest pain, shortness of breath or abdominal pain. . PHYSICAL EXAMINATION: GENERAL: The patient is in no acute distress. VITAL SIGNS: Stable. HEART: S1, S2 normal and regular. LUNGS: Good bilateral air exchange. ABDOMEN: Soft, nontender. The patient has midline scar. [place] are removed. The patient has opening in the middle with packing. The patient also has a dried scab on the lower end of incision. No sign of acute cellulitis. No sign of acute abdomen. No guarding, no rigidity, no rebound. Bowel sounds are plus and normal. EXTREMITIES: No edema. No calf swelling. No tenderness. No acute ischemia. CENTRAL NERVOUS SYSTEM: Essentially unchanged. DIAGNOSTIC DATA: Available diagnostic data reviewed. WBC is down to 12 and improving. ASSESSMENT AND PLAN: Overall, the patient is also overall clinically improving. Plan as ordered. Joel Lake MD
[2018-11-27] MEDS: Dexamethasone/Tobramycin Ophth Susp OU SCH ×6 (00:51→21:30)
[2018-11-27 05:45] LABS: HEMOGLOBIN 9.4 g/dL (12.0-18.0); MEAN CELL VOLUME 77.3 fl (80.0-94.0); MEAN CORPUSCULAR HEMOGLOBIN 24.1 pg (27.0-31.0); MEAN CORPUSCULAR HGB CONC 31.2 g/dL (33.0-37.0); RBC 3.91 Mil/uL (4.40-5.90); WHITE BLOOD COUNT 10.6 K/uL (4.8-10.8)
[2018-11-27 06:28] LABS: ALB/GLOB RATIO 0.8 (1.0-2.1); CALCIUM 8.3 mg/dL (8.4-10.2)
--- NOTE | 2018-11-27 07:50 | CP.PCM.PN ---
<Sesar Morin - Last Filed: 11/27/18 07:47> Subjective - Date & Time of Evaluation Date of Evaluation: 11/27/18 Time of Evaluation: 07:47 - Subjective Subjective: General Surgery Progress Note for Dr. Cormier 47M seen and evaluated at bedside this morning. No acute events overnight. No complaints this morning. Patient having BM and passing flatus. Midline incision continues to have drainage. Ambulating with cane. Denies f/c, n/v/d, SOB, CP, or urinary symptoms. Objective - Vital Signs/Intake and Output Vital Signs (last 24 hours): Temp Pulse Resp BP Pulse Ox 99.3 F 94 H 19 91/54 L 97 11/27/18 05:24 11/27/18 05:24 11/27/18 05:24 11/27/18 05:24 11/27/18 05:24 - Medications Medications: Current Medications Dextrose (Dextrose 50% Inj) 0 ml IV STAT PRN; Protocol PRN Reason: Hypoglycemia Protocol Dextrose (Glutose 15) 0 gm PO ONCE PRN; Protocol PRN Reason: Hypoglycemia Protocol Epoetin Mitchell (Procrit) 10,000 unit IV [facility] [place] Last Admin: 11/26/18 09:09 Dose: 10,000 unit Glipizide (Glucotrol) 10 mg PO BID [facility] Last Admin: 11/26/18 17:31 Dose: 10 mg Glucagon (Glucagen Diagnostic Kit) 0 mg IM STAT PRN; Protocol PRN Reason: Hypoglycemia Protocol Heparin Sodium (Porcine) (Heparin) 5,000 units SC Q8 [facility]; Protocol Last Admin: 11/27/18 00:49 Dose: 5,000 units Vancomycin HCl 1 gm/ Sodium (Chloride) 250 mls @ 125 mls/hr IVPB [facility] [place]; Protocol Last Admin: 11/26/18 09:08 Dose: 125 mls/hr Amikacin Sulfate 500 mg/ (Sodium Chloride) 102 mls @ 101.185 mls/hr IVPB [facility] [place]; Protocol Insulin Human Lispro (Humalog) 0 units SC ACHS [facility]; Protocol Last Admin: 11/26/18 22:14 Dose: Not Given Lactic Acid (Lac-Hydrin 12% Lotion (225 G)) 1 applic TOP DAILY [facility] Last Admin: 11/26/18 09:14 Dose: 1 applic Loperamide HCl (Imodium) 2 mg PO Q6 PRN PRN Reason: Diarrhea Losartan Potassium (Cozaar) 50 mg PO QPM [facility] Last Admin: 11/26/18 19:28 Dose: 50 mg Metoclopramide HCl (Reglan) 10 mg PO DAILY [facility] Last Admin: 11/26/18 12:25 Dose: 10 mg Metoprolol Tartrate (Lopressor) 12.5 mg PO BID [facility] Last Admin: 11/26/18 17:28 Dose: 12.5 mg Pantoprazole Sodium (Protonix Ec Tab) 40 mg PO DAILY [facility] Last Admin: 11/26/18 09:15 Dose: 40 mg Sitagliptin Phosphate (Januvia) 25 mg PO DAILY [facility] Last Admin: 11/26/18 09:14 Dose: 25 mg Tobramycin/Dexamethasone (Tobradex Opht Susp) 2 drop OU Q4 [facility] Last Admin: 11/27/18 05:29 Dose: 2 drop Vitamin B Complex/Vit C/Folic Acid (Nephro-Elsa) 1 tab PO DAILY [facility] Last Admin: 11/26/18 09:15 Dose: 1 tab - Labs Labs: 11/27/18 04:45 11/27/18 04:45 PT 15.1 Seconds (9.8-13.1) H 11/11/18 09:53 INR 1.3 11/11/18 09:53 APTT 30.8 Seconds (25.6-37.1) 11/11/18 15:00 - Constitutional Appears: Well, Non-toxic, No Acute Distress - Head Exam Head Exam: ATRAUMATIC, NORMAL INSPECTION, NORMOCEPHALIC - Eye Exam Eye Exam: EOMI - ENT Exam ENT Exam: Mucous Membranes Moist - Respiratory Exam Respiratory Exam: NORMAL BREATHING PATTERN. absent: Respiratory Distress - Cardiovascular Exam Cardiovascular Exam: REGULAR RHYTHM. absent: Tachycardia - GI/Abdominal Exam GI & Abdominal Exam: Soft, Normal Bowel Sounds. absent: Tenderness - Neurological Exam Neurological Exam: Alert, Awake - Psychiatric Exam Psychiatric exam: Normal Affect, Normal Mood - Skin Additional comments: Midline incision erythematous, improving Packing changed w/ dressing c/d/i Assessment and Plan - Assessment and Plan (Free Text) Assessment: 47M s/p exploratory laparotomy with small bowel resection POD16 complicated by wound infection Plan: Continue local wound care w/ packing and dressing changes daily Continue IV Abx per ID Cultures positive for P. Mirabilis Warm compresses TID Regular diet Encourage ambulation Further recommendations per Dr. Casa Morin PGY1 <Fernando Beck - Last Filed: 11/27/18 11:02> Objective - Vital Signs/Intake and Output Vital Signs (last 24 hours): Temp Pulse Resp BP Pulse Ox 98.4 F 96 H 18 118/73 97 11/27/18 08:16 11/27/18 09:57 11/27/18 08:16 11/27/18 09:57 11/27/18 08:16 - Medications Medications: Current Medications Dextrose (Dextrose 50% Inj) 0 ml IV STAT PRN; Protocol PRN Reason: Hypoglycemia Protocol Dextrose (Glutose 15) 0 gm PO ONCE PRN; Protocol PRN Reason: Hypoglycemia Protocol Epoetin Mitchell (Procrit) 10,000 unit IV [facility] [place] Last Admin: 11/26/18 09:09 Dose: 10,000 unit Glipizide (Glucotrol) 10 mg PO BID [facility] Last Admin: 11/27/18 09:56 Dose: 10 mg Glucagon (Glucagen Diagnostic Kit) 0 mg IM STAT PRN; Protocol PRN Reason: Hypoglycemia Protocol Heparin Sodium (Porcine) (Heparin) 5,000 units SC Q8 [facility]; Protocol Last Admin: 11/27/18 09:55 Dose: 5,000 units Vancomycin HCl 1 gm/ Sodium (Chloride) 250 mls @ 125 mls/hr IVPB [facility] [place]; Protocol Last Admin: 11/26/18 09:08 Dose: 125 mls/hr Amikacin Sulfate 500 mg/ (Sodium Chloride) 102 mls @ 101.185 mls/hr IVPB [facility] [place]; Protocol Insulin Human Lispro (Humalog) 0 units SC ACHS [facility]; Protocol Last Admin: 11/27/18 09:48 Dose: Not Given Lactic Acid (Lac-Hydrin 12% Lotion (225 G)) 1 applic TOP DAILY [facility] Last Admin: 11/27/18 09:54 Dose: 1 applic Loperamide HCl (Imodium) 2 mg PO Q6 PRN PRN Reason: Diarrhea Losartan Potassium (Cozaar) 50 mg PO QPM [facility] Last Admin: 11/26/18 19:28 Dose: 50 mg Metoclopramide HCl (Reglan) 10 mg PO DAILY [facility] Last Admin: 11/27/18 09:58 Dose: 10 mg Metoprolol Tartrate (Lopressor) 12.5 mg PO BID [facility] Last Admin: 11/27/18 09:57 Dose: 12.5 mg Pantoprazole Sodium (Protonix Ec Tab) 40 mg PO DAILY [facility] Last Admin: 11/27/18 09:58 Dose: 40 mg Sitagliptin Phosphate (Januvia) 25 mg PO DAILY [facility] Last Admin: 11/27/18 09:55 Dose: 25 mg Tobramycin/Dexamethasone (Tobradex Opht Susp) 2 drop OU Q4 [facility] Last Admin: 11/27/18 09:58 Dose: 2 drop Vitamin B Complex/Vit C/Folic Acid (Nephro-Elsa) 1 tab PO DAILY [facility] Last Admin: 11/27/18 09:58 Dose: 1 tab - Labs Labs: 11/27/18 04:45 11/27/18 04:45 PT 15.1 Seconds (9.8-13.1) H 11/11/18 09:53 INR 1.3 11/11/18 09:53 APTT 30.8 Seconds (25.6-37.1) 11/11/18 15:00 Assessment and Plan - Assessment and Plan (Free Text) Plan: agree with resident pt doing well tolerating diet, no nausea or vomiting. +BM, flatus abd: soft, obese, NT, ND, midline wound with packing in place minimal drainage a/p diet as tolerated local wound care stable for dc
[2018-11-27] MEDS: Insulin Lispro (humaLOG) 100 Units/ml Inj SC SCH ×4 (09:48→22:00)
[2018-11-27] MEDS: Pantoprazole 40 mg EC Tab PO SCH (09:58)
[2018-11-27] MEDS: Multivitamin Vitamin B Complex (Nephro-Vite) Tab PO SCH (09:58)
--- NOTE | 2018-11-27 10:03 | CP.PCM.PN ---
Subjective - Date & Time of Evaluation Date of Evaluation: 11/27/18 Time of Evaluation: 10:02 - Subjective Subjective: Patient awake and conscious feeling much better. Still draining coming out of the abdominal wound Objective - Vital Signs/Intake and Output Vital Signs (last 24 hours): Temp Pulse Resp BP Pulse Ox 98.4 F 96 H 18 118/73 97 11/27/18 08:16 11/27/18 09:57 11/27/18 08:16 11/27/18 09:57 11/27/18 08:16 - Medications Medications: Current Medications Dextrose (Dextrose 50% Inj) 0 ml IV STAT PRN; Protocol PRN Reason: Hypoglycemia Protocol Dextrose (Glutose 15) 0 gm PO ONCE PRN; Protocol PRN Reason: Hypoglycemia Protocol Epoetin Mitchell (Procrit) 10,000 [place] [facility] [place] Last Admin: 11/26/18 09:09 Dose: 10,000 unit Glipizide (Glucotrol) 10 mg PO BID [facility] Last Admin: 11/27/18 09:56 Dose: 10 mg Glucagon (Glucagen Diagnostic Kit) 0 mg IM STAT PRN; Protocol PRN Reason: Hypoglycemia Protocol Heparin Sodium (Porcine) (Heparin) 5,000 units SC Q8 [facility]; Protocol Last Admin: 11/27/18 09:55 Dose: 5,000 units Vancomycin HCl 1 gm/ Sodium (Chloride) 250 mls @ 125 mls/hr [place] [facility] Protocol Last Admin: 11/26/18 09:08 Dose: 125 mls/hr Amikacin Sulfate 500 mg/ (Sodium Chloride) 102 mls @ 101.185 mls/hr [place]PB [facility]; Protocol Insulin Human Lispro (Humalog) 0 units SC ACHS [facility]; Protocol Last Admin: 11/27/18 09:48 Dose: Not Given Lactic Acid (Lac-Hydrin 12% Lotion (225 G)) 1 applic TOP DAILY [facility] Last Admin: 11/27/18 09:54 Dose: 1 applic Loperamide HCl (Imodium) 2 mg PO Q6 PRN PRN Reason: Diarrhea Losartan Potassium (Cozaar) 50 mg PO QPM [facility] Last Admin: 11/26/18 19:28 Dose: 50 mg Metoclopramide HCl (Reglan) 10 mg PO DAILY [facility] Last Admin: 11/27/18 09:58 Dose: 10 mg Metoprolol Tartrate (Lopressor) 12.5 mg PO BID ON [facility] Last Admin: 11/27/18 09:57 Dose: 12.5 mg Pantoprazole Sodium (Protonix Ec Tab) 40 mg PO DAILY [facility] Last Admin: 11/27/18 09:58 Dose: 40 mg Sitagliptin Phosphate (Januvia) 25 mg PO DAILY [facility] Last Admin: 11/27/18 09:55 Dose: 25 mg Tobramycin/Dexamethasone (Tobradex Opht Susp) 2 drop OU Q4 [facility] Last Admin: 11/27/18 09:58 Dose: 2 drop Vitamin B Complex/Vit C/Folic Acid (Nephro-Elsa) 1 tab PO DAILY [facility] Last Admin: 11/27/18 09:58 Dose: 1 tab - Labs Labs: 11/27/18 04:45 11/27/18 04:45 PT 15.1 Seconds (9.8-13.1) H 11/11/18 09:53 INR 1.3 11/11/18 09:53 APTT 30.8 Seconds (25.6-37.1) 11/11/18 15:00 - Constitutional Appears: No Acute Distress - Eye Exam Eye Exam: Conjunctival injection - ENT Exam ENT Exam: Mucous Membranes Moist - Respiratory Exam Respiratory Exam: NORMAL BREATHING PATTERN - Cardiovascular Exam Cardiovascular Exam: absent: Gallop, JVD, Rubs - GI/Abdominal Exam GI & Abdominal Exam: Soft, Normal Bowel Sounds - Extremities Exam Extremities Exam: absent: Calf Tenderness - Back Exam Back Exam: absent: CVA tenderness (L), CVA tenderness (R) - Psychiatric Exam Psychiatric exam: Normal Affect Assessment and Plan (1) ESRD (end stage renal disease) on dialysis Assessment & Plan: End-stage renal disease patient on maintenance dialysis Saturday. S/P emergency surgery regarding small bowel resection 11/11 Wound draining Leukocytosis Patient status post right upper arm transposition for AV fistula about few weeks ago in another hospital in Severe anemia In addition PMHx - T2DM, acute CVA, ESRD on HD, HTN, PSHx - Cranial surgery for CVA, EGD last 09/18 with LA grade C erosive esophagitis, gastritis and moderate stenosis at pylorus (09/2018), Anemia, HTN, HLD, NIDDM, gastroparesis, transmetatarsal amputation on the right foot The plan Antibiotics as per infectious disease and sensitivity Hemodialysis Saturday Status: Acute (2) GI bleed Status: Acute (3) Ischemia, bowel Status: Acute
--- NOTE | 2018-11-27 11:04 | CP.PCM.PN ---
<TerryemilianeishaHernandoa - Last Filed: 11/27/18 11:04> Subjective - Date & Time of Evaluation Date of Evaluation: 11/27/18 Time of Evaluation: 09:45 - Subjective Subjective: Pt seen/examined this am w/ Dr. Lake. No acute events overnight; reports that he tolerates diet and has BMs. Denies trouble breathing, chest pains. Wound cultures - proteus mirabilis. Antibiotics have been changed as per ID; refer to plan. Objective - Vital Signs/Intake and Output Vital Signs (last 24 hours): Temp Pulse Resp BP Pulse Ox 98.4 F 96 H 18 118/73 97 11/27/18 08:16 11/27/18 09:57 11/27/18 08:16 11/27/18 09:57 11/27/18 08:16 - Medications Medications: Current Medications Dextrose (Dextrose 50% Inj) 0 ml IV STAT PRN; Protocol PRN Reason: Hypoglycemia Protocol Dextrose (Glutose 15) 0 gm PO ONCE PRN; Protocol PRN Reason: Hypoglycemia Protocol Epoetin Mitchell (Procrit) 10,000 unit IV MWF [facility] Last Admin: 11/26/18 09:09 Dose: 10,000 unit Glipizide (Glucotrol) 10 mg PO BID [facility] Last Admin: 11/27/18 09:56 Dose: 10 mg Glucagon (Glucagen Diagnostic Kit) 0 mg IM STAT PRN; Protocol PRN Reason: Hypoglycemia Protocol Heparin Sodium (Porcine) (Heparin) 5,000 units SC Q8 [facility]; Protocol Last Admin: 11/27/18 09:55 Dose: 5,000 units Vancomycin HCl 1 gm/ Sodium (Chloride) 250 mls @ 125 mls/hr IVPB F [facility]; Prot ocol Last Admin: 11/26/18 09:08 Dose: 125 mls/hr Amikacin Sulfate 500 mg/ (Sodium Chloride) 102 mls @ 101.185 mls/hr [place] [facility] [place] Protocol Insulin Human Lispro (Humalog) 0 units SC ACHS [facility]; Protocol Last Admin: 11/27/18 09:48 Dose: Not Given Lactic Acid (Lac-Hydrin 12% Lotion (225 G)) 1 applic TOP DAILY [facility] Last Admin: 11/27/18 09:54 Dose: 1 applic Loperamide HCl (Imodium) 2 mg PO Q6 PRN PRN Reason: Diarrhea Losartan Potassium (Cozaar) 50 mg PO QPM [facility] Last Admin: 11/26/18 19:28 Dose: 50 mg Metoclopramide HCl (Reglan) 10 mg PO DAILY [facility] Last Admin: 11/27/18 09:58 Dose: 10 mg Metoprolol Tartrate (Lopressor) 12.5 mg PO BID [facility] Last Admin: 11/27/18 09:57 Dose: 12.5 mg Pantoprazole Sodium (Protonix Ec Tab) 40 mg PO DAILY [facility] Last Admin: 11/27/18 09:58 Dose: 40 mg Sitagliptin Phosphate (Januvia) 25 mg PO DAILY [facility] Last Admin: 11/27/18 09:55 Dose: 25 mg Tobramycin/Dexamethasone (Tobradex Opht Susp) 2 drop OU Q4 [facility] Last Admin: 11/27/18 09:58 Dose: 2 drop Vitamin B Complex/Vit C/Folic Acid (Nephro-Elsa) 1 tab PO DAILY [facility] Last Admin: 11/27/18 09:58 Dose: 1 tab - Labs Labs: 11/27/18 04:45 11/27/18 04:45 PT 15.1 Seconds (9.8-13.1) H 11/11/18 09:53 INR 1.3 11/11/18 09:53 APTT 30.8 Seconds (25.6-37.1) 11/11/18 15:00 - Constitutional Appears: No Acute Distress, Chronically Ill - Head Exam Head Exam: NORMAL INSPECTION - ENT Exam ENT Exam: Mucous Membranes Moist - Respiratory Exam Respiratory Exam: Clear to Ausculation Bilateral, NORMAL BREATHING PATTERN - Cardiovascular Exam Cardiovascular Exam: REGULAR RHYTHM, +S1, +S2 - GI/Abdominal Exam GI & Abdominal Exam: Soft, Normal Bowel Sounds Additional comments: midline incision partially covered with dressing, which appears clean/dry erythema seen at part of incision that is uncovered by dressing - Extremities Exam Extremities Exam: absent: Calf Tenderness - Neurological Exam Neurological Exam: Alert, Awake - Skin Skin Exam: Warm Assessment and Plan - Assessment and Plan (Free Text) Assessment: 47 yo M with ESRD (HD ), s/p significant bowel resection due to ischemic bowel; POD 16; tolerating diet and having BMs; with proteus mirabilis in wound culture. Plan: - POD 16, s/p small bowel resection; diet advanced - Abx - ID consult Dr. Elam; wound culture grew proteus mirabilis, started on amikacin post dialysis, recs appreciated. Continuing w/ vanco post dialysis. - Surg on board due to bowel resection, wound cultures - ESRD - HD MWF - BP control w/ losartan - Insulin coverage scale and hypoglycemia protocol - Protonix - Heparin <Joel Lake K - Last Filed: 11/27/18 12:10> Objective - Vital Signs/Intake and Output Vital Signs (last 24 hours): Temp Pulse Resp BP Pulse Ox 98.5 F 90 18 114/73 97 11/27/18 12:03 11/27/18 12:03 11/27/18 12:03 11/27/18 12:03 11/27/18 12:03 - Medications Medications: Current Medications Epoetin Mitchell (Procrit) 10,000 unit IV F [facility] Last Admin: 11/26/18 09:09 Dose: 10,000 unit Glipizide (Glucotrol) 10 mg PO BID [facility] Last Admin: 11/27/18 09:56 Dose: 10 mg Heparin Sodium (Porcine) (Heparin) 5,000 units SC Q8 [facility]; Protocol Last Admin: 11/27/18 09:55 Dose: 5,000 units Vancomycin HCl 1 gm/ Sodium (Chloride) 250 mls @ 125 mls/hr [place] [facility]; Protocol Last Admin: 11/26/18 09:08 Dose: 125 mls/hr Amikacin Sulfate 500 mg/ (Sodium Chloride) 102 mls @ 101.185 mls/hr [place]PB [facility]; Protocol Insulin Human Lispro (Humalog) 0 units SC ACHS [facility]; Protocol Last Admin: 11/27/18 11:41 Dose: 2 units Lactic Acid (Lac-Hydrin 12% Lotion (225 G)) 1 applic TOP DAILY [facility] Last Admin: 11/27/18 09:54 Dose: 1 applic Loperamide HCl (Imodium) 2 mg PO Q6 PRN PRN Reason: Diarrhea Losartan Potassium (Cozaar) 50 mg PO QPM [facility] Last Admin: 11/26/18 19:28 Dose: 50 mg Metoclopramide HCl (Reglan) 10 mg PO DAILY [facility] Last Admin: 11/27/18 09:58 Dose: 10 mg Metoprolol Tartrate (Lopressor) 12.5 mg PO BID [facility] Last Admin: 11/27/18 09:57 Dose: 12.5 mg Pantoprazole Sodium (Protonix Ec Tab) 40 mg PO DAILY [facility] Last Admin: 11/27/18 09:58 Dose: 40 mg Sitagliptin Phosphate (Januvia) 25 mg PO DAILY [facility] Last Admin: 11/27/18 09:55 Dose: 25 mg Tobramycin/Dexamethasone (Tobradex Opht Susp) 2 drop OU Q4 [facility] Last Admin: 11/27/18 09:58 Dose: 2 drop Vitamin B Complex/Vit C/Folic Acid (Nephro-Elsa) 1 tab PO DAILY [facility] Last Admin: 11/27/18 09:58 Dose: 1 tab - Labs Labs: 11/27/18 04:45 11/27/18 04:45 PT 15.1 Seconds (9.8-13.1) H 11/11/18 09:53 INR 1.3 11/11/18 09:53 APTT 30.8 Seconds (25.6-37.1) 11/11/18 15:00 Assessment and Plan - Assessment and Plan (Free Text) Plan: Patient was personally seen and examined by me in rounds with residents. Available labs and diagnostic data reviewed. Case, Patient's condition and management plan discussed with residents in rounds. Agree with resident's progress note. Plan: As ordered.
--- NOTE | 2018-11-27 19:24 | CP.PCM.PN ---
Subjective - Date & Time of Evaluation Date of Evaluation: 11/27/18 Time of Evaluation: 19:25 - Subjective Subjective: I D NOTE VANCOMYCIN TROUGH :24 WAS DRAWN INCORRECTLY,HAVE ORDERED REPEAT WBC:TRENDING DOWNWARD,10.5 PATIENT IS RECEIVING AMIKACIN/VANCOMYCIN POST HD Objective - Vital Signs/Intake and Output Vital Signs (last 24 hours): Temp Pulse Resp BP Pulse Ox 98.1 F 85 18 105/67 100 11/27/18 19:14 11/27/18 19:14 11/27/18 19:14 11/27/18 19:14 11/27/18 19:14 - Medications Medications: Current Medications Epoetin Mitchell (Procrit) 10,000 unit IV MWF [facility] Last Admin: 11/26/18 09:09 Dose: 10,000 unit Glipizide (Glucotrol) 10 mg PO BID [facility] Last Admin: 11/27/18 17:25 Dose: 10 mg Heparin Sodium (Porcine) (Heparin) 5,000 units SC Q8 [facility]; Protocol Last Admin: 11/27/18 17:26 Dose: 5,000 units Vancomycin HCl 1 gm/ Sodium (Chloride) 250 mls @ 125 mls/hr IVPB MWF [facility]; Protocol Last Admin: 11/26/18 09:08 Dose: 125 mls/hr Amikacin Sulfate 500 mg/ (Sodium Chloride) 102 mls @ 101.185 mls/hr IVPB F [facility]; Protocol Insulin Human Lispro (Humalog) 0 units SC ACHS [facility]; Protocol Last Admin: 11/27/18 17:27 Dose: 4 units Lactic Acid (Lac-Hydrin 12% Lotion (225 G)) 1 applic TOP DAILY [facility] Last Admin: 11/27/18 09:54 Dose: 1 applic Loperamide HCl (Imodium) 2 mg PO Q6 PRN PRN Reason: Diarrhea Losartan Potassium (Cozaar) 50 mg PO QPM [facility] Last Admin: 11/26/18 19:28 Dose: 50 mg Metoclopramide HCl (Reglan) 10 mg PO DAILY [facility] Last Admin: 11/27/18 09:58 Dose: 10 mg Metoprolol Tartrate (Lopressor) 12.5 mg PO BID [facility] Last Admin: 11/27/18 17:27 Dose: 12.5 mg Pantoprazole Sodium (Protonix Ec Tab) 40 mg PO DAILY [facility] Last Admin: 11/27/18 09:58 Dose: 40 mg Sitagliptin Phosphate (Januvia) 25 mg PO DAILY [facility] Last Admin: 11/27/18 09:55 Dose: 25 mg Tobramycin/Dexamethasone (Tobradex Opht Susp) 2 drop OU Q4 [facility] Last Admin: 11/27/18 17:24 Dose: 2 drop Vitamin B Complex/Vit C/Folic Acid (Nephro-Elsa) 1 tab PO DAILY [facility] Last Admin: 11/27/18 09:58 Dose: 1 tab - Labs Labs: 11/27/18 04:45 11/27/18 04:45 PT 15.1 Seconds (9.8-13.1) H 11/11/18 09:53 INR 1.3 11/11/18 09:53 APTT 30.8 Seconds (25.6-37.1) 11/11/18 15:00
[2018-11-28] MEDS: Dexamethasone/Tobramycin Ophth Susp OU SCH ×6 (01:02→21:11)
[2018-11-28 05:58] LABS: HEMOGLOBIN 9.3 g/dL (12.0-18.0); MEAN CELL VOLUME 76.5 fl (80.0-94.0); MEAN CORPUSCULAR HEMOGLOBIN 23.8 pg (27.0-31.0); MEAN CORPUSCULAR HGB CONC 31.2 g/dL (33.0-37.0); RBC 3.92 Mil/uL (4.40-5.90); RED CELL DISTRIBUTION WIDTH 20.4 % (11.5-14.5); WHITE BLOOD COUNT 11.3 K/uL (4.8-10.8)
[2018-11-28 06:15] LABS: ALB/GLOB RATIO 0.8 (1.0-2.1); CALCIUM 8.6 mg/dL (8.4-10.2)
--- NOTE | 2018-11-28 07:38 | CP.PCM.PN ---
Subjective - Date & Time of Evaluation Date of Evaluation: 11/28/18 Time of Evaluation: 07:52 - Subjective Subjective: Gen Sx: Dr Beck Pt S&E. ASHLEY. Remains afebrile. On Abx in conjunction with dialysis. Packing changed at bedside. Objective - Vital Signs/Intake and Output Vital Signs (last 24 hours): Temp Pulse Resp BP Pulse Ox 98.7 F 95 H 20 120/71 100 11/28/18 07:34 11/28/18 07:34 11/28/18 07:34 11/28/18 07:34 11/28/18 07:34 - Medications Medications: Current Medications Epoetin Mitchell (Procrit) 10,000 unit IV MWF [facility] Last Admin: 11/26/18 09:09 Dose: 10,000 unit Glipizide (Glucotrol) 10 mg PO BID [facility] Last Admin: 11/27/18 17:25 Dose: 10 mg Heparin Sodium (Porcine) (Heparin) 5,000 units SC Q8 [facility]; Protocol Last Admin: 11/28/18 01:02 Dose: 5,000 units Vancomycin HCl 1 gm/ Sodium (Chloride) 250 mls @ 125 mls/hr IVPB MWF [facility]; Protocol Last Admin: 11/26/18 09:08 Dose: 125 mls/hr Amikacin Sulfate 500 mg/ (Sodium Chloride) 102 mls @ 101.185 mls/hr IVPB MWF [facility]; Protocol Insulin Human Lispro (Humalog) 0 units SC ACHS [facility]; Protocol Last Admin: 11/27/18 22:00 Dose: Not Given Lactic Acid (Lac-Hydrin 12% Lotion (225 G)) 1 applic TOP DAILY [facility] Last Admin: 11/27/18 09:54 Dose: 1 applic Loperamide HCl (Imodium) 2 mg PO Q6 PRN PRN Reason: Diarrhea Losartan Potassium (Cozaar) 50 mg PO QPM [facility] Last Admin: 11/27/18 19:26 Dose: 50 mg Metoclopramide HCl (Reglan) 10 mg PO DAILY [facility] Last Admin: 11/27/18 09:58 Dose: 10 mg Metoprolol Tartrate (Lopressor) 12.5 mg PO BID [facility] Last Admin: 11/27/18 17:27 Dose: 12.5 mg Pantoprazole Sodium (Protonix Ec Tab) 40 mg PO DAILY [facility] Last Admin: 11/27/18 09:58 Dose: 40 mg Sitagliptin Phosphate (Januvia) 25 mg PO DAILY [facility] Last Admin: 11/27/18 09:55 Dose: 25 mg Tobramycin/Dexamethasone (Tobradex Opht Susp) 2 drop OU Q4 [facility] Last Admin: 11/28/18 05:50 Dose: 2 drop Vitamin B Complex/Vit C/Folic Acid (Nephro-Elsa) 1 tab PO DAILY [facility] Last Admin: 11/27/18 09:58 Dose: 1 tab - Labs Labs: 11/28/18 05:47 11/28/18 05:47 PT 15.1 Seconds (9.8-13.1) H 11/11/18 09:53 INR 1.3 11/11/18 09:53 APTT 30.8 Seconds (25.6-37.1) 11/11/18 15:00 - Constitutional Appears: Non-toxic, No Acute Distress - ENT Exam ENT Exam: Mucous Membranes Moist - Respiratory Exam Respiratory Exam: absent: Respiratory Distress - Cardiovascular Exam Cardiovascular Exam: absent: Tachycardia - GI/Abdominal Exam GI & Abdominal Exam: Soft. absent: Distended, Tenderness Additional comments: midline incision with less drainage, now serous. Packing changed. Assessment and Plan - Assessment and Plan (Free Text) Assessment: 47M s/p small bowel resection, now with midline infx responding well to abx and packing changes Plan: clear for d/c from surgery with VNS for daily wound care d/w Dr Kiran Sifuentes, PGY4
[2018-11-28] MEDS: Insulin Lispro (humaLOG) 100 Units/ml Inj SC SCH ×4 (08:22→23:10)
--- NOTE | 2018-11-28 08:54 | CP.PCM.PN ---
<Yana Gibbons - Last Filed: 11/28/18 08:51> Subjective - Date & Time of Evaluation Date of Evaluation: 11/28/18 Time of Evaluation: 07:30 - Subjective Subjective: Pt seen/examined this am w/ Dr. Lake. No acute events overnight; Denies trouble breathing, chest pains. Vanco trough this am wnl, continues to get abx with dialysis. Due for HD today. Abdominal wound dressing changes by surg. Objective - Vital Signs/Intake and Output Vital Signs (last 24 hours): Temp Pulse Resp BP Pulse Ox 98.7 F 95 H 20 120/71 100 11/28/18 07:34 11/28/18 07:34 11/28/18 07:34 11/28/18 07:34 11/28/18 07:34 - Medications Medications: Current Medications Epoetin Mitchell (Procrit) 10,000 unit IV F [facility] Last Admin: 11/26/18 09:09 Dose: 10,000 unit Glipizide (Glucotrol) 10 mg PO BID [facility] Last Admin: 11/27/18 17:25 Dose: 10 mg Heparin Sodium (Porcine) (Heparin) 5,000 units SC Q8 [facility]; Protocol Last Admin: 11/28/18 01:02 Dose: 5,000 units Vancomycin HCl 1 gm/ Sodium (Chloride) 250 mls @ 125 mls/hr IVPB F [facility]; Protocol Last Admin: 11/26/18 09:08 Dose: 125 mls/hr Amikacin Sulfate 500 mg/ (Sodium Chloride) 102 mls @ 101.185 mls/hr [place] [facility] Protocol Insulin Human Lispro (Humalog) 0 units SC ACHS [facility]; Protocol Last Admin: 11/28/18 08:22 Dose: Not Given Lactic Acid (Lac-Hydrin 12% Lotion (225 G)) 1 applic TOP DAILY [facility] Last Admin: 11/27/18 09:54 Dose: 1 applic Loperamide HCl (Imodium) 2 mg PO Q6 PRN PRN Reason: Diarrhea Losartan Potassium (Cozaar) 50 mg PO QPM [facility] Last Admin: 11/27/18 19:26 Dose: 50 mg Metoclopramide HCl (Reglan) 10 mg PO DAILY [facility] Last Admin: 11/27/18 09:58 Dose: 10 mg Metoprolol Tartrate (Lopressor) 12.5 mg PO BID [facility] Last Admin: 11/27/18 17:27 Dose: 12.5 mg Pantoprazole Sodium (Protonix Ec Tab) 40 mg PO DAILY [facility] Last Admin: 11/27/18 09:58 Dose: 40 mg Sitagliptin Phosphate (Januvia) 25 mg PO DAILY [facility] Last Admin: 11/27/18 09:55 Dose: 25 mg Tobramycin/Dexamethasone (Tobradex Opht Susp) 2 drop OU Q4 [facility] Last Admin: 11/28/18 05:50 Dose: 2 drop Vitamin B Complex/Vit C/Folic Acid (Nephro-Elsa) 1 tab PO DAILY [facility] Last Admin: 11/27/18 09:58 Dose: 1 tab - Labs Labs: 11/28/18 05:47 11/28/18 05:47 PT 15.1 Seconds (9.8-13.1) H 11/11/18 09:53 INR 1.3 11/11/18 09:53 APTT 30.8 Seconds (25.6-37.1) 11/11/18 15:00 - Constitutional Appears: No Acute Distress - Head Exam Head Exam: ATRAUMATIC - Eye Exam Eye Exam: Normal appearance - ENT Exam ENT Exam: Mucous Membranes Moist - Neck Exam Neck Exam: Full ROM - Respiratory Exam Respiratory Exam: NORMAL BREATHING PATTERN - Cardiovascular Exam Cardiovascular Exam: REGULAR RHYTHM - GI/Abdominal Exam GI & Abdominal Exam: Soft Additional comments: obese midline scar- decreased amount of erythema; dressing in place - clean and dry; dressing lifted, packing in place. - Extremities Exam Extremities Exam: absent: Calf Tenderness - Neurological Exam Neurological Exam: Alert, Oriented x3 - Skin Skin Exam: Dry, Warm Assessment and Plan - Assessment and Plan (Free Text) Assessment: 47 yo M with ESRD (HD ), s/p significant bowel resection due to ischemic bowel; POD 17; tolerating diet and having BMs; with proteus mirabilis in wound culture. Plan: - POD 17, s/p small bowel resection; diet advanced, tolerating - Abx - ID consult Dr. Elam; wound culture grew proteus mirabilis, started on amikacin post dialysis, recs appreciated. Continuing w/ vanco post dialysis. - Surg on board due to bowel resection, wound cultures - stable from surg perspective - ESRD - HD MWF - due today - BP control w/ losartan - Insulin coverage scale and hypoglycemia protocol - Protonix - Heparin <AleksandraJoel K - Last Filed: 11/28/18 12:45> Objective - Vital Signs/Intake and Output Vital Signs (last 24 hours): Temp Pulse Resp BP Pulse Ox 99 F 95 H 20 124/79 97 11/28/18 12:06 11/28/18 12:06 11/28/18 12:06 11/28/18 12:06 11/28/18 12:06 - Medications Medications: Current Medications Epoetin Mitchell (Procrit) 10,000 unit IV MWF [facility] Last Admin: 11/28/18 09:36 Dose: 10,000 unit Glipizide (Glucotrol) 10 mg PO BID [facility] Last Admin: 11/28/18 09:37 Dose: 10 mg Heparin Sodium (Porcine) (Heparin) 5,000 units SC Q8 [facility]; Protocol Last Admin: 11/28/18 09:36 Dose: 5,000 units Vancomycin HCl 1 gm/ Sodium (Chloride) 250 mls @ 125 mls/hr [place]PB [facility] Protocol Last Admin: 11/28/18 12:18 Dose: 125 mls/hr Amikacin Sulfate 500 mg/ (Sodium Chloride) 102 mls @ 101.185 mls/hr IVPB F [facility]; Protocol Last Admin: 11/28/18 12:18 Dose: 101.185 mls/hr Insulin Human Lispro (Humalog) 0 units SC ACHS [facility]; Protocol Last Admin: 11/28/18 12:19 Dose: 2 units Lactic Acid (Lac-Hydrin 12% Lotion (225 G)) 1 applic TOP DAILY [facility] Last Admin: 11/28/18 09:35 Dose: 1 applic Loperamide HCl (Imodium) 2 mg PO Q6 PRN PRN Reason: Diarrhea Losartan Potassium (Cozaar) 50 mg PO QPM [facility] Last Admin: 11/27/18 19:26 Dose: 50 mg Metoclopramide HCl (Reglan) 10 mg PO DAILY [facility] Last Admin: 11/28/18 09:36 Dose: 10 mg Metoprolol Tartrate (Lopressor) 12.5 mg PO BID [facility] Last Admin: 11/28/18 09:38 Dose: Not Given Pantoprazole Sodium (Protonix Ec Tab) 40 mg PO DAILY [facility] Last Admin: 11/28/18 09:37 Dose: 40 mg Sitagliptin Phosphate (Januvia) 25 mg PO DAILY [facility] Last Admin: 11/28/18 09:37 Dose: 25 mg Tobramycin/Dexamethasone (Tobradex Opht Susp) 2 drop OU Q4 [facility] Last Admin: 11/28/18 12:18 Dose: 2 drop Vitamin B Complex/Vit C/Folic Acid (Nephro-Elsa) 1 tab PO DAILY [facility] Last Admin: 11/28/18 09:36 Dose: 1 tab - Labs Labs: 11/28/18 05:47 11/28/18 05:47 PT 15.1 Seconds (9.8-13.1) H 11/11/18 09:53 INR 1.3 11/11/18 09:53 APTT 30.8 Seconds (25.6-37.1) 11/11/18 15:00 Assessment and Plan - Assessment and Plan (Free Text) Plan: Patient was personally seen and examined by me in rounds with residents. Available labs and diagnostic data reviewed. Case, Patient's condition and management plan discussed with residents in [facility]. Agree with resident's progress note. Plan: As ordered.
--- NOTE | 2018-11-28 09:16 | CP.PCM.PN ---
Subjective - Date & Time of Evaluation Date of Evaluation: 11/28/18 Time of Evaluation: 09:13 - Subjective Subjective: General Surgery Pt seen and examined this AM. He denies having any abdominal pains. Tolerating diet. Due for HD today. He is upset today because he was told he should go to a subacute rehab and he doesn't want to go to any. He reports he just wants to go home and have a visiting nurse for his wound drsg changes. He also states th at his mom in one of the facilities and he never wants to return there. Labs and vitals noted. PE Gen: Pt laying down in NAD Skin: warm and dry. (+) erythematous/scabbed rash of varying sizes of bilateral LE, improving since admission Cardio: s1s2 RRR Lungs: CTA bilaterally Abd: Soft, NTND. Surgical incision with packing in center, (+) mild serosanguinous discharge, (-) odor. Surrounding erythema at incision edges improving Extr: (-) calf tenderness bilaterally. Right foot:partial amputation A/P POD 17 small bowel resection withanastomosis for ischemic bowel, incision wound infection Pt cleared for d/c from surgical standpoint ABX per ID post HD. Daily dressing change, small amount of packing to opening of open incision only (do not pack in incision) with dry gauze dressing on top. Objective - Vital Signs/Intake and Output Vital Signs (last 24 hours): Temp Pulse Resp BP Pulse Ox 98.7 F 95 H 20 120/71 100 11/28/18 07:34 11/28/18 07:34 11/28/18 07:34 11/28/18 07:34 11/28/18 07:34 - Medications Medications: Current Medications Epoetin Mitchell (Procrit) 10,[place] [facility] [place] Admin: 11/26/18 09:09 Dose: 10,000 unit Glipizide (Glucotrol) 10 mg PO BID [facility] Last Admin: 11/27/18 17:25 Dose: 10 mg Heparin Sodium (Porcine) (Heparin) 5,000 units SC Q8 [facility]; Protocol Last Admin: 11/28/18 01:02 Dose: 5,000 units Vancomycin HCl 1 gm/ Sodium (Chloride) 250 mls @ 125 mls/hr [place] [facility] [place] Protocol Last Admin: 11/26/18 09:08 Dose: 125 mls/hr Amikacin Sulfate 500 mg/ (Sodium Chloride) 102 mls @ 101.185 mls/hr IVPB MWF [facility]; Protocol Insulin Human Lispro (Humalog) 0 units SC ACHS [facility]; Protocol Last Admin: 11/28/18 08:22 Dose: Not Given Lactic Acid (Lac-Hydrin 12% Lotion (225 G)) 1 applic TOP DAILY [facility] Last Admin: 11/27/18 09:54 Dose: 1 applic Loperamide HCl (Imodium) 2 mg PO Q6 PRN PRN Reason: Diarrhea Losartan Potassium (Cozaar) 50 mg PO QPM [facility] Last Admin: 11/27/18 19:26 Dose: 50 mg Metoclopramide HCl (Reglan) 10 mg PO DAILY [facility] Last Admin: 11/27/18 09:58 Dose: 10 mg Metoprolol Tartrate (Lopressor) 12.5 mg PO BID [facility] Last Admin: 11/27/18 17:27 Dose: 12.5 mg Pantoprazole Sodium (Protonix Ec Tab) 40 mg PO DAILY [facility] Last Admin: 11/27/18 09:58 Dose: 40 mg Sitagliptin Phosphate (Januvia) 25 mg PO DAILY [facility] Last Admin: 11/27/18 09:55 Dose: 25 mg Tobramycin/Dexamethasone (Tobradex Opht Susp) 2 drop OU Q4 [facility] Last Admin: 11/28/18 05:50 Dose: 2 drop Vitamin B Complex/Vit C/Folic Acid (Nephro-Elsa) 1 tab PO DAILY [facility] Last Admin: 11/27/18 09:58 Dose: 1 tab - Labs Labs: 11/28/18 05:47 11/28/18 05:47 PT 15.1 Seconds (9.8-13.1) H 11/11/18 09:53 INR 1.3 11/11/18 09:53 APTT 30.8 Seconds (25.6-37.1) 11/11/18 15:00
[2018-11-28] MEDS: Multivitamin Vitamin B Complex (Nephro-Vite) Tab PO SCH (09:36)
[2018-11-28] MEDS: EPOETIN ALFA 10,000 UNIT/ML ML IV SCH (09:36)
[2018-11-28] MEDS: Pantoprazole 40 mg EC Tab PO SCH (09:37)
--- NOTE | 2018-11-28 11:50 | CP.PCM.PN ---
Subjective - Date & Time of Evaluation Date of Evaluation: 11/28/18 Time of Evaluation: 11:48 - Subjective Subjective: Dialysis note He was seen on hemodialysis patient is tolerating well. He appears to be comfortable. Vital signs noted to be stable. Objective - Vital Signs/Intake and Output Vital Signs (last 24 hours): Temp Pulse Resp BP Pulse Ox 98.7 F 95 H 20 120/71 100 11/28/18 07:34 11/28/18 07:34 11/28/18 07:34 11/28/18 07:34 11/28/18 07:34 - Medications Medications: Current Medications Epoetin Mitchell (Procrit) 10,000 unit IV MWF [facility] Last Admin: 11/28/18 09:36 Dose: 10,000 unit Glipizide (Glucotrol) 10 mg PO BID [facility] Last Admin: 11/28/18 09:37 Dose: 10 mg Heparin Sodium (Porcine) (Heparin) 5,000 units SC Q8 [facility]; Protocol Last Admin: 11/28/18 09:36 Dose: 5,000 units Vancomycin HCl 1 gm/ Sodium (Chloride) 250 mls @ 125 mls/hr IVPB MWF [facility]; Protocol Last Admin: 11/26/18 09:08 Dose: 125 mls/hr Amikacin Sulfate 500 mg/ (Sodium Chloride) 102 mls @ 101.185 mls/hr IVPB F [facility]; Protocol Insulin Human Lispro (Humalog) 0 units SC ACHS [facility]; Protocol Last Admin: 11/28/18 08:22 Dose: Not Given Lactic Acid (Lac-Hydrin 12% Lotion (225 G)) 1 applic TOP DAILY [facility] Last Admin: 11/28/18 09:35 Dose: 1 applic Loperamide HCl (Imodium) 2 mg PO Q6 PRN PRN Reason: Diarrhea Losartan Potassium (Cozaar) 50 mg PO QPM [facility] Last Admin: 11/27/18 19:26 Dose: 50 mg Metoclopramide HCl (Reglan) 10 mg PO DAILY [facility] Last Admin: 11/28/18 09:36 Dose: 10 mg Metoprolol Tartrate (Lopressor) 12.5 mg PO BID [facility] Last Admin: 11/28/18 09:38 Dose: Not Given Pantoprazole Sodium (Protonix Ec Tab) 40 mg PO DAILY [facility] Last Admin: 12/28/18 09:37 Dose: 40 mg Sitagliptin Phosphate (Januvia) 25 mg PO DAILY [facility] Last Admin: 11/28/18 09:37 Dose: 25 mg Tobramycin/Dexamethasone (Tobradex Opht Susp) 2 drop OU Q4 [facility] Last Admin: 11/28/18 09:36 Dose: 2 drop Vitamin B Complex/Vit C/Folic Acid (Nephro-Elsa) 1 tab PO DAILY [facility] Last Admin: 11/28/18 09:36 Dose: 1 tab - Labs Labs: 11/28/18 05:47 11/28/18 05:47 PT 15.1 Seconds (9.8-13.1) H 11/11/18 09:53 INR 1.3 11/11/18 09:53 APTT 30.8 Seconds (25.6-37.1) 11/11/18 15:00 - Constitutional Appears: No Acute Distress - Eye Exam Eye Exam: Conjunctival injection - ENT Exam ENT Exam: Mucous Membranes Moist - Neck Exam Neck Exam: absent: Lymphadenopathy - Respiratory Exam Respiratory Exam: NORMAL BREATHING PATTERN. absent: Chest Wall Tenderness - Cardiovascular Exam Cardiovascular Exam: absent: Gallop, JVD, Rubs - GI/Abdominal Exam GI & Abdominal Exam: Soft, Normal Bowel Sounds - Extremities Exam Extremities Exam: absent: Calf Tenderness - Back Exam Back Exam: absent: CVA tenderness (L), CVA tenderness (R) - Neurological Exam Neurological Exam: Alert - Psychiatric Exam Psychiatric exam: Normal Affect - Skin Skin Exam: absent: Cyanosis Assessment and Plan (1) ESRD (end stage renal disease) on dialysis Assessment & Plan: End-stage renal disease patient on maintenance dialysis Saturday. S/P emergency surgery regarding small bowel resection 11/11 Leukocytosis Patient status post right upper arm transposition for AV fistula about few weeks ago in another hospital in Severe anemia In addition PMHx - T2DM, acute CVA, ESRD on HD, HTN, PSHx - Cranial surgery for CVA, EGD last 09/18 with LA grade C erosive esophagitis, gastritis and moderate stenosis at pylorus (09/2018), Anemia, HTN, HLD, NIDDM, gastroparesis, transmetatarsal amputation on the right foot The plan He was seen on hemodialysis now Discussed with the dialysis nurse at the bedside Vital signs stable Ultrafiltration of about 2500 cc as tolerated Status: Acute (2) GI bleed Status: Acute (3) Ischemia, bowel Status: Acute
--- NOTE | 2018-11-28 17:07 | CP.PCM.PN ---
Subjective - Date & Time of Evaluation Date of Evaluation: 11/28/18 Time of Evaluation: 17:05 - Subjective Subjective: I D NOTE WBC:11 ,MINIMAL ELEVATION FRM PREVIOUS DAY VANCO TROUGH IS 9 CONTINUE AMIKACIN/VANCOMYCIN POST HD POSSIBLE F/U CT SCAN PER SURGERY Objective - Vital Signs/Intake and Output Vital Signs (last 24 hours): Temp Pulse Resp BP Pulse Ox 98.1 F 96 H 20 112/68 98 11/28/18 15:50 11/28/18 15:50 11/28/18 15:50 11/28/18 15:50 11/28/18 15:50 - Medications Medications: Current Medications Epoetin Mitchell (Procrit) 10,000 unit IV [facility] Last Admin: 11/28/18 09:36 Dose: 10,000 unit Glipizide (Glucotrol) 10 mg PO BID [facility] Last Admin: 11/28/18 09:37 Dose: 10 mg Heparin Sodium (Porcine) (Heparin) 5,000 units SC Q8 [facility]; Protocol Last Admin: 11/28/18 09:36 Dose: 5,000 units Vancomycin HCl 1 gm/ Sodium (Chloride) 250 mls @ 125 mls/hr IVPB F [facility]; Protocol Last Admin: 11/28/18 12:18 Dose: 125 mls/hr Amikacin Sulfate 500 mg/ (Sodium Chloride) 102 mls @ 101.185 mls/hr IVPB F [facility]; Protocol Last Admin: 11/28/18 12:18 Dose: 101.185 mls/hr Insulin Human Lispro (Humalog) 0 units SC ACHS [facility]; Protocol Last Admin: 11/28/18 12:19 Dose: 2 units Lactic Acid (Lac-Hydrin 12% Lotion (225 G)) 1 applic TOP DAILY [facility] Last Admin: 11/28/18 09:35 Dose: 1 applic Loperamide HCl (Imodium) 2 mg PO Q6 PRN PRN Reason: Diarrhea Losartan Potassium (Cozaar) 50 mg PO QPM [facility] Last Admin: 11/27/18 19:26 Dose: 50 mg Metoclopramide HCl (Reglan) 10 mg PO DAILY [facility] Last Admin: 11/28/18 09:36 Dose: 10 mg Metoprolol Tartrate (Lopressor) 12.5 mg PO BID [facility] Last Admin: 11/28/18 09:38 Dose: Not Given Pantoprazole Sodium (Protonix Ec Tab) 40 mg PO DAILY [facility] Last Admin: 11/28/18 09:37 Dose: 40 mg Sitagliptin Phosphate (Januvia) 25 mg PO DAILY [facility] Last Admin: 11/28/18 09:37 Dose: 25 mg Tobramycin/Dexamethasone (Tobradex Opht Susp) 2 drop OU Q4 [facility] Last Admin: 11/28/18 12:18 Dose: 2 drop Vitamin B Complex/Vit C/Folic Acid (Nephro-Elsa) 1 tab PO DAILY [facility] Last Admin: 11/28/18 09:36 Dose: 1 tab - Labs Labs: 11/28/18 05:47 11/28/18 05:47 PT 15.1 Seconds (9.8-13.1) H 11/11/18 09:53 INR 1.3 11/11/18 09:53 APTT 30.8 Seconds (25.6-37.1) 11/11/18 15:00
[2018-11-29] MEDS: Dexamethasone/Tobramycin Ophth Susp OU SCH ×6 (02:15→21:46)
--- NOTE | 2018-11-29 06:17 | CP.PCM.PN ---
Subjective - Date & Time of Evaluation Date of Evaluation: 11/29/18 Time of Evaluation: 06:16 - Subjective Subjective: SURGERY NOTE FOR DR. MARTIN 47M seen and examined at bedside. Patient status quo, no acute events, tolerating diet and having bowel function. Objective - Vital Signs/Intake and Output Vital Signs (last 24 hours): Temp Pulse Resp BP Pulse Ox 98.5 F 94 H 18 111/63 99 11/29/18 04:53 11/29/18 04:53 11/29/18 04:53 11/29/18 04:53 11/29/18 04:53 - Medications Medications: Current Medications Epoetin Mitchell (Procrit) 10,000 unit IV MWF [facility] Last Admin: 11/28/18 09:36 Dose: 10,000 unit Glipizide (Glucotrol) 10 mg PO BID [facility] Last Admin: 11/28/18 17:52 Dose: 10 mg Heparin Sodium (Porcine) (Heparin) 5,000 units SC Q8 [facility]; Protocol Last Admin: 11/29/18 02:16 Dose: 5,000 units Vancomycin HCl 1 gm/ Sodium (Chloride) 250 mls @ 125 mls/hr IVPB F [facility]; Protocol Last Admin: 11/28/18 12:18 Dose: 125 mls/hr Amikacin Sulfate 500 mg/ (Sodium Chloride) 102 mls @ 101.185 mls/hr IVPB F [facility]; Protocol Last Admin: 11/28/18 12:18 Dose: 101.185 mls/hr Insulin Human Lispro (Humalog) 0 units SC ACHS [facility]; Protocol Last Admin: 11/28/18 23:10 Dose: Not Given Lactic Acid (Lac-Hydrin 12% Lotion (225 G)) 1 applic TOP DAILY [facility] Last Admin: 11/28/18 09:35 Dose: 1 applic Loperamide HCl (Imodium) 2 mg PO Q6 PRN PRN Reason: Diarrhea Losartan Potassium (Cozaar) 50 mg PO QPM [facility] Last Admin: 11/28/18 17:52 Dose: 50 mg Metoclopramide HCl (Reglan) 10 mg PO DAILY [facility] Last Admin: 11/28/18 09:36 Dose: 10 mg Metoprolol Tartrate (Lopressor) 12.5 mg PO BID [facility] Last Admin: 11/28/18 17:52 Dose: 12.5 mg Pantoprazole Sodium (Protonix Ec Tab) 40 mg PO DAILY [facility] Last Admin: 11/28/18 09:37 Dose: 40 mg Sitagliptin Phosphate (Januvia) 25 mg PO DAILY [facility] Last Admin: 11/28/18 09:37 Dose: 25 mg Tobramycin/Dexamethasone (Tobradex Opht Susp) 2 drop OU Q4 [facility] Last Admin: 11/29/18 05:48 Dose: Not Given Vitamin B Complex/Vit C/Folic Acid (Nephro-Elsa) 1 tab PO DAILY [facility] Last Admin: 11/28/18 09:36 Dose: 1 tab - Labs Labs: 11/28/18 05:47 11/28/18 05:47 PT 15.1 Seconds (9.8-13.1) H 11/11/18 09:53 INR 1.3 11/11/18 09:53 APTT 30.8 Seconds (25.6-37.1) 11/11/18 15:00 - Constitutional Appears: Non-toxic, No Acute Distress - ENT Exam ENT Exam: Mucous Membranes Moist - Respiratory Exam Respiratory Exam: Clear to Ausculation Bilateral, NORMAL BREATHING PATTERN - Cardiovascular Exam Cardiovascular Exam: REGULAR RHYTHM, +S1, +S2 - GI/Abdominal Exam GI & Abdominal Exam: Soft. absent: Distended, Firm, Guarding, Rigid, Tenderness, Rebound Additional comments: midline wound with packing has purulent drainage which is decreasing - Neurological Exam Neurological Exam: Alert, Awake Assessment and Plan - Assessment and Plan (Free Text) Assessment: 47M s/p exploratory laparotomy with small bowel resection POD18 complicated by w ound infection Plan: - continue diet - continue wound management - Antibiotics per ID for wound culture -Further recs discuss with Dr. Casa Hodges, PGY3
[2018-11-29 06:54] LABS: MEAN CELL VOLUME 77.4 fl (80.0-94.0); MEAN CORPUSCULAR HEMOGLOBIN 24.1 pg (27.0-31.0); MEAN CORPUSCULAR HGB CONC 31.1 g/dL (33.0-37.0); RBC 3.76 Mil/uL (4.40-5.90); RED CELL DISTRIBUTION WIDTH 20.3 % (11.5-14.5); WHITE BLOOD COUNT 10.4 K/uL (4.8-10.8)
[2018-11-29 07:15] LABS: ALB/GLOB RATIO 0.8 (1.0-2.1); ALBUMIN 3.1 g/dL (3.5-5.0); CALCIUM 8.5 mg/dL (8.4-10.2)
[2018-11-29] MEDS: Insulin Lispro (humaLOG) 100 Units/ml Inj SC SCH ×4 (07:45→21:46)
--- NOTE | 2018-11-29 08:22 | CP.PCM.PN ---
Subjective - Date & Time of Evaluation Date of Evaluation: 11/29/18 Time of Evaluation: 08:21 - Subjective Subjective: General Surgery Pt seen and examined this AM. He denies having any abdominal pain, Tolerating diet. Afebrile. Had HD yesterday. Pt would like to go home with visiting nurse services. Incision drsg changed this AM by secretary to the vice president. Labs and vitals noted. PE Gen: Pt laying down in NAD Skin: warm and dry. (+) erythematous/scabbed rash of varying sizes of bilateral LE, improving since admission Cardio: s1s2 RRR Lungs: CTA bilaterally Abd: Soft, NTND. Surgical incision with packing in center, (+) mild serosanguinous discharge on drsg, (-) odor. Surrounding erythema at incision edges resolved. (-) induration. Extr: (-) calf tenderness bilaterally. Right foot:partial amputation A/P POD 18 small bowel resection with anastomosis for ischemic bowel, incision wound infection Pt cleared for d/c from surgical standpoint ABX per ID post HD. Daily dressing change, small amount of packing to opening of open incision only (do not pack in incision) with dry gauze dressing on top. Objective - Vital Signs/Intake and Output Vital Signs (last 24 hours): Temp Pulse Resp BP Pulse Ox 98.2 F 95 H 18 121/75 100 11/29/18 08:08 11/29/18 08:08 11/29/18 08:08 11/29/18 08:08 11/29/18 08:08 - Medications Medications: Current Medications Epoetin Mitchell (Procrit) 10,000 unit IV [facility] [place] Last Admin: 11/28/18 09:36 Dose: 10,000 unit Glipizide (Glucotrol) 10 mg PO BID [facility] Last Admin: 11/28/18 17:52 Dose: 10 mg Heparin Sodium (Porcine) (Heparin) 5,000 units SC Q8 [facility]; Protocol Last Admin: 11/29/18 02:16 Dose: 5,000 units Vancomycin HCl 1 gm/ Sodium (Chloride) 250 mls @ 125 mls/hr IVPB [facility] [place]; Protocol Last Admin: 11/28/18 12:18 Dose: 125 mls/hr Amikacin Sulfate 500 mg/ (Sodium Chloride) 102 mls @ 101.185 mls/hr IVPB [facility] [place]; Protocol Last Admin: 11/28/18 12:18 Dose: 101.185 mls/hr Insulin Human Lispro (Humalog) 0 units SC ACHS [facility]; Protocol Last Admin: 11/28/18 23:10 Dose: Not Given Lactic Acid (Lac-Hydrin 12% Lotion (225 G)) 1 applic TOP DAILY [facility] Last Admin: 11/28/18 09:35 Dose: 1 applic Loperamide HCl (Imodium) 2 mg PO Q6 PRN PRN Reason: Diarrhea Losartan Potassium (Cozaar) 50 mg PO QPM [facility] Last Admin: 11/28/18 17:52 Dose: 50 mg Metoclopramide HCl (Reglan) 10 mg PO DAILY [facility] Last Admin: 11/28/18 09:36 Dose: 10 mg Metoprolol Tartrate (Lopressor) 12.5 mg PO BID [facility] Last Admin: 11/28/18 17:52 Dose: 12.5 mg Pantoprazole Sodium (Protonix Ec Tab) 40 mg PO DAILY [facility] Last Admin: 11/28/18 09:37 Dose: 40 mg Sitagliptin Phosphate (Januvia) 25 mg PO DAILY [facility] Last Admin: 11/28/18 09:37 Dose: 25 mg Tobramycin/Dexamethasone (Tobradex Opht Susp) 2 drop OU Q4 [facility] Last Admin: 11/29/18 05:48 Dose: Not Given Vitamin B Complex/Vit C/Folic Acid (Nephro-Elsa) 1 tab PO DAILY [facility] Last Admin: 11/28/18 09:36 Dose: 1 tab - Labs Labs: 11/29/18 06:43 11/29/18 06:43 PT 15.1 Seconds (9.8-13.1) H 11/11/18 09:53 INR 1.3 11/11/18 09:53 APTT 30.8 Seconds (25.6-37.1) 11/11/18 15:00
[2018-11-29] MEDS: Multivitamin Vitamin B Complex (Nephro-Vite) Tab PO SCH (09:22)
[2018-11-29] MEDS: Pantoprazole 40 mg EC Tab PO SCH (09:22)
--- NOTE | 2018-11-29 13:39 | CP.PCM.PN ---
Subjective - Date & Time of Evaluation Date of Evaluation: 11/29/18 Time of Evaluation: 13:37 - Subjective Subjective: Nephrology Consultation Note: Assessment: Stable s/o small bowel resection Diabetic chronic Kidney Disease (E11.22) Hypertensive Chronic Kidney Disease (I12.0) End stage renal disease (N18.6) dependence on hemodialysis (Z99.2) (MWF) via pc Anemia (D64.9), Hyperphosphatemia (E83.39), Secondary Hyperparathyroidism (E21.1), HTN (I12.0) Plan: HD MWF with Nephrovite 1 tab/day. PRBC as needed for anemia. Continue YURIY with dialysis phos level stable bp stable Glycemic control, Dialysis consistent diet. Further work up/management as per primary team Dose meds/antibiotics for ESRD status. Avoid fleets enema/magnesium based laxatives. surgery following S: seen and examined no complaints Physical Examination: General Appearance: Comfortable, in no acute respiratory distress, co-operative . obese Vitals reviewed and noted as below Head; Atraumatic, normocephalic ENT: no ulcers no thrush. Tongue is midline. Oropharynx: no rash or ulcers. EYES: Pupils are equal, round and reactive to light accommodation. Eye muscles and extraocular movement intact. Sclera is anicteric. Neck; supple no lymphadenopathy, no thyromegaly or bruit Lungs: Normal respiratory rate/effort. Breath sounds bilateral equal and clear Heart: Normal rate. s1s2 normal. No rub or gallop. Extremities: no edema. No varicose veins. Rt TMA Neurological: Patient is alert, awake and oriented to person, place and time. No focal deficit. Strength bilateral appropriate and equal Skin: Warm and dry. Normal turgor. has rash RLE. Palpitation: Normal elasticity for age Abdomen: Abdomen is soft. Bowel sounds +. There is no abdominal tenderness, no g uarding/rigidity or organomegaly. dressing on abdomen Psych: normal insight and normal affect/mood MSK: no joint tenderness or swelling. Digits and nails normal, no deformity : kidney or bladder not palpable Labs/imaging reviewed. Past medical history, past surgical history, family history, social history, allergy reviewed and noted as below Family Hx: no hx of CKD. Non contributory Objective - Vital Signs/Intake and Output Vital Signs (last 24 hours): Temp Pulse Resp BP Pulse Ox 98.6 F 94 H 18 101/68 97 11/29/18 12:16 11/29/18 12:16 11/29/18 12:16 11/29/18 12:16 11/29/18 12:16 - Medications Medications: Current Medications Epoetin Mitchell (Procrit) 10,000 unit IV MWF [facility] Last Admin: 11/28/18 09:36 Dose: 10,000 unit Glipizide (Glucotrol) 10 mg PO BID [facility] Last Admin: 11/29/18 09:22 Dose: 10 mg Heparin Sodium (Porcine) (Heparin) 5,000 units SC Q8 [facility]; Protocol Last Admin: 11/29/18 09:20 Dose: 5,000 units Vancomycin HCl 1 gm/ Sodium (Chloride) 250 mls @ 125 mls/hr IVPB F [facility]; Protocol Last Admin: 11/28/18 12:18 Dose: 125 mls/hr Amikacin Sulfate 500 mg/ (Sodium Chloride) 102 mls @ 101.185 mls/hr IVPB [facility] [place]; Protocol Last Admin: 11/28/18 12:18 Dose: 101.185 mls/hr Insulin Human Lispro (Humalog) 0 units SC ACHS [facility]; Protocol Last Admin: 11/29/18 12:36 Dose: 4 units Lactic Acid (Lac-Hydrin 12% Lotion (225 G)) 1 applic TOP DAILY [facility] Last Admin: 11/29/18 09:20 Dose: 1 applic Loperamide HCl (Imodium) 2 mg PO Q6 PRN PRN Reason: Diarrhea Losartan Potassium (Cozaar) 50 mg PO QPM [facility] Last Admin: 11/28/18 17:52 Dose: 50 mg Metoclopramide HCl (Reglan) 10 mg PO DAILY [facility] Last Admin: 11/29/18 09:23 Dose: 10 mg Metoprolol Tartrate (Lopressor) 12.5 mg PO BID [facility] Last Admin: 11/29/18 09:22 Dose: 12.5 mg Pantoprazole Sodium (Protonix Ec Tab) 40 mg PO DAILY [facility] Last Admin: 11/29/18 09:22 Dose: 40 mg Sitagliptin Phosphate (Januvia) 25 mg PO DAILY [facility] Last Admin: 11/29/18 09:22 Dose: 25 mg Tobramycin/Dexamethasone (Tobradex Opht Susp) 2 drop OU Q4 [facility] Last Admin: 11/29/18 12:38 Dose: 2 drop Vitamin B Complex/Vit C/Folic Acid (Nephro-Elsa) 1 tab PO DAILY [facility] Last Admin: 11/29/18 09:22 Dose: 1 tab - Labs Labs: 11/29/18 06:43 11/29/18 06:43 PT 15.1 Seconds (9.8-13.1) H 11/11/18 09:53 INR 1.3 11/11/18 09:53 APTT 30.8 Seconds (25.6-37.1) 11/11/18 15:00
[2018-11-30] MEDS: Dexamethasone/Tobramycin Ophth Susp OU SCH ×6 (01:05→21:40)
[2018-11-30] MEDS: Insulin Lispro (humaLOG) 100 Units/ml Inj SC SCH ×4 (08:33→21:37)
[2018-11-30] MEDS: Multivitamin Vitamin B Complex (Nephro-Vite) Tab PO SCH (08:34)
[2018-11-30] MEDS: Pantoprazole 40 mg EC Tab PO SCH (08:34)
--- NOTE | 2018-11-30 09:15 | CP.PCM.PN ---
Subjective - Date & Time of Evaluation Date of Evaluation: 11/30/18 Time of Evaluation: 09:14 - Subjective Subjective: General Surgery Pt seen and examined this AM. He denies having any abdominal pain. (-) N/V. He reports little ambulation. Dressing not yet changed today. Labs and vitals noted. No new labs today PE Gen: Pt laying down in NAD Skin: warm and dry. (+) erythematous/scabbed rash of varying sizes of bilateral LE, improving since admission Cardio: s1s2 RRR Lungs: CTA bilaterally Abd: Soft, NTND. (+) serosanguinous discharge on drsg, Surgical incision with packing in center, (-) odor. Surrounding erythema at incision edges resolved. (-) induration. Extr: (-) calf tenderness bilaterally. Right foot:partial amputation A/P POD 19 small bowel resection with anastomosis for ischemic bowel, incision wound infection Pt cleared for d/c from surgical standpoint Surgery signing off. ABX per ID post HD. Daily dressing changes by RN, leave small amount of packing to incision opening only to promote further drainage (do not pack in incision) with dry gauze dressing on top RN made aware Objective - Vital Signs/Intake and Output Vital Signs (last 24 hours): Temp Pulse Resp BP Pulse Ox 98.2 F 99 H 18 112/70 99 11/30/18 08:14 11/30/18 08:33 11/30/18 08:14 11/30/18 08:33 11/30/18 08:14 - Medications Medications: Current Medications Epoetin Mitchell (Procrit) 10,000 unit IV [facility] Last Admin: 11/28/18 09:36 Dose: 10,000 unit Glipizide (Glucotrol) 10 mg PO BID [facility] Last Admin: 11/30/18 08:32 Dose: 10 mg Heparin Sodium (Porcine) (Heparin) 5,000 units SC Q8 [facility]; Protocol Last Admin: 11/30/18 08:32 Dose: 5,000 units Vancomycin HCl 1 gm/ Sodium (Chloride) 250 mls @ 125 mls/hr IVPB [facility]; Protocol Last Admin: 11/28/18 12:18 Dose: 125 mls/hr Amikacin Sulfate 500 mg/ (Sodium Chloride) 102 mls @ 101.185 mls/hr IVPB [facility]; Protocol Last Admin: 11/28/18 12:18 Dose: 101.185 mls/hr Insulin Human Lispro (Humalog) 0 units SC ACHS [facility]; Protocol Last Admin: 11/30/18 08:33 Dose: Not Given Lactic Acid (Lac-Hydrin 12% Lotion (225 G)) 1 applic TOP DAILY [facility] Last Admin: 11/30/18 08:33 Dose: 1 applic Loperamide HCl (Imodium) 2 mg PO Q6 PRN PRN Reason: Diarrhea Losartan Potassium (Cozaar) 50 mg PO QPM [facility] Last Admin: 11/29/18 17:26 Dose: 50 mg Metoclopramide HCl (Reglan) 10 mg PO DAILY [facility] Last Admin: 11/30/18 08:34 Dose: 10 mg Metoprolol Tartrate (Lopressor) 12.5 mg PO BID [facility] Last Admin: 11/30/18 08:33 Dose: 12.5 mg Pantoprazole Sodium (Protonix Ec Tab) 40 mg PO DAILY [facility] Last Admin: 11/30/18 08:34 Dose: 40 mg Sitagliptin Phosphate (Januvia) 25 mg PO DAILY [facility] Last Admin: 11/30/18 08:33 Dose: 25 mg Tobramycin/Dexamethasone (Tobradex Opht Susp) 2 drop OU Q4 [facility] Last Admin: 11/30/18 08:34 Dose: 2 drop Vitamin B Complex/Vit C/Folic Acid (Nephro-Elsa) 1 tab PO DAILY [facility] Last Admin: 11/30/18 08:34 Dose: 1 tab - Labs Labs: 11/29/18 06:43 11/29/18 06:43 PT 15.1 Seconds (9.8-13.1) H 11/11/18 09:53 INR 1.3 11/11/18 09:53 APTT 30.8 Seconds (25.6-37.1) 11/11/18 15:00
--- NOTE | 2018-11-30 09:40 | PN ---
DATE: 11/30/2018 SUBJECTIVE: The patient was seen and examined. Interim events noted. Consults noted and appreciated. The patient remains in progressive care unit with telemetry monitoring. Feels okay. Denies any specific complaint. No chest pain. No shortness of breath. Abdominal pain resolved. Tolerating food very well. Diarrhea also is better. PHYSICAL EXAMINATION: GENERAL: The patient is in no acute distress. VITAL SIGNS: Stable. HEART EXAM: S1 and S2. Normal and regular. LUNGS: Good bilateral air exchange. ABDOMEN: The patient has midline scar with a small about 1-inch opening in middle with packing. No sign of acute abdomen. No guarding. No rigidity. No rebound. Bowel sounds are present and normal. EXTREMITY EXAM: The patient is status post amputation. No edema. No calf swelling. No tenderness. No acute ischemia. MASSAGE OPERATOR EXAM: Essentially unchanged. DIAGNOSTIC DATA: Diagnostic data reviewed. ASSESSMENT AND PLAN: Overall, the patient's general medical condition is stable and improving. Telemetry monitoring did not reveal any significant arrhythmia. Plan as ordered. Joel Lake MD
--- NOTE | 2018-11-30 17:41 | CP.PCM.PN ---
Subjective - Date & Time of Evaluation Date of Evaluation: 11/30/18 Time of Evaluation: 17:40 - Subjective Subjective: I D NOTE WBC:10.4 WOULD COTNUE POST HD ANTIBIOTIC COVERAGE THERE IS NO ORAL COVERAGE THAT CAN BE GIVEN IN REGARD TO PROTEUS WOULD HOPE TO HAVE FURTHER DECREASEV IN WBC WOULD CONSIDER CT SCAN OF ABDOMEN PRIOR TO DISCHARGE Objective - Vital Signs/Intake and Output Vital Signs (last 24 hours): Temp Pulse Resp BP Pulse Ox 98.5 F 90 18 143/72 99 11/30/18 16:26 11/30/18 17:30 11/30/18 16:26 11/30/18 17:30 11/30/18 16:26 - Medications Medications: Current Medications Epoetin Mitchell (Procrit) 10,000 unit IV [facility] Last Admin: 11/28/18 09:36 Dose: 10,000 unit Glipizide (Glucotrol) 10 mg PO BID [facility] Last Admin: 11/30/18 17:22 Dose: 10 mg Heparin Sodium (Porcine) (Heparin) 5,000 units SC Q8 [facility]; Protocol Last Admin: 11/30/18 17:22 Dose: 5,000 units Vancomycin HCl 1 gm/ Sodium (Chloride) 250 mls @ 125 mls/hr IVPB [facility]; Protocol Last Admin: 11/28/18 12:18 Dose: 125 mls/hr Amikacin Sulfate 500 mg/ (Sodium Chloride) 102 mls @ 101.185 mls/hr IVPB [facility]; Protocol Last Admin: 11/28/18 12:18 Dose: 101.185 mls/hr Insulin Human Lispro (Humalog) 0 units SC ACHS [facility]; Protocol Last Admin: 11/30/18 17:30 Dose: 2 units Lactic Acid (Lac-Hydrin 12% Lotion (225 G)) 1 applic TOP DAILY [facility] Last Admin: 11/30/18 08:33 Dose: 1 applic Loperamide HCl (Imodium) 2 mg PO Q6 PRN PRN Reason: Diarrhea Losartan Potassium (Cozaar) 50 mg PO QPM [facility] Last Admin: 11/30/18 17:20 Dose: 50 mg Metoclopramide HCl (Reglan) 10 mg PO DAILY [facility] Last Admin: 11/30/18 08:34 Dose: 10 mg Metoprolol Tartrate (Lopressor) 12.5 mg PO BID [facility] Last Admin: 11/30/18 17:30 Dose: 12.5 mg Pantoprazole Sodium (Protonix Ec Tab) 40 mg PO DAILY [facility] Last Admin: 11/30/18 08:34 Dose: 40 mg Sitagliptin Phosphate (Januvia) 25 mg PO DAILY [facility] Last Admin: 11/30/18 08:33 Dose: 25 mg Tobramycin/Dexamethasone (Tobradex Opht Susp) 2 drop OU Q4 [facility] Last Admin: 11/30/18 17:31 Dose: 2 drop Vitamin B Complex/Vit C/Folic Acid (Nephro-Elsa) 1 tab PO DAILY [facility] Last Admin: 11/30/18 08:34 Dose: 1 tab - Labs Labs: 11/29/18 06:43 11/29/18 06:43 PT 15.1 Seconds (9.8-13.1) H 11/11/18 09:53 INR 1.3 11/11/18 09:53 APTT 30.8 Seconds (25.6-37.1) 11/11/18 15:00
[2018-12-01] MEDS: Dexamethasone/Tobramycin Ophth Susp OU SCH ×6 (01:38→21:24)
[2018-12-01 05:26] LABS: HEMOGLOBIN 9.3 g/dL (12.0-18.0); MEAN CELL VOLUME 77.9 fl (80.0-94.0); MEAN CORPUSCULAR HEMOGLOBIN 24.1 pg (27.0-31.0); MEAN CORPUSCULAR HGB CONC 30.9 g/dL (33.0-37.0); RBC 3.85 Mil/uL (4.40-5.90); RED CELL DISTRIBUTION WIDTH 20.4 % (11.5-14.5); WHITE BLOOD COUNT 13.3 K/uL (4.8-10.8)
[2018-12-01 06:30] LABS: ALB/GLOB RATIO 0.7 (1.0-2.1); CALCIUM 8.5 mg/dL (8.4-10.2)
[2018-12-01] MEDS: Insulin Lispro (humaLOG) 100 Units/ml Inj SC SCH ×4 (08:30→22:17)
--- NOTE | 2018-12-01 08:47 | PN ---
DATE: 11/30/2018 SUBJECTIVE: The patient seen and examined. Interim events noted. Consults noted and appreciated. The patient remains in progressive care unit, on telemetry monitoring. Sleeping, arousable, feels okay. Denies any abdominal pain, nausea, vomiting, diarrhea, or constipation, any chest pain or shortness of breath. PHYSICAL EXAMINATION: GENERAL: The patient is in no acute distress. VITAL SIGNS: Stable. HEART: S1 and S2, normal, regular. LUNGS: Clear bilateral air exchange. ABDOMEN: Soft, nontender. The patient has a midline scar which is about 1 inch which is packed with packing. No sign of surrounding cellulitis. No sign of acute abdomen. No guarding. No rigidity. No rebound. Bowel sounds are plus and normal. EXTREMITIES: No edema. No calf swelling. No tenderness. No acute ischemia. CENTRAL NERVOUS SYSTEM: Essentially unchanged. DIAGNOSTIC DATA: Available diagnostic data reviewed. Telemetry monitoring does not reveal significant arrhythmias. ASSESSMENT AND PLAN: Overall, the patient's general medical condition is stable. The wound is healing. Plan as ordered. Joel Lake MD
--- NOTE | 2018-12-01 08:53 | PN ---
DATE: 11/29/2018 SUBJECTIVE: The patient seen and examined. Interim events noted. The patient remains in progressive care unit on telemetry monitoring. Awake, responsive, feels okay. Denies any chest pain, shortness of breath, abdominal pain, nausea, vomiting or diarrhea. Tolerating food very. PHYSICAL EXAMINATION: GENERAL: The patient is in no acute distress. VITAL SIGNS: Stable. HEART: S1 and S2 normal and regular. LUNGS: Good bilateral air exchange. ABDOMEN: Soft, nontender. The patient has midline scar which is open in the middle. Opening is getting smaller. The opening on lower end seems to be closed. No sign of acute abdomen. No guarding, no rigidity, no rebound. Bowel sounds are plus and normal. EXTREMITIES: No edema, no calf swelling, no tenderness. No acute ischemia. CENTRAL NERVOUS SYSTEM: Exam is essentially unchanged. DIAGNOSTIC DATA: Available diagnostic data reviewed. Telemetry monitoring does not show significant arrhythmias. Overall, the patient's general medical condition is stable and improving. PLAN: As ordered. Joel Lake MD
[2018-12-01] MEDS: Multivitamin Vitamin B Complex (Nephro-Vite) Tab PO SCH (09:57)
[2018-12-01] MEDS: Pantoprazole 40 mg EC Tab PO SCH (09:58)
[2018-12-01] MEDS: EPOETIN ALFA 10,000 UNIT/ML ML IV SCH (10:00)
--- NOTE | 2018-12-01 11:27 | PN ---
DATE: 12/01/2018 SUBJECTIVE: The patient seen and examined. Interim events noted. Consults noted and appreciated. Surgical followup and intervention noted and appreciated. The patient remains in progressive care unit, on telemetry monitoring. The patient is sleeping, arousable. Feels okay. No chest pain. No shortness of breath. No abdominal pain, nausea, vomiting. No diarrhea. Tolerating food well. PHYSICAL EXAMINATION: GENERAL: The patient is in no acute distress. VITAL SIGNS: Stable. HEART: S1 and S2, normal, regular. LUNGS: Good bilateral air exchange. ABDOMEN: Soft, nontender. No organomegaly noted. Bowel sounds are present and normal. No sign of acute abdomen. No guarding, no rigidity, no rebound. The patient has midline scar with small opening in the middle with packing. EXTREMITIES: No edema. No calf swelling. No tenderness. No acute ischemia. CENTRAL NERVOUS SYSTEM: Essentially unchanged. DIAGNOSTIC DATA: Available diagnostic data reviewed. Telemetry monitoring does not reveal any significant arrhythmia. WBC count is elevated. We will order CAT scan of the abdomen as suggested by Infectious Disease. ASSESSMENT AND PLAN: Plan as ordered. Case and plan discussed with the patient. Jeol Lake MD
--- NOTE | 2018-12-01 12:44 | CP.PCM.PN ---
Subjective - Date & Time of Evaluation Date of Evaluation: 12/01/18 Time of Evaluation: 12:44 - Subjective Subjective: Nephrology Consultation Note: Assessment: Stable s/o small bowel resection Diabetic chronic Kidney Disease (E11.22) Hypertensive Chronic Kidney Disease (I12.0) End stage renal disease (N18.6) dependence on hemodialysis (Z99.2) (MWF) via pc Anemia (D64.9), Hyperphosphatemia (E83.39), Secondary Hyperparathyroidism (E21.1), HTN (I12.0) Plan: HD MWF - for tx today with Nephrovite 1 tab/day. PRBC as needed for anemia. Continue YURIY with dialysis phos level stable bp stable Glycemic control, Dialysis consistent diet. Further work up/management as per primary team Dose meds/antibiotics for ESRD status. Avoid fleets enema/magnesium based laxatives. surgery following S: seen and examined no complaints Physical Examination: General Appearance: Comfortable, in no acute respiratory distress, co-operative . obese Vitals reviewed and noted as below Head; Atraumatic, normocephalic ENT: no ulcers no thrush. Tongue is midline. Oropharynx: no rash or ulcers. EYES: Pupils are equal, round and reactive to light accommodation. Eye muscles and extraocular movement intact. Sclera is anicteric. Neck; supple no lymphadenopathy, no thyromegaly or bruit Lungs: Normal respiratory rate/effort. Breath sounds bilateral equal and clear Heart: Normal rate. s1s2 normal. No rub or gallop. Extremities: no edema. No varicose veins. Rt TMA Neurological: Patient is alert, awake and oriented to person, place and time. No focal deficit. Strength bilateral appropriate and equal Skin: Warm and dry. Normal turgor. has rash RLE. Palpitation: Normal elasticity for age Abdomen: Abdomen is soft. Bowel sounds +. There is no abdominal tenderness, no guarding/rigidity or organomegaly. dressing on abdomen Psych: normal insight and normal affect/mood MSK: no joint tenderness or swelling. Digits and nails normal, no deformity : kidney or bladder not palpable Labs/imaging reviewed. Past medical history, past surgical history, family history, social history, allergy reviewed and noted as below Family Hx: no hx of CKD. Non contributory Objective - Vital Signs/Intake and Output Vital Signs (last 24 hours): Temp Pulse Resp BP Pulse Ox 97.8 F 90 20 165/100 H 98 12/01/18 12:04 12/01/18 12:04 12/01/18 12:04 12/01/18 12:04 12/01/18 12:04 - Medications Medications: Current Medications Epoetin Mitchell (Procrit) 10,000 unit IV MWF [facility] Last Admin: 12/01/18 10:00 Dose: 10,000 unit Glipizide (Glucotrol) 10 mg PO BID [facility] Last Admin: 12/01/18 09:54 Dose: 10 mg Heparin Sodium (Porcine) (Heparin) 5,000 units SC Q8 [facility]; Protocol Last Admin: 12/01/18 09:54 Dose: 5,000 units Amikacin Sulfate 500 mg/ (Sodium Chloride) 102 mls @ 101.185 mls/hr IVPB F [facility]; Protocol Last Admin: 12/01/18 10:05 Dose: 101.185 mls/hr Insulin Human Lispro (Humalog) 0 units SC ACHS [facility]; Protocol Last Admin: 12/01/18 11:33 Dose: Not Given Lactic Acid (Lac-Hydrin 12% Lotion (225 G)) 1 applic TOP DAILY [facility] Last Admin: 12/01/18 09:57 Dose: 1 applic Loperamide HCl (Imodium) 2 mg PO Q6 PRN PRN Reason: Diarrhea Losartan Potassium (Cozaar) 50 mg PO QPM [facility] Last Admin: 11/30/18 17:20 Dose: 50 mg Metoclopramide HCl (Reglan) 10 mg PO DAILY [facility] Last Admin: 12/01/18 09:58 Dose: 10 mg Metoprolol Tartrate (Lopressor) 12.5 mg PO BID [facility] Last Admin: 12/01/18 09:57 Dose: Not Given Pantoprazole Sodium (Protonix Ec Tab) 40 mg PO DAILY [facility] Last Admin: 12/01/18 09:58 Dose: 40 mg Sitagliptin Phosphate (Januvia) 25 mg PO DAILY [facility] Last Admin: 12/01/18 09:56 Dose: 25 mg Tobramycin/Dexamethasone (Tobradex Opht Susp) 2 drop OU Q4 [facility] Last Admin: 12/01/18 09:58 Dose: 2 drop Vitamin B Complex/Vit C/Folic Acid (Nephro-Elsa) 1 tab PO DAILY [facility] Last Admin: 12/01/18 09:57 Dose: 1 tab - Labs Labs: 12/01/18 04:25 12/01/18 04:25 PT 15.1 Seconds (9.8-13.1) H 11/11/18 09:53 INR 1.3 11/11/18 09:53 APTT 30.8 Seconds (25.6-37.1) 11/11/18 15:00
[2018-12-02] MEDS: Dexamethasone/Tobramycin Ophth Susp OU SCH ×6 (01:46→21:05)
[2018-12-02 05:10] LABS: HEMOGLOBIN 9.2 g/dL (12.0-18.0); MEAN CELL VOLUME 76.2 fl (80.0-94.0); MEAN CORPUSCULAR HEMOGLOBIN 24.5 pg (27.0-31.0); MEAN CORPUSCULAR HGB CONC 32.2 g/dL (33.0-37.0); RBC 3.75 Mil/uL (4.40-5.90); RED CELL DISTRIBUTION WIDTH 20.2 % (11.5-14.5)
[2018-12-02 05:47] LABS: ALB/GLOB RATIO 0.8 (1.0-2.1); ALBUMIN 2.9 g/dL (3.5-5.0); CALCIUM 8.3 mg/dL (8.4-10.2)
[2018-12-02] MEDS: Insulin Lispro (humaLOG) 100 Units/ml Inj SC SCH ×4 (08:50→22:35)
[2018-12-02] MEDS: Multivitamin Vitamin B Complex (Nephro-Vite) Tab PO SCH (08:52)
[2018-12-02] MEDS: Pantoprazole 40 mg EC Tab PO SCH (08:52)
--- NOTE | 2018-12-02 10:02 | PN ---
DATE: 12/02/2018 SUBJECTIVE: The patient seen and examined. Interim events noted. Consults noted and appreciated. Nephrology followup and intervention noted and appreciated. The patient remains in progressive care unit with telemetry monitoring. Feels okay. Denies any specific complaint. No chest pain. No shortness of breath. No abdominal pain. No diarrhea. PHYSICAL EXAMINATION: GENERAL: The patient is in no acute distress. VITAL SIGNS: Stable. HEART: S1 and S2, normal and regular. LUNGS: Good bilateral air exchange. ABDOMEN: Soft, nontender. No organomegaly. No fluid. Bowel sounds are plus and normal. No sign of acute abdomen. No guarding or rigidity, no rebound. The patient has midline scar with small opening with packing. Dealing nicely without any sign of cellulitis or fistula. EXTREMITIES: The patient is status post amputation. No edema. No calf swelling. No tenderness. No acute ischemia. CENTRAL NERVOUS SYSTEM: Essentially unchanged. DIAGNOSTIC DATA: Available diagnostic data reviewed. Telemetry monitoring does not show significant arrhythmias. ASSESSMENT: Overall, the patient's general medical condition is stable. PLAN: As ordered. Joel Lake MD
[2018-12-03] MEDS: Dexamethasone/Tobramycin Ophth Susp OU SCH ×5 (01:02→23:34)
[2018-12-03 05:44] LABS: HEMOGLOBIN 9.9 g/dL (12.0-18.0); MEAN CELL VOLUME 75.6 fl (80.0-94.0); MEAN CORPUSCULAR HEMOGLOBIN 23.6 pg (27.0-31.0); MEAN CORPUSCULAR HGB CONC 31.2 g/dL (33.0-37.0); RBC 4.19 Mil/uL (4.40-5.90); RED CELL DISTRIBUTION WIDTH 20.4 % (11.5-14.5); WHITE BLOOD COUNT 12.6 K/uL (4.8-10.8)
[2018-12-03] MEDS ORDERED: Iohexol 240 (50 ml) PO ONE (06:00)
[2018-12-03 06:29] LABS: ALB/GLOB RATIO 0.8 (1.0-2.1); ALBUMIN 3.3 g/dL (3.5-5.0); CALCIUM 8.8 mg/dL (8.4-10.2)
[2018-12-03] MEDS: Insulin Lispro (humaLOG) 100 Units/ml Inj SC SCH ×4 (06:55→23:10)
--- NOTE | 2018-12-03 07:49 | CP.PCM.PN ---
<HuronSultan - Last Filed: 12/03/18 08:54> Subjective - Date & Time of Evaluation Date of Evaluation: 12/03/18 Time of Evaluation: 07:25 - Subjective Subjective: Patient seen and examined this AM with Dr. Lake. No acute overnight events. Patient continues to receive IV abx during HD. Patient is to have CT A/P today. Denies any chest pain, dyspnea, fever, chills or new acute complaints. Objective - Vital Signs/Intake and Output Vital Signs (last 24 hours): Temp Pulse Resp BP Pulse Ox 98.8 F 96 H 18 120/88 99 12/03/18 05:00 12/03/18 05:00 12/03/18 05:00 12/03/18 05:00 12/03/18 05:00 - Medications Medications: Current Medications Epoetin Mitchell (Procrit) 10,000 unit IV [facility] Last Admin: 12/01/18 10:00 Dose: 10,000 unit Glipizide (Glucotrol) 10 mg PO BID [facility] Last Admin: 12/02/18 16:40 Dose: 10 mg Amikacin Sulfate 500 mg/ (Sodium Chloride) 102 mls @ 101.185 mls/hr IVPB [facility]; Protocol Last Admin: 12/01/18 10:05 Dose: 101.185 mls/hr Insulin Human Lispro (Humalog) 0 units SC [facility]; Protocol Last Admin: 12/03/18 06:55 Dose: Not Given Lactic Acid (Lac-Hydrin 12% Lotion (225 G)) 1 applic TOP DAILY [facility] Last Admin: 12/02/18 08:51 Dose: 1 applic Loperamide HCl (Imodium) 2 mg PO Q6 PRN PRN Reason: Diarrhea Losartan Potassium (Cozaar) 50 mg PO QPM [facility] Last Admin: 12/02/18 17:50 Dose: 50 mg Metoclopramide HCl (Reglan) 10 mg PO DAILY [facility] Last Admin: 12/02/18 08:53 Dose: 10 mg Metoprolol Tartrate (Lopressor) 12.5 mg PO BID [facility] Last Admin: 12/02/18 16:42 Dose: 12.5 mg Pantoprazole Sodium (Protonix Ec Tab) 40 mg PO DAILY [facility] Last Admin: 12/02/18 08:52 Dose: 40 mg Sitagliptin Phosphate (Januvia) 25 mg PO DAILY [facility] Last Admin: 12/02/18 08:51 Dose: 25 mg Tobramycin/Dexamethasone (Tobradex Opht Susp) 2 drop OU Q4 [facility] Last Admin: 12/03/18 04:08 Dose: 2 drop Vitamin B Complex/Vit C/Folic Acid (Nephro-Elsa) 1 tab PO DAILY [facility] Last Admin: 12/02/18 08:52 Dose: 1 tab - Labs Labs: 12/03/18 05:28 12/03/18 05:28 PT 15.1 Seconds (9.8-13.1) H 11/11/18 09:53 INR 1.3 11/11/18 09:53 APTT 30.8 Seconds (25.6-37.1) 11/11/18 15:00 - Constitutional Appears: No Acute Distress - Head Exam Head Exam: ATRAUMATIC, NORMAL INSPECTION - Eye Exam Eye Exam: Normal appearance - ENT Exam ENT Exam: Mucous Membranes Moist - Respiratory Exam Respiratory Exam: Clear to Ausculation Bilateral, NORMAL BREATHING PATTERN. absent: Rhonchi, Wheezes - Cardiovascular Exam Cardiovascular Exam: REGULAR RHYTHM, RRR - GI/Abdominal Exam GI & Abdominal Exam: Soft, Normal Bowel Sounds Additional comments: midline scar- slight serosanguinous discharge seen on one of the dressings. No surrounding erythema or swelling. - Extremities Exam Extremities Exam: Normal Inspection. absent: Calf Tenderness - Neurological Exam Neurological Exam: Alert, Awake - Psychiatric Exam Psychiatric exam: Normal Affect, Normal Mood - Skin Skin Exam: Normal Color, Warm Assessment and Plan - Assessment and Plan (Free Text) Assessment: 47 yo M with ESRD (HD ), s/p significant bowel resection due to ischemic bowel; POD 22; with proteus mirabilis in wound culture and receiving IV abx during HD. Plan: - POD 22, s/p small bowel resection; tolerating diet. - Abx - ID consult Dr. Elam; wound culture grew proteus mirabilis, started on amikacin post dialysis, recs appreciated. - Surg on board due to bowel resection, wound cultures - stable from surg perspective - ESRD - HD MWF - due today - BP control w/ losartan - Insulin coverage scale and hypoglycemia protocol - Protonix - Heparin -Rest of the plan as ordered. Patient seen, examined and plan d/w Dr. Aleksandra Gentile, [id number] <Joel Lake - Last Filed: 12/05/18 13:27> Objective - Vital Signs/Intake and Output Vital Signs (last 24 hours): Temp Pulse Resp BP Pulse Ox 98.4 F 98 H 18 135/75 97 12/04/18 08:04 12/04/18 10:17 12/04/18 08:04 12/04/18 10:17 12/04/18 08:04 - Labs Labs: 12/04/18 05:45 12/04/18 05:45 PT 15.1 Seconds (9.8-13.1) H 11/11/18 09:53 INR 1.3 11/11/18 09:53 APTT 30.8 Seconds (25.6-37.1) 11/11/18 15:00 Assessment and Plan - Assessment and Plan (Free Text) Assessment: Patient was personally seen and examined by me in rounds with residents. Available labs and diagnostic data reviewed. Case, Patient's condition and management plan discussed with residents in rounds. Agree with resident's progress note. Plan: As ordered.
[2018-12-03] MEDS ORDERED: Magnesium Sulfate 1 gm in D5W 1 GM/100 ML BAG IVPB ONE (09:00)
[2018-12-03] MEDS ORDERED: Iodixanol 320 MG/ML 100 ML BOTTLE IV ONE (10:31)
[2018-12-03] MEDS ORDERED: Sodium Chloride 0.9% 50 ML IV ONE (10:31)
--- NOTE | 2018-12-03 12:06 | CP.PCM.PN ---
Subjective - Date & Time of Evaluation Date of Evaluation: 12/03/18 Time of Evaluation: 11:17 - Subjective Subjective: Nephrology Consultation Note: Assessment: Stable s/o small bowel resection Diabetic chronic Kidney Disease (E11.22) Hypertensive Chronic Kidney Disease (I12.0) End stage renal disease (N18.6) dependence on hemodialysis (Z99.2) (MWF) via pc Anemia (D64.9), Hyperphosphatemia (E83.39), Secondary Hyperparathyroidism (E21.1), HTN (I12.0) Plan: HD MWF - for tx today lytes reviewed with Nephrovite 1 tab/day. PRBC as needed for anemia. Continue YURIY with dialysis phos level monitor Dose meds/antibiotics for ESRD status. Avoid fleets enema/magnesium based laxatives. surgery following S: seen and examined Physical Examination: General Appearance: Comfortable, in no acute respiratory distress, co-operative . obese Vitals reviewed and noted as below Head; Atraumatic, normocephalic ENT: no ulcers n EYES: Eye muscles and extraocular movement intact. Sclera is anicteric. Neck; supple no jvd Lungs: Normal respiratory rate/effort. Breath sounds bilateral equal and clear Heart: Normal rate. s1s2 normal. No rub or gallop. Extremities: no edema. No varicose veins. Rt TMA Neurological: Patient is alert, awake and oriented to person, place and time. No focal deficit. Strength bilateral appropriate and equal Skin: Warm and dry. Abdomen: Abdomen is soft. Bowel sounds +. There is no abdominal tenderness, no guarding/rigidity or organomegaly. dressing on abdomen Psych: normal insight and normal affect/mood MSK: no joint tenderness Objective - Vital Signs/Intake and Output Vital Signs (last 24 hours): Temp Pulse Resp BP Pulse Ox 98.6 F 92 H 18 113/69 96 12/03/18 07:59 12/03/18 07:59 12/03/18 07:59 12/03/18 07:59 12/03/18 07:59 - Medications Medications: Current Medications Epoetin Mitchell (Procrit) 10,000 unit IV MWF [facility] Last Admin: 12/01/18 10:00 Dose: 10,000 unit Glipizide (Glucotrol) 10 mg PO BID [facility] Last Admin: 12/02/18 16:40 Dose: 10 mg Heparin Sodium (Porcine) (Heparin) 5,000 units SC Q8 [facility]; Protocol Amikacin Sulfate 500 mg/ (Sodium Chloride) 102 mls @ 101.185 mls/hr IVPB [facility] [place]; Protocol Last Admin: 12/01/18 10:05 Dose: 101.185 mls/hr Vancomycin HCl 1 gm/ Sodium (Chloride) 250 mls @ 125 mls/hr IVPB [facility]; Protocol Insulin Human Lispro (Humalog) 0 units SC ACHS [facility]; Protocol Last Admin: 12/03/18 06:55 Dose: Not Given Lactic Acid (Lac-Hydrin 12% Lotion (225 G)) 1 applic TOP DAILY [facility] Last Admin: 12/02/18 08:51 Dose: 1 applic Loperamide HCl (Imodium) 2 mg PO Q6 PRN PRN Reason: Diarrhea Losartan Potassium (Cozaar) 50 mg PO QPM [facility] Last Admin: 12/02/18 17:50 Dose: 50 mg Metoclopramide HCl (Reglan) 10 mg PO DAILY [facility] Last Admin: 12/02/18 08:53 Dose: 10 mg Metoprolol Tartrate (Lopressor) 12.5 mg PO BID [facility] Last Admin: 12/02/18 16:42 Dose: 12.5 mg Pantoprazole Sodium (Protonix Ec Tab) 40 mg PO DAILY [facility] Last Admin: 12/02/18 08:52 Dose: 40 mg Sitagliptin Phosphate (Januvia) 25 mg PO DAILY [facility] Last Admin: 12/02/18 08:51 Dose: 25 mg Tobramycin/Dexamethasone (Tobradex Opht Susp) 2 drop OU Q4 [facility] Last Admin: 12/03/18 04:08 Dose: 2 drop Vitamin B Complex/Vit C/Folic Acid (Nephro-Elsa) 1 tab PO DAILY [facility] Last Admin: 12/02/18 08:52 Dose: 1 tab - Labs Labs: 12/03/18 05:28 12/03/18 05:28 PT 15.1 Seconds (9.8-13.1) H 11/11/18 09:53 INR 1.3 11/11/18 09:53 APTT 30.8 Seconds (25.6-37.1) 11/11/18 15:00
--- NOTE | 2018-12-03 15:19 | CT ---
Date of service: 12/03/2018 PROCEDURE: CT Abdomen and Pelvis with contrast HISTORY: s/p sx COMPARISON: 11/24/2018. TECHNIQUE: CT scan of the abdomen and pelvis was performed after administration of intravenous contrast. Oral contrast was administered. Coronal and sagittal reformatted images were obtained. Contrast dose: 95 mL Visipaque 320 Radiation dose: Total exam DLP = 951.15 mGy-cm. This CT exam was performed using one or more of the following dose reduction techniques: Automated exposure control, adjustment of the mA and/or kV according to patient size, and/or use of iterative reconstruction technique. FINDINGS: LOWER THORAX: The visualized lungs are clear. LIVER: Mild hepatomegaly and fatty liver. No gross lesion or ductal dilatation. GALLBLADDER AND BILE DUCTS: Well distended. No calcified gallstones, wall thickening or pericholecystic fluid. PANCREAS: Normal in size with homogeneous enhancement. No gross lesion or ductal dilatation. SPLEEN: Normal in size. There is a triangular low-attenuation area in the pole of the spleen posteriorly extending to the cortex most compatible with a splenic infarction. ADRENALS: No discrete nodule. KIDNEYS AND URETERS: Normal in size with homogeneous enhancement. No hydronephrosis. No solid mass. VASCULATURE: No aortic aneurysm. There are aortoiliac atherosclerotic calcifications and mural plaque present. BOWEL: The small bowel loops are normal in caliber. Again seen are postsurgical changes in the distal small bowel in the right lower quadrant with ileoileal anastomosis. The terminal ileum is decompressed. The colon is grossly normal in appearance. No bowel wall thickening or obstruction. APPENDIX: Not visualized. PERITONEUM: No free fluid. No free air. LYMPH NODES: No enlarged lymph nodes. BLADDER: Decompressed. REPRODUCTIVE: The prostate gland is normal in size. BONES: No acute fracture. Again seen are old osteoporotic superior endplate compression deformities in the L2 and L5 vertebral bodies. There is diffuse bone demineralization. OTHER FINDINGS: There is a small sliding hiatal hernia. There are postsurgical changes of median laparotomy and few foci of air and minimal fluid in the supraumbilical anterior abdominal wall. No definite evidence for drainable fluid collection. IMPRESSION: No acute abdominal or pelvic abnormality. Postsurgical changes of partial distal small bowel resection with ileal anastomosis. Postsurgical changes in the supraumbilical anterior abdominal wall with fluid and foci of air no definite evidence for drainable fluid collection. Focal wedge-shaped abnormal density in the superior pole of the spleen posteriorly most compatible with splenic infarction.
[2018-12-03] MEDS: EPOETIN ALFA 10,000 UNIT/ML ML IV SCH (16:11)
[2018-12-03 20:11] VITALS: RESP 18
[2018-12-04] MEDS: Dexamethasone/Tobramycin Ophth Susp OU SCH ×3 (01:30→10:19)
[2018-12-04 05:17] VITALS: O2SAT 97
[2018-12-04] MEDS: Insulin Lispro (humaLOG) 100 Units/ml Inj SC SCH (06:35)
[2018-12-04 06:39] LABS: HEMOGLOBIN 9.5 g/dL (12.0-18.0); MEAN CELL VOLUME 76.1 fl (80.0-94.0); MEAN CORPUSCULAR HEMOGLOBIN 24.1 pg (27.0-31.0); MEAN CORPUSCULAR HGB CONC 31.6 g/dL (33.0-37.0); RBC 3.96 Mil/uL (4.40-5.90); RED CELL DISTRIBUTION WIDTH 20.4 % (11.5-14.5); WHITE BLOOD COUNT 9.5 K/uL (4.8-10.8)
[2018-12-04 06:44] LABS: ALB/GLOB RATIO 0.8 (1.0-2.1); ALBUMIN 3.2 g/dL (3.5-5.0); CALCIUM 8.2 mg/dL (8.4-10.2)
[2018-12-04] MEDS: Multivitamin Vitamin B Complex (Nephro-Vite) Tab PO SCH (10:19)
[2018-12-04] MEDS: Pantoprazole 40 mg EC Tab PO SCH (10:20)
--- NOTE | 2018-12-04 10:20 | CP.PCM.PN ---
Subjective - Date & Time of Evaluation Date of Evaluation: 12/04/18 Time of Evaluation: 10:19 - Subjective Subjective: General Surgery Pt seen and examined this AM. He denies having any abdominal pain. (-) N/V. He reports little ambulation. Dressing not yet changed today. Labs and vitals noted. WBC normal PE Gen: Pt laying down in NAD Skin: warm and dry. (+) erythematous/scabbed rash of varying sizes of bilateral LE, improving since admission Cardio: s1s2 RRR Lungs: CTA bilaterally Abd: Soft, NTND. Surgical incision: (+) serosanguinous drainage on drsg, (-) odor, (+) healing. Surrounding erythema at incision edges resolved. (-) induration. Extr: (-) calf tenderness bilaterally. Right foot:partial amputation A/P POD 23 small bowel resection with anastomosis for ischemic bowel, incision wound infection Pt cleared for d/c from surgical standpoint Surgery signing off. ABX per ID Daily dressing with dry gauze dressing. Objective - Vital Signs/Intake and Output Vital Signs (last 24 hours): Temp Pulse Resp BP Pulse Ox 98.4 F 98 H 18 135/76 97 12/04/18 08:04 12/04/18 08:04 12/04/18 08:04 12/04/18 08:04 12/04/18 08:04 - Medications Medications: Current Medications Epoetin Mitchell (Procrit) 10,000 unit IV F [facility] Last Admin: 12/03/18 16:11 Dose: 10,000 unit Glipizide (Glucotrol) 10 mg PO BID [facility] Last Admin: 12/03/18 17:05 Dose: 10 mg Heparin Sodium (Porcine) (Heparin) 5,000 units SC Q8 [facility]; Protocol Last Admin: 12/04/18 01:30 Dose: 5,000 units Amikacin Sulfate 500 mg/ (Sodium Chloride) 102 mls @ 101.185 mls/hr IVPB [facility] [place]; Protocol Last Admin: 12/03/18 16:05 Dose: 101.185 mls/hr Vancomycin HCl 1 gm/ Sodium (Chloride) 250 mls @ 125 mls/hr IVPB [facility] [place]; Protocol Last Admin: 12/03/18 17:06 Dose: 125 mls/hr Insulin Human Lispro (Humalog) 0 units SC ACHS [facility]; Protocol Last Admin: 12/04/18 06:35 Dose: Not Given Lactic Acid (Lac-Hydrin 12% Lotion (225 G)) 1 applic TOP DAILY [facility] Last Admin: 12/02/18 08:51 Dose: 1 applic Loperamide HCl (Imodium) 2 mg PO Q6 PRN PRN Reason: Diarrhea Losartan Potassium (Cozaar) 50 mg PO QPM [facility] Last Admin: 12/03/18 19:25 Dose: Not Given Metoclopramide HCl (Reglan) 10 mg PO DAILY [facility] Last Admin: 12/02/18 08:53 Dose: 10 mg Metoprolol Tartrate (Lopressor) 12.5 mg PO BID [facility] Last Admin: 12/03/18 17:08 Dose: Not Given Pantoprazole Sodium (Protonix Ec Tab) 40 mg PO DAILY [facility] Last Admin: 12/02/18 08:52 Dose: 40 mg Sitagliptin Phosphate (Januvia) 25 mg PO DAILY [facility] Last Admin: 12/03/18 09:05 Dose: Not Given Tobramycin/Dexamethasone (Tobradex Opht Susp) 2 drop OU Q4 [facility] Last Admin: 12/04/18 05:01 Dose: Not Given Vitamin B Complex/Vit C/Folic Acid (Nephro-Elsa) 1 tab PO DAILY [facility] Last Admin: 12/02/18 08:52 Dose: 1 tab - Labs Labs: 12/04/18 05:45 12/04/18 05:45 PT 15.1 Seconds (9.8-13.1) H 11/11/18 09:53 INR 1.3 11/11/18 09:53 APTT 30.8 Seconds (25.6-37.1) 11/11/18 15:00
--- NOTE | 2018-12-04 12:21 | CP.PCM.DIS ---
Provider - Provider Date of Admission: 11/11/18 11:22 Attending physician: Joel Lake MD Consults: 11/11/18 13:43 Infectious Disease Consult Routine Comment: Consulting Provider: Nate Elam Consulting Physician: Nate Elam Reason for Consult: small bowel obstruction with perforation 11/11/18 19:28 Nephrology Consult Routine Comment: Consulting Provider: Kobe Rodríguez Consulting Physician: Kobe Rodríguez Reason for Consult: ESRD w/ HD M-W-F; Metabolic Acidosis 11/12/18 22:57 General Surgery Consult Routine Comment: Consulting Provider: Coy Kyle Consulting Physician: Coy Kyle Reason for Consult: SBO, Ischemic bowel Time Spent in preparation of Discharge (in minutes): 45 Diagnosis - Discharge Diagnosis (1) SBO (small bowel obstruction) Status: Resolved (2) Ischemia, bowel Status: Resolved (3) ESRD (end stage renal disease) on dialysis Status: Chronic Priority: High Hospital Course - Lab Results Lab Results: Micro Results 11/23/18 17:26 Abdomen Gram Stain - Final 11/23/18 17:26 Abdomen Wound Culture - Final Proteus Mirabilis 11/11/18 18:00 Blood-Thru Central Line Blood Culture - Final NO GROWTH AFTER 5 DAYS 11/11/18 18:00 Blood-Thru Central Line Gram Stain - Final TEST NOT PERFORMED 11/11/18 11:00 Blood-Thru Central Line Blood Culture - Final NO GROWTH AFTER 5 DAYS 11/11/18 11:00 Blood-Thru Central Line Gram Stain - Final TEST NOT PERFORMED 11/11/18 14:30 Naris MRSA Culture (Admit) - Final MRSA DETECTED Most Recent Lab Values WBC 9.5 K/uL (4.8-10.8) 12/04/18 05:45 RBC 3.96 Mil/uL (4.40-5.90) L 12/04/18 05:45 Hgb 9.5 g/dL (12.0-18.0) L 12/04/18 05:45 Hct 30.2 % (35.0-51.0) L 12/04/18 05:45 MCV 76.1 fl (80.0-94.0) L 12/04/18 05:45 MCH 24.1 pg (27.0-31.0) L 12/04/18 05:45 MCHC 31.6 g/dL (33.0-37.0) L 12/04/18 05:45 RDW 20.4 % (11.5-14.5) H 12/04/18 05:45 Plt Count 316 K/uL (130-400) 12/04/18 05:45 MPV 7.7 fl (7.2-11.7) 11/18/18 05:05 Neut % (Auto) 77.3 % (50.0-75.0) H 11/18/18 05:05 Lymph % (Auto) 12.0 % (20.0-40.0) L 11/18/18 05:05 [place] % (Auto) 9.8 % (0.0-10.0) 11/18/18 05:05 Eos % (Auto) 0.5 % (0.0-4.0) 11/18/18 05:05 Baso % (Auto) 0.4 % (0.0-2.0) 11/18/18 05:05 Neut # (Auto) 8.9 K/uL (1.8-7.0) H 11/18/18 05:05 Lymph # (Auto) 1.4 K/uL (1.0-4.3) 11/18/18 05:05 [place] # (Auto) 1.1 K/uL (0.0-0.8) H 11/18/18 05:05 Eos # (Auto) 0.1 K/uL (0.0-0.7) 11/18/18 05:05 Baso # (Auto) 0.0 K/uL (0.0-0.2) 11/18/18 05:05 Neutrophils % (Manual) 88 % (42-75) H 11/11/18 09:55 Band Neutrophils % 1 % (0-2) 11/11/18 09:55 Lymphocytes % (Manual) 8 % (20-50) L 11/11/18 09:55 Monocytes % (Manual) 3 % (0-10) 11/11/18 09:55 Hypersegmented Polys Present 11/11/18 09:55 Platelet Estimate Increased (NORMAL) H 11/11/18 09:55 Giant Platelets Present 11/11/18 09:55 Hypochromasia (manual) Slight 11/11/18 09:55 Anisocytosis (manual) Moderate 11/11/18 09:55 PT 15.1 Seconds (9.8-13.1) H 11/11/18 09:53 INR 1.3 11/11/18 09:53 APTT 30.8 Seconds (25.6-37.1) 11/11/18 15:00 pCO2 33 mm/Hg (35-45) L 11/12/18 04:21 pO2 118 mm/Hg (80-100) H 11/12/18 04:21 HCO3 21.3 mmol/L (21-28) 11/12/18 04:21 ABG pH 7.38 (7.35-7.45) 11/12/18 04:21 ABG Total CO2 20.5 mmol/L (22-28) L 11/12/18 04:21 ABG O2 Saturation 98.8 % (95-98) H 11/12/18 04:21 ABG Base Excess -4.7 mmol/L (-2.0-3.0) L 11/12/18 04:21 Dorian Test Yes 11/12/18 04:21 ABG Potassium 4.9 mmol/L (3.6-5.2) 11/12/18 04:21 VBG pH 7.31 (7.32-7.43) L 11/11/18 14:05 VBG pCO2 37 mmHg (40-60) L 11/11/18 14:05 VBG HCO3 18.2 mmol/L 11/11/18 14:05 VBG Total CO2 19.7 mmol/L (22-28) L 11/11/18 14:05 VBG O2 Sat (Calc) 52.3 % (40-65) 11/11/18 14:05 VBG Base Excess -7.0 mmol/L (0.0-2.0) L 11/11/18 14:05 VBG Potassium 3.9 mmol/L (3.6-5.2) 11/11/18 14:05 A-a O2 Difference 197.0 mm/Hg 11/12/18 04:21 Sodium 136.0 mmol/L (132-148) 11/12/18 04:21 Chloride 106.0 mmol/L (98-107) 11/12/18 04:21 Glucose 263 mg/dL (75-110) H 11/12/18 04:21 Lactate 3.9 mmol/L (0.7-2.1) H 11/12/18 04:21 Vent Mode Prvc ac 11/12/18 04:21 Mechanical Rate 20 11/12/18 04:21 FiO2 50.0 % 11/12/18 04:21 Tidal Volume 600 11/12/18 04:21 PEEP 5 11/11/18 18:39 Blood Gas Comments Lac=3.2 11/11/18 21:42 Crit Value Called To suki Onofre 11/11/18 21:42 Crit Value Called By 22 11/11/18 21:42 Crit Value Read Back Y 11/11/18 21:42 Blood Gas Notified Time 215711/11/18 21:42 Sodium 132 mmol/l (132-148) 12/04/18 05:45 Potassium 3.5 MMOL/L (3.6-5.0) L 12/04/18 05:45 Chloride 95 mmol/L (98-107) L 12/04/18 05:45 Carbon Dioxide 26 mmol/L (22-30) 12/04/18 05:45 Anion Gap 15 (10-20) 12/04/18 05:45 BUN 19 mg/dl (9-20) 12/04/18 05:45 Creatinine 4.2 mg/dl (0.8-1.5) H 12/04/18 05:45 Est GFR ( Amer) 18 12/04/18 05:45 Est GFR (Non-Af Amer) 15 12/04/18 05:45 POC Glucose (mg/dL) 134 mg/dL (65-110) H 12/04/18 05:26 Random Glucose 133 mg/dL (75-110) H 12/04/18 05:45 Calcium 8.2 mg/dL (8.4-10.2) L 12/04/18 05:45 Phosphorus 3.2 mg/dl (2.5-4.5) 12/04/18 05:45 Magnesium 1.3 MG/DL (1.6-2.3) L 12/04/18 05:45 Total Bilirubin 0.3 mg/dl (0.2-1.3) 12/04/18 05:45 AST 20 U/L (17-59) 12/04/18 05:45 ALT 18 U/L (21-72) L D 12/04/18 05:45 Alkaline Phosphatase 117 U/L (38-126) 12/04/18 05:45 Troponin I 0.0130 ng/mL (0.00-0.120) 11/11/18 11:07 Total Protein 7.1 G/DL (6.3-8.2) 12/04/18 05:45 Albumin 3.2 g/dL (3.5-5.0) L 12/04/18 05:45 Globulin 3.9 gm/dL (2.2-3.9) 12/04/18 05:45 Albumin/Globulin Ratio 0.8 (1.0-2.1) L 12/04/18 05:45 Triglycerides 306 mg/DL (0-149) H 11/17/18 07:00 Arterial Blood Potassium 4.9 mmol/L (3.6-5.2) 11/12/18 04:21 Venous Blood Potassium 3.9 mmol/L (3.6-5.2) 11/11/18 14:05 Vancomycin Trough 9.7 ug/mL (5.0-10.0) 11/28/18 05:47 Random Vancomycin 16.4 ug/mL 11/21/18 11:17 C. difficile Ag & Toxin Negative (NEGATIVE) 11/23/18 17:26 Blood Type O NEGATIVE 11/11/18 11:07 Antibody Screen Negative 11/11/18 11:07 Crossmatch See Detail 11/11/18 11:07 BBK History Checked Patient has bt 11/11/18 11:07 - Hospital Course Hospital Course: 47 year old male with PMHx of ESRD on HD, CVA, NIDDM, HTN, HLD, GERD/Gastritis, who presented to [facility] ED on 11/11/18 with complaints of coffee ground emesis x1 day and diffuse abdominal pain. Abdomen/Pelvic CT on 11/11/18 was significant for High grade SBO w/ possible perforation (intestinal pneumatosis) and ischemic bowel. General surgery was consulted and patient had exploratory laparotomy with small bowel resection and primary ansastamosis due to SBO and ischemic bowel. Patient was admitted to ICU for first few days and then transferred to telemetry. During this hospitalization, in addition to general surgery, clinical laboratory technologist Dr. Rodríguez, ID specialist Dr. Elam were involved in the care. Patients wound culture on 11/23/18 grew Proteus mirabilis. Patient received Vancomycin and Amikacin. Patient received HD three times a week while in the hospital. Repeat CT A/P was done today (please see report). Today, patient reports he feels better. Patient has been afebrile and has stable vitals. Patient is medically stable to discharge home with appropriate f/u and IV abx. Advised to follow up with Dr. Kyle and Dr. Gee in 1 week. Discharge Exam - Head Exam Head Exam: ATRAUMATIC, NORMAL INSPECTION - Eye Exam Eye Exam: Normal appearance - Neck Exam Neck exam: Normal Inspection - Respiratory Exam Respiratory Exam: Clear to PA & Lateral, NORMAL BREATHING PATTERN - Cardiovascular Exam Cardiovascular Exam: REGULAR RHYTHM, +S1, +S2 - GI/Abdominal Exam GI & Abdominal Exam: Normal Bowel Sounds, Soft. absent: Tenderness Additional comments: midline scar- slight serosanguinous discharge seen on one of the dressings. No surrounding erythema or swelling - Neurological Exam Neurological exam: Alert, Oriented x3 - Psychiatric Exam Psychiatric exam: Normal Affect, Normal Mood - Skin Skin Exam: Normal Color, Warm Discharge Plan - Discharge Medications Prescriptions: Amikacin [Amikacin 500 mg/2ml Inj] 500 mg IV MWF #3 vial Ammonium Lactate 12% [Lac-Hydrin 12% Lotion (225 g)] 1 applic TOP DAILY #1 bottle Dexamethasone/Tobramycin [Tobradex Opht Susp] 2 drop OU Q4 #1 bottle Losartan [Cozaar] 50 mg PO QPM #30 tab Vancomycin 1gm in NS 250ml [Vancomycin 1gm] 1 gm IV MWF #3 bag - Follow Up Plan Condition: CRITICAL Disposition: HOME/ ROUTINE Instructions: End Stage Kidney Disease (DC), Small Bowel Resection (DC) Additional Instructions: follow up with and in [address] [place] [address] change abd dressing with dry gauze dressing daily. Referrals: Ysabel Gee [Family Provider] - Coy Kyle MD [Staff Provider] - Kobe Rodríguez MD [Staff Provider] -
[2018-12-04 12:37] VITALS: BP 135/75; PULSE 98; TEMP 98.4
--- NOTE | 2018-12-17 14:28 | OP ---
PROCEDURE DATE: 11/11/2018 PREOPERATIVE DIAGNOSIS: Ischemic bowel. POSTOPERATIVE DIAGNOSIS: Ischemic bowel. PROCEDURE: Exploratory laparotomy, resection of small bowel with a jejuno to ileal anastomosis. SURGEON: Coy Kyle MD. SOFTWARE DEVELOPER MANAGER: Dr. Beck, TYPE OF ANESTHESIA: General. ESTIMATED BLOOD LOSS: 100 mL. OPERATIVE FINDINGS: Ischemic bowel from approximately 1 foot beyond ligament of Treitz to approximately 1 foot prior to ileocecal valve. DESCRIPTION OF PROCEDURE: The patient was taken to the operating room and placed supine on the operating table. After induction of general anesthesia, the abdomen was prepped and draped in the standard surgical fashion. The patient had a midline laparotomy made using a #10 blade, carried down through the skin, subcutaneous tissues. The electrocautery was then used to achieve hemostasis. The fascia was then encountered and the fascia was nicked with the electrocautery, grasped between clamps and pulled upwards and the peritoneal cavity was then entered. Wine colored fluid and ischemic bowel was immediately visualized within the abdominal cavity. At that point, the patient had the fluid aspirated from the abdominal cavity and the small bowel was eviscerated. The bowel was then traced back to the ligament of Treitz and the bowel was viable approximately 1 foot past the ligament of Treitz. The bowel was run completely from that point on and was found to be ischemic until approximately 1 foot prior to the ileocecal valve. The ileocecal valve, the colon in both the ascending, transverse, descending and sigmoid were all viable. At that point, it was decided that the small bowel, which was ischemic had to be resected and a JAGDEEP stapler was used to fire across the bowel proximally and distally to separate it. LigaSure was then used to take the mesentery. Once the entire specimen of small bowel was removed, it was passed off the field as a specimen. The remaining small bowel was then brought together in a [id number] fashion, 3-[address] stay sutures and an enterotomy was made in each segment of small bowel. The stapler was then fired in between the two and the resulting enterotomy was closed using a TA-60 stapler. The patient then had the suture line oversewn using 3-0 chromic sutures and this was brought back into the abdomen. The bowel was examined. The bowel appeared to be viable. At that point, the abdomen was irrigated. The irrigant was removed and the abdominal fascia was closed using #1-PDS in a running continuous fashion. The patient had the skin closed with miranda. The patient was then awakened and transported to recovery in critical condition. Sponge, instrument, needle counts were correct at the end of the case. Coy Kyle MD cc: Aleksandra Maldonado MD
== END 2018-12-04 12:50 | disposition home or self-care (01) | DRG 853 ==
LOC: H.ER 09:07 → H.ERHOLD 11:22 → H.ICU/CCU 13:05 → H.MEDSURG1 11-15 22:15 → H.TEL 11-16 00:39
PROVIDERS: ADMIT Internal Medicine; ATTEND Internal Medicine
PROC: 0WJP0ZZ Inspection of Gastrointestinal Tract, Open Approach (ICD-10-PCS; 2018-11-11)
PROC: 0DTA0ZZ Resection of Jejunum, Open Approach (ICD-10-PCS; 2018-11-11)
PROC: 5A1D70Z Performance of Urinary Filtration, Intermittent, Less than 6 Hours Per Day (ICD-10-PCS; principal; 2018-11-12)
DX: A41.9 Sepsis, unspecified organism (principal); N18.6 End stage renal disease; R65.21 Severe sepsis with septic shock; I12.0 Hypertensive chronic kidney disease with stage 5 chronic kidney disease or end stage renal disease; K31.1 Adult hypertrophic pyloric stenosis; E87.2 Acidosis; K56.609 Unspecified intestinal obstruction, unspecified as to partial versus complete obstruction; N25.81 Secondary hyperparathyroidism of renal origin; D64.9 Anemia, unspecified; Z86.73 Personal history of transient ischemic attack (TIA), and cerebral infarction without residual deficits; E78.00 Pure hypercholesterolemia, unspecified; E11.22 Type 2 diabetes mellitus with diabetic chronic kidney disease; G47.33 Obstructive sleep apnea (adult) (pediatric); E11.51 Type 2 diabetes mellitus with diabetic peripheral angiopathy without gangrene; F32.9 Major depressive disorder, single episode, unspecified; E66.09 Other obesity due to excess calories; Z89.431 Acquired absence of right foot; R06.89 Other abnormalities of breathing; K29.70 Gastritis, unspecified, without bleeding; E83.39 Other disorders of phosphorus metabolism; E86.1 Hypovolemia; K21.0 Gastro-esophageal reflux disease with esophagitis; Z72.0 Tobacco use; Z79.84 Long term (current) use of oral hypoglycemic drugs; Z99.2 Dependence on renal dialysis; Z88.0 Allergy status to penicillin; Z87.19 Personal history of other diseases of the digestive system

== ENCOUNTER 2018-12-05 17:14 | Inpatient (IN) | payer OTHER ==
[2018-12-05 17:14] VITALS: BMI 40.4
--- NOTE | 2018-12-05 18:26 | ED PDOC ---
HPI:Nausea, Vomiting, Diarrhea Time Seen by Provider: 12/05/18 17:34 Chief Complaint (Nursing): GI Problem Chief Complaint (Provider): GI Problem History Per: Patient History/Exam Limitations: no limitations Onset/Duration Of Symptoms: Days (x 1) Current Symptoms Are (Timing): Still Present Associated Symptoms: Vomiting Additional Complaint(s): 47 year old male with a history of diabetes, ESRD and right BKA presents to the ED via EMS with for evaluation of multiple episodes of vomiting and diarrhea. Patient has been vomiting since he woke up this morning.EMS reports 3 episodes of blood tinged vomit on the way to the ED. Patient was admitted to this hospital on 11/11/2018 for bowel perforation and had surgery performed by Dr. Kyle. He was discharged yesterday. Also complains of diarrhea since the surgery. Patient usually goes to dialysis on Saturday, Saturday and Saturday and had to miss today's treatment because of vomiting. Otherwise denies abdominal pain, chest pain, fever, shortness of breath and other complaints. PMD: Dr Ysabel Brunner Second Miller: Dr Rodríguez Past Medical History Reviewed: Historical Data, Nursing Documentation, Vital Signs Vital Signs: Last Vital Signs Temp 97.7 F 12/05/18 17:23 Pulse 137 H 12/05/18 17:23 Resp 20 12/05/18 17:23 BP 185/101 H 12/05/18 17:23 Pulse Ox 100 12/05/18 17:23 - Medical History PMH: Anemia, CVA, Diabetes (type II), Gastritis, HTN, Hypercholesterolemia, Hyperlipidemia, End Stage Renal Disease, Chronic Kidney Disease Denies: Arthritis, CHF, COPD, HIV, Hypothyroidism, Rheumatoid Arthritis - Surgical History Other surgeries: right BKA amputation, craniotomy and bowel resection - Family History Family History: States: Unknown Family Hx - Immunization History Hx Tetanus Toxoid Vaccination: No Hx Influenza Vaccination: No Hx Pneumococcal Vaccination: No - Home Medications Home Medications: Ambulatory Orders Medication Instructions Recorded RX: Ferrous Sulfate [Feosol] 325 mg PO TID 10/16/18 RX: Allopurinol [Zyloprim] 100 mg PO DAILY #30 tab 11/06/18 RX: Calcitriol 0.25 mcg PO TID 30 Days capsule 11/06/18 RX: Folic Acid 1 mg PO DAILY #30 tab 11/06/18 RX: Gabapentin [Neurontin] 100 mg PO TID 30 Days capsule 11/06/18 RX: GlipiZIDE [Glucotrol] 10 mg PO BID 30 Days tab 11/06/18 RX: Metoprolol Tartrate [Lopressor] 12.5 mg PO BIDCC 30 Days tab 11/06/18 RX: NIFEdipine ER [Procardia XL] 60 mg PO QPM [address] 11/06/18 RX: Pantoprazole [Protonix EC Tab] 40 mg PO DAILY 30 Days ect 11/06/18 RX: Rosuvastatin Calcium [Crestor] 5 mg PO HS 30 Days tab 11/06/18 Amikacin [Amikacin 500 mg/2ml Inj] 500 mg IV MWF #3 vial 12/04/18 RX: Ammonium Lactate 12% 1 applic TOP DAILY #1 bottle 12/04/18 [Lac-Hydrin 12% Lotion (225 g)] RX: Dexamethasone/Tobramycin 2 drop OU Q4 #1 bottle 12/04/18 [Tobradex Opht Susp] RX: Epoetin Mitchell [Procrit] 10,000 unit IV MWF ml 12/04/18 RX: Losartan [Cozaar] 50 mg PO QPM #30 tab 12/04/18 RX: Vancomycin 1gm in NS 250ml 1 gm IV MWF #3 bag 12/04/18 [Vancomycin 1gm] Insulin Lispro [humALOG] 7 unit SC ACTID 12/05/18 RX: SITagliptin [Januvia] 25 mg PO BID 12/05/18 Vitamin B Complex/Vit C/Folic 1 tab PO DAILY 12/05/18 [Nephro-Elsa] - Allergies Allergies/Adverse Reactions: Allergies Allergy/AdvReac Type Severity Reaction Status Date / Time Penicillins Allergy RASH Verified 12/05/18 17:23 Review of Systems ROS Statement: Except As Marked, All Systems Reviewed And Found Negative Constitutional: Negative for: Fever, Chills Cardiovascular: Negative for: Chest Pain Respiratory: Negative for: Cough, Shortness of Breath Gastrointestinal: Positive for: Vomiting, Diarrhea. Negative for: Nausea, Abdominal Pain Physical Exam - Reviewed Nursing Documentation Reviewed: Yes Vital Signs Reviewed: Yes - Physical Exam Appears: Positive for: No Acute Distress Head Exam: Positive for: ATRAUMATIC, NORMAL INSPECTION, NORMOCEPHALIC Skin: Positive for: Normal Color, Warm, Dry Eye Exam: Positive for: EOMI, Normal appearance, PERRL Neck: Positive for: Normal, Painless ROM, Supple Cardiovascular/Chest: Positive for: Tachycardia (with regular rhythm). Negative for: Murmur Respiratory: Positive for: Normal Breath Sounds. Negative for: Respiratory Distress Gastrointestinal/Abdominal: Positive for: Soft, Other (scar on abdomen; clear discharge and small area of dehiscence at site). Negative for: Tenderness, Distended, Guarding Extremity: Positive for: Normal ROM (upper and lower extremities). Negative for: Deformity, Swelling Neurologic/Psych: Positive for: Alert, Oriented (x 3). Negative for: Motor/Sensory Deficits - Laboratory Results Result Diagrams: 12/05/18 18:28 12/05/18 18:28 - ECG O2 Sat by Pulse Oximetry: 100 (RA) Pulse Ox Interpretation: Normal Medical Decision Making Medical Decision Makin:56 Impression: vomiting with blood Differential diagnoses: gastroparesis, SBO and upper GI bleed Initial Plan: --Blood type --CT Abd & Pelvis w contrast --EKG --CMP --CBC --Mag --Phos --PTT/PT --Protonix Inj 40 mg IVP --Reglan 10 mg in NS IVPB 19:00 --Patient signed out to Dr. Alcazar pending CT and reevaluation. Scribe Attestation: Documented by Yelena Lan acting as a scribe for Shaunna Carias MD Provider Scribe Attestation: All medical record entries made by the Scribe were at my direction and personally dictated by me. I have reviewed the chart and agree that the record accurately reflects my personal performance of the history, physical exam, medical decision making, and the department course for this patient. I have also personally directed, reviewed, and agree with the discharge instructions and disposition. Disposition - Clinical Impression Clinical Impression: Abdominal wall abscess, Gastroparesis - Patient ED Disposition Is Patient to be Admitted: Transfer of Care Counseled Patient/Family Regarding: Studies Performed, Diagnosis - Disposition Disposition: Transfer of Care Disposition Time: 19:00 Condition: FAIR Patient Signed Over To: Baljinder Alcazar Present On Arrival: Poor Glycemic Control Procedures - EJ/Peripheral Line Consent Obtained: verbal consent Time Out Performed: Yes Skin Cleansed in Sterile Fashion: Yes Size: 20 IV Secured and Dressing Applied: Yes Patient Tolerated Procedure: Well Additional comments: left EJ cannulation performed by this provider using 20 eusebio IV. Patient tolerated procedure well. No complications.
[2018-12-05 18:31] LABS: BASO # 0.1 K/uL (0.0-0.2); BASO % 0.9 % (0.0-2.0); EOS % 0.1 % (0.0-4.0); HEMOGLOBIN 10.5 g/dL (12.0-18.0); LYMPH # 1.2 K/uL (1.0-4.3); LYMPH % 8.4 % (20.0-40.0); MEAN CELL VOLUME 76.5 fl (80.0-94.0); MEAN CORPUSCULAR HEMOGLOBIN 23.7 pg (27.0-31.0); MEAN PLATELET VOLUME 7.4 fl (7.2-11.7); MONO # 0.6 K/uL (0.0-0.8); MONO % 4.1 % (0.0-10.0); NEUT # 12.2 K/uL (1.8-7.0); NEUT % 86.5 % (50.0-75.0); NRBC % 0.2 % (0.0-0.0); PLATELET COUNT 387 K/uL (130-400); RBC 4.43 Mil/uL (4.40-5.90); RED CELL DISTRIBUTION WIDTH 20.3 % (11.5-14.5); WHITE BLOOD COUNT 14.1 K/uL (4.8-10.8)
[2018-12-05 19:01] LABS: INR 1.5; PROTHROMBIN TIME 16.8 Seconds (9.8-13.1)
[2018-12-05 19:03] LABS: ALB/GLOB RATIO 0.9 (1.0-2.1); ALBUMIN 3.9 g/dL (3.5-5.0); CALCIUM 9.3 mg/dL (8.4-10.2)
[2018-12-05 19:04] LABS: PARTIAL THROMBOPLASTIN TIME 38.1 Seconds (25.6-37.1)
[2018-12-05 19:23] LABS: ANISOCYTOSIS MODERATE; BANDS 1 % (0-2); BASOPHIL 1 % (0-2); HYPOCHROMIC MODERATE; LYMPHOCYTE 9 % (20-50); MONOCYTE 5 % (0-10); NEUTROPHIL 84 % (42-75); PLATELET ESTIMATE NORMAL (NORMAL); TEARDROP CELLS SLIGHT; TOTAL CELLS COUNTED 100
--- NOTE | 2018-12-05 19:43 | ED PDOC ---
- Laboratory Results Result Diagrams: 12/05/18 18:28 12/05/18 18:28 - ECG O2 Sat by Pulse Oximetry: 100 (RA) Pulse Ox Interpretation: Normal Medical Decision Making Medical Decision Makin:00 --Patient signed out to this provider by Dr. Carias pending CT and reevaluation. [id number] Abdomen/Pelvis CT Findings Lower thorax Unremarkable. Liver Unremarkable. No gross lesion or ductal dilatation. Gallbladder and bile ducts Gallbladder is distended. There is vicarious excretion of contrast into the gallbladder. Pancreas Unremarkable. No gross lesion or ductal dilatation. Spleen Unremarkable. Adrenals Unremarkable. No mass. Kidneys and ureters Unremarkable. No hydronephrosis. No solid mass. Vasculature Unremarkable. No aortic aneurysm. Bowel Postsurgical changes are present in the right lower quadrant in association of small bowel. Appendix Normal appendix. Peritoneum Unremarkable. No free fluid. No free air. Lymph nodes Unremarkable. No enlarged lymph nodes. Bladder Under-distended. Reproductive Prostate gland is unremarkable. Bones No acute fracture. Other Findings Note is made of a large heterogeneously enhancing lesion in the anterior abdominal wall extending through umbilicus and into the supraumbilical area containing multiple air bubble collections and measures 15 cm in craniocaudal dimension and 3.5 cm in AP dimension. This is stable since the prior study. Impression Overall, no significant interval change. Findings consistent with enlarged anterior abdominal wall abscess. 0058 D/W Dr. Barrera, covering for Dr. Rodríguez who will consult on case and arrange hemodialysis. D/W with Dr. Lake, who accepts patient under his service (covers Dr Supa Gee) D/W to Dr. Oshea covering for Dr. Kyle; human resources vice president Dr. Vu made aware of consult, patient will be admitted for gastroparesis and anterior abdominal wall abscess. Dx Gastroparesis, Anterior abdominal Wall Fluid Collection/Abscess, CKD on Hemodialysis Fair Scribe Attestation: Documented by Yelena Lan acting as a scribe for Baljinder Alcazar MD Provider Scribe Attestation: All medical record entries made by the Scribe were at my direction and personally dictated by me. I have reviewed the chart and agree that the record accurately reflects my personal performance of the history, physical exam, medical decision making, and the department course for this patient. Disposition - Clinical Impression Clinical Impression: Abdominal wall abscess, Gastroparesis - POA Present On Arrival: Poor Glycemic Control, Surgical Site Infection - Disposition Disposition: Admitted as In-Patient Disposition Time: 00:00 Condition: FAIR
[2018-12-05] MEDS ORDERED: Sodium Chloride 0.9% 50 ML IV ONE (21:58)
[2018-12-05] MEDS ORDERED: Iohexol 300 100 ML IJ ONE (21:58)
--- NOTE | 2018-12-06 01:00 | CP.PCM.CON ---
<HaroonelHenry interiano D - Last Filed: 12/06/18 06:57> History of Present Illness - History of Present Illness History of Present Illness: SURGERY CONSULT NOTE FOR DR. MCCOY Reason for consult: post op, nausea, vomiting 47M presents with nausea and vomiting which began earlier in the day. Patient was recently discharged from the hospital after 3 weeks of admission for significant small bowel resection for necrotic bowel. He was discharged yesterday. He states he has not been able to hold down food since getting home. He denies any pain at all, denies any fevers or chills. States he continues to have bowel function including diarrhea. Abdominal wall abscess which was being treated was getting treated at home by district home economics agent. He has not been able to pickle processor any of his medications since being discharged. He missed dialysis today. PMH: CVA, CKD, HTN, DM, PVD, necrotic bowel PSH: R TMA, R AVF, R IJ Permacath, small bowel resection of great length Social: admitted to tobacco abuse, denies alcohol, denies illicit drugs Allergies: Pencillins Past Patient History - Infectious Disease Hx of Infectious Diseases: None - Past Medical History & Family History Past Medical History?: Yes - Past Social History Smoking Status: Former Smoker - CARDIAC Hx Congestive Heart Failure: No Hx Hypercholesterolemia: Yes Hx Hypertension: Yes - PULMONARY Hx Chronic Obstructive Pulmonary Disease (COPD): No - NEUROLOGICAL Hx Neurological Disorder: Yes HX Cerebrovascular Accident: Yes - HEENT Hx HEENT Problems: No - RENAL Hx Chronic Kidney Disease: Yes - ENDOCRINE/METABOLIC Hx Hypothyroidism: No - HEMATOLOGICAL/ONCOLOGICAL Hx Anemia: Yes Hx Human Immunodeficiency Virus (HIV): No - INTEGUMENTARY Hx Dermatological Problems: No - MUSCULOSKELETAL/RHEUMATOLOGICAL Hx Arthritis: No Hx Rheumatoid Arthritis: No - GASTROINTESTINAL Hx Gastritis: Yes - GENITOURINARY/GYNECOLOGICAL Hx Genitourinary Disorders: No - PSYCHIATRIC Hx Psychophysiologic Disorder: No Hx Substance Use: No - SURGICAL HISTORY Hx Surgeries: Yes Hx Amputation: Yes (tma right foot) Other/Comment: left suboccipital craniotomy and right ankle surgery - ANESTHESIA Hx Anesthesia: Yes Hx Anesthesia Reactions: No Hx Malignant Hyperthermia: No Meds Allergies/Adverse Reactions: Allergies Allergy/AdvReac Type Severity Reaction Status Date / Time Penicillins Allergy RASH Verified 12/05/18 17:23 Physical Exam - Constitutional Appears: Non-toxic, No Acute Distress Additional comments: uncomfortable due to nausea - ENT Exam ENT Exam: Mucous Membranes Moist - Respiratory Exam Respiratory Exam: Clear to Auscultation Bilateral, NORMAL BREATHING PATTERN - Cardiovascular Exam Cardiovascular Exam: REGULAR RHYTHM, +S1, +S2 - GI/Abdominal Exam GI & Abdominal Exam: Soft. absent: Distended, Firm, Guarding, Rebound, Rigid, Tenderness Additional comments: midline incision draining purulent fluid - Extremities Exam Extremities exam: Negative for: pedal edema, tenderness - Neurological Exam Neurological exam: Alert, Oriented x3 - Skin Skin Exam: Dry, Intact, Normal Color, Warm Results - Vital Signs Recent Vital Signs: Last Vital Signs Temp 98.2 F 12/05/18 23:30 Pulse 114 H 12/05/18 23:30 Resp 16 12/05/18 23:30 BP 129/72 12/05/18 23:30 Pulse Ox 100 12/05/18 23:44 - Labs Result Diagrams: 12/05/18 18:28 12/05/18 18:28 Labs: Laboratory Results - last 24 hr 12/05/18 12/05/18 12/05/18 18:20 18:20 18:28 WBC 14.1 H RBC 4.43 Hgb 10.5 L Hct 33.9 L MCV 76.5 L MCH 23.7 L MCHC 31.0 L RDW 20.3 H Plt Count 387 MPV 7.4 Neut % (Auto) 86.5 H Lymph % (Auto) 8.4 L [place] % (Auto) 4.1 Eos % (Auto) 0.1 Baso % (Auto) 0.9 Neut # (Auto) 12.2 H Lymph # (Auto) 1.2 [place] # (Auto) 0.6 Eos # (Auto) 0.0 Baso # (Auto) 0.1 Neutrophils % (Manual) 84 H Band Neutrophils % 1 Lymphocytes % (Manual) 9 L Monocytes % (Manual) 5 Basophils % (Manual) 1 Platelet Estimate Normal Hypochromasia (manual) Moderate Anisocytosis (manual) Moderate Tear Drop Cells Slight PT 16.8 H INR 1.5 APTT 38.1 H Sodium Potassium Chloride Carbon Dioxide Anion Gap BUN Creatinine Est GFR ( Amer) Est GFR (Non-Af Amer) Random Glucose Calcium Magnesium Total Bilirubin AST ALT Alkaline Phosphatase Total Protein Albumin Globulin Albumin/Globulin Ratio Lipase Blood Type O NEGATIVE Antibody Screen Negative BBK History Checked Patient has bt 12/05/18 18:28 WBC RBC Hgb Hct MCV MCH MCHC RDW Plt Count MPV Neut % (Auto) Lymph % (Auto) [place] % (Auto) Eos % (Auto) Baso % (Auto) Neut # (Auto) Lymph # (Auto) [place] # (Auto) Eos # (Auto) Baso # (Auto) Neutrophils % (Manual) Band Neutrophils % Lymphocytes % (Manual) Monocytes % (Manual) Basophils % (Manual) Platelet Estimate Hypochromasia (manual) Anisocytosis (manual) Tear Drop Cells PT INR APTT Sodium 139 Potassium 3.5 L Chloride 96 L Carbon Dioxide 24 Anion Gap 23 H BUN 34 H Creatinine 7.8 H* D Est GFR ( Amer) 9 Est GFR (Non-Af Amer) 7 Random Glucose 184 H Calcium 9.3 Magnesium 1.5 L Total Bilirubin 0.6 AST 23 ALT 21 Alkaline Phosphatase 131 H Total Protein 8.2 Albumin 3.9 Globulin 4.3 H Albumin/Globulin Ratio 0.9 L Lipase 140 Blood Type Antibody Screen BBK History Checked Assessment & Plan - Assessment and Plan (Free Text) Assessment: 47M with s/p small bowel resection POD#24 presents with gastritis Plan: NPO IVF Anti emetics Pepcid Local wound care Dialysis as needed Discussed with Dr. Kiran Hodges, PGY3 <Fernando Beck - Last Filed: 12/06/18 12:22> Meds - Medications Medications: Current Medications Allopurinol (Zyloprim) 100 mg PO DAILY [facility] Last Admin: 12/06/18 10:30 Dose: 100 mg Calcitriol (Rocaltrol) 0.25 mcg PO TID [facility] Last Admin: 12/06/18 10:29 Dose: 0.25 mcg Epoetin Mitchell (Procrit) 10,000 unit IV MWF [facility] Ferrous Sulfate (Feosol) 325 mg PO TID [facility] Last Admin: 12/06/18 10:28 Dose: 325 mg Folic Acid (Folic Acid) 1 mg PO DAILY [facility] Last Admin: 12/06/18 10:28 Dose: 1 mg Gabapentin (Neurontin) 100 mg PO TID [facility] Last Admin: 12/06/18 10:29 Dose: 100 mg Glipizide (Glucotrol) 10 mg PO BID [facility] Last Admin: 12/06/18 10:27 Dose: 10 mg Heparin Sodium (Porcine) (Heparin) 5,000 units SC Q8 [facility]; Protocol Last Admin: 12/06/18 10:28 Dose: 5,000 units Sodium Chloride (Sodium Chloride 0.9%) 1,000 mls @ 150 mls/hr IV .Q6H40M [facility] Stop: 12/07/18 01:07 Last Admin: 12/06/18 02:30 Dose: 150 mls/hr Insulin Human Lispro (Humalog) 7 units SC ACTID [facility] Last Admin: 12/06/18 09:52 Dose: 7 u Lactic Acid (Lac-Hydrin 12% Lotion (225 G)) 1 applic TOP DAILY [facility] Last Admin: 12/06/18 09:54 Dose: 1 u Losartan Potassium (Cozaar) 50 mg PO QPM [facility] Metoclopramide HCl (Reglan) 10 mg IVP Q8 [facility] Last Admin: 12/06/18 10:57 Dose: 10 mg Metoprolol Tartrate (Lopressor) 12.5 mg PO BIDWM [facility] Last Admin: 12/06/18 09:54 Dose: Not Given Nifedipine (Procardia Xl) 60 mg PO QPM [facility] Ondansetron HCl (Zofran Inj) 4 mg IVP Q6 PRN PRN Reason: Nausea/Vomiting Last Admin: 12/06/18 06:30 Dose: 4 mg Pantoprazole Sodium (Protonix Ec Tab) 40 mg PO DAILY [facility] Last Admin: 12/06/18 10:29 Dose: 40 mg Sitagliptin Phosphate (Januvia) 25 mg PO DAILY [facility] Last Admin: 12/06/18 10:28 Dose: 25 mg Tobramycin/Dexamethasone (Tobradex Opht Susp) 2 drop OU Q4 [facility] Last Admin: 12/06/18 10:30 Dose: 2 unit Vitamin B Complex/Vit C/Folic Acid (Nephro-Elsa) 1 tab PO DAILY [facility] Last Admin: 12/06/18 10:29 Dose: 1 tab Results - Vital Signs Recent Vital Signs: Last Vital Signs Temp 98.2 F 12/06/18 08:19 Pulse 100 H 12/06/18 09:53 Resp 20 12/06/18 08:19 BP 157/80 H 12/06/18 09:53 Pulse Ox 100 12/06/18 10:38 - Labs Result Diagrams: 12/05/18 18:28 12/05/18 18:28 Labs: Laboratory Results - last 24 hr 12/05/18 12/05/18 12/05/18 18:20 18:20 18:28 WBC 14.1 H RBC 4.43 Hgb 10.5 L Hct 33.9 L MCV 76.5 L MCH 23.7 L MCHC 31.0 L RDW 20.3 H Plt Count 387 MPV 7.4 Neut % (Auto) 86.5 H Lymph % (Auto) 8.4 L [place] % (Auto) 4.1 Eos % (Auto) 0.1 Baso % (Auto) 0.9 Neut # (Auto) 12.2 H Lymph # (Auto) 1.2 [place] # (Auto) 0.6 Eos # (Auto) 0.0 Baso # (Auto) 0.1 Neutrophils % (Manual) 84 H Band Neutrophils % 1 Lymphocytes % (Manual) 9 L Monocytes % (Manual) 5 Basophils % (Manual) 1 Platelet Estimate Normal Hypochromasia (manual) Moderate Anisocytosis (manual) Moderate Tear Drop Cells Slight PT 16.8 H INR 1.5 APTT 38.1 H Sodium Potassium Chloride Carbon Dioxide Anion Gap BUN Creatinine Est GFR ( Amer) Est GFR (Non-Af Amer) POC Glucose (mg/dL) Random Glucose Calcium Magnesium Total Bilirubin AST ALT Alkaline Phosphatase Total Protein Albumin Globulin Albumin/Globulin Ratio Lipase Blood Type O NEGATIVE Antibody Screen Negative BBK History Checked Patient has bt 12/05/18 12/06/18 12/06/18 18:28 06:01 11:05 WBC RBC Hgb Hct MCV MCH MCHC RDW Plt Count MPV Neut % (Auto) Lymph % (Auto) [place] % (Auto) Eos % (Auto) Baso % (Auto) Neut # (Auto) Lymph # (Auto) [place] # (Auto) Eos # (Auto) Baso # (Auto) Neutrophils % (Manual) Band Neutrophils % Lymphocytes % (Manual) Monocytes % (Manual) Basophils % (Manual) Platelet Estimate Hypochromasia (manual) Anisocytosis (manual) Tear Drop Cells PT INR APTT Sodium 139 Potassium 3.5 L Chloride 96 L Carbon Dioxide 24 Anion Gap 23 H BUN 34 H Creatinine 7.8 H* D Est GFR ( Amer) 9 Est GFR (Non-Af Amer) 7 POC Glucose (mg/dL) 136 H 206 H Random Glucose 184 H Calcium 9.3 Magnesium 1.5 L Total Bilirubin 0.6 AST 23 ALT 21 Alkaline Phosphatase 131 H Total Protein 8.2 Albumin 3.9 Globulin 4.3 H Albumin/Globulin Ratio 0.9 L Lipase 140 Blood Type Antibody Screen BBK History Checked Assessment & Plan - Assessment and Plan (Free Text) Plan: pt recently discharged s/p exlap with SB resection due to ischemic and was being treated for wound infection. Pt admitted with nausea, vomiting Pt seen this morning tolerated breakfast reports some nausea but no vomiting. +BM/ flatus awake, alert, NAD no acute respiratory distress abd: soft, obese, ND, no peritoneal signs, midline wound healing, open wound to mid portion of incision with some purulent drainage a/p cont daily packing changes to midline wound nausea, vomiting likely recomendary to gastroparesis - recommend reglan PO Q6, f/u GI no acute surgical intervention
[2018-12-06] MEDS ORDERED: Sodium Chloride 0.9% 1,000 ML IV SCH (01:15)
--- NOTE | 2018-12-06 06:55 | CT ---
Date of service: 12/05/2018 PROCEDURE: CT Abdomen and Pelvis with contrast HISTORY: vomiitng hx of gastroparesois and colon resection COMPARISON: 12/03/2018 TECHNIQUE: Contrast dose: Radiation dose: Total exam DLP = 920.53 mGy-cm. This CT exam was performed using one or more of the following dose reduction techniques: Automated exposure control, adjustment of the mA and/or kV according to patient size, and/or use of iterative reconstruction technique. FINDINGS: LOWER THORAX: Unremarkable. LIVER: Unremarkable. No gross lesion or ductal dilatation. GALLBLADDER AND BILE DUCTS: Unremarkable. PANCREAS: Unremarkable. No gross lesion or ductal dilatation. SPLEEN: Unremarkable. ADRENALS: Unremarkable. No mass. KIDNEYS AND URETERS: Unremarkable. No hydronephrosis. No solid mass. VASCULATURE: Unremarkable. No aortic aneurysm. No aortic atherosclerotic calcification or mural plaque present. BOWEL: Previous bowel surgery no obstruction. No gross mural thickening. APPENDIX: Normal appendix. PERITONEUM: Unremarkable. No free fluid. No free air. LYMPH NODES: Unremarkable. No enlarged lymph nodes. BLADDER: Unremarkable. REPRODUCTIVE: Unremarkable. BONES: No acute fracture. OTHER FINDINGS: Stable umbilical abscess tracking superiorly measuring roughly 3 centimeters in transverse dimension containing fluid and gas particles. IMPRESSION: Stable umbilical abscess tracking superiorly measuring roughly 3 centimeters in transverse dimension containing fluid and gas particles.
[2018-12-06] MEDS ORDERED: Sodium Chloride 0.9% 500 ML IV SCH (08:30)
[2018-12-06] MEDS: Insulin Lispro (humaLOG) 100 Units/ml Inj SC SCH ×3 (09:52→17:00)
[2018-12-06] MEDS: Pantoprazole 40 mg EC Tab PO SCH (10:29)
[2018-12-06] MEDS: Multivitamin Vitamin B Complex (Nephro-Vite) Tab PO SCH (10:29)
[2018-12-06] MEDS: Dexamethasone/Tobramycin Ophth Susp OU SCH ×4 (10:30→22:55)
[2018-12-06] MEDS ORDERED: EPOETIN ALFA 10,000 UNIT/ML ML IV ONE (16:45)
[2018-12-06] MEDS: NIFEdipine 60 mg ER Tab PO SCH (18:16)
--- NOTE | 2018-12-06 18:57 | HP ---
CHIEF COMPLAINT: Intractable vomiting. HISTORY OF PRESENT ILLNESS: This is a 47-year-old male who was recently discharged from the hospital after a prolonged hospital stay for intestine resection. The patient woke up today morning with intractable vomiting and was not able to hold anything down, so the patient was brought to the emergency room and was admitted for further management. REVIEW OF SYSTEMS: Positive for non-stopping vomiting. Review of systems otherwise is negative for headache, dizziness, syncope, loss of consciousness, chest pain, shortness of breath, nausea, vomiting, diarrhea, constipation or abdominal pain. No new joint or extremity pain. Review of systems of all other organ system is unremarkable. PAST MEDICAL HISTORY: Significant for diabetes; hypertension; chronic kidney disease leading to end-stage renal disease, on dialysis; history of CVA; peripheral vascular disease and intestinal ischemia. PAST SURGICAL HISTORY: Remarkable for amputations, dialysis-related surgery and a recent intestinal ischemia leading to small bowel resection of about 200 cm. PERSONAL HISTORY: The patient is a smoker, but no alcohol or substance abuse. MEDICATIONS: The patient is on multiple medications which are as per reconciliation sheet, which were reviewed in order. ALLERGIES: THE PATIENT IS NOT ALLERGIC TO ANY MEDICATIONS OTHER THAN PENICILLIN. FAMILY HISTORY: Noncontributory. PHYSICAL EXAMINATION GENERAL: A well-built, well-nourished, overweight, chronically sick-looking 47-year-old male in no acute distress. VITAL SIGNS: Temperature 98.2, pulse 100, respirations 20, blood pressure 157/80. HEENT: Pupils are reacting to light. No nystagmus. Normocephalic and atraumatic scalp. NECK: No JVD, no thyromegaly, no lymphadenopathy. HEART: S1 and S2 normal and regular. No significant murmur, gallop or rub is heard. LUNGS: Show good bilateral air exchange. No rales or rhonchi. ABDOMEN: Soft and nontender. No organomegaly, no fluid. Bowel sounds are present and normal. No sign of acute abdomen. No guarding, no rigidity, no rebound. The patient has a midline scar from a recent surgery. The open area in the middle is also closed. No sign of surrounding cellulitis. EXTREMITIES: The patient is status post amputation. No edema, no calf swelling or tenderness, no acute ischemia. CENTRAL NERVOUS SYSTEM: Essentially unchanged. There is no sign of any acute neurological event. DIAGNOSTIC DATA: Available diagnostic data reviewed. WBC 14, hemoglobin 10, hematocrit 33, platelets 387. Sodium 139, potassium 3.5, chloride 96, bicarbonate 24, BUN 34, creatinine 7.3. unremarkable. PT is 16, PTT is 38.1. CAT scan of abdomen reveals umbilical abscess, although there is no clinical sign of the same. EKG shows sinus tachycardia, but no acute ST-T changes. ADMITTING IMPRESSION: Intractable vomiting; gastroparesis, status post recent bowel surgery; type 2 diabetes with hyperglycemia; hypertension; peripheral vascular disease; end-stage renal disease, on dialysis. PLAN: As ordered. Case and plan were discussed with the patient. Joel Lake MD
--- NOTE | 2018-12-06 22:08 | CON ---
DATE: 12/06/2018 REFERRED BY: Joel Lake MD HISTORY OF PRESENT ILLNESS: This is an unfortunate 47-year-old gentleman with a history of multiple medical problems including longstanding diabetes mellitus, peripheral vascular disease, end-stage renal disease, for which he is on hemodialysis, and a known history of gastroparesis who had just been discharged yesterday after having been admitted and having had a surgery for an ischemic event of the small bowel requiring resection of about 5 cm of small bowel as per the surgeon. He came back in after being discharged yesterday with complaints of nausea, vomiting, and generalized discomfort in the abdomen. This morning by the time I got to the bedside, he was lying comfortably in bed, he had tolerated his breakfast, albeit a small amount. He states he no longer has any nausea or vomiting. He has not had any diarrhea, which he had been complaining of as well. He says he does not have any abdominal pain. He appears quite comfortable and nontoxic. MEDICATIONS: Here in the hospital, he is on losartan, iron supplementation, folic acid, and glipizide. He is on subcu heparin every 8 hours. He is on insulin, Januvia, metoprolol, and vitamin B. He is being given gabapentin 100 mg t.i.d. He has been receiving IV fluids, nifedipine, and erythropoietin injections. He has been started on pantoprazole 40 mg daily. He was started on oral Reglan, which, I switched over to the IV every 8 hours 10 mg. He is on Rocaltrol. He is receiving p.r.n. ondansetron, and he is also on allopurinol 100 mg daily. ALLERGIES: HE HAS AN ALLERGY TO PENICILLIN. PAST MEDICAL HISTORY: As per the HPI, along with having gout. He has a history of end-stage renal disease, on hemodialysis; diabetes; peripheral vascular disease; hypertension; and underlying coronary artery disease. PAST SURGICAL HISTORY: As mentioned as per the HPI. He just had a recent resection of his small bowel. FAMILY HISTORY: Noncontributory. SOCIAL HISTORY: No tobacco or drug use. PHYSICAL EXAMINATION: GENERAL: He is well-developed and well-nourished gentleman. Awake, alert, and oriented x 3, in no distress. He appears nontoxic. VITAL SIGNS: His vital signs are stable. He is afebrile. ABDOMEN: Soft with good bowel sounds. He does have a wound just above the umbilicus from an umbilical abscess. This has been drained and Surgery is evaluating that as we speak. LABORATORY DATA: Yesterday on admission: His white count was 14.1 with an hemoglobin of 10.5 and hematocrit of 33.9, platelet count 387. INR is 1.5. SMA-7 is remarkable for BUN and creatinine of 34 and 7.8. His potassium is little bit low at 3.4, but his LFTs are essentially unremarkable with a normal lipase. A CAT scan was done and shows the umbilical abscess that I mentioned and is stable. IMPRESSION AND PLAN: A 47-year-old gentleman with multiple medical problems and known history of gastroparesis, status post resection of small bowel after an ischemic event who came back and complained of nausea, vomiting, and diarrhea. Diarrhea seems to have subsided. As he has nausea and vomiting, he is eating small amounts. He does not have much of an appetite and is still recuperating from the surgery. At this point in time, I suggest we will keep him on pantoprazole 40 mg by mouth daily since he is not vomiting; however, I do want to keep the Reglan intravenously for now 10 mg every 8 hours for at least 24-48 hours, and then we can switch that over to the oral. If he is tolerating his food later today and tomorrow, he will probably be discharged home with outpatient followup at that point in time. Thank you very much for this referral. Anthony Hodges MD
--- NOTE | 2018-12-06 22:59 | CARD ---
APPROVED REPORT Date of service: 12/05/2018 EKG Measurement Heart [id number] <Conclusion> Sinus tachycardia Otherwise normal ECG
[2018-12-07] MEDS: Dexamethasone/Tobramycin Ophth Susp OU SCH ×5 (01:16→21:27)
--- NOTE | 2018-12-07 05:51 | CP.PCM.PN ---
Subjective - Date & Time of Evaluation Date of Evaluation: 12/07/18 Time of Evaluation: 05:35 - Subjective Subjective: Patient seen and examined. No acute events over night. Tolerated dialysis well yesterday. Abdominal wound packing changed. Scant purulent drainage noted and expressed. Sterile dressing applied. Denies n/v. Objective - Vital Signs/Intake and Output Vital Signs (last 24 hours): Temp Pulse Resp BP Pulse Ox 98 F 97 H 19 106/69 98 12/07/18 00:27 12/07/18 00:27 12/07/18 00:27 12/07/18 00:27 12/07/18 00:27 - Medications Medications: Current Medications Acetaminophen (Tylenol 325mg Tab) 650 mg PO Q6 PRN PRN Reason: Pain, Mild (1-3) Allopurinol (Zyloprim) 100 mg PO DAILY [facility] Last Admin: 12/06/18 10:30 Dose: 100 mg Calcitriol (Rocaltrol) 0.25 mcg PO TID [facility] Last Admin: 12/06/18 22:55 Dose: Not Given Epoetin Mitchell (Procrit) 10,000 unit IV [facility] Ferrous Sulfate (Feosol) 325 mg PO TID [facility] Last Admin: 12/06/18 18:17 Dose: 325 mg Folic Acid (Folic Acid) 1 mg PO DAILY [facility] Last Admin: 12/06/18 10:28 Dose: 1 mg Gabapentin (Neurontin) 100 mg PO TID [facility] Last Admin: 12/06/18 18:16 Dose: 100 mg Glipizide (Glucotrol) 10 mg PO BID [facility] Last Admin: 12/06/18 18:17 Dose: 10 mg Heparin Sodium (Porcine) (Heparin) 5,000 units SC Q8 [facility]; Protocol Last Admin: 12/07/18 01:15 Dose: 5,000 units Sodium Chloride (Sodium Chloride 0.9%) 500 mls @ 42 mls/hr IV .[id number] [facility] Last Admin: 12/06/18 20:50 Dose: Not Given Insulin Human Lispro (Humalog) 7 units SC ACTID [facility] Last Admin: 12/06/18 17:00 Dose: Not Given Lactic Acid (Lac-Hydrin 12% Lotion (225 G)) 1 applic TOP DAILY [facility] Last Admin: 12/06/18 09:54 Dose: 1 u Losartan Potassium (Cozaar) 50 mg PO QPM [facility] Last Admin: 12/06/18 18:18 Dose: Not Given Metoclopramide HCl (Reglan) 10 mg IVP Q8 [facility] Last Admin: 12/07/18 01:15 Dose: 10 mg Metoprolol Tartrate (Lopressor) 12.5 mg PO BIDWM [facility] Last Admin: 12/06/18 18:16 Dose: Not Given Nifedipine (Procardia Xl) 60 mg PO QPM [facility] Last Admin: 12/06/18 18:16 Dose: Not Given Ondansetron HCl (Zofran Inj) 4 mg IVP Q6 PRN PRN Reason: Nausea/Vomiting Last Admin: 12/06/18 06:30 Dose: 4 mg Pantoprazole Sodium (Protonix Ec Tab) 40 mg PO DAILY [facility] Last Admin: 12/06/18 10:29 Dose: 40 mg Sitagliptin Phosphate (Januvia) 25 mg PO DAILY [facility] Last Admin: 12/06/18 10:28 Dose: 25 mg Tobramycin/Dexamethasone (Tobradex Opht Susp) 2 drop OU Q4 [facility] Last Admin: 12/07/18 05:26 Dose: 2 drop Tramadol HCl (Ultram) 50 mg PO Q6 PRN PRN Reason: Pain, moderate (4-7) Last Admin: 12/06/18 21:39 Dose: 50 mg Vitamin B Complex/Vit C/Folic Acid (Nephro-Elsa) 1 tab PO DAILY [facility] Last Admin: 12/06/18 10:29 Dose: 1 tab - Labs Labs: 12/05/18 18:28 12/05/18 18:28 PT 16.8 Seconds (9.8-13.1) H 12/05/18 18:20 INR 1.5 12/05/18 18:20 APTT 38.1 Seconds (25.6-37.1) H 12/05/18 18:20 - Constitutional Appears: No Acute Distress - Head Exam Head Exam: NORMOCEPHALIC - Eye Exam Eye Exam: EOMI, Normal appearance - ENT Exam ENT Exam: Mucous Membranes Moist - Respiratory Exam Respiratory Exam: NORMAL BREATHING PATTERN - Cardiovascular Exam Cardiovascular Exam: +S1, +S2 - GI/Abdominal Exam GI & Abdominal Exam: Soft. absent: Distended, Firm, Guarding, Rigid, Tenderness, Rebound Additional comments: Abdominal wound incision with packing Scant purulent drainage - Neurological Exam Neurological Exam: Alert, Awake, Oriented x3 - Skin Skin Exam: Dry, Intact, Warm Assessment and Plan - Assessment and Plan (Free Text) Assessment: 47M with s/p small bowel resection POD#25 presents with gastroparesis Plan: C/w daily packing changes to midline wound C/w reglan PO Q6H GI recs appreciated no acute surgical intervention at this present time Further recs per Dr. Beck
[2018-12-07 07:04] LABS: HEMOGLOBIN 9.3 g/dL (12.0-18.0); MEAN CELL VOLUME 76.5 fl (80.0-94.0); MEAN CORPUSCULAR HEMOGLOBIN 23.6 pg (27.0-31.0); MEAN CORPUSCULAR HGB CONC 30.8 g/dL (33.0-37.0); RBC 3.95 Mil/uL (4.40-5.90); RED CELL DISTRIBUTION WIDTH 20.4 % (11.5-14.5); WHITE BLOOD COUNT 12.3 K/uL (4.8-10.8)
[2018-12-07 07:37] LABS: ALB/GLOB RATIO 0.8 (1.0-2.1); CALCIUM 7.7 mg/dL (8.4-10.2)
--- NOTE | 2018-12-07 08:05 | PN ---
DATE: 12/07/2018 SUBJECTIVE: The patient is seen and examined. Interim events noted. Consults noted and appreciated. Gastroenterology followup and intervention noted and appreciated. The patient remains in regular medical floor. Surgical followup noted and appreciated. The patient's lower end of incision was packed by surgeon. The patient had episodes of pain, which were relieved with Tylenol and Ultram. At this time, the patient has no pain. The patient tolerated food well. Vomiting stopped. No other specific medical complaint. No specific issue reported by nursing staff. PHYSICAL EXAMINATION: GENERAL: The patient is in no acute distress. VITAL SIGNS: Stable. HEART: S1 and S2, normal and regular. LUNGS: Good bilateral air exchange. ABDOMEN: Soft, nontender. EXTREMITIES: No edema. No calf swelling. No tenderness. No acute ischemia. CENTRAL NERVOUS SYSTEM: Exam is essentially unchanged. SKIN: The patient's lower abdominal wound is packed with packing. No sign of surrounding cellulitis. No active discharge. No sign of acute abdomen. No guarding. No rigidity. No rebound. ASSESSMENT: Overall, the patient's general medical condition is stable and improving. PLAN: As ordered. Joel Lake MD
[2018-12-07] MEDS: Insulin Lispro (humaLOG) 100 Units/ml Inj SC SCH ×3 (10:08→16:51)
[2018-12-07] MEDS: Multivitamin Vitamin B Complex (Nephro-Vite) Tab PO SCH (10:10)
[2018-12-07] MEDS: Pantoprazole 40 mg EC Tab PO SCH (10:10)
[2018-12-07] MEDS ORDERED: Dextrose 50% SYRINGE Inj (50 ml) ONE (16:24)
[2018-12-07] MEDS ORDERED: Dextrose 50% SYRINGE Inj (50 ml) IVP ONE (16:45)
--- NOTE | 2018-12-07 17:12 | CP.PCM.CON ---
History of Present Illness - History of Present Illness History of Present Illness: renal consult note 47M presents with dm esrd htn is admitted with nausea and vomiting, he has not been able to hold down food since getting home. He denies any pain at all, denies any fevers or chills. States he continues to have bowel function including diarrhea. He missed dialysis on saturday PMH: CVA, CKD, HTN, DM, PVD, necrotic bowel PSH: R TMA, R AVF, R IJ Permacath, small bowel resection of great length Social: admitted to tobacco abuse, denies alcohol, denies illicit drugs Allergies: Pencillins complete ros is negativ e vitals reviewed heent normal no jvd s1s2 present no resp distress abd soft nt nd ao times 3 no fnd cooperative esrd/htn/dm/anemia/diarrhea/abdominal abscess hd mwf continue per schedule lytes reviewed anemia stable epo as needed diarrhea suregry on board abx was supposed to be on vanco and amikacin, per primary team can reconsult id d/w bedside nursing Past Patient History - Infectious Disease Hx of Infectious Diseases: None - Past Medical History & Family History Past Medical History?: Yes - Past Social History Smoking Status: Former Smoker - CARDIAC Hx Congestive Heart Failure: No Hx Hypercholesterolemia: Yes Hx Hypertension: Yes - PULMONARY Hx Chronic Obstructive Pulmonary Disease (COPD): No - NEUROLOGICAL Hx Neurological Disorder: Yes HX Cerebrovascular Accident: Yes - HEENT Hx HEENT Problems: No - RENAL Hx Chronic Kidney Disease: Yes - ENDOCRINE/METABOLIC Hx Hypothyroidism: No - HEMATOLOGICAL/ONCOLOGICAL Hx Anemia: Yes Hx Human Immunodeficiency Virus (HIV): No - INTEGUMENTARY Hx Dermatological Problems: No - MUSCULOSKELETAL/RHEUMATOLOGICAL Hx Arthritis: No Hx Rheumatoid Arthritis: No - GASTROINTESTINAL Hx Gastritis: Yes - GENITOURINARY/GYNECOLOGICAL Hx Genitourinary Disorders: No - PSYCHIATRIC Hx Psychophysiologic Disorder: No Hx Substance Use: No - SURGICAL HISTORY Hx Surgeries: Yes Hx Amputation: Yes (tma right foot) Other/Comment: left suboccipital craniotomy and right ankle surgery - ANESTHESIA Hx Anesthesia: Yes Hx Anesthesia Reactions: No Hx Malignant Hyperthermia: No Meds Allergies/Adverse Reactions: Allergies Allergy/AdvReac Type Severity Reaction Status Date / Time Penicillins Allergy RASH Verified 12/05/18 17:23 - Medications Medications: Current Medications Acetaminophen (Tylenol 325mg Tab) 650 mg PO Q6 PRN PRN Reason: Pain, Mild (1-3) Allopurinol (Zyloprim) 100 mg PO DAILY [facility] Last Admin: 12/07/18 10:11 Dose: 100 mg Calcitriol (Rocaltrol) 0.25 mcg PO TID [facility] Last Admin: 12/07/18 12:54 Dose: 0.25 mcg Epoetin Mitchell (Procrit) 10,000 unit IV F [facility] Ferrous Sulfate (Feosol) 325 mg PO TID [facility] Last Admin: 12/07/18 12:54 Dose: 325 mg Folic Acid (Folic Acid) 1 mg PO DAILY [facility] Last Admin: 12/07/18 10:07 Dose: 1 mg Gabapentin (Neurontin) 100 mg PO TID [facility] Last Admin: 12/07/18 12:54 Dose: 100 mg Glipizide (Glucotrol) 10 mg PO BID [facility] Last Admin: 12/07/18 10:07 Dose: 10 mg Heparin Sodium (Porcine) (Heparin) 5,000 units SC Q8 [facility]; Protocol Last Admin: 12/07/18 10:08 Dose: 5,000 units Sodium Chloride (Sodium Chloride 0.9%) 500 mls @ 42 mls/hr IV .[id number] [facility] Last Admin: 12/06/18 20:50 Dose: Not Given Amikacin Sulfate 500 mg/ (Sodium Chloride) 102 mls @ 101.185 mls/hr IVPB [facility]; Protocol Vancomycin HCl 1 gm/ Sodium (Chloride) 250 mls @ 166.667 mls/hr IVPB [facility]; Protocol Insulin Human Lispro (Humalog) 7 units SC ACTID [facility] Last Admin: 12/07/18 16:51 Dose: Not Given Lactic Acid (Lac-Hydrin 12% Lotion (225 G)) 1 applic TOP DAILY [facility] Last Admin: 12/07/18 10:09 Dose: 1 u Losartan Potassium (Cozaar) 50 mg PO QPM [facility] Last Admin: 12/06/18 18:18 Dose: Not Given Metoclopramide HCl (Reglan) 10 mg IVP Q8 [facility] Last Admin: 12/07/18 08:09 Dose: 10 mg Metoprolol Tartrate (Lopressor) 12.5 mg PO BIDWM [facility] Last Admin: 12/07/18 10:09 Dose: 12.5 mg Metronidazole (Flagyl) 125 mg PO TID [facility]; Protocol Nifedipine (Procardia Xl) 60 mg PO QPM [facility] Last Admin: 12/06/18 18:16 Dose: Not Given Ondansetron HCl (Zofran Inj) 4 mg IVP Q6 PRN PRN Reason: Nausea/Vomiting Last Admin: 12/07/18 13:53 Dose: 4 mg Pantoprazole Sodium (Protonix Ec Tab) 40 mg PO DAILY [facility] Last Admin: 12/07/18 10:10 Dose: 40 mg Sitagliptin Phosphate (Januvia) 25 mg PO DAILY [facility] Last Admin: 12/07/18 10:08 Dose: 25 mg Tobramycin/Dexamethasone (Tobradex Opht Susp) 2 drop OU Q4 [facility] Last Admin: 12/07/18 12:55 Dose: 2 drop Tramadol HCl (Ultram) 50 mg PO Q6 PRN PRN Reason: Pain, moderate (4-7) Last Admin: 12/06/18 21:39 Dose: 50 mg Vitamin B Complex/Vit C/Folic Acid (Nephro-Elsa) 1 tab PO DAILY [facility] Last Admin: 12/07/18 10:10 Dose: 1 tab Results - Vital Signs Recent Vital Signs: Last Vital Signs Temp 97.7 F 12/07/18 17:02 Pulse 102 H 12/07/18 17:02 Resp 18 12/07/18 17:02 BP 198/109 H 12/07/18 17:02 Pulse Ox 98 12/07/18 17:02 - Labs Result Diagrams: 12/07/18 06:00 12/07/18 06:00 Labs: Laboratory Results - last 24 hr 12/06/18 12/07/18 12/07/18 21:59 05:04 06:00 WBC 12.3 H RBC 3.95 L Hgb 9.3 L Hct 30.2 L MCV 76.5 L MCH 23.6 L MCHC 30.8 L RDW 20.4 H Plt Count 303 Sodium Potassium Chloride Carbon Dioxide Anion Gap BUN Creatinine Est GFR ( Amer) Est GFR (Non-Af Amer) POC Glucose (mg/dL) 117 H 128 H Random Glucose Calcium Phosphorus Magnesium Total Bilirubin AST ALT Alkaline Phosphatase Total Protein Albumin Globulin Albumin/Globulin Ratio 12/07/18 12/07/18 12/07/18 06:00 11:22 15:26 WBC RBC Hgb Hct MCV MCH MCHC RDW Plt Count Sodium 128 L Potassium 3.6 Chloride 93 L Carbon Dioxide 24 Anion Gap 15 BUN 24 H Creatinine 6.2 H Est GFR ( Amer) 12 Est GFR (Non-Af Amer) 10 POC Glucose (mg/dL) 210 H 51 L Random Glucose 101 Calcium 7.7 L Phosphorus 3.6 Magnesium 1.2 L Total Bilirubin 0.4 AST 18 ALT 19 L Alkaline Phosphatase 95 Total Protein 6.7 Albumin 3.0 L D Globulin 3.7 Albumin/Globulin Ratio 0.8 L 12/07/18 12/07/18 15:27 16:03 WBC RBC Hgb Hct MCV MCH MCHC RDW Plt Count Sodium Potassium Chloride Carbon Dioxide Anion Gap BUN Creatinine Est GFR ( Amer) Est GFR (Non-Af Amer) POC Glucose (mg/dL) 52 L 66 Random Glucose Calcium Phosphorus Magnesium Total Bilirubin AST ALT Alkaline Phosphatase Total Protein Albumin Globulin Albumin/Globulin Ratio
[2018-12-07] MEDS ORDERED: Dextrose 5%/0.9% NS 1,000 ML IV SCH (18:00)
[2018-12-07] MEDS: NIFEdipine 60 mg ER Tab PO SCH (18:30)
[2018-12-08] MEDS: Dexamethasone/Tobramycin Ophth Susp OU SCH ×6 (01:46→20:32)
[2018-12-08 06:31] LABS: BASO % 0.3 % (0.0-2.0); EOS % 0.3 % (0.0-4.0); HEMOGLOBIN 9.4 g/dL (12.0-18.0); LYMPH # 1.4 K/uL (1.0-4.3); LYMPH % 10.7 % (20.0-40.0); MEAN CELL VOLUME 75.7 fl (80.0-94.0); MEAN CORPUSCULAR HEMOGLOBIN 23.9 pg (27.0-31.0); MEAN CORPUSCULAR HGB CONC 31.6 g/dL (33.0-37.0); MEAN PLATELET VOLUME 7.7 fl (7.2-11.7); MONO # 0.7 K/uL (0.0-0.8); MONO % 5.6 % (0.0-10.0); NEUT % 83.1 % (50.0-75.0); RBC 3.94 Mil/uL (4.40-5.90); RED CELL DISTRIBUTION WIDTH 19.9 % (11.5-14.5); WHITE BLOOD COUNT 13.2 K/uL (4.8-10.8)
[2018-12-08 06:51] LABS: ALB/GLOB RATIO 0.8 (1.0-2.1); ALBUMIN 2.8 g/dL (3.5-5.0); CALCIUM 7.8 mg/dL (8.4-10.2)
[2018-12-08] MEDS: Insulin Lispro (humaLOG) 100 Units/ml Inj SC SCH ×3 (07:30→16:30)
--- NOTE | 2018-12-08 07:44 | CP.PCM.PN ---
Subjective - Date & Time of Evaluation Date of Evaluation: 12/08/18 Time of Evaluation: 07:00 - Subjective Subjective: Patient seen and examined. No acute events over night. No complaints. Packing changed. Objective - Vital Signs/Intake and Output Vital Signs (last 24 hours): Temp Pulse Resp BP Pulse Ox 98.3 F 92 H 19 95/60 L 96 12/08/18 00:06 12/08/18 00:06 12/08/18 00:06 12/08/18 00:06 12/08/18 00:06 Intake and Output: 12/08/18 12/08/18 06:59 18:59 Intake Total 500 Balance 500 - Medications Medications: Current Medications Acetaminophen (Tylenol 325mg Tab) 650 mg PO Q6 PRN PRN Reason: Pain, Mild (1-3) Allopurinol (Zyloprim) 100 mg PO DAILY [facility] Last Admin: 12/07/18 10:11 Dose: 100 mg Calcitriol (Rocaltrol) 0.25 mcg PO TID [facility] Last Admin: 12/07/18 18:30 Dose: Not Given Epoetin Mitchell (Procrit) 10,000 unit IV [facility] Ferrous Sulfate (Feosol) 325 mg PO TID [facility] Last Admin: 12/07/18 18:28 Dose: Not Given Folic Acid (Folic Acid) 1 mg PO DAILY [facility] Last Admin: 12/07/18 10:07 Dose: 1 mg Gabapentin (Neurontin) 100 mg PO TID [facility] Last Admin: 12/07/18 18:30 Dose: Not Given Glipizide (Glucotrol) 10 mg PO BID [facility] Last Admin: 12/07/18 18:29 Dose: Not Given Heparin Sodium (Porcine) (Heparin) 5,000 units SC Q8 [facility]; Protocol Last Admin: 12/08/18 00:24 Dose: 5,000 units Amikacin Sulfate 500 mg/ (Sodium Chloride) 102 mls @ 101.185 mls/hr IVPB [facility]; Protocol Vancomycin HCl 1 gm/ Sodium (Chloride) 250 mls @ 166.667 mls/hr IVPB [facility]; Protocol Dextrose/Sodium Chloride (Dextrose 5%/0.9% Ns 1000 Ml) 1,000 mls @ 50 mls/hr IV .Q20H [facility] Stop: 12/08/18 13:59 Last Admin: 12/07/18 18:00 Dose: 50 mls/hr Insulin Human Lispro (Humalog) 7 units SC ACTID [facility] Last Admin: 12/07/18 16:51 Dose: Not Given Lactic Acid (Lac-Hydrin 12% Lotion (225 G)) 1 applic TOP DAILY [facility] Last Admin: 12/07/18 10:09 Dose: 1 u Losartan Potassium (Cozaar) 50 mg PO QPM [facility] Last Admin: 12/07/18 18:28 Dose: Not Given Metoclopramide HCl (Reglan) 10 mg IVP Q8 [facility] Last Admin: 12/08/18 00:24 Dose: 10 mg Metoprolol Tartrate (Lopressor) 12.5 mg PO BIDWM [facility] Last Admin: 12/07/18 18:29 Dose: Not Given Metronidazole (Flagyl) 125 mg PO TID [facility]; Protocol Last Admin: 12/07/18 18:29 Dose: 125 mg Nifedipine (Procardia Xl) 60 mg PO QPM [facility] Last Admin: 12/07/18 18:30 Dose: Not Given Ondansetron HCl (Zofran Inj) 4 mg IVP Q8H [facility] Last Admin: 12/08/18 04:05 Dose: 4 mg Pantoprazole Sodium (Protonix Inj) 40 mg IVP DAILY [facility] Last Admin: 12/07/18 18:48 Dose: 40 mg Sitagliptin Phosphate (Januvia) 25 mg PO DAILY [facility] Last Admin: 12/07/18 10:08 Dose: 25 mg Tobramycin/Dexamethasone (Tobradex Opht Susp) 2 drop OU Q4 [facility] Last Admin: 12/08/18 04:09 Dose: 2 drop Tramadol HCl (Ultram) 50 mg PO Q6 PRN PRN Reason: Pain, moderate (4-7) Last Admin: 12/08/18 04:05 Dose: 50 mg Vitamin B Complex/Vit C/Folic Acid (Nephro-Elsa) 1 tab PO DAILY [facility] Last Admin: 12/07/18 10:10 Dose: 1 tab - Labs Labs: 12/08/18 05:25 12/08/18 05:25 PT 16.8 Seconds (9.8-13.1) H 12/05/18 18:20 INR 1.5 12/05/18 18:20 APTT 38.1 Seconds (25.6-37.1) H 12/05/18 18:20 - Constitutional Appears: No Acute Distress - Head Exam Head Exam: NORMOCEPHALIC - Eye Exam Eye Exam: EOMI, Normal appearance - ENT Exam ENT Exam: Mucous Membranes Moist - Respiratory Exam Respiratory Exam: NORMAL BREATHING PATTERN - Cardiovascular Exam Cardiovascular Exam: +S1, +S2 - GI/Abdominal Exam GI & Abdominal Exam: Soft - Neurological Exam Neurological Exam: Alert, Awake, Oriented x3 - Psychiatric Exam Psychiatric exam: Normal Mood - Skin Skin Exam: Dry, Intact, Warm Assessment and Plan - Assessment and Plan (Free Text) Assessment: 47M with s/p small bowel resection POD#26 presents with gastroparesis & abdominal wounds Plan: C/w daily packing changes to midline wound C/w reglan PO Q6H no acute surgical intervention at this present time Further recs per Dr. Kiran Burgos PGY3
[2018-12-08 07:59] LABS: HEPATITIS B SURFACE AG Negative (NEGATIVE)
[2018-12-08 08:07] LABS: HEPATITIS B CORE AB NEGATIVE (NEGATIVE)
[2018-12-08 08:42] VITALS: RESP 20
[2018-12-08] MEDS: Multivitamin Vitamin B Complex (Nephro-Vite) Tab PO SCH (08:53)
[2018-12-08] MEDS ORDERED: EPOETIN ALFA 10,000 UNIT/ML ML IV SCH (09:00)
--- NOTE | 2018-12-08 09:14 | CP.PCM.PN ---
Subjective - Date & Time of Evaluation Date of Evaluation: 12/08/18 Time of Evaluation: 09:09 - Subjective Subjective: General Surgery Pt seen and examined this AM. He reports having less abdominal pain. (+) flatus, (+) water diarrhea ~4 episodes. (-) N/V. Tolerating diet. Afebrile. Labs and vitals noted PE Gen: Pt laying in bed in NAD. Obese Skin: warm and dry, Healing scabbed rash of varying circular sizes of bilateral LEs, see ABD Cardio: s1s2 RRR Lungs: CTA bilaterally Abd: Soft NTND. Midline incision healing well. (-) erythema, (-) induration. Two small openings with lightly packed packing, (-) drainage, (-) odor. Abdominal incision with significant improvement since prior admission. Extr: (+) right foot amputation, (-) calf tenderness bilaterally. A/P 47M with s/p small bowel resection POD#26 presents with gastroparesis & healing abdominal incision Daily dressing changes, place small amt of packing to just keep the opening open to promote drainage, and apply a dry 4x4 over. Advance diet per GI Continue abx as per ID after HD. No acute surgical intervention. Surgery signing off. Objective - Vital Signs/Intake and Output Vital Signs (last 24 hours): Temp Pulse Resp BP Pulse Ox 98.3 F 101 H 20 105/66 97 12/08/18 08:41 12/08/18 08:41 12/08/18 08:41 12/08/18 08:41 12/08/18 08:41 Intake and Output: 12/08/18 12/08/18 06:59 18:59 Intake Total 500 Balance 500 - Medications Medications: Current Medications Acetaminophen (Tylenol 325mg Tab) 650 mg PO Q6 PRN PRN Reason: Pain, Mild (1-3) Allopurinol (Zyloprim) 100 mg PO DAILY [facility] Last Admin: 12/08/18 08:53 Dose: 100 mg Calcitriol (Rocaltrol) 0.25 mcg PO TID [facility] Last Admin: 12/08/18 08:53 Dose: 0.25 mcg Epoetin Mitchell (Procrit) 10,000 unit IV [facility] Ferrous Sulfate (Feosol) 325 mg PO TID [facility] Last Admin: 12/08/18 08:53 Dose: 325 mg Folic Acid (Folic Acid) 1 mg PO DAILY [facility] Last Admin: 12/08/18 08:53 Dose: 1 mg Gabapentin (Neurontin) 100 mg PO TID [facility] Last Admin: 12/08/18 08:53 Dose: 100 mg Glipizide (Glucotrol) 10 mg PO BID [facility] Last Admin: 12/08/18 08:53 Dose: 10 mg Heparin Sodium (Porcine) (Heparin) 5,000 units SC Q8 [facility]; Protocol Last Admin: 12/08/18 08:53 Dose: 5,000 units Amikacin Sulfate 500 mg/ (Sodium Chloride) 102 mls @ 101.185 mls/hr IVPB [facility]; Protocol Last Admin: 12/08/18 08:54 Dose: 101.185 mls/hr Vancomycin HCl 1 gm/ Sodium (Chloride) 250 mls @ 166.667 mls/hr IVPB [facility]; Protocol Dextrose/Sodium Chloride (Dextrose 5%/0.9% Ns 1000 Ml) 1,000 mls @ 50 mls/hr IV .Q20H [facility] Stop: 12/08/18 13:59 Last Admin: 12/07/18 18:00 Dose: 50 mls/hr Insulin Human Lispro (Humalog) 7 units SC ACTID [facility] Last Admin: 12/08/18 07:30 Dose: Not Given Lactic Acid (Lac-Hydrin 12% Lotion (225 G)) 1 applic TOP DAILY [facility] Last Admin: 12/08/18 08:54 Dose: 1 applic Losartan Potassium (Cozaar) 50 mg PO QPM [facility] Last Admin: 12/07/18 18:28 Dose: Not Given Metoclopramide HCl (Reglan) 5 mg IVP Q8 [facility] Metoprolol Tartrate (Lopressor) 12.5 mg PO BIDWM [facility] Last Admin: 12/07/18 18:29 Dose: Not Given Metronidazole (Flagyl) 125 mg PO TID [facility]; Protocol Last Admin: 12/08/18 08:53 Dose: 125 mg Nifedipine (Procardia Xl) 60 mg PO QPM [facility] Last Admin: 12/07/18 18:30 Dose: Not Given Ondansetron HCl (Zofran Inj) 4 mg IVP Q8H [facility] Last Admin: 12/08/18 04:05 Dose: 4 mg Pantoprazole Sodium (Protonix Inj) 40 mg IVP DAILY [facility] Last Admin: 12/07/18 18:48 Dose: 40 mg Sitagliptin Phosphate (Januvia) 25 mg PO DAILY [facility] Last Admin: 12/08/18 08:53 Dose: 25 mg Tobramycin/Dexamethasone (Tobradex Opht Susp) 2 drop OU Q4 [facility] Last Admin: 12/08/18 04:09 Dose: 2 drop Tramadol HCl (Ultram) 50 mg PO Q6 PRN PRN Reason: Pain, moderate (4-7) Last Admin: 12/08/18 04:05 Dose: 50 mg Vitamin B Complex/Vit C/Folic Acid (Nephro-Elsa) 1 tab PO DAILY [facility] Last Admin: 12/08/18 08:53 Dose: 1 tab - Labs Labs: 12/08/18 05:25 12/08/18 05:25 PT 16.8 Seconds (9.8-13.1) H 12/05/18 18:20 INR 1.5 12/05/18 18:20 APTT 38.1 Seconds (25.6-37.1) H 12/05/18 18:20
--- NOTE | 2018-12-08 12:08 | CP.PCM.PN ---
Subjective - Date & Time of Evaluation Date of Evaluation: 12/08/18 Time of Evaluation: 08:40 - Subjective Subjective: nausea improving Objective - Vital Signs/Intake and Output Vital Signs (last 24 hours): Temp Pulse Resp BP Pulse Ox 98.3 F 101 H 20 105/66 97 12/08/18 08:41 12/08/18 08:41 12/08/18 08:41 12/08/18 08:41 12/08/18 08:41 Intake and Output: 12/08/18 12/08/18 06:59 18:59 Intake Total 500 Balance 500 - Medications Medications: Current Medications Acetaminophen (Tylenol 325mg Tab) 650 mg PO Q6 PRN PRN Reason: Pain, Mild (1-3) Allopurinol (Zyloprim) 100 mg PO DAILY [facility] Last Admin: 12/08/18 08:53 Dose: 100 mg Calcitriol (Rocaltrol) 0.25 mcg PO TID [facility] Last Admin: 12/08/18 08:53 Dose: 0.25 mcg Epoetin Mitchell (Procrit) 10,000 unit IV [facility] Ferrous Sulfate (Feosol) 325 mg PO TID [facility] Last Admin: 12/08/18 08:53 Dose: 325 mg Folic Acid (Folic Acid) 1 mg PO DAILY [facility] Last Admin: 12/08/18 08:53 Dose: 1 mg Gabapentin (Neurontin) 100 mg PO TID [facility] Last Admin: 12/08/18 08:53 Dose: 100 mg Glipizide (Glucotrol) 10 mg PO BID [facility] Last Admin: 12/08/18 08:53 Dose: 10 mg Heparin Sodium (Porcine) (Heparin) 5,000 units SC Q8 [facility]; Protocol Last Admin: 12/08/18 08:53 Dose: 5,000 units Amikacin Sulfate 500 mg/ (Sodium Chloride) 102 mls @ 101.185 mls/hr IVPB [facility]; Protocol Last Admin: 12/08/18 08:54 Dose: 101.185 mls/hr Vancomycin HCl 1 gm/ Sodium (Chloride) 250 mls @ 166.667 mls/hr IVPB [facility]; Protocol Dextrose/Sodium Chloride (Dextrose 5%/0.9% Ns 1000 Ml) 1,000 mls @ 50 mls/hr IV .Q20H [facility] Stop: 12/08/18 13:59 Last Admin: 12/07/18 18:00 Dose: 50 mls/hr Insulin Human Lispro (Humalog) 7 units SC ACTID [facility] Last Admin: 12/08/18 07:30 Dose: Not Given Lactic Acid (Lac-Hydrin 12% Lotion (225 G)) 1 applic TOP DAILY [facility] Last Admin: 12/08/18 08:54 Dose: 1 applic Losartan Potassium (Cozaar) 50 mg PO QPM [facility] Last Admin: 12/07/18 18:28 Dose: Not Given Metoclopramide HCl (Reglan) 5 mg IVP Q8 [facility] Metoprolol Tartrate (Lopressor) 12.5 mg PO BIDWM [facility] Last Admin: 12/07/18 18:29 Dose: Not Given Metronidazole (Flagyl) 125 mg PO TID [facility]; Protocol Last Admin: 12/08/18 08:53 Dose: 125 mg Nifedipine (Procardia Xl) 60 mg PO QPM [facility] Last Admin: 12/07/18 18:30 Dose: Not Given Ondansetron HCl (Zofran Inj) 4 mg IVP Q8H [facility] Last Admin: 12/08/18 04:05 Dose: 4 mg Pantoprazole Sodium (Protonix Inj) 40 mg IVP DAILY [facility] Last Admin: 12/07/18 18:48 Dose: 40 mg Sitagliptin Phosphate (Januvia) 25 mg PO DAILY [facility] Last Admin: 12/08/18 08:53 Dose: 25 mg Tobramycin/Dexamethasone (Tobradex Opht Susp) 2 drop OU Q4 [facility] Last Admin: 12/08/18 04:09 Dose: 2 drop Tramadol HCl (Ultram) 50 mg PO Q6 PRN PRN Reason: Pain, moderate (4-7) Last Admin: 12/08/18 04:05 Dose: 50 mg Vitamin B Complex/Vit C/Folic Acid (Nephro-Elsa) 1 tab PO DAILY [facility] Last Admin: 12/08/18 08:53 Dose: 1 tab - Labs Labs: 12/08/18 05:25 12/08/18 05:25 PT 16.8 Seconds (9.8-13.1) H 12/05/18 18:20 INR 1.5 12/05/18 18:20 APTT 38.1 Seconds (25.6-37.1) H 12/05/18 18:20 - Neck Exam Neck Exam: Normal Inspection - Respiratory Exam Respiratory Exam: Clear to Ausculation Bilateral, NORMAL BREATHING PATTERN - Cardiovascular Exam Cardiovascular Exam: REGULAR RHYTHM - GI/Abdominal Exam GI & Abdominal Exam: Soft, Normal Bowel Sounds Assessment and Plan - Assessment and Plan (Free Text) Assessment: 47 yo male with gastroparesis decrease reglan to 5 tid prn cont zofran prn
--- NOTE | 2018-12-08 15:09 | CP.PCM.PN ---
Subjective - Date & Time of Evaluation Date of Evaluation: 12/08/18 Time of Evaluation: 15:06 - Subjective Subjective: RENAL s: seen on HD tolerating tx o: vs as below gen: nad +s1+s2 no rub lungsw/ reduced bs imp: esrd/htn/dm/anemia/diarrhea/abdominal abscess/secondary hyperparathyroidism seen on HD tolerating tx lytes ok on 4 k bath on epo f/u gi/surg work up continue calcitriol abx per primary team dose for esrd Objective - Vital Signs/Intake and Output Vital Signs (last 24 hours): Temp Pulse Resp BP Pulse Ox 98.3 F 101 H 20 105/66 97 12/08/18 08:41 12/08/18 08:41 12/08/18 08:41 12/08/18 08:41 12/08/18 08:41 Intake and Output: 12/08/18 12/08/18 06:59 18:59 Intake Total 500 Balance 500 - Medications Medications: Current Medications Acetaminophen (Tylenol 325mg Tab) 650 mg PO Q6 PRN PRN Reason: Pain, Mild (1-3) Allopurinol (Zyloprim) 100 mg PO DAILY [facility] Last Admin: 12/08/18 08:53 Dose: 100 mg Calcitriol (Rocaltrol) 0.25 mcg PO TID [facility] Last Admin: 12/08/18 13:31 Dose: 0.25 mcg Epoetin Mitchell (Procrit) 10,[address] [facility] Last Admin: 12/08/18 13:44 Dose: 10,000 unit Ferrous Sulfate (Feosol) 325 mg PO TID [facility] Last Admin: 12/08/18 13:28 Dose: 325 mg Folic Acid (Folic Acid) 1 mg PO DAILY [facility] Last Admin: 12/08/18 08:53 Dose: 1 mg Gabapentin (Neurontin) 100 mg PO TID [facility] Last Admin: 12/08/18 13:31 Dose: 100 mg Glipizide (Glucotrol) 10 mg PO BID [facility] Last Admin: 12/08/18 08:53 Dose: 10 mg Heparin Sodium (Porcine) (Heparin) 5,000 units SC Q8 [facility]; Protocol Last Admin: 12/08/18 08:53 Dose: 5,000 units Amikacin Sulfate 500 mg/ (Sodium Chloride) 102 mls @ 101.185 mls/hr IVPB [facility]; Protocol Last Admin: 12/08/18 08:54 Dose: 101.185 mls/hr Vancomycin HCl 1 gm/ Sodium (Chloride) 250 mls @ 166.667 mls/hr IVPB [facility]; Protocol Last Admin: 12/08/18 13:38 Dose: 166.667 mls/hr Insulin Human Lispro (Humalog) 7 units SC ACTID [facility] Last Admin: 12/08/18 11:30 Dose: 7 u Lactic Acid (Lac-Hydrin 12% Lotion (225 G)) 1 applic TOP DAILY [facility] Last Admin: 12/08/18 08:54 Dose: 1 applic Losartan Potassium (Cozaar) 50 mg PO QPM [facility] Last Admin: 12/07/18 18:28 Dose: Not Given Metoclopramide HCl (Reglan) 5 mg IVP Q8 [facility] Last Admin: 12/08/18 09:00 Dose: 5 mg Metoprolol Tartrate (Lopressor) 12.5 mg PO BIDWM [facility] Last Admin: 12/08/18 13:31 Dose: Not Given Metronidazole (Flagyl) 125 mg PO TID [facility]; Protocol Last Admin: 12/08/18 13:28 Dose: 125 mg Nifedipine (Procardia Xl) 60 mg PO QPM [facility] Last Admin: 12/07/18 18:30 Dose: Not Given Ondansetron HCl (Zofran Inj) 4 mg IVP Q8H [facility] Last Admin: 12/08/18 13:43 Dose: 4 mg Pantoprazole Sodium (Protonix Inj) 40 mg IVP DAILY [facility] Last Admin: 12/08/18 13:31 Dose: 40 mg Sitagliptin Phosphate (Januvia) 25 mg PO DAILY [facility] Last Admin: 12/08/18 08:53 Dose: 25 mg Tobramycin/Dexamethasone (Tobradex Opht Susp) 2 drop OU Q4 [facility] Last Admin: 12/08/18 13:33 Dose: 2 drop Tramadol HCl (Ultram) 50 mg PO Q6 PRN PRN Reason: Pain, moderate (4-7) Last Admin: 12/08/18 04:05 Dose: 50 mg Vitamin B Complex/Vit C/Folic Acid (Nephro-Elsa) 1 tab PO DAILY [facility] Last Admin: 12/08/18 08:53 Dose: 1 tab - Labs Labs: 12/08/18 05:25 12/08/18 05:25 PT 16.8 Seconds (9.8-13.1) H 12/05/18 18:20 INR 1.5 12/05/18 18:20 APTT 38.1 Seconds (25.6-37.1) H 12/05/18 18:20
--- NOTE | 2018-12-08 17:03 | CP.PCM.PN ---
Subjective - Date & Time of Evaluation Date of Evaluation: 12/08/18 Time of Evaluation: 17:05 - Subjective Subjective: I D NOTE PATIENT READMITTED c NAUSEA,VOMITING AND ABDOMINAL PAIN.HISTORY OF BOWEL SURGERY c ABDOMINAL ABSCESS AND HAS BEEN TREATED EXTENSIVELY c iv antibiotics(post HD AMIKACIN/VANCOMYCIN) CT SCAN SHOWS STABLE UMBILICAL ABSCESS. WOULD CONTINUE SAME ANTIBIOTIC RX. Objective - Vital Signs/Intake and Output Vital Signs (last 24 hours): Temp Pulse Resp BP Pulse Ox 98.6 F 111 H 20 105/77 99 12/08/18 15:59 12/08/18 16:27 12/08/18 15:59 12/08/18 16:27 12/08/18 15:59 Intake and Output: 12/08/18 12/08/18 06:59 18:59 Intake Total 500 Balance 500 - Medications Medications: Current Medications Acetaminophen (Tylenol 325mg Tab) 650 mg PO Q6 PRN PRN Reason: Pain, Mild (1-3) Allopurinol (Zyloprim) 100 mg PO DAILY [facility] Last Admin: 12/08/18 08:53 Dose: 100 mg Calcitriol (Rocaltrol) 0.25 mcg PO TID [facility] Last Admin: 12/08/18 16:28 Dose: 0.25 mcg Epoetin Mitchell (Procrit) 10,000 unit IV [facility] Last Admin: 12/08/18 13:44 Dose: 10,000 unit Ferrous Sulfate (Feosol) 325 mg PO TID [facility] Last Admin: 12/08/18 16:28 Dose: 325 mg Folic Acid (Folic Acid) 1 mg PO DAILY [facility] Last Admin: 12/08/18 08:53 Dose: 1 mg Gabapentin (Neurontin) 100 mg PO TID [facility] Last Admin: 12/08/18 16:29 Dose: 100 mg Glipizide (Glucotrol) 10 mg PO BID [facility] Last Admin: 12/08/18 16:28 Dose: 10 mg Heparin Sodium (Porcine) (Heparin) 5,000 units SC Q8 [facility]; Protocol Last Admin: 12/08/18 16:29 Dose: 5,000 units Amikacin Sulfate 500 mg/ (Sodium Chloride) 102 mls @ 101.185 mls/hr IVPB [facility]; Protocol Last Admin: 12/08/18 08:54 Dose: 101.185 mls/hr Vancomycin HCl 1 gm/ Sodium (Chloride) 250 mls @ 166.667 mls/hr IVPB MWF [facility]; Protocol Last Admin: 12/08/18 13:38 Dose: 166.667 mls/hr Insulin Human Lispro (Humalog) 7 units SC ACTID [facility] Last Admin: 12/08/18 16:30 Dose: 7 u Lactic Acid (Lac-Hydrin 12% Lotion (225 G)) 1 applic TOP DAILY [facility] Last Admin: 12/08/18 08:54 Dose: 1 applic Losartan Potassium (Cozaar) 50 mg PO QPM [facility] Last Admin: 12/07/18 18:28 Dose: Not Given Metoclopramide HCl (Reglan) 5 mg IVP Q8 [facility] Last Admin: 12/08/18 16:31 Dose: 5 mg Metoprolol Tartrate (Lopressor) 12.5 mg PO BIDWM [facility] Last Admin: 12/08/18 16:27 Dose: 12.5 mg Metronidazole (Flagyl) 125 mg PO TID [facility]; Protocol Last Admin: 12/08/18 16:28 Dose: 125 mg Nifedipine (Procardia Xl) 60 mg PO QPM [facility] Last Admin: 12/07/18 18:30 Dose: Not Given Ondansetron HCl (Zofran Inj) 4 mg IVP Q8H [facility] Last Admin: 12/08/18 13:43 Dose: 4 mg Pantoprazole Sodium (Protonix Inj) 40 mg IVP DAILY [facility] Last Admin: 12/08/18 13:31 Dose: 40 mg Sitagliptin Phosphate (Januvia) 25 mg PO DAILY [facility] Last Admin: 12/08/18 08:53 Dose: 25 mg Tobramycin/Dexamethasone (Tobradex Opht Susp) 2 drop OU Q4 [facility] Last Admin: 12/08/18 16:32 Dose: 2 drop Tramadol HCl (Ultram) 50 mg PO Q6 PRN PRN Reason: Pain, moderate (4-7) Last Admin: 12/08/18 04:05 Dose: 50 mg Vitamin B Complex/Vit C/Folic Acid (Nephro-Elsa) 1 tab PO DAILY [facility] Last Admin: 12/08/18 08:53 Dose: 1 tab - Labs Labs: 12/08/18 05:25 12/08/18 05:25 PT 16.8 Seconds (9.8-13.1) H 12/05/18 18:20 INR 1.5 12/05/18 18:20 APTT 38.1 Seconds (25.6-37.1) H 12/05/18 18:20
[2018-12-08] MEDS: NIFEdipine 60 mg ER Tab PO SCH (19:06)
[2018-12-09] MEDS: Dexamethasone/Tobramycin Ophth Susp OU SCH ×4 (00:15→13:39)
[2018-12-09 06:42] LABS: HEMOGLOBIN 8.4 g/dL (12.0-18.0); MEAN CELL VOLUME 76.2 fl (80.0-94.0); MEAN CORPUSCULAR HEMOGLOBIN 23.7 pg (27.0-31.0); MEAN CORPUSCULAR HGB CONC 31.1 g/dL (33.0-37.0); RBC 3.53 Mil/uL (4.40-5.90); RED CELL DISTRIBUTION WIDTH 19.7 % (11.5-14.5); WHITE BLOOD COUNT 12.8 K/uL (4.8-10.8)
[2018-12-09 06:51] LABS: ALB/GLOB RATIO 0.7 (1.0-2.1); ALBUMIN 2.6 g/dL (3.5-5.0)
--- NOTE | 2018-12-09 08:12 | CP.PCM.PN ---
<Sultan Seferino - Last Filed: 12/09/18 09:41> Subjective - Date & Time of Evaluation Date of Evaluation: 12/09/18 Time of Evaluation: 07:50 - Subjective Subjective: Patient seen and examined this morning. Patient reports on/off nausea and one episode of vomiting last night. Denies fever, chills,chest pain or dizziness. Objective - Vital Signs/Intake and Output Vital Signs (last 24 hours): Temp Pulse Resp BP Pulse Ox 99.8 F H 97 H 20 103/67 95 12/08/18 23:37 12/08/18 23:37 12/08/18 23:37 12/08/18 23:37 12/08/18 23:37 - Medications Medications: Current Medications Acetaminophen (Tylenol 325mg Tab) 650 mg PO Q6 PRN PRN Reason: Pain, Mild (1-3) Allopurinol (Zyloprim) 100 mg PO DAILY [facility] Last Admin: 12/08/18 08:53 Dose: 100 mg Calcitriol (Rocaltrol) 0.25 mcg PO TID [facility] Last Admin: 12/08/18 16:28 Dose: 0.25 mcg Epoetin Mitchell (Procrit) 10,000 unit IV [facility] [place] Last Admin: 12/08/18 13:44 Dose: 10,000 unit Ferrous Sulfate (Feosol) 325 mg PO TID [facility] Last Admin: 12/08/18 16:28 Dose: 325 mg Folic Acid (Folic Acid) 1 mg PO DAILY [facility] Last Admin: 12/08/18 08:53 Dose: 1 mg Gabapentin (Neurontin) 100 mg PO TID [facility] Last Admin: 12/08/18 16:29 Dose: 100 mg Glipizide (Glucotrol) 10 mg PO BID [facility] Last Admin: 12/08/18 16:28 Dose: 10 mg Heparin Sodium (Porcine) (Heparin) 5,000 units SC Q8 [facility]; Protocol Last Admin: 12/09/18 00:09 Dose: 5,000 units Amikacin Sulfate 500 mg/ (Sodium Chloride) 102 mls @ 101.185 mls/hr IVPB [facility] [place]; Protocol Last Admin: 12/08/18 08:54 Dose: 101.185 mls/hr Vancomycin HCl 1 gm/ Sodium (Chloride) 250 mls @ 166.667 mls/hr IVPB [facility] [place]; Protocol Last Admin: 12/08/18 13:38 Dose: 166.667 mls/hr Insulin Human Lispro (Humalog) 7 units SC ACTID [facility] Last Admin: 12/08/18 16:30 Dose: 7 u Lactic Acid (Lac-Hydrin 12% Lotion (225 G)) 1 applic TOP DAILY [facility] Last Admin: 12/08/18 08:54 Dose: 1 applic Losartan Potassium (Cozaar) 50 mg PO QPM [facility] Last Admin: 12/08/18 19:06 Dose: 50 mg Metoclopramide HCl (Reglan) 5 mg IVP Q8 [facility] Last Admin: 12/09/18 00:11 Dose: 5 mg Metoprolol Tartrate (Lopressor) 12.5 mg PO BIDWM [facility] Last Admin: 12/08/18 16:27 Dose: 12.5 mg Metronidazole (Flagyl) 125 mg PO TID [facility]; Protocol Last Admin: 12/08/18 16:28 Dose: 125 mg Nifedipine (Procardia Xl) 60 mg PO QPM [facility] Last Admin: 12/08/18 19:06 Dose: 60 mg Ondansetron HCl (Zofran Inj) 4 mg IVP Q8H [facility] Last Admin: 12/09/18 05:22 Dose: 4 mg Pantoprazole Sodium (Protonix Inj) 40 mg IVP DAILY [facility] Last Admin: 12/08/18 13:31 Dose: 40 mg Sitagliptin Phosphate (Januvia) 25 mg PO DAILY [facility] Last Admin: 12/08/18 08:53 Dose: 25 mg Tobramycin/Dexamethasone (Tobradex Opht Susp) 2 drop OU Q4 [facility] Last Admin: 12/09/18 05:19 Dose: Not Given Tramadol HCl (Ultram) 50 mg PO Q6 PRN PRN Reason: Pain, moderate (4-7) Last Admin: 12/08/18 04:05 Dose: 50 mg Vitamin B Complex/Vit C/Folic Acid (Nephro-Elsa) 1 tab PO DAILY [facility] Last Admin: 12/08/18 08:53 Dose: 1 tab - Labs Labs: 12/09/18 05:40 12/09/18 05:40 PT 16.8 Seconds (9.8-13.1) H 12/05/18 18:20 INR 1.5 12/05/18 18:20 APTT 38.1 Seconds (25.6-37.1) H 12/05/18 18:20 - Constitutional Appears: No Acute Distress - Head Exam Head Exam: NORMAL INSPECTION - ENT Exam ENT Exam: Mucous Membranes Moist - Respiratory Exam Respiratory Exam: Clear to Ausculation Bilateral, NORMAL BREATHING PATTERN. absent: Rhonchi, Wheezes - Cardiovascular Exam Cardiovascular Exam: REGULAR RHYTHM, +S1, +S2 - GI/Abdominal Exam GI & Abdominal Exam: Soft, Normal Bowel Sounds. absent: Tenderness Additional comments: midline scar-packing was changed by surgery team this morning. Slight oozing from superior wound. . No surrounding erythema or swelling. - Extremities Exam Extremities Exam: Normal Inspection. 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 Patient was discharged on 12/04/18 and readmitted on 12/05/18 due to gastroparesis and abdominal wound. Plan: - s/p small bowel resection POD 26, - Abx - ID consult Dr. Elam; wound culture grew proteus mirabilis, started on amikacin post dialysis, recs appreciated. - General surgery on board, recs appreciated. - GI consult, Dr. Jc, recs appreciated. - Nephrology Dr. Rodríguez on board - ESRD - HD MWF - BP control w/ losartan, nifedipine and metoprolol - Insulin coverage scale and hypoglycemia protocol - Protonix - Heparin -Rest of the plan as ordered. Patient seen, examined and plan d/w Dr. Aleksandra Gentile, [id number] <Joel Lake - Last Filed: 12/10/18 10:38> Objective - Vital Signs/Intake and Output Vital Signs (last 24 hours): Temp Pulse Resp BP Pulse Ox 98.1 F 92 H 20 101/64 96 12/09/18 16:20 12/09/18 16:20 12/09/18 16:20 12/09/18 16:20 12/09/18 16:20 - Labs Labs: 12/09/18 05:40 12/09/18 05:40 PT 16.8 Seconds (9.8-13.1) H 12/05/18 18:20 INR 1.5 12/05/18 18:20 APTT 38.1 Seconds (25.6-37.1) H 12/05/18 18:20 Assessment and Plan - Assessment and Plan (Free Text) Assessment: Patient was personally seen and examined by me in rounds with residents. Available labs and diagnostic data reviewed. Case, Patient's condition and management plan discussed with residents in rounds. Agree with resident's progress note. Plan: As ordered.
[2018-12-09 08:45] VITALS: PULSE 92
--- NOTE | 2018-12-09 09:03 | CP.PCM.PN ---
Subjective - Date & Time of Evaluation Date of Evaluation: 12/09/18 Time of Evaluation: 09:02 - Subjective Subjective: no overnight events Objective - Vital Signs/Intake and Output Vital Signs (last 24 hours): Temp Pulse Resp BP Pulse Ox 99.1 F 92 H 20 98/60 L 95 12/09/18 08:43 12/09/18 08:43 12/09/18 08:43 12/09/18 08:43 12/09/18 08:43 - Medications Medications: Current Medications Acetaminophen (Tylenol 325mg Tab) 650 mg PO Q6 PRN PRN Reason: Pain, Mild (1-3) Allopurinol (Zyloprim) 100 mg PO DAILY [facility] Last Admin: 12/08/18 08:53 Dose: 100 mg Calcitriol (Rocaltrol) 0.25 mcg PO TID [facility] Last Admin: 12/08/18 16:28 Dose: 0.25 mcg Epoetin Mitchell (Procrit) 10,000 unit IV [facility] [place] Last Admin: 12/08/18 13:44 Dose: 10,000 unit Ferrous Sulfate (Feosol) 325 mg PO TID [facility] Last Admin: 12/08/18 16:28 Dose: 325 mg Folic Acid (Folic Acid) 1 mg PO DAILY [facility] Last Admin: 12/08/18 08:53 Dose: 1 mg Gabapentin (Neurontin) 100 mg PO TID [facility] Last Admin: 12/08/18 16:29 Dose: 100 mg Glipizide (Glucotrol) 10 mg PO BID [facility] Last Admin: 12/08/18 16:28 Dose: 10 mg Heparin Sodium (Porcine) (Heparin) 5,000 units SC Q8 [facility]; Protocol Last Admin: 12/09/18 00:09 Dose: 5,000 units Amikacin Sulfate 500 mg/ (Sodium Chloride) 102 mls @ 101.185 mls/hr IVPB [facility]; Protocol Last Admin: 12/08/18 08:54 Dose: 101.185 mls/hr Vancomycin HCl 1 gm/ Sodium (Chloride) 250 mls @ 166.667 mls/hr IVPB [facility] [place] [place]; Protocol Last Admin: 12/08/18 13:38 Dose: 166.667 mls/hr Insulin Human Lispro (Humalog) 7 units SC ACTID [facility] Last Admin: 12/08/18 16:30 Dose: 7 u Lactic Acid (Lac-Hydrin 12% Lotion (225 G)) 1 applic TOP DAILY [facility] Last Admin: 12/08/18 08:54 Dose: 1 applic Losartan Potassium (Cozaar) 50 mg PO QPM [facility] Last Admin: 12/08/18 19:06 Dose: 50 mg Metoclopramide HCl (Reglan) 5 mg IVP Q8 [facility] Last Admin: 12/09/18 00:11 Dose: 5 mg Metoprolol Tartrate (Lopressor) 12.5 mg PO BIDWM [facility] Last Admin: 12/08/18 16:27 Dose: 12.5 mg Metronidazole (Flagyl) 125 mg PO TID [facility]; Protocol Last Admin: 12/08/18 16:28 Dose: 125 mg Nifedipine (Procardia Xl) 60 mg PO QPM [facility] Last Admin: 12/08/18 19:06 Dose: 60 mg Ondansetron HCl (Zofran Inj) 4 mg IVP Q8H [facility] Last Admin: 12/09/18 05:22 Dose: 4 mg Pantoprazole Sodium (Protonix Inj) 40 mg IVP DAILY [facility] Last Admin: 12/08/18 13:31 Dose: 40 mg Sitagliptin Phosphate (Januvia) 25 mg PO DAILY [facility] Last Admin: 12/08/18 08:53 Dose: 25 mg Tobramycin/Dexamethasone (Tobradex Opht Susp) 2 drop OU Q4 [facility] Last Admin: 12/09/18 05:19 Dose: Not Given Tramadol HCl (Ultram) 50 mg PO Q6 PRN PRN Reason: Pain, moderate (4-7) Last Admin: 12/08/18 04:05 Dose: 50 mg Vitamin B Complex/Vit C/Folic Acid (Nephro-Elsa) 1 tab PO DAILY [facility] Last Admin: 12/08/18 08:53 Dose: 1 tab - Labs Labs: 12/09/18 05:40 12/09/18 05:40 PT 16.8 Seconds (9.8-13.1) H 12/05/18 18:20 INR 1.5 12/05/18 18:20 APTT 38.1 Seconds (25.6-37.1) H 12/05/18 18:20 - Neck Exam Neck Exam: Normal Inspection - Respiratory Exam Respiratory Exam: Clear to Ausculation Bilateral, NORMAL BREATHING PATTERN - Cardiovascular Exam Cardiovascular Exam: REGULAR RHYTHM - GI/Abdominal Exam GI & Abdominal Exam: Soft, Normal Bowel Sounds Assessment and Plan - Assessment and Plan (Free Text) Assessment: 47 yo male with gastroparesis increase reglan dose if needed doing well
[2018-12-09] MEDS: Multivitamin Vitamin B Complex (Nephro-Vite) Tab PO SCH (09:17)
[2018-12-09] MEDS: Insulin Lispro (humaLOG) 100 Units/ml Inj SC SCH ×2 (09:19→11:30)
--- NOTE | 2018-12-09 10:26 | PN ---
DATE: 12/08/2018 SUBJECTIVE: The patient seen and examined. Interim events noted. Consults noted and appreciated. The patient remains in regular medical floor. . Complains of nausea, but no vomiting. Still has persistent diarrhea. No chest pain, shortness of breath or abdominal pain. PHYSICAL EXAMINATION: GENERAL: The patient is in no acute distress. VITAL SIGNS: Stable. HEART: S1 and S2, normal and regular. LUNGS: Good bilateral air exchange. ABDOMEN: Soft, nontender. The patient has midline scar with packing with minimal discharge. No sign of surrounding cellulitis. No sign of rigid abdomen. No guarding. No rigidity. No rebound. Bowel sounds present and normal. EXTREMITIES: No edema. No calf swelling. No tenderness. No acute ischemia. CENTRAL NERVOUS SYSTEM: Exam is essentially unchanged. DIAGNOSTIC DATA: Available diagnostic data reviewed. ASSESSMENT: Overall, the patient's general medical condition is stable and improving. 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 Does not look like . PLAN: As ordered. Joel Lake MD
[2018-12-09 16:21] VITALS: BP 101/64; TEMP 98.1; O2SAT 96
--- NOTE | 2018-12-09 16:49 | CP.PCM.DIS ---
Provider - Provider Date of Admission: 12/05/18 23:47 Attending physician: Joel Lake MD Consults: 12/05/18 19:07 Nephrology Consult Stat Comment: Consulting Provider: Kobe Rodríguez Consulting Physician: Kobe Rodríguez Reason for Consult: CRF 12/06/18 00:15 Surgical [General Surgery Consult] Stat Comment: Consulting Provider: Coy Kyle Consulting Physician: Coy Kyle Reason for Consult: Abdominal wall abscess 12/06/18 06:52 Gastroenterology Consult Routine Comment: Consulting Provider: Jung Jc Consulting Physician: Jung Jc Reason for Consult: Gastroparesis 12/06/18 08:04 Surgery [General Surgery Consult] Routine Comment: Consulting Provider: Coy Kyle Consulting Physician: Coy Kyle Reason for Consult: Umbilical abscess, s/p intestinal resection 12/07/18 14:51 Infectious Disease Consult Routine Comment: Diarhea, r/o Cdif, Continue Antibiotics from Prior Consulting Provider: Nate Elam Consulting Physician: Nate Elam Reason for Consult: Diarrhea, Monitor IV antibiotics from prior admit Time Spent in preparation of Discharge (in minutes): 30 Diagnosis - Discharge Diagnosis (1) History of bowel resection Status: Acute (2) Abdominal wall abscess Status: Acute (3) Gastroparesis Status: Chronic (4) Abdominal pain Status: Resolved (5) ESRD (end stage renal disease) on dialysis Status: Chronic Hospital Course - Lab Results Lab Results: Most Recent Lab Values WBC 12.8 K/uL (4.8-10.8) H 12/09/18 05:40 RBC 3.53 Mil/uL (4.40-5.90) L 12/09/18 05:40 Hgb 8.4 g/dL (12.0-18.0) L 12/09/18 05:40 Hct 26.8 % (35.0-51.0) L 12/09/18 05:40 MCV 76.2 fl (80.0-94.0) L 12/09/18 05:40 MCH 23.7 pg (27.0-31.0) L 12/09/18 05:40 MCHC 31.1 g/dL (33.0-37.0) L 12/09/18 05:40 RDW 19.7 % (11.5-14.5) H 12/09/18 05:40 Plt Count 245 K/uL (130-400) 12/09/18 05:40 MPV 7.7 fl (7.2-11.7) 12/08/18 05:25 Neut % (Auto) 83.1 % (50.0-75.0) H 12/08/18 05:25 Lymph % (Auto) 10.7 % (20.0-40.0) L 12/08/18 05:25 Sac % (Auto) 5.6 % (0.0-10.0) 12/08/18 05:25 Eos % (Auto) 0.3 % (0.0-4.0) 12/08/18 05:25 Baso % (Auto) 0.3 % (0.0-2.0) 12/08/18 05:25 Neut # (Auto) 11.0 K/uL (1.8-7.0) H 12/08/18 05:25 Lymph # (Auto) 1.4 K/uL (1.0-4.3) 12/08/18 05:25 Sac # (Auto) 0.7 K/uL (0.0-0.8) 12/08/18 05:25 Eos # (Auto) 0.0 K/uL (0.0-0.7) 12/08/18 05:25 Baso # (Auto) 0.0 K/uL (0.0-0.2) 12/08/18 05:25 Neutrophils % (Manual) 84 % (42-75) H 12/05/18 18:28 Band Neutrophils % 1 % (0-2) 12/05/18 18:28 Lymphocytes % (Manual) 9 % (20-50) L 12/05/18 18:28 Monocytes % (Manual) 5 % (0-10) 12/05/18 18:28 Basophils % (Manual) 1 % (0-2) 12/05/18 18:28 Platelet Estimate Normal (NORMAL) 12/05/18 18:28 Hypochromasia (manual) Moderate 12/05/18 18:28 Anisocytosis (manual) Moderate 12/05/18 18:28 Tear Drop Cells Slight 12/05/18 18:28 PT 16.8 Seconds (9.8-13.1) H 12/05/18 18:20 INR 1.5 12/05/18 18:20 APTT 38.1 Seconds (25.6-37.1) H 12/05/18 18:20 Sodium 131 mmol/l (132-148) L 12/09/18 05:40 Potassium 3.9 MMOL/L (3.6-5.0) 12/09/18 05:40 Chloride 95 mmol/L (98-107) L 12/09/18 05:40 Carbon Dioxide 24 mmol/L (22-30) 12/09/18 05:40 Anion Gap 16 (10-20) 12/09/18 05:40 BUN 24 mg/dl (9-20) H 12/09/18 05:40 Creatinine 5.7 mg/dl (0.8-1.5) H 12/09/18 05:40 Est GFR ( Amer) 13 12/09/18 05:40 Est GFR (Non-Af Amer) 11 12/09/18 05:40 POC Glucose (mg/dL) 119 mg/dL (65-110) H 12/09/18 15:51 Random Glucose 91 mg/dL (75-110) 12/09/18 05:40 Calcium 8.0 mg/dL (8.4-10.2) L 12/09/18 05:40 Phosphorus 3.6 mg/dl (2.5-4.5) 12/07/18 06:00 Magnesium 1.2 MG/DL (1.6-2.3) L 12/07/18 06:00 Total Bilirubin 0.4 mg/dl (0.2-1.3) 12/09/18 05:40 AST 13 U/L (17-59) L 12/09/18 05:40 ALT 19 U/L (21-72) L D 12/09/18 05:40 Alkaline Phosphatase 82 U/L (38-126) 12/09/18 05:40 Total Protein 6.0 G/DL (6.3-8.2) L 12/09/18 05:40 Albumin 2.6 g/dL (3.5-5.0) L 12/09/18 05:40 Globulin 3.5 gm/dL (2.2-3.9) 12/09/18 05:40 Albumin/Globulin Ratio 0.7 (1.0-2.1) L 12/09/18 05:40 Lipase 140 U/L (23-300) 12/05/18 18:28 C. difficile Ag & Toxin Negative (NEGATIVE) 12/07/18 20:50 Hep Bs Antigen Negative (NEGATIVE) 12/06/18 18:45 Hep Bs Antibody Positive (NEGATIVE) 12/06/18 18:45 Hep B Core IgM Ab Negative (NEGATIVE) 12/06/18 18:45 Blood Type O NEGATIVE 12/05/18 18:20 Antibody Screen Negative 12/05/18 18:20 BBK History Checked Patient has bt 12/05/18 18:20 - Hospital Course Hospital Course: 47 year old male with PMHx of ESRD on HD, CVA, NIDDM, HTN, HLD, SBO and ischemic bowel s/p exploratory laparotomy with small bowel resection and primary ansastamosis on 11/11/18 was readmitted to [facility] on 12/05/18 due to gastroparesis and abdominal wall wound. Patient was discharged home on 12/04/18 after 3 weeks of hospitalization with IV abx but returned to ER on 12/05/18 due to nausea and vomiting. CT A/P on 12/05/18 shows stable umbilical abscess tracking superiorly measuring roughly 3 cm in transverse dimension containing fluid and gas particle. During hospitalization, general surgery, alum mixer Dr. Jc, psychological science professor Dr. Rodríguez, ID specialist Dr. Elam were involved in the care. Patients wound culture on 11/23/18 grew Proteus mirabilis. Patient received post HD Vancomycin and Amikacin while in the hospital. This afternoon, patient reports he is feeling better and wants to go home. Denies any nausea, vomiting, abdominal pain, fever or chills. Patient is hemodynamically stable to discharge home with appropriate f/u and IV abx that were prescribed in the last visit. Advised to follow up with Dr. Kyle and Dr. Gee in 1 week. Discharge Exam - Head Exam Head Exam: NORMAL INSPECTION - Additional Findings Additional findings: - Constitutional Appears: No Acute Distress - Head Exam Head Exam: NORMAL INSPECTION - ENT Exam ENT Exam: Mucous Membranes Moist - Respiratory Exam Respiratory Exam: Clear to Ausculation Bilateral, NORMAL BREATHING PATTERN. absent: Rhonchi, Wheezes - Cardiovascular Exam Cardiovascular Exam: REGULAR RHYTHM, +S1, +S2 - GI/Abdominal Exam GI & Abdominal Exam: Soft, Normal Bowel Sounds. absent: Tenderness Additional comments: midline scar-packing looks C/D/I. No surrounding erythema or swelling. - Extremities Exam Extremities Exam: Normal Inspection. absent: Calf Tenderness, Pedal Edema - Neurological Exam Neurological Exam: Alert, Awake, Oriented x3 - Skin Skin Exam: Normal Color, Warm Discharge Plan - Discharge Medications Prescriptions: Ondansetron ODT [Zofran ODT] 4 mg PO Q6 PRN #20 odt PRN Reason: Nausea/Vomiting - Follow Up Plan Condition: FAIR Disposition: HOME/ ROUTINE Instructions: Gastroparesis (Delayed Gastric Emptying) (DC), Abscess (GEN) Additional Instructions: follow up with primary MD 1 week resume hemodialysis [facility] and amikacin with dialysis. Referrals: Coy Kyle MD [Staff Provider] - Kobe Rodríguez MD [Staff Provider] - Jung Jc MD, PhD [Staff Provider] -
--- NOTE | 2018-12-09 17:28 | CP.PCM.PN ---
Subjective - Date & Time of Evaluation Date of Evaluation: 12/09/18 Time of Evaluation: 17:30 - Subjective Subjective: I D NOTE PATIENT TO BE DISCHARGED [id number] MADE FOR POST HD ANTIBIOTICS(VANCOMYCIN/AMIKACIN Objective - Vital Signs/Intake and Output Vital Signs (last 24 hours): Temp Pulse Resp BP Pulse Ox 98.1 F 92 H 20 101/64 96 12/09/18 16:20 12/09/18 16:20 12/09/18 16:20 12/09/18 16:20 12/09/18 16:20 - Medications Medications: Current Medications Acetaminophen (Tylenol 325mg Tab) 650 mg PO Q6 PRN PRN Reason: Pain, Mild (1-3) Allopurinol (Zyloprim) 100 mg PO DAILY [facility] Last Admin: 12/09/18 09:16 Dose: 100 mg Calcitriol (Rocaltrol) 0.25 mcg PO TID [facility] Last Admin: 12/09/18 13:37 Dose: 0.25 mcg Epoetin Mitchell (Procrit) 10,000 unit IV [facility] Last Admin: 12/08/18 13:44 Dose: 10,000 unit Ferrous Sulfate (Feosol) 325 mg PO TID [facility] Last Admin: 12/09/18 13:37 Dose: 325 mg Folic Acid (Folic Acid) 1 mg PO DAILY [facility] Last Admin: 12/09/18 09:16 Dose: 1 mg Gabapentin (Neurontin) 100 mg PO TID [facility] Last Admin: 12/09/18 13:38 Dose: 100 mg Glipizide (Glucotrol) 10 mg PO BID [facility] Last Admin: 12/09/18 09:17 Dose: 10 mg Heparin Sodium (Porcine) (Heparin) 5,000 units SC Q8 [facility]; Protocol Last Admin: 12/09/18 09:15 Dose: 5,000 units Amikacin Sulfate 500 mg/ (Sodium Chloride) 102 mls @ 101.185 mls/hr IVPB [facility]; Protocol Last Admin: 12/08/18 08:54 Dose: 101.185 mls/hr Vancomycin HCl 1 gm/ Sodium (Chloride) 250 mls @ 166.667 mls/hr IVPB [facility]; Protocol Last Admin: 12/08/18 13:38 Dose: 166.667 mls/hr Insulin Human Lispro (Humalog) 7 units SC ACTID [facility] Last Admin: 12/09/18 11:30 Dose: Not Given Lactic Acid (Lac-Hydrin 12% Lotion (225 G)) 1 applic TOP DAILY [facility] Last Admin: 12/09/18 09:16 Dose: 1 applic Losartan Potassium (Cozaar) 50 mg PO QPM [facility] Last Admin: 12/08/18 19:06 Dose: 50 mg Metoclopramide HCl (Reglan) 5 mg IVP Q8 [facility] Last Admin: 12/09/18 09:15 Dose: 5 mg Metoprolol Tartrate (Lopressor) 12.5 mg PO BIDWM [facility] Last Admin: 12/09/18 09:17 Dose: Not Given Metronidazole (Flagyl) 125 mg PO TID [facility]; Protocol Last Admin: 12/09/18 13:37 Dose: 125 mg Nifedipine (Procardia Xl) 60 mg PO QPM [facility] Last Admin: 12/08/18 19:06 Dose: 60 mg Ondansetron HCl (Zofran Inj) 4 mg IVP Q8H [facility] Last Admin: 12/09/18 13:58 Dose: 4 mg Pantoprazole Sodium (Protonix Inj) 40 mg IVP DAILY [facility] Last Admin: 12/09/18 09:24 Dose: 40 mg Sitagliptin Phosphate (Januvia) 25 mg PO DAILY [facility] Last Admin: 12/09/18 09:17 Dose: 25 mg Tobramycin/Dexamethasone (Tobradex Opht Susp) 2 drop OU Q4 [facility] Last Admin: 12/09/18 13:39 Dose: 2 drop Tramadol HCl (Ultram) 50 mg PO Q6 PRN PRN Reason: Pain, moderate (4-7) Last Admin: 12/08/18 04:05 Dose: 50 mg Vitamin B Complex/Vit C/Folic Acid (Nephro-Elsa) 1 tab PO DAILY [facility] Last Admin: 12/09/18 09:17 Dose: 1 tab - Labs Labs: 12/09/18 05:40 12/09/18 05:40 PT 16.8 Seconds (9.8-13.1) H 12/05/18 18:20 INR 1.5 12/05/18 18:20 APTT 38.1 Seconds (25.6-37.1) H 12/05/18 18:20
--- NOTE | 2018-12-09 17:56 | CP.PCM.PN ---
Subjective - Date & Time of Evaluation Date of Evaluation: 12/09/18 Time of Evaluation: 17:54 - Subjective Subjective: renal follow up note RENAL no events overnight diarrhea slightly better o: vs as below heent normal no jvd skin normal ap times 3 no fnd gen: nad +s1+s2 no rub lungs w/ reduced bs imp: esrd/htn/dm/anemia/diarrhea/abdominal abscess/secondary hyperparathyroidism continue hd mwf continue per schedule lytes ok volume stable on epo for anemia f/u gi/surg work up continue calcitriol abx per primary team dose for esrd Objective - Vital Signs/Intake and Output Vital Signs (last 24 hours): Temp Pulse Resp BP Pulse Ox 98.1 F 92 H 20 101/64 96 12/09/18 16:20 12/09/18 16:20 12/09/18 16:20 12/09/18 16:20 12/09/18 16:20 - Medications Medications: Current Medications Acetaminophen (Tylenol 325mg Tab) 650 mg PO Q6 PRN PRN Reason: Pain, Mild (1-3) Allopurinol (Zyloprim) 100 mg PO DAILY [facility] Last Admin: 12/09/18 09:16 Dose: 100 mg Calcitriol (Rocaltrol) 0.25 mcg PO TID [facility] Last Admin: 12/09/18 13:37 Dose: 0.25 mcg Epoetin Mitchell (Procrit) 10,000 unit IV [facility] [place] Last Admin: 12/08/18 13:44 Dose: 10,000 unit Ferrous Sulfate (Feosol) 325 mg PO TID [facility] Last Admin: 12/09/18 13:37 Dose: 325 mg Folic Acid (Folic Acid) 1 mg PO DAILY [facility] Last Admin: 12/09/18 09:16 Dose: 1 mg Gabapentin (Neurontin) 100 mg PO TID [facility] Last Admin: 12/09/18 13:38 Dose: 100 mg Glipizide (Glucotrol) 10 mg PO BID [facility] Last Admin: 12/09/18 09:17 Dose: 10 mg Heparin Sodium (Porcine) (Heparin) 5,000 units SC Q8 [facility]; Protocol Last Admin: 12/09/18 09:15 Dose: 5,000 units Amikacin Sulfate 500 mg/ (Sodium Chloride) 102 mls @ 101.185 mls/hr IVPB F [facility]; Protocol Last Admin: 12/08/18 08:54 Dose: 101.185 mls/hr Vancomycin HCl 1 gm/ Sodium (Chloride) 250 mls @ 166.667 mls/hr IVPB MWF [facility]; Protocol Last Admin: 12/08/18 13:38 Dose: 166.667 mls/hr Insulin Human Lispro (Humalog) 7 units SC ACTID [facility] Last Admin: 12/09/18 11:30 Dose: Not Given Lactic Acid (Lac-Hydrin 12% Lotion (225 G)) 1 applic TOP DAILY [facility] Last Admin: 12/09/18 09:16 Dose: 1 applic Losartan Potassium (Cozaar) 50 mg PO QPM [facility] Last Admin: 12/08/18 19:06 Dose: 50 mg Metoclopramide HCl (Reglan) 5 mg IVP Q8 [facility] Last Admin: 12/09/18 09:15 Dose: 5 mg Metoprolol Tartrate (Lopressor) 12.5 mg PO BIDWM [facility] Last Admin: 12/09/18 09:17 Dose: Not Given Nifedipine (Procardia Xl) 60 mg PO QPM [facility] Last Admin: 12/08/18 19:06 Dose: 60 mg Ondansetron HCl (Zofran Inj) 4 mg IVP Q8H [facility] Last Admin: 12/09/18 13:58 Dose: 4 mg Pantoprazole Sodium (Protonix Inj) 40 mg IVP DAILY [facility] Last Admin: 12/09/18 09:24 Dose: 40 mg Sitagliptin Phosphate (Januvia) 25 mg PO DAILY [facility] Last Admin: 12/09/18 09:17 Dose: 25 mg Tobramycin/Dexamethasone (Tobradex Opht Susp) 2 drop OU Q4 [facility] Last Admin: 12/09/18 13:39 Dose: 2 drop Tramadol HCl (Ultram) 50 mg PO Q6 PRN PRN Reason: Pain, moderate (4-7) Last Admin: 12/08/18 04:05 Dose: 50 mg Vitamin B Complex/Vit C/Folic Acid (Nephro-Elsa) 1 tab PO DAILY [facility] Last Admin: 12/09/18 09:17 Dose: 1 tab - Labs Labs: 12/09/18 05:40 12/09/18 05:40 PT 16.8 Seconds (9.8-13.1) H 12/05/18 18:20 INR 1.5 12/05/18 18:20 APTT 38.1 Seconds (25.6-37.1) H 12/05/18 18:20
== END 2018-12-09 17:50 | disposition home or self-care (01) | DRG 862 ==
LOC: H.ER 17:14 → H.ERHOLD 23:47 → H.MEDSURG1 12-06 03:07
PROVIDERS: ADMIT Internal Medicine; ATTEND Internal Medicine
PROC: 05HQ33Z Insertion of Infusion Device into Left External Jugular Vein, Percutaneous Approach (ICD-10-PCS; 2018-12-05)
PROC: 5A1D70Z Performance of Urinary Filtration, Intermittent, Less than 6 Hours Per Day (ICD-10-PCS; principal; 2018-12-06)
DX: T81.41XA Infection following a procedure, superficial incisional surgical site, initial encounter (principal); N18.6 End stage renal disease; I12.0 Hypertensive chronic kidney disease with stage 5 chronic kidney disease or end stage renal disease; L02.216 Cutaneous abscess of umbilicus; N25.81 Secondary hyperparathyroidism of renal origin; K91.2 Postsurgical malabsorption, not elsewhere classified; E11.43 Type 2 diabetes mellitus with diabetic autonomic (poly)neuropathy; K31.84 Gastroparesis; Z99.2 Dependence on renal dialysis; E11.22 Type 2 diabetes mellitus with diabetic chronic kidney disease; E11.51 Type 2 diabetes mellitus with diabetic peripheral angiopathy without gangrene; E78.00 Pure hypercholesterolemia, unspecified; E78.5 Hyperlipidemia, unspecified; F17.200 Nicotine dependence, unspecified, uncomplicated; Z88.0 Allergy status to penicillin; K29.70 Gastritis, unspecified, without bleeding; Z86.73 Personal history of transient ischemic attack (TIA), and cerebral infarction without residual deficits; Z89.511 Acquired absence of right leg below knee; E11.65 Type 2 diabetes mellitus with hyperglycemia; Y83.6 Removal of other organ (partial) (total) as the cause of abnormal reaction of the patient, or of later complication, without mention of misadventure at the time of the procedure; D64.9 Anemia, unspecified; B96.4 Proteus (mirabilis) (morganii) as the cause of diseases classified elsewhere

== ENCOUNTER 2018-12-13 16:46 | Inpatient (IN) | payer OTHER ==
[2018-12-13] MEDS ORDERED: Sodium Chloride 0.9% 1,000 ML IV STA ×4 (17:00→18:44)
--- NOTE | 2018-12-13 17:02 | ED PDOC ---
HPI: Abdomen Time Seen by Provider: 12/13/18 16:49 Chief Complaint (Nursing): Abdominal Pain Chief Complaint (Provider): Diarrhea History Per: Patient, EMS, Family History/Exam Limitations: no limitations Onset/Duration Of Symptoms: Days (Dec 05) Additional Complaint(s): Pt. with diarrhea since Dec 05, nonbloody. Also with abd pain lower. Nausea, weakness. Decreased appetite. Pt. was seen recently for an abscess in surgical area. Had surgery 1 month approx ago for bowel perforation. Pt. was ambulating at home when EMS arrived. They had bp of 60 systolic. Pt. denies any chest pain, dyspnea, fever. No new food or drinks. No back pain. No numbness, tingles. PCP Ysabel Gee. Missed 2 dialysis runs. Past Medical History Reviewed: Nursing Documentation, Vital Signs Vital Signs: Last Vital Signs Temp 97.5 F L 12/13/18 16:48 Pulse 65 12/13/18 16:48 Resp 18 12/13/18 16:48 BP 60/31 L 12/13/18 16:48 Pulse Ox 100 12/13/18 16:48 - Medical History PMH: Anemia, CVA, Diabetes (type II), Gastritis, HTN, Hypercholesterolemia, Hyperlipidemia, End Stage Renal Disease, Chronic Kidney Disease Denies: Arthritis, CHF, COPD, HIV, Hypothyroidism, Rheumatoid Arthritis - Surgical History Other surgeries: revision of fistula and amputation of right foot; colon resection - Family History Family History: States: Unknown Family Hx - Living Arrangements Living Arrangements: With Family - Immunization History Hx Tetanus Toxoid Vaccination: No Hx Influenza Vaccination: No Hx Pneumococcal Vaccination: No - Home Medications Home Medications: Ambulatory Orders Medication Instructions Recorded Ferrous Sulfate [Feosol] 325 mg PO TID 10/16/18 Allopurinol [Zyloprim] 100 mg PO DAILY #30 tab 11/06/18 Calcitriol 0.25 mcg PO TID 30 Days capsule 11/06/18 Folic Acid 1 mg PO DAILY #30 tab 11/06/18 Gabapentin [Neurontin] 100 mg PO TID 30 Days capsule 11/06/18 GlipiZIDE [Glucotrol] 10 mg PO BID 30 Days tab 11/06/18 Metoprolol Tartrate [Lopressor] 12.5 mg PO BIDCC 30 Days tab 11/06/18 NIFEdipine ER [Procardia XL] 60 mg PO QPM [address] 11/06/18 Pantoprazole [Protonix EC Tab] 40 mg PO DAILY 30 Days ect 11/06/18 Rosuvastatin Calcium [Crestor] 5 mg PO HS 30 Days tab 11/06/18 Amikacin [Amikacin 500 mg/2ml Inj] 500 mg IV MWF #3 vial 12/04/18 Ammonium Lactate 12% [Lac-Hydrin 1 applic TOP DAILY #1 bottle 12/04/18 12% Lotion (225 g)] Dexamethasone/Tobramycin [Tobradex 2 drop OU Q4 #1 bottle 12/04/18 Opht Susp] Epoetin Mitchell [Procrit] 10,000 unit IV MWF ml 12/04/18 Losartan [Cozaar] 50 mg PO QPM #30 tab 12/04/18 Vancomycin 1gm in NS 250ml 1 gm IV MWF #3 bag 12/04/18 [Vancomycin 1gm] Insulin Lispro [humALOG] 7 unit SC ACTID 12/05/18 SITagliptin [Januvia] 25 mg PO BID 12/05/18 Vitamin B Complex/Vit C/Folic 1 tab PO DAILY 12/05/18 [Nephro-Elsa] Ondansetron ODT [Zofran ODT] 4 mg PO Q6 PRN #20 odt 12/09/18 - Allergies Allergies/Adverse Reactions: Allergies Allergy/AdvReac Type Severity Reaction Status Date / Time Penicillins Allergy RASH Verified 12/13/18 16:48 Review of Systems ROS Statement: Except As Marked, All Systems Reviewed And Found Negative Constitutional: Positive for: Weakness Gastrointestinal: Positive for: Nausea, Abdominal Pain, Diarrhea Neurological: Positive for: Weakness, Dizziness Physical Exam - Reviewed Nursing Documentation Reviewed: Yes Vital Signs Reviewed: Yes - Physical Exam Appears: Positive for: Uncomfortable Head Exam: Positive for: ATRAUMATIC, NORMAL INSPECTION, NORMOCEPHALIC Skin: Positive for: Normal Color, Warm, DRY Eye Exam: Positive for: EOMI, Normal appearance, PERRL ENT: Positive for: Normal ENT Inspection Neck: Positive for: Normal, Painless ROM, Supple Cardiovascular/Chest: Positive for: Regular Rate, Rhythm Respiratory: Positive for: Normal Breath Sounds. Negative for: Decreased Breath Sounds, Accessory Muscle Use Gastrointestinal/Abdominal: Positive for: Soft, Tenderness (mild suprapubic), Other (vertical surgical scar with center of it open (1cm diameter). No dc or tenderness. No erythema.) Back: Positive for: Normal Inspection. Negative for: L CVA Tenderness, R CVA Tenderness Extremity: Positive for: Normal ROM, Other (R foot amputated). Negative for: Tenderness, Pedal Edema Neurologic/Psych: Positive for: Alert, machine clerical verifier II-XII, Oriented, Motor/Sensory Deficits (3/5 strength all extremities) - Laboratory Results Result Diagrams: 12/13/18 17:15 12/13/18 17:15 Interpretation Of Abn Labs: 21.7 wbc, co2 low - ECG O2 Sat by Pulse Oximetry: 100 Pulse Ox Interpretation: Normal - Progress ED Course And Treament: 1851: Feels better. Pt. likely dehydrated and will give 3rd liter of fluids and then continue maintenance. AAOx3. BP improving. Meets sepsis criteria. Will give cipro and flagyl. 2000: Vitals improving with fluids. Will continue fluids. 2030: Spoke with Dr. Reed who will admit. Spoke with Dr. Whitmore who will admit to ICU. AAOx3. Stable. BP at 104 systolic. No dyspnea. - Critical Care Total Time (In Min): 60 Documented Critical Care: Time excludes all time spent performint seperately billable procedures Disposition - Clinical Impression Clinical Impression: Abdominal pain, Sepsis, Severe dehydration, Diarrhea - Patient ED Disposition Is Patient to be Admitted: Yes Counseled Patient/Family Regarding: Studies Performed, Diagnosis - Disposition Disposition Time: 19:30 Condition: SERIOUS - Pt Status Changed To: Hospital Disposition Of: Inpatient - Admit Certification Admit to Inpatient:: After my assessment, the patient will require hospitalization for at least two midnights. This is because of the severity of symptoms shown, intensity of services needed, and/or the medical risk in this patient being treated as an outpatient. - POA Present On Arrival: None
[2018-12-13 17:16] LABS: VENOUS BLOOD GAS BASE EXCESS -21.3 mmol/L (0.0-2.0); VENOUS BLOOD GAS PCO2 26 mmHg (40-60); VENOUS BLOOD GAS PO2 37 mm/Hg (30-55); VENOUS BLOOD PH 7.07 (7.32-7.43)
[2018-12-13 17:29] LABS: INR 1.6; PROTHROMBIN TIME 18.1 Seconds (9.8-13.1)
[2018-12-13 17:31] LABS: BASO # 0.1 K/uL (0.0-0.2); BASO % 0.5 % (0.0-2.0); EOS # 0.1 K/uL (0.0-0.7); EOS % 0.3 % (0.0-4.0); HEMOGLOBIN 9.2 g/dL (12.0-18.0); LYMPH # 1.7 K/uL (1.0-4.3); LYMPH % 7.8 % (20.0-40.0); MEAN CELL VOLUME 76.1 fl (80.0-94.0); MEAN CORPUSCULAR HGB CONC 30.3 g/dL (33.0-37.0); MEAN PLATELET VOLUME 7.3 fl (7.2-11.7); MONO # 1.1 K/uL (0.0-0.8); NEUT # 18.7 K/uL (1.8-7.0); NEUT % 86.4 % (50.0-75.0); PLATELET COUNT 358 K/uL (130-400); RBC 4.01 Mil/uL (4.40-5.90); RED CELL DISTRIBUTION WIDTH 19.3 % (11.5-14.5); WHITE BLOOD COUNT 21.7 K/uL (4.8-10.8)
[2018-12-13 17:32] LABS: PARTIAL THROMBOPLASTIN TIME 39.7 Seconds (25.6-37.1)
[2018-12-13] MEDS ORDERED: Sodium Chloride 0.9% 500 ML IV STA (18:09)
[2018-12-13 18:28] LABS: ALB/GLOB RATIO 0.8 (1.0-2.1); ALBUMIN 3.1 g/dL (3.5-5.0); ALT/SGPT 24 U/L (21-72); AST/SGOT 26 U/L (17-59); BLOOD UREA NITROGEN 51 mg/dl (9-20); CALCIUM 9.1 mg/dL (8.4-10.2); GFR NON-AFRICAN AMERICAN 5
[2018-12-13 18:41] LABS: LYMPHOCYTE 10 % (20-50); MONOCYTE 7 % (0-10); NEUTROPHIL 83 % (42-75); PLATELET ESTIMATE NORMAL (NORMAL); TOTAL CELLS COUNTED 100
[2018-12-13 18:42] LABS: ANISOCYTOSIS SLIGHT; HYPOCHROMIC SLIGHT; LARGE PLATELETS PRESENT; OVALOCYTES MODERATE
[2018-12-13] MEDS ORDERED: metroNIDAZOLE 500mg/100ml NS 100 ML IV STA (18:54)
[2018-12-13] MEDS ORDERED: Ciprofloxacin 400mg/200ml D5W 400 MG/200 ML BAG IV STA (18:54)
[2018-12-13] MEDS ORDERED: metroNIDAZOLE 500mg/100ml NS 100 ML IVPB ONE (19:18)
[2018-12-13] MEDS ORDERED: Ciprofloxacin 400mg/200ml D5W 400 MG/200 ML BAG IVPB ONE (19:18)
[2018-12-13] MEDS ORDERED: Lactated Ringer's 1,000 ML IV SCH (21:00)
--- NOTE | 2018-12-13 21:21 | CP.PCM.CON ---
History of Present Illness - History of Present Illness History of Present Illness: CC/reason for ICU: Sepsis, hypotension HPI: This is a 47 y/o male with multiple chronic conditions including ESRD on MWF HD, DM2, HTN, HLD and recent surgery for abdominal abscess/bowel perforation who comes in with c/o nonbloody diarrhea for the past week, abd pain, nausea, and weakness. When EMS arrived patient was ambulating, but his SBP was apparently 60. Patient denies f/c. Patient denies CP/SOB. Patient appears to be IV antibiotics with HD sessions (Vanc, Amikacin). Patient has, however, missed 2 HD sessions. PCP: Gerard ROS: Limited, acuity of condition MHx: HTN, HLD, DM2, CVA, ESRD on MWF HD; patient with recent abdominal surgery SHx: Recent abdominal surgery for abscess; prior surgery for CVA, EGD 09/18 with gastritis/erosive esophagitis Allergies: PCN Medications: Per med rec Family Hx: Patient cannot provide any relevant history Social Hx: Lives with family, no current tobacco (prior smoker), no EtOH Past Patient History - Infectious Disease Hx of Infectious Diseases: None - Past Medical History & Family History Past Medical History?: Yes - Past Social History Smoking Status: Former Smoker - CARDIAC Hx Congestive Heart Failure: No Hx Hypercholesterolemia: Yes Hx Hypertension: Yes - PULMONARY Hx Chronic Obstructive Pulmonary Disease (COPD): No - NEUROLOGICAL Hx Neurological Disorder: Yes HX Cerebrovascular Accident: Yes - HEENT Hx HEENT Problems: No - RENAL Hx Chronic Kidney Disease: Yes - ENDOCRINE/METABOLIC Hx Hypothyroidism: No - HEMATOLOGICAL/ONCOLOGICAL Hx Anemia: Yes Hx Human Immunodeficiency Virus (HIV): No - INTEGUMENTARY Hx Dermatological Problems: No - MUSCULOSKELETAL/RHEUMATOLOGICAL Hx Arthritis: No Hx Rheumatoid Arthritis: No - GASTROINTESTINAL Hx Gastritis: Yes - GENITOURINARY/GYNECOLOGICAL Hx Genitourinary Disorders: No - PSYCHIATRIC Hx Psychophysiologic Disorder: No Hx Substance Use: No - SURGICAL HISTORY Hx Surgeries: Yes Hx Amputation: Yes (tma right foot) Other/Comment: left suboccipital craniotomy and right ankle surgery - ANESTHESIA Hx Anesthesia: Yes Hx Anesthesia Reactions: No Hx Malignant Hyperthermia: No Meds Allergies/Adverse Reactions: Allergies Allergy/AdvReac Type Severity Reaction Status Date / Time Penicillins Allergy RASH Verified 12/13/18 16:48 - Medications Medications: Current Medications Allopurinol (Zyloprim) 100 mg PO DAILY [facility] Calcitriol (Rocaltrol) 0.25 mcg PO TID [facility] Folic Acid (Folic Acid) 1 mg PO DAILY [facility] Gabapentin (Neurontin) 100 mg PO TID [facility] Home Med (Rosuvastatin Calcium [Crestor]) 5 mg PO HS [facility] Sodium Chloride (Sodium Chloride 0.9%) 1,000 mls @ 150 mls/hr IV .Q6H40M STA Stop: 12/14/18 00:48 Ciprofloxacin (Cipro 200mg/100ml D5w) 100 mls @ 100 mls/hr IVPB Q12 [facility]; Protocol Metronidazole 250 mg/ (Miscellaneous) 50 mls @ 50 mls/hr IVPB Q8 [facility]; Protocol Lactated Ringer's (Lactated Ringer's) 1,000 mls @ 125 mls/hr IV .Q8H [facility] Stop: 12/14/18 04:59 Lactic Acid (Lac-Hydrin 12% Lotion (225 G)) 1 applic TOP DAILY [facility] Pantoprazole Sodium (Protonix Ec Tab) 40 mg PO DAILY [facility] Vitamin B Complex/Vit C/Folic Acid (Nephro-Elsa) 1 tab PO DAILY [facility] Physical Exam - Constitutional Appears: Toxic - Head Exam Head Exam: ATRAUMATIC, NORMOCEPHALIC - Eye Exam Eye Exam: EOMI, PERRL - ENT Exam ENT Exam: Mucous Membranes Dry - Neck Exam Neck exam: Positive for: Full Rom - Respiratory Exam Respiratory Exam: Clear to Auscultation Bilateral, NORMAL BREATHING PATTERN - Cardiovascular Exam Cardiovascular Exam: REGULAR RHYTHM, +S1, +S2 - GI/Abdominal Exam GI & Abdominal Exam: Normal Bowel Sounds, Soft Additional comments: incision with an ?drainage; no obvious erythemia - Extremities Exam Additional comments: RLE partial foot amputation - Neurological Exam Neurological exam: Alert, CN II-XII Intact, Oriented x3 - Psychiatric Exam Psychiatric exam: Normal Affect, Normal Mood - Skin Additional comments: abdomen as noted above Results - Vital Signs Recent Vital Signs: Last Vital Signs Temp 97.5 F L 12/13/18 17:21 Pulse 97 H 12/13/18 19:40 Resp 24 12/13/18 19:40 BP 104/60 12/13/18 19:40 Pulse Ox 100 12/13/18 20:41 - Labs Result Diagrams: 12/13/18 17:15 12/13/18 17:15 Labs: Laboratory Results - last 24 hr 12/13/18 12/13/18 12/13/18 16:54 17:13 17:15 WBC 21.7 H D RBC 4.01 L Hgb 9.2 L Hct 30.5 L MCV 76.1 L MCH 23.0 L MCHC 30.3 L RDW 19.3 H Plt Count 358 D MPV 7.3 Neut % (Auto) 86.4 H Lymph % (Auto) 7.8 L [place] % (Auto) 5.0 Eos % (Auto) 0.3 Baso % (Auto) 0.5 Neut # (Auto) 18.7 H Lymph # (Auto) 1.7 [place] # (Auto) 1.1 H Eos # (Auto) 0.1 Baso # (Auto) 0.1 Neutrophils % (Manual) 83 H Lymphocytes % (Manual) 10 L Monocytes % (Manual) 7 Platelet Estimate Normal Large Platelets Present Hypochromasia (manual) Slight Anisocytosis (manual) Slight Ovalocytes Moderate PT INR APTT pO2 37 VBG pH 7.07 L* VBG pCO2 26 L VBG HCO3 6.9 VBG Total CO2 8.3 L VBG O2 Sat (Calc) 65.4 H VBG Base Excess -21.3 L VBG Potassium 3.7 Sodium 128.0 L Chloride 104.0 Glucose 159 H Lactate 1.2 FiO2 21.0 Crit Value Called To Maurice berry md Crit Value Called By 6068 Crit Value Read Back Y Blood Gas Notified Time 1716 Potassium Carbon Dioxide Anion Gap BUN Creatinine Est GFR ( Amer) Est GFR (Non-Af Amer) POC Glucose (mg/dL) 153 H Random Glucose Calcium Phosphorus Magnesium Total Bilirubin AST ALT Alkaline Phosphatase Troponin I Total Protein Albumin Globulin Albumin/Globulin Ratio Venous Blood Potassium 3.7 12/13/18 12/13/18 17:15 17:15 WBC RBC Hgb Hct MCV MCH MCHC RDW Plt Count MPV Neut % (Auto) Lymph % (Auto) [place] % (Auto) Eos % (Auto) Baso % (Auto) Neut # (Auto) Lymph # (Auto) [place] # (Auto) Eos # (Auto) Baso # (Auto) Neutrophils % (Manual) Lymphocytes % (Manual) Monocytes % (Manual) Platelet Estimate Large Platelets Hypochromasia (manual) Anisocytosis (manual) Ovalocytes PT 18.1 H INR 1.6 APTT 39.7 H pO2 VBG pH VBG pCO2 VBG HCO3 VBG Total CO2 VBG O2 Sat (Calc) VBG Base Excess VBG Potassium Sodium 132 Chloride 107 Glucose Lactate FiO2 Crit Value Called To Crit Value Called By Crit Value Read Back Blood Gas Notified Time Potassium 4.0 Carbon Dioxide 8 L* D Anion Gap 21 H BUN 51 H Creatinine 11.5 H* D Est GFR ( Amer) 6 Est GFR (Non-Af Amer) 5 POC Glucose (mg/dL) Random Glucose 153 H Calcium 9.1 Phosphorus 7.2 H Magnesium 1.3 L Total Bilirubin 0.3 AST 26 ALT 24 Alkaline Phosphatase 132 H D Troponin I < 0.0120 Total Protein 7.1 Albumin 3.1 L Globulin 4.0 H Albumin/Globulin Ratio 0.8 L Venous Blood Potassium Assessment & Plan (1) Sepsis Assessment and Plan: 47 y/o male with multiple comorbidities and recent abdominal surgery the month prior here with diarrhea, sepsis/hypotension. -Admit to ICU -CT abdomen pending -Send wound culture from abd drainage; f/u cultures -Cont IVF, but scale down to LR at 125 cc/hr, given he has already received several boluses and is an HD patient -Cont Cipro/Flagyl for now; it appears he was on Vanc/Amikacin as outpatient with HD, will obtain levels -ID consult ([facility]) for further mgmt of abx -Renal consult in AM for HD -Consider surgery consult as needed based on results of CT -SCDs only for DVT PPx given history of bleeding, gastric erosion, etc. Status: Acute (2) Diarrhea Status: Acute (3) Severe dehydration Status: Acute (4) ESRD (end stage renal disease) on dialysis Status: Chronic Priority: High (5) DVT prophylaxis Status: Acute
[2018-12-13] MEDS: Insulin Lispro (humaLOG) 100 Units/ml Inj SC SCH (23:00)
[2018-12-13] MEDS: Lactated Ringer's 250 ML IV SCH (23:30)
[2018-12-14] MEDS: Lactated Ringer's 250 ML IV SCH ×2 (00:30→01:34)
[2018-12-14] MEDS: metroNIDAZOLE 500mg/100ml NS 250 MG in Premixed IV 1 EA IVPB SCH ×3 (01:11→17:15)
[2018-12-14] MEDS ORDERED: Aztreonam 2 GM in Sodium Chloride 0.9% 100 ML IVPB STA (02:02)
--- NOTE | 2018-12-14 02:22 | CP.PCM.CON ---
<Bryan Clark - Last Filed: 12/14/18 03:01> History of Present Illness - History of Present Illness History of Present Illness: Surgery Consult note. Dr. Kyle 47yo M with PMHx of ESRD, CVA, HTN, DM, PVD and recent SB resection of approx 80% of Small Bowel due perforated viscous and ischemia. Here for evaluation of lower abdominal pain, nausea, diarrhea and weakness. Patient states that he has been feeling increasingly fatigued over the past week. Abd pain gradually started and has been getting worse over the same time period. Associated with nausea, no vomiting, some diarrhea, non-bloody. Does report a decreased appetite. Denies any fevers but does report some chills. States that he gets HD MWF however, he was unable to get HD for the past two time due to hypotension. He denies any CP/SOB. PMH: ESRD, CVA, HTN, DM, PVD PSHx: SB resection for perforated viscous and ischemic bowel 11/11/18, R IJ permacath, R AVF, R TMA Family Hx: non-contributory Social hx: Admits to previous tobacco use, Denies ETOH, Denies illicit drugs Allergy: PCNs (rash, pruritis) Review of Systems - Review of Systems All systems: reviewed and no additional remarkable complaints except - Constitutional Constitutional: Anorexia, Chills. absent: Fever - Cardiovascular Cardiovascular: absent: Chest Pain, Dyspnea - Respiratory Respiratory: absent: Dyspnea - Gastrointestinal Gastrointestinal: Abdominal Pain, Diarrhea, Nausea. absent: Coffee Ground Emesis, Hematemesis, Hematochezia, Vomiting Past Patient History - Infectious Disease Hx of Infectious Diseases: None - Past Medical History & Family History Past Medical History?: Yes - Past Social History Smoking Status: Former Smoker Alcohol: None Drugs: Denies - CARDIAC Hx Congestive Heart Failure: No Hx Hypercholesterolemia: Yes Hx Hypertension: Yes - PULMONARY Hx Chronic Obstructive Pulmonary Disease (COPD): No - NEUROLOGICAL Hx Neurological Disorder: Yes HX Cerebrovascular Accident: Yes - HEENT Hx HEENT Problems: No - RENAL Hx Chronic Kidney Disease: Yes - ENDOCRINE/METABOLIC Hx Hypothyroidism: No - HEMATOLOGICAL/ONCOLOGICAL Hx Anemia: Yes Hx Human Immunodeficiency Virus (HIV): No - INTEGUMENTARY Hx Dermatological Problems: No - MUSCULOSKELETAL/RHEUMATOLOGICAL Hx Arthritis: No Hx Rheumatoid Arthritis: No - GASTROINTESTINAL Hx Gastritis: Yes - GENITOURINARY/GYNECOLOGICAL Hx Genitourinary Disorders: No - PSYCHIATRIC Hx Psychophysiologic Disorder: No Hx Substance Use: No - SURGICAL HISTORY Hx Surgeries: Yes Hx Amputation: Yes (tma right foot) Other/Comment: left suboccipital craniotomy and right ankle surgery - ANESTHESIA Hx Anesthesia: Yes Hx Anesthesia Reactions: No Hx Malignant Hyperthermia: No Meds Allergies/Adverse Reactions: Allergies Allergy/AdvReac Type Severity Reaction Status Date / Time Penicillins Allergy RASH Verified 12/13/18 16:48 - Medications Medications: Current Medications Acetaminophen (Tylenol 325mg Tab) 650 mg PO Q6 PRN PRN Reason: pain (1-10) Last Admin: 12/14/18 01:18 Dose: 650 mg Acetaminophen (Tylenol 325mg Tab) 650 mg PO Q6H PRN PRN Reason: Fever >100.4 F Allopurinol (Zyloprim) 100 mg PO DAILY [facility] Atorvastatin Calcium (Lipitor) 10 mg PO HS [facility] Last Admin: 12/13/18 23:30 Dose: 10 mg Calcitriol (Rocaltrol) 0.25 mcg PO TID [facility] Folic Acid (Folic Acid) 1 mg PO DAILY [facility] Gabapentin (Neurontin) 100 mg PO TID [facility] Metronidazole 250 mg/ (Miscellaneous) 50 mls @ 50 mls/hr IVPB Q8 [facility]; Protocol Last Admin: 12/14/18 01:11 Dose: 50 mls/hr Lactated Ringer's (Lactated Ringer's) 1,000 mls @ 125 mls/hr IV .Q8H [facility] Stop: 12/14/18 04:59 Last Admin: 12/13/18 22:30 Dose: 125 mls/hr Lactated Ringer's (Lactated Ringer's) 250 mls @ 250 mls/hr IV .Q1H [facility] Last Admin: 12/14/18 01:34 Dose: 250 mls/hr Norepinephrine Bitartrate 4 mg (/ Dextrose) 254 mls @ 9.53 mls/hr IV .Q24H [facility]; Protocol Aztreonam 2 gm/ Sodium (Chloride) 100 mls @ 100 mls/hr IVPB STAT ST[facility]; Protocol Stop: 12/14/18 03:01 Insulin Human Lispro (Humalog) 0 units SC Q6H [facility]; Protocol Last Admin: 12/13/18 23:00 Dose: Not Given Lactic Acid (Lac-Hydrin 12% Lotion (225 G)) 1 applic TOP DAILY [facility] Ondansetron HCl (Zofran Inj) 4 mg IVP Q6H PRN PRN Reason: Nausea/Vomiting Pantoprazole Sodium (Protonix Ec Tab) 40 mg PO DAILY [facility] Vitamin B Complex/Vit C/Folic Acid (Nephro-Elsa) 1 tab PO DAILY [facility] Physical Exam - Constitutional Appears: No Acute Distress, Older Than Stated Age - Head Exam Head Exam: ATRAUMATIC, NORMAL INSPECTION, NORMOCEPHALIC - Eye Exam Eye Exam: EOMI, Normal appearance. absent: Scleral icterus - ENT Exam ENT Exam: Mucous Membranes Moist - Respiratory Exam Respiratory Exam: NORMAL BREATHING PATTERN. absent: Accessory Muscle Use, Respiratory Distress - Cardiovascular Exam Cardiovascular Exam: absent: JVD - GI/Abdominal Exam GI & Abdominal Exam: Soft. absent: Distended, Firm, Guarding, Rebound, Rigid Additional comments: Mild tenderness to palpation RLQ > LLQ. Non-distended. Midline incision with some drainage noted. no erythema, no induration - Extremities Exam Extremities exam: Positive for: normal inspection. Negative for: calf tenderness - Back Exam Back exam: NORMAL INSPECTION - Neurological Exam Neurological exam: Alert, Oriented x3 - Psychiatric Exam Psychiatric exam: Normal Affect, Normal Mood Results - Vital Signs Recent Vital Signs: Last Vital Signs Temp 96.7 F L 12/14/18 00:00 Pulse 98 H 12/14/18 01:00 Resp 16 12/14/18 01:00 BP 65/42 L 12/14/18 01:00 Pulse Ox 100 12/14/18 01:00 - Labs Result Diagrams: 12/13/18 17:15 12/13/18 17:15 Labs: Laboratory Results - last 24 hr 12/13/18 12/13/18 12/13/18 16:54 17:13 17:15 WBC 21.7 H D RBC 4.01 L Hgb 9.2 L Hct 30.5 L MCV 76.1 L MCH 23.0 L MCHC 30.3 L RDW 19.3 H Plt Count 358 D MPV 7.3 Neut % (Auto) 86.4 H Lymph % (Auto) 7.8 L Rankin % (Auto) 5.0 Eos % (Auto) 0.3 Baso % (Auto) 0.5 Neut # (Auto) 18.7 H Lymph # (Auto) 1.7 Rankin # (Auto) 1.1 H Eos # (Auto) 0.1 Baso # (Auto) 0.1 Neutrophils % (Manual) 83 H Lymphocytes % (Manual) 10 L Monocytes % (Manual) 7 Platelet Estimate Normal Large Platelets Present Hypochromasia (manual) Slight Anisocytosis (manual) Slight Ovalocytes Moderate PT INR APTT pO2 37 VBG pH 7.07 L* VBG pCO2 26 L VBG HCO3 6.9 VBG Total CO2 8.3 L VBG O2 Sat (Calc) 65.4 H VBG Base Excess -21.3 L VBG Potassium 3.7 Sodium 128.0 L Chloride 104.0 Glucose 159 H Lactate 1.2 FiO2 21.0 Crit Value Called To Maurice berry md Crit Value Called By 6075 Crit Value Read Back Y Blood Gas Notified Time 1716 Potassium Carbon Dioxide Anion Gap BUN Creatinine Est GFR ( Amer) Est GFR (Non-Af Amer) POC Glucose (mg/dL) 153 H Random Glucose Calcium Phosphorus Magnesium Total Bilirubin AST ALT Alkaline Phosphatase Troponin I Total Protein Albumin Globulin Albumin/Globulin Ratio Venous Blood Potassium 3.7 12/13/18 12/13/18 12/13/18 17:15 17:15 22:58 WBC RBC Hgb Hct MCV MCH MCHC RDW Plt Count MPV Neut % (Auto) Lymph % (Auto) Rankin % (Auto) Eos % (Auto) Baso % (Auto) Neut # (Auto) Lymph # (Auto) Rankin # (Auto) Eos # (Auto) Baso # (Auto) Neutrophils % (Manual) Lymphocytes % (Manual) Monocytes % (Manual) Platelet Estimate Large Platelets Hypochromasia (manual) Anisocytosis (manual) Ovalocytes PT 18.1 H INR 1.6 APTT 39.7 H pO2 VBG pH VBG pCO2 VBG HCO3 VBG Total CO2 VBG O2 Sat (Calc) VBG Base Excess VBG Potassium Sodium 132 Chloride 107 Glucose Lactate FiO2 Crit Value Called To Crit Value Called By Crit Value Read Back Blood Gas Notified Time Potassium 4.0 Carbon Dioxide 8 L* D Anion Gap 21 H BUN 51 H Creatinine 11.5 H* D Est GFR ( Amer) 6 Est GFR (Non-Af Amer) 5 POC Glucose (mg/dL) 166 H Random Glucose 153 H Calcium 9.1 Phosphorus 7.2 H Magnesium 1.3 L Total Bilirubin 0.3 AST 26 ALT 24 Alkaline Phosphatase 132 H D Troponin I < 0.0120 Total Protein 7.1 Albumin 3.1 L Globulin 4.0 H Albumin/Globulin Ratio 0.8 L Venous Blood Potassium Assessment & Plan - Assessment and Plan (Free Text) Assessment: 47yo M with hx of SB resection due perforated viscous and ischemic bowel on 11/11. Here with sepsis and intraabdominal abscess - CT abd/pelvis noted: 6x4cm intraabdominal abscess in RLQ, appendix normal. Possible enterocolitis - Acidotic. - Leukocytosis Plan: - NPO - IVF - Aggressive ressucitation as per ICU team mgmt - Initiate pressors - Broaden Abx regimen - f/u ID recs - Recommend IR consult for percutaneous drainage of intraabdominal abscess. -f/u abscess fluid culture and sensitivity - Active rewarming Further recs as per Dr. Saroj Clark PGY2 surgery <Coy Kyle - Last Filed: 12/14/18 12:42> Meds - Medications Medications: Current Medications Acetaminophen (Tylenol 325mg Tab) 650 mg PO Q6 PRN PRN Reason: pain (1-10) Last Admin: 12/14/18 01:18 Dose: 650 mg Acetaminophen (Tylenol 325mg Tab) 650 mg PO Q6H PRN PRN Reason: Fever >100.4 F Allopurinol (Zyloprim) 100 mg PO DAILY [facility] Last Admin: 12/14/18 09:08 Dose: Not Given Atorvastatin Calcium (Lipitor) 10 mg PO HS [facility] Last Admin: 12/13/18 23:30 Dose: 10 mg Calcitriol (Rocaltrol) 0.25 mcg PO DAILY [facility] Epoetin Mitchell (Procrit) 10,000 unit IV MWF [facility] Folic Acid (Folic Acid) 1 mg PO DAILY [facility] Last Admin: 12/14/18 09:07 Dose: Not Given Gabapentin (Neurontin) 100 mg PO TID [facility] Last Admin: 12/14/18 09:07 Dose: Not Given Metronidazole 250 mg/ (Miscellaneous) 50 mls @ 50 mls/hr IVPB Q8 [facility]; Protocol Last Admin: 12/14/18 09:07 Dose: 50 mls/hr Norepinephrine Bitartrate 4 mg (/ Dextrose) 254 mls @ 9.53 mls/hr IV .Q24H [facility]; Protocol Last Titration: 12/14/18 12:08 Dose: 10 mcg/min, 38.1 mls/hr Pantoprazole Sodium 40 mg/ (Sodium Chloride) 100 mls @ 20 mls/hr IVPB Q5H [facility] Last Admin: 12/14/18 09:06 Dose: 20 mls/hr Sodium Bicarbonate 150 meq/ (Dextrose) 1,150 mls @ 125 mls/hr IV .Q9H12M [facility] Stop: 12/15/18 18:00 Last Admin: 12/14/18 11:43 Dose: 125 mls/hr Fluconazole (Diflucan Iv 100 Mg/50 Ml Ns) 50 mls @ 50 mls/hr IVPB DAILY [facility]; Protocol Last Admin: 12/14/18 11:48 Dose: 50 mls/hr Insulin Human Lispro (Humalog) 0 units SC Q6H [facility]; Protocol Last Admin: 12/14/18 11:01 Dose: 1 unit Lactic Acid (Lac-Hydrin 12% Lotion (225 G)) 1 applic TOP DAILY [facility] Last Admin: 12/14/18 11:01 Dose: 1 applic Metoclopramide HCl (Reglan) 10 mg IVP Q6 PRN PRN Reason: Nausea/Vomiting Last Admin: 12/14/18 05:00 Dose: 10 mg Ondansetron HCl (Zofran Inj) 4 mg IVP Q6H PRN PRN Reason: Nausea/Vomiting Last Admin: 12/14/18 12:30 Dose: 4 mg Vitamin B Complex/Vit C/Folic Acid (Nephro-Elsa) 1 tab PO DAILY [facility] Last Admin: 12/14/18 09:07 Dose: Not Given Results - Vital Signs Recent Vital Signs: Last Vital Signs Temp 98.5 F 12/14/18 12:00 Pulse 117 H 12/14/18 12:00 Resp 13 12/14/18 12:00 BP 122/67 12/14/18 12:00 Pulse Ox 100 12/14/18 12:00 - Labs Result Diagrams: 12/14/18 05:30 12/14/18 05:30 Labs: Laboratory Results - last 24 hr 12/13/18 12/13/18 12/13/18 16:54 17:13 17:15 WBC 21.7 H D RBC 4.01 L Hgb 9.2 L Hct 30.5 L MCV 76.1 L MCH 23.0 L MCHC 30.3 L RDW 19.3 H Plt Count 358 D MPV 7.3 Neut % (Auto) 86.4 H Lymph % (Auto) 7.8 L Rankin % (Auto) 5.0 Eos % (Auto) 0.3 Baso % (Auto) 0.5 Neut # (Auto) 18.7 H Lymph # (Auto) 1.7 Rankin # (Auto) 1.1 H Eos # (Auto) 0.1 Baso # (Auto) 0.1 Neutrophils % (Manual) 83 H Lymphocytes % (Manual) 10 L Monocytes % (Manual) 7 Platelet Estimate Normal Large Platelets Present Hypochromasia (manual) Slight Anisocytosis (manual) Slight Ovalocytes Moderate PT INR APTT pCO2 pO2 37 HCO3 ABG pH ABG Total CO2 ABG O2 Saturation ABG O2 Content ABG Base Excess ABG Hemoglobin ABG Carboxyhemoglobin POC ABG HHb (Measured) ABG Methemoglobin ABG O2 Capacity Dorian Test VBG pH 7.07 L* VBG pCO2 26 L VBG HCO3 6.9 VBG Total CO2 8.3 L VBG O2 Sat (Calc) 65.4 H VBG Base Excess -21.3 L VBG Potassium 3.7 A-a O2 Difference Hgb O2 Saturation Sodium 128.0 L Chloride 104.0 Glucose 159 H Lactate 1.2 FiO2 21.0 Crit Value Called To Maurice berry md Crit Value Called By 6075 Crit Value Read Back Y Blood Gas Notified Time 1716 Potassium Carbon Dioxide Anion Gap BUN Creatinine Est GFR ( Amer) Est GFR (Non-Af Amer) POC Glucose (mg/dL) 153 H Random Glucose Calcium Phosphorus Magnesium Total Bilirubin AST ALT Alkaline Phosphatase Troponin I Total Protein Albumin Globulin Albumin/Globulin Ratio Venous Blood Potassium 3.7 Random Vancomycin 12/13/18 12/13/18 12/13/18 17:15 17:15 22:58 WBC RBC Hgb Hct MCV MCH MCHC RDW Plt Count MPV Neut % (Auto) Lymph % (Auto) Rankin % (Auto) Eos % (Auto) Baso % (Auto) Neut # (Auto) Lymph # (Auto) Rankin # (Auto) Eos # (Auto) Baso # (Auto) Neutrophils % (Manual) Lymphocytes % (Manual) Monocytes % (Manual) Platelet Estimate Large Platelets Hypochromasia (manual) Anisocytosis (manual) Ovalocytes PT 18.1 H INR 1.6 APTT 39.7 H pCO2 pO2 HCO3 ABG pH ABG Total CO2 ABG O2 Saturation ABG O2 Content ABG Base Excess ABG Hemoglobin ABG Carboxyhemoglobin POC ABG HHb (Measured) ABG Methemoglobin ABG O2 Capacity Dorian Test VBG pH VBG pCO2 VBG HCO3 VBG Total CO2 VBG O2 Sat (Calc) VBG Base Excess VBG Potassium A-a O2 Difference Hgb O2 Saturation Sodium 132 Chloride 107 Glucose Lactate FiO2 Crit Value Called To Crit Value Called By Crit Value Read Back Blood Gas Notified Time Potassium 4.0 Carbon Dioxide 8 L* D Anion Gap 21 H BUN 51 H Creatinine 11.5 H* D Est GFR ( Amer) 6 Est GFR (Non-Af Amer) 5 POC Glucose (mg/dL) 166 H Random Glucose 153 H Calcium 9.1 Phosphorus 7.2 H Magnesium 1.3 L Total Bilirubin 0.3 AST 26 ALT 24 Alkaline Phosphatase 132 H D Troponin I < 0.0120 Total Protein 7.1 Albumin 3.1 L Globulin 4.0 H Albumin/Globulin Ratio 0.8 L Venous Blood Potassium Random Vancomycin 12/14/18 12/14/18 12/14/18 05:25 05:30 05:30 WBC 20.4 H RBC 3.93 L Hgb 9.0 L Hct 30.2 L MCV 76.9 L MCH 22.9 L MCHC 29.8 L RDW 20.1 H Plt Count 388 MPV Neut % (Auto) Lymph % (Auto) Rankin % (Auto) Eos % (Auto) Baso % (Auto) Neut # (Auto) Lymph # (Auto) Rankin # (Auto) Eos # (Auto) Baso # (Auto) Neutrophils % (Manual) Lymphocytes % (Manual) Monocytes % (Manual) Platelet Estimate Large Platelets Hypochromasia (manual) Anisocytosis (manual) Ovalocytes PT INR APTT pCO2 pO2 HCO3 ABG pH ABG Total CO2 ABG O2 Saturation ABG O2 Content ABG Base Excess ABG Hemoglobin ABG Carboxyhemoglobin POC ABG HHb (Measured) ABG Methemoglobin ABG O2 Capacity Dorian Test VBG pH VBG pCO2 VBG HCO3 VBG Total CO2 VBG O2 Sat (Calc) VBG Base Excess VBG Potassium A-a O2 Difference Hgb O2 Saturation Sodium 134 Chloride 106 Glucose Lactate FiO2 Crit Value Called To Crit Value Called By Crit Value Read Back Blood Gas Notified Time Potassium 3.4 L Carbon Dioxide 8 L* Anion Gap 23 H BUN 47 H Creatinine 10.4 H* Est GFR ( Amer) 6 Est GFR (Non-Af Amer) 5 POC Glucose (mg/dL) 128 H Random Glucose 149 H Calcium 8.3 L Phosphorus Magnesium Total Bilirubin AST ALT Alkaline Phosphatase Troponin I Total Protein Albumin Globulin Albumin/Globulin Ratio Venous Blood Potassium Random Vancomycin 12/14/18 12/14/18 12/14/18 05:30 09:40 10:59 WBC RBC Hgb Hct MCV MCH MCHC RDW Plt Count MPV Neut % (Auto) Lymph % (Auto) Rankin % (Auto) Eos % (Auto) Baso % (Auto) Neut # (Auto) Lymph # (Auto) Rankin # (Auto) Eos # (Auto) Baso # (Auto) Neutrophils % (Manual) Lymphocytes % (Manual) Monocytes % (Manual) Platelet Estimate Large Platelets Hypochromasia (manual) Anisocytosis (manual) Ovalocytes PT INR APTT pCO2 18 L* pO2 50 L HCO3 6.4 L* ABG pH 7.06 L* ABG Total CO2 5.7 L ABG O2 Saturation 83.8 L ABG O2 Content 11.4 L ABG Base Excess -23.4 L ABG Hemoglobin 9.9 L ABG Carboxyhemoglobin 1.3 POC ABG HHb (Measured) 15.8 H ABG Methemoglobin 1.0 ABG O2 Capacity 13.6 L Dorian Test Yes VBG pH VBG pCO2 VBG HCO3 VBG Total CO2 VBG O2 Sat (Calc) VBG Base Excess VBG Potassium A-a O2 Difference 77.0 Hgb O2 Saturation 82.0 L Sodium Chloride Glucose Lactate FiO2 21.0 Crit Value Called To Severino angulo Crit Value Called By Rt Crit Value Read Back Y Blood Gas Notified Time 950 Potassium Carbon Dioxide Anion Gap BUN Creatinine Est GFR ( Amer) Est GFR (Non-Af Amer) POC Glucose (mg/dL) 159 H Random Glucose Calcium Phosphorus Magnesium Total Bilirubin AST ALT Alkaline Phosphatase Troponin I Total Protein Albumin Globulin Albumin/Globulin Ratio Venous Blood Potassium Random Vancomycin 7.0 Assessment & Plan - Assessment and Plan (Free Text) Plan: as above, cont fluid resuscitation
[2018-12-14] MEDS: Pantoprazole 40 MG in Sodium Chloride 0.9% 100 ML IVPB SCH ×4 (05:20→21:45)
[2018-12-14] MEDS ORDERED: Lactated Ringer's 1,000 ML IV SCH (05:30)
[2018-12-14 07:10] LABS: CALCIUM 8.3 mg/dL (8.4-10.2)
[2018-12-14] MEDS: Insulin Lispro (humaLOG) 100 Units/ml Inj SC SCH ×4 (07:20→21:50)
[2018-12-14 08:15] LABS: MEAN CELL VOLUME 76.9 fl (80.0-94.0); MEAN CORPUSCULAR HEMOGLOBIN 22.9 pg (27.0-31.0); MEAN CORPUSCULAR HGB CONC 29.8 g/dL (33.0-37.0); RBC 3.93 Mil/uL (4.40-5.90); RED CELL DISTRIBUTION WIDTH 20.1 % (11.5-14.5); WHITE BLOOD COUNT 20.4 K/uL (4.8-10.8)
[2018-12-14] MEDS ORDERED: Ciprofloxacin 200mg/100ml D5W 100 ML IVPB SCH (09:00)
[2018-12-14] MEDS ORDERED: Pantoprazole 40 mg EC Tab PO SCH (09:00)
[2018-12-14] MEDS: Multivitamin Vitamin B Complex (Nephro-Vite) Tab PO SCH (09:07)
[2018-12-14 09:51] LABS: ABG ALLEN TEST YES; ARTERIAL BLOOD GAS HCO3 6.4 mmol/L (21-28); ARTERIAL BLOOD GAS HEMOGLOBIN 9.9 g/dL (11.7-17.4); ARTERIAL BLOOD GAS O2 CAPACITY 13.6 mL/dL (16-24); ARTERIAL BLOOD GAS O2 CONTENT 11.4 ML/dL (15-23); ARTERIAL BLOOD GAS O2 SAT 83.8 % (95-98); ARTERIAL BLOOD GAS PCO2 18 mm/Hg (35-45); ARTERIAL BLOOD GAS PH 7.06 (7.35-7.45); ARTERIAL BLOOD GAS PO2 50 mm/Hg (80-100); ARTERIAL BLOOD GAS TCO2 5.7 mmol/L (22-28)
[2018-12-14] MEDS ORDERED: Magnesium Sulfate 2 gm/50 ml 2 GM/50 ML BAG IVPB ONE (10:30)
--- NOTE | 2018-12-14 10:59 | RAD ---
Date of service: 12/13/2018 HISTORY: Sepsis Patient COMPARISON: Portable chest 11/12/2018. FINDINGS: LUNGS: Tunneled right central venous dialysis catheter unchanged in position. Improved inspiratory volume bilaterally. No acute infiltrate right chest. Borderline inferior left basilar patchy density. Patient appears to been extubated with nasogastric tube now removed as well. PLEURA: No significant pleural effusion identified, no pneumothorax apparent. CARDIOVASCULAR: No aortic atherosclerotic calcification present. Normal cardiac size. No pulmonary vascular congestion. OSSEOUS STRUCTURES: No significant abnormalities. VISUALIZED UPPER ABDOMEN: Normal. OTHER FINDINGS: None. IMPRESSION: Limited patchy residual left base in the interval. Improved history volumes bilaterally. Status post extubation and nasogastric tube removal.
[2018-12-14] MEDS: Sodium Bicarbonate 8.4% 150 MEQ in Dextrose 5% In Water 1,000 ML IV SCH ×2 (11:43→21:36)
[2018-12-14] MEDS: Fluconazole IV 100mg/50 ml NS 50 ML IVPB SCH (11:48)
--- NOTE | 2018-12-14 14:40 | CT ---
Date of service: 12/13/2018 PROCEDURE: CT Abdomen and Pelvis without intravenous contrast HISTORY: R/O stone COMPARISON: Abdomen pelvis CT with contrast 12/05/2018. TECHNIQUE: Helical CT of the abdomen and pelvis was performed without oral or intravenous contrast as per referring physician request. Coronal and sagittal reformats were generated. Contrast dose: None Radiation dose: Total exam DLP = 869.21 mGy-cm. This CT exam was performed using one or more of the following dose reduction techniques: Automated exposure control, adjustment of the mA and/or kV according to patient size, and/or use of iterative reconstruction technique. FINDINGS: Images through lung bases appear clear. No definite radiodense urolithiasis or hydronephrosis is appreciated at either kidney. No definite perinephric reaction either. The bilateral kidneys appear normal in size and overall density. Ureters also appear normal in caliber. Urinary bladder is decompressed but smooth and thin walled. No radiodense urolithiasis in the lumen. Further evaluation remaining abdominal pelvic viscera is limited due to lack of oral and intravenous contrast agents. There is no suspicious lesion appreciated in the liver or the spleen. No gross intrahepatic biliary dilatation identified. The stomach is distended with retained air and food. No pertinent pancreatic findings. Gallbladder is mildly distended but otherwise unremarkable appearing. The bilateral adrenal glands appear normal. The bowel does not appear obstructed and there is liquified fecal material identified throughout the large bowel. Postoperative changes again seen at a jejunal small bowel segment at the central lower abdomen. There is a collection of fluid seen at the right parasagittal central abdomen identified in images 109 through 119 series 3. This may be extraluminal and within the peritoneal space. Confirmation recommended by contrast abdomen CT to exclude potential abscess here. The appendix is identified. There are no suspicious adnexal findings. No suspicious lymphadenopathy in the abdomen or pelvis. No fracture or destructive lytic or blastic bony changes identified. OTHER FINDINGS: None. IMPRESSION: Potential peritoneal fluid collection 6.6 x 3.2 cm at the right parasagittal/central abdomen suspicious for abscess. Confirmation by oral contrast abdomen CT is advised as this was not previously identified in prior CT 12/05/2018. No free intra peritoneal gas collection identified. Liquid fecal material seen throughout the colon moderately with distention of the stomach by gas and a bit of retained food. Other lesser findings as discussed above. Concordant preliminary report from Gina, 12/13/2018, 9:29 p.m..
[2018-12-14] MEDS ORDERED: methylPREDNISolone 40 MG in Sodium Chloride 0.9% 50 ML IVPB SCH (15:15)
--- NOTE | 2018-12-14 15:34 | CP.PCM.PN ---
Subjective - Date & Time of Evaluation Date of Evaluation: 12/14/18 Time of Evaluation: 15:30 - Subjective Subjective: ID NOTE(INITIAL CONSULT NOTE) PATIENT KNOWN TO ME FROM PREVIOUS ADMISSIONS HAD RUPTURED APPENDIX C ABSCESS AND SURGICAL INCISION INFECTION HAS RRECEIVED ONGOING ANTIBIOTICS c HD BUT RETURNS AGAIN c nausea ,vomiting ,leukocytosis ,and intra abdominal abscess noted on CT Scan. PREVIOUSLY GREW PTOTEUS IN WOUND CULTURE AND STAPH AUREUS IN BLOOD CULTURE HAVE ORDERED VANCOMYCIN POST HD AND WILL ORDER AMIKACIN POST HD PENDINGhAVE AMIKACIN LEVELS IN AM. MEROPRNEM ORDERED c solumedrol /benadryl to be given prior to dose in view of PCN allergy. PROTEUS GROWN IN CULTURES IS QUITE RESISTANT AND POSSIBLY HAS DEVELOPED RESISTANCE TO AMIKACIN,THEREFORE RX c MEROPENEM. HAVE DISCUSSED c NURSING ,PHARMACY ,AND [employer] Objective - Vital Signs/Intake and Output Vital Signs (last 24 hours): Temp Pulse Resp BP Pulse Ox 98.5 F 103 H 15 80/31 L 95 12/14/18 12:00 12/14/18 13:00 12/14/18 13:00 12/14/18 13:00 12/14/18 13:00 Intake and Output: 12/14/18 12/14/18 06:59 18:59 Intake Total 1379 970 Output Total 600 Balance 779 970 - Medications Medications: Current Medications Acetaminophen (Tylenol 325mg Tab) 650 mg PO Q6 PRN PRN Reason: pain (1-10) Last Admin: 12/14/18 01:18 Dose: 650 mg Acetaminophen (Tylenol 325mg Tab) 650 mg PO Q6H PRN PRN Reason: Fever >100.4 F Allopurinol (Zyloprim) 100 mg PO DAILY [facility] Last Admin: 12/14/18 09:08 Dose: Not Given Atorvastatin Calcium (Lipitor) 10 mg PO HS [facility] Last Admin: 12/13/18 23:30 Dose: 10 mg Calcitriol (Rocaltrol) 0.25 mcg PO DAILY [facility] Diphenhydramine HCl (Benadryl) 50 mg IVP Q24H PRN PRN Reason: Allergy symptoms Epoetin Mitchell (Procrit) 10,000 unit IV MWF [facility] Folic Acid (Folic Acid) 1 mg PO DAILY [facility] Last Admin: 12/14/18 09:07 Dose: Not Given Gabapentin (Neurontin) 100 mg PO TID [facility] Last Admin: 12/14/18 13:10 Dose: Not Given Metronidazole 250 mg/ (Miscellaneous) 50 mls @ 50 mls/hr IVPB Q8 [facility]; Protocol Last Admin: 12/14/18 09:07 Dose: 50 mls/hr Norepinephrine Bitartrate 4 mg (/ Dextrose) 254 mls @ 9.53 mls/hr IV .Q24H [facility]; Protocol Last Titration: 12/14/18 12:08 Dose: 10 mcg/min, 38.1 mls/hr Pantoprazole Sodium 40 mg/ (Sodium Chloride) 100 mls @ 20 mls/hr IVPB Q5H [facility] Last Admin: 12/14/18 09:06 Dose: 20 mls/hr Sodium Bicarbonate 150 meq/ (Dextrose) 1,150 mls @ 125 mls/hr IV .Q9H12M [facility] Stop: 12/15/18 18:00 Last Admin: 12/14/18 11:43 Dose: 125 mls/hr Fluconazole (Diflucan Iv 100 Mg/50 Ml Ns) 50 mls @ 50 mls/hr IVPB DAILY [facility]; Protocol Last Admin: 12/14/18 11:48 Dose: 50 mls/hr Vancomycin HCl 1 gm/ Sodium (Chloride) 250 mls @ 125 mls/hr IVPB MWF [facility]; Prot ocol Meropenem 500 mg/ Sodium (Chloride) 100 mls @ 100 mls/hr IVPB Q24H [facility]; Protocol Methylprednisolone 40 mg/ (Sodium Chloride) 50 mls @ 100 mls/hr IVPB DAILY [facility] Insulin Human Lispro (Humalog) 0 units SC Q6H [facility]; Protocol Last Admin: 12/14/18 11:01 Dose: 1 unit Lactic Acid (Lac-Hydrin 12% Lotion (225 G)) 1 applic TOP DAILY [facility] Last Admin: 12/14/18 11:01 Dose: 1 applic Metoclopramide HCl (Reglan) 10 mg IVP Q6 PRN PRN Reason: Nausea/Vomiting Last Admin: 12/14/18 05:00 Dose: 10 mg Ondansetron HCl (Zofran Inj) 4 mg IVP Q6H PRN PRN Reason: Nausea/Vomiting Last Admin: 12/14/18 12:30 Dose: 4 mg Vitamin B Complex/Vit C/Folic Acid (Nephro-Elsa) 1 tab PO DAILY [facility] Last Admin: 12/14/18 09:07 Dose: Not Given - Labs Labs: 12/14/18 05:30 12/14/18 05:30 PT 18.1 Seconds (9.8-13.1) H 12/13/18 17:15 INR 1.6 12/13/18 17:15 APTT 39.7 Seconds (25.6-37.1) H 12/13/18 17:15
[2018-12-14] MEDS: DiphenhydrAMINE 50 mg/ml Inj IVP PRN (16:14)
[2018-12-14] MEDS: Meropenem 500 MG in Sodium Chloride 0.9% 100 ML IVPB SCH (17:10)
--- NOTE | 2018-12-14 19:39 | CP.PCM.HP ---
History of Present Illness - History of Present Illness History of Present Illness: This is a 47 y/o male admitted to ICU due to severe hypotension ane elevated WBC, He lives alone and claims that since a week ago he has been having non bloddy diarrhea and felt very weak and couldnt tolerate food. Symptoms progressed and called EMT where he was found to be very hypotensive, He was recently admitted for abscess of the abdominal wound. He had a surgery for appendiceal abscess about a month ago. He has a hx of HTN, DM 2 CKD 5 on hemodialysis which he missed in the past week. Initial labs showed elevated WBC 21.7 K and acidosis on ABG's. CT scan of the abdomen showed possible 6.6 x 3.2 abscess collection at the r ight parasagittal and central area . He was started on IV fluids and Levophed and currently BP is 100 to 110 systolic. Present on Admission - Present on Admission Any Indicators Present on Admission: No History of DVT/PE: No History of Uncontrolled Diabetes: Yes Urinary Catheter: No Decubitus Ulcer Present: No Review of Systems - Constitutional Constitutional: Chills, Fever Past Patient History - Infectious Disease Hx of Infectious Diseases: None - Past Medical History & Family History Past Medical History?: Yes - Past Social History Smoking Status: Former Smoker Alcohol: None Drugs: Denies - CARDIAC Hx Congestive Heart Failure: No Hx Hypercholesterolemia: Yes Hx Hypertension: Yes - PULMONARY Hx Chronic Obstructive Pulmonary Disease (COPD): No - NEUROLOGICAL Hx Neurological Disorder: Yes HX Cerebrovascular Accident: Yes - HEENT Hx HEENT Problems: No - RENAL Hx Chronic Kidney Disease: Yes - ENDOCRINE/METABOLIC Hx Hypothyroidism: No - HEMATOLOGICAL/ONCOLOGICAL Hx Anemia: Yes Hx Human Immunodeficiency Virus (HIV): No - INTEGUMENTARY Hx Dermatological Problems: No - MUSCULOSKELETAL/RHEUMATOLOGICAL Hx Arthritis: No Hx Rheumatoid Arthritis: No - GASTROINTESTINAL Hx Gastritis: Yes - GENITOURINARY/GYNECOLOGICAL Hx Genitourinary Disorders: No - PSYCHIATRIC Hx Psychophysiologic Disorder: No Hx Substance Use: No - SURGICAL HISTORY Hx Surgeries: Yes Hx Amputation: Yes (tma right foot) Other/Comment: left suboccipital craniotomy and right ankle surgery - ANESTHESIA Hx Anesthesia: Yes Hx Anesthesia Reactions: No Hx Malignant Hyperthermia: No Meds Allergies/Adverse Reactions: Allergies Allergy/AdvReac Type Severity Reaction Status Date / Time Penicillins Allergy RASH Verified 12/13/18 16:48 Physical Exam - Head Exam Head Exam: NORMAL INSPECTION - Eye Exam Eye Exam: Normal appearance - ENT Exam ENT Exam: Mucous Membranes Moist - Respiratory Exam Respiratory Exam: Decreased Breath Sounds, NORMAL BREATHING PATTERN - Cardiovascular Exam Cardiovascular Exam: REGULAR RHYTHM - GI/Abdominal Exam GI & Abdominal Exam: Diminished Bowel Sounds Additional comments: noted purulent material from the abd wound Results - Vital Signs Recent Vital Signs: Last Vital Signs Temp 98.1 F 12/14/18 16:00 Pulse 102 H 12/14/18 18:00 Resp 10 L 12/14/18 18:00 BP 115/39 L 12/14/18 18:00 Pulse Ox 100 12/14/18 18:00 - Labs Result Diagrams: 12/14/18 05:30 12/14/18 18:30 Labs: Laboratory Results - last 24 hr 12/13/18 12/14/18 12/14/18 22:58 05:25 05:30 WBC 20.4 H RBC 3.93 L Hgb 9.0 L Hct 30.2 L MCV 76.9 L MCH 22.9 L MCHC 29.8 L RDW 20.1 H Plt Count 388 pCO2 pO2 HCO3 ABG pH ABG Total CO2 ABG O2 Saturation ABG O2 Content ABG Base Excess ABG Hemoglobin ABG Carboxyhemoglobin POC ABG HHb (Measured) ABG Methemoglobin ABG O2 Capacity Dorian Test A-a O2 Difference Hgb O2 Saturation FiO2 Crit Value Called To Crit Value Called By Crit Value Read Back Blood Gas Notified Time Sodium Potassium Chloride Carbon Dioxide Anion Gap BUN Creatinine Est GFR ( Amer) Est GFR (Non-Af Amer) POC Glucose (mg/dL) 166 H 128 H Random Glucose Calcium Random Vancomycin 12/14/18 12/14/18 12/14/18 05:30 05:30 09:40 WBC RBC Hgb Hct MCV MCH MCHC RDW Plt Count pCO2 18 L* pO2 50 L HCO3 6.4 L* ABG pH 7.06 L* ABG Total CO2 5.7 L ABG O2 Saturation 83.8 L ABG O2 Content 11.4 L ABG Base Excess -23.4 L ABG Hemoglobin 9.9 L ABG Carboxyhemoglobin 1.3 POC ABG HHb (Measured) 15.8 H ABG Methemoglobin 1.0 ABG O2 Capacity 13.6 L Dorian Test Yes A-a O2 Difference 77.0 Hgb O2 Saturation 82.0 L FiO2 21.0 Crit Value Called To Rn adele Crit Value Called By Rt Crit Value Read Back Y Blood Gas Notified Time 950 Sodium 134 Potassium 3.4 L Chloride 106 Carbon Dioxide 8 L* Anion Gap 23 H BUN 47 H Creatinine 10.4 H* Est GFR ( Amer) 6 Est GFR (Non-Af Amer) 5 POC Glucose (mg/dL) Random Glucose 149 H Calcium 8.3 L Random Vancomycin 7.0 12/14/18 12/14/18 12/14/18 10:59 16:24 18:30 WBC RBC Hgb Hct MCV MCH MCHC RDW Plt Count pCO2 pO2 HCO3 ABG pH ABG Total CO2 ABG O2 Saturation ABG O2 Content ABG Base Excess ABG Hemoglobin ABG Carboxyhemoglobin POC ABG HHb (Measured) ABG Methemoglobin ABG O2 Capacity Dorian Test A-a O2 Difference Hgb O2 Saturation FiO2 Crit Value Called To Crit Value Called By Crit Value Read Back Blood Gas Notified Time Sodium 134 Potassium 3.7 Chloride 106 Carbon Dioxide 8 L* Anion Gap 24 H BUN 50 H Creatinine 10.2 H* Est GFR ( Amer) 7 Est GFR (Non-Af Amer) 5 POC Glucose (mg/dL) 159 H 255 H Random Glucose 175 H Calcium 8.0 L Random Vancomycin Assessment & Plan (1) Sepsis Status: Acute (2) Severe dehydration Status: Acute (3) Abdominal wall abscess Status: Acute (4) Diabetes mellitus type 2 in obese Status: Chronic (5) ESRD (end stage renal disease) on dialysis Status: Chronic Priority: High - Assessment and Plan (Free Text) Plan: Infxs disease consult Hydration ICU levophed IV antibiotics as per ID Monitor labs, Renal eval.
[2018-12-14] MEDS ORDERED: Sodium Bicarbonate (8.4%) 50 Meq Syringe IVP ONE ×2 (19:56→21:30)
[2018-12-14] MEDS ORDERED: Sodium Bicarbonate 7.5% (0.9 MEQ/ML) 50ML INJ IV ONE (20:30)
--- NOTE | 2018-12-14 22:46 | CARD ---
APPROVED REPORT Date of service: 12/13/2018 EKG Measurement Heart [id number] <Conclusion> Normal sinus rhythm Prolonged QT Abnormal ECG
[2018-12-15] MEDS: metroNIDAZOLE 500mg/100ml NS 250 MG in Premixed IV 1 EA IVPB SCH ×3 (01:00→16:31)
[2018-12-15] MEDS: Pantoprazole 40 MG in Sodium Chloride 0.9% 100 ML IVPB SCH ×5 (04:00→21:30)
--- NOTE | 2018-12-15 04:31 | PN ---
DATE: 12/14/2018 CRITICAL CARE PROGRESS NOTE LOCATION: The patient in ICU, bed 426. TIME SPENT: Thirty five minutes. The patient is seen and evaluated at the bedside. Past medical, surgical, family, and social history reviewed. SUBJECTIVE: A 47-year-old male with history significant for diabetes mellitus type 2; hypertension; peripheral vascular disease; status post CVA; and end-stage renal disease, on hemodialysis three times a week. The patient was recently admitted to [facility] on 11/11/2018 and underwent exploratory laparotomy for perforated viscus and ischemic bowel. The patient was subsequently discharged and being on antibiotics with hemodialysis, re-admitted through emergency room, complaining of nausea. No vomiting. Some nonbloody diarrhea, abdominal pain, gradually started and getting worse over the last two to three days. Missed the last hemodialysis. CT abdomen and pelvis showed 6 x 4 cm intra-abdominal collection in the right lower quadrant, normal appendix, possible enterocolitis. Admitted for further evaluation. Overnight, remains afebrile, normotensive, tachycardic, on pressors. Seen by surgery consult, recommended for evacuation of abdominal collection by Interventional Radiology. Awaiting for the procedure. PHYSICAL EXAMINATION: VITAL SIGNS: Temperature 98.4; heart rate 106 to 120 and regular; blood pressure 68/43 to 106/54, on Levophed; respiratory rate 20, thoracoabdominal. Intake 1379, output 6000, positive balance of . Weight 238 pounds. HEAD, EYES, EARS, NOSE, AND THROAT: Pupils reactive. Conjunctivae pink. Sclerae white. NECK: Supple. HEART: Rhythm regular. S1 and S2 normal. LUNGS: Bilateral breath sounds. Clear to auscultation. ABDOMEN: Bowel sounds present. Soft, mild tenderness in the right lower quadrant. No rebound tenderness. EXTREMITIES: Right lower extremity partial foot amputation. NEUROLOGIC: Oriented to name, place and time. No cranial nerve deficit. No motor deficit. CURRENT MEDICATIONS: Tylenol 650 mg every 6 hours p.r.n., Zyloprim 100 mg p.o. daily, Lipitor 10 mg p.o. at bedtime, calcitriol 0.25 mcg p.o. three times a day, folic acid 1 mg p.o. daily, Neurontin 100 mg p.o. three times daily, Accu-Chek with regular insulin coverage, lactic acid 12% lotion one application topically daily, Reglan 10 mg p.o. every 6 hours p.r.n., metronidazole 250 mg IV every 8 hours, Zofran 4 mg IV every 6 hours p.r.n., Protonix 40 mg IV daily, Nephro-Elsa one tablet daily, aztreonam 2 g x1, ciprofloxacin 400 mg at 200 mg per hour. LABORATORY DATA: WBC 20.4, hemoglobin 9, hematocrit 30.2, and platelet count of 388. PT 18.1, INR 1.6, PTT 39.7. Lactate 1.2. SMA-7: Sodium 134, potassium 3.4, chloride 106, CO2 of 23, blood urea nitrogen 47, creatinine 10.4, random glucose 141, calcium 8.3. Toxicology, random vancomycin level 7. IMPRESSION AND PLAN: 1. Neurologic: Alert and awake. Follows commands appropriate. 2. Cardiac: Hypertension, probably related to sepsis. Continue pressor support to maintain a systolic pressure of 100/MAP 65. On antibiotics stream line based on the pathology. Discussed with Infectious Disease. We will add coverage for fungal infection coverage. 3. Pulmonary: No respiratory distress. Chest x-ray shows mild pulmonary vascular congestion. Missed two dialysis. 4. Gastrointestinal: Liver enzymes are normal. 5. Hematology: Leukocytosis secondary to intra-abdominal collection/abscess, anemia of chronic disease, normal platelet count. 6. Renal: End-stage renal disease, on hemodialysis, missed two dialysis. Nephrology followup regarding ultrafiltration. Continue pressor support. 7. Infectious: Status post exploratory laparotomy and resection from a small bowel. Repeat CT shows collection in the right lower quadrant, probably suggesting intra-abdominal abscess. Infectious Disease recommendation for optimizing the antibiotic, currently on Cipro and Flagyl. Consider adding antifungal coverage. Deep vein thrombosis prophylaxis with mechanical device. Hold anticoagulation. Awaiting for the procedure. Pablo Munoz MD
[2018-12-15] MEDS: Insulin Lispro (humaLOG) 100 Units/ml Inj SC SCH ×4 (04:40→21:30)
[2018-12-15 05:40] LABS: BASO % 0.2 % (0.0-2.0); HEMOGLOBIN 8.1 g/dL (12.0-18.0); LYMPH # 0.6 K/uL (1.0-4.3); LYMPH % 4.7 % (20.0-40.0); MEAN CELL VOLUME 74.3 fl (80.0-94.0); MEAN CORPUSCULAR HEMOGLOBIN 23.6 pg (27.0-31.0); MEAN CORPUSCULAR HGB CONC 31.8 g/dL (33.0-37.0); MEAN PLATELET VOLUME 6.9 fl (7.2-11.7); MONO # 0.3 K/uL (0.0-0.8); MONO % 2.1 % (0.0-10.0); NEUT # 12.5 K/uL (1.8-7.0); PLATELET COUNT 351 K/uL (130-400); RBC 3.44 Mil/uL (4.40-5.90); RED CELL DISTRIBUTION WIDTH 19.6 % (11.5-14.5); WHITE BLOOD COUNT 13.4 K/uL (4.8-10.8)
[2018-12-15 05:58] LABS: CALCIUM 7.9 mg/dL (8.4-10.2)
[2018-12-15 07:20] LABS: LYMPHOCYTE 5 % (20-50); MONOCYTE 3 % (0-10); NEUTROPHIL 92 % (42-75); PLATELET ESTIMATE NORMAL (NORMAL); TOTAL CELLS COUNTED 100
[2018-12-15 07:21] LABS: ANISOCYTOSIS SLIGHT; LARGE PLATELETS PRESENT; OVALOCYTES SLIGHT
--- NOTE | 2018-12-15 07:55 | CP.PCM.PN ---
<Henry Hodges - Last Filed: 12/15/18 07:53> Subjective - Date & Time of Evaluation Date of Evaluation: 12/15/18 Time of Evaluation: 07:53 - Subjective Subjective: SURGERY NOTE FOR DR HANDLEY 47M seen and examined at bedside. Patient denies abdominal pain, complains of nausea and spit up, no fevers. Objective - Vital Signs/Intake and Output Vital Signs (last 24 hours): Temp Pulse Resp BP Pulse Ox 98.2 F 102 H 12 110/75 100 12/15/18 04:00 12/15/18 06:00 12/15/18 06:00 12/15/18 06:00 12/15/18 06:00 Intake and Output: 12/15/18 12/15/18 06:59 18:59 Intake Total 1280 Balance 1280 - Medications Medications: Current Medications Acetaminophen (Tylenol 325mg Tab) 650 mg PO Q6 PRN PRN Reason: pain (1-10) Last Admin: 12/14/18 01:18 Dose: 650 mg Acetaminophen (Tylenol 325mg Tab) 650 mg PO Q6H PRN PRN Reason: Fever >100.4 F Allopurinol (Zyloprim) 100 mg PO DAILY [facility] Last Admin: 12/14/18 09:08 Dose: Not Given Atorvastatin Calcium (Lipitor) 10 mg PO HS [facility] Last Admin: 12/15/18 04:29 Dose: Not Given Calcitriol (Rocaltrol) 0.25 mcg PO DAILY [facility] Diphenhydramine HCl (Benadryl) 50 mg IVP Q24H PRN PRN Reason: Allergy symptoms Last Admin: 12/14/18 16:14 Dose: 50 mg Epoetin Mitchell (Procrit) 10,000 unit IV MWF [facility] Folic Acid (Folic Acid) 1 mg PO DAILY [facility] Last Admin: 12/14/18 09:07 Dose: Not Given Gabapentin (Neurontin) 100 mg PO TID [facility] Last Admin: 12/14/18 17:16 Dose: Not Given Metronidazole 250 mg/ (Miscellaneous) 50 mls @ 50 mls/hr IVPB Q8 [facility]; Protocol Last Admin: 12/15/18 01:00 Dose: 50 mls/hr Pantoprazole Sodium 40 mg/ (Sodium Chloride) 100 mls @ 20 mls/hr IVPB Q5H [facility] Last Admin: 12/15/18 04:00 Dose: 20 mls/hr Sodium Bicarbonate 150 meq/ (Dextrose) 1,150 mls @ 125 mls/hr IV .Q9H12M [facility] Stop: 12/15/18 18:00 Last Admin: 12/14/18 21:36 Dose: 125 mls/hr Fluconazole (Diflucan Iv 100 Mg/50 Ml Ns) 50 mls @ 50 mls/hr IVPB DAILY [facility]; Protocol Last Admin: 12/14/18 11:48 Dose: 50 mls/hr Vancomycin HCl 1 gm/ Sodium (Chloride) 250 mls @ 125 mls/hr IVPB MWF [facility]; Protocol Meropenem 500 mg/ Sodium (Chloride) 100 mls @ 100 mls/hr IVPB Q24H [facility]; Protocol Last Admin: 12/14/18 17:10 Dose: 100 mls/hr Methylprednisolone 40 mg/ (Sodium Chloride) 50 mls @ 100 mls/hr IVPB DAILY [facility] Last Admin: 12/14/18 16:15 Dose: 100 mls/hr Insulin Human Lispro (Humalog) 0 units SC Q6H [facility]; Protocol Last Admin: 12/15/18 04:40 Dose: Not Given Lactic Acid (Lac-Hydrin 12% Lotion (225 G)) 1 applic TOP DAILY [facility] Last Admin: 12/14/18 11:01 Dose: 1 applic Metoclopramide HCl (Reglan) 10 mg IVP Q6 PRN PRN Reason: Nausea/Vomiting Last Admin: 12/14/18 05:00 Dose: 10 mg Ondansetron HCl (Zofran Inj) 4 mg IVP Q6H PRN PRN Reason: Nausea/Vomiting Last Admin: 12/14/18 12:30 Dose: 4 mg Vitamin B Complex/Vit C/Folic Acid (Nephro-Elsa) 1 tab PO DAILY [facility] Last Admin: 12/14/18 09:07 Dose: Not Given - Labs Labs: 12/15/18 04:20 12/15/18 04:20 PT 18.1 Seconds (9.8-13.1) H 12/13/18 17:15 INR 1.6 12/13/18 17:15 APTT 39.7 Seconds (25.6-37.1) H 12/13/18 17:15 - Constitutional Appears: Non-toxic, No Acute Distress - Respiratory Exam Respiratory Exam: Clear to Ausculation Bilateral, NORMAL BREATHING PATTERN - Cardiovascular Exam Cardiovascular Exam: REGULAR RHYTHM, +S1, +S2 - GI/Abdominal Exam GI & Abdominal Exam: Soft. absent: Distended, Firm, Guarding, Rigid, Tenderness, Rebound Additional comments: midline incision with small openning with purulent drainage- packed - Neurological Exam Neurological Exam: Alert, Awake Assessment and Plan - Assessment and Plan (Free Text) Assessment: 47M with enteritis, abdominal abscess, and acidosis 2/2 multiple missed dialysis Plan: - continue IVF - continue Antibiotics - Patient will require dialysis Further recs discuss with Dr. Saroj Hodges, PGY3 <Dylan Cormier - Last Filed: 12/15/18 11:20> Subjective - Date & Time of Evaluation Time of Evaluation: 09:00 - Subjective Subjective: Patient was seen and examined at the bedside. Agree with resident's note above. Denies any abdominal pain. Objective - Vital Signs/Intake and Output Vital Signs (last 24 hours): Temp Pulse Resp BP Pulse Ox 97.8 F 100 H 11 L 129/77 98 12/15/18 08:00 12/15/18 10:00 12/15/18 10:00 12/15/18 10:00 12/15/18 10:00 Intake and Output: 12/15/18 12/15/18 06:59 18:59 Intake Total 1280 300 Balance 1280 300 - Medications Medications: Current Medications Acetaminophen (Tylenol 325mg Tab) 650 mg PO Q6 PRN PRN Reason: pain (1-10) Last Admin: 12/14/18 01:18 Dose: 650 mg Acetaminophen (Tylenol 325mg Tab) 650 mg PO Q6H PRN PRN Reason: Fever >100.4 F Allopurinol (Zyloprim) 100 mg PO DAILY [facility] Last Admin: 12/14/18 09:08 Dose: Not Given Atorvastatin Calcium (Lipitor) 10 mg PO HS [facility] Last Admin: 12/15/18 04:29 Dose: Not Given Calcitriol (Rocaltrol) 0.25 mcg PO DAILY [facility] Last Admin: 12/15/18 08:02 Dose: Not Given Diphenhydramine HCl (Benadryl) 50 mg IVP Q24H PRN PRN Reason: Allergy symptoms Last Admin: 12/14/18 16:14 Dose: 50 mg Epoetin Mitchell (Procrit) 10,000 unit IV MWF [facility] Folic Acid (Folic Acid) 1 mg PO DAILY [facility] Last Admin: 12/15/18 08:02 Dose: Not Given Gabapentin (Neurontin) 100 mg PO TID [facility] Last Admin: 12/15/18 08:02 Dose: Not Given Metronidazole 250 mg/ (Miscellaneous) 50 mls @ 50 mls/hr IVPB Q8 [facility]; Protocol Last Admin: 12/15/18 08:03 Dose: 50 mls/hr Pantoprazole Sodium 40 mg/ (Sodium Chloride) 100 mls @ 20 mls/hr IVPB Q5H [facility] Last Admin: 12/15/18 07:59 Dose: 20 mls/hr Sodium Bicarbonate 150 meq/ (Dextrose) 1,150 mls @ 125 mls/hr IV .Q9H12M BASH[facility] Stop: 12/15/18 18:00 Last Admin: 12/15/18 07:57 Dose: 125 mls/hr Fluconazole (Diflucan Iv 100 Mg/50 Ml Ns) 50 mls @ 50 mls/hr IVPB DAILY [facility]; Protocol Last Admin: 12/15/18 08:03 Dose: 50 mls/hr Vancomycin HCl 1 gm/ Sodium (Chloride) 250 mls @ 125 mls/hr IVPB MWF [facility]; Protocol Meropenem 500 mg/ Sodium (Chloride) 100 mls @ 100 mls/hr IVPB Q24H [facility]; Protocol Last Admin: 12/14/18 17:10 Dose: 100 mls/hr Insulin Human Lispro (Humalog) 0 units SC Q6H [facility]; Protocol Last Admin: 12/15/18 04:40 Dose: Not Given Lactic Acid (Lac-Hydrin 12% Lotion (225 G)) 1 applic TOP DAILY [facility] Last Admin: 12/15/18 08:02 Dose: 1 applic Methylprednisolone (Solu-Medrol) 40 mg IVP DAILY [facility] Metoclopramide HCl (Reglan) 10 mg IVP Q6 PRN PRN Reason: Nausea/Vomiting Last Admin: 12/14/18 05:00 Dose: 10 mg Ondansetron HCl (Zofran Inj) 4 mg IVP Q6H PRN PRN Reason: Nausea/Vomiting Last Admin: 12/14/18 12:30 Dose: 4 mg Vitamin B Complex/Vit C/Folic Acid (Nephro-Elsa) 1 tab PO DAILY [facility] Last Admin: 12/15/18 08:02 Dose: Not Given - Labs Labs: 12/15/18 04:20 12/15/18 04:20 PT 18.1 Seconds (9.8-13.1) H 12/13/18 17:15 INR 1.6 12/13/18 17:15 APTT 39.7 Seconds (25.6-37.1) H 12/13/18 17:15 - GI/Abdominal Exam Additional comments: soft, NT, ND, BS+, no rebound, no guarding Assessment and Plan - Assessment and Plan (Free Text) Plan: - Start clear liquid diet - IV fluid hydration - Antibiotics - Repeat labs in am - No general surgery intervention at present time - Will follow
[2018-12-15] MEDS: Sodium Bicarbonate 8.4% 150 MEQ in Dextrose 5% In Water 1,000 ML IV SCH ×2 (07:57→23:00)
[2018-12-15] MEDS: Multivitamin Vitamin B Complex (Nephro-Vite) Tab PO SCH (08:02)
[2018-12-15] MEDS: Fluconazole IV 100mg/50 ml NS 50 ML IVPB SCH (08:03)
--- NOTE | 2018-12-15 09:25 | CP.PCM.CON ---
History of Present Illness - History of Present Illness History of Present Illness: 47yo M with PMHx of ESRD, CVA, HTN, DM, PVD and recent SB resection of approx 80% of Small Bowel due perforated viscous and ischemia. Here for evaluation of lower abdominal pain, nausea, diarrhea and weakness. Patient states that he has been feeling increasingly fatigued over the past week. Abd pain gradually started and has been getting worse over the same time period. Associated with nausea, no vomiting, some diarrhea, non-bloody. Patient is known to me with end-stage renal disease on maintenance hemodialysis 3 times a week and the patient is scheduled to have dialysis right now. PMH: ESRD, CVA, HTN, DM, PVD PSHx: SB resection for perforated viscous and ischemic bowel 11/11/18, R IJ permacath, R AVF, R TMA Family Hx: non-contributory Social hx: Admits to previous tobacco use, Denies ETOH, Denies illicit drugs Allergy: PCNs (rash, pruritis) Review of Systems - Constitutional Constitutional: Anorexia. absent: Night Sweats - EENT Eyes: absent: Exophthalmos - Cardiovascular Cardiovascular: absent: Acrocyanosis, Edema - Respiratory Respiratory: absent: Cough, Hemoptysis - Gastrointestinal Gastrointestinal: As Per HPI, Abdominal Pain, Nausea. absent: Coffee Ground Emesis - Genitourinary Genitourinary: absent: Dysuria - Musculoskeletal Musculoskeletal: Muscle Weakness. absent: Atrophy - Neurological Neurological: Confusion, Weakness. absent: Headaches - Endocrine Endocrine: Fatigue - Hematologic/Lymphatic Hematologic: absent: Easy Bleeding Past Patient History - Infectious Disease Hx of Infectious Diseases: None - Past Medical History & Family History Past Medical History?: Yes - Past Social History Smoking Status: Former Smoker Alcohol: None Drugs: Denies - CARDIAC Hx Congestive Heart Failure: No Hx Hypercholesterolemia: Yes Hx Hypertension: Yes - PULMONARY Hx Chronic Obstructive Pulmonary Disease (COPD): No - NEUROLOGICAL Hx Neurological Disorder: Yes HX Cerebrovascular Accident: Yes - HEENT Hx HEENT Problems: No - RENAL Hx Chronic Kidney Disease: Yes - ENDOCRINE/METABOLIC Hx Hypothyroidism: No - HEMATOLOGICAL/ONCOLOGICAL Hx Anemia: Yes Hx Human Immunodeficiency Virus (HIV): No - INTEGUMENTARY Hx Dermatological Problems: No - MUSCULOSKELETAL/RHEUMATOLOGICAL Hx Arthritis: No Hx Rheumatoid Arthritis: No - GASTROINTESTINAL Hx Gastritis: Yes - GENITOURINARY/GYNECOLOGICAL Hx Genitourinary Disorders: No - PSYCHIATRIC Hx Psychophysiologic Disorder: No Hx Substance Use: No - SURGICAL HISTORY Hx Surgeries: Yes Hx Amputation: Yes (tma right foot) Other/Comment: left suboccipital craniotomy and right ankle surgery - ANESTHESIA Hx Anesthesia: Yes Hx Anesthesia Reactions: No Hx Malignant Hyperthermia: No Meds Allergies/Adverse Reactions: Allergies Allergy/AdvReac Type Severity Reaction Status Date / Time Penicillins Allergy RASH Verified 12/13/18 16:48 - Medications Medications: Current Medications Acetaminophen (Tylenol 325mg Tab) 650 mg PO Q6 PRN PRN Reason: pain (1-10) Last Admin: 12/14/18 01:18 Dose: 650 mg Acetaminophen (Tylenol 325mg Tab) 650 mg PO Q6H PRN PRN Reason: Fever >100.4 F Allopurinol (Zyloprim) 100 mg PO DAILY [facility] Last Admin: 12/14/18 09:08 Dose: Not Given Atorvastatin Calcium (Lipitor) 10 mg PO HS [facility] Last Admin: 12/15/18 04:29 Dose: Not Given Calcitriol (Rocaltrol) 0.25 mcg PO DAILY [facility] Last Admin: 12/15/18 08:02 Dose: Not Given Diphenhydramine HCl (Benadryl) 50 mg IVP Q24H PRN PRN Reason: Allergy symptoms Last Admin: 12/14/18 16:14 Dose: 50 mg Epoetin Mitchell (Procrit) 10,000 unit IV MWF [facility] Folic Acid (Folic Acid) 1 mg PO DAILY [facility] Last Admin: 12/15/18 08:02 Dose: Not Given Gabapentin (Neurontin) 100 mg PO TID [facility] Last Admin: 12/15/18 08:02 Dose: Not Given Metronidazole 250 mg/ (Miscellaneous) 50 mls @ 50 mls/hr IVPB Q8 [facility]; Protocol Last Admin: 12/15/18 08:03 Dose: 50 mls/hr Pantoprazole Sodium 40 mg/ (Sodium Chloride) 100 mls @ 20 mls/hr IVPB Q5H [facility] Last Admin: 12/15/18 07:59 Dose: 20 mls/hr Sodium Bicarbonate 150 meq/ (Dextrose) 1,150 mls @ 125 mls/hr IV .Q9H12M [facility] Stop: 12/15/18 18:00 Last Admin: 12/15/18 07:57 Dose: 125 mls/hr Fluconazole (Diflucan Iv 100 Mg/50 Ml Ns) 50 mls @ 50 mls/hr IVPB DAILY [facility]; Protocol Last Admin: 12/15/18 08:03 Dose: 50 mls/hr Vancomycin HCl 1 gm/ Sodium (Chloride) 250 mls @ 125 mls/hr IVPB MWF [facility]; Protocol Meropenem 500 mg/ Sodium (Chloride) 100 mls @ 100 mls/hr IVPB Q24H [facility]; Protocol Last Admin: 12/14/18 17:10 Dose: 100 mls/hr Methylprednisolone 40 mg/ (Sodium Chloride) 50 mls @ 100 mls/hr IVPB DAILY [facility] Last Admin: 12/14/18 16:15 Dose: 100 mls/hr Insulin Human Lispro (Humalog) 0 units SC Q6H [facility]; Protocol Last Admin: 12/15/18 04:40 Dose: Not Given Lactic Acid (Lac-Hydrin 12% Lotion (225 G)) 1 applic TOP DAILY [facility] Last Admin: 12/15/18 08:02 Dose: 1 applic Metoclopramide HCl (Reglan) 10 mg IVP Q6 PRN PRN Reason: Nausea/Vomiting Last Admin: 12/14/18 05:00 Dose: 10 mg Ondansetron HCl (Zofran Inj) 4 mg IVP Q6H PRN PRN Reason: Nausea/Vomiting Last Admin: 12/14/18 12:30 Dose: 4 mg Vitamin B Complex/Vit C/Folic Acid (Nephro-Elsa) 1 tab PO DAILY [facility] Last Admin: 12/15/18 08:02 Dose: Not Given Physical Exam - Constitutional Appears: No Acute Distress, Confused, Chronically Ill - ENT Exam ENT Exam: Mucous Membranes Dry - Neck Exam Neck exam: Negative for: Lymphadenopathy - Respiratory Exam Respiratory Exam: NORMAL BREATHING PATTERN. absent: Rhonchi - Cardiovascular Exam Cardiovascular Exam: REGULAR RHYTHM. absent: Gallop, JVD, Rubs - GI/Abdominal Exam GI & Abdominal Exam: Firm. absent: Guarding - Extremities Exam Extremities exam: Negative for: calf tenderness, pedal edema - Back Exam Back exam: absent: CVA tenderness (L), CVA tenderness (R) - Neurological Exam Neurological exam: Altered - Psychiatric Exam Psychiatric exam: Flat Affect Results - Vital Signs Recent Vital Signs: Last Vital Signs Temp 97.8 F 12/15/18 08:00 Pulse 96 H 01/14/19 08:00 Resp 9 L 12/15/18 08:00 BP 100/72 12/15/18 08:00 Pulse Ox 97 12/15/18 08:00 - Labs Result Diagrams: 12/15/18 04:20 12/15/18 04:20 Labs: Laboratory Results - last 24 hr 12/14/18 12/14/18 12/14/18 09:40 10:59 16:24 WBC RBC Hgb Hct MCV MCH MCHC RDW Plt Count MPV Neut % (Auto) Lymph % (Auto) Daggett % (Auto) Eos % (Auto) Baso % (Auto) Neut # (Auto) Lymph # (Auto) Daggett # (Auto) Eos # (Auto) Baso # (Auto) Neutrophils % (Manual) Lymphocytes % (Manual) Monocytes % (Manual) Platelet Estimate Large Platelets Anisocytosis (manual) Ovalocytes pCO2 18 L* pO2 50 L HCO3 6.4 L* ABG pH 7.06 L* ABG Total CO2 5.7 L ABG O2 Saturation 83.8 L ABG O2 Content 11.4 L ABG Base Excess -23.4 L ABG Hemoglobin 9.9 L ABG Carboxyhemoglobin 1.3 POC ABG HHb (Measured) 15.8 H ABG Methemoglobin 1.0 ABG O2 Capacity 13.6 L Dorian Test Yes A-a O2 Difference 77.0 Hgb O2 Saturation 82.0 L FiO2 21.0 Crit Value Called To Severino angulo Crit Value Called By Rt Crit Value Read Back Y Blood Gas Notified Time 950 Sodium Potassium Chloride Carbon Dioxide Anion Gap BUN Creatinine Est GFR ( Amer) Est GFR (Non-Af Amer) POC Glucose (mg/dL) 159 H 255 H Random Glucose Calcium Phosphorus 12/14/18 12/14/18 12/15/18 18:30 21:49 04:20 WBC 13.4 H RBC 3.44 L Hgb 8.1 L Hct 25.6 L MCV 74.3 L D MCH 23.6 L MCHC 31.8 L RDW 19.6 H Plt Count 351 MPV 6.9 L Neut % (Auto) 93.0 H Lymph % (Auto) 4.7 L Daggett % (Auto) 2.1 Eos % (Auto) 0.0 Baso % (Auto) 0.2 Neut # (Auto) 12.5 H Lymph # (Auto) 0.6 L Daggett # (Auto) 0.3 Eos # (Auto) 0.0 Baso # (Auto) 0.0 Neutrophils % (Manual) 92 H Lymphocytes % (Manual) 5 L Monocytes % (Manual) 3 Platelet Estimate Normal Large Platelets Present Anisocytosis (manual) Slight Ovalocytes Slight pCO2 pO2 HCO3 ABG pH ABG Total CO2 ABG O2 Saturation ABG O2 Content ABG Base Excess ABG Hemoglobin ABG Carboxyhemoglobin POC ABG HHb (Measured) ABG Methemoglobin ABG O2 Capacity Dorian Test A-a O2 Difference Hgb O2 Saturation FiO2 Crit Value Called To Crit Value Called By Crit Value Read Back Blood Gas Notified Time Sodium 134 Potassium 3.7 Chloride 106 Carbon Dioxide 8 L* Anion Gap 24 H BUN 50 H Creatinine 10.2 H* Est GFR ( Amer) 7 Est GFR (Non-Af Amer) 5 POC Glucose (mg/dL) 211 H Random Glucose 175 H Calcium 8.0 L Phosphorus 12/15/18 12/15/18 04:20 04:36 WBC RBC Hgb Hct MCV MCH MCHC RDW Plt Count MPV Neut % (Auto) Lymph % (Auto) Daggett % (Auto) Eos % (Auto) Baso % (Auto) Neut # (Auto) Lymph # (Auto) Daggett # (Auto) Eos # (Auto) Baso # (Auto) Neutrophils % (Manual) Lymphocytes % (Manual) Monocytes % (Manual) Platelet Estimate Large Platelets Anisocytosis (manual) Ovalocytes pCO2 pO2 HCO3 ABG pH ABG Total CO2 ABG O2 Saturation ABG O2 Content ABG Base Excess ABG Hemoglobin ABG Carboxyhemoglobin POC ABG HHb (Measured) ABG Methemoglobin ABG O2 Capacity Dorian Test A-a O2 Difference Hgb O2 Saturation FiO2 Crit Value Called To Crit Value Called By Crit Value Read Back Blood Gas Notified Time Sodium 137 Potassium 3.1 L Chloride 103 Carbon Dioxide 13 L Anion Gap 24 H BUN 52 H Creatinine 10.0 H* Est GFR ( Amer) 7 Est GFR (Non-Af Amer) 6 POC Glucose (mg/dL) 238 H Random Glucose 224 H Calcium 7.9 L Phosphorus 6.6 H Assessment & Plan (1) Chronic kidney disease with end stage renal failure on dialysis Assessment and Plan: End-stage renal disease patient was admitted with what appeared to be sepsis abdominal pain perhaps intra-abdominal sepsis. Leukocytosis ESRD, CVA, HTN, DM, PVD SB resection for perforated viscous and ischemic bowel 11/11/18, R IJ permacath , R AVF, R TMA The plan Patient is receiving antibiotics as noted per ID Surgical follow-up Hemodialysis started now Anemia management with EPO Status: Acute (2) Abdominal pain Status: Acute (3) Sepsis Status: Acute
--- NOTE | 2018-12-15 09:36 | CP.PCM.PN ---
Subjective - Date & Time of Evaluation Date of Evaluation: 12/15/18 Time of Evaluation: 09:34 - Subjective Subjective: Dialysis note He was seen on hemodialysis now Discussed with the dialysis nurse at the bedside Ultrafiltration about 500 cc because of systolic blood pressure around 105 at the present Potassium bath has been increased to 4 mEq Patient is lethargic Objective - Vital Signs/Intake and Output Vital Signs (last 24 hours): Temp Pulse Resp BP Pulse Ox 97.8 F 96 H 9 L 100/72 97 12/15/18 08:00 12/15/18 08:00 12/15/18 08:00 12/15/18 08:00 12/15/18 08:00 Intake and Output: 12/15/18 12/15/18 06:59 18:59 Intake Total 1280 300 Balance 1280 300 - Medications Medications: Current Medications Acetaminophen (Tylenol 325mg Tab) 650 mg PO Q6 PRN PRN Reason: pain (1-10) Last Admin: 12/14/18 01:18 Dose: 650 mg Acetaminophen (Tylenol 325mg Tab) 650 mg PO Q6H PRN PRN Reason: Fever >100.4 F Allopurinol (Zyloprim) 100 mg PO DAILY [facility] Last Admin: 12/14/18 09:08 Dose: Not Given Atorvastatin Calcium (Lipitor) 10 mg PO HS [facility] Last Admin: 12/15/18 04:29 Dose: Not Given Calcitriol (Rocaltrol) 0.25 mcg PO DAILY [facility] Last Admin: 12/15/18 08:02 Dose: Not Given Diphenhydramine HCl (Benadryl) 50 mg IVP Q24H PRN PRN Reason: Allergy symptoms Last Admin: 12/14/18 16:14 Dose: 50 mg Epoetin Mitchell (Procrit) 10,000 unit IV MWF [facility] Folic Acid (Folic Acid) 1 mg PO DAILY [facility] Last Admin: 12/15/18 08:02 Dose: Not Given Gabapentin (Neurontin) 100 mg PO TID [facility] Last Admin: 12/15/18 08:02 Dose: Not Given Metronidazole 250 mg/ (Miscellaneous) 50 mls @ 50 mls/hr IVPB Q8 [facility]; Protocol Last Admin: 12/15/18 08:03 Dose: 50 mls/hr Pantoprazole Sodium 40 mg/ (Sodium Chloride) 100 mls @ 20 mls/hr IVPB Q5H [facility] Last Admin: 12/15/18 07:59 Dose: 20 mls/hr Sodium Bicarbonate 150 meq/ (Dextrose) 1,150 mls @ 125 mls/hr IV .Q9H12M [facility] Stop: 12/15/18 18:00 Last Admin: 12/15/18 07:57 Dose: 125 mls/hr Fluconazole (Diflucan Iv 100 Mg/50 Ml Ns) 50 mls @ 50 mls/hr IVPB DAILY [facility]; Protocol Last Admin: 12/15/18 08:03 Dose: 50 mls/hr Vancomycin HCl 1 gm/ Sodium (Chloride) 250 mls @ 125 mls/hr IVPB MWF [facility]; Protocol Meropenem 500 mg/ Sodium (Chloride) 100 mls @ 100 mls/hr IVPB Q24H [facility]; Protocol Last Admin: 12/14/18 17:10 Dose: 100 mls/hr Methylprednisolone 40 mg/ (Sodium Chloride) 50 mls @ 100 mls/hr IVPB DAILY [facility] Last Admin: 12/14/18 16:15 Dose: 100 mls/hr Insulin Human Lispro (Humalog) 0 units SC Q6H [facility]; Protocol Last Admin: 12/15/18 04:40 Dose: Not Given Lactic Acid (Lac-Hydrin 12% Lotion (225 G)) 1 applic TOP DAILY [facility] Last Admin: 12/15/18 08:02 Dose: 1 applic Metoclopramide HCl (Reglan) 10 mg IVP Q6 PRN PRN Reason: Nausea/Vomiting Last Admin: 12/14/18 05:00 Dose: 10 mg Ondansetron HCl (Zofran Inj) 4 mg IVP Q6H PRN PRN Reason: Nausea/Vomiting Last Admin: 12/14/18 12:30 Dose: 4 mg Vitamin B Complex/Vit C/Folic Acid (Nephro-Elsa) 1 tab PO DAILY [facility] Last Admin: 12/15/18 08:02 Dose: Not Given - Labs Labs: 12/15/18 04:20 12/15/18 04:20 PT 18.1 Seconds (9.8-13.1) H 12/13/18 17:15 INR 1.6 12/13/18 17:15 APTT 39.7 Seconds (25.6-37.1) H 12/13/18 17:15 - Constitutional Appears: No Acute Distress - ENT Exam ENT Exam: Mucous Membranes Dry - Neck Exam Neck Exam: absent: Lymphadenopathy - Respiratory Exam Respiratory Exam: absent: Chest Wall Tenderness - Cardiovascular Exam Cardiovascular Exam: absent: Gallop, JVD, Rubs - GI/Abdominal Exam GI & Abdominal Exam: Guarding - Extremities Exam Extremities Exam: absent: Calf Tenderness - Back Exam Back Exam: absent: CVA tenderness (L), CVA tenderness (R) - Neurological Exam Neurological Exam: Altered - Psychiatric Exam Psychiatric exam: Flat Affect - Skin Skin Exam: absent: Cyanosis Assessment and Plan (1) Chronic kidney disease with end stage renal failure on dialysis Assessment & Plan: End-stage renal disease patient receiving hemodialysis now Leukocytosis ESRD, CVA, HTN, DM, PVD SB resection for perforated viscous and ischemic bowel 11/11/18, R IJ permacath, R AVF, R TMA The plan Hemodialysis surrounding the right now vital signs stable discussed with the dialysis nurse at the bedside and electrolyte were noted and potassium increased to 4 mEq. Sodium bath 138 Patient is receiving antibiotics as noted per ID Surgical follow-up Hemodialysis started now Anemia management with EPO Status: Acute (2) Abdominal pain Status: Acute (3) Sepsis Status: Acute
--- NOTE | 2018-12-15 11:22 | CP.CCUPN ---
CCU Subjective - Physician Review Subjective (Free Text): Events over the past 24H reviewed: undergoing first HD this hospital admission now this morning, otherwise in no distress, awake and alert, off Levophed since 4Pm yesterday, using PermaCath lines in R SCV for IV access, ongoing bicarbonate drip as per Nephrology. Afebrile, no fever spikes overnight, SBP 110-130s; HR 100s SPO2 99% on RA, RR 19. ROS: No other pertinent negs or positives on 10+ system review. PMSFH: CHF, HTN, DM, hypothyroidism, Pacemaker insertion, knee surgery. All other Nursing and physician documentation reviewed to date; no new pertinent info noted relevant to current medical problems. EXAM- HEENT: no icterus, no gaze preference NECK: No JVD visible given short neck and overall obesity, supple, carotids equal upstroke bilat/no bruit CHEST: decreased BS at the bases, no wheezes audible bilaterally. HEART: regular, distant, S1S2, no rubs or murmurs noted ABD: soft, obese, nontender, no guarding, no organomegaly, BS hypoactive. EXT: RLE MTA, RUE AVF; no calf tenderness or palpable cords, distal pulses intact and symmetrical. NEURO: no gross focal motor deficits SKIN: no rashes, warm and dry LABS: WBC= 13.4 HGB= 8.1 PLTs= 351K Na= 137 K= 3.1 CL= 103 HCO3= 13 BUN/Cr= 52/10.0 BS= 224 CXR: (my interp)- 12/13/18 ; Clear, no gross consolidation nor congestion. IMPRESSION / MAJOR PROBLEMS NOW: 1. Intra-abdominal Abcess/ fluid collection; h/o SB resection 1 month ago 2. Severe sepsis with Shock 2 #1 3. ESRD with missed HD sessions; Azotemia / Hypokalemia 3. Chronic Disease Anemia PLAN: 1. HD today, acidosis improved, off vasopressors. 2. Empiric abx and Antifungal coverage. Surgical / IR follow-up regarding drainage and or further source control. Lactates were never elevated. 3. K bath increased during HD to counteract low K. Check repeat K post HD today. 4. Needs other central venous access, PICC ordered. 5. Check repeat coags, may need FFP, HGB levels slightly lower with IVFs; no active bleeding evident.
--- NOTE | 2018-12-15 11:31 | CP.PCM.CON ---
History of Present Illness - History of Present Illness History of Present Illness: Nephrology Consultation Note: Assessment: critical intra-abdo abscess, septic/hypovolemic shock, HAGMA missed dialysis Diabetic chronic Kidney Disease (E11.22) Hypertensive Chronic Kidney Disease (I12.0) End stage renal disease (N18.6) dependence on hemodialysis (Z99.2) (MWF) via pc Anemia (D64.9), Hyperphosphatemia (E83.39), Secondary Hyperparathyroidism (E21.1), HTN (I12.0) Plan: will start bicarb drip to help with acidosis pt not hemodynamically stable for dialysis today. Will plan for HD tomorrow as ordered.Continue with Nephrovite 1 tab/day. PRBC as needed for anemia. on YURIY with dialysis as last Hb 9 hold phos binders due to diarrhoea, last phos level; 7.2, expect to improve after HD Continue with calcitriol daily hold BP meds Glycemic control, Dialysis consistent diet Further work up/management as per primary team Dose meds/antibiotics (if needed) for ESRD status. Avoid fleets enema/magnesium based laxatives. surgery following. may need IR for drainage Thanks for allowing me to participate in care of your patient. Will follow patient with you. Please call if any Qs. had d/w team Dr Rigo Toro Office: [phone] Chief Complaint; diarrhoea HPI: Pt is a 47 M with hx of ESRD on hemodialysis (MWF) via pc , last dialysis sat, chronic anemia, hyperphosphatemia, secondary hyperparathyroidism, Diabetes Mellitus, hypertension s/p recent small bowel resection presented with complaints of pain abdomen with multiple episode of diarrhoea for last 1 week. pt went for last HD saturday Renal consult requested for ESRD management. he feels sick. found to have intra-abdo abscess, septic/hypovolemic shock, severe acidosis ROS: Cardiovascular: No chest pain. Pulmonary: No shortness of breath Gastrointestinal: c/o loose stool Genitourinary: No pain while urinating. Denies blood in urine. All other negative except as mentioned in HPI Physical Examination: General Appearance: uncomfortable, in no acute respiratory distress, co- operative . obese Vitals reviewed and noted as below Head; Atraumatic, normocephalic ENT: no ulcers no thrush. Tongue is midline. Oropharynx: no rash or ulcers. EYES: Pupils are equal, round and reactive to light accommodation. Eye muscles and extraocular movement intact. Sclera is anicteric. Neck; supple no lymphadenopathy, no thyromegaly or bruit Lungs: Normal respiratory rate/effort. Breath sounds bilateral equal and clear Heart: Increased rate. s1s2 normal. No rub or gallop. Extremities: no edema. No varicose veins. Rt TMA Neurological: Patient is alert, awake and oriented to person, place and time. No focal deficit. Strength bilateral appropriate and equal Skin: Warm and dry. Normal turgor. No rash. Palpitation: Normal elasticity for age Abdomen: Abdomen is soft. Bowel sounds +. There is mild LLQ abdominal tenderness, no guarding/rigidity or organomegaly. has midline wound healing Psych: normal insight and normal affect/mood MSK: no joint tenderness or swelling. Digits and nails normal, no deformity : kidney or bladder not palpable Access: pc. Rt AVF maturing Labs/imaging reviewed. Past medical history, past surgical history, family history, social history, allergy reviewed and noted as below Family Hx: no hx of CKD. Non contributory Past Patient History - Infectious Disease Hx of Infectious Diseases: None - Past Medical History & Family History Past Medical History?: Yes - Past Social History Smoking Status: Former Smoker Alcohol: None Drugs: Denies - CARDIAC Hx Congestive Heart Failure: No Hx Hypercholesterolemia: Yes Hx Hypertension: Yes - PULMONARY Hx Chronic Obstructive Pulmonary Disease (COPD): No - NEUROLOGICAL Hx Neurological Disorder: Yes HX Cerebrovascular Accident: Yes - HEENT Hx HEENT Problems: No - RENAL Hx Chronic Kidney Disease: Yes - ENDOCRINE/METABOLIC Hx Hypothyroidism: No - HEMATOLOGICAL/ONCOLOGICAL Hx Anemia: Yes Hx Human Immunodeficiency Virus (HIV): No - INTEGUMENTARY Hx Dermatological Problems: No - MUSCULOSKELETAL/RHEUMATOLOGICAL Hx Arthritis: No Hx Rheumatoid Arthritis: No - GASTROINTESTINAL Hx Gastritis: Yes - GENITOURINARY/GYNECOLOGICAL Hx Genitourinary Disorders: No - PSYCHIATRIC Hx Psychophysiologic Disorder: No Hx Substance Use: No - SURGICAL HISTORY Hx Surgeries: Yes Hx Amputation: Yes (tma right foot) Other/Comment: left suboccipital craniotomy and right ankle surgery - ANESTHESIA Hx Anesthesia: Yes Hx Anesthesia Reactions: No Hx Malignant Hyperthermia: No Meds Allergies/Adverse Reactions: Allergies Allergy/AdvReac Type Severity Reaction Status Date / Time Penicillins Allergy RASH Verified 12/13/18 16:48 - Medications Medications: Current Medications Acetaminophen (Tylenol 325mg Tab) 650 mg PO Q6 PRN PRN Reason: pain (1-10) Last Admin: 12/14/18 01:18 Dose: 650 mg Acetaminophen (Tylenol 325mg Tab) 650 mg PO Q6H PRN PRN Reason: Fever >100.4 F Allopurinol (Zyloprim) 100 mg PO DAILY [facility] Last Admin: 12/14/18 09:08 Dose: Not Given Atorvastatin Calcium (Lipitor) 10 mg PO HS [facility] Last Admin: 12/13/18 23:30 Dose: 10 mg Calcitriol (Rocaltrol) 0.25 mcg PO DAILY [facility] Epoetin Mitchell (Procrit) 10,000 unit IV MWF [facility] Folic Acid (Folic Acid) 1 mg PO DAILY [facility] Last Admin: 12/14/18 09:07 Dose: Not Given Gabapentin (Neurontin) 100 mg PO TID [facility] Last Admin: 12/14/18 09:07 Dose: Not Given Metronidazole 250 mg/ (Miscellaneous) 50 mls @ 50 mls/hr IVPB Q8 [facility]; Protocol Last Admin: 12/14/18 09:07 Dose: 50 mls/hr Norepinephrine Bitartrate 4 mg (/ Dextrose) 254 mls @ 9.53 mls/hr IV .Q24H [facility]; Protocol Last Titration: 12/14/18 12:08 Dose: 10 mcg/min, 38.1 mls/hr Pantoprazole Sodium 40 mg/ (Sodium Chloride) 100 mls @ 20 mls/hr IVPB Q5H [facility] Last Admin: 12/14/18 09:06 Dose: 20 mls/hr Sodium Bicarbonate 150 meq/ (Dextrose) 1,150 mls @ 125 mls/hr IV .Q9H12M [facility] Stop: 12/15/18 18:00 Last Admin: 12/14/18 11:43 Dose: 125 mls/hr Fluconazole (Diflucan Iv 100 Mg/50 Ml Ns) 50 mls @ 50 mls/hr IVPB DAILY [facility]; Protocol Last Admin: 12/14/18 11:48 Dose: 50 mls/hr Insulin Human Lispro (Humalog) 0 units SC Q6H [facility]; Protocol Last Admin: 12/14/18 11:01 Dose: 1 unit Lactic Acid (Lac-Hydrin 12% Lotion (225 G)) 1 applic TOP DAILY [facility] Last Admin: 12/14/18 11:01 Dose: 1 applic Metoclopramide HCl (Reglan) 10 mg IVP Q6 PRN PRN Reason: Nausea/Vomiting Last Admin: 12/14/18 05:00 Dose: 10 mg Ondansetron HCl (Zofran Inj) 4 mg IVP Q6H PRN PRN Reason: Nausea/Vomiting Last Admin: 12/14/18 12:30 Dose: 4 mg Vitamin B Complex/Vit C/Folic Acid (Nephro-Elsa) 1 tab PO DAILY [facility] Last Admin: 12/14/18 09:07 Dose: Not Given Results - Vital Signs Recent Vital Signs: Last Vital Signs Temp 98.5 F 12/14/18 12:00 Pulse 117 H 12/14/18 12:00 Resp 13 12/14/18 12:00 BP 122/67 12/14/18 12:00 Pulse Ox 100 12/14/18 12:00 - Labs Result Diagrams: 12/14/18 05:30 12/14/18 05:30 Labs: Laboratory Results - last 24 hr 12/13/18 12/13/18 12/13/18 16:54 17:13 17:15 WBC 21.7 H D RBC 4.01 L Hgb 9.2 L Hct 30.5 L MCV 76.1 L MCH 23.0 L MCHC 30.3 L RDW 19.3 H Plt Count 358 D MPV 7.3 Neut % (Auto) 86.4 H Lymph % (Auto) 7.8 L [place] % (Auto) 5.0 Eos % (Auto) 0.3 Baso % (Auto) 0.5 Neut # (Auto) 18.7 H Lymph # (Auto) 1.7 [place] # (Auto) 1.1 H Eos # (Auto) 0.1 Baso # (Auto) 0.1 Neutrophils % (Manual) 83 H Lymphocytes % (Manual) 10 L Monocytes % (Manual) 7 Platelet Estimate Normal Large Platelets Present Hypochromasia (manual) Slight Anisocytosis (manual) Slight Ovalocytes Moderate PT INR APTT pCO2 pO2 37 HCO3 ABG pH ABG Total CO2 ABG O2 Saturation ABG O2 Content ABG Base Excess ABG Hemoglobin ABG Carboxyhemoglobin POC ABG HHb (Measured) ABG Methemoglobin ABG O2 Capacity Dorian Test VBG pH 7.07 L* VBG pCO2 26 L VBG HCO3 6.9 VBG Total CO2 8.3 L VBG O2 Sat (Calc) 65.4 H VBG Base Excess -21.3 L VBG Potassium 3.7 A-a O2 Difference Hgb O2 Saturation Sodium 128.0 L Chloride 104.0 Glucose 159 H Lactate 1.2 FiO2 21.0 Crit Value Called To Maurice berry md Crit Value Called By 6075 Crit Value Read Back Y Blood Gas Notified Time 1716 Potassium Carbon Dioxide Anion Gap BUN Creatinine Est GFR ( Amer) Est GFR (Non-Af Amer) POC Glucose (mg/dL) 153 H Random Glucose Calcium Phosphorus Magnesium Total Bilirubin AST ALT Alkaline Phosphatase Troponin I Total Protein Albumin Globulin Albumin/Globulin Ratio Venous Blood Potassium 3.7 Random Vancomycin 12/13/18 12/13/18 12/13/18 17:15 17:15 22:58 WBC RBC Hgb Hct MCV MCH MCHC RDW Plt Count MPV Neut % (Auto) Lymph % (Auto) [place] % (Auto) Eos % (Auto) Baso % (Auto) Neut # (Auto) Lymph # (Auto) [place] # (Auto) Eos # (Auto) Baso # (Auto) Neutrophils % (Manual) Lymphocytes % (Manual) Monocytes % (Manual) Platelet Estimate Large Platelets Hypochromasia (manual) Anisocytosis (manual) Ovalocytes PT 18.1 H INR 1.6 APTT 39.7 H pCO2 pO2 HCO3 ABG pH ABG Total CO2 ABG O2 Saturation ABG O2 Content ABG Base Excess ABG Hemoglobin ABG Carboxyhemoglobin POC ABG HHb (Measured) ABG Methemoglobin ABG O2 Capacity Dorian Test VBG pH VBG pCO2 VBG HCO3 VBG Total CO2 VBG O2 Sat (Calc) VBG Base Excess VBG Potassium A-a O2 Difference Hgb O2 Saturation Sodium 132 Chloride 107 Glucose Lactate FiO2 Crit Value Called To Crit Value Called By Crit Value Read Back Blood Gas Notified Time Potassium 4.0 Carbon Dioxide 8 L* D Anion Gap 21 H BUN 51 H Creatinine 11.5 H* D Est GFR ( Amer) 6 Est GFR (Non-Af Amer) 5 POC Glucose (mg/dL) 166 H Random Glucose 153 H Calcium 9.1 Phosphorus 7.2 H Magnesium 1.3 L Total Bilirubin 0.3 AST 26 ALT 24 Alkaline Phosphatase 132 H D Troponin I < 0.0120 Total Protein 7.1 Albumin 3.1 L Globulin 4.0 H Albumin/Globulin Ratio 0.8 L Venous Blood Potassium Random Vancomycin 12/14/18 12/14/18 12/14/18 05:25 05:30 05:30 WBC 20.4 H RBC 3.93 L Hgb 9.0 L Hct 30.2 L MCV 76.9 L MCH 22.9 L MCHC 29.8 L RDW 20.1 H Plt Count 388 MPV Neut % (Auto) Lymph % (Auto) [place] % (Auto) Eos % (Auto) Baso % (Auto) Neut # (Auto) Lymph # (Auto) [place] # (Auto) Eos # (Auto) Baso # (Auto) Neutrophils % (Manual) Lymphocytes % (Manual) Monocytes % (Manual) Platelet Estimate Large Platelets Hypochromasia (manual) Anisocytosis (manual) Ovalocytes PT INR APTT pCO2 pO2 HCO3 ABG pH ABG Total CO2 ABG O2 Saturation ABG O2 Content ABG Base Excess ABG Hemoglobin ABG Carboxyhemoglobin POC ABG HHb (Measured) ABG Methemoglobin ABG O2 Capacity Dorian Test VBG pH VBG pCO2 VBG HCO3 VBG Total CO2 VBG O2 Sat (Calc) VBG Base Excess VBG Potassium A-a O2 Difference Hgb O2 Saturation Sodium 134 Chloride 106 Glucose Lactate FiO2 Crit Value Called To Crit Value Called By Crit Value Read Back Blood Gas Notified Time Potassium 3.4 L Carbon Dioxide 8 L* Anion Gap 23 H BUN 47 H Creatinine 10.4 H* Est GFR ( Amer) 6 Est GFR (Non-Af Amer) 5 POC Glucose (mg/dL) 128 H Random Glucose 149 H Calcium 8.3 L Phosphorus Magnesium Total Bilirubin AST ALT Alkaline Phosphatase Troponin I Total Protein Albumin Globulin Albumin/Globulin Ratio Venous Blood Potassium Random Vancomycin 12/14/18 12/14/18 12/14/18 05:30 09:40 10:59 WBC RBC Hgb Hct MCV MCH MCHC RDW Plt Count MPV Neut % (Auto) Lymph % (Auto) [place] % (Auto) Eos % (Auto) Baso % (Auto) Neut # (Auto) Lymph # (Auto) [place] # (Auto) Eos # (Auto) Baso # (Auto) Neutrophils % (Manual) Lymphocytes % (Manual) Monocytes % (Manual) Platelet Estimate Large Platelets Hypochromasia (manual) Anisocytosis (manual) Ovalocytes PT INR APTT pCO2 18 L* pO2 50 L HCO3 6.4 L* ABG pH 7.06 L* ABG Total CO2 5.7 L ABG O2 Saturation 83.8 L ABG O2 Content 11.4 L ABG Base Excess -23.4 L ABG Hemoglobin 9.9 L ABG Carboxyhemoglobin 1.3 POC ABG HHb (Measured) 15.8 H ABG Methemoglobin 1.0 ABG O2 Capacity 13.6 L Dorian Test Yes VBG pH VBG pCO2 VBG HCO3 VBG Total CO2 VBG O2 Sat (Calc) VBG Base Excess VBG Potassium A-a O2 Difference 77.0 Hgb O2 Saturation 82.0 L Sodium Chloride Glucose Lactate FiO2 21.0 Crit Value Called To Severino angulo Crit Value Called By Rt Crit Value Read Back Y Blood Gas Notified Time 950 Potassium Carbon Dioxide Anion Gap BUN Creatinine Est GFR ( Amer) Est GFR (Non-Af Amer) POC Glucose (mg/dL) 159 H Random Glucose Calcium Phosphorus Magnesium Total Bilirubin AST ALT Alkaline Phosphatase Troponin I Total Protein Albumin Globulin Albumin/Globulin Ratio Venous Blood Potassium Random Vancomycin 7.0
[2018-12-15] MEDS ORDERED: MethylPREDNISolone 40 mg Vial IVP ONE (17:30)
[2018-12-15] MEDS: Meropenem 500 MG in Sodium Chloride 0.9% 100 ML IVPB SCH (17:52)
[2018-12-15] MEDS: DiphenhydrAMINE 50 mg/ml Inj IVP PRN (17:52)
--- NOTE | 2018-12-15 18:37 | CP.PCM.PN ---
Subjective - Date & Time of Evaluation Date of Evaluation: 12/15/18 Time of Evaluation: 11:00 - Subjective Subjective: Patient is much more awake Noted BP to be in the range of 100 to 110 and drop to 90's during dialysis Has no fever feels a lot better. Has no SOB No chest pain. Objective - Vital Signs/Intake and Output Vital Signs (last 24 hours): Temp Pulse Resp BP Pulse Ox 98.3 F 106 H 10 L 150/95 H 99 12/15/18 16:00 12/15/18 18:00 12/15/18 18:00 12/15/18 18:00 12/15/18 18:00 Intake and Output: 12/15/18 12/15/18 06:59 18:59 Intake Total 1280 875 Output Total 500 Balance 1280 375 - Medications Medications: Current Medications Acetaminophen (Tylenol 325mg Tab) 650 mg PO Q6 PRN PRN Reason: pain (1-10) Last Admin: 12/14/18 01:18 Dose: 650 mg Acetaminophen (Tylenol 325mg Tab) 650 mg PO Q6H PRN PRN Reason: Fever >100.4 F Allopurinol (Zyloprim) 100 mg PO DAILY [facility] Last Admin: 12/15/18 13:35 Dose: Not Given Atorvastatin Calcium (Lipitor) 10 mg PO HS [facility] Last Admin: 12/15/18 04:29 Dose: Not Given Calcitriol (Rocaltrol) 0.25 mcg PO DAILY [facility] Last Admin: 12/15/18 08:02 Dose: Not Given Diphenhydramine HCl (Benadryl) 50 mg IVP Q24H PRN PRN Reason: Allergy symptoms Last Admin: 12/15/18 17:52 Dose: 50 mg Epoetin Mitchell (Procrit) 10,000 unit IV MWF [facility] Folic Acid (Folic Acid) 1 mg PO DAILY [facility] Last Admin: 12/15/18 08:02 Dose: Not Given Gabapentin (Neurontin) 100 mg PO TID [facility] Last Admin: 12/15/18 16:30 Dose: Not Given Metronidazole 250 mg/ (Miscellaneous) 50 mls @ 50 mls/hr IVPB Q8 [facility]; Protocol Last Admin: 12/15/18 16:31 Dose: 50 mls/hr Pantoprazole Sodium 40 mg/ (Sodium Chloride) 100 mls @ 20 mls/hr IVPB Q5H [facility] Last Admin: 12/15/18 17:16 Dose: 20 mls/hr Fluconazole (Diflucan Iv 100 Mg/50 Ml Ns) 50 mls @ 50 mls/hr IVPB DAILY [facility]; Protocol Last Admin: 12/15/18 08:03 Dose: 50 mls/hr Vancomycin HCl 1 gm/ Sodium (Chloride) 250 mls @ 125 mls/hr IVPB MWF [facility]; Protocol Last Admin: 12/15/18 14:42 Dose: 125 mls/hr Meropenem 500 mg/ Sodium (Chloride) 100 mls @ 100 mls/hr IVPB Q24H [facility]; Protocol Last Admin: 12/15/18 17:52 Dose: 100 mls/hr Insulin Human Lispro (Humalog) 0 units SC Q6H [facility]; Protocol Last Admin: 12/15/18 17:53 Dose: 1 unit Lactic Acid (Lac-Hydrin 12% Lotion (225 G)) 1 applic TOP DAILY [facility] Last Admin: 12/15/18 08:02 Dose: 1 applic Methylprednisolone (Solu-Medrol) 40 mg IVP DAILY [facility] Metoclopramide HCl (Reglan) 10 mg IVP Q6 PRN PRN Reason: Nausea/Vomiting Last Admin: 12/14/18 05:00 Dose: 10 mg Ondansetron HCl (Zofran Inj) 4 mg IVP Q6H PRN PRN Reason: Nausea/Vomiting Last Admin: 12/14/18 12:30 Dose: 4 mg Vitamin B Complex/Vit C/Folic Acid (Nephro-Elsa) 1 tab PO DAILY [facility] Last Admin: 12/15/18 08:02 Dose: Not Given - Labs Labs: 12/15/18 04:20 12/15/18 04:20 PT 18.1 Seconds (9.8-13.1) H 12/13/18 17:15 INR 1.6 12/13/18 17:15 APTT 39.7 Seconds (25.6-37.1) H 12/13/18 17:15 - Head Exam Head Exam: NORMAL INSPECTION - Eye Exam Eye Exam: Normal appearance - ENT Exam ENT Exam: Mucous Membranes Moist - Respiratory Exam Respiratory Exam: Clear to Ausculation Bilateral - Cardiovascular Exam Cardiovascular Exam: REGULAR RHYTHM - GI/Abdominal Exam GI & Abdominal Exam: Normal Bowel Sounds - Neurological Exam Neurological Exam: Awake, Oriented x3 Assessment and Plan (1) Sepsis Status: Acute (2) Severe dehydration Status: Acute (3) Abdominal wall abscess Status: Acute (4) Diabetes mellitus type 2 in obese Status: Chronic (5) ESRD (end stage renal disease) on dialysis Status: Chronic - Assessment and Plan (Free Text) Plan: Cont meds Cont tx Cont PT Con tHD Monitor labs follow up C and S
[2018-12-16] MEDS: metroNIDAZOLE 500mg/100ml NS 250 MG in Premixed IV 1 EA IVPB SCH ×3 (01:13→16:21)
[2018-12-16] MEDS: Pantoprazole 40 MG in Sodium Chloride 0.9% 100 ML IVPB SCH ×4 (02:30→20:06)
[2018-12-16] MEDS: Insulin Lispro (humaLOG) 100 Units/ml Inj SC SCH ×4 (04:30→21:06)
[2018-12-16 05:42] LABS: HEMOGLOBIN 7.8 g/dL (12.0-18.0); MEAN CORPUSCULAR HEMOGLOBIN 23.6 pg (27.0-31.0); MEAN CORPUSCULAR HGB CONC 32.4 g/dL (33.0-37.0); RBC 3.3 Mil/uL (4.40-5.90); RED CELL DISTRIBUTION WIDTH 19.5 % (11.5-14.5); WHITE BLOOD COUNT 8.9 K/uL (4.8-10.8)
[2018-12-16 06:04] LABS: CALCIUM 7.4 mg/dL (8.4-10.2)
--- NOTE | 2018-12-16 07:22 | CP.PCM.PN ---
Subjective - Date & Time of Evaluation Date of Evaluation: 12/16/18 Time of Evaluation: 07:00 - Subjective Subjective: Patient seen and examined. No acute events over night. Packing from abdominal wound changed, no purulent discharge noted. Patient denies fever/chills, nausea/vomiting, abdominal pain. Objective - Vital Signs/Intake and Output Vital Signs (last 24 hours): Temp Pulse Resp BP Pulse Ox 98.4 F 92 H 16 152/88 H 98 12/16/18 04:00 12/16/18 06:00 12/16/18 06:00 12/16/18 06:00 12/16/18 06:00 Intake and Output: 12/16/18 12/16/18 06:59 18:59 Intake Total 1725 Balance 1725 - Medications Medications: Current Medications Acetaminophen (Tylenol 325mg Tab) 650 mg PO Q6 PRN PRN Reason: pain (1-10) Last Admin: 12/14/18 01:18 Dose: 650 mg Acetaminophen (Tylenol 325mg Tab) 650 mg PO Q6H PRN PRN Reason: Fever >100.4 F Allopurinol (Zyloprim) 100 mg PO DAILY [facility] Last Admin: 12/15/18 13:35 Dose: Not Given Atorvastatin Calcium (Lipitor) 10 mg PO HS [facility] Last Admin: 12/15/18 21:00 Dose: 10 mg Calcitriol (Rocaltrol) 0.25 mcg PO DAILY [facility] Last Admin: 12/15/18 08:02 Dose: Not Given Diphenhydramine HCl (Benadryl) 50 mg IVP Q24H PRN PRN Reason: Allergy symptoms Last Admin: 12/15/18 17:52 Dose: 50 mg Epoetin Mitchell (Procrit) 10,000 unit IV F [facility] Folic Acid (Folic Acid) 1 mg PO DAILY [facility] Last Admin: 12/15/18 08:02 Dose: Not Given Gabapentin (Neurontin) 100 mg PO TID [facility] Last Admin: 12/15/18 16:30 Dose: Not Given Metronidazole 250 mg/ (Miscellaneous) 50 mls @ 50 mls/hr IVPB Q8 [facility]; Protocol Last Admin: 12/16/18 01:13 Dose: 50 mls/hr Pantoprazole Sodium 40 mg/ (Sodium Chloride) 100 mls @ 20 mls/hr IVPB Q5H [facility] Last Admin: 12/16/18 02:30 Dose: 20 mls/hr Fluconazole (Diflucan Iv 100 Mg/50 Ml Ns) 50 mls @ 50 mls/hr IVPB DAILY [facility]; Protocol Last Admin: 12/15/18 08:03 Dose: 50 mls/hr Vancomycin HCl 1 gm/ Sodium (Chloride) 250 mls @ 125 mls/hr IVPB MWF [facility]; Protocol Last Admin: 12/15/18 14:42 Dose: 125 mls/hr Meropenem 500 mg/ Sodium (Chloride) 100 mls @ 100 mls/hr IVPB Q24H [facility]; Protocol Last Admin: 12/15/18 17:52 Dose: 100 mls/hr Sodium Bicarbonate 150 meq/ (Dextrose) 1,150 mls @ 125 mls/hr IV .Q9H12M [facility] Stop: 12/16/18 22:17 Last Admin: 12/15/18 23:00 Dose: 125 mls/hr Insulin Human Lispro (Humalog) 0 units SC Q6H [facility]; Protocol Last Admin: 12/16/18 04:30 Dose: Not Given Lactic Acid (Lac-Hydrin 12% Lotion (225 G)) 1 applic TOP DAILY [facility] Last Admin: 12/15/18 08:02 Dose: 1 applic Methylprednisolone (Solu-Medrol) 40 mg IVP DAILY [facility] Metoclopramide HCl (Reglan) 10 mg IVP Q6 PRN PRN Reason: Nausea/Vomiting Last Admin: 12/14/18 05:00 Dose: 10 mg Ondansetron HCl (Zofran Inj) 4 mg IVP Q6H PRN PRN Reason: Nausea/Vomiting Last Admin: 12/14/18 12:30 Dose: 4 mg Vitamin B Complex/Vit C/Folic Acid (Nephro-Esla) 1 tab PO DAILY [facility] Last Admin: 12/15/18 08:02 Dose: Not Given - Labs Labs: 12/16/18 05:00 12/16/18 05:00 PT 18.1 Seconds (9.8-13.1) H 12/13/18 17:15 INR 1.6 12/13/18 17:15 APTT 39.7 Seconds (25.6-37.1) H 12/13/18 17:15 - Constitutional Appears: No Acute Distress - Head Exam Head Exam: NORMOCEPHALIC - Eye Exam Eye Exam: EOMI, Normal appearance - ENT Exam ENT Exam: Mucous Membranes Moist - Respiratory Exam Respiratory Exam: NORMAL BREATHING PATTERN - GI/Abdominal Exam GI & Abdominal Exam: Soft. absent: Distended, Firm, Guarding, Rigid, Tenderness, Rebound - Neurological Exam Neurological Exam: Alert, Awake - Psychiatric Exam Psychiatric exam: Normal Mood - Skin Skin Exam: Normal Color (superior surgical wound incision, packed with plain packing ), Warm Assessment and Plan - Assessment and Plan (Free Text) Assessment: 47M with intra-abdominal abscess Plan: -Leukocytosis improving -C/w IV ABx per ID -Conservative management -Replete electrolytes prn -Further recs per Dr. Saroj Burgos PGY3
[2018-12-16] MEDS: Sodium Bicarbonate 8.4% 150 MEQ in Dextrose 5% In Water 1,000 ML IV SCH ×2 (07:51→20:07)
[2018-12-16] MEDS: Fluconazole IV 100mg/50 ml NS 50 ML IVPB SCH (09:30)
[2018-12-16] MEDS: Multivitamin Vitamin B Complex (Nephro-Vite) Tab PO SCH (09:33)
--- NOTE | 2018-12-16 09:42 | CP.PCM.PN ---
Subjective - Date & Time of Evaluation Date of Evaluation: 12/16/18 Time of Evaluation: 09:40 - Subjective Subjective: General Surgery Pt seen and examined this AM. He denies having abdominal pain, nausea or vomiting. He denies fevers, chills, CP and SOB. He had his drsg changed this AM with some purulent drainage on packing, (-) odor, nothing was able to be hand expressed as per surgical attendant. Labs and vitals noted. PE Gen: Pt laying in bed in NAD Skin: warm and dry, see below Cardio: s1s2 tachycardic, (-) murmurs Lungs: CTA bilaterally Abd: Soft NTND, surgical incision with minimum drainage on gauze, packing in place. Extr: (-) calf tenderness bilaterally, (+) right foot partial amputation, healing scabbed erythematous rash on bilateral LEs. A/P Abdominal Abscess Continue abx per ID, abscess not drainable as per IR. Drsg changes daily Monitor labs Start clear liquid diet. Objective - Vital Signs/Intake and Output Vital Signs (last 24 hours): Temp Pulse Resp BP Pulse Ox 98.6 F 98 H 12 153/85 H 93 L 12/16/18 08:00 12/16/18 08:00 12/16/18 08:00 12/16/18 08:00 12/16/18 08:00 Intake and Output: 12/16/18 12/16/18 06:59 18:59 Intake Total 1725 Balance 1725 - Medications Medications: Current Medications Acetaminophen (Tylenol 325mg Tab) 650 mg PO Q6 PRN PRN Reason: pain (1-10) Last Admin: 12/14/18 01:18 Dose: 650 mg Acetaminophen (Tylenol 325mg Tab) 650 mg PO Q6H PRN PRN Reason: Fever >100.4 F Allopurinol (Zyloprim) 100 mg PO DAILY [facility] Last Admin: 12/16/18 09:34 Dose: 100 mg Atorvastatin Calcium (Lipitor) 10 mg PO HS [facility] Last Admin: 12/15/18 21:00 Dose: 10 mg Calcitriol (Rocaltrol) 0.25 mcg PO DAILY [facility] Last Admin: 12/16/18 09:33 Dose: 0.25 mcg Diphenhydramine HCl (Benadryl) 50 mg IVP Q24H PRN PRN Reason: Allergy symptoms Last Admin: 12/15/18 17:52 Dose: 50 mg Epoetin Mitchell (Procrit) 10,000 unit IV MWF [facility] Folic Acid (Folic Acid) 1 mg PO DAILY [facility] Last Admin: 12/16/18 09:31 Dose: 1 mg Gabapentin (Neurontin) 100 mg PO TID [facility] Last Admin: 12/16/18 09:33 Dose: 100 mg Metronidazole 250 mg/ (Miscellaneous) 50 mls @ 50 mls/hr IVPB Q8 [facility]; Protocol Last Admin: 12/16/18 09:31 Dose: 50 mls/hr Pantoprazole Sodium 40 mg/ (Sodium Chloride) 100 mls @ 20 mls/hr IVPB Q5H [facility] Last Admin: 12/16/18 07:51 Dose: 20 mls/hr Fluconazole (Diflucan Iv 100 Mg/50 Ml Ns) 50 mls @ 50 mls/hr IVPB DAILY [facility]; Protocol Last Admin: 12/16/18 09:30 Dose: 50 mls/hr Vancomycin HCl 1 gm/ Sodium (Chloride) 250 mls @ 125 [facility]ls[facility]; [facility] Last Admin: 12/15/18 14:42 Dose: 125 mls/hr Meropenem 500 mg/ Sodium (Chloride) 100 mls @ 100 mls/hr IVPB Q24H [facility]; Protocol Last Admin: 12/15/18 17:52 Dose: 100 mls/hr Sodium Bicarbonate 150 meq/ (Dextrose) 1,150 mls @ 125 mls/hr IV .Q9H12M [facility] Stop: 12/16/18 22:17 Last Admin: 12/16/18 07:51 Dose: 125 mls/hr Insulin Human Lispro (Humalog) 0 units SC Q6H [facility]; Protocol Last Admin: 12/16/18 09:32 Dose: 3 unit Lactic Acid (Lac-Hydrin 12% Lotion (225 G)) 1 applic TOP DAILY [facility] Last Admin: 12/16/18 09:32 Dose: 1 applic Methylprednisolone (Solu-Medrol) 40 mg IVP DAILY [facility] Metoclopramide HCl (Reglan) 10 mg IVP Q6 PRN PRN Reason: Nausea/Vomiting Last Admin: 12/14/18 05:00 Dose: 10 mg Ondansetron HCl (Zofran Inj) 4 mg IVP Q6H PRN PRN Reason: Nausea/Vomiting Last Admin: 12/14/18 12:30 Dose: 4 mg Vitamin B Complex/Vit C/Folic Acid (Nephro-Elsa) 1 tab PO DAILY [facility] Last Admin: 12/16/18 09:33 Dose: 1 tab - Labs Labs: 12/16/18 05:00 12/16/18 05:00 PT 18.1 Seconds (9.8-13.1) H 12/13/18 17:15 INR 1.6 12/13/18 17:15 APTT 39.7 Seconds (25.6-37.1) H 12/13/18 17:15
--- NOTE | 2018-12-16 11:00 | CP.PCM.PN ---
<Sultan Seferino - Last Filed: 12/16/18 14:27> Subjective - Date & Time of Evaluation Date of Evaluation: 12/16/18 Time of Evaluation: 10:35 - Subjective Subjective: Patient seen and examined with Dr. Reed in ICU NO acute overnight events Patient reports feeling better. Nausea, vomiting and abdominal pain improved. Denies any chest pain, dyspnea, fever or chills. Stable to transfer to Telemetry or Med/Surg Objective - Vital Signs/Intake and Output Vital Signs (last 24 hours): Temp Pulse Resp BP Pulse Ox 98.6 F 91 H 11 L 152/77 H 98 12/16/18 08:00 12/16/18 10:00 12/16/18 10:00 12/16/18 10:00 12/16/18 10:00 Intake and Output: 12/16/18 12/16/18 06:59 18:59 Intake Total 1725 Balance 1725 - Medications Medications: Current Medications Acetaminophen (Tylenol 325mg Tab) 650 mg PO Q6 PRN PRN Reason: pain (1-10) Last Admin: 12/14/18 01:18 Dose: 650 mg Acetaminophen (Tylenol 325mg Tab) 650 mg PO Q6H PRN PRN Reason: Fever >100.4 F Allopurinol (Zyloprim) 100 mg PO DAILY [facility] Last Admin: 12/16/18 09:34 Dose: 100 mg Atorvastatin Calcium (Lipitor) 10 mg PO HS [facility] Last Admin: 12/15/18 21:00 Dose: 10 mg Calcitriol (Rocaltrol) 0.25 mcg PO DAILY [facility] Last Admin: 12/16/18 09:33 Dose: 0.25 mcg Diphenhydramine HCl (Benadryl) 50 mg IVP Q24H PRN PRN Reason: Allergy symptoms Last Admin: 12/15/18 17:52 Dose: 50 mg Epoetin Mitchell (Procrit) 10,000 unit IV MWF [facility] Folic Acid (Folic Acid) 1 mg PO DAILY [facility] Last Admin: 12/16/18 09:31 Dose: 1 mg Gabapentin (Neurontin) 100 mg PO TID [facility] Last Admin: 12/16/18 09:33 Dose: 100 mg Metronidazole 250 mg/ (Miscellaneous) 50 mls @ 50 mls/hr IVPB Q8 [facility]; Protocol Last Admin: 12/16/18 09:31 Dose: 50 mls/hr Pantoprazole Sodium 40 mg/ (Sodium Chloride) 100 mls @ 20 mls/hr IVPB Q5H [facility] Last Admin: 12/16/18 07:51 Dose: 20 mls/hr Fluconazole (Diflucan Iv 100 Mg/50 Ml Ns) 50 mls @ 50 mls/hr IVPB DAILY [facility]; Protocol Last Admin: 12/16/18 09:30 Dose: 50 mls/hr Vancomycin HCl 1 gm/ Sodium (Chloride) 250 mls @ 125 mls/hr IVPB MWF [facility]; Protocol Last Admin: 12/15/18 14:42 Dose: 125 mls/hr Meropenem 500 mg/ Sodium (Chloride) 100 mls @ 100 mls/hr IVPB Q24H [facility]; Protocol Last Admin: 12/15/18 17:52 Dose: 100 mls/hr Sodium Bicarbonate 150 meq/ (Dextrose) 1,150 mls @ 125 mls/hr IV .Q9H12M [facility] Stop: 12/16/18 22:17 Last Admin: 12/16/18 07:51 Dose: 125 mls/hr Insulin Human Lispro (Humalog) 0 units SC Q6H [facility]; Protocol Last Admin: 12/16/18 09:32 Dose: 3 unit Lactic Acid (Lac-Hydrin 12% Lotion (225 G)) 1 applic TOP DAILY [facility] Last Admin: 12/16/18 09:32 Dose: 1 applic Methylprednisolone (Solu-Medrol) 40 mg IVP DAILY [facility] Metoclopramide HCl (Reglan) 10 mg IVP Q6 PRN PRN Reason: Nausea/Vomiting Last Admin: 12/14/18 05:00 Dose: 10 mg Ondansetron HCl (Zofran Inj) 4 mg IVP Q6H PRN PRN Reason: Nausea/Vomiting Last Admin: 12/14/18 12:30 Dose: 4 mg Vitamin B Complex/Vit C/Folic Acid (Nephro-Elsa) 1 tab PO DAILY [facility] Last Admin: 12/16/18 09:33 Dose: 1 tab - Labs Labs: 12/16/18 05:00 12/16/18 05:00 PT 18.1 Seconds (9.8-13.1) H 12/13/18 17:15 INR 1.6 12/13/18 17:15 APTT 39.7 Seconds (25.6-37.1) H 12/13/18 17:15 - Constitutional Appears: No Acute Distress - Head Exam Head Exam: NORMAL INSPECTION - Eye Exam Eye Exam: Normal appearance - ENT Exam ENT Exam: Mucous Membranes Moist - Respiratory Exam Respiratory Exam: Clear to Ausculation Bilateral, NORMAL BREATHING PATTERN. absent: Rhonchi, Wheezes - Cardiovascular Exam Cardiovascular Exam: REGULAR RHYTHM, +S1, +S2 - GI/Abdominal Exam GI & Abdominal Exam: Soft, Normal Bowel Sounds Additional comments: superior mid abdomen incision wound is packed and wound looks C/D/I. - Extremities Exam Extremities Exam: Normal Inspection. absent: Calf Tenderness - Neurological Exam Neurological Exam: Alert, Awake, Oriented x3 - Psychiatric Exam Psychiatric exam: Normal Affect, Normal Mood - Skin Skin Exam: Normal Color Assessment and Plan (1) Abdominal wall abscess Status: Acute (2) Chronic kidney disease with end stage renal failure on dialysis Status: Chronic (3) Sepsis Status: Acute (4) Acute on chronic renal failure Status: Acute (5) Diabetic gastroparesis Status: Chronic - Assessment and Plan (Free Text) Assessment: 47 yo M with ESRD (HD), s/p significant bowel resection due to ischemic bowel on 11/11/18, developed abdominal abscess admitted on 12/14/18 for abdominal pain, nausea, vomiting and diarrhea. Plan: -ID consult Dr. Elam on board, recs appreciated -c/w current antibiotics: metronidazole 500 mg q8, Meropenem 500 mg q24, Vancomycin 1 mg MWF -General surgery on board, recs appreciated. -Nephrology Dr. Rodríguez on board: HD on MWF -Rest of the plan as ordered -Stable to transfer to Telemetry/MedSurg Patient seen, examined and plan d/w Dr. Derek Gentile, pgy-2 <Liu Reed - Last Filed: 12/16/18 20:47> Objective - Vital Signs/Intake and Output Vital Signs (last 24 hours): Temp Pulse Resp BP Pulse Ox 97.5 F L 94 H 17 141/87 94 L 12/16/18 16:00 12/16/18 16:00 12/16/18 16:00 12/16/18 16:00 12/16/18 16:00 Intake and Output: 12/16/18 12/17/18 18:59 06:59 Intake Total 725 250 Output Total 600 Balance 125 250 - Medications Medications: Current Medications Acetaminophen (Tylenol 325mg Tab) 650 mg PO Q6 PRN PRN Reason: pain (1-10) Last Admin: 12/14/18 01:18 Dose: 650 mg Acetaminophen (Tylenol 325mg Tab) 650 mg PO Q6H PRN PRN Reason: Fever >100.4 F Allopurinol (Zyloprim) 100 mg PO DAILY [facility] Last Admin: 12/16/18 09:34 Dose: 100 mg Atorvastatin Calcium (Lipitor) 10 mg PO HS [facility] Last Admin: 12/15/18 21:00 Dose: 10 mg Calcitriol (Rocaltrol) 0.25 mcg PO DAILY [facility] Last Admin: 12/16/18 09:33 Dose: 0.25 mcg Diphenhydramine HCl (Benadryl) 50 mg IVP Q24H PRN PRN Reason: Allergy symptoms Last Admin: 12/16/18 14:39 Dose: 50 mg Epoetin Mitchell (Procrit) 10,000 unit IV [facility] Folic Acid (Folic Acid) 1 mg PO DAILY [facility] Last Admin: 12/16/18 09:31 Dose: 1 mg Gabapentin (Neurontin) 100 mg PO TID [facility] Last Admin: 12/16/18 16:22 Dose: 100 mg Metronidazole 250 mg/ (Miscellaneous) 50 mls @ 50 mls/hr IVPB Q8 [facility]; Protocol Last Admin: 12/16/18 16:21 Dose: 50 mls/hr Pantoprazole Sodium 40 mg/ (Sodium Chloride) 100 mls @ 20 mls/hr IVPB Q5H [facility] Last Admin: 12/16/18 20:06 Dose: 20 mls/hr Fluconazole (Diflucan Iv 100 Mg/50 Ml Ns) 50 mls @ 50 mls/hr IVPB DAILY [facility]; Protocol Last Admin: 12/16/18 09:30 Dose: 50 mls/hr Vancomycin HCl 1 gm/ Sodium (Chloride) 250 mls @ 125 mls/hr IVPB MWF [facility]; Protocol Last Admin: 12/15/18 14:42 Dose: 125 mls/hr Meropenem 500 mg/ Sodium (Chloride) 100 mls @ 100 mls/hr IVPB Q24H [facility]; Protocol Last Admin: 12/16/18 14:39 Dose: 100 mls/hr Sodium Bicarbonate 150 meq/ (Dextrose) 1,150 mls @ 125 mls/hr IV .Q9H12M [facility] Stop: 12/16/18 22:17 Last Admin: 12/16/18 20:07 Dose: 125 mls/hr Insulin Human Lispro (Humalog) 0 units SC Q6H [facility]; Protocol Last Admin: 12/16/18 14:45 Dose: 3 unit Lactic Acid (Lac-Hydrin 12% Lotion (225 G)) 1 applic TOP DAILY [facility] Last Admin: 12/16/18 09:32 Dose: 1 applic Methylprednisolone (Solu-Medrol) 40 mg IVP DAILY [facility] Last Admin: 12/16/18 14:39 Dose: 40 mg Metoclopramide HCl (Reglan) 10 mg IVP Q6 PRN PRN Reason: Nausea/Vomiting Last Admin: 12/14/18 05:00 Dose: 10 mg Ondansetron HCl (Zofran Inj) 4 mg IVP Q6H PRN PRN Reason: Nausea/Vomiting Last Admin: 12/14/18 12:30 Dose: 4 mg Sevelamer Carbonate (Renvela) 1.6 gm PO TIDWM [facility] Last Admin: 12/16/18 16:22 Dose: 1.6 gm Vitamin B Complex/Vit C/Folic Acid (Nephro-Elsa) 1 tab PO DAILY [facility] Last Admin: 12/16/18 09:33 Dose: 1 tab - Labs Labs: 12/16/18 05:00 12/16/18 05:00 PT 18.1 Seconds (9.8-13.1) H 12/13/18 17:15 INR 1.6 12/13/18 17:15 APTT 39.7 Seconds (25.6-37.1) H 12/13/18 17:15 Assessment and Plan (1) Sepsis Status: Acute (2) Severe dehydration Status: Acute (3) Abdominal wall abscess Status: Acute (4) Diabetes mellitus type 2 in obese Status: Chronic (5) ESRD (end stage renal disease) on dialysis Status: Chronic - Assessment and Plan (Free Text) Plan: I was present during evaluation and discussed with Dr Seferino clayton plans of care and mgt.
[2018-12-16 11:40] LABS: SQUAMOUS EPITHIAL < 1 /hpf (0-5); URINE BACTERIA RARE (<OCC); URINE BILIRUBIN NEGATIVE (NEGATIVE); URINE BLOOD SMALL (NEGATIVE); URINE CLARITY SLIGHTY-CLOUDY (Clear); URINE COLOR YELLOW (YELLOW); URINE GLUCOSE (UA) 150 mg/dL (NEGATIVE); URINE LEUKOCYTE ESTERASE NEG Leu/uL (Negative); URINE PROTEIN 30 mg/dL (NEGATIVE); URINE UROBILINOGEN 0.2-1.0 mg/dL (0.2-1.0)
[2018-12-16] MEDS ORDERED: Lidocaine 1% Inj (20ml) ONE (12:36)
--- NOTE | 2018-12-16 12:52 | CP.PCM.PN ---
Subjective - Date & Time of Evaluation Date of Evaluation: 12/16/18 Time of Evaluation: 12:52 - Subjective Subjective: Patient awake and conscious appears to be feeling much better Vital signs noted to be stable No chest pain Objective - Vital Signs/Intake and Output Vital Signs (last 24 hours): Temp Pulse Resp BP Pulse Ox 98.6 F 91 H 11 L 152/77 H 98 12/16/18 08:00 12/16/18 10:00 12/16/18 10:00 12/16/18 10:00 12/16/18 10:00 Intake and Output: 12/16/18 12/16/18 06:59 18:59 Intake Total 1725 725 Output Total 600 Balance 1725 125 - Medications Medications: Current Medications Acetaminophen (Tylenol 325mg Tab) 650 mg PO Q6 PRN PRN Reason: pain (1-10) Last Admin: 12/14/18 01:18 Dose: 650 mg Acetaminophen (Tylenol 325mg Tab) 650 mg PO Q6H PRN PRN Reason: Fever >100.4 F Allopurinol (Zyloprim) 100 mg PO DAILY [facility] Last Admin: 12/16/18 09:34 Dose: 100 mg Atorvastatin Calcium (Lipitor) 10 mg PO HS [facility] Last Admin: 12/15/18 21:00 Dose: 10 mg Calcitriol (Rocaltrol) 0.25 mcg PO DAILY [facility] Last Admin: 12/16/18 09:33 Dose: 0.25 mcg Diphenhydramine HCl (Benadryl) 50 mg IVP Q24H PRN PRN Reason: Allergy symptoms Last Admin: 12/15/18 17:52 Dose: 50 mg Epoetin Mitchell (Procrit) 10,000 unit IV MWF [facility] Folic Acid (Folic Acid) 1 mg PO DAILY [facility] Last Admin: 12/16/18 09:31 Dose: 1 mg Gabapentin (Neurontin) 100 mg PO TID [facility] Last Admin: 12/16/18 09:33 Dose: 100 mg Metronidazole 250 mg/ (Miscellaneous) 50 mls @ 50 mls/hr IVPB Q8 [facility]; Protocol Last Admin: 12/16/18 09:31 Dose: 50 mls/hr Pantoprazole Sodium 40 mg/ (Sodium Chloride) 100 mls @ 20 mls/hr IVPB Q5H [facility] Last Admin: 12/16/18 07:51 Dose: 20 mls/hr Fluconazole (Diflucan Iv 100 Mg/50 Ml Ns) 50 mls @ 50 mls/hr IVPB DAILY [facility]; Protocol Last Admin: 12/16/18 09:30 Dose: 50 mls/hr Vancomycin HCl 1 gm/ Sodium (Chloride) 250 mls @ 125 mls/hr IVPB MWF [facility]; Protocol Last Admin: 12/15/18 14:42 Dose: 125 mls/hr Meropenem 500 mg/ Sodium (Chloride) 100 mls @ 100 mls/hr IVPB Q24H [facility]; Protocol Last Admin: 12/15/18 17:52 Dose: 100 mls/hr Sodium Bicarbonate 150 meq/ (Dextrose) 1,150 mls @ 125 mls/hr IV .Q9H12M [facility] Stop: 12/16/18 22:17 Last Admin: 12/16/18 07:51 Dose: 125 mls/hr Insulin Human Lispro (Humalog) 0 units SC Q6H [facility]; Protocol Last Admin: 12/16/18 09:32 Dose: 3 unit Lactic Acid (Lac-Hydrin 12% Lotion (225 G)) 1 applic TOP DAILY [facility] Last Admin: 12/16/18 09:32 Dose: 1 applic Methylprednisolone (Solu-Medrol) 40 mg IVP DAILY [facility] Metoclopramide HCl (Reglan) 10 mg IVP Q6 PRN PRN Reason: Nausea/Vomiting Last Admin: 12/14/18 05:00 Dose: 10 mg Ondansetron HCl (Zofran Inj) 4 mg IVP Q6H PRN PRN Reason: Nausea/Vomiting Last Admin: 12/14/18 12:30 Dose: 4 mg Vitamin B Complex/Vit C/Folic Acid (Nephro-Elsa) 1 tab PO DAILY [facility] Last Admin: 12/16/18 09:33 Dose: 1 tab - Labs Labs: 12/16/18 05:00 12/16/18 05:00 PT 18.1 Seconds (9.8-13.1) H 12/13/18 17:15 INR 1.6 12/13/18 17:15 APTT 39.7 Seconds (25.6-37.1) H 12/13/18 17:15 - Constitutional Appears: No Acute Distress - Eye Exam Eye Exam: Conjunctival injection - ENT Exam ENT Exam: Mucous Membranes Moist - Neck Exam Neck Exam: absent: Lymphadenopathy - Respiratory Exam Respiratory Exam: NORMAL BREATHING PATTERN - Cardiovascular Exam Cardiovascular Exam: absent: Gallop, JVD, Rubs - GI/Abdominal Exam GI & Abdominal Exam: Soft, Normal Bowel Sounds - Extremities Exam Extremities Exam: absent: Calf Tenderness - Back Exam Back Exam: absent: CVA tenderness (L), CVA tenderness (R) - Neurological Exam Neurological Exam: Alert - Psychiatric Exam Psychiatric exam: Normal Affect - Skin Skin Exam: absent: Cyanosis Assessment and Plan (1) Chronic kidney disease with end stage renal failure on dialysis Assessment & Plan: End-stage renal disease patient was admitted with what appeared to be sepsis abdominal pain perhaps intra-abdominal sepsis. Leukocytosis ESRD, CVA, HTN, DM, PVD S/P resection for perforated viscous and ischemic bowel 11/11/18, R IJ permacath, R AVF, R TMA Hyperphosphatemia The plan Antibiotics as per renal dose and infectious disease To check serum phosphorus and PTH EPO for the anemia however hemoglobin is very low at the present he may need blood transfusion Phosphorus binder Renvela Status: Acute (2) Abdominal pain Status: Acute (3) Sepsis Status: Acute
--- NOTE | 2018-12-16 12:57 | PCM.SURG1 ---
Surgeon's Initial Post Op Note - Surgeon's Notes Surgeon: Terrence Jiménez MD [employer] Supervisor: NONE Type of Anesthesia: Local Pre-Operative Diagnosis: Infection Operative Findings: US showed a patent left basilic vein Post-Operative Diagnosis: Infection Operation Performed: Single lumen picc placement, 45 cm. Specimen/Specimens Removed: none Estimated Blood Loss: EBL {In ML}: 2 Blood Products Given: N/A Drains Used: No Drains Post-Op Condition: Fair Date of Surgery/Procedure: 12/16/18 Time of Surgery/Procedure: 12:50
--- NOTE | 2018-12-16 13:13 | VASCULAR ---
PROCEDURE: Date of procedure: 12/16/2018 Procedure: 1. Placement of a left arm PICC with ultrasound and fluoroscopic guidance, CPT 90781 2. PICC tip confirmation with spot radiograph and is in the superior vena cava Medications: 1 percent lidocaine Total Fluoro time: 56.6 Seconds Radiation: 12.03 MGy EBL: 3 cc HISTORY: Infection requiring long-term IV antibiotics TECHNIQUE: Following informed consent and procedure time-out, the patient placed supine on the interventional table and the left arm prepped and draped in the usual sterile fashion. Ultrasound showed a patent and compressible left basilic vein. After the skin was anesthetized with lidocaine, the basilic vein was accessed with micro micropuncture technique using ultrasound guidance. A guidewire was then advanced under fluoroscopic guidance into the superior vena cava. An image documenting ultrasound guidance for vascular access was permanently saved. The length of a single-lumen 4 [place] PICC was trimmed to 45 cm and advanced through a peel-away sheath. The PICC was position with tip of PICC confirm a spot radiograph the superior vena cava. The PICC was secured to the patient's skin. The PICC was flushed. A biopatch and sterile dressing was applied. IMPRESSION: Placement of a single-lumen 4 [place] PICC left basilic vein trimmed to 45 cm. The tip of the PICC is confirmed with spot radiograph and is in the superior vena cava.
[2018-12-16] MEDS: MethylPREDNISolone 40 mg Vial IVP SCH (14:39)
[2018-12-16] MEDS: Meropenem 500 MG in Sodium Chloride 0.9% 100 ML IVPB SCH (14:39)
[2018-12-16] MEDS: DiphenhydrAMINE 50 mg/ml Inj IVP PRN (14:39)
[2018-12-16] MEDS: Sevelamer Carb 0.8 gm/Packet PO SCH (16:22)
[2018-12-16] MEDS ORDERED: methylPREDNISolone 40 MG in Sodium Chloride 0.9% 50 ML IVPB ONE (17:13)
--- NOTE | 2018-12-16 19:21 | CP.PCM.PN ---
Subjective - Date & Time of Evaluation Date of Evaluation: 12/16/18 Time of Evaluation: 19:19 - Subjective Subjective: I D NOTE IMPROVING CLINICALLY TOLERATING MEROPENEM CONTINUE SAME COVERAGE Objective - Vital Signs/Intake and Output Vital Signs (last 24 hours): Temp Pulse Resp BP Pulse Ox 97.5 F L 94 H 17 141/87 94 L 12/16/18 16:00 12/16/18 16:00 12/16/18 16:00 12/16/18 16:00 12/16/18 16:00 Intake and Output: 12/16/18 12/17/18 18:59 06:59 Intake Total 725 Output Total 600 Balance 125 - Medications Medications: Current Medications Acetaminophen (Tylenol 325mg Tab) 650 mg PO Q6 PRN PRN Reason: pain (1-10) Last Admin: 12/14/18 01:18 Dose: 650 mg Acetaminophen (Tylenol 325mg Tab) 650 mg PO Q6H PRN PRN Reason: Fever >100.4 F Allopurinol (Zyloprim) 100 mg PO DAILY [facility] Last Admin: 12/16/18 09:34 Dose: 100 mg Atorvastatin Calcium (Lipitor) 10 mg PO HS [facility] Last Admin: 12/15/18 21:00 Dose: 10 mg Calcitriol (Rocaltrol) 0.25 mcg PO DAILY [facility] Last Admin: 12/16/18 09:33 Dose: 0.25 mcg Diphenhydramine HCl (Benadryl) 50 mg IVP Q24H PRN PRN Reason: Allergy symptoms Last Admin: 12/16/18 14:39 Dose: 50 mg Epoetin Mitchell (Procrit) 10,000 unit IV [facility] Folic Acid (Folic Acid) 1 mg PO DAILY [facility] Last Admin: 12/16/18 09:31 Dose: 1 mg Gabapentin (Neurontin) 100 mg PO TID [facility] Last Admin: 12/16/18 16:22 Dose: 100 mg Metronidazole 250 mg/ (Miscellaneous) 50 mls @ 50 mls/hr IVPB Q8 [facility]; Protocol Last Admin: 12/16/18 16:21 Dose: 50 mls/hr Pantoprazole Sodium 40 mg/ (Sodium Chloride) 100 mls @ 20 mls/hr IVPB Q5H [facility] Last Admin: 12/16/18 14:35 Dose: 20 mls/hr Fluconazole (Diflucan Iv 100 Mg/50 Ml Ns) 50 mls @ 50 mls/hr IVPB DAILY [facility]; Protocol Last Admin: 12/16/18 09:30 Dose: 50 mls/hr Vancomycin HCl 1 gm/ Sodium (Chloride) 250 mls @ 125 mls/hr IVPB MWF [facility]; Protocol Last Admin: 12/15/18 14:42 Dose: 125 mls/hr Meropenem 500 mg/ Sodium (Chloride) 100 mls @ 100 mls/hr IVPB Q24H [facility]; Protocol Last Admin: 12/16/18 14:39 Dose: 100 mls/hr Sodium Bicarbonate 150 meq/ (Dextrose) 1,150 mls @ 125 mls/hr IV .Q9H12M [facility] Stop: 12/16/18 22:17 Last Admin: 12/16/18 07:51 Dose: 125 mls/hr Insulin Human Lispro (Humalog) 0 units SC Q6H [facility]; Protocol Last Admin: 12/16/18 14:45 Dose: 3 unit Lactic Acid (Lac-Hydrin 12% Lotion (225 G)) 1 applic TOP DAILY [facility] Last Admin: 12/16/18 09:32 Dose: 1 applic Methylprednisolone (Solu-Medrol) 40 mg IVP DAILY [facility] Last Admin: 12/16/18 14:39 Dose: 40 mg Metoclopramide HCl (Reglan) 10 mg IVP Q6 PRN PRN Reason: Nausea/Vomiting Last Admin: 12/14/18 05:00 Dose: 10 mg Ondansetron HCl (Zofran Inj) 4 mg IVP Q6H PRN PRN Reason: Nausea/Vomiting Last Admin: 12/14/18 12:30 Dose: 4 mg Sevelamer Carbonate (Renvela) 1.6 gm PO TIDWM [facility] Last Admin: 12/16/18 16:22 Dose: 1.6 gm Vitamin B Complex/Vit C/Folic Acid (Nephro-Elsa) 1 tab PO DAILY [facility] Last Admin: 12/16/18 09:33 Dose: 1 tab - Labs Labs: 12/16/18 05:00 12/16/18 05:00 PT 18.1 Seconds (9.8-13.1) H 12/13/18 17:15 INR 1.6 12/13/18 17:15 APTT 39.7 Seconds (25.6-37.1) H 12/13/18 17:15
[2018-12-17] MEDS: metroNIDAZOLE 500mg/100ml NS 250 MG in Premixed IV 1 EA IVPB SCH ×3 (01:00→16:49)
[2018-12-17] MEDS: Pantoprazole 40 MG in Sodium Chloride 0.9% 100 ML IVPB SCH ×2 (01:00→05:41)
--- NOTE | 2018-12-17 02:27 | PN ---
DATE: 12/16/2018 CRITICAL CARE PROGRESS NOTE LOCATION: The patient is in ICU, bed 426. TIME SPENT: 35 minutes. SUBJECTIVE: The patient is seen and evaluated at the bedside. Past medical, surgical, family, social history reviewed. A 47-year-old male with history significant for diabetes mellitus type 2, hypertension, peripheral vascular disease, status post CVA, end-stage renal disease, on hemodialysis three times a week, status post metatarsal amputation, admitted with fever and abdominal discomfort. CT abdomen and pelvis showed a 6 x 4 cm intraabdominal collection in the right lower quadrant, normal appendix, possible enterocolitis. Seen by surgery consult, recommended evacuation of abdominal collection by interventional radiology, cannot be accomplished due to the risk of bowel injury. Currently on antibiotic as recommended by ID consult. Overnight afebrile. Telemetry, sinus rhythm, normotensive. This morning alert, awake, follows commands appropriate. PHYSICAL EXAMINATION: VITAL SIGNS: Temperature 97.4, heart rate 79, blood pressure 159/95, mean arterial pressure 116. Intake 2600, output 500, positive balance 2100, urine 600, status post dialysis. HEAD, EYES, EARS, NOSE AND THROAT: Pupils reactive. Conjunctivae pink. Sclerae white. NECK: Supple. Trachea is central. CHEST: Bilateral breath sounds, clear to auscultation. HEART: Rhythm regular. S1, S2 normal. ABDOMEN: Bowel sounds present. Soft. Mild tenderness in the right lower quadrant. No rebound tenderness. EXTREMITIES: Right lower extremity partial foot amputation. NEUROLOGIC: Oriented to name, place and time. No cranial nerve deficit. No motor deficit. CURRENT MEDICATIONS: Tylenol 650 mg every 6 hours p.r.n., Zyloprim 100 mg p.o. daily, Lipitor 10 mg p.o. at bedtime, calcitriol 0.25 mcg p.o. three times a day, folic acid 1 mg p.o. daily, Neurontin 100 mg p.o. three times daily, Accu-Chek with regular insulin coverage, lactic acid 12% lotion one application topically daily, Reglan 10 mg p.o. every 6 hours p.r.n., Flagyl 250 mg IV every 8 hours, Protonix 40 daily, vancomycin 1 g daily, sodium bicarbonate 110 mEq at 125 mL/hour, Protonix 40 daily. IMPRESSION AND PLAN: 1. Neurologic: Alert and awake, follows commands appropriate. 2. Cardiac: Hypotension, resolved, off Levophed. Normotensive. 3. Pulmonary: No respiratory distress. Chest x-ray shows mild pulmonary vascular congestion. 4. Gastrointestinal: Liver enzymes are normal. 5. Hematology. Leukocytosis, trending down. Anemia of chronic disease, normal platelet count. 6. Endocrine. Diabetes mellitus type 2. Blood sugar 251-275. Continue current coverage. Maintain between 110 and 120. Continue deep venous thrombosis prophylaxis. Keep head of bed 30 degrees up. Pablo Munoz MD
[2018-12-17] MEDS ORDERED: Sodium Bicarbonate 8.4% 150 MEQ in Dextrose 5% In Water 1,000 ML IV SCH (03:45)
[2018-12-17] MEDS: Insulin Lispro (humaLOG) 100 Units/ml Inj SC SCH ×4 (05:40→23:32)
[2018-12-17] MEDS: Fluconazole IV 100mg/50 ml NS 50 ML IVPB SCH (09:03)
[2018-12-17] MEDS: Multivitamin Vitamin B Complex (Nephro-Vite) Tab PO SCH (09:05)
[2018-12-17] MEDS: Sevelamer Carb 0.8 gm/Packet PO SCH ×3 (09:06→16:51)
[2018-12-17] MEDS: Pantoprazole 40 mg EC Tab PO SCH (09:08)
--- NOTE | 2018-12-17 10:54 | CP.PCM.PN ---
Subjective - Date & Time of Evaluation Date of Evaluation: 12/17/18 Time of Evaluation: 10:53 - Subjective Subjective: General Surgery Pt seen and examined this AM. He reports every time he takes his clear liquids he has a watery BM. Denies having any abdominal pain. (-) N/V. Afebrile. Currently receiving HD. Pt had PICC line placed yesterday. Labs (no new today) and vitals noted. PE Gen: Pt laying in bed in NAD. Obese Skin: warm and dry, see below Cardio: s1s2 RRR, (-) murmurs Lungs: CTA bilaterally Abd: Soft NTND, surgical incision with minimum purulent drainage on packing and gauze Extr: (-) calf tenderness bilaterally, (+) right foot partial amputation, healing scabbed erythematous rash on bilateral LEs. A/P Abdominal Abscess Drsg changed today by me. Continue abx per ID, abscess not drainable as per IR. 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 Start solid diet. Electrolyte management as per medicine and renal. Objective - Vital Signs/Intake and Output Vital Signs (last 24 hours): Temp Pulse Resp BP Pulse Ox 98.5 F 80 22 156/81 H 99 12/17/18 08:00 12/17/18 08:00 12/17/18 08:00 12/17/18 08:00 12/17/18 08:00 Intake and Output: 12/17/18 12/17/18 06:59 18:59 Intake Total 250 Balance 250 - Medications Medications: Current Medications Acetaminophen (Tylenol 325mg Tab) 650 mg PO Q6 PRN PRN Reason: pain (1-10) Last Admin: 12/14/18 01:18 Dose: 650 mg Acetaminophen (Tylenol 325mg Tab) 650 mg PO Q6H PRN PRN Reason: Fever >100.4 F Allopurinol (Zyloprim) 100 mg PO DAILY [facility] Last Admin: 12/17/18 09:07 Dose: 100 mg Atorvastatin Calcium (Lipitor) 10 mg PO HS [facility] Last Admin: 12/16/18 21:05 Dose: 10 mg Calcitriol (Rocaltrol) 0.25 mcg PO DAILY [facility] Last Admin: 12/17/18 09:06 Dose: 0.25 mcg Diphenhydramine HCl (Benadryl) 50 mg IVP Q24H PRN PRN Reason: Allergy symptoms Last Admin: 12/16/18 14:39 Dose: 50 mg Epoetin Mitchell (Procrit) 10,000 unit IV MWF [facility] Folic Acid (Folic Acid) 1 mg PO DAILY [facility] Last Admin: 12/17/18 09:05 Dose: 1 mg Gabapentin (Neurontin) 100 mg PO TID [facility] Last Admin: 12/17/18 09:06 Dose: 100 mg Metronidazole 250 mg/ (Miscellaneous) 50 mls @ 50 mls/hr IVPB Q8 [facility]; Protocol Last Admin: 12/17/18 09:04 Dose: 50 mls/hr Vancomycin HCl 1 gm/ Sodium (Chloride) 250 mls @ 125 mls/hr IVPB MWF [facility]; Protocol Last Admin: 12/15/18 14:42 Dose: 125 mls/hr Meropenem 500 mg/ Sodium (Chloride) 100 mls @ 100 mls/hr IVPB Q24H [facility]; Protocol Last Admin: 12/16/18 14:39 Dose: 100 mls/hr Sodium Bicarbonate 150 meq/ (Dextrose) 1,150 mls @ 125 mls/hr IV .Q9H12M [facility] Stop: 12/18/18 03:45 Last Admin: 12/17/18 05:36 Dose: 125 mls/hr Insulin Human Lispro (Humalog) 0 units SC Q6H [facility]; Protocol Last Admin: 12/17/18 09:32 Dose: 2 unit Lactic Acid (Lac-Hydrin 12% Lotion (225 G)) 1 applic TOP DAILY [facility] Last Admin: 12/17/18 09:05 Dose: 1 applic Loperamide HCl (Imodium) 2 mg PO Q6 [facility] Methylprednisolone (Solu-Medrol) 40 mg IVP DAILY [facility] Last Admin: 12/16/18 14:39 Dose: 40 mg Metoclopramide HCl (Reglan) 10 mg IVP Q6 PRN PRN Reason: Nausea/Vomiting Last Admin: 12/14/18 05:00 Dose: 10 mg Ondansetron HCl (Zofran Inj) 4 mg IVP Q6H PRN PRN Reason: Nausea/Vomiting Last Admin: 12/14/18 12:30 Dose: 4 mg Pantoprazole Sodium (Protonix Ec Tab) 40 mg PO DAILY [facility] Last Admin: 12/17/18 09:08 Dose: 40 mg Sevelamer Carbonate (Renvela) 1.6 gm PO TIDWM [facility] Last Admin: 12/17/18 09:06 Dose: 1.6 gm Vitamin B Complex/Vit C/Folic Acid (Nephro-Elsa) 1 tab PO DAILY [facility] Last Admin: 12/17/18 09:05 Dose: 1 tab - Labs Labs: 12/16/18 05:00 12/16/18 05:00 PT 18.1 Seconds (9.8-13.1) H 12/13/18 17:15 INR 1.6 12/13/18 17:15 APTT 39.7 Seconds (25.6-37.1) H 12/13/18 17:15
--- NOTE | 2018-12-17 11:44 | CP.PCM.PN ---
<Jolanta Barnard - Last Filed: 12/17/18 11:45> Subjective - Date & Time of Evaluation Date of Evaluation: 12/17/18 Time of Evaluation: 09:00 - Subjective Subjective: No acute overnight events. Pt waiting for bed for transfer out of ICU Seen and examined by bedside this AM. Currently getting HD. Objective - Vital Signs/Intake and Output Vital Signs (last 24 hours): Temp Pulse Resp BP Pulse Ox 98.5 F 80 22 156/81 H 99 12/17/18 08:00 12/17/18 08:00 12/17/18 08:00 12/17/18 08:00 12/17/18 08:00 Intake and Output: 12/17/18 12/17/18 06:59 18:59 Intake Total 250 Balance 250 - Medications Medications: Current Medications Acetaminophen (Tylenol 325mg Tab) 650 mg PO Q6 PRN PRN Reason: pain (1-10) Last Admin: 12/14/18 01:18 Dose: 650 mg Acetaminophen (Tylenol 325mg Tab) 650 mg PO Q6H PRN PRN Reason: Fever >100.4 F Allopurinol (Zyloprim) 100 mg PO DAILY [facility] Last Admin: 12/17/18 09:07 Dose: 100 mg Atorvastatin Calcium (Lipitor) 10 mg PO HS [facility] Last Admin: 12/16/18 21:05 Dose: 10 mg Calcitriol (Rocaltrol) 0.25 mcg PO DAILY [facility] Last Admin: 12/17/18 09:06 Dose: 0.25 mcg Diphenhydramine HCl (Benadryl) 50 mg IVP Q24H PRN PRN Reason: Allergy symptoms Last Admin: 12/16/18 14:39 Dose: 50 mg Epoetin Mitchell (Procrit) 10,000 unit IV MWF [facility] Folic Acid (Folic Acid) 1 mg PO DAILY [facility] Last Admin: 12/17/18 09:05 Dose: 1 mg Gabapentin (Neurontin) 100 mg PO TID [facility] Last Admin: 12/17/18 09:06 Dose: 100 mg Metronidazole 250 mg/ (Miscellaneous) 50 mls @ 50 mls/hr IVPB Q8 [facility]; Protocol Last Admin: 12/17/18 09:04 Dose: 50 mls/hr Vancomycin HCl 1 gm/ Sodium (Chloride) 250 mls @ 125 mls/hr IVPB MWF [facility]; Protocol Last Admin: 12/15/18 14:42 Dose: 125 mls/hr Meropenem 500 mg/ Sodium (Chloride) 100 mls @ 100 mls/hr IVPB Q24H [facility]; Susannah col Last Admin: 12/16/18 14:39 Dose: 100 mls/hr Sodium Bicarbonate 150 meq/ (Dextrose) 1,150 mls @ 125 mls/hr IV .Q9H12M [facility] Stop: 12/18/18 03:45 Last Admin: 12/17/18 05:36 Dose: 125 mls/hr Insulin Human Lispro (Humalog) 0 units SC Q6H [facility]; Protocol Last Admin: 12/17/18 09:32 Dose: 2 unit Lactic Acid (Lac-Hydrin 12% Lotion (225 G)) 1 applic TOP DAILY [facility] Last Admin: 12/17/18 09:05 Dose: 1 applic Loperamide HCl (Imodium) 2 mg PO Q6 [facility] Methylprednisolone (Solu-Medrol) 40 mg IVP DAILY [facility] Last Admin: 12/16/18 14:39 Dose: 40 mg Metoclopramide HCl (Reglan) 10 mg IVP Q6 PRN PRN Reason: Nausea/Vomiting Last Admin: 12/14/18 05:00 Dose: 10 mg Ondansetron HCl (Zofran Inj) 4 mg IVP Q6H PRN PRN Reason: Nausea/Vomiting Last Admin: 12/14/18 12:30 Dose: 4 mg Pantoprazole Sodium (Protonix Ec Tab) 40 mg PO DAILY [facility] Last Admin: 12/17/18 09:08 Dose: 40 mg Sevelamer Carbonate (Renvela) 1.6 gm PO TIDWM [facility] Last Admin: 12/17/18 09:06 Dose: 1.6 gm Vitamin B Complex/Vit C/Folic Acid (Nephro-Elsa) 1 tab PO DAILY [facility] Last Admin: 12/17/18 09:05 Dose: 1 tab - Labs Labs: 12/16/18 05:00 12/16/18 05:00 PT 18.1 Seconds (9.8-13.1) H 12/13/18 17:15 INR 1.6 12/13/18 17:15 APTT 39.7 Seconds (25.6-37.1) H 12/13/18 17:15 - Constitutional Appears: No Acute Distress, Other (currently getting HD) - Head Exam Head Exam: NORMAL INSPECTION - ENT Exam ENT Exam: Mucous Membranes Moist - Respiratory Exam Respiratory Exam: Clear to Ausculation Bilateral. absent: Wheezes - Cardiovascular Exam Cardiovascular Exam: REGULAR RHYTHM, +S1, +S2 - GI/Abdominal Exam GI & Abdominal Exam: Soft, Normal Bowel Sounds Additional comments: superior mid abdomen incision wound is packed and wound looks C/D/I. - Extremities Exam Extremities Exam: Normal Inspection. absent: Calf Tenderness, Pedal Edema - Neurological Exam Neurological Exam: Alert, Awake Assessment and Plan - Assessment and Plan (Free Text) Assessment: Assessment/Plan: 47 YO Male with PMHx of ESRD (HD), s/p significant bowel resection due to ischemic bowel on 11/11/18, developed abdominal abscess admitted on 12/14/18 for abdominal pain, nausea, vomiting and diarrhea. -ID on consult, c/w abx metronidazole 500 mg q8, Meropenem 500 mg q24, Vancomycin 1 mg MWF -General surgery on board, recs appreciated. -Nephrology Dr. Rodríguez on board: HD on MWF -plan as ordered -Stable to transfer to [facility] [place] <Liu Reed - Last Filed: 12/18/18 15:00> Objective - Vital Signs/Intake and Output Vital Signs (last 24 hours): Temp Pulse Resp BP Pulse Ox 98.2 F 83 20 170/92 H 96 12/18/18 00:56 12/18/18 00:56 12/18/18 00:56 12/18/18 00:56 12/18/18 00:56 Intake and Output: 12/18/18 12/18/18 06:59 18:59 Intake Total 230 Balance 230 - Medications Medications: Current Medications Acetaminophen (Tylenol 325mg Tab) 650 mg PO Q6 PRN PRN Reason: pain (1-10) Last Admin: 12/14/18 01:18 Dose: 650 mg Acetaminophen (Tylenol 325mg Tab) 650 mg PO Q6H PRN PRN Reason: Fever >100.4 F Allopurinol (Zyloprim) 100 mg PO DAILY [facility] Last Admin: 12/18/18 08:17 Dose: 100 mg Atorvastatin Calcium (Lipitor) 10 mg PO HS [facility] Last Admin: 12/17/18 23:34 Dose: 10 mg Calcitriol (Rocaltrol) 0.25 mcg PO DAILY [facility] Last Admin: 12/18/18 08:17 Dose: 0.25 mcg Diphenhydramine HCl (Benadryl) 50 mg IVP Q24H PRN PRN Reason: Allergy symptoms Last Admin: 12/17/18 14:06 Dose: 50 mg Epoetin Mitchell (Procrit) 10,000 unit IV MWF [facility] Last Admin: 12/17/18 12:12 Dose: 10,000 unit Folic Acid (Folic Acid) 1 mg PO DAILY [facility] Last Admin: 12/18/18 08:16 Dose: 1 mg Gabapentin (Neurontin) 100 mg PO TID [facility] Last Admin: 12/18/18 12:28 Dose: 100 mg Metronidazole 250 mg/ (Miscellaneous) 50 mls @ 50 mls/hr IVPB Q8 [facility]; Protocol Last Admin: 12/18/18 08:15 Dose: 50 mls/hr Vancomycin HCl 1 gm/ Sodium (Chloride) 250 mls @ 125 mls/hr IVPB MWF [facility]; Protocol Last Admin: 12/17/18 16:59 Dose: 125 mls/hr Meropenem 500 mg/ Sodium (Chloride) 100 mls @ 100 mls/hr IVPB Q24H [facility]; Protoco l Last Admin: 12/17/18 14:15 Dose: 100 mls/hr Insulin Detemir (Levemir) 5 units SC [facility] Insulin Human Lispro (Humalog) 0 units SC Q6H [facility]; Protocol Last Admin: 12/18/18 09:47 Dose: 1 unit Lactic Acid (Lac-Hydrin 12% Lotion (225 G)) 1 applic TOP DAILY [facility] Last Admin: 12/18/18 08:16 Dose: 1 applic Loperamide HCl (Imodium) 2 mg PO Q6 [facility] Last Admin: 12/18/18 09:48 Dose: 2 mg Methylprednisolone (Solu-Medrol) 40 mg IVP DAILY [facility] Last Admin: 12/17/18 14:03 Dose: 40 mg Metoclopramide HCl (Reglan) 10 mg IVP Q6 PRN PRN Reason: Nausea/Vomiting Last Admin: 12/14/18 05:00 Dose: 10 mg Ondansetron HCl (Zofran Inj) 4 mg IVP Q6H PRN PRN Reason: Nausea/Vomiting Last Admin: 12/14/18 12:30 Dose: 4 mg Pantoprazole Sodium (Protonix Ec Tab) 40 mg PO DAILY [facility] Last Admin: 12/18/18 08:17 Dose: 40 mg Potassium Chloride (K-Dur 20 Meq Er Tab) 20 meq PO DAILY [facility] Sevelamer Carbonate (Renvela) 1.6 gm PO TIDWM [facility] Last Admin: 12/18/18 12:28 Dose: 1.6 gm Vitamin B Complex/Vit C/Folic Acid (Nephro-Elsa) 1 tab PO DAILY [facility] Last Admin: 12/18/18 08:16 Dose: 1 tab - Labs Labs: 12/18/18 04:30 12/18/18 04:30 PT 18.1 Seconds (9.8-13.1) H 12/13/18 17:15 INR 1.6 12/13/18 17:15 APTT 39.7 Seconds (25.6-37.1) H 12/13/18 17:15 Assessment and Plan (1) Sepsis Status: Acute (2) Severe dehydration Status: Acute (3) Abdominal wall abscess Status: Acute (4) Diabetes mellitus type 2 in obese Status: Chronic (5) ESRD (end stage renal disease) on dialysis Status: Chronic - Assessment and Plan (Free Text) Plan: I was present during evaluation and discussed with Dr Evon clayton plans of care and mgt. Liu Reed M.D.
[2018-12-17] MEDS: EPOETIN ALFA 10,000 UNIT/ML ML IV SCH (12:12)
--- NOTE | 2018-12-17 12:48 | CP.PCM.PN ---
Subjective - Date & Time of Evaluation Date of Evaluation: 12/17/18 Time of Evaluation: 12:48 - Subjective Subjective: Dialysis note He was seen on hemodialysis Vital signs stable patient feeling good. Serum bath 2 mEq Bicarbonate bath 34 Discussed with the dialysis nurse DC sodium bicarbonate CO2 going up 26 Objective - Vital Signs/Intake and Output Vital Signs (last 24 hours): Temp Pulse Resp BP Pulse Ox 98.6 F 70 20 178/101 H 99 12/17/18 12:00 12/17/18 12:00 12/17/18 12:00 12/17/18 12:00 12/17/18 12:00 Intake and Output: 12/17/18 12/17/18 06:59 18:59 Intake Total 250 Balance 250 - Medications Medications: Current Medications Acetaminophen (Tylenol 325mg Tab) 650 mg PO Q6 PRN PRN Reason: pain (1-10) Last Admin: 12/14/18 01:18 Dose: 650 mg Acetaminophen (Tylenol 325mg Tab) 650 mg PO Q6H PRN PRN Reason: Fever >100.4 F Allopurinol (Zyloprim) 100 mg PO DAILY [facility] Last Admin: 12/17/18 09:07 Dose: 100 mg Atorvastatin Calcium (Lipitor) 10 mg PO HS [facility] Last Admin: 12/16/18 21:05 Dose: 10 mg Calcitriol (Rocaltrol) 0.25 mcg PO DAILY [facility] Last Admin: 12/17/18 09:06 Dose: 0.25 mcg Diphenhydramine HCl (Benadryl) 50 mg IVP Q24H PRN PRN Reason: Allergy symptoms Last Admin: 12/16/18 14:39 Dose: 50 mg Epoetin Mitchell (Procrit) 10,000 unit IV MWF [facility] Last Admin: 12/17/18 12:12 Dose: 10,000 unit Folic Acid (Folic Acid) 1 mg PO DAILY [facility] Last Admin: 12/17/18 09:05 Dose: 1 mg Gabapentin (Neurontin) 100 mg PO TID [facility] Last Admin: 12/17/18 12:10 Dose: Not Given Metronidazole 250 mg/ (Miscellaneous) 50 mls @ 50 mls/hr IVPB Q8 [facility]; Protocol Last Admin: 12/17/18 09:04 Dose: 50 mls/hr Vancomycin HCl 1 gm/ Sodium (Chloride) 250 mls @ 125 mls/hr IVPB MWF [facility]; Protocol Last Admin: 12/15/18 14:42 Dose: 125 mls/hr Meropenem 500 mg/ Sodium (Chloride) 100 mls @ 100 mls/hr IVPB Q24H [facility]; Protocol Last Admin: 12/16/18 14:39 Dose: 100 mls/hr Sodium Bicarbonate 150 meq/ (Dextrose) 1,150 mls @ 125 mls/hr IV .Q9H12M [facility] Stop: 12/18/18 03:45 Last Admin: 12/17/18 05:36 Dose: 125 mls/hr Insulin Human Lispro (Humalog) 0 units SC Q6H [facility]; Protocol Last Admin: 12/17/18 09:32 Dose: 2 unit Lactic Acid (Lac-Hydrin 12% Lotion (225 G)) 1 applic TOP DAILY [facility] Last Admin: 12/17/18 09:05 Dose: 1 applic Loperamide HCl (Imodium) 2 mg PO Q6 [facility] Methylprednisolone (Solu-Medrol) 40 mg IVP DAILY [facility] Last Admin: 12/16/18 14:39 Dose: 40 mg Metoclopramide HCl (Reglan) 10 mg IVP Q6 PRN PRN Reason: Nausea/Vomiting Last Admin: 12/14/18 05:00 Dose: 10 mg Ondansetron HCl (Zofran Inj) 4 mg IVP Q6H PRN PRN Reason: Nausea/Vomiting Last Admin: 12/14/18 12:30 Dose: 4 mg Pantoprazole Sodium (Protonix Ec Tab) 40 mg PO DAILY [facility] Last Admin: 12/17/18 09:08 Dose: 40 mg Sevelamer Carbonate (Renvela) 1.6 gm PO TIDWM [facility] Last Admin: 12/17/18 12:12 Dose: Not Given Vitamin B Complex/Vit C/Folic Acid (Nephro-Elsa) 1 tab PO DAILY [facility] Last Admin: 12/17/18 09:05 Dose: 1 tab - Labs Labs: 12/16/18 05:00 12/16/18 05:00 PT 18.1 Seconds (9.8-13.1) H 12/13/18 17:15 INR 1.6 12/13/18 17:15 APTT 39.7 Seconds (25.6-37.1) H 12/13/18 17:15 - Constitutional Appears: No Acute Distress - Eye Exam Eye Exam: Conjunctival injection - ENT Exam ENT Exam: Mucous Membranes Moist - Neck Exam Neck Exam: absent: Lymphadenopathy - Respiratory Exam Respiratory Exam: Chest Wall Tenderness, NORMAL BREATHING PATTERN - Cardiovascular Exam Cardiovascular Exam: absent: Gallop, JVD, Rubs - GI/Abdominal Exam GI & Abdominal Exam: Soft, Normal Bowel Sounds - Extremities Exam Extremities Exam: absent: Calf Tenderness - Back Exam Back Exam: absent: CVA tenderness (L), CVA tenderness (R) - Neurological Exam Neurological Exam: Alert - Psychiatric Exam Psychiatric exam: Normal Affect - Skin Skin Exam: absent: Cyanosis Assessment and Plan (1) Chronic kidney disease with end stage renal failure on dialysis Assessment & Plan: End-stage renal disease patient receiving hemodialysis now Abdominal abscess Leukocytosis ESRD, CVA, HTN, DM, PVD SB resection for perforated viscous and ischemic bowel 11/11/18, R IJ permacath, R AVF, R TMA The plan Patient tolerating hemodialysis well Discussed with the dialysis nurse at the bedside to remove 2500 cc of fluid pressure 150 x 9o Status: Chronic (2) Abdominal pain Status: Acute (3) Sepsis Status: Acute
[2018-12-17] MEDS: MethylPREDNISolone 40 mg Vial IVP SCH (14:03)
[2018-12-17] MEDS: DiphenhydrAMINE 50 mg/ml Inj IVP PRN (14:06)
[2018-12-17] MEDS: Meropenem 500 MG in Sodium Chloride 0.9% 100 ML IVPB SCH (14:15)
[2018-12-18] MEDS: metroNIDAZOLE 500mg/100ml NS 250 MG in Premixed IV 1 EA IVPB SCH ×3 (01:40→16:11)
[2018-12-18] MEDS: Insulin Lispro (humaLOG) 100 Units/ml Inj SC SCH ×4 (04:58→21:51)
[2018-12-18 05:31] LABS: BASO % 0.1 % (0.0-2.0); HEMOGLOBIN 8.7 g/dL (12.0-18.0); LYMPH % 7.8 % (20.0-40.0); MEAN CELL VOLUME 74.6 fl (80.0-94.0); MEAN CORPUSCULAR HEMOGLOBIN 23.4 pg (27.0-31.0); MEAN CORPUSCULAR HGB CONC 31.4 g/dL (33.0-37.0); MEAN PLATELET VOLUME 6.9 fl (7.2-11.7); MONO # 0.6 K/uL (0.0-0.8); MONO % 4.6 % (0.0-10.0); NEUT # 10.7 K/uL (1.8-7.0); NEUT % 87.5 % (50.0-75.0); PLATELET COUNT 364 K/uL (130-400); RBC 3.73 Mil/uL (4.40-5.90); RED CELL DISTRIBUTION WIDTH 19.6 % (11.5-14.5); WHITE BLOOD COUNT 12.2 K/uL (4.8-10.8)
[2018-12-18 05:46] LABS: CALCIUM 7.3 mg/dL (8.4-10.2)
[2018-12-18 06:45] LABS: LYMPHOCYTE 9 % (20-50); MONOCYTE 6 % (0-10); NEUTROPHIL 85 % (42-75); PLATELET ESTIMATE NORMAL (NORMAL); TOTAL CELLS COUNTED 100
[2018-12-18 06:46] LABS: ANISOCYTOSIS SLIGHT; OVALOCYTES SLIGHT; POIKILOCYTOSIS SLIGHT; SPHEROCYTES SLIGHT
[2018-12-18] MEDS ORDERED: Potassium Chloride 20 mEq ER Tab PO ONE (08:07)
[2018-12-18] MEDS: Multivitamin Vitamin B Complex (Nephro-Vite) Tab PO SCH (08:16)
[2018-12-18] MEDS: Sevelamer Carb 0.8 gm/Packet PO SCH ×3 (08:17→16:15)
[2018-12-18] MEDS: Pantoprazole 40 mg EC Tab PO SCH (08:17)
--- NOTE | 2018-12-18 09:24 | CP.PCM.PN ---
Subjective - Date & Time of Evaluation Date of Evaluation: 12/18/18 Time of Evaluation: 09:24 - Subjective Subjective: Patient awake and conscious not in acute distress Vital signs noted to be stable Objective - Vital Signs/Intake and Output Vital Signs (last 24 hours): Temp Pulse Resp BP Pulse Ox 98.2 F 83 20 170/92 H 96 12/18/18 00:56 12/18/18 00:56 12/18/18 00:56 12/18/18 00:56 12/18/18 00:56 Intake and Output: 12/18/18 12/18/18 06:59 18:59 Intake Total 230 Balance 230 - Medications Medications: Current Medications Acetaminophen (Tylenol 325mg Tab) 650 mg PO Q6 PRN PRN Reason: pain (1-10) Last Admin: 12/14/18 01:18 Dose: 650 mg Acetaminophen (Tylenol 325mg Tab) 650 mg PO Q6H PRN PRN Reason: Fever >100.4 F Allopurinol (Zyloprim) 100 mg PO DAILY [facility] Last Admin: 12/18/18 08:17 Dose: 100 mg Atorvastatin Calcium (Lipitor) 10 mg PO HS [facility] Last Admin: 12/17/18 23:34 Dose: 10 mg Calcitriol (Rocaltrol) 0.25 mcg PO DAILY [facility] Last Admin: 12/18/18 08:17 Dose: 0.25 mcg Diphenhydramine HCl (Benadryl) 50 mg IVP Q24H PRN PRN Reason: Allergy symptoms Last Admin: 12/17/18 14:06 Dose: 50 mg Epoetin Mitchell (Procrit) 10,000 unit IV MWF [facility] Last Admin: 12/17/18 12:12 Dose: 10,000 unit Folic Acid (Folic Acid) 1 mg PO DAILY [facility] Last Admin: 12/18/18 08:16 Dose: 1 mg Gabapentin (Neurontin) 100 mg PO TID [facility] Last Admin: 12/18/18 08:16 Dose: 100 mg Metronidazole 250 mg/ (Miscellaneous) 50 mls @ 50 mls/hr IVPB Q8 [facility]; Protocol Last Admin: 12/18/18 08:15 Dose: 50 mls/hr Vancomycin HCl 1 gm/ Sodium (Chloride) 250 mls @ 125 mls/hr IVPB MWF [facility]; Protocol Last Admin: 12/17/18 16:59 Dose: 125 mls/hr Meropenem 500 mg/ Sodium (Chloride) 100 mls @ 100 mls/hr IVPB Q24H [facility]; Protocol Last Admin: 12/17/18 14:15 Dose: 100 mls/hr Insulin Human Lispro (Humalog) 0 units SC Q6H [facility]; Protocol Last Admin: 12/18/18 04:58 Dose: 3 unit Lactic Acid (Lac-Hydrin 12% Lotion (225 G)) 1 applic TOP DAILY [facility] Last Admin: 12/18/18 08:16 Dose: 1 applic Loperamide HCl (Imodium) 2 mg PO Q6 [facility] Last Admin: 12/18/18 04:57 Dose: 2 mg Methylprednisolone (Solu-Medrol) 40 mg IVP DAILY [facility] Last Admin: 12/17/18 14:03 Dose: 40 mg Metoclopramide HCl (Reglan) 10 mg IVP Q6 PRN PRN Reason: Nausea/Vomiting Last Admin: 12/14/18 05:00 Dose: 10 mg Ondansetron HCl (Zofran Inj) 4 mg IVP Q6H PRN PRN Reason: Nausea/Vomiting Last Admin: 12/14/18 12:30 Dose: 4 mg Pantoprazole Sodium (Protonix Ec Tab) 40 mg PO DAILY [facility] Last Admin: 12/18/18 08:17 Dose: 40 mg Sevelamer Carbonate (Renvela) 1.6 gm PO TIDWM [facility] Last Admin: 12/18/18 08:17 Dose: 1.6 gm Vitamin B Complex/Vit C/Folic Acid (Nephro-Elsa) 1 tab PO DAILY [facility] Last Admin: 12/18/18 08:16 Dose: 1 tab - Labs Labs: 12/18/18 04:30 12/18/18 04:30 PT 18.1 Seconds (9.8-13.1) H 12/13/18 17:15 INR 1.6 12/13/18 17:15 APTT 39.7 Seconds (25.6-37.1) H 12/13/18 17:15 - Constitutional Appears: No Acute Distress - Eye Exam Eye Exam: absent: Conjunctival injection - ENT Exam ENT Exam: Mucous Membranes Moist - Neck Exam Neck Exam: absent: Lymphadenopathy - Respiratory Exam Respiratory Exam: NORMAL BREATHING PATTERN. absent: Chest Wall Tenderness, Rhonchi - Cardiovascular Exam Cardiovascular Exam: REGULAR RHYTHM. absent: Gallop, JVD, Rubs - GI/Abdominal Exam GI & Abdominal Exam: Normal Bowel Sounds. absent: Soft - Extremities Exam Extremities Exam: absent: Calf Tenderness - Back Exam Back Exam: absent: CVA tenderness (L), CVA tenderness (R) - Neurological Exam Neurological Exam: Alert - Psychiatric Exam Psychiatric exam: Normal Affect - Skin Skin Exam: absent: Cyanosis Assessment and Plan (1) Chronic kidney disease with end stage renal failure on dialysis Assessment & Plan: End-stage renal disease patient was admitted with what appeared to be sepsis Abdominal abscess Leukocytosis Hyperphosphatemia ESRD, CVA, HTN, DM, PVD S/P resection for perforated viscous and ischemic bowel 11/11/18, R IJ permacath, R AVF, R TMA The plan Patient doing much better Patient is awake and conscious Antibiotics as per ID the primary team Continue phosphorus binder EPO for anemia Hemodialysis Saturday Status: Chronic (2) Abdominal pain Status: Acute (3) Sepsis Status: Acute
--- NOTE | 2018-12-18 09:44 | CP.PCM.PN ---
Subjective - Date & Time of Evaluation Date of Evaluation: 12/18/18 Time of Evaluation: 09:41 - Subjective Subjective: General Surgery Pt seen and examined this AM. He reports feeling well and ambulating yesterday. He denies any abdominal pain and that his diarrhea has decreased. He reports tolerating his solid diet. Dressing changed this AM by surgical residents. Labs and vitals noted. Pt continues with hypoK. Last mag was also Low. (medicine was made aware) PE Gen: Pt laying in bed in NAD. Obese Skin: warm and dry, see below Cardio: s1s2 RRR, (-) murmurs Lungs: CTA bilaterally Abd: Soft NTND, surgical incision with clean packing and gauze Extr: (-) calf tenderness bilaterally, (+) right foot partial amputation, healing scabbed erythematous rash on bilateral LEs. A/P Abdominal Abscess Continue abx per ID, abscess not drainable as per IR. Drsg changes daily Electrolyte management as per medicine and renal. Pt cleared for discharge from surgical point of view. Objective - Vital Signs/Intake and Output Vital Signs (last 24 hours): Temp Pulse Resp BP Pulse Ox 98.2 F 83 20 170/92 H 96 12/18/18 00:56 12/18/18 00:56 12/18/18 00:56 12/18/18 00:56 12/18/18 00:56 Intake and Output: 12/18/18 12/18/18 06:59 18:59 Intake Total 230 Balance 230 - Medications Medications: Current Medications Acetaminophen (Tylenol 325mg Tab) 650 mg PO Q6 PRN PRN Reason: pain (1-10) Last Admin: 12/14/18 01:18 Dose: 650 mg Acetaminophen (Tylenol 325mg Tab) 650 mg PO Q6H PRN PRN Reason: Fever >100.4 F Allopurinol (Zyloprim) 100 mg PO DAILY [facility] Last Admin: 12/18/18 08:17 Dose: 100 mg Atorvastatin Calcium (Lipitor) 10 mg PO HS [facility] Last Admin: 12/17/18 23:34 Dose: 10 mg Calcitriol (Rocaltrol) 0.25 mcg PO DAILY [facility] Last Admin: 12/18/18 08:17 Dose: 0.25 mcg Diphenhydramine HCl (Benadryl) 50 mg IVP Q24H PRN PRN Reason: Allergy symptoms Last Admin: 12/17/18 14:06 Dose: 50 mg Epoetin Mitchell (Procrit) 10,000 unit IV MWF [facility] Last Admin: 12/17/18 12:12 Dose: 10,000 unit Folic Acid (Folic Acid) 1 mg PO DAILY [facility] Last Admin: 12/18/18 08:16 Dose: 1 mg Gabapentin (Neurontin) 100 mg PO TID [facility] Last Admin: 12/18/18 08:16 Dose: 100 mg Metronidazole 250 mg/ (Miscellaneous) 50 mls @ 50 mls/hr IVPB Q8 [facility]; Protocol Last Admin: 12/18/18 08:15 Dose: 50 mls/hr Vancomycin HCl 1 gm/ Sodium (Chloride) 250 mls @ 125 mls/hr IVPB MWF [facility]; Protocol Last Admin: 12/17/18 16:59 Dose: 125 mls/hr Meropenem 500 mg/ Sodium (Chloride) 100 mls @ 100 mls/hr IVPB Q24H [facility]; Protocol Last Admin: 12/17/18 14:15 Dose: 100 mls/hr Insulin Human Lispro (Humalog) 0 units SC Q6H [facility]; Protocol Last Admin: 12/18/18 04:58 Dose: 3 unit Lactic Acid (Lac-Hydrin 12% Lotion (225 G)) 1 applic TOP DAILY [facility] Last Admin: 12/18/18 08:16 Dose: 1 applic Loperamide HCl (Imodium) 2 mg PO Q6 [facility] Last Admin: 12/18/18 04:57 Dose: 2 mg Methylprednisolone (Solu-Medrol) 40 mg IVP DAILY [facility] Last Admin: 12/17/18 14:03 Dose: 40 mg Metoclopramide HCl (Reglan) 10 mg IVP Q6 PRN PRN Reason: Nausea/Vomiting Last Admin: 12/14/18 05:00 Dose: 10 mg Ondansetron HCl (Zofran Inj) 4 mg IVP Q6H PRN PRN Reason: Nausea/Vomiting Last Admin: 12/14/18 12:30 Dose: 4 mg Pantoprazole Sodium (Protonix Ec Tab) 40 mg PO DAILY [facility] Last Admin: 12/18/18 08:17 Dose: 40 mg Sevelamer Carbonate (Renvela) 1.6 gm PO TIDWM [facility] Last Admin: 12/18/18 08:17 Dose: 1.6 gm Vitamin B Complex/Vit C/Folic Acid (Nephro-Elsa) 1 tab PO DAILY [facility] Last Admin: 12/18/18 08:16 Dose: 1 tab - Labs Labs: 12/18/18 04:30 12/18/18 04:30 PT 18.1 Seconds (9.8-13.1) H 12/13/18 17:15 INR 1.6 12/13/18 17:15 APTT 39.7 Seconds (25.6-37.1) H 12/13/18 17:15
--- NOTE | 2018-12-18 15:06 | CP.PCM.PN ---
Subjective - Date & Time of Evaluation Date of Evaluation: 12/18/18 Time of Evaluation: 11:15 - Subjective Subjective: Patient remains afebrile Still with elevated BP Noted elevated FBS Was on procardia metoprolol and losartan He was also on gipizide and januvia. Objective - Vital Signs/Intake and Output Vital Signs (last 24 hours): Temp Pulse Resp BP Pulse Ox 98.2 F 83 20 170/92 H 96 12/18/18 00:56 12/18/18 00:56 12/18/18 00:56 12/18/18 00:56 12/18/18 00:56 Intake and Output: 12/18/18 12/18/18 06:59 18:59 Intake Total 230 Balance 230 - Medications Medications: Current Medications Acetaminophen (Tylenol 325mg Tab) 650 mg PO Q6 PRN PRN Reason: pain (1-10) Last Admin: 12/14/18 01:18 Dose: 650 mg Acetaminophen (Tylenol 325mg Tab) 650 mg PO Q6H PRN PRN Reason: Fever >100.4 F Allopurinol (Zyloprim) 100 mg PO DAILY [facility] Last Admin: 12/18/18 08:17 Dose: 100 mg Amlodipine Besylate (Norvasc) 10 mg PO DAILY [facility] Atorvastatin Calcium (Lipitor) 10 mg PO HS [facility] Last Admin: 12/17/18 23:34 Dose: 10 mg Calcitriol (Rocaltrol) 0.25 mcg PO DAILY [facility] Last Admin: 12/18/18 08:17 Dose: 0.25 mcg Diphenhydramine HCl (Benadryl) 50 mg IVP Q24H PRN PRN Reason: Allergy symptoms Last Admin: 12/17/18 14:06 Dose: 50 mg Epoetin Mitchell (Procrit) 10,000 unit IV MWF [facility] Last Admin: 12/17/18 12:12 Dose: 10,000 unit Folic Acid (Folic Acid) 1 mg PO DAILY [facility] Last Admin: 12/18/18 08:16 Dose: 1 mg Gabapentin (Neurontin) 100 mg PO TID [facility] Last Admin: 12/18/18 12:28 Dose: 100 mg Metronidazole 250 mg/ (Miscellaneous) 50 mls @ 50 mls/hr IVPB Q8 [facility]; Protocol Last Admin: 12/18/18 08:15 Dose: 50 mls/hr Vancomycin HCl 1 gm/ Sodium (Chloride) 250 mls @ 125 mls/hr IVPB MWF [facility]; Protocol Last Admin: 12/17/18 16:59 Dose: 125 mls/hr Meropenem 500 mg/ Sodium (Chloride) 100 mls @ 100 mls/hr IVPB Q24H [facility]; Protocol Last Admin: 12/17/18 14:15 Dose: 100 mls/hr Insulin Detemir (Levemir) 5 units SC HS [facility] Insulin Human Lispro (Humalog) 0 units SC Q6H [facility]; Protocol Last Admin: 12/18/18 09:47 Dose: 1 unit Lactic Acid (Lac-Hydrin 12% Lotion (225 G)) 1 applic TOP DAILY [facility] Last Admin: 12/18/18 08:16 Dose: 1 applic Loperamide HCl (Imodium) 2 mg PO Q6 [facility] Last Admin: 12/18/18 09:48 Dose: 2 mg Methylprednisolone (Solu-Medrol) 40 mg IVP DAILY [facility] Last Admin: 12/17/18 14:03 Dose: 40 mg Metoclopramide HCl (Reglan) 10 mg IVP Q6 PRN PRN Reason: Nausea/Vomiting Last Admin: 12/14/18 05:00 Dose: 10 mg Metoprolol Tartrate (Lopressor) 50 mg PO Q12 [facility] Ondansetron HCl (Zofran Inj) 4 mg IVP Q6H PRN PRN Reason: Nausea/Vomiting Last Admin: 12/14/18 12:30 Dose: 4 mg Pantoprazole Sodium (Protonix Ec Tab) 40 mg PO DAILY [facility] Last Admin: 12/18/18 08:17 Dose: 40 mg Potassium Chloride (K-Dur 20 Meq Er Tab) 20 meq PO DAILY [facility] Sevelamer Carbonate (Renvela) 1.6 gm PO TIDWM [facility] Last Admin: 12/18/18 12:28 Dose: 1.6 gm Vitamin B Complex/Vit C/Folic Acid (Nephro-Elsa) 1 tab PO DAILY [facility] Last Admin: 12/18/18 08:16 Dose: 1 tab - Labs Labs: 12/18/18 04:30 12/18/18 04:30 PT 18.1 Seconds (9.8-13.1) H 12/13/18 17:15 INR 1.6 12/13/18 17:15 APTT 39.7 Seconds (25.6-37.1) H 12/13/18 17:15 - Head Exam Head Exam: NORMAL INSPECTION - Eye Exam Eye Exam: Normal appearance - ENT Exam ENT Exam: Mucous Membranes Moist - Respiratory Exam Respiratory Exam: Clear to Ausculation Bilateral - Cardiovascular Exam Cardiovascular Exam: REGULAR RHYTHM - GI/Abdominal Exam GI & Abdominal Exam: Normal Bowel Sounds - Neurological Exam Neurological Exam: Awake Assessment and Plan (1) Sepsis Status: Acute (2) Severe dehydration Status: Acute (3) Abdominal wall abscess Status: Acute (4) Diabetes mellitus type 2 in obese Status: Chronic (5) ESRD (end stage renal disease) on dialysis Status: Chronic (6) Hypertension Status: Acute - Assessment and Plan (Free Text) Plan: Cont meds Cont iv antibiotics start Amlodipine and metoprolol Start Glipizide daily Cont meds
[2018-12-18] MEDS: Meropenem 500 MG in Sodium Chloride 0.9% 100 ML IVPB SCH (16:13)
[2018-12-18] MEDS: Potassium Chloride 20 mEq ER Tab PO SCH (16:13)
[2018-12-18] MEDS: MethylPREDNISolone 40 mg Vial IVP SCH (16:38)
[2018-12-18] MEDS: Insulin Detemir 100 Units/ml Inj SC SCH (21:55)
--- NOTE | 2018-12-18 21:57 | CP.PCM.PN ---
Subjective - Date & Time of Evaluation Date of Evaluation: 12/18/18 Time of Evaluation: 21:39 - Subjective Subjective: I D NOTE HAVE REVIEWED CHART AND DISCUSSED c . WILL ORDER CT SCAN OF ABDOMEN AND PELVIS CONTINUE SAME ANTIBIOTIC MANAGEMENT Objective - Vital Signs/Intake and Output Vital Signs (last 24 hours): Temp Pulse Resp BP Pulse Ox 98.1 F 81 11 L 185/101 H 100 12/18/18 16:09 12/18/18 16:14 12/18/18 16:09 12/18/18 16:14 12/18/18 16:09 - Medications Medications: Current Medications Acetaminophen (Tylenol 325mg Tab) 650 mg PO Q6 PRN PRN Reason: pain (1-10) Last Admin: 12/14/18 01:18 Dose: 650 mg Acetaminophen (Tylenol 325mg Tab) 650 mg PO Q6H PRN PRN Reason: Fever >100.4 F Allopurinol (Zyloprim) 100 mg PO DAILY [facility] Last Admin: 12/18/18 08:17 Dose: 100 mg Amlodipine Besylate (Norvasc) 10 mg PO DAILY [facility] Last Admin: 12/18/18 16:14 Dose: 10 mg Atorvastatin Calcium (Lipitor) 10 mg PO HS [facility] Last Admin: 12/17/18 23:34 Dose: 10 mg Calcitriol (Rocaltrol) 0.25 mcg PO DAILY [facility] Last Admin: 12/18/18 08:17 Dose: 0.25 mcg Diphenhydramine HCl (Benadryl) 50 mg IVP Q24H PRN PRN Reason: Allergy symptoms Last Admin: 12/17/18 14:06 Dose: 50 mg Epoetin Mitchell (Procrit) 10,000 unit IV MWF [facility] Last Admin: 12/17/18 12:12 Dose: 10,000 unit Folic Acid (Folic Acid) 1 mg PO DAILY [facility] Last Admin: 12/18/18 08:16 Dose: 1 mg Gabapentin (Neurontin) 100 mg PO TID [facility] Last Admin: 12/18/18 16:14 Dose: 100 mg Glipizide (Glucotrol Xl) 5 mg PO BRK [facility] Metronidazole 250 mg/ (Miscellaneous) 50 mls @ 50 mls/hr IVPB Q8 [facility]; Protocol Last Admin: 12/18/18 16:11 Dose: 50 mls/hr Vancomycin HCl 1 gm/ Sodium (Chloride) 250 mls @ 125 mls/hr IVPB MWF [facility]; Protocol Last Admin: 12/17/18 16:59 Dose: 125 mls/hr Meropenem 500 mg/ Sodium (Chloride) 100 mls @ 100 mls/hr IVPB Q24H [facility]; Protocol Last Admin: 12/18/18 16:13 Dose: 100 mls/hr Insulin Detemir (Levemir) 5 units SC HS [facility] Insulin Human Lispro (Humalog) 0 units SC Q6H [facility]; Protocol Last Admin: 12/18/18 16:12 Dose: 1 unit Iohexol (Omnipaque 240 (50 Ml)) 50 ml PO ONCE ONE Stop: 12/19/18 21:18 Lactic Acid (Lac-Hydrin 12% Lotion (225 G)) 1 applic TOP DAILY [facility] Last Admin: 12/18/18 08:16 Dose: 1 applic Loperamide HCl (Imodium) 2 mg PO Q6 [facility] Last Admin: 12/18/18 16:12 Dose: 2 mg Methylprednisolone (Solu-Medrol) 40 mg IVP DAILY [facility] Last Admin: 12/18/18 16:38 Dose: 40 mg Metoclopramide HCl (Reglan) 10 mg IVP Q6 PRN PRN Reason: Nausea/Vomiting Last Admin: 12/14/18 05:00 Dose: 10 mg Metoprolol Tartrate (Lopressor) 50 mg PO Q12 [facility] Ondansetron HCl (Zofran Inj) 4 mg IVP Q6H PRN PRN Reason: Nausea/Vomiting Last Admin: 12/14/18 12:30 Dose: 4 mg Pantoprazole Sodium (Protonix Ec Tab) 40 mg PO DAILY [facility] Last Admin: 12/18/18 08:17 Dose: 40 mg Potassium Chloride (K-Dur 20 Meq Er Tab) 20 meq PO DAILY [facility] Last Admin: 12/18/18 16:13 Dose: 20 meq Sevelamer Carbonate (Renvela) 1.6 gm PO TIDWM [facility] Last Admin: 12/18/18 16:15 Dose: 1.6 gm Vitamin B Complex/Vit C/Folic Acid (Nephro-Elsa) 1 tab PO DAILY [facility] Last Admin: 12/18/18 08:16 Dose: 1 tab - Labs Labs: 12/18/18 04:30 12/18/18 04:30 PT 18.1 Seconds (9.8-13.1) H 12/13/18 17:15 INR 1.6 12/13/18 17:15 APTT 39.7 Seconds (25.6-37.1) H 12/13/18 17:15
[2018-12-19] MEDS: Insulin Lispro (humaLOG) 100 Units/ml Inj SC SCH ×4 (03:55→22:09)
[2018-12-19 05:09] LABS: BASO % 0.3 % (0.0-2.0); HEMOGLOBIN 8.5 g/dL (12.0-18.0); LYMPH # 0.8 K/uL (1.0-4.3); LYMPH % 5.1 % (20.0-40.0); MEAN CELL VOLUME 74.8 fl (80.0-94.0); MEAN CORPUSCULAR HEMOGLOBIN 23.1 pg (27.0-31.0); MEAN CORPUSCULAR HGB CONC 30.9 g/dL (33.0-37.0); MONO # 0.4 K/uL (0.0-0.8); MONO % 2.8 % (0.0-10.0); NEUT # 13.9 K/uL (1.8-7.0); NEUT % 91.8 % (50.0-75.0); NRBC % 0.1 % (0.0-0.0); PLATELET COUNT 322 K/uL (130-400); RBC 3.67 Mil/uL (4.40-5.90); RED CELL DISTRIBUTION WIDTH 19.4 % (11.5-14.5); WHITE BLOOD COUNT 15.2 K/uL (4.8-10.8)
[2018-12-19] MEDS ORDERED: Iohexol 240 (50 ml) PO ONE ×2 (06:00→21:17)
[2018-12-19 06:37] LABS: BANDS 1 % (0-2); LYMPHOCYTE 9 % (20-50); MONOCYTE 3 % (0-10); NEUTROPHIL 84 % (42-75); REACTIVE LYMPHOCYTES 3 % (0-0); TOTAL CELLS COUNTED 100
[2018-12-19 06:38] LABS: ANISOCYTOSIS SLIGHT; HYPOCHROMIC SLIGHT; PLATELET ESTIMATE NORMAL (NORMAL)
[2018-12-19 06:39] LABS: OVALOCYTES SLIGHT
[2018-12-19] MEDS: metroNIDAZOLE 500mg/100ml NS 250 MG in Premixed IV 1 EA IVPB SCH ×2 (09:11)
[2018-12-19] MEDS: GlipiZIDE 5 mg SR Tab PO SCH (09:12)
[2018-12-19] MEDS: Potassium Chloride 20 mEq ER Tab PO SCH (09:14)
[2018-12-19] MEDS: Pantoprazole 40 mg EC Tab PO SCH (09:15)
[2018-12-19] MEDS: Sevelamer Carb 0.8 gm/Packet PO SCH ×3 (09:15→17:40)
[2018-12-19] MEDS: Multivitamin Vitamin B Complex (Nephro-Vite) Tab PO SCH (09:15)
[2018-12-19] MEDS: MethylPREDNISolone 40 mg Vial IVP SCH (09:16)
--- NOTE | 2018-12-19 11:20 | CP.PCM.PN ---
Subjective - Date & Time of Evaluation Date of Evaluation: 12/19/18 Time of Evaluation: 11:18 - Subjective Subjective: General Surgery Pt seen and examined this AM. He continues to have diarrhea but less since starting Imodium. He denies having abdominal pain, N/V. Previous notes reviewed, pt is pending CT scan today, ordered by ID. Afebrile. Dressing not yet changed today. Labs and vitals noted. WBC trending up today 15.2 PE Gen: Pt laying in bed in NAD. Appears to be in good spirits today Skin: warm and dry, see below Cardio: s1s2 RRR, (-) murmurs Lungs: CTA bilaterally Abd: Soft NTND, surgical incision opening with packing and gauze with dry yellow drainage. Upon removal of packing (-) odor, (-) drainage. Extr: (-) calf tenderness bilaterally, (+) right foot partial amputation, healing scabbed erythematous rash on bilateral LEs. A/P Abdominal Abscess Continue abx per ID, abscess not drainable as per IR (from first results of CT scan). F/U with today's CT scan. Drsg changes daily Pt cleared for discharge from surgical point of view. Objective - Vital Signs/Intake and Output Vital Signs (last 24 hours): Temp Pulse Resp BP Pulse Ox 98.0 F 74 20 195/90 H 100 12/19/18 08:06 12/19/18 09:15 12/19/18 08:06 12/19/18 09:15 12/19/18 08:06 Intake and Output: 12/19/18 12/19/18 06:59 18:59 Intake Total 8 Balance 8 - Medications Medications: Current Medications Acetaminophen (Tylenol 325mg Tab) 650 mg PO Q6 PRN PRN Reason: pain (1-10) Last Admin: 12/14/18 01:18 Dose: 650 mg Acetaminophen (Tylenol 325mg Tab) 650 mg PO Q6H PRN PRN Reason: Fever >100.4 F Allopurinol (Zyloprim) 100 mg PO DAILY [facility] Last Admin: 12/19/18 09:21 Dose: 100 mg Amlodipine Besylate (Norvasc) 10 mg PO DAILY [facility] Last Admin: 12/19/18 09:15 Dose: 10 mg Atorvastatin Calcium (Lipitor) 10 mg PO HS [facility] Last Admin: 12/18/18 21:46 Dose: 10 mg Calcitriol (Rocaltrol) 0.25 mcg PO DAILY [facility] Last Admin: 12/19/18 09:15 Dose: 0.25 mcg Diphenhydramine HCl (Benadryl) 50 mg IVP Q24H PRN PRN Reason: Allergy symptoms Last Admin: 12/17/18 14:06 Dose: 50 mg Epoetin Mitchell (Procrit) 10,000 unit IV MWF [facility] Last Admin: 12/17/18 12:12 Dose: 10,000 unit Folic Acid (Folic Acid) 1 mg PO DAILY [facility] Last Admin: 12/19/18 09:12 Dose: 1 mg Gabapentin (Neurontin) 100 mg PO TID [facility] Last Admin: 12/19/18 09:16 Dose: 100 mg Glipizide (Glucotrol Xl) 5 mg PO BRK [facility] Last Admin: 12/19/18 09:12 Dose: 5 mg Metronidazole 250 mg/ (Miscellaneous) 50 mls @ 50 mls/hr IVPB Q8 [facility]; Protocol Last Admin: 12/19/18 09:11 Dose: 50 mls/hr Vancomycin HCl 1 gm/ Sodium (Chloride) 250 mls @ 125 mls/hr IVPB MWF [facility]; Protocol Last Admin: 12/19/18 09:26 Dose: 125 mls/hr Meropenem 500 mg/ Sodium (Chloride) 100 mls @ 100 mls/hr IVPB Q24H [facility]; Protocol Last Admin: 12/18/18 16:13 Dose: 100 mls/hr Insulin Detemir (Levemir) 5 units SC HS [facility] Last Admin: 12/18/18 21:55 Dose: 5 units Insulin Human Lispro (Humalog) 0 units SC Q6H [facility]; Protocol Last Admin: 12/19/18 09:13 Dose: 4 unit Iohexol (Omnipaque 240 (50 Ml)) 50 ml PO ONCE ONE Stop: 12/19/18 21:18 Lactic Acid (Lac-Hydrin 12% Lotion (225 G)) 1 applic TOP DAILY [facility] Last Admin: 12/19/18 09:14 Dose: 1 applic Loperamide HCl (Imodium) 2 mg PO Q6 [facility] Last Admin: 12/19/18 09:13 Dose: 2 mg Methylprednisolone (Solu-Medrol) 40 mg IVP DAILY [facility] Last Admin: 12/19/18 09:16 Dose: 40 mg Metoclopramide HCl (Reglan) 10 mg IVP Q6 PRN PRN Reason: Nausea/Vomiting Last Admin: 12/14/18 05:00 Dose: 10 mg Metoprolol Tartrate (Lopressor) 50 mg PO Q12 [facility] Last Admin: 12/19/18 09:14 Dose: 50 mg Ondansetron HCl (Zofran Inj) 4 mg IVP Q6H PRN PRN Reason: Nausea/Vomiting Last Admin: 12/14/18 12:30 Dose: 4 mg Pantoprazole Sodium (Protonix Ec Tab) 40 mg PO DAILY [facility] Last Admin: 12/19/18 09:15 Dose: 40 mg Potassium Chloride (K-Dur 20 Meq Er Tab) 20 meq PO DAILY [facility] Last Admin: 12/19/18 09:14 Dose: 20 meq Sevelamer Carbonate (Renvela) 1.6 gm PO TIDWM [facility] Last Admin: 12/19/18 09:15 Dose: 1.6 gm Vitamin B Complex/Vit C/Folic Acid (Nephro-Elsa) 1 tab PO DAILY [facility] Last Admin: 12/19/18 09:15 Dose: 1 tab - Labs Labs: 12/19/18 04:50 12/19/18 04:50 PT 18.1 Seconds (9.8-13.1) H 12/13/18 17:15 INR 1.6 12/13/18 17:15 APTT 39.7 Seconds (25.6-37.1) H 12/13/18 17:15
--- NOTE | 2018-12-19 14:04 | CT ---
Date of service: 12/19/2018 PROCEDURE: CT Abdomen and Pelvis with contrast HISTORY: intra abdominal abscess COMPARISON: 12/03/2018, 12/05/2018, 12/13/2018. Serial CT scans abdomen and pelvis. TECHNIQUE: Oral contrast only. Radiation dose: Total exam DLP = <inf_radiation_dlp> mGy-cm. This CT exam was performed using one or more of the following dose reduction techniques: Automated exposure control, adjustment of the mA and/or kV according to patient size, and/or use of iterative reconstruction technique. FINDINGS: LOWER THORAX: Trace right pleural effusion. LIVER: Unremarkable. No gross lesion or ductal dilatation. GALLBLADDER AND BILE DUCTS: Unremarkable. PANCREAS: Unremarkable. No gross lesion or ductal dilatation. SPLEEN: Unremarkable. ADRENALS: Unremarkable. No mass. KIDNEYS AND URETERS: Unremarkable. No hydronephrosis. No solid mass. VASCULATURE: Atherosclerotic calcification and mural plaque present. Findings are seen throughout the aorta which is non aneurysmal. BOWEL: Unremarkable. No obstruction. No gross mural thickening. APPENDIX: Not visible. PERITONEUM: Decrease in size anterior collection to the right of the midline currently measuring 2.4 x 4 cm. Previously this measured 3.2 x 6.6 cm. Loculated fluid identified in the right lower quadrant extending from axial series -82. This is contiguous with fluid about the anastomotic suture line. Loculated/trace fluid about the liver and in the left flank. LYMPH NODES: Unremarkable. No enlarged lymph nodes. BLADDER: Unremarkable. REPRODUCTIVE: Unremarkable. BONES: No acute fracture. OTHER FINDINGS: None. IMPRESSION: Decrease in size of intra-abdominal fluid collection/abscess. New fluid collection contiguous with the anastomotic suture line right lower quadrant extending inferiorly and laterally.
--- NOTE | 2018-12-19 14:30 | CP.PCM.PN ---
Subjective - Date & Time of Evaluation Date of Evaluation: 12/19/18 Time of Evaluation: 14:26 - Subjective Subjective: Dialysis note He was seen on hemodialysis Blood pressure elevated No chest pain no shortness of breath no difficulty breathing Dialysis nurse at the bedside Objective - Vital Signs/Intake and Output Vital Signs (last 24 hours): Temp Pulse Resp BP Pulse Ox 98.0 F 74 20 195/90 H 100 12/19/18 08:06 12/19/18 09:15 12/19/18 08:06 12/19/18 09:15 12/19/18 08:06 Intake and Output: 12/19/18 12/19/18 06:59 18:59 Intake Total 8 Balance 8 - Medications Medications: Current Medications Acetaminophen (Tylenol 325mg Tab) 650 mg PO Q6 PRN PRN Reason: pain (1-10) Last Admin: 12/14/18 01:18 Dose: 650 mg Acetaminophen (Tylenol 325mg Tab) 650 mg PO Q6H PRN PRN Reason: Fever >100.4 F Allopurinol (Zyloprim) 100 mg PO DAILY [facility] Last Admin: 12/19/18 09:21 Dose: 100 mg Amlodipine Besylate (Norvasc) 10 mg PO DAILY [facility] Last Admin: 12/19/18 09:15 Dose: 10 mg Atorvastatin Calcium (Lipitor) 10 mg PO HS [facility] Last Admin: 12/18/18 21:46 Dose: 10 mg Calcitriol (Rocaltrol) 0.25 mcg PO DAILY [facility] Last Admin: 12/19/18 09:15 Dose: 0.25 mcg Diphenhydramine HCl (Benadryl) 50 mg IVP Q24H PRN PRN Reason: Allergy symptoms Last Admin: 12/17/18 14:06 Dose: 50 mg Epoetin Mitchell (Procrit) 10,000 unit IV MWF [facility] Last Admin: 12/17/18 12:12 Dose: 10,000 unit Folic Acid (Folic Acid) 1 mg PO DAILY [facility] Last Admin: 12/19/18 09:12 Dose: 1 mg Gabapentin (Neurontin) 100 mg PO TID [facility] Last Admin: 12/19/18 13:20 Dose: 100 mg Glipizide (Glucotrol Xl) 5 mg PO BRK [facility] Last Admin: 12/19/18 09:12 Dose: 5 mg Metronidazole 250 mg/ (Miscellaneous) 50 mls @ 50 mls/hr IVPB Q8 [facility]; Protocol Last Admin: 12/19/18 09:11 Dose: 50 mls/hr Vancomycin HCl 1 gm/ Sodium (Chloride) 250 mls @ 125 mls/hr IVPB MWF [facility]; Protocol Last Admin: 12/19/18 09:26 Dose: 125 mls/hr Meropenem 500 mg/ Sodium (Chloride) 100 mls @ 100 mls/hr IVPB Q24H [facility]; Protoc ol Last Admin: 12/18/18 16:13 Dose: 100 mls/hr Insulin Detemir (Levemir) 5 units SC HS [facility] Last Admin: 12/18/18 21:55 Dose: 5 units Insulin Human Lispro (Humalog) 0 units SC Q6H [facility]; Protocol Last Admin: 12/19/18 09:13 Dose: 4 unit Iohexol (Omnipaque 240 (50 Ml)) 50 ml PO ONCE ONE Stop: 12/19/18 21:18 Lactic Acid (Lac-Hydrin 12% Lotion (225 G)) 1 applic TOP DAILY [facility] Last Admin: 12/19/18 09:14 Dose: 1 applic Loperamide HCl (Imodium) 2 mg PO Q6 [facility] Last Admin: 12/19/18 09:13 Dose: 2 mg Methylprednisolone (Solu-Medrol) 40 mg IVP DAILY [facility] Last Admin: 12/19/18 09:16 Dose: 40 mg Metoclopramide HCl (Reglan) 10 mg IVP Q6 PRN PRN Reason: Nausea/Vomiting Last Admin: 12/14/18 05:00 Dose: 10 mg Metoprolol Tartrate (Lopressor) 50 mg PO Q12 [facility] Last Admin: 12/19/18 09:14 Dose: 50 mg Ondansetron HCl (Zofran Inj) 4 mg IVP Q6H PRN PRN Reason: Nausea/Vomiting Last Admin: 12/14/18 12:30 Dose: 4 mg Pantoprazole Sodium (Protonix Ec Tab) 40 mg PO DAILY [facility] Last Admin: 12/19/18 09:15 Dose: 40 mg Potassium Chloride (K-Dur 20 Meq Er Tab) 20 meq PO DAILY [facility] Last Admin: 12/19/18 09:14 Dose: 20 meq Sevelamer Carbonate (Renvela) 1.6 gm PO TIDWM [facility] Last Admin: 12/19/18 13:20 Dose: 1.6 gm Vitamin B Complex/Vit C/Folic Acid (Nephro-Elsa) 1 tab PO DAILY [facility] Last Admin: 12/19/18 09:15 Dose: 1 tab - Labs Labs: 12/19/18 04:50 12/19/18 04:50 PT 18.1 Seconds (9.8-13.1) H 12/13/18 17:15 INR 1.6 12/13/18 17:15 APTT 39.7 Seconds (25.6-37.1) H 12/13/18 17:15 - Constitutional Appears: No Acute Distress - Eye Exam Eye Exam: Conjunctival injection - ENT Exam ENT Exam: Mucous Membranes Moist - Neck Exam Neck Exam: absent: Lymphadenopathy - Respiratory Exam Respiratory Exam: NORMAL BREATHING PATTERN. absent: Rhonchi - Cardiovascular Exam Cardiovascular Exam: REGULAR RHYTHM. absent: Gallop, JVD, Rubs - GI/Abdominal Exam GI & Abdominal Exam: Soft, Normal Bowel Sounds - Extremities Exam Extremities Exam: absent: Calf Tenderness - Back Exam Back Exam: absent: CVA tenderness (L), CVA tenderness (R) - Neurological Exam Neurological Exam: Alert - Psychiatric Exam Psychiatric exam: Normal Affect - Skin Skin Exam: absent: Cyanosis Assessment and Plan (1) Chronic kidney disease with end stage renal failure on dialysis Assessment & Plan: End-stage renal disease patient receiving hemodialysis now Abdominal abscess Leukocytosis ESRD, CVA, HTN, DM, PVD SB resection for perforated viscous and ischemic bowel 11/11/18, R IJ permacath, R AVF, R TMA The plan Patient tolerating hemodialysis well Discussed with the dialysis nurse at the bedside to remove 2500 cc of fluid pressure 170 x 9o Sodium bath 138 Potassium bath 2 mEq Status: Chronic (2) Abdominal pain Status: Acute (3) Sepsis Status: Acute
[2018-12-19 15:33] VITALS: BMI 35.9
[2018-12-19] MEDS: EPOETIN ALFA 10,000 UNIT/ML ML IV SCH (17:33)
[2018-12-19] MEDS: Meropenem 500 MG in Sodium Chloride 0.9% 100 ML IVPB SCH (17:38)
[2018-12-19] MEDS: Insulin Detemir 100 Units/ml Inj SC SCH (22:12)
[2018-12-20] MEDS: metroNIDAZOLE 500mg/100ml NS 250 MG in Premixed IV 1 EA IVPB SCH ×3 (01:03→17:45)
[2018-12-20] MEDS: GlipiZIDE 5 mg SR Tab PO SCH (08:28)
[2018-12-20] MEDS: Multivitamin Vitamin B Complex (Nephro-Vite) Tab PO SCH (08:28)
[2018-12-20] MEDS: Insulin Lispro (humaLOG) 100 Units/ml Inj SC SCH ×4 (08:29→21:52)
[2018-12-20] MEDS: Pantoprazole 40 mg EC Tab PO SCH (08:34)
[2018-12-20] MEDS: Sevelamer Carb 0.8 gm/Packet PO SCH ×3 (08:34→16:50)
[2018-12-20] MEDS: Potassium Chloride 20 mEq ER Tab PO SCH (08:36)
[2018-12-20] MEDS: Meropenem 500 MG in Sodium Chloride 0.9% 100 ML IVPB SCH (16:00)
[2018-12-20] MEDS: Cholestyramine 4 gm/Pkt UD PO SCH (16:49)
[2018-12-20] MEDS: Lactobacillus Acidophilus 500 MU Cap PO SCH (17:45)
--- NOTE | 2018-12-20 19:54 | CP.PCM.PN ---
Subjective - Date & Time of Evaluation Date of Evaluation: 12/20/18 Time of Evaluation: 19:56 - Subjective Subjective: I D NOTE CT SCAN REVIEWED AND PREVIOUSLY NOTED ABSCESS HAS IMPROVED BUT THERE IS NEW COLLECTION OF FLUID NEAR SURGICAL ANASTAMOSIS SITE(LEAK?) HAS SHAMA,MAY CONSIDER ADDING PO VANCOMYCIN CONTINUE MEROPENEM DAILY/VANCOMYCIN POST HD/FLAGYL Objective - Vital Signs/Intake and Output Vital Signs (last 24 hours): Temp Pulse Resp BP Pulse Ox 97.9 F 70 20 138/82 96 12/20/18 16:21 12/20/18 16:21 12/20/18 16:21 12/20/18 16:21 12/20/18 16:21 - Medications Medications: Current Medications Acetaminophen (Tylenol 325mg Tab) 650 mg PO Q6 PRN PRN Reason: pain (1-10) Last Admin: 12/14/18 01:18 Dose: 650 mg Acetaminophen (Tylenol 325mg Tab) 650 mg PO Q6H PRN PRN Reason: Fever >100.4 F Allopurinol (Zyloprim) 100 mg PO DAILY [facility] Last Admin: 12/20/18 08:35 Dose: 100 mg Amlodipine Besylate (Norvasc) 10 mg PO DAILY [facility] Last Admin: 12/20/18 08:32 Dose: 10 mg Atorvastatin Calcium (Lipitor) 10 mg PO HS [facility] Last Admin: 12/19/18 21:10 Dose: 10 mg Calcitriol (Rocaltrol) 0.25 mcg PO DAILY [facility] Last Admin: 12/20/18 08:35 Dose: 0.25 mcg Cholestyramine Resin (Questran) 4 gm PO TID [facility] Last Admin: 12/20/18 16:49 Dose: 4 gm Diphenhydramine HCl (Benadryl) 50 mg IVP Q24H PRN PRN Reason: Allergy symptoms Last Admin: 12/17/18 14:06 Dose: 50 mg Epoetin Mitchell (Procrit) 10,000 unit IV MWF [facility] Last Admin: 12/19/18 17:33 Dose: 10,000 unit Folic Acid (Folic Acid) 1 mg PO DAILY [facility] Last Admin: 12/20/18 08:29 Dose: 1 mg Gabapentin (Neurontin) 100 mg PO TID [facility] Last Admin: 12/20/18 16:51 Dose: 100 mg Glipizide (Glucotrol Xl) 5 mg PO BRK [facility] Last Admin: 12/20/18 08:28 Dose: 5 mg Metronidazole 250 mg/ (Miscellaneous) 50 mls @ 50 mls/hr IVPB Q8 [facility]; Protocol Last Admin: 12/20/18 17:45 Dose: 50 mls/hr Vancomycin HCl 1 gm/ Sodium (Chloride) 250 mls @ 125 mls/hr IVPB MWF [facility]; Pro tocol Last Admin: 12/19/18 09:26 Dose: 125 mls/hr Meropenem 500 mg/ Sodium (Chloride) 100 mls @ 100 mls/hr IVPB Q24H [facility]; Protocol Last Admin: 12/20/18 16:00 Dose: 100 mls/hr Insulin Detemir (Levemir) 5 units SC HS [facility] Last Admin: 12/19/18 22:12 Dose: 5 units Insulin Human Lispro (Humalog) 0 units SC ACHS [facility]; Protocol Last Admin: 12/20/18 16:42 Dose: 1 unit Lactic Acid (Lac-Hydrin 12% Lotion (225 G)) 1 applic TOP DAILY [facility] Last Admin: 12/20/18 08:31 Dose: 1 applic Lactobacillus Acidophilus (Bacid Acidophilus) 1 cap PO BID [facility] Last Admin: 12/20/18 17:45 Dose: 1 cap Loperamide HCl (Imodium) 2 mg PO Q6 [facility] Last Admin: 12/20/18 16:42 Dose: 2 mg Metoclopramide HCl (Reglan) 10 mg IVP Q6 PRN PRN Reason: Nausea/Vomiting Last Admin: 12/14/18 05:00 Dose: 10 mg Metoprolol Tartrate (Lopressor) 50 mg PO Q12 [facility] Last Admin: 12/20/18 09:21 Dose: 50 mg Ondansetron HCl (Zofran Inj) 4 mg IVP Q6H PRN PRN Reason: Nausea/Vomiting Last Admin: 12/14/18 12:30 Dose: 4 mg Pantoprazole Sodium (Protonix Ec Tab) 40 mg PO DAILY [facility] Last Admin: 12/20/18 08:34 Dose: 40 mg Potassium Chloride (K-Dur 20 Meq Er Tab) 20 meq PO DAILY [facility] Last Admin: 12/20/18 08:36 Dose: 20 meq Sevelamer Carbonate (Renvela) 1.6 gm PO TIDWM [facility] Last Admin: 12/20/18 16:50 Dose: 1.6 gm Vitamin B Complex/Vit C/Folic Acid (Nephro-Elsa) 1 tab PO DAILY [facility] Last Admin: 12/20/18 08:28 Dose: 1 tab - Labs Labs: 12/19/18 04:50 12/19/18 04:50 PT 18.1 Seconds (9.8-13.1) H 12/13/18 17:15 INR 1.6 12/13/18 17:15 APTT 39.7 Seconds (25.6-37.1) H 12/13/18 17:15
[2018-12-20] MEDS: Insulin Detemir 100 Units/ml Inj SC SCH (21:58)
[2018-12-21] MEDS: metroNIDAZOLE 500mg/100ml NS 250 MG in Premixed IV 1 EA IVPB SCH ×3 (01:13→17:03)
[2018-12-21] MEDS: Vancomycin 500 mg (Oral/Rectal USE) PO SCH ×3 (01:15→17:07)
[2018-12-21] MEDS: Insulin Lispro (humaLOG) 100 Units/ml Inj SC SCH ×4 (07:30→22:02)
[2018-12-21 07:42] LABS: HEMOGLOBIN 8.6 g/dL (12.0-18.0); MEAN CELL VOLUME 76.4 fl (80.0-94.0); MEAN CORPUSCULAR HEMOGLOBIN 23.2 pg (27.0-31.0); MEAN CORPUSCULAR HGB CONC 30.4 g/dL (33.0-37.0); RBC 3.71 Mil/uL (4.40-5.90); RED CELL DISTRIBUTION WIDTH 19.8 % (11.5-14.5); WHITE BLOOD COUNT 23.3 K/uL (4.8-10.8)
[2018-12-21 08:29] LABS: CALCIUM 7.1 mg/dL (8.4-10.2)
[2018-12-21 08:30] LABS: ALB/GLOB RATIO 0.7 (1.0-2.1); ALBUMIN 1.9 g/dL (3.5-5.0)
[2018-12-21] MEDS: Potassium Chloride 20 mEq ER Tab PO SCH (10:25)
[2018-12-21] MEDS: GlipiZIDE 5 mg SR Tab PO SCH (10:25)
[2018-12-21] MEDS: Multivitamin Vitamin B Complex (Nephro-Vite) Tab PO SCH (10:27)
[2018-12-21] MEDS: Cholestyramine 4 gm/Pkt UD PO SCH ×3 (10:28→20:40)
[2018-12-21] MEDS: Pantoprazole 40 mg EC Tab PO SCH (10:28)
[2018-12-21] MEDS: Sevelamer Carb 0.8 gm/Packet PO SCH ×3 (10:30→17:06)
[2018-12-21] MEDS: Lactobacillus Acidophilus 500 MU Cap PO SCH ×2 (13:11→17:23)
[2018-12-21] MEDS: Meropenem 500 MG in Sodium Chloride 0.9% 100 ML IVPB SCH (17:02)
[2018-12-21] MEDS: Lactated Ringer's 1,000 ML IV SCH (17:05)
--- NOTE | 2018-12-21 17:18 | CP.PCM.PN ---
Subjective - Date & Time of Evaluation Date of Evaluation: 12/21/18 Time of Evaluation: 12:00 - Subjective Subjective: patient seen and examined at bedside c/o diarrhea denies cp, sob, abdominal pain, fever, chills Objective - Vital Signs/Intake and Output Vital Signs (last 24 hours): Temp Pulse Resp BP Pulse Ox 98.3 F 76 20 152/91 H 98 12/21/18 16:29 12/21/18 16:29 12/21/18 16:29 12/21/18 16:29 12/21/18 16:29 - Medications Medications: Current Medications Acetaminophen (Tylenol 325mg Tab) 650 mg PO Q6 PRN PRN Reason: pain (1-10) Last Admin: 12/14/18 01:18 Dose: 650 mg Acetaminophen (Tylenol 325mg Tab) 650 mg PO Q6H PRN PRN Reason: Fever >100.4 F Allopurinol (Zyloprim) 100 mg PO DAILY [facility] Last Admin: 12/21/18 10:31 Dose: 100 mg Amlodipine Besylate (Norvasc) 10 mg PO DAILY [facility] Last Admin: 12/21/18 10:27 Dose: 10 mg Atorvastatin Calcium (Lipitor) 10 mg PO HS [facility] Last Admin: 12/20/18 21:45 Dose: 10 mg Calcitriol (Rocaltrol) 0.25 mcg PO DAILY [facility] Last Admin: 12/21/18 10:30 Dose: 0.25 mcg Cholestyramine Resin (Questran) 4 gm PO TID@1000,1400,2100 [facility] Last Admin: 12/21/18 12:15 Dose: 4 gm Diphenhydramine HCl (Benadryl) 50 mg IVP Q24H PRN PRN Reason: Allergy symptoms Last Admin: 12/17/18 14:06 Dose: 50 mg Epoetin Mitchell (Procrit) 10,000 unit IV MWF [facility] Last Admin: 12/19/18 17:33 Dose: 10,000 unit Folic Acid (Folic Acid) 1 mg PO DAILY [facility] Last Admin: 12/21/18 10:27 Dose: 1 mg Gabapentin (Neurontin) 100 mg PO TID [facility] Last Admin: 12/21/18 17:06 Dose: 100 mg Glipizide (Glucotrol Xl) 5 mg PO BRK [facility] Last Admin: 12/21/18 10:25 Dose: 5 mg Metronidazole 250 mg/ (Miscellaneous) 50 mls @ 50 mls/hr IVPB Q8 [facility]; Protocol Last Admin: 12/21/18 17:03 Dose: 50 mls/hr Vancomycin HCl 1 gm/ Sodium (Chloride) 250 mls @ 125 mls/hr IVPB MWF [facility]; Protocol Last Admin: 12/19/18 09:26 Dose: 125 mls/hr Meropenem 500 mg/ Sodium (Chloride) 100 mls @ 100 mls/hr IVPB Q24H [facility]; Protoco l Last Admin: 12/21/18 17:02 Dose: 100 mls/hr Lactated Ringer's (Lactated Ringer's) 1,000 mls @ 100 mls/hr IV .Q10H [facility] Last Admin: 12/21/18 17:05 Dose: 100 mls/hr Insulin Detemir (Levemir) 5 units SC HS [facility] Last Admin: 12/20/18 21:58 Dose: 5 units Insulin Human Lispro (Humalog) 0 units SC ACHS [facility]; Protocol Last Admin: 12/21/18 17:01 Dose: Not Given Lactic Acid (Lac-Hydrin 12% Lotion (225 G)) 1 applic TOP DAILY [facility] Last Admin: 12/21/18 17:05 Dose: 1 applic Lactobacillus Acidophilus (Bacid Acidophilus) 1 cap PO BID [facility] Last Admin: 12/21/18 13:11 Dose: 1 cap Loperamide HCl (Imodium) 2 mg PO Q6 [facility] Last Admin: 12/21/18 17:04 Dose: 2 mg Metoclopramide HCl (Reglan) 10 mg IVP Q6 PRN PRN Reason: Nausea/Vomiting Last Admin: 12/14/18 05:00 Dose: 10 mg Metoprolol Tartrate (Lopressor) 50 mg PO Q12 [facility] Last Admin: 12/21/18 10:45 Dose: 50 mg Ondansetron HCl (Zofran Inj) 4 mg IVP Q6H PRN PRN Reason: Nausea/Vomiting Last Admin: 12/14/18 12:30 Dose: 4 mg Pantoprazole Sodium (Protonix Ec Tab) 40 mg PO DAILY [facility] Last Admin: 12/21/18 10:28 Dose: 40 mg Potassium Chloride (K-Dur 20 Meq Er Tab) 20 meq PO DAILY [facility] Last Admin: 12/21/18 10:25 Dose: 20 meq Sevelamer Carbonate (Renvela) 1.6 gm PO TIDWM [facility] Last Admin: 12/21/18 17:06 Dose: 1.6 gm Vancomycin HCl (Vancocin (Oral/Rectal Use)) 125 mg PO Q8 [facility]; Protocol Last Admin: 12/21/18 17:07 Dose: 125 mg Vitamin B Complex/Vit C/Folic Acid (Nephro-Elsa) 1 tab PO DAILY [facility] Last Admin: 12/21/18 10:27 Dose: 1 tab - Labs Labs: 12/21/18 07:35 12/21/18 07:35 PT 18.1 Seconds (9.8-13.1) H 12/13/18 17:15 INR 1.6 12/13/18 17:15 APTT 39.7 Seconds (25.6-37.1) H 12/13/18 17:15 - Constitutional Appears: Non-toxic, No Acute Distress - Head Exam Head Exam: NORMAL INSPECTION - Eye Exam Eye Exam: Normal appearance - Respiratory Exam Respiratory Exam: NORMAL BREATHING PATTERN - Cardiovascular Exam Cardiovascular Exam: +S1, +S2 - GI/Abdominal Exam GI & Abdominal Exam: Soft - Neurological Exam Neurological Exam: Alert, Awake - Psychiatric Exam Psychiatric exam: Normal Affect, Normal Mood - Skin Skin Exam: Normal Color, Warm Assessment and Plan (1) Diarrhea Status: Acute (2) Abdominal wall abscess Status: Acute - Assessment and Plan (Free Text) Plan: cont iv abx ID/surgery following c-diff pending IVF monitor labs monitor vitals available diagnostic data reviewed rest of plan as ordered
--- NOTE | 2018-12-21 20:22 | CP.PCM.PN ---
Subjective - Date & Time of Evaluation Date of Evaluation: 12/21/18 Time of Evaluation: 13:00 - Subjective Subjective: General surgery progress note for Dr. Beck, covering Dr. Kyle Pt seen and examined this afternoon. Patient denies any pain, nausea, vomiting, diet intolerance, fevers or chills. Patient reports persistent, numerous bouts of diarrhea a day unchanged since surgery. Patient also complains of cough. Objective - Vital Signs/Intake and Output Vital Signs (last 24 hours): Temp Pulse Resp BP Pulse Ox 98.3 F 76 20 152/91 H 98 12/21/18 16:29 12/21/18 16:29 12/21/18 16:29 12/21/18 16:29 12/21/18 16:29 - Medications Medications: Current Medications Acetaminophen (Tylenol 325mg Tab) 650 mg PO Q6 PRN PRN Reason: pain (1-10) Last Admin: 12/14/18 01:18 Dose: 650 mg Acetaminophen (Tylenol 325mg Tab) 650 mg PO Q6H PRN PRN Reason: Fever >100.4 F Allopurinol (Zyloprim) 100 mg PO DAILY [facility] Last Admin: 12/21/18 10:31 Dose: 100 mg Amlodipine Besylate (Norvasc) 10 mg PO DAILY [facility] Last Admin: 12/21/18 10:27 Dose: 10 mg Atorvastatin Calcium (Lipitor) 10 mg PO HS [facility] Last Admin: 12/20/18 21:45 Dose: 10 mg Calcitriol (Rocaltrol) 0.25 mcg PO DAILY [facility] Last Admin: 12/21/18 10:30 Dose: 0.25 mcg Cholestyramine Resin (Questran) 4 gm PO TID@1000,1400,2100 [facility] Last Admin: 12/21/18 12:15 Dose: 4 gm Diphenhydramine HCl (Benadryl) 50 mg IVP Q24H PRN PRN Reason: Allergy symptoms Last Admin: 12/17/18 14:06 Dose: 50 mg Epoetin Mitchell (Procrit) 10,000 unit IV MWF [facility] Last Admin: 12/19/18 17:33 Dose: 10,000 unit Folic Acid (Folic Acid) 1 mg PO DAILY [facility] Last Admin: 12/21/18 10:27 Dose: 1 mg Gabapentin (Neurontin) 100 mg PO TID [facility] Last Admin: 12/21/18 17:06 Dose: 100 mg Glipizide (Glucotrol Xl) 5 mg PO BRK [facility] Last Admin: 12/21/18 10:25 Dose: 5 mg Metronidazole 250 mg/ (Miscellaneous) 50 mls @ 50 mls/hr IVPB Q8 [facility]; Protocol Last Admin: 12/21/18 17:03 Dose: 50 mls/hr Vancomycin HCl 1 gm/ Sodium (Chloride) 250 mls @ 125 mls/hr IVPB MWF [facility]; Protocol Last Admin: 12/19/18 09:26 Dose: 125 mls/hr Meropenem 500 mg/ Sodium (Chloride) 100 mls @ 100 mls/hr IVPB Q24H [facility]; Protocol Last Admin: 12/21/18 17:02 Dose: 100 mls/hr Lactated Ringer's (Lactated Ringer's) 1,000 mls @ 100 mls/hr IV .Q10H [facility] Last Admin: 12/21/18 17:05 Dose: 100 mls/hr Insulin Detemir (Levemir) 5 units SC HS [facility] Last Admin: 12/20/18 21:58 Dose: 5 units Insulin Human Lispro (Humalog) 0 units SC ACHS [facility]; Protocol Last Admin: 12/21/18 17:01 Dose: Not Given Lactic Acid (Lac-Hydrin 12% Lotion (225 G)) 1 applic TOP DAILY [facility] Last Admin: 12/21/18 17:05 Dose: 1 applic Lactobacillus Acidophilus (Bacid Acidophilus) 1 cap PO BID [facility] Last Admin: 12/21/18 17:23 Dose: 1 cap Loperamide HCl (Imodium) 2 mg PO Q6 [facility] Last Admin: 12/21/18 17:04 Dose: 2 mg Metoclopramide HCl (Reglan) 10 mg IVP Q6 PRN PRN Reason: Nausea/Vomiting Last Admin: 12/14/18 05:00 Dose: 10 mg Metoprolol Tartrate (Lopressor) 50 mg PO Q12 [facility] Last Admin: 12/21/18 10:45 Dose: 50 mg Ondansetron HCl (Zofran Inj) 4 mg IVP Q6H PRN PRN Reason: Nausea/Vomiting Last Admin: 12/14/18 12:30 Dose: 4 mg Pantoprazole Sodium (Protonix Ec Tab) 40 mg PO DAILY [facility] Last Admin: 12/21/18 10:28 Dose: 40 mg Potassium Chloride (K-Dur 20 Meq Er Tab) 20 meq PO DAILY [facility] Last Admin: 12/21/18 10:25 Dose: 20 meq Sevelamer Carbonate (Renvela) 1.6 gm PO TIDWM [facility] Last Admin: 12/21/18 17:06 Dose: 1.6 gm Vancomycin HCl (Vancocin (Oral/Rectal Use)) 125 mg PO Q8 [facility]; Protocol Last Admin: 12/21/18 17:07 Dose: 125 mg Vitamin B Complex/Vit C/Folic Acid (Nephro-Elsa) 1 tab PO DAILY [facility] Last Admin: 12/21/18 10:27 Dose: 1 tab - Labs Labs: 12/21/18 07:35 12/21/18 07:35 PT 18.1 Seconds (9.8-13.1) H 12/13/18 17:15 INR 1.6 12/13/18 17:15 APTT 39.7 Seconds (25.6-37.1) H 12/13/18 17:15 - Constitutional Appears: Well, Non-toxic, No Acute Distress - Head Exam Head Exam: ATRAUMATIC, NORMOCEPHALIC - Eye Exam Eye Exam: Normal appearance. absent: Conjunctival injection, Scleral icterus - ENT Exam ENT Exam: Mucous Membranes Moist, Normal Oropharynx - Respiratory Exam Respiratory Exam: NORMAL BREATHING PATTERN. absent: Accessory Muscle Use, Respiratory Distress - Cardiovascular Exam Cardiovascular Exam: RRR - GI/Abdominal Exam GI & Abdominal Exam: Soft. absent: Distended, Tenderness, Rebound Additional comments: midline incision healing well with area of skin breakdown packed with gauze with mild amount of serous fluid drainage. 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 Beck, who agrees with above Asha Hart, PGY2
[2018-12-21] MEDS: Insulin Detemir 100 Units/ml Inj SC SCH (21:55)
[2018-12-22] MEDS: Lactated Ringer's 1,000 ML IV SCH
[2018-12-22] MEDS: metroNIDAZOLE 500mg/100ml NS 250 MG in Premixed IV 1 EA IVPB SCH ×3 (01:07→17:12)
[2018-12-22] MEDS: Vancomycin 500 mg (Oral/Rectal USE) PO SCH ×3 (01:08→18:22)
[2018-12-22] MEDS: Insulin Lispro (humaLOG) 100 Units/ml Inj SC SCH ×4 (06:45→21:54)
[2018-12-22 06:51] LABS: HEMOGLOBIN 8.2 g/dL (12.0-18.0); MEAN CELL VOLUME 77.8 fl (80.0-94.0); MEAN CORPUSCULAR HEMOGLOBIN 23.6 pg (27.0-31.0); MEAN CORPUSCULAR HGB CONC 30.3 g/dL (33.0-37.0); RBC 3.49 Mil/uL (4.40-5.90); RED CELL DISTRIBUTION WIDTH 19.9 % (11.5-14.5); WHITE BLOOD COUNT 20.5 K/uL (4.8-10.8)
[2018-12-22 07:45] LABS: ALB/GLOB RATIO 0.7 (1.0-2.1); CALCIUM 6.9 mg/dL (8.4-10.2)
[2018-12-22] MEDS: Potassium Chloride 20 mEq ER Tab PO SCH (08:23)
[2018-12-22] MEDS: Sevelamer Carb 0.8 gm/Packet PO SCH ×3 (08:24→18:22)
[2018-12-22] MEDS: Pantoprazole 40 mg EC Tab PO SCH (08:26)
[2018-12-22] MEDS: Multivitamin Vitamin B Complex (Nephro-Vite) Tab PO SCH (08:26)
[2018-12-22] MEDS: GlipiZIDE 5 mg SR Tab PO SCH (08:30)
--- NOTE | 2018-12-22 08:31 | CP.PCM.PN ---
<Dean Fernandez - Last Filed: 12/22/18 08:34> Subjective - Date & Time of Evaluation Date of Evaluation: 12/22/18 Time of Evaluation: 07:00 - Subjective Subjective: Patient seen and examined. No acute events over night. Patient denies abdominal pain. Denies fever/chills, nausea/vomiting. Packing changed. Objective - Vital Signs/Intake and Output Vital Signs (last 24 hours): Temp Pulse Resp BP Pulse Ox 98.1 F 80 17 154/87 H 100 12/22/18 01:00 12/21/18 21:51 12/22/18 01:00 12/21/18 21:51 12/22/18 01:00 - Medications Medications: Current Medications Acetaminophen (Tylenol 325mg Tab) 650 mg PO Q6 PRN PRN Reason: pain (1-10) Last Admin: 12/14/18 01:18 Dose: 650 mg Acetaminophen (Tylenol 325mg Tab) 650 mg PO Q6H PRN PRN Reason: Fever >100.4 F Allopurinol (Zyloprim) 100 mg PO DAILY [facility] Last Admin: 12/21/18 10:31 Dose: 100 mg Amlodipine Besylate (Norvasc) 10 mg PO DAILY [facility] Last Admin: 12/21/18 10:27 Dose: 10 mg Atorvastatin Calcium (Lipitor) 10 mg PO HS [facility] Last Admin: 12/21/18 21:46 Dose: 10 mg Calcitriol (Rocaltrol) 0.25 mcg PO DAILY [facility] Last Admin: 12/21/18 10:30 Dose: 0.25 mcg Cholestyramine Resin (Questran) 4 gm PO TID@1000,1400,2100 [facility] Last Admin: 12/21/18 20:40 Dose: 4 gm Diphenhydramine HCl (Benadryl) 50 mg IVP Q24H PRN PRN Reason: Allergy symptoms Last Admin: 12/17/18 14:06 Dose: 50 mg Epoetin Mitchell (Procrit) 10,000 unit IV MWF [facility] Last Admin: 12/19/18 17:33 Dose: 10,000 unit Folic Acid (Folic Acid) 1 mg PO DAILY [facility] Last Admin: 12/21/18 10:27 Dose: 1 mg Gabapentin (Neurontin) 100 mg PO TID [facility] Last Admin: 12/21/18 17:06 Dose: 100 mg Glipizide (Glucotrol Xl) 5 mg PO BRK [facility] Last Admin: 12/21/18 10:25 Dose: 5 mg Metronidazole 250 mg/ (Miscellaneous) 50 mls @ 50 mls/hr IVPB Q8 [facility]; Protocol Last Admin: 12/22/18 01:07 Dose: 50 mls/hr Vancomycin HCl 1 gm/ Sodium (Chloride) 250 mls @ 125 mls/hr IVPB MWF [facility]; Protocol Last Admin: 12/19/18 09:26 Dose: 125 mls/hr Meropenem 500 mg/ Sodium (Chloride) 100 mls @ 100 mls/hr IVPB Q24H [facility]; Protocol Last Admin: 12/21/18 17:02 Dose: 100 mls/hr Lactated Ringer's (Lactated Ringer's) 1,000 mls @ 100 mls/hr IV .Q10H [facility] Last Admin: 12/22/18 00:00 Dose: Not Given Insulin Detemir (Levemir) 5 units SC HS [facility] Last Admin: 12/21/18 21:55 Dose: 5 units Insulin Human Lispro (Humalog) 0 units SC ACHS [facility]; Protocol Last Admin: 12/22/18 06:45 Dose: Not Given Lactic Acid (Lac-Hydrin 12% Lotion (225 G)) 1 applic TOP DAILY [facility] Last Admin: 12/21/18 17:05 Dose: 1 applic Lactobacillus Acidophilus (Bacid Acidophilus) 1 cap PO BID [facility] Last Admin: 12/21/18 17:23 Dose: 1 cap Loperamide HCl (Imodium) 2 mg PO Q6 [facility] Last Admin: 12/22/18 04:16 Dose: 2 mg Metoclopramide HCl (Reglan) 10 mg IVP Q6 PRN PRN Reason: Nausea/Vomiting Last Admin: 12/14/18 05:00 Dose: 10 mg Metoprolol Tartrate (Lopressor) 50 mg PO Q12 [facility] Last Admin: 12/21/18 21:51 Dose: 50 mg Ondansetron HCl (Zofran Inj) 4 mg IVP Q6H PRN PRN Reason: Nausea/Vomiting Last Admin: 12/14/18 12:30 Dose: 4 mg Pantoprazole Sodium (Protonix Ec Tab) 40 mg PO DAILY [facility] Last Admin: 12/21/18 10:28 Dose: 40 mg Potassium Chloride (K-Dur 20 Meq Er Tab) 20 meq PO DAILY [facility] Last Admin: 12/21/18 10:25 Dose: 20 meq Sevelamer Carbonate (Renvela) 1.6 gm PO TIDWM [facility] Last Admin: 12/21/18 17:06 Dose: 1.6 gm Vancomycin HCl (Vancocin (Oral/Rectal Use)) 125 mg PO Q8 [facility]; Protocol Last Admin: 12/22/18 01:08 Dose: 125 mg Vitamin B Complex/Vit C/Folic Acid (Nephro-Elsa) 1 tab PO DAILY [facility] Last Admin: 12/21/18 10:27 Dose: 1 tab - Labs Labs: 12/22/18 06:32 12/22/18 06:42 PT 18.1 Seconds (9.8-13.1) H 12/13/18 17:15 INR 1.6 12/13/18 17:15 APTT 39.7 Seconds (25.6-37.1) H 12/13/18 17:15 - Constitutional Appears: No Acute Distress - Head Exam Head Exam: NORMOCEPHALIC - Eye Exam Eye Exam: Normal appearance - ENT Exam ENT Exam: Mucous Membranes Moist - Respiratory Exam Respiratory Exam: NORMAL BREATHING PATTERN - Cardiovascular Exam Cardiovascular Exam: +S1, +S2 - GI/Abdominal Exam GI & Abdominal Exam: Soft. absent: Distended, Firm, Guarding, Rigid, Tenderness, Rebound - Neurological Exam Neurological Exam: Alert, Awake, Oriented x3 - Skin Skin Exam: Dry, Warm Additional comments: Packing changed from superior abdominal wound site. No purulent drainage, clean base. Assessment and Plan - Assessment and Plan (Free Text) Assessment: 47M POD#41 s/p extensive small bowel resection d/t ischemia with primary anast amosis. Leukocytosis improving. Plan: Continue local wound care with daily gauze packing changes Continue antibiotics per ID May consider reaching out to IR again to see if this new collection can be drained Supplement diet with protein Medical management per primary Replete electrolytes prn Further recs per Dr. Casa Burgos PGY3 <Dylan Cormier - Last Filed: 12/22/18 10:19> Subjective - Date & Time of Evaluation Time of Evaluation: 09:45 - Subjective Subjective: Patient was seen and examined at the bedside. Agree with resident's note above. Denies any abdominal pain, tolerating diet, passing flatus and having bowel movements, states that diarrhea has improved. Objective - Vital Signs/Intake and Output Vital Signs (last 24 hours): Temp Pulse Resp BP Pulse Ox 97.9 F 86 19 157/94 H 100 12/22/18 08:38 12/22/18 08:38 12/22/18 08:38 12/22/18 08:38 12/22/18 08:38 - Medications Medications: Current Medications Acetaminophen (Tylenol 325mg Tab) 650 mg PO Q6 PRN PRN Reason: pain (1-10) Last Admin: 12/14/18 01:18 Dose: 650 mg Acetaminophen (Tylenol 325mg Tab) 650 mg PO Q6H PRN PRN Reason: Fever >100.4 F Allopurinol (Zyloprim) 100 mg PO DAILY [facility] Last Admin: 12/22/18 08:25 Dose: 100 mg Amlodipine Besylate (Norvasc) 10 mg PO DAILY [facility] Last Admin: 12/21/18 10:27 Dose: 10 mg Atorvastatin Calcium (Lipitor) 10 mg PO HS [facility] Last Admin: 12/21/18 21:46 Dose: 10 mg Calcitriol (Rocaltrol) 0.25 mcg PO DAILY [facility] Last Admin: 12/22/18 08:24 Dose: 0.25 mcg Cholestyramine Resin (Questran) 4 gm PO TID@1000,1400,2100 [facility] Last Admin: 12/21/18 20:40 Dose: 4 gm Diphenhydramine HCl (Benadryl) 50 mg IVP Q24H PRN PRN Reason: Allergy symptoms Last Admin: 12/17/18 14:06 Dose: 50 mg Epoetin Mitchell (Procrit) 10,000 unit IV MWF [facility] Last Admin: 12/19/18 17:33 Dose: 10,000 unit Folic Acid (Folic Acid) 1 mg PO DAILY [facility] Last Admin: 12/22/18 08:22 Dose: 1 mg Gabapentin (Neurontin) 100 mg PO TID [facility] Last Admin: 12/22/18 08:26 Dose: 100 mg Glipizide (Glucotrol Xl) 5 mg PO BRK [facility] Last Admin: 12/22/18 08:30 Dose: 5 mg Metronidazole 250 mg/ (Miscellaneous) 50 mls @ 50 mls/hr IVPB Q8 [facility]; Protocol Last Admin: 12/22/18 08:38 Dose: 50 mls/hr Vancomycin HCl 1 gm/ Sodium (Chloride) 250 mls @ 125 mls/hr IVPB MWF [facility]; Protocol Last Admin: 12/19/18 09:26 Dose: 125 mls/hr Meropenem 500 mg/ Sodium (Chloride) 100 mls @ 100 mls/hr IVPB Q24H [facility]; Protocol Last Admin: 12/21/18 17:02 Dose: 100 mls/hr Lactated Ringer's (Lactated Ringer's) 1,000 mls @ 100 mls/hr IV .Q10H [facility] Last Admin: 12/22/18 00:00 Dose: Not Given Insulin Detemir (Levemir) 5 units SC HS [facility] Last Admin: 12/21/18 21:55 Dose: 5 units Insulin Human Lispro (Humalog) 0 units SC ACHS [facility]; Protocol Last Admin: 12/22/18 06:45 Dose: Not Given Lactic Acid (Lac-Hydrin 12% Lotion (225 G)) 1 applic TOP DAILY [facility] Last Admin: 12/22/18 08:26 Dose: 1 applic Lactobacillus Acidophilus (Bacid Acidophilus) 1 cap PO BID [facility] Last Admin: 12/22/18 09:11 Dose: 1 cap Loperamide HCl (Imodium) 2 mg PO Q6 [facility] Last Admin: 12/22/18 09:05 Dose: 2 mg Metoclopramide HCl (Reglan) 10 mg IVP Q6 PRN PRN Reason: Nausea/Vomiting Last Admin: 12/14/18 05:00 Dose: 10 mg Metoprolol Tartrate (Lopressor) 50 mg PO Q12 [facility] Last Admin: 12/21/18 21:51 Dose: 50 mg Ondansetron HCl (Zofran Inj) 4 mg IVP Q6H PRN PRN Reason: Nausea/Vomiting Last Admin: 12/14/18 12:30 Dose: 4 mg Pantoprazole Sodium (Protonix Ec Tab) 40 mg PO DAILY [facility] Last Admin: 12/22/18 08:26 Dose: 40 mg Potassium Chloride (K-Dur 20 Meq Er Tab) 20 meq PO DAILY [facility] Last Admin: 12/22/18 08:23 Dose: 20 meq Sevelamer Carbonate (Renvela) 1.6 gm PO TIDWM [facility] Last Admin: 12/22/18 08:24 Dose: 1.6 gm Vancomycin HCl (Vancocin (Oral/Rectal Use)) 125 mg PO Q8 [facility]; Protocol Last Admin: 12/22/18 08:25 Dose: 125 mg Vitamin B Complex/Vit C/Folic Acid (Nephro-Elsa) 1 tab PO DAILY [facility] Last Admin: 12/22/18 08:26 Dose: 1 tab - Labs Labs: 12/22/18 06:32 12/22/18 06:42 PT 18.1 Seconds (9.8-13.1) H 12/13/18 17:15 INR 1.6 12/13/18 17:15 APTT 39.7 Seconds (25.6-37.1) H 12/13/18 17:15 - GI/Abdominal Exam Additional comments: soft, NT, ND, BS+, no rebound, no guarding, wound with small area of open wound, no erythema, very minimal drainage
[2018-12-22] MEDS ORDERED: Magnesium Sulfate 2 gm/50 ml 2 GM/50 ML BAG IVPB ONE (08:44)
[2018-12-22] MEDS: Lactobacillus Acidophilus 500 MU Cap PO SCH ×2 (09:11→17:28)
--- NOTE | 2018-12-22 10:10 | CP.PCM.PN ---
Subjective - Date & Time of Evaluation Date of Evaluation: 12/19/18 Time of Evaluation: 11:30 - Subjective Subjective: patient remians stable Has no fever Noted a new collection on CT although the previous possibly abscess collection has decreased in size Has no abdominal pain. Objective - Vital Signs/Intake and Output Vital Signs (last 24 hours): Temp Pulse Resp BP Pulse Ox 97.9 F 86 19 157/94 H 100 12/22/18 08:38 12/22/18 08:38 12/22/18 08:38 12/22/18 08:38 12/22/18 08:38 - Medications Medications: Current Medications Acetaminophen (Tylenol 325mg Tab) 650 mg PO Q6 PRN PRN Reason: pain (1-10) Last Admin: 12/14/18 01:18 Dose: 650 mg Acetaminophen (Tylenol 325mg Tab) 650 mg PO Q6H PRN PRN Reason: Fever >100.4 F Allopurinol (Zyloprim) 100 mg PO DAILY [facility] Last Admin: 12/22/18 08:25 Dose: 100 mg Amlodipine Besylate (Norvasc) 10 mg PO DAILY [facility] Last Admin: 12/21/18 10:27 Dose: 10 mg Atorvastatin Calcium (Lipitor) 10 mg PO HS [facility] Last Admin: 12/21/18 21:46 Dose: 10 mg Calcitriol (Rocaltrol) 0.25 mcg PO DAILY [facility] Last Admin: 12/22/18 08:24 Dose: 0.25 mcg Cholestyramine Resin (Questran) 4 gm PO TID@1000,1400,2100 [facility] Last Admin: 12/21/18 20:40 Dose: 4 gm Diphenhydramine HCl (Benadryl) 50 mg IVP Q24H PRN PRN Reason: Allergy symptoms Last Admin: 12/17/18 14:06 Dose: 50 mg Epoetin Mitchell (Procrit) 10,000 unit IV MWF [facility] Last Admin: 12/19/18 17:33 Dose: 10,000 unit Folic Acid (Folic Acid) 1 mg PO DAILY [facility] Last Admin: 12/22/18 08:22 Dose: 1 mg Gabapentin (Neurontin) 100 mg PO TID [facility] Last Admin: 12/22/18 08:26 Dose: 100 mg Glipizide (Glucotrol Xl) 5 mg PO BRK [facility] Last Admin: 12/22/18 08:30 Dose: 5 mg Metronidazole 250 mg/ (Miscellaneous) 50 mls @ 50 mls/hr IVPB Q8 [facility]; Protocol Last Admin: 12/22/18 08:38 Dose: 50 mls/hr Vancomycin HCl 1 gm/ Sodium (Chloride) 250 mls @ 125 mls/hr IVPB MWF [facility]; Protocol Last Admin: 12/19/18 09:26 Dose: 125 mls/hr Meropenem 500 mg/ Sodium (Chloride) 100 mls @ 100 mls/hr IVPB Q24H [facility]; Protocol Last Admin: 12/21/18 17:02 Dose: 100 mls/hr Lactated Ringer's (Lactated Ringer's) 1,000 mls @ 100 mls/hr IV .Q10H [facility] Last Admin: 12/22/18 00:00 Dose: Not Given Insulin Detemir (Levemir) 5 units SC HS [facility] Last Admin: 12/21/18 21:55 Dose: 5 units Insulin Human Lispro (Humalog) 0 units SC ACHS [facility]; Protocol Last Admin: 12/22/18 06:45 Dose: Not Given Lactic Acid (Lac-Hydrin 12% Lotion (225 G)) 1 applic TOP DAILY [facility] Last Admin: 12/22/18 08:26 Dose: 1 applic Lactobacillus Acidophilus (Bacid Acidophilus) 1 cap PO BID [facility] Last Admin: 12/22/18 09:11 Dose: 1 cap Loperamide HCl (Imodium) 2 mg PO Q6 [facility] Last Admin: 12/22/18 09:05 Dose: 2 mg Metoclopramide HCl (Reglan) 10 mg IVP Q6 PRN PRN Reason: Nausea/Vomiting Last Admin: 12/14/18 05:00 Dose: 10 mg Metoprolol Tartrate (Lopressor) 50 mg PO Q12 [facility] Last Admin: 12/21/18 21:51 Dose: 50 mg Ondansetron HCl (Zofran Inj) 4 mg IVP Q6H PRN PRN Reason: Nausea/Vomiting Last Admin: 12/14/18 12:30 Dose: 4 mg Pantoprazole Sodium (Protonix Ec Tab) 40 mg PO DAILY [facility] Last Admin: 12/22/18 08:26 Dose: 40 mg Potassium Chloride (K-Dur 20 Meq Er Tab) 20 meq PO DAILY [facility] Last Admin: 12/22/18 08:23 Dose: 20 meq Sevelamer Carbonate (Renvela) 1.6 gm PO TIDWM [facility] Last Admin: 12/22/18 08:24 Dose: 1.6 gm Vancomycin HCl (Vancocin (Oral/Rectal Use)) 125 mg PO Q8 [facility]; Protocol Last Admin: 12/22/18 08:25 Dose: 125 mg Vitamin B Complex/Vit C/Folic Acid (Nephro-Elsa) 1 tab PO DAILY [facility] Last Admin: 12/22/18 08:26 Dose: 1 tab - Labs Labs: 12/22/18 06:32 12/22/18 06:42 PT 18.1 Seconds (9.8-13.1) H 12/13/18 17:15 INR 1.6 12/13/18 17:15 APTT 39.7 Seconds (25.6-37.1) H 12/13/18 17:15 - Head Exam Head Exam: NORMAL INSPECTION - Eye Exam Eye Exam: Normal appearance - Respiratory Exam Respiratory Exam: Clear to Ausculation Bilateral - Cardiovascular Exam Cardiovascular Exam: REGULAR RHYTHM - GI/Abdominal Exam GI & Abdominal Exam: Normal Bowel Sounds Assessment and Plan (1) Sepsis Status: Acute (2) Severe dehydration Status: Acute (3) Abdominal wall abscess Status: Acute (4) Diabetes mellitus type 2 in obese Status: Chronic (5) ESRD (end stage renal disease) on dialysis Status: Chronic (6) Hypertension Status: Acute - Assessment and Plan (Free Text) Plan: Con tmeds Follow up with surgery Cont iv antibiotics
--- NOTE | 2018-12-22 10:12 | CP.PCM.PN ---
Subjective - Date & Time of Evaluation Date of Evaluation: 12/20/18 Time of Evaluation: 10:40 - Subjective Subjective: Patient remains stable Has no fever Has no chest pain or SOB Has no abd pain Objective - Vital Signs/Intake and Output Vital Signs (last 24 hours): Temp Pulse Resp BP Pulse Ox 97.9 F 86 19 157/94 H 100 12/22/18 08:38 12/22/18 08:38 12/22/18 08:38 12/22/18 08:38 12/22/18 08:38 - Medications Medications: Current Medications Acetaminophen (Tylenol 325mg Tab) 650 mg PO Q6 PRN PRN Reason: pain (1-10) Last Admin: 12/14/18 01:18 Dose: 650 mg Acetaminophen (Tylenol 325mg Tab) 650 mg PO Q6H PRN PRN Reason: Fever >100.4 F Allopurinol (Zyloprim) 100 mg PO DAILY [facility] Last Admin: 12/22/18 08:25 Dose: 100 mg Amlodipine Besylate (Norvasc) 10 mg PO DAILY [facility] Last Admin: 12/21/18 10:27 Dose: 10 mg Atorvastatin Calcium (Lipitor) 10 mg PO HS [facility] Last Admin: 12/21/18 21:46 Dose: 10 mg Calcitriol (Rocaltrol) 0.25 mcg PO DAILY [facility] Last Admin: 12/22/18 08:24 Dose: 0.25 mcg Cholestyramine Resin (Questran) 4 gm PO TID@1000,1400,2100 [facility] Last Admin: 12/21/18 20:40 Dose: 4 gm Diphenhydramine HCl (Benadryl) 50 mg IVP Q24H PRN PRN Reason: Allergy symptoms Last Admin: 12/17/18 14:06 Dose: 50 mg Epoetin Mitchell (Procrit) 10,000 unit IV MWF [facility] Last Admin: 12/19/18 17:33 Dose: 10,000 unit Folic Acid (Folic Acid) 1 mg PO DAILY [facility] Last Admin: 12/22/18 08:22 Dose: 1 mg Gabapentin (Neurontin) 100 mg PO TID [facility] Last Admin: 12/22/18 08:26 Dose: 100 mg Glipizide (Glucotrol Xl) 5 mg PO BRK [facility] Last Admin: 12/22/18 08:30 Dose: 5 mg Metronidazole 250 mg/ (Miscellaneous) 50 mls @ 50 mls/hr IVPB Q8 [facility]; Protocol Last Admin: 12/22/18 08:38 Dose: 50 mls/hr Vancomycin HCl 1 gm/ Sodium (Chloride) 250 mls @ 125 mls/hr IVPB MWF [facility]; Protocol Last Admin: 12/19/18 09:26 Dose: 125 mls/hr Meropenem 500 mg/ Sodium (Chloride) 100 mls @ 100 mls/hr IVPB Q24H [facility]; Protocol Last Admin: 12/21/18 17:02 Dose: 100 mls/hr Lactated Ringer's (Lactated Ringer's) 1,000 mls @ 100 mls/hr IV .Q10H [facility] Last Admin: 12/22/18 00:00 Dose: Not Given Insulin Detemir (Levemir) 5 units SC HS [facility] Last Admin: 12/21/18 21:55 Dose: 5 units Insulin Human Lispro (Humalog) 0 units SC ACHS [facility]; Protocol Last Admin: 12/22/18 06:45 Dose: Not Given Lactic Acid (Lac-Hydrin 12% Lotion (225 G)) 1 applic TOP DAILY [facility] Last Admin: 12/22/18 08:26 Dose: 1 applic Lactobacillus Acidophilus (Bacid Acidophilus) 1 cap PO BID [facility] Last Admin: 12/22/18 09:11 Dose: 1 cap Loperamide HCl (Imodium) 2 mg PO Q6 [facility] Last Admin: 12/22/18 09:05 Dose: 2 mg Metoclopramide HCl (Reglan) 10 mg IVP Q6 PRN PRN Reason: Nausea/Vomiting Last Admin: 12/14/18 05:00 Dose: 10 mg Metoprolol Tartrate (Lopressor) 50 mg PO Q12 [facility] Last Admin: 12/21/18 21:51 Dose: 50 mg Ondansetron HCl (Zofran Inj) 4 mg IVP Q6H PRN PRN Reason: Nausea/Vomiting Last Admin: 12/14/18 12:30 Dose: 4 mg Pantoprazole Sodium (Protonix Ec Tab) 40 mg PO DAILY [facility] Last Admin: 12/22/18 08:26 Dose: 40 mg Potassium Chloride (K-Dur 20 Meq Er Tab) 20 meq PO DAILY [facility] Last Admin: 12/22/18 08:23 Dose: 20 meq Sevelamer Carbonate (Renvela) 1.6 gm PO TIDWM [facility] Last Admin: 12/22/18 08:24 Dose: 1.6 gm Vancomycin HCl (Vancocin (Oral/Rectal Use)) 125 mg PO Q8 [facility]; Protocol Last Admin: 12/22/18 08:25 Dose: 125 mg Vitamin B Complex/Vit C/Folic Acid (Nephro-Elsa) 1 tab PO DAILY [facility] Last Admin: 12/22/18 08:26 Dose: 1 tab - Labs Labs: 12/22/18 06:32 12/22/18 06:42 PT 18.1 Seconds (9.8-13.1) H 12/13/18 17:15 INR 1.6 12/13/18 17:15 APTT 39.7 Seconds (25.6-37.1) H 12/13/18 17:15 - Head Exam Head Exam: NORMAL INSPECTION - Eye Exam Eye Exam: Normal appearance - ENT Exam ENT Exam: Mucous Membranes Moist - Respiratory Exam Respiratory Exam: Clear to Ausculation Bilateral - Cardiovascular Exam Cardiovascular Exam: REGULAR RHYTHM - GI/Abdominal Exam GI & Abdominal Exam: Normal Bowel Sounds Assessment and Plan (1) Sepsis Status: Acute (2) Severe dehydration Status: Acute (3) Abdominal wall abscess Status: Acute (4) Diabetes mellitus type 2 in obese Status: Chronic (5) ESRD (end stage renal disease) on dialysis Status: Chronic (6) Hypertension Status: Acute - Assessment and Plan (Free Text) Plan: Cont mmeds Cont tx Cont PT follow up with surgery
--- NOTE | 2018-12-22 10:32 | CP.PCM.PN ---
Subjective - Date & Time of Evaluation Date of Evaluation: 12/22/18 Time of Evaluation: 10:32 - Subjective Subjective: Patient awake and conscious Complaining of weakness from the diarrhea Vital signs stable Worsening leukocytosis Objective - Vital Signs/Intake and Output Vital Signs (last 24 hours): Temp Pulse Resp BP Pulse Ox 97.9 F 86 19 157/94 H 100 12/22/18 08:38 12/22/18 08:38 12/22/18 08:38 12/22/18 08:38 12/22/18 08:38 - Medications Medications: Current Medications Acetaminophen (Tylenol 325mg Tab) 650 mg PO Q6 PRN PRN Reason: pain (1-10) Last Admin: 12/14/18 01:18 Dose: 650 mg Acetaminophen (Tylenol 325mg Tab) 650 mg PO Q6H PRN PRN Reason: Fever >100.4 F Allopurinol (Zyloprim) 100 mg PO DAILY [facility] Last Admin: 12/22/18 08:25 Dose: 100 mg Amlodipine Besylate (Norvasc) 10 mg PO DAILY [facility] Last Admin: 12/21/18 10:27 Dose: 10 mg Atorvastatin Calcium (Lipitor) 10 mg PO HS [facility] Last Admin: 12/21/18 21:46 Dose: 10 mg Calcitriol (Rocaltrol) 0.25 mcg PO DAILY [facility] Last Admin: 12/22/18 08:24 Dose: 0.25 mcg Cholestyramine Resin (Questran) 4 gm PO TID@1000,1400,2100 [facility] Last Admin: 12/21/18 20:40 Dose: 4 gm Diphenhydramine HCl (Benadryl) 50 mg IVP Q24H PRN PRN Reason: Allergy symptoms Last Admin: 12/17/18 14:06 Dose: 50 mg Epoetin Mitchell (Procrit) 10,000 unit IV MWF [facility] Last Admin: 12/19/18 17:33 Dose: 10,000 unit Folic Acid (Folic Acid) 1 mg PO DAILY [facility] Last Admin: 12/22/18 08:22 Dose: 1 mg Gabapentin (Neurontin) 100 mg PO TID [facility] Last Admin: 12/22/18 08:26 Dose: 100 mg Glipizide (Glucotrol Xl) 5 mg PO BRK [facility] Last Admin: 12/22/18 08:30 Dose: 5 mg Metronidazole 250 mg/ (Miscellaneous) 50 mls @ 50 mls/hr IVPB Q8 [facility]; Protocol Last Admin: 12/22/18 08:38 Dose: 50 mls/hr Vancomycin HCl 1 gm/ Sodium (Chloride) 250 mls @ 125 mls/hr IVPB MWF [facility]; Protocol Last Admin: 12/19/18 09:26 Dose: 125 mls/hr Meropenem 500 mg/ Sodium (Chloride) 100 mls @ 100 mls/hr IVPB Q24H [facility]; Protocol Last Admin: 12/21/18 17:02 Dose: 100 mls/hr Lactated Ringer's (Lactated Ringer's) 1,000 mls @ 100 mls/hr IV .Q10H [facility] Last Admin: 12/22/18 00:00 Dose: Not Given Insulin Detemir (Levemir) 5 units SC HS [facility] Last Admin: 12/21/18 21:55 Dose: 5 units Insulin Human Lispro (Humalog) 0 units SC ACHS [facility]; Protocol Last Admin: 12/22/18 06:45 Dose: Not Given Lactic Acid (Lac-Hydrin 12% Lotion (225 G)) 1 applic TOP DAILY [facility] Last Admin: 12/22/18 08:26 Dose: 1 applic Lactobacillus Acidophilus (Bacid Acidophilus) 1 cap PO BID [facility] Last Admin: 12/22/18 09:11 Dose: 1 cap Loperamide HCl (Imodium) 2 mg PO Q6 [facility] Last Admin: 12/22/18 09:05 Dose: 2 mg Metoclopramide HCl (Reglan) 10 mg IVP Q6 PRN PRN Reason: Nausea/Vomiting Last Admin: 12/14/18 05:00 Dose: 10 mg Metoprolol Tartrate (Lopressor) 50 mg PO Q12 [facility] Last Admin: 12/21/18 21:51 Dose: 50 mg Ondansetron HCl (Zofran Inj) 4 mg IVP Q6H PRN PRN Reason: Nausea/Vomiting Last Admin: 12/14/18 12:30 Dose: 4 mg Pantoprazole Sodium (Protonix Ec Tab) 40 mg PO DAILY [facility] Last Admin: 12/22/18 08:26 Dose: 40 mg Potassium Chloride (K-Dur 20 Meq Er Tab) 20 meq PO DAILY [facility] Last Admin: 12/22/18 08:23 Dose: 20 meq Sevelamer Carbonate (Renvela) 1.6 gm PO TIDWM [facility] Last Admin: 12/22/18 08:24 Dose: 1.6 gm Vancomycin HCl (Vancocin (Oral/Rectal Use)) 125 mg PO Q8 [facility]; Protocol Last Admin: 12/22/18 08:25 Dose: 125 mg Vitamin B Complex/Vit C/Folic Acid (Nephro-Elsa) 1 tab PO DAILY [facility] Last Admin: 12/22/18 08:26 Dose: 1 tab - Labs Labs: 12/22/18 06:32 12/22/18 06:42 PT 18.1 Seconds (9.8-13.1) H 12/13/18 17:15 INR 1.6 12/13/18 17:15 APTT 39.7 Seconds (25.6-37.1) H 12/13/18 17:15 - Constitutional Appears: No Acute Distress - Eye Exam Eye Exam: Conjunctival injection - ENT Exam ENT Exam: Mucous Membranes Moist - Neck Exam Neck Exam: absent: Lymphadenopathy - Respiratory Exam Respiratory Exam: NORMAL BREATHING PATTERN. absent: Chest Wall Tenderness - Cardiovascular Exam Cardiovascular Exam: absent: Gallop, JVD, Rubs - GI/Abdominal Exam GI & Abdominal Exam: Soft, Normal Bowel Sounds - Extremities Exam Extremities Exam: absent: Calf Tenderness - Back Exam Back Exam: absent: CVA tenderness (L), CVA tenderness (R) - Neurological Exam Neurological Exam: Alert - Psychiatric Exam Psychiatric exam: Normal Affect - Skin Skin Exam: absent: Cyanosis Assessment and Plan (1) Chronic kidney disease with end stage renal failure on dialysis Assessment & Plan: Assessment & Plan: End-stage renal disease patient receiving hemodialysis now Abdominal abscess Leukocytosis Hypomagnesemia ESRD, CVA, HTN, DM, PVD S/P resection for perforated viscous and ischemic bowel 11/11/18, R IJ permacath, R AVF, R TMA The plan Patient scheduled to have dialysis today. Diarrhea has subsided somewhat and improving somewhat. Leukocytosis is getting worse Antibiotics as per ID and the primary team Intravenous magnesium given now Status: Chronic (2) Abdominal pain Status: Acute (3) Sepsis Status: Acute
[2018-12-22] MEDS: Cholestyramine 4 gm/Pkt UD PO SCH ×4 (10:38→23:35)
--- NOTE | 2018-12-22 12:24 | CP.PCM.PCO ---
Assessment/Plan - Assessment/Plan Assessment (Free Text): Spoke to Dr. Jiménez, IR who reviewed CT scan. Confirms fluid collection around RLQ incision, but collection is not drainable. Dr. Xie on unit made aware. Pt stable, reports diarrhea overnight, on antibiotics. Electrolytes replaced. Will monitor - Consults Consult Orders: Consultations 12/15/18 08:00 Case Management Referral Routine Comment: Physician Instructions: Reason For Exam: Reason for Referral: Discharge Planning Diabetic Education Referral Routine Comment: Physician Instructions: Reason For Exam: ESRD, GI Diet Nursing Referral for Wound Care Routine Comment: Physician Instructions: Reason For Exam: Surgical wound Social Work Referral Routine Comment: Eval Needs Physician Instructions: Reason For Exam: Discharge plan
[2018-12-22] MEDS: Meropenem 500 MG in Sodium Chloride 0.9% 100 ML IVPB SCH (14:26)
[2018-12-22] MEDS: Potassium & Sodium Phosphate PO SCH ×2 (14:28→17:20)
[2018-12-22] MEDS: Insulin Detemir 100 Units/ml Inj SC SCH (22:02)
--- NOTE | 2018-12-22 23:16 | CP.PCM.PN ---
Subjective - Date & Time of Evaluation Date of Evaluation: 12/22/18 Time of Evaluation: 23:13 - Subjective Subjective: I D NOTE NEW COLLECTION IN AREA OF ANASTAMOSIS SITE NOTED TO NOT DRAINABLE BY IR THUS MUST CONTINUE IV ANTIBIOTIC RX WBC IS 20.5. C.DIFF IS NEGATIVE CONCERN IN REGARD TOTHIS COLLECTION IT HAS OCCURRED DESPITE ANTIBIOTIC RX. RANDOM VANCO LEVEL IS 14.7(PRESENTLY ON PO VANCOMYCIN ALSO. WILL DECREASE IV VANCOMYCIN POST HD TO 500MG FOR PRESENT FEEL THAT THIS PATIENT SHOULD NOT BE DISCHARGED CONSIDERING MULTIPLE HOSPITALIZATIONS c PERSISTANT ABSCESS (THOUGH IMPROVED ) C NEW COLLECTION. Objective - Vital Signs/Intake and Output Vital Signs (last 24 hours): Temp Pulse Resp BP Pulse Ox 97.5 F L 81 20 154/99 H 100 12/22/18 16:41 12/22/18 16:41 12/22/18 16:41 12/22/18 16:41 12/22/18 16:41 - Medications Medications: Current Medications Acetaminophen (Tylenol 325mg Tab) 650 mg PO Q6 PRN PRN Reason: pain (1-10) Last Admin: 12/14/18 01:18 Dose: 650 mg Acetaminophen (Tylenol 325mg Tab) 650 mg PO Q6H PRN PRN Reason: Fever >100.4 F Allopurinol (Zyloprim) 100 mg PO DAILY [facility] Last Admin: 12/22/18 08:25 Dose: 100 mg Amlodipine Besylate (Norvasc) 10 mg PO DAILY [facility] Last Admin: 12/22/18 14:38 Dose: 10 mg Atorvastatin Calcium (Lipitor) 10 mg PO HS [facility] Last Admin: 12/22/18 21:55 Dose: Not Given Calcitriol (Rocaltrol) 0.25 mcg PO DAILY [facility] Last Admin: 12/22/18 08:24 Dose: 0.25 mcg Cholestyramine Resin (Questran) 4 gm PO TID@1000,1400,2100 [facility] Last Admin: 12/22/18 21:56 Dose: Not Given Diphenhydramine HCl (Benadryl) 50 mg IVP Q24H PRN PRN Reason: Allergy symptoms Last Admin: 12/17/18 14:06 Dose: 50 mg Epoetin Mitchell (Procrit) 10,000 unit IV MWF [facility] Last Admin: 12/19/18 17:33 Dose: 10,000 unit Folic Acid (Folic Acid) 1 mg PO DAILY [facility] Last Admin: 12/22/18 08:22 Dose: 1 mg Gabapentin (Neurontin) 100 mg PO TID [facility] Last Admin: 12/22/18 17:20 Dose: 100 mg Glipizide (Glucotrol Xl) 5 mg PO BRK [facility] Last Admin: 12/22/18 08:30 Dose: 5 mg Metronidazole 250 mg/ (Miscellaneous) 50 mls @ 50 mls/hr IVPB Q8 [facility]; Protocol Last Admin: 12/22/18 17:12 Dose: 50 mls/hr Vancomycin HCl 1 gm/ Sodium (Chloride) 250 mls @ 125 mls/hr IVPB MWF [facility]; Protocol Last Admin: 12/19/18 09:26 Dose: 125 mls/hr Meropenem 500 mg/ Sodium (Chloride) 100 mls @ 100 mls/hr IVPB Q24H [facility]; Protocol Last Admin: 12/22/18 14:26 Dose: 100 mls/hr Amikacin Sulfate 500 mg/ (Sodium Chloride) 102 mls @ 101.185 mls/hr IVPB F [facility]; Protocol Insulin Detemir (Levemir) 5 units SC HS [facility] Last Admin: 12/22/18 22:02 Dose: 5 units Insulin Human Lispro (Humalog) 0 units SC ACHS [facility]; Protocol Last Admin: 12/22/18 21:54 Dose: Not Given Lactic Acid (Lac-Hydrin 12% Lotion (225 G)) 1 applic TOP DAILY [facility] Last Admin: 12/22/18 08:26 Dose: 1 applic Lactobacillus Acidophilus (Bacid Acidophilus) 1 cap PO BID [facility] Last Admin: 12/22/18 17:28 Dose: 1 cap Loperamide HCl (Imodium) 2 mg PO Q6 [facility] Last Admin: 12/22/18 22:00 Dose: Not Given Metoclopramide HCl (Reglan) 10 mg IVP Q6 PRN PRN Reason: Nausea/Vomiting Last Admin: 12/14/18 05:00 Dose: 10 mg Metoprolol Tartrate (Lopressor) 50 mg PO Q12 [facility] Last Admin: 12/22/18 21:55 Dose: Not Given Ondansetron HCl (Zofran Inj) 4 mg IVP Q6H PRN PRN Reason: Nausea/Vomiting Last Admin: 01/13/19 12:30 Dose: 4 mg Pantoprazole Sodium (Protonix Ec Tab) 40 mg PO DAILY [facility] Last Admin: 12/22/18 08:26 Dose: 40 mg Potassium Chloride (K-Dur 20 Meq Er Tab) 20 meq PO DAILY [facility] Last Admin: 12/22/18 08:23 Dose: 20 meq Potassium Phos/Sodium Phos (Neutra-Phos) 1 pkt PO BID [facility] Last Admin: 12/22/18 17:20 Dose: 1 pkt Sevelamer Carbonate (Renvela) 1.6 gm PO TIDWM [facility] Last Admin: 12/22/18 18:22 Dose: 1.6 gm Vancomycin HCl (Vancocin (Oral/Rectal Use)) 125 mg PO Q8 [facility]; Protocol Last Admin: 12/22/18 18:22 Dose: 125 mg Vitamin B Complex/Vit C/Folic Acid (Nephro-Elsa) 1 tab PO DAILY [facility] Last Admin: 12/22/18 08:26 Dose: 1 tab - Labs Labs: 12/22/18 06:32 12/22/18 06:42 PT 18.1 Seconds (9.8-13.1) H 12/13/18 17:15 INR 1.6 12/13/18 17:15 APTT 39.7 Seconds (25.6-37.1) H 12/13/18 17:15
[2018-12-22] MEDS: EPOETIN ALFA 10,000 UNIT/ML ML IV SCH (23:35)
[2018-12-23] MEDS: metroNIDAZOLE 500mg/100ml NS 250 MG in Premixed IV 1 EA IVPB SCH ×3 (00:25→21:05)
[2018-12-23] MEDS: Vancomycin 500 mg (Oral/Rectal USE) PO SCH ×4 (01:21→16:50)
[2018-12-23 06:42] LABS: HEMOGLOBIN 7.9 g/dL (12.0-18.0); MEAN CELL VOLUME 75.9 fl (80.0-94.0); MEAN CORPUSCULAR HEMOGLOBIN 24.1 pg (27.0-31.0); MEAN CORPUSCULAR HGB CONC 31.7 g/dL (33.0-37.0); RBC 3.27 Mil/uL (4.40-5.90); RED CELL DISTRIBUTION WIDTH 20.8 % (11.5-14.5); WHITE BLOOD COUNT 11.9 K/uL (4.8-10.8)
[2018-12-23 07:15] LABS: ALB/GLOB RATIO 0.7 (1.0-2.1); CALCIUM 7.3 mg/dL (8.4-10.2)
--- NOTE | 2018-12-23 08:17 | CP.PCM.PN ---
<Henry Hodges - Last Filed: 12/23/18 08:18> Subjective - Date & Time of Evaluation Date of Evaluation: 12/23/18 Time of Evaluation: 08:14 - Subjective Subjective: SURGERY NOTE FOR DR. LÓPEZ 47M seen and examined at bedside. Patient resting comfortably, no acute events overnight. Patient denies abdominal pain, denies nausea, vomiting, tolerating diet. Objective - Vital Signs/Intake and Output Vital Signs (last 24 hours): Temp Pulse Resp BP Pulse Ox 97.6 F 86 20 130/72 99 12/23/18 07:58 12/23/18 07:58 12/23/18 07:58 12/23/18 07:58 12/23/18 07:58 - Medications Medications: Current Medications Acetaminophen (Tylenol 325mg Tab) 650 mg PO Q6 PRN PRN Reason: pain (1-10) Last Admin: 12/14/18 01:18 Dose: 650 mg Acetaminophen (Tylenol 325mg Tab) 650 mg PO Q6H PRN PRN Reason: Fever >100.4 F Allopurinol (Zyloprim) 100 mg PO DAILY [facility] Last Admin: 12/22/18 08:25 Dose: 100 mg Amlodipine Besylate (Norvasc) 10 mg PO DAILY [facility] Last Admin: 12/22/18 14:38 Dose: 10 mg Atorvastatin Calcium (Lipitor) 10 mg PO HS [facility] Last Admin: 12/22/18 21:55 Dose: Not Given Calcitriol (Rocaltrol) 0.25 mcg PO DAILY [facility] Last Admin: 12/22/18 08:24 Dose: 0.25 mcg Cholestyramine Resin (Questran) 4 gm PO TID@1000,1400,2100 [facility] Last Admin: 12/22/18 23:35 Dose: 4 gm Diphenhydramine HCl (Benadryl) 50 mg IVP Q24H PRN PRN Reason: Allergy symptoms Last Admin: 12/17/18 14:06 Dose: 50 mg Epoetin Mitchell (Procrit) 10,000 unit IV MWF [facility] Last Admin: 12/22/18 23:35 Dose: 10,000 unit Folic Acid (Folic Acid) 1 mg PO DAILY [facility] Last Admin: 12/22/18 08:22 Dose: 1 mg Gabapentin (Neurontin) 100 mg PO TID [facility] Last Admin: 12/22/18 17:20 Dose: 100 mg Glipizide (Glucotrol Xl) 5 mg PO BRK [facility] Last Admin: 12/22/18 08:30 Dose: 5 mg Metronidazole 250 mg/ (Miscellaneous) 50 mls @ 50 mls/hr IVPB Q8 [facility]; Protocol Last Admin: 12/23/18 00:25 Dose: 50 mls/hr Vancomycin HCl 1 gm/ Sodium (Chloride) 250 mls @ 125 mls/hr IVPB MWF [facility]; Protocol Last Admin: 12/23/18 01:52 Dose: 125 mls/hr Meropenem 500 mg/ Sodium (Chloride) 100 mls @ 100 mls/hr IVPB Q24H [facility]; Protocol Last Admin: 12/22/18 14:26 Dose: 100 mls/hr Amikacin Sulfate 500 mg/ (Sodium Chloride) 102 mls @ 101.185 mls/hr IVPB MWF [facility]; Protocol Last Admin: 12/22/18 23:39 Dose: 101.185 mls/hr Insulin Detemir (Levemir) 5 units SC HS [facility] Last Admin: 12/22/18 22:02 Dose: 5 units Insulin Human Lispro (Humalog) 0 units SC ACHS [facility]; Protocol Last Admin: 12/22/18 21:54 Dose: Not Given Lactic Acid (Lac-Hydrin 12% Lotion (225 G)) 1 applic TOP DAILY [facility] Last Admin: 12/22/18 08:26 Dose: 1 applic Lactobacillus Acidophilus (Bacid Acidophilus) 1 cap PO BID [facility] Last Admin: 12/22/18 17:28 Dose: 1 cap Loperamide HCl (Imodium) 2 mg PO Q6 [facility] Last Admin: 12/23/18 03:47 Dose: 2 mg Metoclopramide HCl (Reglan) 10 mg IVP Q6 PRN PRN Reason: Nausea/Vomiting Last Admin: 12/14/18 05:00 Dose: 10 mg Metoprolol Tartrate (Lopressor) 50 mg PO Q12 [facility] Last Admin: 12/22/18 21:55 Dose: Not Given Ondansetron HCl (Zofran Inj) 4 mg IVP Q6H PRN PRN Reason: Nausea/Vomiting Last Admin: 12/14/18 12:30 Dose: 4 mg Pantoprazole Sodium (Protonix Ec Tab) 40 mg PO DAILY [facility] Last Admin: 12/22/18 08:26 Dose: 40 mg Potassium Chloride (K-Dur 20 Meq Er Tab) 20 meq PO DAILY [facility] Last Admin: 12/22/18 08:23 Dose: 20 meq Potassium Phos/Sodium Phos (Neutra-Phos) 1 pkt PO BID [facility] Last Admin: 12/22/18 17:20 Dose: 1 pkt Sevelamer Carbonate (Renvela) 1.6 gm PO TIDWM [facility] Last Admin: 12/22/18 18:22 Dose: 1.6 gm Vancomycin HCl (Vancocin (Oral/Rectal Use)) 125 mg PO Q8 [facility]; Protocol Last Admin: 12/23/18 04:31 Dose: 125 mg Vitamin B Complex/Vit C/Folic Acid (Nephro-Elsa) 1 tab PO DAILY [facility] Last Admin: 12/22/18 08:26 Dose: 1 tab - Labs Labs: 12/23/18 05:30 12/23/18 05:30 PT 18.1 Seconds (9.8-13.1) H 12/13/18 17:15 INR 1.6 12/13/18 17:15 APTT 39.7 Seconds (25.6-37.1) H 12/13/18 17:15 - Constitutional Appears: Non-toxic, No Acute Distress - Respiratory Exam Respiratory Exam: Clear to Ausculation Bilateral, NORMAL BREATHING PATTERN - Cardiovascular Exam Cardiovascular Exam: REGULAR RHYTHM, +S1, +S2 - GI/Abdominal Exam GI & Abdominal Exam: Soft. absent: Distended, Firm, Guarding, Rigid, Tenderness, Rebound Additional comments: mild purulent output from midline incision, no tenderness, packing in place - Neurological Exam Neurological Exam: Alert, Awake - Skin Skin Exam: Dry, Intact, Normal Color, Warm Assessment and Plan - Assessment and Plan (Free Text) Assessment: 47M POD#42 s/p extensive small bowel resection d/t ischemia with primary anastamosis. Leukocytosis resolving Plan: - wound care - continue medical management Further recs discuss with Dr. Kiran Hodges, PGY3 <Fernando López - Last Filed: 12/23/18 10:47> Objective - Vital Signs/Intake and Output Vital Signs (last 24 hours): Temp Pulse Resp BP Pulse Ox 97.6 F 86 20 130/72 99 12/23/18 07:58 12/23/18 09:20 12/23/18 07:58 12/23/18 09:20 12/23/18 07:58 - Medications Medications: Current Medications Acetaminophen (Tylenol 325mg Tab) 650 mg PO Q6 PRN PRN Reason: pain (1-10) Last Admin: 12/14/18 01:18 Dose: 650 mg Acetaminophen (Tylenol 325mg Tab) 650 mg PO Q6H PRN PRN Reason: Fever >100.4 F Allopurinol (Zyloprim) 100 mg PO DAILY [facility] Last Admin: 12/23/18 09:13 Dose: 100 mg Amlodipine Besylate (Norvasc) 10 mg PO DAILY [facility] Last Admin: 12/23/18 09:11 Dose: 10 mg Atorvastatin Calcium (Lipitor) 10 mg PO HS [facility] Last Admin: 12/22/18 21:55 Dose: Not Given Calcitriol (Rocaltrol) 0.25 mcg PO DAILY [facility] Last Admin: 12/23/18 09:13 Dose: 0.25 mcg Cholestyramine Resin (Questran) 4 gm PO TID@1000,1400,2100 [facility] Last Admin: 12/23/18 09:12 Dose: 4 gm Diphenhydramine HCl (Benadryl) 50 mg IVP Q24H PRN PRN Reason: Allergy symptoms Last Admin: 12/17/18 14:06 Dose: 50 mg Epoetin Mitchell (Procrit) 10,000 unit IV MWF [facility] Last Admin: 12/22/18 23:35 Dose: 10,000 unit Folic Acid (Folic Acid) 1 mg PO DAILY [facility] Last Admin: 12/23/18 09:10 Dose: 1 mg Gabapentin (Neurontin) 100 mg PO TID [facility] Last Admin: 12/23/18 09:12 Dose: 100 mg Glipizide (Glucotrol Xl) 5 mg PO BRK [facility] Last Admin: 12/23/18 09:10 Dose: 5 mg Metronidazole 250 mg/ (Miscellaneous) 50 mls @ 50 mls/hr IVPB Q8 [facility]; Protocol Last Admin: 12/23/18 09:08 Dose: 50 mls/hr Vancomycin HCl 1 gm/ Sodium (Chloride) 250 mls @ 125 mls/hr IVPB MWF [facility]; Protocol Last Admin: 01/22/19 01:52 Dose: 125 mls/hr Meropenem 500 mg/ Sodium (Chloride) 100 mls @ 100 mls/hr IVPB Q24H [facility]; Protocol Last Admin: 12/22/18 14:26 Dose: 100 mls/hr Amikacin Sulfate 500 mg/ (Sodium Chloride) 102 mls @ 101.185 mls/hr IVPB MWF [facility]; Protocol Last Admin: 12/22/18 23:39 Dose: 101.185 mls/hr Magnesium Sulfate (Magnesium Sulfate 2 Gm/50 Ml Water) 2 gm in 50 mls @ 50 mls/hr IVPB ONCE ONE Stop: 12/23/18 11:06 Insulin Detemir (Levemir) 5 units SC HS [facility] Last Admin: 12/22/18 22:02 Dose: 5 units Insulin Human Lispro (Humalog) 0 units SC ACHS [facility]; Protocol Last Admin: 12/23/18 09:10 Dose: Not Given Lactic Acid (Lac-Hydrin 12% Lotion (225 G)) 1 applic TOP DAILY [facility] Last Admin: 12/23/18 09:08 Dose: 1 applic Lactobacillus Acidophilus (Bacid Acidophilus) 1 cap PO BID [facility] Last Admin: 12/23/18 09:20 Dose: 1 cap Loperamide HCl (Imodium) 2 mg PO Q6 [facility] Last Admin: 12/23/18 09:09 Dose: 2 mg Metoclopramide HCl (Reglan) 10 mg IVP Q6 PRN PRN Reason: Nausea/Vomiting Last Admin: 12/14/18 05:00 Dose: 10 mg Metoprolol Tartrate (Lopressor) 50 mg PO Q12 [facility] Last Admin: 12/23/18 09:20 Dose: 50 mg Ondansetron HCl (Zofran Inj) 4 mg IVP Q6H PRN PRN Reason: Nausea/Vomiting Last Admin: 12/14/18 12:30 Dose: 4 mg Pantoprazole Sodium (Protonix Ec Tab) 40 mg PO DAILY [facility] Last Admin: 12/23/18 09:09 Dose: 40 mg Potassium Chloride (K-Dur 20 Meq Er Tab) 20 meq PO DAILY [facility] Last Admin: 12/23/18 09:09 Dose: 20 meq Potassium Phos/Sodium Phos (Neutra-Phos) 1 pkt PO BID [facility] Last Admin: 12/23/18 09:12 Dose: 1 pkt Sevelamer Carbonate (Renvela) 1.6 gm PO TIDWM [facility] Last Admin: 12/23/18 09:13 Dose: 1.6 gm Vancomycin HCl (Vancocin (Oral/Rectal Use)) 125 mg PO Q8 [facility]; Protocol Last Admin: 12/23/18 09:13 Dose: 125 mg Vitamin B Complex/Vit C/Folic Acid (Nephro-Elsa) 1 tab PO DAILY [facility] Last Admin: 12/23/18 09:14 Dose: 1 tab - Labs Labs: 12/23/18 05:30 12/23/18 05:30 PT 18.1 Seconds (9.8-13.1) H 12/13/18 17:15 INR 1.6 12/13/18 17:15 APTT 39.7 Seconds (25.6-37.1) H 12/13/18 17:15 Assessment and Plan - Assessment and Plan (Free Text) Plan: no overnight events. Tolerating diet, afebrile. +diarrhea WBC trended down. abd: soft, obese, ND, midline wound well healed ~1cm opening with yellowish drainage, non foul smelling cont medical management pt stable from surgery perspective
[2018-12-23] MEDS: Pantoprazole 40 mg EC Tab PO SCH (09:09)
[2018-12-23] MEDS: Potassium Chloride 20 mEq ER Tab PO SCH (09:09)
[2018-12-23] MEDS: Insulin Lispro (humaLOG) 100 Units/ml Inj SC SCH ×4 (09:10→21:53)
[2018-12-23] MEDS: GlipiZIDE 5 mg SR Tab PO SCH (09:10)
[2018-12-23] MEDS: Cholestyramine 4 gm/Pkt UD PO SCH ×3 (09:12→21:08)
[2018-12-23] MEDS: Potassium & Sodium Phosphate PO SCH ×2 (09:12→16:46)
[2018-12-23] MEDS: Sevelamer Carb 0.8 gm/Packet PO SCH ×3 (09:13→16:46)
[2018-12-23] MEDS: Multivitamin Vitamin B Complex (Nephro-Vite) Tab PO SCH (09:14)
[2018-12-23] MEDS: Lactobacillus Acidophilus 500 MU Cap PO SCH ×2 (09:20→16:45)
[2018-12-23] MEDS ORDERED: Magnesium Sulfate 2 gm/50 ml 2 GM/50 ML BAG IVPB ONE (10:07)
--- NOTE | 2018-12-23 12:07 | CP.PCM.PN ---
Subjective - Date & Time of Evaluation Date of Evaluation: 12/23/18 Time of Evaluation: 12:07 - Subjective Subjective: Patient awake and conscious not in acute distress. Generalized weakness Vital signs noted Objective - Vital Signs/Intake and Output Vital Signs (last 24 hours): Temp Pulse Resp BP Pulse Ox 97.6 F 86 20 130/72 99 12/23/18 07:58 12/23/18 09:20 12/23/18 07:58 12/23/18 09:20 12/23/18 07:58 - Medications Medications: Current Medications Acetaminophen (Tylenol 325mg Tab) 650 mg PO Q6 PRN PRN Reason: pain (1-10) Last Admin: 12/14/18 01:18 Dose: 650 mg Acetaminophen (Tylenol 325mg Tab) 650 mg PO Q6H PRN PRN Reason: Fever >100.4 F Allopurinol (Zyloprim) 100 mg PO DAILY [facility] Last Admin: 12/23/18 09:13 Dose: 100 mg Amlodipine Besylate (Norvasc) 10 mg PO DAILY [facility] Last Admin: 12/23/18 09:11 Dose: 10 mg Atorvastatin Calcium (Lipitor) 10 mg PO HS [facility] Last Admin: 12/22/18 21:55 Dose: Not Given Calcitriol (Rocaltrol) 0.25 mcg PO DAILY [facility] Last Admin: 12/23/18 09:13 Dose: 0.25 mcg Cholestyramine Resin (Questran) 4 gm PO TID@1000,1400,2100 [facility] Last Admin: 12/23/18 09:12 Dose: 4 gm Diphenhydramine HCl (Benadryl) 50 mg IVP Q24H PRN PRN Reason: Allergy symptoms Last Admin: 12/17/18 14:06 Dose: 50 mg Epoetin Mitchell (Procrit) 10,000 unit IV MWF [facility] Last Admin: 12/22/18 23:35 Dose: 10,000 unit Folic Acid (Folic Acid) 1 mg PO DAILY [facility] Last Admin: 12/23/18 09:10 Dose: 1 mg Gabapentin (Neurontin) 100 mg PO TID [facility] Last Admin: 12/23/18 09:12 Dose: 100 mg Glipizide (Glucotrol Xl) 5 mg PO BRK [facility] Last Admin: 12/23/18 09:10 Dose: 5 mg Metronidazole 250 mg/ (Miscellaneous) 50 mls @ 50 mls/hr IVPB Q8 [facility]; Protocol Last Admin: 12/23/18 09:08 Dose: 50 mls/hr Vancomycin HCl 1 gm/ Sodium (Chloride) 250 mls @ 125 mls/hr IVPB MWF [facility]; Protocol Last Admin: 12/23/18 01:52 Dose: 125 mls/hr Meropenem 500 mg/ Sodium (Chloride) 100 mls @ 100 mls/hr IVPB Q24H [facility]; Protocol Last Admin: 12/22/18 14:26 Dose: 100 mls/hr Amikacin Sulfate 500 mg/ (Sodium Chloride) 102 mls @ 101.185 mls/hr IVPB F [facility]; Protocol Last Admin: 12/22/18 23:39 Dose: 101.185 mls/hr Insulin Detemir (Levemir) 5 units SC [facility] Last Admin: 12/22/18 22:02 Dose: 5 units Insulin Human Lispro (Humalog) 0 units SC [facility]; Protocol Last Admin: 12/23/18 09:10 Dose: Not Given Lactic Acid (Lac-Hydrin 12% Lotion (225 G)) 1 applic TOP DAILY [facility] Last Admin: 12/23/18 09:08 Dose: 1 applic Lactobacillus Acidophilus (Bacid Acidophilus) 1 cap PO BID [facility] Last Admin: 12/23/18 09:20 Dose: 1 cap Loperamide HCl (Imodium) 2 mg PO Q6 [facility] Last Admin: 12/23/18 09:09 Dose: 2 mg Metoclopramide HCl (Reglan) 10 mg IVP Q6 PRN PRN Reason: Nausea/Vomiting Last Admin: 12/14/18 05:00 Dose: 10 mg Metoprolol Tartrate (Lopressor) 50 mg PO Q12 [facility] Last Admin: 12/23/18 09:20 Dose: 50 mg Ondansetron HCl (Zofran Inj) 4 mg IVP Q6H PRN PRN Reason: Nausea/Vomiting Last Admin: 12/14/18 12:30 Dose: 4 mg Pantoprazole Sodium (Protonix Ec Tab) 40 mg PO DAILY [facility] Last Admin: 12/23/18 09:09 Dose: 40 mg Potassium Chloride (K-Dur 20 Meq Er Tab) 20 meq PO DAILY [facility] Last Admin: 12/23/18 09:09 Dose: 20 meq Potassium Phos/Sodium Phos (Neutra-Phos) 1 pkt PO BID [facility] Last Admin: 12/23/18 09:12 Dose: 1 pkt Sevelamer Carbonate (Renvela) 1.6 gm PO TIDWM [facility] Last Admin: 12/23/18 09:13 Dose: 1.6 gm Vancomycin HCl (Vancocin (Oral/Rectal Use)) 125 mg PO Q8 [facility]; Protocol Last Admin: 12/23/18 09:13 Dose: 125 mg Vitamin B Complex/Vit C/Folic Acid (Nephro-Elsa) 1 tab PO DAILY [facility] Last Admin: 12/23/18 09:14 Dose: 1 tab - Labs Labs: 12/23/18 05:30 12/23/18 05:30 PT 18.1 Seconds (9.8-13.1) H 12/13/18 17:15 INR 1.6 12/13/18 17:15 APTT 39.7 Seconds (25.6-37.1) H 12/13/18 17:15 - Constitutional Appears: No Acute Distress - Eye Exam Eye Exam: Conjunctival injection - ENT Exam ENT Exam: absent: Mucous Membranes Moist - Neck Exam Neck Exam: absent: Lymphadenopathy - Respiratory Exam Respiratory Exam: NORMAL BREATHING PATTERN. absent: Chest Wall Tenderness - Cardiovascular Exam Cardiovascular Exam: absent: Gallop, JVD, Rubs - GI/Abdominal Exam GI & Abdominal Exam: Soft, Normal Bowel Sounds - Extremities Exam Extremities Exam: absent: Calf Tenderness - Back Exam Back Exam: absent: CVA tenderness (L), CVA tenderness (R) - Neurological Exam Neurological Exam: Alert - Skin Skin Exam: absent: Cyanosis Assessment and Plan (1) Chronic kidney disease with end stage renal failure on dialysis Assessment & Plan: Assessment & Plan: End-stage renal disease patient receiving hemodialysis MWF Abdominal abscess And intra-abdominal collection on the recent CAT scan Leukocytosis Hypomagnesemia ESRD, CVA, HTN, DM, PVD S/P resection for perforated viscous and ischemic bowel 11/11/18, R IJ permacath, R AVF, R TMA The plan Hypomagnesemia improving but still low to be given additional magnesium intravenous today. Continue hemodialysis Saturday Antibiotics as noted per ID Status: Chronic (2) Abdominal pain Status: Acute (3) Sepsis Status: Acute
[2018-12-23] MEDS: Meropenem 500 MG in Sodium Chloride 0.9% 100 ML IVPB SCH (15:48)
--- NOTE | 2018-12-23 17:12 | CP.PCM.PN ---
Subjective - Date & Time of Evaluation Date of Evaluation: 12/23/18 Time of Evaluation: 17:20 - Subjective Subjective: I D NOTE CLINICALLY UNCHANGED WBC IS DOWN TO 11.9 \CONTINUE SAME ANTBIOTIC COVERAGE Objective - Vital Signs/Intake and Output Vital Signs (last 24 hours): Temp Pulse Resp BP Pulse Ox 97.5 F L 80 20 151/95 H 100 12/23/18 16:34 12/23/18 16:34 12/23/18 16:34 12/23/18 16:34 12/23/18 16:34 - Medications Medications: Current Medications Acetaminophen (Tylenol 325mg Tab) 650 mg PO Q6 PRN PRN Reason: pain (1-10) Last Admin: 12/14/18 01:18 Dose: 650 mg Acetaminophen (Tylenol 325mg Tab) 650 mg PO Q6H PRN PRN Reason: Fever >100.4 F Allopurinol (Zyloprim) 100 mg PO DAILY [facility] Last Admin: 12/23/18 09:13 Dose: 100 mg Amlodipine Besylate (Norvasc) 10 mg PO DAILY [facility] Last Admin: 12/23/18 09:11 Dose: 10 mg Atorvastatin Calcium (Lipitor) 10 mg PO HS [facility] Last Admin: 12/22/18 21:55 Dose: Not Given Calcitriol (Rocaltrol) 0.25 mcg PO DAILY [facility] Last Admin: 12/23/18 09:13 Dose: 0.25 mcg Cholestyramine Resin (Questran) 4 gm PO TID@1000,1400,2100 [facility] Last Admin: 12/23/18 13:01 Dose: 4 gm Diphenhydramine HCl (Benadryl) 50 mg IVP Q24H PRN PRN Reason: Allergy symptoms Last Admin: 12/17/18 14:06 Dose: 50 mg Epoetin Mitchell (Procrit) 10,000 unit IV MWF [facility] Last Admin: 12/22/18 23:35 Dose: 10,000 unit Folic Acid (Folic Acid) 1 mg PO DAILY [facility] Last Admin: 12/23/18 09:10 Dose: 1 mg Gabapentin (Neurontin) 100 mg PO TID [facility] Last Admin: 12/23/18 16:46 Dose: 100 mg Glipizide (Glucotrol Xl) 5 mg PO BRK [facility] Last Admin: 12/23/18 09:10 Dose: 5 mg Metronidazole 250 mg/ (Miscellaneous) 50 mls @ 50 mls/hr IVPB Q8 [facility]; Protocol Last Admin: 12/23/18 09:08 Dose: 50 mls/hr Meropenem 500 mg/ Sodium (Chloride) 100 mls @ 100 mls/hr IVPB Q24H [facility]; Protocol Last Admin: 12/23/18 15:48 Dose: 100 mls/hr Amikacin Sulfate 500 mg/ (Sodium Chloride) 102 mls @ 101.185 mls/hr IVPB MWF [facility]; Protocol Last Admin: 12/22/18 23:39 Dose: 101.185 mls/hr Vancomycin HCl 500 mg/ Sodium (Chloride) 100 mls @ 100 mls/hr IVPB MWF [facility]; Protocol Insulin Detemir (Levemir) 5 units SC HS [facility] Last Admin: 12/22/18 22:02 Dose: 5 units Insulin Human Lispro (Humalog) 0 units SC ACHS [facility]; Protocol Last Admin: 12/23/18 16:45 Dose: 1 unit Lactic Acid (Lac-Hydrin 12% Lotion (225 G)) 1 applic TOP DAILY [facility] Last Admin: 12/23/18 09:08 Dose: 1 applic Lactobacillus Acidophilus (Bacid Acidophilus) 1 cap PO BID [facility] Last Admin: 12/23/18 16:45 Dose: 1 cap Loperamide HCl (Imodium) 2 mg PO Q6 [facility] Last Admin: 12/23/18 16:46 Dose: 2 mg Metoclopramide HCl (Reglan) 10 mg IVP Q6 PRN PRN Reason: Nausea/Vomiting Last Admin: 12/14/18 05:00 Dose: 10 mg Metoprolol Tartrate (Lopressor) 50 mg PO Q12 [facility] Last Admin: 12/23/18 09:20 Dose: 50 mg Ondansetron HCl (Zofran Inj) 4 mg IVP Q6H PRN PRN Reason: Nausea/Vomiting Last Admin: 12/14/18 12:30 Dose: 4 mg Pantoprazole Sodium (Protonix Ec Tab) 40 mg PO DAILY [facility] Last Admin: 12/23/18 09:09 Dose: 40 mg Potassium Chloride (K-Dur 20 Meq Er Tab) 20 meq PO DAILY [facility] Last Admin: 12/23/18 09:09 Dose: 20 meq Potassium Phos/Sodium Phos (Neutra-Phos) 1 pkt PO BID [facility] Last Admin: 12/23/18 16:46 Dose: 1 pkt Sevelamer Carbonate (Renvela) 1.6 gm PO TIDWM [facility] Last Admin: 12/23/18 16:46 Dose: 1.6 gm Vancomycin HCl (Vancocin (Oral/Rectal Use)) 125 mg PO Q8 [facility]; Protocol Last Admin: 12/23/18 16:50 Dose: 125 mg Vitamin B Complex/Vit C/Folic Acid (Nephro-Elsa) 1 tab PO DAILY [facility] Last Admin: 12/23/18 09:14 Dose: 1 tab - Labs Labs: 12/23/18 05:30 12/23/18 05:30 PT 18.1 Seconds (9.8-13.1) H 12/13/18 17:15 INR 1.6 12/13/18 17:15 APTT 39.7 Seconds (25.6-37.1) H 12/13/18 17:15
[2018-12-23] MEDS: Insulin Detemir 100 Units/ml Inj SC SCH (23:15)
[2018-12-24 06:29] LABS: HEMOGLOBIN 7.7 g/dL (12.0-18.0); MEAN CELL VOLUME 77.8 fl (80.0-94.0); MEAN CORPUSCULAR HEMOGLOBIN 23.6 pg (27.0-31.0); MEAN CORPUSCULAR HGB CONC 30.4 g/dL (33.0-37.0); RBC 3.27 Mil/uL (4.40-5.90); RED CELL DISTRIBUTION WIDTH 21.3 % (11.5-14.5); WHITE BLOOD COUNT 11.8 K/uL (4.8-10.8)
[2018-12-24 06:39] LABS: ALB/GLOB RATIO 0.7 (1.0-2.1); ALBUMIN 2.1 g/dL (3.5-5.0); CALCIUM 7.5 mg/dL (8.4-10.2)
[2018-12-24] MEDS: Insulin Lispro (humaLOG) 100 Units/ml Inj SC SCH ×4 (07:22→22:01)
[2018-12-24] MEDS: Sevelamer Carb 0.8 gm/Packet PO SCH ×3 (09:18→16:37)
[2018-12-24] MEDS: Cholestyramine 4 gm/Pkt UD PO SCH ×3 (09:20→22:00)
[2018-12-24] MEDS: Pantoprazole 40 mg EC Tab PO SCH (09:21)
[2018-12-24] MEDS: Multivitamin Vitamin B Complex (Nephro-Vite) Tab PO SCH (09:21)
[2018-12-24] MEDS: Potassium & Sodium Phosphate PO SCH ×2 (09:21→16:38)
[2018-12-24] MEDS: GlipiZIDE 5 mg SR Tab PO SCH (09:23)
[2018-12-24] MEDS: Vancomycin 500 mg (Oral/Rectal USE) PO SCH ×3 (10:08→16:40)
[2018-12-24] MEDS: Potassium Chloride 20 mEq ER Tab PO SCH (10:48)
[2018-12-24] MEDS: Lactobacillus Acidophilus 500 MU Cap PO SCH ×2 (10:55→16:36)
--- NOTE | 2018-12-24 11:06 | CP.PCM.PN ---
Subjective - Date & Time of Evaluation Date of Evaluation: 12/24/18 Time of Evaluation: 11:05 - Subjective Subjective: Patient awake and conscious No new events reported overnight Vital signs stable Objective - Vital Signs/Intake and Output Vital Signs (last 24 hours): Temp Pulse Resp BP Pulse Ox 98.2 F 85 20 168/85 H 99 12/24/18 08:17 12/24/18 09:29 12/24/18 08:17 12/24/18 09:29 12/24/18 08:17 - Medications Medications: Current Medications Acetaminophen (Tylenol 325mg Tab) 650 mg PO Q6 PRN PRN Reason: pain (1-10) Last Admin: 12/14/18 01:18 Dose: 650 mg Acetaminophen (Tylenol 325mg Tab) 650 mg PO Q6H PRN PRN Reason: Fever >100.4 F Allopurinol (Zyloprim) 100 mg PO DAILY [facility] Last Admin: 12/24/18 09:30 Dose: 100 mg Amlodipine Besylate (Norvasc) 10 mg PO DAILY [facility] Last Admin: 12/24/18 09:29 Dose: 10 mg Atorvastatin Calcium (Lipitor) 10 mg PO HS [facility] Last Admin: 12/23/18 23:15 Dose: 10 mg Calcitriol (Rocaltrol) 0.25 mcg PO DAILY [facility] Last Admin: 12/24/18 09:30 Dose: 0.25 mcg Cholestyramine Resin (Questran) 4 gm PO TID@1000,1400,2100 [facility] Last Admin: 12/24/18 09:20 Dose: 4 gm Diphenhydramine HCl (Benadryl) 50 mg IVP Q24H PRN PRN Reason: Allergy symptoms Last Admin: 12/17/18 14:06 Dose: 50 mg Epoetin Mitchell (Procrit) 10,000 unit IV MWF [facility] Last Admin: 12/22/18 23:35 Dose: 10,000 unit Folic Acid (Folic Acid) 1 mg PO DAILY [facility] Last Admin: 12/24/18 09:20 Dose: 1 mg Gabapentin (Neurontin) 100 mg PO TID [facility] Last Admin: 12/24/18 09:29 Dose: 100 mg Glipizide (Glucotrol Xl) 5 mg PO BRK [facility] Last Admin: 12/24/18 09:23 Dose: 5 mg Meropenem 500 mg/ Sodium (Chloride) 100 mls @ 100 mls/hr IVPB Q24H [facility]; Protocol Last Admin: 12/23/18 15:48 Dose: 100 mls/hr Amikacin Sulfate 500 mg/ (Sodium Chloride) 102 mls @ 101.185 mls/hr IVPB MWF [facility]; Protocol Last Admin: 12/22/18 23:39 Dose: 101.185 mls/hr Vancomycin HCl 500 mg/ Sodium (Chloride) 100 mls @ 100 mls/hr IVPB MWF [facility]; Protocol Last Admin: 12/24/18 09:13 Dose: 100 mls/hr Metronidazole 250 mg/ (Miscellaneous) 50 mls @ 50 mls/hr IVPB Q8H [facility]; Protocol Insulin Detemir (Levemir) 5 units SC [facility] Last Admin: 12/23/18 23:15 Dose: 5 units Insulin Human Lispro (Humalog) 0 units SC [facility]; Protocol Last Admin: 12/24/18 07:22 Dose: Not Given Lactic Acid (Lac-Hydrin 12% Lotion (225 G)) 1 applic TOP DAILY [facility] Last Admin: 12/24/18 09:31 Dose: 1 applic Lactobacillus Acidophilus (Bacid Acidophilus) 1 cap PO BID [facility] Last Admin: 12/23/18 16:45 Dose: 1 cap Loperamide HCl (Imodium) 2 mg PO Q6 [facility] Last Admin: 12/24/18 09:18 Dose: 2 mg Magnesium Oxide (Mag-Ox) 400 mg PO BID [facility] Metoclopramide HCl (Reglan) 10 mg IVP Q6 PRN PRN Reason: Nausea/Vomiting Last Admin: 12/14/18 05:00 Dose: 10 mg Metoprolol Tartrate (Lopressor) 50 mg PO Q12 [facility] Last Admin: 12/24/18 09:19 Dose: 50 mg Ondansetron HCl (Zofran Inj) 4 mg IVP Q6H PRN PRN Reason: Nausea/Vomiting Last Admin: 12/14/18 12:30 Dose: 4 mg Pantoprazole Sodium (Protonix Ec Tab) 40 mg PO DAILY [facility] Last Admin: 12/24/18 09:21 Dose: 40 mg Potassium Chloride (K-Dur 20 Meq Er Tab) 20 meq PO DAILY [facility] Last Admin: 12/24/18 10:48 Dose: Not Given Potassium Phos/Sodium Phos (Neutra-Phos) 1 pkt PO BID [facility] Last Admin: 12/24/18 09:21 Dose: 1 pkt Sevelamer Carbonate (Renvela) 1.6 gm PO TIDWM [facility] Last Admin: 12/24/18 09:18 Dose: 1.6 gm Vancomycin HCl (Vancocin (Oral/Rectal Use)) 125 mg PO Q8 [facility]; Protocol Last Admin: 12/23/18 16:50 Dose: 125 mg Vitamin B Complex/Vit C/Folic Acid (Nephro-Elsa) 1 tab PO DAILY [facility] Last Admin: 12/24/18 09:21 Dose: 1 tab - Labs Labs: 12/24/18 06:10 12/24/18 06:10 PT 18.1 Seconds (9.8-13.1) H 12/13/18 17:15 INR 1.6 12/13/18 17:15 APTT 39.7 Seconds (25.6-37.1) H 12/13/18 17:15 - Constitutional Appears: No Acute Distress - Eye Exam Eye Exam: Conjunctival injection - ENT Exam ENT Exam: Mucous Membranes Moist - Neck Exam Neck Exam: absent: Lymphadenopathy - Respiratory Exam Respiratory Exam: NORMAL BREATHING PATTERN - Cardiovascular Exam Cardiovascular Exam: absent: Gallop, JVD, Rubs - GI/Abdominal Exam GI & Abdominal Exam: Soft, Normal Bowel Sounds - Extremities Exam Extremities Exam: absent: Calf Tenderness - Back Exam Back Exam: absent: CVA tenderness (L), CVA tenderness (R) - Neurological Exam Neurological Exam: Alert - Skin Skin Exam: absent: Cyanosis Assessment and Plan (1) Chronic kidney disease with end stage renal failure on dialysis Assessment & Plan: End-stage renal disease patient receiving hemodialysis MWF Abdominal abscess And intra-abdominal collection on the recent CAT scan Leukocytosis Hypomagnesemia ESRD, CVA, HTN, DM, PVD S/P resection for perforated viscous and ischemic bowel 11/11/18, R IJ permacath, R AVF, R TMA The plan Hypomagnesemia improving but still low to be given oral magnesium oxide Continue hemodialysis Saturday. Patient scheduled to have dialysis shortly. Discussed dialysis order with the dialysis nurse Antibiotics as noted per ID Leukocytosis trending down Status: Chronic (2) Abdominal pain Status: Acute (3) Sepsis Status: Acute
[2018-12-24] MEDS: Magnesium Oxide 400 mg Tab UD PO SCH ×2 (11:20→16:35)
[2018-12-24] MEDS: metroNIDAZOLE 500mg/100ml NS 250 MG in Premixed IV 1 EA IVPB SCH ×2 (12:43→23:31)
[2018-12-24] MEDS: Meropenem 500 MG in Sodium Chloride 0.9% 100 ML IVPB SCH ×2 (14:47→21:56)
[2018-12-24] MEDS: EPOETIN ALFA 10,000 UNIT/ML ML IV SCH (17:57)
[2018-12-24] MEDS: Insulin Detemir 100 Units/ml Inj SC SCH (22:01)
[2018-12-25] MEDS: Vancomycin 500 mg (Oral/Rectal USE) PO SCH ×3 (01:31→16:30)
[2018-12-25] MEDS: metroNIDAZOLE 500mg/100ml NS 250 MG in Premixed IV 1 EA IVPB SCH ×3 (05:02→21:22)
[2018-12-25 07:08] LABS: HEMOGLOBIN 8.6 g/dL (12.0-18.0); MEAN CORPUSCULAR HGB CONC 30.7 g/dL (33.0-37.0); RBC 3.59 Mil/uL (4.40-5.90); RED CELL DISTRIBUTION WIDTH 22.1 % (11.5-14.5); WHITE BLOOD COUNT 11.2 K/uL (4.8-10.8)
[2018-12-25 07:27] LABS: ALB/GLOB RATIO 0.7 (1.0-2.1); ALBUMIN 2.3 g/dL (3.5-5.0); CALCIUM 7.6 mg/dL (8.4-10.2)
[2018-12-25] MEDS: Insulin Lispro (humaLOG) 100 Units/ml Inj SC SCH ×4 (07:30→22:29)
--- NOTE | 2018-12-25 09:00 | CP.PCM.PN ---
Subjective - Date & Time of Evaluation Date of Evaluation: 12/25/18 Time of Evaluation: 09:00 - Subjective Subjective: No new event reported Vital signs stable No nausea or vomiting Objective - Vital Signs/Intake and Output Vital Signs (last 24 hours): Temp Pulse Resp BP Pulse Ox 98.4 F 94 H 20 197/100 H 100 12/25/18 08:41 12/25/18 08:41 12/25/18 08:41 12/25/18 08:41 12/25/18 08:41 Intake and Output: 12/25/18 12/25/18 06:59 18:59 Intake Total 0 Balance 0 - Medications Medications: Current Medications Acetaminophen (Tylenol 325mg Tab) 650 mg PO Q6 PRN PRN Reason: pain (1-10) Last Admin: 12/14/18 01:18 Dose: 650 mg Acetaminophen (Tylenol 325mg Tab) 650 mg PO Q6H PRN PRN Reason: Fever >100.4 F Allopurinol (Zyloprim) 100 mg PO DAILY [facility] Last Admin: 12/24/18 09:30 Dose: 100 mg Amlodipine Besylate (Norvasc) 10 mg PO DAILY [facility] Last Admin: 12/24/18 09:29 Dose: 10 mg Atorvastatin Calcium (Lipitor) 10 mg PO HS [facility] Last Admin: 12/24/18 22:32 Dose: 10 mg Calcitriol (Rocaltrol) 0.25 mcg PO DAILY [facility] Last Admin: 12/24/18 09:30 Dose: 0.25 mcg Cholestyramine Resin (Questran) 4 gm PO TID@1000,1400,2100 [facility] Last Admin: 12/24/18 22:00 Dose: 4 gm Diphenhydramine HCl (Benadryl) 50 mg IVP Q24H PRN PRN Reason: Allergy symptoms Last Admin: 12/17/18 14:06 Dose: 50 mg Epoetin Mitchell (Procrit) 10,000 unit IV MWF [facility] Last Admin: 12/24/18 17:57 Dose: 10,000 unit Folic Acid (Folic Acid) 1 mg PO DAILY [facility] Last Admin: 12/24/18 09:20 Dose: 1 mg Gabapentin (Neurontin) 100 mg PO TID [facility] Last Admin: 12/24/18 16:34 Dose: 100 mg Glipizide (Glucotrol Xl) 5 mg PO BRK [facility] Last Admin: 12/24/18 09:23 Dose: 5 mg Meropenem 500 mg/ Sodium (Chloride) 100 mls @ 100 mls/hr IVPB Q24H [facility]; Protocol Last Admin: 12/24/18 21:56 Dose: 100 mls/hr Amikacin Sulfate 500 mg/ (Sodium Chloride) 102 mls @ 101.185 mls/hr IVPB F [facility]; Protocol Last Admin: 12/24/18 10:20 Dose: 101.185 mls/hr Vancomycin HCl 500 mg/ Sodium (Chloride) 100 mls @ 100 mls/hr IVPB [facility] [place]; P rotocol Last Admin: 12/24/18 09:13 Dose: 100 mls/hr Metronidazole 250 mg/ (Miscellaneous) 50 mls @ 50 mls/hr IVPB Q8H [facility]; Protocol Last Admin: 12/25/18 05:02 Dose: 50 mls/hr Insulin Detemir (Levemir) 5 units SC [facility] Last Admin: 12/24/18 22:01 Dose: 5 units Insulin Human Lispro (Humalog) 0 units SC [facility]; Protocol Last Admin: 12/24/18 22:01 Dose: Not Given Lactic Acid (Lac-Hydrin 12% Lotion (225 G)) 1 applic TOP DAILY [facility] Last Admin: 12/24/18 09:31 Dose: 1 applic Lactobacillus Acidophilus (Bacid Acidophilus) 1 cap PO BID [facility] Last Admin: 12/24/18 16:36 Dose: 1 cap Loperamide HCl (Imodium) 2 mg PO Q6 [facility] Last Admin: 12/25/18 04:12 Dose: 2 mg Magnesium Oxide (Mag-Ox) 400 mg PO BID [facility] Last Admin: 12/24/18 16:35 Dose: 400 mg Metoclopramide HCl (Reglan) 10 mg IVP Q6 PRN PRN Reason: Nausea/Vomiting Last Admin: 12/14/18 05:00 Dose: 10 mg Metoprolol Tartrate (Lopressor) 50 mg PO Q12 [facility] Last Admin: 12/24/18 22:03 Dose: 50 mg Ondansetron HCl (Zofran Inj) 4 mg IVP Q6H PRN PRN Reason: Nausea/Vomiting Last Admin: 12/14/18 12:30 Dose: 4 mg Pantoprazole Sodium (Protonix Ec Tab) 40 mg PO DAILY [facility] Last Admin: 12/24/18 09:21 Dose: 40 mg Potassium Chloride (K-Dur 20 Meq Er Tab) 20 meq PO DAILY [facility] Last Admin: 12/24/18 10:48 Dose: Not Given Potassium Phos/Sodium Phos (Neutra-Phos) 1 pkt PO BID [facility] Last Admin: 12/24/18 16:38 Dose: 1 pkt Sevelamer Carbonate (Renvela) 1.6 gm PO TIDWM [facility]PL[facility] Last Admin: 12/24/18 16:37 Dose: 1.6 gm Vancomycin HCl (Vancocin (Oral/Rectal Use)) 125 mg PO Q8 [facility]; Protocol Last Admin: 12/25/18 01:31 Dose: 125 mg Vitamin B Complex/Vit C/Folic Acid (Nephro-Elsa) 1 tab PO DAILY [facility] Last Admin: 12/24/18 09:21 Dose: 1 tab - Labs Labs: 12/25/18 05:35 12/25/18 05:35 PT 18.1 Seconds (9.8-13.1) H 12/13/18 17:15 INR 1.6 12/13/18 17:15 APTT 39.7 Seconds (25.6-37.1) H 12/13/18 17:15 - Constitutional Appears: No Acute Distress - Eye Exam Eye Exam: Conjunctival injection - ENT Exam ENT Exam: Mucous Membranes Moist - Respiratory Exam Respiratory Exam: NORMAL BREATHING PATTERN. absent: Chest Wall Tenderness, Rhonchi - Cardiovascular Exam Cardiovascular Exam: absent: Gallop, JVD, Rubs - GI/Abdominal Exam GI & Abdominal Exam: Soft, Normal Bowel Sounds - Extremities Exam Extremities Exam: absent: Calf Tenderness - Back Exam Back Exam: absent: CVA tenderness (L), CVA tenderness (R) - Neurological Exam Neurological Exam: Alert - Psychiatric Exam Psychiatric exam: Normal Affect - Skin Skin Exam: absent: Cyanosis Assessment and Plan (1) Chronic kidney disease with end stage renal failure on dialysis Assessment & Plan: End-stage renal disease patient receiving hemodialysis MWF Abdominal abscess And intra-abdominal collection on the recent CAT scan Leukocytosis Anemia Hypomagnesemia ESRD, CVA, HTN, DM, PVD S/P resection for perforated viscous and ischemic bowel 11/11/18, R IJ permacath, R AVF, R TMA The plan Hypomagnesemia improving but still low to be given oral magnesium oxide Continue hemodialysis Saturday. Antibiotics as noted per ID Leukocytosis trending down Diabetic management with glycemic control Status: Chronic (2) Abdominal pain Status: Acute (3) Sepsis Status: Acute
[2018-12-25] MEDS: Lactobacillus Acidophilus 500 MU Cap PO SCH ×2 (09:30→16:31)
[2018-12-25] MEDS: Cholestyramine 4 gm/Pkt UD PO SCH ×3 (09:30→21:26)
[2018-12-25] MEDS: Pantoprazole 40 mg EC Tab PO SCH (09:31)
[2018-12-25] MEDS: Sevelamer Carb 0.8 gm/Packet PO SCH ×3 (09:31→16:32)
[2018-12-25] MEDS: Magnesium Oxide 400 mg Tab UD PO SCH ×2 (09:31→16:31)
[2018-12-25] MEDS: Potassium Chloride 20 mEq ER Tab PO SCH (09:31)
[2018-12-25] MEDS: GlipiZIDE 5 mg SR Tab PO SCH (09:32)
[2018-12-25] MEDS: Potassium & Sodium Phosphate PO SCH (09:33)
[2018-12-25] MEDS: Multivitamin Vitamin B Complex (Nephro-Vite) Tab PO SCH (09:33)
[2018-12-25] MEDS: Meropenem 500 MG in Sodium Chloride 0.9% 100 ML IVPB SCH (15:45)
[2018-12-25 16:11] VITALS: O2SAT 99
[2018-12-25] MEDS: Insulin Detemir 100 Units/ml Inj SC SCH (21:23)
[2018-12-26] MEDS: metroNIDAZOLE 500mg/100ml NS 250 MG in Premixed IV 1 EA IVPB SCH ×2 (04:44→15:47)
[2018-12-26 06:25] LABS: HEMOGLOBIN 8.2 g/dL (12.0-18.0); MEAN CELL VOLUME 77.7 fl (80.0-94.0); MEAN CORPUSCULAR HEMOGLOBIN 24.4 pg (27.0-31.0); MEAN CORPUSCULAR HGB CONC 31.3 g/dL (33.0-37.0); RBC 3.37 Mil/uL (4.40-5.90); RED CELL DISTRIBUTION WIDTH 22.4 % (11.5-14.5); WHITE BLOOD COUNT 10.4 K/uL (4.8-10.8)
[2018-12-26 06:49] LABS: ALB/GLOB RATIO 0.7 (1.0-2.1); ALBUMIN 2.1 g/dL (3.5-5.0); CALCIUM 7.7 mg/dL (8.4-10.2)
[2018-12-26 08:11] VITALS: RESP 20
[2018-12-26] MEDS: Vancomycin 500 mg (Oral/Rectal USE) PO SCH ×5 (09:00→18:35)
[2018-12-26] MEDS: Insulin Lispro (humaLOG) 100 Units/ml Inj SC SCH ×3 (09:27→18:31)
[2018-12-26] MEDS: Multivitamin Vitamin B Complex (Nephro-Vite) Tab PO SCH (09:54)
[2018-12-26] MEDS: Magnesium Oxide 400 mg Tab UD PO SCH ×2 (09:54→18:34)
[2018-12-26] MEDS: Potassium & Sodium Phosphate PO SCH (09:55)
[2018-12-26] MEDS: Pantoprazole 40 mg EC Tab PO SCH (09:56)
[2018-12-26] MEDS: GlipiZIDE 5 mg SR Tab PO SCH (09:57)
[2018-12-26] MEDS: Potassium Chloride 20 mEq ER Tab PO SCH (09:58)
[2018-12-26] MEDS: Sevelamer Carb 0.8 gm/Packet PO SCH (10:03)
[2018-12-26] MEDS: Cholestyramine 4 gm/Pkt UD PO SCH ×2 (10:30→15:30)
--- NOTE | 2018-12-26 11:32 | CP.PCM.PCO ---
Assessment/Plan - Assessment/Plan Assessment (Free Text): Discussed with Dr. Elam, pt may be discharged to [facility] with close follow up. Patient requires IV Merrem 500mg daily and Amikacin 500mg MWF for minimum of 2-3 weeks. Definitive duration of IV antibiotics will be based on repeat CT scan which can be done next week. Patient, RN, SW and Dr. Xie aware. Patient is stable to be discharged to [facility]. Magnesium replaced. Meds as per med rec. Dr. Xie will follow in rehab. - Consults Consult Orders: Consultations
--- NOTE | 2018-12-26 11:45 | CP.PCM.PN ---
Subjective - Date & Time of Evaluation Date of Evaluation: 12/26/18 Time of Evaluation: 11:44 - Subjective Subjective: renal follow up note no events overnight vss heent normal nad opmoist no jvd [id number] no resp distress abd soft cooperaitve ao times 3 End-stage renal disease patient receiving hemodialysis MWF Abdominal abscess And intra-abdominal collection on the recent CAT scan Leukocytosis Anemia Hypomagnesemia ESRD, CVA, HTN, DM, PVD S/P resection for perforated viscous and ischemic bowel 11/11/18, R IJ permacath, R AVF, R TMA continue hd mwf epogen for anemia sec hyperpth: i tracy stopped his renvela as phos levels low and decreased is his neutraphos to daily bp stable abx per primary team low magnesium level on supplementation please call us if any qs [phone] Objective - Vital Signs/Intake and Output Vital Signs (last 24 hours): Temp Pulse Resp BP Pulse Ox 97.9 F 79 20 123/78 99 12/26/18 08:10 12/26/18 10:00 12/26/18 08:10 12/26/18 10:00 12/26/18 08:10 - Medications Medications: Current Medications Acetaminophen (Tylenol 325mg Tab) 650 mg PO Q6 PRN PRN Reason: pain (1-10) Last Admin: 12/14/18 01:18 Dose: 650 mg Acetaminophen (Tylenol 325mg Tab) 650 mg PO Q6H PRN PRN Reason: Fever >100.4 F Allopurinol (Zyloprim) 100 mg PO DAILY [facility] Last Admin: 12/26/18 09:54 Dose: 100 mg Amlodipine Besylate (Norvasc) 10 mg PO DAILY [facility] Last Admin: 12/26/18 10:00 Dose: 10 mg Atorvastatin Calcium (Lipitor) 10 mg PO HS [facility] Last Admin: 12/25/18 21:23 Dose: 10 mg Calcitriol (Rocaltrol) 0.25 mcg PO DAILY [facility] Last Admin: 12/26/18 09:56 Dose: 0.25 mcg Cholestyramine Resin (Questran) 4 gm PO TID@1000,1400,2100 [facility] Last Admin: 12/25/18 21:26 Dose: 4 gm Diphenhydramine HCl (Benadryl) 50 mg IVP Q24H PRN PRN Reason: Allergy symptoms Last Admin: 12/17/18 14:06 Dose: 50 mg Epoetin Mitchell (Procrit) 10,000 unit IV MWF [facility] Last Admin: 12/24/18 17:57 Dose: 10,000 unit Folic Acid (Folic Acid) 1 mg PO DAILY [facility] Last Admin: 12/26/18 09:56 Dose: 1 mg Gabapentin (Neurontin) 100 mg PO TID [facility] Last Admin: 12/26/18 09:54 Dose: 100 mg Glipizide (Glucotrol Xl) 5 mg PO BRK [facility] Last Admin: 12/26/18 09:57 Dose: 5 mg Meropenem 500 mg/ Sodium (Chloride) 100 mls @ 100 mls/hr IVPB Q24H [facility]; Protocol Last Admin: 12/25/18 15:45 Dose: 100 mls/hr Amikacin Sulfate 500 mg/ (Sodium Chloride) 102 mls @ 101.185 mls/hr IVPB [facility]; Protocol Last Admin: 12/26/18 09:53 Dose: 101.185 mls/hr Vancomycin HCl 500 mg/ Sodium (Chloride) 100 mls @ 100 mls/hr IVPB [facility]; Protocol Last Admin: 12/26/18 10:07 Dose: 100 mls/hr Metronidazole 250 mg/ (Miscellaneous) 50 mls @ 50 mls/hr IVPB Q8H [facility]; Protocol Last Admin: 12/26/18 04:44 Dose: 50 mls/hr Insulin Detemir (Levemir) 5 units SC [facility] Last Admin: 12/25/18 21:23 Dose: 5 units Insulin Human Lispro (Humalog) 0 units SC [facility]; Protocol Last Admin: 12/26/18 09:27 Dose: Not Given Lactic Acid (Lac-Hydrin 12% Lotion (225 G)) 1 applic TOP DAILY [facility] Last Admin: 12/26/18 09:58 Dose: 1 applic Lactobacillus Acidophilus (Bacid Acidophilus) 1 cap PO BID [facility] Last Admin: 12/25/18 16:31 Dose: 1 cap Loperamide HCl (Imodium) 2 mg PO Q6 [facility] Last Admin: 12/26/18 09:57 Dose: 2 mg Magnesium Oxide (Mag-Ox) 400 mg PO BID [facility] Last Admin: 12/26/18 09:54 Dose: 400 mg Metoclopramide HCl (Reglan) 10 mg IVP Q6 PRN PRN Reason: Nausea/Vomiting Last Admin: 12/14/18 05:00 Dose: 10 mg Metoprolol Tartrate (Lopressor) 50 mg PO Q12 [facility] Last Admin: 12/26/18 09:56 Dose: 50 mg Ondansetron HCl (Zofran Inj) 4 mg IVP Q6H PRN PRN Reason: Nausea/Vomiting Last Admin: 12/14/18 12:30 Dose: 4 mg Pantoprazole Sodium (Protonix Ec Tab) 40 mg PO DAILY [facility] Last Admin: 12/26/18 09:56 Dose: 40 mg Potassium Chloride (K-Dur 20 Meq Er Tab) 20 meq PO DAILY [facility] Last Admin: 12/26/18 09:58 Dose: 20 meq Potassium Phos/Sodium Phos (Neutra-Phos) 1 pkt PO DAILY [facility] Vancomycin HCl (Vancocin (Oral/Rectal Use)) 125 mg PO Q8 [facility]; Protocol Last Admin: 12/26/18 10:06 Dose: 125 mg Vitamin B Complex/Vit C/Folic Acid (Nephro-Elsa) 1 tab PO DAILY [facility] Last Admin: 12/26/18 09:54 Dose: 1 tab - Labs Labs: 12/26/18 05:25 12/26/18 05:25 PT 18.1 Seconds (9.8-13.1) H 12/13/18 17:15 INR 1.6 12/13/18 17:15 APTT 39.7 Seconds (25.6-37.1) H 12/13/18 17:15
[2018-12-26] MEDS ORDERED: Magnesium Sulfate 2 gm/50 ml 2 GM/50 ML BAG IVPB ONE (12:31)
[2018-12-26] MEDS: Lactobacillus Acidophilus 500 MU Cap PO SCH ×2 (15:27→18:39)
[2018-12-26] MEDS: EPOETIN ALFA 10,000 UNIT/ML ML IV SCH (15:28)
[2018-12-26] MEDS: Meropenem 500 MG in Sodium Chloride 0.9% 100 ML IVPB SCH (15:46)
[2018-12-26 16:13] VITALS: BP 136/82; PULSE 82; TEMP 98.3
[2018-12-27] MEDS ORDERED: Potassium & Sodium Phosphate PO SCH (09:00)
== END 2018-12-26 20:25 | DRG 862 ==
LOC: H.ER 16:46 → H.ERHOLD 20:36 → H.ICU/CCU 21:46 → H.MEDSURG1 12-18 22:15
PROVIDERS: ADMIT Family Medicine; ATTEND Family Medicine
PROC: 5A1D70Z Performance of Urinary Filtration, Intermittent, Less than 6 Hours Per Day (ICD-10-PCS; 2018-12-15)
PROC: 02HV33Z Insertion of Infusion Device into Superior Vena Cava, Percutaneous Approach (ICD-10-PCS; principal; 2018-12-16)
PROC: B518ZZA Fluoroscopy of Superior Vena Cava, Guidance (ICD-10-PCS; 2018-12-16)
PROC: 3E04329 Introduction of Other Anti-infective into Central Vein, Percutaneous Approach (ICD-10-PCS; 2018-12-16)
PROC: B548ZZA Ultrasonography of Superior Vena Cava, Guidance (ICD-10-PCS; 2018-12-16)
PROC: 5A1D70Z Performance of Urinary Filtration, Intermittent, Less than 6 Hours Per Day (ICD-10-PCS; 2018-12-17)
PROC: 5A1D70Z Performance of Urinary Filtration, Intermittent, Less than 6 Hours Per Day (ICD-10-PCS; 2018-12-19)
PROC: 5A1D70Z Performance of Urinary Filtration, Intermittent, Less than 6 Hours Per Day (ICD-10-PCS; 2018-12-22)
PROC: 30233N1 Transfusion of Nonautologous Red Blood Cells into Peripheral Vein, Percutaneous Approach (ICD-10-PCS; 2018-12-24)
PROC: 5A1D70Z Performance of Urinary Filtration, Intermittent, Less than 6 Hours Per Day (ICD-10-PCS; 2018-12-24)
DX: T81.43XA Infection following a procedure, organ and space surgical site, initial encounter (principal); A41.9 Sepsis, unspecified organism; N18.6 End stage renal disease; R65.21 Severe sepsis with septic shock; L02.211 Cutaneous abscess of abdominal wall; I12.0 Hypertensive chronic kidney disease with stage 5 chronic kidney disease or end stage renal disease; E87.2 Acidosis; N17.9 Acute kidney failure, unspecified; N25.81 Secondary hyperparathyroidism of renal origin; T81.44XA Sepsis following a procedure, initial encounter; B95.7 Other staphylococcus as the cause of diseases classified elsewhere; D63.8 Anemia in other chronic diseases classified elsewhere; E87.6 Hypokalemia; E86.0 Dehydration; E11.43 Type 2 diabetes mellitus with diabetic autonomic (poly)neuropathy; K31.84 Gastroparesis; E11.22 Type 2 diabetes mellitus with diabetic chronic kidney disease; E11.51 Type 2 diabetes mellitus with diabetic peripheral angiopathy without gangrene; E66.9 Obesity, unspecified; Z68.35 Body mass index [BMI] 35.0-35.9, adult; E83.42 Hypomagnesemia; Z98.890 Other specified postprocedural states; I95.9 Hypotension, unspecified; K52.89 Other specified noninfective gastroenteritis and colitis; E83.39 Other disorders of phosphorus metabolism; E78.5 Hyperlipidemia, unspecified; E78.00 Pure hypercholesterolemia, unspecified; Z99.2 Dependence on renal dialysis; Z79.84 Long term (current) use of oral hypoglycemic drugs; Z86.73 Personal history of transient ischemic attack (TIA), and cerebral infarction without residual deficits; Z87.11 Personal history of peptic ulcer disease; Z87.891 Personal history of nicotine dependence; Z88.0 Allergy status to penicillin

== ENCOUNTER 2019-01-28 15:52 | Inpatient (IN) | payer OTHER ==
[2019-01-28 15:53] VITALS: BMI 35.9
[2019-01-28 17:08] LABS: BASO # 0.1 K/uL (0.0-0.2); BASO % 0.6 % (0.0-2.0); EOS # 0.1 K/uL (0.0-0.7); EOS % 0.8 % (0.0-4.0); HEMOGLOBIN 12.1 g/dL (12.0-18.0); LYMPH # 2.8 K/uL (1.0-4.3); LYMPH % 28.1 % (20.0-40.0); MEAN CELL VOLUME 78.5 fl (80.0-94.0); MEAN CORPUSCULAR HEMOGLOBIN 24.6 pg (27.0-31.0); MEAN CORPUSCULAR HGB CONC 31.3 g/dL (33.0-37.0); MEAN PLATELET VOLUME 8.2 fl (7.2-11.7); MONO # 0.5 K/uL (0.0-0.8); MONO % 4.9 % (0.0-10.0); NEUT # 6.5 K/uL (1.8-7.0); NEUT % 65.6 % (50.0-75.0); NRBC % 0.1 % (0.0-0.0); RBC 4.91 Mil/uL (4.40-5.90); RED CELL DISTRIBUTION WIDTH 23.6 % (11.5-14.5); WHITE BLOOD COUNT 9.9 K/uL (4.8-10.8)
[2019-01-28 17:24] LABS: ALB/GLOB RATIO 0.8 (1.0-2.1); CALCIUM 8.6 mg/dL (8.4-10.2)
[2019-01-28 17:30] LABS: TROPONIN I 0.017 ng/mL (0.00-0.120)
--- NOTE | 2019-01-28 17:38 | CT ---
PROCEDURE: CT Abdomen and Pelvis without Oral or IV contrast. HISTORY: abd pain/vomiting/hx laparotomy and SBO COMPARISON: CT abdomen and pelvis with IV contrast performed 12/19/18 TECHNIQUE: Contiguous axial images of the abdomen and pelvis. No oral or IV contrast administered. Coronal and Sagittal reformats generated and reviewed. Radiation dose: Total exam DLP = 883.54 mGy-cm. This CT exam was performed using one or more of the following dose reduction techniques: Automated exposure control, adjustment of the mA and/or kV according to patient size, and/or use of iterative reconstruction technique. FINDINGS: There is limited evaluation of the solid organs without the administration of IV contrast. LOWER THORAX: Mild atelectasis, lingula. No visible consolidation, pleural effusion, or pneumothorax. Small pericardial effusion. Markedly thick-walled distal esophagus. LIVER: Unremarkable unenhanced appearance. GALLBLADDER AND BILE DUCTS: Unremarkable unenhanced appearance. PANCREAS: Unremarkable unenhanced appearance. SPLEEN: Unremarkable unenhanced appearance. ADRENALS: Unremarkable unenhanced appearance. KIDNEYS AND URETERS: No hydronephrosis or obstructing renal calculus. BLADDER: Mildly thick-walled urinary bladder. REPRODUCTIVE: The prostate gland measures approximately 3.3 x 5.0 cm. APPENDIX: The appendix appears within normal limits of caliber. No secondary signs of acute appendicitis. BOWEL: The stomach is nondistended. Lack of oral contrast limits evaluation for bowel pathology. The bowel loops appear within normal limits of caliber without evidence of intestinal obstruction. Anastomotic bowel suture material noted within the right abdomen. PERITONEUM: No significant free fluid. No definite free air. LYMPH NODES: Sub cm retroperitoneal and mesenteric adenopathy, nonspecific. VASCULATURE: Atherosclerotic calcification of the aorta and branches. No aortic aneurysm. BONES: Degenerative changes. OTHER FINDINGS: None. IMPRESSION: Markedly thick-walled distal esophagus. Recommend clinical correlation including endoscopy for further evaluation. Mildly thick-walled urinary bladder. Recommend correlation with urinalysis. Mild atelectasis, lingula. Small pericardial effusion. Additional findings as above.
--- NOTE | 2019-01-28 18:39 | ED PDOC ---
HPI: Abdomen Time Seen by Provider: 01/28/19 16:07 Chief Complaint (Nursing): GI Problem Chief Complaint (Provider): vomiting diarrhea abdominal pain History Per: Patient, Head Trimmer History/Exam Limitations: no limitations Onset/Duration Of Symptoms: Days (2), Gradual Current Symptoms Are (Timing): Still Present Context: Food Severity: Severe Location Of Pain/Discomfort: Diffuse Quality Of Discomfort: Cramping Associated Symptoms: Nausea, Vomiting, Diarrhea, Loss Of Appetite Exacerbating Factors: Food Alleviating Factors: None Last Bowel Movement: Today Additional Complaint(s): 48yo male multiple medical problems including ESRD on HD, CVA, HTN, DM, presents c/o return of vomiting this time associated with diffuse abdominal pain and nonbloody diarrhea. Prior charts reviewed revealing admissions over last 2 months for necrotic bowel requiring laparotomy. States last hemodialyis was 5 days ago, states because of vomiting/weakness unable to get to dialysis. Denies SOB. Admits to some urination daily. Past Medical History Reviewed: Historical Data, Nursing Documentation, Vital Signs Vital Signs: Last Vital Signs Temp 98.7 F 01/28/19 15:56 Pulse 108 H 01/28/19 15:56 Resp 16 01/28/19 15:56 BP 138/89 01/28/19 15:56 Pulse Ox 100 01/28/19 15:56 - Medical History PMH: Anemia, CVA, Diabetes (type II), Gastritis, HTN, Hypercholesterolemia, Hyperlipidemia, End Stage Renal Disease, Chronic Kidney Disease Denies: Arthritis, CHF, COPD, HIV, Hypothyroidism, Rheumatoid Arthritis - Surgical History Other surgeries: R AV graft - Family History Family History: States: Unknown Family Hx - Living Arrangements Living Arrangements: With Family - Immunization History Hx Tetanus Toxoid Vaccination: No Hx Influenza Vaccination: No Hx Pneumococcal Vaccination: No - Home Medications Home Medications: Ambulatory Orders Medication Instructions Recorded Ferrous Sulfate [Feosol] 325 mg PO TID 10/16/18 Allopurinol [Zyloprim] 100 mg PO DAILY #30 tab 11/06/18 Calcitriol 0.25 mcg PO TID 30 Days capsule 11/06/18 Folic Acid 1 mg PO DAILY #30 tab 11/06/18 Gabapentin [Neurontin] 100 mg PO TID 30 Days capsule 11/06/18 Rosuvastatin Calcium [Crestor] 5 mg PO HS 30 Days tab 12/06/18 Ammonium Lactate 12% [Lac-Hydrin 1 applic TOP DAILY #1 bottle 12/04/18 12% Lotion (225 g)] Losartan [Cozaar] 50 mg PO QPM #30 tab 12/04/18 SITagliptin [Januvia] 25 mg PO BID 12/05/18 Vitamin B Complex/Vit C/Folic 1 tab PO DAILY 12/05/18 [Nephro-Elsa] Epoetin Mitchell [Procrit] 10,000 unit IV MWF ml 12/26/18 Insulin Detemir [Levemir] 5 units SC HS vial 12/26/18 Lactobacillus Acidophilus [Bacid 1 cap PO BID cap 12/26/18 Acidophilus] Magnesium Oxide [Mag-Ox] 400 mg PO BID tab 12/26/18 Metoprolol Tartrate [Lopressor] 50 mg PO Q12 tab 12/26/18 amLODIPine [Norvasc] 10 mg PO DAILY tab 12/26/18 Cholestyramine [Questran] 4 gm PO TID 01/28/19 Famotidine [Pepcid] 40 mg PO DAILY 01/28/19 Ketotifen Fumarate [Zaditor] 1 drop EACHEYE BID 01/28/19 Sodium,Potassium Phosphates 1 pkt PO DAILY 01/28/19 [Phosphorous Powder Packet] - Allergies Allergies/Adverse Reactions: Allergies Allergy/AdvReac Type Severity Reaction Status Date / Time Penicillins Allergy RASH Verified 12/13/18 16:48 Review of Systems ROS Statement: Except As Marked, All Systems Reviewed And Found Negative Constitutional: Negative for: Fever Cardiovascular: Negative for: Chest Pain Respiratory: Positive for: Cough Gastrointestinal: Positive for: Nausea, Vomiting, Abdominal Pain, Diarrhea Genitourinary Male: Negative for: Dysuria Musculoskeletal: Negative for: Neck Pain, Back Pain Skin: Negative for: Rash Neurological: Positive for: Dizziness. Negative for: Weakness, Numbness Psych: Negative for: Suicidal ideation Physical Exam - Reviewed Nursing Documentation Reviewed: Yes Vital Signs Reviewed: Yes - Physical Exam Appears: Positive for: Well, Non-toxic, No Acute Distress Head Exam: Positive for: ATRAUMATIC, NORMAL INSPECTION, NORMOCEPHALIC Skin: Positive for: Normal Color, Warm, DRY Eye Exam: Positive for: EOMI, Normal appearance, PERRL ENT: Positive for: Normal ENT Inspection Neck: Positive for: Normal, Painless ROM Cardiovascular/Chest: Positive for: Regular Rate, Rhythm Respiratory: Positive for: CNT, Normal Breath Sounds Gastrointestinal/Abdominal: Positive for: Soft, Tenderness, Other (midline scar healed). Negative for: Distended, Rebound Back: Positive for: Normal Inspection Extremity: Positive for: Normal ROM Neurologic/Psych: Positive for: Alert, Oriented. Negative for: Motor/Sensory Deficits - Laboratory Results Result Diagrams: 01/28/19 16:51 01/28/19 16:51 Lab Results: Troponin I 0.0170 ng/mL (0.00-0.120) 01/28/19 16:51 Total Bilirubin 0.5 mg/dl (0.2-1.3) 01/28/19 16:51 AST 20 U/L (17-59) 01/28/19 16:51 ALT 25 U/L (21-72) 01/28/19 16:51 Alkaline Phosphatase 111 U/L (38-126) 01/28/19 16:51 Total Protein 7.0 G/DL (6.3-8.2) 01/28/19 16:51 Albumin 3.0 g/dL (3.5-5.0) L D 01/28/19 16:51 Globulin 4.0 gm/dL (2.2-3.9) H 01/28/19 16:51 Albumin/Globulin Ratio 0.8 (1.0-2.1) L 01/28/19 16:51 - ECG O2 Sat by Pulse Oximetry: 100 Pulse Ox Interpretation: Normal Medical Decision Making Medical Decision Making: difficult IV access, multiple attempts made eventually obtained 24g L hand labs reviewed, K+ normal, given diarrhea likely protective of hyperkalemia given no HD x5 days. WBC normal. CT report reviewed: Accession No. : [id number] Patient Name / ID : ALYX GREEN / [id number] Exam Date : 01/28/2019 16:53:26 ( Approved ) Study Comment : Sex / Age : M / 48Y Creator : Dorita Jacinto MD Dictator : Dorita Jacinto MD Spiral Winding Machine Helper : Auto Body Estimator : Dorita Jacinto MD Approver2 : Report Date : 01/28/2019 17:34:39 My Comment : PROCEDURE: CT Abdomen and Pelvis without Oral or IV contrast. HISTORY: abd pain/vomiting/hx laparotomy and SBO COMPARISON: CT abdomen and pelvis with IV contrast performed 12/19/18 TECHNIQUE: Contiguous axial images of the abdomen and pelvis. No oral or IV contrast administered. Coronal and Sagittal reformats generated and reviewed. Radiation dose: Total exam DLP = 883.54 mGy-cm. This CT exam was performed using one or more of the following dose reduction techniques: Automated exposure control, adjustment of the mA and/or kV according to patient size, and/or use of iterative reconstruction technique. FINDINGS: There is limited evaluation of the solid organs without the administration of IV contrast. LOWER THORAX: Mild atelectasis, lingula. No visible consolidation, pleural effusion, or pneumothorax. Small pericardial effusion. Markedly thick-walled distal esophagus. LIVER: Unremarkable unenhanced appearance. GALLBLADDER AND BILE DUCTS: Unremarkable unenhanced appearance. PANCREAS: Unremarkable unenhanced appearance. SPLEEN: Unremarkable unenhanced appearance. ADRENALS: Unremarkable unenhanced appearance. KIDNEYS AND URETERS: No hydronephrosis or obstructing renal calculus. BLADDER: Mildly thick-walled urinary bladder. REPRODUCTIVE: The prostate gland measures approximately 3.3 x 5.0 cm. APPENDIX: The appendix appears within normal limits of caliber. No secondary signs of acute appendicitis. BOWEL: The stomach is nondistended. Lack of oral contrast limits evaluation for bowel pathology. The bowel loops appear within normal limits of caliber without evidence of intestinal obstruction. Anastomotic bowel suture material noted within the right abdomen. PERITONEUM: No significant free fluid. No definite free air. LYMPH NODES: Sub cm retroperitoneal and mesenteric adenopathy, nonspecific. VASCULATURE: Atherosclerotic calcification of the aorta and branches. No aortic aneurysm. BONES: Degenerative changes. OTHER FINDINGS: None. IMPRESSION: Markedly thick-walled distal esophagus. Recommend clinical correlation including endoscopy for further evaluation. Mildly thick-walled urinary bladder. Recommend correlation with urinalysis. Mild atelectasis, lingula. Small pericardial effusion. Additional findings as above. Gentle IVF initiated and antiemetic Remains unwell appearing, vomiting, admit to Dr Lake covering PMD Gerard Discussed case [id number] and care transferred Disposition - Clinical Impression Clinical Impression: Intractable vomiting, ESRD (end stage renal disease) - Patient ED Disposition Is Patient to be Admitted: No Counseled Patient/Family Regarding: Studies Performed, Diagnosis, Need For Followup - Disposition Disposition: Routine/Home Disposition Time: 18:30 Condition: STABLE
[2019-01-28] MEDS: Sodium Chloride 0.9% 250 ML IV SCH (23:40)
--- NOTE | 2019-01-29 07:55 | CP.PCM.HP ---
<Sultan Seferino - Last Filed: 01/29/19 09:51> History of Present Illness - History of Present Illness History of Present Illness: 48 year old male with PMHx of ESRD on HD (MWF), CVA, DMII, HTN, SBO and ischemic bowel s/p exploratory laparotomy with small bowel resection on 11/11/18 presents to [facility] ER on 01/28/19 with complaints of several episodes of nonbloody nonbilious emesis for last 2 days associated w/ diffuse abdominal pain x days. Patient reports chronic non-bloody diarrhea (3-6x/day) worse at night since the surgery. Patient reports he missed 3 Hemodialysis as well. Denies any chest pain, dyspnea, cough, dysuria, fever or chills. CT A/P w/o contrast on showed markedly thick-walled distal esophagus and mildly thick-walled urinary bladder. Patient was seen and examined this morning with Dr. Lake. States he is feeling better than yesterday. Last vomiting was this morning and was retching during interview. ROS: all 12 systems reviewed and negative except as mentioned in HPI PMD: Dr. Gee PMHx - T2DM, acute CVA, ESRD on HD, HTN, HLD, DMII, gastroparesis, SBO, ischemic bowel s/p small bowel resection in 11/2018 PSHx Small bowel resection in 11/2018, Cranial surgery for CVA, EGD last 09/18 with LA grade C erosive esophagitis, gastritis and moderate stenosis at pylorus (09/2018), Right LE BKA FMHx - unremarkable SocHx -Former smoker. Denies etoh or illicit drug use Allergies: Penicillin Medications: reviewed Present on Admission - Present on Admission Any Indicators Present on Admission: No Review of Systems - Review of Systems Review of Systems: All 12 systems reviewed and negative except as mentioned in HPI Past Patient History - Infectious Disease Hx of Infectious Diseases: None - Past Medical History & Family History Past Medical History?: Yes - Past Social History Smoking Status: Former Smoker - CARDIAC Hx Cardiac Disorders: Yes Hx Congestive Heart Failure: No Hx Hypercholesterolemia: Yes Hx Hypertension: Yes - PULMONARY Hx Respiratory Disorders: No Hx Chronic Obstructive Pulmonary Disease (COPD): No - NEUROLOGICAL Hx Neurological Disorder: Yes HX Cerebrovascular Accident: Yes - HEENT Hx HEENT Problems: No - RENAL Hx Chronic Kidney Disease: Yes Hx Dialysis: Yes Type of Dialysis Access: right subclavian permacath - ENDOCRINE/METABOLIC Hx Endocrine Disorders: Yes Hx Diabetes Mellitus Type 1: Yes Hx Hypothyroidism: No - HEMATOLOGICAL/ONCOLOGICAL Hx Blood Disorders: Yes Hx Anemia: Yes Hx Human Immunodeficiency Virus (HIV): No - INTEGUMENTARY Hx Dermatological Problems: No - MUSCULOSKELETAL/RHEUMATOLOGICAL Hx Musculoskeletal Disorders: No Hx Arthritis: No Hx Falls: No Hx Rheumatoid Arthritis: No - GASTROINTESTINAL Hx Gastrointestinal Disorders: Yes Hx Diarrhea: Yes Hx Gastritis: Yes Hx Vomiting: Yes - GENITOURINARY/GYNECOLOGICAL Hx Genitourinary Disorders: No - PSYCHIATRIC Hx Psychophysiologic Disorder: No Hx Substance Use: No - SURGICAL HISTORY Hx Surgeries: Yes Hx Amputation: Yes (tma right foot) Other/Comment: left suboccipital craniotomy and right ankle surgery,abdominal surgery - ANESTHESIA Hx Anesthesia: Yes Hx Anesthesia Reactions: No Hx Malignant Hyperthermia: No Has any member of the family had a problem w/ anesthesia?: No Meds Allergies/Adverse Reactions: Allergies Allergy/AdvReac Type Severity Reaction Status Date / Time Penicillins Allergy RASH Verified 12/13/18 16:48 Physical Exam - Constitutional Appears: Non-toxic, No Acute Distress - Head Exam Head Exam: NORMAL INSPECTION - Eye Exam Eye Exam: Normal appearance - ENT Exam ENT Exam: Mucous Membranes Moist - Neck Exam Neck exam: Positive for: Normal Inspection - Respiratory Exam Respiratory Exam: Clear to Auscultation Bilateral, NORMAL BREATHING PATTERN. absent: Rhonchi, Wheezes - Cardiovascular Exam Cardiovascular Exam: REGULAR RHYTHM, +S1, +S2 - GI/Abdominal Exam GI & Abdominal Exam: Normal Bowel Sounds, Soft. absent: Distended, Guarding, Rebound, Rigid Additional comments: Mild diffuse tenderness, more prominent at mid abdominal scar area. Vertical scar looks healed. No signs of infection seen. - Extremities Exam Extremities exam: Negative for: calf tenderness Additional comments: right foot stump. No signs of infection. - Back Exam Back exam: NORMAL INSPECTION - Neurological Exam Neurological exam: Alert, Oriented x3 - Psychiatric Exam Psychiatric exam: Normal Affect, Normal Mood - Skin Skin Exam: Rash (on left lower extremity) Results - Vital Signs Recent Vital Signs: Last Vital Signs Temp 98.1 F 01/29/19 05:42 Pulse 91 H 01/29/19 05:42 Resp 16 01/29/19 05:42 BP 148/88 01/29/19 05:42 Pulse Ox 98 01/29/19 05:42 - Labs Result Diagrams: 01/29/19 08:36 01/29/19 08:36 Labs: Laboratory Results - last 24 hr 01/28/19 01/28/19 01/28/19 16:51 16:51 22:42 WBC 9.9 RBC 4.91 Hgb 12.1 D Hct 38.5 MCV 78.5 L MCH 24.6 L MCHC 31.3 L RDW 23.6 H Plt Count 234 MPV 8.2 Neut % (Auto) 65.6 Lymph % (Auto) 28.1 Valley % (Auto) 4.9 Eos % (Auto) 0.8 Baso % (Auto) 0.6 Neut # (Auto) 6.5 Lymph # (Auto) 2.8 Valley # (Auto) 0.5 Eos # (Auto) 0.1 Baso # (Auto) 0.1 Sodium 142 Potassium 4.2 Chloride 106 Carbon Dioxide 22 Anion Gap 18 BUN 23 H Creatinine 4.8 H Est GFR ( Amer) 16 Est GFR (Non-Af Amer) 13 POC Glucose (mg/dL) 125 H Random Glucose 115 H Calcium 8.6 Total Bilirubin 0.5 AST 20 ALT 25 Alkaline Phosphatase 111 Troponin I 0.0170 Total Protein 7.0 Albumin 3.0 L D Globulin 4.0 H Albumin/Globulin Ratio 0.8 L 01/29/19 05:33 WBC RBC Hgb Hct MCV MCH MCHC RDW Plt Count MPV Neut % (Auto) Lymph % (Auto) Valley % (Auto) Eos % (Auto) Baso % (Auto) Neut # (Auto) Lymph # (Auto) Valley # (Auto) Eos # (Auto) Baso # (Auto) Sodium Potassium Chloride Carbon Dioxide Anion Gap BUN Creatinine Est GFR ( Amer) Est GFR (Non-Af Amer) POC Glucose (mg/dL) 98 Random Glucose Calcium Total Bilirubin AST ALT Alkaline Phosphatase Troponin I Total Protein Albumin Globulin Albumin/Globulin Ratio Assessment & Plan - Assessment and Plan (Free Text) Assessment: 48 year old male with PMHx of ESRD on HD (MWF), CVA, DMII, HTN, SBO and ischemic bowel s/p exploratory laparotomy with small bowel resection on 11/11/18 presents to [facility] ER on 01/28/19 with complaints of several episodes of nonbloody nonbilious emesis for last 2 days associated w/ diffused abdominal pain and chronic non-bloody diarrhea since the surgery. Patient reports he missed [address] A/P w/o contrast showed markedly thick-walled distal esophagus and mildly thick-walled urinary bladder. Patient is admitted for intractable vomiting and missed HD. Plan: Intractable vomiting -Likely secondary to gastroparesis and missed HD -GI consult -- Dr. Jc -- recs appreciated -CT A/P w/o contrast showed markedly thick-walled distal esophagus and mildly thick-walled urinary bladder. The bowel loops appear within normal limits of caliber w/o evidence of intestinal obstruction. Anastomotic bowel suture material noted within the right abdomen. -NPO except meds -c/w Zofran 4 mg IVP q6 hr -Atart Pantoprazole 40 mg po bid -AM labs Chronic diarrhea likely secondary to short bowel syndrome -Afebrile and no wbc -Dietary referral for short bowel diet -f/u stool culture, c diff, stool ova and parasite considering abx use last month ESRD on HD -Missed 3 HD -Material Stress Tester consult- Dr. Rodríguez -resume home medications. Hypertension -not controlled -resume home medications DMII -Accucheck, SSI, hypoglycemia protocol -resume home medication DVT prophylaxis: -SCD's Patient seen, examined and plan discussed with Dr. Aleksandra Gentile, [id number] <Joel Lake - Last Filed: 02/01/19 16:59> Results - Vital Signs Recent Vital Signs: Last Vital Signs Temp 98.3 F 02/01/19 15:57 Pulse 87 02/01/19 15:57 Resp 18 02/01/19 15:57 BP 127/77 02/01/19 15:57 Pulse Ox 96 02/01/19 15:57 - Labs Result Diagrams: 02/01/19 05:50 02/01/19 05:50 Labs: Laboratory Results - last 24 hr 01/31/19 02/01/19 02/01/19 21:38 02:00 05:50 WBC 11.1 H RBC 4.49 Hgb 10.9 L Hct 35.2 MCV 78.5 L MCH 24.2 L MCHC 30.9 L RDW 21.7 H Plt Count 200 Sodium Potassium Chloride Carbon Dioxide Anion Gap BUN Creatinine Est GFR ( Amer) Est GFR (Non-Af Amer) POC Glucose (mg/dL) 153 H Random Glucose Calcium Total Bilirubin AST ALT Alkaline Phosphatase Total Protein Albumin Globulin Albumin/Globulin Ratio C. difficile Ag & Toxin Negative 02/01/19 02/01/19 02/01/19 05:50 05:56 10:55 WBC RBC Hgb Hct MCV MCH MCHC RDW Plt Count Sodium 133 Potassium 3.8 Chloride 98 Carbon Dioxide 24 Anion Gap 15 BUN 20 Creatinine 5.2 H Est GFR ( Amer) 14 Est GFR (Non-Af Amer) 12 POC Glucose (mg/dL) 98 121 H Random Glucose 76 Calcium 7.8 L Total Bilirubin 0.3 AST 14 L D ALT 17 L Alkaline Phosphatase 77 Total Protein 5.7 L Albumin 2.4 L Globulin 3.3 Albumin/Globulin Ratio 0.7 L C. difficile Ag & Toxin 02/01/19 16:09 WBC RBC Hgb Hct MCV MCH MCHC RDW Plt Count Sodium Potassium Chloride Carbon Dioxide Anion Gap BUN Creatinine Est GFR ( Amer) Est GFR (Non-Af Amer) POC Glucose (mg/dL) 117 H Random Glucose Calcium Total Bilirubin AST ALT Alkaline Phosphatase Total Protein Albumin Globulin Albumin/Globulin Ratio C. difficile Ag & Toxin Assessment & Plan - Assessment and Plan (Free Text) Assessment: Patient was personally seen and examined by me in rounds with residents. Available labs and diagnostic data reviewed. Case, Patient's condition and management plan discussed with residents in rounds. Agree with resident's progress note. Plan: As ordered.
[2019-01-29] MEDS: Sodium Chloride 0.9% 250 ML IV SCH ×2 (08:30→10:30)
[2019-01-29 08:41] LABS: HEMOGLOBIN 10.6 g/dL (12.0-18.0); MEAN CELL VOLUME 78.8 fl (80.0-94.0); MEAN CORPUSCULAR HEMOGLOBIN 24.6 pg (27.0-31.0); MEAN CORPUSCULAR HGB CONC 31.2 g/dL (33.0-37.0); RBC 4.29 Mil/uL (4.40-5.90); RED CELL DISTRIBUTION WIDTH 23.3 % (11.5-14.5); WHITE BLOOD COUNT 12.1 K/uL (4.8-10.8)
[2019-01-29] MEDS ORDERED: Dextrose 50% SYRINGE Inj (50 ml) IV PRN (08:53)
[2019-01-29 08:59] LABS: ALB/GLOB RATIO 0.7 (1.0-2.1); ALBUMIN 2.7 g/dL (3.5-5.0); CALCIUM 7.8 mg/dL (8.4-10.2)
[2019-01-29] MEDS ORDERED: Potassium & Sodium Phosphate PO SCH (09:00)
[2019-01-29] MEDS: Cholestyramine 4 gm/Pkt UD PO SCH ×3 (10:49→16:25)
[2019-01-29] MEDS: Pantoprazole 40 mg EC Tab PO SCH ×2 (10:49→16:24)
[2019-01-29] MEDS: Multivitamin Vitamin B Complex (Nephro-Vite) Tab PO SCH (10:51)
[2019-01-29] MEDS: Magnesium Oxide 400 mg Tab UD PO SCH ×2 (10:51→16:23)
[2019-01-29] MEDS: Lactobacillus Acidophilus 500 MU Cap PO SCH ×2 (10:53→16:21)
--- NOTE | 2019-01-29 10:56 | CP.PCM.CON ---
History of Present Illness - History of Present Illness History of Present Illness: This patient who is 48 years of age male known to me with end-stage renal disease on maintenance hemodialysis 3 times a week at [facility] presented to the emergency room with severe diarrhea for several days and nausea and patient having nausea as I am speaking to him and could not give too much history because of the nauseous feeling and the history from the medical record as follow 48 year old male with PMHx of ESRD on HD (MWF), CVA, DMII, HTN, SBO and ischemic bowel s/p exploratory laparotomy with small bowel resection on 11/11/18 presents to [facility] ER on 01/28/19 with complaints of several episodes of nonbloody nonbil ious emesis for last 2 days associated w/ diffuse abdominal pain x days. Patient reports chronic non-bloody diarrhea (3-6x/day) worse at night since the surgery. Patient reports he missed 3 Hemodialysis as well. Denies any chest pain, dyspnea, cough, dysuria, fever or chills. CT A/P w/o contrast on showed markedly thick-walled distal esophagus and mildly thick-walled urinary bladder. PMHx - T2DM, acute CVA, ESRD on HD, HTN, HLD, DMII, gastroparesis, SBO, ischemic bowel s/p small bowel resection in 11/2018 PSHx Small bowel resection in 11/2018, Cranial surgery for CVA, EGD last 09/18 with LA grade C erosive esophagitis, gastritis and moderate stenosis at pylorus (09/2018), Right LE BKA FMHx - unremarkable SocHx -Former smoker. Denies etoh or illicit drug use Allergies: Penicillin Medications: reviewed Review of Systems - Review of Systems Systems not reviewed;Unavailable: Unstable Vital Signs - Constitutional Constitutional: Anorexia, Fatigue. absent: Fever - EENT Eyes: absent: Diplopia Nose/Mouth/Throat: absent: Epistaxis - Cardiovascular Cardiovascular: absent: Acrocyanosis, Chest Pain, Claudication, Dyspnea - Respiratory Respiratory: absent: Cough, Dyspnea, Hemoptysis - Gastrointestinal Gastrointestinal: Abdominal Pain, Bloating, Diarrhea. absent: Melena - Genitourinary Genitourinary: Nocturia - Musculoskeletal Musculoskeletal: Muscle Weakness. absent: Back Pain - Neurological Neurological: As Per HPI. absent: Abnormal Movements - Psychiatric Psychiatric: absent: Anxiety - Endocrine Endocrine: Fatigue - Hematologic/Lymphatic Hematologic: absent: Easy Bleeding Past Patient History - Infectious Disease Hx of Infectious Diseases: None - Past Medical History & Family History Past Medical History?: Yes - Past Social History Smoking Status: Former Smoker - CARDIAC Hx Cardiac Disorders: Yes Hx Congestive Heart Failure: No Hx Hypercholesterolemia: Yes Hx Hypertension: Yes - PULMONARY Hx Respiratory Disorders: No Hx Chronic Obstructive Pulmonary Disease (COPD): No - NEUROLOGICAL Hx Neurological Disorder: Yes HX Cerebrovascular Accident: Yes - HEENT Hx HEENT Problems: No - RENAL Hx Chronic Kidney Disease: Yes Hx Dialysis: Yes Type of Dialysis Access: right subclavian permacath - ENDOCRINE/METABOLIC Hx Endocrine Disorders: Yes Hx Diabetes Mellitus Type 1: Yes Hx Hypothyroidism: No - HEMATOLOGICAL/ONCOLOGICAL Hx Blood Disorders: Yes Hx Anemia: Yes Hx Human Immunodeficiency Virus (HIV): No - INTEGUMENTARY Hx Dermatological Problems: No - MUSCULOSKELETAL/RHEUMATOLOGICAL Hx Musculoskeletal Disorders: No Hx Arthritis: No Hx Falls: No Hx Rheumatoid Arthritis: No - GASTROINTESTINAL Hx Gastrointestinal Disorders: Yes Hx Diarrhea: Yes Hx Gastritis: Yes Hx Vomiting: Yes - GENITOURINARY/GYNECOLOGICAL Hx Genitourinary Disorders: No - PSYCHIATRIC Hx Psychophysiologic Disorder: No Hx Substance Use: No - SURGICAL HISTORY Hx Surgeries: Yes Hx Amputation: Yes (tma right foot) Other/Comment: left suboccipital craniotomy and right ankle surgery,abdominal surgery - ANESTHESIA Hx Anesthesia: Yes Hx Anesthesia Reactions: No Hx Malignant Hyperthermia: No Has any member of the family had a problem w/ anesthesia?: No Meds Allergies/Adverse Reactions: Allergies Allergy/AdvReac Type Severity Reaction Status Date / Time Penicillins Allergy RASH Verified 12/13/18 16:48 - Medications Medications: Current Medications Allopurinol (Zyloprim) 100 mg PO DAILY [facility] Last Admin: 01/29/19 10:50 Dose: Not Given Amlodipine Besylate (Norvasc) 10 mg PO DAILY [facility] Last Admin: 01/29/19 10:50 Dose: Not Given Atorvastatin Calcium (Lipitor) 10 mg PO [facility] Calcitriol (Rocaltrol) 0.25 mcg PO TID [facility] Last Admin: 01/29/19 10:49 Dose: Not Given Cholestyramine Resin (Questran) 4 gm PO TID [facility] Last Admin: 01/29/19 10:49 Dose: Not Given Dextrose (Dextrose 50% Inj) 0 ml IV STAT PRN; Protocol PRN Reason: Hypoglycemia Protocol Dextrose (Glutose 15) 0 gm PO ONCE PRN; Protocol PRN Reason: Hypoglycemia Protocol Epoetin Mitchell (Procrit) 10,000 unit IV MWF [facility] Ferrous Sulfate (Feosol) 325 mg PO TID [facility] Last Admin: 01/29/19 10:52 Dose: Not Given Folic Acid (Folic Acid) 1 mg PO DAILY [facility] Last Admin: 01/29/19 10:52 Dose: Not Given Gabapentin (Neurontin) 100 mg PO TID [facility] Last Admin: 01/29/19 10:51 Dose: Not Given Sodium Chloride (Sodium Chloride 0.9%) 250 mls @ 125 mls/hr IV .Q2H [facility] Stop: 01/29/19 18:30 Last Admin: 01/28/19 23:40 Dose: Not Given Insulin Detemir (Levemir) 5 units SC HS [facility] Insulin Human Regular (Humulin R) 0 units SC ACHS [facility]; Protocol Lactic Acid (Lac-Hydrin 12% Lotion (225 G)) 1 applic TOP DAILY [facility] Lactobacillus Acidophilus (Bacid Acidophilus) 1 cap PO BID [facility] Last Admin: 01/29/19 10:53 Dose: Not Given Losartan Potassium (Cozaar) 50 mg PO QPM [facility] Magnesium Oxide (Mag-Ox) 400 mg PO BID [facility] Last Admin: 01/29/19 10:51 Dose: Not Given Metoprolol Tartrate (Lopressor) 50 mg PO Q12 [facility] Last Admin: 01/29/19 10:52 Dose: Not Given Olopatadine HCl (Patanol 0.1% Opht Soln) 1 drop OU BID [facility] Ondansetron HCl (Zofran Inj) 4 mg IVP Q6H [facility] Last Admin: 01/29/19 10:43 Dose: 4 mg Pantoprazole Sodium (Protonix Ec Tab) 40 mg PO BID [facility] Last Admin: 01/29/19 10:49 Dose: Not Given Sitagliptin Phosphate (Januvia) 25 mg PO DAILY [facility] Vitamin B Complex/Vit C/Folic Acid (Nephro-Elsa) 1 tab PO DAILY [facility] Last Admin: 01/29/19 10:51 Dose: Not Given Physical Exam - Constitutional Appears: No Acute Distress - Eye Exam Eye Exam: Conjunctival injection - ENT Exam ENT Exam: Mucous Membranes Moist - Neck Exam Neck exam: Negative for: Lymphadenopathy - Respiratory Exam Respiratory Exam: NORMAL BREATHING PATTERN. absent: Rales - Cardiovascular Exam Cardiovascular Exam: absent: Gallop, JVD, Rubs - GI/Abdominal Exam GI & Abdominal Exam: Guarding, Normal Bowel Sounds - Extremities Exam Extremities exam: Negative for: calf tenderness - Back Exam Back exam: absent: CVA tenderness (L), CVA tenderness (R) - Neurological Exam Neurological exam: Alert - Psychiatric Exam Psychiatric exam: Normal Affect Results - Vital Signs Recent Vital Signs: Last Vital Signs Temp 98.4 F 01/29/19 08:26 Pulse 95 H 01/29/19 08:26 Resp 20 01/29/19 08:26 BP 160/102 H 01/29/19 08:26 Pulse Ox 96 01/29/19 08:26 - Labs Result Diagrams: 01/29/19 08:36 01/29/19 08:36 Labs: Laboratory Results - last 24 hr 01/28/19 01/28/19 01/28/19 16:51 16:51 22:42 WBC 9.9 RBC 4.91 Hgb 12.1 D Hct 38.5 MCV 78.5 L MCH 24.6 L MCHC 31.3 L RDW 23.6 H Plt Count 234 MPV 8.2 Neut % (Auto) 65.6 Lymph % (Auto) 28.1 [place] % (Auto) 4.9 Eos % (Auto) 0.8 Baso % (Auto) 0.6 Neut # (Auto) 6.5 Lymph # (Auto) 2.8 [place] # (Auto) 0.5 Eos # (Auto) 0.1 Baso # (Auto) 0.1 Sodium 142 Potassium 4.2 Chloride 106 Carbon Dioxide 22 Anion Gap 18 BUN 23 H Creatinine 4.8 H Est GFR ( Amer) 16 Est GFR (Non-Af Amer) 13 POC Glucose (mg/dL) 125 H Random Glucose 115 H Calcium 8.6 Phosphorus Magnesium Total Bilirubin 0.5 AST 20 ALT 25 Alkaline Phosphatase 111 Troponin I 0.0170 Total Protein 7.0 Albumin 3.0 L D Globulin 4.0 H Albumin/Globulin Ratio 0.8 L Lipase 01/29/19 01/29/19 01/29/19 05:33 08:36 08:36 WBC 12.1 H RBC 4.29 L Hgb 10.6 L Hct 33.8 L MCV 78.8 L MCH 24.6 L MCHC 31.2 L RDW 23.3 H Plt Count 239 MPV Neut % (Auto) Lymph % (Auto) [place] % (Auto) Eos % (Auto) Baso % (Auto) Neut # (Auto) Lymph # (Auto) [place] # (Auto) Eos # (Auto) Baso # (Auto) Sodium 143 Potassium 4.8 Chloride 106 Carbon Dioxide 23 Anion Gap 19 BUN 27 H Creatinine 5.3 H Est GFR ( Amer) 14 Est GFR (Non-Af Amer) 12 POC Glucose (mg/dL) 98 Random Glucose 120 H Calcium 7.8 L Phosphorus 6.2 H Magnesium 1.7 Total Bilirubin 0.4 AST 19 ALT 17 L D Alkaline Phosphatase 80 Troponin I Total Protein 6.5 Albumin 2.7 L Globulin 3.8 Albumin/Globulin Ratio 0.7 L Lipase 21 L Assessment & Plan (1) ESRD (end stage renal disease) Assessment and Plan: End-stage renal disease on dialysis 3 times a week scheduled for dialysis today Patient admitted with nausea vomiting and diarrhea rule out CD enterocolitis Diabetes mellitus Hypertension history Hyperphosphatemia Secondary hyperparathyroidism Recommendation Hemodialysis today DC phosphorus potassium supplement because of the hyperphosphatemia EPO for the anemia Patient need treatment empirically for pseudomembranous colitis until report com e back Status: Acute (2) Intractable vomiting Status: Acute (3) Abdominal pain Status: Acute
--- NOTE | 2019-01-29 12:00 | CARD ---
APPROVED REPORT Date of service: 01/28/2019 EKG Measurement Heart [id number] <Conclusion> Normal sinus rhythm Possible Left atrial enlargement Prolonged QT Abnormal ECG
[2019-01-29] MEDS ORDERED: metroNIDAZOLE 500mg/100ml NS 250 MG in Premixed IV 1 EA IVPB SCH (12:15)
[2019-01-29] MEDS ORDERED: EnalaprilAT 1.25 mg/ml Inj IVP ONE (13:01)
[2019-01-29] MEDS: Insulin Regular 100 units/ml SC SCH ×3 (13:21→22:46)
[2019-01-29] MEDS: Olopatadine 0.1% Opht SOLN OU SCH (16:31)
[2019-01-29] MEDS ORDERED: EPOETIN ALFA 10,000 UNIT/ML ML IV SCH (19:00)
[2019-01-29] MEDS: metroNIDAZOLE 500mg/100ml NS 250 MG in Premixed IV 1 EA IVPB SCH (22:46)
[2019-01-29] MEDS: Insulin Detemir 100 Units/ml Inj SC SCH (22:47)
[2019-01-30] MEDS: metroNIDAZOLE 500mg/100ml NS 250 MG in Premixed IV 1 EA IVPB SCH ×3 (05:17→21:15)
[2019-01-30 06:23] LABS: BASO % 0.4 % (0.0-2.0); EOS % 0.2 % (0.0-4.0); HEMOGLOBIN 11.1 g/dL (12.0-18.0); LYMPH % 16.8 % (20.0-40.0); MEAN CELL VOLUME 78.4 fl (80.0-94.0); MEAN CORPUSCULAR HEMOGLOBIN 24.5 pg (27.0-31.0); MEAN CORPUSCULAR HGB CONC 31.3 g/dL (33.0-37.0); MEAN PLATELET VOLUME 7.6 fl (7.2-11.7); MONO # 0.7 K/uL (0.0-0.8); MONO % 5.6 % (0.0-10.0); RBC 4.51 Mil/uL (4.40-5.90); RED CELL DISTRIBUTION WIDTH 23.1 % (11.5-14.5); WHITE BLOOD COUNT 11.7 K/uL (4.8-10.8)
[2019-01-30 06:50] LABS: CALCIUM 8.4 mg/dL (8.4-10.2)
[2019-01-30] MEDS ORDERED: EPOETIN ALFA 10,000 UNIT/ML ML IV SCH (09:00)
[2019-01-30] MEDS: Pantoprazole 40 mg EC Tab PO SCH ×2 (09:17→16:16)
[2019-01-30] MEDS: Cholestyramine 4 gm/Pkt UD PO SCH ×3 (09:17→16:16)
[2019-01-30] MEDS: Lactobacillus Acidophilus 500 MU Cap PO SCH ×2 (09:20→16:16)
[2019-01-30] MEDS: Magnesium Oxide 400 mg Tab UD PO SCH ×2 (09:21→16:16)
[2019-01-30] MEDS: Multivitamin Vitamin B Complex (Nephro-Vite) Tab PO SCH (09:21)
[2019-01-30] MEDS ORDERED: EnalaprilAT 1.25 mg/ml Inj IV STA (09:36)
[2019-01-30] MEDS: Olopatadine 0.1% Opht SOLN OU SCH ×2 (10:28→16:18)
[2019-01-30] MEDS: Insulin Regular 100 units/ml SC SCH ×4 (10:29→22:34)
--- NOTE | 2019-01-30 11:32 | CP.PCM.PN ---
Subjective - Date & Time of Evaluation Date of Evaluation: 01/30/19 Time of Evaluation: 11:31 - Subjective Subjective: Patient feeling somewhat much better Vital signs stable No vomiting reported Objective - Vital Signs/Intake and Output Vital Signs (last 24 hours): Temp Pulse Resp BP Pulse Ox 98.2 F 77 18 173/95 H 95 01/30/19 05:48 01/30/19 05:48 01/30/19 05:48 01/30/19 09:23 01/30/19 05:48 - Medications Medications: Current Medications Allopurinol (Zyloprim) 100 mg PO DAILY [facility] Last Admin: 01/30/19 09:17 Dose: Not Given Amlodipine Besylate (Norvasc) 10 mg PO DAILY [facility] Last Admin: 01/30/19 09:22 Dose: Not Given Atorvastatin Calcium (Lipitor) 10 mg PO HS [facility] Last Admin: 01/29/19 22:49 Dose: 10 mg Calcitriol (Rocaltrol) 0.25 mcg PO TID [facility] Last Admin: 01/30/19 09:17 Dose: Not Given Cholestyramine Resin (Questran) 4 gm PO TID [facility] Last Admin: 01/30/19 09:17 Dose: Not Given Dextrose (Dextrose 50% Inj) 0 ml IV STAT PRN; Protocol PRN Reason: Hypoglycemia Protocol Dextrose (Glutose 15) 0 gm PO ONCE PRN; Protocol PRN Reason: Hypoglycemia Protocol Enalapril Maleate (Vasotec) 5 mg PO Q12 [facility] Last Admin: 01/30/19 09:21 Dose: Not Given Epoetin Mitchell (Procrit) 10,000 unit IV TTS [facility] Last Admin: 01/29/19 19:15 Dose: 10,000 unit Ferrous Sulfate (Feosol) 325 mg PO TID [facility] Last Admin: 01/30/19 09:20 Dose: Not Given Folic Acid (Folic Acid) 1 mg PO DAILY [facility] Last Admin: 01/30/19 09:20 Dose: Not Given Gabapentin (Neurontin) 100 mg PO TID [facility] Last Admin: 01/30/19 09:21 Dose: Not Given Metronidazole 250 mg/ (Miscellaneous) 50 mls @ 50 mls/hr IVPB Q8@0500,1300,2100 [facility]; Protocol Last Admin: 01/30/19 05:17 Dose: Not Given Insulin Detemir (Levemir) 5 units SC [facility] Last Admin: 01/29/19 22:47 Dose: 5 units Insulin Human Regular (Humulin R) [address] [facility]; Protocol Last Admin: 01/30/19 10:29 Dose: Not Given Lactic Acid (Lac-Hydrin 12% Lotion (225 G)) 1 applic TOP DAILY [facility] Last Admin: 01/30/19 10:29 Dose: 1 applic Lactobacillus Acidophilus (Bacid Acidophilus) 1 cap PO BID [facility] Last Admin: 01/30/19 09:20 Dose: Not Given Losartan Potassium (Cozaar) 50 mg PO QPM [facility] Last Admin: 01/29/19 18:28 Dose: Not Given Magnesium Oxide (Mag-Ox) 400 mg PO BID [facility] Last Admin: 01/30/19 09:21 Dose: Not Given Metoclopramide HCl (Reglan) 10 mg IVP Q8 PRN PRN Reason: Nausea/Vomiting Metoprolol Tartrate (Lopressor) 50 mg PO Q12 [facility] Last Admin: 01/30/19 09:23 Dose: Not Given Olopatadine HCl (Patanol 0.1% Opht Soln) 1 drop OU BID [facility] Last Admin: 01/30/19 10:28 Dose: 1 drop Ondansetron HCl (Zofran Inj) 4 mg IVP Q6H [facility] Last Admin: 01/30/19 05:17 Dose: Not Given Ondansetron HCl (Zofran Tab) 4 mg PO Q4 PRN PRN Reason: Nausea/Vomiting Pantoprazole Sodium (Protonix Ec Tab) 40 mg PO BID [facility] Last Admin: 01/30/19 09:17 Dose: Not Given Sitagliptin Phosphate (Januvia) 25 mg PO DAILY [facility] Last Admin: 01/30/19 09:20 Dose: Not Given Vitamin B Complex/Vit C/Folic Acid (Nephro-Elsa) 1 tab PO DAILY [facility] Last Admin: 01/30/19 09:21 Dose: Not Given - Labs Labs: 01/30/19 05:35 01/30/19 05:35 - Constitutional Appears: No Acute Distress - Eye Exam Eye Exam: Conjunctival injection - ENT Exam ENT Exam: Mucous Membranes Moist - Neck Exam Neck Exam: absent: Lymphadenopathy - Respiratory Exam Respiratory Exam: NORMAL BREATHING PATTERN. absent: Chest Wall Tenderness - Cardiovascular Exam Cardiovascular Exam: absent: Gallop, JVD, Rubs - GI/Abdominal Exam GI & Abdominal Exam: Soft, Normal Bowel Sounds - Extremities Exam Extremities Exam: absent: Calf Tenderness - Back Exam Back Exam: absent: CVA tenderness (L), CVA tenderness (R) - Neurological Exam Neurological Exam: Alert - Psychiatric Exam Psychiatric exam: Normal Affect - Skin Skin Exam: absent: Cyanosis Assessment and Plan (1) ESRD (end stage renal disease) Assessment & Plan: Assessment and Plan: End-stage renal disease on dialysis 3 times a week scheduled for dialysis today Patient admitted with nausea vomiting and diarrhea rule out CD enterocolitis Diabetes mellitus Hypertension history Hyperphosphatemia Secondary hyperparathyroidism H/O T2DM, acute CVA, ESRD on HD, HTN, HLD, DMII, gastroparesis, SBO, ischemic bowel s/p small bowel resection in 11/2018 PSHx Small bowel resection in 11/2018, Cranial surgery for CVA, EGD last 09/18 with LA grade C erosive esophagitis, gastritis and moderate stenosis at pylorus (09/2018), Right LE BKA Recommendation Hemodialysis TTS DC phosphorus potassium supplement because of the hyperphosphatemia EPO for the anemia Patient receiving Flagyl for empiric treatment of pseudomembranous colitis p ending serology report to come back. Status: Acute (2) Intractable vomiting Status: Acute (3) Abdominal pain Status: Acute
--- NOTE | 2019-01-30 11:41 | CP.PCM.PN ---
<Ada Foster - Last Filed: 01/30/19 11:46> Subjective - Date & Time of Evaluation Date of Evaluation: 01/30/19 Time of Evaluation: 06:40 - Subjective Subjective: Patient seen and Examined this morning at bedside with Dr. Lake. NAD, + nausea and Vomiting overnight. Afebrile, not tolerating PO yet, No IV access. Possible PICC line today for IV access Objective - Vital Signs/Intake and Output Vital Signs (last 24 hours): Temp Pulse Resp BP Pulse Ox 98.2 F 77 18 173/95 H 95 01/30/19 05:48 01/30/19 05:48 01/30/19 05:48 01/30/19 09:23 01/30/19 05:48 - Medications Medications: Current Medications Allopurinol (Zyloprim) 100 mg PO DAILY [facility] Last Admin: 01/30/19 09:17 Dose: Not Given Amlodipine Besylate (Norvasc) 10 mg PO DAILY [facility] Last Admin: 01/30/19 09:22 Dose: Not Given Atorvastatin Calcium (Lipitor) 10 mg PO HS [facility] Last Admin: 01/29/19 22:49 Dose: 10 mg Calcitriol (Rocaltrol) 0.25 mcg PO TID [facility] Last Admin: 01/30/19 09:17 Dose: Not Given Cholestyramine Resin (Questran) 4 gm PO TID [facility] Last Admin: 01/30/19 09:17 Dose: Not Given Dextrose (Dextrose 50% Inj) 0 ml IV STAT PRN; Protocol PRN Reason: Hypoglycemia Protocol Dextrose (Glutose 15) 0 gm PO ONCE PRN; Protocol PRN Reason: Hypoglycemia Protocol Enalapril Maleate (Vasotec) 5 mg PO Q12 [facility] Last Admin: 01/30/19 09:21 Dose: Not Given Epoetin Mitchell (Procrit) 10,000 unit IV TTS [facility] Last Admin: 01/29/19 19:15 Dose: 10,000 unit Ferrous Sulfate (Feosol) 325 mg PO TID [facility] Last Admin: 01/30/19 09:20 Dose: Not Given Folic Acid (Folic Acid) 1 mg PO DAILY [facility] Last Admin: 01/30/19 09:20 Dose: Not Given Gabapentin (Neurontin) 100 mg PO TID [facility] Last Admin: 01/30/19 09:21 Dose: Not Given Metronidazole 250 mg/ (Miscellaneous) 50 mls @ 50 mls/hr IVPB Q8@0500,1300,2100 [facility]; Protocol Last Admin: 01/30/19 05:17 Dose: Not Given Insulin Detemir (Levemir) 5 units SC HS [facility] Last Admin: 01/29/19 22:47 Dose: 5 units Insulin Human Regular (Humulin R) 0 units SC [facility]; Protocol Last Admin: 01/30/19 10:29 Dose: Not Given Lactic Acid (Lac-Hydrin 12% Lotion (225 G)) 1 applic TOP DAILY [facility] Last Admin: 01/30/19 10:29 Dose: 1 applic Lactobacillus Acidophilus (Bacid Acidophilus) 1 cap PO BID [facility] Last Admin: 01/30/19 09:20 Dose: Not Given Losartan Potassium (Cozaar) 50 mg PO QPM [facility] Last Admin: 01/29/19 18:28 Dose: Not Given Magnesium Oxide (Mag-Ox) 400 mg PO BID [facility] Last Admin: 01/30/19 09:21 Dose: Not Given Metoclopramide HCl (Reglan) 10 mg IVP Q8 PRN PRN Reason: Nausea/Vomiting Metoprolol Tartrate (Lopressor) 50 mg PO Q12 [facility] Last Admin: 01/30/19 09:23 Dose: Not Given Olopatadine HCl (Patanol 0.1% Opht Soln) 1 drop OU BID [facility] Last Admin: 01/30/19 10:28 Dose: 1 drop Ondansetron HCl (Zofran Inj) 4 mg IVP Q6H [facility] Last Admin: 01/30/19 05:17 Dose: Not Given Ondansetron HCl (Zofran Tab) 4 mg PO Q4 PRN PRN Reason: Nausea/Vomiting Pantoprazole Sodium (Protonix Ec Tab) 40 mg PO BID [facility] Last Admin: 01/30/19 09:17 Dose: Not Given Sitagliptin Phosphate (Januvia) 25 mg PO DAILY [facility] Last Admin: 01/30/19 09:20 Dose: Not Given Vitamin B Complex/Vit C/Folic Acid (Nephro-Elsa) 1 tab PO DAILY [facility] Last Admin: 01/30/19 09:21 Dose: Not Given - Labs Labs: 01/30/19 05:35 01/30/19 05:35 - Constitutional Appears: No Acute Distress - Head Exam Head Exam: NORMAL INSPECTION - Eye Exam Eye Exam: Normal appearance Pupil Exam: NORMAL ACCOMODATION - ENT Exam ENT Exam: Mucous Membranes Moist - Neck Exam Neck Exam: Full ROM, Normal Inspection - Respiratory Exam Respiratory Exam: Clear to Ausculation Bilateral, NORMAL BREATHING PATTERN - Cardiovascular Exam Cardiovascular Exam: Tachycardia, REGULAR RHYTHM, +S1, +S2 - GI/Abdominal Exam GI & Abdominal Exam: Soft, Normal Bowel Sounds (Mild diffuse tenderness, more prominent at mid abdominal scar area. Vertical scar looks healed. No signs of infection seen) - Extremities Exam Extremities Exam: absent: Tenderness Additional comments: right foot stump. No signs of infection. - Back Exam Back Exam: NORMAL INSPECTION - Neurological Exam Neurological Exam: Alert, Awake, Oriented x3 - Psychiatric Exam Psychiatric exam: Normal Affect - Skin Skin Exam: Normal Color Assessment and Plan - Assessment and Plan (Free Text) Assessment: A/P: 48 year old male with PMHx of ESRD on HD (MWF), CVA, DMII, HTN, SBO and ischemic bowel s/p exploratory laparotomy with small bowel resection on 11/11/18 presents to [facility] ER on 01/28/19 with complaints of several episodes of nonbloody nonbilious emesis for last 2 days associated w/ diffused abdominal pain and chronic non-bloody diarrhea since the surgery. Patient reports he missed [address] A/P w/o contrast showed markedly thick-walled distal esophagus and mildly thick-walled urinary bladder. Patient is admitted for intractable vomiting and missed HD. Intractable vomiting -Likely secondary to gastroparesis and missed HD -GI consult -- Dr. Jc -- recs appreciated -CT A/P w/o contrast showed markedly thick-walled distal esophagus and mildly thick-walled urinary bladder. The bowel loops appear within normal limits of caliber w/o evidence of intestinal obstruction. Anastomotic bowel suture material noted within the right abdomen. -NPO except meds (advance diet as tolerated) -c/w Zofran 4 mg IVP q6 hr -C/w Pantoprazole 40 mg po bid -receiving Flagyl for empiric treatment of pseudomembranous colitis pending serology -HD today Chronic diarrhea likely secondary to short bowel syndrome -Afebrile and no wbc -Dietary referral for short bowel diet -f/u stool culture, c diff, stool ova and parasite considering abx use last month ESRD on HD -Missed 3 HD, Hemodialysis TTS -[employer] Analyst consult- Dr. Rordíguez -resume home medications -HD today Hypertension -not controlled -resume home medications DMII -Accucheck, SSI, hypoglycemia protocol -resume home medication DVT prophylaxis: -SCD's Patient seen, examined and plan discussed with Dr. Lake <Joel Lake - Last Filed: 02/01/19 16:57> Objective - Vital Signs/Intake and Output Vital Signs (last 24 hours): Temp Pulse Resp BP Pulse Ox 98.3 F 87 18 127/77 96 02/01/19 15:57 02/01/19 15:57 02/01/19 15:57 02/01/19 15:57 02/01/19 15:57 - Medications Medications: Current Medications Allopurinol (Zyloprim) 100 mg PO DAILY [facility] Last Admin: 02/01/19 10:15 Dose: 100 mg Amlodipine Besylate (Norvasc) 10 mg PO DAILY [facility] Last Admin: 01/31/19 09:23 Dose: 10 mg Atorvastatin Calcium (Lipitor) 10 mg PO HS [facility] Last Admin: 01/31/19 21:20 Dose: 10 mg Calcitriol (Rocaltrol) 0.25 mcg PO DAILY [facility] Last Admin: 02/01/19 10:12 Dose: 0.25 mcg Calcium Acetate (Phoslo) 667 mg PO WM [facility] Last Admin: 02/01/19 13:17 Dose: 667 mg Cholestyramine Resin (Questran) 4 gm PO TID [facility] Last Admin: 02/01/19 13:18 Dose: 4 gm Dextrose (Dextrose 50% Inj) 0 ml IV STAT PRN; Protocol PRN Reason: Hypoglycemia Protocol Dextrose (Glutose 15) 0 gm PO ONCE PRN; Protocol PRN Reason: Hypoglycemia Protocol Ferrous Sulfate (Feosol) 325 mg PO TID [facility] Last Admin: 02/01/19 13:15 Dose: 325 mg Folic Acid (Folic Acid) 1 mg PO DAILY [facility] Last Admin: 02/01/19 10:08 Dose: 1 mg Gabapentin (Neurontin) 100 mg PO TID [facility] Last Admin: 02/01/19 13:17 Dose: 100 mg Hydralazine HCl (Apresoline) 10 mg IV Q4 PRN PRN Reason: Other Metronidazole 250 mg/ (Miscellaneous) 50 mls @ 50 mls/hr IVPB Q8@0500,1300,2100 [facility]; Protocol Last Admin: 02/01/19 13:16 Dose: 50 mls/hr Insulin Detemir (Levemir) 5 units SC HS [facility] Last Admin: 01/31/19 22:25 Dose: 5 units Insulin Human Regular (Humulin R) 0 units SC ACHS [facility]; Protocol Last Admin: 02/01/19 12:15 Dose: Not Given Lactic Acid (Lac-Hydrin 12% Lotion (225 G)) 1 applic TOP DAILY [facility] Last Admin: 02/01/19 10:09 Dose: 1 applic Lactobacillus Acidophilus (Bacid Acidophilus) 1 cap PO BID [facility] Last Admin: 02/01/19 10:22 Dose: 1 cap Losartan Potassium (Cozaar) 100 mg PO DAILY [facility] Last Admin: 01/31/19 13:11 Dose: 100 mg Magnesium Oxide (Mag-Ox) 400 mg PO BID [facility] Last Admin: 02/01/19 10:10 Dose: 400 mg Metoclopramide HCl (Reglan) 10 mg IVP Q8 [facility] Last Admin: 02/01/19 10:12 Dose: 10 mg Metoprolol Tartrate (Lopressor) 100 mg PO Q12 [facility] Last Admin: 01/31/19 21:20 Dose: 100 mg Olopatadine HCl (Patanol 0.1% Opht Soln) 1 drop OU BID [facility] Last Admin: 02/01/19 10:11 Dose: 1 drop Ondansetron HCl (Zofran Inj) 4 mg IVP Q6H [facility] Last Admin: 02/01/19 10:22 Dose: 4 mg Ondansetron HCl (Zofran Tab) 4 mg PO Q4 PRN PRN Reason: Nausea/Vomiting Pantoprazole Sodium (Protonix Ec Tab) 40 mg PO BID [facility] Last Admin: 02/01/19 10:12 Dose: 40 mg Sitagliptin Phosphate (Januvia) 25 mg PO DAILY [facility] Last Admin: 02/01/19 10:09 Dose: 25 mg Vitamin B Complex/Vit C/Folic Acid (Nephro-Elsa) 1 tab PO DAILY [facility] Last Admin: 02/01/19 10:06 Dose: 1 tab - Labs Labs: 02/01/19 05:50 02/01/19 05:50 Assessment and Plan - Assessment and Plan (Free Text) Assessment: Patient was personally seen and examined by me in rounds with residents. Available labs and diagnostic data reviewed. Case, Patient's condition and management plan discussed with residents in rounds. Agree with resident's progress note. Plan: As ordered.
--- NOTE | 2019-01-30 14:00 | CP.PCM.PN ---
Subjective - Date & Time of Evaluation Date of Evaluation: 01/30/19 Time of Evaluation: 13:59 - Subjective Subjective: no overnight events Objective - Vital Signs/Intake and Output Vital Signs (last 24 hours): Temp Pulse Resp BP Pulse Ox 97.9 F 97 H 20 195/105 H 100 01/30/19 13:07 01/30/19 13:07 01/30/19 13:07 01/30/19 13:07 01/30/19 13:07 - Medications Medications: Current Medications Allopurinol (Zyloprim) 100 mg PO DAILY [facility] Last Admin: 01/30/19 09:17 Dose: Not Given Amlodipine Besylate (Norvasc) 10 mg PO DAILY [facility] Last Admin: 01/30/19 09:22 Dose: Not Given Atorvastatin Calcium (Lipitor) 10 mg PO HS [facility] Last Admin: 01/29/19 22:49 Dose: 10 mg Calcitriol (Rocaltrol) 0.25 mcg PO TID [facility] Last Admin: 01/30/19 12:42 Dose: Not Given Cholestyramine Resin (Questran) 4 gm PO TID [facility] Last Admin: 01/30/19 09:17 Dose: Not Given Dextrose (Dextrose 50% Inj) 0 ml IV STAT PRN; Protocol PRN Reason: Hypoglycemia Protocol Dextrose (Glutose 15) 0 gm PO ONCE PRN; Protocol PRN Reason: Hypoglycemia Protocol Enalapril Maleate (Vasotec) 5 mg PO Q12 [facility] Last Admin: 01/30/19 09:21 Dose: Not Given Epoetin Mitchell (Procrit) 10,000 unit IV TTS [facility] Last Admin: 01/29/19 19:15 Dose: 10,000 unit Ferrous Sulfate (Feosol) 325 mg PO TID [facility] Last Admin: 01/30/19 12:36 Dose: Not Given Folic Acid (Folic Acid) 1 mg PO DAILY [facility] Last Admin: 01/30/19 09:20 Dose: Not Given Gabapentin (Neurontin) 100 mg PO TID [facility] Last Admin: 01/30/19 12:36 Dose: Not Given Metronidazole 250 mg/ (Miscellaneous) 50 mls @ 50 mls/hr IVPB Q8@0500,1300,2100 [facility]; Protocol Last Admin: 01/30/19 12:35 Dose: 50 mls/hr Insulin Detemir (Levemir) 5 units SC [facility] Last Admin: 01/29/19 22:47 Dose: 5 units Insulin Human Regular (Humulin R) 0 units SC ACHS [facility]; Protocol Last Admin: 01/30/19 12:36 Dose: Not Given Lactic Acid (Lac-Hydrin 12% Lotion (225 G)) 1 applic TOP DAILY [facility] Last Admin: 01/30/19 10:29 Dose: 1 applic Lactobacillus Acidophilus (Bacid Acidophilus) 1 cap PO BID [facility] Last Admin: 01/30/19 09:20 Dose: Not Given Losartan Potassium (Cozaar) 50 mg PO QPM [facility] Last Admin: 01/29/19 18:28 Dose: Not Given Magnesium Oxide (Mag-Ox) 400 mg PO BID [facility] Last Admin: 01/30/19 09:21 Dose: Not Given Metoclopramide HCl (Reglan) 10 mg IVP Q8 [facility] Metoprolol Tartrate (Lopressor) 50 mg PO Q12 [facility] Last Admin: 01/30/19 09:23 Dose: Not Given Olopatadine HCl (Patanol 0.1% Opht Soln) 1 drop OU BID [facility] Last Admin: 01/30/19 10:28 Dose: 1 drop Ondansetron HCl (Zofran Inj) 4 mg IVP Q6H [facility] Last Admin: 01/30/19 12:34 Dose: 4 mg Ondansetron HCl (Zofran Tab) 4 mg PO Q4 PRN PRN Reason: Nausea/Vomiting Pantoprazole Sodium (Protonix Ec Tab) 40 mg PO BID [facility] Last Admin: 01/30/19 09:17 Dose: Not Given Sitagliptin Phosphate (Januvia) 25 mg PO DAILY [facility] Last Admin: 01/30/19 09:20 Dose: Not Given Vitamin B Complex/Vit C/Folic Acid (Nephro-Elsa) 1 tab PO DAILY [facility] Last Admin: 01/30/19 09:21 Dose: Not Given - Labs Labs: 01/30/19 05:35 01/30/19 05:35 - Head Exam Head Exam: NORMOCEPHALIC - Neck Exam Neck Exam: Normal Inspection - Respiratory Exam Respiratory Exam: Clear to Ausculation Bilateral, NORMAL BREATHING PATTERN - Cardiovascular Exam Cardiovascular Exam: REGULAR RHYTHM - GI/Abdominal Exam GI & Abdominal Exam: Soft, Tenderness, Normal Bowel Sounds Assessment and Plan - Assessment and Plan (Free Text) Assessment: 48 yo male with nausea/vomit less vomit ppi bid
[2019-01-30] MEDS ORDERED: EnalaprilAT 1.25 mg/ml Inj IV SCH (16:15)
[2019-01-30] MEDS: EnalaprilAT 1.25 mg/ml Inj IV SCH ×2 (16:15→21:15)
[2019-01-30] MEDS: Insulin Detemir 100 Units/ml Inj SC SCH (21:16)
--- NOTE | 2019-01-31 01:02 | CON ---
DATE: 01/29/2019 REFERRING DOCTOR: Joel Lake MD REASON FOR CONSULTATION: Nausea, vomiting, and abdominal pain. HISTORY OF PRESENT ILLNESS: This is a 48-year-old male with multiple medical problems including end-state renal disease, on dialysis; CVA; diabetes; hypertension; small bowel obstruction, status post bowel resection; comes in with nausea, vomiting, and abdominal discomfort for the past two or three days as well as chronic non-bloody diarrhea as well. The patient is visibly gagging and verbalizing, nothing coming up. Currently, lying in bed comfortably, in no apparent distress. PAST MEDICAL HISTORY: As above. PAST SURGICAL HISTORY: As above. MEDICATIONS: Have been reviewed. REVIEW OF SYSTEMS: All other systems have been reviewed and negative apart from the HPI. PHYSICAL EXAMINATION: VITAL SIGNS: Here in the hospital are grossly unremarkable. GENERAL: This is a pleasant elderly-appearing male, lying in bed comfortably, in no apparent distress. HEENT: Head: Normocephalic and atraumatic. Eyes: Pupils are equally reactive to light bilaterally. No conjunctival pallor or icterus. NECK: Supple. Normal range of motion. No lymphadenopathy appreciated. LUNGS: Coarse breath sounds bilaterally. HEART: S1, S2. Regular rate and rhythm. ABDOMEN: Soft, nontender. Bowel sounds present. No rebound. No guarding. RECTAL: Deferred. EXTREMITIES: Pulses felt bilaterally. SKIN: Warm, dry, and intact. NEUROLOGIC: A and O x3. LABORATORY DATA: Labs and radiology have been reviewed. WBC is 12.1, hemoglobin 10.6, hematocrit 33.8. . ASSESSMENT: This is a 48-year-old male with history of gastroparesis. PLAN: Plan for Zofran and Reglan and as well as PPI, Pepcid. We will follow up the patient with you. N.p.o. for now. Thank you for the consult. Jung Jc MD/ PhD cc: Joel Lake MD
[2019-01-31] MEDS: EnalaprilAT 1.25 mg/ml Inj IV SCH ×2 (04:05→09:19)
[2019-01-31] MEDS: metroNIDAZOLE 500mg/100ml NS 250 MG in Premixed IV 1 EA IVPB SCH ×3 (04:06→21:20)
[2019-01-31 05:40] LABS: SQUAMOUS EPITHIAL 1 /hpf (0-5); URINE BILIRUBIN NEGATIVE (NEGATIVE); URINE BLOOD NEGATIVE (NEGATIVE); URINE CLARITY SLIGHTY-CLOUDY (Clear); URINE COLOR YELLOW (YELLOW); URINE GLUCOSE (UA) 50 mg/dL (NEGATIVE); URINE LEUKOCYTE ESTERASE TRACE Leu/uL (Negative); URINE PROTEIN 100 mg/dL (NEGATIVE); URINE UROBILINOGEN 0.2-1.0 mg/dL (0.2-1.0)
[2019-01-31] MEDS: Insulin Regular 100 units/ml SC SCH ×4 (09:16→22:22)
[2019-01-31] MEDS: Lactobacillus Acidophilus 500 MU Cap PO SCH ×2 (09:20→17:01)
[2019-01-31] MEDS: Multivitamin Vitamin B Complex (Nephro-Vite) Tab PO SCH (09:21)
[2019-01-31] MEDS: Magnesium Oxide 400 mg Tab UD PO SCH ×2 (09:21→17:01)
[2019-01-31] MEDS: Pantoprazole 40 mg EC Tab PO SCH ×2 (09:22→17:03)
[2019-01-31] MEDS: Cholestyramine 4 gm/Pkt UD PO SCH ×3 (09:23→17:04)
[2019-01-31] MEDS: Olopatadine 0.1% Opht SOLN OU SCH ×2 (09:23→17:03)
--- NOTE | 2019-01-31 10:42 | PN ---
DATE: 01/31/2019 SUBJECTIVE: The patient seen and examined. Interim events noted. The patient remains in progressive care unit with telemetry monitoring. Feels okay. Vomiting improved. Chief complaints of diarrhea, one episode. No abdominal pain. No blood in the stools. No chest pain or shortness of breath. PHYSICAL EXAMINATION: GENERAL: The patient is in no acute distress. VITAL SIGNS: Stable. HEART: S1, S2, normal and regular. LUNGS: Good bilateral air exchange. ABDOMEN: Soft, nontender. No organomegaly. No fluid. Bowel sounds are present and normal. No sign of acute abdomen. No guarding, rigidity, no rebound. EXTREMITIES: The patient is status post amputation. No calf swelling. No tenderness. No acute ischemia. TURBINE ROOM ATTENDANT: Essentially unchanged. DIAGNOSTICS: Diagnostic data reviewed. Telemetry monitoring does not reveal significant arrhythmias. ASSESSMENT AND PLAN: Overall, the patient's general medical condition is stable. Vomiting is improving. Nephrology and Gastroenterology followup and intervention noted and appreciated. Plan as ordered. Joel Lake MD
--- NOTE | 2019-01-31 13:32 | CP.PCM.PN ---
Subjective - Date & Time of Evaluation Date of Evaluation: 01/31/19 Time of Evaluation: 13:30 - Subjective Subjective: Nephrology Consultation Note: Assessment: Stable esophageal thickening diarrhoea s/o small bowel resection Diabetic chronic Kidney Disease (E11.22) Hypertensive Chronic Kidney Disease (I12.0) End stage renal disease (N18.6) dependence on hemodialysis (Z99.2) (TTS) via pc Anemia (D64.9), Hyperphosphatemia (E83.39), Secondary Hyperparathyroidism (E21.1), HTN (I12.0) Plan: Will plan for HD TTS schedule as ordered.Continue with Nephrovite 1 tab/day. PRBC as needed for anemia. last Hb 11. hence hold YURIY continue with phos binders as last Phos 6.2 HTN control with meds as ordered, started on losartan 100 , increased lopressor 100 bid and prn hydralazine Glycemic control, Dialysis consistent diet. Further work up/management as per primary team Dose meds/antibiotics for ESRD status. Avoid fleets enema/magnesium based lax atives. as per recent outpt vascular eval, AVF okay to use. d/w garnishment specialist, will use 17 g needle x 1 Thanks for allowing me to participate in care of your patient. Will follow patient with you. Please call if any Qs. Dr Rigo Toro Office: [phone] ROS: Cardiovascular: No chest pain. Pulmonary: No shortness of breath Gastrointestinal: better nausea and vomiting. has diarrhoea Genitourinary: No pain while urinating. Denies blood in urine. All other negative except as mentioned in HPI Physical Examination: General Appearance: Comfortable, in no acute respiratory distress, co-operative . obese Vitals reviewed and noted as below Head; Atraumatic, normocephalic ENT: no ulcers no thrush. Tongue is midline. Oropharynx: no rash or ulcers. EYES: Pupils are equal, round and reactive to light accommodation. Eye muscles and extraocular movement intact. Sclera is anicteric. Neck; supple no lymphadenopathy, no thyromegaly or bruit Lungs: Normal respiratory rate/effort. Breath sounds bilateral equal and clear Heart: Normal rate. s1s2 normal. No rub or gallop. Extremities: no edema. No varicose veins. Rt TMA Neurological: Patient is alert, awake and oriented to person, place and time. No focal deficit. Strength bilateral appropriate and equal Skin: Warm and dry. Normal turgor. has rash RLE. Palpitation: Normal elasticity for age Abdomen: Abdomen is soft. Bowel sounds +. There is no abdominal tenderness, no guarding/rigidity or organomegaly. Psych: normal insight and normal affect/mood MSK: no joint tenderness or swelling. Digits and nails normal, no deformity : kidney or bladder not palpable Access: Rt AVF matured. has PC Labs/imaging reviewed. Past medical history, past surgical history, family history, social history, allergy reviewed and noted as below Family Hx: no hx of CKD. Non contributory Objective - Vital Signs/Intake and Output Vital Signs (last 24 hours): Temp Pulse Resp BP Pulse Ox 98.0 F 73 19 148/84 97 01/31/19 12:08 01/31/19 13:12 01/31/19 12:08 01/31/19 13:12 01/31/19 12:08 - Medications Medications: Current Medications Allopurinol (Zyloprim) 100 mg PO DAILY [facility] Last Admin: 01/31/19 09:23 Dose: 100 mg Amlodipine Besylate (Norvasc) 10 mg PO DAILY [facility] Last Admin: 01/31/19 09:23 Dose: 10 mg Atorvastatin Calcium (Lipitor) 10 mg PO HS [facility] Last Admin: 01/30/19 21:17 Dose: 10 mg Calcitriol (Rocaltrol) 0.25 mcg PO DAILY [facility] Calcium Acetate (Phoslo) 667 mg PO WM [facility] Last Admin: 01/31/19 13:14 Dose: 667 mg Cholestyramine Resin (Questran) 4 gm PO TID [facility] Last Admin: 01/31/19 13:15 Dose: Not Given Dextrose (Dextrose 50% Inj) 0 ml IV STAT PRN; Protocol PRN Reason: Hypoglycemia Protocol Dextrose (Glutose 15) 0 gm PO ONCE PRN; Protocol PRN Reason: Hypoglycemia Protocol Ferrous Sulfate (Feosol) 325 mg PO TID [facility] Last Admin: 01/31/19 13:12 Dose: 325 mg Folic Acid (Folic Acid) 1 mg PO DAILY [facility] Last Admin: 01/31/19 09:21 Dose: 1 mg Gabapentin (Neurontin) 100 mg PO TID [facility] Last Admin: 01/31/19 13:13 Dose: 100 mg Hydralazine HCl (Apresoline) 10 mg IV Q4 PRN PRN Reason: Other Metronidazole 250 mg/ (Miscellaneous) 50 mls @ 50 mls/hr IVPB Q8@0500,1300,2100 [facility]; Protocol Last Admin: 01/31/19 13:10 Dose: 50 mls/hr Insulin Detemir (Levemir) 5 units SC [facility] Last Admin: 01/30/19 21:16 Dose: 5 units Insulin Human Regular (Humulin R) 0 units SC [facility]; Protocol Last Admin: 01/31/19 12:30 Dose: Not Given Lactic Acid (Lac-Hydrin 12% Lotion (225 G)) 1 applic TOP DAILY [facility] Last Admin: 01/31/19 09:22 Dose: 1 applic Lactobacillus Acidophilus (Bacid Acidophilus) 1 cap PO BID [facility] Last Admin: 01/31/19 09:20 Dose: 1 cap Losartan Potassium (Cozaar) 100 mg PO DAILY [facility] Last Admin: 01/31/19 13:11 Dose: 100 mg Magnesium Oxide (Mag-Ox) 400 mg PO BID [facility] Last Admin: 01/31/19 09:21 Dose: 400 mg Metoclopramide HCl (Reglan) 10 mg IVP Q8 [facility] Last Admin: 01/31/19 09:19 Dose: 10 mg Metoprolol Tartrate (Lopressor) 100 mg PO Q12 [facility] Last Admin: 01/31/19 13:12 Dose: 100 mg Olopatadine HCl (Patanol 0.1% Opht Soln) 1 drop OU BID [facility] Last Admin: 01/31/19 09:23 Dose: 1 drop Ondansetron HCl (Zofran Inj) 4 mg IVP Q6H [facility] Last Admin: 01/31/19 13:15 Dose: 4 mg Ondansetron HCl (Zofran Tab) 4 mg PO Q4 PRN PRN Reason: Nausea/Vomiting Pantoprazole Sodium (Protonix Ec Tab) 40 mg PO BID [facility] Last Admin: 01/31/19 09:22 Dose: 40 mg Sitagliptin Phosphate (Januvia) 25 mg PO DAILY [facility] Last Admin: 01/31/19 09:21 Dose: 25 mg Vitamin B Complex/Vit C/Folic Acid (Nephro-Elsa) 1 tab PO DAILY [facility] Last Admin: 01/31/19 09:21 Dose: 1 tab - Labs Labs: 01/30/19 05:35 01/30/19 05:35
[2019-01-31] MEDS: Insulin Detemir 100 Units/ml Inj SC SCH (22:25)
[2019-02-01] MEDS: metroNIDAZOLE 500mg/100ml NS 250 MG in Premixed IV 1 EA IVPB SCH ×3 (04:20→21:45)
[2019-02-01 07:11] LABS: HEMOGLOBIN 10.9 g/dL (12.0-18.0); MEAN CELL VOLUME 78.5 fl (80.0-94.0); MEAN CORPUSCULAR HEMOGLOBIN 24.2 pg (27.0-31.0); MEAN CORPUSCULAR HGB CONC 30.9 g/dL (33.0-37.0); RBC 4.49 Mil/uL (4.40-5.90); RED CELL DISTRIBUTION WIDTH 21.7 % (11.5-14.5); WHITE BLOOD COUNT 11.1 K/uL (4.8-10.8)
[2019-02-01 07:38] LABS: ALB/GLOB RATIO 0.7 (1.0-2.1); ALBUMIN 2.4 g/dL (3.5-5.0); CALCIUM 7.8 mg/dL (8.4-10.2)
[2019-02-01] MEDS: Insulin Regular 100 units/ml SC SCH ×4 (07:55→21:46)
[2019-02-01] MEDS: Multivitamin Vitamin B Complex (Nephro-Vite) Tab PO SCH (10:06)
[2019-02-01] MEDS: Magnesium Oxide 400 mg Tab UD PO SCH ×2 (10:10→17:19)
[2019-02-01] MEDS: Olopatadine 0.1% Opht SOLN OU SCH ×2 (10:11→17:21)
[2019-02-01] MEDS: Cholestyramine 4 gm/Pkt UD PO SCH ×3 (10:12→17:22)
[2019-02-01] MEDS: Pantoprazole 40 mg EC Tab PO SCH ×2 (10:12→17:22)
--- NOTE | 2019-02-01 10:15 | PN ---
DATE: 02/01/2019 SUBJECTIVE: The patient seen and examined. Interim events noted. The patient remains in progressive care unit with telemetry monitoring. Feels much better. No vomiting. Diarrhea much improved. No chest pain. No shortness of breath. PHYSICAL EXAMINATION: GENERAL: The patient is in no acute distress. VITAL SIGNS: Stable. HEART: S1 and S2, normal and regular. LUNGS: Good bilateral air exchange. ABDOMEN: Soft, nontender. No organomegaly. No fluid. Bowel sounds are present and normal. No sign of acute abdomen. No guarding, no rigidity, no rebound. EXTREMITIES: The patient is status post multiple amputations. CENTRAL NERVOUS SYSTEM: Essentially unchanged. DIAGNOSTICS: Available diagnostic data reviewed. ASSESSMENT AND PLAN: Overall, the patient's general medical condition is stable. Plan as ordered. Joel Lake MD
[2019-02-01] MEDS: Lactobacillus Acidophilus 500 MU Cap PO SCH ×2 (10:22→17:27)
--- NOTE | 2019-02-01 12:24 | CP.PCM.PN ---
Subjective - Date & Time of Evaluation Date of Evaluation: 02/01/19 Time of Evaluation: 12:24 - Subjective Subjective: Nephrology Consultation Note: Assessment: Stable esophageal thickening diarrhoea s/o small bowel resection Diabetic chronic Kidney Disease (E11.22) Hypertensive Chronic Kidney Disease (I12.0) End stage renal disease (N18.6) dependence on hemodialysis (Z99.2) (TTS) via pc Anemia (D64.9), Hyperphosphatemia (E83.39), Secondary Hyperparathyroidism (E21.1), HTN (I12.0) Plan: HD today as couldn't be done yesterday Will plan for HD TTS schedule as ordered.Continue with Nephrovite 1 tab/day. PRBC as needed for anemia. last Hb 11. hence hold YURIY continue with phos binders as last Phos 6.2 HTN control with meds as ordered, started on losartan 100 , increased lopressor 100 bid and prn hydralazine Glycemic control, Dialysis consistent diet. Further work up/management as per primary team Dose meds/antibiotics for ESRD status. Avoid fleets enema/magnesium based laxatives. as per recent outpt vascular eval, AVF okay to use. d/w energy efficiency engineer, will use 17 g needle x 1 Thanks for allowing me to participate in care of your patient. Will follow patient with you. Please call if any Qs. Dr Rigo Toro Office: [phone] ROS: Cardiovascular: No chest pain. Pulmonary: No shortness of breath Gastrointestinal: better nausea and vomiting. has diarrhoea Genitourinary: No pain while urinating. Denies blood in urine. All other negative except as mentioned in HPI Physical Examination: General Appearance: Comfortable, in no acute respiratory distress, co-operative . obese Vitals reviewed and noted as below Head; Atraumatic, normocephalic ENT: no ulcers no thrush. Tongue is midline. Oropharynx: no rash or ulcers. EYES: Pupils are equal, round and reactive to light accommodation. Eye muscles and extraocular movement intact. Sclera is anicteric. Neck; supple no lymphadenopathy, no thyromegaly or bruit Lungs: Normal respiratory rate/effort. Breath sounds bilateral equal and clear Heart: Normal rate. s1s2 normal. No rub or gallop. Extremities: no edema. No varicose veins. Rt TMA Neurological: Patient is alert, awake and oriented to person, place and time. No focal deficit. Strength bilateral appropriate and equal Skin: Warm and dry. Normal turgor. has rash RLE. Palpitation: Normal elasticity for age Abdomen: Abdomen is soft. Bowel sounds +. There is no abdominal tenderness, no guarding/rigidity or organomegaly. Psych: normal insight and normal affect/mood MSK: no joint tenderness or swelling. Digits and nails normal, no deformity : kidney or bladder not palpable Access: Rt AVF matured. has PC Labs/imaging reviewed. Past medical history, past surgical history, family history, social history, allergy reviewed and noted as below Family Hx: no hx of CKD. Non contributory Objective - Vital Signs/Intake and Output Vital Signs (last 24 hours): Temp Pulse Resp BP Pulse Ox 97.4 F L 68 20 154/90 H 100 02/01/19 07:58 02/01/19 07:58 02/01/19 07:58 02/01/19 07:58 02/01/19 07:58 - Medications Medications: Current Medications Allopurinol (Zyloprim) 100 mg PO DAILY [facility] Last Admin: 02/01/19 10:15 Dose: 100 mg Amlodipine Besylate (Norvasc) 10 mg PO DAILY [facility] Last Admin: 01/31/19 09:23 Dose: 10 mg Atorvastatin Calcium (Lipitor) 10 mg PO HS [facility] Last Admin: 01/31/19 21:20 Dose: 10 mg Calcitriol (Rocaltrol) 0.25 mcg PO DAILY [facility] Last Admin: 02/01/19 10:12 Dose: 0.25 mcg Calcium Acetate (Phoslo) 667 mg PO WM [facility] Last Admin: 02/01/19 08:58 Dose: 667 mg Cholestyramine Resin (Questran) 4 gm PO TID [facility] Last Admin: 02/01/19 10:12 Dose: 4 gm Dextrose (Dextrose 50% Inj) 0 ml IV STAT PRN; Protocol PRN Reason: Hypoglycemia Protocol Dextrose (Glutose 15) 0 gm PO ONCE PRN; Protocol PRN Reason: Hypoglycemia Protocol Ferrous Sulfate (Feosol) 325 mg PO TID [facility] Last Admin: 02/01/19 10:06 Dose: 325 mg Folic Acid (Folic Acid) 1 mg PO DAILY [facility] Last Admin: 02/01/19 10:08 Dose: 1 mg Gabapentin (Neurontin) 100 mg PO TID [facility] Last Admin: 02/01/19 10:10 Dose: 100 mg Hydralazine HCl (Apresoline) 10 mg IV Q4 PRN PRN Reason: Other Metronidazole 250 mg/ (Miscellaneous) 50 mls @ 50 mls/hr IVPB Q8@0500,1300,2100 [facility]; Protocol Last Admin: 02/01/19 04:20 Dose: 50 mls/hr Insulin Detemir (Levemir) 5 units SC HS [facility] Last Admin: 01/31/19 22:25 Dose: 5 units Insulin Human Regular (Humulin R) 0 units SC ACHS [facility]; Protocol Last Admin: 02/01/19 07:55 Dose: Not Given Lactic Acid (Lac-Hydrin 12% Lotion (225 G)) 1 applic TOP DAILY [facility] Last Admin: 02/01/19 10:09 Dose: 1 applic Lactobacillus Acidophilus (Bacid Acidophilus) 1 cap PO BID [facility] Last Admin: 02/01/19 10:22 Dose: 1 cap Losartan Potassium (Cozaar) 100 mg PO DAILY [facility] Last Admin: 01/31/19 13:11 Dose: 100 mg Magnesium Oxide (Mag-Ox) 400 mg PO BID [facility] Last Admin: 02/01/19 10:10 Dose: 400 mg Metoclopramide HCl (Reglan) 10 mg IVP Q8 [facility] Last Admin: 02/01/19 10:12 Dose: 10 mg Metoprolol Tartrate (Lopressor) 100 mg PO Q12 [facility] Last Admin: 01/31/19 21:20 Dose: 100 mg Olopatadine HCl (Patanol 0.1% Opht Soln) 1 drop OU BID [facility] Last Admin: 02/01/19 10:11 Dose: 1 drop Ondansetron HCl (Zofran Inj) 4 mg IVP Q6H [facility] Last Admin: 02/01/19 10:22 Dose: 4 mg Ondansetron HCl (Zofran Tab) 4 mg PO Q4 PRN PRN Reason: Nausea/Vomiting Pantoprazole Sodium (Protonix Ec Tab) 40 mg PO BID [facility] Last Admin: 02/01/19 10:12 Dose: 40 mg Sitagliptin Phosphate (Januvia) 25 mg PO DAILY [facility] Last Admin: 02/01/19 10:09 Dose: 25 mg Vitamin B Complex/Vit C/Folic Acid (Nephro-Elsa) 1 tab PO DAILY [facility] Last Admin: 02/01/19 10:06 Dose: 1 tab - Labs Labs: 02/01/19 05:50 02/01/19 05:50
[2019-02-01] MEDS: Insulin Detemir 100 Units/ml Inj SC SCH (21:46)
[2019-02-02 05:31] LABS: HEMOGLOBIN 10.8 g/dL (12.0-18.0); MEAN CORPUSCULAR HEMOGLOBIN 24.5 pg (27.0-31.0); MEAN CORPUSCULAR HGB CONC 31.4 g/dL (33.0-37.0); RBC 4.43 Mil/uL (4.40-5.90); RED CELL DISTRIBUTION WIDTH 21.8 % (11.5-14.5); WHITE BLOOD COUNT 9.5 K/uL (4.8-10.8)
[2019-02-02 05:52] LABS: ALB/GLOB RATIO 0.7 (1.0-2.1); ALBUMIN 2.3 g/dL (3.5-5.0); CALCIUM 7.6 mg/dL (8.4-10.2)
[2019-02-02] MEDS: Insulin Regular 100 units/ml SC SCH ×4 (07:18→21:49)
[2019-02-02] MEDS: Cholestyramine 4 gm/Pkt UD PO SCH ×3 (08:54→17:16)
[2019-02-02] MEDS: Magnesium Oxide 400 mg Tab UD PO SCH ×2 (08:54→17:18)
[2019-02-02] MEDS: Olopatadine 0.1% Opht SOLN OU SCH ×2 (08:59→17:21)
[2019-02-02] MEDS: Pantoprazole 40 mg EC Tab PO SCH ×2 (08:59→17:20)
[2019-02-02] MEDS: Multivitamin Vitamin B Complex (Nephro-Vite) Tab PO SCH (09:00)
--- NOTE | 2019-02-02 10:08 | CP.PCM.PN ---
Subjective - Date & Time of Evaluation Date of Evaluation: 02/02/19 Time of Evaluation: 10:08 - Subjective Subjective: Patient awake and conscious feeling much better Vital signs stable No vomiting or diarrhea reported Objective - Vital Signs/Intake and Output Vital Signs (last 24 hours): Temp Pulse Resp BP Pulse Ox 97.6 F 62 18 117/77 98 02/02/19 08:48 02/02/19 08:59 02/02/19 08:48 02/02/19 08:59 02/02/19 08:48 - Medications Medications: Current Medications Allopurinol (Zyloprim) 100 mg PO DAILY [facility] Last Admin: 02/02/19 09:00 Dose: 100 mg Amlodipine Besylate (Norvasc) 10 mg PO DAILY [facility] Last Admin: 02/01/19 17:20 Dose: 10 mg Atorvastatin Calcium (Lipitor) 10 mg PO HS [facility] Last Admin: 02/01/19 21:48 Dose: 10 mg Calcitriol (Rocaltrol) 0.25 mcg PO DAILY [facility] Last Admin: 02/02/19 08:58 Dose: 0.25 mcg Calcium Acetate (Phoslo) 667 mg PO [facility] Last Admin: 02/02/19 07:50 Dose: 667 mg Cholestyramine Resin (Questran) 4 gm PO TID [facility] Last Admin: 02/02/19 08:54 Dose: 4 gm Dextrose (Dextrose 50% Inj) 0 ml IV STAT PRN; Protocol PRN Reason: Hypoglycemia Protocol Dextrose (Glutose 15) 0 gm PO ONCE PRN; Protocol PRN Reason: Hypoglycemia Protocol Ferrous Sulfate (Feosol) 325 mg PO TID [facility] Last Admin: 02/02/19 09:00 Dose: 325 mg Folic Acid (Folic Acid) 1 mg PO DAILY [facility] Last Admin: 02/02/19 09:00 Dose: 1 mg Gabapentin (Neurontin) 100 mg PO TID [facility] Last Admin: 02/02/19 08:58 Dose: 100 mg Hydralazine HCl (Apresoline) 10 mg IV Q4 PRN PRN Reason: Other Insulin Detemir (Levemir) 5 units SC [facility] Last Admin: 02/01/19 21:46 Dose: 5 units Insulin Human Regular (Humulin R) 0 units SC [facility]; Protocol Last Admin: 02/01/19 21:46 Dose: Not Given Lactic Acid (Lac-Hydrin 12% Lotion (225 G)) 1 applic TOP DAILY [facility] Last Admin: 02/02/19 08:58 Dose: 1 applic Lactobacillus Acidophilus (Bacid Acidophilus) 1 cap PO BID [facility] Last Admin: 02/01/19 17:27 Dose: 1 cap Losartan Potassium (Cozaar) 100 mg PO DAILY [facility] Last Admin: 02/01/19 17:24 Dose: 100 mg Magnesium Oxide (Mag-Ox) 400 mg PO BID [facility] Last Admin: 02/02/19 08:54 Dose: Not Given Metoclopramide HCl (Reglan) 10 mg IVP Q8 [facility] Last Admin: 02/02/19 09:01 Dose: 10 mg Metoprolol Tartrate (Lopressor) 100 mg PO Q12 [facility] Last Admin: 02/02/19 08:59 Dose: 100 mg Olopatadine HCl (Patanol 0.1% Opht Soln) 1 drop OU BID [facility] Last Admin: 02/02/19 08:59 Dose: 1 drop Ondansetron HCl (Zofran Inj) 4 mg IVP Q6H [facility] Last Admin: 02/02/19 04:27 Dose: 4 mg Ondansetron HCl (Zofran Tab) 4 mg PO Q4 PRN PRN Reason: Nausea/Vomiting Pantoprazole Sodium (Protonix Ec Tab) 40 mg PO BID [facility] Last Admin: 02/02/19 08:59 Dose: 40 mg Sitagliptin Phosphate (Januvia) 25 mg PO DAILY [facility] Last Admin: 02/02/19 08:57 Dose: 25 mg Vitamin B Complex/Vit C/Folic Acid (Nephro-Elsa) 1 tab PO DAILY [facility] Last Admin: 02/02/19 09:00 Dose: 1 tab - Labs Labs: 02/02/19 04:30 02/02/19 04:30 - Constitutional Appears: No Acute Distress - Eye Exam Eye Exam: Conjunctival injection - ENT Exam ENT Exam: Mucous Membranes Moist - Neck Exam Neck Exam: absent: Lymphadenopathy - Respiratory Exam Respiratory Exam: NORMAL BREATHING PATTERN. absent: Chest Wall Tenderness - Cardiovascular Exam Cardiovascular Exam: absent: Gallop, JVD, Rubs - GI/Abdominal Exam GI & Abdominal Exam: Soft, Normal Bowel Sounds - Extremities Exam Extremities Exam: absent: Calf Tenderness - Back Exam Back Exam: absent: CVA tenderness (L) - Neurological Exam Neurological Exam: Alert - Skin Skin Exam: absent: Cyanosis Assessment and Plan (1) ESRD (end stage renal disease) Assessment & Plan: End-stage renal disease on dialysis 3 times a week scheduled for dialysis tomorrow Patient admitted with nausea vomiting and diarrhea it seems like it is resolving and improving Diabetes mellitus Hypertension history Hyperphosphatemia Secondary hyperparathyroidism H/O T2DM, acute CVA, ESRD on HD, HTN, HLD, DMII, gastroparesis, SBO, ischemic bowel s/p small bowel resection in 11/2018 PSHx Small bowel resection in 11/2018, Cranial surgery for CVA, EGD last 09/18 with LA grade C erosive esophagitis, gastritis and moderate stenosis at pylorus (09/2018), Right LE BKA Recommendation Hemodialysis TTS Continue diabetic control and glycemic control Patient complaint of generalized weakness may need some bedside rehab Status: Acute (2) Intractable vomiting Status: Acute (3) Abdominal pain Status: Acute
--- NOTE | 2019-02-02 10:52 | PN ---
DATE: 02/02/2019 SUBJECTIVE: The patient seen and examined. Interim events noted. Consults noted and appreciated. The patient remains in progressive care unit on telemetry monitoring. Feels much better. No diarrhea. No vomiting. No abdominal pain. PHYSICAL EXAMINATION: GENERAL: The patient is in no acute distress. VITAL SIGNS: Stable. HEART: S1 and S2 normal, regular. LUNGS: Good bilateral air exchange. ABDOMEN: Soft, nontender. EXTREMITIES: No edema. No calf swelling. No tenderness. No acute ischemia. . CENTRAL NERVOUS SYSTEM: Essentially unchanged. LABORATORY DATA: Diagnostic data available. Diagnostic data reviewed. Telemetry monitoring does not show significant arrhythmia. ASSESSMENT AND PLAN: Overall, the patient is clinically stable and improved. Plan as ordered. Joel Lake MD
[2019-02-02] MEDS: Lactobacillus Acidophilus 500 MU Cap PO SCH ×2 (11:12→17:16)
[2019-02-02 16:05] VITALS: RESP 18
[2019-02-02] MEDS: Insulin Detemir 100 Units/ml Inj SC SCH (22:30)
[2019-02-03 05:50] LABS: HEMOGLOBIN 10.7 g/dL (12.0-18.0); MEAN CELL VOLUME 77.8 fl (80.0-94.0); MEAN CORPUSCULAR HEMOGLOBIN 24.6 pg (27.0-31.0); MEAN CORPUSCULAR HGB CONC 31.6 g/dL (33.0-37.0); RBC 4.33 Mil/uL (4.40-5.90); RED CELL DISTRIBUTION WIDTH 21.8 % (11.5-14.5)
[2019-02-03 06:33] LABS: ALB/GLOB RATIO 0.7 (1.0-2.1); ALBUMIN 2.3 g/dL (3.5-5.0); CALCIUM 7.9 mg/dL (8.4-10.2)
[2019-02-03] MEDS: Insulin Regular 100 units/ml SC SCH ×2 (08:25→12:26)
[2019-02-03] MEDS: Olopatadine 0.1% Opht SOLN OU SCH (09:20)
[2019-02-03] MEDS: Multivitamin Vitamin B Complex (Nephro-Vite) Tab PO SCH (09:20)
[2019-02-03] MEDS: Pantoprazole 40 mg EC Tab PO SCH (09:21)
[2019-02-03] MEDS: Cholestyramine 4 gm/Pkt UD PO SCH ×2 (09:21→13:29)
[2019-02-03] MEDS: Magnesium Oxide 400 mg Tab UD PO SCH (09:22)
--- NOTE | 2019-02-03 09:52 | CP.PCM.PN ---
Subjective - Date & Time of Evaluation Date of Evaluation: 02/03/19 Time of Evaluation: 09:51 - Subjective Subjective: no overnight events Objective - Vital Signs/Intake and Output Vital Signs (last 24 hours): Temp Pulse Resp BP Pulse Ox 98.3 F 64 18 148/84 100 02/03/19 08:00 02/03/19 08:00 02/03/19 08:00 02/03/19 08:00 02/03/19 08:00 - Medications Medications: Current Medications Allopurinol (Zyloprim) 100 mg PO DAILY [facility] Last Admin: 02/03/19 09:25 Dose: 100 mg Amlodipine Besylate (Norvasc) 10 mg PO DAILY [facility] Last Admin: 02/02/19 10:13 Dose: 10 mg Atorvastatin Calcium (Lipitor) 10 mg PO HS [facility] Last Admin: 02/02/19 21:19 Dose: 10 mg Calcitriol (Rocaltrol) 0.25 mcg PO DAILY [facility] Last Admin: 02/03/19 09:20 Dose: 0.25 mcg Calcium Acetate (Phoslo) 667 mg PO WM [facility] Last Admin: 02/03/19 08:20 Dose: 667 mg Cholestyramine Resin (Questran) 4 gm PO TID [facility] Last Admin: 02/03/19 09:21 Dose: 4 gm Dextrose (Dextrose 50% Inj) 0 ml IV STAT PRN; Protocol PRN Reason: Hypoglycemia Protocol Dextrose (Glutose 15) 0 gm PO ONCE PRN; Protocol PRN Reason: Hypoglycemia Protocol Ferrous Sulfate (Feosol) 325 mg PO TID [facility] Last Admin: 02/03/19 09:21 Dose: 325 mg Folic Acid (Folic Acid) 1 mg PO DAILY [facility] Last Admin: 02/03/19 09:22 Dose: 1 mg Gabapentin (Neurontin) 100 mg PO TID [facility] Last Admin: 02/03/19 09:22 Dose: 100 mg Hydralazine HCl (Apresoline) 10 mg IV Q4 PRN PRN Reason: Other Insulin Detemir (Levemir) 5 units SC [facility] Last Admin: 02/02/19 22:30 Dose: 5 units Insulin Human Regular (Humulin R) 0 units SC [facility]; Protocol Last Admin: 02/02/19 21:49 Dose: Not Given Lactic Acid (Lac-Hydrin 12% Lotion (225 G)) 1 applic TOP DAILY [facility] Last Admin: 02/03/19 09:20 Dose: 1 applic Lactobacillus Acidophilus (Bacid Acidophilus) 1 cap PO BID [facility] Last Admin: 02/02/19 17:16 Dose: 1 cap Losartan Potassium (Cozaar) 100 mg PO DAILY [facility] Last Admin: 02/02/19 13:14 Dose: 100 mg Magnesium Oxide (Mag-Ox) 400 mg PO BID [facility] Last Admin: 02/03/19 09:22 Dose: Not Given Metoclopramide HCl (Reglan) 10 mg IVP Q8 [facility] Last Admin: 02/03/19 09:25 Dose: Not Given Metoprolol Tartrate (Lopressor) 100 mg PO Q12 [facility] Last Admin: 02/03/19 09:22 Dose: Not Given Olopatadine HCl (Patanol 0.1% Opht Soln) 1 drop OU BID [facility] Last Admin: 02/03/19 09:20 Dose: 1 drop Ondansetron HCl (Zofran Inj) 4 mg IVP Q6H [facility] Last Admin: 02/03/19 06:20 Dose: 4 mg Ondansetron HCl (Zofran Tab) 4 mg PO Q4 PRN PRN Reason: Nausea/Vomiting Last Admin: 02/03/19 09:21 Dose: 4 mg Pantoprazole Sodium (Protonix Ec Tab) 40 mg PO BID [facility] Last Admin: 02/03/19 09:21 Dose: 40 mg Sitagliptin Phosphate (Januvia) 25 mg PO DAILY [facility] Last Admin: 02/03/19 09:22 Dose: 25 mg Vitamin B Complex/Vit C/Folic Acid (Nephro-Elsa) 1 tab PO DAILY [facility] Last Admin: 02/03/19 09:20 Dose: 1 tab - Labs Labs: 02/03/19 05:10 02/03/19 05:10 - Neck Exam Neck Exam: Normal Inspection - Respiratory Exam Respiratory Exam: Clear to Ausculation Bilateral, NORMAL BREATHING PATTERN - Cardiovascular Exam Cardiovascular Exam: REGULAR RHYTHM - GI/Abdominal Exam GI & Abdominal Exam: Soft, Normal Bowel Sounds Assessment and Plan - Assessment and Plan (Free Text) Assessment: 48 yo male with gastroparesis doing better convert GI meds to PO DC planning
--- NOTE | 2019-02-03 10:05 | PN ---
DATE: 02/03/2019 SUBJECTIVE: The patient is seen and examined. Interim events noted. Consults noted and appreciated. Nephrology followup and interventions noted and appreciated. The patient feels okay. No vomiting. No diarrhea. No abdominal pain. PHYSICAL EXAMINATION: GENERAL: The patient is in no acute distress. VITAL SIGNS: Stable. HEART: S1 and S2, normal and regular. LUNGS: Good bilateral air exchange. ABDOMEN: Soft, nontender. EXTREMITIES: No edema. No calf swelling. No tenderness. No acute ischemia. CENTRAL NERVOUS SYSTEM: Essentially unchanged. The patient is status post multiple amputations. DIAGNOSTIC DATA: Available diagnostic data reviewed. Telemetry monitoring does not show any significant arrhythmias. ASSESSMENT AND PLAN: Overall, the patient is medically stable. The patient is for probably be discharged home. Plan as ordered. Case and plan discussed with the patient. Case and plan will also be discussed with the patient's primary care physician, Dr. Gee. Plan as ordered. Joel Lake MD
--- NOTE | 2019-02-03 10:15 | CP.PCM.PN ---
Subjective - Date & Time of Evaluation Date of Evaluation: 02/03/19 Time of Evaluation: 07:20 - Subjective Subjective: Patient was seen at the bedside he appears to be comfortable. Vital signs reviewed Laboratory reviewed Scheduled to have dialysis shortly Patient appears to be stable. Objective - Vital Signs/Intake and Output Vital Signs (last 24 hours): Temp Pulse Resp BP Pulse Ox 98.3 F 64 18 148/84 100 02/03/19 08:00 02/03/19 08:00 02/03/19 08:00 02/03/19 08:00 02/03/19 08:00 - Medications Medications: Current Medications Allopurinol (Zyloprim) 100 mg PO DAILY [facility] Last Admin: 02/03/19 09:25 Dose: 100 mg Amlodipine Besylate (Norvasc) 10 mg PO DAILY [facility] Last Admin: 02/02/19 10:13 Dose: 10 mg Atorvastatin Calcium (Lipitor) 10 mg PO HS [facility] Last Admin: 02/02/19 21:19 Dose: 10 mg Calcitriol (Rocaltrol) 0.25 mcg PO DAILY [facility] Last Admin: 02/03/19 09:20 Dose: 0.25 mcg Calcium Acetate (Phoslo) 667 mg PO WM [facility] Last Admin: 02/03/19 08:20 Dose: 667 mg Cholestyramine Resin (Questran) 4 gm PO TID [facility] Last Admin: 02/03/19 09:21 Dose: 4 gm Dextrose (Dextrose 50% Inj) 0 ml IV STAT PRN; Protocol PRN Reason: Hypoglycemia Protocol Dextrose (Glutose 15) 0 gm PO ONCE PRN; Protocol PRN Reason: Hypoglycemia Protocol Ferrous Sulfate (Feosol) 325 mg PO TID [facility] Last Admin: 02/03/19 09:21 Dose: 325 mg Folic Acid (Folic Acid) 1 mg PO DAILY [facility] Last Admin: 02/03/19 09:22 Dose: 1 mg Gabapentin (Neurontin) 100 mg PO TID [facility] Last Admin: 02/03/19 09:22 Dose: 100 mg Hydralazine HCl (Apresoline) 10 mg IV Q4 PRN PRN Reason: Other Insulin Detemir (Levemir) 5 units SC [facility] Last Admin: 02/02/19 22:30 Dose: 5 units Insulin Human Regular (Humulin R) 0 units SC [facility]; Protocol Last Admin: 02/02/19 21:49 Dose: Not Given Lactic Acid (Lac-Hydrin 12% Lotion (225 G)) 1 applic TOP DAILY [facility] Last Admin: 02/03/19 09:20 Dose: 1 applic Lactobacillus Acidophilus (Bacid Acidophilus) 1 cap PO BID [facility] Last Admin: 02/02/19 17:16 Dose: 1 cap Losartan Potassium (Cozaar) 100 mg PO DAILY [facility] Last Admin: 02/02/19 13:14 Dose: 100 mg Magnesium Oxide (Mag-Ox) 400 mg PO BID [facility] Last Admin: 02/03/19 09:22 Dose: Not Given Metoclopramide HCl (Reglan) 10 mg IVP Q8 [facility] Last Admin: 02/03/19 09:25 Dose: Not Given Metoprolol Tartrate (Lopressor) 100 mg PO Q12 [facility] Last Admin: 02/03/19 09:22 Dose: Not Given Olopatadine HCl (Patanol 0.1% Opht Soln) 1 drop OU BID [facility] Last Admin: 02/03/19 09:20 Dose: 1 drop Ondansetron HCl (Zofran Inj) 4 mg IVP Q6H [facility] Last Admin: 02/03/19 06:20 Dose: 4 mg Ondansetron HCl (Zofran Tab) 4 mg PO Q4 PRN PRN Reason: Nausea/Vomiting Last Admin: 02/03/19 09:21 Dose: 4 mg Pantoprazole Sodium (Protonix Ec Tab) 40 mg PO BID [facility] Last Admin: 02/03/19 09:21 Dose: 40 mg Sitagliptin Phosphate (Januvia) 25 mg PO DAILY [facility] Last Admin: 02/03/19 09:22 Dose: 25 mg Vitamin B Complex/Vit C/Folic Acid (Nephro-Elsa) 1 tab PO DAILY [facility] Last Admin: 02/03/19 09:20 Dose: 1 tab - Labs Labs: 02/03/19 05:10 02/03/19 05:10 - Constitutional Appears: No Acute Distress - Eye Exam Eye Exam: Conjunctival injection - ENT Exam ENT Exam: Mucous Membranes Moist - Neck Exam Neck Exam: absent: Lymphadenopathy - Respiratory Exam Respiratory Exam: NORMAL BREATHING PATTERN - Cardiovascular Exam Cardiovascular Exam: absent: Gallop, JVD, Rubs - GI/Abdominal Exam GI & Abdominal Exam: Soft, Normal Bowel Sounds - Extremities Exam Extremities Exam: absent: Calf Tenderness - Back Exam Back Exam: absent: CVA tenderness (L), CVA tenderness (R) - Neurological Exam Neurological Exam: Alert - Psychiatric Exam Psychiatric exam: Normal Affect - Skin Skin Exam: absent: Cyanosis Assessment and Plan (1) ESRD (end stage renal disease) Assessment & Plan: End-stage renal disease on dialysis 3 times a week scheduled shortly. Patient admitted with nausea vomiting and diarrhea it seems like it is resolving and improving Diabetes mellitus Hypertension history Hyperphosphatemia Secondary hyperparathyroidism H/O T2DM, acute CVA, ESRD on HD, HTN, HLD, DMII, gastroparesis, SBO, ischemic bowel s/p small bowel resection in 11/2018 PSHx Small bowel resection in 11/2018, Cranial surgery for CVA, EGD last 09/18 with LA grade C erosive esophagitis, gastritis and moderate stenosis at pylorus (09/2018), Right LE BKA Recommendation Patient is stable and continued to improve Patient to have dialysis shortly as scheduled And patient will continue to have dialysis as outpatient Continue renal medications and follow-up at the dialysis unit Status: Acute (2) Intractable vomiting Status: Acute (3) Abdominal pain Status: Acute
[2019-02-03] MEDS: Lactobacillus Acidophilus 500 MU Cap PO SCH (10:28)
[2019-02-03 12:07] VITALS: TEMP 98.1
[2019-02-03 15:53] VITALS: BP 124/82; PULSE 70; O2SAT 99
== END 2019-02-03 16:00 | disposition home health service (06) | DRG 73 ==
LOC: H.ER 15:52 → H.ERHOLD 18:35 → H.TEL 21:58
PROVIDERS: ADMIT Internal Medicine; ATTEND Internal Medicine
PROC: 5A1D70Z Performance of Urinary Filtration, Intermittent, Less than 6 Hours Per Day (ICD-10-PCS; principal; 2019-01-29)
PROC: 5A1D70Z Performance of Urinary Filtration, Intermittent, Less than 6 Hours Per Day (ICD-10-PCS; 2019-02-01)
PROC: 5A1D70Z Performance of Urinary Filtration, Intermittent, Less than 6 Hours Per Day (ICD-10-PCS; 2019-02-03)
DX: E11.43 Type 2 diabetes mellitus with diabetic autonomic (poly)neuropathy (principal); N18.6 End stage renal disease; I12.0 Hypertensive chronic kidney disease with stage 5 chronic kidney disease or end stage renal disease; N25.81 Secondary hyperparathyroidism of renal origin; K31.84 Gastroparesis; K52.89 Other specified noninfective gastroenteritis and colitis; E87.5 Hyperkalemia; E11.22 Type 2 diabetes mellitus with diabetic chronic kidney disease; E83.39 Other disorders of phosphorus metabolism; D64.9 Anemia, unspecified; E78.5 Hyperlipidemia, unspecified; E78.00 Pure hypercholesterolemia, unspecified; Z99.2 Dependence on renal dialysis; Z89.511 Acquired absence of right leg below knee; Z79.4 Long term (current) use of insulin; Z79.84 Long term (current) use of oral hypoglycemic drugs; Z86.73 Personal history of transient ischemic attack (TIA), and cerebral infarction without residual deficits; Z87.19 Personal history of other diseases of the digestive system; Z87.891 Personal history of nicotine dependence; Z88.0 Allergy status to penicillin

== ENCOUNTER 2019-04-20 18:20 | Inpatient (IN) | payer OTHER ==
[2019-04-20 18:21] VITALS: BMI 35.9
--- NOTE | 2019-04-20 22:02 | ED PDOC ---
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 Patient last had abdominal surgery in November 2018. Per prior notes, patient has a history of chronic diarrhea as well. no recent antibiotic use. He denies any fever, chills, abdominal pain at this time. No additional complaints. Past Medical History Reviewed: Historical Data, Nursing Documentation, Vital Signs Vital Signs: Last Vital Signs Temp 97.6 F 04/20/19 20:04 Pulse 97 H 04/20/19 20:04 Resp 18 04/20/19 20:04 BP 177/97 H 04/20/19 20:04 Pulse Ox 97 04/20/19 20:04 Primary Care Provider: FAMILY PROVIDER,NO - Medical History PMH: Anemia, CVA, Diabetes (type II), Gastritis, HTN, Hypercholesterolemia, Hyperlipidemia, End Stage Renal Disease, Chronic Kidney Disease Denies: Arthritis, CHF, COPD, Deep Vein Thrombosis, HIV, Hypothyroidism, Rheumatoid Arthritis - Surgical History Surgical History: Denies: Pacemaker Other surgeries: cranial surgery, right foot amputation, - Family History Family History: States: Unknown Family Hx - Social History Current smoker - smoking cessation education provided: No Ex-Smoker (has not smoked in the last 12 months): Yes Alcohol: None Drugs: Denies - Immunization History Hx Tetanus Toxoid Vaccination: No Hx Influenza Vaccination: No Hx Pneumococcal Vaccination: No - Home Medications Home Medications: Ambulatory Orders Medication Instructions Recorded Ferrous Sulfate [Feosol] 325 mg PO TID 10/16/18 Allopurinol [Zyloprim] 100 mg PO DAILY #30 tab 11/06/18 Calcitriol 0.25 mcg PO TID 30 Days capsule 11/06/18 Folic Acid 1 mg PO DAILY #30 tab 11/06/18 Gabapentin [Neurontin] 100 mg PO TID 30 Days capsule 11/06/18 Rosuvastatin Calcium [Crestor] 5 mg PO HS 30 Days tab 11/06/18 Ammonium Lactate 12% [Lac-Hydrin 1 applic TOP DAILY #1 bottle 12/04/18 12% Lotion (225 g)] Losartan [Cozaar] 50 mg PO QPM #30 tab 12/04/18 SITagliptin [Januvia] 25 mg PO BID 12/05/18 Vitamin B Complex/Vit C/Folic 1 tab PO DAILY 12/05/18 [Nephro-Elsa] Epoetin Mitchell [Procrit] 10,000 unit IV MWF ml 12/26/18 Insulin Detemir [Levemir] 5 units SC HS vial 12/26/18 Lactobacillus Acidophilus [Bacid 1 cap PO BID cap 12/26/18 Acidophilus] Magnesium Oxide [Mag-Ox] 400 mg PO BID tab 12/26/18 Metoprolol Tartrate [Lopressor] 50 mg PO Q12 tab 12/26/18 amLODIPine [Norvasc] 10 mg PO DAILY tab 12/26/18 Cholestyramine [Questran] 4 gm PO TID 01/28/19 Famotidine [Pepcid] 40 mg PO DAILY 01/28/19 Ketotifen Fumarate [Zaditor] 1 drop EACHEYE BID 01/28/19 Metoclopramide HCl [Reglan] 10 mg PO Q8 PRN #30 tablet 02/03/19 Ondansetron [Zofran Tab] 4 mg PO Q4 PRN #90 tab 02/03/19 Pantoprazole [Protonix EC Tab] 40 mg PO BID #60 ect 02/03/19 - Allergies Allergies/Adverse Reactions: Allergies Allergy/AdvReac Type Severity Reaction Status Date / Time Penicillins Allergy RASH Verified 04/20/19 20:10 Review of Systems ROS Statement: Except As Marked, All Systems Reviewed And Found Negative Constitutional: Negative for: Fever, Chills Cardiovascular: Negative for: Chest Pain Respiratory: Negative for: Shortness of Breath Gastrointestinal: Positive for: Vomiting, Diarrhea Physical Exam - Reviewed Nursing Documentation Reviewed: Yes Vital Signs Reviewed: Yes - Physical Exam Appears: Positive for: Non-toxic, No Acute Distress Head Exam: Positive for: ATRAUMATIC, NORMAL INSPECTION, NORMOCEPHALIC Skin: Positive for: Normal Color Eye Exam: Positive for: Normal appearance, EOMI, PERRL ENT: Positive for: Normal ENT Inspection Neck: Positive for: Normal, Supple Cardiovascular/Chest: Positive for: Regular Rate, Rhythm. Negative for: Tachycardia Respiratory: Positive for: Normal Breath Sounds. Negative for: Respiratory Distress Gastrointestinal/Abdominal: Positive for: Normal Exam, Soft Back: Positive for: Normal Inspection Extremity: Positive for: Deformity (right foot amputation with stump at ankle) Neurological/Psych: Positive for: Awake, Alert, Normal Tone - Laboratory Results Result Diagrams: 04/20/19 22:22 04/20/19 23:09 - ECG ECG: Positive for: Interpreted By Me, Viewed By Me ECG Rhythm: Positive for: Sinus Rhythm Rate: 81 O2 Sat by Pulse Oximetry: 97 (RA) Pulse Ox Interpretation: Normal Medical Decision Making Medical Decision Making: Impression: Diarrhea and vomiting since today; history of chronic diarrhea, also ESRD rule out sepsis, hyperkalemia Plan: -- Labs -- Immodium 4mg PO -- Zofran 4mg IV Scribe Attestation: Documented by Christine Plummer acting as a scribe for Mariam Piña MD. Provider Scribe Attestation: All medical record entries made by the Scribe were at my direction and personally dictated by me. I have reviewed the chart and agree that the record accurately reflects my personal performance of the history, physical exam, medical decision making, and the department course for this patient. I have also personally directed, reviewed, and agree with the discharge instructions and disposition. Time: 2355 -- On repeat labs, potassium resulted from 8 to 7. will medically treat at this time. Additional medications ordered as well as EKG. -- Patient to be admitted under Dr. Lake who is covering for Dr. Ysabel Graf. -- KayeXALATE 30 gm PO -- HumuLIN R 4 units SC -- Dextrose 50% Inj 50 ml IV Time: 0000 Plan: -- Humulin R 8 units -- Sodium Bicarbonate 50 meq IVP -- Call nephrology Time: 4 -- Spoke to Dr. Lake who accepts patient to his service. he covers dr graf. Time: 13 Plan: -- C Diff Toxin A B ordered as well reeval of pt, pt comfortbale in no distress sleeping comfortable agreeable with plan for admission. Scribe Attestation: Documented by Aman Cifuentes, acting as a scribe forMariam Piña MD. Provider Scribe Attestation: All medical record entries made by the Scribe were at my direction and personally dictated by me. I have reviewed the chart and agree that the record accurately reflects my personal performance of the history, physical exam, medical decision making, and the department course for this patient. I have also personally directed, reviewed, and agree with the discharge instructions and disposition. Disposition - Clinical Impression Clinical Impression: Hyperkalemia, Diarrhea - Patient ED Disposition Is Patient to be Admitted: No Counseled Patient/Family Regarding: Studies Performed, Diagnosis, Need For Followup - Disposition Disposition: Routine/Home Disposition Time: 00:00 Condition: IMPROVED
[2019-04-20 22:29] LABS: BASO # 0.1 K/uL (0.0-0.2); BASO % 0.7 % (0.0-2.0); EOS % 0.5 % (0.0-4.0); LYMPH # 1.7 K/uL (1.0-4.3); LYMPH % 21.4 % (20.0-40.0); MEAN CELL VOLUME 79.9 fl (80.0-94.0); MEAN CORPUSCULAR HEMOGLOBIN 25.6 pg (27.0-31.0); MEAN PLATELET VOLUME 8.1 fl (7.2-11.7); MONO # 0.5 K/uL (0.0-0.8); MONO % 6.3 % (0.0-10.0); NEUT # 5.7 K/uL (1.8-7.0); NEUT % 71.1 % (50.0-75.0); RBC 3.92 Mil/uL (4.40-5.90); RED CELL DISTRIBUTION WIDTH 19.5 % (11.5-14.5); WHITE BLOOD COUNT 7.9 K/uL (4.8-10.8)
[2019-04-20 22:37] LABS: ALB/GLOB RATIO 0.6 (1.0-2.1)
[2019-04-20 22:38] LABS: ALBUMIN 2.8 g/dL (3.5-5.0); CALCIUM 7.9 mg/dL (8.4-10.2)
[2019-04-20 23:45] LABS: ALB/GLOB RATIO 0.6 (1.0-2.1); ALBUMIN 2.5 g/dL (3.5-5.0)
[2019-04-20] MEDS ORDERED: Insulin Regular 100 units/ml SC STA ×2 (23:57)
[2019-04-21] MEDS ORDERED: Sodium Bicarbonate (8.4%) 50 Meq Syringe IVP ONE (00:02)
[2019-04-21] MEDS ORDERED: Insulin Regular 100 units/ml ONE (01:00)
[2019-04-21] MEDS ORDERED: Sodium Bicarbonate (8.4%) 50 Meq Syringe ONE (01:00)
[2019-04-21] MEDS ORDERED: Labetalol 5mg/ml (4ml) IVP STA (06:12)
[2019-04-21] MEDS ORDERED: Labetalol 5mg/ml (4ml) ONE (06:14)
--- NOTE | 2019-04-21 07:02 | CP.PCM.HP ---
<ArangoRosario - Last Filed: 04/21/19 10:21> History of Present Illness - History of Present Illness History of Present Illness: 48 yo male with history of ESRD with dialysis 3x per week (MWF, missed last saturday), CVA, diabetes, hypertension, SBO and ischemic bowel, present to the ED with complaints of several episodes of nonbloody nonbilious emesis associated w/ diffuse abdominal pain today. Patient last had abdominal surgery in November 2018. Per prior notes, patient has a history of chronic diarrhea as well. Denies recent antibiotic use. He denies any fever, chills, abdominal pain at this time. No additional complaints. Patient was seen and examined this morning with Dr. Lake. States he is feeling better. PMD: Dr. Gee PMHx - T2DM, acute CVA, ESRD on HD, HTN, HLD, DMII, gastroparesis, SBO, ischemic bowel s/p small bowel resection in 11/2018 PSHx Small bowel resection in 11/2018, Cranial surgery for CVA, EGD last 09/18 with LA grade C erosive esophagitis, gastritis and moderate stenosis at pylorus (09/2018), Right LE BKA FMHx - unremarkable SocHx -Former smoker. Denies etoh or illicit drug use Allergies: Penicillin Medications: reviewed Present on Admission - Present on Admission Any Indicators Present on Admission: No History of Uncontrolled Diabetes: Yes Review of Systems - Review of Systems All systems: reviewed and no additional remarkable complaints except (HPI) Past Patient History - Infectious Disease Hx of Infectious Diseases: None - Past Medical History & Family History Past Medical History?: Yes - Past Social History Alcohol: None Drugs: Denies - CARDIAC Hx Congestive Heart Failure: No Hx Hypercholesterolemia: Yes Hx Hypertension: Yes Hx Pacemaker: No - PULMONARY Hx Chronic Obstructive Pulmonary Disease (COPD): No - NEUROLOGICAL Hx Neurological Disorder: Yes HX Cerebrovascular Accident: Yes - HEENT Hx HEENT Problems: No - RENAL Hx Chronic Kidney Disease: Yes - ENDOCRINE/METABOLIC Hx Hypothyroidism: No - HEMATOLOGICAL/ONCOLOGICAL Hx Anemia: Yes Hx Human Immunodeficiency Virus (HIV): No - INTEGUMENTARY Hx Dermatological Problems: No - MUSCULOSKELETAL/RHEUMATOLOGICAL Hx Arthritis: No Hx Rheumatoid Arthritis: No - GASTROINTESTINAL Hx Gastritis: Yes - GENITOURINARY/GYNECOLOGICAL Hx Genitourinary Disorders: No - PSYCHIATRIC Hx Psychophysiologic Disorder: No Hx Substance Use: No - SURGICAL HISTORY Hx Mastectomy: No - ANESTHESIA Hx Anesthesia: Yes Hx Anesthesia Reactions: No Hx Malignant Hyperthermia: No Meds Allergies/Adverse Reactions: Allergies Allergy/AdvReac Type Severity Reaction Status Date / Time Penicillins Allergy RASH Verified 04/20/19 20:10 Physical Exam - Constitutional Appears: Non-toxic, No Acute Distress Results - Vital Signs Recent Vital Signs: Last Vital Signs Temp 98.3 F 04/21/19 06:42 Pulse 80 04/21/19 06:42 Resp 18 04/21/19 06:42 BP 188/103 H 04/21/19 06:42 Pulse Ox 100 04/21/19 06:42 - Labs Result Diagrams: 04/20/19 22:22 04/21/19 09:15 Labs: Laboratory Results - last 24 hr 04/20/19 04/20/19 04/20/19 22:22 22:22 23:09 WBC 7.9 RBC 3.92 L Hgb 10.0 L Hct 31.3 L MCV 79.9 L D MCH 25.6 L MCHC 32.0 L RDW 19.5 H Plt Count 231 MPV 8.1 Neut % (Auto) 71.1 Lymph % (Auto) 21.4 [place] % (Auto) 6.3 Eos % (Auto) 0.5 Baso % (Auto) 0.7 Neut # (Auto) 5.7 Lymph # (Auto) 1.7 [place] # (Auto) 0.5 Eos # (Auto) 0.0 Baso # (Auto) 0.1 Sodium 134 135 Potassium 8.0 H* D 7.0 H* Chloride 109 H 110 H Carbon Dioxide 17 L 19 L Anion Gap 16 13 BUN 43 H 41 H Creatinine 6.8 H 7.2 H Est GFR ( Amer) 11 10 Est GFR (Non-Af Amer) 9 8 POC Glucose (mg/dL) Random Glucose 76 81 Calcium 7.9 L 8.0 L Total Bilirubin 1.0 0.4 AST 60 H D 28 ALT 19 L 23 Alkaline Phosphatase 92 97 Total Protein 7.3 6.6 Albumin 2.8 L D 2.5 L Globulin 4.5 H 4.1 H Albumin/Globulin Ratio 0.6 L 0.6 L 04/21/19 01:44 WBC RBC Hgb Hct MCV MCH MCHC RDW Plt Count MPV Neut % (Auto) Lymph % (Auto) [place] % (Auto) Eos % (Auto) Baso % (Auto) Neut # (Auto) Lymph # (Auto) [place] # (Auto) Eos # (Auto) Baso # (Auto) Sodium Potassium Chloride Carbon Dioxide Anion Gap BUN Creatinine Est GFR ( Amer) Est GFR (Non-Af Amer) POC Glucose (mg/dL) 157 H Random Glucose Calcium Total Bilirubin AST ALT Alkaline Phosphatase Total Protein Albumin Globulin Albumin/Globulin Ratio Assessment & Plan - Assessment and Plan (Free Text) Assessment: 48 yo male with h/o ESRD on HD admitted with Hyperkalemia and diarrhea. Plan: Hyperkalemia - VSS stable tho BP on the high side - EKG NSR, no acute changes - s/p Kyexalate, insulin and D5 - stat CMP - start Calcium gluconate - kayexalate marya - labs in am - rest of plan as ordered Chronic diarrhea likely secondary to short bowel syndrome - Afebrile and no wbc - Dietary referral for short bowel diet - f/u c diff ESRD on HD - Missed last 2 rounds - Programming Equipment Operator consult- Dr. Rodríguez - resume home medications. Hypertension - not controlled - resume home medications DMII - Accucheck, SSI, hypoglycemia protocol - resume home medication DVT prophylaxis: - Heparin Case seen and discussed with Dr Lake <Joel Lake - Last Filed: 04/21/19 19:52> Results - Vital Signs Recent Vital Signs: Last Vital Signs Temp 98.2 F 04/21/19 15:54 Pulse 73 04/21/19 15:54 Resp 16 04/21/19 15:54 BP 140/65 04/21/19 15:54 Pulse Ox 100 04/21/19 15:54 - Labs Result Diagrams: 04/20/19 22:22 04/21/19 18:16 Labs: Laboratory Results - last 24 hr 04/20/19 04/20/19 04/20/19 22:22 22:22 23:09 WBC 7.9 RBC 3.92 L Hgb 10.0 L Hct 31.3 L MCV 79.9 L D MCH 25.6 L MCHC 32.0 L RDW 19.5 H Plt Count 231 MPV 8.1 Neut % (Auto) 71.1 Lymph % (Auto) 21.4 [place] % (Auto) 6.3 Eos % (Auto) 0.5 Baso % (Auto) 0.7 Neut # (Auto) 5.7 Lymph # (Auto) 1.7 [place] # (Auto) 0.5 Eos # (Auto) 0.0 Baso # (Auto) 0.1 Sodium 134 135 Potassium 8.0 H* D 7.0 H* Chloride 109 H 110 H Carbon Dioxide 17 L 19 L Anion Gap 16 13 BUN 43 H 41 H Creatinine 6.8 H 7.2 H Est GFR ( Amer) 11 10 Est GFR (Non-Af Amer) 9 8 POC Glucose (mg/dL) Random Glucose 76 81 Calcium 7.9 L 8.0 L Phosphorus Magnesium Total Bilirubin 1.0 0.4 AST 60 H D 28 ALT 19 L 23 Alkaline Phosphatase 92 97 Total Protein 7.3 6.6 Albumin 2.8 L D 2.5 L Globulin 4.5 H 4.1 H Albumin/Globulin Ratio 0.6 L 0.6 L 04/21/19 04/21/19 04/21/19 01:44 03:29 09:15 WBC RBC Hgb Hct MCV MCH MCHC RDW Plt Count MPV Neut % (Auto) Lymph % (Auto) [place] % (Auto) Eos % (Auto) Baso % (Auto) Neut # (Auto) Lymph # (Auto) [place] # (Auto) Eos # (Auto) Baso # (Auto) Sodium 137 Potassium 5.6 H Chloride 110 H Carbon Dioxide 19 L Anion Gap 14 BUN 41 H Creatinine 7.2 H Est GFR ( Amer) 10 Est GFR (Non-Af Amer) 8 POC Glucose (mg/dL) 157 H 93 Random Glucose 75 Calcium 8.2 L Phosphorus 4.9 H Magnesium 1.0 L* D Total Bilirubin 0.5 AST 27 ALT 28 Alkaline Phosphatase 97 Total Protein 6.8 Albumin 2.6 L Globulin 4.2 H Albumin/Globulin Ratio 0.6 L 04/21/19 04/21/19 04/21/19 12:32 16:32 18:16 WBC RBC Hgb Hct MCV MCH MCHC RDW Plt Count MPV Neut % (Auto) Lymph % (Auto) [place] % (Auto) Eos % (Auto) Baso % (Auto) Neut # (Auto) Lymph # (Auto) [place] # (Auto) Eos # (Auto) Baso # (Auto) Sodium 133 Potassium 3.9 Chloride 100 Carbon Dioxide 26 Anion Gap 11 BUN 19 Creatinine 3.8 H Est GFR ( Amer) 21 Est GFR (Non-Af Amer) 17 POC Glucose (mg/dL) 105 101 Random Glucose 125 H Calcium 7.3 L Phosphorus Magnesium Total Bilirubin 0.4 AST 27 ALT 22 Alkaline Phosphatase 94 Total Protein 6.2 L Albumin 2.5 L Globulin 3.8 Albumin/Globulin Ratio 0.7 L Assessment & Plan - Assessment and Plan (Free Text) Assessment: Patient was personally seen and examined by me in rounds with residents. Available labs and diagnostic data reviewed. Case, Patient's condition and management plan discussed with residents in rounds. Agree with resident's progress note. Plan: As ordered.
[2019-04-21] MEDS ORDERED: Dextrose 50% SYRINGE Inj (50 ml) IV PRN (07:26)
[2019-04-21] MEDS ORDERED: Glucagon Recombinant 1 mg Inj IM PRN (07:26)
--- NOTE | 2019-04-21 09:34 | CP.PCM.CON ---
History of Present Illness - History of Present Illness History of Present Illness: Patient is 48 years of age male who presented with diarrhea known with end-stage renal disease on maintenance hemodialysis 3 times a week but he did not show up for dialysis for about 10 days and just noted that his potassium was elevated and I ordered a stat potassium right now when I know about the case immediately and the patient seemed like he does not care and he decided not to come for dialysis for the past 10 days or so because of diarrhea and and the patient has a past medical history related to multitude of medical problems including as noted in the following past medical history H/O T2DM, acute CVA, ESRD on HD, HTN, HLD, DMII, gastroparesis, SBO, ischemic bowel s/p small bowel resection in 11/2018 PSHx Small bowel resection in 11/2018, Cranial surgery for CVA, EGD last 09/18 with LA grade C erosive esophagitis, gastritis and moderate stenosis at pylorus (09/2018), Right LE BKA Social history not contributory as noted in the medical record Review of Systems - Constitutional Constitutional: absent: Anorexia - EENT Eyes: absent: Exophthalmos Ears: absent: Tinnitus - Cardiovascular Cardiovascular: absent: Acrocyanosis, Edema, Leg Ulcers, Orthopnea - Respiratory Respiratory: absent: Cough, Chest Congestion - Gastrointestinal Gastrointestinal: Abdominal Pain, Bloating. absent: Coffee Ground Emesis, Cramping, Nausea, Vomiting - Genitourinary Genitourinary: Nocturia. absent: Dysuria - Musculoskeletal Musculoskeletal: Muscle Weakness. absent: Arthralgias, Numbness - Integumentary Integumentary: absent: Acne - Neurological Neurological: absent: Confusion, Focal Weakness, Headaches, Restless Legs - Psychiatric Psychiatric: absent: Anxiety - Endocrine Endocrine: Fatigue - Hematologic/Lymphatic Hematologic: absent: Easy Bleeding Past Patient History - Infectious Disease Hx of Infectious Diseases: None - Past Medical History & Family History Past Medical History?: Yes - Past Social History Alcohol: None Drugs: Denies - CARDIAC Hx Congestive Heart Failure: No Hx Hypercholesterolemia: Yes Hx Hypertension: Yes Hx Pacemaker: No - PULMONARY Hx Chronic Obstructive Pulmonary Disease (COPD): No - NEUROLOGICAL Hx Neurological Disorder: Yes HX Cerebrovascular Accident: Yes - HEENT Hx HEENT Problems: No - RENAL Hx Chronic Kidney Disease: Yes - ENDOCRINE/METABOLIC Hx Hypothyroidism: No - HEMATOLOGICAL/ONCOLOGICAL Hx Anemia: Yes Hx Human Immunodeficiency Virus (HIV): No - INTEGUMENTARY Hx Dermatological Problems: No - MUSCULOSKELETAL/RHEUMATOLOGICAL Hx Arthritis: No Hx Rheumatoid Arthritis: No - GASTROINTESTINAL Hx Gastritis: Yes - GENITOURINARY/GYNECOLOGICAL Hx Genitourinary Disorders: No - PSYCHIATRIC Hx Psychophysiologic Disorder: No Hx Substance Use: No - SURGICAL HISTORY Hx Mastectomy: No - ANESTHESIA Hx Anesthesia: Yes Hx Anesthesia Reactions: No Hx Malignant Hyperthermia: No Meds Allergies/Adverse Reactions: Allergies Allergy/AdvReac Type Severity Reaction Status Date / Time Penicillins Allergy RASH Verified 04/20/19 20:10 - Medications Medications: Current Medications Amlodipine Besylate (Norvasc) 10 mg PO DAILY [facility] Atorvastatin Calcium (Lipitor) 10 mg PO HS [facility] Calcitriol (Rocaltrol) 0.25 mcg PO TID [facility] Dextrose (Dextrose 50% Inj) 0 ml IV STAT PRN; Protocol PRN Reason: Hypoglycemia Protocol Dextrose (Glutose 15) 0 gm PO ONCE PRN; Protocol PRN Reason: Hypoglycemia Protocol Gabapentin (Neurontin) 100 mg PO TID [facility] Glucagon (Glucagen Diagnostic Kit) 0 mg IM STAT PRN; Protocol PRN Reason: Hypoglycemia Protocol Heparin Sodium (Porcine) (Heparin) 5,000 units SC Q12 [facility]; Protocol Insulin Human Lispro (Humalog) 0 units SC ACHS [facility]; Protocol Lactic Acid (Lac-Hydrin 12% Lotion (225 G)) 1 applic TOP DAILY [facility] Metoprolol Tartrate (Lopressor) 50 mg PO Q12 [facility] Ondansetron HCl (Zofran Inj) 4 mg IVP Q6 PRN PRN Reason: Nausea/Vomiting Pantoprazole Sodium (Protonix Ec Tab) 40 mg PO DAILY [facility] Vitamin B Complex/Vit C/Folic Acid (Nephro-Elsa) 1 tab PO DAILY [facility] Physical Exam - Constitutional Appears: No Acute Distress - Eye Exam Eye Exam: Conjunctival injection - ENT Exam ENT Exam: Mucous Membranes Moist - Neck Exam Neck exam: Negative for: Lymphadenopathy - Respiratory Exam Respiratory Exam: NORMAL BREATHING PATTERN. absent: Rhonchi, Wheezes - Cardiovascular Exam Cardiovascular Exam: REGULAR RHYTHM. absent: Gallop, JVD, Rubs - GI/Abdominal Exam GI & Abdominal Exam: Normal Bowel Sounds. absent: Distended, Guarding - Extremities Exam Extremities exam: Negative for: calf tenderness - Back Exam Back exam: absent: CVA tenderness (L), CVA tenderness (R) - Neurological Exam Neurological exam: Alert - Psychiatric Exam Psychiatric exam: Normal Affect Results - Vital Signs Recent Vital Signs: Last Vital Signs Temp 97.8 F 04/21/19 07:47 Pulse 73 04/21/19 07:47 Resp 18 04/21/19 07:47 BP 166/96 H 04/21/19 07:47 Pulse Ox 100 04/21/19 07:47 - Labs Result Diagrams: 04/20/19 22:22 04/20/19 23:09 Labs: Laboratory Results - last 24 hr 04/20/19 04/20/19 04/20/19 22:22 22:22 23:09 WBC 7.9 RBC 3.92 L Hgb 10.0 L Hct 31.3 L MCV 79.9 L D MCH 25.6 L MCHC 32.0 L RDW 19.5 H Plt Count 231 MPV 8.1 Neut % (Auto) 71.1 Lymph % (Auto) 21.4 [place] % (Auto) 6.3 Eos % (Auto) 0.5 Baso % (Auto) 0.7 Neut # (Auto) 5.7 Lymph # (Auto) 1.7 [place] # (Auto) 0.5 Eos # (Auto) 0.0 Baso # (Auto) 0.1 Sodium 134 135 Potassium 8.0 H* D 7.0 H* Chloride 109 H 110 H Carbon Dioxide 17 L 19 L Anion Gap 16 13 BUN 43 H 41 H Creatinine 6.8 H 7.2 H Est GFR ( Amer) 11 10 Est GFR (Non-Af Amer) 9 8 POC Glucose (mg/dL) Random Glucose 76 81 Calcium 7.9 L 8.0 L Total Bilirubin 1.0 0.4 AST 60 H D 28 ALT 19 L 23 Alkaline Phosphatase 92 97 Total Protein 7.3 6.6 Albumin 2.8 L D 2.5 L Globulin 4.5 H 4.1 H Albumin/Globulin Ratio 0.6 L 0.6 L 04/21/19 01:44 WBC RBC Hgb Hct MCV MCH MCHC RDW Plt Count MPV Neut % (Auto) Lymph % (Auto) [place] % (Auto) Eos % (Auto) Baso % (Auto) Neut # (Auto) Lymph # (Auto) [place] # (Auto) Eos # (Auto) Baso # (Auto) Sodium Potassium Chloride Carbon Dioxide Anion Gap BUN Creatinine Est GFR ( Amer) Est GFR (Non-Af Amer) POC Glucose (mg/dL) 157 H Random Glucose Calcium Total Bilirubin AST ALT Alkaline Phosphatase Total Protein Albumin Globulin Albumin/Globulin Ratio Assessment & Plan (1) Chronic kidney disease with end stage renal failure on dialysis Assessment and Plan: End-stage renal disease on maintenance hemodialysis 3 times a week home missing dialysis noncompliance patient admitted with diarrhea Hyperkalemia noted in stat potassium order right now apparently was given some insulin but I am not sure if he was treated with Kayexalate I will check with the nurse right now Called for hemodialysis urgently Diabetes mellitus Hypertension Hyperphosphatemia Secondary hyperparathyroidism Recommendation Urgent dialysis Stat potassium now and give Kayexalate if still elevated waiting for the dialysis to start stat EKG Phosphorus binder Diarrhea work-up as per primary team and GI To get serum phosphorus and PTH Glycemic control Status: Acute (2) Diarrhea Status: Acute (3) Hyperkalemia Status: Acute (4) Abdominal pain Status: Acute
[2019-04-21 10:16] LABS: ALB/GLOB RATIO 0.6 (1.0-2.1); ALBUMIN 2.6 g/dL (3.5-5.0); CALCIUM 8.2 mg/dL (8.4-10.2)
[2019-04-21] MEDS ORDERED: Magnesium Sulfate 2 gm/50 ml 2 GM/50 ML BAG IVPB ONE (10:47)
[2019-04-21] MEDS: Insulin Lispro (humaLOG) 100 Units/ml Inj SC SCH ×4 (10:56→21:43)
[2019-04-21] MEDS: Multivitamin Vitamin B Complex (Nephro-Vite) Tab PO SCH (10:58)
[2019-04-21] MEDS: Pantoprazole 40 mg EC Tab PO SCH (10:59)
--- NOTE | 2019-04-21 17:35 | CARD ---
APPROVED REPORT Date of service: 04/21/2019 EKG Measurement Heart [id number] [id number] <Conclusion> Normal sinus rhythm Normal ECG
[2019-04-21 18:50] LABS: ALB/GLOB RATIO 0.7 (1.0-2.1); ALBUMIN 2.5 g/dL (3.5-5.0); CALCIUM 7.3 mg/dL (8.4-10.2)
[2019-04-22 05:48] LABS: BASO % 0.6 % (0.0-2.0); EOS # 0.2 K/uL (0.0-0.7); EOS % 2.5 % (0.0-4.0); HEMOGLOBIN 9.4 g/dL (12.0-18.0); LYMPH % 40.3 % (20.0-40.0); MEAN CELL VOLUME 78.6 fl (80.0-94.0); MEAN CORPUSCULAR HEMOGLOBIN 25.2 pg (27.0-31.0); MEAN CORPUSCULAR HGB CONC 32.1 g/dL (33.0-37.0); MEAN PLATELET VOLUME 8.2 fl (7.2-11.7); MONO # 0.5 K/uL (0.0-0.8); MONO % 6.6 % (0.0-10.0); NEUT # 3.8 K/uL (1.8-7.0); RBC 3.71 Mil/uL (4.40-5.90); RED CELL DISTRIBUTION WIDTH 18.7 % (11.5-14.5); WHITE BLOOD COUNT 7.5 K/uL (4.8-10.8)
[2019-04-22 05:53] LABS: ALB/GLOB RATIO 0.6 (1.0-2.1); ALBUMIN 2.3 g/dL (3.5-5.0); CALCIUM 7.2 mg/dL (8.4-10.2)
--- NOTE | 2019-04-22 06:43 | CP.PCM.PN ---
<Rosario Arango - Last Filed: 04/22/19 09:57> Subjective - Date & Time of Evaluation Date of Evaluation: 04/22/19 Time of Evaluation: 06:43 - Subjective Subjective: Patient seen and examined this morning with Dr Lake, reports feeling better, continue with diarrhea but less s/p HD yesterday, no overnight events reported. Objective - Vital Signs/Intake and Output Vital Signs (last 24 hours): Temp Pulse Resp BP Pulse Ox 98.3 F 65 18 149/87 94 L 04/22/19 05:52 04/22/19 05:52 04/22/19 05:52 04/22/19 05:52 04/22/19 05:52 - Medications Medications: Current Medications Amlodipine Besylate (Norvasc) 10 mg PO DAILY [facility] Last Admin: 04/21/19 10:59 Dose: 10 mg Atorvastatin Calcium (Lipitor) 10 mg PO HS [facility] Last Admin: 04/21/19 21:27 Dose: 10 mg Calcitriol (Rocaltrol) 0.25 mcg PO TID [facility] Last Admin: 04/21/19 18:18 Dose: 0.25 mcg Dextrose (Dextrose 50% Inj) 0 ml IV STAT PRN; Protocol PRN Reason: Hypoglycemia Protocol Dextrose (Glutose 15) 0 gm PO ONCE PRN; Protocol PRN Reason: Hypoglycemia Protocol Gabapentin (Neurontin) 100 mg PO TID [facility] Last Admin: 04/21/19 18:18 Dose: 100 mg Glucagon (Glucagen Diagnostic Kit) 0 mg IM STAT PRN; Protocol PRN Reason: Hypoglycemia Protocol Heparin Sodium (Porcine) (Heparin) 5,000 units SC Q12 [facility]; Protocol Last Admin: 04/21/19 21:28 Dose: 5,000 units Insulin Human Lispro (Humalog) 0 units SC ACHS [facility]; Protocol Last Admin: 04/21/19 21:43 Dose: Not Given Lactic Acid (Lac-Hydrin 12% Lotion (225 G)) 1 applic TOP DAILY [facility] Last Admin: 04/21/19 10:56 Dose: 1 applic Metoprolol Tartrate (Lopressor) 50 mg PO Q12 [facility] Last Admin: 04/21/19 21:27 Dose: 50 mg Ondansetron HCl (Zofran Inj) 4 mg IVP Q6 PRN PRN Reason: Nausea/Vomiting Pantoprazole Sodium (Protonix Ec Tab) 40 mg PO DAILY [facility] Last Admin: 04/21/19 10:59 Dose: 40 mg Vitamin B Complex/Vit C/Folic Acid (Nephro-Elsa) 1 tab PO DAILY [facility] Last Admin: 04/21/19 10:58 Dose: 1 tab - Labs Labs: 04/22/19 04:55 04/22/19 04:55 - Constitutional Appears: Non-toxic, No Acute Distress - Head Exam Head Exam: NORMAL INSPECTION - Eye Exam Eye Exam: EOMI, PERRL. absent: Nystagmus - ENT Exam ENT Exam: Mucous Membranes Moist - Respiratory Exam Respiratory Exam: Clear to Ausculation Bilateral, NORMAL BREATHING PATTERN. absent: Chest Wall Tenderness, Decreased Breath Sounds - Cardiovascular Exam Cardiovascular Exam: REGULAR RHYTHM, +S1, +S2 - GI/Abdominal Exam GI & Abdominal Exam: Soft, Normal Bowel Sounds. absent: Distended, Tenderness - Extremities Exam Extremities Exam: absent: Calf Tenderness, Pedal Edema - Neurological Exam Neurological Exam: Alert, Awake, CN II-XII Intact, Oriented x3 - Psychiatric Exam Psychiatric exam: Normal Mood - Skin Skin Exam: Dry, Warm Additional comments: R subclavian perma cath intact Assessment and Plan - Assessment and Plan (Free Text) Assessment: 48 yo male with h/o ESRD on HD admitted with Hyperkalemia and diarrhea. Plan: Hyperkalemia - resolved - K 4.8 - s/p HD last night - monitor labs Chronic diarrhea likely secondary to short bowel syndrome - Afebrile and no wbc - Dietary referral for short bowel diet - f/u c diff ESRD on HD - received HD last night - Custodial Aide consult- Dr. Rodríguez - resumed home medications. Hypertension - not controlled - stop lozartan due to hyperkalemia - start hydralazine q8h - resumed home medications DMII - Accucheck, SSI, hypoglycemia protocol - resume home medication DVT prophylaxis: - Heparin -Rest of plan as ordered Case seen and discussed with Dr Lake <Joel Lake - Last Filed: 04/24/19 08:09> Objective - Vital Signs/Intake and Output Vital Signs (last 24 hours): Temp Pulse Resp BP Pulse Ox 98.4 F 79 18 125/82 100 04/23/19 16:12 04/23/19 16:12 04/23/19 16:12 04/23/19 16:12 04/23/19 16:12 - Labs Labs: 04/23/19 05:35 04/23/19 05:35 Assessment and Plan - Assessment and Plan (Free Text) Assessment: Patient was personally seen and examined by me in rounds with residents. Available labs and diagnostic data reviewed. Case, Patient's condition and management plan discussed with residents in [facility]el[facility] ds. Agree with resident's progress note. Plan: As ordered.
--- NOTE | 2019-04-22 09:44 | CP.PCM.PN ---
Subjective - Date & Time of Evaluation Date of Evaluation: 04/22/19 Time of Evaluation: 09:41 - Subjective Subjective: RENAL s: seen and examined feels better today feels hungry no n/v o: vss gen: nad sclera: anicteric op: clear neck: supple cv: +s1+s2 no rub lungs: CTA b/l abd: Soft nt nd no organomegaly ext: no edema neuro: A+OX no focal deficit psych: nml affect skin: no rash ms: + amputation R tma labs and imaging reviewed imp: ESRD/ Hyperkalemia/ Anemia of renal disease/ secondary hyperpara plan: HD normally MWF but currently on TTS schedule k is improved epogen w/ HD on TTS continue calcitriol Objective - Vital Signs/Intake and Output Vital Signs (last 24 hours): Temp Pulse Resp BP Pulse Ox 98.2 F 64 18 138/91 H 100 04/22/19 08:00 04/22/19 08:00 04/22/19 08:00 04/22/19 08:00 04/22/19 08:00 - Medications Medications: Current Medications Amlodipine Besylate (Norvasc) 10 mg PO DAILY [facility] Last Admin: 04/21/19 10:59 Dose: 10 mg Atorvastatin Calcium (Lipitor) 10 mg PO HS [facility] Last Admin: 04/21/19 21:27 Dose: 10 mg Calcitriol (Rocaltrol) 0.25 mcg PO TID [facility] Last Admin: 04/21/19 18:18 Dose: 0.25 mcg Dextrose (Dextrose 50% Inj) 0 ml IV STAT PRN; Protocol PRN Reason: Hypoglycemia Protocol Dextrose (Glutose 15) 0 gm PO ONCE PRN; Protocol PRN Reason: Hypoglycemia Protocol Gabapentin (Neurontin) 100 mg PO TID [facility] Last Admin: 04/21/19 18:18 Dose: 100 mg Glucagon (Glucagen Diagnostic Kit) 0 mg IM STAT PRN; Protocol PRN Reason: Hypoglycemia Protocol Heparin Sodium (Porcine) (Heparin) 5,000 units SC Q12 [facility]; Protocol Last Admin: 04/21/19 21:28 Dose: 5,000 units Hydralazine HCl (Apresoline) 10 mg PO Q8H [facility] Insulin Human Lispro (Humalog) 0 units SC ACHS [facility]; Protocol Last Admin: 04/21/19 21:43 Dose: Not Given Lactic Acid (Lac-Hydrin 12% Lotion (225 G)) 1 applic TOP DAILY [facility] Last Admin: 04/21/19 10:56 Dose: 1 applic Metoprolol Tartrate (Lopressor) 50 mg PO Q12 [facility] Last Admin: 04/21/19 21:27 Dose: 50 mg Ondansetron HCl (Zofran Inj) 4 mg IVP Q6 PRN PRN Reason: Nausea/Vomiting Pantoprazole Sodium (Protonix Ec Tab) 40 mg PO DAILY [facility] Last Admin: 04/21/19 10:59 Dose: 40 mg Vitamin B Complex/Vit C/Folic Acid (Nephro-Elsa) 1 tab PO DAILY [facility] Last Admin: 04/21/19 10:58 Dose: 1 tab - Labs Labs: 04/22/19 04:55 04/22/19 04:55
[2019-04-22] MEDS: Insulin Lispro (humaLOG) 100 Units/ml Inj SC SCH ×4 (09:55→22:32)
[2019-04-22] MEDS: Multivitamin Vitamin B Complex (Nephro-Vite) Tab PO SCH (10:01)
[2019-04-22] MEDS: Pantoprazole 40 mg EC Tab PO SCH (10:03)
[2019-04-22] MEDS ORDERED: Magnesium Sulfate 2 gm/50 ml 2 GM/50 ML BAG IVPB ONE (12:49)
[2019-04-23 00:58] VITALS: RESP 18
[2019-04-23 06:03] LABS: HEMOGLOBIN 9.2 g/dL (12.0-18.0); MEAN CELL VOLUME 78.6 fl (80.0-94.0); MEAN CORPUSCULAR HEMOGLOBIN 25.5 pg (27.0-31.0); MEAN CORPUSCULAR HGB CONC 32.5 g/dL (33.0-37.0); RBC 3.6 Mil/uL (4.40-5.90); RED CELL DISTRIBUTION WIDTH 18.9 % (11.5-14.5); WHITE BLOOD COUNT 6.8 K/uL (4.8-10.8)
[2019-04-23 06:30] LABS: ALB/GLOB RATIO 0.7 (1.0-2.1); ALBUMIN 2.3 g/dL (3.5-5.0); CALCIUM 7.4 mg/dL (8.4-10.2)
[2019-04-23 08:55] VITALS: O2SAT 100
[2019-04-23] MEDS ORDERED: Epoetin Alfa 4000 UNIT/ML Inj SC SCH (09:00)
[2019-04-23] MEDS: Insulin Lispro (humaLOG) 100 Units/ml Inj SC SCH ×2 (09:12→14:51)
[2019-04-23] MEDS: Multivitamin Vitamin B Complex (Nephro-Vite) Tab PO SCH (09:16)
[2019-04-23] MEDS: Pantoprazole 40 mg EC Tab PO SCH (09:17)
--- NOTE | 2019-04-23 11:05 | CP.PCM.DIS ---
Provider - Provider Date of Admission: 04/21/19 00:04 Attending physician: Joel Lake MD Consults: 04/21/19 00:07 Nephrology Consult Stat Comment: Consulting Provider: Kobe Rodríguez Consulting Physician: Kobe Rodríguez Reason for Consult: esrd missed idalysis Time Spent in preparation of Discharge (in minutes): 37 Diagnosis - Discharge Diagnosis (1) Hyperkalemia Status: Acute (2) Diarrhea Status: Acute (3) Chronic kidney disease with end stage renal failure on dialysis Status: Acute (4) Hypomagnesemia Status: Acute (5) Abdominal pain Status: Acute (6) History of bowel resection Status: Acute Hospital Course - Lab Results Lab Results: Most Recent Lab Values WBC 6.8 K/uL (4.8-10.8) 04/23/19 05:35 RBC 3.60 Mil/uL (4.40-5.90) L 04/23/19 05:35 Hgb 9.2 g/dL (12.0-18.0) L 04/23/19 05:35 Hct 28.3 % (35.0-51.0) L 04/23/19 05:35 MCV 78.6 fl (80.0-94.0) L 04/23/19 05:35 MCH 25.5 pg (27.0-31.0) L 04/23/19 05:35 MCHC 32.5 g/dL (33.0-37.0) L 04/23/19 05:35 RDW 18.9 % (11.5-14.5) H 04/23/19 05:35 Plt Count 180 K/uL (130-400) 04/23/19 05:35 MPV 8.2 fl (7.2-11.7) 04/22/19 04:55 Neut % (Auto) 50.0 % (50.0-75.0) 04/22/19 04:55 Lymph % (Auto) 40.3 % (20.0-40.0) H 04/22/19 04:55 Finney % (Auto) 6.6 % (0.0-10.0) 04/22/19 04:55 Eos % (Auto) 2.5 % (0.0-4.0) 04/22/19 04:55 Baso % (Auto) 0.6 % (0.0-2.0) 04/22/19 04:55 Neut # (Auto) 3.8 K/uL (1.8-7.0) 04/22/19 04:55 Lymph # (Auto) 3.0 K/uL (1.0-4.3) 04/22/19 04:55 Finney # (Auto) 0.5 K/uL (0.0-0.8) 04/22/19 04:55 Eos # (Auto) 0.2 K/uL (0.0-0.7) 04/22/19 04:55 Baso # (Auto) 0.0 K/uL (0.0-0.2) 04/22/19 04:55 Sodium 133 mmol/l (132-148) 04/23/19 05:35 Potassium 4.8 MMOL/L (3.6-5.0) 04/23/19 05:35 Chloride 101 mmol/L (98-107) 04/23/19 05:35 Carbon Dioxide 23 mmol/L (22-30) 04/23/19 05:35 Anion Gap 14 (10-20) 04/23/19 05:35 BUN 27 mg/dl (9-20) H 04/23/19 05:35 Creatinine 5.4 mg/dl (0.8-1.5) H 04/23/19 05:35 Est GFR ( Amer) 14 04/23/19 05:35 Est GFR (Non-Af Amer) 11 04/23/19 05:35 POC Glucose (mg/dL) 103 mg/dL (65-110) 04/23/19 06:18 Random Glucose 91 mg/dL (75-110) 04/23/19 05:35 Calcium 7.4 mg/dL (8.4-10.2) L 04/23/19 05:35 Phosphorus 4.4 mg/dl (2.5-4.5) 04/22/19 04:55 Magnesium 1.4 MG/DL (1.6-2.3) L 04/23/19 05:35 Total Bilirubin 0.3 mg/dl (0.2-1.3) 04/23/19 05:35 AST 17 U/L (17-59) D 04/23/19 05:35 ALT 15 U/L (21-72) L D 04/23/19 05:35 Alkaline Phosphatase 90 U/L (38-126) 04/23/19 05:35 Total Protein 5.8 G/DL (6.3-8.2) L 04/23/19 05:35 Albumin 2.3 g/dL (3.5-5.0) L 04/23/19 05:35 Globulin 3.5 gm/dL (2.2-3.9) 04/23/19 05:35 Albumin/Globulin Ratio 0.7 (1.0-2.1) L 04/23/19 05:35 - Hospital Course Hospital Course: 48 yo male with history of ESRD with dialysis 3x per week (MWF, missed last saturday), CVA, diabetes, hypertension, SBO and ischemic bowel admitted with hyperkalemia. Nephro was consulted, urgent HD done, patient received treatment and potassium improved to normal limits. Treated for hypomagnesemia. Diarrhea and abdominal pain resolved. Patient receiving dialysis today and stable for discharge after treatment. Instructions to f/u with PCP and resume HD tomorrow to go back to scheduled cycles on MWF. Discharge Exam - Head Exam Head Exam: NORMAL INSPECTION - Eye Exam Eye Exam: EOMI, Normal appearance, PERRL - ENT Exam ENT Exam: Mucous Membranes Moist - Neck Exam Neck exam: Full Rom, Normal Inspection - Respiratory Exam Respiratory Exam: Clear to PA & Lateral, NORMAL BREATHING PATTERN. absent: Chest Wall Tenderness - Cardiovascular Exam Cardiovascular Exam: REGULAR RHYTHM, +S1, +S2. absent: Tachycardia - GI/Abdominal Exam GI & Abdominal Exam: Normal Bowel Sounds, Soft. absent: Distended, Guarding, Tenderness - Extremities Exam Extremities exam: pedal pulses present - Neurological Exam Neurological exam: Alert, CN II-XII Intact, Oriented x3 - Psychiatric Exam Psychiatric exam: Normal Mood - Skin Skin Exam: Dry, Warm Discharge Plan - Discharge Medications Prescriptions: Calcitriol 0.25 mcg PO TID 30 Days capsule hydrALAZINE [Apresoline] 10 mg PO Q8H 30 Days #90 tab - Follow Up Plan Condition: IMPROVED Disposition: HOME/ ROUTINE Instructions: Diarrhea in Adolescents and Adults, Hyperkalemia (DC), End Stage Kidney Disease (DC) Additional Instructions: continue dialysis MWF, resume tomorrow Abhinav 5/24/19 follow up with primary MD in 1 week [facility] visiting nurse [phone] Referrals: Ysabel Gee [Family Provider] - Kobe Rodríguez MD [Staff Provider] -
[2019-04-23] MEDS ORDERED: Magnesium Sulfate 2 gm/50 ml 2 GM/50 ML BAG IVPB ONE (11:24)
--- NOTE | 2019-04-23 15:38 | CP.PCM.PN ---
Subjective - Date & Time of Evaluation Date of Evaluation: 04/23/19 Time of Evaluation: 15:36 - Subjective Subjective: RENAL s: seen and examined feels better today feels hungry no n/v has chronic diarrhoea o: seen during HD vss gen: nad sclera: anicteric op: clear neck: supple cv: +s1+s2 no rub lungs: CTA b/l abd: Soft nt nd no organomegaly ext: no edema neuro: A+OX no focal deficit psych: nml affect skin: no rash ms: + amputation R tma labs and imaging reviewed imp: ESRD/ Hyperkalemia/ Anemia of renal disease/ secondary hyperpara plan: HD normally MWF but currently on TTS schedule. HD today and then can be d/c from renal perspective. pt was advised to go for routine scheduled outpt HD tomorrow as well k is improved epogen w/ HD on TTS continue calcitriol but dose as adjusted daily compliance to HD reinforced had d/w team Objective - Vital Signs/Intake and Output Vital Signs (last 24 hours): Temp Pulse Resp BP Pulse Ox 98.5 F 74 18 150/94 H 100 04/23/19 12:34 04/23/19 12:34 04/23/19 12:34 04/23/19 12:34 04/23/19 12:34 - Medications Medications: Current Medications Amlodipine Besylate (Norvasc) 10 mg PO DAILY [facility] Last Admin: 04/23/19 09:17 Dose: Not Given Atorvastatin Calcium (Lipitor) 10 mg PO HS [facility] Last Admin: 04/22/19 22:31 Dose: 10 mg Calcitriol (Rocaltrol) 0.25 mcg PO DAILY [facility] Dextrose (Dextrose 50% Inj) 0 ml IV STAT PRN; Protocol PRN Reason: Hypoglycemia Protocol Dextrose (Glutose 15) 0 gm PO ONCE PRN; Protocol PRN Reason: Hypoglycemia Protocol Epoetin Mitchell (Procrit) 4,000 unit SC TTS [facility] Last Admin: 04/23/19 11:28 Dose: 4,000 unit Gabapentin (Neurontin) 100 mg PO TID [facility] Last Admin: 04/23/19 14:50 Dose: Not Given Glucagon (Glucagen Diagnostic Kit) 0 mg IM STAT PRN; Protocol PRN Reason: Hypoglycemia Protocol Heparin Sodium (Porcine) (Heparin) 5,000 units SC Q12 [facility]; Protocol Last Admin: 04/23/19 09:16 Dose: Not Given Hydralazine HCl (Apresoline) 10 mg PO Q8H [facility] Last Admin: 04/23/19 09:14 Dose: Not Given Insulin Human Lispro (Humalog) 0 units SC [facility]; Protocol Last Admin: 04/23/19 14:51 Dose: Not Given Lactic Acid (Lac-Hydrin 12% Lotion (225 G)) 1 applic TOP DAILY [facility] Last Admin: 04/23/19 09:12 Dose: 1 applic Metoprolol Tartrate (Lopressor) 50 mg PO Q12 [facility] Last Admin: 04/23/19 09:16 Dose: Not Given Ondansetron HCl (Zofran Inj) 4 mg IVP Q6 PRN PRN Reason: Nausea/Vomiting Pantoprazole Sodium (Protonix Ec Tab) 40 mg PO DAILY [facility] Last Admin: 04/23/19 09:17 Dose: Not Given Vitamin B Complex/Vit C/Folic Acid (Nephro-Elsa) 1 tab PO DAILY [facility] Last Admin: 04/23/19 09:16 Dose: Not Given - Labs Labs: 04/23/19 05:35 04/23/19 05:35
[2019-04-23 16:13] VITALS: BP 125/82; PULSE 79; TEMP 98.4
== END 2019-04-23 17:00 | disposition home or self-care (01) | DRG 640 ==
LOC: H.ER 18:20 → H.ERHOLD 04-21 00:04 → H.TEL 04-21 06:39
PROVIDERS: ADMIT Internal Medicine; ATTEND Internal Medicine
PROC: 5A1D70Z Performance of Urinary Filtration, Intermittent, Less than 6 Hours Per Day (ICD-10-PCS; principal; 2019-04-21)
DX: E87.5 Hyperkalemia (principal); N18.6 End stage renal disease; I12.0 Hypertensive chronic kidney disease with stage 5 chronic kidney disease or end stage renal disease; K91.2 Postsurgical malabsorption, not elsewhere classified; N25.81 Secondary hyperparathyroidism of renal origin; Z99.2 Dependence on renal dialysis; Z88.0 Allergy status to penicillin; Z87.891 Personal history of nicotine dependence; Z86.73 Personal history of transient ischemic attack (TIA), and cerebral infarction without residual deficits; E78.5 Hyperlipidemia, unspecified; E78.00 Pure hypercholesterolemia, unspecified; E11.22 Type 2 diabetes mellitus with diabetic chronic kidney disease; K29.70 Gastritis, unspecified, without bleeding; E83.39 Other disorders of phosphorus metabolism; D63.1 Anemia in chronic kidney disease; E83.42 Hypomagnesemia; Y83.6 Removal of other organ (partial) (total) as the cause of abnormal reaction of the patient, or of later complication, without mention of misadventure at the time of the procedure